=== PATIENT | female | born 1945 | race Caucasian/White ===

== ENCOUNTER 2016-06-14 09:33 | Inpatient (IN) | payer MEDICARE, OTHER ==
[~2016-06-14] VITALS: Ht 147.3 cm; Wt 67.1 kg
[~2016-06-14 09:33] MED LIST: /ACETCOD2T PO; /TAMS4CA PO; ACET50TAOT PO; BACITAB3 PO; BUDE3CAP PO; CANASA; CENT1TAB PO; CETI10TA PO; CIPR500T89 PO; CODE30TA3 PO; COUM2.5T11 PO; COUM7.5T PO; DEMA20TA6 PO; FERR325T3 PO; FLAG500T PO; FLUO20CA8 PO; FURO20TA2; FURO20TA2 PO; GLUC500T; LASI20TA PO; LIAL1.2T PO; LOMO2.5T PO; LOPE2CA PO; LOPE2TAB PO; LORA10TA2 PO; MAGN64TASA PO; MESA24CASA PO; MUCI600T34 PO; OMEP40CA2 PO; PAXI20TA3 PO; PERC5TAB6 PO; POTA10CA PO; POTA10CA32 PO; PRED10TA PO; PROBCAP4 PO; PROZ20CA; QUESTRAN; RISATAB3 PO; SIMV10TA2; SULF500T2 PO; TESS100C PO; THERGRAN; TRAM50TA2 PO; TYLE167L PO; TYLE325T5 PO; VANC250C2 PO; VIBR100C PO; VICO5TAB; VITAMIN D50000 UNT; VITATAB11 PO; VITMTA PO
[2016-06-14] MEDS ORDERED: ONDANSETRON 4MG/2ML VIAL (J2405) As Ordered ONE (10:11)
[2016-06-14] MEDS ORDERED: MORPHINE 2 MG/ML 1ML SYRINGE As Ordered ONE (10:11)
[2016-06-14 10:17] LABS: BASO % 0.6 % (0.0-1.0); EOS # 0.2 K/mm3 (0.0-0.50); EOS % 2.9 % (0.0-3.0); LARGE UNSTAINED CELL # 0.2 K/mm3 (0.0-0.4); LARGE UNSTAINED CELL % 2.3 % (0.0-4.0); LYMPH # 1.4 K/mm3 (1.5-4.5); LYMPH % 18.9 % (24.0-44.0); MEAN CORPUSCULAR HEMOGLOBIN 26.8 pg (27.0-33.0); MEAN CORPUSCULAR HGB CONC 31.7 g/dl (32.0-36.5); MEAN CORPUSCULAR VOLUME 84.5 fl (80.0-96.0); MONO # 0.5 K/mm3 (0.0-0.8); MONO % 6.3 % (0.0-5.0); NEUTROPHILS % 69.1 % (36.0-66.0); PLATELET COUNT, AUTOMATED 534 k/mm3 (150-450); RED CELL DISTRIBUTION WIDTH 15.2 % (11.5-14.5); WHITE BLOOD COUNT 7.2 K/mm3 (4.0-10.0)
[2016-06-14 10:23] LABS: INR 1.52
--- NOTE | 2016-06-14 10:37 | REP ---
Portable chest x-ray: Single view. History: Shortness of breath. Comparison chest x-ray April 04, 2016. Findings: Right hemidiaphragm remains moderately elevated unchanged. EKG monitoring electrodes are seen. The lungs are otherwise clear. Pleural angles are sharp. Heart size is normal. The aorta is somewhat tortuous. Impression: Moderate elevation of the right hemidiaphragm unchanged from comparison study. Otherwise no acute disease. Signed by Leif Rico MD 06/14/2016 01:41 P
[2016-06-14 10:47] LABS: ALBUMIN 1.9 GM/DL (3.2-5.2); ALBUMIN/GLOBULIN RATIO 0.51 (1.00-1.93); ALKALINE PHOSPHATASE 158 U/L (45-117); ALT/SGPT 12 U/L (12-78); AMYLASE 79 U/L (25-115); ANION GAP 10 MEQ/L (8-16); AST/SGOT 11 U/L (15-37); BILIRUBIN,DIRECT 0.1 MG/DL (0.0-0.2); BILIRUBIN,TOTAL 0.3 MG/DL (0.2-1.0); BLOOD UREA NITROGEN 6 MG/DL (7-18); CALCIUM LEVEL 8.8 MG/DL (8.8-10.2); CARBON DIOXIDE LEVEL 27 MEQ/L (21-32); CHLORIDE LEVEL 108 MEQ/L (98-107); CREATININE FOR GFR 0.85 MG/DL (0.55-1.02); GLOMERULAR FILTRATION RATE > 60.0 (>45); GLUCOSE, FASTING 98 MG/DL (80-110); POTASSIUM SERUM 3.4 MEQ/L (3.5-5.1); SODIUM LEVEL 145 MEQ/L (136-145); TOTAL PROTEIN 5.6 GM/DL (6.4-8.2)
[2016-06-14] MEDS ORDERED: ISOVUE-370 76% 100ML VIAL (Q9967) As Ordered ONE (11:26)
[2016-06-14] MEDS ORDERED: TORS10TA3 PO (11:52)
[2016-06-14] MEDS ORDERED: WARF-21 PO (11:52)
--- NOTE | 2016-06-14 12:07 | REP ---
CT PULMONARY ANGIOGRAM: With IV contrast. HISTORY: Shortness of breath. COMPARISON STUDIES: April 04, 2016 Contrast dose: 100 mL of Isovue [address] TECHNIQUE: Helical scanning is acquired and overlapping 1.5 mm and contiguous 3 mm axial images are reformatted. In addition, a 3D work station is deployed to generate thick slab maximum intensity projection images in sagittal and coronal imaging projections. CT PULMONARY ANGIOGRAPHIC FINDINGS: There is good opacification of the pulmonary arterial tree. There is a large saddle embolus centrally occupying both the right and left main pulmonary arteries. The embolus extends in the left lower lobe pulmonary arterial branches centrally. In a similar in morphology although smaller in size than the massive saddle embolus visible on the recent prior study of April 04, 2016. The thoracic aorta enhances homogeneously and is normal in caliber and contour. No infiltrate is seen in the lung spence. There is no evidence of pleural or pericardial effusion. No hilar or mediastinal mass or adenopathy is seen. The gallbladder is dilated containing multiple large calculi and showing mild wall thickening. This is unchanged as well from the comparison study. Visualized upper abdominal structures are otherwise unremarkable. IMPRESSION: Large saddle embolus again noted similar morphologically except smaller in size, to that seen on the April 04, 2016 prior study. Recurrent saddle embolus versus subacute. Also noted is a dilated thick-walled gallbladder containing multiple large stones. This is unchanged from the prior study. Signed by Leif Rico MD 06/14/2016 01:43 P
--- NOTE | 2016-06-14 12:44 | REP ---
CT study of the abdomen and pelvis without and with IV contrast: Without oral contrast. History: Abdominal pain, left flank pain. Comparison CT study is from April 03, 2016. CT contrast dose: 100 mL of intravenous Isovue [address] findings: There are scattered surgical clips in the left abdomen. The lung bases are clear. Filling defect noted in the left lower lobe pulmonary artery tree as described on today's CT pulmonary angiogram consistent with pulmonary embolus. There is an eventration of the right hemidiaphragm as before. There is marked dilation of the gallbladder measuring up to 14 cm. There are multiple calcified gallstones in the gallbladder. The degree of distension is similar to that seen in April 03, 2016 images. There is evidence of a gallstone in the cystic duct in the portal region which measures 2 cm in greatest diameter. This is also visible on the prior study and is felt to be unchanged. No focal hepatic mass lesion is seen. No splenic abnormalities observed. No pancreatic lesion is seen. The common bile duct does not appear to be dilated. There are intrarenal calculi at the corticomedullary junction of both kidneys in multiple locations. The largest of these in the right kidney is in the lower pole measuring 3 mm. There is a 3 mm interpolar calculus on the left. There are four or five calculi in the right kidney and seven to eight calculi in the left. No hydronephrosis is seen on either side. This finding is essentially unchanged. Normal caliber aorta is seen. No retroperitoneal mass or adenopathy is seen. There is some thickening and enhancement of the wall of the colon throughout. No colonic distension is seen. This may reflect enterocolitis. There is a left colonic anastomoses in the left lower quadrant. No uterine or adnexal abnormality is seen. No urinary bladder pathology is noted. There appears to be a right inguinal hernia transmitting a lobule of intra-abdominal fat. Impression: 1. Pulmonary embolus visible in the left lower lobe pulmonary arteries on the abdominal CT study. 2. Hydrops of the gallbladder with multiple large gallstones including one large gallstone which appears to be impacted in the region of the cystic duct. No other biliary dilation seen. 3. Bilateral intrarenal nephrolithiasis again seen without hydronephrosis. 4. Status post left colonic resection and reanastomosis. 5. Evidence of enterocolitis with enhancement and mural thickening throughout the colon. No obstructive lesion. 6. Small right inguinal hernia suspected transmitting a lobule of abdominal fat. Signed by Leif Rico MD 06/14/2016 01:43 P
[2016-06-14] MEDS: NS 1,000 ML IV SCH (13:52)
[2016-06-14] MEDS ORDERED: HYDROCORTISONE 100 MG/2 ML VIAL (J1720) IV SCH (14:00)
[2016-06-14] MEDS ORDERED: ACETAMINOPHEN TAB 650MG DOSE (2X325MG) PO PRN (14:00)
[2016-06-14] MEDS ORDERED: CIPROFLOXACIN 400 MG in APPROPRIATE DILUENT 1 EA IV SCH (15:00)
--- NOTE | 2016-06-14 15:01 | HPEPDOC ---
Medical History and Physical Date of Admission Jun 14, 2016 at 12:57 History and Physical ATTENDING: Dr. Tidwell PCP: Dr Grazyna Long. CC: Abdominal pain HPI: 70yoF with a past medical history significant for ulcerative colitis, C. difficile 04/07, iron deficiency anemia, pulmonary embolism 04/07 on Coumadin anticoagulation who reports a 2 day history of increasing abdominal pain and loose stools. She states she has had 23 loose stools in the past 2 days. She denies fevers or chills. She is feeling weak. Denies any BERGER, CP, SOB, cough, palpitations, changes in bladder habits. Upon presentation to the hospital the patient was found to have , thus the hospitalist team was consulted. PMHx: Ulcerative colitis Iron deficiency anemia C. difficile colitis 04/07 Hiatal hernia Hemorrhoids GERD CHF. 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 One daughter . Unexpected deaths due to medical reasons: None. ROS: As noted in HPI, otherwise 11pt ROS of systems reviewed and unremarkable. PE: GEN: 70yoF, appears stated age. No acute distress lying flat on stretcher. Alert and oriented x 3. Pleasant, interactive. HEENT: Normocephalic, atraumatic. Pupils are equal, round, and reactive to light. Extraocular movements are intact. No nystagmus appreciated. Sclera are nonicteric. Conjunctiva without injection. Nose midline. Nasal turbinates without bogginess. EACs both patent BL. TMs both visualized and alvarez with good cone of light, no bulging or erythema. No facial asymmetry. Dry mucous membranes. Dentition fair. Pharynx pink and moist, no cobblestoning. Neck supple , trachea midline. No lymphadenopathy or thyromegaly appreciated. CHEST: Regular rate and rhythm, +S1, +S2 LUNGS: Clear to auscultation bilaterally. No wheezes, rales, or rhonchi. Breathing appears symmetric and easy. Patient is speaking in full sentences. No accessory muscle use. ABD: Flat, soft, tender to palpation across the upper abdomen and left upper and lower quadrant, non-distended. +Bowel sounds hypoactive. No rebound or guarding. No costovertebral angle tenderness. EXT: Pulses 2+ bilaterally dorsalis pedis and radial. No lower extremity edema appreciated. SKIN: Annetta, dry, warm. Capillary refill <2sec. No rashes. NEURO: Alert and oriented x 3. Cranial nerves III-XII are intact. No focal deficits appreciated. CXR: Moderate elevation of the right hemidiaphragm unchanged from comparison study. Otherwise no acute disease. CTA: Large saddle embolus again noted similar morphologically except smaller in size, to that seen on the April 04, 2016 prior study. Recurrent saddle embolus versus subacute. Also noted is a dilated thick-walled gallbladder containing multiple large stones. This is unchanged from the prior study. EKG: Sinus rhythm, [address] A&P 1. Pulmonary embolus visible in the left lower lobe pulmonary arteries on the abdominal CT study. 2. Hydrops of the gallbladder with multiple large gallstones including one large gallstone which appears to be impacted in the region of the cystic duct. No other biliary dilation seen. 3. Bilateral intrarenal nephrolithiasis again seen without hydronephrosis. 4. Status post left colonic resection and reanastomosis. 5. Evidence of enterocolitis with enhancement and mural thickening throughout the colon. No obstructive lesion. 6. Small right inguinal hernia suspected transmitting a lobule of abdominal fat. GI panel pending. A&P: 70yoF with a past medical history significant for ulcerative colitis, C. difficile 04/07, iron deficiency anemia, pulmonary embolism 04/07 on Coumadin anticoagulation who reports a 2 day history of increasing abdominal pain and loose stools. She states she has had 23 loose stools in the past 2 days. The patient will be admitted to PCU for at least [address] Tidwell's service. The patient is reviewed and discussed with Dr. Darling. The patient was also reviewed/discussed and examined with Dr. Sarah. 1. Abdominal pain/likely infectious colitis. GI panel pending to rule out recurrent C. difficile colitis. This is not felt consistent with ischemic colitis at this time. Recheck lactic acid and approximately 2 hours. IV fluids normal saline at 125 mL per hour. Nothing by mouth. Begin IV Cipro/Flagyl. Gen. surgery will continue to follow the patient, Dr. Araujo will follow the patient as he is familiar with the patient. 2. History of pulmonary embolism. Continue Coumadin 3.25 mg by mouth daily. Patient has had poor intake recently. INR is noted to be 1.52. Recheck INR daily. Adjust dose accordingly. 3. History of ulcerative colitis. Further recommendations as per general surgery. Dr. Araujo is familiar with the patient. 4. History of CHF. Torsemide is on hold at this time. 5. History of iron deficiency anemia. 6. Hypokalemia. Potassium is noted to be 3.4. PO supplement requested. DVT prophylaxis. On Coumadin. The patient is a Full Code. Vital Signs 113/59 68 18 99% room air 97.9 Laboratory Data Labs 24H Laboratory Tests 2 06/14/16 10:04: Activated Partial Thromboplast Time 28.1, Aspartate Amino Transf (AST/SGOT) 11L , Alanine Aminotransferase (ALT/SGPT) 12, Alkaline Phosphatase 158H, Total Bilirubin 0.3, Direct Bilirubin 0.1, Albumin 1.9L, Albumin/Globulin Ratio 0.51L , Amylase Level 79, Anion Gap 10, White Blood Count 7.2, Red Blood Count 4.56, Hemoglobin 12.2, Hematocrit 38.5, Mean Corpuscular Volume 84.5, Mean Corpuscular Hemoglobin 26.8L, Mean Corpuscular Hemoglobin Concent 31.7L, Red Cell Distribution Width 15.2H, Platelet Count 534H, Neutrophils (%) (Auto) 69.1H , Lymphocytes (%) (Auto) 18.9L, Monocytes (%) (Auto) 6.3H, Eosinophils (%) (Auto ) 2.9, Basophils (%) (Auto) 0.6, Neutrophils # (Auto) 5.0, Lymphocytes # (Auto) 1.4L, Monocytes # (Auto) 0.5, Eosinophils # (Auto) 0.2, Basophils # (Auto) 0.0, Calcium Level 8.8, Creatine Kinase MB 1.0, Creatine Kinase MB Relative Index 3.44, D-Dimer, Quantitative 1347.7H, Glomerular Filtration Rate > 60.0, Lactic Acid Level 3.2*H, Large Unclassified Cells # 0.2, Large Unclassified Cells % 2.3 , Lipase 132, Prothromb Time International Ratio 1.52, Prothrombin Time 18.4H, Total Creatine Kinase 29, Total Protein 5.6L, Troponin I < 0.02 CBC/BMP Laboratory Tests 06/14/16 10:04 Red Blood Count 4.56, Mean Corpuscular Volume 84.5, Mean Corpuscular Hemoglobin 26.8 L, Mean Corpuscular Hemoglobin Concent 31.7 L, Red Cell Distribution Width 15.2 H, Neutrophils (%) (Auto) 69.1 H, Lymphocytes (%) (Auto) 18.9 L, Monocytes (%) (Auto) 6.3 H, Eosinophils (%) (Auto) 2.9, Basophils (%) (Auto) 0.6, Neutrophils # (Auto) 5.0, Lymphocytes # (Auto) 1.4 L, Monocytes # (Auto) 0.5, Eosinophils # (Auto) 0.2, Basophils # (Auto) 0.0 Microbiology Microbiology 06/14/16 Influenza Virus Type A Antigen - Final, Complete 06/14/16 Influenza Virus Type B Antigen - Final, Complete Home Medications Scheduled Ferrous Sulfate (Ferrous Sulfate) 325 Mg Tab 325 MG PO BID Fluoxetine Hcl (Fluoxetine) 20 Mg Cap 20 MG PO DAILY Lactobacillus Acidophilus (Bacid) 1 Tab Tab 1 TAB PO DAILY Multivitamins *[facility] STOCKED* (Thera M Plus *[facility] STOCKED*) 1 Tab Tab 1 TAB PO DAILY Sulfasalazine (Sulfasalazine) 500 Mg Tab 500 MG PO QID Torsemide (Torsemide) 10 Mg Tab 10 MG PO DAILY TAKE SECOND DOSE IF WEIGHT IS UP MORE THEN 2LBS Warfarin Sod (Warfarin Sodium) 7.5 Mg Tab 3.75 MG PO QPM Allergies Coded Allergies: No Known Drug Allergy (Verified Allergy, Unknown, 08/26/12) Claudia Damon Jun 14, 2016 15:01
[2016-06-14] MEDS: metroNIDAZOLE 500 MG in APPROPRIATE DILUENT 1 EA IV SCH ×2 (16:00→23:00)
[2016-06-14] MEDS ORDERED: POTASSIUM CHLORIDE 10 MEQ SR TABLET PO SCH (16:00)
[2016-06-14] MEDS ORDERED: CIPROFLOXACIN/D5W 400 MG/200 ML BAG (J0744) As Ordered ONE (16:19)
[2016-06-14] MEDS: WARFARIN SOD 7.5 MG TAB PO SCH (17:00)
--- NOTE | 2016-06-14 17:31 | ECGEPIP ---
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
[2016-06-14] MEDS ORDERED: metroNIDAZOLE/NACL 500MG(5MG/ML)100 ML BAG (S0030) As Ordered ONE (17:38)
--- NOTE | 2016-06-14 18:30 | EDDOCDS ---
Physician Documentation [facility] Name: Munira Guerra Age: 70 yrs Sex: Female : 1945 Arrival Date: 06/14/2016 Time: 09:33 Bed Admit Hold Private MD: Roshan Long H. Disposition: 06/14 12:11 Critical Care:. ml Disposition: 06/14/16 12:09 Hospitalization ordered by Ellyn Darling for Inpatient Admission. Preliminary diagnosis are Abdominal and pelvic pain, Other ulcerative colitis - rule out c difficule infection, Pulmonary embolism - known, does not appear to be a change, Diarrhea, unspecified - with elevated lactic acid, Dehydration, Cholelithiasis. - Bed requested for PCU. - Status is Inpatient Admission. ms18 - Condition is Stable. - Problem is new. - Symptoms are unchanged. Historical: - Allergies: no known allergies; - Home Meds: 1. ferrous sulfate 325 mg (65 mg iron) Oral tab daily (Last dose: 06/14/2016 07:00) 2. warfarin 3.25mg Oral tab once daily (Last dose: 06/13/2016 17:00) 3. torsemide 20 mg oral tab 1 tab once daily (Last dose: 06/14/2016 07:00) 4. sulfasalazine 500 mg Oral TbEC 1 tab 4 times per day (Last dose: 06/14/2016 07:00) - PMHx: Anemia; CHF; Depression; GERD; Hernia; Ulcerative Colitis; PE; CDIFF; - PSHx: Colectomy, Partial; - Social history: Smoking status: Patient states was never smoker of tobacco. No barriers to communication noted, Speaks appropriately for age. - Family history: Not pertinent. - : The pt / caregiver states he / she is not on anticoagulants. Home medication list is obtained from the patient. - Exposure Risk Screening:: None identified. Vital Signs: 09:36 BP 128 / 67 RA Sitting (auto/reg); Pulse 103; Resp 18; Temp 97.9(O); Pulse Ox 99% on jrd R/A; Weight 62.14 kg / 137 lbs; Height 4 ft. 10 in. (147.32 cm); Pain 7/10; 10:11 BP 118 / 64 (auto/); ms18 10:11 Pulse 80 MON; Pulse Ox 99% ; ms18 10:26 BP 119 / 69 (auto/); ms18 10:26 Pulse 82 MON; Pulse Ox 98% ; ms18 10:41 BP 117 / 57 (auto/); ms18 10:41 Pulse 70 MON; Pulse Ox 98% ; ms18 10:56 BP 128 / 59 (auto/); ms18 10:56 Pulse 68 MON; Pulse Ox 98% ; ms18 11:11 BP 113 / 59 (auto/); ms18 11:11 Pulse 68 MON; Resp 18; Pulse Ox 99% ; ms18 11:26 BP 121 / 61 (auto/); ms18 11:26 Pulse 68 MON; Pulse Ox 98% ; ms18 11:43 BP 136 / 59 (auto/); ms18 11:45 Pulse 76 MON; Pulse Ox 98% ; ms18 11:56 BP 121 / 56 (auto/); ms18 11:56 Pulse 76 MON; Pulse Ox 99% ; ms18 12:11 BP 123 / 60 (auto/); ms18 12:11 Pulse 76 MON; Pulse Ox 99% ; ms18 12:26 BP 134 / 63 (auto/); ms18 12:26 Pulse 72 MON; Pulse Ox 98% ; ms18 12:32 Temp 99.6(TE); ms18 12:41 BP 125 / 68 (auto/); ms18 12:41 Pulse 74 MON; Pulse Ox 98% ; ms18 13:11 BP 156 / 73 (auto/); ms18 13:11 Pulse 80 MON; Pulse Ox 100% ; ms18 13:26 BP 136 / 60 (auto/); ms18 13:26 Pulse 76 MON; Pulse Ox 98% ; ms18 13:41 BP 124 / 60 (auto/); ms18 13:41 Pulse 76 MON; Pulse Ox 99% ; ms18 13:55 Pulse 76 MON; Pulse Ox 99% ; ms18 13:56 BP 122 / 62 (auto/); ms18 14:10 Pulse 74 MON; Pulse Ox 99% ; ms18 14:11 BP 113 / 57 (auto/); ms18 14:25 Pulse 72 MON; Pulse Ox 98% ; ms18 14:26 BP 128 / 58 (auto/); ms18 14:40 Pulse 72 MON; Pulse Ox 98% ; ms18 14:41 BP 130 / 55 (auto/); ms18 14:55 Pulse 72 MON; Pulse Ox 98% ; ms18 14:56 BP 125 / 60 (auto/); ms18 15:11 Pulse 74 MON; Pulse Ox 98% ; ms18 15:13 BP 123 / 59 (auto/); ms18 15:26 Pulse 72 MON; Pulse Ox 99% ; ms18 15:27 BP 118 / 54 (auto/); ms18 15:43 Pulse 74 MON; Pulse Ox 98% ; ms18 15:43 BP 121 / 58 (auto/); ms18 15:44 Pulse 74 MON; Pulse Ox 98% ; ms18 15:58 BP 110 / 54 (auto/); ms18 15:59 Pulse 74 MON; Pulse Ox 98% ; ms18 16:13 BP 115 / 59 (auto/); ms18 16:14 Pulse 74 MON; Pulse Ox 98% ; ms18 16:28 BP 127 / 55 (auto/); ms18 16:28 Pulse 82 MON; Pulse Ox 99% ; ms18 16:46 BP 140 / 62 (auto/); Pulse 76; Resp 18; Temp 97; Pulse Ox 98% ; Pain 6/10; ms18 16:58 BP 123 / 56 (auto/); ms18 16:59 Pulse 72 MON; Pulse Ox 97% ; ms18 17:13 BP 118 / 57 (auto/); ms18 17:14 Pulse 72 MON; Pulse Ox 97% ; ms18 17:28 BP 109 / 56 (auto/); ms18 17:29 Pulse 72 MON; Pulse Ox 98% ; ms18 17:43 BP 118 / 56 (auto/); ms18 17:44 Pulse 70 MON; Pulse Ox 97% ; ms18 17:58 BP 112 / 66 (auto/); ms18 17:59 Pulse 72 MON; Pulse Ox 98% ; ms18 18:13 BP 124 / 67 (auto/); ms18 18:14 Pulse 68 MON; Pulse Ox 99% ; ms18 09:36 Body Mass Index 28.63 (62.14 kg, 147.32 cm) jrd MDM: 09:44 IV Saline Lock ordered. ml6 09:44 Undress patient appropriately for examination ordered. ml6 09:45 ECG WITH READING ER PHYS+CARDIAG ordered. EDMS 09:46 BMP Ordered. EDMS 09:46 CBC with Diff Ordered. EDMS 09:46 Lipase Ordered. EDMS 09:46 Liver Profile Ordered. EDMS 09:46 CIP Ordered. EDMS 09:46 D-Dimer Quant Ordered. EDMS 09:46 Troponin Ordered. EDMS 09:46 Chest, 1 View Ordered. EDMS 09:52 Stool samples ordered. ml 09:54 Lactic Acid (Aquino tube on ice) Ordered. EDMS 09:54 NS 0.9% 1000 ml IV at 250 mL/hr continuous ordered. ml 09:54 Ondansetron 4 mg IVP once ordered. ml 09:54 morphine 2 mg IVP once ordered. ml 09:54 Field Applications Specialist/Pulse Ox/q 15 min VS ordered. ml 09:54 Rhythm Strip to chart ordered. ml 09:55 GASTROINTESTINAL (GI) PANEL Ordered. EDMS 10:08 AMYLASE Ordered. EDMS 10:14 PT & APTT Ordered. EDMS 10:46 Misc. Nursing Order ordered. ml 11:10 BMP Reviewed. ml 11:10 CBC with Diff Reviewed. ml 11:10 Liver Profile Reviewed. ml 11:10 D-Dimer Quant Reviewed. ml 11:10 Lactic Acid (Aquino tube on ice) Reviewed. ml 11:10 PT & APTT Reviewed. ml 11:10 Lipase Reviewed. ml 11:10 CIP Reviewed. ml 11:10 Troponin Reviewed. ml 11:10 AMYLASE Reviewed. ml 11:10 Chest, 1 View Reviewed. ml 11:12 CT Chest Angio R/O PE Ordered. EDMS 11:21 CT ABD & PELVIS W/O FOL BY WIT Ordered. EDMS 11:26 Obtain sample by nasopharyngeal swab ordered. ml 11:27 -Influenza A&B Rapid Antigen - Nose Ordered. EDMS 11:32 BED REQUEST+ADM ordered. EDMS 12:59 Admission / Observation Status ordered. EDMS 13:31 LACTIC ACID LEVEL, LACTATE Ordered. EDMS 13:45 Financial registration complete. mm15 13:45 [facility] Payment Agreement was scanned into [employer] and attached to record. mm15 13:59 NPO DIET ordered. EDMS Administered Medications: 10:25 Drug: Ondansetron 4 mg [ondansetron HCl 2 mg/mL intravenous solution (2 mL)] Route: kc3 IVP; Site: left antecubital; 13:00 Follow up: Response: No Adverse Reaction ms18 10:25 Drug: morphine 2 mg [morphine 2 mg/mL intravenous cartridge (1 mL)] Route: IVP; Site: kc3 left antecubital; 13:00 Follow up: Response: No Adverse Reaction; Pain is decreased ms18 10:26 Drug: NS 0.9% 1000 ml [sodium chloride 0.9 % intravenous solution] Route: IV; Rate: 250 kc3 mL/hr; Site: left antecubital; 11:16 Follow up: IVF increased to bolus rate at this time per ED doctor's request ms18 12:36 Follow up: IV Status: Completed infusion; IV Intake: 1000ml ms18 Critical Care Time: 12:11 Critical care time: Bedside Care: 90 minutes, Consultation: 10 minutes. Total time: 100 ml minutes Signatures: Dispatcher [employer] EDMS Hyun Denson MD MD ml Luis Miguel Wallace, RN RN ml6 Faith Dumont RN RN [id number] Radha Chávez mm15 Robyn Soto RN RN ms18 Armando Batista RN RN mts Roxie Santos RN kc3 The chart was reviewed and I authenticate all verbal orders and agree with the evaluation and treatment provided.Corrections: (The following items were deleted from the chart) 09:54 09:54 GASTROINTESTINAL (GI) PANEL+JARET ordered. EDMS EDMS 10:07 09:44 Field Applications Specialist/Pulse Ox/q 30 min VS ordered. ml6 js13 10:08 09:53 AMYLASE+LAB ordered. EDMS EDMS 10:14 09:47 PT & APTT+LAB ordered. EDMS EDMS 11:21 11:12 CT ABD & PELVIS WITH CONTRAST+CT ordered. EDMS EDMS 11:21 11:14 CT ABD & PELVIS W/O CONTRAST+CT ordered. EDMS EDMS 12:36 11:31 Straight cath ordered. ml ms18 Attachments: 13:45 [facility] Payment Agreement [id number] MTDD
--- NOTE | 2016-06-14 18:30 | EDDOCDS ---
Nurse's Notes [facility] Name: Carter Vega Age: 70 yrs Sex: Female : 1945 Arrival Date: 06/14/2016 Time: 09:33 Bed Admit Hold Private MD: Roshan Long H. Diagnosis: Abdominal and pelvic pain;Other ulcerative colitis-rule out c difficule infection;Pulmonary embolism-known, does not appear to be a change;Diarrhea, unspecified-with elevated lactic acid;Dehydration;Cholelithiasis Presentation: 06/14 09:36 Red Flag criteria, patient assessed and taken directly to a bed. 6 09:41 Presenting complaint: Patient states: states SOB, shaking, lower abd pain, states has [facility] been having issues with c-diff and PEs since March. Adult Sepsis Screening: The patient does not have new or worsening altered mentation. Patient's respiratory rate is less than 22. Systolic blood pressure is greater than 100. Patient has a qSOFA score of 0- Negative Sepsis Screen. Suicide/Homicide risk assessment- the patient denies having any suicidal and/or homicidal ideations and does not present with any other emotional, behavioral or mental health complaints. 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 Transition of care: patient was not received from another setting of care. 09:41 Acuity: FELIZ Level 3 ml6 09:41 Method Of Arrival: Walkin/Carried/Asstd 6 Triage Assessment: 13:01 Respiratory: Onset: The symptoms/episode began/occurred. ms18 Historical: - Allergies: no known allergies; - Home Meds: 1. ferrous sulfate 325 mg (65 mg iron) Oral tab daily (Last dose: 06/14/2016 07:00) 2. warfarin 3.25mg Oral tab once daily (Last dose: 06/13/2016 17:00) 3. torsemide 20 mg oral tab 1 tab once daily (Last dose: 06/14/2016 07:00) 4. sulfasalazine 500 mg Oral TbEC 1 tab 4 times per day (Last dose: 06/14/2016 07:00) - PMHx: Anemia; CHF; Depression; GERD; Hernia; Ulcerative Colitis; PE; CDIFF; - PSHx: Colectomy, Partial; - Social history: Smoking status: Patient states was never smoker of tobacco. No barriers to communication noted, Speaks appropriately for age. - Family history: Not pertinent. - : The pt / caregiver states he / she is not on anticoagulants. Home medication list is obtained from the patient. - Exposure Risk Screening:: None identified. Screenin:09 Screening information is obtained from the patient. Fall risk: No risks identified. js13 Assistance ADL's: requires no assistance with activities of daily living. Abuse/DV Screen: The patient / caregiver reports he/she is: not in a situation that causes fear, pain or injury. Nutritional screening: No deficits noted. Advance Directives: There is no active DNR order. home support is adequate. Assessment: 10:08 General: Appears in no apparent distress, Behavior is appropriate for age, cooperative. js13 Pain: Pain currently is 3 out of 10 on a pain scale. Neurological: Level of Consciousness is awake, alert. Cardiovascular: Rhythm is sinus rhythm Chest pain is denied. Respiratory: Airway is patent Respiratory effort is even, unlabored, Respiratory pattern is regular, symmetrical, Breath sounds are clear. GI: Abdomen is flat, non- distended Bowel sounds present X 4 quads. Abd is soft and non tender. Derm: Skin is pink, warm & dry. 11:17 General: Appears in no apparent distress, comfortable, Behavior is appropriate for age, ms18 cooperative, pleasant. Neurological: Level of Consciousness is awake, alert, obeys commands, Oriented to person, place, time. Respiratory: Airway is patent Respiratory effort is even, unlabored, Respiratory pattern is regular, symmetrical. Derm: Skin is pink, warm & dry. 12:15 General: Appears in no apparent distress, comfortable, Behavior is appropriate for age, ms18 cooperative, pleasant. General: Pt in no acute distress. Will continue to monitor pt. Pain: Pain currently is 3 out of 10 on a pain scale. Neurological: Level of Consciousness is awake, alert, obeys commands, Oriented to person, place, time. Respiratory: Airway is patent Respiratory effort is even, unlabored, Respiratory pattern is regular, symmetrical. Derm: Skin is pink, warm & dry. 13:47 General: Appears in no apparent distress, comfortable, Behavior is appropriate for age, ms18 cooperative. General: Awaiting room assignment at this time. Neurological: No deficits noted. Respiratory: Airway is patent Respiratory effort is even, unlabored. Derm: Skin is pink, warm & dry. 14:50 General: Appears in no apparent distress, comfortable, Pt in no acute distress. VSS. ms18 Will continue to monitor pt. Awaiting room assignment at this time. . Neurological: Level of Consciousness is awake, alert, obeys commands, Oriented to person, place, time. Respiratory: Airway is patent Respiratory effort is even, unlabored. Derm: Skin is pink, warm & dry. 15:50 General: Pt in no acute distress. VSS. Will continue to monitor pt. ms18 17:17 General: Called PCU, room is in the process of being cleaned. Loli DOBBINS states that it ms18 should be approx 20 mins. 18:15 General: Appears in no apparent distress, comfortable, Behavior is appropriate for age, ms18 cooperative, pleasant. General: Pt can go to PCU at this time. . Neurological: Level of Consciousness is awake, alert, obeys commands, Oriented to person, place, time. Respiratory: Airway is patent Respiratory effort is even, unlabored. Derm: Skin is pink, warm & dry. Vital Signs: 09:36 BP 128 / 67 RA Sitting (auto/reg); Pulse 103; Resp 18; Temp 97.9(O); Pulse Ox 99% on jrd R/A; Weight 62.14 kg; Height 4 ft. 10 in. (147.32 cm); Pain 7/10; 10:11 BP 118 / 64 (auto/); ms18 10:11 Pulse 80 MON; Pulse Ox 99% ; ms18 10:26 BP 119 / 69 (auto/); ms18 10:26 Pulse 82 MON; Pulse Ox 98% ; ms18 10:41 BP 117 / 57 (auto/); ms18 10:41 Pulse 70 MON; Pulse Ox 98% ; ms18 10:56 BP 128 / 59 (auto/); ms18 10:56 Pulse 68 MON; Pulse Ox 98% ; ms18 11:11 BP 113 / 59 (auto/); ms18 11:11 Pulse 68 MON; Resp 18; Pulse Ox 99% ; ms18 11:26 BP 121 / 61 (auto/); ms18 11:26 Pulse 68 MON; Pulse Ox 98% ; ms18 11:43 BP 136 / 59 (auto/); ms18 11:45 Pulse 76 MON; Pulse Ox 98% ; ms18 11:56 BP 121 / 56 (auto/); ms18 11:56 Pulse 76 MON; Pulse Ox 99% ; ms18 12:11 BP 123 / 60 (auto/); ms18 12:11 Pulse 76 MON; Pulse Ox 99% ; ms18 12:26 BP 134 / 63 (auto/); ms18 12:26 Pulse 72 MON; Pulse Ox 98% ; ms18 12:32 Temp 99.6(TE); ms18 12:41 BP 125 / 68 (auto/); ms18 12:41 Pulse 74 MON; Pulse Ox 98% ; ms18 13:11 BP 156 / 73 (auto/); ms18 13:11 Pulse 80 MON; Pulse Ox 100% ; ms18 13:26 BP 136 / 60 (auto/); ms18 13:26 Pulse 76 MON; Pulse Ox 98% ; ms18 13:41 BP 124 / 60 (auto/); ms18 13:41 Pulse 76 MON; Pulse Ox 99% ; ms18 13:55 Pulse 76 MON; Pulse Ox 99% ; ms18 13:56 BP 122 / 62 (auto/); ms18 14:10 Pulse 74 MON; Pulse Ox 99% ; ms18 14:11 BP 113 / 57 (auto/); ms18 14:25 Pulse 72 MON; Pulse Ox 98% ; ms18 14:26 BP 128 / 58 (auto/); ms18 14:40 Pulse 72 MON; Pulse Ox 98% ; ms18 14:41 BP 130 / 55 (auto/); ms18 14:55 Pulse 72 MON; Pulse Ox 98% ; ms18 14:56 BP 125 / 60 (auto/); ms18 15:11 Pulse 74 MON; Pulse Ox 98% ; ms18 15:13 BP 123 / 59 (auto/); ms18 15:26 Pulse 72 MON; Pulse Ox 99% ; ms18 15:27 BP 118 / 54 (auto/); ms18 15:43 Pulse 74 MON; Pulse Ox 98% ; ms18 15:43 BP 121 / 58 (auto/); ms18 15:44 Pulse 74 MON; Pulse Ox 98% ; ms18 15:58 BP 110 / 54 (auto/); ms18 15:59 Pulse 74 MON; Pulse Ox 98% ; ms18 16:13 BP 115 / 59 (auto/); ms18 16:14 Pulse 74 MON; Pulse Ox 98% ; ms18 16:28 BP 127 / 55 (auto/); ms18 16:28 Pulse 82 MON; Pulse Ox 99% ; ms18 16:46 BP 140 / 62 (auto/); Pulse 76; Resp 18; Temp 97; Pulse Ox 98% ; Pain 6/10; ms18 16:58 BP 123 / 56 (auto/); ms18 16:59 Pulse 72 MON; Pulse Ox 97% ; ms18 17:13 BP 118 / 57 (auto/); ms18 17:14 Pulse 72 MON; Pulse Ox 97% ; ms18 17:28 BP 109 / 56 (auto/); ms18 17:29 Pulse 72 MON; Pulse Ox 98% ; ms18 17:43 BP 118 / 56 (auto/); ms18 17:44 Pulse 70 MON; Pulse Ox 97% ; ms18 17:58 BP 112 / 66 (auto/); ms18 17:59 Pulse 72 MON; Pulse Ox 98% ; ms18 18:13 BP 124 / 67 (auto/); ms18 18:14 Pulse 68 MON; Pulse Ox 99% ; ms18 09:36 Body Mass Index 28.63 (62.14 kg, 147.32 cm) jrd Vitals: 09:36 Log In Time: June 14, 2016 at 09:27. RN notified that patient meets Red Flag jrd criteria. 09:36 RN notified that patient meets Red Flag criteria. jrd ED Course: 09:34 Patient visited by Niam Seaman PCA. jrd 09:34 Patient moved to Waiting jrd 09:35 Patient moved to I7 / 29 hs1 09:36 Roshan Long is Private Physician. jrd 09:36 Patient moved to Waiting jrd 09:36 Patient moved to 13 ml6 09:37 Patient visited by Nima Seaman PCA. jrd 09:43 Triage Initiated ml6 09:46 Hyun Denson MD is Attending Physician. ml 09:46 Patient visited by Hyun Denson MD. ml 10:00 Accompanied by Family Member, Patient has correct armband on for positive ct3 identification. Placed in gown. Bed in low position. Call light in reach. Side rails up X2. groundwater monitoring technician on. Pulse ox on. NIBP on. 10:00 EKG done. (by ED staff). Reviewed by Hyun Denson MD. ct3 10:07 CIP Sent. js13 10:07 D-Dimer Quant Sent. js13 10:07 Troponin Sent. js13 10:07 Lactic Acid (Aquino tube on ice) Sent. js13 10:07 BMP Sent. js13 10:07 CBC with Diff Sent. js13 10:07 Lipase Sent. js13 10:07 Liver Profile Sent. js13 10:09 Patient visited by Leatha Cabezas PCA. ct3 10:09 The patient / caregiver is instructed regarding the plan of care and ED course. js13 10:09 Inserted saline lock: 18 gauge in left antecubital area and blood collected. The js13 patient tolerated the procedure well. No procedures done that require assistance. Labs drawn. (by ED staff). Sent per order to lab. Labs/Blood culture drawn. 10:10 Patient visited by Faith Dumont RN. js13 10:20 PT & APTT Sent. ml6 10:47 Chest, 1 View Returned. EDMS 10:48 Patient visited by Ava Franklin PCA. jlf 11:11 Property :Personal belongings accompany Pt. ms18 11:16 Patient visited by Robyn Soto RN. ms18 11:51 Patient visited by Robyn Soto RN. ms18 12:04 -Influenza A&B Rapid Antigen - Nose Sent. ms18 12:08 Ellyn Darling is Hospitalizing Provider. ml 12:25 CT Chest Angio R/O PE Returned. EDMS 12:57 Patient visited by Robyn Soto RN. ms18 12:58 CT ABD & PELVIS W/O FOL BY WIT Returned. EDMS 12:59 Robyn Soto,RN is Primary Nurse. ms18 13:45 [facility] Payment Agreement was scanned into [employer] and attached to record. mm15 13:47 Patient visited by Robyn Soto RN. ms18 14:07 Chest, 1 View Returned. EDMS 15:17 Patient moved to Admit Hold js13 15:23 Patient visited by Robyn Soto RN. ms18 16:55 GASTROINTESTINAL (GI) PANEL Sent. ms18 17:17 Patient visited by Robyn Soto RN. ms18 17:50 EKG-ADULT Returned. EDMS 18:15 Patient visited by Robyn Soto RN. ms18 Administered Medications: 10:25 Drug: Ondansetron 4 mg [ondansetron HCl 2 mg/mL intravenous solution (2 mL)] Route: kc3 IVP; Site: left antecubital; 13:00 Follow up: Response: No Adverse Reaction ms18 10:25 Drug: morphine 2 mg [morphine 2 mg/mL intravenous cartridge (1 mL)] Route: IVP; Site: kc3 left antecubital; 13:00 Follow up: Response: No Adverse Reaction; Pain is decreased ms18 10:26 Drug: NS 0.9% 1000 ml [sodium chloride 0.9 % intravenous solution] Route: IV; Rate: 250 kc3 mL/hr; Site: left antecubital; 11:16 Follow up: IVF increased to bolus rate at this time per ED doctor's request ms18 12:36 Follow up: IV Status: Completed infusion; IV Intake: 1000ml ms18 Intake: 12:36 IV: 1000.00ml; Total: 1000.00ml. ms18 Order Results: Lab Order: [facility]; SPEC'M 06/14/16 10:04 Test: GLUCOSE, FASTING; Value: 98; Range: 80-110; Units: MG/DL; Status: F Test: BLOOD UREA NITROGEN; Value: 6; Range: 7-18; Abnormal: Below low normal; Units: MG/DL; Status: F Test: CREATININE FOR GFR; Value: 0.85; Range: 0.55-1.02; Units: MG/DL; Status: F Test: GLOMERULAR FILTRATION RATE; Value: > 60.0; Range: >45; Status: F Test: SODIUM LEVEL; Value: 145; Range: 136-145; Units: MEQ/L; Status: F Test: POTASSIUM SERUM; Value: 3.4; Range: 3.5-5.1; Abnormal: Below low normal; Units: MEQ/L; Status: F Test: CHLORIDE LEVEL; Value: 108; Range: 98-107; Abnormal: Above high normal; Units: MEQ/L; Status: F Test: CARBON DIOXIDE LEVEL; Value: 27; Range: 21-32; Units: MEQ/L; Status: F Test: ANION GAP; Value: 10; Range: 8-16; Units: MEQ/L; Status: F Test: CALCIUM LEVEL; Value: 8.8; Range: 8.8-10.2; Units: MG/DL; Status: F Test Note: ; Units are mL/min/1.73 m2 Chronic Kidney Disease Staging per NKF: Stage I & II GFR >=60 Normal to Mildly Decreased Stage III GFR 30-59 Moderately Decreased Stage IV GFR 15-29 Severely Decreased Stage V GFR <15 Very Little GFR Left ESRD GFR <15 on MECHANICAL PROJECT MANAGER Lab Order: CBC with Diff; SPEC'M 06/14/16 10:04 Test: WHITE BLOOD COUNT; Value: 7.2; Range: 4.0-10.0; Units: K/mm3; Status: F Test: RED BLOOD COUNT; Value: 4.56; Range: 4.00-5.40; Units: M/mm3; Status: F Test: HEMOGLOBIN; Value: 12.2; Range: 12.0-16.0; Units: g/dl; Status: F Test: HEMATOCRIT; Value: 38.5; Range: 36.0-47.0; Units: %; Status: F Test: MEAN CORPUSCULAR VOLUME; Value: 84.5; Range: 80.0-96.0; Units: fl; Status: F Test: MEAN CORPUSCULAR HEMOGLOBIN; Value: 26.8; Range: 27.0-33.0; Abnormal: Below low normal; Units: pg; Status: F Test: MEAN CORPUSCULAR HGB CONC; Value: 31.7; Range: 32.0-36.5; Abnormal: Below low normal; Units: g/dl; Status: F Test: RED CELL DISTRIBUTION WIDTH; Value: 15.2; Range: 11.5-14.5; Abnormal: Above high normal; Units: %; Status: F Test: PLATELET COUNT, AUTOMATED; Value: 534; Range: 150-450; Abnormal: Above high normal; Units: k/mm3; Status: F Test: NEUTROPHILS %; Value: 69.1; Range: 36.0-66.0; Abnormal: Above high normal; Units: %; Status: F Test: LYMPH %; Value: 18.9; Range: 24.0-44.0; Abnormal: Below low normal; Units: %; Status: F Test: MONO %; Value: 6.3; Range: 0.0-5.0; Abnormal: Above high normal; Units: %; Status: F Test: EOS %; Value: 2.9; Range: 0.0-3.0; Units: %; Status: F Test: BASO %; Value: 0.6; Range: 0.0-1.0; Units: %; Status: F Test: LARGE UNSTAINED CELL %; Value: 2.3; Range: 0.0-4.0; Units: %; Status: F Test: NEUTROPHILS #; Value: 5.0; Range: 1.8-7.7; Units: K/mm3; Status: F Test: LYMPH #; Value: 1.4; Range: 1.5-4.5; Abnormal: Below low normal; Units: K/mm3; Status: F Test: MONO #; Value: 0.5; Range: 0.0-0.8; Units: K/mm3; Status: F Test: EOS #; Value: 0.2; Range: 0.0-0.50; Units: K/mm3; Status: F Test: BASO #; Value: 0.0; Range: 0.0-0.2; Units: K/mm3; Status: F Test: LARGE UNSTAINED CELL #; Value: 0.2; Range: 0.0-0.4; Units: K/mm3; Status: F Lab Order: Lipase; SPEC'M 06/14/16 10:04 Test: LIPASE; Value: 132; Range: 73-393; Units: U/L; Status: F Lab Order: Liver Profile; SPEC'M 06/14/16 10:04 Test: AST/SGOT; Value: 11; Range: 15-37; Abnormal: Below low normal; Units: U/L; Status: F Test: ALT/SGPT; Value: 12; Range: 12-78; Units: U/L; Status: F Test: ALKALINE PHOSPHATASE; Value: 158; Range: 45-117; Abnormal: Above high normal; Units: U/L; Status: F Test: BILIRUBIN,TOTAL; Value: 0.3; Range: 0.2-1.0; Units: MG/DL; Status: F Test: BILIRUBIN,DIRECT; Value: 0.1; Range: 0.0-0.2; Units: MG/DL; Status: F Test: TOTAL PROTEIN; Value: 5.6; Range: 6.4-8.2; Abnormal: Below low normal; Units: GM/DL; Status: F Test: ALBUMIN; Value: 1.9; Range: 3.2-5.2; Abnormal: Below low normal; Units: GM/DL; Status: F Test: ALBUMIN/GLOBULIN RATIO; Value: 0.51; Range: 1.00-1.93; Abnormal: Below low normal; Status: F Lab Order: [facility]; [facility] Test: CPK CREATINE PHOSPHOKINASE; Value: 29; Range: 26-192; Units: U/L; Status: F Test: CK-MB VALUE MASS; Value: 1.0; Range: 0.0-3.6; Units: NG/ML; Status: F Test: MB/CK RELATIVE INDEX; Value: 3.44; Range: < OR =4; Status: F Test Note: ; DIAGNOSIS CRITERIA MMB ng/ml Relative Index (RI) NON-AMI < or = 5 N/A AQUINO ZONE > 5 < or = 4 AMI > 5 > 4 Lab Order: D-Dimer Quant; 06/14/16 10:04 Test: D-DIMER QUANT; Value: 1347.7; Range: <500; Abnormal: Above high normal; Units: ng/ml; Status: F Lab Order: Troponin; 06/14/16 10:04 Test: TROPONIN I; Value: < 0.02; Range: < 0.10; Units: NG/ML; Status: F Test Note: ; Troponin I Reference Interval for AdverseEvents LOCI: 99th Percentile= 0.00-0.045 ng/ml Risk Stratification: <= 0.10 ng/ml Decreased Risk for Adverse Clinical Events. 0.10-1.50 ng/ml Increased Risk for Adverse Clinical Events. Evaluation of additional criterion and/or repeat testing in 2-6 hours is suggested to rule out myocardial damage. >= 1.50 ng/ml Indicative of Myocardial Injury. Lab Order: Lactic Acid (Aquino tube on ice); 06/14/16 10:04 Test: LACTIC ACID LEVEL, LACTATE; Value: 3.2; Range: 0.4-2.0; Abnormal: Above upper panic limits; Units: MMOL/L; Status: F Lab Order: [facility]YLASE; [facility] Test: AMYLASE; Value: 79; Range: 25-115; Units: U/L; Status: F Lab Order: PT & APTT; SPEC'M 06/14/16 10:04 Test: PROTHROMBIN TIME; Value: 18.4; Range: 12.3-14.5; Abnormal: Above high normal; Units: SECONDS; Status: F Test: INR; Value: 1.52; Status: F Test: PARTIAL THROMBOPLASTIN TIME; Value: 28.1; Range: 26.6-37.1; Units: SECONDS; Status: F Test Note: ; THERAPUTIC HUMAN INR VALUES INDICATIONS NORMAL RANGES PROPHYLAXIS/TREATMENT OF: VENOUS THROMBOSIS 2.0-3.0 PULMONARY EMBOLISM 2.0-3.0 PREVENTION OF SYSTEMIC EMBOLISM FROM: TISSUE HEART VALVES 2.0-3.0 ACUTE MYOCARDIAL INFARCTION 2.0-3.0 VALVULAR HEART DISEASE 2.0-3.0 ATRIAL FIBRILLATION 2.0-3.0 MECHANICAL VALVES(HIGH RISK) 2.5-3.5 RECURRENT MYOCARDIAL INFARCTION 2.5-3.5 Lab Order: -Influenza A&B Rapid Antigen - Nose; SPEC'M 06/14/16 12:02 Test: INFLUENZA A RAPID SCR by ICA; Value: INFLUENZA A RESULTS NEGATIVE; Status: F Test: INFLUENZA A RAPID SCR by ICA; Value: Comments:; Status: F Test: INFLUENZA B RAPID SCR by ICA; Value: INFLUENZA B RESULTS NEGATIVE; Status: F Test Note: ; The Influenza test is a direct rapid immunoassay for the qualitative detection of Influenza viral antigen. Cell culture (Viral Culture) testing should be considered to confirm NEGATIVE results and to assist in detecting other viruses that can provide similar clinical symptoms. Please contact the lab within 24 [phone] ([phone]) if confirmatory testing is desired. 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; : 1945 Requested By: Hyun Denson; Order Number: [id number] Reading MD: Frederick Sharp; Measurements; Intervals [place]; Rate: 90 P: 38; ND: 141 QRS: -16; QRSD: 85 T: 14; QT: 364; QTc: 447; Interpretive Statements; SINUS RHYTHM; MINIMAL NONSPECIFIC ST DEPRESSION; PRWP; BASELINE ARTIFACT AND WANDERING BASELINE AFFECTS INTERPRETATION; ; ; Electronically Signed On 06-14-2016 17:31:14 EST by Frederick Sharp; Radiology Order: Chest, 1 View Test: Chest, 1 View REASON FOR EXAMINATION: Shortness of Breath; Portable chest x-ray: Single view.; ; History: Shortness of breath.; ; Comparison chest x-ray April 04, 2016.; ; Findings: Right hemidiaphragm remains moderately elevated unchanged. EKG; monitoring electrodes are seen. The lungs are otherwise clear. Pleural angles; are sharp. Heart size is normal. The aorta is somewhat tortuous.; ; Impression:; ; Moderate elevation of the right hemidiaphragm unchanged from comparison study.; Otherwise no acute disease.; ; ; Signed by; Leif Rico MD 06/14/2016 01:41 P; Radiology Order: CT Chest Angio R/O PE Test: CT Chest Angio R/O PE REASON FOR EXAMINATION: sob; CT PULMONARY ANGIOGRAM: With IV contrast.; ; HISTORY: Shortness of breath.; ; COMPARISON STUDIES: April 04, 2016; ; Contrast dose: 100 mL of Isovue 370 are administered intravenously.; ; CT TECHNIQUE: Helical scanning is acquired and overlapping 1.5 mm and contiguous; 3 mm axial images are reformatted. In addition, a 3D work station is deployed to; generate thick slab maximum intensity projection images in sagittal and coronal; imaging projections.; ; CT PULMONARY ANGIOGRAPHIC FINDINGS: There is good opacification of the pulmonary; arterial tree. There is a large saddle embolus centrally occupying both the; right and left main pulmonary arteries. The embolus extends in the left lower; lobe pulmonary arterial branches centrally. In a similar in morphology although; smaller in size than the massive saddle embolus visible on the recent prior study; of April 04, 2016. The thoracic aorta enhances homogeneously and is normal in; caliber and contour. No infiltrate is seen in the lung spence. There is no; evidence of pleural or pericardial effusion. No hilar or mediastinal mass or; adenopathy is seen. The gallbladder is dilated containing multiple large calculi; and showing mild wall thickening. This is unchanged as well from the comparison; study. Visualized upper abdominal structures are otherwise unremarkable.; ; IMPRESSION: Large saddle embolus again noted similar morphologically except; smaller in size, to that seen on the April 04, 2016 prior study. Recurrent; saddle embolus versus subacute. Also noted is a dilated thick-walled gallbladder; containing multiple large stones. This is unchanged from the prior study.; ; ; ; ; Signed by; Leif Rico MD 06/14/2016 01:43 P; Radiology Order: CT ABD & PELVIS W/O FOL BY WIT Test: CT ABD & PELVIS W/O FOL BY WIT REASON FOR EXAMINATION: Abdomen Pain, LEFT FLANK; CT study of the abdomen and pelvis without and with IV contrast: Without oral; contrast.; ; History: Abdominal pain, left flank pain.; ; Comparison CT study is from April 03, 2016.; ; CT contrast dose: 100 mL of intravenous Isovue 370 is administered.; ; CT findings: There are scattered surgical clips in the left abdomen. The lung; bases are clear. Filling defect noted in the left lower lobe pulmonary artery; tree as described on today's CT pulmonary angiogram consistent with pulmonary; embolus. There is an eventration of the right hemidiaphragm as before. There is; marked dilation of the gallbladder measuring up to 14 cm. There are multiple; calcified gallstones in the gallbladder. The degree of distension is similar to; that seen in April 03, 2016 images. There is evidence of a gallstone in the; cystic duct in the portal region which measures 2 cm in greatest diameter. This; is also visible on the prior study and is felt to be unchanged. No focal hepatic; mass lesion is seen. No splenic abnormalities observed. No pancreatic lesion is; seen. The common bile duct does not appear to be dilated. There are intrarenal; calculi at the corticomedullary junction of both kidneys in multiple locations.; The largest of these in the right kidney is in the lower pole measuring 3 mm.; There is a 3 mm interpolar calculus on the left. There are four or five calculi; in the right kidney and seven to eight calculi in the left. No hydronephrosis is; seen on either side. This finding is essentially unchanged. Normal caliber; aorta is seen. No retroperitoneal mass or adenopathy is seen. There is some; thickening and enhancement of the wall of the colon throughout. No colonic; distension is seen. This may reflect enterocolitis. There is a left colonic; anastomoses in the left lower quadrant. No uterine or adnexal abnormality is; seen. No urinary bladder pathology is noted. There appears to be a right; inguinal hernia transmitting a lobule of intra-abdominal fat.; ; Impression:; ; 1. Pulmonary embolus visible in the left lower lobe pulmonary arteries on the; abdominal CT study.; ; 2. Hydrops of the gallbladder with multiple large gallstones including one large; gallstone which appears to be impacted in the region of the cystic duct. No; other biliary dilation seen.; ; 3. Bilateral intrarenal nephrolithiasis again seen without hydronephrosis.; ; 4. Status post left colonic resection and reanastomosis.; ; 5. Evidence of enterocolitis with enhancement and mural thickening throughout; the colon. No obstructive lesion.; ; 6. Small right inguinal hernia suspected transmitting a lobule of abdominal; fat.; ; ; Signed by; Leif Rico MD 06/14/2016 01:43 P; Outcome: 12:09 Decision to Hospitalize by Provider. 12:15 CT Study completed. [facility] 13:00 Discharge Assessment: patient administered narcotics - yes. Patient was admitted to the [address] or transferred to another facility. 16:59 The following High Risk Discharge criteria are identified: None. Admitted to PCU [facility] accompanied by nurse, accompanied by tech, family with patient, via stretcher, on monitor, with chart. Condition: good Condition: stable. 18:28 Patient left the ED. [facility] Signatures: Dispatcher [employer] EDMS Hyun Denson MD MD ml Lowe, Matthew, RN RN ml6 Lauren Gonzalez RN RN hs1 Leatha Cabezas, OUTSIDE PLANT ENGINEER OUTSIDE PLANT ENGINEER ct3 Faith Dumont,MU RN js13 Radha Chávez mm15 Ava Franklin, OUTSIDE PLANT ENGINEER OUTSIDE PLANT ENGINEER jlf Robyn Soto RN RN [id number] Nima Seaman, OUTSIDE PLANT ENGINEER OUTSIDE PLANT ENGINEER jrd Roxie Santos,MU RN kc3 Corrections: (The following items were deleted from the chart) 10:08 10:07 AMYLASE+LAB sent. renetta NI 10:14 10:07 PT & APTT+LAB sent. renetta NI MTDD
[2016-06-14 18:40] VITALS: BP 125/57
--- NOTE | 2016-06-14 18:54 | CR ---
DATE OF CONSULTATION: 06/14/2016 CHIEF COMPLAINT: Shortness of breath and abdominal pain. HISTORY OF PRESENT ILLNESS: The patient is a 70-year-old female with a history of ulcerative colitis and Clostridium (C) difficile, most recently on April 07, presents to the emergency room (ER) with history of increasing abdominal pain and some loose stools. She claims has had about 23 or more loose stools in the past 24 hours. She says that there is some blood in it but no blood when she is actually wiping. She does have a history of hemorrhoids, but she does not feel like this in the same type of bleeding that she had with her hemorrhoids. Nausea. No vomiting. Abdominal pain mainly on the left side of her abdomen, radiating around to the left flank, even down the left leg. No problems with headache, chest pain, shortness of breath, or changes in bladder habits. She has had similar symptoms to this in the past with ulcerative colitis. She does not feel like her ulcerative colitis has ever been fully treated. She is currently under the care of Dr. Kiran, who started her on sulfasalazine for this. She has not used steroids in the past, and she has had a left hemicolectomy due to her ulcerative colitis, by Dr. Araujo in the past as well. PAST MEDICAL HISTORY: 1. Ulcerative colitis. 2. Iron deficient anemia. 3. C. Difficile. 4. Hiatal hernia. 5. Hemorrhoids. 6. Gastroesophageal reflux disease (GERD). 7. Congestive heart failure (CHF). 8. Depression. 9. Saddle pulmonary embolism PAST SURGICAL HISTORY: 1. Partial colectomy in 2006. 2. Colostomy reversal. 3. Rectocele repair. 4. Tonsillectomy. 5. Right total knee repair. 6. Last colonoscopy was November [address] Araujo MEDICATIONS: Please see medical reconciliation. ALLERGIES: None. SOCIAL HISTORY: Denies any drug, alcohol, tobacco use. FAMILY HISTORY: Noncontributory. REVIEW OF SYSTEMS: Pertinent positives and negatives stated in history of present illness (HPI). PHYSICAL EXAMINATION: GENERAL: Alert and oriented times three. No acute distress. VITAL SIGNS: Blood pressure 115/79, pulse 99, respirations 22, temperature 98.6, pulse oximetry 93% 2 liters. HEENT: Pupils equally round and reactive to light accommodation. HEART: S1, S2, regular rate and rhythm. LUNGS: Clear to auscultation bilaterally. ABDOMEN: Soft, tender to palpation, left abdomen. No rebounding, guarding, or rigidity. EXTREMITIES: Bilateral lower extremity pitting edema. LABORATORY DATA: White count 7.2, hemoglobin 12.2, platelets 534. Lactic acid 3.2, potassium 3.4, albumin 1.9, lipase 132. IMAGING STUDIES: CT abdomen and pelvis shows a pulmonary embolism in the left lower lobe pulmonary arteries. Hydrops of the gallbladder with multiple large gallstones, including one large gallstone that appears to be impacted in the region of the cystic duct. No other signs of biliary ductal dilatation. Bilateral intrarenal nephrolithiasis without hydronephrosis. Evidence of enterocolitis with enhancement and mural thickening throughout the colon No signs of obstructing lesions. Small right inguinal hernia with lobule of abdominal fat. ASSESSMENT AND PLAN: Again, the patient is a 70-year-old female with history of ulcerative colitis and recently Clostridium (C) difficile colitis, presenting with increasing abdominal pain and multiple episodes of diarrhea. At this time, it appears that the patient is also dehydrated due to all the diarrhea. She is hemoconcentrated. This colitis could be secondary to infectious versus inflammatory. Unlikely to be ischemic component to this. Recommendation at this time would be to start her on antibiotics empirically in case this is related to C. difficile. Also will start her on some steroids for probable exacerbation of ulcerative colitis. I have discussed this case with Dr. Araujo, who has taken care of her in the past. He is very well familiar with her. He also agreed with this plan. He is also going to take over her care starting tomorrow morning.
[2016-06-14] MEDS: MULTIVITAMINS/MINERALS THERAP 1 TAB PO SCH (19:01)
[2016-06-14] MEDS: LACTOBACILLUS ACIDOPHILUS CAP (BACID) PO SCH (19:01)
[2016-06-14] MEDS: FLUoxetine 20 MG CAP PO SCH (19:02)
[2016-06-14] MEDS: HYDROCORTISONE 100 MG/2 ML VIAL (J1720) IV SCH (19:03)
[2016-06-14 20:00] VITALS: BP 104/51
[2016-06-14] MEDS: FERROUS SULFATE 325MG TAB PO SCH (21:19)
[2016-06-14] MEDS: VANCOMYCIN ORAL SOL 250MG/5ML ORAL SYRINGE PO SCH (23:00)
[2016-06-14 23:59] VITALS: BP 108/59
[2016-06-15] MEDS: HYDROCORTISONE 100 MG/2 ML VIAL (J1720) IV SCH ×2 (02:56→15:58)
[2016-06-15] MEDS: NS 1,000 ML IV SCH ×5 (02:57→20:10)
[2016-06-15] MEDS: VANCOMYCIN ORAL SOL 250MG/5ML ORAL SYRINGE PO SCH ×3 (06:10→18:31)
[2016-06-15 06:11] LABS: BASO % 0.2 % (0.0-1.0); EOS % 0.2 % (0.0-3.0); LARGE UNSTAINED CELL % 0.6 % (0.0-4.0); LYMPH # 0.7 K/mm3 (1.5-4.5); LYMPH % 11.4 % (24.0-44.0); MEAN CORPUSCULAR HEMOGLOBIN 26.8 pg (27.0-33.0); MEAN CORPUSCULAR HGB CONC 31.5 g/dl (32.0-36.5); MEAN CORPUSCULAR VOLUME 85.2 fl (80.0-96.0); MONO # 0.2 K/mm3 (0.0-0.8); MONO % 4.2 % (0.0-5.0); NEUTROPHILS # 4.8 K/mm3 (1.8-7.7); NEUTROPHILS % 83.3 % (36.0-66.0); RED CELL DISTRIBUTION WIDTH 15.2 % (11.5-14.5); WHITE BLOOD COUNT 5.7 K/mm3 (4.0-10.0)
[2016-06-15 06:17] LABS: INR 1.52
[2016-06-15 06:19] LABS: PLATELET COUNT, AUTOMATED 434 k/mm3 (150-450)
[2016-06-15 06:35] LABS: ALBUMIN 1.6 GM/DL (3.2-5.2); ALKALINE PHOSPHATASE 129 U/L (45-117); ALT/SGPT 9 U/L (12-78); ANION GAP 8 MEQ/L (8-16); AST/SGOT 10 U/L (15-37); BILIRUBIN,TOTAL 0.3 MG/DL (0.2-1.0); BLOOD UREA NITROGEN 6 MG/DL (7-18); CALCIUM LEVEL 8.2 MG/DL (8.8-10.2); CARBON DIOXIDE LEVEL 24 MEQ/L (21-32); CHLORIDE LEVEL 115 MEQ/L (98-107); CREATININE FOR GFR 0.68 MG/DL (0.55-1.02); GLOMERULAR FILTRATION RATE > 60.0 (>45); GLUCOSE, FASTING 92 MG/DL (80-110); POTASSIUM SERUM 3.2 MEQ/L (3.5-5.1); SODIUM LEVEL 147 MEQ/L (136-145); TOTAL PROTEIN 4.8 GM/DL (6.4-8.2)
[2016-06-15] MEDS ORDERED: POTASSIUM CHLORIDE 10 MEQ SR TABLET PO ONE (07:45)
[2016-06-15 08:00] VITALS: BP 122/57
[2016-06-15] MEDS: FERROUS SULFATE 325MG TAB PO SCH ×2 (08:17→20:10)
[2016-06-15] MEDS: FLUoxetine 20 MG CAP PO SCH (08:17)
[2016-06-15] MEDS: LACTOBACILLUS ACIDOPHILUS CAP (BACID) PO SCH (08:17)
[2016-06-15] MEDS: metroNIDAZOLE 500 MG in APPROPRIATE DILUENT 1 EA IV SCH ×2 (08:17→15:58)
[2016-06-15] MEDS: MULTIVITAMINS/MINERALS THERAP 1 TAB PO SCH (08:17)
[2016-06-15] MEDS ORDERED: HEPARIN DRIP 25,000 UNITS in APPROPRIATE DILUENT 1 EA IV SCH (08:50)
[2016-06-15] MEDS ORDERED: HEPARIN SOD (PORCINE) 5000 UNITS/ML VIAL IV PRN (09:00)
--- NOTE | 2016-06-15 09:14 | IPN ---
DATE: 06/15/2016 The patient is seen and examined at the bedside. The chart has been reviewed. She continues to complain of right upper and lower quadrant abdominal discomfort when she has a bowel movement. She has had four bowel movements yesterday. Continues to be watery, nonbloody, and nonmucusy. No fever or chills overnight. Telemetry was unremarkable. Remains in sinus rhythm. Lactic acid has improved to normal. No other issues per nursing. Denies nausea, vomiting, chest pain, pressure or tightness, lightheadedness or dizziness. Temperature 96, pulse 74, respiratory rate 18, blood pressure 108/59, 85% on room air. Generally, patient is awake, alert, and oriented times three, answering questions appropriately. Lungs are clear to auscultation. No wheezing, rales or rhonchi. Heart: S1, S2. Sinus rhythm. Abdomen soft. Slightly tender in the left upper and lower quadrants. No rebound or guarding. No hepatosplenomegaly. No rigidity. Extremities: Bilateral 1+ pitting edema. White count 5.7, hemoglobin 10, hematocrit 34 and platelet count 434. Sodium 147, potassium 3.2, chloride 115, bicarbonate 24, BUN 6, creatinine 0.68, glucose 92, lactic acid 1.2, calcium 8.2, total bilirubin 0.3, AST 10, ALT 9, alkaline phosphatase 129. Microbiology: Clostridium difficile positive. Imaging Studies: CT of abdomen and pelvis on 06/14/2016 shows pulmonary embolus (PE) visible left lower pulmonary artery. Multiple gallstones, one impacted in the cystic duct. No other biliary dilatation. Bilateral intrarenal nephrolithiasis without hydronephrosis. Reanastomosis. Evidence of enterocolitis. Small right inguinal hernia transmitting a lobule of abdominal fat. CT of chest with large saddle embolus again noted morphologically except smaller in size than March. Recurrent saddle embolus versus subacute with dilated thick walled gallbladder containing multiple stones unchanged from prior study. ASSESSMENT AND PLAN: This is a 70-year-old female with history of deep vein thrombosis (DVT) on chronic Coumadin currently subtherapeutic at 1.5, chronic obstructive pulmonary disease on chronic oxygen, congestive heart failure, asthma, anxiety, depression, reflux and hyperlipidemia admitted due to complaints of shortness of breath and found to have a saddle embolus with subtherapeutic INR, history of congestive heart failure currently on Lasix and spironolactone and C. Difficile colitis. CURRENT ISSUES: 1. Saddle embolus, currently with subtherapeutic INR. Patient will be placed on intravenous heparin drip to target INR of 2-3. The patient has no contraindication to anticoagulation. Will continue with current bridge therapy until patient is therapeutic. 2. Clostridium difficile colitis with dehydration and electrolyte abnormalities with low potassium. The patient will be continued on current oral vancomycin, IV fluid hydration and monitor for respiratory distress. Currently on hydrocortisone. 3. Incidental finding of multiple gallstones with normal liver function tests. Continue to monitor for abdominal pain in the right upper quadrant or epigastric area. May advance diet for now. General surgeon Dr. Sarah has seen the patient. Dr. Araujo to follow this morning. Will obtain HIDA scan if needed and confirm with ultrasound of the gallbladder. 4. Congestive heart failure appears to be compensated for now. Monitor for decompensation due to intravenous fluids being given for severe dehydration and hypernatremia. [facility]
[2016-06-15 12:00] VITALS: BP_SYST 106; BP_SYST 108; BP_SYST 52; BP_DIAS 52
[2016-06-15 16:00] VITALS: BP 139/64
--- NOTE | 2016-06-15 17:20 | IPNPDOC ---
Assessment/Plan Date Seen Date Seen The patient was seen on 06/15/16. Problems: (1) Diarrhea Status: Acute General Surgery Problem Txt: Patient reporting episodes today. (2) C. difficile colitis Status: Acute General Surgery Problem Txt: Stool sample came back positive for C. diff. Continue Antibiotics. (3) Ulcerative colitis Status: Acute General Surgery Problem Txt: Patient has history of. Continuing steroids at this time. Plan / VTE VTE Prophylaxis Ordered?: Yes Plan Plan Text Recommend to continue Metronidazole and Vancomycin at this time for Clostridium difficile. Monitor WBC count, remains low at 5.7 06/15/16. Continue steroids for possible exacerbation of ulcerative colitis. Continue to monitor patient as needed while in hospital for other medical problems. Monitor diarrhea. Subjective CC/HPI The patient is a 70-year-old female admitted with a reason for visit of Diarrhea. Patient has long history of ulcer colitis. Patient has history of Clostridium difficile. Patient presented to ER after having 3 episodes of diarrhea over 24 hour period. Has history of left hemicolectomy. Patient reports still having episodes of diarrhea today. About 2-3 episodes this morning. Patient is not noticed any blood in stool. Stool is mostly liquid with some solid. Pain is resolving this morning. Patient has been afebrile since in the hospital. Denies nausea and vomiting. General: Denies: Chills, Fatigue, Night Sweats Constitutional: Denies: Fever, Malaise Eyes: Denies: Pain, Vision change ENT: Denies: Ear Pain Skin: Denies: Lesions, Rash Pulmonary: Denies: Cough, Dyspnea Cardiovascular: Denies: Chest Pain, Palpitations Gastrointestinal: Reports: Diarrhea, Denies: Nausea, Vomiting Genitourinary: Denies: Dysuria, Frequency, Incontinence Hematologic: Denies: Bleeding Excessively, Bruising Psych: Reports: Mood Normal, Denies: Anxiety, Depression Objective EYE EXAM: : EOMI: PERRLA ENT EXAM: : Atraumatic Neck Exam: : SuppleNo: JVD ABDOMEN EXAM: : SoftNo: Tenderness Extremity Exam: : Normal pulsesNo: Swelling Neuro Exam: : Normal Speech VS/I&O Vital Sign - Last 24 Hours 06/14/16 06/14/16 06/14/16 06/14/16 18:40 20:00 20:00 23:59 Temp 97.0 96.7 96.0 Pulse 73 72 74 Resp 18 20 18 B/P 125/57 104/51 108/59 Pulse Ox 98 97 95 O2 Delivery Room Air Room Air Room Air Room Air 06/15/16 06/15/16 06/15/16 06/15/16 00:00 08:00 08:00 11:52 Temp 95.3 Pulse 89 Resp 18 B/P 122/57 Pulse Ox 98 O2 Delivery Room Air Room Air Room Air Room Air 06/15/16 06/15/16 12:00 16:00 Temp 95.1 94.9 Pulse 70 67 Resp 18 20 B/P 108/52 139/64 Pulse Ox 98 98 O2 Delivery Room Air Room Air I&O- Last 24 Hours up to 6 AM 06/15/16 06:00 Intake Total 1475 ml Output Total 200 ml Balance 1275 ml Labs 24H Laboratory Tests 2 06/15/16 05:58: Activated Partial Thromboplast Time 30.8, Blood Urea Nitrogen 6L, Creatinine 0.68, Sodium Level 147H, Potassium Level 3.2L, Chloride Level 115H, Carbon Dioxide Level 24, Calcium Level 8.2L, Aspartate Amino Transf (AST/SGOT) 10L, Alanine Aminotransferase (ALT/SGPT) 9L, Alkaline Phosphatase 129H, Total Bilirubin 0.3, Total Protein 4.8L, Albumin 1.6L, Albumin/Globulin Ratio 0.50L, Anion Gap 8, White Blood Count 5.7, Red Blood Count 4.00, Hemoglobin 10.7L, Hematocrit 34.1L, Mean Corpuscular Volume 85.2, Mean Corpuscular Hemoglobin 26.8L, Mean Corpuscular Hemoglobin Concent 31.5L, Red Cell Distribution Width 15.2H, Platelet Count 434#, Neutrophils (%) (Auto) 83.3H, Lymphocytes (%) (Auto ) 11.4L, Monocytes (%) (Auto) 4.2, Eosinophils (%) (Auto) 0.2, Basophils (%) ( Auto) 0.2, Neutrophils # (Auto) 4.8, Lymphocytes # (Auto) 0.7L, Monocytes # ( Auto) 0.2, Eosinophils # (Auto) 0.0, Basophils # (Auto) 0.0, Glomerular Filtration Rate > 60.0, Large Unclassified Cells # 0.0, Large Unclassified Cells % 0.6, Prothromb Time International Ratio 1.52, Prothrombin Time 18.4H CBC/BMP Laboratory Tests 06/15/16 05:58 Calcium Level 8.2 L, Aspartate Amino Transf (AST/SGOT) 10 L, Alanine Aminotransferase (ALT/SGPT) 9 L, Alkaline Phosphatase 129 H, Total Bilirubin 0.3 , Total Protein 4.8 L, Albumin 1.6 L, Red Blood Count 4.00, Mean Corpuscular Volume 85.2, Mean Corpuscular Hemoglobin 26.8 L, Mean Corpuscular Hemoglobin Concent 31.5 L, Red Cell Distribution Width 15.2 H, Neutrophils (%) (Auto) 83.3 H, Lymphocytes (%) (Auto) 11.4 L, Monocytes (%) (Auto) 4.2, Eosinophils (%) ( Auto) 0.2, Basophils (%) (Auto) 0.2, Neutrophils # (Auto) 4.8, Lymphocytes # ( Auto) 0.7 L, Monocytes # (Auto) 0.2, Eosinophils # (Auto) 0.0, Basophils # (Auto ) 0.0 Medications Current Medications Acetaminophen 650 mg 650 mg Q4HP PRN PO MILD PAIN OR FEVER Last administered on 06/14/16 19:02; Start 06/14/16 at 14:00; Stop 07/14/16 at 13:59 Ciprofloxacin 400 mg/IV Miscellaneous Supplies 200 ml @ 200 mls/hr Q12H IV ; Start 06/14/16 at 15:00; Stop 06/14/16 at 22:07; Status DC Ferrous Sulfate (Ferrous Sulfate) 325 mg BID PO Last administered on 06/15/16 08:17; Start 06/14/16 at 21:00; Stop 07/14/16 at 20:59 Fluoxetine HCl (PROzac) 20 mg DAILY PO Last administered on 06/15/16 08:17; Start 06/14/16 at 09:00; Stop 07/14/16 at 08:59 Heparin Sodium (Porcine) (Heparin) ASDIRECTED PRN IV SEE LABEL COMMENTS; Start 06/15/16 at 09:00; Stop 06/20/16 at 08:59 Heparin Sodium (Porcine)/IV Miscellaneous Supplies (Heparin Drip) 250 ml @ 0 mls /hr Q0M IV Last administered on 06/15/16 10:35; Start 06/15/16 at 08:50; Stop 06/20/16 at 08:49 Home Med (Med Rec Complete!) ASDIRECTED XX ; Start 06/14/16 at 12:00; Stop at 12:00; Status DC Hydrocortisone (A-Hydrocort) 25 mg Q12H IV Last administered on 06/15/16 15:58 ; Start 06/14/16 at 15:00; Stop 07/14/16 at 14:59 Hydrocortisone 25 mg 25 mg Q12H IV ; Start 06/14/16 at 14:00; Stop 07/14/16 at 13:59; Status Cancel Lactobacillus Acidophilus (Bacid) 1 ea DAILY PO Last administered on 06/15/16 08:17; Start 06/14/16 at 09:00; Stop 07/14/16 at 08:59 Metronidazole/IV Miscellaneous Supplies (Flagyl) 100 ml @ 100 mls/hr Q8H IV Last administered on 06/15/16 15:58; Start 06/14/16 at 16:00; Stop 06/21/16 at 15:59 Multivitamins (Theragram-M) 1 tab DAILY PO Last administered on 06/15/16 08:17 ; Start 06/14/16 at 09:00; Stop 07/14/16 at 08:59 Non-Formulary Medication (Heparin Iv Rate Change Documentation ml/ Hr) ASDIRECTED XX ; Start 06/15/16 at 09:00; Stop 06/20/16 at 08:59 Potassium Chloride (Micro-K Extencaps) 40 meq 1T@16 PO Last administered on 19:02; Start 06/14/16 at 16:00; Stop 06/14/16 at 23:59; Status DC Sodium Chloride (Nacl 0.9%) 1,000 ml @ 125 mls/hr Q8H IV Last administered on 06/15/16 15:58; Start 06/14/16 at 13:52; Stop 07/14/16 at 13:51 Vancomycin HCl 125 mg 125 mg Q6H PO Last administered on 06/15/16 12:09; Start 06/15/16 at 00:00; Stop 06/22/16 at 00:00 Warfarin Sodium (Coumadin) 3.75 mg DAILY@17 PO ; Start 06/14/16 at 17:00; Stop 06/21/16 at 16:59 Allergies: Coded Allergies: No Known Drug Allergy (Verified Allergy, Unknown, 08/26/12) GME ATTESTATION GME ATTESTATION My preceptor for this patient encounter was Dr. Araujo and he was physically present in the building during the encounter and was fully available. As needed , all aspects of the patient interview, examination, medical decision making process, and medical care plan development were reviewed and approved by the preceptor. Preceptor is aware and concurs with the plan as stated in the body of this note and will attest to such by his/her cosignature. KIERSTEN ACHARYA DO Jun 15, 2016 17:18
[2016-06-15] MEDS: WARFARIN SOD 7.5 MG TAB PO SCH (18:31)
[2016-06-15 19:00] VITALS: BP 116/58
[2016-06-15 22:00] VITALS: BP 102/58
[2016-06-16] MEDS: metroNIDAZOLE 500 MG in APPROPRIATE DILUENT 1 EA IV SCH ×3 (00:41→15:58)
[2016-06-16] MEDS: VANCOMYCIN ORAL SOL 250MG/5ML ORAL SYRINGE PO SCH ×4 (00:41→17:22)
[2016-06-16] MEDS: HYDROCORTISONE 100 MG/2 ML VIAL (J1720) IV SCH ×2 (03:47→15:58)
[2016-06-16] MEDS: NS 1,000 ML IV SCH (04:52)
[2016-06-16 05:20] LABS: BASO % 0.3 % (0.0-1.0); EOS # 0.1 K/mm3 (0.0-0.50); EOS % 1.5 % (0.0-3.0); LARGE UNSTAINED CELL # 0.1 K/mm3 (0.0-0.4); LARGE UNSTAINED CELL % 1.7 % (0.0-4.0); LYMPH # 1.9 K/mm3 (1.5-4.5); LYMPH % 26.6 % (24.0-44.0); MEAN CORPUSCULAR HEMOGLOBIN 26.7 pg (27.0-33.0); MEAN CORPUSCULAR HGB CONC 31.3 g/dl (32.0-36.5); MEAN CORPUSCULAR VOLUME 85.3 fl (80.0-96.0); MONO # 0.4 K/mm3 (0.0-0.8); MONO % 5.5 % (0.0-5.0); NEUTROPHILS # 4.5 K/mm3 (1.8-7.7); NEUTROPHILS % 64.4 % (36.0-66.0); PLATELET COUNT, AUTOMATED 421 k/mm3 (150-450); RED CELL DISTRIBUTION WIDTH 15.4 % (11.5-14.5)
[2016-06-16 05:41] LABS: ALBUMIN 1.6 GM/DL (3.2-5.2); ALKALINE PHOSPHATASE 133 U/L (45-117); ALT/SGPT 11 U/L (12-78); ANION GAP 8 MEQ/L (8-16); AST/SGOT 9 U/L (15-37); BILIRUBIN,TOTAL 0.2 MG/DL (0.2-1.0); BLOOD UREA NITROGEN 5 MG/DL (7-18); CALCIUM LEVEL 8.5 MG/DL (8.8-10.2); CARBON DIOXIDE LEVEL 22 MEQ/L (21-32); CHLORIDE LEVEL 117 MEQ/L (98-107); CREATININE FOR GFR 0.66 MG/DL (0.55-1.02); GLOMERULAR FILTRATION RATE > 60.0 (>45); GLUCOSE, FASTING 80 MG/DL (80-110); POTASSIUM SERUM 3.3 MEQ/L (3.5-5.1); SODIUM LEVEL 147 MEQ/L (136-145); TOTAL PROTEIN 4.8 GM/DL (6.4-8.2)
[2016-06-16 05:46] LABS: INR 2.1
--- NOTE | 2016-06-16 05:51 | REP ---
HIDA SCAN: Following the intravenous administration of 6.5 mCi of technetium 99m mebrofenin, multiple images of the right upper quadrant are performed every 5 minutes for a period of 1 hour. Biliary to bowel transit is seen at 15 minutes post injection. Images are carried out up to 3 hours post injection. The gallbladder is not visualized. IMPRESSION: Nonvisualization of the gallbladder up to 3 hours post injection suggests acute cholecystitis. Signed by Ramiro Aquino MD 06/17/2016 12:44 P
[2016-06-16 06:00] VITALS: BP 106/52
[2016-06-16] MEDS: KCL 10MEQ IN D5/0.45NS 1000ML 1,000 ML IV SCH ×2 (08:27→17:22)
[2016-06-16] MEDS: MULTIVITAMINS/MINERALS THERAP 1 TAB PO SCH (08:28)
[2016-06-16] MEDS: FERROUS SULFATE 325MG TAB PO SCH ×2 (08:28→20:53)
[2016-06-16] MEDS: LACTOBACILLUS ACIDOPHILUS CAP (BACID) PO SCH (08:28)
[2016-06-16] MEDS: FLUoxetine 20 MG CAP PO SCH (08:28)
--- NOTE | 2016-06-16 10:15 | IPNPDOC ---
Assessment/Plan Date Seen Date Seen The patient was seen on 06/16/16. Problems: (1) Diarrhea Status: Acute General Surgery Problem Txt: Patient reporting episodes today. (2) C. difficile colitis Status: Acute General Surgery Problem Txt: Stool sample came back positive for C. diff. Continue Antibiotics. (3) Ulcerative colitis Status: Acute General Surgery Problem Txt: Patient has history of. Continuing steroids at this time. Plan / VTE VTE Prophylaxis Ordered?: Yes Plan Plan Text Patient had HIDA scan 06/15. Gallbladder was not visible at 3 hours. Patient does not report any abdominal pain. WBC count today is normal at 7.0. Patient's LFTs are low. Alk phos is elevated at 133. Chronic obstructed cystic duct Recommend nonoperative management at this time. Will see patient in outpatient post discharge. Recommend follow up with 2 weeks after discharge for discussion of possible cholecystectomy at that time. Recommend low residue diet for patient while in the hospital. Subjective CC/HPI The patient is a 70-year-old female admitted with a reason for visit of Diarrhea. Events since last encounter Patient continues to have loose tools. Had 3-4 last evening. No blood in the stool. Some greenish tint to the stool. No abdominal pain today. Patient has been tolerating her diet, no nausea or vomiting. General: Denies: Chills, Fatigue, Night Sweats Constitutional: Denies: Chills, Fever Eyes: Denies: Pain ENT: Denies: Ear Pain, Head Aches Skin: Denies: Lesions, Rash Pulmonary: Denies: Cough, Dyspnea Gastrointestinal: Denies: Abdominal Pain, Nausea, Vomiting Objective EYE EXAM: : EOMI: PERRLA ENT EXAM: : Atraumatic Neck Exam: : SuppleNo: JVD Chest Exam: : Diminished Heart Exam: : Normal S1: Normal S2: Rate NormalNo: Murmurs, Rubs ABDOMEN EXAM: : SoftNo: Tenderness Extremity Exam: : Normal pulsesNo: Swelling Neuro Exam: : Normal Speech VS/I&O Vital Sign - Last 24 Hours 06/15/16 06/15/16 06/15/16 06/15/16 11:52 12:00 16:00 19:00 Temp 95.1 94.9 97.3 Pulse 70 67 64 Resp 18 20 16 B/P 108/52 139/64 116/58 Pulse Ox 98 98 98 O2 Delivery Room Air Room Air Room Air Room Air 06/15/16 06/15/16 06/15/16 06/16/16 19:11 21:37 22:00 06:00 Temp 97.0 96.9 Pulse 76 77 Resp 18 19 B/P 102/58 106/52 Pulse Ox 96 96 O2 Delivery Room Air Room Air Room Air Room Air 06/16/16 08:30 O2 Delivery Room Air I&O- Last 24 Hours up to 6 AM 06/16/16 06:00 Intake Total 240 ml Output Total 0 ml Balance 240 ml Labs 24H Laboratory Tests 2 06/15/16 17:07: Activated Partial Thromboplast Time 93.3H 06/15/16 22:41: Activated Partial Thromboplast Time 91.6H 06/16/16 05:08: Activated Partial Thromboplast Time 81.3H, Blood Urea Nitrogen 5L, Creatinine 0.66, Sodium Level 147H, Potassium Level 3.3L, Chloride Level 117H, Carbon Dioxide Level 22, Calcium Level 8.5L, Aspartate Amino Transf (AST/SGOT) 9L, Alanine Aminotransferase (ALT/SGPT) 11L, Alkaline Phosphatase 133H, Total Bilirubin 0.2, Total Protein 4.8L, Albumin 1.6L, Albumin/Globulin Ratio 0.50L, Anion Gap 8, White Blood Count 7.0, Red Blood Count 3.92L, Hemoglobin 10.5L, Hematocrit 33.4L, Mean Corpuscular Volume 85.3, Mean Corpuscular Hemoglobin 26.7L, Mean Corpuscular Hemoglobin Concent 31.3L, Red Cell Distribution Width 15.4H, Platelet Count 421, Neutrophils (%) (Auto) 64.4, Lymphocytes (%) (Auto) 26.6, Monocytes (%) (Auto) 5.5H, Eosinophils (%) (Auto) 1.5, Basophils (%) (Auto ) 0.3, Neutrophils # (Auto) 4.5, Lymphocytes # (Auto) 1.9, Monocytes # (Auto) 0.4, Eosinophils # (Auto) 0.1, Basophils # (Auto) 0.0, Glomerular Filtration Rate > 60.0, Large Unclassified Cells # 0.1, Large Unclassified Cells % 1.7, Prothromb Time International Ratio 2.10, Prothrombin Time 23.6H CBC/BMP Laboratory Tests 06/16/16 05:08 Calcium Level 8.5 L, Aspartate Amino Transf (AST/SGOT) 9 L, Alanine Aminotransferase (ALT/SGPT) 11 L, Alkaline Phosphatase 133 H, Total Bilirubin 0.2, Total Protein 4.8 L, Albumin 1.6 L, Red Blood Count 3.92 L, Mean Corpuscular Volume 85.3, Mean Corpuscular Hemoglobin 26.7 L, Mean Corpuscular Hemoglobin Concent 31.3 L, Red Cell Distribution Width 15.4 H, Neutrophils (%) ( Auto) 64.4, Lymphocytes (%) (Auto) 26.6, Monocytes (%) (Auto) 5.5 H, Eosinophils (%) (Auto) 1.5, Basophils (%) (Auto) 0.3, Neutrophils # (Auto) 4.5, Lymphocytes # (Auto) 1.9, Monocytes # (Auto) 0.4, Eosinophils # (Auto) 0.1, Basophils # (Auto) 0.0 Medications Current Medications Acetaminophen 650 mg 650 mg Q4HP PRN PO MILD PAIN OR FEVER Last administered on 06/14/16 19:02; Start 06/14/16 at 14:00; Stop 07/14/16 at 13:59 Ciprofloxacin 400 mg/IV Miscellaneous Supplies 200 ml @ 200 mls/hr Q12H IV ; Start 06/14/16 at 15:00; Stop 06/14/16 at 22:07; Status DC Ferrous Sulfate (Ferrous Sulfate) 325 mg BID PO Last administered on 06/16/16 08:28; Start 06/14/16 at 21:00; Stop 07/14/16 at 20:59 Fluoxetine HCl (PROzac) 20 mg DAILY PO Last administered on 06/16/16 08:28; Start 06/14/16 at 09:00; Stop 07/14/16 at 08:59 Heparin Sodium (Porcine) (Heparin) ASDIRECTED PRN IV SEE LABEL COMMENTS; Start 06/15/16 at 09:00; Stop 06/16/16 at 06:58; Status DC Heparin Sodium (Porcine)/IV Miscellaneous Supplies (Heparin Drip) 250 ml @ 0 mls /hr Q0M IV Last administered on 06/15/16 10:35; Start 06/15/16 at 08:50; Stop 06/16/16 at 06:58; Status DC Home Med (Med Rec Complete!) ASDIRECTED XX ; Start 06/14/16 at 12:00; Stop at 12:00; Status DC Hydrocortisone (A-Hydrocort) 25 mg Q12H IV Last administered on 06/16/16 03:47 ; Start 06/14/16 at 15:00; Stop 07/14/16 at 14:59 Hydrocortisone 25 mg 25 mg Q12H IV ; Start 06/14/16 at 14:00; Stop 07/14/16 at 13:59; Status Cancel Lactobacillus Acidophilus (Bacid) 1 ea DAILY PO Last administered on 06/16/16 08:28; Start 06/14/16 at 09:00; Stop 07/14/16 at 08:59 Metronidazole/IV Miscellaneous Supplies (Flagyl) 100 ml @ 100 mls/hr Q8H IV Last administered on 06/16/16 08:26; Start 06/14/16 at 16:00; Stop 06/21/16 at 15:59 Multivitamins (Theragram-M) 1 tab DAILY PO Last administered on 06/16/16 08:28 ; Start 06/14/16 at 09:00; Stop 07/14/16 at 08:59 Non-Formulary Medication ASDIRECTED XX ; Start 06/15/16 at 09:00; Stop at 06:58; Status DC Potassium Chloride/Dextrose/ Sod Cl (KCl 10meq In D5/ 0.45ns 1000ml) 1,000 ml @ 100 mls/hr Q10H IV Last administered on 06/16/16 08:27; Start 06/16/16 at 07 :00; Stop 07/16/16 at 06:59 Potassium Chloride (Micro-K Extencaps) 40 meq 1T@16 PO Last administered on 19:02; Start 06/14/16 at 16:00; Stop 06/14/16 at 23:59; Status DC Sodium Chloride (Nacl 0.9%) 1,000 ml @ 125 mls/hr Q8H IV Last administered on 06/16/16 04:52; Start 06/14/16 at 13:52; Stop 06/16/16 at 06:57; Status DC Vancomycin HCl 125 mg 125 mg Q6H PO Last administered on 06/16/16 05:09; Start 06/15/16 at 00:00; Stop 06/22/16 at 00:00 Warfarin Sodium (Coumadin) 3.75 mg DAILY@17 PO Last administered on 06/15/16t 18:31; Start 06/14/16 at 17:00; Stop 06/16/16 at 06:59; Status DC Allergies: Coded Allergies: No Known Drug Allergy (Verified Allergy, Unknown, 08/26/12) GME ATTESTATION GME ATTESTATION My preceptor for this patient encounter was Dr. Araujo and he was physically present in the building during the encounter and was fully available. As needed , all aspects of the patient interview, examination, medical decision making process, and medical care plan development were reviewed and approved by the preceptor. Preceptor is aware and concurs with the plan as stated in the body of this note and will attest to such by his/her cosignature. KIERSTEN ACHARYA DO Jun 16, 2016 09:57 KIERSTEN ACHARYA DO Jun 16, 2016 09:57
--- NOTE | 2016-06-16 13:19 | IPN ---
DATE: 06/16/2016 The patient is seen and examined at the bedside. The chart has been reviewed. The patient is tolerating her full liquid diet. She denies any right upper quadrant or epigastric abdominal pain, but complains of lower quadrant discomfort. The patient has been having persistent diarrhea, less watery, over a 24 hour period despite intravenous Flagyl and oral vancomycin. The patient has had no fevers, no chills. No nausea, vomiting, shortness of breath, chest pain, pressure, or any tightness. No other issues per nursing. She was placed on an intravenous heparin drip yesterday in order to provide bridge therapy for saddle embolus and continued on Coumadin. Today's INR is 2.10. Temperature 96.9, pulse 77, respiratory rate 19, blood pressure 106/52, 96% on room air. Generally, the patient is awake, alert, and oriented times three, answering questions appropriately. Anicteric. No jaundice. Pupils equal and reactive. Lungs are clear to auscultation. No wheezing, rales or rhonchi. Heart: S1, S2. Sinus rhythm. Abdomen soft, nontender, nondistended. Positive bowel sounds. No rebound or guarding. No rigidity. Extremities: Bilateral 1+ pitting edema. LABORATORY DATA: INR 2.10. White count 7, hemoglobin 10, hematocrit 33 and platelet count 421. Sodium 147, potassium 3.3, chloride 117, bicarbonate 22, BUN 5, creatinine 0.66, glucose 80, lactic acid 1.2, AST 9, ALT 11, alkaline phosphatase 133, albumin 1.6. MICROBIOLOGY: Clostridium difficile positive. HIDA scan positive for acute cholecystitis, most likely chronic per Dr. Araujo. CT of chest with pulmonary embolism left lower lobe. Abdominal study with small right inguinal hernia repair transmitting in a lobule of abdominal fat. CT of chest shows large saddle embolus noted, except smaller in size to that seen on 04/04/2016. ASSESSMENT AND PLAN: This is a 70-year-old female with history of deep vein thrombosis (DVT) on chronic Coumadin initially subtherapeutic on admission at 1.5, chronic obstructive pulmonary disease on chronic oxygen, chronic hypoxic respiratory failure, congestive heart failure, diastolic dysfunction, asthma, anxiety, depression, reflux, hyperlipidemia, and ulcerative colitis who presents to the emergency room with complaints of abdominal pain and shortness of breath found to have a subtherapeutic INR and saddle embolus. The patient was placed on intravenous heparin for bridge therapy until she is therapeutic at 2-3 and abdominal pain secondary to Clostridium difficile colitis and possible ulcerative colitis exacerbation. CURRENT ISSUES: 1. Saddle embolus, currently with therapeutic INR of 2.10. Patient's heparin IV drip has been discontinued. She will be continued on warfarin 5 mg daily. 2. Clostridium difficile colitis, dehydration and electrolyte abnormalities with low potassium. Supplement with D5 1/2 normal with potassium supplementation. Continue with oral vancomycin, intravenous Flagyl. 3. Chronic cholecysitis. HIDA scan positive for cholecystitis. Per Dr. Araujo, since patient is tolerating a diet and currently has no epigastric or right upper quadrant abdominal pain, may continue with same conservative management. At some point, once the patient's saddle embolus is stabilized, she will no evidence of disease to have a cholecystectomy. Should the patient have increasing abdominal pain, fever or chills, worsening signs of cholecystitis, then a cholecystotomy tube needs to be placed. 4. Congestive heart failure appears to be compensated for now. 5. Dehydration and hypernatremia. Patient is on IV fluids. 6. Ulcerative colitis. Defer to management to Dr. 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 [facility]
[2016-06-16 14:00] VITALS: BP 118/62
[2016-06-16] MEDS ORDERED: WARFARIN SOD 5 MG TAB PO ONE (17:00)
--- NOTE | 2016-06-16 19:30 | EDDOCDS ---
Nurse's Notes [facility] Name: Carter Vega Age: 70 yrs Sex: Female : 1945 Arrival Date: 06/14/2016 Time: 09:33 Bed Admit Hold Private MD: Roshan Long H. Diagnosis: Abdominal and pelvic pain;Other ulcerative colitis-rule out c difficule infection;Pulmonary embolism-known, does not appear to be a change;Diarrhea, unspecified-with elevated lactic acid;Dehydration;Cholelithiasis Presentation: 06/14 09:36 Red Flag criteria, patient assessed and taken directly to a bed. 6 09:41 Presenting complaint: Patient states: states SOB, shaking, lower abd pain, states has [facility] been having issues with c-diff and PEs since March. Adult Sepsis Screening: The patient does not have new or worsening altered mentation. Patient's respiratory rate is less than 22. Systolic blood pressure is greater than 100. Patient has a qSOFA score of 0- Negative Sepsis Screen. Suicide/Homicide risk assessment- the patient denies having any suicidal and/or homicidal ideations and does not present with any other emotional, behavioral or mental health complaints. 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 Transition of care: patient was not received from another setting of care. 09:41 Acuity: FELIZ Level 3 ml6 09:41 Method Of Arrival: Walkin/Carried/Asstd 6 Triage Assessment: 13:01 Respiratory: Onset: The symptoms/episode began/occurred. ms18 Historical: - Allergies: no known allergies; - Home Meds: 1. ferrous sulfate 325 mg (65 mg iron) Oral tab daily (Last dose: 06/14/2016 07:00) 2. warfarin 3.25mg Oral tab once daily (Last dose: 06/13/2016 17:00) 3. torsemide 20 mg oral tab 1 tab once daily (Last dose: 06/14/2016 07:00) 4. sulfasalazine 500 mg Oral TbEC 1 tab 4 times per day (Last dose: 06/14/2016 07:00) - PMHx: Anemia; CHF; Depression; GERD; Hernia; Ulcerative Colitis; PE; CDIFF; - PSHx: Colectomy, Partial; - Social history: Smoking status: Patient states was never smoker of tobacco. No barriers to communication noted, Speaks appropriately for age. - Family history: Not pertinent. - : The pt / caregiver states he / she is not on anticoagulants. Home medication list is obtained from the patient. - Exposure Risk Screening:: None identified. Screenin:09 Screening information is obtained from the patient. Fall risk: No risks identified. js13 Assistance ADL's: requires no assistance with activities of daily living. Abuse/DV Screen: The patient / caregiver reports he/she is: not in a situation that causes fear, pain or injury. Nutritional screening: No deficits noted. Advance Directives: There is no active DNR order. home support is adequate. Assessment: 10:08 General: Appears in no apparent distress, Behavior is appropriate for age, cooperative. js13 Pain: Pain currently is 3 out of 10 on a pain scale. Neurological: Level of Consciousness is awake, alert. Cardiovascular: Rhythm is sinus rhythm Chest pain is denied. Respiratory: Airway is patent Respiratory effort is even, unlabored, Respiratory pattern is regular, symmetrical, Breath sounds are clear. GI: Abdomen is flat, non- distended Bowel sounds present X 4 quads. Abd is soft and non tender. Derm: Skin is pink, warm & dry. 11:17 General: Appears in no apparent distress, comfortable, Behavior is appropriate for age, ms18 cooperative, pleasant. Neurological: Level of Consciousness is awake, alert, obeys commands, Oriented to person, place, time. Respiratory: Airway is patent Respiratory effort is even, unlabored, Respiratory pattern is regular, symmetrical. Derm: Skin is pink, warm & dry. 12:15 General: Appears in no apparent distress, comfortable, Behavior is appropriate for age, ms18 cooperative, pleasant. General: Pt in no acute distress. Will continue to monitor pt. Pain: Pain currently is 3 out of 10 on a pain scale. Neurological: Level of Consciousness is awake, alert, obeys commands, Oriented to person, place, time. Respiratory: Airway is patent Respiratory effort is even, unlabored, Respiratory pattern is regular, symmetrical. Derm: Skin is pink, warm & dry. 13:47 General: Appears in no apparent distress, comfortable, Behavior is appropriate for age, ms18 cooperative. General: Awaiting room assignment at this time. Neurological: No deficits noted. Respiratory: Airway is patent Respiratory effort is even, unlabored. Derm: Skin is pink, warm & dry. 14:50 General: Appears in no apparent distress, comfortable, Pt in no acute distress. VSS. ms18 Will continue to monitor pt. Awaiting room assignment at this time. . Neurological: Level of Consciousness is awake, alert, obeys commands, Oriented to person, place, time. Respiratory: Airway is patent Respiratory effort is even, unlabored. Derm: Skin is pink, warm & dry. 15:50 General: Pt in no acute distress. VSS. Will continue to monitor pt. ms18 17:17 General: Called PCU, room is in the process of being cleaned. Loli DOBBINS states that it ms18 should be approx 20 mins. 18:15 General: Appears in no apparent distress, comfortable, Behavior is appropriate for age, ms18 cooperative, pleasant. General: Pt can go to PCU at this time. . Neurological: Level of Consciousness is awake, alert, obeys commands, Oriented to person, place, time. Respiratory: Airway is patent Respiratory effort is even, unlabored. Derm: Skin is pink, warm & dry. Vital Signs: 09:36 BP 128 / 67 RA Sitting (auto/reg); Pulse 103; Resp 18; Temp 97.9(O); Pulse Ox 99% on jrd R/A; Weight 62.14 kg; Height 4 ft. 10 in. (147.32 cm); Pain 7/10; 10:11 BP 118 / 64 (auto/); ms18 10:11 Pulse 80 MON; Pulse Ox 99% ; ms18 10:26 BP 119 / 69 (auto/); ms18 10:26 Pulse 82 MON; Pulse Ox 98% ; ms18 10:41 BP 117 / 57 (auto/); ms18 10:41 Pulse 70 MON; Pulse Ox 98% ; ms18 10:56 BP 128 / 59 (auto/); ms18 10:56 Pulse 68 MON; Pulse Ox 98% ; ms18 11:11 BP 113 / 59 (auto/); ms18 11:11 Pulse 68 MON; Resp 18; Pulse Ox 99% ; ms18 11:26 BP 121 / 61 (auto/); ms18 11:26 Pulse 68 MON; Pulse Ox 98% ; ms18 11:43 BP 136 / 59 (auto/); ms18 11:45 Pulse 76 MON; Pulse Ox 98% ; ms18 11:56 BP 121 / 56 (auto/); ms18 11:56 Pulse 76 MON; Pulse Ox 99% ; ms18 12:11 BP 123 / 60 (auto/); ms18 12:11 Pulse 76 MON; Pulse Ox 99% ; ms18 12:26 BP 134 / 63 (auto/); ms18 12:26 Pulse 72 MON; Pulse Ox 98% ; ms18 12:32 Temp 99.6(TE); ms18 12:41 BP 125 / 68 (auto/); ms18 12:41 Pulse 74 MON; Pulse Ox 98% ; ms18 13:11 BP 156 / 73 (auto/); ms18 13:11 Pulse 80 MON; Pulse Ox 100% ; ms18 13:26 BP 136 / 60 (auto/); ms18 13:26 Pulse 76 MON; Pulse Ox 98% ; ms18 13:41 BP 124 / 60 (auto/); ms18 13:41 Pulse 76 MON; Pulse Ox 99% ; ms18 13:55 Pulse 76 MON; Pulse Ox 99% ; ms18 13:56 BP 122 / 62 (auto/); ms18 14:10 Pulse 74 MON; Pulse Ox 99% ; ms18 14:11 BP 113 / 57 (auto/); ms18 14:25 Pulse 72 MON; Pulse Ox 98% ; ms18 14:26 BP 128 / 58 (auto/); ms18 14:40 Pulse 72 MON; Pulse Ox 98% ; ms18 14:41 BP 130 / 55 (auto/); ms18 14:55 Pulse 72 MON; Pulse Ox 98% ; ms18 14:56 BP 125 / 60 (auto/); ms18 15:11 Pulse 74 MON; Pulse Ox 98% ; ms18 15:13 BP 123 / 59 (auto/); ms18 15:26 Pulse 72 MON; Pulse Ox 99% ; ms18 15:27 BP 118 / 54 (auto/); ms18 15:43 Pulse 74 MON; Pulse Ox 98% ; ms18 15:43 BP 121 / 58 (auto/); ms18 15:44 Pulse 74 MON; Pulse Ox 98% ; ms18 15:58 BP 110 / 54 (auto/); ms18 15:59 Pulse 74 MON; Pulse Ox 98% ; ms18 16:13 BP 115 / 59 (auto/); ms18 16:14 Pulse 74 MON; Pulse Ox 98% ; ms18 16:28 BP 127 / 55 (auto/); ms18 16:28 Pulse 82 MON; Pulse Ox 99% ; ms18 16:46 BP 140 / 62 (auto/); Pulse 76; Resp 18; Temp 97; Pulse Ox 98% ; Pain 6/10; ms18 16:58 BP 123 / 56 (auto/); ms18 16:59 Pulse 72 MON; Pulse Ox 97% ; ms18 17:13 BP 118 / 57 (auto/); ms18 17:14 Pulse 72 MON; Pulse Ox 97% ; ms18 17:28 BP 109 / 56 (auto/); ms18 17:29 Pulse 72 MON; Pulse Ox 98% ; ms18 17:43 BP 118 / 56 (auto/); ms18 17:44 Pulse 70 MON; Pulse Ox 97% ; ms18 17:58 BP 112 / 66 (auto/); ms18 17:59 Pulse 72 MON; Pulse Ox 98% ; ms18 18:13 BP 124 / 67 (auto/); ms18 18:14 Pulse 68 MON; Pulse Ox 99% ; ms18 09:36 Body Mass Index 28.63 (62.14 kg, 147.32 cm) jrd Vitals: 09:36 Log In Time: June 14, 2016 at 09:27. RN notified that patient meets Red Flag jrd criteria. 09:36 RN notified that patient meets Red Flag criteria. jrd ED Course: 09:34 Patient visited by Nima Seaman PCA. jrd 09:34 Patient moved to Waiting jrd 09:35 Patient moved to I7 / 29 hs1 09:36 Roshan Long is Private Physician. jrd 09:36 Patient moved to Waiting jrd 09:36 Patient moved to 13 ml6 09:37 Patient visited by Nima Seaman PCA. jrd 09:43 Triage Initiated ml6 09:46 Hyun Denson MD is Attending Physician. ml 09:46 Patient visited by Hyun Denson MD. ml 10:00 Accompanied by Family Member, Patient has correct armband on for positive ct3 identification. Placed in gown. Bed in low position. Call light in reach. Side rails up X2. hospital monitor on. Pulse ox on. NIBP on. 10:00 EKG done. (by ED staff). Reviewed by Hyun Denson MD. ct3 10:07 CIP Sent. js13 10:07 D-Dimer Quant Sent. js13 10:07 Troponin Sent. js13 10:07 Lactic Acid (Aquino tube on ice) Sent. js13 10:07 BMP Sent. js13 10:07 CBC with Diff Sent. js13 10:07 Lipase Sent. js13 10:07 Liver Profile Sent. js13 10:09 Patient visited by Leatha Cabezas PCA. ct3 10:09 The patient / caregiver is instructed regarding the plan of care and ED course. js13 10:09 Inserted saline lock: 18 gauge in left antecubital area and blood collected. The js13 patient tolerated the procedure well. No procedures done that require assistance. Labs drawn. (by ED staff). Sent per order to lab. Labs/Blood culture drawn. 10:10 Patient visited by Faith Dumont RN. js13 10:20 PT & APTT Sent. ml6 10:47 Chest, 1 View Returned. EDMS 10:48 Patient visited by Ava Franklin PCA. jlf 11:11 Property :Personal belongings accompany Pt. ms18 11:16 Patient visited by Robyn Soto RN. ms18 11:51 Patient visited by Robyn Soto RN. ms18 12:04 -Influenza A&B Rapid Antigen - Nose Sent. ms18 12:08 Ellyn Darling is Hospitalizing Provider. ml 12:25 CT Chest Angio R/O PE Returned. EDMS 12:57 Patient visited by Robyn Soto RN. ms18 12:58 CT ABD & PELVIS W/O FOL BY WIT Returned. EDMS 12:59 Robyn Soto,RN is Primary Nurse. ms18 13:45 [facility] Payment Agreement was scanned into Sequence and attached to record. mm15 13:47 Patient visited by Robyn Soto RN. ms18 14:07 Chest, 1 View Returned. EDMS 15:17 Patient moved to Admit Hold js13 15:23 Patient visited by Robyn Soto RN. ms18 16:55 GASTROINTESTINAL (GI) PANEL Sent. ms18 17:17 Patient visited by Robyn Soto RN. ms18 17:50 EKG-ADULT Returned. EDMS 18:15 Patient visited by Robyn Soto RN. ms18 06/15 12:05 T-Sheet-- Draft Copy was scanned into Sequence and attached to record. gb Administered Medications: 06/14 10:25 Drug: Ondansetron 4 mg [ondansetron HCl 2 mg/mL intravenous solution (2 mL)] Route: kc3 IVP; Site: left antecubital; 13:00 Follow up: Response: No Adverse Reaction ms18 10:25 Drug: morphine 2 mg [morphine 2 mg/mL intravenous cartridge (1 mL)] Route: IVP; Site: kc3 left antecubital; 13:00 Follow up: Response: No Adverse Reaction; Pain is decreased ms18 10:26 Drug: NS 0.9% 1000 ml [sodium chloride 0.9 % intravenous solution] Route: IV; Rate: 250 kc3 mL/hr; Site: left antecubital; 11:16 Follow up: IVF increased to bolus rate at this time per ED doctor's request ms18 12:36 Follow up: IV Status: Completed infusion; IV Intake: 1000ml ms18 Intake: 12:36 IV: 1000.00ml; Total: 1000.00ml. ms18 Order Results: Lab Order: BMP; SPEC'M 06/14/16 10:04 Test: GLUCOSE, FASTING; Value: 98; Range: 80-110; Units: MG/DL; Status: F Test: BLOOD UREA NITROGEN; Value: 6; Range: 7-18; Abnormal: Below low normal; Units: MG/DL; Status: F Test: CREATININE FOR GFR; Value: 0.85; Range: 0.55-1.02; Units: MG/DL; Status: F Test: GLOMERULAR FILTRATION RATE; Value: > 60.0; Range: >45; Status: F Test: SODIUM LEVEL; Value: 145; Range: 136-145; Units: MEQ/L; Status: F Test: POTASSIUM SERUM; Value: 3.4; Range: 3.5-5.1; Abnormal: Below low normal; Units: MEQ/L; Status: F Test: CHLORIDE LEVEL; Value: 108; Range: 98-107; Abnormal: Above high normal; Units: MEQ/L; Status: F Test: CARBON DIOXIDE LEVEL; Value: 27; Range: 21-32; Units: MEQ/L; Status: F Test: ANION GAP; Value: 10; Range: 8-16; Units: MEQ/L; Status: F Test: CALCIUM LEVEL; Value: 8.8; Range: 8.8-10.2; Units: MG/DL; Status: F Test Note: ; Units are mL/min/1.73 m2 Chronic Kidney Disease Staging per NKF: Stage I & II GFR >=60 Normal to Mildly Decreased Stage III GFR 30-59 Moderately Decreased Stage IV GFR 15-29 Severely Decreased Stage V GFR <15 Very Little GFR Left ESRD GFR <15 on CORROSION ENGINEER Lab Order: CBC with Diff; SPEC'M 06/14/16 10:04 Test: WHITE BLOOD COUNT; Value: 7.2; Range: 4.0-10.0; Units: K/mm3; Status: F Test: RED BLOOD COUNT; Value: 4.56; Range: 4.00-5.40; Units: M/mm3; Status: F Test: HEMOGLOBIN; Value: 12.2; Range: 12.0-16.0; Units: g/dl; Status: F Test: HEMATOCRIT; Value: 38.5; Range: 36.0-47.0; Units: %; Status: F Test: MEAN CORPUSCULAR VOLUME; Value: 84.5; Range: 80.0-96.0; Units: fl; Status: F Test: MEAN CORPUSCULAR HEMOGLOBIN; Value: 26.8; Range: 27.0-33.0; Abnormal: Below low normal; Units: pg; Status: F Test: MEAN CORPUSCULAR HGB CONC; Value: 31.7; Range: 32.0-36.5; Abnormal: Below low normal; Units: g/dl; Status: F Test: RED CELL DISTRIBUTION WIDTH; Value: 15.2; Range: 11.5-14.5; Abnormal: Above high normal; Units: %; Status: F Test: PLATELET COUNT, AUTOMATED; Value: 534; Range: 150-450; Abnormal: Above high normal; Units: k/mm3; Status: F Test: NEUTROPHILS %; Value: 69.1; Range: 36.0-66.0; Abnormal: Above high normal; Units: %; Status: F Test: LYMPH %; Value: 18.9; Range: 24.0-44.0; Abnormal: Below low normal; Units: %; Status: F Test: MONO %; Value: 6.3; Range: 0.0-5.0; Abnormal: Above high normal; Units: %; Status: F Test: EOS %; Value: 2.9; Range: 0.0-3.0; Units: %; Status: F Test: BASO %; Value: 0.6; Range: 0.0-1.0; Units: %; Status: F Test: LARGE UNSTAINED CELL %; Value: 2.3; Range: 0.0-4.0; Units: %; Status: F Test: NEUTROPHILS #; Value: 5.0; Range: 1.8-7.7; Units: K/mm3; Status: F Test: LYMPH #; Value: 1.4; Range: 1.5-4.5; Abnormal: Below low normal; Units: K/mm3; Status: F Test: MONO #; Value: 0.5; Range: 0.0-0.8; Units: K/mm3; Status: F Test: EOS #; Value: 0.2; Range: 0.0-0.50; Units: K/mm3; Status: F Test: BASO #; Value: 0.0; Range: 0.0-0.2; Units: K/mm3; Status: F Test: LARGE UNSTAINED CELL #; Value: 0.2; Range: 0.0-0.4; Units: K/mm3; Status: F Lab Order: Lipase; SPEC' 06/14/16 10:04 Test: LIPASE; Value: 132; Range: 73-393; Units: U/L; Status: F Lab Order: Liver Profile; SPEC' 06/14/16 10:04 Test: AST/SGOT; Value: 11; Range: 15-37; Abnormal: Below low normal; Units: U/L; Status: F Test: ALT/SGPT; Value: 12; Range: 12-78; Units: U/L; Status: F Test: ALKALINE PHOSPHATASE; Value: 158; Range: 45-117; Abnormal: Above high normal; Units: U/L; Status: F Test: BILIRUBIN,TOTAL; Value: 0.3; Range: 0.2-1.0; Units: MG/DL; Status: F Test: BILIRUBIN,DIRECT; Value: 0.1; Range: 0.0-0.2; Units: MG/DL; Status: F Test: TOTAL PROTEIN; Value: 5.6; Range: 6.4-8.2; Abnormal: Below low normal; Units: GM/DL; Status: F Test: ALBUMIN; Value: 1.9; Range: 3.2-5.2; Abnormal: Below low normal; Units: GM/DL; Status: F Test: ALBUMIN/GLOBULIN RATIO; Value: 0.51; Range: 1.00-1.93; Abnormal: Below low normal; Status: F Lab Order: CIP; 06/14/16 10:04 Test: CPK CREATINE PHOSPHOKINASE; Value: 29; Range: 26-192; Units: U/L; Status: F Test: CK-MB VALUE MASS; Value: 1.0; Range: 0.0-3.6; Units: NG/ML; Status: F Test: MB/CK RELATIVE INDEX; Value: 3.44; Range: < OR =4; Status: F Test Note: ; DIAGNOSIS CRITERIA MMB ng/ml Relative Index (RI) NON-AMI < or = 5 N/A AQUINO ZONE > 5 < or = 4 AMI > 5 > 4 Lab Order: D-Dimer Quant; 06/14/16 10:04 Test: D-DIMER QUANT; Value: 1347.7; Range: <500; Abnormal: Above high normal; Units: ng/ml; Status: F Lab Order: Troponin; 06/14/16 10:04 Test: TROPONIN I; Value: < 0.02; Range: < 0.10; Units: NG/ML; Status: F Test Note: ; Troponin I Reference Interval for Dog Digital LOCI: 99th Percentile= 0.00-0.045 ng/ml Risk Stratification: <= 0.10 ng/ml Decreased Risk for Adverse Clinical Events. 0.10-1.50 ng/ml Increased Risk for Adverse Clinical Events. Evaluation of additional criterion and/or repeat testing in 2-6 hours is suggested to rule out myocardial damage. >= 1.50 ng/ml Indicative of Myocardial Injury. Lab Order: Lactic Acid (Aquino tube on ice); 06/14/16 10:04 Test: LACTIC ACID LEVEL, LACTATE; Value: 3.2; Range: 0.4-2.0; Abnormal: Above upper panic limits; Units: MMOL/L; Status: F Lab Order: AMYLASE; SPEC'M 06/14/16 10:04 Test: AMYLASE; Value: 79; Range: 25-115; Units: U/L; Status: F Lab Order: PT & APTT; SPEC'M 06/14/16 10:04 Test: PROTHROMBIN TIME; Value: 18.4; Range: 12.3-14.5; Abnormal: Above high normal; Units: SECONDS; Status: F Test: INR; Value: 1.52; Status: F Test: PARTIAL THROMBOPLASTIN TIME; Value: 28.1; Range: 26.6-37.1; Units: SECONDS; Status: F Test Note: ; THERAPUTIC HUMAN INR VALUES INDICATIONS NORMAL RANGES PROPHYLAXIS/TREATMENT OF: VENOUS THROMBOSIS 2.0-3.0 PULMONARY EMBOLISM 2.0-3.0 PREVENTION OF SYSTEMIC EMBOLISM FROM: TISSUE HEART VALVES 2.0-3.0 ACUTE MYOCARDIAL INFARCTION 2.0-3.0 VALVULAR HEART DISEASE 2.0-3.0 ATRIAL FIBRILLATION 2.0-3.0 MECHANICAL VALVES(HIGH RISK) 2.5-3.5 RECURRENT MYOCARDIAL INFARCTION 2.5-3.5 Lab Order: -Influenza A&B Rapid Antigen - Nose; SPEC'M 06/14/16 12:02 Test: INFLUENZA A RAPID SCR by ICA; Value: INFLUENZA A RESULTS NEGATIVE; Status: F Test: INFLUENZA A RAPID SCR by ICA; Value: Comments:; Status: F Test: INFLUENZA B RAPID SCR by ICA; Value: INFLUENZA B RESULTS NEGATIVE; Status: F Test Note: ; The Influenza test is a direct rapid immunoassay for the qualitative detection of Influenza viral antigen. Cell culture (Viral Culture) testing should be considered to confirm NEGATIVE results and to assist in detecting other viruses that can provide similar clinical symptoms. Please contact the lab within 24 hours ([phone] if confirmatory testing is desired. 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; : 1945 Requested By: Hyun Denson; Order Number: [id number] Reading MD: Frederick Sharp; Measurements; Intervals [place]; Rate: 90 P: 38; IA: 141 QRS: -16; QRSD: 85 T: 14; QT: 364; QTc: 447; Interpretive Statements; SINUS RHYTHM; MINIMAL NONSPECIFIC ST DEPRESSION; PRWP; BASELINE ARTIFACT AND WANDERING BASELINE AFFECTS INTERPRETATION; ; ; Electronically Signed On 06-14-2016 17:31:14 EST by Frederick Sharp; Radiology Order: Chest, 1 View Test: Chest, 1 View REASON FOR EXAMINATION: Shortness of Breath; Portable chest x-ray: Single view.; ; History: Shortness of breath.; ; Comparison chest x-ray April 04, 2016.; ; Findings: Right hemidiaphragm remains moderately elevated unchanged. EKG; monitoring electrodes are seen. The lungs are otherwise clear. Pleural angles; are sharp. Heart size is normal. The aorta is somewhat tortuous.; ; Impression:; ; Moderate elevation of the right hemidiaphragm unchanged from comparison study.; Otherwise no acute disease.; ; ; Signed by; Leif Rico MD 06/14/2016 01:41 P; Radiology Order: CT Chest Angio R/O PE Test: CT Chest Angio R/O PE REASON FOR EXAMINATION: sob; CT PULMONARY ANGIOGRAM: With IV contrast.; ; HISTORY: Shortness of breath.; ; COMPARISON STUDIES: April 04, 2016; ; Contrast dose: 100 mL of Isovue 370 are administered intravenously.; ; CT TECHNIQUE: Helical scanning is acquired and overlapping 1.5 mm and contiguous; 3 mm axial images are reformatted. In addition, a 3D work station is deployed to; generate thick slab maximum intensity projection images in sagittal and coronal; imaging projections.; ; CT PULMONARY ANGIOGRAPHIC FINDINGS: There is good opacification of the pulmonary; arterial tree. There is a large saddle embolus centrally occupying both the; right and left main pulmonary arteries. The embolus extends in the left lower; lobe pulmonary arterial branches centrally. In a similar in morphology although; smaller in size than the massive saddle embolus visible on the recent prior study; of April 04, 2016. The thoracic aorta enhances homogeneously and is normal in; caliber and contour. No infiltrate is seen in the lung spence. There is no; evidence of pleural or pericardial effusion. No hilar or mediastinal mass or; adenopathy is seen. The gallbladder is dilated containing multiple large calculi; and showing mild wall thickening. This is unchanged as well from the comparison; study. Visualized upper abdominal structures are otherwise unremarkable.; ; IMPRESSION: Large saddle embolus again noted similar morphologically except; smaller in size, to that seen on the April 04, 2016 prior study. Recurrent; saddle embolus versus subacute. Also noted is a dilated thick-walled gallbladder; containing multiple large stones. This is unchanged from the prior study.; ; ; ; ; Signed by; Leif Rico MD 06/14/2016 01:43 P; Radiology Order: CT ABD & PELVIS W/O FOL BY WIT Test: CT ABD & PELVIS W/O FOL BY WIT REASON FOR EXAMINATION: Abdomen Pain, LEFT FLANK; CT study of the abdomen and pelvis without and with IV contrast: Without oral; contrast.; ; History: Abdominal pain, left flank pain.; ; Comparison CT study is from April 03, 2016.; ; CT contrast dose: 100 mL of intravenous Isovue 370 is administered.; ; CT findings: There are scattered surgical clips in the left abdomen. The lung; bases are clear. Filling defect noted in the left lower lobe pulmonary artery; tree as described on today's CT pulmonary angiogram consistent with pulmonary; embolus. There is an eventration of the right hemidiaphragm as before. There is; marked dilation of the gallbladder measuring up to 14 cm. There are multiple; calcified gallstones in the gallbladder. The degree of distension is similar to; that seen in April 03, 2016 images. There is evidence of a gallstone in the; cystic duct in the portal region which measures 2 cm in greatest diameter. This; is also visible on the prior study and is felt to be unchanged. No focal hepatic; mass lesion is seen. No splenic abnormalities observed. No pancreatic lesion is; seen. The common bile duct does not appear to be dilated. There are intrarenal; calculi at the corticomedullary junction of both kidneys in multiple locations.; The largest of these in the right kidney is in the lower pole measuring 3 mm.; There is a 3 mm interpolar calculus on the left. There are four or five calculi; in the right kidney and seven to eight calculi in the left. No hydronephrosis is; seen on either side. This finding is essentially unchanged. Normal caliber; aorta is seen. No retroperitoneal mass or adenopathy is seen. There is some; thickening and enhancement of the wall of the colon throughout. No colonic; distension is seen. This may reflect enterocolitis. There is a left colonic; anastomoses in the left lower quadrant. No uterine or adnexal abnormality is; seen. No urinary bladder pathology is noted. There appears to be a right; inguinal hernia transmitting a lobule of intra-abdominal fat.; ; Impression:; ; 1. Pulmonary embolus visible in the left lower lobe pulmonary arteries on the; abdominal CT study.; ; 2. Hydrops of the gallbladder with multiple large gallstones including one large; gallstone which appears to be impacted in the region of the cystic duct. No; other biliary dilation seen.; ; 3. Bilateral intrarenal nephrolithiasis again seen without hydronephrosis.; ; 4. Status post left colonic resection and reanastomosis.; ; 5. Evidence of enterocolitis with enhancement and mural thickening throughout; the colon. No obstructive lesion.; ; 6. Small right inguinal hernia suspected transmitting a lobule of abdominal; fat.; ; ; Signed by; Leif Rico MD 06/14/2016 01:43 P; Outcome: 12:09 Decision to Hospitalize by Provider. 12:15 CT Study completed. [facility] [place] 13:00 Discharge Assessment: patient administered narcotics - yes. Patient was admitted to the [address] or transferred to another facility. 16:59 The following High Risk Discharge criteria are identified: None. Admitted to PCU [facility] accompanied by nurse, accompanied by tech, family with patient, via stretcher, on monitor, with chart. Condition: good Condition: stable. 18:28 Patient left the ED. [facility] Signatures: Dispatcher [employer] EDMS Hyun Denson MD MD ml Marissa Dunn, Reg Reg Luis Miguel Cardoso RN RN ml6 Lauren Gonzalez RN RN hs1 Leatha Cabezas, ISSUING OPERATOR ISSUING OPERATOR ct3 Faith Dumont RN RN js13 Radha Chávez mm15 Ava Franklin, ISSUING OPERATOR ISSUING OPERATOR jlf Robyn Soto,RN RN ms18 Nima Seaman, ISSUING OPERATOR ISSUING OPERATOR jrd Roxie Santos,RN RN kc3 Corrections: (The following items were deleted from the chart) 10:08 10:07 AMYLASE+LAB sent. js13 EDMS 10:14 10:07 PT & APTT+LAB sent. js13 EDMS Chart Complete MTDD
--- NOTE | 2016-06-16 19:30 | EDDOCDS ---
Physician Documentation [facility] Name: Munira Guerra Age: 70 yrs Sex: Female : 1945 Arrival Date: 06/14/2016 Time: 09:33 Bed Admit Hold Private MD: Roshan Long H. Disposition: 06/14 12:11 Critical Care:. ml Disposition: 06/14/16 12:09 Hospitalization ordered by Ellyn Darling for Inpatient Admission. Preliminary diagnosis are Abdominal and pelvic pain, Other ulcerative colitis - rule out c difficule infection, Pulmonary embolism - known, does not appear to be a change, Diarrhea, unspecified - with elevated lactic acid, Dehydration, Cholelithiasis. - Bed requested for PCU. - Status is Inpatient Admission. ms18 - Condition is Stable. - Problem is new. - Symptoms are unchanged. Historical: - Allergies: no known allergies; - Home Meds: 1. ferrous sulfate 325 mg (65 mg iron) Oral tab daily (Last dose: 06/14/2016 07:00) 2. warfarin 3.25mg Oral tab once daily (Last dose: 06/13/2016 17:00) 3. torsemide 20 mg oral tab 1 tab once daily (Last dose: 06/14/2016 07:00) 4. sulfasalazine 500 mg Oral TbEC 1 tab 4 times per day (Last dose: 06/14/2016 07:00) - PMHx: Anemia; CHF; Depression; GERD; Hernia; Ulcerative Colitis; PE; CDIFF; - PSHx: Colectomy, Partial; - Social history: Smoking status: Patient states was never smoker of tobacco. No barriers to communication noted, Speaks appropriately for age. - Family history: Not pertinent. - : The pt / caregiver states he / she is not on anticoagulants. Home medication list is obtained from the patient. - Exposure Risk Screening:: None identified. Vital Signs: 09:36 BP 128 / 67 RA Sitting (auto/reg); Pulse 103; Resp 18; Temp 97.9(O); Pulse Ox 99% on jrd R/A; Weight 62.14 kg / 137 lbs; Height 4 ft. 10 in. (147.32 cm); Pain 7/10; 10:11 BP 118 / 64 (auto/); ms18 10:11 Pulse 80 MON; Pulse Ox 99% ; ms18 10:26 BP 119 / 69 (auto/); ms18 10:26 Pulse 82 MON; Pulse Ox 98% ; ms18 10:41 BP 117 / 57 (auto/); ms18 10:41 Pulse 70 MON; Pulse Ox 98% ; ms18 10:56 BP 128 / 59 (auto/); ms18 10:56 Pulse 68 MON; Pulse Ox 98% ; ms18 11:11 BP 113 / 59 (auto/); ms18 11:11 Pulse 68 MON; Resp 18; Pulse Ox 99% ; ms18 11:26 BP 121 / 61 (auto/); ms18 11:26 Pulse 68 MON; Pulse Ox 98% ; ms18 11:43 BP 136 / 59 (auto/); ms18 11:45 Pulse 76 MON; Pulse Ox 98% ; ms18 11:56 BP 121 / 56 (auto/); ms18 11:56 Pulse 76 MON; Pulse Ox 99% ; ms18 12:11 BP 123 / 60 (auto/); ms18 12:11 Pulse 76 MON; Pulse Ox 99% ; ms18 12:26 BP 134 / 63 (auto/); ms18 12:26 Pulse 72 MON; Pulse Ox 98% ; ms18 12:32 Temp 99.6(TE); ms18 12:41 BP 125 / 68 (auto/); ms18 12:41 Pulse 74 MON; Pulse Ox 98% ; ms18 13:11 BP 156 / 73 (auto/); ms18 13:11 Pulse 80 MON; Pulse Ox 100% ; ms18 13:26 BP 136 / 60 (auto/); ms18 13:26 Pulse 76 MON; Pulse Ox 98% ; ms18 13:41 BP 124 / 60 (auto/); ms18 13:41 Pulse 76 MON; Pulse Ox 99% ; ms18 13:55 Pulse 76 MON; Pulse Ox 99% ; ms18 13:56 BP 122 / 62 (auto/); ms18 14:10 Pulse 74 MON; Pulse Ox 99% ; ms18 14:11 BP 113 / 57 (auto/); ms18 14:25 Pulse 72 MON; Pulse Ox 98% ; ms18 14:26 BP 128 / 58 (auto/); ms18 14:40 Pulse 72 MON; Pulse Ox 98% ; ms18 14:41 BP 130 / 55 (auto/); ms18 14:55 Pulse 72 MON; Pulse Ox 98% ; ms18 14:56 BP 125 / 60 (auto/); ms18 15:11 Pulse 74 MON; Pulse Ox 98% ; ms18 15:13 BP 123 / 59 (auto/); ms18 15:26 Pulse 72 MON; Pulse Ox 99% ; ms18 15:27 BP 118 / 54 (auto/); ms18 15:43 Pulse 74 MON; Pulse Ox 98% ; ms18 15:43 BP 121 / 58 (auto/); ms18 15:44 Pulse 74 MON; Pulse Ox 98% ; ms18 15:58 BP 110 / 54 (auto/); ms18 15:59 Pulse 74 MON; Pulse Ox 98% ; ms18 16:13 BP 115 / 59 (auto/); ms18 16:14 Pulse 74 MON; Pulse Ox 98% ; ms18 16:28 BP 127 / 55 (auto/); ms18 16:28 Pulse 82 MON; Pulse Ox 99% ; ms18 16:46 BP 140 / 62 (auto/); Pulse 76; Resp 18; Temp 97; Pulse Ox 98% ; Pain 6/10; ms18 16:58 BP 123 / 56 (auto/); ms18 16:59 Pulse 72 MON; Pulse Ox 97% ; ms18 17:13 BP 118 / 57 (auto/); ms18 17:14 Pulse 72 MON; Pulse Ox 97% ; ms18 17:28 BP 109 / 56 (auto/); ms18 17:29 Pulse 72 MON; Pulse Ox 98% ; ms18 17:43 BP 118 / 56 (auto/); ms18 17:44 Pulse 70 MON; Pulse Ox 97% ; ms18 17:58 BP 112 / 66 (auto/); ms18 17:59 Pulse 72 MON; Pulse Ox 98% ; ms18 18:13 BP 124 / 67 (auto/); ms18 18:14 Pulse 68 MON; Pulse Ox 99% ; ms18 09:36 Body Mass Index 28.63 (62.14 kg, 147.32 cm) jrd MDM: 09:44 IV Saline Lock ordered. ml6 09:44 Undress patient appropriately for examination ordered. ml6 09:45 ECG WITH READING ER PHYS+CARDIAG ordered. EDMS 09:46 BMP Ordered. EDMS 09:46 CBC with Diff Ordered. EDMS 09:46 Lipase Ordered. EDMS 09:46 Liver Profile Ordered. EDMS 09:46 CIP Ordered. EDMS 09:46 D-Dimer Quant Ordered. EDMS 09:46 Troponin Ordered. EDMS 09:46 Chest, 1 View Ordered. EDMS 09:52 Stool samples ordered. ml 09:54 Lactic Acid (Aquino tube on ice) Ordered. EDMS 09:54 NS 0.9% 1000 ml IV at 250 mL/hr continuous ordered. ml 09:54 Ondansetron 4 mg IVP once ordered. ml 09:54 morphine 2 mg IVP once ordered. ml 09:54 [employer]/Pulse Ox/q 15 min VS ordered. ml 09:54 Rhythm Strip to chart ordered. ml 09:55 GASTROINTESTINAL (GI) PANEL Ordered. EDMS 10:08 AMYLASE Ordered. EDMS 10:14 PT & APTT Ordered. EDMS 10:46 Misc. Nursing Order ordered. ml 11:10 BMP Reviewed. ml 11:10 CBC with Diff Reviewed. ml 11:10 Liver Profile Reviewed. ml 11:10 D-Dimer Quant Reviewed. ml 11:10 Lactic Acid (Aquino tube on ice) Reviewed. ml 11:10 PT & APTT Reviewed. ml 11:10 Lipase Reviewed. ml 11:10 CIP Reviewed. ml 11:10 Troponin Reviewed. ml 11:10 AMYLASE Reviewed. ml 11:10 Chest, 1 View Reviewed. ml 11:12 CT Chest Angio R/O PE Ordered. EDMS 11:21 CT ABD & PELVIS W/O FOL BY WIT Ordered. EDMS 11:26 Obtain sample by nasopharyngeal swab ordered. ml 11:27 -Influenza A&B Rapid Antigen - Nose Ordered. EDMS 11:32 BED REQUEST+ADM ordered. EDMS 12:59 Admission / Observation Status ordered. EDMS 13:31 LACTIC ACID LEVEL, LACTATE Ordered. EDMS 13:45 Financial registration complete. mm15 13:45 [facility] Payment Agreement was scanned into [email or web address] and attached to record. mm15 13:59 NPO DIET ordered. EDMS 06/15 12:05 T-Sheet-- Draft Copy was scanned into REES46 and attached to record. gb Administered Medications: 06/14 10:25 Drug: Ondansetron 4 mg [ondansetron HCl 2 mg/mL intravenous solution (2 mL)] Route: kc3 IVP; Site: left antecubital; 13:00 Follow up: Response: No Adverse Reaction ms18 10:25 Drug: morphine 2 mg [morphine 2 mg/mL intravenous cartridge (1 mL)] Route: IVP; Site: kc3 left antecubital; 13:00 Follow up: Response: No Adverse Reaction; Pain is decreased ms18 10:26 Drug: NS 0.9% 1000 ml [sodium chloride 0.9 % intravenous solution] Route: IV; Rate: 250 kc3 mL/hr; Site: left antecubital; 11:16 Follow up: IVF increased to bolus rate at this time per ED doctor's request ms18 12:36 Follow up: IV Status: Completed infusion; IV Intake: 1000ml ms18 Critical Care Time: 12:11 Critical care time: Bedside Care: 90 minutes, Consultation: 10 minutes. Total time: 100 ml minutes Signatures: Dispatcher [employer] EDNE Hyun Denson MD MD ml Marissa Dunn, Reg Reg gb Luis Miguel Wallace RN RN ml6 Faith Dumont RN RN js13 Radha Chávez mm15 Robyn Soto RN RN ms18 Armando Batista RN RN mts Crane, Kelsi RN kc3 The chart was reviewed and I authenticate all verbal orders and agree with the evaluation and treatment provided.Corrections: (The following items were deleted from the chart) 09:54 09:54 GASTROINTESTINAL (GI) PANEL+JARET ordered. EDMS EDMS 10:07 09:44 [employer]/Pulse Ox/q 30 min VS ordered. ml6 js13 10:08 09:53 AMYLASE+LAB ordered. EDMS EDMS 10:14 09:47 PT & APTT+LAB ordered. EDMS EDMS 11:21 11:12 CT ABD & PELVIS WITH CONTRAST+CT ordered. EDMS EDMS 11:21 11:14 CT ABD & PELVIS W/O CONTRAST+CT ordered. EDMS EDMS 12:36 11:31 Straight cath ordered. ms18 Attachments: 13:45 [facility] mm15 06/15 12:05 T-Sheet-- Draft Copy gb Chart Complete MTDD
--- NOTE | 2016-06-16 19:30 | EDDOCDS ---
Physician Documentation [facility] Name: Munira Guerra Age: 70 yrs Sex: Female : 1945 Arrival Date: 06/14/2016 Time: 09:33 Bed Admit Hold Private MD: Roshan Long H. Disposition: 06/14 12:11 Critical Care:. ml Disposition: 06/14/16 12:09 Hospitalization ordered by Ellyn Darling for Inpatient Admission. Preliminary diagnosis are Abdominal and pelvic pain, Other ulcerative colitis - rule out c difficule infection, Pulmonary embolism - known, does not appear to be a change, Diarrhea, unspecified - with elevated lactic acid, Dehydration, Cholelithiasis. - Bed requested for PCU. - Status is Inpatient Admission. ms18 - Condition is Stable. - Problem is new. - Symptoms are unchanged. Historical: - Allergies: no known allergies; - Home Meds: 1. ferrous sulfate 325 mg (65 mg iron) Oral tab daily (Last dose: 06/14/2016 07:00) 2. warfarin 3.25mg Oral tab once daily (Last dose: 06/13/2016 17:00) 3. torsemide 20 mg oral tab 1 tab once daily (Last dose: 06/14/2016 07:00) 4. sulfasalazine 500 mg Oral TbEC 1 tab 4 times per day (Last dose: 06/14/2016 07:00) - PMHx: Anemia; CHF; Depression; GERD; Hernia; Ulcerative Colitis; PE; CDIFF; - PSHx: Colectomy, Partial; - Social history: Smoking status: Patient states was never smoker of tobacco. No barriers to communication noted, Speaks appropriately for age. - Family history: Not pertinent. - : The pt / caregiver states he / she is not on anticoagulants. Home medication list is obtained from the patient. - Exposure Risk Screening:: None identified. Vital Signs: 09:36 BP 128 / 67 RA Sitting (auto/reg); Pulse 103; Resp 18; Temp 97.9(O); Pulse Ox 99% on jrd R/A; Weight 62.14 kg / 137 lbs; Height 4 ft. 10 in. (147.32 cm); Pain 7/10; 10:11 BP 118 / 64 (auto/); ms18 10:11 Pulse 80 MON; Pulse Ox 99% ; ms18 10:26 BP 119 / 69 (auto/); ms18 10:26 Pulse 82 MON; Pulse Ox 98% ; ms18 10:41 BP 117 / 57 (auto/); ms18 10:41 Pulse 70 MON; Pulse Ox 98% ; ms18 10:56 BP 128 / 59 (auto/); ms18 10:56 Pulse 68 MON; Pulse Ox 98% ; ms18 11:11 BP 113 / 59 (auto/); ms18 11:11 Pulse 68 MON; Resp 18; Pulse Ox 99% ; ms18 11:26 BP 121 / 61 (auto/); ms18 11:26 Pulse 68 MON; Pulse Ox 98% ; ms18 11:43 BP 136 / 59 (auto/); ms18 11:45 Pulse 76 MON; Pulse Ox 98% ; ms18 11:56 BP 121 / 56 (auto/); ms18 11:56 Pulse 76 MON; Pulse Ox 99% ; ms18 12:11 BP 123 / 60 (auto/); ms18 12:11 Pulse 76 MON; Pulse Ox 99% ; ms18 12:26 BP 134 / 63 (auto/); ms18 12:26 Pulse 72 MON; Pulse Ox 98% ; ms18 12:32 Temp 99.6(TE); ms18 12:41 BP 125 / 68 (auto/); ms18 12:41 Pulse 74 MON; Pulse Ox 98% ; ms18 13:11 BP 156 / 73 (auto/); ms18 13:11 Pulse 80 MON; Pulse Ox 100% ; ms18 13:26 BP 136 / 60 (auto/); ms18 13:26 Pulse 76 MON; Pulse Ox 98% ; ms18 13:41 BP 124 / 60 (auto/); ms18 13:41 Pulse 76 MON; Pulse Ox 99% ; ms18 13:55 Pulse 76 MON; Pulse Ox 99% ; ms18 13:56 BP 122 / 62 (auto/); ms18 14:10 Pulse 74 MON; Pulse Ox 99% ; ms18 14:11 BP 113 / 57 (auto/); ms18 14:25 Pulse 72 MON; Pulse Ox 98% ; ms18 14:26 BP 128 / 58 (auto/); ms18 14:40 Pulse 72 MON; Pulse Ox 98% ; ms18 14:41 BP 130 / 55 (auto/); ms18 14:55 Pulse 72 MON; Pulse Ox 98% ; ms18 14:56 BP 125 / 60 (auto/); ms18 15:11 Pulse 74 MON; Pulse Ox 98% ; ms18 15:13 BP 123 / 59 (auto/); ms18 15:26 Pulse 72 MON; Pulse Ox 99% ; ms18 15:27 BP 118 / 54 (auto/); ms18 15:43 Pulse 74 MON; Pulse Ox 98% ; ms18 15:43 BP 121 / 58 (auto/); ms18 15:44 Pulse 74 MON; Pulse Ox 98% ; ms18 15:58 BP 110 / 54 (auto/); ms18 15:59 Pulse 74 MON; Pulse Ox 98% ; ms18 16:13 BP 115 / 59 (auto/); ms18 16:14 Pulse 74 MON; Pulse Ox 98% ; ms18 16:28 BP 127 / 55 (auto/); ms18 16:28 Pulse 82 MON; Pulse Ox 99% ; ms18 16:46 BP 140 / 62 (auto/); Pulse 76; Resp 18; Temp 97; Pulse Ox 98% ; Pain 6/10; ms18 16:58 BP 123 / 56 (auto/); ms18 16:59 Pulse 72 MON; Pulse Ox 97% ; ms18 17:13 BP 118 / 57 (auto/); ms18 17:14 Pulse 72 MON; Pulse Ox 97% ; ms18 17:28 BP 109 / 56 (auto/); ms18 17:29 Pulse 72 MON; Pulse Ox 98% ; ms18 17:43 BP 118 / 56 (auto/); ms18 17:44 Pulse 70 MON; Pulse Ox 97% ; ms18 17:58 BP 112 / 66 (auto/); ms18 17:59 Pulse 72 MON; Pulse Ox 98% ; ms18 18:13 BP 124 / 67 (auto/); ms18 18:14 Pulse 68 MON; Pulse Ox 99% ; ms18 09:36 Body Mass Index 28.63 (62.14 kg, 147.32 cm) jrd MDM: 09:44 IV Saline Lock ordered. ml6 09:44 Undress patient appropriately for examination ordered. ml6 09:45 ECG WITH READING ER PHYS+CARDIAG ordered. EDMS 09:46 BMP Ordered. EDMS 09:46 CBC with Diff Ordered. EDMS 09:46 Lipase Ordered. EDMS 09:46 Liver Profile Ordered. EDMS 09:46 CIP Ordered. EDMS 09:46 D-Dimer Quant Ordered. EDMS 09:46 Troponin Ordered. EDMS 09:46 Chest, 1 View Ordered. EDMS 09:52 Stool samples ordered. ml 09:54 Lactic Acid (Aquino tube on ice) Ordered. EDMS 09:54 NS 0.9% 1000 ml IV at 250 mL/hr continuous ordered. ml 09:54 Ondansetron 4 mg IVP once ordered. ml 09:54 morphine 2 mg IVP once ordered. ml 09:54 [employer]/Pulse Ox/q 15 min VS ordered. ml 09:54 Rhythm Strip to chart ordered. ml 09:55 GASTROINTESTINAL (GI) PANEL Ordered. EDMS 10:08 AMYLASE Ordered. EDMS 10:14 PT & APTT Ordered. EDMS 10:46 Misc. Nursing Order ordered. ml 11:10 BMP Reviewed. ml 11:10 CBC with Diff Reviewed. ml 11:10 Liver Profile Reviewed. ml 11:10 D-Dimer Quant Reviewed. ml 11:10 Lactic Acid (Aquino tube on ice) Reviewed. ml 11:10 PT & APTT Reviewed. ml 11:10 Lipase Reviewed. ml 11:10 CIP Reviewed. ml 11:10 Troponin Reviewed. ml 11:10 AMYLASE Reviewed. ml 11:10 Chest, 1 View Reviewed. ml 11:12 CT Chest Angio R/O PE Ordered. EDMS 11:21 CT ABD & PELVIS W/O FOL BY WIT Ordered. EDMS 11:26 Obtain sample by nasopharyngeal swab ordered. ml 11:27 -Influenza A&B Rapid Antigen - Nose Ordered. EDMS 11:32 BED REQUEST+ADM ordered. EDMS 12:59 Admission / Observation Status ordered. EDMS 13:31 LACTIC ACID LEVEL, LACTATE Ordered. EDMS 13:45 Financial registration complete. mm15 13:45 [facility] Payment Agreement was scanned into LIANAI and attached to record. mm15 13:59 NPO DIET ordered. EDMS 06/15 12:05 T-Sheet-- Draft Copy was scanned into LIANAI and attached to record. gb Administered Medications: 06/14 10:25 Drug: Ondansetron 4 mg [ondansetron HCl 2 mg/mL intravenous solution (2 mL)] Route: kc3 IVP; Site: left antecubital; 13:00 Follow up: Response: No Adverse Reaction ms18 10:25 Drug: morphine 2 mg [morphine 2 mg/mL intravenous cartridge (1 mL)] Route: IVP; Site: kc3 left antecubital; 13:00 Follow up: Response: No Adverse Reaction; Pain is decreased ms18 10:26 Drug: NS 0.9% 1000 ml [sodium chloride 0.9 % intravenous solution] Route: IV; Rate: 250 kc3 mL/hr; Site: left antecubital; 11:16 Follow up: IVF increased to bolus rate at this time per ED doctor's request ms18 12:36 Follow up: IV Status: Completed infusion; IV Intake: 1000ml ms18 Critical Care Time: 12:11 Critical care time: Bedside Care: 90 minutes, Consultation: 10 minutes. Total time: 100 ml minutes Signatures: Dispatcher [employer] EDDE Hyun Denson MD MD ml Marissa Dunn, Reg Reg gb Luis Miguel Wallace RN RN ml6 Faith Dumont RN RN js13 Rdaha Chávez mm15 Robyn Soto RN RN ms18 Armando Batista RN RN mts Crane, Kelsi RN kc3 The chart was reviewed and I authenticate all verbal orders and agree with the evaluation and treatment provided.Corrections: (The following items were deleted from the chart) 09:54 09:54 GASTROINTESTINAL (GI) PANEL+JARET ordered. EDMS EDMS 10:07 09:44 [employer]/Pulse Ox/q 30 min VS ordered. ml6 js13 10:08 09:53 AMYLASE+LAB ordered. EDMS EDMS 10:14 09:47 PT & APTT+LAB ordered. EDMS EDMS 11:21 11:12 CT ABD & PELVIS WITH CONTRAST+CT ordered. EDMS EDMS 11:21 11:14 CT ABD & PELVIS W/O CONTRAST+CT ordered. EDMS EDMS 12:36 11:31 Straight cath ordered. ms18 Attachments: 13:45 [facility] [place] Agreement mm15 06/15 12:05 T-Sheet-- Draft Copy gb Chart Complete MTDD
[2016-06-16 22:00] VITALS: BP 116/78
[2016-06-17] MEDS: metroNIDAZOLE 500 MG in APPROPRIATE DILUENT 1 EA IV SCH ×2 (00:58→10:11)
[2016-06-17] MEDS: VANCOMYCIN ORAL SOL 250MG/5ML ORAL SYRINGE PO SCH ×5 (00:58→23:15)
[2016-06-17] MEDS: HYDROCORTISONE 100 MG/2 ML VIAL (J1720) IV SCH ×2 (03:47→15:23)
[2016-06-17] MEDS: KCL 10MEQ IN D5/0.45NS 1000ML 1,000 ML IV SCH (03:47)
[2016-06-17 05:59] VITALS: BP 112/62
[2016-06-17 06:13] LABS: BASO # 0.2 K/mm3 (0.0-0.2); BASO % 1.9 % (0.0-1.0); EOS # 0.1 K/mm3 (0.0-0.50); EOS % 0.7 % (0.0-3.0); LARGE UNSTAINED CELL # 0.1 K/mm3 (0.0-0.4); LARGE UNSTAINED CELL % 0.7 % (0.0-4.0); LYMPH # 1.2 K/mm3 (1.5-4.5); LYMPH % 9.7 % (24.0-44.0); MEAN CORPUSCULAR HEMOGLOBIN 26.4 pg (27.0-33.0); MEAN CORPUSCULAR HGB CONC 30.2 g/dl (32.0-36.5); MEAN CORPUSCULAR VOLUME 87.5 fl (80.0-96.0); MONO # 0.4 K/mm3 (0.0-0.8); MONO % 3.6 % (0.0-5.0); NEUTROPHILS # 9.8 K/mm3 (1.8-7.7); NEUTROPHILS % 83.4 % (36.0-66.0); PLATELET COUNT, AUTOMATED 423 k/mm3 (150-450); RED CELL DISTRIBUTION WIDTH 16.5 % (11.5-14.5); WHITE BLOOD COUNT 11.7 K/mm3 (4.0-10.0)
[2016-06-17 06:14] LABS: ADD MORPHOLOGY? YES
[2016-06-17 06:20] LABS: INR 2.71
[2016-06-17 06:25] LABS: ALBUMIN 1.6 GM/DL (3.2-5.2); ALBUMIN/GLOBULIN RATIO 0.55 (1.00-1.93); ALKALINE PHOSPHATASE 118 U/L (45-117); ALT/SGPT 10 U/L (12-78); ANION GAP 7 MEQ/L (8-16); AST/SGOT 6 U/L (15-37); BILIRUBIN,TOTAL 0.2 MG/DL (0.2-1.0); BLOOD UREA NITROGEN 4 MG/DL (7-18); CALCIUM LEVEL 8.4 MG/DL (8.8-10.2); CARBON DIOXIDE LEVEL 22 MEQ/L (21-32); CHLORIDE LEVEL 116 MEQ/L (98-107); CREATININE FOR GFR 0.85 MG/DL (0.55-1.02); GLOMERULAR FILTRATION RATE > 60.0 (>45); GLUCOSE, FASTING 153 MG/DL (80-110); POTASSIUM SERUM 3.2 MEQ/L (3.5-5.1); SODIUM LEVEL 145 MEQ/L (136-145); TOTAL PROTEIN 4.5 GM/DL (6.4-8.2)
[2016-06-17] MEDS ORDERED: POTASSIUM CHLORIDE 10 MEQ SR TABLET PO ONE ×2 (06:45→17:00)
[2016-06-17 06:48] LABS: ANISOCYTOSIS 1+; HYPOCHROMASIA 1+
[2016-06-17] MEDS: MULTIVITAMINS/MINERALS THERAP 1 TAB PO SCH (10:12)
[2016-06-17] MEDS: FLUoxetine 20 MG CAP PO SCH (10:12)
[2016-06-17] MEDS: LACTOBACILLUS ACIDOPHILUS CAP (BACID) PO SCH (10:12)
[2016-06-17] MEDS: FERROUS SULFATE 325MG TAB PO SCH ×2 (10:12→20:22)
--- NOTE | 2016-06-17 10:33 | IPNPDOC ---
Assessment/Plan Date Seen Date Seen The patient was seen on 06/17/16. Problems: (1) Diarrhea Status: Acute General Surgery Problem Txt: Patient reporting episodes today. (2) C. difficile colitis Status: Acute General Surgery Problem Txt: Stool sample came back positive for C. diff. Continue Antibiotics. (3) Ulcerative colitis Status: Acute General Surgery Problem Txt: Patient has history of. Continuing steroids at this time. Plan / VTE VTE Prophylaxis Ordered?: Yes Plan Plan Text Patient is reporting decreased stool and more formed. Patient reports no abdominal pain, fevers or chills. No nausea or vomiting. Continue IV antibiotics at this time. Continue steroids at this time for patient. WBC today 06/17 is 11.7. Repeat in morning. On discharge patient will follow up with Dr. Araujo in 2 weeks. At that time will discuss cholecystectomy for chronic cholecystitis. Monitor patient for abdominal pain, WBC count and liver function. Subjective CC/HPI The patient is a 70-year-old female admitted with a reason for visit of Diarrhea. Events since last encounter Patient reported 2-3 episodes of loose stool last night. Stool was formed and not liquid. Patient reports no abdominal pain, nausea or vomiting. Patient is ambulating and afebrile. Patient is on low residue diet and is tolerating food well. General: Denies: Chills, Fatigue, Night Sweats Constitutional: Denies: Fever Eyes: Denies: Vision change ENT: Denies: Head Aches Skin: Denies: Lesions, Rash Pulmonary: Denies: Cough, Dyspnea Cardiovascular: Denies: Chest Pain, Palpitations Gastrointestinal: Reports: Diarrhea (Loose stools), Denies: Abdominal Pain, Nausea, Vomiting Genitourinary: Denies: Dysuria, Frequency Objective EYE EXAM: : EOMI: PERRLA ENT EXAM: : Atraumatic Neck Exam: : SuppleNo: JVD Chest Exam: : Diminished Heart Exam: : Normal S1: Normal S2: Rate NormalNo: Murmurs, Rubs ABDOMEN EXAM: : SoftNo: Tenderness Extremity Exam: : Normal pulsesNo: Swelling Neuro Exam: : Normal Speech VS/I&O Vital Sign - Last 24 Hours 06/16/16 06/16/16 06/16/16 06/17/16 14:00 21:02 22:00 05:59 Temp 99.1 97.7 96.6 Pulse 81 71 66 Resp 18 20 18 B/P 118/62 116/78 112/62 Pulse Ox 98 96 99 O2 Delivery Room Air Room Air Room Air Room Air I&O- Last 24 Hours up to 6 AM 06/17/16 05:59 Intake Total 2660 ml Output Total 0 ml Balance 2660 ml Labs 24H Laboratory Tests 2 06/17/16 05:55: Blood Urea Nitrogen 4L, Creatinine 0.85, Sodium Level 145, Potassium Level 3.2L , Chloride Level 116H, Carbon Dioxide Level 22, Calcium Level 8.4L, Aspartate Amino Transf (AST/SGOT) 6L, Alanine Aminotransferase (ALT/SGPT) 10L, Alkaline Phosphatase 118H, Total Bilirubin 0.2, Total Protein 4.5L, Albumin 1.6L, Albumin /Globulin Ratio 0.55L, Anion Gap 7L, Anisocytosis 1+, White Blood Count 11.7H, Red Blood Count 3.95L, Hemoglobin 10.4L, Hematocrit 34.6L, Mean Corpuscular Volume 87.5, Mean Corpuscular Hemoglobin 26.4L, Mean Corpuscular Hemoglobin Concent 30.2L, Red Cell Distribution Width 16.5H, Platelet Count 423, Neutrophils (%) (Auto) 83.4H, Lymphocytes (%) (Auto) 9.7L, Monocytes (%) (Auto) 3.6, Eosinophils (%) (Auto) 0.7, Basophils (%) (Auto) 1.9H, Neutrophils # (Auto ) 9.8H, Lymphocytes # (Auto) 1.2L, Monocytes # (Auto) 0.4, Eosinophils # (Auto) 0.1, Basophils # (Auto) 0.2, Glomerular Filtration Rate > 60.0, Hypochromasia 1+ , Large Unclassified Cells # 0.1, Large Unclassified Cells % 0.7, Platelet Estimate NORMAL, Prothromb Time International Ratio 2.71, Prothrombin Time 28.8H CBC/BMP Laboratory Tests 06/17/16 05:55 Calcium Level 8.4 L, Aspartate Amino Transf (AST/SGOT) 6 L, Alanine Aminotransferase (ALT/SGPT) 10 L, Alkaline Phosphatase 118 H, Total Bilirubin 0.2, Total Protein 4.5 L, Albumin 1.6 L, Red Blood Count 3.95 L, Mean Corpuscular Volume 87.5, Mean Corpuscular Hemoglobin 26.4 L, Mean Corpuscular Hemoglobin Concent 30.2 L, Red Cell Distribution Width 16.5 H, Neutrophils (%) ( Auto) 83.4 H, Lymphocytes (%) (Auto) 9.7 L, Monocytes (%) (Auto) 3.6, Eosinophils (%) (Auto) 0.7, Basophils (%) (Auto) 1.9 H, Neutrophils # (Auto) 9.8 H, Lymphocytes # (Auto) 1.2 L, Monocytes # (Auto) 0.4, Eosinophils # (Auto) 0.1, Basophils # (Auto) 0.2 Medications Current Medications Acetaminophen 650 mg 650 mg Q4HP PRN PO MILD PAIN OR FEVER Last administered on 06/14/16 19:02; Start 06/14/16 at 14:00; Stop 07/14/16 at 13:59 Ciprofloxacin 400 mg/IV Miscellaneous Supplies 200 ml @ 200 mls/hr Q12H IV ; Start 06/14/16 at 15:00; Stop 06/14/16 at 22:07; Status DC Ferrous Sulfate (Ferrous Sulfate) 325 mg BID PO Last administered on 06/17/16 10:12; Start 06/14/16 at 21:00; Stop 07/14/16 at 20:59 Fluoxetine HCl (PROzac) 20 mg DAILY PO Last administered on 06/17/16 10:12; Start 06/14/16 at 09:00; Stop 07/14/16 at 08:59 Heparin Sodium (Porcine) (Heparin) ASDIRECTED PRN IV SEE LABEL COMMENTS; Start 06/15/16 at 09:00; Stop 06/16/16 at 06:58; Status DC Heparin Sodium (Porcine)/IV Miscellaneous Supplies (Heparin Drip) 250 ml @ 0 mls /hr Q0M IV Last administered on 06/15/16 10:35; Start 06/15/16 at 08:50; Stop 06/16/16 at 06:58; Status DC Home Med (Med Rec Complete!) ASDIRECTED XX ; Start 06/14/16 at 12:00; Stop at 12:00; Status DC Hydrocortisone (A-Hydrocort) 25 mg Q12H IV Last administered on 06/17/16 03:47 ; Start 06/14/16 at 15:00; Stop 07/14/16 at 14:59 Hydrocortisone 25 mg 25 mg Q12H IV ; Start 06/14/16 at 14:00; Stop 07/14/16 at 13:59; Status Cancel Lactobacillus Acidophilus (Bacid) 1 ea DAILY PO Last administered on 06/17/16 10:12; Start 06/14/16 at 09:00; Stop 07/14/16 at 08:59 Metronidazole/IV Miscellaneous Supplies (Flagyl) 100 ml @ 100 mls/hr Q8H IV Last administered on 06/17/16 10:11; Start 06/14/16 at 16:00; Stop 06/21/16 at 15:59 Multivitamins (Theragram-M) 1 tab DAILY PO Last administered on 06/17/16 10:12 ; Start 06/14/16 at 09:00; Stop 07/14/16 at 08:59 Non-Formulary Medication ASDIRECTED XX ; Start 06/15/16 at 09:00; Stop at 06:58; Status DC Potassium Chloride/Dextrose/ Sod Cl (KCl 10meq In D5/ 0.45ns 1000ml) 1,000 ml @ 100 mls/hr Q10H IV Last administered on 06/17/16 03:47; Start 06/16/16 at 07 :00; Stop 06/17/16 at 10:21; Status DC Potassium Chloride (Micro-K Extencaps) 40 meq 1T@16 PO Last administered on 19:02; Start 06/14/16 at 16:00; Stop 06/14/16 at 23:59; Status DC Potassium Chloride (Micro-K Extencaps) 40 meq BID PO ; Start 06/18/16 at 09:00; Stop 07/18/16 at 08:59 Sodium Chloride (Nacl 0.9%) 1,000 ml @ 125 mls/hr Q8H IV Last administered on 06/16/16 04:52; Start 06/14/16 at 13:52; Stop 06/16/16 at 06:57; Status DC Vancomycin HCl 125 mg 125 mg Q6H PO Last administered on 06/17/16 05:57; Start 06/15/16 at 00:00; Stop 06/22/16 at 00:00 Warfarin Sodium (Coumadin) 3.75 mg DAILY@17 PO Last administered on 06/15/16t 18:31; Start 06/14/16 at 17:00; Stop 06/16/16 at 06:59; Status DC Allergies: Coded Allergies: No Known Drug Allergy (Verified Allergy, Unknown, 08/26/12) GME ATTESTATION GME ATTESTATION My preceptor for this patient encounter was Dr. Araujo and he was physically present in the building during the encounter and was fully available. As needed , all aspects of the patient interview, examination, medical decision making process, and medical care plan development were reviewed and approved by the preceptor. Preceptor is aware and concurs with the plan as stated in the body of this note and will attest to such by his/her cosignature. KIERSTEN ACHARYA DO Jun 17, 2016 10:32
[2016-06-17] MEDS ORDERED: FUROSEMIDE 40 MG/4 ML VIAL (J1940) IV ONE (12:00)
--- NOTE | 2016-06-17 12:12 | IPN ---
DATE: Patient seen and examined at the bedside. Chart has been reviewed. This morning, patient complains of lower extremity edema, difficulty ambulating secondary to heaviness of the edema. Patient has no shortness of breath, chest pain, pressure or tightness, palpitations or lightheadedness. She denies any nausea or vomiting, and has had four jelly-like bowel movements yesterday. Patient is tolerating her regular diet this morning, and has had no other complaints. Temperature 96.6, pulse 66, respiratory rate 18, blood pressure 112/62, 99% on room air. Generally, patient is awake, alert, oriented times three, answering questions appropriately. She has no conversational dyspnea, able to speak in full sentences. Lungs are clear to auscultation but diminished at the bases. Heart: S1, S2. Sinus rhythm. No murmurs, rubs, or gallops. Abdomen is soft, nontender, nondistended. Positive bowel sounds times four quadrants. No rebound or guarding. Negative rigidity. Extremities: 2+ pitting edema. White count 11, hemoglobin 10, hematocrit 34, platelet count 423. Sodium 145, potassium 3.2, chloride 116, bicarbonate 22, BUN 4, creatinine 0.85, glucose 153 , AST 6, ALT 10, alkaline phosphatase 118. Microbiology: C difficile positive. ASSESSMENT AND PLAN: This is a 70-year-old female with prior history of inflammatory bowel disease with ulcerative colitis, deep vein thrombosis (DVT), on chronic Coumadin, initially subtherapeutic on admission at 1.5, chronic obstructive pulmonary disease (COPD), on chronic oxygen, with chronic hypoxic respiratory failure, on 2 liters continuously, congestive heart failure (CHF), diastolic dysfunction, asthma, anxiety, depression, reflux, hyperlipidemia, presents to the emergency room with complaints of abdominal pain and shortness of breath, found to have a subtherapeutic international normalized ratio (INR) and saddle embolus bilaterally. Patient was placed on intravenous (IV) heparin for bridge therapy until she is therapeutic at 2.1. Patient has also been treated for abdominal pain and complaints of diarrhea when she was found to have Clostridium (C) difficile colitis and ulcerative colitis exacerbation. CURRENT ISSUES: 1. Saddle embolus with acute on chronic hypoxic respiratory failure. Currently INR is 2.7. Patient is currently on warfarin. Will continue 3 mg today. Hold for INR greater than 3. 2. C difficile colitis, dehydration and electrolyte abnormalities, low potassium, magnesium. We have supplemented. Currently on IV fluids. However, patient is tolerating diet well. No signs of dehydration, which has improved. Therefore, discontinue IV fluids, replace electrolytes and continue with oral vancomycin. Discontinue IV Flagyl as patient is currently tolerating her diet well. Continue with lactobacillus. 3. Ulcerative colitis exacerbation. Continue hydrocortisone for supportive care. 4. Lower extremity edema. 5. History of congestive heart failure. Lungs are unremarkable. No signs of congestive heart failure. Will give a dose of Lasix today. 5. Depression. Continue on Prozac. MTDD
[2016-06-17 14:00] VITALS: BP 118/69
[2016-06-17] MEDS ORDERED: WARFARIN SOD 3 MG TAB PO ONE (17:00)
[2016-06-17 22:00] VITALS: BP 110/58
[2016-06-18] MEDS: HYDROCORTISONE 100 MG/2 ML VIAL (J1720) IV SCH ×2 (02:39→14:10)
[2016-06-18] MEDS: VANCOMYCIN ORAL SOL 250MG/5ML ORAL SYRINGE PO SCH ×3 (05:46→17:16)
[2016-06-18 06:00] VITALS: BP 126/74
[2016-06-18 06:45] LABS: INR 2.1
[2016-06-18 06:57] LABS: ALBUMIN 1.9 GM/DL (3.2-5.2); ALBUMIN/GLOBULIN RATIO 0.63 (1.00-1.93); ALKALINE PHOSPHATASE 129 U/L (45-117); ALT/SGPT 15 U/L (12-78); ANION GAP 6 MEQ/L (8-16); AST/SGOT 13 U/L (15-37); BILIRUBIN,TOTAL 0.2 MG/DL (0.2-1.0); BLOOD UREA NITROGEN 5 MG/DL (7-18); CALCIUM LEVEL 8.9 MG/DL (8.8-10.2); CARBON DIOXIDE LEVEL 26 MEQ/L (21-32); CHLORIDE LEVEL 115 MEQ/L (98-107); CREATININE FOR GFR 0.86 MG/DL (0.55-1.02); GLOMERULAR FILTRATION RATE > 60.0 (>45); GLUCOSE, FASTING 108 MG/DL (80-110); POTASSIUM SERUM 4.5 MEQ/L (3.5-5.1); SODIUM LEVEL 147 MEQ/L (136-145); TOTAL PROTEIN 4.9 GM/DL (6.4-8.2)
[2016-06-18] MEDS ORDERED: FUROSEMIDE 40 MG/4 ML VIAL (J1940) IV ONE (07:00)
[2016-06-18 07:06] LABS: BASO % 0.5 % (0.0-1.0); EOS % 0.4 % (0.0-3.0); LARGE UNSTAINED CELL # 0.1 K/mm3 (0.0-0.4); LARGE UNSTAINED CELL % 1.1 % (0.0-4.0); LYMPH % 12.6 % (24.0-44.0); MEAN CORPUSCULAR HEMOGLOBIN 25.5 pg (27.0-33.0); MEAN CORPUSCULAR HGB CONC 29.4 g/dl (32.0-36.5); MEAN CORPUSCULAR VOLUME 86.8 fl (80.0-96.0); MONO # 0.3 K/mm3 (0.0-0.8); MONO % 3.3 % (0.0-5.0); NEUTROPHILS # 6.3 K/mm3 (1.8-7.7); NEUTROPHILS % 82.1 % (36.0-66.0); PLATELET COUNT, AUTOMATED 468 k/mm3 (150-450); RED CELL DISTRIBUTION WIDTH 15.7 % (11.5-14.5); WHITE BLOOD COUNT 7.7 K/mm3 (4.0-10.0)
[2016-06-18] MEDS ORDERED: ENOXAPARIN 60 MG/0.6 ML SYR (J1650) SC ONE (08:45)
[2016-06-18] MEDS: FERROUS SULFATE 325MG TAB PO SCH ×2 (10:19→20:35)
[2016-06-18] MEDS: FLUoxetine 20 MG CAP PO SCH (10:19)
[2016-06-18] MEDS: MULTIVITAMINS/MINERALS THERAP 1 TAB PO SCH (10:19)
[2016-06-18] MEDS: LACTOBACILLUS ACIDOPHILUS CAP (BACID) PO SCH (10:19)
[2016-06-18] MEDS: POTASSIUM CHLORIDE 10 MEQ SR TABLET PO SCH ×2 (10:19→19:54)
--- NOTE | 2016-06-18 11:08 | IPN ---
DATE OF SERVICE: 06/18/2016 Patient seen and examined at the bedside. Chart has been reviewed. She reports having loose bowel movements yesterday between 10 o'clock until morning, about four bowel movements, a little bit more loose, watery. No blood. Some of them are cramping during the episode of the bowel movements, but none since. No nausea or vomiting. Tolerating her diet well. Denies any problem with pain in the right upper quadrant or epigastric pain. She complains of some heaviness in the bilateral lower quadrants, as well as her lower extremities. Tolerating her diet well. No fever or chills overnight. VITAL SIGNS: Temperature 97.1, pulse 74, respiratory rate 17, blood pressure 126/74, 98% on room air. GENERAL: Patient is awake, alert, oriented times three. HEENT: Anicteric. No jaundice. Pupils are reactive. Extraocular muscles intact. Edentulous. Dry mucous membranes. No jugular venous distention. LUNGS: Diminished, but clear to auscultation. No wheezing, rales or rhonchi. HEART: S1, S2. Sinus rhythm. ABDOMEN: Soft, nontender, nondistended. Positive bowel sounds. EXTREMITIES: Positive pitting edema, 2+. White count 7.7, hemoglobin 10, hematocrit 36, platelet count 468. Sodium 147, potassium 4.5, chloride 115, bicarbonate 26, BUN 5, creatinine 0.8, glucose 108. AST 13, ALT 50, alkaline phosphatase 129. MICROBIOLOGY: Clostridium (C) difficile positive. ASSESSMENT AND PLAN: This is a 70-year-old female with history of ulcerative colitis, follows with Dr. Kiran, Dr. Andrés Araujo; deep venous thrombosis (DVT) on chronic Coumadin, initially subtherapeutic on admission at 1.5; chronic obstructive pulmonary disease (COPD) on chronic oxygen with chronic hypoxic respiratory failure on 2 liters continuously; congestive heart failure (CHF) diastolic dysfunction; asthma; anxiety; depression; reflux; hyperlipidemia, presents to the emergency department with complaints of abdominal pain, shortness of breath, found to have a subtherapeutic INR and saddle embolus bilaterally. Patient was placed on intravenous (IV) heparin for bridge therapy until she was therapeutic at 2.1-2.7 respectively. Patient has been treated for ulcerative colitis exacerbation with IV steroids, as well as Clostridium (C) difficile colitis with oral vancomycin. CURRENT ISSUES: 1. Saddle embolus with acute on chronic hypoxic respiratory failure. Current INR is 2.1. Will bridge with Lovenox to target INR of about 2.5. Hold Coumadin for INR greater than 3. 2. Clostridium (C) difficile colitis with subsequent severe dehydration, electrolyte abnormalities and hypernatremia. Patient has received intravenous fluids. We will discontinue IV Flagyl as the patient is able to tolerate oral intake, currently on lactobacillus and oral vancomycin 135 mg every 6 hours. 3. Ulcerative colitis exacerbation. Currently on 25 mg IV every [address] Araujo's management is greatly appreciated. Patient followup with Dr. Kiran, as well. 4. Congestive heart failure (CHF). Appears to be compensated at this time. I have given one dose of Lasix for symptomatic relief, but appears to be euvolemic. 5. Chronic anemia. Iron supplementation. MTDD
[2016-06-18 14:00] VITALS: BP 118/62
[2016-06-18] MEDS: WARFARIN SOD 5 MG TAB PO SCH (17:16)
[2016-06-18 22:00] VITALS: BP 108/60
[2016-06-19] MEDS: VANCOMYCIN ORAL SOL 250MG/5ML ORAL SYRINGE PO SCH ×4 (00:21→17:22)
[2016-06-19] MEDS: HYDROCORTISONE 100 MG/2 ML VIAL (J1720) IV SCH ×2 (03:36→15:38)
[2016-06-19 05:55] LABS: BASO # 0.1 K/mm3 (0.0-0.2); BASO % 0.6 % (0.0-1.0); EOS # 0.1 K/mm3 (0.0-0.50); LARGE UNSTAINED CELL # 0.1 K/mm3 (0.0-0.4); LARGE UNSTAINED CELL % 1.2 % (0.0-4.0); LYMPH # 1.5 K/mm3 (1.5-4.5); LYMPH % 17.3 % (24.0-44.0); MEAN CORPUSCULAR HEMOGLOBIN 26.2 pg (27.0-33.0); MEAN CORPUSCULAR HGB CONC 30.6 g/dl (32.0-36.5); MEAN CORPUSCULAR VOLUME 85.7 fl (80.0-96.0); MONO # 0.4 K/mm3 (0.0-0.8); MONO % 4.4 % (0.0-5.0); NEUTROPHILS # 6.7 K/mm3 (1.8-7.7); NEUTROPHILS % 75.5 % (36.0-66.0); PLATELET COUNT, AUTOMATED 410 k/mm3 (150-450); RED CELL DISTRIBUTION WIDTH 15.8 % (11.5-14.5); WHITE BLOOD COUNT 8.9 K/mm3 (4.0-10.0)
[2016-06-19 05:57] LABS: INR 1.85
[2016-06-19 06:00] VITALS: BP 108/62
[2016-06-19 06:13] LABS: ALBUMIN 1.8 GM/DL (3.2-5.2); ALBUMIN/GLOBULIN RATIO 0.67 (1.00-1.93); ALKALINE PHOSPHATASE 115 U/L (45-117); ALT/SGPT 16 U/L (12-78); ANION GAP 6 MEQ/L (8-16); AST/SGOT 15 U/L (15-37); BILIRUBIN,TOTAL 0.2 MG/DL (0.2-1.0); BLOOD UREA NITROGEN 8 MG/DL (7-18); CALCIUM LEVEL 9.2 MG/DL (8.8-10.2); CARBON DIOXIDE LEVEL 26 MEQ/L (21-32); CHLORIDE LEVEL 115 MEQ/L (98-107); CREATININE FOR GFR 0.79 MG/DL (0.55-1.02); GLOMERULAR FILTRATION RATE > 60.0 (>45); GLUCOSE, FASTING 94 MG/DL (80-110); POTASSIUM SERUM 4.2 MEQ/L (3.5-5.1); SODIUM LEVEL 147 MEQ/L (136-145); TOTAL PROTEIN 4.5 GM/DL (6.4-8.2)
[2016-06-19] MEDS ORDERED: FUROSEMIDE 40 MG/4 ML VIAL (J1940) IV ONE (08:00)
[2016-06-19] MEDS: ENOXAPARIN 80 MG/0.8 ML SYRINGE (J1650) SC SCH ×2 (08:41→20:42)
[2016-06-19 09:00] VITALS: BP 112/84
[2016-06-19] MEDS: FERROUS SULFATE 325MG TAB PO SCH ×2 (10:26→20:42)
[2016-06-19] MEDS: MULTIVITAMINS/MINERALS THERAP 1 TAB PO SCH (10:26)
[2016-06-19] MEDS: FLUoxetine 20 MG CAP PO SCH (10:27)
[2016-06-19] MEDS: LACTOBACILLUS ACIDOPHILUS CAP (BACID) PO SCH (10:27)
[2016-06-19] MEDS: POTASSIUM CHLORIDE 10 MEQ SR TABLET PO SCH (10:27)
[2016-06-19] MEDS: WARFARIN SOD 5 MG TAB PO SCH (17:23)
[2016-06-19] MEDS: MESALAMINE 250 MG CR CAP PO SCH (20:42)
[2016-06-19 22:00] VITALS: BP 128/72
[2016-06-20] MEDS: VANCOMYCIN ORAL SOL 250MG/5ML ORAL SYRINGE PO SCH ×3 (00:20→11:07)
[2016-06-20] MEDS: HYDROCORTISONE 100 MG/2 ML VIAL (J1720) IV SCH ×2 (03:45→14:13)
[2016-06-20 06:00] VITALS: BP 110/56
[2016-06-20 06:16] LABS: BASO # 0.1 K/mm3 (0.0-0.2); BASO % 0.9 % (0.0-1.0); EOS # 0.1 K/mm3 (0.0-0.50); EOS % 1.6 % (0.0-3.0); LARGE UNSTAINED CELL # 0.1 K/mm3 (0.0-0.4); LARGE UNSTAINED CELL % 1.3 % (0.0-4.0); LYMPH # 1.7 K/mm3 (1.5-4.5); LYMPH % 17.8 % (24.0-44.0); MEAN CORPUSCULAR HEMOGLOBIN 26.1 pg (27.0-33.0); MEAN CORPUSCULAR HGB CONC 31.1 g/dl (32.0-36.5); MONO # 0.5 K/mm3 (0.0-0.8); NEUTROPHILS # 6.5 K/mm3 (1.8-7.7); NEUTROPHILS % 72.4 % (36.0-66.0); PLATELET COUNT, AUTOMATED 437 k/mm3 (150-450); RED CELL DISTRIBUTION WIDTH 17.1 % (11.5-14.5)
[2016-06-20 06:21] LABS: INR 1.79
[2016-06-20 06:29] LABS: ALBUMIN 1.9 GM/DL (3.2-5.2); ALBUMIN/GLOBULIN RATIO 0.59 (1.00-1.93); ALKALINE PHOSPHATASE 107 U/L (45-117); ALT/SGPT 19 U/L (12-78); ANION GAP 5 MEQ/L (8-16); AST/SGOT 16 U/L (15-37); BILIRUBIN,TOTAL 0.2 MG/DL (0.2-1.0); BLOOD UREA NITROGEN 8 MG/DL (7-18); CALCIUM LEVEL 9.1 MG/DL (8.8-10.2); CARBON DIOXIDE LEVEL 29 MEQ/L (21-32); CHLORIDE LEVEL 111 MEQ/L (98-107); CREATININE FOR GFR 0.74 MG/DL (0.55-1.02); GLOMERULAR FILTRATION RATE > 60.0 (>45); GLUCOSE, FASTING 90 MG/DL (80-110); POTASSIUM SERUM 3.5 MEQ/L (3.5-5.1); SODIUM LEVEL 145 MEQ/L (136-145); TOTAL PROTEIN 5.1 GM/DL (6.4-8.2)
[2016-06-20] MEDS ORDERED: FUROSEMIDE 40 MG/4 ML VIAL (J1940) IV ONE (08:00)
[2016-06-20] MEDS: MULTIVITAMINS/MINERALS THERAP 1 TAB PO SCH (08:40)
[2016-06-20] MEDS: LACTOBACILLUS ACIDOPHILUS CAP (BACID) PO SCH (08:40)
[2016-06-20] MEDS: FERROUS SULFATE 325MG TAB PO SCH ×2 (08:40→20:25)
[2016-06-20] MEDS: ENOXAPARIN 80 MG/0.8 ML SYRINGE (J1650) SC SCH ×2 (08:40→20:25)
[2016-06-20] MEDS: MESALAMINE 250 MG CR CAP PO SCH ×4 (08:41→20:25)
[2016-06-20] MEDS: FLUoxetine 20 MG CAP PO SCH (08:41)
[2016-06-20] MEDS: POTASSIUM CHLORIDE 10 MEQ SR TABLET PO SCH (08:41)
[2016-06-20 14:00] VITALS: BP 122/60
[2016-06-20] MEDS: FIDAXOMICIN 200 MG TAB (DIFICID) PO SCH ×2 (14:13→20:25)
[2016-06-20] MEDS ORDERED: WARFARIN SOD 4 MG TAB PO ONE (17:00)
[2016-06-20 22:00] VITALS: BP 112/68
[2016-06-21] MEDS: HYDROCORTISONE 100 MG/2 ML VIAL (J1720) IV SCH ×2 (03:54→16:10)
[2016-06-21 06:00] VITALS: BP 116/58
[2016-06-21 06:15] LABS: BASO # 0.1 K/mm3 (0.0-0.2); BASO % 1.1 % (0.0-1.0); EOS # 0.2 K/mm3 (0.0-0.50); EOS % 2.5 % (0.0-3.0); LARGE UNSTAINED CELL # 0.2 K/mm3 (0.0-0.4); LARGE UNSTAINED CELL % 1.5 % (0.0-4.0); LYMPH # 2.5 K/mm3 (1.5-4.5); LYMPH % 23.5 % (24.0-44.0); MEAN CORPUSCULAR HEMOGLOBIN 26.1 pg (27.0-33.0); MEAN CORPUSCULAR HGB CONC 30.9 g/dl (32.0-36.5); MEAN CORPUSCULAR VOLUME 84.5 fl (80.0-96.0); MONO # 0.7 K/mm3 (0.0-0.8); MONO % 7.2 % (0.0-5.0); NEUTROPHILS # 6.4 K/mm3 (1.8-7.7); NEUTROPHILS % 64.2 % (36.0-66.0); PLATELET COUNT, AUTOMATED 440 k/mm3 (150-450); RED CELL DISTRIBUTION WIDTH 17.1 % (11.5-14.5)
[2016-06-21 06:23] LABS: INR 2.12
[2016-06-21 06:27] LABS: ALBUMIN 1.8 GM/DL (3.2-5.2); ALBUMIN/GLOBULIN RATIO 0.58 (1.00-1.93); ALKALINE PHOSPHATASE 96 U/L (45-117); ALT/SGPT 22 U/L (12-78); ANION GAP 7 MEQ/L (8-16); AST/SGOT 21 U/L (15-37); BILIRUBIN,TOTAL 0.3 MG/DL (0.2-1.0); BLOOD UREA NITROGEN 7 MG/DL (7-18); CALCIUM LEVEL 8.8 MG/DL (8.8-10.2); CARBON DIOXIDE LEVEL 29 MEQ/L (21-32); CHLORIDE LEVEL 111 MEQ/L (98-107); GLOMERULAR FILTRATION RATE > 60.0 (>45); GLUCOSE, FASTING 72 MG/DL (80-110); POTASSIUM SERUM 3.8 MEQ/L (3.5-5.1); SODIUM LEVEL 147 MEQ/L (136-145); TOTAL PROTEIN 4.9 GM/DL (6.4-8.2)
[2016-06-21 08:00] LABS: ERYTHROCYTE SEDIMENTATION RATE 18 mm/hr (0-30)
[2016-06-21] MEDS: ENOXAPARIN 80 MG/0.8 ML SYRINGE (J1650) SC SCH (08:00)
--- NOTE | 2016-06-21 08:30 | IPN ---
DATE: 06/19/2016 Patient reports increase in bowel movements yesterday to 12 from previous 9 and 2 pudding like in consistency, non-watery, non-bloody. Patient had some abdominal discomfort prior to the episode. Denies any blood. Denies nausea or vomiting. Is still tolerating her regular diet. Afebrile. No chills overnight. She denies any shortness of breath, chest pain or pressure, palpitations lightheadedness or dizziness despite subtherapeutic international normalized ratio (INR) level of 1.85 with [address] embolus on CT chest bilaterally. Temperature 98.1, pulse 75, respiratory rate 18, blood pressure 108/62, 98% on room air. Generally, patient is awake, alert, oriented times three, lying comfortably. No use of respiratory accessory muscles. Able to speak in full sentences. Extraocular muscles are intact. Normocephalic, atraumatic. No jaundice or icterus. She is edentulous with dry mucous membranes. No jugular venous distention (JVD). Lungs are diminished but clear to auscultation. No wheezing, rales or rhonchi. Heart: S1, S2. Sinus rhythm. No murmurs, rubs or gallops. Abdomen is soft , nontender, nondistended. Positive bowel sounds. Extremities: Positive pitting edema, 1+. Improved from yesterday. LABORATORY DATA: INR 1.85. White count 8.9, hemoglobin 10, hematocrit 33, platelet count 410. Sodium 147, potassium 4.2, chloride 115, bicarbonate 26, BUN 8, creatinine 0.79, glucose of 94, albumin of 1.8. C difficile positive, 06/14/2016. IMAGING STUDIES: CT abdomen and pelvis shows saddle embolus, multiple gallstones, bilateral intrarenal nephrolithiasis, enterocolitis, mural thickening to the colon, right inguinal hernia with lobule of abdominal fat. ASSESSMENT AND PLAN: This is a 70-year-old female, history of ulcerative colitis, follows with Dr. Kiran and Dr. Andrés Araujo, deep venous thrombosis (DVT) on chronic Coumadin, initially subtherapeutic on admission at 1.5, currently on room air, congestive heart failure (CHF), diastolic dysfunction, hyperlipidemia, reflux, anxiety, depression, presents to the emergency room with complaints of abdominal pain and diarrhea, found to have Clostridium difficile colitis and possible ulcerative colitis exacerbation. She was also found to have shortness of breath with subtherapeutic international normalized ratio (INR), saddle embolus bilaterally. She was placed on intravenous (IV) heparin for bridge therapy until she was therapeutic at 2.7. Will continue treatment for ulcerative colitis (UC) with IV steroids and C difficile colitis with oral vancomycin and initially with intravenous Flagyl. Once the patient tolerated her diet well, the IV Flagyl has been discontinued. IMPRESSION: 1. Saddle embolus. Patient is currently subtherapeutic, therefore will bridge with Lovenox to target INR of 2-3. Continue with Coumadin 5 mg daily, titrate if needed. 2. Clostridium difficile colitis with subsequent severe dehydration, electrolyte abnormalities, hypernatremia. Patient is tolerating her diet well. Previously been on IV Flagyl. Since she is tolerating oral intake, she has been kept on oral vancomycin and IV Flagyl has been discontinued. 3. Ulcerative colitis exacerbation. On hydrocortisone 25 IV every 12 hours. Due to increasing bowel movements, will consider adding steroid enemas. 4. Congestive heart failure. Appears to be compensated at this time. Patient did receive Lasix. Appears to be euvolemic. Monitor for severe dehydration. 5. Chronic anemia. Iron supplementation. MTDD
--- NOTE | 2016-06-21 08:33 | IPN ---
DATE: 06/20/2016 Patient seen and examined at the bedside. Chart has been reviewed. Patient has had increasing watery diarrhea about nine times since yesterday. She continues to have fullness in bilateral lower quadrants, decrease in appetite but tolerating her full liquid diet. Afebrile. Increasing abdominal distention and pain in lower quadrant. Temperature 96.1, pulse 75, respiratory rate 16, blood pressure 110/56, 98% on room air. Lungs are clear to auscultation. No wheezing, rales or rhonchi. Heart: S1, S2. Sinus rhythm. Abdomen: Soft, tender in bilateral lower quadrants. No rebound or guarding. Positive bowel sounds all four quadrants. Extremities: 2+ pitting edema. White count 9, hemoglobin 10, hematocrit 33, platelet count 437. Sodium 145, potassium 3.5, chloride 111, bicarbonate 29, BUN 8, creatinine 0.74, glucose 90. ASSESSMENT AND PLAN: This is a 70-year-old female with history of ulcerative colitis follows with Dr. Kiran, Dr. Andrés Araujo, deep vein thrombosis (DVT) , on chronic Coumadin, initially subtherapeutic on admission at 1.5, chronic obstructive pulmonary disease (COPD) on oxygen as needed at home, congestive heart failure (CHF) diastolic dysfunction, asthma, anxiety, depression, reflux, hyperlipidemia, presents to the emergency room with complaints of abdominal pain , shortness of breath, found to have subtherapeutic INR and saddle embolus bilaterally. Patient was placed on IV heparin for bridge therapy until she was therapeutic at 2.1 - 2.7 respectively. Patient has incidental finding of gallstones. HIDA scan was showing acute cholecystitis, per Dr. Araujo appears to be chronic cholecystitis as the patient had no pains. At this time, patient was treated for C. Difficile and ulcerative colitis exacerbation with IV steroids and oral vancomycin and intravenous Flagyl initially. Once she tolerated her diet well, the IV Flagyl has been discontinued. CURRENT ISSUES: 1. Clostridium difficile colitis with increasing watery diarrhea. Patient will be changed to fidaxomicin. Infectious disease specialist and Dr. Kiran consult in the morning. Monitor for toxic megacolon. Obtain sed rate, CRP as well as CT abdomen and pelvis. Continue with full supportive care. We will not advance the patient's diet for now. If she continues to have increasing abdominal distention and pain, we will discontinue full liquid diet and keep n.p.o. with IV fluids. 2. Ulcerative colitis exacerbation. Patient was started on IV steroids. Dr. Kiran consult in the morning if persistent abdominal discomfort and increasing discharge. 3. Congestive heart failure appears to be compensated at this time. Patient had been receiving and dose of Lasix, appears to be euvolemic. 4. Chronic anemia, iron supplementation. 5. Saddle embolus with current INR that is subtherapeutic. She is bridged with Lovenox to target INR of 2-3. Increase Coumadin level to reach a target INR. MTDD
[2016-06-21] MEDS: FERROUS SULFATE 325MG TAB PO SCH ×2 (09:31→21:48)
[2016-06-21] MEDS: FLUoxetine 20 MG CAP PO SCH (09:31)
[2016-06-21] MEDS: LACTOBACILLUS ACIDOPHILUS CAP (BACID) PO SCH ×2 (09:31→23:21)
[2016-06-21] MEDS: FIDAXOMICIN 200 MG TAB (DIFICID) PO SCH ×2 (09:31→21:48)
[2016-06-21] MEDS: POTASSIUM CHLORIDE 10 MEQ SR TABLET PO SCH (09:31)
[2016-06-21] MEDS: MULTIVITAMINS/MINERALS THERAP 1 TAB PO SCH (09:31)
[2016-06-21] MEDS: MESALAMINE 250 MG CR CAP PO SCH ×4 (09:32→21:48)
[2016-06-21 10:00] VITALS: BP_SYST 100; BP_SYST 70; BP_SYST 90; BP_DIAS 48; BP_DIAS 50; BP_DIAS 52
[2016-06-21] MEDS ORDERED: SODIUM CHLORIDE 0.9% 1000 ML IV ONE (11:00)
--- NOTE | 2016-06-21 11:11 | REP ---
CT abdomen pelvis without IV or bowel contrast: Comparison is 2016. The visualized lung spence are unremarkable. The hepatic parenchyma is homogeneous and unremarkable. The gallbladder is distended measuring 6.6 cm transverse diameter compatible with hydrops by measurement criteria. There is no gallbladder wall thickening. There are multiple gallbladder calculi as previously. There is no intrahepatic or extrahepatic biliary duct dilatation. There is no pericholecystic fluid. The pancreas and spleen are unremarkable. The adrenals are unremarkable. There are multiple bilateral nonobstructive renal calculi, unchanged. There is no hydronephrosis. The abdominal aorta is unremarkable. There is no small bowel distension. There is no large bowel distension. The bowel wall thickening noted previously, suggestive of enterocolitis is no longer identified. There is no distension of the transverse colon. There is no evidence of toxic megacolon. On the current study there is a midline ventral hernia in the upper abdomen anterior to the stomach, above the umbilicus, not present on the comparison study. The peritoneal defect is 8.4 cm and the hernia sac measures 8.4 cm. There is no evidence of bowel obstruction. There is a left inguinal hernia containing a loop of small bowel as a change from the comparison study. There is no small bowel obstruction. Pelvis: There is a circumferential surgical staple ring in the distal colon compatible with sigmoid resection. This is unchanged. The uterus and adnexa are unremarkable. The bladder is unremarkable. Impression: No CT evidence of toxic megacolon. There is a midline upper abdomen ventral hernia containing a loop of colon as a change from the comparison study. There is a left inguinal hernia containing a loop of small bowel as a change from the comparison study. There is no small bowel obstruction. The gallbladder is distended. By measurement and there is gallbladder hydrops. There is no gallbladder wall thickening or pericholecystic fluid and no biliary duct dilatation. Multiple gallbladder calculi are again noted. There is no ascites or adenopathy. No bowel distension or obstruction. Multiple nonobstructive bilateral renal calculi. Signed by Ramiro Anthony MD 06/20/2016 10:15 A
--- NOTE | 2016-06-21 11:12 | REP ---
Supine abdomen single AP view: Comparison is 05/01/2013. The bowel gas pattern is normal. There are surgical homeostasis clips in the abdomen on the left. There is an anastomotic surgical staple ring in the pelvis suggestive of a bowel anastomosis. These are unchanged. The left renal and left ureteral calculi identified previously are no longer present. There are multiple phleboliths in the pelvis, unchanged. Skeletal structures and soft tissues are otherwise unremarkable. Signed by Ramiro Anthony MD 06/20/2016 10:35 A
--- NOTE | 2016-06-21 13:27 | IPN ---
DATE OF SERVICE: 06/21/2016 The patient this morning complains of persistent 12-14 bowel movements since 8 p.m. last night. Tends to happen during the evening time. She also complains of possible hemorrhoidal bleeds with bright red blood this morning. Complains of some dizziness as she walks from the bathroom to the bed. Afebrile overnight. No chills. Tolerating her diet well. Abdominal discomfort is improved. No nausea or vomiting. Temperature 97.3, pulse 84, respiratory rate 18, blood pressure 116/58, 95% on room air. Input and output overnight, input of 3840, output 2475, positive 1365, 12 bowel movements. Current weight is 66.4 kg. Generally, the patient is awake, alert, oriented times three. No use of respiratory accessory muscles. The patient is able to speak in full sentences. No wheezing, rales, or rhonchi. Heart: S1, S2. Sinus rhythm. Abdomen: Soft, tender in bilateral lower quadrants. Positive bowel sounds. No hepatosplenomegaly. No rebound or guarding. Extremities: Positive trace 1+ pitting edema. IMAGING STUDIES: CT chest showing large saddle embolus occupying both right and left main pulmonary arteries extending into the left lower lobe pulmonary arterial branches centrally. Smaller in size than the massive saddle embolus visible on recent prior study 04/04/2016. Recurrent versus subacute. The patient has a dilated thick-walled gallbladder containing multiple large stones. Repeat CT abdomen and pelvis has no reading. ASSESSMENT AND PLAN: This is a 70-year-old female with history of saddle embolus since 04/04/2016, presents with subtherapeutic international normalized ratio (INR) and diarrhea. Found to have Clostridium (C) difficile colitis, possible ulcerative colitis (UC) exacerbation. Has been on intravenous (IV) hydrocortisone. CURRENT ISSUES: Are as follows: 1. Clostridium difficile colitis, increasing watery diarrhea. The patient had received oral vancomycin and IV Flagyl. Currently, on fidaxomicin due to increased watery output. Infectious disease specialist, Dr. Kimberly Stoll, and Dr. Kiran have been consulted this morning. Monitor for toxic megacolon. The patient currently has no fevers, increased white count. Repeat CT abdomen and pelvis is still pending. Sedimentation rate and C-reactive protein (CRP) has been checked. Full supportive care for now. 2. Ulcerative colitis exacerbation with bloody bowel movements this morning. Dr. Kiran has been consulted. Monitor hemoglobin and hematocrit every 6 hours. Discontinue the patient's Lovenox, as she is therapeutic this morning. The concern is the saddle embolus with interruption of anticoagulation. The patient has persistent blood loss anemia. 3. Acute blood loss anemia. The patient will be checked every 6 hours with hemoglobin and hematocrit. She has been consented for blood, type and cross 2 units red blood cells, and transfuse as needed. 4. Saddle embolus, currently with therapeutic international normalized ratio (INR). Continue to monitor for active gastrointestinal (GI) bleeding, and we may need to interrupt anticoagulation if active bleeding were persistent requiring red blood cell transfusion. CAMID
[2016-06-21 14:00] VITALS: BP_SYST 108; BP_SYST 110; BP_SYST 123; BP_DIAS 48; BP_DIAS 50; BP_DIAS 60
[2016-06-21] MEDS ORDERED: WARFARIN SOD 4 MG TAB PO ONE (17:00)
[2016-06-21 18:00] VITALS: BP_SYST 101; BP_SYST 110; BP_SYST 120; BP_DIAS 50; BP_DIAS 60
--- NOTE | 2016-06-21 19:02 | CR ---
DATE OF CONSULTATION: 06/21/2016 This is a 70-year-old white female who was admitted to [facility] on 06/14/2016. The patient has been asked to be seen by GI for evaluation of severe diarrhea in a known patient with ulcerative colitis. She apparently also has Clostridium difficile (C diff). She has some associated issues of and iron deficiency anemia diagnosed with a saddle pulmonary embolism in March 2016 and has been on chronic anticoagulation with Coumadin since then. Approximately 48 hours prior to admission, the patient had increasing abdominal pain and loose, watery diarrhea with occasional rectal bleeding up to 12 to 15 times a day. In the past, she has had bouts of diarrhea up to 23 times a day. Apparently no fevers, night sweats or shaking chills. She denies any cough or chest pain. The patient has been hospitalized for severe diarrhea evaluation. PAST MEDICAL HISTORY: 1. Positive for ulcerative colitis. 2. Iron deficiency anemia. 3. Clostridium difficile since March of 2016. 4. Hiatal hernia. 5. Gastroesophageal reflux disease (GERD). 6. Congestive heart failure. 7. Depression. 8. Pulmonary saddle embolism from March 2016. PAST SURGICAL HISTORY: 1. Status post left hemicolectomy for diverticulitis in 2006. 2. Colostomy reversal. 3. Rectocele. 4. Tonsillectomy. 5. Right total knee arthroplasty in 2013. 6. Colonoscopy by Dr. Araujo in October of 2015. SOCIAL HISTORY: The patient is retired. Cigarettes - quit in 2000. Alcohol - patient denies heavy alcohol abuse. FAMILY HISTORY: Noncontributory to the above problem. REVIEW OF SYSTEMS: Noncontributory. PHYSICAL EXAMINATION: GENERAL: She is a well developed, well nourished white female in no obvious distress at the time of consultation. CHEST: Clear to auscultation. CARDIOVASCULAR EXAM: Showed a regular rhythm. No murmurs or gallops. Normal physiological split, S1, S2. ABDOMEN: Soft, nontender, no masses, guarding, rebound, hepatosplenomegaly. Bowel sounds positive. EXTREMITIES: No cyanosis, clubbing or edema. Judy's negative. Laboratory studies on admission showed a white count of 7200, hemoglobin and hematocrit is 12 and 38. The patient's chemistry was completely normal except for an albumin of 1.6. Liver functions were normal. Renal function was normal. The patient has had stool testing for Clostridium difficile and she was positive on 06/14/2016, which showed Clostridium difficile. The patient has had a recent Clostridium difficile on 06/21/2016, which was negative by PCR. ANALYSIS: 1. History of ulcerative colitis. 2. Status post Clostridium difficile colitis. 3. Diarrhea. PLAN: 1. Plan will be to set the patient up for colonoscopy for evaluation of her ulcerative colitis (UC). 2. Possible stool transplant.
[2016-06-21 22:00] VITALS: BP_SYST 110; BP_SYST 122; BP_DIAS 62; BP_DIAS 65; BP_DIAS 70
--- NOTE | 2016-06-22 00:36 | CR ---
DATE OF CONSULTATION: 06/21/2016 INFECTIOUS DISEASE CONSULTATION Asked to consult by Dr. Tidwell for evaluation of recurrent Clostridium (C) difficile colitis in a patient with inflammatory bowel disease. HISTORY OF PRESENT ILLNESS: Munira is a pleasant 70-year-old female who was readmitted on 06/14/2016 to [facility] with worsening diarrhea where she had 23 bowel movements in one day. The patient had a previous admission with C difficile colitis on April 03 and discharged April 15. At that time, I saw the patient in consultation, and she had not improved after oral vancomycin and, therefore, was treated with fidaxomicin as well. The patient states that when she went home, she had a vancomycin tapering dose that she describes as having it three times a day for one week, twice a day for one week and then every day for one week. The patient states that her diarrhea did not fully improve. She persistently had chronic diarrhea. Her usual baseline from the inflammatory bowel disease is about 4-10 a day, so she was not sure whether this persistent diarrhea was related to the Clostridium difficile (C diff) or the inflammatory bowel disease. She continued to slowly worsen with worsening diarrhea. On the day of admission, the patient had significant bloating with pain going from her abdomen all the way to her knees. Therefore, she knew she had to come back to the hospital. Her past medical history is significant for pulmonary embolism diagnosed in March. History of inflammatory bowel disease, status post colectomy and colostomy done in 2006. Left hemicolectomy for diverticulitis done by Dr. Tilley and followed up by Dr. Araujo, followed by colostomy reversal, rectocele repair, tonsillectomy, right total knee arthroplasty in 2013 and colonoscopy done by Dr. Araujo in October of 2015. Ulcerative colitis, iron-deficiency anemia, C difficile in March of 2016, hiatus hernia with reflux, congestive heart failure, depression and saddle embolism in March 2016 SOCIAL HISTORY: She is retired. She quit smoking in 2000. Alcohol: Denies alcohol use. REVIEW OF SYSTEMS: She has no nausea, vomiting. She has chronic diarrhea, which is improved compared to the day of admission but persistent. No upper or lower extremity weakness. She does not complain of shortness of breath or chest pain like her previous admission. On physical exam, she is a well-developed, well-nourished female in no acute distress. Vital signs: Temperature is 97.9, pulse 73, blood pressure 123/60, oxygen saturation is 97% on room air. Heart: Normal S1, S2, distant. No murmurs, rubs or gallops. Lungs are clear. No wheezes, rales or rhonchi. Abdomen is soft, mildly tender in the left lower quadrant. No hepatosplenomegaly. Extremities: Trace edema. No calf tenderness. Bilateral feet are very dry with cracked skin and tinea pedis, onychomycosis all through ten toes. LABORATORY DATA: White count on admission was 11.7 down to 7.7 the next day and currently 10, hemoglobin 10.3, hematocrit 33.3, platelets 440, 64% neutrophils, 23% lymphocytes, 7% monocytes. ESR is 18. Sodium 147, potassium 3.8, chloride 111, bicarbonate 29, BUN 7, creatinine 0.7, glucose 72, calcium 8.8, AST 21, ALT 22, alkaline phosphatase 96, CRP is less than 0.3, total protein 4.9, albumin 1.8. Stool for C diff was positive on 06/14/2016 and negative on 06/21/2016. Influenza A and B was negative on 06/14/2016. CT of the abdomen was done again and followup on 06/20/2016. Gallbladder is distended compatible with hydrops. No evidence of toxic megacolon. Ventral hernia noted. No ascites, adenopathy. Multiple bilateral nonobstructive renal calculi. The bowel findings seen suggestive of enterocolitis on admission on 06/14/2016 have resolved. Gallbladder scan was done on 06/15/2016 as well. HIDA scan shows nonvisualization of the gallbladder up to 3 hours post injection, suggestive of acute cholecystitis. CT angiogram shows large saddle embolus again noted, similar morphologically except smaller in size to that of 04/04/2016. Recurrent saddle embolus versus subacute is in differential. Also noted is a dilated, thick-walled gallbladder containing multiple large stones. This is a 70-year-old female with a history of inflammatory bowel disease who was admitted with recurrent Clostridium difficile colitis, who has improved on medication, diarrhea has improved as well as abdominal pain, although she still has significant diarrhea, up to 12 a day. MEDICATIONS: - fidaxomicin 200 mg by mouth twice a day that was started on 06/20/2016, currently day #2. - ferrous sulfate 325 mg by mouth twice a day - Pentasa 1000 mg by mouth four times a day - hydrocortisone 25 mg IV every 12 hours - Prozac 20 mg by mouth daily - probiotic one tablet by mouth daily - multivitamin one tablet by mouth daily ALLERGIES: No known drug allergies. IMPRESSION: This is a 70-year-old female who was admitted with recurrent Clostridium difficile colitis after being treated in March of 2016. She was treated this hospitalization with vancomycin 125 mg by mouth every 6 hours from 06/15/2016 until 06/20/2016, as well as IV Flagyl with improvement of her symptoms. After 1 week of treatment, her colitis on CT has improved, white count is normal and her abdominal pain has markedly improved. She still has anywhere from 8 to 12 bowel movements a day. The patient's symptoms are probably a combination related to inflammatory bowel disease as well as Clostridium difficile. The patient at high risk for recurrence, has already recurred once, which happens in 25% of patients and if they recur once, then they are at risk of recurring a second time in 50% of patients, especially with high risk patients such as this one with inflammatory bowel disease.suppressive therapy in the next month to treat her inflammatory bowel disease. Her last colonoscopy was done by Dr. Araujo on 10/30/2015, which showed acute and chronic inflammation with crypt architecture disarray, cryptitis, mucosal erosion are noted extensively involving all submitted fragments. No definite granuloma. These findings are consistent with idiopathic inflammatory disease and severe inflammation. PLAN: Dr. Kiran has been consulted, and I have discussed the case with him. I would suggest having a stool transplantation as the patient is going to need immunosuppressive therapy to treat her inflammatory bowel disease which has been out of control for many years. Since the patient is at very high risk of recurrence, she will not be able to begin immunosuppressive therapy until we can prove that she has not had a recent recurrence. Still, I would suggest giving her stool transplantation and discontinue all antibiotics, discontinuing oral Dificid tonight so she will be off antibiotics for at least 24 hours. Continue with probiotic, increased to twice a day. Hopefully if she has no recurrence, then she could be started on immunosuppressive therapy in the next month to treat her inflammatory bowel disease. Her last colonoscopy was done by Dr. Araujo on 10/30/2015, which showed acute and chronic inflammation with crypt architecture disarray, cryptitis, mucosal erosion are noted extensively involving all submitted fragments. No definite granuloma. These findings are consistent with idiopathic inflammatory disease and severe inflammation. MTDD
[2016-06-22 02:00] VITALS: BP_SYST 128; BP_SYST 135; BP_SYST 150; BP_DIAS 61; BP_DIAS 71
[2016-06-22] MEDS: HYDROCORTISONE 100 MG/2 ML VIAL (J1720) IV SCH ×2 (02:30→13:57)
[2016-06-22 06:00] VITALS: BP_SYST 116; BP_SYST 119; BP_DIAS 57; BP_DIAS 58; BP_DIAS 66
[2016-06-22 06:22] LABS: INR 2.53
[2016-06-22] MEDS: FLUoxetine 20 MG CAP PO SCH (09:18)
[2016-06-22] MEDS: FERROUS SULFATE 325MG TAB PO SCH ×2 (09:18→20:08)
[2016-06-22] MEDS: MULTIVITAMINS/MINERALS THERAP 1 TAB PO SCH (09:18)
[2016-06-22] MEDS: MESALAMINE 250 MG CR CAP PO SCH ×4 (09:18→20:08)
[2016-06-22] MEDS: LACTOBACILLUS ACIDOPHILUS CAP (BACID) PO SCH ×2 (09:18→20:08)
[2016-06-22] MEDS: CLOTRIMAZOLE 1% TOPICAL CREAM 30GM TOP SCH ×2 (09:19→20:09)
[2016-06-22] MEDS: POTASSIUM CHLORIDE 10 MEQ SR TABLET PO SCH (09:19)
[2016-06-22 10:00] VITALS: BP_SYST 115; BP_SYST 120; BP_DIAS 65
[2016-06-22 10:10] VITALS: BP 120/65
[2016-06-22 14:00] VITALS: BP 125/70
--- NOTE | 2016-06-22 15:27 | IPN ---
DATE: 06/22/2016 SUBJECTIVE: Patient is seen and examined in the room today. Patient stated that her bowel movement frequency has decreased. The stool has become semi-soft. No overnight events are reported. OBJECTIVE: VITAL SIGNS: Temperature 97.7, pulse 64, respirations 18, blood pressure 115/65, pulse oximetry 96% in room air. GENERAL: No sign of acute distress. Alert and oriented times three. HEENT: Normocephalic, atraumatic. Extraocular motors grossly intact. CARDIOVASCULAR: Positive S1, S2, regular rate. LUNGS: Clear to auscultation bilaterally. ABDOMEN: Tenderness to palpation mainly in the lower quadrants. Bowel sounds present. No rebound, no guarding. EXTREMITIES: 2+ pitting edema bilaterally. No sign of cyanosis. Hemoglobin 10.4, hematocrit 33.5. ASSESSMENT AND PLAN: 1. Clostridium (C) difficile colitis. Infectious disease and gastrointestinal (GI) specialist has been consulted. Patient is scheduled to have a colonoscopy with stool transplant tomorrow. Patient's antibiotics will be discontinued today per infectious disease specialist's recommendations, so patient will have greater than 24 hours without antibiotics in preparation for her stool transplant. 2. Ulcerative colitis exacerbation with bloody bowel movements. Gastrointestinal (GI) specialist, Dr. Kiran, has been consulted. Monitor hemoglobin and hematocrit every 6 hours. Unfortunately, patient has been taking warfarin for her bilateral saddle embolism. We can not wean patient off the anticoagulation. Fortunately, patient's hemoglobin and hematocrit has been stabilized without significant blood loss. Will continue to monitor. 3. Acute blood loss anemia. Will check hemoglobin and hematocrit every 6 hours. Will give a blood transfusion if needed. 4. Bilateral saddle embolism. Patient currently has a therapeutic INR with Coumadin. Will monitor gastrointestinal (GI) bleeding. 5. Deep venous thrombosis (DVT) prophylaxis. Patient currently has a bilateral pulmonary embolus (PE). On warfarin INR is therapeutic.
[2016-06-22] MEDS ORDERED: GOLYTELY SOLN 4000 ML BTL PO ONE (16:00)
[2016-06-22 22:00] VITALS: BP 120/80
[2016-06-23] VITALS (10 sets, daily range): BP systolic 98–148; BP diastolic 54–80
[2016-06-23] MEDS: HYDROCORTISONE 100 MG/2 ML VIAL (J1720) IV SCH ×2 (02:32→15:00)
[2016-06-23 06:08] LABS: MEAN CORPUSCULAR HEMOGLOBIN 26.7 pg (27.0-33.0); MEAN CORPUSCULAR HGB CONC 30.9 g/dl (32.0-36.5); MEAN CORPUSCULAR VOLUME 86.6 fl (80.0-96.0); RED CELL DISTRIBUTION WIDTH 16.1 % (11.5-14.5)
[2016-06-23 06:18] LABS: ANION GAP 5 MEQ/L (8-16); BLOOD UREA NITROGEN 4 MG/DL (7-18); CALCIUM LEVEL 8.8 MG/DL (8.8-10.2); CARBON DIOXIDE LEVEL 26 MEQ/L (21-32); CHLORIDE LEVEL 117 MEQ/L (98-107); CREATININE FOR GFR 0.66 MG/DL (0.55-1.02); GLOMERULAR FILTRATION RATE > 60.0 (>45); GLUCOSE, FASTING 90 MG/DL (80-110); POTASSIUM SERUM 4.3 MEQ/L (3.5-5.1); SODIUM LEVEL 148 MEQ/L (136-145)
[2016-06-23 06:21] LABS: INR 2.46
[2016-06-23] MEDS ORDERED: GOLYTELY SOLN 4000 ML BTL PO ONE (07:00)
[2016-06-23] MEDS ORDERED: MIRALAX POWDER 255 GM BTL (POLYETHYLENE GLYCOL) PO ONE (07:00)
[2016-06-23] MEDS ORDERED: FECAL MICROBIOTA PREPARATION 250 ML BTL (J3590) XX ONE (08:00)
[2016-06-23] MEDS: MULTIVITAMINS/MINERALS THERAP 1 TAB PO SCH (09:16)
[2016-06-23] MEDS: LACTOBACILLUS ACIDOPHILUS CAP (BACID) PO SCH ×2 (09:17→20:07)
[2016-06-23] MEDS: POTASSIUM CHLORIDE 10 MEQ SR TABLET PO SCH (09:17)
[2016-06-23] MEDS: FLUoxetine 20 MG CAP PO SCH (09:18)
[2016-06-23] MEDS: FERROUS SULFATE 325MG TAB PO SCH ×2 (09:18→20:07)
[2016-06-23] MEDS: MESALAMINE 250 MG CR CAP PO SCH ×4 (09:18→20:07)
[2016-06-23] MEDS: CLOTRIMAZOLE 1% TOPICAL CREAM 30GM TOP SCH ×2 (09:19→20:07)
[2016-06-23] MEDS ORDERED: PROPOFOL 200 MG/20 ML VIAL As Ordered ONE (15:12)
--- NOTE | 2016-06-23 15:38 | ROOR ---
Patient Name: Munira Guerra Procedure Date: 06/23/2016 3:06 PM Date of : 1945 Age: 70 Room: [facility] Gender: Female Note Status: Finalized Procedure: Colonoscopy to Cecum + Fecal Microbiota Transplant Indications: Fecal transplant for treatment of Clostridium difficile diarrhea, Suspected left-sided chronic ulcerative colitis Providers: Aman Kiran MD Referring MD: 2. Inpatient 2. Inpatient Requesting Provider: Medicines: Monitored Anesthesia Care Complications: No immediate complications. Procedure: Pre-Anesthesia Assessment: - The heart rate, respiratory rate, oxygen saturations, blood pressure, adequacy of pulmonary ventilation, and response to care were monitored throughout the procedure. The Colonoscope was introduced through the anus and advanced to the cecum, identified by appendiceal orifice and ileocecal valve. The colonoscopy was performed without difficulty. The patient tolerated the procedure well. The quality of the bowel preparation was fair. Findings: The perianal and digital rectal examinations were normal. Non-bleeding internal hemorrhoids were found during retroflexion. The hemorrhoids were small and Grade I (internal hemorrhoids that do not prolapse). Inflammation characterized by congestion (edema), erosions, erythema, friability, granularity, loss of vascularity and pseudopolyps was found as small patches surrounded by normal mucosa in the rectum, in the recto-sigmoid colon, in the sigmoid colon and in the descending colon. The ascending colon was spared. This was moderate in severity. Fecal Microbiota Transplant (Bacteriotherapy): Donor stool was prepared using saline as per protocol. Approximately 250 mL of the emulsified donor stool was instilled in the cecum. A detailed colonoscopic exam could not be performed upon scope withdrawal secondary to limited visibility from the instilled stool. The entire examined colon appeared normal on direct and retroflexion views. Impression: - Preparation of the colon was fair. - Non-bleeding internal hemorrhoids. - Left-sided ulcerative colitis. Inflammation was found in the rectum, in the recto-sigmoid colon, in the sigmoid colon and in the descending colon. This was moderate in severity. - The entire examined colon is normal on direct and retroflexion views. - Fecal Microbiota Transplant (Bacteriotherapy) performed in the cecum. - No specimens collected. - Fecal Microbiota Transplant (Bacteriotherapy) performed. Recommendation: - [facility]. - Repeat colonoscopy in 1 year for surveillance. - The findings and recommendations were discussed with the patient. Aman Kiran MD Aman Kiran MD 06/23/2016 3:38:13 PM This report has been signed electronically. Number of Addenda: 0 Note Initiated On: 06/23/2016 3:06 PM Estimated Blood Loss: Estimated blood loss: none.
--- NOTE | 2016-06-23 17:16 | IPN ---
DATE: 06/23/2016 SUBJECTIVE: Patient is seen and examined in the room today. Patient is in the process of taking MiraLAX for the bowel preparation. Patient is going for colonoscopy with a stool transplant in the afternoon. Patient denies any blood in the stool. Denies any overnight events. OBJECTIVE: VITAL SIGNS: Temperature is 97.9, pulse is 66, respiration rate is 16, blood pressure is 120/80, pulse oximetry is 100% in room air. GENERAL: Fatigued, no sign of acute distress, alert and oriented times three. HEENT: Normocephalic, atraumatic. Extraocular motor grossly intact. CARDIOVASCULAR: Positive S1, S2, regular rate. LUNGS: Clear to auscultation bilaterally. ABDOMEN: Mild tenderness to palpation in the lower quadrants. Bowel sounds present. No rebound. No guarding. EXTREMITIES: 3+ pitting edema bilaterally. No sign of cyanosis. LABORATORY DATA: WBC is 6, hemoglobin 10.3, hematocrit 33.3, platelet count is 140. Sodium is 148, potassium 4.3, chloride is 117, carbon dioxide 26, BUN 4, creatinine 0.66, GFR greater than 60, fasting glucose 90, calcium is 8.8. PT is 26.7, INR is 2.46. ASSESSMENT AND PLAN: 1. Clostridium (C) difficile colitis. Patient is scheduled for a colonoscopy with stool transplant by Dr. Kiran. Patient's antibiotic has been on hold since yesterday. It will be more than 24 hours before the stool transplant. Dr. Stoll has been assisting on the case. 2. Ulcerative colitis exacerbation with bloody bowel movements. Patient denies any blood in the stool currently. Patient is taking Pentasa 1000 mg by mouth four times a day. 3. Acute blood loss anemia. No blood observed in the stool currently. We will continue to trend the patient's hemoglobin and hematocrit every six hours. Patient has Bilateral saddle embolism and therefore patient required anticoagulation from the warfarin. Patient's hemoglobin and hematocrit has remained stable at this moment. Patient had bilateral saddle embolism and patient is currently on Coumadin. Patient's international normalized ratio (INR) is therapeutic. We will check INR daily. We will monitor patient's gastrointestinal (GI) bleeding. 4. Deep venous thrombosis (DVT) prophylaxis. Patient is currently on warfarin with a therapeutic INR.
[2016-06-24 02:00] VITALS: BP 96/54
[2016-06-24] MEDS: HYDROCORTISONE 100 MG/2 ML VIAL (J1720) IV SCH ×2 (03:46→15:37)
[2016-06-24 06:00] VITALS: BP 129/59
[2016-06-24 06:20] LABS: MEAN CORPUSCULAR HGB CONC 31.1 g/dl (32.0-36.5); MEAN CORPUSCULAR VOLUME 86.7 fl (80.0-96.0); RED CELL DISTRIBUTION WIDTH 16.1 % (11.5-14.5); WHITE BLOOD COUNT 6.4 K/mm3 (4.0-10.0)
[2016-06-24 06:35] LABS: ANION GAP 5 MEQ/L (8-16); BLOOD UREA NITROGEN 4 MG/DL (7-18); CALCIUM LEVEL 8.9 MG/DL (8.8-10.2); CARBON DIOXIDE LEVEL 26 MEQ/L (21-32); CHLORIDE LEVEL 116 MEQ/L (98-107); CREATININE FOR GFR 0.74 MG/DL (0.55-1.02); GLOMERULAR FILTRATION RATE > 60.0 (>45); GLUCOSE, FASTING 79 MG/DL (80-110); POTASSIUM SERUM 4.4 MEQ/L (3.5-5.1); SODIUM LEVEL 147 MEQ/L (136-145)
[2016-06-24] MEDS: FLUoxetine 20 MG CAP PO SCH (09:08)
[2016-06-24] MEDS: POTASSIUM CHLORIDE 10 MEQ SR TABLET PO SCH (09:08)
[2016-06-24] MEDS: LACTOBACILLUS ACIDOPHILUS CAP (BACID) PO SCH ×2 (09:08→21:58)
[2016-06-24] MEDS: MESALAMINE 250 MG CR CAP PO SCH ×4 (09:08→21:59)
[2016-06-24] MEDS: MULTIVITAMINS/MINERALS THERAP 1 TAB PO SCH (09:08)
[2016-06-24] MEDS: FERROUS SULFATE 325MG TAB PO SCH ×2 (09:08→21:58)
[2016-06-24] MEDS: CLOTRIMAZOLE 1% TOPICAL CREAM 30GM TOP SCH ×2 (09:09→21:59)
[2016-06-24 10:00] VITALS: BP_SYST 130; BP_SYST 139; BP_DIAS 65; BP_DIAS 70
[2016-06-24] MEDS ORDERED: FUROSEMIDE 40 MG/4 ML VIAL (J1940) IV ONE (11:00)
[2016-06-24] MEDS: ENOXAPARIN 80 MG/0.8 ML SYRINGE (J1650) SC SCH ×2 (11:36→22:00)
[2016-06-24 14:00] VITALS: BP 120/60
--- NOTE | 2016-06-24 16:26 | IPN ---
DATE: 06/24/2016 SUBJECTIVE: Patient seen and examined in the room today. Patient stated she tolerated the stool transplant yesterday well. Patient did complain about worsening lower extremity swelling and is getting very uncomfortable now. Patient started the solid diet yesterday after the procedure. Patient tolerated it well. Patient stated after stool transplant, patient still has intermittent loose stools. OBJECTIVE: VITAL SIGNS: Temperature is 96.8, pulse 73, respirations 20, blood pressure is 129/59, pulse oximetry 98% in room air. GENERAL: No sign of acute distress, alert and oriented times three. HEENT: Normocephalic, atraumatic. Extraocular motor grossly intact. CARDIOVASCULAR: Positive S1, S2, regular rate. LUNGS: Clear to auscultation bilaterally. ABDOMEN: No tenderness to palpation. Bowel sounds present. No rebound. No guarding. EXTREMITIES: 3+ pitting edema bilaterally. No sign of cyanosis. LABORATORY DATA: WBC is 6.4, hemoglobin 10, hematocrit is 32.3, platelet count is 470. Sodium is 147, potassium is 4.4, chloride is 116, carbon dioxide 26, BUN 4, creatinine 0.74, GFR is greater than 60, fasting glucose is 79, calcium is 8.9. PT is 32.8, INR is 2. ASSESSMENT AND PLAN: 1. Clostridium (C) difficile colitis. Patient had a stool transplant on 06/23/2016. Infectious disease and gastrointestinal (GI) specialist have been consulted. We appreciate their assistance. The patient is currently on Bacid by mouth twice a day. 2. Bilateral saddle embolism. Patient is currently taking warfarin. This decreased INR. For the past two days, INR dropped from 2.5 to 2. Due to concern that the INR would drop below the therapeutic low range, we will supplement the patient with Lovenox while adjusting patient's warfarin dose. At baseline patient is taking warfarin 3.75 mg. Currently will give the patient warfarin 5 mg by mouth to try to raise the INR. 3. Ulcerative colitis. Exacerbation with bloody bowel movements. Patient's GI specialist has been consulted. Patient denies any active blood in the stool. Patient is taking Pentasa 1000 mg four times a day. 4. History of acute blood loss anemia. No active bleeding noted at this moment. Patient is currently on warfarin for her bilateral saddle embolism. Will followup with INR. Monitor for any sign of bleeding. 5. History of chronic diastolic heart failure. Due to her C. difficile and preparation for the colonoscopy, the patient was taking a significant amount of fluid, resulting in positive net fluid balance. Patient usually taking Lasix 20 mg by mouth daily, and patient currently has sign of fluid overload. Will give the patient one dose of Lasix, monitor intake and output. Will adjust the patient's fluid status through the Lasix diuresis. 6. Deep vein thrombosis (DVT) prophylaxis. The patient is currently on warfarin with INR of 2.
[2016-06-24] MEDS ORDERED: WARFARIN SOD 5 MG TAB PO ONE (17:00)
[2016-06-24 18:00] VITALS: BP 120/68
--- NOTE | 2016-06-24 21:43 | IPN ---
DATE: 06/24/2016 Mrs. Guerra seems to be doing very well. She stated that she had her colonoscopy yesterday and stool transplantation. She had just a couple bowel movements a day that were small. Abdominal pain seems to be well controlled. No nausea or vomiting. No fever or chills. The patient's concern is her lower extremity edema and she was started on Lasix. Colonoscopy done by Dr. Kiran showed severe left-sided ulcerative colitis. Inflammation found in the rectum, rectosigmoid colon and descending colon moderate in severity. Fecal microbiota transplantation was also done. The patient will be scheduled for followup colonoscopy in one year. PHYSICAL EXAMINATION: On physical exam temperature is 98.9, pulse 91, respirations 18, blood pressure 120/60, O2 sat 96% on room air. Heart: Normal S1-S2 with no murmurs, rubs or gallops. LUNGS: Are clear. No rubs, rales or rhonchi ABDOMEN: Is soft, nontender. EXTREMITIES: +2 ankle edema. LABORATORY DATA: White count 6.4, hemoglobin 10, hematocrit 32.3, platelets 470. Sodium 147, potassium 4.4, chloride 116, bicarb 26, BUN 4, creatinine 0.74, glucose 79, calcium 8.9. IMPRESSION: 1. C difficile colitis status post stool transplantation. The patient on probiotics twice a day, fidaxomicin was discontinued 2 days ago, doing much better. 2. Moderately severe ulcerative colitis on mesalamine. The patient probably will be started on immunosuppressive therapy by Dr. Kiran. Plan to get QuantiFERON-TB Gold done tomorrow in preparation for immunosuppressed therapy. The patient has had multiple PPDs in the past while working at [facility] which have been negative. The patient could be discharged home tomorrow. There is no need for repeating stool for C diff at this point. Next week if she has recurrent diarrhea stool for C diff could be done if indicated before starting immunosuppressive therapy.
[2016-06-24 22:00] VITALS: BP 112/55
[2016-06-25] MEDS: HYDROCORTISONE 100 MG/2 ML VIAL (J1720) IV SCH ×2 (02:57→15:49)
[2016-06-25 06:00] VITALS: BP 127/71
[2016-06-25 06:15] LABS: MEAN CORPUSCULAR HEMOGLOBIN 26.9 pg (27.0-33.0); MEAN CORPUSCULAR HGB CONC 31.6 g/dl (32.0-36.5); MEAN CORPUSCULAR VOLUME 85.2 fl (80.0-96.0); WHITE BLOOD COUNT 7.3 K/mm3 (4.0-10.0)
[2016-06-25 06:26] LABS: INR 1.37
[2016-06-25 06:29] LABS: ANION GAP 7 MEQ/L (8-16); BLOOD UREA NITROGEN 8 MG/DL (7-18); CALCIUM LEVEL 8.8 MG/DL (8.8-10.2); CARBON DIOXIDE LEVEL 27 MEQ/L (21-32); CHLORIDE LEVEL 112 MEQ/L (98-107); CREATININE FOR GFR 0.73 MG/DL (0.55-1.02); GLOMERULAR FILTRATION RATE > 60.0 (>45); GLUCOSE, FASTING 101 MG/DL (80-110); POTASSIUM SERUM 3.6 MEQ/L (3.5-5.1); SODIUM LEVEL 146 MEQ/L (136-145)
[2016-06-25] MEDS: POTASSIUM CHLORIDE 10 MEQ SR TABLET PO SCH (09:52)
[2016-06-25] MEDS: MULTIVITAMINS/MINERALS THERAP 1 TAB PO SCH (09:53)
[2016-06-25] MEDS: LACTOBACILLUS ACIDOPHILUS CAP (BACID) PO SCH ×2 (09:53→20:22)
[2016-06-25] MEDS: FLUoxetine 20 MG CAP PO SCH (09:53)
[2016-06-25] MEDS: MESALAMINE 250 MG CR CAP PO SCH ×4 (09:53→20:22)
[2016-06-25] MEDS: FERROUS SULFATE 325MG TAB PO SCH ×2 (09:53→20:22)
[2016-06-25] MEDS: FUROSEMIDE 20 MG/2 ML VIAL (J1940) IV SCH ×2 (09:54→16:51)
[2016-06-25] MEDS: CLOTRIMAZOLE 1% TOPICAL CREAM 30GM TOP SCH ×2 (09:55→20:22)
[2016-06-25] MEDS: ENOXAPARIN 80 MG/0.8 ML SYRINGE (J1650) SC SCH (10:33)
--- NOTE | 2016-06-25 13:15 | IPN ---
DATE: 06/25/2016 Munira seems to be doing great. She only had a total of five bowel movements yesterday. She stated she had two during the day and three at night, which is amazing for her. She has no abdominal pain, nausea, vomiting. She is afebrile. The reason she is not discharged today is because her international normalized ratio (INR) is subtherapeutic. Prothrombin time (PT) was 17, INR 1.37. Physical exam is benign. IMPRESSION: 1. Recurrent Clostridium (C) difficile colitis status post stool transplantation. Doing much better. That was done on 06/23/2016. Continue probiotics. 2. Ulcerative colitis. The patient will need probably immunosuppressive therapy and therefore, she was given a prescription to get Zostavax as an outpatient next week at [facility]. She also had a QuantiFERON-TB Gold ordered in anticipation of possible immunosuppressive therapy by Dr. Kiran. 3. Pulmonary embolism with saddle embolism. The patient has subtherapeutic INR and therefore will not be discharged today. PLAN: From infectious disease standpoint, she could be discharged. She does not need a followup at the infectious disease clinic. She will followup with Dr. Kiran.
[2016-06-25 14:00] VITALS: BP 111/57
--- NOTE | 2016-06-25 16:06 | IPN ---
DATE: 06/25/2016 SUBJECTIVE: Patient seen and examined in the room today. Patient had three loose stools yesterday. The patient is still experiencing lower extremity swelling. Since the IV Lasix, she noticed that she has had increased urinary output. She is not sure whether the bilateral lower extremity swelling is improving, but she is willing to try the same dose for one more day. No overnight events reported. OBJECTIVE: VITAL SIGNS: Temperature is 97, pulse 70, respirations 20, blood pressure is 127/71, pulse oximetry is 97% in room air. GENERAL: No sign of acute distress, alert and oriented times three. HEENT: Normocephalic, atraumatic. Extraocular motor grossly intact. CARDIOVASCULAR: Positive S1, S2, regular rate. LUNGS: Clear to auscultation bilaterally. ABDOMEN: No tenderness to palpation. Bowel sounds present. No rebound. No guarding. EXTREMITIES: 3+ pitting edema bilaterally. No sign of cyanosis. LABORATORY DATA: WBC is 7.3, hemoglobin 10.2, hematocrit is 32.2, platelet count is 464. Sodium is 146, potassium is 3.6, chloride is 112, carbon dioxide 27, BUN is 8, creatinine 0.73, GFR is greater than 60, fasting glucose is 101, calcium is 8.8. ASSESSMENT AND PLAN: 1. Clostridium (C) difficile colitis. Patient had a stool transplant on 06/23/2016. The patient is currently on Bacid. We appreciate infectious disease and gastrointestinal specialist assistance. 2. Bilateral saddle embolism. Patient continues to drop of the INR. Due to concern for anticoagulation, the patient was restarted on the full dose of Lovenox yesterday when the patient's INR was 2. Today, the patient's INR dropped down to 1.37 while the patient is already on higher than home dose of warfarin. At baseline, the patient is taking warfarin 3.75 mg daily. She has been taking 5 mg by mouth at night. Even with the higher dose of warfarin, the patient has a decreased INR. We will increase warfarin to 7.5 and continue the same dose until the patient's INR is back to therapeutic range. 3. Ulcerative colitis exacerbation. The patient is on Pentasa 1000 mg four times a day. No active bleeding. Appreciate GI specialist's assistance. 4. History of acute blood loss anemia. Hemoglobin and hematocrit have been stable. 5. History of chronic diastolic congestive heart failure (CHF). The patient is currently on Lasix diuresis. We will monitor input. The patient received IV Lasix 40 mg times one and the patient is continued on IV Lasix 20 mg twice a day. The patient has been having negative output. No respiratory distress. We will continue to monitor the diuresis. 6. Deep vein thrombosis (DVT) prophylaxis. The patient is currently on full dose of Lovenox with titrating warfarin dose.
[2016-06-25] MEDS: WARFARIN SOD 7.5 MG TAB PO SCH (16:51)
[2016-06-25 22:00] VITALS: BP 129/60
[2016-06-26] MEDS: ENOXAPARIN 80 MG/0.8 ML SYRINGE (J1650) SC SCH ×3 (00:15→21:48)
[2016-06-26] MEDS: HYDROCORTISONE 100 MG/2 ML VIAL (J1720) IV SCH ×2 (03:50→15:04)
[2016-06-26 06:00] VITALS: BP 119/59
[2016-06-26 06:23] LABS: MEAN CORPUSCULAR HEMOGLOBIN 27.1 pg (27.0-33.0); MEAN CORPUSCULAR HGB CONC 31.1 g/dl (32.0-36.5); MEAN CORPUSCULAR VOLUME 87.1 fl (80.0-96.0); WHITE BLOOD COUNT 8.2 K/mm3 (4.0-10.0)
[2016-06-26 06:30] LABS: INR 1.49
[2016-06-26 06:39] LABS: ANION GAP 7 MEQ/L (8-16); BLOOD UREA NITROGEN 10 MG/DL (7-18); CALCIUM LEVEL 8.4 MG/DL (8.8-10.2); CARBON DIOXIDE LEVEL 29 MEQ/L (21-32); CHLORIDE LEVEL 110 MEQ/L (98-107); CREATININE FOR GFR 0.59 MG/DL (0.55-1.02); GLOMERULAR FILTRATION RATE > 60.0 (>45); GLUCOSE, FASTING 96 MG/DL (80-110); POTASSIUM SERUM 2.9 MEQ/L (3.5-5.1); SODIUM LEVEL 146 MEQ/L (136-145)
[2016-06-26] MEDS: MESALAMINE 250 MG CR CAP PO SCH ×4 (08:32→21:48)
[2016-06-26] MEDS: FERROUS SULFATE 325MG TAB PO SCH ×2 (08:32→21:47)
[2016-06-26] MEDS: LACTOBACILLUS ACIDOPHILUS CAP (BACID) PO SCH ×2 (08:32→21:47)
[2016-06-26] MEDS: MULTIVITAMINS/MINERALS THERAP 1 TAB PO SCH (08:32)
[2016-06-26] MEDS: FLUoxetine 20 MG CAP PO SCH (08:32)
[2016-06-26] MEDS: CLOTRIMAZOLE 1% TOPICAL CREAM 30GM TOP SCH ×2 (08:33→21:52)
[2016-06-26] MEDS: POTASSIUM CHLORIDE 10 MEQ SR TABLET PO SCH (08:33)
[2016-06-26] MEDS: KCL 10MEQ IN 100ML SWI (KRUN) 10 MEQ in APPROPRIATE DILUENT 1 EA IV SCH ×4 (08:33→10:28)
[2016-06-26 14:00] VITALS: BP 120/60
[2016-06-26] MEDS: WARFARIN SOD 7.5 MG TAB PO SCH (16:47)
--- NOTE | 2016-06-26 18:39 | IPN ---
DATE: 06/26/2016 SUBJECTIVE: The patient is seen and examined in the room today. The patient started to have good urinary output. Her lower extremity swelling started to decrease. However, there is still significant edema. No difficulty with her breathing. No chest pain, no palpitations. The patient has loose stool, approximately 3-4 bowel movements in the last 24 hours. No overnight events reported. OBJECTIVE: VITAL SIGNS: Temperature is 97.2, pulse 77, respirations 16, blood pressure 119/59, pulse oximetry on room air. GENERAL: No sign of acute distress. Alert and oriented times three. HEENT: Normocephalic, atraumatic. Extraocular motor grossly intact. CARDIOVASCULAR: Positive S1, S2. Regular rate. LUNGS: Clear to auscultation bilaterally. No wheezes or rhonchi. ABDOMEN: Soft, nontender, nondistended. Bowel sounds present. No rebound, no guarding. EXTREMITIES: 3+ pitting edema bilaterally, improved compared to yesterday. No sign of cyanosis. LABORATORY DATA: WBC is 8.2, hemoglobin 9.9, hematocrit 31.8, platelet count 418. Sodium 146, potassium 2.9, chloride 110, carbon dioxide 29, BUN 10, creatinine 0.59, GFR greater than 60, fasting glucose 96, calcium 8.4. ASSESSMENT AND PLAN: 1. Clostridium (C.) difficile colitis. 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 The patient has soft stool now. The patient is on Bacid. Continue to monitor. 2. Bilateral saddle embolism. The patient currently has subtherapeutic international normalized ratio (INR). Her warfarin dose was increased. The patient's INR finally started to increase. At the baseline, the patient using warfarin 3.75 mg daily. Currently the patient is on 7.5 mg daily. INR improved from 1.37 to 1.49. Currently the patient is on full dose of Lovenox bridging the warfarin. 3. Ulcerative colitis exacerbation. Patient on Pentasa 1000 mg four times a day. Gastroenterology (GI) specialist consulted. 4. History of acute blood-loss anemia. Hemoglobin and hematocrit have been stable. No active bleeding at this moment. 5. History of chronic diastolic congestive heart failure. The patient is currently on Lasix diuresis. The patient has a good negative output. We will continue Lasix. 6. Hypokalemia secondary to Lasix use. The patient will have potassium supplement. We will monitor basic metabolic panel (BMP) on a daily basis. 7. Deep venous thrombosis (DVT) prophylaxis. The patient is on full dose of Lovenox bridging with warfarin.
[2016-06-27] VITALS: BP 141/62
[2016-06-27] MEDS: HYDROCORTISONE 100 MG/2 ML VIAL (J1720) IV SCH ×2 (02:33→15:55)
[2016-06-27 06:00] VITALS: BP 128/59
[2016-06-27 06:03] LABS: MEAN CORPUSCULAR HEMOGLOBIN 27.1 pg (27.0-33.0); MEAN CORPUSCULAR HGB CONC 31.5 g/dl (32.0-36.5); MEAN CORPUSCULAR VOLUME 86.1 fl (80.0-96.0); RED CELL DISTRIBUTION WIDTH 16.5 % (11.5-14.5); WHITE BLOOD COUNT 7.9 K/mm3 (4.0-10.0)
[2016-06-27 06:19] LABS: ANION GAP 7 MEQ/L (8-16); BLOOD UREA NITROGEN 8 MG/DL (7-18); CALCIUM LEVEL 8.8 MG/DL (8.8-10.2); CARBON DIOXIDE LEVEL 27 MEQ/L (21-32); CHLORIDE LEVEL 113 MEQ/L (98-107); CREATININE FOR GFR 0.64 MG/DL (0.55-1.02); GLOMERULAR FILTRATION RATE > 60.0 (>45); GLUCOSE, FASTING 99 MG/DL (80-110); POTASSIUM SERUM 3.4 MEQ/L (3.5-5.1); SODIUM LEVEL 147 MEQ/L (136-145)
[2016-06-27 07:25] LABS: INR 1.55
[2016-06-27] MEDS: MESALAMINE 250 MG CR CAP PO SCH ×4 (08:31→21:24)
[2016-06-27] MEDS: MULTIVITAMINS/MINERALS THERAP 1 TAB PO SCH (08:31)
[2016-06-27] MEDS: FERROUS SULFATE 325MG TAB PO SCH ×2 (08:31→21:25)
[2016-06-27] MEDS: LACTOBACILLUS ACIDOPHILUS CAP (BACID) PO SCH ×2 (08:31→21:25)
[2016-06-27] MEDS: FLUoxetine 20 MG CAP PO SCH (08:31)
[2016-06-27] MEDS: POTASSIUM CHLORIDE 10 MEQ SR TABLET PO SCH ×2 (08:32→21:25)
[2016-06-27] MEDS: CLOTRIMAZOLE 1% TOPICAL CREAM 30GM TOP SCH ×2 (08:33→21:24)
[2016-06-27] MEDS: KCL 10MEQ IN 100ML SWI (KRUN) 10 MEQ in APPROPRIATE DILUENT 1 EA IV SCH ×4 (10:00→11:00)
[2016-06-27] MEDS: ENOXAPARIN 80 MG/0.8 ML SYRINGE (J1650) SC SCH ×2 (11:47→21:25)
[2016-06-27] MEDS ORDERED: POTASSIUM CHLORIDE 10 MEQ SR TABLET PO ONE (12:00)
[2016-06-27 14:00] VITALS: BP 125/55
[2016-06-27] MEDS: WARFARIN SOD 7.5 MG TAB PO SCH (15:56)
--- NOTE | 2016-06-27 16:24 | IPN ---
DATE: 06/27/2016 SUBJECTIVE: Patient is seen and examined in the room today. Patient is noted to have continuous decrease of her bilateral lower extremity swelling. Patient had one soft formed stool yesterday, no blood in the stool. No chest pain or difficulty breathing. No pleuritic pain during inspiration or expiration. No overnight events are reported. OBJECTIVE: VITAL SIGNS: Temperature 98.5, pulse 70, respirations 18, blood pressure 128/59, pulse oximetry 96% in room air. GENERAL: No sign of acute distress, alert and oriented times three. HEENT: Normocephalic, atraumatic. Extraocular motors grossly intact. CARDIOVASCULAR: Positive S1, S2, regular rate. LUNGS: Clear to auscultation bilaterally. No wheezes or rhonchi. ABDOMEN: Soft, nontender, nondistended. Bowel sounds present. No rebound, no guarding. EXTREMITIES: 3+ pitting edema bilaterally, improved compared to yesterday. No sign of cyanosis. LABORATORY DATA: WBC 7.9, hemoglobin 9.9, hematocrit 31.6, platelet count 428. Sodium 147, potassium 3.4, chloride 113, carbon dioxide 27, BUN 8, creatinine 0.64, GFR greater than 60, fasting glucose 99, calcium 8.8. PT 80.7, INR 1.55. ASSESSMENT AND PLAN: 1. Clostridium (C) difficile colitis status post stool transplant on 06/23/2016. Patient has soft stool. Patient is on Bacid. Continue to monitor. Per infectious disease specialist, Dr. Stoll, patient is stable. 2. Bilateral saddle embolism. Patient has subtherapeutic INR. Dose of warfarin is increased. At baseline, patient is taking warfarin 3.75 mg by mouth daily, currently patient is taking 7.5 mg by mouth daily. INR continues to improve in the last 2 days. Patient is currently bridging with full dose of Lovenox. 3. Ulcerative colitis exacerbation. Gastrointestinal (GI) specialist has been consulted. Patient is currently on IV hydrocortisone and Pentasa 100 mg by mouth daily. 4. History of blood loss anemia. Hemoglobin and hematocrit are stable. No active bleeding at this moment. 5. Acute on chronic diastolic congestive heart failure. Patient has been taking Lasix diuresis. Patient continues to have a good negative output. 6. Hypokalemia, secondary to increased Lasix use. Patient shows signs of fluid overload. Patient has increased dose of Lasix. Patient has decreased potassium due to increased Lasix use. Patient is currently on increased dose of potassium supplement and potassium is improving. 7. Deep venous thrombosis (DVT) prophylaxis. Patient is currently on full dose of Lovenox and bridging with warfarin.
[2016-06-27 22:00] VITALS: BP 110/62
[2016-06-28] MEDS: HYDROCORTISONE 100 MG/2 ML VIAL (J1720) IV SCH (02:20)
[2016-06-28 06:00] VITALS: BP 108/62
[2016-06-28 06:22] LABS: MEAN CORPUSCULAR HEMOGLOBIN 26.8 pg (27.0-33.0); MEAN CORPUSCULAR HGB CONC 30.8 g/dl (32.0-36.5); RED CELL DISTRIBUTION WIDTH 16.7 % (11.5-14.5); WHITE BLOOD COUNT 9.3 K/mm3 (4.0-10.0)
[2016-06-28 06:28] LABS: INR 1.96
[2016-06-28 06:37] LABS: ANION GAP 6 MEQ/L (8-16); BLOOD UREA NITROGEN 10 MG/DL (7-18); CALCIUM LEVEL 8.8 MG/DL (8.8-10.2); CARBON DIOXIDE LEVEL 27 MEQ/L (21-32); CHLORIDE LEVEL 115 MEQ/L (98-107); CREATININE FOR GFR 0.65 MG/DL (0.55-1.02); GLOMERULAR FILTRATION RATE > 60.0 (>45); GLUCOSE, FASTING 104 MG/DL (80-110); POTASSIUM SERUM 4.5 MEQ/L (3.5-5.1); SODIUM LEVEL 148 MEQ/L (136-145)
[2016-06-28] MEDS: MESALAMINE 250 MG CR CAP PO SCH (08:16)
[2016-06-28] MEDS: MULTIVITAMINS/MINERALS THERAP 1 TAB PO SCH (08:16)
[2016-06-28] MEDS: POTASSIUM CHLORIDE 10 MEQ SR TABLET PO SCH (08:16)
[2016-06-28] MEDS: FERROUS SULFATE 325MG TAB PO SCH (08:17)
[2016-06-28] MEDS: FLUoxetine 20 MG CAP PO SCH (08:17)
[2016-06-28] MEDS: CLOTRIMAZOLE 1% TOPICAL CREAM 30GM TOP SCH (08:17)
[2016-06-28] MEDS: LACTOBACILLUS ACIDOPHILUS CAP (BACID) PO SCH (08:17)
[2016-06-28] MEDS ORDERED: PRED10TA PO (09:03)
[2016-06-28] MEDS ORDERED: K-TA10TA2 PO (09:06)
[2016-06-28] MEDS: ENOXAPARIN 80 MG/0.8 ML SYRINGE (J1650) SC SCH (11:07)
--- NOTE | 2016-06-28 18:33 | DSES ---
DATE OF ADMISSION: 06/14/2016 DATE OF DISCHARGE: 06/28/2016 PRIMARY CARE PROVIDER: Dr. Roshan Long CONSULTANTS: Gastrointestinal (GI) specialist, Dr. Kiran, infectious disease, Dr. Kimberly Stoll. PROCEDURES: Stool transplant. COMPLICATIONS: None. ADMISSION/DISCHARGE DIAGNOSES: 1. Clostridium difficile colitis status post stool transplant. 2. Ulcerative colitis exacerbation. 3. History of blood loss anemia. 4. Acute on chronic diastolic congestive heart failure. 5. Hypokalemia secondary to intravenous diuresis. 6. Pulmonary embolism of the left lower lobe. HOSPITALIZATION COURSE: Patient is a 70-year-old female who presented to [facility] on 06/14/2016 for abdominal pain and frequent loose stool. GI panel was ordered, and patient was started on empiric antibiotics, IV Cipro and Flagyl. Initially Dr. Araujo was consulted. During admission patient had a CT angiogram, which was positive for pulmonary embolism visible in the left lower lobe pulmonary artery, and patient was continued on her anticoagulation. In the first few days of admission, patient was found to have a subtherapeutic INR. Patient is being bridged with heparin drip. Later, the stool sample culture study came back positive for Clostridium (C) difficile, and patient was continued on the antibiotics. Hepatobiliary iminodiacetic acid (HIDA) scan was performed, and patient showed positive for cholecystitis. After discussion with the general surgeon, Dr. Araujo, patient continued with the same conservative management. Due to concern for ulcerative colitis exacerbation, patient was also started on prednisone therapy. Then Dr. Kiran was consulted for the ulcerative colitis flare and also for the C. difficile colitis. Infectious disease, Dr. Stoll, has also been contacted. On 06/23/2016, patient had colonoscopy with stool transplant. Patient tolerated the procedure well; however, due to the preparation of the procedure and during the management for her active ulcerative colitis exacerbation and C. difficile colitis, patient started to develop sign of fluid overload, and patient had to have aggressive IV diuresis. Due to the Lasix use, patient developed hypokalemia associated with IV diuresis that later resolved with potassium supplement. After the stool transplant, patient's condition continued to improve, and patient then due to multiple changes in her management, and patient started to have a subtherapeutic INR. Patient was given a full dose of Lovenox while adjusting warfarin dosage. On 06/28/2016, patient was close to returning to her baseline, and patient was determined medically stable for discharge with recommendation to followup with primary care provider in one week. OBJECTIVE: VITAL SIGNS: Temperature is 96.7, pulse is 67, respirations 18, blood pressure 108/62, pulse oximetry 97% on room air. LABORATORY DATA: WBC is 9.3, hematocrit 9.3, hematocrit is 30.1, platelet count is 387. Sodium 148, potassium 4.5, chloride is 115, carbon dioxide 27, BUN 10, creatinine 0.65, GFR is less than 60, fasting glucose 104, calcium is 8.8. Microbiology: GI PCR panel showed positive for C. difficile on 07/15/2016. Repeat GI PCR panel on 06/21/2016 is negative. IMAGING STUDIES: Chest x-ray on 06/14/2016 showed positive for moderate elevation of left hemidiaphragm. No acute distress. CT angiogram of the chest showed large saddle emboli seen, small in size compared to 04/04/2016 on prior study. Dilated thick-walled gallbladder containing multiple large stones, unchanged from the previous study. Large saddle embolism centrally occupying both right and left pain pulmonary artery. CT of abdomen and pelvis without contrast followed by with contrast showed pulmonary embolism visible at left lower lobe pulmonary artery. Hydrops of the gallbladder with multiple large gallstones. Bilateral intrarenal nephrolithiasis. Status post left colonic resection and reanastomosis. Evident enterocolitis with enhancement and mural thickening throughout the colon. No obstructive lesions. Small right inguinal hernia suspected. Hepatobiliary iminodiacetic acid (HIDA) scan 06/15/2016 showed nonvisualization of gallbladder up to 3 hours post injection suggests acute cholecystitis. CT of abdomen and pelvis without contrast on 06/20/[address] evidence of toxic sonam colon. Midline upper abdominal ventral hernia containing a loop of colon. Left inguinal hernia containing a loop of small bowel. Gallbladder is distended. No ascites or adenopathy. No bowel retention or obstruction. Multiple nonobstructive bilateral renal calculi. DISCHARGE MEDICATIONS: - potassium chloride 20 mEq by mouth daily - prednisone 10 mg by mouth daily - ferrous sulfate 325 mg by mouth twice a day - fluoxetine 20 mg by mouth daily - Bacid one tablet by mouth daily - multivitamin one tablet by mouth daily - sulfasalazine 500 mg by mouth four times a day - torsemide 10 mg by mouth daily - warfarin 3.75 mg by mouth every evening DISCHARGE INSTRUCTIONS: Discontinue line. Discharge home. Activity as tolerated. Diet: Low-salt diet as tolerated. Patient shall followup with the primary care provider within 1 week. Patient's INR has become therapeutic on the day of discharge; however, patient has been under active warfarin adjustment. Patient should follow with the primary care provider in 3 days to have her repeat a PT/INR check and warfarin dosage re-evaluation. DISCHARGE TIME: Greater than 30 minutes. DISCHARGE CONDITION: Stable.
== END 2016-06-28 11:59 | disposition home or self-care (01) | DRG 371 ==
LOC: M ED 09:33 → M ED INP 12:57 → M PCU 18:32 → M MSPAV 06-15 19:11
PROVIDERS: ADMIT Internal Medicine; ATTEND Internal Medicine
PROC: 3E0H8GC Introduction of Other Therapeutic Substance into Lower GI, Via Natural or Artificial Opening Endoscopic (ICD-10-PCS; principal; 2016-06-23 14:10)
DX: A04.7 Enterocolitis due to Clostridium difficile (principal); I26.92 Saddle embolus of pulmonary artery without acute cor pulmonale; I50.33 Acute on chronic diastolic (congestive) heart failure; K51.911 Ulcerative colitis, unspecified with rectal bleeding; K82.1 Hydrops of gallbladder; J96.11 Chronic respiratory failure with hypoxia; D62 Acute posthemorrhagic anemia; E87.0 Hyperosmolality and hypernatremia; J44.9 Chronic obstructive pulmonary disease, unspecified; K81.1 Chronic cholecystitis; E87.6 Hypokalemia; N20.0 Calculus of kidney; K80.20 Calculus of gallbladder without cholecystitis without obstruction; Z79.899 Other long term (current) drug therapy; Z87.891 Personal history of nicotine dependence; K21.9 Gastro-esophageal reflux disease without esophagitis; K40.91 Unilateral inguinal hernia, without obstruction or gangrene, recurrent; K64.8 Other hemorrhoids

== ENCOUNTER 2016-08-03 18:56 | Inpatient (IN) | payer MEDICARE, OTHER ==
[~2016-08-03] VITALS: Ht 147.3 cm; Wt 63.0 kg
[~2016-08-03 18:56] MED LIST changes: +K-TA10TA2 PO; +TORS10TA3 PO; +WARF-21 PO
[2016-08-03 20:07] LABS: BASO # 0.1 K/mm3 (0.0-0.2); BASO % 0.6 % (0.0-1.0); EOS # 0.2 K/mm3 (0.0-0.50); EOS % 1.7 % (0.0-3.0); LARGE UNSTAINED CELL # 0.1 K/mm3 (0.0-0.4); LARGE UNSTAINED CELL % 1.4 % (0.0-4.0); LYMPH # 1.4 K/mm3 (1.5-4.5); LYMPH % 14.4 % (24.0-44.0); MEAN CORPUSCULAR HEMOGLOBIN 26.9 pg (27.0-33.0); MEAN CORPUSCULAR HGB CONC 31.4 g/dl (32.0-36.5); MEAN CORPUSCULAR VOLUME 85.9 fl (80.0-96.0); MONO # 0.7 K/mm3 (0.0-0.8); MONO % 7.3 % (0.0-5.0); NEUTROPHILS % 74.6 % (36.0-66.0); PLATELET COUNT, AUTOMATED 459 k/mm3 (150-450); RED CELL DISTRIBUTION WIDTH 13.3 % (11.5-14.5); WHITE BLOOD COUNT 9.4 K/mm3 (4.0-10.0)
[2016-08-03 20:10] LABS: INR 1.85
[2016-08-03 20:20] LABS: ALKALINE PHOSPHATASE 139 U/L (45-117); ALT/SGPT 16 U/L (12-78); AMYLASE 28 U/L (25-115); ANION GAP 8 MEQ/L (8-16); AST/SGOT 20 U/L (15-37); BILIRUBIN,DIRECT 0.1 MG/DL (0.0-0.2); BILIRUBIN,TOTAL 0.4 MG/DL (0.2-1.0); BLOOD UREA NITROGEN 9 MG/DL (7-18); CALCIUM LEVEL 8.8 MG/DL (8.8-10.2); CARBON DIOXIDE LEVEL 30 MEQ/L (21-32); CHLORIDE LEVEL 105 MEQ/L (98-107); CREATININE FOR GFR 0.86 MG/DL (0.55-1.02); GLOMERULAR FILTRATION RATE > 60.0 (>45); GLUCOSE, FASTING 86 MG/DL (80-110); POTASSIUM SERUM 3.8 MEQ/L (3.5-5.1); SODIUM LEVEL 143 MEQ/L (136-145)
[2016-08-03 20:21] LABS: ALBUMIN 1.8 GM/DL (3.2-5.2); ALBUMIN/GLOBULIN RATIO 0.56 (1.00-1.93)
[2016-08-03] MEDS ORDERED: NS 1,000 ML IV ONE (21:00)
[2016-08-03] MEDS ORDERED: NS 500 ML IV ONE (22:30)
[2016-08-03] MEDS ORDERED: WARF-20 PO (23:23)
[2016-08-03] MEDS ORDERED: POTA10CA PO (23:23)
[2016-08-03] MEDS ORDERED: OMEP40CA2 PO (23:23)
[2016-08-03] MEDS ORDERED: TORS10TA3 PO (23:23)
[2016-08-03 23:56] LABS: ERYTHROCYTE SEDIMENTATION RATE 19 mm/hr (0-30)
[2016-08-04] MEDS ORDERED: NS 1,000 ML IV SCH ×2 (00:24→06:30)
[2016-08-04] MEDS ORDERED: ONDANSETRON 4MG/2ML VIAL (J2405) IV PRN (00:30)
[2016-08-04 00:40] VITALS: BP 122/60
[2016-08-04] MEDS ORDERED: TORSEMIDE 10 MG TABLET PO PRN (02:45)
[2016-08-04] MEDS ORDERED: OMEPRAZOLE 20 MG CAP PO PRN (02:45)
[2016-08-04] MEDS ORDERED: PIPERACILLIN/TAZOBACTAM SOD 3.375 GM in D5W MINI-BAG PLUS 50 ML IV SCH (03:00)
[2016-08-04] MEDS ORDERED: GASTROGRAFIN SOLUTION 30ML PO ONE (03:15)
[2016-08-04] MEDS ORDERED: GASTROGRAFIN SOLUTION 30ML (Q9963) PO ONE (03:45)
--- NOTE | 2016-08-04 04:07 | HPEPDOC ---
General Date of Admission Aug 03, 2016 at 23:04 Attending Physician: PARVEEN DANG MD Chief Complaint The patient is a 70-year-old female admitted with a reason for visit of Ulcerative Colitis. Source: Patient, RN notes reviewed, Old records Exam Limitations: No limitations Timing/Duration: Week(s) (symptoms started 2 weeks ago) Associated Symptoms: Chills, Headaches, Weakness, Dizziness History of Present Illness Ms. Guerra is a 70-year-old female who presents to [facility]'s emergency Department with blood in her stool. She is evaluated and examined in her hospital room, bed 4224. Past medical history significant for history of rectal bleeding, idiopathic inflammatory bowel disease/ulcerative colitis, diverticulosis, history of diverticulitis, history of pancolitis, internal hemorrhoids, history of abdominal adhesions, history of proctitis, history of abdominal wall fistula tract, history of large bowel obstruction and small bowel obstruction, history of Clostridium difficile infection, diarrhea, degenerative joint disease, history of dermal melanocytic nevus, diastolic congestive heart failure, history of bilateral pulmonary embolism, history of ESBL urinary tract infection , depression, gastroesophageal reflux disease, Lasix associated hypokalemia, cholelithiasis, hiatal hernia. Patient states that prior to 10 years ago, as far she can recall, her bowel movements were "normal". 10 years ago to the month patient states that she developed stomach pains, fever, nonbloody emesis and subsequently had a sigmoidectomy with resulting colostomy and eventual reversal of colostomy. Since then patient states she has had watery, soft, mucoid diarrhea. Approximately 2 weeks ago patient states that her stools became bloody. She states that the blood in her stool is dark with small clots. She does not note blood on the toilet paper, however notes blood in the toilet bowl. She notes a history of hemorrhoids and notes that the blood associated with her hemorrhoids is light red with clots and that the bleeding that started 2 weeks ago is different from the blood associated with her hemorrhoids. She notes that approximately 3-4 of her bowel movements each day would be bloody. She states that the episodes initially start with the pain across her entire stomach that she describes as sharp, constant, and pressure-like. Also notes pain in her left flank. She notes that her stomach also swells and feels "hard as a rock ". She has a feeling as if blood is rushing up to her head without associated diaphoresis, flushing. This is accompanied by a headache that she experiences behind her eyes. She states that the headache abates by itself without any pharmacological intervention. She states that within minutes she knows that she needs to use the restroom and she knows that the symptoms are associated with a bloody bowel movement. She notes no blood on the toilet paper. She does state that pain does subside after the bowel movement and that the pain in her stomach is also lessened when she takes a deep breath and the swelling in her stomach will also recede after she has had a bowel movement. She has associated cramps with her bowel movements. She recalls no history of constipation or ever having a normal bowel movement. She wears adult diapers secondary to fecal incontinence. She has associated dizziness, lightheaded, and weakness without falls. She does have a walker and a cane that she uses when out of the home. She admits to decreased oral liquid and solid intake and notes a significant weight loss. She recalls from a prior admission that she weighed approximately 200 pounds, but at this admission she now weighs 130 pounds. She denies vomiting and hematemesis. She notes a similar pain under her left hemidiaphragm under the ribs. Besides positive review of systems noted above she also admits to tingling in her right hand and bilateral feet, pain with palpation of lower extremities, facial itchiness (especially around her mouth), burning sensation in her mouth, back pain (that improves with ambulation), palpitations that appear intermittent and random and last for a while and margaret by themselves, achy jaw pain that has been present for 2 weeks (0/10 at its mildest, 8/10 at its most severe) and hurts when she lays on her left side, blurry vision, always cold and chilly, tremulousness. She denies fever, night sweats, acute changes to hearing (including acute hearing loss), sore throat, facial pain or pressure, double vision, acute vision loss, chest pain, chest pressure, skin rashes or lesions, open wounds, urinary frequency, urinary urgency, dysuria, hematuria, constipation. Hospitalist service with consulted and patient was admitted for subsequent medical management. Home Medications Scheduled Enoxaparin (Lovenox) 60 Mg/0.6 Ml Syr 60 MG SC BID Ferrous Sulfate (Ferrous Sulfate) 325 Mg Tab 325 MG PO BID (Reported) Fidaxomicin (Dificid) 200 Mg Tab 200 MG PO BID Fluoxetine Hcl (Fluoxetine) 20 Mg Cap 20 MG PO DAILY (Reported) Lactobacillus Acidophilus (Bacid) 1 Tab Tab 1 TAB PO DAILY (Reported) Multivitamins *[facility] STOCKED* (Thera M Plus *[facility] STOCKED*) 1 Tab Tab 1 TAB PO DAILY (Reported) Potassium Chloride (Klor-Con M10) 10 Meq Tabcr 10 MEQ PO DAILY (Reported) Sulfasalazine (Sulfasalazine) 500 Mg Tab 500 MG PO ACHS (Reported) Torsemide (Torsemide) 10 Mg Tab 10 MG PO DAILY (Reported) Warfarin Sod (Warfarin Sodium) 4 Mg Tab 4 MG PO QHS (Reported) Scheduled PRN Omeprazole (Omeprazole) 40 Mg Cap 40 MG PO DAILY PRN PRN ACID REFLUX (Reported) Torsemide (Torsemide) 10 Mg Tab 10 MG PO DAILY PRN PRN FLUID BUILD UP (Reported ) TAKES SECOND DOSE IF WEIGHT IS UP MORE THAN 2 LBS Allergies Coded Allergies: No Known Drug Allergy (Verified Allergy, Unknown, 08/03/16) Past Medical History Medical History 1. Diastolic congestive heart failure 2. History of bilateral pulmonary embolism, 04/04/2016 3. Idiopathic inflammatory bowel disease/ulcerative colitis 4. Diarrhea 5. Gastroesophageal reflux disease 6. Depression 7. Degenerative joint disease 8. Lasix associated hypokalemia 9. Iron deficiency anemia 10. Internal hemorrhoids 11. Diverticulosis 12. History of Clostridium difficile infection 13. History of abdominal adhesions 14. History of large bowel and small bowel obstructions 15. History of abdominal wall fistula tract 16. History of proctitis 17. History of pancolitis 18. History of diverticulitis 19. History of morbid obesity 20. History of Demerol melanocytic nevus 21. History of rectal bleeding 22. Hiatal hernia 23. Cholelithiasis 24. History of ESBL urinary tract infection Surgical History 1. Right knee arthroplasty 2. Left facial dermal melanocytic nevus excision 3. Ventral hernia repair 4. Colostomy with reversal 5. Fecal microbiotic transplant 6. History of colonoscopies 7. Open abdominal wound closure 8. Exploratory laparotomy resulting in sigmoidectomy 9. 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 [employer] Denies environmental exposures Review of Symptoms Constitutional: Reports: Chills, Weakness, Weight Loss, Denies: Fever, Night Sweats Eyes: Reports: Other (admits to blurry vision, oral burning sensation, facial pruritus especially around the mouth; denies diplopia, acute transient vision loss) ENT: Reports: Head Aches (behind eyes bilaterally), Other Symptoms (admits to left jaw pain, achy in nature; denies hematemesis), Denies: Sinus Congestion, Sore Throat Skin: Reports: Dry (noted on upper extremities bilaterally), Itching (facial pruritus, especially around the mouth), Other (denies cutaneous flushing), Denies: Lesions, Nail Changes, Rash Pulmonary: Reports: Other Symptoms (denies wheeze), Denies: Cough, Dyspnea Cardiovascular: Reports: Edema (chronic ankle swelling bilaterally noted after prior admission in [place] 2017), Lt Headedness, Palpitations (intermittent, random, last a while, margaret spontaneously), Denies: Chest Pain, Orthopnea, Paroxysmal Noc. Dyspnea Gastrointestinal: Reports: Abdominal Pain (sharp, constant, pressure-like), Diarrhea (acutely bloody; normally watery, soft, mucoid), Other Symptoms ( associated swelling noted with abdominal pain, admits to fecal incontinence), Vomiting Genitourinary: Denies: Dysuria, Frequency, Hematuria, Incontinence Hematologic: Denies: Bruising, Petecchia, Purpura Endocrine: Reports: Cold Intolerance Musculoskeletal: Reports: Back Pain (appears to improve ambulation), Leg Pain ( bilateral lower extremity pain with palpation), Other Symptoms (admits to history of tremors and extremities, sharp, constant, pressure-like pain located under the left hemidiaphragm under the ribs) Neurological: Reports: Other Symptoms (admits to dizziness, tingling in right hand and bilateral feet, denies falls), Weakness Psych: Reports: Depression, Denies: Thoughts of Self Harm (denies suicidal ideation) Physical Examination General Exam: Positive: Alert, Cooperative, Other (appears older than stated age) Eye Exam: Positive: Conjunctiva & lids normal, EOMI, PERRLA, Negative: Sclera icteric ENT Exam: Positive: Atraumatic, Mucous membr. moist/pink, Nares Patent, Other ENT (edentulous (has both upper and lower dentures, currently not present)), Pharynx Normal, Pinna Normal, Tongue Midline Neck Exam: Positive: Other (trachea midline), Supple, Negative: JVD, Lymphadenopathy, thyromegaly Chest Exam: Positive: Clear to auscultation, Normal air movement Heart Exam: Positive: Normal S1, Normal S2, Rate Normal, Regular Rhythm, Negative: Murmurs, Rubs Abdomen Exam: Positive: Normal bowel sounds, Other (midline healed abdominal incision with associated healed laparoscopic incisions; tympanic evaluation of abdomen revealed no acute abnormalities; excessive abdominal skin noted), Soft, Tenderness (apparently tender to palpation with both light and deep palpation based on patient's facial grimace), Negative: Hepatospenomegaly, Hernia (no abdominal hernia noted on physical exam), Mass Extremity Exam: Positive: Edema (nonpitting edema noted more so on the left lower extremity done the right), Normal pulses (upper and lower extremities symmetrical bilaterally), Tenderness (tenderness with palpation to the lower extremities), Negative: Clubbing, Cyanosis Skin Exam: Positive: Other skin issue (dry skin noted on upper extremities) Neuro Exam: Positive: Cranial Nerves 3-12 NL, Normal Speech, Strength at 5/5 X4 ext (preserved strength in upper and lower extremities bilaterally) Psych Exam: Positive: Oriented x 3 Other physical findings Digital rectal exam performed: Good rectal tone noted, no gross abnormalities noted on midline finger sweep exam, no gross blood noted, no melena Vital Signs T 98.4 HR 87 RR 16 BP 106/54 O2 97% on room air Height (in): 58 Weight (kg): 60.1 BMI (kg): 27.7 Laboratory Data Labs 24H Laboratory Tests 2 08/03/16 19:37: Activated Partial Thromboplast Time 30.9, Aspartate Amino Transf (AST/SGOT) 20, Alanine Aminotransferase (ALT/SGPT) 16, Alkaline Phosphatase 139H, Total Bilirubin 0.4, Direct Bilirubin 0.1, Albumin 1.8L, Albumin/Globulin Ratio 0.56L , Amylase Level 28, Anion Gap 8, White Blood Count 9.4, Red Blood Count 4.34, Hemoglobin 11.7L, Hematocrit 37.3, Mean Corpuscular Volume 85.9, Mean Corpuscular Hemoglobin 26.9L, Mean Corpuscular Hemoglobin Concent 31.4L, Red Cell Distribution Width 13.3, Platelet Count 459H, Neutrophils (%) (Auto) 74.6H , Lymphocytes (%) (Auto) 14.4L, Monocytes (%) (Auto) 7.3H, Eosinophils (%) (Auto ) 1.7, Basophils (%) (Auto) 0.6, Neutrophils # (Auto) 7.0, Lymphocytes # (Auto) 1.4L, Monocytes # (Auto) 0.7, Eosinophils # (Auto) 0.2, Basophils # (Auto) 0.1, C-Reactive Protein, Quantitative 1.47H, Calcium Level 8.8, Erythrocyte Sedimentation Rate 19, Glomerular Filtration Rate > 60.0, Lactic Acid (Sepsis) 1.7, Large Unclassified Cells # 0.1, Large Unclassified Cells % 1.4, Lipase 140 , Prothromb Time International Ratio 1.85, Prothrombin Time 21.4H, Total Protein 5.0L CBC/BMP Laboratory Tests 08/03/16 19:37 Red Blood Count 4.34, Mean Corpuscular Volume 85.9, Mean Corpuscular Hemoglobin 26.9 L, Mean Corpuscular Hemoglobin Concent 31.4 L, Red Cell Distribution Width 13.3, Neutrophils (%) (Auto) 74.6 H, Lymphocytes (%) (Auto) 14.4 L, Monocytes (% ) (Auto) 7.3 H, Eosinophils (%) (Auto) 1.7, Basophils (%) (Auto) 0.6, Neutrophils # (Auto) 7.0, Lymphocytes # (Auto) 1.4 L, Monocytes # (Auto) 0.7, Eosinophils # (Auto) 0.2, Basophils # (Auto) 0.1 Microbiology Microbiology 08/04/16 Gastrointestinal Tract Panel (PCR), Received Pending Assessment/Plan This is a 70-year-old female who presents with blood in her stool. Differential diagnosis includes diverticulitis, flare of ulcerative colitis, viral enteritis, colitis, irritable bowel syndrome. Problems (1) Hematochezia Status: Resolved Problem Text: Could consider diverticulitis, flare of ulcerative colitis, viral enteritis, clostridium difficile infection Obtain CT of the abdomen and pelvis with by mouth contrast Obtain serial H&H's every 6 hours Consent for blood transfusion Type and screen White blood cell count 9.4 Obtain gastrointestinal panel - C. diff positive Prescribed Dificid 200mg twice a day secondary to patient having prior microbiota fecal transplant and vancomycin being less effective in that setting Nothing by mouth (may have ice chips) (2) Diarrhea Status: Acute Problem Text: Provide intravenous hydration at 60 mils per hour Blood pressure presentation was 106/54 Obtain orthostatic blood pressures every 8 hours Physical therapy consult (3) Thrombocytosis Status: Resolved Problem Text: Platelets are 459 Likely reactive Monitor with daily CBC (4) Jaw pain Status: Acute Problem Text: Obtain EKG - Appears no different from prior EKG in May - Will monitor clinically Obtain one set of troponins - negative (5) Diastolic congestive heart failure Status: Chronic Problem Text: Hold patient's home dose of Lasix secondary to patient's chronic diarrhea and possible underlying dehydration Could possibly consider restarting Lasix tomorrow (6) Iron deficiency anemia Status: Chronic Problem Text: Patient's H&H is 11.7 and 37.3, respectively Will obtain serial H&H's every 6 hours CBC daily Physical therapy for possible associated dizziness, lightheadedness, and weakness Plan / VTE VTE Prophylaxis Ordered?: Yes (TEDs and sequentials) Plan Plan Hematochezia With the patient's significant gastrointestinal history we'll obtain CT of her abdomen and pelvis with by mouth contrast. We'll also obtain serial hemoglobin and hematocrits every 6 hours, consent patient for possible blood transfusion ( hemoglobin is currently 11.7), and obtain a type and screen. Awaiting the results of GI panel which show C. difficile infection. Will treat with Dificid 200mg twice a day secondary to patient having microbiota fecal transplant which could possibly result in vancomycin being less effective. White count is 9.4. Patient does have a history of Clostridium difficile infection. Until results of CT of the abdomen and pelvis return patient is currently nothing by mouth ( may have ice chips). Less likely ischemic bowel addiction is a lactic acid is 1.7. Diarrhea Patient has an extensive history of diarrhea, however patient is now noting blood in her stool. With a chronic history of diarrhea we could consider the patient is dehydrated and for that reason we'll provide intravenous fluid hydration at 60 miles per hour. With patient's associated dizziness, lightheadedness, and weakness we'll obtain physical therapy consult. Also obtain orthostatic blood pressures every 8 hours. Patient's ESR was 19 and his CRP was 1.47. PT/INR 21.4 1.85, respectively. We'll hold Lasix secondary to possible underlying dehydration. Jaw pain Does not appear that patient has any coronary artery disease history although she does have a history of diastolic congestive heart failure. We'll obtain one set of cardiac markers as well as an EKG. Could possibly be musculoskeletal in nature. Iron deficiency anemia Patient has a history of iron deficiency anemia. Her presentation patient's hemoglobin and hematocrit were 11.7 and 37.3, respectively. We'll obtain type and screen as well as consent patient for possible blood transfusion. We'll monitor patient's CBC. We'll continue patient on home dose of iron. DVT prophylaxis: TEDs and sequentials Diet: Nothing by mouth, with ice chips, sips of water to take medications Disposition Admit to medical surgical unit Hospitalization status: Observation Attending: Dr. Darling IVF: Initiate (IVF at 60 miles per hour) Diet: Make NPO (patient may have ice chips) Activity: Bedrest (with commode privileges) Therapy: PT (secondary to weakness, dizziness, lightheadedness) Diagnostics: Check Labs, Repeat Labs in AM, Obtain Cultures, CT (abdomen and pelvis with by mouth contrast) Anticipated Discharge: Home Attending Note Attending Note I, Parveen Dang, have both independently examined this patient as well as reviewed the documentation. I have discussed in detail with the resident the findings and plan of treatment as documented in the residents documentation. I will continue to follow the patient and offer further guidance to the patients care as necessary during this hospital stay. REESE HARRINGTON Aug 04, 2016 04:03 PARVEEN DANG MD Aug 18, 2016 13:51
--- NOTE | 2016-08-04 05:30 | REPUSA ---
CLINICAL HISTORY: Abdominal pain. TECHNIQUE: Multiple axial, sagittal and coronal CT images were obtained through the abdomen and pelvi s without administration of IV contrast material. Patient ingested oral contrast. COMMENTS: Comparison is made to the prior exam performed on 09/17/2015. The liver is of regular contour without mass or defect. There is no intra or extrahepatic biliary aurelia ardha dilatation. The spleen is normal. The gallbladder is distended containing multiple gallstones. Th e pancreas is of normal contour and attenuation characteristics. There is no evidence of adrenal mass . Unchanged bilateral less than 5 mm nonobstructing renal stones. There is no hydroureter or hydronephr osis. There is no evidence for appendicitis. There is no bowel wall thickening. No evidence for small or la rge bowel obstruction. There is no evidence of abdominal ascites or lymphadenopathy. There is no evidence of intrinsic or extrinsic bladder mass. Diffusely thickened bladder. There is no pelvic ascites or lymphadenopathy. Multifocal thickening of the wall of the colon more prominent at the level of the cecum. Images of the lung bases show no evidence of pleural or parenchymal mass. There are no pleural effusi ons. The bony structures are free of lytic or blastic lesions. Multilevel degenerative changes are seen in volving the thoracolumbar spine. Scattered calcifications are seen involving the aorta and major branches compatible with atherosclero sis. IMPRESSION: Focal thickening of the wall of the colon suggestive of colitis. This was not present on prior exam. Hepatocellular liver disease. Diastasis of the anterior abdominal wall. Thickened bladder suggestive of mild cystitis. Thank you for your kind referral of this patient.
[2016-08-04 06:00] VITALS: BP 119/61
[2016-08-04] MEDS ORDERED: HEPARIN SOD (PORCINE) 5000 UNITS/ML VIAL SC SCH (06:00)
[2016-08-04] MEDS ORDERED: VANCOMYCIN ORAL SOL 250MG/5ML ORAL SYRINGE PO SCH (06:00)
[2016-08-04 07:00] VITALS: BP_SYST 102; BP_SYST 118; BP_SYST 119; BP_DIAS 51; BP_DIAS 60; BP_DIAS 61
[2016-08-04] MEDS ORDERED: TORSEMIDE 10 MG TABLET PO SCH (09:00)
[2016-08-04] MEDS ORDERED: PANTOPRAZOLE 40MG INJ (PROTONIX) (C9113) IV SCH (09:00)
[2016-08-04] MEDS: FERROUS SULFATE 325MG TAB PO SCH ×2 (10:38→21:29)
[2016-08-04] MEDS: FLUoxetine 20 MG CAP PO SCH (10:38)
[2016-08-04] MEDS: POTASSIUM CHLORIDE 10 MEQ SR TABLET PO SCH (10:38)
[2016-08-04] MEDS: LACTOBACILLUS ACIDOPHILUS CAP (BACID) PO SCH (10:38)
[2016-08-04] MEDS: FIDAXOMICIN 200 MG TAB (DIFICID) PO SCH ×2 (10:38→21:28)
[2016-08-04] MEDS: MULTIVITAMINS/MINERALS THERAP 1 TAB PO SCH (10:39)
--- NOTE | 2016-08-04 10:44 | ECGEPIP ---
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
[2016-08-04 14:00] VITALS: BP_SYST 111; BP_SYST 121; BP_SYST 125; BP_SYST 133; BP_DIAS 55; BP_DIAS 59; BP_DIAS 60
[2016-08-04] MEDS: ACETAMINOPHEN TAB 650MG DOSE (2X325MG) PO PRN (21:30)
[2016-08-04 22:00] VITALS: BP 133/60
[2016-08-05 06:00] VITALS: BP_SYST 104; BP_SYST 114; BP_SYST 115; BP_DIAS 57; BP_DIAS 58
[2016-08-05 07:09] LABS: BASO % 0.4 % (0.0-1.0); EOS # 0.4 K/mm3 (0.0-0.50); EOS % 5.1 % (0.0-3.0); LARGE UNSTAINED CELL # 0.1 K/mm3 (0.0-0.4); LARGE UNSTAINED CELL % 1.8 % (0.0-4.0); LYMPH # 1.1 K/mm3 (1.5-4.5); LYMPH % 13.9 % (24.0-44.0); MEAN CORPUSCULAR HEMOGLOBIN 26.8 pg (27.0-33.0); MEAN CORPUSCULAR VOLUME 86.6 fl (80.0-96.0); MONO # 0.7 K/mm3 (0.0-0.8); MONO % 8.8 % (0.0-5.0); NEUTROPHILS # 5.4 K/mm3 (1.8-7.7); NEUTROPHILS % 69.9 % (36.0-66.0); PLATELET COUNT, AUTOMATED 390 k/mm3 (150-450); RED CELL DISTRIBUTION WIDTH 13.4 % (11.5-14.5); WHITE BLOOD COUNT 7.7 K/mm3 (4.0-10.0)
[2016-08-05 07:21] LABS: ALBUMIN 1.4 GM/DL (3.2-5.2); ALBUMIN/GLOBULIN RATIO 0.48 (1.00-1.93); ALKALINE PHOSPHATASE 107 U/L (45-117); ALT/SGPT 16 U/L (12-78); ANION GAP 7 MEQ/L (8-16); AST/SGOT 17 U/L (15-37); BILIRUBIN,TOTAL 0.2 MG/DL (0.2-1.0); BLOOD UREA NITROGEN 5 MG/DL (7-18); CALCIUM LEVEL 8.3 MG/DL (8.8-10.2); CARBON DIOXIDE LEVEL 26 MEQ/L (21-32); CHLORIDE LEVEL 111 MEQ/L (98-107); CREATININE FOR GFR 0.72 MG/DL (0.55-1.02); GLOMERULAR FILTRATION RATE > 60.0 (>45); GLUCOSE, FASTING 80 MG/DL (80-110); MAGNESIUM LEVEL 1.9 MG/DL (1.8-2.4); SODIUM LEVEL 144 MEQ/L (136-145); TOTAL PROTEIN 4.3 GM/DL (6.4-8.2)
[2016-08-05] MEDS ORDERED: INFLUENZA VIRUS VACCINE HIGH DOSE 0.5 ML SYRINGE (90662) IM ONE (09:00)
[2016-08-05] MEDS: POTASSIUM CHLORIDE 10 MEQ SR TABLET PO SCH (10:00)
[2016-08-05] MEDS: LACTOBACILLUS ACIDOPHILUS CAP (BACID) PO SCH (10:00)
[2016-08-05] MEDS: FERROUS SULFATE 325MG TAB PO SCH ×2 (10:00→20:59)
[2016-08-05] MEDS: MULTIVITAMINS/MINERALS THERAP 1 TAB PO SCH (10:01)
[2016-08-05] MEDS: FLUoxetine 20 MG CAP PO SCH (10:01)
[2016-08-05] MEDS: FIDAXOMICIN 200 MG TAB (DIFICID) PO SCH ×2 (10:01→21:00)
[2016-08-05] MEDS ORDERED: POTASSIUM CHLORIDE 10 MEQ SR TABLET PO ONE (11:00)
--- NOTE | 2016-08-05 12:26 | IPNPDOC ---
Subjective Date Seen The patient was seen on 08/04/16. Subjective Chief Complaint/HPI The patient is a 70-year-old female admitted with a reason for visit of Ulcerative Colitis. Events since last encounter pt seen and examined, resting in bed, no complains right now Objective Physical Examination General Exam: Positive: Alert, Cooperative, Other (appears older than stated age) Eye Exam: Positive: Conjunctiva & lids normal, EOMI, PERRLA, Negative: Sclera icteric ENT Exam: Positive: Atraumatic, Mucous membr. moist/pink, Nares Patent, Other ENT (edentulous (has both upper and lower dentures, currently not present)), Pharynx Normal, Pinna Normal, Tongue Midline Neck Exam: Positive: Other (trachea midline), Supple, Negative: JVD, Lymphadenopathy, thyromegaly Chest Exam: Positive: Clear to auscultation, Normal air movement Heart Exam: Positive: Normal S1, Normal S2, Rate Normal, Regular Rhythm, Negative: Murmurs, Rubs Abdomen Exam: Positive: Normal bowel sounds, Other (midline healed abdominal incision with associated healed laparoscopic incisions; tympanic evaluation of abdomen revealed no acute abnormalities; excessive abdominal skin noted), Soft, Tenderness (apparently tender to palpation with both light and deep palpation based on patient's facial grimace), Negative: Hepatospenomegaly, Hernia (no abdominal hernia noted on physical exam), Mass Extremity Exam: Positive: Edema (nonpitting edema noted more so on the left lower extremity done the right), Normal pulses (upper and lower extremities symmetrical bilaterally), Tenderness (tenderness with palpation to the lower extremities), Negative: Clubbing, Cyanosis Skin Exam: Positive: Other skin issue (dry skin noted on upper extremities) Neuro Exam: Positive: Cranial Nerves 3-12 NL, Normal Speech, Strength at 5/5 X4 ext (preserved strength in upper and lower extremities bilaterally) Psych Exam: Positive: Oriented x 3 Assessment /Plan Problems (1) Hematochezia Status: Acute Problem Text: likely flare of ulcerative colitis, viral enteritis, clostridium difficile infection Obtain serial H&H's every 6 hours Consent for blood transfusion Type and screen Prescribed Dificid 200mg twice a day secondary to patient having prior microbiota fecal transplant and vancomycin being less effective in that setting clear liquid diet (2) Diarrhea Status: Acute Problem Text: continue to replace electrolyte, encourage oral intake (3) Thrombocytosis Status: Resolved (4) Diastolic congestive heart failure Status: Chronic Problem Text: Hold patient's home dose of Lasix secondary to patient's chronic diarrhea and possible underlying dehydration (5) Iron deficiency anemia Status: Chronic Plan/VTE VTE Prophylaxis Ordered?: Yes (TEDs and sequentials) Plan IVF: Initiate (IVF at 60 miles per hour) Diet: Make NPO (patient may have ice chips) Activity: Bedrest (with commode privileges) Therapy: PT (secondary to weakness, dizziness, lightheadedness) Diagnostics: Check Labs, Repeat Labs in AM, Obtain Cultures, CT (abdomen and pelvis with by mouth contrast) Anticipated Discharge: Home VS, I&O, 24H, Fishbone Vital Signs/I&O Vital Signs Date Time Temp Pulse Resp B/P Pulse Ox O2 Delivery O2 Flow Rate FiO2 08/04/16 14:00 82 125/59 88 121/60 89 111/55 08/04/16 14:00 97.4 17 97 Room Air I&O- Last 24 Hours up to 6 AM 08/04/16 06:00 Intake Total 1500 ml Balance 1500 ml Laboratory Data 24H LABS Laboratory Tests 2 08/04/16 03:07: Creatine Kinase MB 1.0, Creatine Kinase MB Relative Index 2.32, Total Creatine Kinase 43, Troponin I 0.02 CBC/BMP Laboratory Tests 08/04/16 03:07 08/04/16 08:29 08/04/16 14:06 Microbiology Microbiology 08/04/16 Blood Culture, Received Pending 08/04/16 Gastrointestinal Tract Panel (PCR) - Final, Complete Clostridium Difficile A/B NIMA NULL DO Aug 04, 2016 20:23
[2016-08-05] MEDS: methylPREDNISolone INJ 40 MG/1 ML VIAL (J2920) IV SCH ×2 (12:54→20:59)
[2016-08-05] MEDS: sulfaSALAzine 500 MG TABEC PO SCH ×3 (13:06→20:59)
--- NOTE | 2016-08-05 13:25 | IPNPDOC ---
Subjective Date Seen The patient was seen on 08/05/16. Subjective Chief Complaint/HPI The patient is a 70-year-old female admitted with a reason for visit of Ulcerative Colitis. Events since last encounter pt seen and examined, still having blooding bowel movements, and complaining of abd pain Objective Physical Examination General Exam: Positive: Alert, Cooperative, Other (appears older than stated age) Eye Exam: Positive: Conjunctiva & lids normal, EOMI, PERRLA, Negative: Sclera icteric ENT Exam: Positive: Atraumatic, Mucous membr. moist/pink, Nares Patent, Other ENT (edentulous (has both upper and lower dentures, currently not present)), Pharynx Normal, Pinna Normal, Tongue Midline Neck Exam: Positive: Other (trachea midline), Supple, Negative: JVD, Lymphadenopathy, thyromegaly Chest Exam: Positive: Clear to auscultation, Normal air movement Heart Exam: Positive: Normal S1, Normal S2, Rate Normal, Regular Rhythm, Negative: Murmurs, Rubs Abdomen Exam: Positive: Normal bowel sounds, Other (midline healed abdominal incision with associated healed laparoscopic incisions; tympanic evaluation of abdomen revealed no acute abnormalities; excessive abdominal skin noted), Soft, Tenderness (apparently tender to palpation with both light and deep palpation based on patient's facial grimace), Negative: Hepatospenomegaly, Hernia (no abdominal hernia noted on physical exam), Mass Extremity Exam: Positive: Edema (nonpitting edema noted more so on the left lower extremity done the right), Normal pulses (upper and lower extremities symmetrical bilaterally), Tenderness (tenderness with palpation to the lower extremities), Negative: Clubbing, Cyanosis Skin Exam: Positive: Other skin issue (dry skin noted on upper extremities) Neuro Exam: Positive: Cranial Nerves 3-12 NL, Normal Speech, Strength at 5/5 X4 ext (preserved strength in upper and lower extremities bilaterally) Psych Exam: Positive: Oriented x 3 Assessment /Plan Problems (1) Hematochezia Status: Acute Problem Text: likely flare of ulcerative colitis, viral enteritis, clostridium difficile infection Obtain serial H&H's every 6 hours Consent for blood transfusion Type and screen spoke with dr key and will start pt on solumedrol (2) Diarrhea Status: Acute Problem Text: continue to replace electrolyte, encourage oral intake cdiff positive continue Dificid, 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 (3) Thrombocytosis Status: Resolved (4) Diastolic congestive heart failure Status: Chronic Problem Text: Hold patient's home dose of Lasix secondary to patient's chronic diarrhea and possible underlying dehydration (5) Iron deficiency anemia Status: Chronic Plan/VTE VTE Prophylaxis Ordered?: Yes (TEDs and sequentials) Plan IVF: Initiate (IVF at 60 miles per hour) Diet: Make NPO (patient may have ice chips) Activity: Bedrest (with commode privileges) Therapy: PT (secondary to weakness, dizziness, lightheadedness) Diagnostics: Check Labs, Repeat Labs in AM, Obtain Cultures, CT (abdomen and pelvis with by mouth contrast) Anticipated Discharge: Home VS, I&O, 24H, [facility] Vital Signs/I&O Vital Signs Date Time Temp Pulse Resp B/P Pulse Ox O2 Delivery O2 Flow Rate FiO2 08/05/16 06:00 70 115/58 77 114/57 84 104/57 08/04/16 22:00 99.6 19 97 Room Air I&O- Last 24 Hours up to 6 AM 08/05/16 06:00 Intake Total 1320 ml Output Total 150 ml Balance 1170 ml Laboratory Data 24H LABS Laboratory Tests 2 08/05/16 04:17: Urine Amorphous Sediment , Urine Appearance CLEAR, Urine Color YELLOW, Urine pH 7.0, Urine Specific [place] 1.003, Urine Protein NEGATIVE, Urine Glucose (UA) NEGATIVE, Urine Ketones NEGATIVE, Urine Urobilinogen 0.2, Urine Bilirubin NEGATIVE, Urine Leukocyte Esterase 3+H, Urine Bacteria (Auto) 1+H, Urine Blood 2 +H, Urine Calcium Carbonate Cryst(Auto) , Urine Calcium Oxalate Cryst (Auto) , Urine Calcium Phosphate [place] (Auto) , Urine Cellular Casts , Urine Cystine Crystals , Urine Granular Casts (Auto) , Urine Hyaline Casts (Auto) 0, Urine Leucine Crystals , Urine Mucus (Auto) , Urine Nitrite NEGATIVE, Urine Oval Fat Bodies (Auto) , Urine RBC (Auto) 2, Urine Renal Epithelial Cells , Urine Sperm ( Auto) , Urine Squamous Epithelial Cells 0, Urine Transitional Epithelial Cells , Urine Trichomonas (Auto) , Urine Triple Phosphate Cryst (Auto) , Urine Tyrosine Crystals , Urine Uric Acid Crystals (Auto) , Urine WBC (Auto) 13H, Urine Waxy Casts (Auto) , Urine Yeast-Like Cells (Auto) 08/05/16 06:42: Blood Urea Nitrogen 5L, Creatinine 0.72, Sodium Level 144, Potassium Level 3.0#L , Chloride Level 111H, Carbon Dioxide Level 26, Calcium Level 8.3L, Aspartate Amino Transf (AST/SGOT) 17, Alanine Aminotransferase (ALT/SGPT) 16, Alkaline Phosphatase 107, Total Bilirubin 0.2, Total Protein 4.3L, Albumin 1.4#L, Albumin /Globulin Ratio 0.48L, Anion Gap 7L, White Blood Count 7.7, Red Blood Count 3.75L, Hemoglobin 10.1L, Hematocrit 32.5L, Mean Corpuscular Volume 86.6, Mean Corpuscular Hemoglobin 26.8L, Mean Corpuscular Hemoglobin Concent 31.0L, Red Cell Distribution Width 13.4, Platelet Count 390, Neutrophils (%) (Auto) 69.9H, Lymphocytes (%) (Auto) 13.9L, Monocytes (%) (Auto) 8.8H, Eosinophils (%) (Auto) 5.1H, Basophils (%) (Auto) 0.4, Neutrophils # (Auto) 5.4, Lymphocytes # (Auto) 1.1L, Monocytes # (Auto) 0.7, Eosinophils # (Auto) 0.4, Basophils # (Auto) 0.0, Glomerular Filtration Rate > 60.0, Large Unclassified Cells # 0.1, Large Unclassified Cells % 1.8, Magnesium Level 1.9 CBC/BMP Laboratory Tests 08/04/16 14:06 08/04/16 20:08 08/05/16 06:42 Calcium Level 8.3 L, Aspartate Amino Transf (AST/SGOT) 17, Alanine Aminotransferase (ALT/SGPT) 16, Alkaline Phosphatase 107, Total Bilirubin 0.2, Total Protein 4.3 L, Albumin 1.4 #L, Red Blood Count 3.75 L, Mean Corpuscular Volume 86.6, Mean Corpuscular Hemoglobin 26.8 L, Mean Corpuscular Hemoglobin Concent 31.0 L, Red Cell Distribution Width 13.4, Neutrophils (%) (Auto) 69.9 H , Lymphocytes (%) (Auto) 13.9 L, Monocytes (%) (Auto) 8.8 H, Eosinophils (%) ( Auto) 5.1 H, Basophils (%) (Auto) 0.4, Neutrophils # (Auto) 5.4, Lymphocytes # ( Auto) 1.1 L, Monocytes # (Auto) 0.7, Eosinophils # (Auto) 0.4, Basophils # (Auto ) 0.0 08/05/16 11:37 Microbiology Microbiology 08/04/16 Blood Culture - Preliminary, Resulted No growth after 24 hours . All specim... 08/04/16 Gastrointestinal Tract Panel (PCR) - Final, Complete Clostridium Difficile A/B 08/05/16 Urine Culture, Received Pending NIMA NULL DO Aug 05, 2016 13:25
[2016-08-05 14:00] VITALS: BP_SYST 102; BP_SYST 110; BP_SYST 94; BP_DIAS 56; BP_DIAS 60; BP_DIAS 64
[2016-08-05 20:00] VITALS: BP_SYST 108; BP_SYST 109; BP_DIAS 55; BP_DIAS 58; BP_DIAS 59
[2016-08-06] MEDS: methylPREDNISolone INJ 40 MG/1 ML VIAL (J2920) IV SCH ×3 (04:47→20:25)
[2016-08-06 06:00] VITALS: BP_SYST 106; BP_SYST 114; BP_SYST 115; BP_DIAS 60; BP_DIAS 61; BP_DIAS 68
[2016-08-06 06:14] LABS: BASO % 0.2 % (0.0-1.0); EOS % 0.2 % (0.0-3.0); LARGE UNSTAINED CELL # 0.1 K/mm3 (0.0-0.4); LARGE UNSTAINED CELL % 1.2 % (0.0-4.0); LYMPH # 0.7 K/mm3 (1.5-4.5); LYMPH % 10.7 % (24.0-44.0); MEAN CORPUSCULAR HEMOGLOBIN 26.9 pg (27.0-33.0); MEAN CORPUSCULAR HGB CONC 30.5 g/dl (32.0-36.5); MEAN CORPUSCULAR VOLUME 88.2 fl (80.0-96.0); MONO # 0.3 K/mm3 (0.0-0.8); NEUTROPHILS # 4.7 K/mm3 (1.8-7.7); NEUTROPHILS % 82.6 % (36.0-66.0); PLATELET COUNT, AUTOMATED 409 k/mm3 (150-450); RED CELL DISTRIBUTION WIDTH 13.4 % (11.5-14.5); WHITE BLOOD COUNT 5.7 K/mm3 (4.0-10.0)
[2016-08-06 06:33] LABS: ALBUMIN 1.5 GM/DL (3.2-5.2); ALBUMIN/GLOBULIN RATIO 0.48 (1.00-1.93); ALKALINE PHOSPHATASE 122 U/L (45-117); ALT/SGPT 18 U/L (12-78); ANION GAP 7 MEQ/L (8-16); AST/SGOT 11 U/L (15-37); BILIRUBIN,TOTAL 0.2 MG/DL (0.2-1.0); BLOOD UREA NITROGEN 8 MG/DL (7-18); CALCIUM LEVEL 8.3 MG/DL (8.8-10.2); CARBON DIOXIDE LEVEL 26 MEQ/L (21-32); CHLORIDE LEVEL 111 MEQ/L (98-107); CREATININE FOR GFR 0.65 MG/DL (0.55-1.02); GLOMERULAR FILTRATION RATE > 60.0 (>45); GLUCOSE, FASTING 135 MG/DL (80-110); POTASSIUM SERUM 3.7 MEQ/L (3.5-5.1); SODIUM LEVEL 144 MEQ/L (136-145); TOTAL PROTEIN 4.6 GM/DL (6.4-8.2)
[2016-08-06] MEDS: FERROUS SULFATE 325MG TAB PO SCH ×2 (09:18→20:24)
[2016-08-06] MEDS: POTASSIUM CHLORIDE 10 MEQ SR TABLET PO SCH (09:19)
[2016-08-06] MEDS: MULTIVITAMINS/MINERALS THERAP 1 TAB PO SCH (09:19)
[2016-08-06] MEDS: FIDAXOMICIN 200 MG TAB (DIFICID) PO SCH ×2 (09:19→20:25)
[2016-08-06] MEDS: LACTOBACILLUS ACIDOPHILUS CAP (BACID) PO SCH (09:19)
[2016-08-06] MEDS: sulfaSALAzine 500 MG TABEC PO SCH ×3 (09:19→20:25)
[2016-08-06] MEDS: FLUoxetine 20 MG CAP PO SCH (09:19)
[2016-08-06] MEDS: FUROSEMIDE 40 MG/4 ML VIAL (J1940) IV SCH (10:07)
--- NOTE | 2016-08-06 10:40 | IPNPDOC ---
Subjective Date Seen The patient was seen on 08/06/16. Subjective Chief Complaint/HPI The patient is a 70-year-old female admitted with a reason for visit of Ulcerative Colitis. Events since last encounter continues to have abdominal pain and lower GIB but getting better. No blood in stool this am . Had 10 bowel movements yesterday. no fever or chills, no chest pain or SOB , no abdominal pain nausea or vomiting. Objective Physical Examination General Exam: Positive: Alert, Cooperative, Other (appears older than stated age) Eye Exam: Positive: Conjunctiva & lids normal, EOMI, PERRLA, Negative: Sclera icteric ENT Exam: Positive: Atraumatic, Mucous membr. moist/pink, Nares Patent, Other ENT (edentulous (has both upper and lower dentures, currently not present)), Pharynx Normal, Pinna Normal, Tongue Midline Neck Exam: Positive: Other (trachea midline), Supple, Negative: JVD, Lymphadenopathy, thyromegaly Chest Exam: Positive: Clear to auscultation, Normal air movement Heart Exam: Positive: Normal S1, Normal S2, Rate Normal, Regular Rhythm, Negative: Murmurs, Rubs Abdomen Exam: Positive: Normal bowel sounds, Other (midline healed abdominal incision with associated healed laparoscopic incisions; tympanic evaluation of abdomen revealed no acute abnormalities; excessive abdominal skin noted), Soft, Tenderness (apparently tender to palpation with both light and deep palpation based on patient's facial grimace), Negative: Hepatospenomegaly, Hernia (no abdominal hernia noted on physical exam), Mass Extremity Exam: Positive: Edema (nonpitting edema noted more so on the left lower extremity done the right), Normal pulses (upper and lower extremities symmetrical bilaterally), Tenderness (tenderness with palpation to the lower extremities), Negative: Clubbing, Cyanosis Skin Exam: Positive: Other skin issue (dry skin noted on upper extremities) Neuro Exam: Positive: Cranial Nerves 3-12 NL, Normal Speech, Strength at 5/5 X4 ext (preserved strength in upper and lower extremities bilaterally) Psych Exam: Positive: Oriented x 3 Assessment /Plan Problems (1) Hematochezia Status: Acute Problem Text: likely flare of ulcerative colitis, viral enteritis, clostridium difficile infection Obtain serial H&H's every 6 hours Consent for blood transfusion Type and screen spoke with dr key and will start pt on solumedrol (2) Diarrhea Status: Acute Problem Text: continue to replace electrolyte, encourage oral intake cdiff positive continue Dificid, 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 (3) Thrombocytosis Status: Resolved (4) Diastolic congestive heart failure Status: Chronic Problem Text: Hold patient's home dose of Lasix secondary to patient's chronic diarrhea and possible underlying dehydration (5) Iron deficiency anemia Status: Chronic Plan/VTE VTE Prophylaxis Ordered?: Yes (TEDs and sequentials) Plan IVF: Initiate (IVF at 60 miles per hour) Diet: Make NPO (patient may have ice chips) Activity: Bedrest (with commode privileges) Therapy: PT (secondary to weakness, dizziness, lightheadedness) Diagnostics: Check Labs, Repeat Labs in AM, Obtain Cultures, CT (abdomen and pelvis with by mouth contrast) Anticipated Discharge: Home VS, I&O, 24H, [facility] Vital Signs/I&O Vital Signs Date Time Temp Pulse Resp B/P Pulse Ox O2 Delivery O2 Flow Rate FiO2 08/05/16 20:00 98.7 75 19 108/59 96 Room Air I&O- Last 24 Hours up to 6 AM 08/06/16 06:00 Intake Total 1300 ml Output Total 400 ml Balance 900 ml Laboratory Data 24H LABS Laboratory Tests 2 08/05/16 06:42: Blood Urea Nitrogen 5L, Creatinine 0.72, Sodium Level 144, Potassium Level 3.0#L , Chloride Level 111H, Carbon Dioxide Level 26, Calcium Level 8.3L, Aspartate Amino Transf (AST/SGOT) 17, Alanine Aminotransferase (ALT/SGPT) 16, Alkaline Phosphatase 107, Total Bilirubin 0.2, Total Protein 4.3L, Albumin 1.4#L, Albumin /Globulin Ratio 0.48L, Anion Gap 7L, White Blood Count 7.7, Red Blood Count 3.75L, Hemoglobin 10.1L, Hematocrit 32.5L, Mean Corpuscular Volume 86.6, Mean Corpuscular Hemoglobin 26.8L, Mean Corpuscular Hemoglobin Concent 31.0L, Red Cell Distribution Width 13.4, Platelet Count 390, Neutrophils (%) (Auto) 69.9H, Lymphocytes (%) (Auto) 13.9L, Monocytes (%) (Auto) 8.8H, Eosinophils (%) (Auto) 5.1H, Basophils (%) (Auto) 0.4, Neutrophils # (Auto) 5.4, Lymphocytes # (Auto) 1.1L, Monocytes # (Auto) 0.7, Eosinophils # (Auto) 0.4, Basophils # (Auto) 0.0, Glomerular Filtration Rate > 60.0, Large Unclassified Cells # 0.1, Large Unclassified Cells % 1.8, Magnesium Level 1.9 08/06/16 05:59: White Blood Count 5.7, Red Blood Count 3.81L, Hemoglobin 10.3L, Hematocrit 33.6L , Mean Corpuscular Volume 88.2, Mean Corpuscular Hemoglobin 26.9L, Mean Corpuscular Hemoglobin Concent 30.5L, Red Cell Distribution Width 13.4, Platelet Count 409, Neutrophils (%) (Auto) 82.6H, Lymphocytes (%) (Auto) 10.7L, Monocytes (%) (Auto) 5.0, Eosinophils (%) (Auto) 0.2, Basophils (%) (Auto) 0.2, Neutrophils # (Auto) 4.7, Lymphocytes # (Auto) 0.7L, Monocytes # (Auto) 0.3, Eosinophils # (Auto) 0.0, Basophils # (Auto) 0.0, Large Unclassified Cells # 0.1 , Large Unclassified Cells % 1.2 CBC/BMP Laboratory Tests 08/05/16 06:42 Calcium Level 8.3 L, Aspartate Amino Transf (AST/SGOT) 17, Alanine Aminotransferase (ALT/SGPT) 16, Alkaline Phosphatase 107, Total Bilirubin 0.2, Total Protein 4.3 L, Albumin 1.4 #L, Red Blood Count 3.75 L, Mean Corpuscular Volume 86.6, Mean Corpuscular Hemoglobin 26.8 L, Mean Corpuscular Hemoglobin Concent 31.0 L, Red Cell Distribution Width 13.4, Neutrophils (%) (Auto) 69.9 H , Lymphocytes (%) (Auto) 13.9 L, Monocytes (%) (Auto) 8.8 H, Eosinophils (%) ( Auto) 5.1 H, Basophils (%) (Auto) 0.4, Neutrophils # (Auto) 5.4, Lymphocytes # ( Auto) 1.1 L, Monocytes # (Auto) 0.7, Eosinophils # (Auto) 0.4, Basophils # (Auto ) 0.0 08/05/16 11:37 08/05/16 17:44 08/05/16 23:07 08/06/16 05:59 Red Blood Count 3.81 L, Mean Corpuscular Volume 88.2, Mean Corpuscular Hemoglobin 26.9 L, Mean Corpuscular Hemoglobin Concent 30.5 L, Red Cell Distribution Width 13.4, Neutrophils (%) (Auto) 82.6 H, Lymphocytes (%) (Auto) 10.7 L, Monocytes (%) (Auto) 5.0, Eosinophils (%) (Auto) 0.2, Basophils (%) ( Auto) 0.2, Neutrophils # (Auto) 4.7, Lymphocytes # (Auto) 0.7 L, Monocytes # ( Auto) 0.3, Eosinophils # (Auto) 0.0, Basophils # (Auto) 0.0 Microbiology Microbiology 08/04/16 Blood Culture - Preliminary, Resulted No growth after 24 hours . All specim... 08/04/16 Gastrointestinal Tract Panel (PCR) - Final, Complete Clostridium Difficile A/B 08/05/16 Urine Culture, Received Pending VAN BAIG MD Aug 06, 2016 06:35
[2016-08-06 16:08] VITALS: BP_SYST 118; BP_SYST 98; BP_DIAS 62; BP_DIAS 68
[2016-08-06 21:00] VITALS: BP_SYST 86; BP_SYST 94; BP_SYST 98; BP_DIAS 58; BP_DIAS 64
[2016-08-07] MEDS: methylPREDNISolone INJ 40 MG/1 ML VIAL (J2920) IV SCH ×3 (05:26→21:17)
[2016-08-07 06:00] VITALS: BP_SYST 102; BP_SYST 108; BP_SYST 96; BP_DIAS 58; BP_DIAS 62; BP_DIAS 64
[2016-08-07 06:24] LABS: BASO % 0.1 % (0.0-1.0); EOS # 0.1 K/mm3 (0.0-0.50); EOS % 0.6 % (0.0-3.0); LARGE UNSTAINED CELL # 0.2 K/mm3 (0.0-0.4); LARGE UNSTAINED CELL % 1.5 % (0.0-4.0); LYMPH # 1.3 K/mm3 (1.5-4.5); MEAN CORPUSCULAR HEMOGLOBIN 27.1 pg (27.0-33.0); MEAN CORPUSCULAR VOLUME 87.5 fl (80.0-96.0); MONO # 0.8 K/mm3 (0.0-0.8); MONO % 6.5 % (0.0-5.0); NEUTROPHILS # 9.6 K/mm3 (1.8-7.7); NEUTROPHILS % 80.3 % (36.0-66.0); PLATELET COUNT, AUTOMATED 434 k/mm3 (150-450); RED CELL DISTRIBUTION WIDTH 13.3 % (11.5-14.5)
[2016-08-07 06:53] LABS: ALBUMIN 1.7 GM/DL (3.2-5.2); ALBUMIN/GLOBULIN RATIO 0.49 (1.00-1.93); ALKALINE PHOSPHATASE 136 U/L (45-117); ALT/SGPT 22 U/L (12-78); ANION GAP 6 MEQ/L (8-16); AST/SGOT 12 U/L (15-37); BILIRUBIN,TOTAL 0.1 MG/DL (0.2-1.0); BLOOD UREA NITROGEN 12 MG/DL (7-18); CARBON DIOXIDE LEVEL 27 MEQ/L (21-32); CHLORIDE LEVEL 112 MEQ/L (98-107); CREATININE FOR GFR 0.68 MG/DL (0.55-1.02); GLOMERULAR FILTRATION RATE > 60.0 (>45); GLUCOSE, FASTING 102 MG/DL (80-110); MAGNESIUM LEVEL 2.1 MG/DL (1.8-2.4); POTASSIUM SERUM 3.9 MEQ/L (3.5-5.1); SODIUM LEVEL 145 MEQ/L (136-145); TOTAL PROTEIN 5.2 GM/DL (6.4-8.2)
[2016-08-07] MEDS: FERROUS SULFATE 325MG TAB PO SCH ×2 (09:42→21:17)
[2016-08-07] MEDS: LACTOBACILLUS ACIDOPHILUS CAP (BACID) PO SCH (09:42)
[2016-08-07] MEDS: sulfaSALAzine 500 MG TABEC PO SCH ×3 (09:42→21:17)
[2016-08-07] MEDS: FIDAXOMICIN 200 MG TAB (DIFICID) PO SCH ×2 (09:42→21:17)
[2016-08-07] MEDS: FLUoxetine 20 MG CAP PO SCH (09:43)
[2016-08-07] MEDS: POTASSIUM CHLORIDE 10 MEQ SR TABLET PO SCH (09:43)
[2016-08-07] MEDS: FUROSEMIDE 40 MG/4 ML VIAL (J1940) IV SCH (09:44)
[2016-08-07] MEDS: MULTIVITAMINS/MINERALS THERAP 1 TAB PO SCH (09:44)
--- NOTE | 2016-08-07 12:12 | IPNPDOC ---
Subjective Date Seen The patient was seen on 08/07/16. Subjective Chief Complaint/HPI The patient is a 70-year-old female admitted with a reason for visit of Ulcerative Colitis. Events since last encounter pt seen and examined doing well, states her stool is now formed and she is no longer having blood in the stool. no fevers or chills overnight Objective Physical Examination General Exam: Positive: Alert, Cooperative, Other (appears older than stated age) Eye Exam: Positive: Conjunctiva & lids normal, EOMI, PERRLA, Negative: Sclera icteric ENT Exam: Positive: Atraumatic, Mucous membr. moist/pink, Nares Patent, Other ENT (edentulous (has both upper and lower dentures, currently not present)), Pharynx Normal, Pinna Normal, Tongue Midline Neck Exam: Positive: Other (trachea midline), Supple, Negative: JVD, Lymphadenopathy, thyromegaly Chest Exam: Positive: Clear to auscultation, Normal air movement Heart Exam: Positive: Normal S1, Normal S2, Rate Normal, Regular Rhythm, Negative: Murmurs, Rubs Abdomen Exam: Positive: Normal bowel sounds, Other (midline healed abdominal incision with associated healed laparoscopic incisions; tympanic evaluation of abdomen revealed no acute abnormalities; excessive abdominal skin noted), Soft, Negative: Hepatospenomegaly, Hernia (no abdominal hernia noted on physical exam), Mass Extremity Exam: Positive: Edema (nonpitting edema noted more so on the left lower extremity done the right), Normal pulses (upper and lower extremities symmetrical bilaterally), Tenderness (tenderness with palpation to the lower extremities), Negative: Clubbing, Cyanosis Skin Exam: Positive: Other skin issue (dry skin noted on upper extremities) Neuro Exam: Positive: Cranial Nerves 3-12 NL, Normal Speech, Strength at 5/5 X4 ext (preserved strength in upper and lower extremities bilaterally) Psych Exam: Positive: Oriented x 3 Assessment /Plan Problems (1) Ulcerative colitis Status: Acute Problem Text: * will continue steroids and sulfasalazine * follows up with dr Kiran (2) Hematochezia Status: Resolved Problem Text: * likely flare of ulcerative colitis, viral enteritis, clostridium difficile infection * resolved (3) Diarrhea Status: Resolved Problem Text: * cdiff positive * continue Dificid, 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 * will speak with dr yanez on tuesday for prison plan (4) Thrombocytosis Status: Resolved (5) Diastolic congestive heart failure Status: Chronic Problem Text: Hold patient's home dose of Lasix secondary to patient's chronic diarrhea and possible underlying dehydration (6) Iron deficiency anemia Status: Chronic Plan/VTE VTE Prophylaxis Ordered?: Yes (TEDs and sequentials) Plan IVF: Initiate (IVF at 60 miles per hour) Diet: Make NPO (patient may have ice chips) Activity: Bedrest (with commode privileges) Therapy: PT (secondary to weakness, dizziness, lightheadedness) Diagnostics: Check Labs, Repeat Labs in AM, Obtain Cultures, CT (abdomen and pelvis with by mouth contrast) Anticipated Discharge: [facility] VS[facility] Vital Signs/I&O Vital Signs Date Time Temp Pulse Resp B/P Pulse Ox O2 Delivery O2 Flow Rate FiO2 08/07/16 06:00 75 108/62 75 102/64 85 96/58 08/07/16 06:00 97.6 18 97 Room Air I&O- Last 24 Hours up to 6 AM 08/07/16 06:00 Intake Total 2130 ml Output Total 3570 ml Balance -1440 ml Laboratory Data 24H LABS Laboratory Tests 2 08/07/16 05:54: Blood Urea Nitrogen 12, Creatinine 0.68, Sodium Level 145, Potassium Level 3.9, Chloride Level 112H, Carbon Dioxide Level 27, Calcium Level 9.0, Aspartate Amino Transf (AST/SGOT) 12L, Alanine Aminotransferase (ALT/SGPT) 22, Alkaline Phosphatase 136H, Total Bilirubin 0.1L, Total Protein 5.2L, Albumin 1.7L, Albumin/Globulin Ratio 0.49L, Anion Gap 6L, White Blood Count 12.0H, Red Blood Count 3.99L, Hemoglobin 10.8L, Hematocrit 35.0L, Mean Corpuscular Volume 87.5, Mean Corpuscular Hemoglobin 27.1, Mean Corpuscular Hemoglobin Concent 31.0L, Red Cell Distribution Width 13.3, Platelet Count 434, Neutrophils (%) (Auto) 80.3H, Lymphocytes (%) (Auto) 11.0L, Monocytes (%) (Auto) 6.5H, Eosinophils (%) (Auto) 0.6, Basophils (%) (Auto) 0.1, Neutrophils # (Auto) 9.6H, Lymphocytes # ( Auto) 1.3L, Monocytes # (Auto) 0.8, Eosinophils # (Auto) 0.1, Basophils # (Auto ) 0.0, Glomerular Filtration Rate > 60.0, Large Unclassified Cells # 0.2, Large Unclassified Cells % 1.5, Magnesium Level 2.1 CBC/BMP Laboratory Tests 08/07/16 05:54 Calcium Level 9.0, Aspartate Amino Transf (AST/SGOT) 12 L, Alanine Aminotransferase (ALT/SGPT) 22, Alkaline Phosphatase 136 H, Total Bilirubin 0.1 L, Total Protein 5.2 L, Albumin 1.7 L, Red Blood Count 3.99 L, Mean Corpuscular Volume 87.5, Mean Corpuscular Hemoglobin 27.1, Mean Corpuscular Hemoglobin Concent 31.0 L, Red Cell Distribution Width 13.3, Neutrophils (%) (Auto) 80.3 H , Lymphocytes (%) (Auto) 11.0 L, Monocytes (%) (Auto) 6.5 H, Eosinophils (%) ( Auto) 0.6, Basophils (%) (Auto) 0.1, Neutrophils # (Auto) 9.6 H, Lymphocytes # ( Auto) 1.3 L, Monocytes # (Auto) 0.8, Eosinophils # (Auto) 0.1, Basophils # (Auto ) 0.0 Microbiology Microbiology 08/04/16 Blood Culture - Preliminary, Resulted No Growth after 72 hours. All specime... 08/04/16 Gastrointestinal Tract Panel (PCR) - Final, Complete Clostridium Difficile A/B 08/05/16 Urine Culture - Final, Complete NIMA NULL DO Aug 07, 2016 12:12
[2016-08-07 14:00] VITALS: BP 120/60
[2016-08-07 22:00] VITALS: BP 105/57
[2016-08-08] MEDS: methylPREDNISolone INJ 40 MG/1 ML VIAL (J2920) IV SCH ×2 (05:33→12:17)
[2016-08-08 06:00] VITALS: BP_SYST 123; BP_SYST 137; BP_DIAS 60; BP_DIAS 62; BP_DIAS 67
[2016-08-08 06:30] LABS: BASO % 0.1 % (0.0-1.0); EOS % 0.2 % (0.0-3.0); LARGE UNSTAINED CELL # 0.1 K/mm3 (0.0-0.4); LYMPH # 1.2 K/mm3 (1.5-4.5); LYMPH % 12.2 % (24.0-44.0); MEAN CORPUSCULAR HEMOGLOBIN 27.1 pg (27.0-33.0); MEAN CORPUSCULAR HGB CONC 30.7 g/dl (32.0-36.5); MEAN CORPUSCULAR VOLUME 88.2 fl (80.0-96.0); MONO # 0.5 K/mm3 (0.0-0.8); MONO % 6.1 % (0.0-5.0); NEUTROPHILS # 7.2 K/mm3 (1.8-7.7); NEUTROPHILS % 80.5 % (36.0-66.0); PLATELET COUNT, AUTOMATED 376 k/mm3 (150-450); RED CELL DISTRIBUTION WIDTH 13.7 % (11.5-14.5)
[2016-08-08 06:36] LABS: ALBUMIN 1.6 GM/DL (3.2-5.2); ALBUMIN/GLOBULIN RATIO 0.55 (1.00-1.93); ALKALINE PHOSPHATASE 95 U/L (45-117); ALT/SGPT 20 U/L (12-78); ANION GAP 5 MEQ/L (8-16); AST/SGOT 11 U/L (15-37); BILIRUBIN,TOTAL 0.2 MG/DL (0.2-1.0); BLOOD UREA NITROGEN 14 MG/DL (7-18); CALCIUM LEVEL 8.9 MG/DL (8.8-10.2); CARBON DIOXIDE LEVEL 29 MEQ/L (21-32); CHLORIDE LEVEL 111 MEQ/L (98-107); CREATININE FOR GFR 0.61 MG/DL (0.55-1.02); GLOMERULAR FILTRATION RATE > 60.0 (>45); GLUCOSE, FASTING 123 MG/DL (80-110); MAGNESIUM LEVEL 2.1 MG/DL (1.8-2.4); POTASSIUM SERUM 3.3 MEQ/L (3.5-5.1); SODIUM LEVEL 145 MEQ/L (136-145); TOTAL PROTEIN 4.5 GM/DL (6.4-8.2)
[2016-08-08] MEDS: FLUoxetine 20 MG CAP PO SCH (09:42)
[2016-08-08] MEDS: sulfaSALAzine 500 MG TABEC PO SCH ×3 (09:42→20:26)
[2016-08-08] MEDS: POTASSIUM CHLORIDE 10 MEQ SR TABLET PO SCH (09:42)
[2016-08-08] MEDS: MULTIVITAMINS/MINERALS THERAP 1 TAB PO SCH (09:42)
[2016-08-08] MEDS: FERROUS SULFATE 325MG TAB PO SCH ×2 (09:43→20:26)
[2016-08-08] MEDS: LACTOBACILLUS ACIDOPHILUS CAP (BACID) PO SCH (09:43)
[2016-08-08] MEDS: FIDAXOMICIN 200 MG TAB (DIFICID) PO SCH ×2 (09:43→20:26)
[2016-08-08] MEDS: FUROSEMIDE 40 MG/4 ML VIAL (J1940) IV SCH (09:44)
--- NOTE | 2016-08-08 12:57 | IPNPDOC ---
Subjective Date Seen The patient was seen on 08/08/16. Subjective Chief Complaint/HPI The patient is a 70-year-old female admitted with a reason for visit of Ulcerative Colitis. Events since last encounter pt seen and examined, doing well, no overnight events , denies any diarrhea states stool is now formed, no blood in stool Constitutional: Denies: Chills, Fever, Night Sweats Objective Physical Examination General Exam: Positive: Alert, Cooperative, Other (appears older than stated age) Eye Exam: Positive: Conjunctiva & lids normal, EOMI, PERRLA, Negative: Sclera icteric ENT Exam: Positive: Atraumatic, Mucous membr. moist/pink, Nares Patent, Other ENT (edentulous (has both upper and lower dentures, currently not present)), Pharynx Normal, Pinna Normal, Tongue Midline Neck Exam: Positive: Other (trachea midline), Supple, Negative: JVD, Lymphadenopathy, thyromegaly Chest Exam: Positive: Clear to auscultation, Normal air movement Heart Exam: Positive: Normal S1, Normal S2, Rate Normal, Regular Rhythm, Negative: Murmurs, Rubs Abdomen Exam: Positive: Normal bowel sounds, Other (midline healed abdominal incision with associated healed laparoscopic incisions; tympanic evaluation of abdomen revealed no acute abnormalities; excessive abdominal skin noted), Soft, Negative: Hepatospenomegaly, Hernia (no abdominal hernia noted on physical exam), Mass Extremity Exam: Positive: Edema (nonpitting edema noted more so on the left lower extremity done the right), Normal pulses (upper and lower extremities symmetrical bilaterally), Negative: Clubbing, Cyanosis Skin Exam: Positive: Other skin issue (dry skin noted on upper extremities) Neuro Exam: Positive: Cranial Nerves 3-12 NL, Normal Speech, Strength at 5/5 X4 ext (preserved strength in upper and lower extremities bilaterally) Psych Exam: Positive: Oriented x 3 Assessment /Plan Problems (1) Ulcerative colitis Status: Acute Problem Text: * will switch solumedrol to oral prednisone * continue sulfasalazine * follows up with dr Kiran (2) Hematochezia Status: Resolved Problem Text: * likely flare of ulcerative colitis, viral enteritis, clostridium difficile infection * resolved (3) Diarrhea Status: Resolved Problem Text: * cdiff positive * continue Dificid, 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 * will speak with dr yanez on tuesday for care home plan (4) Thrombocytosis Status: Resolved (5) Diastolic congestive heart failure Status: Chronic Problem Text: * continue one more day of IV lasix * will switch back to oral lasix on discharge (6) Iron deficiency anemia Status: Chronic Problem Text: * continue oral iron Plan/VTE VTE Prophylaxis Ordered?: Yes (TEDs and sequentials) Plan IVF: Initiate (IVF at 60 miles per hour) Diet: Make NPO (patient may have ice chips) Activity: Bedrest (with commode privileges) Therapy: PT (secondary to weakness, dizziness, lightheadedness) Diagnostics: Check Labs, Repeat Labs in AM, Obtain Cultures, CT (abdomen and pelvis with by mouth contrast) Anticipated Discharge: Home VS, I&O, [facility] Vital Signs/I&O Vital Signs Date Time Temp Pulse Resp B/P Pulse Ox O2 Delivery O2 Flow Rate FiO2 08/08/16 06:00 98.5 72 16 137/67 97 Room Air I&O- Last 24 Hours up to 6 AM 08/08/16 06:00 Intake Total 1440 ml Output Total 2800 ml Balance -1360 ml Laboratory Data 24H LABS Laboratory Tests 2 08/08/16 06:00: Blood Urea Nitrogen 14, Creatinine 0.61, Sodium Level 145, Potassium Level 3.3L , Chloride Level 111H, Carbon Dioxide Level 29, Calcium Level 8.9, Aspartate Amino Transf (AST/SGOT) 11L, Alanine Aminotransferase (ALT/SGPT) 20, Alkaline Phosphatase 95, Total Bilirubin 0.2#, Total Protein 4.5L, Albumin 1.6L, Albumin/ Globulin Ratio 0.55L, Anion Gap 5L, White Blood Count 9.0, Red Blood Count 3.50L , Hemoglobin 9.5L, Hematocrit 30.8L, Mean Corpuscular Volume 88.2, Mean Corpuscular Hemoglobin 27.1, Mean Corpuscular Hemoglobin Concent 30.7L, Red Cell Distribution Width 13.7, Platelet Count 376, Neutrophils (%) (Auto) 80.5H, Lymphocytes (%) (Auto) 12.2L, Monocytes (%) (Auto) 6.1H, Eosinophils (%) (Auto) 0.2, Basophils (%) (Auto) 0.1, Neutrophils # (Auto) 7.2, Lymphocytes # (Auto) 1.2L, Monocytes # (Auto) 0.5, Eosinophils # (Auto) 0.0, Basophils # (Auto) 0.0, Glomerular Filtration Rate > 60.0, Large Unclassified Cells # 0.1, Large Unclassified Cells % 1.0, Magnesium Level 2.1 CBC/BMP Laboratory Tests 08/08/16 06:00 Calcium Level 8.9, Aspartate Amino Transf (AST/SGOT) 11 L, Alanine Aminotransferase (ALT/SGPT) 20, Alkaline Phosphatase 95, Total Bilirubin 0.2 #, Total Protein 4.5 L, Albumin 1.6 L, Red Blood Count 3.50 L, Mean Corpuscular Volume 88.2, Mean Corpuscular Hemoglobin 27.1, Mean Corpuscular Hemoglobin Concent 30.7 L, Red Cell Distribution Width 13.7, Neutrophils (%) (Auto) 80.5 H , Lymphocytes (%) (Auto) 12.2 L, Monocytes (%) (Auto) 6.1 H, Eosinophils (%) ( Auto) 0.2, Basophils (%) (Auto) 0.1, Neutrophils # (Auto) 7.2, Lymphocytes # ( Auto) 1.2 L, Monocytes # (Auto) 0.5, Eosinophils # (Auto) 0.0, Basophils # (Auto ) 0.0 Microbiology Microbiology 08/04/16 Blood Culture - Preliminary, Resulted No Growth after 72 hours. All specime... 08/04/16 Gastrointestinal Tract Panel (PCR) - Final, Complete Clostridium Difficile A/B 08/05/16 Urine Culture - Final, Complete NIMA NULL DO Aug 08, 2016 12:57
[2016-08-08] MEDS ORDERED: POTASSIUM CHLORIDE 10 MEQ SR TABLET PO ONE (13:30)
[2016-08-08 14:00] VITALS: BP 120/60
[2016-08-08] MEDS: predniSONE 20 MG TAB PO SCH (20:26)
[2016-08-08 22:00] VITALS: BP 116/56
[2016-08-09 06:00] VITALS: BP_SYST 125; BP_SYST 133; BP_SYST 135; BP_DIAS 59; BP_DIAS 60; BP_DIAS 62
[2016-08-09 06:19] LABS: BASO % 0.1 % (0.0-1.0); EOS % 0.1 % (0.0-3.0); LARGE UNSTAINED CELL # 0.1 K/mm3 (0.0-0.4); LARGE UNSTAINED CELL % 1.1 % (0.0-4.0); LYMPH # 0.8 K/mm3 (1.5-4.5); LYMPH % 8.3 % (24.0-44.0); MEAN CORPUSCULAR HEMOGLOBIN 26.9 pg (27.0-33.0); MEAN CORPUSCULAR HGB CONC 30.6 g/dl (32.0-36.5); MONO # 0.7 K/mm3 (0.0-0.8); MONO % 6.7 % (0.0-5.0); NEUTROPHILS # 8.4 K/mm3 (1.8-7.7); NEUTROPHILS % 83.7 % (36.0-66.0); PLATELET COUNT, AUTOMATED 341 k/mm3 (150-450); RED CELL DISTRIBUTION WIDTH 13.5 % (11.5-14.5)
[2016-08-09 06:31] LABS: ALBUMIN 1.8 GM/DL (3.2-5.2); ALBUMIN/GLOBULIN RATIO 0.58 (1.00-1.93); ALKALINE PHOSPHATASE 94 U/L (45-117); ALT/SGPT 28 U/L (12-78); ANION GAP 3 MEQ/L (8-16); AST/SGOT 13 U/L (15-37); BILIRUBIN,TOTAL 0.2 MG/DL (0.2-1.0); BLOOD UREA NITROGEN 17 MG/DL (7-18); CALCIUM LEVEL 9.2 MG/DL (8.8-10.2); CARBON DIOXIDE LEVEL 31 MEQ/L (21-32); CHLORIDE LEVEL 112 MEQ/L (98-107); CREATININE FOR GFR 0.65 MG/DL (0.55-1.02); GLOMERULAR FILTRATION RATE > 60.0 (>45); GLUCOSE, FASTING 125 MG/DL (80-110); POTASSIUM SERUM 4.7 MEQ/L (3.5-5.1); SODIUM LEVEL 146 MEQ/L (136-145); TOTAL PROTEIN 4.9 GM/DL (6.4-8.2)
[2016-08-09] MEDS: POTASSIUM CHLORIDE 10 MEQ SR TABLET PO SCH (09:35)
[2016-08-09] MEDS: FUROSEMIDE 40 MG/4 ML VIAL (J1940) IV SCH (09:35)
[2016-08-09] MEDS: MULTIVITAMINS/MINERALS THERAP 1 TAB PO SCH (09:35)
[2016-08-09] MEDS: FIDAXOMICIN 200 MG TAB (DIFICID) PO SCH ×2 (09:35→21:47)
[2016-08-09] MEDS: FERROUS SULFATE 325MG TAB PO SCH ×2 (09:35→21:47)
[2016-08-09] MEDS: FLUoxetine 20 MG CAP PO SCH (09:35)
[2016-08-09] MEDS: predniSONE 20 MG TAB PO SCH ×2 (09:35→21:47)
[2016-08-09] MEDS: LACTOBACILLUS ACIDOPHILUS CAP (BACID) PO SCH ×2 (09:35→21:47)
[2016-08-09] MEDS: sulfaSALAzine 500 MG TABEC PO SCH ×3 (09:35→21:46)
[2016-08-09] MEDS: ENOXAPARIN 60 MG/0.6 ML SYR (J1650) SC SCH ×2 (14:13→21:46)
--- NOTE | 2016-08-09 15:03 | IPNPDOC ---
Subjective Date Seen The patient was seen on 08/09/16. Subjective Chief Complaint/HPI The patient is a 70-year-old female admitted with a reason for visit of Ulcerative Colitis. Constitutional: Denies: Chills, Fever, Night Sweats Pulmonary: Denies: Cough, Dyspnea Gastrointestinal: Reports: Diarrhea, Denies: Abdominal Pain, Constipation, Nausea, Vomiting Objective Physical Examination General Exam: Positive: Alert, Cooperative, Other (appears older than stated age) Eye Exam: Positive: Conjunctiva & lids normal, EOMI, PERRLA, Negative: Sclera icteric ENT Exam: Positive: Atraumatic, Mucous membr. moist/pink, Nares Patent, Other ENT (edentulous (has both upper and lower dentures, currently not present)), Pharynx Normal, Pinna Normal, Tongue Midline Neck Exam: Positive: Other (trachea midline), Supple, Negative: JVD, Lymphadenopathy, thyromegaly Chest Exam: Positive: Clear to auscultation, Normal air movement Heart Exam: Positive: Normal S1, Normal S2, Rate Normal, Regular Rhythm, Negative: Murmurs, Rubs Abdomen Exam: Positive: Normal bowel sounds, Other (midline healed abdominal incision with associated healed laparoscopic incisions; tympanic evaluation of abdomen revealed no acute abnormalities; excessive abdominal skin noted), Soft, Negative: Hepatospenomegaly, Hernia (no abdominal hernia noted on physical exam), Mass Extremity Exam: Positive: Edema (nonpitting edema noted more so on the left lower extremity done the right), Normal pulses (upper and lower extremities symmetrical bilaterally), Negative: Clubbing, Cyanosis Skin Exam: Positive: Other skin issue (dry skin noted on upper extremities) Neuro Exam: Positive: Cranial Nerves 3-12 NL, Normal Speech, Strength at 5/5 X4 ext (preserved strength in upper and lower extremities bilaterally) Psych Exam: Positive: Oriented x 3 Assessment /Plan Problems (1) Diarrhea Status: Resolved Problem Text: * cdiff positive, * continue Dificid, 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 * Dr yanez will see pt in consultation (2) Ulcerative colitis Status: Acute Response to Treatment: Improving Problem Text: * continue prednisone * continue sulfasalazine * follows up with dr Kiran (3) Pulmonary emboli Status: Chronic Problem Text: * pt came in on coumadin which was held due to hematochezia * will restart pt on lovenox and coumadin and monitor for bleeding over the next few days (4) Hematochezia Status: Resolved Problem Text: * likely flare of ulcerative colitis, viral enteritis, clostridium difficile infection * resolved (5) Thrombocytosis Status: Resolved (6) Diastolic congestive heart failure Status: Chronic Problem Text: * will switch to oral lasix (7) Iron deficiency anemia Status: Chronic Problem Text: * continue oral iron Plan/VTE VTE Prophylaxis Ordered?: Yes (TEDs and sequentials) Plan IVF: Initiate (IVF at 60 miles per hour) Diet: Make NPO (patient may have ice chips) Activity: Bedrest (with commode privileges) Therapy: PT (secondary to weakness, dizziness, lightheadedness) Diagnostics: Check Labs, Repeat Labs in AM, Obtain Cultures, CT (abdomen and pelvis with by mouth contrast) Anticipated Discharge: Home VS, I&O, 24H, [facility] Vital Signs/I&O Vital Signs Date Time Temp Pulse Resp B/P Pulse Ox O2 Delivery O2 Flow Rate FiO2 08/09/16 07:49 Room Air 08/09/16 06:00 97.9 71 16 135/62 96 I&O- Last 24 Hours up to 6 AM 08/09/16 06:00 Intake Total 1970 ml Output Total 1800 ml Balance 170 ml Laboratory Data 24H LABS Laboratory Tests 2 08/09/16 05:53: Blood Urea Nitrogen 17, Creatinine 0.65, Sodium Level 146H, Potassium Level 4.7# , Chloride Level 112H, Carbon Dioxide Level 31, Calcium Level 9.2, Aspartate Amino Transf (AST/SGOT) 13L, Alanine Aminotransferase (ALT/SGPT) 28, Alkaline Phosphatase 94, Total Bilirubin 0.2, Total Protein 4.9L, Albumin 1.8L, Albumin/ Globulin Ratio 0.58L, Anion Gap 3L, White Blood Count 10.0, Red Blood Count 3.69L, Hemoglobin 9.9L, Hematocrit 32.5L, Mean Corpuscular Volume 88.0, Mean Corpuscular Hemoglobin 26.9L, Mean Corpuscular Hemoglobin Concent 30.6L, Red Cell Distribution Width 13.5, Platelet Count 341, Neutrophils (%) (Auto) 83.7H, Lymphocytes (%) (Auto) 8.3L, Monocytes (%) (Auto) 6.7H, Eosinophils (%) (Auto) 0.1, Basophils (%) (Auto) 0.1, Neutrophils # (Auto) 8.4H, Lymphocytes # (Auto) 0.8L, Monocytes # (Auto) 0.7, Eosinophils # (Auto) 0.0, Basophils # (Auto) 0.0, Glomerular Filtration Rate > 60.0, Large Unclassified Cells # 0.1, Large Unclassified Cells % 1.1, Magnesium Level 2.0 CBC/BMP Laboratory Tests 08/09/16 05:53 Calcium Level 9.2, Aspartate Amino Transf (AST/SGOT) 13 L, Alanine Aminotransferase (ALT/SGPT) 28, Alkaline Phosphatase 94, Total Bilirubin 0.2, Total Protein 4.9 L, Albumin 1.8 L, Red Blood Count 3.69 L, Mean Corpuscular Volume 88.0, Mean Corpuscular Hemoglobin 26.9 L, Mean Corpuscular Hemoglobin Concent 30.6 L, Red Cell Distribution Width 13.5, Neutrophils (%) (Auto) 83.7 H , Lymphocytes (%) (Auto) 8.3 L, Monocytes (%) (Auto) 6.7 H, Eosinophils (%) ( Auto) 0.1, Basophils (%) (Auto) 0.1, Neutrophils # (Auto) 8.4 H, Lymphocytes # ( Auto) 0.8 L, Monocytes # (Auto) 0.7, Eosinophils # (Auto) 0.0, Basophils # (Auto ) 0.0 Microbiology Microbiology 08/04/16 Blood Culture - Final, Complete NO GROWTH AFTER 5 DAYS 08/04/16 Gastrointestinal Tract Panel (PCR) - Final, Complete Clostridium Difficile A/B 08/05/16 Urine Culture - Final, Complete NIMA NULL DO Aug 09, 2016 15:03
[2016-08-09] MEDS: WARFARIN SOD 4 MG TAB PO SCH (16:20)
--- NOTE | 2016-08-09 17:13 | CR ---
DATE OF CONSULTATION: 08/09/2016 CONSULTATION REPORT FOR: Dr. Ellyn Darling REASON FOR CONSULTATION: Evaluation of recurrent Clostridium (C) difficile colitis. Mrs. Guerra is a pleasant 70-year-old female with a history of ulcerative colitis and C. difficile colitis that dates back to March of 2016. The patient was initially treated on 04/03/2016 when she had C. difficile as well as Escherichia (E) coli extended-spectrum beta-lactamase (ESBL). 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 She was discharged home a week later with bowel movements that were back to her baseline which is about 4-8 bowel movements a day, soft. When she was discharged home she did not receive steroids which she thinks made her ulcerative colitis better controlled. She then developed about a week prior to admission severe diarrhea associated with bright red blood per rectum and mucus. She was having abdominal cramps, nausea and vomiting with anorexia. She finally got readmitted because of concern for severe bleeding. On 08/03/2016 her white count was 9.4, on admission was 7.7. The patient was started on fidaxomicin. In the past 24 hours she states her bowel movement is non bloody, it has some consistency to it. She only had two bowel movements today, there was very little mucous. She has had no fever but has chills. Her appetite is back to normal. She still has significant lower extremity edema. PAST MEDICAL HISTORY: Significant for ulcerative colitis followed up by Dr. 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 FAMILY HISTORY: Heart disease in her father, sister with ulcerative colitis at the age of 17. SOCIAL HISTORY: She quit smoking in 2000. Denies alcohol use. 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 She lives alone. REVIEW OF SYSTEMS: She denies any fever. She has some chills. No night sweats. She does have vague abdominal pain but has improved. Rectal bleeding has resolved, mucus in the stool. Denies upper or lower extremity weakness. No chest pain or shortness of breath. She has significant lower extremity edema and complains of tremors. PHYSICAL EXAMINATION: She is healthy, pleasant female in no acute distress. Temperature is 97.9, pulse 72, respirations 16, blood pressure 135/62, oxygen saturation 96% on room air. HEART: Normal S1, S2. No murmurs, rubs or gallops appreciated. LUNGS: Clear. No wheezes, rales, or rhonchi. ABDOMEN: Soft, mildly tender in the left lower quadrant. No rebound. Bowel sounds normal. BACK: No costovertebral angle (CVA) or lumbosacral tenderness. EXTREMITIES: +2 ankle edema bilaterally, soft, nontender. No calf tenderness. LABORATORY DATA: White count is 10, hemoglobin 9.9, hematocrit 32.5, platelets 341, 83% neutrophils, 8% lymphocytes. Sodium 146, potassium 4.7, chloride 112, bicarbonate 31, BUN 17, creatinine 0.65, glucose 125, calcium 9.2, total protein 4.9, albumin 1.8. Stool for C. difficile was positive on 08/04/2016. Blood culture negative and urine culture negative. Urinalysis had +3 leukocyte esterase, 13 white cells. IMAGING STUDY: CT of the abdomen was done on 08/04/2016, shows focal thickening of the colon suggestive of colitis not present on previous exam. Comparison was done on 09/17/2015, hepatocellular liver disease and diastasis of the anterior abdominal wall, thickened bladder suggestive of mild cystitis. IMPRESSION: This is a 70-year-old female who is admitted with bloody diarrhea, mucoid, that was diagnosed with recurrent Clostridium (C) difficile colitis. This is her third episode. She has failed a stool transplantation from previous admission done on 06/23/2016. The patient has responded to fidaxomicin 200 mg by mouth twice a day, she is currently day #5. The patient is also on probiotics one tablet by mouth daily. PLAN: Continue with prednisone to help with ulcerative colitis which has helped a lot with her abdominal symptoms, sulfasalazine 500 mg by mouth three times a day. As far as Clostridium (C) difficile is concerned, I would treat her with fidaxomicin 200 mg by mouth twice a day for at least 14 days. Avoid proton pump inhibitors (PPIs). Continue with probiotic, at least one tablet twice a day, and encourage yogurt intake. If the patient relapses after fidaxamicin, then she will need another transplantation. At this point we can hold off since she has responded well.
[2016-08-09 22:00] VITALS: BP 116/66
[2016-08-10 06:00] VITALS: BP_SYST 107; BP_SYST 121; BP_SYST 127; BP_DIAS 53; BP_DIAS 60
[2016-08-10 06:34] LABS: BASO % 0.1 % (0.0-1.0); EOS % 0.1 % (0.0-3.0); LARGE UNSTAINED CELL # 0.1 K/mm3 (0.0-0.4); LARGE UNSTAINED CELL % 0.8 % (0.0-4.0); LYMPH # 0.9 K/mm3 (1.5-4.5); LYMPH % 10.3 % (24.0-44.0); MEAN CORPUSCULAR HEMOGLOBIN 27.4 pg (27.0-33.0); MEAN CORPUSCULAR HGB CONC 30.9 g/dl (32.0-36.5); MEAN CORPUSCULAR VOLUME 88.9 fl (80.0-96.0); MONO # 0.4 K/mm3 (0.0-0.8); NEUTROPHILS # 6.8 K/mm3 (1.8-7.7); NEUTROPHILS % 83.7 % (36.0-66.0); PLATELET COUNT, AUTOMATED 331 k/mm3 (150-450); RED CELL DISTRIBUTION WIDTH 13.4 % (11.5-14.5); WHITE BLOOD COUNT 8.1 K/mm3 (4.0-10.0)
[2016-08-10 06:38] LABS: INR 1.16
[2016-08-10 06:43] LABS: ALBUMIN 1.8 GM/DL (3.2-5.2); ALBUMIN/GLOBULIN RATIO 0.62 (1.00-1.93); ALKALINE PHOSPHATASE 89 U/L (45-117); ALT/SGPT 28 U/L (12-78); ANION GAP 3 MEQ/L (8-16); AST/SGOT 14 U/L (15-37); BILIRUBIN,TOTAL 0.2 MG/DL (0.2-1.0); BLOOD UREA NITROGEN 16 MG/DL (7-18); CALCIUM LEVEL 8.8 MG/DL (8.8-10.2); CARBON DIOXIDE LEVEL 32 MEQ/L (21-32); CHLORIDE LEVEL 111 MEQ/L (98-107); CREATININE FOR GFR 0.64 MG/DL (0.55-1.02); GLOMERULAR FILTRATION RATE > 60.0 (>45); GLUCOSE, FASTING 128 MG/DL (80-110); POTASSIUM SERUM 4.4 MEQ/L (3.5-5.1); SODIUM LEVEL 146 MEQ/L (136-145); TOTAL PROTEIN 4.7 GM/DL (6.4-8.2)
[2016-08-10] MEDS: POTASSIUM CHLORIDE 10 MEQ SR TABLET PO SCH (08:14)
[2016-08-10] MEDS: FIDAXOMICIN 200 MG TAB (DIFICID) PO SCH ×2 (08:14→21:24)
[2016-08-10] MEDS: sulfaSALAzine 500 MG TABEC PO SCH ×3 (08:14→21:23)
[2016-08-10] MEDS: predniSONE 20 MG TAB PO SCH ×2 (08:14→21:24)
[2016-08-10] MEDS: LACTOBACILLUS ACIDOPHILUS CAP (BACID) PO SCH ×2 (08:14→21:23)
[2016-08-10] MEDS: ENOXAPARIN 60 MG/0.6 ML SYR (J1650) SC SCH ×2 (08:14→21:24)
[2016-08-10] MEDS: MULTIVITAMINS/MINERALS THERAP 1 TAB PO SCH (08:14)
[2016-08-10] MEDS: FERROUS SULFATE 325MG TAB PO SCH ×2 (08:14→21:24)
[2016-08-10] MEDS: FLUoxetine 20 MG CAP PO SCH (08:15)
[2016-08-10] MEDS: FUROSEMIDE 40 MG TAB PO SCH (08:15)
[2016-08-10] MEDS ORDERED: LOVE0.4I2 SC (09:51)
[2016-08-10] MEDS ORDERED: DIFI200T PO (09:51)
--- NOTE | 2016-08-10 09:52 | IPNPDOC ---
Subjective Date Seen The patient was seen on 08/10/16. Subjective Chief Complaint/HPI The patient is a 70-year-old female admitted with a reason for visit of Ulcerative Colitis. Events since last encounter diarrhea much better , no further blood in stools, appetite good, tolerating regular diet. Objective Physical Examination General Exam: Positive: Alert, Cooperative, Other (appears older than stated age) Eye Exam: Positive: Conjunctiva & lids normal, EOMI, PERRLA, Negative: Sclera icteric ENT Exam: Positive: Atraumatic, Mucous membr. moist/pink, Nares Patent, Other ENT (edentulous (has both upper and lower dentures, currently not present)), Pharynx Normal, Pinna Normal, Tongue Midline Neck Exam: Positive: Other (trachea midline), Supple, Negative: JVD, Lymphadenopathy, thyromegaly Chest Exam: Positive: Clear to auscultation, Normal air movement Heart Exam: Positive: Normal S1, Normal S2, Rate Normal, Regular Rhythm, Negative: Murmurs, Rubs Abdomen Exam: Positive: Normal bowel sounds, Other (midline healed abdominal incision with associated healed laparoscopic incisions; tympanic evaluation of abdomen revealed no acute abnormalities; excessive abdominal skin noted), Soft, Negative: Hepatospenomegaly, Hernia (no abdominal hernia noted on physical exam), Mass Extremity Exam: Positive: Edema (nonpitting edema noted more so on the left lower extremity done the right), Normal pulses (upper and lower extremities symmetrical bilaterally), Negative: Clubbing, Cyanosis Skin Exam: Positive: Other skin issue (dry skin noted on upper extremities) Neuro Exam: Positive: Cranial Nerves 3-12 NL, Normal Speech, Strength at 5/5 X4 ext (preserved strength in upper and lower extremities bilaterally) Psych Exam: Positive: Oriented x 3 Assessment /Plan Problems (1) Diarrhea Status: Resolved Problem Text: * cdiff positive, * continue Dificid, 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 (2) Ulcerative colitis Status: Acute Response to Treatment: Improving Problem Text: * continue prednisone * continue sulfasalazine * follows up with dr Kiran (3) Pulmonary emboli Status: Chronic Problem Text: * pt came in on coumadin which was held due to hematochezia * will restart pt on lovenox and coumadin and monitor for bleeding over the next few days (4) Hematochezia Status: Resolved Problem Text: * likely flare of ulcerative colitis, viral enteritis, clostridium difficile infection * resolved (5) Thrombocytosis Status: Resolved (6) Diastolic congestive heart failure Status: Chronic Problem Text: * will switch to oral lasix (7) Iron deficiency anemia Status: Chronic Problem Text: * continue oral iron Plan/VTE VTE Prophylaxis Ordered?: Yes (TEDs and sequentials) Plan IVF: Initiate (IVF at 60 miles per hour) Diet: Make NPO (patient may have ice chips) Activity: Bedrest (with commode privileges) Therapy: PT (secondary to weakness, dizziness, lightheadedness) Diagnostics: Check Labs, Repeat Labs in AM, Obtain Cultures, CT (abdomen and pelvis with by mouth contrast) Anticipated Discharge: Home VS, I&O, 24H, [facility] Vital Signs/I&O Vital Signs Date Time Temp Pulse Resp B/P Pulse Ox O2 Delivery O2 Flow Rate FiO2 08/10/16 06:00 70 127/60 72 121/60 83 107/53 08/10/16 06:00 98.1 18 97 Room Air I&O- Last 24 Hours up to 6 AM 08/10/16 06:00 Intake Total 1500 ml Output Total 2300 ml Balance -800 ml Laboratory Data 24H LABS Laboratory Tests 2 08/10/16 06:06: Blood Urea Nitrogen 16, Creatinine 0.64, Sodium Level 146H, Potassium Level 4.4 , Chloride Level 111H, Carbon Dioxide Level 32, Calcium Level 8.8, Aspartate Amino Transf (AST/SGOT) 14L, Alanine Aminotransferase (ALT/SGPT) 28, Alkaline Phosphatase 89, Total Bilirubin 0.2, Total Protein 4.7L, Albumin 1.8L, Albumin/ Globulin Ratio 0.62L, Anion Gap 3L, White Blood Count 8.1, Red Blood Count 3.56L , Hemoglobin 9.8L, Hematocrit 31.6L, Mean Corpuscular Volume 88.9, Mean Corpuscular Hemoglobin 27.4, Mean Corpuscular Hemoglobin Concent 30.9L, Red Cell Distribution Width 13.4, Platelet Count 331, Neutrophils (%) (Auto) 83.7H, Lymphocytes (%) (Auto) 10.3L, Monocytes (%) (Auto) 5.0, Eosinophils (%) (Auto) 0.1, Basophils (%) (Auto) 0.1, Neutrophils # (Auto) 6.8, Lymphocytes # (Auto) 0.9L, Monocytes # (Auto) 0.4, Eosinophils # (Auto) 0.0, Basophils # (Auto) 0.0, Glomerular Filtration Rate > 60.0, Large Unclassified Cells # 0.1, Large Unclassified Cells % 0.8, Magnesium Level 2.0, Prothromb Time International Ratio 1.16, Prothrombin Time 14.9H CBC/BMP Laboratory Tests 08/10/16 06:06 Calcium Level 8.8, Aspartate Amino Transf (AST/SGOT) 14 L, Alanine Aminotransferase (ALT/SGPT) 28, Alkaline Phosphatase 89, Total Bilirubin 0.2, Total Protein 4.7 L, Albumin 1.8 L, Red Blood Count 3.56 L, Mean Corpuscular Volume 88.9, Mean Corpuscular Hemoglobin 27.4, Mean Corpuscular Hemoglobin Concent 30.9 L, Red Cell Distribution Width 13.4, Neutrophils (%) (Auto) 83.7 H , Lymphocytes (%) (Auto) 10.3 L, Monocytes (%) (Auto) 5.0, Eosinophils (%) (Auto ) 0.1, Basophils (%) (Auto) 0.1, Neutrophils # (Auto) 6.8, Lymphocytes # (Auto) 0.9 L, Monocytes # (Auto) 0.4, Eosinophils # (Auto) 0.0, Basophils # (Auto) 0.0 Microbiology Microbiology 08/04/16 Blood Culture - Final, Complete NO GROWTH AFTER 5 DAYS 08/04/16 Gastrointestinal Tract Panel (PCR) - Final, Complete Clostridium Difficile A/B 08/05/16 Urine Culture - Final, Complete VAN BAIG MD Aug 10, 2016 09:51
[2016-08-10 14:00] VITALS: BP 109/55
[2016-08-10] MEDS: WARFARIN SOD 4 MG TAB PO SCH (16:30)
[2016-08-10 18:00] VITALS: BP_SYST 116; BP_SYST 120; BP_SYST 134; BP_DIAS 57; BP_DIAS 60; BP_DIAS 63
--- NOTE | 2016-08-10 20:31 | IPN ---
DATE: 08/10/2016 Mrs. Guerra seems to be doing much better. She only had five bowel movements yesterday. She still has some lower extremity edema. No fever or chills. No nausea, vomiting, or abdominal pain. Her appetite has improved. They have authorized Lovenox and fidaxomicin for her anticipated discharge tomorrow. She still has to get teaching regarding Lovenox injection. PHYSICAL EXAMINATION: Temperature is 97, pulse 81, respirations 19, blood pressure 109/55, oxygen saturation 97% on room air. HEART: Normal S1,S2. No murmurs. LUNGS: Diminished breath sounds at bases but clear. ABDOMEN: Soft, nontender. EXTREMITIES: +1 pitting edema. LABORATORY DATA: Sodium 146, potassium 4.4, chloride 111, bicarbonate 32, BUN 16, creatinine 0.6, glucose 128, calcium 8.8. Liver profile normal except for albumin of 1.8. White count 8.1, hemoglobin 9.8, hematocrit 31.6, platelets 331. Stool for Clostridium (C) difficile was positive. Urine culture: No growth on August 05. IMPRESSION: 1. Recurrent C. difficile colitis, doing much better on fidaxomicin. She had only five bowel movements in the in the past 24 hours. Would continue 10-day treatment. 2. Ulcerative colitis, improving with higher dose of prednisone and sulfasalazine. 3. Pulmonary emboli, subtherapeutic on Coumadin. The patient will be going home on Lovenox. PT was 14.9, INR 1.16. PLAN: Continue fidaxomicin for 10 more days. Make sure she has prior authorization before discharge. Continue probiotics one tablet by mouth twice a day. Avoid any antibiotics. If recurs, she will need another stool transplantation.
[2016-08-10 22:00] VITALS: BP 110/60
[2016-08-11 07:22] LABS: BASO % 0.1 % (0.0-1.0); EOS # 0.1 K/mm3 (0.0-0.50); EOS % 0.6 % (0.0-3.0); LARGE UNSTAINED CELL # 0.1 K/mm3 (0.0-0.4); LYMPH # 1.1 K/mm3 (1.5-4.5); LYMPH % 10.6 % (24.0-44.0); MEAN CORPUSCULAR HEMOGLOBIN 27.1 pg (27.0-33.0); MEAN CORPUSCULAR HGB CONC 30.8 g/dl (32.0-36.5); MEAN CORPUSCULAR VOLUME 87.9 fl (80.0-96.0); MONO # 0.6 K/mm3 (0.0-0.8); MONO % 5.4 % (0.0-5.0); NEUTROPHILS # 8.6 K/mm3 (1.8-7.7); NEUTROPHILS % 82.2 % (36.0-66.0); PLATELET COUNT, AUTOMATED 329 k/mm3 (150-450); RED CELL DISTRIBUTION WIDTH 13.5 % (11.5-14.5); WHITE BLOOD COUNT 10.4 K/mm3 (4.0-10.0)
[2016-08-11 07:27] LABS: INR 1.1
[2016-08-11 08:06] LABS: ALBUMIN 1.8 GM/DL (3.2-5.2); ALBUMIN/GLOBULIN RATIO 0.67 (1.00-1.93); ALKALINE PHOSPHATASE 81 U/L (45-117); ALT/SGPT 32 U/L (12-78); ANION GAP 5 MEQ/L (8-16); AST/SGOT 12 U/L (15-37); BILIRUBIN,TOTAL 0.1 MG/DL (0.2-1.0); BLOOD UREA NITROGEN 16 MG/DL (7-18); CALCIUM LEVEL 8.8 MG/DL (8.8-10.2); CARBON DIOXIDE LEVEL 29 MEQ/L (21-32); CHLORIDE LEVEL 111 MEQ/L (98-107); CREATININE FOR GFR 0.62 MG/DL (0.55-1.02); GLOMERULAR FILTRATION RATE > 60.0 (>45); GLUCOSE, FASTING 118 MG/DL (80-110); POTASSIUM SERUM 4.4 MEQ/L (3.5-5.1); SODIUM LEVEL 145 MEQ/L (136-145); TOTAL PROTEIN 4.5 GM/DL (6.4-8.2)
[2016-08-11] MEDS: FERROUS SULFATE 325MG TAB PO SCH ×2 (08:44→20:42)
[2016-08-11] MEDS: FLUoxetine 20 MG CAP PO SCH (08:44)
[2016-08-11] MEDS: LACTOBACILLUS ACIDOPHILUS CAP (BACID) PO SCH ×2 (08:44→20:42)
[2016-08-11] MEDS: MULTIVITAMINS/MINERALS THERAP 1 TAB PO SCH (08:44)
[2016-08-11] MEDS: FIDAXOMICIN 200 MG TAB (DIFICID) PO SCH ×2 (08:44→20:42)
[2016-08-11] MEDS: predniSONE 20 MG TAB PO SCH ×2 (08:44→20:42)
[2016-08-11] MEDS: POTASSIUM CHLORIDE 10 MEQ SR TABLET PO SCH (08:44)
[2016-08-11] MEDS: FUROSEMIDE 40 MG TAB PO SCH (08:44)
[2016-08-11] MEDS: sulfaSALAzine 500 MG TABEC PO SCH ×3 (08:44→20:41)
[2016-08-11] MEDS: ENOXAPARIN 60 MG/0.6 ML SYR (J1650) SC SCH ×2 (08:45→20:42)
[2016-08-11] MEDS ORDERED: FUROSEMIDE 40 MG/4 ML VIAL (J1940) IV ONE (11:45)
--- NOTE | 2016-08-11 13:18 | IPNPDOC ---
Subjective Date Seen The patient was seen on 08/11/16. Subjective Chief Complaint/HPI The patient is a 70-year-old female admitted with a reason for visit of Ulcerative Colitis. Events since last encounter again had diarrhea 9 times yesterday, pateint not comfortable with lovenox self injections, there was streaks of blood in the stool. , some abdominal soreness, no fever or chills, no chest pain or sob , Objective Physical Examination General Exam: Positive: Alert, Cooperative, Other (appears older than stated age) Eye Exam: Positive: Conjunctiva & lids normal, EOMI, PERRLA, Negative: Sclera icteric ENT Exam: Positive: Atraumatic, Mucous membr. moist/pink, Nares Patent, Other ENT (edentulous (has both upper and lower dentures, currently not present)), Pharynx Normal, Pinna Normal, Tongue Midline Neck Exam: Positive: Other (trachea midline), Supple, Negative: JVD, Lymphadenopathy, thyromegaly Chest Exam: Positive: Clear to auscultation, Normal air movement Heart Exam: Positive: Normal S1, Normal S2, Rate Normal, Regular Rhythm, Negative: Murmurs, Rubs Abdomen Exam: Positive: Normal bowel sounds, Other (midline healed abdominal incision with associated healed laparoscopic incisions; tympanic evaluation of abdomen revealed no acute abnormalities; excessive abdominal skin noted), Soft, Negative: Hepatospenomegaly, Hernia (no abdominal hernia noted on physical exam), Mass Extremity Exam: Positive: Edema (nonpitting edema noted more so on the left lower extremity done the right), Normal pulses (upper and lower extremities symmetrical bilaterally), Negative: Clubbing, Cyanosis Skin Exam: Positive: Other skin issue (dry skin noted on upper extremities) Neuro Exam: Positive: Cranial Nerves 3-12 NL, Normal Speech, Strength at 5/5 X4 ext (preserved strength in upper and lower extremities bilaterally) Psych Exam: Positive: Oriented x 3 Assessment /Plan Problems (1) Diarrhea Status: Resolved Problem Text: * cdiff positive, * continue Dificid, 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 (2) Ulcerative colitis Status: Acute Response to Treatment: Improving Problem Text: * continue prednisone * continue sulfasalazine * follows up with dr Kiran (3) Pulmonary emboli Status: Chronic Problem Text: * pt came in on coumadin which was held due to hematochezia * will restart pt on lovenox and coumadin and monitor for bleeding over the next few days (4) Hematochezia Status: Resolved Problem Text: * likely flare of ulcerative colitis, viral enteritis, clostridium difficile infection * resolved (5) Thrombocytosis Status: Resolved (6) Diastolic congestive heart failure Status: Chronic Problem Text: * will switch to oral lasix (7) Iron deficiency anemia Status: Chronic Problem Text: * continue oral iron Plan/VTE VTE Prophylaxis Ordered?: Yes (TEDs and sequentials) Plan IVF: Initiate (IVF at 60 miles per hour) Diet: Make NPO (patient may have ice chips) Activity: Bedrest (with commode privileges) Therapy: PT (secondary to weakness, dizziness, lightheadedness) Diagnostics: Check Labs, Repeat Labs in AM, Obtain Cultures, CT (abdomen and pelvis with by mouth contrast) Anticipated Discharge: Home VS, I&O, 24H, [facility] Vital Signs/I&O Vital Signs Date Time Temp Pulse Resp B/P Pulse Ox O2 Delivery O2 Flow Rate FiO2 08/10/16 22:00 98.1 78 18 110/60 99 Room Air I&O- Last 24 Hours up to 6 AM 08/11/16 05:59 Intake Total 1720 ml Output Total 1730 ml Balance -10 ml Laboratory Data 24H LABS Laboratory Tests 2 08/11/16 06:52: Blood Urea Nitrogen 16, Creatinine 0.62, Sodium Level 145, Potassium Level 4.4, Chloride Level 111H, Carbon Dioxide Level 29, Calcium Level 8.8, Aspartate Amino Transf (AST/SGOT) 12L, Alanine Aminotransferase (ALT/SGPT) 32, Alkaline Phosphatase 81, Total Bilirubin 0.1L, Total Protein 4.5L, Albumin 1.8L, Albumin/ Globulin Ratio 0.67L, Anion Gap 5L, White Blood Count 10.4H, Red Blood Count 3.49L, Hemoglobin 9.4L, Hematocrit 30.6L, Mean Corpuscular Volume 87.9, Mean Corpuscular Hemoglobin 27.1, Mean Corpuscular Hemoglobin Concent 30.8L, Red Cell Distribution Width 13.5, Platelet Count 329, Neutrophils (%) (Auto) 82.2H, Lymphocytes (%) (Auto) 10.6L, Monocytes (%) (Auto) 5.4H, Eosinophils (%) (Auto) 0.6, Basophils (%) (Auto) 0.1, Neutrophils # (Auto) 8.6H, Lymphocytes # (Auto) 1.1L, Monocytes # (Auto) 0.6, Eosinophils # (Auto) 0.1, Basophils # (Auto) 0.0, Glomerular Filtration Rate > 60.0, Large Unclassified Cells # 0.1, Large Unclassified Cells % 1.0, Magnesium Level 2.0, Prothromb Time International Ratio 1.10, Prothrombin Time 14.3 CBC/BMP Laboratory Tests 08/11/16 06:52 Calcium Level 8.8, Aspartate Amino Transf (AST/SGOT) 12 L, Alanine Aminotransferase (ALT/SGPT) 32, Alkaline Phosphatase 81, Total Bilirubin 0.1 L, Total Protein 4.5 L, Albumin 1.8 L, Red Blood Count 3.49 L, Mean Corpuscular Volume 87.9, Mean Corpuscular Hemoglobin 27.1, Mean Corpuscular Hemoglobin Concent 30.8 L, Red Cell Distribution Width 13.5, Neutrophils (%) (Auto) 82.2 H , Lymphocytes (%) (Auto) 10.6 L, Monocytes (%) (Auto) 5.4 H, Eosinophils (%) ( Auto) 0.6, Basophils (%) (Auto) 0.1, Neutrophils # (Auto) 8.6 H, Lymphocytes # ( Auto) 1.1 L, Monocytes # (Auto) 0.6, Eosinophils # (Auto) 0.1, Basophils # (Auto ) 0.0 Microbiology Microbiology 08/04/16 Blood Culture - Final, Complete NO GROWTH AFTER 5 DAYS 08/04/16 Gastrointestinal Tract Panel (PCR) - Final, Complete Clostridium Difficile A/B 08/05/16 Urine Culture - Final, Complete VAN BAIG MD Aug 11, 2016 13:18
[2016-08-11 14:00] VITALS: BP 122/53
[2016-08-11] MEDS ORDERED: WARFARIN SOD 3 MG TAB PO SCH (17:00)
[2016-08-11 19:00] VITALS: BP_SYST 107; BP_SYST 111; BP_SYST 115; BP_DIAS 55; BP_DIAS 56; BP_DIAS 58
[2016-08-11 22:00] VITALS: BP 120/60
[2016-08-12 06:00] VITALS: BP_SYST 114; BP_SYST 123; BP_SYST 136; BP_DIAS 56; BP_DIAS 58
[2016-08-12 07:11] LABS: INR 1.12
[2016-08-12] MEDS: LACTOBACILLUS ACIDOPHILUS CAP (BACID) PO SCH ×2 (09:30→20:30)
[2016-08-12] MEDS: FIDAXOMICIN 200 MG TAB (DIFICID) PO SCH ×2 (09:30→20:30)
[2016-08-12] MEDS: ENOXAPARIN 60 MG/0.6 ML SYR (J1650) SC SCH ×2 (09:30→20:30)
[2016-08-12] MEDS: POTASSIUM CHLORIDE 10 MEQ SR TABLET PO SCH (09:31)
[2016-08-12] MEDS: FERROUS SULFATE 325MG TAB PO SCH ×2 (09:31→20:30)
[2016-08-12] MEDS: FUROSEMIDE 40 MG TAB PO SCH (09:31)
[2016-08-12] MEDS: predniSONE 20 MG TAB PO SCH ×2 (09:31→20:30)
[2016-08-12] MEDS: MULTIVITAMINS/MINERALS THERAP 1 TAB PO SCH (09:31)
[2016-08-12] MEDS: sulfaSALAzine 500 MG TABEC PO SCH ×3 (09:31→20:30)
[2016-08-12] MEDS: FLUoxetine 20 MG CAP PO SCH (09:31)
--- NOTE | 2016-08-12 11:33 | IPNPDOC ---
Subjective Date Seen The patient was seen on 08/12/16. Subjective Chief Complaint/HPI The patient is a 70-year-old female admitted with a reason for visit of Ulcerative Colitis. Events since last encounter does not feel too good today , having crampy abdominal pain , had about 6 times diarrhea, feels tremulous, no fever, no nausea or vomiting , no chest pain or sob or cough. Objective Physical Examination General Exam: Positive: Alert, Cooperative, Other (appears older than stated age) Eye Exam: Positive: Conjunctiva & lids normal, EOMI, PERRLA, Negative: Sclera icteric ENT Exam: Positive: Atraumatic, Mucous membr. moist/pink, Nares Patent, Other ENT (edentulous (has both upper and lower dentures, currently not present)), Pharynx Normal, Pinna Normal, Tongue Midline Neck Exam: Positive: Other (trachea midline), Supple, Negative: JVD, Lymphadenopathy, thyromegaly Chest Exam: Positive: Clear to auscultation, Normal air movement Heart Exam: Positive: Normal S1, Normal S2, Rate Normal, Regular Rhythm, Negative: Murmurs, Rubs Abdomen Exam: Positive: Normal bowel sounds, Other (midline healed abdominal incision with associated healed laparoscopic incisions; tympanic evaluation of abdomen revealed no acute abnormalities; excessive abdominal skin noted), Soft, Negative: Hepatospenomegaly, Hernia (no abdominal hernia noted on physical exam), Mass Extremity Exam: Positive: Edema (nonpitting edema noted more so on the left lower extremity done the right), Normal pulses (upper and lower extremities symmetrical bilaterally), Negative: Clubbing, Cyanosis Skin Exam: Positive: Other skin issue (dry skin noted on upper extremities) Neuro Exam: Positive: Cranial Nerves 3-12 NL, Normal Speech, Strength at 5/5 X4 ext (preserved strength in upper and lower extremities bilaterally) Psych Exam: Positive: Oriented x 3 Assessment /Plan Problems (1) Diarrhea Status: Resolved Problem Text: * cdiff positive, * continue Dificid, 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 (2) Ulcerative colitis Status: Acute Response to Treatment: Improving Problem Text: * continue prednisone * continue sulfasalazine * follows up with dr Kiran (3) Pulmonary emboli Status: Chronic Problem Text: * pt came in on coumadin which was held due to hematochezia * will restart pt on lovenox and coumadin and monitor for bleeding over the next few days (4) Hematochezia Status: Resolved Problem Text: * likely flare of ulcerative colitis, viral enteritis, clostridium difficile infection * resolved (5) Thrombocytosis Status: Resolved (6) Diastolic congestive heart failure Status: Chronic Problem Text: * will switch to oral lasix (7) Iron deficiency anemia Status: Chronic Problem Text: * continue oral iron Plan/VTE VTE Prophylaxis Ordered?: Yes (TEDs and sequentials) Plan IVF: Initiate (IVF at 60 miles per hour) Diet: Make NPO (patient may have ice chips) Activity: Bedrest (with commode privileges) Therapy: PT (secondary to weakness, dizziness, lightheadedness) Diagnostics: Check Labs, Repeat Labs in AM, Obtain Cultures, CT (abdomen and pelvis with by mouth contrast) Anticipated Discharge: Home VS, I&O, 24H, [facility] Vital Signs/I&O Vital Signs Date Time Temp Pulse Resp B/P Pulse Ox O2 Delivery O2 Flow Rate FiO2 08/12/16 06:00 66 136/58 67 123/58 76 114/56 08/11/16 22:00 98.3 16 97 Room Air I&O- Last 24 Hours up to 6 AM 08/12/16 06:00 Intake Total 1020 ml Output Total 3300 ml Balance -2280 ml Laboratory Data 24H LABS Laboratory Tests 2 08/12/16 06:37: Prothromb Time International Ratio 1.12, Prothrombin Time 14.5 Microbiology Microbiology 08/04/16 Blood Culture - Final, Complete NO GROWTH AFTER 5 DAYS 08/04/16 Gastrointestinal Tract Panel (PCR) - Final, Complete Clostridium Difficile A/B 08/05/16 Urine Culture - Final, Complete VAN BAIG MD Aug 12, 2016 11:33
[2016-08-12] MEDS: WARFARIN SOD 7.5 MG TAB PO SCH (16:21)
[2016-08-12 22:00] VITALS: BP 108/66
[2016-08-13 06:00] VITALS: BP_SYST 112; BP_SYST 116; BP_SYST 134; BP_DIAS 60; BP_DIAS 64; BP_DIAS 76
[2016-08-13 06:38] LABS: MEAN CORPUSCULAR HEMOGLOBIN 27.4 pg (27.0-33.0); MEAN CORPUSCULAR HGB CONC 30.8 g/dl (32.0-36.5); RED CELL DISTRIBUTION WIDTH 13.6 % (11.5-14.5); WHITE BLOOD COUNT 10.3 K/mm3 (4.0-10.0)
[2016-08-13 06:40] LABS: INR 1.09
[2016-08-13] MEDS: ENOXAPARIN 60 MG/0.6 ML SYR (J1650) SC SCH ×2 (08:22→20:00)
[2016-08-13] MEDS: LACTOBACILLUS ACIDOPHILUS CAP (BACID) PO SCH ×2 (08:23→20:00)
[2016-08-13] MEDS: FIDAXOMICIN 200 MG TAB (DIFICID) PO SCH ×2 (08:23→20:00)
[2016-08-13] MEDS: FLUoxetine 20 MG CAP PO SCH (08:23)
[2016-08-13] MEDS: FUROSEMIDE 40 MG TAB PO SCH ×2 (08:23→16:47)
[2016-08-13] MEDS: FERROUS SULFATE 325MG TAB PO SCH ×2 (08:23→20:00)
[2016-08-13] MEDS: MULTIVITAMINS/MINERALS THERAP 1 TAB PO SCH (08:23)
[2016-08-13] MEDS: sulfaSALAzine 500 MG TABEC PO SCH ×3 (08:23→20:00)
[2016-08-13] MEDS: POTASSIUM CHLORIDE 10 MEQ SR TABLET PO SCH (08:23)
[2016-08-13] MEDS: predniSONE 20 MG TAB PO SCH (08:23)
--- NOTE | 2016-08-13 11:22 | IPNPDOC ---
Subjective Date Seen The patient was seen on 08/13/16. Subjective Chief Complaint/HPI The patient is a 70-year-old female admitted with a reason for visit of Ulcerative Colitis. Events since last encounter continues to have crampy abdominal pain but little less than yesterday. continues to have about 6 to 8 bowel movements daily but getting thicker, has some streaks of blood in them . no fever or chills, no chest pain or SOB , INR still not therapeutic. Objective Physical Examination General Exam: Positive: Alert, Cooperative, Other (appears older than stated age) Eye Exam: Positive: Conjunctiva & lids normal, EOMI, PERRLA, Negative: Sclera icteric ENT Exam: Positive: Atraumatic, Mucous membr. moist/pink, Nares Patent, Other ENT (edentulous (has both upper and lower dentures, currently not present)), Pharynx Normal, Pinna Normal, Tongue Midline Neck Exam: Positive: Other (trachea midline), Supple, Negative: JVD, Lymphadenopathy, thyromegaly Chest Exam: Positive: Clear to auscultation, Normal air movement Heart Exam: Positive: Normal S1, Normal S2, Rate Normal, Regular Rhythm, Negative: Murmurs, Rubs Abdomen Exam: Positive: Normal bowel sounds, Other (midline healed abdominal incision with associated healed laparoscopic incisions; tympanic evaluation of abdomen revealed no acute abnormalities; excessive abdominal skin noted), Soft, Negative: Hepatospenomegaly, Hernia (no abdominal hernia noted on physical exam), Mass Extremity Exam: Positive: Edema (nonpitting edema noted more so on the left lower extremity done the right), Normal pulses (upper and lower extremities symmetrical bilaterally), Negative: Clubbing, Cyanosis Skin Exam: Positive: Other skin issue (dry skin noted on upper extremities) Neuro Exam: Positive: Cranial Nerves 3-12 NL, Normal Speech, Strength at 5/5 X4 ext (preserved strength in upper and lower extremities bilaterally) Psych Exam: Positive: Oriented x 3 Assessment /Plan Problems (1) Diarrhea Status: Acute Response to Treatment: Improving Problem Text: * cdiff colitis * continue Dificid, 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 (2) Ulcerative colitis Status: Acute Response to Treatment: Improving Problem Text: * continue prednisone. will reduce dose of prednisone to 30 daily * continue sulfasalazine * follows up with dr Kiran (3) Pulmonary emboli Status: Chronic Problem Text: pt on lovenox and coumadin and monitor for bleeding over the next few days INR still not therapeutic. (4) Thrombocytosis Status: Resolved (5) Diastolic congestive heart failure Status: Chronic Problem Text: * will switch to oral lasix (6) Iron deficiency anemia Status: Chronic Problem Text: * continue oral iron Plan/VTE VTE Prophylaxis Ordered?: Yes (TEDs and sequentials) Plan IVF: Initiate (IVF at 60 miles per hour) Diet: Make NPO (patient may have ice chips) Activity: Bedrest (with commode privileges) Therapy: PT (secondary to weakness, dizziness, lightheadedness) Diagnostics: Check Labs, Repeat Labs in AM, Obtain Cultures, CT (abdomen and pelvis with by mouth contrast) Anticipated Discharge: Home VS, I&O, 24H, [facility] Vital Signs/I&O Vital Signs Date Time Temp Pulse Resp B/P Pulse Ox O2 Delivery O2 Flow Rate FiO2 08/13/16 06:00 72 134/76 64 116/60 70 112/64 08/13/16 06:00 97.4 16 99 Room Air I&O- Last 24 Hours up to 6 AM 08/13/16 06:00 Intake Total 2040 ml Output Total 2200 ml Balance -160 ml Laboratory Data 24H LABS Laboratory Tests 2 08/13/16 06:18: Prothromb Time International Ratio 1.09, Prothrombin Time 14.2 CBC/BMP Laboratory Tests 08/13/16 06:18 Red Blood Count 3.51 L, Mean Corpuscular Volume 89.0, Mean Corpuscular Hemoglobin 27.4, Mean Corpuscular Hemoglobin Concent 30.8 L, Red Cell Distribution Width 13.6 Microbiology Microbiology 08/04/16 Blood Culture - Final, Complete NO GROWTH AFTER 5 DAYS 08/04/16 Gastrointestinal Tract Panel (PCR) - Final, Complete Clostridium Difficile A/B 08/05/16 Urine Culture - Final, Complete VAN BAIG MD Aug 13, 2016 11:22
[2016-08-13 14:00] VITALS: BP_SYST 108; BP_SYST 110; BP_SYST 98; BP_DIAS 52; BP_DIAS 60; BP_DIAS 64
[2016-08-13] MEDS: WARFARIN SOD 7.5 MG TAB PO SCH (16:47)
[2016-08-13] MEDS: predniSONE 10 MG TAB PO SCH (20:00)
[2016-08-13 22:00] VITALS: BP_SYST 100; BP_SYST 102; BP_SYST 98; BP_DIAS 60; BP_DIAS 62
[2016-08-14 06:00] VITALS: BP_SYST 100; BP_SYST 110; BP_SYST 116; BP_DIAS 62; BP_DIAS 74
[2016-08-14 06:23] LABS: INR 1.37
[2016-08-14] MEDS: predniSONE 20 MG TAB PO SCH (08:52)
[2016-08-14] MEDS: MULTIVITAMINS/MINERALS THERAP 1 TAB PO SCH (08:52)
[2016-08-14] MEDS: ENOXAPARIN 60 MG/0.6 ML SYR (J1650) SC SCH ×2 (08:52→20:00)
[2016-08-14] MEDS: sulfaSALAzine 500 MG TABEC PO SCH ×3 (08:52→20:00)
[2016-08-14] MEDS: LACTOBACILLUS ACIDOPHILUS CAP (BACID) PO SCH ×2 (08:52→20:00)
[2016-08-14] MEDS: FIDAXOMICIN 200 MG TAB (DIFICID) PO SCH ×2 (08:52→20:00)
[2016-08-14] MEDS: FUROSEMIDE 40 MG TAB PO SCH ×2 (08:53→16:18)
[2016-08-14] MEDS: FLUoxetine 20 MG CAP PO SCH (08:53)
[2016-08-14] MEDS: FERROUS SULFATE 325MG TAB PO SCH ×2 (08:53→20:00)
[2016-08-14] MEDS: POTASSIUM CHLORIDE 10 MEQ SR TABLET PO SCH (08:53)
--- NOTE | 2016-08-14 09:20 | IPNPDOC ---
Subjective Date Seen The patient was seen on 08/14/16. Subjective Chief Complaint/HPI The patient is a 70-year-old female admitted with a reason for visit of Ulcerative Colitis. Events since last encounter no complaints today , crampy abdominal pain better, semi soft bowels about 6 times mostly at night. Objective Physical Examination General Exam: Positive: Alert, Cooperative, Other (appears older than stated age) Eye Exam: Positive: Conjunctiva & lids normal, EOMI, PERRLA, Negative: Sclera icteric ENT Exam: Positive: Atraumatic, Mucous membr. moist/pink, Nares Patent, Other ENT (edentulous (has both upper and lower dentures, currently not present)), Pharynx Normal, Pinna Normal, Tongue Midline Neck Exam: Positive: Other (trachea midline), Supple, Negative: JVD, Lymphadenopathy, thyromegaly Chest Exam: Positive: Clear to auscultation, Normal air movement Heart Exam: Positive: Normal S1, Normal S2, Rate Normal, Regular Rhythm, Negative: Murmurs, Rubs Abdomen Exam: Positive: Normal bowel sounds, Other (midline healed abdominal incision with associated healed laparoscopic incisions; tympanic evaluation of abdomen revealed no acute abnormalities; excessive abdominal skin noted), Soft, Negative: Hepatospenomegaly, Hernia (no abdominal hernia noted on physical exam), Mass Extremity Exam: Positive: Edema (nonpitting edema noted more so on the left lower extremity done the right), Normal pulses (upper and lower extremities symmetrical bilaterally), Negative: Clubbing, Cyanosis Skin Exam: Positive: Other skin issue (dry skin noted on upper extremities) Neuro Exam: Positive: Cranial Nerves 3-12 NL, Normal Speech, Strength at 5/5 X4 ext (preserved strength in upper and lower extremities bilaterally) Psych Exam: Positive: Oriented x 3 Assessment /Plan Problems (1) Diarrhea Status: Acute Response to Treatment: Improving Problem Text: * cdiff colitis * continue Dificid, 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 (2) Ulcerative colitis Status: Acute Response to Treatment: Improving Problem Text: * continue prednisone. will reduce dose of prednisone to 30 daily * continue sulfasalazine * follows up with dr Kiran (3) Pulmonary emboli Status: Chronic Problem Text: pt on lovenox and coumadin and monitor for bleeding over the next few days INR still not therapeutic. (4) Thrombocytosis Status: Resolved (5) Diastolic congestive heart failure Status: Chronic Problem Text: * will switch to oral lasix (6) Iron deficiency anemia Status: Chronic Problem Text: * continue oral iron Plan/VTE VTE Prophylaxis Ordered?: Yes (TEDs and sequentials) Plan IVF: Initiate (IVF at 60 miles per hour) Diet: Make NPO (patient may have ice chips) Activity: Bedrest (with commode privileges) Therapy: PT (secondary to weakness, dizziness, lightheadedness) Diagnostics: Check Labs, Repeat Labs in AM, Obtain Cultures, CT (abdomen and pelvis with by mouth contrast) Anticipated Discharge: Home VS, I&O, 24H, [facility] Vital Signs/I&O Vital Signs Date Time Temp Pulse Resp B/P Pulse Ox O2 Delivery O2 Flow Rate FiO2 08/14/16 06:00 67 116/74 67 110/62 73 100/62 08/13/16 06:00 97.4 16 99 Room Air I&O- Last 24 Hours up to 6 AM 08/14/16 06:00 Intake Total 1900 ml Output Total 1810 ml Balance 90 ml Laboratory Data 24H LABS Laboratory Tests 2 08/14/16 05:59: Prothromb Time International Ratio 1.37, Prothrombin Time 17.0H Microbiology Microbiology 08/04/16 Blood Culture - Final, Complete NO GROWTH AFTER 5 DAYS 08/04/16 Gastrointestinal Tract Panel (PCR) - Final, Complete Clostridium Difficile A/B 08/05/16 Urine Culture - Final, Complete VAN BAIG MD Aug 14, 2016 09:20
[2016-08-14] MEDS: WARFARIN SOD 10 MG TAB PO SCH (16:18)
[2016-08-14] MEDS: predniSONE 10 MG TAB PO SCH (20:00)
[2016-08-14 22:00] VITALS: BP 101/53
[2016-08-15 05:58] LABS: INR 1.6
[2016-08-15 06:00] VITALS: BP_SYST 127; BP_SYST 138; BP_SYST 141; BP_DIAS 38; BP_DIAS 58; BP_DIAS 66
--- NOTE | 2016-08-15 06:47 | IPNPDOC ---
Subjective Date Seen The patient was seen on 08/15/16. Subjective Chief Complaint/HPI The patient is a 70-year-old female admitted with a reason for visit of Ulcerative Colitis. Events since last encounter no new complaints, still with about 6 times diarrhea / day , no fever or chills , intermittent abdominal cramps still present. has some streaks of blood in stool, hh stable, INR still not therapeutic. Objective Physical Examination General Exam: Positive: Alert, Cooperative, Other (appears older than stated age) Eye Exam: Positive: Conjunctiva & lids normal, EOMI, PERRLA, Negative: Sclera icteric ENT Exam: Positive: Atraumatic, Mucous membr. moist/pink, Nares Patent, Other ENT (edentulous (has both upper and lower dentures, currently not present)), Pharynx Normal, Pinna Normal, Tongue Midline Neck Exam: Positive: Other (trachea midline), Supple, Negative: JVD, Lymphadenopathy, thyromegaly Chest Exam: Positive: Clear to auscultation, Normal air movement Heart Exam: Positive: Normal S1, Normal S2, Rate Normal, Regular Rhythm, Negative: Murmurs, Rubs Abdomen Exam: Positive: Normal bowel sounds, Other (midline healed abdominal incision with associated healed laparoscopic incisions; tympanic evaluation of abdomen revealed no acute abnormalities; excessive abdominal skin noted), Soft, Negative: Hepatospenomegaly, Hernia (no abdominal hernia noted on physical exam), Mass Extremity Exam: Positive: Edema (nonpitting edema noted more so on the left lower extremity done the right), Normal pulses (upper and lower extremities symmetrical bilaterally), Negative: Clubbing, Cyanosis Skin Exam: Positive: Other skin issue (dry skin noted on upper extremities) Neuro Exam: Positive: Cranial Nerves 3-12 NL, Normal Speech, Strength at 5/5 X4 ext (preserved strength in upper and lower extremities bilaterally) Psych Exam: Positive: Oriented x 3 Assessment /Plan Problems (1) Diarrhea Status: Acute Response to Treatment: Improving Problem Text: * cdiff colitis * continue Dificid, 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 (2) Ulcerative colitis Status: Acute Response to Treatment: Improving Problem Text: * continue prednisone. will reduce dose of prednisone to 30 daily * continue sulfasalazine * follows up with dr Kiran (3) Pulmonary emboli Status: Chronic Problem Text: pt on lovenox and coumadin and monitor for bleeding over the next few days INR still not therapeutic. (4) Thrombocytosis Status: Resolved (5) Diastolic congestive heart failure Status: Chronic Problem Text: * will switch to oral lasix (6) Iron deficiency anemia Status: Chronic Problem Text: * continue oral iron Plan/VTE VTE Prophylaxis Ordered?: Yes (TEDs and sequentials) Plan IVF: Initiate (IVF at 60 miles per hour) Diet: Make NPO (patient may have ice chips) Activity: Bedrest (with commode privileges) Therapy: PT (secondary to weakness, dizziness, lightheadedness) Diagnostics: Check Labs, Repeat Labs in AM, Obtain Cultures, CT (abdomen and pelvis with by mouth contrast) Anticipated Discharge: Home VS, I&O, 24H, [facility] Vital Signs/I&O Vital Signs Date Time Temp Pulse Resp B/P Pulse Ox O2 Delivery O2 Flow Rate FiO2 08/14/16 22:00 98.9 83 20 101/53 97 08/13/16 06:00 Room Air I&O- Last 24 Hours up to 6 AM 08/15/16 05:59 Intake Total 2570 ml Output Total 1925 ml Balance 645 ml Laboratory Data 24H LABS Laboratory Tests 2 08/15/16 05:39: Prothromb Time International Ratio 1.60, Prothrombin Time 19.1H Microbiology Microbiology 08/05/16 Urine Culture - Final, Complete VAN BAIG MD Aug 15, 2016 06:47
[2016-08-15] MEDS: FIDAXOMICIN 200 MG TAB (DIFICID) PO SCH ×2 (08:28→20:32)
[2016-08-15] MEDS: FLUoxetine 20 MG CAP PO SCH (08:28)
[2016-08-15] MEDS: LACTOBACILLUS ACIDOPHILUS CAP (BACID) PO SCH ×2 (08:28→20:32)
[2016-08-15] MEDS: sulfaSALAzine 500 MG TABEC PO SCH ×3 (08:28→20:32)
[2016-08-15] MEDS: MULTIVITAMINS/MINERALS THERAP 1 TAB PO SCH (08:28)
[2016-08-15] MEDS: FUROSEMIDE 40 MG TAB PO SCH ×2 (08:28→16:40)
[2016-08-15] MEDS: FERROUS SULFATE 325MG TAB PO SCH ×2 (08:28→20:32)
[2016-08-15] MEDS: predniSONE 20 MG TAB PO SCH (08:28)
[2016-08-15] MEDS: POTASSIUM CHLORIDE 10 MEQ SR TABLET PO SCH (08:28)
[2016-08-15] MEDS: ENOXAPARIN 60 MG/0.6 ML SYR (J1650) SC SCH ×2 (08:29→20:32)
[2016-08-15 14:00] VITALS: BP 128/78
[2016-08-15] MEDS: WARFARIN SOD 10 MG TAB PO SCH (16:40)
[2016-08-15] MEDS: predniSONE 10 MG TAB PO SCH (20:32)
[2016-08-15 22:00] VITALS: BP 109/58
[2016-08-16 06:00] VITALS: BP_SYST 117; BP_SYST 120; BP_SYST 127; BP_DIAS 58; BP_DIAS 60; BP_DIAS 65
[2016-08-16 06:06] LABS: MEAN CORPUSCULAR HEMOGLOBIN 27.4 pg (27.0-33.0); MEAN CORPUSCULAR HGB CONC 31.1 g/dl (32.0-36.5); MEAN CORPUSCULAR VOLUME 88.1 fl (80.0-96.0); RED CELL DISTRIBUTION WIDTH 14.2 % (11.5-14.5); WHITE BLOOD COUNT 12.1 K/mm3 (4.0-10.0)
[2016-08-16 06:22] LABS: INR 1.65
[2016-08-16 06:35] LABS: ANION GAP 7 MEQ/L (8-16); BLOOD UREA NITROGEN 19 MG/DL (7-18); CALCIUM LEVEL 8.8 MG/DL (8.8-10.2); CARBON DIOXIDE LEVEL 28 MEQ/L (21-32); CHLORIDE LEVEL 109 MEQ/L (98-107); CREATININE FOR GFR 0.64 MG/DL (0.55-1.02); GLOMERULAR FILTRATION RATE > 60.0 (>45); GLUCOSE, FASTING 113 MG/DL (80-110); POTASSIUM SERUM 4.1 MEQ/L (3.5-5.1); SODIUM LEVEL 144 MEQ/L (136-145); T UPTAKE 40 % (30-39); THYROXINE (T4) 11.3 UG/DL (4.5-12.0)
[2016-08-16] MEDS: FERROUS SULFATE 325MG TAB PO SCH ×2 (09:30→20:21)
[2016-08-16] MEDS: MULTIVITAMINS/MINERALS THERAP 1 TAB PO SCH (09:31)
[2016-08-16] MEDS: LACTOBACILLUS ACIDOPHILUS CAP (BACID) PO SCH ×2 (09:31→20:21)
[2016-08-16] MEDS: ENOXAPARIN 60 MG/0.6 ML SYR (J1650) SC SCH ×2 (09:31→20:24)
[2016-08-16] MEDS: FUROSEMIDE 40 MG TAB PO SCH ×2 (09:31→16:26)
[2016-08-16] MEDS: POTASSIUM CHLORIDE 10 MEQ SR TABLET PO SCH (09:31)
[2016-08-16] MEDS: predniSONE 20 MG TAB PO SCH (09:31)
[2016-08-16] MEDS: sulfaSALAzine 500 MG TABEC PO SCH ×3 (09:31→20:21)
[2016-08-16] MEDS: FIDAXOMICIN 200 MG TAB (DIFICID) PO SCH (09:31)
[2016-08-16] MEDS: FLUoxetine 20 MG CAP PO SCH (09:31)
--- NOTE | 2016-08-16 10:28 | IPNPDOC ---
Subjective Date Seen The patient was seen on 08/16/16. Subjective Chief Complaint/HPI The patient is a 70-year-old female admitted with a reason for visit of Ulcerative Colitis. 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 patient is unable to self administer lovenox so cannot be discharged yet. Objective Physical Examination General Exam: Positive: Alert, Cooperative, Other (appears older than stated age) Eye Exam: Positive: Conjunctiva & lids normal, EOMI, PERRLA, Negative: Sclera icteric ENT Exam: Positive: Atraumatic, Mucous membr. moist/pink, Nares Patent, Other ENT (edentulous (has both upper and lower dentures, currently not present)), Pharynx Normal, Pinna Normal, Tongue Midline Neck Exam: Positive: Other (trachea midline), Supple, Negative: JVD, Lymphadenopathy, thyromegaly Chest Exam: Positive: Clear to auscultation, Normal air movement Heart Exam: Positive: Normal S1, Normal S2, Rate Normal, Regular Rhythm, Negative: Murmurs, Rubs Abdomen Exam: Positive: Normal bowel sounds, Other (midline healed abdominal incision with associated healed laparoscopic incisions; tympanic evaluation of abdomen revealed no acute abnormalities; excessive abdominal skin noted), Soft, Negative: Hepatospenomegaly, Hernia (no abdominal hernia noted on physical exam), Mass Extremity Exam: Positive: Edema (nonpitting edema noted more so on the left lower extremity done the right), Normal pulses (upper and lower extremities symmetrical bilaterally), Negative: Clubbing, Cyanosis Skin Exam: Positive: Other skin issue (dry skin noted on upper extremities) Neuro Exam: Positive: Cranial Nerves 3-12 NL, Normal Speech, Strength at 5/5 X4 ext (preserved strength in upper and lower extremities bilaterally) Psych Exam: Positive: Oriented x 3 Assessment /Plan Problems (1) Diarrhea Status: Acute Response to Treatment: Improving Problem Text: * cdiff colitis * continue Dificid, 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 (2) Ulcerative colitis Status: Acute Response to Treatment: Improving Problem Text: * continue prednisone. will reduce dose of prednisone to 20 daily * continue sulfasalazine * follows up with dr Kiran (3) Pulmonary emboli Status: Chronic Problem Text: pt on lovenox and coumadin and monitor for bleeding over the next few days INR still not therapeutic. (4) Thrombocytosis Status: Resolved (5) Diastolic congestive heart failure Status: Chronic Problem Text: * will switch to oral lasix (6) Iron deficiency anemia Status: Chronic Problem Text: * continue oral iron Plan/VTE VTE Prophylaxis Ordered?: Yes (TEDs and sequentials) Plan IVF: Initiate (IVF at 60 miles per hour) Diet: Make NPO (patient may have ice chips) Activity: Bedrest (with commode privileges) Therapy: PT (secondary to weakness, dizziness, lightheadedness) Diagnostics: Check Labs, Repeat Labs in AM, Obtain Cultures, CT (abdomen and pelvis with by mouth contrast) Anticipated Discharge: Home VS, I&O, 24H, [facility] Vital Signs/I&O Vital Signs Date Time Temp Pulse Resp B/P Pulse Ox O2 Delivery O2 Flow Rate FiO2 08/16/16 09:00 Room Air 08/16/16 06:00 71 127/65 73 120/60 80 117/58 08/16/16 06:00 98.7 20 96 I&O- Last 24 Hours up to 6 AM 08/16/16 05:59 Intake Total 1940 ml Output Total 3250 ml Balance -1310 ml Laboratory Data 24H LABS Laboratory Tests 2 08/16/16 05:43: Anion Gap 7L, Blood Urea Nitrogen 19H, Creatinine 0.64, Sodium Level 144, Potassium Level 4.1, Chloride Level 109H, Carbon Dioxide Level 28, Calcium Level 8.8, Free Thyroxine Index 4.5, Glomerular Filtration Rate > 60.0, Prothromb Time International Ratio 1.65, Prothrombin Time 19.6H, Thyroid Stimulating Hormone (TSH) < 0.005L, Thyroxine (T4) 11.3, Triiodothyronine (T3) Uptake 40H CBC/BMP Laboratory Tests 08/16/16 05:43 Calcium Level 8.8, Red Blood Count 3.42 L, Mean Corpuscular Volume 88.1, Mean Corpuscular Hemoglobin 27.4, Mean Corpuscular Hemoglobin Concent 31.1 L, Red Cell Distribution Width 14.2 VAN BAIG MD Aug 16, 2016 10:28
[2016-08-16 14:00] VITALS: BP 110/62
[2016-08-16] MEDS ORDERED: WARFARIN SOD 10 MG TAB PO SCH (17:00)
[2016-08-16] MEDS ORDERED: WARFARIN SOD 2.5 MG TAB PO SCH (17:00)
[2016-08-16 22:00] VITALS: BP 115/65
[2016-08-17 06:00] VITALS: BP 108/73
[2016-08-17 06:30] LABS: INR 2.37
[2016-08-17] MEDS: FLUoxetine 20 MG CAP PO SCH (08:57)
[2016-08-17] MEDS: FUROSEMIDE 40 MG TAB PO SCH ×2 (08:57→17:08)
[2016-08-17] MEDS: FERROUS SULFATE 325MG TAB PO SCH ×2 (08:57→20:21)
[2016-08-17] MEDS: LACTOBACILLUS ACIDOPHILUS CAP (BACID) PO SCH ×2 (08:57→20:21)
[2016-08-17] MEDS: predniSONE 20 MG TAB PO SCH (08:57)
[2016-08-17] MEDS: MULTIVITAMINS/MINERALS THERAP 1 TAB PO SCH (08:57)
[2016-08-17] MEDS: POTASSIUM CHLORIDE 10 MEQ SR TABLET PO SCH (08:57)
[2016-08-17] MEDS: sulfaSALAzine 500 MG TABEC PO SCH ×3 (08:57→20:21)
[2016-08-17] MEDS: ENOXAPARIN 60 MG/0.6 ML SYR (J1650) SC SCH (08:58)
--- NOTE | 2016-08-17 11:31 | IPNPDOC ---
Subjective Date Seen The patient was seen on 08/17/16. Subjective Chief Complaint/HPI The patient is a 70-year-old female admitted with a reason for visit of Ulcerative Colitis. Objective Physical Examination General Exam: Positive: Alert, Cooperative, Other (appears older than stated age) Eye Exam: Positive: Conjunctiva & lids normal, EOMI, PERRLA, Negative: Sclera icteric ENT Exam: Positive: Atraumatic, Mucous membr. moist/pink, Nares Patent, Other ENT (edentulous (has both upper and lower dentures, currently not present)), Pharynx Normal, Pinna Normal, Tongue Midline Neck Exam: Positive: Other (trachea midline), Supple, Negative: JVD, Lymphadenopathy, thyromegaly Chest Exam: Positive: Clear to auscultation, Normal air movement Heart Exam: Positive: Normal S1, Normal S2, Rate Normal, Regular Rhythm, Negative: Murmurs, Rubs Abdomen Exam: Positive: Normal bowel sounds, Other (midline healed abdominal incision with associated healed laparoscopic incisions; tympanic evaluation of abdomen revealed no acute abnormalities; excessive abdominal skin noted), Soft, Negative: Hepatospenomegaly, Hernia (no abdominal hernia noted on physical exam), Mass Extremity Exam: Positive: Edema (nonpitting edema noted more so on the left lower extremity done the right), Normal pulses (upper and lower extremities symmetrical bilaterally), Negative: Clubbing, Cyanosis Skin Exam: Positive: Other skin issue (dry skin noted on upper extremities) Neuro Exam: Positive: Cranial Nerves 3-12 NL, Normal Speech, Strength at 5/5 X4 ext (preserved strength in upper and lower extremities bilaterally) Psych Exam: Positive: Oriented x 3 Assessment /Plan Problems (1) Diarrhea Status: Acute Response to Treatment: Improving Problem Text: * cdiff colitis * continue Dificid, 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 will reduce dose of prednisone to 20 daily * continue sulfasalazine * follows up with dr Kiran (3) Pulmonary emboli Status: Chronic Problem Text: * pt on coumadin * INR is now therapeutic * Will change to 10 (4) Thrombocytosis Status: Resolved (5) Diastolic congestive heart failure Status: Chronic Problem Text: * will switch to oral lasix (6) Iron deficiency anemia Status: Chronic Problem Text: * continue oral iron Plan/VTE VTE Prophylaxis Ordered?: Yes (TEDs and sequentials) Plan IVF: Initiate (IVF at 60 miles per hour) Diet: Make NPO (patient may have ice chips) Activity: Bedrest (with commode privileges) Therapy: PT (secondary to weakness, dizziness, lightheadedness) Diagnostics: Check Labs, Repeat Labs in AM, Obtain Cultures, CT (abdomen and pelvis with by mouth contrast) Anticipated Discharge: Home VS, I&O, 24H, [facility] Vital Signs/I&O Vital Signs Date Time Temp Pulse Resp B/P Pulse Ox O2 Delivery O2 Flow Rate FiO2 08/17/16 09:00 Room Air 08/17/16 06:00 98.3 91 20 108/73 94 I&O- Last 24 Hours up to 6 AM 08/17/16 06:00 Intake Total 2640 ml Output Total 2700 ml Balance -60 ml Laboratory Data 24H LABS Laboratory Tests 2 08/17/16 06:05: Prothromb Time International Ratio 2.37, Prothrombin Time 26.0H NIMA NULL DO Aug 17, 2016 11:31
[2016-08-17 14:00] VITALS: BP 130/58
[2016-08-17] MEDS ORDERED: WARFARIN SOD 10 MG TAB PO SCH (17:00)
[2016-08-17 22:00] VITALS: BP 138/68
[2016-08-18 06:00] VITALS: BP 142/64
[2016-08-18 07:10] LABS: INR 2.49
[2016-08-18 07:12] LABS: MEAN CORPUSCULAR HEMOGLOBIN 27.8 pg (27.0-33.0); MEAN CORPUSCULAR HGB CONC 31.4 g/dl (32.0-36.5); MEAN CORPUSCULAR VOLUME 88.6 fl (80.0-96.0); RED CELL DISTRIBUTION WIDTH 14.8 % (11.5-14.5); WHITE BLOOD COUNT 10.2 K/mm3 (4.0-10.0)
[2016-08-18 07:24] LABS: ALBUMIN 2.1 GM/DL (3.2-5.2); ALBUMIN/GLOBULIN RATIO 0.78 (1.00-1.93); ALKALINE PHOSPHATASE 76 U/L (45-117); ALT/SGPT 74 U/L (12-78); ANION GAP 3 MEQ/L (8-16); AST/SGOT 24 U/L (15-37); BILIRUBIN,TOTAL 0.2 MG/DL (0.2-1.0); BLOOD UREA NITROGEN 19 MG/DL (7-18); CALCIUM LEVEL 8.6 MG/DL (8.8-10.2); CARBON DIOXIDE LEVEL 31 MEQ/L (21-32); CHLORIDE LEVEL 109 MEQ/L (98-107); CREATININE FOR GFR 0.66 MG/DL (0.55-1.02); GLOMERULAR FILTRATION RATE > 60.0 (>45); GLUCOSE, FASTING 86 MG/DL (80-110); POTASSIUM SERUM 3.8 MEQ/L (3.5-5.1); SODIUM LEVEL 143 MEQ/L (136-145); TOTAL PROTEIN 4.8 GM/DL (6.4-8.2)
[2016-08-18] MEDS: LACTOBACILLUS ACIDOPHILUS CAP (BACID) PO SCH ×2 (09:20→20:01)
[2016-08-18] MEDS: FERROUS SULFATE 325MG TAB PO SCH ×2 (09:20→20:01)
[2016-08-18] MEDS: FUROSEMIDE 40 MG TAB PO SCH ×2 (09:20→15:49)
[2016-08-18] MEDS: sulfaSALAzine 500 MG TABEC PO SCH ×3 (09:20→20:01)
[2016-08-18] MEDS: FLUoxetine 20 MG CAP PO SCH (09:20)
[2016-08-18] MEDS: POTASSIUM CHLORIDE 10 MEQ SR TABLET PO SCH (09:21)
[2016-08-18] MEDS: predniSONE 20 MG TAB PO SCH (09:21)
[2016-08-18] MEDS: MULTIVITAMINS/MINERALS THERAP 1 TAB PO SCH (09:21)
[2016-08-18 14:00] VITALS: BP 110/58
--- NOTE | 2016-08-18 15:14 | IPNPDOC ---
Subjective Date Seen The patient was seen on 08/18/16. Subjective Chief Complaint/HPI The patient is a 70-year-old female admitted with a reason for visit of Ulcerative Colitis. Events since last encounter pt seen and examined, no other events overnight, no diarrhea Constitutional: Denies: Chills, Fever, Night Sweats Cardiovascular: Denies: Chest Pain, Lt Headedness, Orthopnea, Palpitations, Paroxysmal Noc. Dyspnea Objective Physical Examination General Exam: Positive: Alert, Cooperative, Other (appears older than stated age) Eye Exam: Positive: Conjunctiva & lids normal, EOMI, PERRLA, Negative: Sclera icteric ENT Exam: Positive: Atraumatic, Mucous membr. moist/pink, Nares Patent, Other ENT (edentulous (has both upper and lower dentures, currently not present)), Pharynx Normal, Pinna Normal, Tongue Midline Neck Exam: Positive: Other (trachea midline), Supple, Negative: JVD, Lymphadenopathy, thyromegaly Chest Exam: Positive: Clear to auscultation, Normal air movement Heart Exam: Positive: Normal S1, Normal S2, Rate Normal, Regular Rhythm, Negative: Murmurs, Rubs Abdomen Exam: Positive: Normal bowel sounds, Other (midline healed abdominal incision with associated healed laparoscopic incisions; tympanic evaluation of abdomen revealed no acute abnormalities; excessive abdominal skin noted), Soft, Tenderness (apparently tender to palpation with both light and deep palpation based on patient's facial grimace), Negative: Hepatospenomegaly, Hernia (no abdominal hernia noted on physical exam), Mass Extremity Exam: Positive: Edema (nonpitting edema noted more so on the left lower extremity done the right), Normal pulses (upper and lower extremities symmetrical bilaterally), Tenderness (tenderness with palpation to the lower extremities), Negative: Clubbing, Cyanosis Skin Exam: Positive: Other skin issue (dry skin noted on upper extremities) Neuro Exam: Positive: Cranial Nerves 3-12 NL, Normal Speech, Strength at 5/5 X4 ext (preserved strength in upper and lower extremities bilaterally) Psych Exam: Positive: Oriented x 3 Assessment /Plan Problems (1) Diarrhea Status: Acute Response to Treatment: Improving Problem Text: * cdiff colitis * 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 will reduce dose of prednisone to 20 daily * continue sulfasalazine * follows up with dr Kiran (3) Pulmonary emboli Status: Chronic Problem Text: * pt on coumadin * INR is now therapeutic * Will change to 4 * plan to discharge in am (4) Thrombocytosis Status: Resolved (5) Diastolic congestive heart failure Status: Chronic Problem Text: * continue oral lasix (6) Iron deficiency anemia Status: Chronic Problem Text: * continue oral iron Plan/VTE VTE Prophylaxis Ordered?: Yes (TEDs and sequentials) Plan IVF: Initiate (IVF at 60 miles per hour) Diet: Make NPO (patient may have ice chips) Activity: Bedrest (with commode privileges) Therapy: PT (secondary to weakness, dizziness, lightheadedness) Diagnostics: Check Labs, Repeat Labs in AM, Obtain Cultures, CT (abdomen and pelvis with by mouth contrast) Anticipated Discharge: Home VS, I&O, 24H, Fishbone Vital Signs/I&O Vital Signs Date Time Temp Pulse Resp B/P Pulse Ox O2 Delivery O2 Flow Rate FiO2 08/18/16 08:45 Room Air 08/18/16 06:00 98.7 86 16 142/64 95 I&O- Last 24 Hours up to 6 AM 08/18/16 06:00 Intake Total 2160 ml Output Total 1900 ml Balance 260 ml Laboratory Data 24H LABS Laboratory Tests 2 08/18/16 06:42: Blood Urea Nitrogen 19H, Creatinine 0.66, Sodium Level 143, Potassium Level 3.8 , Chloride Level 109H, Carbon Dioxide Level 31, Calcium Level 8.6L, Aspartate Amino Transf (AST/SGOT) 24, Alanine Aminotransferase (ALT/SGPT) 74, Alkaline Phosphatase 76, Total Bilirubin 0.2, Total Protein 4.8L, Albumin 2.1L, Albumin/ Globulin Ratio 0.78L, Anion Gap 3L, Glomerular Filtration Rate > 60.0, Prothromb Time International Ratio 2.49, Prothrombin Time 27.0H CBC/BMP Laboratory Tests 08/18/16 06:42 Calcium Level 8.6 L, Aspartate Amino Transf (AST/SGOT) 24, Alanine Aminotransferase (ALT/SGPT) 74, Alkaline Phosphatase 76, Total Bilirubin 0.2, Total Protein 4.8 L, Albumin 2.1 L, Red Blood Count 3.21 L, Mean Corpuscular Volume 88.6, Mean Corpuscular Hemoglobin 27.8, Mean Corpuscular Hemoglobin Concent 31.4 L, Red Cell Distribution Width 14.8 H NIMA NULL DO Aug 18, 2016 15:14
[2016-08-18] MEDS: ACETAMINOPHEN TAB 650MG DOSE (2X325MG) PO PRN (15:49)
[2016-08-18] MEDS ORDERED: WARFARIN SOD 4 MG TAB PO SCH (17:00)
[2016-08-18 22:00] VITALS: BP 106/56
[2016-08-19 06:00] VITALS: BP 103/53
[2016-08-19 07:09] LABS: MEAN CORPUSCULAR HEMOGLOBIN 27.8 pg (27.0-33.0); MEAN CORPUSCULAR HGB CONC 30.8 g/dl (32.0-36.5); MEAN CORPUSCULAR VOLUME 90.3 fl (80.0-96.0); WHITE BLOOD COUNT 12.9 K/mm3 (4.0-10.0)
[2016-08-19 07:18] LABS: INR 1.88
[2016-08-19 07:30] LABS: ALBUMIN 2.2 GM/DL (3.2-5.2); ALBUMIN/GLOBULIN RATIO 0.69 (1.00-1.93); ALKALINE PHOSPHATASE 85 U/L (45-117); ALT/SGPT 79 U/L (12-78); ANION GAP 6 MEQ/L (8-16); AST/SGOT 21 U/L (15-37); BILIRUBIN,TOTAL 0.3 MG/DL (0.2-1.0); BLOOD UREA NITROGEN 20 MG/DL (7-18); CALCIUM LEVEL 8.9 MG/DL (8.8-10.2); CARBON DIOXIDE LEVEL 29 MEQ/L (21-32); CHLORIDE LEVEL 111 MEQ/L (98-107); CREATININE FOR GFR 0.64 MG/DL (0.55-1.02); GLOMERULAR FILTRATION RATE > 60.0 (>45); GLUCOSE, FASTING 86 MG/DL (80-110); SODIUM LEVEL 146 MEQ/L (136-145); TOTAL PROTEIN 5.4 GM/DL (6.4-8.2)
[2016-08-19] MEDS: FERROUS SULFATE 325MG TAB PO SCH (08:32)
[2016-08-19] MEDS: predniSONE 20 MG TAB PO SCH (08:32)
[2016-08-19] MEDS: MULTIVITAMINS/MINERALS THERAP 1 TAB PO SCH (08:32)
[2016-08-19] MEDS: LACTOBACILLUS ACIDOPHILUS CAP (BACID) PO SCH (08:32)
[2016-08-19] MEDS: POTASSIUM CHLORIDE 10 MEQ SR TABLET PO SCH (08:32)
[2016-08-19] MEDS: sulfaSALAzine 500 MG TABEC PO SCH (08:33)
[2016-08-19] MEDS: FUROSEMIDE 40 MG TAB PO SCH (08:33)
[2016-08-19] MEDS: FLUoxetine 20 MG CAP PO SCH (08:33)
[2016-08-19] MEDS ORDERED: COUM1TAB14 PO (11:31)
[2016-08-19] MEDS ORDERED: COUM1TAB17 PO (11:34)
[2016-08-19] MEDS ORDERED: DELT1TAB PO (11:53)
--- NOTE | 2016-08-19 12:21 | DSES ---
DATE OF ADMISSION: 08/05/2016 DATE OF DISCHARGE: 08/19/2016 PRIMARY CARE PROVIDER: Dr. Long REASON FOR ADMISSION: Diarrhea with bloody stool. FINAL DIAGNOSES: 1. Ulcerative colitis exacerbation. 2. Clostridium (C) difficile colitis. 3. Pulmonary emboli. 4. Thrombocytosis. 5. Diastolic congestive heart failure. 6. Iron-deficiency anemia. HISTORY OF PRESENT ILLNESS: The patient is a 70-year-old female with past medical history significant for C diff colitis, ulcerative colitis, diastolic congestive heart failure, history of bilateral pulmonary emboli diagnosed 04/04/2016, history of iron deficiency anemia as well as anemia secondary to gastrointestinal (GI) bleed, presented to the emergency room complaining of she has been having stomach pain, fevers, nonbloody emesis and diarrhea. The patient was recently diagnosed with C diff and status post stool transplant. She was admitted under hospitalist service. HOSPITAL COURSE: Patient was treated for ulcerative colitis exacerbation. We continued her sulfasalazine as well as started her on IV Solu-Medrol. Patient was also treated with 2 weeks of Dificid and once her lower GI bleed had stopped she was restarted back on her Coumadin. First, she was bridged with Lovenox and Coumadin for a few days until she became therapeutic and then Lovenox was discontinued. However, we continued to have a hard time with her Coumadin dosing requiring as high as 12.5 mg of Coumadin on discharge. However, she was discharged with 5 mg of Coumadin. Once the patient became stable, diarrhea had resolved, she was discharged home. DISCHARGE INSTRUCTIONS: She is to followup with her primary care provider in 1 week. She was given a prescription for INR in the morning. Diet: Coumadin diet. Activity as tolerated. Discharge medications including: - prednisone 20 mg by mouth daily for 14 more days until she sees Dr. Kiran - Coumadin 5 mg by mouth daily - Her iron 325 mg by mouth twice a day was continued - fluoxetine 20 mg by mouth daily - Bacid one tablet by mouth daily - multivitamin one tablet by mouth daily - omeprazole 40 mg by mouth as needed for acid reflux - potassium chloride 10 mEq by mouth daily - sulfasalazine 500 mg before meals and at bedtime - torsemide 10 mg as needed for fluid buildup DISCHARGE CONDITION: Stable.
== END 2016-08-19 13:29 | disposition home health service (06) | DRG 372 ==
LOC: EDBD 18:56 → M ED 20:50 → M ED INP 23:04 → M MSPAV 08-04 00:40 → OBSVTOIN 08-05 12:19
PROVIDERS: ADMIT Internal Medicine; ATTEND Internal Medicine
DX: A04.7 Enterocolitis due to Clostridium difficile (principal); K51.911 Ulcerative colitis, unspecified with rectal bleeding; I50.32 Chronic diastolic (congestive) heart failure; K92.1 Melena; K64.8 Other hemorrhoids; D50.9 Iron deficiency anemia, unspecified; D47.3 Essential (hemorrhagic) thrombocythemia; F32.9 Major depressive disorder, single episode, unspecified; R68.84 Jaw pain; K21.9 Gastro-esophageal reflux disease without esophagitis; Z79.01 Long term (current) use of anticoagulants; Z79.899 Other long term (current) drug therapy; Z86.711 Personal history of pulmonary embolism; Z82.49 Family history of ischemic heart disease and other diseases of the circulatory system; Z83.79 Family history of other diseases of the digestive system; Z87.891 Personal history of nicotine dependence; Z97.2 Presence of dental prosthetic device (complete) (partial)

== ENCOUNTER → 2016-08-20 | Outpatient (REF) | payer MEDICARE, OTHER ==
[~2016-08-20] MED LIST changes: +COUM1TAB14 PO; +COUM1TAB17 PO; +DELT1TAB PO; +DIFI200T PO; +LOVE0.4I2 SC; +WARF-20 PO
[2016-08-20 15:36] LABS: INR 1.38
== END ==
LOC: M SHH 14:20
PROVIDERS: ATTEND Internal Medicine
DX: Z51.81 Encounter for therapeutic drug level monitoring (principal); Z79.01 Long term (current) use of anticoagulants

== ENCOUNTER → 2016-08-23 | Outpatient (REF) | payer MEDICARE, OTHER ==
[2016-08-23 13:22] LABS: INR 1.27
== END ==
LOC: M SHH 12:44
PROVIDERS: ATTEND Internal Medicine

== ENCOUNTER → 2016-09-03 | Outpatient (REF) | payer MEDICARE, OTHER ==
[2016-09-03 12:29] LABS: INR 3.89
== END ==
LOC: M LAB REF 12:02
PROVIDERS: ATTEND Internal Medicine
DX: Z51.81 Encounter for therapeutic drug level monitoring (principal); Z79.01 Long term (current) use of anticoagulants

== ENCOUNTER → 2016-09-10 | Outpatient (REF) | payer MEDICARE, OTHER ==
[2016-09-10 10:46] LABS: INR 10.33
== END ==
LOC: M SHH 09:37
PROVIDERS: ATTEND Nurse Practitioner
DX: Z51.81 Encounter for therapeutic drug level monitoring (principal); Z79.01 Long term (current) use of anticoagulants

== ENCOUNTER → 2016-09-13 | Outpatient (REF) | payer MEDICARE, OTHER ==
[2016-09-13 13:53] LABS: INR 1.33
== END ==
LOC: M SHH 13:18
PROVIDERS: ATTEND Internal Medicine
DX: Z51.81 Encounter for therapeutic drug level monitoring (principal); Z79.01 Long term (current) use of anticoagulants

== ENCOUNTER → 2016-09-20 | Outpatient (REF) | payer MEDICARE, OTHER ==
[2016-09-20 15:15] LABS: INR 2.28
== END ==
LOC: M LAB REF 14:33
PROVIDERS: ATTEND Internal Medicine
DX: Z51.81 Encounter for therapeutic drug level monitoring (principal); Z79.01 Long term (current) use of anticoagulants

== ENCOUNTER 2016-10-11 15:56 | Emergency (ER) | payer MEDICARE, OTHER ==
[~2016-10-11] VITALS: Ht 144.8 cm; Wt 54.4 kg
[2016-10-11] MEDS ORDERED: WARF-20 (16:10)
[2016-10-11] MEDS ORDERED: KLOR1CAP2 (16:10)
[2016-10-11] MEDS ORDERED: METH10TA (16:10)
[2016-10-11] MEDS ORDERED: FLUO20CA9 (16:10)
[2016-10-11] MEDS ORDERED: SULF50TA (16:10)
[2016-10-11] MEDS ORDERED: FERR325T (16:10)
[2016-10-11] MEDS ORDERED: NS 1,000 ML IV ONE (17:45)
[2016-10-11 19:46] LABS: BASO % 0.5 % (0.0-1.0); EOS # 0.1 K/mm3 (0.0-0.50); LARGE UNSTAINED CELL # 0.2 K/mm3 (0.0-0.4); LARGE UNSTAINED CELL % 1.7 % (0.0-4.0); LYMPH # 1.9 K/mm3 (1.5-4.5); LYMPH % 19.4 % (24.0-44.0); MEAN CORPUSCULAR HEMOGLOBIN 26.6 pg (27.0-33.0); MEAN CORPUSCULAR HGB CONC 31.7 g/dl (32.0-36.5); MEAN CORPUSCULAR VOLUME 84.1 fl (80.0-96.0); MONO # 0.6 K/mm3 (0.0-0.8); MONO % 6.4 % (0.0-5.0); NEUTROPHILS # 6.4 K/mm3 (1.8-7.7); PLATELET COUNT, AUTOMATED 558 k/mm3 (150-450); RED CELL DISTRIBUTION WIDTH 15.4 % (11.5-14.5)
[2016-10-11 19:51] LABS: INR 2.88
[2016-10-11 20:15] LABS: ANION GAP 16 MEQ/L (8-16); BLOOD UREA NITROGEN 10 MG/DL (7-18); CARBON DIOXIDE LEVEL 23 MEQ/L (21-32); CHLORIDE LEVEL 97 MEQ/L (98-107); CREATININE FOR GFR 0.91 MG/DL (0.55-1.02); GLOMERULAR FILTRATION RATE > 60.0 (>45); GLUCOSE, FASTING 70 MG/DL (80-110); POTASSIUM SERUM 3.6 MEQ/L (3.5-5.1); SODIUM LEVEL 136 MEQ/L (136-145)
[2016-10-11] MEDS ORDERED: ISOVUE-370 76% 100ML VIAL (Q9967) As Ordered ONE (20:17)
[2016-10-11] MEDS ORDERED: ONDANSETRON 4MG/2ML VIAL (J2405) IV ONE (21:00)
--- NOTE | 2016-10-11 21:00 | REPUSA ---
CT angiogram of the chest Clinical statement: Chest pain and shortness of breath. Technique: Multiple axial CT images were obtained from the thoracic inlet through the upper abdomen a fter a bolus administration of nonionic intravenous contrast. Coronal and sagittal reconstructions we re also obtained. Comparison: 04/04/2016. Findings: The pulmonary arteries are well-opacified with contrast There is significant interval reduc tion of embolism dentistry in the pulmonary since the prior study. However, small intraluminal filli ng defect is seen in the left lower lobe pulmonary artery at this time. The thoracic aorta is unremar kable. Thyroid gland is nodular, with significant asymmetrical enlargement of the left lobe. There is no thoracic lymphadenopathy. There are no pericardial or pleural effusions. The lungs are clear. [place] ited imaging of the upper abdomen is stable. There are several large gallstones seen within a diste nded gallbladder. There are no suspicious osseous lesions. Impression: 1. Embolism demonstrated in the left lower lobe pulmonary artery. This is much smaller than the embol ism described on the prior study however. It is uncertain whether this represents an acute or chronic thrombus. Follow-up is recommended as clinically indicated. 2. No acute infiltrates. 3. Cholelithiasis within a distended gallbladder. No evidence of acute cholecystitis. Ksenia, the floor nurse, was notified of these findings at 8:50 PM on 10/11/2016.
[2016-10-11 21:11] VITALS: BP 130/69
[2016-10-11] MEDS ORDERED: ZOFR4TAB3 PO (21:40)
--- NOTE | 2016-10-11 21:41 | ECGEPIP ---
Stationary ECG Study 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
== END 2016-10-11 22:02 | disposition home or self-care (01) ==
LOC: M ED 17:21
DX: E05.00 Thyrotoxicosis with diffuse goiter without thyrotoxic crisis or storm (principal); E16.2 Hypoglycemia, unspecified; I26.99 Other pulmonary embolism without acute cor pulmonale; Z79.01 Long term (current) use of anticoagulants; Z87.891 Personal history of nicotine dependence; Z79.899 Other long term (current) drug therapy
CPT/HCPCS: 71275; 80048; 82550; 82553; 84443; 84484; 85025; 85610; 93005; 96361; 96374; 99284; J2405; Q9967

== ENCOUNTER → 2016-11-05 | Outpatient (REF) | payer MEDICARE, OTHER ==
[~2016-11-05] MED LIST changes: +FERR325T; +FLUO20CA9; +KLOR1CAP2; +METH10TA; +SULF50TA; +WARF-20; +ZOFR4TAB3 PO
[2016-11-05 19:08] LABS: FREE T4 0.36 NG/DL (0.76-1.46)
== END ==
LOC: M LABDRAW1 16:05
PROVIDERS: ATTEND Internal Medicine Endocrinology, Diabetes & Metabolism
DX: E05.00 Thyrotoxicosis with diffuse goiter without thyrotoxic crisis or storm (principal)

== ENCOUNTER 2016-11-17 10:37 | Outpatient (CLI) | payer MEDICARE, OTHER ==
[~2016-11-17 10:37] MED LIST changes: +BACITAB PO; -BACITAB3 PO; +CIPR-249 PO; -COUM2.5T11 PO; +COUM2.5T17 PO; +FERR1TAB8; -FERR325T; +FLUO20CA19; -FLUO20CA9; +LOPE2CAP PO; -LOPE2TAB PO; -METH10TA; +METH10TA PO; -MUCI600T34 PO; +MUCI600T37 PO; +PERC5TAB12 PO; -PERC5TAB6 PO; +PRED10TA2 PO
[2016-11-17] MEDS ORDERED: WARF-60 PO (11:08)
[2016-11-17] MEDS ORDERED: diphenhydrAMINE 25 MG CAP PO ONE (11:30)
[2016-11-17] MEDS ORDERED: VEDOLIZUMAB 300 MG in NS 250 ML IV ONE (11:30)
[2016-11-17] MEDS ORDERED: ACETAMINOPHEN TAB 650MG DOSE (2X325MG) PO ONE (11:30)
== END 2016-11-17 12:30 | disposition home or self-care (01) ==
LOC: M INFU 10:37
PROVIDERS: ATTEND Internal Medicine Gastroenterology
DX: K50.90 Crohn's disease, unspecified, without complications (principal); Z87.891 Personal history of nicotine dependence; Z79.01 Long term (current) use of anticoagulants; Z79.899 Other long term (current) drug therapy
CPT/HCPCS: 96413; J3380

== ENCOUNTER 2016-11-30 10:25 | Outpatient (CLI) | payer MEDICARE, OTHER ==
[~2016-11-30] VITALS: Ht 147.3 cm; Wt 60.3 kg
[~2016-11-30 10:25] MED LIST changes: +WARF-60 PO
[2016-11-30] MEDS ORDERED: diphenhydrAMINE 25 MG CAP PO ONE (12:00)
[2016-11-30] MEDS ORDERED: ACETAMINOPHEN TAB 650MG DOSE (2X325MG) PO ONE (12:00)
[2016-11-30] MEDS ORDERED: VEDOLIZUMAB 300 MG in NS 250 ML IV ONE (12:00)
== END 2016-11-30 12:30 | disposition home or self-care (01) ==
LOC: M INFU 10:25
PROVIDERS: ATTEND Internal Medicine Gastroenterology
DX: K50.90 Crohn's disease, unspecified, without complications (principal); Z87.891 Personal history of nicotine dependence; Z79.01 Long term (current) use of anticoagulants; Z79.899 Other long term (current) drug therapy
CPT/HCPCS: 96413; J3380

== ENCOUNTER 2016-12-28 08:31 | Outpatient (CLI) | payer MEDICARE, OTHER ==
[2016-12-28] MEDS ORDERED: ACETAMINOPHEN TAB 650MG DOSE (2X325MG) PO ONE (09:00)
[2016-12-28] MEDS ORDERED: VEDOLIZUMAB 300 MG in NS 250 ML IV ONE (09:00)
[2016-12-28] MEDS ORDERED: diphenhydrAMINE 25 MG CAP PO ONE (09:00)
== END 2016-12-28 09:45 | disposition home or self-care (01) ==
LOC: M INFU 08:31
PROVIDERS: ATTEND Internal Medicine Gastroenterology
DX: K50.90 Crohn's disease, unspecified, without complications (principal); Z93.3 Colostomy status; Z87.891 Personal history of nicotine dependence; Z79.01 Long term (current) use of anticoagulants; Z79.899 Other long term (current) drug therapy
CPT/HCPCS: 96413; J3380

== ENCOUNTER → 2017-01-10 | Outpatient (REF) | payer MEDICARE, OTHER ==
[2017-01-10 12:25] LABS: FREE T4 1.33 NG/DL (0.76-1.46)
== END ==
LOC: M LABDRAW1 11:26
PROVIDERS: ATTEND Internal Medicine Endocrinology, Diabetes & Metabolism
DX: E05.00 Thyrotoxicosis with diffuse goiter without thyrotoxic crisis or storm (principal)

== ENCOUNTER 2017-02-22 13:51 | Outpatient (CLI) | payer MEDICARE, OTHER ==
[~2017-02-22] VITALS: Ht 147.3 cm; Wt 59.4 kg
[2017-02-22] MEDS ORDERED: VEDOLIZUMAB 300 MG in NS 250 ML IV ONE (15:00)
[2017-02-22] MEDS ORDERED: ACETAMINOPHEN TAB 650MG DOSE (2X325MG) PO ONE (15:00)
[2017-02-22] MEDS ORDERED: diphenhydrAMINE 25 MG CAP PO ONE (15:00)
== END 2017-02-22 15:30 | disposition home or self-care (01) ==
LOC: M INFU 13:51
PROVIDERS: ATTEND Internal Medicine Gastroenterology
DX: K50.90 Crohn's disease, unspecified, without complications (principal); Z87.891 Personal history of nicotine dependence; Z79.899 Other long term (current) drug therapy
CPT/HCPCS: 96413; J3380

== ENCOUNTER 2017-04-19 13:24 | Outpatient (CLI) | payer MEDICARE, OTHER ==
[~2017-04-19] VITALS: Ht 147.3 cm; Wt 56.7 kg
[~2017-04-19 13:24] MED LIST changes: +ENTY1INJ IV
[2017-04-19] MEDS ORDERED: VEDOLIZUMAB 300 MG in NS 250 ML IV ONE (14:00)
[2017-04-19] MEDS ORDERED: diphenhydrAMINE 25 MG CAP PO ONE (14:00)
[2017-04-19] MEDS ORDERED: ACETAMINOPHEN TAB 650MG DOSE (2X325MG) PO ONE (14:00)
== END 2017-04-19 15:00 | disposition home or self-care (01) ==
LOC: M INFU 13:24
PROVIDERS: ATTEND Internal Medicine Gastroenterology
DX: K50.90 Crohn's disease, unspecified, without complications (principal); Z87.891 Personal history of nicotine dependence; Z96.651 Presence of right artificial knee joint; Z79.899 Other long term (current) drug therapy; Z87.19 Personal history of other diseases of the digestive system
CPT/HCPCS: 96413; J3380

== ENCOUNTER 2017-04-21 06:47 | Day surgery (SDC) | payer MEDICARE, OTHER ==
[~2017-04-21] VITALS: Ht 144.8 cm; Wt 57.1 kg
[2017-04-21] MEDS ORDERED: PROPOFOL 200 MG/20 ML VIAL As Ordered ONE (07:00)
[2017-04-21] MEDS ORDERED: LIDOCAINE 2% INJ 100 MG/5 ML SDV (FOR ANES.) As Ordered ONE (07:00)
[2017-04-21] MEDS ORDERED: NS 1,000 ML IV ONE (07:30)
--- NOTE | 2017-04-21 08:33 | ROOR ---
Patient Name: Munira Guerra Procedure Date: 04/21/2017 8:18 AM Date of : 1945 Age: 71 Room: [facility] Gender: Female Note Status: Finalized Procedure: Upper GI endoscopy Indications: Iron deficiency anemia Providers: Andrés Araujo Jr, MD Referring MD: UMANG BIRD MD Requesting Provider: Medicines: Propofol per Anesthesia Complications: No immediate complications. Procedure: Pre-Anesthesia Assessment: - Prior to the procedure, a History and Physical was performed, and patient medications and allergies were reviewed. The patient is competent. The risks and benefits of the procedure and the sedation options and risks were discussed with the patient. All questions were answered and informed consent was obtained. Patient identification and proposed procedure were verified by the physician and the nurse in the pre-procedure area and in the procedure room. Mental Status Examination: alert and oriented. Airway Examination: normal oropharyngeal airway and neck mobility. Respiratory Examination: clear to auscultation. CV Examination: normal. ASA Grade Assessment: II - A patient with mild systemic disease. After reviewing the risks and benefits, the patient was deemed in satisfactory condition to undergo the procedure. The anesthesia plan was to use moderate sedation / analgesia (conscious sedation). Immediately prior to administration of medications, the patient was re-assessed for adequacy to receive sedatives. The heart rate, respiratory rate, oxygen saturations, blood pressure, adequacy of pulmonary ventilation, and response to care were monitored throughout the procedure. The physical status of the patient was re-assessed after the procedure. The Endoscope was introduced through the mouth, and advanced to the second part of duodenum. The upper GI endoscopy was accomplished without difficulty. The patient tolerated the procedure well. Findings: The upper third of the esophagus, middle third of the esophagus and lower third of the esophagus were normal. Diffuse mild inflammation characterized by congestion (edema), erythema and friability was found in the gastric antrum. Biopsies were taken with a cold forceps for histology. Diffuse and patchy moderate inflammation characterized by congestion (edema), erosions, erythema and friability was found in the cardia, in the gastric fundus and in the gastric body. The duodenal bulb, first portion of the duodenum and second portion of the duodenum were normal. Impression: - Normal upper third of esophagus, middle third of esophagus and lower third of esophagus. - Gastritis. Biopsied. - Gastritis. - Normal duodenal bulb, first portion of the duodenum and second portion of the duodenum. Recommendation: - Discharge patient to home (ambulatory). - Return to my office in 3 weeks. Andrés Araujo MD Andrés Araujo Jr, MD 04/21/2017 8:32:48 AM This report has been signed electronically. Number of Addenda: 0 Note Initiated On: 04/21/2017 8:18 AM Estimated Blood Loss: Estimated blood loss: none.
--- NOTE | 2017-04-21 08:56 | ROOR ---
Patient Name: Munira Guerra Procedure Date: 04/21/2017 8:19 AM Date of : 1945 Age: 71 Room: [facility] Gender: Female Note Status: Finalized Procedure: Colonoscopy Indications: Iron deficiency anemia, Personal history of ulcerative colitis Providers: Andrés Araujo Jr, MD Referring MD: UMANG BIRD MD Requesting Provider: Medicines: Propofol per Anesthesia Complications: No immediate complications. Procedure: Pre-Anesthesia Assessment: - Prior to the procedure, a History and Physical was performed, and patient medications and allergies were reviewed. The patient is competent. The risks and benefits of the procedure and the sedation options and risks were discussed with the patient. All questions were answered and informed consent was obtained. Patient identification and proposed procedure were verified by the physician and the nurse in the pre-procedure area and in the procedure room. Mental Status Examination: alert and oriented. Airway Examination: normal oropharyngeal airway and neck mobility. Respiratory Examination: clear to auscultation. CV Examination: normal. ASA Grade Assessment: II - A patient with mild systemic disease. After reviewing the risks and benefits, the patient was deemed in satisfactory condition to undergo the procedure. The anesthesia plan was to use moderate sedation / analgesia (conscious sedation). Immediately prior to administration of medications, the patient was re-assessed for adequacy to receive sedatives. The heart rate, respiratory rate, oxygen saturations, blood pressure, adequacy of pulmonary ventilation, and response to care were monitored throughout the procedure. The physical status of the patient was re-assessed after the procedure. The Colonoscope was introduced through the anus and advanced to the cecum, identified by appendiceal orifice and ileocecal valve. The colonoscopy was performed without difficulty. The patient tolerated the procedure well. The quality of the bowel preparation was adequate and good. Findings: Inflammation characterized by congestion (edema), erythema, friability, granularity, mucus, pseudopolyps and scarring was found in a continuous and circumferential pattern from the anus to the transverse colon. No sites were spared. This was severe, and when compared to previous examinations, the findings are unchanged. Biopsies for histology were taken with a cold forceps for evaluation of microscopic colitis. Two semi-pedunculated polyps were found in the sigmoid colon and transverse colon. The polyps were medium in size. Biopsies were taken with a cold forceps for histology. Impression: - Ulcerative colitis and pancolitis ulcerative colitis. Inflammation was found from the anus to the transverse colon. This was severe. The findings are unchanged compared to previous examinations. Biopsied. - Two medium polyps in the sigmoid colon and in the transverse colon. Biopsied. Recommendation: - Repeat colonoscopy in 1 year for surveillance. Andrés Araujo MD Andrés Araujo Jr, MD 04/21/2017 8:56:36 AM This report has been signed electronically. Number of Addenda: 0 Note Initiated On: 04/21/2017 8:19 AM Estimated Blood Loss: Estimated blood loss: none.
[2017-04-21 09:23] VITALS: BP 115/55
== END 2017-04-21 09:10 | disposition home or self-care (01) ==
LOC: M OPP 06:47
PROVIDERS: ATTEND Surgery
DX: K29.70 Gastritis, unspecified, without bleeding (principal); D12.5 Benign neoplasm of sigmoid colon; D12.3 Benign neoplasm of transverse colon; Z87.19 Personal history of other diseases of the digestive system; K62.5 Hemorrhage of anus and rectum; R19.7 Diarrhea, unspecified; I10 Essential (primary) hypertension; M19.90 Unspecified osteoarthritis, unspecified site; E05.01 Thyrotoxicosis with diffuse goiter with thyrotoxic crisis or storm; F41.9 Anxiety disorder, unspecified; F32.9 Major depressive disorder, single episode, unspecified; R51 Headache; Z79.899 Other long term (current) drug therapy; Z87.891 Personal history of nicotine dependence; Z86.711 Personal history of pulmonary embolism; Z96.651 Presence of right artificial knee joint

== ENCOUNTER → 2017-05-30 | Outpatient (REF) | payer MEDICARE, OTHER ==
[2017-05-30 16:40] LABS: FREE T4 1.77 NG/DL (0.76-1.46)
[2017-05-30 16:40] LABS: THYROID STIMULATING HORMONE < 0.005 uIU/ML (0.358-3.740)
== END ==
LOC: M LABDRAW1 14:09
DX: E05.00 Thyrotoxicosis with diffuse goiter without thyrotoxic crisis or storm (principal)
CPT/HCPCS: 84443

== ENCOUNTER 2017-06-14 14:00 | Outpatient (CLI) | payer MEDICARE, OTHER ==
[2017-06-14] MEDS: diphenhydrAMINE 25 MG CAP PO (14:28)
[2017-06-14] MEDS: ACETAMINOPHEN TAB 650MG DOSE (2X325MG) PO (14:28)
[2017-06-14] MEDS: VEDOLIZUMAB 300 MG in NS 250 ML IV (14:39)
== END 2017-06-14 15:30 | disposition home or self-care (01) ==
LOC: M INFU 14:00
DX: K50.90 Crohn's disease, unspecified, without complications (principal); Z79.899 Other long term (current) drug therapy
CPT/HCPCS: 96365

== ENCOUNTER → 2017-07-18 | Outpatient (REF) | payer MEDICARE, OTHER ==
[2017-07-18 13:53] LABS: BASO # 0.1 10^3/uL (0.0-0.2); EOS # 0.5 10^3/uL (0.0-0.50); EOS % 5.9 % (0.0-3.0); HEMATOCRIT 34.2 % (36.0-47.0); HEMOGLOBIN 10.6 g/dl (12.0-16.0); IMMATURE GRANULOCYTE % 0.2 % (0-3.0); LYMPH # 1.6 10^3/uL (1.5-4.5); LYMPH % 19.4 % (24.0-44.0); MEAN CORPUSCULAR HEMOGLOBIN 25.9 pg (27.0-33.0); MEAN CORPUSCULAR VOLUME 83.6 fl (80.0-96.0); MONO % 11.7 % (0.0-5.0); NEUTROPHILS % 61.8 % (36.0-66.0); PLATELET COUNT, AUTOMATED 452 10^3/uL (150-450); RED BLOOD COUNT 4.09 10^6/uL (4.00-5.40); RED CELL DISTRIBUTION WIDTH 14.6 % (11.5-14.5); WHITE BLOOD COUNT 8.1 10^3/uL (4.0-10.0)
[2017-07-18 14:12] LABS: THYROID STIMULATING HORMONE 0.007 uIU/ML (0.358-3.740)
== END ==
LOC: M LABDRAW1 13:35
DX: E05.00 Thyrotoxicosis with diffuse goiter without thyrotoxic crisis or storm (principal)
CPT/HCPCS: 84443

== ENCOUNTER 2017-08-08 10:22 | Outpatient (CLI) | payer MEDICARE, OTHER ==
[2017-08-08] MEDS: ACETAMINOPHEN TAB 650MG DOSE (2X325MG) PO (10:42)
[2017-08-08] MEDS: diphenhydrAMINE 25 MG CAP PO (10:43)
[2017-08-08] MEDS: VEDOLIZUMAB 300 MG in NS 250 ML IV (10:56)
== END 2017-08-08 11:35 | disposition home or self-care (01) ==
LOC: M INFU 10:22
DX: K50.90 Crohn's disease, unspecified, without complications (principal); E11.9 Type 2 diabetes mellitus without complications; K21.9 Gastro-esophageal reflux disease without esophagitis; Z79.899 Other long term (current) drug therapy; Z87.891 Personal history of nicotine dependence
CPT/HCPCS: J3380

== ENCOUNTER → 2017-09-26 | Outpatient (REF) | payer MEDICARE, OTHER ==
[2017-09-26 14:16] LABS: FREE T4 1.25 NG/DL (0.76-1.46)
[2017-09-26 14:16] LABS: THYROID STIMULATING HORMONE < 0.005 uIU/ML (0.358-3.740)
== END ==
LOC: M LABDRAW1 11:38
DX: E05.00 Thyrotoxicosis with diffuse goiter without thyrotoxic crisis or storm (principal)
CPT/HCPCS: 84443

== ENCOUNTER 2017-10-03 15:34 | Outpatient (CLI) | payer MEDICARE, OTHER ==
[2017-10-03] MEDS: ACETAMINOPHEN TAB 650MG DOSE (2X325MG) PO ×2 (16:00→16:04)
[2017-10-03] MEDS: diphenhydrAMINE 25 MG CAP PO (16:04)
[2017-10-03] MEDS: VEDOLIZUMAB 300 MG in NS 250 ML IV (16:15)
== END 2017-10-03 17:00 | disposition home or self-care (01) ==
LOC: M INFU 15:34
DX: K50.90 Crohn's disease, unspecified, without complications (principal); I11.9 Hypertensive heart disease without heart failure; E11.9 Type 2 diabetes mellitus without complications; M12.9 Arthropathy, unspecified; Z79.899 Other long term (current) drug therapy; Z87.442 Personal history of urinary calculi; Z87.891 Personal history of nicotine dependence; Z95.810 Presence of automatic (implantable) cardiac defibrillator
CPT/HCPCS: J3380

== ENCOUNTER 2017-11-14 09:47 | Outpatient (CLI) | payer MEDICARE, OTHER ==
[2017-11-14] MEDS: ACETAMINOPHEN TAB 650MG DOSE (2X325MG) PO (10:00)
[2017-11-14] MEDS: diphenhydrAMINE 25 MG CAP PO (10:06)
[2017-11-14] MEDS: VEDOLIZUMAB 300 MG in NS 250 ML IV (10:49)
== END 2017-11-14 11:25 | disposition home or self-care (01) ==
LOC: M INFU 09:47
DX: K50.90 Crohn's disease, unspecified, without complications (principal); Z79.899 Other long term (current) drug therapy
CPT/HCPCS: J3380

== ENCOUNTER → 2017-12-06 | Outpatient (REF) | payer MEDICARE, OTHER ==
[2017-12-06 14:03] LABS: THYROID STIMULATING HORMONE < 0.005 uIU/ML (0.358-3.740)
[2017-12-06 14:37] LABS: FREE T4 0.69 NG/DL (0.76-1.46)
== END ==
LOC: M LABDRAW1 13:28
DX: E05.00 Thyrotoxicosis with diffuse goiter without thyrotoxic crisis or storm (principal)
CPT/HCPCS: 84443

== ENCOUNTER 2017-12-26 10:38 | Outpatient (CLI) | payer MEDICARE, OTHER ==
[2017-12-26] MEDS ORDERED: diphenhydrAMINE 25 MG CAP PO (11:00)
[2017-12-26] MEDS ORDERED: VEDOLIZUMAB 300 MG in NS 250 ML IV (11:00)
[2017-12-26] MEDS ORDERED: ACETAMINOPHEN TAB 650MG DOSE (2X325MG) PO (11:00)
== END 2017-12-26 12:10 | disposition home or self-care (01) ==
LOC: M INFU 10:38
DX: K50.90 Crohn's disease, unspecified, without complications (principal); Z79.899 Other long term (current) drug therapy
CPT/HCPCS: 96365

== ENCOUNTER 2018-02-10 15:52 | Inpatient (IN) | payer MEDICARE, OTHER ==
[2018-02-10] MEDS: MORPHINE 4 MG/ML 1ML VIAL/SYRINGE (J2270) IV ×2 (17:44→21:00)
[2018-02-10] MEDS: ONDANSETRON 4MG/2ML VIAL (J2405) IV (17:45)
[2018-02-10] MEDS: NS 500 ML IV (17:45)
[2018-02-10] MEDS: GASTROGRAFIN SOLUTION 30ML PO ×2 (17:50→18:43)
[2018-02-10 18:06] LABS: BASO # 0.1 10^3/uL (0.0-0.2); BASO % 0.5 % (0.0-1.0); EOS # 0.5 10^3/uL (0.0-0.50); EOS % 4.4 % (0.0-3.0); HEMATOCRIT 37.9 % (36.0-47.0); HEMOGLOBIN 11.9 g/dl (12.0-15.5); IMMATURE GRANULOCYTE % 0.4 % (0-3.0); LYMPH # 1.9 10^3/uL (1.5-4.5); LYMPH % 17.6 % (24.0-44.0); MEAN CORPUSCULAR HEMOGLOBIN 26.4 pg (27.0-33.0); MEAN CORPUSCULAR HGB CONC 31.4 g/dl (32.0-36.5); MONO # 1.4 10^3/uL (0.0-0.8); NEUTROPHILS % 64.1 % (36.0-66.0); PLATELET COUNT, AUTOMATED 425 10^3/uL (150-450); RED BLOOD COUNT 4.51 10^6/uL (4.00-5.40); RED CELL DISTRIBUTION WIDTH 14.2 % (11.5-14.5); WHITE BLOOD COUNT 10.9 10^3/uL (4.0-10.0)
[2018-02-10 18:34] LABS: ALBUMIN 2.9 GM/DL (3.2-5.2); ALBUMIN/GLOBULIN RATIO 0.71 (1.00-1.93); ALKALINE PHOSPHATASE 165 U/L (45-117); ALT/SGPT 14 U/L (12-78); ANION GAP 8 MEQ/L (8-16); AST/SGOT 10 U/L (7-37); BILIRUBIN,TOTAL 0.4 MG/DL (0.2-1.0); BLOOD UREA NITROGEN 17 MG/DL (7-18); CALCIUM LEVEL 10.6 MG/DL (8.8-10.2); CARBON DIOXIDE LEVEL 30 MEQ/L (21-32); CHLORIDE LEVEL 104 MEQ/L (98-107); GLOMERULAR FILTRATION RATE > 60.0 (>39); GLUCOSE, FASTING 99 MG/DL (70-100); LIPASE 356 U/L (73-393); SODIUM LEVEL 142 MEQ/L (136-145)
[2018-02-10 19:24] LABS: KETONE, URINE AUTO RFX 1+ mg/dL (NEGATIVE); LEUKOCYTE ESTERASE UR AUTO RFX 2+ (NEGATIVE); NITRITE, URINE AUTO RFX NEGATIVE (NEGATIVE); RBC, URINE AUTO RFX 6 /HPF (0-3); SPECIFIC GRAVITY UR AUTO RFX 1.018 (1.002-1.035); SQUAM EPITHELIAL CELL UR AURFX 0 /HPF (0-6); WBC, URINE AUTO RFX 28 /HPF (0-3)
[2018-02-10] MEDS ORDERED: ISOVUE-370 76% 100ML VIAL (Q9967) As Ordered (19:25)
[2018-02-10] MEDS ORDERED: ONDANSETRON 4MG/2ML VIAL (J2405) IV (22:00)
[2018-02-10] MEDS ORDERED: MORPHINE 4 MG/ML 1ML VIAL/SYRINGE (J2270) IV ×2 (22:00)
[2018-02-10] MEDS: LR 1,000 ML IV (22:54)
[2018-02-10] MEDS: PANTOPRAZOLE 40MG INJ (PROTONIX) (C9113) IV (22:54)
[2018-02-11] MEDS: KETOROLAC 30 MG/ML VIAL (J1885) IV ×2 (01:12→15:28)
[2018-02-11] MEDS: LR 1,000 ML IV ×2 (06:00→15:12)
[2018-02-11 08:10] LABS: BASO # 0.1 10^3/uL (0.0-0.2); BASO % 0.6 % (0.0-1.0); EOS # 0.7 10^3/uL (0.0-0.50); EOS % 7.8 % (0.0-3.0); HEMATOCRIT 33.6 % (36.0-47.0); HEMOGLOBIN 10.3 g/dl (12.0-15.5); IMMATURE GRANULOCYTE % 0.2 % (0-3.0); LYMPH # 1.9 10^3/uL (1.5-4.5); LYMPH % 19.7 % (24.0-44.0); MEAN CORPUSCULAR HEMOGLOBIN 26.3 pg (27.0-33.0); MEAN CORPUSCULAR HGB CONC 30.7 g/dl (32.0-36.5); MEAN CORPUSCULAR VOLUME 85.7 fl (80.0-96.0); MONO # 1.4 10^3/uL (0.0-0.8); MONO % 14.6 % (0.0-5.0); NEUTROPHILS # 5.4 10^3/uL (1.8-7.7); NEUTROPHILS % 57.1 % (36.0-66.0); PLATELET COUNT, AUTOMATED 374 10^3/uL (150-450); RED BLOOD COUNT 3.92 10^6/uL (4.00-5.40); RED CELL DISTRIBUTION WIDTH 14.5 % (11.5-14.5); WHITE BLOOD COUNT 9.5 10^3/uL (4.0-10.0)
[2018-02-11 08:41] LABS: ANION GAP 9 MEQ/L (8-16); BLOOD UREA NITROGEN 17 MG/DL (7-18); CALCIUM LEVEL 9.3 MG/DL (8.8-10.2); CARBON DIOXIDE LEVEL 29 MEQ/L (21-32); CHLORIDE LEVEL 104 MEQ/L (98-107); GLOMERULAR FILTRATION RATE > 60.0 (>39); GLUCOSE, FASTING 82 MG/DL (70-100); POTASSIUM SERUM 3.8 MEQ/L (3.5-5.1); SODIUM LEVEL 142 MEQ/L (136-145)
[2018-02-11] MEDS: INFLUENZA VIRUS VACCINE HIGH DOSE 0.5 ML SYRINGE (90662) IM (10:58)
[2018-02-11] MEDS: PREVNAR 13 VACCINE SYRINGE (CPT CODE:90670) IM (11:01)
[2018-02-12] MEDS: LR 1,000 ML IV (04:25)
[2018-02-12] MEDS: POTASSIUM CHLORIDE 10 MEQ SR TABLET PO (11:36)
[2018-02-12 11:46] LABS: FREE T4 2.41 NG/DL (0.76-1.46); THYROID STIMULATING HORMONE < 0.005 uIU/ML (0.358-3.740)
[2018-02-12] MEDS: FLUoxetine 20 MG CAP PO (13:21)
[2018-02-12] MEDS: TORSEMIDE 10 MG TABLET PO (13:22)
[2018-02-12] MEDS: SLF 3 ML SYR IV ×3 (13:22→21:17)
[2018-02-12] MEDS: KETOROLAC 30 MG/ML VIAL (J1885) IV (19:32)
[2018-02-13] MEDS: SLF 3 ML SYR IV (06:35)
[2018-02-13] MEDS: POTASSIUM CHLORIDE 10 MEQ SR TABLET PO (09:06)
[2018-02-13] MEDS: FLUoxetine 20 MG CAP PO (09:07)
[2018-02-13 11:45] LABS: HEPATITIS C VIRUS ABY INDEX 0.2 INDEX (<0.8)
[2018-02-13 11:46] LABS: HIV 1&2 SCREEN CENTAUR NEGATIVE (NEGATIVE)
== END 2018-02-13 14:30 | disposition home or self-care (01) | DRG 389 ==
LOC: M PED 02-11 00:15 → M ED 15:52 → M ED INP 21:49
DX: K56.50 Intestinal adhesions [bands], unspecified as to partial versus complete obstruction (principal); K51.90 Ulcerative colitis, unspecified, without complications; I50.30 Unspecified diastolic (congestive) heart failure; J44.9 Chronic obstructive pulmonary disease, unspecified; E05.00 Thyrotoxicosis with diffuse goiter without thyrotoxic crisis or storm; Z79.899 Other long term (current) drug therapy; Z86.711 Personal history of pulmonary embolism; Z96.651 Presence of right artificial knee joint; Z90.722 Acquired absence of ovaries, bilateral; Z87.891 Personal history of nicotine dependence

== ENCOUNTER 2018-02-20 10:25 | Outpatient (CLI) | payer MEDICARE, OTHER ==
[2018-02-20] MEDS: ACETAMINOPHEN TAB 650MG DOSE (2X325MG) PO (10:30)
[2018-02-20] MEDS: diphenhydrAMINE 25 MG CAP PO (10:30)
[2018-02-20] MEDS: VEDOLIZUMAB 300 MG in NS 250 ML IV (11:03)
== END 2018-02-20 12:00 | disposition home or self-care (01) ==
LOC: M INFU 10:25
DX: K50.90 Crohn's disease, unspecified, without complications (principal)
CPT/HCPCS: J3380

== ENCOUNTER 2018-03-23 06:35 | Day surgery (SDC) | payer MEDICARE, OTHER ==
[2018-03-23] MEDS: NS 1,000 ML IV (06:30)
[2018-03-23] MEDS ORDERED: PROPOFOL 200 MG/20 ML VIAL As Ordered (06:55)
[2018-03-23] MEDS ORDERED: LIDOCAINE 2% MDV 20 ML VIAL As Ordered (06:55)
== END 2018-03-23 09:12 | disposition home or self-care (01) ==
LOC: M OPP 06:35
DX: K51.90 Ulcerative colitis, unspecified, without complications (principal); K62.1 Rectal polyp; D12.2 Benign neoplasm of ascending colon; D12.0 Benign neoplasm of cecum; R00.2 Palpitations; E05.00 Thyrotoxicosis with diffuse goiter without thyrotoxic crisis or storm; K44.9 Diaphragmatic hernia without obstruction or gangrene; F32.9 Major depressive disorder, single episode, unspecified; R25.1 Tremor, unspecified; Z79.899 Other long term (current) drug therapy; Z86.19 Personal history of other infectious and parasitic diseases; Z87.891 Personal history of nicotine dependence; Z93.3 Colostomy status; Z96.651 Presence of right artificial knee joint
CPT/HCPCS: 45385

== ENCOUNTER 2018-04-20 08:06 | Outpatient (CLI) | payer MEDICARE, OTHER ==
[2018-04-20] MEDS: ACETAMINOPHEN TAB 650MG DOSE (2X325MG) PO (09:00)
[2018-04-20] MEDS: diphenhydrAMINE 25 MG CAP PO (09:00)
[2018-04-20] MEDS: VEDOLIZUMAB 300 MG in NS 250 ML IV (09:07)
== END 2018-04-20 10:00 | disposition home or self-care (01) ==
LOC: M INFU 08:06
DX: K50.90 Crohn's disease, unspecified, without complications (principal)
CPT/HCPCS: J3380

== ENCOUNTER → 2018-04-25 | Outpatient (REF) | payer MEDICARE, OTHER ==
[2018-04-25 16:43] LABS: THYROID STIMULATING HORMONE < 0.005 uIU/ML (0.358-3.740)
[2018-04-25 16:43] LABS: FREE T4 1.66 NG/DL (0.76-1.46)
== END ==
LOC: M LABDRAW1 14:53
DX: E05.00 Thyrotoxicosis with diffuse goiter without thyrotoxic crisis or storm (principal)
CPT/HCPCS: 84443

== ENCOUNTER 2018-06-05 07:42 | Outpatient (CLI) | payer MEDICARE, OTHER ==
[~2018-06-05] VITALS: Ht 147.3 cm; Wt 60.8 kg
[~2018-06-05 07:42] MED LIST changes: +ACET500T15 PO; -ACET50TAOT PO; +KLOR10TA76 PO; +LORA-243 PO; -LORA10TA2 PO; +METO1TAB87 PO; -POTA10CA PO; +PROBCAP14 PO; +ZOFR4TAB14 PO; -ZOFR4TAB3 PO
[2018-06-05 07:45] VITALS: BP 136/60
[2018-06-05] MEDS ORDERED: VEDOLIZUMAB 300 MG in NS 250 ML IV ONE (09:00)
[2018-06-05] MEDS ORDERED: ACETAMINOPHEN TAB 650MG DOSE (2X325MG) PO ONE (09:00)
[2018-06-05] MEDS ORDERED: diphenhydrAMINE 25 MG CAP PO ONE (09:00)
[2018-06-05 09:40] VITALS: BP 125/58
== END 2018-06-05 09:40 | disposition home or self-care (01) ==
LOC: M INFU 07:42
PROVIDERS: ATTEND Internal Medicine Gastroenterology
DX: K50.90 Crohn's disease, unspecified, without complications (principal)
CPT/HCPCS: 96365; J3380

== ENCOUNTER → 2018-06-19 | Outpatient (REF) | payer MEDICARE, OTHER ==
[2018-06-19 16:56] LABS: FREE T4 1.43 NG/DL (0.76-1.46); THYROID STIMULATING HORMONE < 0.005 uIU/ML (0.358-3.740)
== END ==
LOC: M LABDRAW1 15:30
PROVIDERS: ATTEND Internal Medicine Endocrinology, Diabetes & Metabolism
DX: E05.00 Thyrotoxicosis with diffuse goiter without thyrotoxic crisis or storm (principal)

== ENCOUNTER 2018-07-31 08:49 | Outpatient (CLI) | payer MEDICARE, OTHER ==
[~2018-07-31] VITALS: Ht 147.3 cm; Wt 58.2 kg
[2018-07-31 09:08] VITALS: BP 121/56
[2018-07-31] MEDS ORDERED: ACETAMINOPHEN TAB 650MG DOSE (2X325MG) PO ONE (09:30)
[2018-07-31] MEDS ORDERED: diphenhydrAMINE 25 MG CAP PO ONE (09:30)
[2018-07-31] MEDS ORDERED: VEDOLIZUMAB 300 MG in NS 250 ML IV ONE (10:00)
[2018-07-31 10:29] VITALS: BP 116/56
== END 2018-07-31 10:30 | disposition home or self-care (01) ==
LOC: M INFU 08:49
PROVIDERS: ATTEND Internal Medicine Gastroenterology
DX: K50.90 Crohn's disease, unspecified, without complications (principal)
CPT/HCPCS: 96365; J3380

== ENCOUNTER → 2018-08-31 | Outpatient (REF) | payer MEDICARE, OTHER ==
[~2018-08-31] MED LIST changes: -/ACETCOD2T PO; -/TAMS4CA PO; +ACET1TAB15 PO; +ACET300T47 PO; -CODE30TA3 PO; +FLOM0.4C39 PO; +PRED-351 PO; -PRED10TA PO; -VANC250C2 PO; +VANC250C3 PO
[2018-08-31 14:11] LABS: FREE T4 2.06 NG/DL (0.76-1.46); THYROID STIMULATING HORMONE 0.005 uIU/ML (0.358-3.740)
== END ==
LOC: M LABDRAW1 13:14
PROVIDERS: ATTEND Internal Medicine Endocrinology, Diabetes & Metabolism
DX: E05.00 Thyrotoxicosis with diffuse goiter without thyrotoxic crisis or storm (principal)

== ENCOUNTER 2018-09-25 08:58 | Outpatient (CLI) | payer MEDICARE, OTHER ==
[~2018-09-25] VITALS: Ht 147.3 cm; Wt 60.0 kg
[2018-09-25] MEDS ORDERED: diphenhydrAMINE 25 MG CAP PO ONE (09:30)
[2018-09-25] MEDS ORDERED: ACETAMINOPHEN TAB 650MG DOSE (2X325MG) PO ONE (09:30)
[2018-09-25 09:32] VITALS: BP 154/61
[2018-09-25] MEDS ORDERED: VEDOLIZUMAB 300 MG in NS 250 ML IV ONE (10:00)
[2018-09-25 10:45] VITALS: BP 124/57
== END 2018-09-25 10:45 | disposition home or self-care (01) ==
LOC: M INFU 08:58
PROVIDERS: ATTEND Internal Medicine Gastroenterology
DX: K50.90 Crohn's disease, unspecified, without complications (principal)
CPT/HCPCS: 96365; J3380

== ENCOUNTER → 2018-11-15 | Outpatient (REF) | payer MEDICARE, OTHER ==
[2018-11-15 12:43] LABS: FREE T4 1.94 NG/DL (0.76-1.46); THYROID STIMULATING HORMONE < 0.005 uIU/ML (0.358-3.740)
== END ==
LOC: M LABDRAW1 11:56
PROVIDERS: ATTEND Internal Medicine Endocrinology, Diabetes & Metabolism
DX: E05.00 Thyrotoxicosis with diffuse goiter without thyrotoxic crisis or storm (principal)

== ENCOUNTER 2018-11-20 09:30 | Outpatient (CLI) | payer MEDICARE, OTHER ==
[~2018-11-20] VITALS: Ht 147.3 cm; Wt 60.9 kg
[2018-11-20 09:50] VITALS: BP 137/59
[2018-11-20] MEDS ORDERED: ACETAMINOPHEN TAB 650MG DOSE (2X325MG) PO ONE (10:00)
[2018-11-20] MEDS ORDERED: VEDOLIZUMAB 300 MG in NS 250 ML IV ONE (10:00)
[2018-11-20] MEDS ORDERED: diphenhydrAMINE 25 MG CAP PO ONE (10:00)
[2018-11-20 11:46] VITALS: BP 117/57
== END 2018-11-20 11:45 | disposition home or self-care (01) ==
LOC: M INFU 09:30
PROVIDERS: ATTEND Internal Medicine Gastroenterology
DX: K50.90 Crohn's disease, unspecified, without complications (principal)
CPT/HCPCS: 96365; J3380

== ENCOUNTER → 2018-12-26 | Outpatient (REF) | payer MEDICARE, OTHER ==
[2018-12-26 18:09] LABS: FREE T4 2.58 NG/DL (0.76-1.46); THYROID STIMULATING HORMONE < 0.005 uIU/ML (0.358-3.740)
== END ==
LOC: M LABDRAW1 16:45
PROVIDERS: ATTEND Nurse Practitioner Family
DX: E05.00 Thyrotoxicosis with diffuse goiter without thyrotoxic crisis or storm (principal)

== ENCOUNTER 2019-01-15 09:27 | Outpatient (CLI) | payer MEDICARE, OTHER ==
[~2019-01-15] VITALS: Ht 177.8 cm; Wt 60.0 kg
[2019-01-15 09:30] VITALS: BP 155/91
[2019-01-15] MEDS ORDERED: diphenhydrAMINE 25 MG CAP PO ONE (10:00)
[2019-01-15] MEDS ORDERED: VEDOLIZUMAB 300 MG in NS 250 ML IV ONE (10:00)
[2019-01-15] MEDS ORDERED: ACETAMINOPHEN TAB 650MG DOSE (2X325MG) PO ONE (10:00)
[2019-01-15 10:40] VITALS: BP 117/54
== END 2019-01-15 10:55 | disposition home or self-care (01) ==
LOC: M INFU 09:27
PROVIDERS: ATTEND Internal Medicine Gastroenterology
DX: K50.90 Crohn's disease, unspecified, without complications (principal)
CPT/HCPCS: 96365; J3380

== ENCOUNTER → 2019-01-15 | Outpatient (CLI) | payer MEDICARE, OTHER ==
--- NOTE | 2019-01-16 14:05 | REP ---
Radionuclide thyroid scan and uptake: The right lobe measures 7.7 centimeters cranial caudad. The left lobe measures 8.0 cm craniocaudad. The right and left lobes are enlarged. There is homogeneous uptake throughout both right and left lobes. There are no focal hot or cold zones. Thyroid uptake: The 24 uptake is 92.02%. Normal 24 uptake is 25% - 35%. The study is performed with 340 microcuries of I-123. Electronically Signed by Ramiro Anthony MD 01/16/2019 01:56 P
== END ==
LOC: M RAD 13:01
PROVIDERS: ATTEND Internal Medicine Endocrinology, Diabetes & Metabolism
DX: E05.00 Thyrotoxicosis with diffuse goiter without thyrotoxic crisis or storm (principal)
CPT/HCPCS: 78012; 96365; A9516; J3380

== ENCOUNTER → 2019-01-25 | Outpatient (CLI) | payer MEDICARE, OTHER | LOC: M RAD 10:17 | PROVIDERS: ATTEND Internal Medicine Endocrinology, Diabetes & Metabolism | DX: E05.90 Thyrotoxicosis, unspecified without thyrotoxic crisis or storm (principal) | CPT/HCPCS: 79005; A9517 ==

== ENCOUNTER → 2019-02-13 | Outpatient (CLI) | payer MEDICARE, OTHER ==
[~2019-02-13] MED LIST changes: +PROP10TA56 PO
[2019-02-13 09:12] LABS: HEMATOCRIT 32.2 % (36.0-47.0); MEAN CORPUSCULAR HEMOGLOBIN 26.7 pg (27.0-33.0); MEAN CORPUSCULAR HGB CONC 31.1 g/dl (32.0-36.5); MEAN CORPUSCULAR VOLUME 85.9 fl (80.0-96.0); PLATELET COUNT, AUTOMATED 298 10^3/uL (150-450); RED BLOOD COUNT 3.75 10^6/uL (4.00-5.40); WHITE BLOOD COUNT 8.1 10^3/uL (4.0-10.0)
[2019-02-13 09:24] LABS: INR 1.02; PROTHROMBIN TIME 13.1 SECONDS (11.8-14.0)
[2019-02-13 09:34] LABS: ERYTHROCYTE SEDIMENTATION RATE 60 mm/hr (0-30)
--- NOTE | 2019-02-13 09:34 | REP ---
The PA and lateral chest: Comparison is 09/17/2015. The lung spence are clear. The cardiac size is normal. The tristian, mediastinum, and skeletal structures are unremarkable. 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 Impression: Marked eventration of the right hemidiaphragm, unchanged, otherwise, negative PA and lateral chest. There is no interval change. Electronically Signed by Ramiro Anthony MD 02/13/2019 09:26 A
[2019-02-13 09:44] LABS: ALBUMIN 2.6 GM/DL (3.2-5.2); ALT/SGPT 13 U/L (12-78); BILIRUBIN,TOTAL 0.3 MG/DL (0.2-1.0); BLOOD UREA NITROGEN 12 MG/DL (7-18); CALCIUM LEVEL 9.6 MG/DL (8.8-10.2); CARBON DIOXIDE LEVEL 31 MEQ/L (21-32); CHLORIDE LEVEL 106 MEQ/L (98-107); CREATININE FOR GFR 0.61 MG/DL (0.55-1.30); GLOMERULAR FILTRATION RATE > 60.0 (>39); GLUCOSE, FASTING 111 MG/DL (70-100); POTASSIUM SERUM 3.8 MEQ/L (3.5-5.1); SODIUM LEVEL 142 MEQ/L (136-145); TOTAL PROTEIN 5.9 GM/DL (6.4-8.2)
--- NOTE | 2019-02-14 06:00 | ECGEPIP ---
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
== END ==
LOC: M LAB 08:25
PROVIDERS: ATTEND Orthopaedic Surgery
DX: Z01.818 Encounter for other preprocedural examination (principal); M17.12 Unilateral primary osteoarthritis, left knee; E07.9 Disorder of thyroid, unspecified; Z79.899 Other long term (current) drug therapy

== ENCOUNTER → 2019-02-21 | Outpatient (CLI) | payer MEDICARE, OTHER ==
[~2019-02-21] MED LIST changes: +XARE10TA PO
== END ==
LOC: M PT 09:52
PROVIDERS: ATTEND Orthopaedic Surgery
DX: M17.12 Unilateral primary osteoarthritis, left knee (principal)

== ENCOUNTER 2019-02-27 05:41 | Inpatient (IN) | payer MEDICARE, OTHER ==
--- NOTE | 2019-02-26 10:01 | HPE ---
DATE OF ANTICIPATED ADMISSION: 02/27/2019 ATTENDING PHYSICIAN: Dr. Xiang Porter CHIEF COMPLAINT: Left knee pain and stiffness. HISTORY: This is a pleasant 73-year-old female patient with progressively worsening left knee pain and stiffness that has failed to improve with conservative treatment. She has been consented for a left total knee arthroplasty with Dr. Porter. ALLERGIES: NO KNOWN DRUG ALLERGIES. CURRENT MEDICATIONS: - fluoxetine 20 mg - iron 325 mg - methimazole 10 mg - metoprolol 25 mg - potassium chloride 10 mg - propranolol 10 mg - sulfasalazine 500 mg - torsemide 10 mg PAST MEDICAL HISTORY: Ulcerative colitis and thyroid disease. PAST SURGICAL HISTORY: None. FAMILY HISTORY: Noncontributory. SOCIAL HISTORY: The patient does not use alcohol and is a nonsmoker. PHYSICAL EXAMINATION : Height 4 feet 10 inches, weight 134, temperature 97.9, blood pressure 140/70, pulse 72, respiration 14. HEENT: Normocephalic, atraumatic. No apparent distress. Neck: Supple and nontender with no lymphadenopathy or jugular venous distention (JVD). CARDIOVASCULAR: S1, S2 auscultated with no murmurs, rubs or gallops. LUNGS: Clear to auscultation bilaterally with no wheezes, rales, rhonchi. ABDOMEN: Soft, nontender. EXTREMITIES: The left knee shows intact overlying skin with no rashes, erythema or warmth. The left lower extremity is well perfused. LABORATORIES: Red count 3.75, hemoglobin 10, hematocrit 32.2, white count 8.1, ESR 60, PT 13.1, INR 1.02, BUN 12, creatinine 0.61. EKG: Normal sinus rhythm with sinus arrhythmia. Chest x-ray: Elevation of right hemidiaphragm, unchanged. Otherwise no acute cardiopulmonary processes. Medical optimization by Dr. Long, not available for review today. IMPRESSION: Left knee symptomatic osteoarthritis with degenerative changes. PLAN: Consented for left total knee arthroplasty with Dr. Porter, pending medical optimization.
[~2019-02-27] VITALS: Ht 144.8 cm; Wt 28.4 kg
[2019-02-27] VITALS (7 sets, daily range): BP systolic 112–126; BP diastolic 53–77
[~2019-02-27 05:41] MED LIST changes: +FLUO20CA20 PO; -FLUO20CA8 PO; -OMEP40CA2 PO; +OMEP40CA97 PO; -XARE10TA PO
[2019-02-27] MEDS ORDERED: fentaNYL 100 MCG/2 ML INJECTION (J3010) IV SCH (06:00)
[2019-02-27] MEDS ORDERED: BUPIVACAINE HCL 0.25% 30 ML VIAL As Ordered ONE (06:37)
[2019-02-27] MEDS ORDERED: MIDAZOLAM INJ 2 MG/2 ML VIAL (J2250) As Ordered ONE ×2 (06:37→07:10)
[2019-02-27] MEDS ORDERED: fentaNYL 100 MCG/2 ML INJECTION (J3010) As Ordered ONE (06:37)
[2019-02-27] MEDS ORDERED: ceFAZolin SOD 2 GM in IV 1 EA IV ONE (07:00)
[2019-02-27] MEDS ORDERED: LR 1,000 ML IV ONE (07:00)
[2019-02-27] MEDS ORDERED: ACETAMINOPHEN 500 MG TAB PO ONE (07:00)
[2019-02-27] MEDS ORDERED: BUPIVACAINE HCL 0.25% 10 ML VIAL As Ordered ONE (07:09)
[2019-02-27] MEDS ORDERED: ceFAZolin 1GM INJ (J0690 PER 500MG) As Ordered ONE (07:09)
[2019-02-27] MEDS ORDERED: TRANEXAMIC ACID 100 MG/ML 10ML VIAL As Ordered ONE (07:09)
[2019-02-27] MEDS ORDERED: propofoL 200 MG/20 ML VIAL As Ordered ONE ×2 (07:10→10:03)
[2019-02-27] MEDS ORDERED: EPINEPHrine INJ 1 MG/ML 1ML VIAL As Ordered ONE (07:10)
[2019-02-27] MEDS ORDERED: BUPIVACAINE LIPOSOME/PF 1.3% 20ML VIAL (13.3MG/ML)(EXPAREL)(C9290 PER1MG) As Ordered ONE (07:10)
[2019-02-27] MEDS ORDERED: ONDANSETRON 4MG/2ML VIAL (J2405) As Ordered ONE (07:10)
[2019-02-27] MEDS ORDERED: LIDOCAINE 2% INJ 100 MG/5 ML SDV (FOR ANES.) As Ordered ONE (07:10)
[2019-02-27] MEDS ORDERED: dexameTHASONE 4 MG/ML 1ML VIAL (J1100) As Ordered ONE (07:12)
[2019-02-27] MEDS ORDERED: MIDAZOLAM INJ 2 MG/2 ML VIAL (J2250) IV ONE (08:00)
[2019-02-27] MEDS ORDERED: fentaNYL 100 MCG/2 ML INJECTION (J3010) IV ONE (08:00)
[2019-02-27] MEDS: POTASSIUM CHLORIDE 10 MEQ SR TABLET PO SCH (09:00)
[2019-02-27] MEDS ORDERED: fentaNYL 100 MCG/2 ML INJECTION (J3010) IV PRN (09:30)
[2019-02-27] MEDS ORDERED: HYDROMORPHONE HCL 0.5 MG/ 0.5 ML SYRINGE (J1170 PER 1) IV PRN (09:30)
[2019-02-27] MEDS ORDERED: LR 1,000 ML IV SCH ×3 (09:30→13:15)
[2019-02-27] MEDS ORDERED: METOCLOPRAMIDE INJ 10MG/2ML VIAL (J2765) IV PRN (09:30)
[2019-02-27] MEDS ORDERED: oxyCODONE 5MG TAB PO PRN (09:30)
[2019-02-27] MEDS ORDERED: ONDANSETRON 4MG/2ML VIAL (J2405) IV PRN ×2 (09:30→09:45)
[2019-02-27] MEDS ORDERED: ACETAMINOPHEN TAB 650MG DOSE (2X325MG) PO PRN (09:45)
[2019-02-27] MEDS ORDERED: MORPHINE 4 MG/ML 1ML VIAL/SYRINGE (J2270) IV PRN ×2 (09:45)
[2019-02-27] MEDS ORDERED: FLEET ENEMA PR PRN (09:45)
[2019-02-27] MEDS ORDERED: PERCOCET 5MG/325MG TAB PO PRN ×2 (09:45→14:15)
--- NOTE | 2019-02-27 09:52 | REP ---
Left knee two views postoperative study: There is a total knee arthroplasty. The components are tightly applied and in satisfactory positions alignment. There is intra-articular air as a postsurgical change. There are skin jose luis. Electronically Signed by Ramiro Anthony MD 02/27/2019 09:44 A
[2019-02-27] MEDS ORDERED: BUPIVACAINE HCL 0.25% 30 ML VIAL ONE (10:35)
[2019-02-27] MEDS ORDERED: dexameTHASONE 10 MG/1 ML VIAL PRES.FREE (J1100) ONE (10:35)
[2019-02-27] MEDS ORDERED: LIDOCAINE 1% MDV 20ML VIAL ONE (10:35)
[2019-02-27] MEDS ORDERED: PNEUMOCOCCAL VACCINE 0.5ML SYRINGE(90732) PNEUMOVAX 23 IM PRN (14:00)
--- NOTE | 2019-02-27 14:36 | HPEPDOC ---
General Date of Admission Feb 27, 2019 at 05:41 Date of Service: Feb 27, 2019 Chief Complaint The patient is a 73-year-old female admitted with a reason for visit of Left Knee Arthritis. Source: Patient, Old records History of Present Illness Consultation report. Consultation requested by Orthopedic service. Consultation for management of medical comorbidities. HPI: 73 year old female with PMH of hyperthyroidism, ulcerative colitis, pulmonary embolism not on any anticoagulation was admitted for elective left total knee replacement. Pateint had uneventful surgery on 02/27/19. At present patient complains of throbbing pain at the surgical site of left knee , 8/10 in intensity , no radiation. denies any chest pain or sob, denies any nausea or vomiting. Home Medications Scheduled Ferrous Sulfate (Ferrous Sulfate) 325 Mg Tab, 325 MG PO DAILY, (Reported) Fluoxetine Hcl (Fluoxetine HCl) 20 Mg Cap, 20 MG PO DAILY, (Reported) Methimazole (Methimazole) 10 Mg Tab, 20 MG PO DAILY, (Reported) Potassium Chloride (Potassium Chloride) 10 Meq Cap, 10 MEQ PO DAILY, (Reported) Sulfasalazine (Sulfasalazine) 500 Mg Tab, 500 MG PO QID, (Reported) Vedolizumab (Entyvio) 300 Mg Inj, 300 MG IV Q8WEKS, (Reported) Scheduled PRN Propranolol HCl (Propranolol HCl) 10 Mg Tablet, 10 MG PO BIDP PRN for palpitations, (Reported) Torsemide (Torsemide) 10 Mg Tab, 10 MG PO DAILY PRN for FLUID BUILD UP, (Reported) TAKES SECOND DOSE IF WEIGHT IS UP MORE THAN 2 LBS Allergies Coded Allergies: No Known Drug Allergies (Verified Allergy, Unknown, 02/27/19) Past Medical History Medical History Hyperthyroidism s/p radioactive iodine treatmenton 01/24/19 Ulcerative colitis exacerbation. H/o Clostridium (C) difficile colitis status post stool transplant Pulmonary emboli. Diastolic congestive heart failure. Iron-deficiency anemia. Incisional hernia Surgical History tonsillectomy segmental colectomy for ulcerative colitis with colostomy creation and then clostomy reversal. right knee replacement Family History Significant Family History: Heart disease (father), Other (sister ulcerative colitis) Social History * Smoker: Denies Alcohol: Denies Drugs: denies A-FIB/CHADSVASC A-FIB History Current/History of A-Fib/PAF?: No Review of Systems Constitutional: Denies: Chills, Fever, Night Sweats Eyes: Denies: Pain, Vision change ENT: Denies: Head Aches, Ear Pain, Dysphagia Skin: Denies: Rash, Lesions, Breakdown Pulmonary: Denies: Dyspnea, Cough Cardiovascular: Denies: Chest Pain, Palpitations, Orthopnea, Paroxysmal Noc. Dyspnea, Lt Headedness Gastrointestinal: Denies: Nausea, Vomiting, Abdominal Pain, Diarrhea Genitourinary: Denies: Dysuria, Frequency, Incontinence, Retention Musculoskeletal: Reports: Joint Pain; Denies: Neck Pain, Back Pain, Muscle Pain, Spasms Neurological: Denies: Weakness, Numbness, Change in speech, Confusion Physical Examination General Exam: Positive: Alert, Cooperative, No Acute Distress Eye Exam: Positive: PERRLA, Conjunctiva & lids normal, EOMI; Negative: Sclera icteric ENT Exam: Positive: Atraumatic, Mucous membr. moist/pink, Pharynx Normal Neck Exam: Positive: Supple; Negative: JVD, thyromegaly Chest Exam: Positive: Clear to auscultation, Normal air movement Heart Exam: Positive: Rate Normal, Regular Rhythm, Normal S1, Normal S2; Negative: Murmurs, Rubs Abdomen Exam: Positive: Normal bowel sounds, Soft; Negative: Tenderness, Hepatospenomegaly Extremity Exam: Positive: Normal pulses; Negative: Clubbing, Cyanosis, Edema Skin Exam: Positive: Nl turgor and temperature; Negative: Breakdown, Lesion Vital Signs Vital Signs Date Time Temp Pulse Resp B/P (MAP) Pulse Ox O2 Delivery O2 Flow Rate FiO2 02/27/19 11:55 97 16 111/54 (73) 98 3 02/27/19 10:27 97.7 Assessment/Plan 73 year old female with PMH of hyperthyroidism, ulcerative colitis, pulmonary embolism not on any anticoagulation was admitted for elective left total knee replacement. Pateint had uneventful surgery on 02/27/19. S/p Left total knee replacement for advanced OA pain control and dvt prophylaxis as per ortho PT and OT as per ortho recommendation. Hyperthyroidism s/p radioactive iodine treatment on 01/24/19 continue methimazole and propanolol prn Ulcerative colitis s/p segmental colectomy. Has large midline insicion with incisionl hernia a the top of the incision continue sulfasalazine. on biologics also no issues at present. H/o Clostridium (C) difficile colitis status post stool transplant no issues at present H/o Pulmonary emboli. off anticoagulation for many years. Diastolic congestive heart failure. at present patient is euvolemic. will resume torsemide from tomorrow. Iron-deficiency anemia. Incisional hernia DVT prophylaxis xarelto Plan / VTE VTE Prophylaxis Ordered?: Yes VAN BAIG MD Feb 27, 2019 14:36
[2019-02-27] MEDS: ceFAZolin SOD 2 GM in IV 1 EA IV SCH ×2 (14:38→20:14)
[2019-02-27] MEDS: PERCOCET 5MG/325MG TAB PO PRN ×2 (14:39→20:14)
[2019-02-27] MEDS ORDERED: TORSEMIDE 10 MG TABLET PO PRN (14:45)
[2019-02-27] MEDS ORDERED: PROPRANOLOL 10 MG TAB PO PRN (14:45)
[2019-02-27] MEDS: sulfaSALAzine 500 MG TABEC PO SCH ×2 (16:28→20:14)
--- NOTE | 2019-02-27 19:36 | RO ---
DATE OF PROCEDURE: 02/27/2019 PREPROCEDURE DIAGNOSIS: Left knee degenerative arthritis. POSTPROCEDURE DIAGNOSIS: Left knee degenerative arthritis. PROCEDURE: Left total knee arthroplasty using a size 4 cruciate-retaining Attune femoral component, size 4 tibial tray, 10 mm rotating platform polyethylene insert, and a 32 mm polyethylene button. Prosthesis was made by Rc and Rc/DePuy. SURGEON: Dr. Julia Porter ROOF BOLTER HELPER: Mr. Amrit Palacios ANESTHESIA: Spinal with left femoral nerve block. COMPLICATIONS: None. SPECIMENS: Joint surface. FINDINGS: She had severe osteoporosis. DESCRIPTION OF PROCEDURE: Antibiotics were given intravenously preoperatively, then a successful left femoral nerve block and then spinal anesthetic was induced. Tourniquet was placed on the left upper thigh and not inflated. The left lower extremity was carefully prepped and draped in the usual sterile fashion, then elevated, and after appropriate time-out, tourniquet was inflated. Then, a longitudinal incision was made for a medial parapatellar approach to the knee. Bovie cautery was used to coagulate the crossing vessels. Medial parapatellar arthrotomy was performed. Subperiosteal dissection around the proximal and medial tibial plateau and lateral tibial plateau was performed, and the patella was everted and the knee was flexed, the anterior cruciate ligament (ACL) debrided. Drill was placed down the center of the femoral canal followed by the intramedullary radha and the distal femoral cutting jig set at 9 mm resection level at 5 degree valgus for a left knee. Block was pinned into position. Then, the AP sizing jig was used to measure for a size 4. 3 degrees of external rotation dialed in for a left knee. The pins were placed followed by the 4-in-1 block, and then the anterior, posterior, chamfer cuts performed. The sulcus cut jig was then applied and then the sulcus cut performed. Then, we exposed the proximal tibia, used the extramedullary alignment jig to estimate being parallel to the mechanical axis, referencing off the medial tibial condyle, 4 mm resection level. Block was pinned into position. Secondary check with the extramedullary radha confirmed that we appeared to be parallel to the mechanical axis. Proximal tibial osteotomy thus performed. Lamina melter assistant was placed laterally, and we performed a completion medial meniscectomy and debridement of the posteromedial osteophytes, and removal of a large loose body in the posteromedial aspect of the knee. We then placed the lamina melter assistant medially and performed a completion lateral meniscectomy and debridement of the posterolateral osteophytes. The spacer block at 10 mm had the best stability to varus/valgus stress testing, both in flexion and in extension. We then removed the spacer, exposed the proximal tibia, sized for a #4 tray which was pinned into position, followed by the reamer and broach. The trial polyethylene was placed, followed by the trial femoral component. Brought the knee into extension, everted the patella, performed a patellar osteotomy, sized for a 32 button. Lug holes drilled, trial placed, patellofemoral tracking was anatomic. We drilled the lug holes for the femur at this point, then removed all the trial components. Exparel was placed in the subperiosteal tissues around the distal femur and the proximal tibia, and I prepared the bony surfaces for cementing with a copious amount of pulsatile lavage irrigant solution, as my virtual office assistant, Mr. Amrit Palacios, mixed the cement on the back table. He was also critical to the success of this difficult surgical procedure by helping to manipulate the knee, helped to apply appropriate soft tissue retraction, helped to mix the cement, helped to close the wound, amongst many other tasks to allow me to perform the operation smoothly, efficiently and safely. We then cemented the tibial tray, removed excess cement, placed the polyethylene, then cemented the femoral component, removed excess cement and brought the knee out in extension, cemented the patellar button, held it with a clamp, then removed the excess cement, held the knee in full extension until the cement hardened. As we were awaiting this, we copiously pulsatile lavage irrigated out the knee joint, and then instilled tranexamic acid. The apex of the arthrotomy was closed with two #1 PDS sutures. The medial parapatellar area was closed with a #1 PDS suture, then a double-armed #1 Stratafix was used to close the capsule, then the tourniquet was released. We copiously irrigated the tissues, then closed the deep subdermal tissues with interrupted #2-0 PDS sutures, skin was closed with jose luis, covered by an Optifoam dry sterile bulky dressing. She was then transferred to the recovery room in stable condition. There were no intraoperative complications.
[2019-02-28] MEDS: ceFAZolin SOD 2 GM in IV 1 EA IV SCH (02:29)
[2019-02-28 03:22] VITALS: BP 127/61
[2019-02-28] MEDS: PERCOCET 5MG/325MG TAB PO PRN ×4 (05:05→20:10)
[2019-02-28 06:00] VITALS: BP 127/62
[2019-02-28 06:00] LABS: HEMATOCRIT 30.7 % (36.0-47.0); HEMOGLOBIN 9.5 g/dl (12.0-15.5); MEAN CORPUSCULAR HEMOGLOBIN 28.4 pg (27.0-33.0); MEAN CORPUSCULAR HGB CONC 30.9 g/dl (32.0-36.5); MEAN CORPUSCULAR VOLUME 91.6 fl (80.0-96.0); PLATELET COUNT, AUTOMATED 239 10^3/uL (150-450); RED BLOOD COUNT 3.35 10^6/uL (4.00-5.40); WHITE BLOOD COUNT 10.8 10^3/uL (4.0-10.0)
[2019-02-28 06:21] LABS: INR 1.18; PROTHROMBIN TIME 14.7 SECONDS (11.8-14.0)
[2019-02-28] MEDS ORDERED: PERC5TAB12 PO (06:35)
[2019-02-28] MEDS ORDERED: XARE10TA PO (06:35)
[2019-02-28] MEDS: MOM 30ML SUSPENSION UDC PO SCH (08:12)
[2019-02-28] MEDS: FLUoxetine 20 MG CAP PO SCH (08:13)
[2019-02-28] MEDS: MIRALAX *UNIT DOSE* 17GM PACKET PO SCH (08:13)
[2019-02-28] MEDS: SENOKOT S TAB PO SCH ×2 (08:13→20:09)
[2019-02-28] MEDS: POTASSIUM CHLORIDE 10 MEQ SR TABLET PO SCH (08:13)
[2019-02-28] MEDS: sulfaSALAzine 500 MG TABEC PO SCH ×4 (08:13→20:09)
[2019-02-28] MEDS: FERROUS SULFATE 325MG TAB PO SCH (08:13)
[2019-02-28 10:00] VITALS: BP 145/82
--- NOTE | 2019-02-28 10:52 | IPNPDOC ---
Subjective Date Seen The patient was seen on 02/28/19. Subjective Chief Complaint/HPI complains of appropriate knee pain at the surgical site. No diarrhea or abdominal pain , no fver or chills, no chest pain or SOb . Has been out of bed to bathroom. Objective Physical Examination General Exam: Positive: Alert, Cooperative, No Acute Distress Eye Exam: Positive: PERRLA, Conjunctiva & lids normal, EOMI; Negative: Sclera icteric ENT Exam: Positive: Atraumatic, Mucous membr. moist/pink, Pharynx Normal Neck Exam: Positive: Supple; Negative: JVD, thyromegaly Chest Exam: Positive: Clear to auscultation, Normal air movement Heart Exam: Positive: Rate Normal, Regular Rhythm, Normal S1, Normal S2; Negative: Murmurs, Rubs Abdomen Exam: Positive: Normal bowel sounds, Soft; Negative: Tenderness, Hepatospenomegaly Extremity Exam: Positive: Normal pulses; Negative: Clubbing, Cyanosis, Edema Skin Exam: Positive: Nl turgor and temperature; Negative: Breakdown, Lesion Assessment /Plan Assessment 73 year old female with PMH of hyperthyroidism, ulcerative colitis, pulmonary embolism not on any anticoagulation was admitted for elective left total knee replacement. Pateint had uneventful surgery on 02/27/19. S/p Left total knee replacement for advanced OA pain control and dvt prophylaxis as per ortho PT and OT as per ortho recommendation. Hyperthyroidism s/p radioactive iodine treatment on 01/24/19 continue methimazole and propanolol prn Ulcerative colitis s/p segmental colectomy. Has large midline insicion with incisionl hernia a the top of the incision continue sulfasalazine. on biologics also no issues at present. H/o Clostridium (C) difficile colitis status post stool transplant no issues at present H/o Pulmonary emboli. off anticoagulation for many years. Diastolic congestive heart failure. at present patient is euvolemic. will resume torsemide from tomorrow. Iron-deficiency anemia. Incisional hernia DVT prophylaxis xarelto Plan/VTE VTE Prophylaxis Ordered?: Yes VS, I&O, 24H, Fishbone Vital Signs/I&O Vital Signs Date Time Temp Pulse Resp B/P (MAP) Pulse Ox O2 Delivery O2 Flow Rate FiO2 02/28/19 10: 16 02/28/19 06:00 97.6 70 127/62 (83) 99 02/27/19 11:55 3 I&O- Last 24 Hours up to 6 AM 02/28/19 05:59 Intake Total 2310 ml Output Total 620 ml Balance 1690 ml Laboratory Data 24H LABS Laboratory Tests 2 02/28/19 05:36: Nucleated Red Blood Cells % (auto) 0.0, Prothrombin Time 14.7H, Prothromb Time International Ratio 1.18 CBC/BMP Laboratory Tests 02/28/19 05:36 Red Blood Count 3.35 L, Mean Corpuscular Volume 91.6, Mean Corpuscular Hemoglobin 28.4, Mean Corpuscular Hemoglobin Concent 30.9 L, Red Cell Distribution Width 15.9 H VAN BAIG MD Feb 28, 2019 10:52
[2019-02-28 11:42] LABS: BLOOD UREA NITROGEN 16 MG/DL (7-18); CALCIUM LEVEL 9.5 MG/DL (8.8-10.2); CARBON DIOXIDE LEVEL 28 MEQ/L (21-32); CHLORIDE LEVEL 109 MEQ/L (98-107); CREATININE FOR GFR 0.74 MG/DL (0.55-1.30); GLOMERULAR FILTRATION RATE > 60.0 (>39); GLUCOSE, FASTING 134 MG/DL (70-100); POTASSIUM SERUM 4.1 MEQ/L (3.5-5.1); SODIUM LEVEL 142 MEQ/L (136-145)
[2019-02-28 14:00] VITALS: BP 129/60
[2019-02-28] MEDS ORDERED: RIVAROXABAN 10 MG TAB (XARELTO) PO SCH (18:00)
[2019-02-28 22:00] VITALS: BP 148/69
[2019-03-01] MEDS: PERCOCET 5MG/325MG TAB PO PRN ×3 (02:53→13:15)
[2019-03-01 05:58] LABS: HEMATOCRIT 30.1 % (36.0-47.0); HEMOGLOBIN 9.4 g/dl (12.0-15.5); MEAN CORPUSCULAR HEMOGLOBIN 28.5 pg (27.0-33.0); MEAN CORPUSCULAR HGB CONC 31.2 g/dl (32.0-36.5); MEAN CORPUSCULAR VOLUME 91.2 fl (80.0-96.0); PLATELET COUNT, AUTOMATED 251 10^3/uL (150-450); WHITE BLOOD COUNT 9.4 10^3/uL (4.0-10.0)
[2019-03-01 06:00] VITALS: BP 144/72
[2019-03-01] MEDS: SENOKOT S TAB PO SCH (07:44)
[2019-03-01] MEDS: POTASSIUM CHLORIDE 10 MEQ SR TABLET PO SCH (07:45)
[2019-03-01] MEDS: FLUoxetine 20 MG CAP PO SCH (07:45)
[2019-03-01] MEDS: FERROUS SULFATE 325MG TAB PO SCH (07:45)
[2019-03-01] MEDS: sulfaSALAzine 500 MG TABEC PO SCH (07:45)
[2019-03-01] MEDS: MIRALAX *UNIT DOSE* 17GM PACKET PO SCH (07:47)
[2019-03-01] MEDS: MOM 30ML SUSPENSION UDC PO SCH (07:47)
--- NOTE | 2019-03-09 22:03 | DSES ---
DATE OF ADMISSION: 02/27/2019 DATE OF DISCHARGE: 03/01/2019 ATTENDING PHYSICIAN: Dr. Julia Porter ADMISSION DIAGNOSIS Left knee degenerative arthritis. OTHER DIAGNOSES Osteoporosis. Ulcerative colitis. Thyroid disease. Depression. DISCHARGE DIAGNOSIS: Left knee degenerative arthritis, status post left total knee arthroplasty. HISTORY: The patient is a 73-year-old female that had progressively worsening left knee pain and stiffness. She failed to improve with conservative measures. She continued to have symptoms with weightbearing activities and activities of daily living. She consented for an elective left total knee arthroplasty with Dr. Porter for continued symptoms. OPERATION PERFORMED: Left total knee arthroplasty. HOSPITAL COURSE: The patient underwent a left total knee arthroplasty under spinal anesthesia with femoral nerve block. Surgery was uneventful and her hospital course was without complication. The patient was up with physical therapy per their protocol, weightbearing as tolerated on the left lower extremity. She was discharged on oral pain medications and will resume her preoperative medications and diet. The patient will use her thromboembolic deterrent stockings and take her anticoagulant as directed to prevent deep venous thrombosis. The patient will follow up in our office in 12-14 days for wound check and staple removal. She is encouraged to contact our office sooner if there is any increase in pain, redness, drainage, numbness or tingling in the extremity, fever greater than 101 degrees or any other concerns. Please see medical records for additional details. CAMID
== END 2019-03-01 13:45 | disposition home or self-care (01) | DRG 470 ==
LOC: M OR 05:41 → M MS5PR 12:00
PROVIDERS: ADMIT Orthopaedic Surgery; ATTEND Orthopaedic Surgery
PROC: 0SRD0J9 Replacement of Left Knee Joint with Synthetic Substitute, Cemented, Open Approach (ICD-10-PCS; principal; 2019-02-27 07:30)
DX: M17.12 Unilateral primary osteoarthritis, left knee (principal); K51.90 Ulcerative colitis, unspecified, without complications; I50.32 Chronic diastolic (congestive) heart failure; E05.90 Thyrotoxicosis, unspecified without thyrotoxic crisis or storm; M81.0 Age-related osteoporosis without current pathological fracture; D50.9 Iron deficiency anemia, unspecified; Z96.651 Presence of right artificial knee joint; Z90.49 Acquired absence of other specified parts of digestive tract; Z86.711 Personal history of pulmonary embolism; Z79.899 Other long term (current) drug therapy; Z87.891 Personal history of nicotine dependence

== ENCOUNTER → 2019-03-22 | Outpatient (REF) | payer MEDICARE, OTHER ==
[~2019-03-22] MED LIST changes: +ACET-897 PO; -FLUO20CA20 PO; +FLUO20CA8 PO; +XARE10TA PO
[2019-03-22 15:10] LABS: FREE T4 0.6 NG/DL (0.76-1.46); THYROID STIMULATING HORMONE 0.111 uIU/ML (0.358-3.740)
== END ==
LOC: M LABDRAW1 14:33 → M LAB REF 14:33
PROVIDERS: ATTEND Internal Medicine Endocrinology, Diabetes & Metabolism
DX: E05.00 Thyrotoxicosis with diffuse goiter without thyrotoxic crisis or storm (principal)

== ENCOUNTER 2019-03-23 08:41 | Outpatient (CLI) | payer MEDICARE, OTHER ==
[~2019-03-23] VITALS: Ht 147.3 cm; Wt 60.0 kg
[~2019-03-23 08:41] MED LIST changes: -ACET-897 PO
[2019-03-23 08:45] VITALS: BP 147/67
[2019-03-23] MEDS ORDERED: ACETAMINOPHEN TAB 650MG DOSE (2X325MG) PO ONE (09:00)
[2019-03-23] MEDS ORDERED: diphenhydrAMINE 25 MG CAP PO ONE (09:00)
[2019-03-23] MEDS ORDERED: VEDOLIZUMAB 300 MG in NS 250 ML IV ONE (09:00)
[2019-03-23] MEDS ORDERED: ACET-897 PO (09:15)
[2019-03-23 10:10] VITALS: BP 143/64
== END 2019-03-23 10:10 | disposition home or self-care (01) ==
LOC: M INFU 08:41
PROVIDERS: ATTEND Internal Medicine Gastroenterology
DX: K50.90 Crohn's disease, unspecified, without complications (principal)
CPT/HCPCS: 96365; J3380

== ENCOUNTER → 2019-04-10 | Outpatient (REF) | payer MEDICARE, OTHER ==
[~2019-04-10] MED LIST changes: +ACET-897 PO
== END ==
LOC: M LABDRAW1 15:35
PROVIDERS: ATTEND Internal Medicine Endocrinology, Diabetes & Metabolism
DX: E89.0 Postprocedural hypothyroidism (principal)

== ENCOUNTER 2019-05-07 09:18 | Outpatient (CLI) | payer MEDICARE, OTHER ==
[~2019-05-07] VITALS: Ht 147.3 cm; Wt 60.0 kg
[~2019-05-07 09:18] MED LIST changes: +FLUO20CA20 PO; -FLUO20CA8 PO
[2019-05-07 09:20] VITALS: BP 135/60
[2019-05-07] MEDS ORDERED: VEDOLIZUMAB 300 MG in NS 250 ML IV ONE (09:30)
[2019-05-07] MEDS ORDERED: diphenhydrAMINE 25 MG CAP PO ONE (09:30)
[2019-05-07] MEDS ORDERED: ACETAMINOPHEN TAB 650MG DOSE (2X325MG) PO ONE (09:30)
[2019-05-07 10:31] VITALS: BP 134/63
== END 2019-05-07 10:35 | disposition home or self-care (01) ==
LOC: M INFU 09:18
PROVIDERS: ATTEND Internal Medicine Gastroenterology
DX: K50.90 Crohn's disease, unspecified, without complications (principal)
CPT/HCPCS: 96365; J3380

== ENCOUNTER 2019-07-02 05:11 | Inpatient (IN) | payer MEDICARE, OTHER ==
[~2019-07-02] VITALS: Ht 147.3 cm; Wt 74.7 kg
[~2019-07-02 05:11] MED LIST changes: -FLUO20CA19; +FLUO20CA22
[2019-07-02 05:50] LABS: BASO # 0.1 10^3/uL (0.0-0.2); BASO % 0.6 % (0.0-1.0); EOS # 0.1 10^3/uL (0.0-0.5); EOS % 1.2 % (0.0-3.0); HEMATOCRIT 43.3 % (36.0-47.0); HEMOGLOBIN 13.7 g/dl (12.0-15.5); LYMPH # 0.8 10^3/uL (1.5-5.0); LYMPH % 7.5 % (24.0-44.0); MEAN CORPUSCULAR HEMOGLOBIN 28.4 pg (27.0-33.0); MEAN CORPUSCULAR HGB CONC 31.6 g/dl (32.0-36.5); MEAN CORPUSCULAR VOLUME 89.6 fl (80.0-96.0); MONO # 0.8 10^3/uL (0.0-0.8); MONO % 7.5 % (0.0-5.0); NEUTROPHILS % 82.8 % (36.0-66.0); PLATELET COUNT, AUTOMATED 309 10^3/uL (150-450); RED BLOOD COUNT 4.83 10^6/uL (4.00-5.40); WHITE BLOOD COUNT 10.9 10^3/uL (4.0-10.0)
[2019-07-02] MEDS ORDERED: ISOVUE-370 76% 100ML VIAL (Q9967) As Ordered ONE (05:54)
[2019-07-02 06:23] LABS: ALBUMIN 3.3 GM/DL (3.2-5.2); BILIRUBIN,DIRECT 0.1 MG/DL (0.0-0.2); BILIRUBIN,TOTAL 0.5 MG/DL (0.2-1.0); CALCIUM LEVEL 10.2 MG/DL (8.8-10.2); CREATININE FOR GFR 0.98 MG/DL (0.55-1.30); GLOMERULAR FILTRATION RATE 59.4 (>39); POTASSIUM SERUM 3.5 MEQ/L (3.5-5.1); TOTAL PROTEIN 7.4 GM/DL (6.4-8.2)
[2019-07-02] MEDS ORDERED: MORPHINE 2 MG/ML 1ML VIAL (J2270) IV ONE (06:45)
[2019-07-02] MEDS ORDERED: PANTOPRAZOLE 40MG INJ (PROTONIX) (C9113) IV ONE (06:45)
[2019-07-02] MEDS ORDERED: NS 500 ML IV ONE (06:45)
[2019-07-02] MEDS ORDERED: ONDANSETRON 4MG/2ML VIAL (J2405) IV ONE (06:45)
[2019-07-02] MEDS ORDERED: GI COCKTAIL 50ML BTL(HYOSCYAMINE/MAALOX/LIDOCAINE VISCOUS)(1:3:1) PO ONE (06:45)
--- NOTE | 2019-07-02 07:46 | REPVR ---
PROCEDURE INFORMATION: Exam: CT Abdomen And Pelvis With Contrast Exam date and time: 07/02/2019 6:41 AM Age: 73 years old Clinical indication: Abdominal pain; Generalized; Additional info: Abd pain TECHNIQUE: Imaging protocol: Computed tomography of the abdomen and pelvis with intravenous contrast. Radiation optimization: All CT scans at this facility use at least one of these dose optimization techniques: automated exposure control; mA and/or kV adjustment per patient size (includes targeted exams where dose is matched to clinical indication); or iterative reconstruction. Contrast material: ISOVUE 370; Contrast volume: 100 ml; Contrast route: IV; COMPARISON: CT ABD/PEL W/IV ORAL CONTRAS 02/10/2018 7:39 PM FINDINGS: Lungs: There is a partially imaged nodule in the lingula measuring 5 mm on axial image 1. Diaphragm: There is elevation of the right hemidiaphragm. Liver: Normal. No mass. Gallbladder and bile ducts: The gallbladder is massively distended measuring around 17.3 x 7.0 cm containing multiple large gallstones measuring up to 2.5 centimetres. There is no CBD dilatation. There is mild intrahepatic biliary ductal dilatation. Pancreas: There is a 1.3 cm hypodensity likely a cyst in the pancreatic head on axial image 52. Spleen: Normal. No splenomegaly. Adrenals: There is a 1 cm nodule in the lateral limb of the left adrenal gland. Kidneys and ureters: There are small bilateral renal stones measuring 4 mm in the right lower renal pole and 2 mm in the left lower renal pole. There are small bilateral renal hypodensities likely cysts measuring up to 1.2 cm on the right and 1.7 cm on the left. There is no ureteral stones or hydronephrosis. Stomach and bowel: The patient is status post partial colonic resection with grossly intact end to side anastomosis. There are multiple proximal dilated small bowel loops measuring up to 0.3 cm with fold thickening and hyperemia. Transition into small lower bowel loops is noted at the inferior aspect of the epigastric hernia. Appendix: No evidence of appendicitis. Intraperitoneal space: Unremarkable. No free air. No significant fluid collection. Vasculature: Unremarkable. No abdominal aortic aneurysm. Lymph nodes: See Soft Tissues Finding. Bladder: Unremarkable as visualized. Reproductive: The uterus is atrophic. There is no adnexal mass. Bones/joints: There is L3-L4 significant disc degenerative changes. There is lower lumbar spine facet arthrosis. Soft tissues: There is laxity of the anterior abdominal wall with an epigastric hernia containing portion of the transverse colon. There is stranding of the fat surrounding the transverse colon with multiple shotty lymph nodes. IMPRESSION: 1. Laxity of the anterior abdominal wall with an epigastric hernia containing compressed transverse colon with stranding and edema superficial to the hernial sac and deep to the hernial sac along the root of the mesenteric vessels with numerous shotty lymph nodes. Incarceration or strangulation cannot be excluded specially in view of the presence of multiple dilated proximal/jejunal bowel loops measuring up to 4.2 cm with progressive decrease in caliber of small bowel loops inferior to the previously described hernia. Early complete or partial bowel obstruction is suspected. Findings can also be due to marked inflammatory/infectious enteritis. Correlate clinically. Follow-up is recommended. 2. Massively distended/hydropic gallbladder measuring up to 17.3 x 7.0 cm containing multiple large gallstones. No definite CT findings of cholecystitis seen however given the extent gallbladder distension underlying cholecystitis is suspected. 3. Mild intrahepatic biliary ductal dilatation likely due to compression of the hepatic ducts at the hilar region by the massively distended gallbladder. 4. Bilateral non-obstructing renal stones. 5. Bilateral renal hypodensities likely cysts with relatively mild high internal density due to pseudo enhancement. Further characterization with ultrasound may be obtained. 6. 1.3 cm pancreatic head hypodensity likely cyst. Further characterization with MRI with MRCP is suggested. 7. 1.0 cm indeterminate left adrenal gland nodule. This can be further characterized with MRI. 8. Status post partial distal colonic resection with grossly intact colo colonic anastomosis. 9. 5 mm partially imaged lingular nodule. - For patients at low risk (minimal or absent history of smoking and of other known risk factors), no routine follow-up is indicated. - For patients at high risk (history of smoking or of other known risk factors), consider optional CT Chest at 12 months. Mariely Larsen, Fleischner Society, 2017. COMMENT: Consistent with the [employer]'s Incidental Findings Committee white paper (J Am Vincenzo Radiol 2017): Any incidental adrenal lesion less than 1.0 cm is likely benign. No follow-up imaging is recommended for these lesions per consensus recommendations based on imaging criteria. Further lab evaluation could be pursued if warranted based on clinical findings. Electronically signed by: Allen White On 07/02/2019 07:46:10 AM
[2019-07-02] MEDS ORDERED: MORPHINE 2 MG/ML 1ML VIAL (J2270) IV PRN ×2 (08:00→09:45)
[2019-07-02] MEDS ORDERED: SULF50TA PO (08:26)
[2019-07-02] MEDS ORDERED: ONDANSETRON 4MG/2ML VIAL (J2405) IV PRN (09:45)
[2019-07-02 10:37] LABS: INR 1.15; PARTIAL THROMBOPLASTIN TIME 26.6 SECONDS (25.0-38.4); PROTHROMBIN TIME 14.4 SECONDS (11.8-14.0)
[2019-07-02 12:00] VITALS: BP 129/68
[2019-07-02] MEDS: LR 1,000 ML IV SCH ×2 (12:07→20:00)
--- NOTE | 2019-07-02 14:31 | REP ---
KUB: Two views. HISTORY: NG tube placement. Comparison films are from February 11, 2018. FINDINGS: Contrast enhancement is seen in the urine in the collecting system of both kidneys and in the urinary bladder. There are surgical sutures in the left lower pelvis and vascular calcification is seen. There are scattered abdominal surgical clips. A nasogastric tube has been passed and is seen terminating in the body of the stomach. IMPRESSION: NG tube in good position in the body of the stomach. Electronically Signed by Leif Rico MD 07/02/2019 05:26 P
--- NOTE | 2019-07-02 19:36 | ECGEPIP ---
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
[2019-07-02] MEDS: KETOROLAC 30 MG/ML VIAL (J1885) IV PRN (20:42)
[2019-07-02 22:00] VITALS: BP 124/78
[2019-07-03] MEDS: LR 1,000 ML IV SCH ×3 (04:13→20:37)
[2019-07-03 06:00] VITALS: BP 131/81
[2019-07-03 06:55] LABS: BASO # 0.1 10^3/uL (0.0-0.2); BASO % 1.1 % (0.0-1.0); EOS # 0.4 10^3/uL (0.0-0.5); EOS % 6.4 % (0.0-3.0); HEMATOCRIT 41.9 % (36.0-47.0); HEMOGLOBIN 12.5 g/dl (12.0-15.5); LYMPH # 1.1 10^3/uL (1.5-5.0); LYMPH % 17.1 % (24.0-44.0); MEAN CORPUSCULAR HEMOGLOBIN 27.7 pg (27.0-33.0); MEAN CORPUSCULAR HGB CONC 29.8 g/dl (32.0-36.5); MEAN CORPUSCULAR VOLUME 92.9 fl (80.0-96.0); MONO # 0.7 10^3/uL (0.0-0.8); MONO % 10.3 % (0.0-5.0); NEUTROPHILS # 4.2 10^3/uL (1.5-8.5); NEUTROPHILS % 64.8 % (36.0-66.0); PLATELET COUNT, AUTOMATED 206 10^3/uL (150-450); RED BLOOD COUNT 4.51 10^6/uL (4.00-5.40); WHITE BLOOD COUNT 6.4 10^3/uL (4.0-10.0)
[2019-07-03 07:18] LABS: BLOOD UREA NITROGEN 17 MG/DL (7-18); CALCIUM LEVEL 9.1 MG/DL (8.8-10.2); CARBON DIOXIDE LEVEL 30 MEQ/L (21-32); CHLORIDE LEVEL 108 MEQ/L (98-107); CREATININE FOR GFR 0.79 MG/DL (0.55-1.30); GLOMERULAR FILTRATION RATE > 60.0 (>39); GLUCOSE, FASTING 81 MG/DL (70-100); POTASSIUM SERUM 3.4 MEQ/L (3.5-5.1); SODIUM LEVEL 142 MEQ/L (136-145)
--- NOTE | 2019-07-03 07:27 | HPE ---
DATE OF ADMISSION: 07/02/2019 REASON FOR ADMISSION: Small bowel obstruction. HISTORY OF PRESENT ILLNESS: The patient is a 73-year-old woman with a long history of ulcerative colitis. She had undergone an exploratory laparotomy for a colonic obstruction back in 2006. The sigmoid was resected and a Isabel's pouch and colostomy were created. She had subsequently required treatment for a large ventral hernia. In December of 2008, she underwent closure of her colostomy with a ventral hernia repair. In July 2009, a recurrent ventral hernia was repaired with placement of PROCEED mesh and removal of her previous "biologic" mesh. She has for the last year or so been on some ENTYVIO for her ulcerative colitis. The patient was seen for an abdominal issue in January of 2018 when she was admitted with a small intestinal obstruction secondary to adhesions. Her obstruction resolved readily with observation and nasogastric (NG) decompression. She had a followup colonoscopy in March 2018 that showed persistent changes of colitis. She most recently had undergone surgery in February 2019 when she underwent a left total knee arthroplasty. She had been doing well recently. On Tuesday, July 01, she noted the onset of some abdominal discomfort. After dinner, this increased and she felt quite bloated. She had some nausea and a sensation of reflux. On one occasion, she vomited a small amount of phlegm. She reports that she developed a sweaty feeling. She was hoping that this would resolve spontaneously so she remained at home. Then in the grease packer of July 02 at about 4 o'clock, she developed diarrhea and had a large amount of loose stool. Shortly thereafter, she presented to the emergency department for evaluation. She had some laboratory studies performed and then had a CT scan of the abdomen and pelvis. The CT scan showed a markedly distended gallbladder with stones present as well as some inflammatory changes of the bowel and evidence for a ventral hernia. I was consulted to evaluate the patient and she is now admitted with a diagnosis of a small intestinal obstruction. ALLERGIES: The patient reports NO KNOWN DRUG ALLERGIES. MEDICATIONS PRIOR TO ADMISSION: Include Tylenol 1000 mg by mouth three times daily as needed for pain, fluoxetine 20 mg by mouth daily, potassium chloride 10 mEq by mouth daily, propranolol 10 mg by mouth twice daily as needed for palpitations, sulfasalazine 500 mg by mouth four times a day, torsemide 10 mg by mouth daily, ENTYVIO 300 mg injected IV every 8 weeks. Today was her designated day to receive her next dose of ENTYVIO. PAST SURGICAL HISTORY: Significant for a tonsillectomy in the distant past. She has had multiple colonoscopies. She had undergone a sigmoid colectomy with colostomy and Isabel's pouch back in about 2006. She has undergone a left total knee arthroplasty in February 2019 and had undergone a right knee replacement approximately three or four years earlier. She has had several surgical procedures for ventral hernias associated with her prior abdominal surgery. MEDICAL HISTORY: The patient apparently is having issues with hyperthyroidism and reports that she has undergone one round of radioactive iodine treatment in January and is due to have repeat radioactive iodine treatment here in the next few weeks. She has a history of ulcerative colitis which has been better controlled with the ENTYVIO over the past year or so. She does have a history of a previous pulmonary embolism, but has not recently been on any anticoagulation. She has diastolic congestive heart failure. Apparently in the past, she had Clostridium difficile which was treated with a stool transplant. FAMILY HISTORY: Significant for heart disease in her father and ulcerative colitis in her sister. SOCIAL HISTORY: The patient is a . She is a nonsmoker and denies any significant alcohol intake. REVIEW OF SYSTEMS: Reveals that she has not had any recent chest pain or palpitations. She has no shortness of breath, cough or wheezing. She denies any melena or hematochezia. She reports that she has been having a lot of intestinal gas recently which she had been passing regularly until yesterday and today. She denies any dysuria or hematuria. She has been doing fairly well with her recent knee replacement. She denies any history of seizure or stroke. PHYSICAL EXAMINATION: Pleasant older woman lying quietly on the hospital stretcher. She appears quite comfortable at present. Her most recent vital signs show a blood pressure of 135/64. Most recent pulse is 75. She was afebrile in the emergency department. She is alert and oriented. Skin is warm and dry. Sclerae are anicteric. Mucous membranes are moist. Neck is supple. Heart exam shows a regular rate and rhythm in the 60s and 70s. The lungs are clear to auscultation bilaterally. The abdomen shows a long midline scar. The abdomen is somewhat obese. She does have active bowel sounds in all four quadrants. High in the epigastrium along the midline, the abdomen is quite soft and there is the impression that the abdominal wall was somewhat thinned, but there is no definite protrusion in this area. The abdomen is soft throughout and without discrete point tenderness. No masses appreciated. Extremities show no peripheral edema. She has palpable pedal pulses and palpable radial pulses. LABORATORY STUDIES: Include a CBC with a differential count that reveals a white count of 11,000, hemoglobin of 14, hematocrit of 43 and a platelet count of 309,000. Differential count shows 83% neutrophils, 8% lymphocytes and 8% monocytes. Chemistry profile shows normal electrolytes with BUN of 20, creatinine of 1 and a glucose of 163. Liver function tests are normal with the exception of the alkaline phosphatase mildly elevated at 209. Total protein and albumin are normal. Lipase is normal at 184 and a lactic acid was normal at 1.9. Coagulation factors are normal with a minimal elevation of the prothrombin time to 14.4. Urinalysis is not strongly suggestive of urinary tract infection. CT scan of the abdomen and pelvis was obtained. I reviewed these images personally. The abdomen is quite distended by fluid. She has evidence of prior surgery with an anastomosis in the rectosigmoid region. There is some thinning of the abdominal wall in the epigastrium with the transverse colon crossing over the stomach just deep to this area. The gallbladder is markedly distended and appears to contain some large stones, but there is no dilation of the biliary tree. There are some moderately dilated loops of proximal small bowel in the left midabdomen and left upper quadrant with distal small bowel that is decompressed. There is no free air or significant free fluid seen. IMPRESSION: The patient's history and CT scan would seem to support a diagnosis of at least a partial small bowel obstruction secondary to adhesions. She has evidence of inflammation in her transverse colon in particular consistent with her known history of ulcerative colitis. She also has a markedly distended gallbladder with stones which was noted in a very similar state in late [address] scan at that time and has not changed significantly. There is no sign of acute inflammation in the gallbladder. PLAN: The patient will be admitted to the hospital for management of what appears to be a small bowel obstruction. A nasogastric tube will be placed. She will be started on IV maintenance fluid. She will receive analgesics as necessary. She will receive Protonix routinely as well as anti-nausea medications as needed. I will encourage her to be up out of bed, but she will be kept nothing by mouth (n.p.o.) other than a few ice chips. We will see how her bowel function progresses over the next day or so. When she had been admitted in January 2018, her symptoms remitted quite rapidly after admission and I would hope that on this occasion she would also successfully clear this possible obstruction. The patient had an opportunity to ask questions and is in agreement with the current plan.
[2019-07-03] MEDS: PANTOPRAZOLE 40MG INJ (PROTONIX) (C9113) IV SCH (07:58)
[2019-07-03] MEDS: KETOROLAC 30 MG/ML VIAL (J1885) IV PRN (07:59)
[2019-07-03 14:00] VITALS: BP 138/68
[2019-07-03] MEDS ORDERED: PROPRANOLOL 10 MG TAB PO PRN (15:45)
--- NOTE | 2019-07-03 16:06 | IPN ---
DATE: 07/03/2019 HISTORY: The patient is now 1 day post admission for abdominal pain with some dilated proximal small bowel consistent with a small bowel obstruction from adhesions. Her nasogastric (NG) tube has remained in place. She reports that her pain has resolved and she is passing some flatus. Vital signs show that she has been afebrile since yesterday with a pulse in the 60s and a normal blood pressure. Room air oxygen saturations are normal. Intake and Output: The patient's urine output is good. The patient is lying quietly in bed. She is alert and oriented and appears comfortable. Heart exam shows a regular rhythm and her lungs are clear. The abdomen was mildly obese but soft and without any tenderness. She has bowel sounds present. Laboratory studies today show a white count of 6, hemoglobin 12, hematocrit 42 and a platelet count of 206,000. Her differential count shows 65% neutrophils, 17% lymphocytes and 10% monocytes. Chemistry profile shows a sodium of 142, potassium 3.4, chloride 108, CO2 of 30, BUN of 17, creatinine 0.8 and a glucose of 81. IMPRESSION: The patient's pain has resolved and she has passed some flatus. Her NG output has been quite low. All signs suggest that her bowel obstruction has resolved. PLAN: Her NG tube I removed. She will be started on some liquids today and I will cut back on her IV fluids somewhat. If she is doing well in the morning, we can advance her diet and consider sending her home later in the day.
[2019-07-03] MEDS: POTASSIUM CHLORIDE 10 MEQ SR TABLET PO SCH ×2 (16:30→20:43)
[2019-07-03] MEDS: sulfaSALAzine 500 MG TABEC PO SCH ×2 (16:30→20:43)
[2019-07-03 22:00] VITALS: BP 132/76
[2019-07-04 06:00] VITALS: BP 136/78
[2019-07-04] MEDS: sulfaSALAzine 500 MG TABEC PO SCH ×2 (08:14→12:58)
[2019-07-04] MEDS: PANTOPRAZOLE 40MG INJ (PROTONIX) (C9113) IV SCH (08:14)
[2019-07-04] MEDS ORDERED: FLUoxetine 20 MG CAP PO SCH (09:00)
[2019-07-04 14:00] VITALS: BP 145/68
--- NOTE | 2019-07-05 20:33 | IPN ---
DATE: 07/04/2019 HISTORY The patient was admitted on July 02 with abdominal pain and evidence for a small bowel obstruction on CT scan. A nasogastric tube was placed and she decompressed nicely. Her NG tube was removed yesterday and she has been tolerating clear liquids well. I reviewed her intake and output earlier this morning and advanced her to a regular diet. She has been eating this well with no nausea. She reports passing gas and having a bowel movement earlier today. Vital signs: Shows that she has been afebrile over the past 24 hours with a pulse in the 60s and a normal blood pressure. Intake and output shows that yesterday she had 1140 mL by mouth (p.o.) p.o. with 750 mL of urine output recorded. PHYSICAL EXAMINATION The patient is lying quietly in the hospital bed looking quite comfortable. Heart exam shows a regular rhythm. The lungs are clear and the abdomen is mildly obese but soft and nontender. She has bowel sounds present. The patient has no new labs or imaging. IMPRESSION The patient is tolerating a regular diet and having regular flatus without any abdominal pain. She has clearly resolved her bowel obstruction. PLAN I counseled the patient that she can be discharged today. She does not need to followup routinely in my office. I invited her to call us or return to the office if she develops recurring symptoms. If they are quite severe then she should present to the emergency department. I counseled her that there is nothing in particular that she can do to prevent a recurrence of an obstruction in the future. She should resume her preadmission medications and continue her regular follow up with her primary physician. She can pursue activity as tolerated.
== END 2019-07-04 15:55 | disposition home or self-care (01) | DRG 389 ==
LOC: M ED 05:11 → EDBD 05:11 → M ED INP 09:39 → ENRESERV 10:04 → M MSPAV 11:06
PROVIDERS: ADMIT Surgery; ATTEND Surgery
DX: K56.51 Intestinal adhesions [bands], with partial obstruction (principal); K51.90 Ulcerative colitis, unspecified, without complications

== ENCOUNTER 2019-07-06 12:48 | Outpatient (CLI) | payer MEDICARE, OTHER ==
[~2019-07-06] VITALS: Ht 149.9 cm; Wt 60.0 kg
[~2019-07-06 12:48] MED LIST changes: +SULF50TA PO
[2019-07-06] MEDS ORDERED: VEDOLIZUMAB 300 MG in NS 250 ML IV ONE (13:30)
[2019-07-06] MEDS ORDERED: diphenhydrAMINE 25 MG CAP PO ONE (13:30)
[2019-07-06] MEDS ORDERED: ACETAMINOPHEN TAB 650MG DOSE (2X325MG) PO ONE (13:30)
[2019-07-06 13:41] VITALS: BP 140/67
[2019-07-06 14:29] VITALS: BP 127/61
== END 2019-07-06 14:30 | disposition home or self-care (01) ==
LOC: M INFU 12:48
PROVIDERS: ATTEND Internal Medicine Gastroenterology
DX: K50.90 Crohn's disease, unspecified, without complications (principal)
CPT/HCPCS: 96365; J3380

== ENCOUNTER → 2019-07-15 | Outpatient (CLI) | payer MEDICARE, OTHER ==
[2019-07-15 14:14] LABS: FREE T4 0.98 NG/DL (0.76-1.46); THYROID STIMULATING HORMONE 0.041 uIU/ML (0.358-3.740)
== END ==
LOC: M LAB 13:22
PROVIDERS: ATTEND Internal Medicine Endocrinology, Diabetes & Metabolism
DX: E89.0 Postprocedural hypothyroidism (principal)

== ENCOUNTER → 2019-08-16 | Outpatient (REF) | payer MEDICARE, OTHER ==
[2019-08-16 14:12] LABS: FREE T4 1.48 NG/DL (0.76-1.46); THYROID STIMULATING HORMONE 0.006 uIU/ML (0.358-3.740)
== END ==
LOC: M LABDRAW1 10:36
PROVIDERS: ATTEND Internal Medicine Endocrinology, Diabetes & Metabolism
DX: E89.0 Postprocedural hypothyroidism (principal)

== ENCOUNTER 2019-08-31 08:41 | Outpatient (CLI) | payer MEDICARE, OTHER ==
[~2019-08-31] VITALS: Ht 149.9 cm; Wt 60.0 kg
[2019-08-31 08:45] VITALS: BP 129/60
[2019-08-31] MEDS ORDERED: ACETAMINOPHEN TAB 650MG DOSE (2X325MG) PO ONE (09:00)
[2019-08-31] MEDS ORDERED: VEDOLIZUMAB 300 MG in NS 250 ML IV ONE (09:00)
[2019-08-31] MEDS ORDERED: diphenhydrAMINE 25MG CAP PO ONE (09:00)
[2019-08-31 10:15] VITALS: BP 122/57
== END 2019-08-31 10:15 | disposition home or self-care (01) ==
LOC: M INFU 08:41
PROVIDERS: ATTEND Internal Medicine Gastroenterology
DX: K50.90 Crohn's disease, unspecified, without complications (principal)
CPT/HCPCS: 96365; J3380

== ENCOUNTER 2019-10-19 10:44 | Outpatient (CLI) | payer MEDICARE, OTHER ==
[~2019-10-19 10:44] MED LIST changes: +SULF500T41; +SULF500T41 PO; -SULF50TA; -SULF50TA PO
[2019-10-19 14:10] LABS: FREE T4 1.31 NG/DL (0.76-1.46); THYROID STIMULATING HORMONE 0.013 uIU/ML (0.358-3.740)
== END 2019-10-26 17:07 | disposition home or self-care (01) ==
LOC: M PLALAB 10:44
PROVIDERS: ATTEND Internal Medicine Endocrinology, Diabetes & Metabolism
DX: E89.0 Postprocedural hypothyroidism (principal)

== ENCOUNTER 2019-10-26 08:58 | Outpatient (CLI) | payer MEDICARE, OTHER ==
[~2019-10-26] VITALS: Ht 149.9 cm; Wt 60.0 kg
[~2019-10-26 08:58] MED LIST changes: -COUM1TAB14 PO; +COUM4TAB8 PO; -COUM7.5T PO; +COUM7.5T6 PO
[2019-10-26 09:00] VITALS: BP 132/72
[2019-10-26] MEDS ORDERED: ACETAMINOPHEN TAB 650MG DOSE (2X325MG) PO ONE (09:15)
[2019-10-26] MEDS ORDERED: diphenhydrAMINE 25MG CAP PO ONE (09:15)
[2019-10-26] MEDS ORDERED: VEDOLIZUMAB 300 MG in NS 250 ML IV ONE (09:15)
[2019-10-26 10:10] VITALS: BP 128/57
== END 2019-10-26 10:10 | disposition home or self-care (01) ==
LOC: M INFU 08:58
PROVIDERS: ATTEND Internal Medicine Gastroenterology
DX: K50.90 Crohn's disease, unspecified, without complications (principal)
CPT/HCPCS: 96365; J3380

== ENCOUNTER → 2019-11-16 | Outpatient (CLI) | payer MEDICARE, OTHER ==
[2019-11-16 15:02] LABS: FREE T4 1.01 NG/DL (0.76-1.46); THYROID STIMULATING HORMONE 0.055 uIU/ML (0.358-3.740)
== END ==
LOC: M PLALAB 12:00
PROVIDERS: ATTEND Internal Medicine Endocrinology, Diabetes & Metabolism
DX: E89.0 Postprocedural hypothyroidism (principal)

== ENCOUNTER → 2019-11-20 | Outpatient (CLI) | payer MEDICARE, OTHER | LOC: M RAD 10:21 | PROVIDERS: ATTEND Internal Medicine Endocrinology, Diabetes & Metabolism | DX: E05.00 Thyrotoxicosis with diffuse goiter without thyrotoxic crisis or storm (principal) | CPT/HCPCS: 79005; A9517 ==

== ENCOUNTER → 2019-12-18 | Outpatient (REF) | payer MEDICARE, OTHER ==
[~2019-12-18] MED LIST changes: +CEFU50TA PO; +DOXY100T PO; +ELIQ5TAB PO; +LEVO125T4 PO; +LOVE0.6I2 SC; +MUCI1TAB16 PO
[2020-01-22 13:36] LABS: FREE T4 0.74 NG/DL (0.76-1.46); THYROID STIMULATING HORMONE 6.97 uIU/ML (0.358-3.740)
== END ==
LOC: M LAB REF 15:41
PROVIDERS: ATTEND Internal Medicine Endocrinology, Diabetes & Metabolism
DX: E89.0 Postprocedural hypothyroidism (principal)

== ENCOUNTER 2019-12-21 08:43 | Outpatient (CLI) | payer MEDICARE, OTHER ==
[~2019-12-21 08:43] MED LIST changes: -CEFU50TA PO; -DOXY100T PO; -ELIQ5TAB PO; -LEVO125T4 PO; -LOVE0.6I2 SC; -MUCI1TAB16 PO
[2019-12-21] MEDS ORDERED: VEDOLIZUMAB 300MG VIAL (ENTYVIO) (J3380 PER 1MG) ONE (08:59)
[2019-12-21] MEDS ORDERED: SODIUM CHLORIDE 0.9% 250ML ONE (08:59)
== END 2019-12-21 10:10 | disposition home or self-care (01) ==
LOC: M INFU 08:43
PROVIDERS: ATTEND Internal Medicine Gastroenterology
DX: K50.90 Crohn's disease, unspecified, without complications (principal)
CPT/HCPCS: 96365; J3380

== ENCOUNTER → 2020-02-12 | Outpatient (CLI) | payer MEDICARE, OTHER ==
[~2020-02-12] MED LIST changes: +CEFU50TA PO; +DOXY100T PO; +ELIQ5TAB PO; +LEVO125T4 PO; +LOVE0.6I2 SC; +MUCI1TAB16 PO
[2020-02-12 15:44] LABS: FREE T4 1.96 NG/DL (0.76-1.46); THYROID STIMULATING HORMONE < 0.005 uIU/ML (0.358-3.740)
== END ==
LOC: M PLALAB 13:22
PROVIDERS: ATTEND Internal Medicine Endocrinology, Diabetes & Metabolism
DX: E89.0 Postprocedural hypothyroidism (principal)

== ENCOUNTER 2020-02-15 08:44 | Outpatient (CLI) | payer MEDICARE, OTHER ==
[~2020-02-15] VITALS: Ht 149.9 cm; Wt 60.8 kg
[~2020-02-15 08:44] MED LIST changes: -CEFU50TA PO; -DOXY100T PO; -ELIQ5TAB PO; -LEVO125T4 PO; -LOVE0.6I2 SC; -MUCI1TAB16 PO
[2020-02-15 08:50] VITALS: BP 138/63
[2020-02-15] MEDS ORDERED: diphenhydrAMINE 25MG CAP PO ONE (09:00)
[2020-02-15] MEDS ORDERED: ACETAMINOPHEN TAB 650MG DOSE (2X325MG) PO ONE (09:00)
[2020-02-15] MEDS ORDERED: VEDOLIZUMAB 300 MG in NS 250 ML IV ONE (09:00)
[2020-02-15 10:13] VITALS: BP 137/65
== END 2020-02-15 10:15 | disposition home or self-care (01) ==
LOC: M INFU 08:44
PROVIDERS: ATTEND Internal Medicine Gastroenterology
DX: K50.90 Crohn's disease, unspecified, without complications (principal)

== ENCOUNTER 2020-02-18 03:50 | Inpatient (IN) | payer MEDICARE, OTHER ==
[~2020-02-18] VITALS: Ht 147.3 cm; Wt 83.3 kg
[2020-02-18] MEDS ORDERED: LEVO125T4 PO (04:08)
[2020-02-18] MEDS ORDERED: NS 1,000 ML IV ONE (05:00)
[2020-02-18] MEDS ORDERED: ONDANSETRON 4MG/2ML VIAL IV ONE (05:00)
[2020-02-18 05:26] LABS: BASO # 0.1 10^3/uL (0.0-0.2); BASO % 0.6 % (0.0-1.0); EOS # 0.3 10^3/uL (0.0-0.5); EOS % 2.1 % (0.0-3.0); HEMATOCRIT 41.8 % (36.0-47.0); HEMOGLOBIN 13.1 g/dl (12.0-15.5); LYMPH # 0.8 10^3/uL (1.5-5.0); LYMPH % 5.4 % (24.0-44.0); MEAN CORPUSCULAR HEMOGLOBIN 28.1 pg (27.0-33.0); MEAN CORPUSCULAR HGB CONC 31.3 g/dl (32.0-36.5); MEAN CORPUSCULAR VOLUME 89.5 fl (80.0-96.0); MONO # 1.3 10^3/uL (0.0-0.8); MONO % 8.6 % (0.0-5.0); NEUTROPHILS # 12.6 10^3/uL (1.5-8.5); NEUTROPHILS % 82.7 % (36.0-66.0); PLATELET COUNT, AUTOMATED 204 10^3/uL (150-450); RED BLOOD COUNT 4.67 10^6/uL (4.00-5.40); WHITE BLOOD COUNT 15.3 10^3/uL (4.0-10.0)
[2020-02-18 05:55] LABS: ALBUMIN 3.1 GM/DL (3.2-5.2); ALT/SGPT 14 U/L (12-78); BILIRUBIN,DIRECT 0.1 MG/DL (0.0-0.2); BILIRUBIN,TOTAL 0.4 MG/DL (0.2-1.0); CK-MB VALUE MASS < 1.0 NG/ML (<3.6); CPK CREATINE PHOSPHOKINASE 41 U/L (26-192); LIPASE 139 U/L (73-393); MB/CK RELATIVE INDEX 2.44 (< OR =4); TOTAL PROTEIN 7.1 GM/DL (6.4-8.2); TROPONIN I 0.08 NG/ML (< 0.10)
[2020-02-18] MEDS ORDERED: ISOVUE-370 76% 100ML VIAL As Ordered ONE (06:01)
--- NOTE | 2020-02-18 06:49 | REPVR ---
PROCEDURE INFORMATION: Exam: CT Head Without Contrast Exam date and time: 02/18/2020 6:31 AM Age: 74 years old Clinical indication: Pain; Headache; Additional info: Dizziness TECHNIQUE: Imaging protocol: Computed tomography of the head without contrast. Radiation optimization: All CT scans at this facility use at least one of these dose optimization techniques: automated exposure control; mA and/or kV adjustment per patient size (includes targeted exams where dose is matched to clinical indication); or iterative reconstruction. COMPARISON: No relevant prior studies available. FINDINGS: Brain: There is no acute intracranial hemorrhage or mass effect. Mild diffuse volume loss is within the range of normal for patient age. There are small vessel ischemic changes within the periventricular and subcortical white matter, but the normal alvarez/white matter delineation is maintained. Cerebral ventricles: No ventriculomegaly. Bones/joints: Unremarkable. No acute fracture. Paranasal sinuses: Visualized sinuses are unremarkable. No fluid levels. Mastoid air cells: Visualized mastoid air cells are well aerated. Soft tissues: Unremarkable. IMPRESSION: No acute intracranial hemorrhage or edema. Electronically signed by: Oyl Alvarez On 02/18/2020 06:48:32 AM
--- NOTE | 2020-02-18 07:03 | REPVR ---
PROCEDURE INFORMATION: Exam: CT Abdomen And Pelvis With Contrast Exam date and time: 02/18/2020 6:31 AM Age: 74 years old Clinical indication: Abdominal pain; Additional info: Right sided abd pain, n/v/d TECHNIQUE: Imaging protocol: Computed tomography of the abdomen and pelvis with intravenous contrast. Radiation optimization: All CT scans at this facility use at least one of these dose optimization techniques: automated exposure control; mA and/or kV adjustment per patient size (includes targeted exams where dose is matched to clinical indication); or iterative reconstruction. Contrast material: ISO 370; Contrast volume: 100 ml; Contrast route: INTRAVENOUS (IV); COMPARISON: No relevant prior studies available. FINDINGS: Lungs: Mild infiltrates in the lingula and right lower lobe. Extensive pulmonary emboli in the lower lungs. Mediastinal space: Small gastroesophageal sliding type hiatal hernia. Liver: 4 cm liver cyst. Extremely narrowed inferior vena cava at the liver, possibly due to the severely expanded gallbladder pressing on it. Gallbladder and bile ducts: Marked gallbladder distension with multiple gallstones, large stone lodged in the gallbladder neck is likely obstructing the gallbladder. Ill-defined geographic hypodense 3 x 7.4 cm liver lesion adjacent to the gallbladder, question gallbladder rupture intrahepatically versus cyst. Correlate with priors, not made available at the time of this dictation. Mild intrahepatic biliary duct dilatation. Pancreas: Cystic pancreatic lesion measuring 14 mm, could represent a small cyst, pseudocyst, or pancreatic cystic neoplasm. Additional smaller cystic lesion in the pancreas measuring 8 mm also seen. Spleen: Normal. No splenomegaly. Adrenals: Unchanged 1 cm left adrenal nodule or adrenal gland thickening. Kidneys and ureters: Small, less than 5 mm, renal hypodensity. Highly likely to be benign and does not require follow-up imaging or biopsy per ACR. Stomach and bowel: Sigmoid bowel anastomosis. Appendix: No evidence of appendicitis. Intraperitoneal space: Unremarkable. No free air. No significant fluid collection. Vasculature: Unremarkable. No abdominal aortic aneurysm. Lymph nodes: Scattered small unchanged mesenteric root lymph nodes. Tiny distal paraesophageal lymph nodes. Numerous clips. Urinary bladder: Unremarkable as visualized. Reproductive: Unremarkable as visualized. Bones/joints: Multilevel moderate spinal stenosis. Soft tissues: Diastasis of the abdominus rectus with protruding bowel in the midline. Small right inguinal hernia. IMPRESSION: 1. Mild infiltrates in the lingula and right lower lobe. 2. Extensive pulmonary emboli in the lower lungs. 3. Marked gallbladder distension with multiple gallstones, large stone lodged in the gallbladder neck is likely obstructing the gallbladder. 4. Cystic pancreatic lesion measuring 14 mm, could represent a small cyst, pseudocyst, or pancreatic cystic neoplasm. Additional smaller cystic lesion in the pancreas measuring 8 mm also seen. 5. Extremely narrowed inferior vena cava at the liver, possibly due to the severely expanded gallbladder pressing on it. Electronically signed by: Elliot Thornton On 02/18/2020 07:02:27 AM
[2020-02-18] MEDS ORDERED: KCL 10MEQ/100ML SWI (KRUN) 10 MEQ in IV 1 EA IV ONE (08:00)
[2020-02-18 09:14] LABS: INR 1.03; PROTHROMBIN TIME 13.8 SECONDS (12.5-14.3)
[2020-02-18 09:15] LABS: PARTIAL THROMBOPLASTIN TIME 24.1 SECONDS (24.2-38.5)
[2020-02-18 09:16] LABS: CK-MB VALUE MASS 1.6 NG/ML (<3.6); MB/CK RELATIVE INDEX 3.56 (< OR =4); TROPONIN I 0.22 NG/ML (< 0.10)
[2020-02-18] MEDS ORDERED: TORS10TA3 PO (09:55)
[2020-02-18] MEDS: NS 1,000 ML IV SCH ×2 (11:43→21:45)
--- NOTE | 2020-02-18 12:34 | HPEPDOC ---
[facility] Medical History & Physical Date of Admission Feb 18, 2020 Date of Service: Feb 18, 2020 Attending Physician: Kalyani Mancilla MD History and Physical CHIEF COMPLAINT: n/v HISTORY OF PRESENT ILLNESS: Patient is a 74 y/o female with past medical history of ulcerative colitis, hyperthyroidism, history of pulmonary emboli, chronic pancreatic cyst, chronic cholelithiasis who presented to [facility] emergency room after having acute onset of nausea vomiting beginning early this morning. According to the patient, she ate a chicken salad sandwich last evening with applesauce. At approximately 1 AM she woke up with acute substernal burning in the chest, nonradiating, 10/10, intermittent, relieved with nothing. This burning was associated with acute onset of nausea with vomiting 20 nonbloody times, dizziness, lightheadedness, increased weakness, diaphoresis, feeling clammy, acute nonbloody diarrhea and shortness of breath. The patient's came to the emergency room for further evaluation due to the nausea persisting. She denies abdominal pain, fevers, sick contacts, recent traveling but admits to occasional palpitations and mild cough and shortness of breath which has lasted several wee ks. The emergency room vital signs showed the patient was hypertensive with systolic as high as [address] abd/pelvis showed mild infiltrates in the lingula and right lower lobe, extensive pulmonary emboli in the lower lungs, marked gallbladder distension with multiple gallstones/ large stone lodged in the gallbladder neck is likely obstructing the gallbladder, cystic pancreatic lesion measuring 14 mm( small cyst vs. pseudocyst, or pancreatic cystic neoplasm), smaller cystic lesion in the pancreas measuring 8 mm, extremely narrowed inferior vena cava at the liver possibly due to the severely expanded gallbladder pressing on it. Trop elevated at 0.22, WBC 15k , LA 2.4, potassium 2.8. ECG showed NSR. Dr. Houston (surgery) discussed case with ER provider, who will consult on case. Patient admitted for n/v possibly 2/2 to acute cardiac event vs. worsening cholelithiasis, ? community acquired PNA vs. 2/2 to ?food poisoning, hypertensive urgency. Of note, patient has an extensive GI history and known cholelithiasis which has been only monitored as o/p. Surgery was never done to take out gallbladder due to patient not being symptomatic. Surgery would be complicated because patient h as history of large anterior abdominal mesh placement when patient had colectomy many years ago. Patient is known to Dr. Araujo's surgical service. REVIEW OF SYSTEMS: CONSTITUTIONAL: Denies unexplained weight gain or weight loss, fever, night sweats EYES: Denies eye drainage, eye pain, visual changes, dry/irritated eye EARS, NOSE, MOUTH, THROAT: Denies difficulty hearing, ringing in ears, mouth sores, loose teeth, sore throat, facial numbness or pain NECK: Denies swollen glands CARDIOVASCULAR: Denies irregular heartbeat, swelling of feet or legs, pain in legs with walking RESPIRATORY: Denies night sweats, wheezing, sputum production, oxygen at home, coughing up blood, cough lasting > 1 month GASTROINTESTINAL: Denies constipation, bloody stool, heartburn GENITOURINARY: Denies painful urination, bloody urine, frequent urination, urgency, leaking urine, impotence MUSCULOSKELETAL: Denies joint pain, muscle pain, leg swelling INTEGUMENTARY: Denies rash, itching, new skin lesion, change in existing skin lesion, hair loss or increase, breast changes. NEUROLOGICAL: Denies headaches, numbness or tingling PSYCHIATRIC: Denies depression, anxiety, recurrent bad thoughts, mood swings, hallucinations PAST MEDICAL HISTORY: 1. Ulcerative colitis 2. Hyperthyroidism with iatrogenic hypothyroidism currently, s/p radioactive iodine ablation x 2 3. Hx of pulmonary emboli no on anticoagulation 4. Chronic pancreatic cyst 5. Chronic cholelithiasis 6. Depression PAST SURGICAL HISTORY: 1. B/l knee replacement surgeries 2. Rectocele surgery 3. tonsillectomy 4. Colectomy with colostomy placement 5. Colostomy bag removal FAMILY HISTORY: Father: CAD, HTN. at 78 y/o Mother: health. at 93 y/o SOCIAL HISTORY: Prior smoker , half pack per day for 15 years. Quit in 1999. Denies alcohol or drug use. Uses a cane to ambulate. She lives alone in local area. She is retired from [employer] in 2013.PCP- Dr. Long, GI- Dr. Kiran, Cardiology- Dr. Bolton, Endocrine- Dr. Del Toro. ALLERGIES: Please see below. HOME MEDICATIONS: Please see below. PHYSICAL EXAMINATION: CONSTITUTIONAL: No acute distress, resting comfortably, AAO x 3 EYES: PERRLA, EOM intact HENT, MOUTH: Normocephalic, atraumatic, moist mucous membranes, NECK: SUPPLE, no JVD, no lymphadenopathy, no carotid bruit CV: Regular rate and rhythm, S1S2 normal, no murmurs/rubs/gallops RESPIRATORY: Clear to auscultation bilaterally, no rales/rhonchi/wheezes GI: Multiple well healed scars vertical and horizontal, BS positive in 4 quadrants, soft, nontender, nondistended, no rebound or guarding, no organomegaly : Deferred MUSCULOSKELETAL: Normal ROM. No cyanosis, clubbing, swelling, joint deformity. +1 pitting edema b/l lower ext INTEGUMENTARY: Intact, no rashes, no lesions, no erythema NEUROLOGIC: Cranial Nerves II-XII are intact, no focal deficits PSYCHIATRIC: Mood and affect are normal LABORATORY DATA: Please see below IMAGING: CT abd/pelvis: 1. Mild infiltrates in the lingula and right lower lobe. 2. Extensive pulmonary emboli in the lower lungs. 3. Marked gallbladder distension with multiple gallstones, large stone lodged in the gallbladder neck is likely obstructing the gallbladder. 4. Cystic pancreatic lesion measuring 14 mm, could represent a small cyst, pseudocyst, or pancreatic cystic neoplasm. Additional smaller cystic lesion in the pancreas measuring 8 mm also seen. 5. Extremely narrowed inferior vena cava at the liver, possibly due to the severely expanded gallbladder pressing on it. CT head: No acute intracranial abnormality ASSESSMENT: 74 y/o female with past medical history of ulcerative colitis, hyperthyroidism, history of pulmonary emboli, chronic pancreatic cyst, chronic cholelithiasis admitted for nausea/vomiting possibly 2/2 to acute cardiac event vs. worsening cholelithiasis vs. 2/2 to ? food poisoning, community acquired PNA, elevated troponin r/o ACS vs. 2/2 to PE, worsening bilateral pulmonary emboli, hypertensive urgency. PLAN: 1. Nausea/vomiting possibly 2/2 to acute cardiac event vs. worsening choleli thiasis vs. 2/2 to ? food poisoning -WBC 15K, acute shortness of breath, diaphoresis, n/v/d, chest burning. Chronic RUQ pain, not acutely worsening and not illicited on exam -CT abd/pelvis above -Per surgery, size of gallbladder unchanged from prior CT scan on file. No surgery planned currently -C/w IVFs, NPO, zofran, abx. Advance to [facility] when no longer having nausea/vomiting -F/u daily labs, trop, GI panel if patient to have more diarrhea -Surgery consulted to follow in the event that this evolves into surgical case. 2. Bilateral pulmonary emboli. -Currently saturating well on RA, some SOB with n/v this AM. Trop 0.22, possibly 2/2 to PE -Unknown as to why patient was not placed back on oral AC after last admission -Starting on therapeutic dosing lovenox BID in event surgery is necessary in next 24 hours. -F/u hypercoagulable workup, echocardiogram, LE doppler 3. Community aquired PNA -CT above -Ceftriaxone, doxycycline -Sputum, blood cultures f/u 4.Chest burning/pain r/o ACS vs. 2/2 to GERD -Not pleuritic in nature or recreatable -Trop 0.08--> 0.22, f/u third trop. No ECG changes. -VS stable -Discussed with Dr. Bolton in ER -Monitor on tele -PPI, Nitro PRN 5. Elevated troponin likely 2/2 to PE -See problem #2 6. Hypertensive urgency likely 2/2 to anxiety, no hx of HTN -BP systolic >200mmHg in ER initially -Improved to systolic 150's -Monitor with regular VS while on fluids -Hydralazine IV 7. Hyperthyroidism s/p radioactive iodine ablation x 2 -Last TSH on file <0.005 from 02/12/20 -TSH pending this admission -Follows with Dr. Del Toro o/p 6. Chronic pancreatic cyst. -Lipase wnl -Monitoring 7. Depression -STable. -Resume home med when taking PO 8. GI px -PPI 9. DVT px. -Lovenox BID, transition to oral AC when know surgery is definetly not going to occur this admission. DISPOSITION: Admitted to inpatient status. F/u surgery evaluation. Plan is discharge home when medically improved. Vital Signs Vital Signs Date Time Temp Pulse Resp B/P (MAP) Pulse Ox O2 Delivery O2 Flow Rate FiO2 02/18/20 11:25 158/88 (111) 02/18/20 11:01 66 18 94 Room Air 02/18/20 04:31 97.0 Laboratory Data Labs 24H Laboratory Tests 2 02/18/20 05:13: Immature Granulocyte % (Auto) 0.6, Neutrophils (%) (Auto) 82.7H, Lymphocytes (%) (Auto) 5.4L, Monocytes (%) (Auto) 8.6H, Eosinophils (%) (Auto) 2.1, Basophils (%) (Auto) 0.6, Neutrophils # (Auto) 12.6H, Lymphocytes # (Auto) 0.8L, Monocytes # (Auto) 1.3H, Eosinophils # (Auto) 0.3, Basophils # (Auto) 0.1, Nucleated Red Blood Cells % (auto) 0.0, Lactic Acid Level 2.4*H, Total Bilirubin 0.4, Direct Bilirubin 0.1, Aspartate Amino Transf (AST/SGOT) 14, Alanine Aminotransferase (ALT/SGPT) 14, Alkaline Phosphatase 150H, Total Creatine Kinase 41, Creatine Kinase MB < 1.0, Creatine Kinase MB Relative Index 2.44, Troponin I 0.08, Total Protein 7.1, Albumin 3.1L, Albumin/Globulin Ratio 0.8L, Lipase 139 02/18/20 05:17: POC Glucose (Misc Panel) 167H, POC Sodium (Misc Panel) 140, POC Potassium (Misc Panel) 2.8*L, POC Chloride (Misc Panel) 101, POC Total CO2 (Misc Panel) 28.0H, POC Blood Urea Nitrogen (Misc Panel 17, POC Ionized Calcium (Misc Panel) 4.7, POC Creatinine (Misc Panel) 1.0, POC Hematocrit (Misc Panel) 41.0 02/18/20 08:28: Total Creatine Kinase 45, Creatine Kinase MB 1.6, Creatine Kinase MB Relative Index 3.56, Troponin I 0.22#H, Prothrombin Time 13.8, Prothromb Time International Ratio 1.03, Activated Partial Thromboplast Time 24.1L 02/18/20 11:57: CBC/BMP Laboratory Tests 02/18/20 05:13 Microbiology Microbiology 02/18/20 Blood Culture, Received Pending 02/18/20 Blood Culture, Received Pending Home Medications Scheduled Fluoxetine Hcl (Fluoxetine HCl) 20 Mg Cap, 20 MG PO DAILY Levothyroxine Sodium (Levothyroxine Sodium) 125 Mcg Tablet, 125 MCG PO DAILY Potassium Chloride (Potassium Chloride) 10 Meq Cap, 10 MEQ PO DAILY Sulfasalazine (Sulfasalazine Dr) 500 Mg Tablet.dr, 500 MG PO QID Torsemide (Torsemide) 10 Mg Tab, 10 MG PO DAILY Scheduled PRN Acetaminophen (Tylenol Extra Strength) 500 Mg Tablet, 1,000 MG PO TID PRN for PAIN Torsemide (Torsemide) 10 Mg Tablet, 10 MG PO DAILY PRN for FLUID RETENTION TAKES IF WEIGHT GAIN >2LBS Allergies Coded Allergies: No Known Drug Allergies (Verified Allergy, Unknown, 02/27/19) A-FIB/CHADSVASC A-FIB History Current/History of A-Fib/PAF?: No Current PO Anticoag Therapy: No Age/Risk Factor Scoring CHADSVASC: CHADSVASC Response (Comments) Value Age Risk Factor Age 65-74 years old 1 Gender Risk Factor Female 1 Hx of CHF No 0 Hx of HTN No 0 Hx of Stroke/TIA/or VTE No 0 Hx of Diabetes No 0 Hx of Vascular Disease No 0 Total 2 Treatment Treatment ordered: Other Other anticoagulant ordered: Kalyani Fernandes MD Feb 18, 2020 12:34
[2020-02-18] MEDS ORDERED: ENOXAPARIN 100MG/1ML SYRINGE (J1650 PER 10MG) SC ONE (13:00)
[2020-02-18] MEDS ORDERED: KCL 10MEQ/100ML SWI (KRUN) 10 MEQ in IV 1 EA IV SCH (13:00)
[2020-02-18 13:30] VITALS: BP 150/90
[2020-02-18] MEDS ORDERED: NITROGLYCERIN 0.4 MG SUBL TABLET SL PRN (13:45)
[2020-02-18] MEDS ORDERED: POTASSIUM CHLORIDE 10% LIQ 20 MEQ/15 ML UDC PO ONE (13:45)
[2020-02-18] MEDS: cefTRIAXone SOD 1 GM in D5W MINI-BAG PLUS 50 ML IV SCH (13:52)
[2020-02-18] MEDS: ONDANSETRON 4MG/2ML VIAL IV PRN (15:07)
[2020-02-18] MEDS: DOXYCYCLINE HYCLATE 100 MG in D5W MINI-BAG PLUS 100 ML IV SCH (15:07)
[2020-02-18] MEDS: PANTOPRAZOLE 40MG VIAL (C9113 PER 1) IV SCH (15:08)
--- NOTE | 2020-02-18 15:18 | REPVR ---
PROCEDURE INFORMATION: Exam: US Duplex Lower Extremity Veins, Bilateral Exam date and time: 02/18/2020 2:41 PM Age: 74 years old Clinical indication: Condition or disease; Other: Bilateral pe; Additional info: R/O dvts, bilateral pulmonary emboli TECHNIQUE: Imaging protocol: Real-time duplex ultrasound of the extremities with 2-D alvarez scale, color Doppler flow and spectral waveform analysis with image documentation. Complete exam focused on the bilateral lower extremity veins. COMPARISON: US Duplex, Ext LOWER veins, bilat 04/05/2016 11:46 AM FINDINGS: Right deep veins: No deep venous thrombosis in the visualized right common femoral vein. Deep venous thrombosis in the right superficial femoral and popliteal veins, which was not present on the prior study. Right superficial veins: Saphenofemoral junction is patent without thrombus. Left deep veins: No deep venous thrombosis in the visualized left common femoral, femoral, or popliteal veins. Left superficial veins: Saphenofemoral junction is patent without thrombus. Soft tissues: Unremarkable. IMPRESSION: 1. Deep venous thrombosis in the right superficial femoral and popliteal veins. 2. No deep venous thrombosis in the visualized left lower extremity. The aforementioned findings initiated a critical results communication pathway. An addendum will be issued at the time of clincian notification. Electronically signed by: Don Esparza On 02/18/2020 15:18:38 PM
[2020-02-18 16:00] VITALS: BP 137/79
[2020-02-18 20:00] VITALS: BP 130/63
[2020-02-19] VITALS: BP 126/60
[2020-02-19] MEDS ORDERED: ENOXAPARIN 80MG/0.8ML SYRINGE (J1650 PER 10MG) SC SCH (01:00)
[2020-02-19] MEDS: DOXYCYCLINE HYCLATE 100 MG in D5W MINI-BAG PLUS 100 ML IV SCH ×2 (02:26→15:41)
[2020-02-19 04:00] VITALS: BP 120/59
[2020-02-19 04:52] LABS: HEMATOCRIT 36.5 % (36.0-47.0); HEMOGLOBIN 11.3 g/dl (12.0-15.5); MEAN CORPUSCULAR HEMOGLOBIN 27.7 pg (27.0-33.0); MEAN CORPUSCULAR VOLUME 89.5 fl (80.0-96.0); PLATELET COUNT, AUTOMATED 198 10^3/uL (150-450); RED BLOOD COUNT 4.08 10^6/uL (4.00-5.40); WHITE BLOOD COUNT 9.1 10^3/uL (4.0-10.0)
[2020-02-19 05:29] LABS: ALBUMIN 2.5 GM/DL (3.2-5.2); ALT/SGPT 12 U/L (12-78); BILIRUBIN,TOTAL 0.4 MG/DL (0.2-1.0); BLOOD UREA NITROGEN 10 MG/DL (7-18); CALCIUM LEVEL 8.9 MG/DL (8.8-10.2); CARBON DIOXIDE LEVEL 26 MEQ/L (21-32); CHLORIDE LEVEL 114 MEQ/L (98-107); CREATININE FOR GFR 0.76 MG/DL (0.55-1.30); GLOMERULAR FILTRATION RATE > 60.0 (>39); GLUCOSE, FASTING 90 MG/DL (70-100); POTASSIUM SERUM 4.4 MEQ/L (3.5-5.1); SODIUM LEVEL 145 MEQ/L (136-145); TOTAL PROTEIN 5.8 GM/DL (6.4-8.2); TROPONIN I 0.33 NG/ML (< 0.10)
[2020-02-19] MEDS: NS 1,000 ML IV SCH ×2 (06:47→21:09)
[2020-02-19 08:00] VITALS: BP 138/65
[2020-02-19 08:07] LABS: FREE T4 1.54 NG/DL (0.76-1.46); THYROID STIMULATING HORMONE < 0.005 uIU/ML (0.358-3.740)
--- NOTE | 2020-02-19 08:56 | ECGEPIP ---
[facility] - ED Test Date: 2020-02-18 Pat Name: CARTER VEGA Department: Room: 0102 Gender: Female [employer]: anya : 1945 Requested By: Frederick Gold Order Number: [id number] Reading MD: Frederick Sharp Measurements Intervals [place] Rate: 71 P: 48 NC: 190 QRS: -16 QRSD: 98 T: 31 QT: 336 QTc: 366 Interpretive Statements SINUS RHYTHM INFERIOR MYOCARDIAL INFARCTION, PROBABLY OLD POOR R WAVE PROGRESSION NSTTW ABNORMALITIES SIMILAR TO 07/02/19 Electronically Signed on 02-19-2020 8:56:23 EDT by Frederick Sharp
[2020-02-19] MEDS ORDERED: ACETAMINOPHEN TAB 650MG DOSE (2X325MG) PO PRN (11:15)
[2020-02-19] MEDS ORDERED: HEPARIN SOD (PORCINE) 5000UNITS/ML 1ML VIAL/SYRINGE IV ONE (11:15)
--- NOTE | 2020-02-19 11:33 | IPNPDOC ---
Text Note Date of Service The patient was seen on 02/19/20. NOTE SUBJECTIVE: No acute events overnight PHYSICAL EXAMINATION: GENERAL: NAD EYES: PERRLA, EOMI HENT: Normocephalic, atraumatic, moist mucous membranes NECK: SUPPLE, no JVD, no lymphadenopathy CV: Regular rate and rhythm, no murmurs/rubs/gallops RESPIRATORY: Clear to auscultation bilaterally, no rales/rhonchi/wheezes GI: Multiple well healed abdominal surgical scars, normoactive bowel sounds, soft, TTP in RUQ, +Prajapati's EXT: 1+ bilateral pitting LE edema, otherwise WWP INTEGUMENTARY: Intact, no rashes, no lesions, no erythema NEUROLOGIC: Cranial Nerves II-XII are intact, no focal deficits PSYCHIATRIC: Mood and affect are normal LABORATORY DATA: Please see below WBC 9.1 Hgb 11.3 platelets 198 Na 145 K 4.4 Cr 0.76 IMAGING: CT abd/pelvis: 1. Mild infiltrates in the lingula and right lower lobe. 2. Extensive pulmonary emboli in the lower lungs. 3. Marked gallbladder distension with multiple gallstones, large stone lodged in the gallbladder neck is likely obstructing the gallbladder. 4. Cystic pancreatic lesion measuring 14 mm, could represent a small cyst, pseudocyst, or pancreatic cystic neoplasm. Additional smaller cystic lesion in the pancreas measuring 8 mm also seen. 5. Extremely narrowed inferior vena cava at the liver, possibly due to the severely expanded gallbladder pressing on it. CT head: No acute intracranial abnormality ASSESSMENT: 74 y/o W with ulcerative colitis, hyperthyroidism, history of PE, chronic pancreatic cyst, chronic cholelithiasis admitted for nausea/vomiting with likely worsening chronic PEs with newly noted RLE DVT while off AC, CAP and troponin leak attributed to demand ischemia. PLAN: 1. Nausea/vomiting and abdominal pain with cholelithiasis: -CT abd/pelvis above -Per surgery, spoke with IR and plan is for cholecystostomy drainage tomorrow, so NPO at midnight. On speaking with Dr. Bradley to switch to heparin gtt -Restart clear liquid diet, NPO at midnight zofran. -F/u daily labs -tylenol PRN and morphine [id number] for severe pain 2. Bilateral pulmonary emboli. -Currently saturating well on RA -Unknown as to why patient was not placed back on oral AC after last admission -Currently on therapeutic dosing lovenox BID, will transition to heparin gtt at this time -f/u echocardiogram 3. Community acquired PNA -Ceftriaxone, doxycycline, day 2 -Follow up sputum and blood cultures 4.Chest burning/pain r/o ACS vs. 2/2 to GERD -No ECG changes. -VS stable -Discussed with Dr. Bolton at admission who recommended medical management and unlikely to be ACS -NSR on tele -PPI -Troponin eventually downtrended 5. Hypertensive urgency likely 2/2 to anxiety, no hx of HTN: resolved -BP systolic >200mmHg in ER initially, resolved -Monitor with regular VS 7. Hyperthyroidism s/p radioactive iodine ablation x 2 -Last TSH on file <0.005 from 02/12/20 -check TSH and free T4 -Follows with Dr. Del Toro o/p 6. Chronic pancreatic cyst. -Lipase wnl -Monitoring 7. Depression -Resume home med 8. GI px -c/w PPI 9. DVT px. -Lovenox BID, transition back to oral AC DISPOSITION: Admitted to inpatient status. Plan is discharge home when medically improved. VS,Verae, I+O VS, Verae, I+O Laboratory Tests 02/19/20 04:33 Vital Signs Date Time Temp Pulse Resp B/P (MAP) Pulse Ox O2 Delivery O2 Flow Rate FiO2 02/19/20 04:00 98.4 69 16 120/59 (79) 96 Room Air I&O- Last 24 Hours up to 6 AM 02/19/20 06:00 Intake Total 2450 ml Output Total 600 ml Balance 1850 ml ABDI BALLESTEROS MD Feb 19, 2020 07:37
[2020-02-19] MEDS: MORPHINE 2 MG/ML 1ML VIAL (J2270) IV PRN (11:47)
[2020-02-19 12:00] VITALS: BP 139/70
[2020-02-19] MEDS ORDERED: HEPARIN SOD (PORCINE) 5000UNITS/ML 1ML VIAL/SYRINGE IV PRN (13:00)
[2020-02-19] MEDS: HEPARIN DRIP 25,000 UNITS in IV 1 EA IV SCH (13:03)
[2020-02-19] MEDS: cefTRIAXone SOD 1 GM in D5W MINI-BAG PLUS 50 ML IV SCH (14:24)
--- NOTE | 2020-02-19 15:32 | CR ---
DATE OF CONSULTATION: 02/18/2020 REASON FOR CONSULTATION: Abdominal pain, cholelithiasis, possible liver abscess. HISTORY OF PRESENT ILLNESS: The patient is a 74-year-old woman with several active medical issues who presented to the Emergency Department on the armature varnisher of the 17 of February. The patient reported that she had been awakened by a sensation which she had trouble describing. She indicated that she had the sensation as of blood rushing to her head but also feeling somewhat short of breath and also having some nausea and repeated vomiting. She apparently did not have a loss of consciousness. She did not report chest discomfort but had some shortness of breath. In the Emergency Department she underwent further evaluation. On further questioning, she does report that she has had pain in her right flank and right subcostal area, worsening over about the last month. This is increased by movement or coughing and deep breathing. She has not had definite fevers or chills. She is on Entyvio for a history of ulcerative colitis, and her last dose was on Tuesday, the 14 of February. She had recently undergone radioactive iodine ablation of her thyroid for Graves' disease and is on Levothyroxine now. In the Emergency Department she had some basic laboratory studies obtained that showed an elevation of her white count to 15,000 with 83% neutrophils. A CT scan of the abdomen and pelvis was obtained which revealed several stable findings including an epigastric hernia, cholelithiasis with a markedly distended gallbladder, and evidence of prior left colon surgery. She was also noted to have an irregular lucent area in the liver in the right lobe near the gallbladder. The CT scan also disclosed evidence for multiple lower lobe pulmonary emboli. She was admitted by the Hospitalist for management and I was consulted regarding her gallbladder and gallstones as well as the lucency in the liver. ALLERGIES: The patient reports no known drug allergies. MEDICATIONS AT TIME OF ADMISSION: * Tylenol p.r.n. for pain. * Fluoxetine 20 mg p.o. daily. * Levothyroxine 125 mcg p.o. daily. * Potassium Chloride 10 mEq p.o. daily. * Sulfasalazine 500 mg p.o. four times daily. * Torsemide 10 mg p.o. daily with an additional 10 mg p.o. daily as needed for fluid retention with a weight gain greater than 2 pounds. * She is also on the Entyvio every 6 weeks. MEDICAL HISTORY: The patient's past medical history is significant for: * Long history of ulcerative colitis, currently on oral Sulfasalazine and the biologic Entyvio. * She has a history of hyperthyroidism and has recently undergone her second round of radioactive iodine ablation. * She has a history of pulmonary emboli in the past, but had not been maintained on anticoagulation recently. * Cholelithiasis with a known distended gallbladder noted at least in June, but also going back farther than that. SURGICAL HISTORY: The patient's past surgical history is significant for: * The patient underwent a left total knee arthroplasty in 2018. * She had a right total knee in 2014. * Back in 2006 she had undergone an exploratory laparotomy with sigmoid colectomy and colostomy, apparently related to obstruction from diverticulosis and diverticulitis. She had a very complicated course as her wound could not be closed primarily at the time of her surgery and required return to the O.R. on several occasions for dressing changes and subsequent closure of her wound with a more biologic mesh. 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 She had a closure of her colostomy in December of 2008. This also required temporary closure of the wound using a wound VAC system with some biologic mesh. * Then in July of 2009 she underwent repair of her hernias with placement of proceed mesh by Dr. Jennings. FAMILY HISTORY: There is a family history of coronary artery disease and hypertension in her father who is at age 78. Her mother was at age 93. SOCIAL HISTORY: She is a prior smoker who quit in 1999. She denies any significant drug or alcohol use. The patient apparently lives alone in the local area. Her primary care provider is Dr. Roshan Long. REVIEW OF SYSTEMS: The patient denies any chest pain but does report some occasionally palpitations. She has had some shortness of breath associated with this admission but denies chronic shortness of breath. She has had no history of seizure or stroke. She denies any recent rectal bleeding. She did have some diarrhea associated with her vomiting and nausea this morning. She has some lower extremity edema which apparently has been more chronic. PHYSICAL EXAMINATION: GENERAL APPEARANCE: A pleasant woman lying quietly on the hospital bed. She is alert and oriented. VITAL SIGNS: Her most recent vital signs show a temperature of 98.5, pulse of 72, respirations are 16 and her blood pressure is 137/79. SKIN: Warm and dry. HEENT: Sclerae are anicteric. Mucous membranes are moist. NECK: Without mass and she has no cervical bruit. HEART: Regular rate and rhythm. LUNGS: Good bilateral breath sounds anteriorly. ABDOMEN: A somewhat widened midline scar. She has a palpable hernia high in the epigastrium. This is perhaps 6-8 cm in maximum diameter. She does have bowel sounds present. The abdomen is generally soft to palpation without any discreet tenderness at this time. EXTREMITIES: Upper extremities show no edema and she has palpable radial pulses. The lower extremities show some bilateral mild edema of the lower legs. She has palpable dorsalis pedis pulses bilaterally. LABORATORY STUDIES: Today white count of 15,000, hemoglobin 13, hematocrit 42 and a platelet count of 204,000. Her differential count shows 83% neutrophils, 5% lymphocytes and 9% monocytes. Coags showed a PT of 13.8, INR of 1.0 and a PTT of 24. Chemistry profile done as a point of care testing in the E.R. showed a sodium of 140, potassium 2.8, chloride 101, CO2 of 28, BUN of 17, creatinine 1.0 and a glucose of 167. Remaining chemistry values showed normal liver function tests with the exception of a slight elevation of the alkaline phosphatase to 150. Troponin is 0.08, though this was noted on repeat to be 0.22 and at 13:00 this afternoon it was 0.37. Total protein is 7.1 with an albumin of 3.1. Lipase is 139. She had a lactic acid that was 2.4 at 5:00 in the morning and was normal at 1.0 at 12:00. IMAGING DATA: Her imaging today included a CT scan of the abdomen and pelvis. The findings are as noted in the History of the Present Illness and are most notable for bilateral lower lobe pulmonary emboli and for a hypodense irregular area in the lateral aspect of the right lobe of the liver just lateral to the gallbladder. She had a head CT that showed no acute intracranial process. A lower extremity ultrasound was done which confirmed deep vein thrombosis in the right leg involving the superficial femoral and popliteal veins. There was no evidence of DVT on the left. The patient apparently has undergone an echocardiogram, but I do not have a result of this. IMPRESSION: * Hypodense area right lobe of liver concerning for liver abscess. * Acute bilateral lower lobe pulmonary emboli. * Right lower extremity deep vein thrombosis. * Chronic ulcerative colitis. * Hypothyroidism secondary to thyroid ablation, now on replacement. * Cholelithiasis with chronically distended gallbladder. RECOMMENDATIONS: At this point the patient clearly has several significant acute processes ongoing. She clearly has bilateral lower lobe pulmonary emboli with DVT identified in the right lower extremity. She certainly requires anticoagulation. However, she has a hypodense area in the lateral aspect of the right lobe of the liver with an associated elevated white blood cell count and describes a month long history of worsening pain in this area which would be consistent with a slowly developing abscess in this area. Certainly her Entyvio makes her a greater risk for infection and I think her history would be consistent with a liver abscess. I think this is separate and unrelated to her cholelithiasis and her distended gallbladder. I think at this point we will need to attempt a percutaneous drain placement in this collection which will be both diagnostic and also therapeutic. She was started on Lovenox earlier today and this is certainly appropriate to get her started on anticoagulation. I will hold her Lovenox after her dose that should occur at 1:00 in the morning on the which hopefully will allow Radiology to perform a drainage of her liver. She should be able to resume anticoagulation very shortly after this. Antibiotics are certainly appropriate. Her gallbladder does not appear to be causing problem at this point. She will need to remain off her Entyvio if this is in fact an abscess, until her infection has completely cleared. 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 MARTI
[2020-02-19] MEDS: PANTOPRAZOLE 40MG VIAL (C9113 PER 1) IV SCH (15:41)
[2020-02-19] MEDS: NORCO, ANEXSIA 5/325MG TABLET (HYDROcodone/ACETAMINOPHEN) PO PRN (15:50)
[2020-02-19 16:00] VITALS: BP 130/60
[2020-02-19 20:00] VITALS: BP 110/58
[2020-02-20] VITALS (8 sets, daily range): BP systolic 118–147; BP diastolic 57–89
[2020-02-20] MEDS: HEPARIN DRIP 25,000 UNITS in IV 1 EA IV SCH ×2 (03:08→17:12)
[2020-02-20] MEDS: NS 1,000 ML IV SCH ×2 (03:22→08:39)
[2020-02-20] MEDS: DOXYCYCLINE HYCLATE 100 MG in D5W MINI-BAG PLUS 100 ML IV SCH ×2 (03:22→15:29)
[2020-02-20] MEDS: NORCO, ANEXSIA 5/325MG TABLET (HYDROcodone/ACETAMINOPHEN) PO PRN ×3 (03:57→22:49)
[2020-02-20 04:56] LABS: HEMATOCRIT 35.6 % (36.0-47.0); MEAN CORPUSCULAR HEMOGLOBIN 28.1 pg (27.0-33.0); MEAN CORPUSCULAR HGB CONC 30.9 g/dl (32.0-36.5); PLATELET COUNT, AUTOMATED 199 10^3/uL (150-450); RED BLOOD COUNT 3.91 10^6/uL (4.00-5.40); WHITE BLOOD COUNT 8.3 10^3/uL (4.0-10.0)
[2020-02-20 05:18] LABS: ALBUMIN 2.4 GM/DL (3.2-5.2); ALT/SGPT 11 U/L (12-78); BILIRUBIN,TOTAL 0.4 MG/DL (0.2-1.0); BLOOD UREA NITROGEN 8 MG/DL (7-18); CALCIUM LEVEL 8.8 MG/DL (8.8-10.2); CARBON DIOXIDE LEVEL 24 MEQ/L (21-32); CHLORIDE LEVEL 115 MEQ/L (98-107); CREATININE FOR GFR 0.78 MG/DL (0.55-1.30); GLOMERULAR FILTRATION RATE > 60.0 (>39); GLUCOSE, FASTING 95 MG/DL (70-100); SODIUM LEVEL 144 MEQ/L (136-145); TOTAL PROTEIN 5.6 GM/DL (6.4-8.2)
[2020-02-20] MEDS: MORPHINE 2 MG/ML 1ML VIAL (J2270) IV PRN ×2 (09:03→20:02)
[2020-02-20 09:46] LABS: INR 1.01; PROTHROMBIN TIME 13.5 SECONDS (12.5-14.3)
[2020-02-20] MEDS ORDERED: LIDOCAINE 1% MDV 20ML VIAL As Ordered ONE ×2 (10:27→10:58)
[2020-02-20] MEDS ORDERED: SODIUM BICARBONATE 8.4% INJ 50MEQ 50 ML VIAL As Ordered ONE (10:27)
[2020-02-20 13:07] LABS: ANTI THROMBIN 3 ANTIGEN IMMUNO 85 % (72-124); ANTI THROMBIN 3 FUNCT ACTIVITY 97 % (75-135); PROTEIN C ANTIGEN 89 % (60-150); PROTEIN S ANTIGEN FREE 74 % (57-157); PROTEIN S ANTIGEN TOTAL 123 % (60-150)
[2020-02-20] MEDS: cefTRIAXone SOD 1 GM in D5W MINI-BAG PLUS 50 ML IV SCH (14:01)
[2020-02-20] MEDS: PANTOPRAZOLE 40MG VIAL (C9113 PER 1) IV SCH (15:29)
[2020-02-21] VITALS: BP 140/64
[2020-02-21] MEDS: DOXYCYCLINE HYCLATE 100 MG in D5W MINI-BAG PLUS 100 ML IV SCH (03:12)
[2020-02-21 04:00] VITALS: BP 134/61
[2020-02-21 06:13] LABS: HEMATOCRIT 32.4 % (36.0-47.0); MEAN CORPUSCULAR HEMOGLOBIN 27.6 pg (27.0-33.0); MEAN CORPUSCULAR HGB CONC 30.9 g/dl (32.0-36.5); MEAN CORPUSCULAR VOLUME 89.5 fl (80.0-96.0); PLATELET COUNT, AUTOMATED 189 10^3/uL (150-450); RED BLOOD COUNT 3.62 10^6/uL (4.00-5.40); WHITE BLOOD COUNT 9.2 10^3/uL (4.0-10.0)
[2020-02-21 07:09] LABS: BLOOD UREA NITROGEN 10 MG/DL (7-18); CALCIUM LEVEL 8.9 MG/DL (8.8-10.2); CARBON DIOXIDE LEVEL 25 MEQ/L (21-32); CHLORIDE LEVEL 114 MEQ/L (98-107); CREATININE FOR GFR 0.76 MG/DL (0.55-1.30); GLOMERULAR FILTRATION RATE > 60.0 (>39); GLUCOSE, FASTING 99 MG/DL (70-100); POTASSIUM SERUM 3.7 MEQ/L (3.5-5.1); SODIUM LEVEL 143 MEQ/L (136-145)
[2020-02-21 08:00] VITALS: BP 132/72
--- NOTE | 2020-02-21 08:46 | IPNPDOC ---
Text Note Date of Service The patient was seen on 02/20/20. NOTE SUBJECTIVE: No acute events overnight PHYSICAL EXAMINATION: GENERAL: NAD EYES: PERRLA, EOMI HENT: Normocephalic, atraumatic, moist mucous membranes NECK: SUPPLE, no JVD, no lymphadenopathy CV: Regular rate and rhythm, no murmurs/rubs/gallops RESPIRATORY: Clear to auscultation bilaterally, no rales/rhonchi/wheezes GI: Multiple well healed abdominal surgical scars, normoactive bowel sounds, soft, TTP in RUQ, +Prajapati's, no rebound, no guarding EXT: 1+ bilateral pitting LE edema, otherwise WWP INTEGUMENTARY: Intact, no rashes, no lesions, no erythema NEUROLOGIC: Cranial Nerves II-XII are intact, no focal deficits PSYCHIATRIC: Mood and affect are normal LABORATORY DATA: Please see below WBC 8.3 Hgb 11 platelets 199 Na 144 K 4 Cr 0.78 IMAGING: CT abd/pelvis: 1. Mild infiltrates in the lingula and right lower lobe. 2. Extensive pulmonary emboli in the lower lungs. 3. Marked gallbladder distension with multiple gallstones, large stone lodged in the gallbladder neck is likely obstructing the gallbladder. 4. Cystic pancreatic lesion measuring 14 mm, could represent a small cyst, pseudocyst, or pancreatic cystic neoplasm. Additional smaller cystic lesion in the pancreas measuring 8 mm also seen. 5. Extremely narrowed inferior vena cava at the liver, possibly due to the severely expanded gallbladder pressing on it. CT head: No acute intracranial abnormality ASSESSMENT: 74 y/o W with ulcerative colitis, hyperthyroidism, history of PE, chronic pancreatic cyst, chronic cholelithiasis admitted for nausea/vomiting/abd pain with noted distended gall bladder and a liver collection c/f abscess in R lobe, with PEs with newly noted RLE DVT while off AC, CAP and troponin leak attributed to demand ischemia. PLAN: 1. Nausea/vomiting and abdominal pain with cholelithiasis, distended gallbladder as well as newly noted R lobe collection c/f abscess: -CT abd/pelvis above -Per surgery, recommended US guided drainage/aspiration of collection and sending for culture with high suspicion for a liver abscess. NPO, heparin gtt held for needle aspiration being done by [facility] at 11am. -daily CBC and CMP -tylenol PRN, norco and morphine [id number] for severe pain 2. Bilateral pulmonary emboli. -Currently saturating well on RA -Unknown as to why patient was not placed back on oral AC after last admission -Currently on heparin gtt that is held for needle aspiration procedure. -f/u echocardiogram 3. Community acquired PNA -Ceftriaxone, doxycycline, day 3 -Follow up sputum and blood cultures 4.Chest burning/pain r/o ACS vs. 2/2 to GERD -No ECG changes. -VS stable -Discussed with Dr. Bolton at admission who recommended medical management and unlikely to be ACS -NSR on tele -PPI -Troponin eventually downtrended 5. Hypertensive urgency likely 2/2 to anxiety, no hx of HTN: resolved -BP systolic >200mmHg in ER initially, resolved -Monitor with regular VS 7. Hyperthyroidism s/p radioactive iodine ablation x 2 -Last TSH on file <0.005 from 02/12/20 -check TSH and free T4 -Follows with Dr. Del Toro o/p 6. Chronic pancreatic cyst. -Lipase wnl -Monitoring 7. Depression -Resume home med 8. GI px -c/w PPI 9. DVT px. -Heparin gtt, transition back to oral AC after procedures are complete and she is clinically stable DISPOSITION: Admitted to inpatient status. Plan is discharge home when medically improved. VS,Fishbone, I+O VS, Fishbone, I+O Laboratory Tests 02/20/20 04:26 Vital Signs Date Time Temp Pulse Resp B/P (MAP) Pulse Ox O2 Delivery O2 Flow Rate FiO2 02/20/20 04:27 17 02/20/20 04:00 98.6 71 141/61 (87) 91 Room Air I&O- Last 24 Hours up to 6 AM 02/20/20 06:00 Intake Total 2324 ml Output Total 0 ml Balance 2324 ml ABDI BALLESTEROS MD Feb 20, 2020 07:47
[2020-02-21] MEDS: HEPARIN DRIP 25,000 UNITS in IV 1 EA IV SCH (09:25)
--- NOTE | 2020-02-21 10:13 | IPNPDOC ---
Text Note Date of Service The patient was seen on 02/21/20. NOTE SUBJECTIVE: -Low grade temp overnight to 100.4 -No complaints otherwise Interim events: -had drainage of liver collection and cultures were sent -restarted on heparin gtt PHYSICAL EXAMINATION: GENERAL: NAD EYES: PERRLA, EOMI HENT: Normocephalic, atraumatic, moist mucous membranes NECK: SUPPLE, no JVD, no lymphadenopathy CV: Regular rate and rhythm, no murmurs/rubs/gallops RESPIRATORY: Clear to auscultation bilaterally, no rales/rhonchi/wheezes GI: Multiple well healed abdominal surgical scars, normoactive bowel sounds, soft, TTP in RUQ, +Prajapati's, no rebound, no guarding EXT: 1+ bilateral pitting LE edema, otherwise WWP INTEGUMENTARY: Intact, no rashes, no lesions, no erythema NEUROLOGIC: Cranial Nerves II-XII are intact, no focal deficits PSYCHIATRIC: Mood and affect are normal LABORATORY DATA: Please see below WBC 9.2 Hgb 10 platelets 189 Na 143 K 3.7 Cr 0.76 IMAGING: CT abd/pelvis: 1. Mild infiltrates in the lingula and right lower lobe. 2. Extensive pulmonary emboli in the lower lungs. 3. Marked gallbladder distension with multiple gallstones, large stone lodged in the gallbladder neck is likely obstructing the gallbladder. 4. Cystic pancreatic lesion measuring 14 mm, could represent a small cyst, pseudocyst, or pancreatic cystic neoplasm. Additional smaller cystic lesion in the pancreas measuring 8 mm also seen. 5. Extremely narrowed inferior vena cava at the liver, possibly due to the severely expanded gallbladder pressing on it. CT head: No acute intracranial abnormality ASSESSMENT: 74 y/o W with ulcerative colitis, hyperthyroidism, history of PE, chronic pancreatic cyst, chronic cholelithiasis admitted for nausea/vo miting/abd pain with noted distended gall bladder and a liver collection c/f abscess in R lobe, with PEs with newly noted RLE DVT while off AC, CAP and troponin leak attributed to demand ischemia. PLAN: 1. Nausea/vomiting and abdominal pain with cholelithiasis, distended gallbladder as well as newly noted R lobe collection c/f abscess: -CT abd/pelvis above -Per surgery, recommended US guided drainage/aspiration of collection and sending for culture with high suspicion for a liver abscess. Drainage performed by [facility] on 02/20/2020 with pending culture -daily CBC and CMP -tylenol PRN, norco and morphine [id number] for severe pain 2. Bilateral pulmonary emboli. -Currently saturating well on RA -Unknown as to why patient was not placed back on oral AC after last admission -Currently on heparin gtt -f/u echocardiogram 3. Community acquired PNA -Ceftriaxone, doxycycline, day 4 -Follow up sputum and blood cultures 4.Chest burning/pain r/o ACS vs. 2/2 to GERD -No ECG changes. -VS stable -Discussed with Dr. Bolton at admission who recommended medical management and unlikely to be ACS -NSR on tele -PPI -Troponin eventually downtrended 5. Hypertensive urgency likely 2/2 to anxiety, no hx of HTN: resolved -BP systolic >200mmHg in ER initially, resolved -Monitor with regular VS 7. Hyperthyroidism s/p radioactive iodine ablation x 2 -Last TSH on file <0.005 from 02/12/20 -check TSH and free T4 -Follows with Dr. Del Toro o/p 6. Chronic pancreatic cyst. -Lipase wnl -Monitoring 7. Depression -Resume home med 8. GI px -c/w PPI 9. DVT px. -Heparin gtt, transition back to oral AC after procedures are complete and she is clinically stable DISPOSITION: Admitted to inpatient status. Plan is discharge home when medically improved. VS,Verae, I+O VS, Verae, I+O Laboratory Tests 02/21/20 05:57 Vital Signs Date Time Temp Pulse Resp B/P (MAP) Pulse Ox O2 Delivery O2 Flow Rate FiO2 02/21/20 08:00 97.6 80 17 132/72 (92) 93 Room Air I&O- Last 24 Hours up to 6 AM 02/21/20 06:00 Intake Total 1862 ml Output Total 1000 ml Balance 862 ml ABDI BALLESTEROS MD Feb 21, 2020 08:51
[2020-02-21] MEDS: NORCO, ANEXSIA 5/325MG TABLET (HYDROcodone/ACETAMINOPHEN) PO PRN ×2 (10:15→21:26)
[2020-02-21] MEDS: DOXYCYCLINE HYCLATE 100MG TABLET PO SCH ×2 (10:22→21:25)
[2020-02-21 12:00] VITALS: BP 142/69
[2020-02-21] MEDS: CEFUROXIME 500 MG TAB PO SCH ×2 (13:11→21:25)
[2020-02-21 16:00] VITALS: BP 144/66
[2020-02-21] MEDS ORDERED: ACETAMINOPHEN 500 MG TAB PO PRN (18:30)
[2020-02-21] MEDS: LEVOTHYROXINE 125MCG TABLET (0.125MG) PO SCH (18:30)
[2020-02-21 20:00] VITALS: BP 136/65
[2020-02-21] MEDS: sulfaSALAzine 500 MG TABEC PO SCH (21:25)
[2020-02-21] MEDS: PANTOPRAZOLE 40MG TAB (PROTONIX) PO SCH (21:25)
[2020-02-22] VITALS: BP 139/65
[2020-02-22 04:00] VITALS: BP 138/69
[2020-02-22] MEDS: HEPARIN DRIP 25,000 UNITS in IV 1 EA IV SCH (04:43)
[2020-02-22 05:40] LABS: HEMATOCRIT 34.3 % (36.0-47.0); HEMOGLOBIN 10.9 g/dl (12.0-15.5); MEAN CORPUSCULAR HGB CONC 31.8 g/dl (32.0-36.5); MEAN CORPUSCULAR VOLUME 88.2 fl (80.0-96.0); PLATELET COUNT, AUTOMATED 200 10^3/uL (150-450); RED BLOOD COUNT 3.89 10^6/uL (4.00-5.40)
[2020-02-22 06:07] LABS: ALBUMIN 2.2 GM/DL (3.2-5.2); ALT/SGPT 15 U/L (12-78); BILIRUBIN,TOTAL 0.3 MG/DL (0.2-1.0); BLOOD UREA NITROGEN 13 MG/DL (7-18); CARBON DIOXIDE LEVEL 24 MEQ/L (21-32); CHLORIDE LEVEL 115 MEQ/L (98-107); CREATININE FOR GFR 0.78 MG/DL (0.55-1.30); GLOMERULAR FILTRATION RATE > 60.0 (>39); GLUCOSE, FASTING 101 MG/DL (70-100); POTASSIUM SERUM 3.7 MEQ/L (3.5-5.1); SODIUM LEVEL 143 MEQ/L (136-145); TOTAL PROTEIN 5.8 GM/DL (6.4-8.2)
[2020-02-22] MEDS: LEVOTHYROXINE 125MCG TABLET (0.125MG) PO SCH (06:33)
[2020-02-22 08:00] VITALS: BP 140/70
[2020-02-22] MEDS: PANTOPRAZOLE 40MG TAB (PROTONIX) PO SCH ×2 (09:14→20:23)
[2020-02-22] MEDS: FLUoxetine 20 MG CAP PO SCH (09:14)
[2020-02-22] MEDS: DOXYCYCLINE HYCLATE 100MG TABLET PO SCH ×2 (09:14→20:23)
[2020-02-22] MEDS: CEFUROXIME 500 MG TAB PO SCH ×2 (09:14→20:24)
[2020-02-22] MEDS: sulfaSALAzine 500 MG TABEC PO SCH ×4 (09:14→20:23)
[2020-02-22] MEDS: NORCO, ANEXSIA 5/325MG TABLET (HYDROcodone/ACETAMINOPHEN) PO PRN (11:08)
[2020-02-22 12:00] VITALS: BP 145/79
--- NOTE | 2020-02-22 12:22 | IPNPDOC ---
Text Note Date of Service The patient was seen on 02/22/20. NOTE SUBJECTIVE: -Had another low grade temp overnight to 100.3 -continues to have mild RUQ pain PHYSICAL EXAMINATION: GENERAL: NAD EYES: PERRLA, EOMI HENT: Normocephalic, atraumatic, moist mucous membranes NECK: SUPPLE, no JVD, no lymphadenopathy CV: Regular rate and rhythm, no murmurs/rubs/gallops RESPIRATORY: Clear to auscultation bilaterally, no rales/rhonchi/wheezes GI: Multiple well healed abdominal surgical scars, normoactive bowel sounds, soft, mild TTP in RUQ, no rebound, no guarding EXT: 1+ bilateral pitting LE edema, otherwise WWP INTEGUMENTARY: Intact, no rashes, no lesions, no erythema NEUROLOGIC: Cranial Nerves II-XII are intact, no focal deficits PSYCHIATRIC: Mood and affect are normal LABORATORY DATA: Please see below WBC 10 Hgb 10.9 platelets 200 Na 143 K 3.7 Cr 0.78 IMAGING: CT abd/pelvis: 1. Mild infiltrates in the lingula and right lower lobe. 2. Extensive pulmonary emboli in the lower lungs. 3. Marked gallbladder distension with multiple gallstones, large stone lodged in the gallbladder neck is likely obstructing the gallbladder. 4. Cystic pancreatic lesion measuring 14 mm, could represent a small cyst, pseudocyst, or pancreatic cystic neoplasm. Additional smaller cystic lesion in the pancreas measuring 8 mm also seen. 5. Extremely narrowed inferior vena cava at the liver, possibly due to the severely expanded gallbladder pressing on it. CT head: No acute intracranial abnormality ASSESSMENT: 74 y/o W with ulcerative colitis, hyperthyroidism, history of PE, chronic pancreatic cyst, chronic cholelithiasis admitted for nausea/vomiting/abd pain with noted distended gall bladder and a liver collection c/f abscess in R lobe, with PEs with newly noted RLE DVT while off AC, CAP and troponin leak attributed to demand ischemia. PLAN: 1. Nausea/vomiting and abdominal pain with cholelithiasis, distended gallbladder as well as newly noted R lobe collection c/f abscess: -CT abd/pelvis above -Surgery recommended drainage/aspiration of collection and sending for culture with high suspicion for a liver abscess. Drainage performed by [facility] on 02/20/2020 with negative culture. -Dr. Houston at this time is recommending holding off cholecystectomy given her multiple emboli and switching her over from heparin gtt to the appropriate director long term care anticoagulation and to follow up in clinic with him during which time he may rescan her and then schedule a cholecystectomy at that time. -daily CBC and CMP -tylenol PRN for mild pain, norco and morphine [id number] for severe pain -will stop heparin gtt and switch her over to eliquis 2. Bilateral pulmonary emboli. -Currently saturating well on RA -Unknown as to why patient was not placed back on oral AC after last admission -DC heparin gtt and start eliquis 10mg BID for 7d and then thereafter 5mg BID. -f/u echocardiogram 3. Community acquired PNA -Ceftriaxone, doxycycline, day 5 -Follow up sputum and blood cultures, negative 4.Chest burning/pain r/o ACS vs. 2/2 to GERD -No ECG changes. -VS stable -Discussed with Dr. Bolton at admission who recommended medical management and unlikely to be ACS -NSR on tele -PPI -Troponin eventually downtrended 5. Hypertensive urgency likely 2/2 to anxiety, no hx of HTN: resolved -BP systolic >200mmHg in ER initially, resolved -Monitor with regular VS 7. Hyperthyroidism s/p radioactive iodine ablation x 2 -Last TSH on file <0.005 from 02/12/20 -check TSH and free T4 -Follows with Dr. Del Toro o/p 6. Chronic pancreatic cyst. -Lipase wnl -Monitoring 7. Depression -Resume home med 8. GI px -c/w PPI 9. DVT px: eliquis DISPOSITION: Admitted to inpatient status. Plan is discharge home likely tomorrow AM. Will have PT do home safety eval VS,[facility], I+O VS, Verae, I+O Laboratory Tests 02/22/20 05:02 Vital Signs Date Time Temp Pulse Resp B/P (MAP) Pulse Ox O2 Delivery O2 Flow Rate FiO2 02/22/20 04:00 98.8 69 20 138/69 (92) 93 Room Air l I&O- Last 24 Hours up to 6 AM 02/22/20 06:00 Intake Total 780 ml Output Total 1650 ml Balance -870 ml ABDI BALLESTEROS MD Feb 22, 2020 07:34
[2020-02-22] MEDS: APIXABAN 5 MG TAB (ELIQUIS) PO SCH ×2 (12:32→20:24)
[2020-02-22] MEDS ORDERED: CEFU50TA PO (13:34)
[2020-02-22] MEDS ORDERED: ELIQ5TAB PO (13:34)
[2020-02-22] MEDS ORDERED: DOXY100T PO (13:34)
[2020-02-22] MEDS ORDERED: traMADol 50 MG TAB PO PRN (13:45)
--- NOTE | 2020-02-22 14:26 | ECHO ---
DATE OF PROCEDURE: 02/18/2020 Gender: F Height: 147 cm Weight: 70 kg REFERRING PHYSICIAN: Dr. Kalyani Mancilla INDICATION: Pulmonary embolism MEASUREMENTS: IVS 0.9 LV 5.0 LVPW 0.8 LA 3.8 Aorta 2.9 Mitral E wave velocity is 69; A wave 88 E prime septal 4.8 E prime lateral 12.3 FINDINGS: This study is of acceptable technical quality. The patient is in sinus rhythm with frequent supraventricular and rare ventricular ectopy. Left ventricle is normal size and systolic function, I estimate ejection fraction (EF) around 60-65%. No segmental wall motion abnormalities are appreciated. Right ventricle appears slightly enlarged but normally contractile. Both atria appear normal. Aortic valve is minimally sclerotic but has three cusps and preserved mobility. Mitral, tricuspid and pulmonic valves appear normal. No pericardial effusion is noted. Inferior vena cava is not seen. Aortic root and aortic arch appear normal. Abdominal aorta was not visualized. Doppler interrogation reveals competent aortic valve. There is trace mitral and mild tricuspid insufficiency. Calculated pulmonary artery pressure is in the 50s corresponding at minimum to moderate pulmonary hypertension. Trace pulmonic insufficiency is seen. Mitral inflow pattern and tissue Doppler imaging of mitral annulus revealed grade 1 diastolic dysfunction. CONCLUSIONS: 1. Study is of acceptable technical quality, patient is in sinus rhythm. 2. Normal left ventricular (LV) size with preserved LV systolic function and grade 1 diastolic dysfunction. 3. Right ventricle appears mildly dilated but normally contractile. 4. No hemodynamically significant valvular disease. 5. Unable to estimate central venous pressure but at least moderate pulmonary hypertension. MTDD
[2020-02-22 20:00] VITALS: BP 154/77
[2020-02-23] VITALS: BP 156/90
[2020-02-23 04:00] VITALS: BP 142/74
[2020-02-23 05:55] LABS: HEMATOCRIT 33.2 % (36.0-47.0); HEMOGLOBIN 10.6 g/dl (12.0-15.5); MEAN CORPUSCULAR HGB CONC 31.9 g/dl (32.0-36.5); MEAN CORPUSCULAR VOLUME 87.6 fl (80.0-96.0); PLATELET COUNT, AUTOMATED 229 10^3/uL (150-450); RED BLOOD COUNT 3.79 10^6/uL (4.00-5.40)
[2020-02-23 06:21] LABS: ALBUMIN 2.1 GM/DL (3.2-5.2); ALT/SGPT 14 U/L (12-78); BILIRUBIN,TOTAL 0.4 MG/DL (0.2-1.0); BLOOD UREA NITROGEN 16 MG/DL (7-18); CALCIUM LEVEL 8.5 MG/DL (8.8-10.2); CARBON DIOXIDE LEVEL 24 MEQ/L (21-32); CHLORIDE LEVEL 113 MEQ/L (98-107); CREATININE FOR GFR 0.68 MG/DL (0.55-1.30); GLOMERULAR FILTRATION RATE > 60.0 (>39); GLUCOSE, FASTING 96 MG/DL (70-100); POTASSIUM SERUM 4.1 MEQ/L (3.5-5.1); SODIUM LEVEL 144 MEQ/L (136-145); TOTAL PROTEIN 5.6 GM/DL (6.4-8.2)
[2020-02-23] MEDS: LEVOTHYROXINE 125MCG TABLET (0.125MG) PO SCH (06:23)
[2020-02-23] MEDS: ONDANSETRON 4MG/2ML VIAL IV PRN ×2 (06:26→21:34)
[2020-02-23 08:00] VITALS: BP 132/66
[2020-02-23] MEDS: PANTOPRAZOLE 40MG TAB (PROTONIX) PO SCH ×2 (08:44→20:12)
[2020-02-23] MEDS: FLUoxetine 20 MG CAP PO SCH (08:44)
[2020-02-23] MEDS: DOXYCYCLINE HYCLATE 100MG TABLET PO SCH ×2 (08:44→20:12)
[2020-02-23] MEDS: APIXABAN 5 MG TAB (ELIQUIS) PO SCH (08:44)
[2020-02-23] MEDS: sulfaSALAzine 500 MG TABEC PO SCH ×4 (08:44→20:12)
[2020-02-23] MEDS: CEFUROXIME 500 MG TAB PO SCH ×2 (08:44→20:12)
--- NOTE | 2020-02-23 09:54 | DS.PDOC ---
Discharge Summary General Date of Admission Feb 18, 2020 at 11:31 Date of Discharge 02/23/2020 Attending Physician: ABDI BALLESTEROS MD Specialist/Consultants Involve: Adithya Houston Discharge Summary PROCEDURES PERFORMED DURING STAY: Liver collection drainage on 02/20/2020 ADMITTING DIAGNOSES: 1. Abdominal pain DISCHARGE DIAGNOSES: 1. Liver collection presumed 2/2 liver abscess 2. Bilateral pulmonary emboli 3. CAP 4. Cholelithiasis with biliary colic 5. Hypertensive urgency 6. Ulcerative colitis 7. Hyperthyroidism with iatrogenic hypothyroidism currently, s/p radioactive iodine ablation x 2 8. Chronic pancreatic cyst 9. Depression COMPLICATIONS/CHIEF COMPLAINT: Abdominal Pain. HISTORY OF PRESENT ILLNESS: 74 y/o W with a past medical history of ulcerative colitis, hyperthyroidism, history of pulmonary emboli, chronic pancreatic cyst, chronic cholelithiasis who presented to [facility] emergency room after having acute onset of nausea v omiting. She also presented complaining of acute substernal burning in the chest, nonradiating, 03/01, intermittent, relieved with nothing. This burning was associated with acute onset of nausea with vomiting, dizziness, lightheadedness, increased weakness, diaphoresis, feeling clammy, acute nonbloo dy diarrhea and shortness of breath without abdominal pain, fevers, sick contacts, recent traveling. HOSPITAL COURSE: The emergency room vital signs showed the patient was hypertensive with systolic as high as [address] abd/pelvis showed mild infiltrates in the lingula and right lower lobe, extensive pulmonary emboli in the lower lungs, marked gallbladder distension with multiple gallstones/ large stone lodged in the gallbladder neck is likely obstructing the gallbladder, cystic pancreatic lesion measuring 14 mm( small cyst vs. pseudocyst, or pancreatic cystic neoplasm), smaller cystic lesion in the pancreas measuring 8 mm, extremely narrowed inferior vena cava at the liver possibly due to the expanded gallbladder pressing on it. Trop elevated at 0.22, WBC 15k , LA 2.4, potassium 2.8. ECG showed NSR. Patient was admitted for n/v possibly 2/2 to acute cardiac event vs. worsening cholelithiasis, community acquired PNA and hypertensive urgency. With regard to PNA, she was treated with ceftriaxone/doxy and later switched to ceftin/doxy and remained clinically stable without hypoxemia or fevers. She will complete a 7d course on 02/24/2020. With regard to her abdominal pain, on Dr. Houston's evaluation, he was most concerned about a newly noted R hepatic lobe collection c/f abscess and recommended US guided drainage/aspiration of collection and sending for culture. Drainage was performed by [facility] on 02/20/2020 and the gram stain and culture was ultimately negative for organisms and had no growth. During evaluation she was also found to have a DVT and multiple bilateral PEs and she was initially placed on lovenox that was switched to a heparin gtt given that she had liver collection drainage and eventually started on eliquis for lifetime use for recurrent unprovoked VTEs. Given the acute clots, Dr. Houston recommended deferring cholecystectomy at this time and follow up outpatient at which point surgery department will re-assess and if indicated will schedule for a cholecystectomy in a few weeks. DISCHARGE MEDICATIONS: Please see below. ALLERGIES: Please see below. PHYSICAL EXAMINATION ON DISCHARGE: VITAL SIGNS: Please see below. GENERAL: NAD EYES: PERRLA, EOMI HENT: Normocephalic, atraumatic, moist mucous membranes NECK: SUPPLE, no JVD, no lymphadenopathy CV: Regular rate and rhythm, no murmurs/rubs/gallops RESPIRATORY: Clear to auscultation bilaterally, no rales/rhonchi/wheezes GI: Multiple well healed abdominal surgical scars, normoactive bowel sounds, soft, TTP in RUQ, no rebound, no guarding EXT: 1+ bilateral pitting LE edema, otherwise WWP INTEGUMENTARY: Intact, no rashes, no lesions, no erythema NEUROLOGIC: Cranial Nerves II-XII are intact, no focal deficits PSYCHIATRIC: Mood and affect are normal LABORATORY DATA: Please see below. IMAGING: No contrast CT head: No acute intracranial hemorrhage or edema. CT A/P with IV contrast: Pulmonary emboli are new from prior. Ill-defined hypodense lesion in the right hepatic lobe adjacent to the gallbladder measuring 5.0 x 2.7 x 7.9 cm. New from prior. Evaluate for possible hepatic abscess. Cystic lesion in the pancreatic head is unchanged. Left renal cyst is unchanged. Dilated gallbladder is unchanged. Bilateral LE doppler venous US: Right deep veins: No deep venous thrombosis in the visualized right common femoral vein. Deep venous thrombosis in the right superficial femoral and popliteal veins, which was not present on the prior study. Right superficial veins: Saphenofemoral junction is patent without thrombus. Left deep veins: No deep venous thrombosis in the visualized left common femoral, femoral, or popliteal veins. Left superficial veins: Saphenofemoral junction is patent without thrombus. Soft tissues: Unremarkable. IMPRESSION: 1. Deep venous thrombosis in the right superficial femoral and popliteal veins. 2. No deep venous thrombosis in the visualized left lower extremity. PROGNOSIS: Good ACTIVITY: As tolerated DIET: Regular DISCHARGE PLAN: Home with ceftin/doxy to complete on 02/23 for CAP, eliquis for lifetime use and follow up with surgery and PCP. DISPOSITION: Home DISCHARGE INSTRUCTIONS: 1. Home with ceftin/doxy to complete on 02/23 for CAP, eliquis for lifetime use and follow up with surgery and PCP. ITEMS TO FOLLOWUP ON ON OUTPATIENT: 1. DVT/PE 2. Cholelithiasis 3. liver collection c/f abscess 4. Resolution of CAP DISCHARGE CONDITION: Stable TIME SPENT ON DISCHARGE: 52 minutes. Vital Signs/I&Os Vital Signs Date Time Temp Pulse Resp B/P (MAP) Pulse Ox O2 Delivery O2 Flow Rate FiO2 02/22/20 11:08 18 02/22/20 08:00 98.3 67 140/70 (93) 94 Room Air I&O- Last 24 Hours up to 6 AM 02/22/20 06:00 Intake Total 840 ml Output Total 1650 ml Balance -810 ml Laboratory Data Labs 24H Laboratory Tests 2 02/21/20 15:13: Activated Partial Thromboplast Time 105.3H 02/21/20 21:26: Activated Partial Thromboplast Time 90.6H 02/22/20 05:02: Activated Partial Thromboplast Time 117.7H, Nucleated Red Blood Cells % (auto) 0.0, Anion Gap 4L, Glomerular Filtration Rate > 60.0, Calcium Level 9.0, Total Bilirubin 0.3, Aspartate Amino Transf (AST/SGOT) 12, Alanine Aminotransferase (ALT/SGPT) 15, Alkaline Phosphatase 128H, Total Protein 5.8L, Albumin 2.2L, Albumin/Globulin Ratio 0.6L CBC/BMP Laboratory Tests 02/22/20 05:02 Microbiology Microbiology 02/22/20 Stool Occult Blood (JARET) - Final, Complete 02/20/20 Gram Stain - Final, Complete 02/20/20 Abscess Culture - Final, Complete 02/20/20 Anaerobic Culture, Received Pending 02/18/20 Blood Culture - Preliminary, Resulted No Growth after 72 hours. All specime... 02/18/20 Blood Culture - Preliminary, Resulted No Growth after 72 hours. All specime... Discharge Medications Scheduled Apixaban (Eliquis) 5 Mg Tablet, 5 MG PO BID 10mg BID for 6 days, then 5mg BID thereafter Cefuroxime Axetil (Cefuroxime) 500 Mg Tablet, 500 MG PO BID Doxycycline Hyclate (Doxycycline Hyclate) 100 Mg Tablet, 100 MG PO BID Fluoxetine Hcl (Fluoxetine HCl) 20 Mg Cap, 20 MG PO DAILY, (Reported) Levothyroxine Sodium (Levothyroxine Sodium) 125 Mcg Tablet, 125 MCG PO DAILY, (Reported) Potassium Chloride (Potassium Chloride) 10 Meq Cap, 10 MEQ PO DAILY, (Reported) Sulfasalazine (Sulfasalazine Dr) 500 Mg Tablet.dr, 500 MG PO QID, (Reported) Torsemide (Torsemide) 10 Mg Tab, 10 MG PO DAILY, (Reported) Scheduled PRN Acetaminophen (Tylenol Extra Strength) 500 Mg Tablet, 1,000 MG PO TID PRN for PAIN, (Reported) Torsemide (Torsemide) 10 Mg Tablet, 10 MG PO DAILY PRN for FLUID RETENTION, (Reported) TAKES IF WEIGHT GAIN >2LBS Allergies Coded Allergies: No Known Drug Allergies (Verified Allergy, Unknown, 02/27/19) ABDI BALLESTEROS MD Feb 22, 2020 13:29
[2020-02-23] MEDS ORDERED: TRAM50TA2 PO (11:53)
--- NOTE | 2020-02-23 12:42 | IPNPDOC ---
Text Note Date of Service The patient was seen on 02/23/20. NOTE SUBJECTIVE: -continues to have mild RUQ pain, well managed by PRN tramadol and tylenol PHYSICAL EXAMINATION: GENERAL: NAD EYES: PERRLA, EOMI HENT: Normocephalic, atraumatic, moist mucous membranes NECK: SUPPLE, no JVD, no lymphadenopathy CV: Regular rate and rhythm, no murmurs/rubs/gallops RESPIRATORY: Clear to auscultation bilaterally, no rales/rhonchi/wheezes GI: Multiple well healed abdominal surgical scars, normoactive bowel sounds, soft, mild TTP in RUQ, no rebound, no guarding EXT: 1+ bilateral pitting LE edema, otherwise WWP INTEGUMENTARY: Intact, no rashes, no lesions, no erythema NEUROLOGIC: Cranial Nerves II-XII are intact, no focal deficits PSYCHIATRIC: Mood and affect are normal LABORATORY DATA: Reviewed, stable. Please see below for details IMAGING: CT abd/pelvis: 1. Mild infiltrates in the lingula and right lower lobe. 2. Extensive pulmonary emboli in the lower lungs. 3. Marked gallbladder distension with multiple gallstones, large stone lodged in the gallbladder neck is likely obstructing the gallbladder. 4. Cystic pancreatic lesion measuring 14 mm, could represent a small cyst, pseudocyst, or pancreatic cystic neoplasm. Additional smaller cystic lesion in the pancreas measuring 8 mm also seen. 5. Extremely narrowed inferior vena cava at the liver, possibly due to the severely expanded gallbladder pressing on it. CT head: No acute intracranial abnormality ASSESSMENT: 74 y/o W with ulcerative colitis, hyperthyroidism, history of PE, chronic pancreatic cyst, chronic cholelithiasis admitted for nausea/vomiting/abd pain with noted distended gall bladder and a liver collection c/f abscess in R lobe, with PEs with newly noted RLE DVT while off AC, CAP and troponin leak attributed to demand ischemia. PLAN: 1. Nausea/vomiting and abdominal pain with cholelithiasis, distended gallbladder as well as newly noted R lobe collection c/f abscess: -CT abd/pelvis above -Surgery recommended drainage/aspiration of collection and sending for culture with high suspicion for a liver abscess. Drainage performed by [facility] on 02/20/2020 with negative culture. -Dr. Houston recommended holding off cholecystectomy given her multiple emboli and switching her over from heparin gtt to the appropriate intermediate ant icoagulation and to follow up in clinic with him during which time he may rescan her and then schedule a cholecystectomy at that time. -daily CBC and CMP -tylenol PRN for mild pain, norco and morphine [id number] for severe pain 2. Bilateral pulmonary emboli. -Currently saturating well on RA -Unknown as to why patient was not placed back on oral AC after last admission -Switch her from eliquis 10mg BID to lovenox for cheaper more affordable anticoagulation because her medicare part D left her with her $138 co-pay that would be prohibitive for her -TTE with grade 1 diastolic dysfunction but otherwise normal EF, no significant valvular disease and no discussion of potential PFO 3. Community acquired PNA -ceftin, doxycycline, day 6 of 7 -Follow up sputum and blood cultures, negative 4.Chest burning/pain r/o ACS vs. 2/2 to GERD -No ECG changes. -VS stable -Was discussed with Dr. Bolton at admission who recommended medical management and unlikely to be ACS -NSR on tele -PPI -Troponin eventually downtrended 5. Hypertensive urgency likely 2/2 to anxiety, no hx of HTN: resolved -BP systolic >200mmHg in ER initially, resolved -Monitor with regular VS 7. Hyperthyroidism s/p radioactive iodine ablation x 2 -Last TSH on file <0.005 from 02/12/20 -check TSH and free T4 -Follows with Dr. Del Toro o/p 6. Chronic pancreatic cyst. -Lipase wnl -Monitoring 7. Depression -Resume home med 8. GI px -c/w PPI 9. DVT px: lovenox DISPOSITION: Admitted to inpatient status. had planned to discharge her today but eliquis co-pay was prohibitive and we are now switching her to lovenox, will do teaching and discharge her in the next few days, likely tuesday. VS,[place], I+O VS, Fishbone, I+O Laboratory Tests 02/23/20 05:11 Vital Signs Date Time Temp Pulse Resp B/P (MAP) Pulse Ox O2 Delivery O2 Flow Rate FiO2 02/23/20 08:00 98.2 65 18 132/66 (88) 92 02/23/20 04:00 Room Air I&O- Last 24 Hours up to 6 AM 02/23/20 06:00 Intake Total 1344 ml Output Total 1750 ml Balance -406 ml [id number],ABDI V. MD Feb 23, 2020 12:41
[2020-02-23 16:00] VITALS: BP 123/59
[2020-02-23 20:00] VITALS: BP 142/62
[2020-02-23] MEDS: ENOXAPARIN 80MG/0.8ML SYRINGE (J1650 PER 10MG) SC SCH (20:12)
[2020-02-23 21:52] VITALS: BP 100/69
[2020-02-24 06:17] VITALS: BP 113/69
[2020-02-24] MEDS: LEVOTHYROXINE 125MCG TABLET (0.125MG) PO SCH (06:39)
[2020-02-24 07:00] LABS: HEMOGLOBIN 10.4 g/dl (12.0-15.5); MEAN CORPUSCULAR HEMOGLOBIN 27.8 pg (27.0-33.0); MEAN CORPUSCULAR HGB CONC 31.5 g/dl (32.0-36.5); MEAN CORPUSCULAR VOLUME 88.2 fl (80.0-96.0); PLATELET COUNT, AUTOMATED 233 10^3/uL (150-450); RED BLOOD COUNT 3.74 10^6/uL (4.00-5.40); WHITE BLOOD COUNT 7.6 10^3/uL (4.0-10.0)
[2020-02-24 07:16] LABS: ALBUMIN 2.3 GM/DL (3.2-5.2); ALT/SGPT 19 U/L (12-78); BILIRUBIN,TOTAL 0.4 MG/DL (0.2-1.0); BLOOD UREA NITROGEN 10 MG/DL (7-18); CALCIUM LEVEL 9.2 MG/DL (8.8-10.2); CARBON DIOXIDE LEVEL 25 MEQ/L (21-32); CHLORIDE LEVEL 113 MEQ/L (98-107); CREATININE FOR GFR 0.76 MG/DL (0.55-1.30); GLOMERULAR FILTRATION RATE > 60.0 (>39); GLUCOSE, FASTING 93 MG/DL (70-100); POTASSIUM SERUM 4.2 MEQ/L (3.5-5.1); SODIUM LEVEL 143 MEQ/L (136-145); TOTAL PROTEIN 5.5 GM/DL (6.4-8.2)
[2020-02-24] MEDS: DOXYCYCLINE HYCLATE 100MG TABLET PO SCH (08:19)
[2020-02-24] MEDS: sulfaSALAzine 500 MG TABEC PO SCH ×2 (08:19→13:31)
[2020-02-24] MEDS: CEFUROXIME 500 MG TAB PO SCH (08:19)
[2020-02-24] MEDS: FLUoxetine 20 MG CAP PO SCH (08:19)
[2020-02-24] MEDS: ENOXAPARIN 80MG/0.8ML SYRINGE (J1650 PER 10MG) SC SCH (08:19)
[2020-02-24] MEDS: PANTOPRAZOLE 40MG TAB (PROTONIX) PO SCH (08:19)
[2020-02-24] MEDS ORDERED: LOVE0.6I2 SC (08:43)
[2020-02-24] MEDS ORDERED: MUCI1TAB16 PO (10:09)
--- NOTE | 2020-02-24 14:50 | IPN ---
DATE: 02/19/2020 HISTORY: Patient was admitted yesterday with a history of right upper quadrant abdominal discomfort with an elevated white blood cell count. She has a distended gallbladder with multiple gallstones visible but this appears stable. There is a hypodense area noted in the lateral aspect of the right lobe of the liver which I think is consistent with a liver abscess. She also has acute bilateral lower lobe pulmonary emboli with a positive deep venous thrombosis (DVT) identified on a right lower extremity ultrasound. I had held her Lovenox after her train examiner dose today and requested an image-guided drain placement for her liver collection. Vital signs show that she has been afebrile today. Her pulse is in the 60s and 70s and her blood pressure is normal. Room air oxygen saturations are in the low 90s today. Intake and output shows that she has had 1950 in yesterday with 600 mL of urine output. She denies any nausea or vomiting. PHYSICAL EXAMINATION: Patient is lying quietly on the hospital bed, but she is kind of holding her right flank and indicating she is still having pain. Heart and lung exam is unremarkable. The abdomen is somewhat obese but soft. LABORATORY STUDIES: Today, show a white count of 9, hemoglobin 11, hematocrit 36, and a platelet count of 198,000. Chemistry profile is normal other than a minimal elevation of the chloride to 114. Troponin is stable at 0.33 and her protein and albumin are low at 5.8 and 2.5, respectively. IMPRESSION: Patient has a history of worsening right flank pain and I think the findings are consistent with a liver abscess and drainage should be achieved. I do not believe her gallbladder findings are responsible for the pain. PLAN: I spoke with Dr. Ferreira who had taken over for the admitting physician. I note that the patient appears to be on the schedule for a cholecystotomy with Dr. Maguire of interventional radiology in the morning. I contacted Dr. Ferreira to discuss this and advised her that my request had been directed toward the liver collection which I believe is actually an abscess. Dr. Maguire and I then spoke by phone, and after she had a chance to review the imaging, she indicated that the radiologist, not the interventional radiologist, would be performing an aspiration of the liver on the morning of 02/20/2020. She has been started on a heparin drip by the hospitalist. I will just wait to see if this drain is accomplished and what returns. MARTI
--- NOTE | 2020-02-24 14:55 | IPN ---
DATE: 02/21/2020 HISTORY: The patient had undergone a CT guided placement of a drain with aspiration of some fluid from the area of her liver that appeared consistent with an abscess. She had this fluid sent for gram stain and culture. Her gram stain was unavailable yesterday but today it is reported as showing many red cells, a few white cells, but no organisms were seen. The culture itself is pending. She reports still some mild soreness in the right flank area, but it seems better than it had been. She remains on a Heparin drip for her pulmonary emboli and deep vein thrombosis. Vital signs show that she had a T-max of 100.4 around midnight. Her pulse has been in the 70s generally with a good blood pressure. Intake and output show that yesterday she had 2,600 in with 1,000 mL of urine recorded out. PHYSICAL EXAMINATION: GENERAL APPEARANCE: The patient is lying quietly in the hospital bed. She is alert and oriented. She appears fairly comfortable. ABDOMEN: She has a small dressing over the area of the aspiration. The drain was not left in place. It was just used to aspirate the area. The abdomen is otherwise somewhat obese but soft and without any undue tenderness. LABORATORY STUDIES: White count of 9, hemoglobin 10, hematocrit 32 and a platelet count of 189,000. Chemistry profile shows basically normal electrolytes which are unchanged over the last couple days. IMPRESSION: The patient is doing fairly well at this point. She is on Heparin for her DVT and pulmonary emboli. She remains on antibiotics. Her culture is pending from her abscess aspiration. 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 At this point if she remains stable, I would not recommend proceeding with a cholecystectomy at this time. If the liver culture grows something, then I would recommend continuing treatment with antibiotics as necessary to manage this. I think her pulmonary emboli are certainly more a threatening issue than her gallbladder which has been fairly stable in appearance over serial imaging recently. I will discuss with her possible follow up for this when we get closer to her possible discharge from the hospital. MARTI
--- NOTE | 2020-02-24 14:58 | IPN ---
DATE: 02/22/2020 HISTORY: The patient is now post procedure day two from aspiration of what appeared to be a liver abscess. Her culture result has now come back as no growth. Her discomfort in the right flank seems to be continuing to diminish. It is unclear if this represents a true abscess that had sterile cultures because of prior antibiotic treatment or if in fact this was not an abscess at all. She does seem to be feeling better. She is remaining on anticoagulation at this point for her pulmonary emboli. Vital signs show that she had a maximum temperature of 100.3 late on the . She has been afebrile since. Her pulse is in the 60s to 70s and her blood pressure is good. Intake and output show that she has had an excellent oral intake and urine output. LABORATORY STUDIES: Today white count of 10, hemoglobin 11, hematocrit 34 and a platelet count of 200,000. Chemistry profile is similar to the last 4 days. Glucose is 101. Liver function tests are normal. IMPRESSION: The patient has had no growth from her liver abscess aspiration. Her discomfort seems to be diminishing. I think it is most likely that this was in fact a small developing abscess that has responded to antibiotics and therefore had a negative culture. I had spoken with Dr. Ferreira earlier today about this patient's management. I would recommend treating her with anticoagulation for her DVT and pulmonary emboli for a period of time, perhaps a month or two to insure that her clots resolve optimally and that she is at a lower risk of repeat emboli. I would recommend reassessing her liver with repeat imaging, most likely a CT scan in perhaps a month. If she has persistent discomfort in the right upper quadrant or right flank with her pulmonary emboli well treated and no signs of any residual abscess in the liver, then a cholecystectomy at that time, I think would be safer. PLAN: I spoke with the patient and outlined the plan as I had discussed it with Dr. Ferreira as noted above. I would be happy to see the patient back in the office in the future to follow up on her gallbladder and determine if cholecystectomy would be prudent at some point. MARTI
--- NOTE | 2020-02-27 14:29 | REP ---
CT-GUIDED LIVER ABSCESS DRAIN This procedure was performed by TIM Colbert, under the direct supervision of Dr. Aquino. The risks and benefits of the procedure were explained to the patient and an informed consent was obtained both verbally and written. Directly prior to the start of the procedure, a formal time-out was completed in the procedure room. A pocket of abscess was localized in the superior left lobe of the liver under CT guidance. The skin was prepped and draped in a sterile fashion. Approximately 7 mL of buffered Lidocaine was used as a local anesthetic. Using CT-guided, a 5- Belarusian multi-side hole pigtail catheter was inserted and advanced into the abscess. Approximately 10 mL of bloody pus was removed. Unfortunately, the tube was yanked and it came out of the abscess pocket. Another 5-Belarusian pigtail multi-side hole catheter was inserted into the area of the abscess. An additional 18 mL of bloody fluid was removed. All 28 mL of fluid were sent to the lab for further analysis. CT images obtained afterward did not demonstrate any hematomas. The patient tolerated the procedure extremely well. After the appropriate amount of monitored convalescence, the patient was discharged from the unit. This exam has been dictated by TIM Colbert with Dr. Aquino. [facility]
== END 2020-02-24 14:00 | disposition home or self-care (01) | DRG 441 ==
LOC: M ED 03:50 → M ED INP 11:31 → ENRESERV 11:47 → M PCU 13:15 → M MS5PR 02-23 21:42
PROVIDERS: ADMIT Internal Medicine; ATTEND Internal Medicine
PROC: 0F9130Z Drainage of Right Lobe Liver with Drainage Device, Percutaneous Approach (ICD-10-PCS; principal; 2020-02-20 11:00)
DX: K75.0 Abscess of liver (principal); I26.99 Other pulmonary embolism without acute cor pulmonale; J18.9 Pneumonia, unspecified organism; K86.2 Cyst of pancreas; K51.90 Ulcerative colitis, unspecified, without complications; I82.411 Acute embolism and thrombosis of right femoral vein; I82.431 Acute embolism and thrombosis of right popliteal vein; K80.20 Calculus of gallbladder without cholecystitis without obstruction; R07.9 Chest pain, unspecified; E03.2 Hypothyroidism due to medicaments and other exogenous substances; F32.9 Major depressive disorder, single episode, unspecified; I16.0 Hypertensive urgency; Z79.899 Other long term (current) drug therapy; Z96.661 Presence of right artificial ankle joint; Z96.662 Presence of left artificial ankle joint; Z87.891 Personal history of nicotine dependence; F41.9 Anxiety disorder, unspecified

== ENCOUNTER → 2020-03-28 | Outpatient (CLI) | payer MEDICARE, OTHER ==
[~2020-03-28] MED LIST changes: +CEFU50TA PO; +DOXY100T PO; +ELIQ5TAB PO; +GASTROGRAFIN SOLUTION 30ML (Q9963) As Ordered ONE; +ISOVUE-370 76% 100ML VIAL As Ordered ONE; +LEVO125T4 PO; +LOVE0.6I2 SC; +MUCI1TAB16 PO
--- NOTE | 2020-03-28 13:16 | REP ---
INDICATION: ABSCESS OF LIVER FILE ROOM. COMPARISON: Comparison CT 02/18/2020, CT guided abscess drainage 02/20/2020 TECHNIQUE: Oral Gastrografin mixture per our bowel contrast protocol followed by bolus of 100 mL Isovue 370 scanning through the abdomen with coronal and sagittal reconstructions. FINDINGS: Lung bases show some linear and dependent atelectatic changes. Heart not grossly enlarged visualized aorta intact pulmonary arteries without filling defects. There is some eventration and elevation right diaphragm. Is a complex intrahepatic hypodense lesion with rim enhancing tissue consistent with intrahepatic abscess, larger than on the original CT of 02/18/2020. It measures about the 9.4 x 3.2 by 4.8 cm in greatest diameter is in the right hepatic lobe adjacent to the gallbladder. I do not see left lobe involvement. No intrahepatic biliary dilatation. There is no ascites. The left portal vein shows filling defect as a new finding suggesting portal vein thrombosis of that intrahepatic portion, best seen on image 37. Geographic variations of attenuation from the hepatic contrast in the liver are felt related to this. Hydrops of the gallbladder is again seen with the gallbladder measuring up to 13 cm and there are multiple rim calcified gallstones again seen the largest of these 2.3 cm. Small hypodense lesion in the pancreatic head is unchanged. Kidneys show small cysts posteriorly and inferiorly on the left unchanged. No hydronephrosis stone or mass. Spleen unremarkable. Stomach without hiatal hernia. Visualized small bowel loops and upper abdominal colon loops included were unremarkable. There is a ventral hernia of the supraumbilical region with bowel loops but no strangulation. Bones are unchanged. IMPRESSION: 1. The hepatic abscess noted previously has recurred and is larger than erosion all examination on 02/18/2020. No measures 9.4 by 3.3 x 4.8 cm. Is in the right lobe abutting the capsule and immediately adjacent to the enlarged hydropic gallbladder. No other areas of the liver involved. No biliary dilatation. No ascites. No free air. 2. Left portal vein thrombus as a new finding compared to 02/18/2020. 3. Hydrops of the gallbladder with gallbladder at least 13 cm long multiple rim calcified large stones up to 2.3 cm. There is a stone in the gallbladder neck on image 40 through 45 which may be partially obstructing that gallbladder. 4. Low-density findings in the head of the pancreas represent small cyst or cystic lesion. This is unchanged. I spoke to Dr. Houston by phone at 1:05 p.m. Critical Findings: Hepatic abscess and left portal vein thrombosis. The critical information above was relayed directly by me by telephone to Adithya Houston on 03/28/2020 at 1:05 pm with readback verification. Recommend in <Electronically signed by Dwayne Darnell > 03/28/20 [id number]
== END ==
LOC: M RAD 10:45
PROVIDERS: ATTEND Surgery
DX: K75.0 Abscess of liver (principal)
CPT/HCPCS: 74160; Q9963; Q9967

== ENCOUNTER → 2020-04-22 | Outpatient (POV) | payer MEDICARE, OTHER ==
[~2020-04-22] MED LIST changes: -GASTROGRAFIN SOLUTION 30ML (Q9963) As Ordered ONE; -ISOVUE-370 76% 100ML VIAL As Ordered ONE; +WARF4TAB51 PO
--- NOTE | 2020-04-24 15:58 | IRCOV ---
[facility] IR Consult Office Visit IR Consult Office Visit DATE: Apr 22, 2020 Patient agreed to this telephone consultation. I spent 30 minutes reviewing patient's records, imaging and talking to the patient. REASON FOR CONSULTATION/CHIEF COMPLAINT: Liver abscess. HISTORY OF PRESENT ILLNESS: 73-year-old female reports chronic loss of appetite, early satiety and abdominal pain and discomfort with eating. She has lost weight. She was recently admitted for right subcostal discomfort and fever. At that time she had a CAT scan done which showed a distended gallbladder filled with stones which appeared unchanged from prior CAT scan. However she did have a low-density focal area within the liver thought to be an intrahepatic abscess. At that time she had a needle aspiration which grew nothing on culture. She completed antibiotic therapy. She denies fevers or chills at present. However, she had a follow-up CAT scan which shows that the presumed liver abscesses is l arger. She has a history of ulcerative colitis. She had a recent diagnosis of multiple lower lobe pulmonary emboli and she is on Coumadin. ALLERGIES: Please see below. HOME MEDICATIONS: Please see below. PAST MEDICAL HISTORY: Ulcerative colitis Graves' disease treated with radioactive iodine Pulmonary emboli Gallstones PAST SURGICAL HISTORY: Left total knee arthroplasty 2019 Right total knee 2015 Expiratory laparotomy in 2006 with sigmoid colectomy and colostomy related to obstruction from diverticulitis. This was complicated by abdominal fistulas. July 2009 mesh repair of hernia FAMILY HISTORY: Noncontributory SOCIAL HISTORY: Prior smoker. Quit in 1999. Denies alcohol or drugs. REVIEW OF SYSTEMS: Otherwise negative. PHYSICAL EXAMINATION: No video on patient side. LABORATORY DATA: 04/23/2020 hemoglobin 12.6 hematocrit 41.8 WBC 12.4 platelets 218 sodium 137 potassium 3.5 BUN 21 creatinine 1.03 total bilirubin 0.4 direct bilirubin 0.1 AST 45 ALT 64 ALP 237 INR 1.93 Imaging: I reviewed the CT abdomen with contrast performed 03/28/2020. Massively distended gallbladder filled with stones without adjacent fat stranding. I nterval enlargement of hypodense area within the liver which now measures 4.8 x 6.6 x 4.2 cm. Mild focal central intrahepatic biliary duct dilation. ASSESSMENT/PLAN: 73-year-old female with ulcerative colitis, cholelithiasis and enlarging hypodense lesion within the liver. Differential diagnosis includes abscess, biloma and/or underlying malignancy. Given the marked interval enlar gement, I agree she would benefit from drain placement for decompression for comfort and to aid with possible planned gallbladder removal. We discussed the risks and benefits of the procedure and patient would like to proceed. We'll schedule the patient for the procedure. Thank you for this referral. Cc Dr. Houston Allergies Coded Allergies: No Known Drug Allergies (Verified Allergy, Unknown, 02/27/19) Home Medications Scheduled Cefuroxime Axetil (Cefuroxime), 500 MG PO BID Doxycycline Hyclate (Doxycycline Hyclate), 100 MG PO BID Enoxaparin Sodium (Lovenox), 80 MG SC Q12H Fluoxetine Hcl (Fluoxetine HCl), 20 MG PO DAILY, (Reported) Guaifenesin (Mucinex), 1 TAB PO BID Levothyroxine Sodium (Levothyroxine Sodium), 125 MCG PO DAILY, (Reported) Potassium Chloride (Potassium Chloride), 10 MEQ PO DAILY, (Reported) Sulfasalazine (Sulfasalazine Dr), 500 MG PO QID, (Reported) Torsemide (Torsemide), 10 MG PO DAILY, (Reported) Warfarin Sodium (Warfarin Sodium), 1 TAB PO ASDIRECTED Scheduled PRN Acetaminophen (Tylenol Extra Strength), 1,000 MG PO TID PRN for PAIN, (Reported) Torsemide (Torsemide), 10 MG PO DAILY PRN for FLUID RETENTION, (Reported) Tramadol HCl (Tramadol HCl), 50 MG PO Q8HP PRN for MODERATE PAIN (PS 5-7) STEFANO MCCOY MD Apr 24, 2020 15:58
== END ==
LOC: M TMIRPOV 13:19
PROVIDERS: ATTEND Radiology Diagnostic Radiology
DX: K75.0 Abscess of liver (principal); K51.90 Ulcerative colitis, unspecified, without complications; K80.20 Calculus of gallbladder without cholecystitis without obstruction; Z79.01 Long term (current) use of anticoagulants; Z79.890 Hormone replacement therapy; Z79.899 Other long term (current) drug therapy; Z86.711 Personal history of pulmonary embolism; Z87.891 Personal history of nicotine dependence; Z96.653 Presence of artificial knee joint, bilateral

== ENCOUNTER 2020-04-23 15:54 | Emergency (ER) | payer MEDICARE, OTHER ==
[~2020-04-23] VITALS: Ht 147.3 cm; Wt 76.4 kg
[~2020-04-23 15:54] MED LIST changes: -WARF4TAB51 PO
[2020-04-23 17:35] LABS: BASO # 0.1 10^3/uL (0.0-0.2); BASO % 0.8 % (0.0-1.0); EOS # 0.9 10^3/uL (0.0-0.5); EOS % 7.1 % (0.0-3.0); HEMATOCRIT 41.8 % (36.0-47.0); HEMOGLOBIN 12.6 g/dl (12.0-15.5); LYMPH # 1.3 10^3/uL (1.5-5.0); LYMPH % 10.7 % (24.0-44.0); MEAN CORPUSCULAR HEMOGLOBIN 24.7 pg (27.0-33.0); MEAN CORPUSCULAR HGB CONC 30.1 g/dl (32.0-36.5); MEAN CORPUSCULAR VOLUME 81.8 fl (80.0-96.0); MONO # 1.4 10^3/uL (0.0-0.8); MONO % 11.2 % (0.0-5.0); NEUTROPHILS # 8.7 10^3/uL (1.5-8.5); NEUTROPHILS % 69.8 % (36.0-66.0); PLATELET COUNT, AUTOMATED 218 10^3/uL (150-450); RED BLOOD COUNT 5.11 10^6/uL (4.00-5.40); WHITE BLOOD COUNT 12.4 10^3/uL (4.0-10.0)
[2020-04-23 17:44] LABS: INR 1.93; PROTHROMBIN TIME 22.5 SECONDS (12.5-14.3)
[2020-04-23 18:02] LABS: ALBUMIN 3.2 GM/DL (3.2-5.2); BILIRUBIN,DIRECT 0.1 MG/DL (0.0-0.2); BILIRUBIN,TOTAL 0.4 MG/DL (0.2-1.0); CALCIUM LEVEL 9.7 MG/DL (8.8-10.2); CREATININE FOR GFR 1.03 MG/DL (0.55-1.30); GLOMERULAR FILTRATION RATE 55.9 (>39); POTASSIUM SERUM 3.5 MEQ/L (3.5-5.1); TOTAL PROTEIN 7.5 GM/DL (6.4-8.2)
[2020-04-23] MEDS ORDERED: WARF4TAB51 PO (18:57)
[2020-04-23 19:03] VITALS: BP 121/69
== END 2020-04-23 19:19 | disposition home or self-care (01) ==
LOC: M ED 15:54
DX: I82.401 Acute embolism and thrombosis of unspecified deep veins of right lower extremity (principal); R22.41 Localized swelling, mass and lump, right lower limb; R79.1 Abnormal coagulation profile; Z79.01 Long term (current) use of anticoagulants; Z79.899 Other long term (current) drug therapy

== ENCOUNTER → 2020-04-29 | Outpatient (CLI) | payer MEDICARE, OTHER ==
[~2020-04-29] MED LIST changes: +WARF4TAB51 PO
--- NOTE | 2020-04-29 15:00 | REP ---
INDICATION: R/O DVT, EDEMA. COMPARISON: Comparison study February 18, 2020 showed occlusive deep vein thrombosis in the right femoral and popliteal veins.. TECHNIQUE: Right lower extremity duplex venous scanning. FINDINGS: There is lack of compressibility and heterogeneous hypoechoic material occluding Doppler flow in the common femoral vein on the right and in the proximal superficial femoral vein segment on the right. These segments were clear on the previous study. Occlusive DVT. There is nonocclusive thrombus in the mid and distal femoral vein on the right and in the popliteal vein. These segments are somewhat improved as they were previously occluded with thrombus. No superficial thrombus is seen. IMPRESSION: Positive study for new occlusive deep vein thrombosis in the common femoral vein and proximal femoral vein segments in the right lower extremity. These vein segments contain new thrombus. There is nonocclusive thrombus in the mid and distal femoral vein and in the popliteal vein on the right. These segments are improved compared with the prior study which showed occlusive thrombosis here.. <Electronically signed by Sonny Rico > 04/29/20 [id number]
== END ==
LOC: M RAD 14:18
PROVIDERS: ATTEND Internal Medicine
DX: I81 Portal vein thrombosis (principal); R60.9 Edema, unspecified

== ENCOUNTER → 2020-05-01 | Outpatient (CLI) | payer MEDICARE, OTHER ==
[~2020-05-01] MED LIST changes: +LIDOCAINE 1% MDV 20ML VIAL As Ordered ONE; +MIDAZOLAM INJ 2MG/2ML VIAL (J2250 PER 1MG) As Ordered ONE; +NS 1,000 ML IV SCH; +PERCOCET 5MG/325MG TAB As Ordered ONE; +PROMETHAZINE INJ 25 MG/ML VIAL (J2550) As Ordered ONE; +cefTRIAXone SOD 1GM VIAL (J0696 PER 250MG) As Ordered ONE; +diphenhydrAMINE 50MG/ML VIAL (J1200) As Ordered ONE; +fentaNYL 100 MCG/2 ML INJECTION (J3010) As Ordered ONE
--- NOTE | 2020-05-01 10:11 | IRHP ---
[facility] IR Pre-Procedure H & P General Date of Service: May 01, 2020 Procedure: Same Day Surgery Interval History and Physical I have seen the patient and reviewed last H & P performed within 30 days. There is no significant interval change. History of Present Illness Chief Complaint The patient is a 74-year-old female admitted with a reason for visit of Liver Abscess. PRE-PROCEDURE DIAGNOSIS: liver abscess HEART: normal rate. LUNGS: normal breathing at rest. ASA Classification ASA Classification: III-Severe systemic dis. Mallampati Score: II NPO: Yes Problems with prior sedation: No Obstructive Sleep Apnea: No Plan moderate sedation Allergies Coded Allergies: No Known Drug Allergies (Verified Allergy, Unknown, 02/27/19) Home Medications Scheduled Enoxaparin Sodium (Lovenox), 80 MG SC Q12H Fluoxetine Hcl (Fluoxetine HCl), 20 MG PO DAILY, (Reported) Guaifenesin (Mucinex), 1 TAB PO BID Levothyroxine Sodium (Levothyroxine Sodium), 125 MCG PO DAILY, (Reported) Potassium Chloride (Potassium Chloride), 10 MEQ PO DAILY, (Reported) Sulfasalazine (Sulfasalazine Dr), 500 MG PO QID, (Reported) Torsemide (Torsemide), 10 MG PO DAILY, (Reported) Warfarin Sodium (Warfarin Sodium), 1 TAB PO ASDIRECTED Scheduled PRN Acetaminophen (Tylenol Extra Strength), 1,000 MG PO TID PRN for PAIN, (Reported) Torsemide (Torsemide), 10 MG PO DAILY PRN for FLUID RETENTION, (Reported) Tramadol HCl (Tramadol HCl), 50 MG PO Q8HP PRN for MODERATE PAIN (PS 5-7) Discontinued Medications Cefuroxime Axetil (Cefuroxime), 500 MG PO BID Discontinued Reason: Pt states not taking VS, I&O, 24H, Fishbone Laboratory Data 24H LABS Laboratory Tests 2 05/01/20 09:44: STEFANO MCCOY MD May 01, 2020 10:11
[2020-05-01 10:14] LABS: INR 1.12; PROTHROMBIN TIME 14.6 SECONDS (12.5-14.3)
--- NOTE | 2020-05-01 11:24 | POST-OPPD ---
Postoperative Procedure Note Date Of Procedure: May 01, 2020 Time Of Procedure: 11:21 Liver drain placement using CT guidance Clinical Information:Hypodense collection in the right hepatic lobe. Associated with a distended gallbladder filled with gallstones. Right abdominal discomfort. Physician: Dr. Maguire. Procedure: The patient was advised of the benefits, risks, and alternatives of the procedure and informed consent was obtained. A time out was performed with verification of the patient's name, MRN, site of procedure, and type of procedure to be performed. Moderate sedation was performed by the physician including the presence of an independent trained RN, who assisted in monitoring the patient's level of consciousness and physiological status. Following the administration of Fentanyl and Versed, the physician spent 45 minutes of continuous rjyr-ta-vnih time with the patient. The patient was placed in the position on the CT gantry and a scan was performed through the region of interest. This demonstrates a large hypodense collection in the right hepatic lobe. Distended gallbladder with stones. After marking the overlying skin, the patient was prepped and draped in the usual sterile fashion. The soft tissues overlying the anticipated puncture site were anesthetized with lidocaine. Through this anesthetized region, an 18 G Chiba needle was passed into the liver collection with intermittent CT guidance.Thick serous sanguinous fluid was aspirated. An Amplatz wire was advanced into the fluid collection, over which a 10 Japanese all-purpose drain was passed. Subsequent localized CT-scanning was performed to confirm the catheter location. The catheter was then locked, sutured in position with suture and placed to gravity drainage. The patient tolerated the procedure well and was returned to the PRU in stable condition. EBL: < 5 mL. Complications: None. Conclusion: 1. Successful placement of a 10 Japanese drain in the liver collection. 2. The catheter should be flushed with 10 ml of normal saline 3 times a day. 3. Patient to follow up in IR clinic next week. Thank you for this referral. Cc STEFANO Herrera MD May 01, 2020 11:24
[2020-05-01] MEDS: PERCOCET 5MG/325MG TAB PO PRN (12:47)
[2020-05-01 13:10] VITALS: BP 132/50
== END ==
LOC: M IRPRO 09:19
PROVIDERS: ATTEND Radiology Diagnostic Radiology
DX: K75.0 Abscess of liver (principal); K80.20 Calculus of gallbladder without cholecystitis without obstruction
CPT/HCPCS: 47534; 77012; 85610; 87205; 99152; 99153; C1769; J0696; J1200; J2250; J3010

== ENCOUNTER → 2020-05-02 | Outpatient (CLI) | payer MEDICARE, OTHER ==
[~2020-05-02] MED LIST changes: -LIDOCAINE 1% MDV 20ML VIAL As Ordered ONE; -MIDAZOLAM INJ 2MG/2ML VIAL (J2250 PER 1MG) As Ordered ONE; -NS 1,000 ML IV SCH; -PERCOCET 5MG/325MG TAB As Ordered ONE; -PROMETHAZINE INJ 25 MG/ML VIAL (J2550) As Ordered ONE; -cefTRIAXone SOD 1GM VIAL (J0696 PER 250MG) As Ordered ONE; -diphenhydrAMINE 50MG/ML VIAL (J1200) As Ordered ONE; -fentaNYL 100 MCG/2 ML INJECTION (J3010) As Ordered ONE
[2020-05-02 14:00] LABS: FREE T4 1.79 NG/DL (0.76-1.46); THYROID STIMULATING HORMONE 0.311 uIU/ML (0.358-3.740)
== END ==
LOC: M PLALAB 10:27
PROVIDERS: ATTEND Internal Medicine Endocrinology, Diabetes & Metabolism
DX: E89.0 Postprocedural hypothyroidism (principal)

== ENCOUNTER → 2020-05-06 | Outpatient (CLI) | payer MEDICARE, OTHER ==
--- NOTE | 2020-05-06 10:21 | REP ---
INDICATION: LIVER ABSCESS. COMPARISON: Abdomen CT without IV contrast during percutaneous CT-guided drainage of and a patent abscess on 05/01/2020. TECHNIQUE: CT of the abdomen, pelvis not included, without IV contrast. FINDINGS: There is a hypoechoic lesion in the right lobe of the liver containing a drainage catheter measuring up to 9.3 cm greatest diameter. This measured up to 9.7 cm greatest diameter on 05/01/2020. There is a new focal hypodensity in the hepatic left lobe medial segment measuring up to 2.5 cm on image 36, not definitely present previously The pancreas, spleen, adrenals are unremarkable. There are bilateral nonobstructive renal calculi. These are unchanged. The abdominal aorta is unremarkable except for occasional calcified atheroma. There is no periaortic adenopathy or mass. There is no pneumoperitoneum. No abdominal free fluid is identified. The gallbladder is distended and contains multiple gallbladder calculi with rim calcification as previously. There is no gallbladder wall thickening or pericholecystic fluid. There is no intrahepatic or extrahepatic biliary duct dilatation. There is a wide-mouth midline ventral hernia containing a loop of colon. The peritoneal defect measures 8.5 cm transversely and is 2.9 cm depth. There is no bowel distention or obstruction. IMPRESSION: The hepatic abscess contains a drainage catheter but has minimally decreased in size. There is a new 2.5 cm hypoechoic zone in the hepatic left lobe medial segment as an interval change. Distended gallbladder with multiple gallbladder calculi having rim calcification, unchanged. There is no gallbladder wall thickening or pericholecystic fluid. No biliary duct dilatation. No pneumoperitoneum or ascites. Ventral hernia as described. Nonobstructive renal calculi. <Electronically signed by Ramiro Anthony > 05/06/20 1015
== END ==
LOC: M RAD 09:40
PROVIDERS: ATTEND Radiology Diagnostic Radiology
DX: K75.0 Abscess of liver (principal); N20.0 Calculus of kidney; K80.20 Calculus of gallbladder without cholecystitis without obstruction; K43.9 Ventral hernia without obstruction or gangrene

== ENCOUNTER → 2020-05-07 | Outpatient (CLI) | payer MEDICARE, OTHER ==
[~2020-05-07] MED LIST changes: +ISOVUE-300 61% 50ML VIAL As Ordered ONE; +LIDOCAINE 1% MDV 20ML VIAL As Ordered ONE; +MIDAZOLAM INJ 2MG/2ML VIAL (J2250 PER 1MG) As Ordered ONE; +cefTRIAXone SOD 1GM VIAL (J0696 PER 250MG) As Ordered ONE; +diphenhydrAMINE 50MG/ML VIAL (J1200) As Ordered ONE; +fentaNYL 100 MCG/2 ML INJECTION (J3010) As Ordered ONE
--- NOTE | 2020-05-07 14:29 | IRHP ---
[facility] IR Pre-Procedure H & P General Date of Service: May 07, 2020 Procedure: Same Day Surgery Interval History and Physical I have seen the patient and reviewed last H & P performed within 30 days. There is no significant interval change. History of Present Illness Chief Complaint The patient is a 74-year-old female admitted with a reason for visit of Liver Abscess. PRE-PROCEDURE DIAGNOSIS: liver abscess HEART: normal rate. LUNGS: normal breathing at rest. ASA Classification ASA Classification: III-Severe systemic dis. Mallampati Score: II NPO: Yes Problems with prior sedation: No Obstructive Sleep Apnea: No Plan moderate sedation Allergies Coded Allergies: No Known Drug Allergies (Verified Allergy, Unknown, 02/27/19) Home Medications Scheduled Enoxaparin Sodium (Lovenox), 80 MG SC Q12H Fluoxetine Hcl (Fluoxetine HCl), 20 MG PO DAILY, (Reported) Guaifenesin (Mucinex), 1 TAB PO BID Levothyroxine Sodium (Levothyroxine Sodium), 125 MCG PO DAILY, (Reported) Potassium Chloride (Potassium Chloride), 10 MEQ PO DAILY, (Reported) Sulfasalazine (Sulfasalazine Dr), 500 MG PO QID, (Reported) Torsemide (Torsemide), 10 MG PO DAILY, (Reported) Warfarin Sodium (Warfarin Sodium), 1 TAB PO ASDIRECTED Scheduled PRN Acetaminophen (Tylenol Extra Strength), 1,000 MG PO TID PRN for PAIN, (Reported) Torsemide (Torsemide), 10 MG PO DAILY PRN for FLUID RETENTION, (Reported) Tramadol HCl (Tramadol HCl), 50 MG PO Q8HP PRN for MODERATE PAIN (PS 5-7) Discontinued Medications Cefuroxime Axetil (Cefuroxime), 500 MG PO BID Discontinued Reason: Pt states not taking STEFANO MCCOY MD May 07, 2020 14:29
--- NOTE | 2020-05-07 15:10 | POST-OPPD ---
Postoperative Procedure Note Date Of Procedure: May 02, 2020 Time Of Procedure: 16:00 Port Removal / Explant Clinical Information:Crohn's disease. Port no longer needed. Physician: Dr. Maguire Procedure: The patient was advised of the benefits, risks, and alternatives of the procedure and informed consent was obtained. A time out was performed with verification of the patient's name, MRN, site of procedure, and type of procedure to be performed. The patient was positioned in the supine position on the angiographic table. The site was prepped and draped in the usual sterile fashion. Moderate sedation was performed by the physician including the presence of an independent trained RN who assisted in monitoring the patient's level of consciousness and physiological status. Following the administration of fentanyl and Versed the physician spent 30 minutes of continuous [id number] time with the patient. A biomass facilitator radiograph reveals a right-sided port. The soft tissues overlying the port were anesthetized with lidocaine. An incision was made over the port using a 15 blade scalpel in the location of the prior incision. The catheter was then freed with blunt dissection and extracted. Pressure was applied to obtain hemostasis. The port was then freed with blunt dissection and subsequently removed. There were no signs of infection. After hemostasis was achieved, the incision was closed with interrupted deep 3-0 Vicryl sutures and subcuticular Monocryl suture followed by glue and steri-strips. The site was covered with a sterile dressing. The patient tolerated the procedure well and was returned to the PRU in stable condition. EBL:Less than 5 mL Complications:None. Conclusions: 1. Successful explant of a right-sided port. 2. No signs of infection. Thank you for this referral STEFANO MAGUIRE MD May 07, 2020 15:10
[2020-05-07 18:09] VITALS: BP 120/60
--- NOTE | 2020-05-09 09:32 | POST-OPPD ---
Postoperative Procedure Note Date Of Procedure: May 07, 2020 Time Of Procedure: 16:00 IR Abscessogram under fluoroscopic guidance. IR Attempted drain upsize. Clinical Information:Large hypodense area within the liver suspected to be liver abscess. Present 10 Welsh drain drained 200 mL sero sanguinous fluid and stopped. No longer draining. Area on CT remains unchanged. Physician: Dr. Maguire. Procedure: The patient was advised of the benefits, risks, and alternatives of the procedure and informed consent was obtained. A time out was performed with verification of the patient's name, MRN, site of procedure, and type of procedure to be performed. Moderate sedation was performed by the physician including the presence of an independent trained RN, who assisted in monitoring the patient's level of consciousness and physiological status. Following the administration of Fentanyl and Versed, the physician spent 60 minutes of continuous [id number]-pf-[id number] time with the patient. The patient was placed in the supine position on the angio table. A instrumentation instructor radiograph demonstrates pigtail catheter in the right upper quadrant. Injection through the present drain demonstrates backtracking of contrast into the perihepatic region. There is filling of the suspected cavity within the liver but this does not correlate with the size seen on CT. A wire was advanced through the catheter into the cavity. The catheter was removed over the wire. A kumpe catheter was advanced over the wire into the cavity. The wire and catheter under fluoroscopy guidance do not behave as as they would in a liver abscess. Limited motion of wire. No pus could be aspirated. No backflow of liquid after removal of the catheter. No pressure within this cavity. Therefore, a replacement larger drain was not placed. Catheter and wire were removed, pressure held and hemostasis achieved. A sterile dressing was applied to the site. The patient tolerated the procedure well and was returned to the PRU in stable condition. EBL: < 5 mL. Complications: None. Conclusion: 1. IR fluoroscopy-guided abscessogram does not correlate with size of lesion on CT. 2. No pus could be aspirated from this cavity and there is no fluid under pressure. 3. Present lesion in the liver does not behave as an abscess. Patient will be referred to hepato-biliary surgery for further evaluation. Thank you for this referral. Cc Dr. Celso MAGUIRE,STEFANO MARLOW May 09, 2020 09:31
== END ==
LOC: M IRPRO 12:24
PROVIDERS: ATTEND Radiology Diagnostic Radiology
DX: K76.89 Other specified diseases of liver (principal); Z79.01 Long term (current) use of anticoagulants; Z79.890 Hormone replacement therapy; Z79.899 Other long term (current) drug therapy
CPT/HCPCS: 47537; 99152; 99153; C1729; C1769; C1887; J0696; J1200; J2250; J3010; Q9967

== ENCOUNTER 2020-05-09 16:44 | Emergency (ER) | payer MEDICARE, OTHER ==
[~2020-05-09] VITALS: Ht 147.3 cm; Wt 74.5 kg
[~2020-05-09 16:44] MED LIST changes: -ISOVUE-300 61% 50ML VIAL As Ordered ONE; -LIDOCAINE 1% MDV 20ML VIAL As Ordered ONE; -MIDAZOLAM INJ 2MG/2ML VIAL (J2250 PER 1MG) As Ordered ONE; -cefTRIAXone SOD 1GM VIAL (J0696 PER 250MG) As Ordered ONE; -diphenhydrAMINE 50MG/ML VIAL (J1200) As Ordered ONE; -fentaNYL 100 MCG/2 ML INJECTION (J3010) As Ordered ONE
[2020-05-09] MEDS ORDERED: ACETAMINOPHEN 325 MG TAB PO ONE (17:30)
[2020-05-09] MEDS ORDERED: NS 1,000 ML IV ONE ×2 (18:00→22:00)
[2020-05-09] MEDS ORDERED: ONDANSETRON 4MG/2ML VIAL IV ONE (18:00)
[2020-05-09] MEDS ORDERED: MORPHINE 4 MG/ML 1ML VIAL/SYRINGE (J2270) IV ONE (18:00)
[2020-05-09 18:32] LABS: BASO # 0.1 10^3/uL (0.0-0.2); BASO % 0.5 % (0.0-1.0); EOS # 0.7 10^3/uL (0.0-0.5); EOS % 3.2 % (0.0-3.0); HEMATOCRIT 38.5 % (36.0-47.0); HEMOGLOBIN 11.9 g/dl (12.0-15.5); LYMPH # 1.1 10^3/uL (1.5-5.0); LYMPH % 5.1 % (24.0-44.0); MEAN CORPUSCULAR HEMOGLOBIN 25.4 pg (27.0-33.0); MEAN CORPUSCULAR HGB CONC 30.9 g/dl (32.0-36.5); MEAN CORPUSCULAR VOLUME 82.1 fl (80.0-96.0); MONO # 2.2 10^3/uL (0.0-0.8); MONO % 10.5 % (0.0-5.0); NEUTROPHILS # 16.4 10^3/uL (1.5-8.5); NEUTROPHILS % 79.7 % (36.0-66.0); PLATELET COUNT, AUTOMATED 298 10^3/uL (150-450); RED BLOOD COUNT 4.69 10^6/uL (4.00-5.40); WHITE BLOOD COUNT 20.6 10^3/uL (4.0-10.0)
[2020-05-09 18:44] LABS: INR 1.03; PROTHROMBIN TIME 13.7 SECONDS (12.5-14.3)
[2020-05-09 19:03] LABS: ALBUMIN 2.7 GM/DL (3.2-5.2); ALT/SGPT 22 U/L (12-78); BILIRUBIN,DIRECT 0.2 MG/DL (0.0-0.2); BILIRUBIN,TOTAL 0.4 MG/DL (0.2-1.0); BLOOD UREA NITROGEN 14 MG/DL (7-18); CALCIUM LEVEL 9.1 MG/DL (8.8-10.2); CARBON DIOXIDE LEVEL 27 MEQ/L (21-32); CHLORIDE LEVEL 101 MEQ/L (98-107); CK-MB VALUE MASS < 1.0 NG/ML (<3.6); CPK CREATINE PHOSPHOKINASE 18 U/L (26-192); CREATININE FOR GFR 0.89 MG/DL (0.55-1.30); GLOMERULAR FILTRATION RATE > 60.0 (>39); GLUCOSE, FASTING 127 MG/DL (70-100); LIPASE 133 U/L (73-393); MB/CK RELATIVE INDEX 5.56 (< OR =4); POTASSIUM SERUM 3.6 MEQ/L (3.5-5.1); SODIUM LEVEL 138 MEQ/L (136-145); TOTAL PROTEIN 6.7 GM/DL (6.4-8.2); TROPONIN I < 0.02 NG/ML (< 0.10)
[2020-05-09] MEDS ORDERED: ISOVUE-370 76% 100ML VIAL As Ordered ONE (19:12)
[2020-05-09 20:46] LABS: RSV AMPLIFICATION NEGATIVE (NEGATIVE)
[2020-05-09 21:05] LABS: APPEARANCE, URINE CLEAR (CLEAR); BACTERIA, URINE AUTO NEGATIVE (NEGATIVE); BILIRUBIN, URINE AUTO NEGATIVE (NEGATIVE); BLOOD, URINE BLOOD NEGATIVE (NEGATIVE); COLOR, URINE YELLOW (YELLOW); GLUCOSE, URINE (UA) AUTO NEGATIVE (NEGATIVE); KETONE, URINE AUTO NEGATIVE (NEGATIVE); LEUKOCYTE ESTERASE, URINE AUTO 2+ (NEGATIVE); NITRITE, URINE AUTO NEGATIVE (NEGATIVE); PROTEIN, URINE AUTO 1+ mg/dL (NEGATIVE); RBC, URINE AUTO 3 /HPF (0-3); SQUAMOUS EPITHELIAL CELL UR AU 0 /HPF (0-6); UROBILINOGEN, URINE AUTO 0.2 mg/dL (0.0-2.0); WBC, URINE AUTO 16 /HPF (0-3)
[2020-05-09 21:06] LABS: SPECIFIC GRAVITY URINE AUTO >1.060 (1.002-1.035)
--- NOTE | 2020-05-09 21:16 | REPVR ---
PROCEDURE INFORMATION: Exam: CT Angiography Chest With Contrast Exam date and time: 05/09/2020 7:22 PM Age: 74 years old Clinical indication: Shortness of breath; Chest pain; Additional info: Pain/sob HX pe TECHNIQUE: Imaging protocol: Computed tomographic angiography of the chest with intravenous contrast. 3D rendering (Not supervised by radiologist): MIP and/or 3D reconstructed images were created by the technologist. Radiation optimization: All CT scans at this facility use at least one of these dose optimization techniques: automated exposure control; mA and/or kV adjustment per patient size (includes targeted exams where dose is matched to clinical indication); or iterative reconstruction. Contrast material: ISOVUE 370; Contrast volume: 100 ml; Contrast route: INTRAVENOUS (IV); COMPARISON: 1. CT ANGIO CHEST 10/11/2016 8:[address] ABD/PEL W/IV CONTRAST ONLY 02/18/2020 6:30:35 AM FINDINGS: Pulmonary arteries: There are filling defects in the subsegmental pulmonary arteries supplying the posterior segment of the right lower lobe and left lower lobar pulmonary artery, which are compatible with pulmonary emboli that have partially resolved since the prior CT abdomen and pelvis on 02/18/2020. No new pulmonary emboli are noted. Aorta: The thoracic aorta is intact and patent. There is no thoracic aortic aneurysm, pseudoaneurysm, penetrating atherosclerotic ulcer, intramural hematoma, or dissection. There are mild atherosclerotic calcifications. Great vessels off aortic arch: The brachiocephalic artery, imaged proximal portions of the common carotid arteries, imaged proximal portions of the vertebral arteries, and subclavian arteries are intact. No stenosis or occlusion of these vessels is noted. Thyroid: There is a 1.8 cm nodule in the left lobe of the thyroid gland that has increased in size from 1.2 cm since the prior CTA chest on 10/11/2016 (image 45 of the coronal series 403). The thyroid gland was not fully imaged. Tracheobronchial tree: Intact and patent. Lungs: There is mild atelectasis predominantly in the dependent portions of the upper and lower lobes. No pulmonary infarct, lung consolidation, or mass is noted. Pleural space: Normal. No pneumothorax or pleural effusion. Heart: No cardiomegaly or pericardial effusion. The ratio of the diameter of the right ventricle to the diameter of the left ventricle measures less than 1, which is within normal limits and there is no CT evidence for a right ventricular strain. Mediastinal space: No mediastinal fluid collection or pneumomediastinum is noted. Lymph nodes: Normal. No enlarged lymph nodes. Diaphragm: There is a large right vicki diaphragmatic hernia containing the liver that is similar in appearance compared to the prior CTA chest on 10/11/2016. There is a small fat containing left posteromedial diaphragmatic hernia and a small fat containing left anteromedial diaphragmatic hernia that are similar in appearance compared to the prior CTA chest on 10/11/2016. Bones/joints: There is no acute fracture or dislocation. There are old healed right rib fracture deformities. Incidental note is made of bone islands in the right anterior 8th rib and left lateral 8th rib, which are stable compared to the prior CTA chest on 10/11/2016. There are degenerative changes involving the thoracic spine. The bones have a demineralized appearance. Soft tissues: Unremarkable. No soft tissue fluid collection. Other findings: For details regarding the abdominal and pelvic findings, refer to the CT abdomen and pelvis report on 05/09/2020. IMPRESSION: 1. Pulmonary emboli in both lower lobes that have partially resolved since the prior CT abdomen and pelvis on 02/18/2020. No pulmonary infarct or CT evidence for a right ventricular strain. 2. 1.8 cm nodule in the left lobe of the thyroid gland that has increased in size from 1.2 cm since the prior CTA chest on 10/11/2016. Further evaluation with a thyroid ultrasound is suggested, which can be performed on a nonemergent basis. COMMENTS: Consistent with the [employer]'s Incidental Findings Committee white paper (J Am Vincenzo Radiol 2015): In patients aged 35 years and older with an incidental thyroid nodule equal to or greater than 1.[address], MRI or extrathyroidal US, further evaluation with dedicated thyroid US is recommended for patients with normal life expectancy and without comorbidities. For smaller nodules without suspicious features, no further evaluation or follow up is recommended. Electronically signed by: Max Sharma On 05/09/2020 21:16:35 PM
--- NOTE | 2020-05-09 21:19 | REPVR ---
PROCEDURE INFORMATION: Exam: CT Abdomen And Pelvis With Contrast Exam date and time: 05/09/2020 7:22 PM Age: 74 years old Clinical indication: Fever; Abdominal pain; Generalized; Additional info: Pain/fever TECHNIQUE: Imaging protocol: Computed tomography of the abdomen and pelvis with intravenous contrast. Radiation optimization: All CT scans at this facility use at least one of these dose optimization techniques: automated exposure control; mA and/or kV adjustment per patient size (includes targeted exams where dose is matched to clinical indication); or iterative reconstruction. Contrast material: ISOVUE 370; Contrast volume: 100 ml; Contrast route: INTRAVENOUS (IV); COMPARISON: 1. CT ABD/PEL W/IV CONTRAST ONLY 02/18/2020 6:30 AM 2. US - PV-Humberto 02/18/2020 2:42:[address] ANGIO CHEST 05/09/2020 7:16:05 PM 4. MA - CT Abdomen without contrast 05/06/2020 9:59:45 AM 5. MA - CT Abdomen with contrast 03/28/2020 11:40:00 AM 6. SR - CT ABD PELVIS W/O CONTRAST 09/17/2015 9:30:[address] ANGIO CHEST 10/11/2016 8:21:10 PM FINDINGS: Tubes, catheters and devices: The percutaneous drainage catheter has been removed from the hepatic abscess since the prior CT abdomen and pelvis on 05/06/2020. Lungs: There are filling defects in the subsegmental pulmonary arteries supplying the posterior segment of the right lower lobe, which are compatible with pulmonary emboli that have improved compared to the prior CT abdomen and pelvis on 02/18/2020. There is mild atelectasis in both lower lobes. Refer to the CTA chest report on 05/09/2020 for further details. Heart: No cardiomegaly. No pericardial effusion. Diaphragm: There is a large right anterior diaphragmatic hernia containing the liver that is similar in appearance compared to the prior CTA chest on 10/11/2016. There is a small fat containing left posteromedial diaphragmatic hernia and a small fat containing left anteromedial diaphragmatic hernia that are similar in appearance compared to the prior CTA chest on 10/11/2016. Liver: There is a 9.3 cm x 9.6 cm x 10 cm fluid collection in the right hepatic lobe, which is unchanged in size compared to the prior CT abdomen and pelvis on 05/06/2020. Acute hemorrhage and small foci of gas have developed in the fluid collection since the prior CT abdomen and pelvis on 05/06/2020. However, there is no active extravasation of contrast to indicate active hemorrhage in the liver. No subcapsular fluid collection is noted in the liver. There is a 10 mm low-attenuation lesion in the superolateral segment 2 of the left hepatic lobe and a 13 mm low-attenuation lesion in the posteroinferior segment 6 of the right hepatic lobe, which are stable compared to the prior CT abdomen and pelvis on 05/06/2020, but have developed since the prior CT abdomen and pelvis on 02/18/2020, and may represent hepatic abscesses. Gallbladder and bile ducts: The gallbladder is distended and contains several calculi. No pericholecystic inflammatory fat stranding is noted. There is minimal intrahepatic biliary ductal dilation that is similar in appearance compared to the prior CT abdomen and pelvis on 03/28/2020. No calcified stones are seen in the common bile duct. Pancreas: There is a 12 mm cyst with simple characteristics in the head of the pancreas, which is stable compared to the prior CT abdomen and pelvis on 09/17/2015. No inflammatory fat stranding is noted around the pancreas. Spleen: The spleen is heterogeneous in appearance, which is likely secondary to the arterial timing of the contrast bolus. No splenomegaly. Adrenal glands: Normal. No adrenal mass is noted. Kidneys and ureters: There are benign-appearing cysts in both kidneys, the largest measuring 17 mm in the left kidney, which are stable compared to the prior CT abdomen and pelvis on 02/18/2020 and for which further follow-up is not necessary. There is bilateral nephrolithiasis. No stones are noted in the ureters. Stomach and bowel: The stomach is decompressed, limiting its optimal evaluation. The small bowel is unremarkable. There is no evidence for a bowel obstruction, diverticulosis, diverticulitis, colitis, perforated viscus, pneumatosis intestinalis, intussusception, or volvulus. A colonic anastomosis is noted at the junction of the sigmoid colon and descending colon. Appendix: The appendix is not identified and may have been removed. No dilated blind ending tubular structure, inflammatory fat stranding, or fluid is noted in the expected location of the appendix. Intraperitoneal space: There are surgical clips in the abdomen. No free air or free fluid is noted. Retroperitoneal space: No fluid collection. No mass. No fluid collection. No mass. Vasculature: There is a filling defect in the left common femoral vein and left femoral vein in the left upper thigh (images 135-145 of the axial series 501), which is compatible with a deep vein thrombosis that has developed since the prior left lower extremity venous ultrasound on 02/18/2020. There is heterogeneous opacification of the main portal vein, superior mesenteric vein, and inferior mesenteric vein, which may represent admixture artifact rather than thromboses. The abdominal aorta is patent, normal in caliber, and there is no dissection. The iliac arteries, common femoral arteries, renal arteries, celiac artery, superior mesenteric artery, and inferior mesenteric artery are patent. There are mild atherosclerotic calcifications. Lymph nodes: No enlarged lymph nodes. Urinary bladder: The partially distended urinary bladder is unremarkable. No stones or masses are seen in the bladder. Reproductive: The uterus is anterverted and unremarkable. The ovaries are unremarkable. Bones/joints: There is no acute fracture or dislocation. There are degenerative changes involving the lumbar spine. The bones have a demineralized appearance. Incidental note is made of a small bone island in the left femoral head. Soft tissues: There is a large ventral hernia containing a portion of the mid transverse colon that is similar in appearance compared to the prior CT abdomen and pelvis on 05/06/2020. No bowel obstruction or strangulation is noted. There is a small fat containing indirect right inguinal hernia that is stable compared to the prior CT abdomen and pelvis on 02/18/2020. IMPRESSION: 1. Deep vein thrombosis in the left common femoral vein and left femoral vein in the left upper thigh, which have developed since the prior left lower extremity venous ultrasound on 02/18/2020. 2. Pulmonary emboli that have improved in the right lower lobe compared to the prior CT abdomen and pelvis on 02/18/2020. 3. 9.3 cm x 9.6 cm x 10 cm abscess in the right hepatic lobe, which is stable in size compared to the prior CT abdomen and pelvis on 05/06/2020, and there is acute hemorrhage and small foci of gas within the abscess that have developed since removal the percutaneous drainage catheter from the abscess in the prior CT abdomen and pelvis on 05/06/2020. No active extravasation of contrast to suggest active hemorrhage. 4. 10 mm low-attenuation lesion in the superolateral segment 2 of the left hepatic lobe and a 13 mm low-attenuation lesion in the posteroinferior segment 6 of the right hepatic lobe, which are stable compared to the prior CT abdomen and pelvis on 05/06/2020, but have developed since the prior CT abdomen and pelvis on 02/18/2020, and may represent hepatic abscesses. 5. Cholelithiasis. 6. Bilateral nonobstructive nephrolithiasis. 7. Large ventral hernia containing a portion of the mid transverse colon that is similar in appearance compared to the prior CT abdomen and pelvis on 05/06/2020. No bowel obstruction or strangulation. 8. Heterogeneous opacification of the main portal vein, superior mesenteric vein, and inferior mesenteric vein, which may represent admixture artifact rather than thromboses. 9. 12 mm cyst with simple characteristics in the head of the pancreas, which is stable compared to the prior CT abdomen and pelvis on 09/17/2015. Reimaging every 2 years for 10 years is recommended. (Reference: Lidia, 2017) REFERENCES: Lidia ZIEGLER, et al. Management of Incidental Pancreatic Cysts: A White Paper of the ACR Incidental Findings Committee. J Am Vincenzo Radiol. 2017;14(7):911-923. Electronically signed by: Max Sharma On 05/09/2020 21:19:23 PM
[2020-05-09] MEDS ORDERED: AMPICILLIN SOD/SULBACTAM SOD 3 GM in D5W MINI-BAG PLUS 100 ML IV ONE (22:00)
[2020-05-09 23:15] VITALS: BP 114/56
--- NOTE | 2020-05-11 12:17 | ECGEPIP ---
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
[2020-05-13] MEDS ORDERED: METOPROLOL 5 MG/5 ML VIAL As Ordered ONE (00:31)
== END 2020-05-09 23:34 | disposition short-term general hospital (02) ==
LOC: M ED 16:44 → UNDOADMIN 21:36 → M ED INP 21:36 → UNDODISIN 23:27
DX: K75.0 Abscess of liver (principal); A41.9 Sepsis, unspecified organism; T81.44XA Sepsis following a procedure, initial encounter; R06.02 Shortness of breath; R94.31 Abnormal electrocardiogram [ECG] [EKG]; I82.412 Acute embolism and thrombosis of left femoral vein; I26.99 Other pulmonary embolism without acute cor pulmonale; N20.0 Calculus of kidney; K80.20 Calculus of gallbladder without cholecystitis without obstruction; K86.2 Cyst of pancreas; K43.9 Ventral hernia without obstruction or gangrene; K76.89 Other specified diseases of liver; E04.1 Nontoxic single thyroid nodule; K59.00 Constipation, unspecified; I11.0 Hypertensive heart disease with heart failure; E11.9 Type 2 diabetes mellitus without complications; R51.9 Headache, unspecified; R25.1 Tremor, unspecified; K51.90 Ulcerative colitis, unspecified, without complications; E05.00 Thyrotoxicosis with diffuse goiter without thyrotoxic crisis or storm; Z79.890 Hormone replacement therapy; Z79.899 Other long term (current) drug therapy; Z79.01 Long term (current) use of anticoagulants
CPT/HCPCS: 36415; 71275; 74177; 80048; 80076; 81001; 82550; 82553; 83605; 83690; 84484; 85025; 85610; 85730; 87040; 87086; 87631; 93005; 96361; 96365; 99285; J2270; J2405; Q9967

== ENCOUNTER 2020-05-31 07:25 | Inpatient (IN) | payer MEDICARE, OTHER ==
[~2020-05-31] VITALS: Ht 147.3 cm; Wt 77.2 kg
[~2020-05-31 07:25] MED LIST changes: +LEVOTHYROXINE 88MCG TABLET (0.088 MG) PO SCH
[2020-05-31] MEDS ORDERED: NS 1,000 ML IV SCH (07:32)
[2020-05-31] MEDS ORDERED: NS 1,000 ML IV ONE (07:45)
[2020-05-31] MEDS ORDERED: PIPERACILLIN/TAZOBACTAM SOD 4.5 GM in D5W MINI-BAG PLUS 50 ML IV ONE (07:45)
[2020-05-31] MEDS ORDERED: ACETAMINOPHEN TAB 650MG DOSE (2X325MG) PO ONE (07:45)
--- NOTE | 2020-05-31 08:05 | REP ---
INDICATION: abdominal pain COMPARISON: 02/13/2019 TECHNIQUE: Portable AP view of the chest FINDINGS: Stable elevation to portion of the right hemidiaphragm is unchanged. Lung spence demonstrate chronic changes. Small scattered areas of linear atelectasis cannot be excluded. No focal consolidation, effusion, or pneumothorax. Skeletal structures demonstrate osteopenia and degenerative changes. IMPRESSION: Small areas linear atelectasis versus chronic change noted. <Electronically signed by Zev Burleson > 05/31/20 [id number]
[2020-05-31 08:10] LABS: BASO # 0.1 10^3/uL (0.0-0.2); BASO % 0.3 % (0.0-1.0); EOS # 0.5 10^3/uL (0.0-0.5); EOS % 2.5 % (0.0-3.0); HEMATOCRIT 34.5 % (36.0-47.0); HEMOGLOBIN 10.2 g/dl (12.0-15.5); LYMPH # 0.6 10^3/uL (1.5-5.0); LYMPH % 3.5 % (24.0-44.0); MEAN CORPUSCULAR HEMOGLOBIN 23.8 pg (27.0-33.0); MEAN CORPUSCULAR HGB CONC 29.6 g/dl (32.0-36.5); MEAN CORPUSCULAR VOLUME 80.6 fl (80.0-96.0); MONO # 1.3 10^3/uL (0.0-0.8); MONO % 7.2 % (0.0-5.0); NEUTROPHILS # 15.2 10^3/uL (1.5-8.5); NEUTROPHILS % 84.4 % (36.0-66.0); PLATELET COUNT, AUTOMATED 177 10^3/uL (150-450); RED BLOOD COUNT 4.28 10^6/uL (4.00-5.40)
[2020-05-31 08:10] LABS: VENOUS BASE EXCESS -4.9 (-2.0-2.0); VENOUS HCO3 21.4 MEQ/L (23.0-27.0); VENOUS O2 SATURATION 99.3 % (60.0-80.0); VENOUS PARTIAL PRESSURE CO2 44.3 mmHg (38.0-50.0); VENOUS PARTIAL PRESSURE O2 177.1 mmHg (30.0-50.0); VENOUS PH 7.301 UNITS (7.330-7.430); VENOUS STANDARD HCO3 20.5 MEQ/L; VENOUS TOTAL CO2 22.7 MEQ/L (24.0-28.0)
[2020-05-31] MEDS ORDERED: ISOVUE-370 76% 100ML VIAL As Ordered ONE (08:19)
[2020-05-31 08:34] LABS: INR 1.23; PROTHROMBIN TIME 15.8 SECONDS (12.5-14.3)
[2020-05-31 08:35] LABS: PARTIAL THROMBOPLASTIN TIME 37.4 SECONDS (24.2-38.5)
[2020-05-31 08:40] LABS: ALBUMIN 2.3 GM/DL (3.2-5.2); ALT/SGPT 17 U/L (12-78); AMYLASE 22 U/L (25-115); BILIRUBIN,DIRECT 0.2 MG/DL (0.0-0.2); BILIRUBIN,TOTAL 0.4 MG/DL (0.2-1.0); BLOOD UREA NITROGEN 15 MG/DL (7-18); CALCIUM LEVEL 8.5 MG/DL (8.8-10.2); CARBON DIOXIDE LEVEL 24 MEQ/L (21-32); CHLORIDE LEVEL 106 MEQ/L (98-107); CK-MB VALUE MASS < 1.0 NG/ML (<3.6); CPK CREATINE PHOSPHOKINASE 18 U/L (26-192); CREATININE FOR GFR 0.95 MG/DL (0.55-1.30); GLOMERULAR FILTRATION RATE > 60.0 (>39); GLUCOSE, FASTING 99 MG/DL (70-100); LIPASE 32 U/L (73-393); MB/CK RELATIVE INDEX 5.56 (< OR =4); POTASSIUM SERUM 3.9 MEQ/L (3.5-5.1); SODIUM LEVEL 138 MEQ/L (136-145); TOTAL PROTEIN 6.9 GM/DL (6.4-8.2); TROPONIN I < 0.02 NG/ML (< 0.10)
[2020-05-31] MEDS: MORPHINE 4 MG/ML 1ML VIAL/SYRINGE (J2270) IV PRN (09:02)
--- NOTE | 2020-05-31 09:03 | REP ---
INDICATION: PENDING ISTAT. COMPARISON: 05/09/2020 TECHNIQUE: Axial contrast-enhanced images from the lung bases to the pubic symphysis using 100 cc Isovue 370 intravenous contrast material. . This CT examination was performed using the following dose reduction techniques: Automated exposure control, adjustment of mA and/or kv according to the patient's size, and the use of iterative reconstruction technique. FINDINGS: The liver demonstrates large cystic/centrally necrotic lesions throughout the liver including the largest of which measures roughly 10 cm in maximal diameter centrally located in the liver. 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 Hydropic gallbladder with gallstones but no significant wall thickening or pericholecystic fluid is unchanged from prior examination. Pancreas, bilateral adrenal glands and kidneys are relatively normal/stable. Bilateral renal hypodensities are again noted and consistent with small cysts. The enteric system is without obstruction or acute inflammatory process. There is evidence for prior partial sigmoid resection and anastomosis. Pelvis demonstrates normal bladder and suspected subtle myomatous changes to the uterus. No ascites. No significant retroperitoneal adenopathy. Abdominal aorta and vasculature without aneurysm or dissection. Musculoskeletal structures demonstrate age-related degenerative changes. Lung bases demonstrate chronic interstitial changes although subtle early atelectasis cannot be excluded. IMPRESSION: 1. Cystic/centrally necrotic liver lesions similar to prior examination. Are most compatible with a biliary/hepatic primary malignancy or mucinous metastatic lesions. 2. A similar appearing 3.3 cm lesion is now identified in the right anterior abdominal wall overlying the largest liver lesion which likely represents new metastatic focus. 3. Hydropic gallbladder with gallstones unchanged from prior examination and without further evidence for acute cholecystitis. 4. Further nonacute findings as described above. <Electronically signed by Zev Burleson > 05/31/20 [id number]
[2020-05-31] MEDS ORDERED: ACETAMINOPHEN TAB 650MG DOSE (2X325MG) PO PRN (09:45)
[2020-05-31] MEDS ORDERED: DURA25DI3 TD (10:12)
[2020-05-31] MEDS ORDERED: LEVO88TA3 PO (10:12)
[2020-05-31] MEDS ORDERED: ONDA8TAB10 PO (10:12)
[2020-05-31] MEDS ORDERED: LOVE0.6I2 SC (10:13)
[2020-05-31] MEDS ORDERED: PROC10TA4 PO (10:16)
[2020-05-31 10:29] LABS: MAGNESIUM LEVEL 1.8 MG/DL (1.8-2.4)
[2020-05-31 11:16] LABS: INR 1.24; PROTHROMBIN TIME 15.9 SECONDS (12.5-14.3)
[2020-05-31 11:17] LABS: PARTIAL THROMBOPLASTIN TIME 37.3 SECONDS (24.2-38.5)
[2020-05-31] MEDS: sulfaSALAzine 500 MG TABEC PO SCH ×3 (13:00→20:24)
[2020-05-31 13:10] LABS: D-DIMER QUANT > 4000 ng/ml (<500)
[2020-05-31] MEDS ORDERED: REMDESIVIR 200 MG in NS 250 ML IV ONE (14:00)
--- NOTE | 2020-05-31 14:07 | HPEPDOC ---
[facility] Medical History & Physical Date of Admission May 31, 2020 Date of Service: May 31, 2020 Attending Physician: ABDI BALLESTEROS MD History and Physical CHIEF COMPLAINT: Abdominal pain and fever HISTORY OF PRESENT ILLNESS: 74 y/o W with past medical history of ulcerative colitis, hyperthyroidism, history of pulmonary emboli on BID lovenox, chronic pancreatic cyst, chronic cholelithiasis and recently admitted for abdominal pain found to have liver lesions initially thought 2/2 abscesses but later diagnosed by hepatobiliary at [facility] as carcinoma recently set up to start chemotherapy via [facility] and Dr. Garcia, who now presented to [facility] ED with abdominal pain and fever and found to be septic and with covid-19 infection. The emergency room vital signs showed borderline low BP, tachycardia, fever to 101.1 and she was given 2L NS and empiric zosyn. Workup was notable for leukocyt osis to 18, anemia to Hgb 10.2, platelets 177, lactic acidosis to 2.1, CRP 17.1, Na 138, K 3.9, Cr 0.95, lipase wnl, TSH wnl, troponin negative, while CT A/P showed a cystic /centrally necrotic liver lesion similar to prior with a new 3.3cm largest lesion in the R anterior abdominal wall, as well as a hydropic gallbladder without acute cholecystitis, and CXR was unremarkable without consolidations, effusions or pulmonary congestion, and covid-19 was positive. She is now mildly hypoxemic and was placed on 2L NS and is now being admitted for covid-19 infection as well as sepsis likely 2/2 GI pathology i/s/o metastatic carcinoma. In addition to the feer and RUQ abdominal pain, she denied recent chest pain, palpitations, significant dyspnea, nausea, emesis, hematochezia or hematemesis or hemoptysis. She does endorse mild dyspnea and an ongoing cough that may be chronic. REVIEW OF SYSTEMS: 10 point ROS was otherwise negative, unless otherwise state in the HPI PAST MEDICAL HISTORY: 1. Ulcerative colitis 2. Hyperthyroidism with iatrogenic hypothyroidism currently, s/p radioactive iodine ablation x 2 3. Hx of pulmonary emboli no on anticoagulation 4. Chronic pancreatic cyst 5. Chronic cholelithiasis 6. Depression 7. Recently diagnosed carcinoma with liver lesions and ongoing staging and treatment planning with [facility] and local oncology (Dr. Garcia) PAST SURGICAL HISTORY: 1. B/l knee replacement surgeries 2. Rectocele surgery 3. tonsillectomy 4. Colectomy with colostomy placement 5. Colostomy bag removal 6. Liver biopsy FAMILY HISTORY: Father: CAD, HTN. at 78 y/o Mother: health. at 93 y/o SOCIAL HISTORY: Prior smoker , half pack per day for 15 years. Quit in 1999. Denies alcohol or drug use. Uses a cane to ambulate. She lives alone in local area. She is retired from [employer] in 2013.PCP- Dr. Long, GI- Dr. Kiran, Cardiology- Dr. Bolton, Endocrine- Dr. Del Toro. ALLERGIES: Please see below. HOME MEDICATIONS: Please see below. PHYSICAL EXAMINATION: CONSTITUTIONAL: No acute distress, on 2L NC EYES: PERRLA, EOM intact, anicteric, non injected HENT, MOUTH: Normocephalic, atraumatic, moist mucous membranes NECK: SUPPLE, no JVD CV: Regular rate and rhythm, S1S2 normal, no murmurs/rubs/gallops RESPIRATORY: Clear to auscultation bilaterally, no rales/rhonchi/wheezes GI: Multiple well healed scars vertical and horizontal, BS positive in 4 quadrants, soft, nontender, nondistended, tender RUQ, no rebound or guarding EXTREMITIES: +1 pitting edema b/l lower ext, WWP SKIN: Intact, no rashes, no lesions, no erythema NEUROLOGIC: Cranial Nerves 3-12 grossly intact, no focal deficits PSYCHIATRIC: Mood and affect are normal LABORATORY DATA AND IMAGING: summarized above IMAGING: CT A/P: The liver demonstrates large cystic/centrally necrotic lesions throughout the liver including the largest of which measures roughly 10 cm in maximal diameter centrally located in the liver. 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 Hydropic gallbladder with gallstones but no significant wall thickening or pericholecystic fluid is unchanged from prior examination. Pancreas, bilateral adrenal glands and kidneys are relatively normal/stable. Bilateral renal hypodensities are again noted and consistent with small cysts. The enteric system is without obstruction or acute inflammatory process. There is evidence for prior partial sigmoid resection and anastomosis. Pelvis demonstrates normal bladder and suspected subtle myomatous changes to the uterus. No ascites. No significant retroperitoneal adenopathy. Abdominal aorta and vasculature without aneurysm or dissection. Musculoskeletal structures demonstrate age-related degenerative changes. Lung bases demonstrate chronic interstitial changes although subtle early atelectasis cannot be excluded. IMPRESSION: 1. Cystic/centrally necrotic liver lesions similar to prior examination. Are most compatible with a biliary/hepatic primary malignancy or mucinous metastatic lesions. 2. A similar appearing 3.3 cm lesion is now identified in the right anterior abdominal wall overlying the largest liver lesion which likely represents new metastatic focus. 3. Hydropic gallbladder with gallstones unchanged from prior examination and wi thout further evidence for acute cholecystitis. 4. Further nonacute findings as described above. CXR: Stable elevation to portion of the right hemidiaphragm is unchanged. Lung spence demonstrate chronic changes. Small scattered areas of linear atelectasis cannot be excluded. No focal consolidation, effusion, or pneumothorax. Skeletal structures demonstrate osteopenia and degenerative changes. IMPRESSION: Small areas linear atelectasis versus chronic change noted. ASSESSMENT: 74 y/o W with past medical history of ulcerative colitis, hyperthyroidism, history of pulmonary emboli on BID lovenox, chronic pancreatic cyst, chronic cholelithiasis and recently admitted for abdominal pain found to have liver lesions initially thought 2/2 abscesses but later diagnosed by hepatobiliary at [facility] as carcinoma recently set up to start chemotherapy via [facility] and Dr. Garcia, who now presented to [facility] ED with abdominal pain and fever and found to be septic and with covid-19 infection. PLAN: Sepsis: Likely 2/2 a combination of covid-19 infection and potential GI translocation i/s/o liver CA and UC -covid management as per below -empiric pip/tazo -no UC flare signs on imaging, will continue sulfasalazine -f/u BCx, UA/UCx -s/p 2L NS Covid-19 infection: -CXR without acute pathological findings at this time, however with hypoxemia -will begin dexamethasone 6mg QD for 3d,day 1 -will begin remdesevir QD for 5d, day 1 -continue home mucinex -albuterol mdi -supplemental oxygen -incentive spirometry -strict covid-19 labs per protocol -therapeutic dosing lovenox i/s/o recent PEs Abdominal pain with recently diagnosed carcinoma with new liver lesions: -CT abd/pelvis as above -Empiric pip/tazo given sepsis -F/u daily CMP -will FYI oncology to understand where she is from a workup and treatment plan perspective -gall bladder remains hydropic without acute cholecystitis -lipase was wnl Recent history of bilateral pulmonary emboli. -continue therapeutic dosing lovenox BID Hyperthyroidism: -continue home levothyroxine Chronic pancreatic cyst. -Lipase wnl Depression -Resume home meds GI ppx -protonix 40mg QD 9. DVT px. -Therapeutic dosing Lovenox BID DISPOSITION: Admitted to inpatient status. Vital Signs Vital Signs Date Time Temp Pulse Resp B/P (MAP) Pulse Ox O2 Delivery O2 Flow Rate FiO2 05/31/20 09:02 20 124/57 96 Nasal Cannula 2.0 05/31/20 07:28 101.1 103 Laboratory Data Labs 24H Laboratory Tests 2 05/31/20 07:18: Immature Granulocyte % (Auto) 2.1, Neutrophils (%) (Auto) 84.4H, Lymphocytes (%) (Auto) 3.5L, Monocytes (%) (Auto) 7.2H, Eosinophils (%) (Auto) 2.5, Basophils (%) (Auto) 0.3, Neutrophils # (Auto) 15.2H, Lymphocytes # (Auto) 0.6L, Monocytes # (Auto) 1.3H, Eosinophils # (Auto) 0.5, Basophils # (Auto) 0.1, Nucleated Red Blood Cells % (auto) 0.1H, Prothrombin Time 15.8H, Prothromb Time International Ratio 1.23, Activated Partial Thromboplast Time 37.4, Lactic Acid Level 2.1*H 05/31/20 07:32: Anion Gap 8, Glomerular Filtration Rate > 60.0, Calcium Level 8.5L, Total Bilirubin 0.4, Direct Bilirubin 0.2, Aspartate Amino Transf (AST/SGOT) 23, Alanine Aminotransferase (ALT/SGPT) 17, Alkaline Phosphatase 222H, Total Creatine Kinase 18L, Creatine Kinase MB < 1.0, Creatine Kinase MB Relative Index 5.56H, Troponin I < 0.02, C-Reactive Protein, Quantitative 17.10H, Total Protein 6.9, Albumin 2.3L, Albumin/Globulin Ratio 0.5L, Amylase Level 22L, Lipase 32L 05/31/20 07:49: Coronavirus (COVID-19)(PCR) POSITIVEA 05/31/20 08:00: Blood Gas Bicarbonate Standard 20.5, Venous Blood pH 7.301L, Venous Blood Partial Pressure CO2 44.3, Venous Blood Partial Pressure O2 177.1H, Venous Blood Total Carbon Dioxide 22.7L, Venous Blood HCO3 21.4L, Venous Blood Oxygen Saturation 99.3H, Venous Blood Base Excess -4.9L 05/31/20 08:07: POC Glucose (Misc Panel) 102, POC Sodium (Misc Panel) 135L, POC Potassium (Misc Panel) 3.7, POC Chloride (Misc Panel) 104, POC Total CO2 (Misc Panel) 22.0L, POC Blood Urea Nitrogen (Misc Panel 15, POC Ionized Calcium (Misc Panel) 4.8, POC Creatinine (Misc Panel) 0.8, POC Hematocrit (Misc Panel) 36.0L CBC/BMP Laboratory Tests 05/31/20 07:18 05/31/20 07:32 Microbiology Microbiology 05/31/20 Blood Culture, Received Pending 05/31/20 Blood Culture, Received Pending Home Medications Scheduled Enoxaparin Sodium (Lovenox) 80 Mg/0.8 Ml Syringe, 80 MG SC QHS Fentanyl (Duragesic) 25 Mcg Patch.td72, 25 MCG TD Q3RD Fluoxetine Hcl (Fluoxetine HCl) 20 Mg Cap, 20 MG PO DAILY Levothyroxine Sodium (Levothyroxine Sodium) 88 Mcg Tablet, 88 MCG PO DAILY Potassium Chloride (Potassium Chloride) 10 Meq Cap, 10 MEQ PO DAILY Sulfasalazine (Sulfasalazine Dr) 500 Mg Tablet.dr, 500 MG PO QID Scheduled PRN Acetaminophen (Tylenol Extra Strength) 500 Mg Tablet, 1,000 MG PO TID PRN for PAIN Ondansetron HCl (Ondansetron HCl) 8 Mg Tablet, 8 MG PO Q12H PRN for NAUSEA OR VOMITING Prochlorperazine Maleate (Prochlorperazine Maleate) 10 Mg Tablet, 10 MG PO Q6H PRN for NAUSEA OR VOMITING for use during chemo Allergies Coded Allergies: No Known Drug Allergies (Verified Allergy, Unknown, 02/27/19) A-FIB/CHADSVASC A-FIB History Current/History of A-Fib/PAF?: No Current PO Anticoag Therapy: No Age/Risk Factor Scoring CHADSVASC: CHADSVASC Response (Comments) Value Age Risk Factor Age 65-74 years old 1 Gender Risk Factor Female 1 Hx of CHF Yes 1 Hx of HTN Yes 1 Hx of Stroke/TIA/or VTE Yes 2 Hx of Diabetes No 0 Hx of Vascular Disease Yes 1 Total 7 Treatment Treatment ordered: Other Other anticoagulant ordered: therapeutic lovenox ABDI BALLESTEROS MD May 31, 2020 10:26
[2020-05-31 15:20] VITALS: BP 128/61
[2020-05-31] MEDS: PIPERACILLIN/TAZOBACTAM SOD 4.5 GM in D5W MINI-BAG PLUS 50 ML IV SCH ×2 (15:53→20:24)
[2020-05-31] MEDS: ENOXAPARIN 80MG/0.8ML SYRINGE (J1650 PER 10MG) SC SCH ×2 (15:54→20:26)
[2020-05-31] MEDS: guaiFENesin ER 600 MG TAB PO SCH ×2 (15:55→20:25)
[2020-05-31] MEDS: dexameTHASONE 4 MG/ML 1ML VIAL (J1100 PER 1MG) IV SCH (15:55)
[2020-05-31] MEDS ORDERED: SODIUM CHLORIDE 0.9% INJ 10 ML SYR IV ONE (16:00)
--- NOTE | 2020-05-31 17:59 | ECGEPIP ---
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
[2020-05-31] MEDS ORDERED: ONDANSETRON 4MG/2ML VIAL IV PRN (18:45)
[2020-05-31 20:26] VITALS: BP 108/52; O2SAT 91
[2020-05-31 22:15] LABS: BASO % 0.3 % (0.0-1.0); EOS % 0.1 % (0.0-3.0); HEMATOCRIT 31.3 % (36.0-47.0); HEMOGLOBIN 9.2 g/dl (12.0-15.5); LYMPH # 0.5 10^3/uL (1.5-5.0); LYMPH % 3.8 % (24.0-44.0); MEAN CORPUSCULAR HEMOGLOBIN 23.5 pg (27.0-33.0); MEAN CORPUSCULAR HGB CONC 29.4 g/dl (32.0-36.5); MEAN CORPUSCULAR VOLUME 79.8 fl (80.0-96.0); MONO # 0.4 10^3/uL (0.0-0.8); MONO % 3.3 % (0.0-5.0); NEUTROPHILS # 11.2 10^3/uL (1.5-8.5); NEUTROPHILS % 89.2 % (36.0-66.0); PLATELET COUNT, AUTOMATED 143 10^3/uL (150-450); RED BLOOD COUNT 3.92 10^6/uL (4.00-5.40); WHITE BLOOD COUNT 12.6 10^3/uL (4.0-10.0)
[2020-05-31 22:27] LABS: INR 1.49; PROTHROMBIN TIME 18.3 SECONDS (12.5-14.3)
[2020-05-31 22:28] LABS: PARTIAL THROMBOPLASTIN TIME 59.1 SECONDS (24.2-38.5)
[2020-05-31 22:59] LABS: FERRITIN 438 NG/ML (8-252); LDH LACTATE DEHYDROGENASE 340 U/L (84-246); NT-PRO BNP 428 PG/ML (<125); TRIGLYCERIDES LEVEL 137 MG/DL (<150); TROPONIN I < 0.02 NG/ML (< 0.10)
[2020-06-01] VITALS: BP 112/56; O2SAT 92
[2020-06-01] MEDS: PIPERACILLIN/TAZOBACTAM SOD 4.5 GM in D5W MINI-BAG PLUS 50 ML IV SCH ×4 (02:39→20:31)
[2020-06-01 04:00] VITALS: O2SAT 92
[2020-06-01 05:59] LABS: BASO # 0.1 10^3/uL (0.0-0.2); BASO % 0.3 % (0.0-1.0); EOS % 0.1 % (0.0-3.0); HEMATOCRIT 33.9 % (36.0-47.0); HEMOGLOBIN 9.8 g/dl (12.0-15.5); LYMPH # 0.9 10^3/uL (1.5-5.0); LYMPH % 5.9 % (24.0-44.0); MEAN CORPUSCULAR HEMOGLOBIN 23.3 pg (27.0-33.0); MEAN CORPUSCULAR HGB CONC 28.9 g/dl (32.0-36.5); MEAN CORPUSCULAR VOLUME 80.7 fl (80.0-96.0); MONO % 6.9 % (0.0-5.0); NEUTROPHILS # 12.5 10^3/uL (1.5-8.5); NEUTROPHILS % 83.3 % (36.0-66.0); PLATELET COUNT, AUTOMATED 163 10^3/uL (150-450)
[2020-06-01] MEDS ORDERED: LEVOTHYROXINE 125MCG TABLET (0.125MG) PO SCH (06:00)
[2020-06-01 06:17] LABS: INR 1.36; PROTHROMBIN TIME 17.1 SECONDS (12.5-14.3)
[2020-06-01 06:18] LABS: FIBRINOGEN 302 MG/DL (221-452); PARTIAL THROMBOPLASTIN TIME 59.3 SECONDS (24.2-38.5)
[2020-06-01] MEDS: LEVOTHYROXINE 88MCG TABLET (0.088 MG) PO SCH (06:19)
[2020-06-01 06:31] VITALS: BP 112/61
[2020-06-01 06:58] LABS: ALBUMIN 2.2 GM/DL (3.2-5.2); BILIRUBIN,DIRECT 0.1 MG/DL (0.0-0.2); BILIRUBIN,TOTAL 0.4 MG/DL (0.2-1.0); CREATININE FOR GFR 1.11 MG/DL (0.55-1.30); GLOMERULAR FILTRATION RATE 51.3 (>39); MAGNESIUM LEVEL 2.1 MG/DL (1.8-2.4); POTASSIUM SERUM 4.2 MEQ/L (3.5-5.1); TOTAL PROTEIN 6.7 GM/DL (6.4-8.2)
[2020-06-01 06:59] LABS: C REACTIVE PROTEIN QUANTITATIV 16.2 MG/DL (0.00-0.30)
[2020-06-01 07:27] LABS: D-DIMER QUANT > 4000 ng/ml (<500)
[2020-06-01 08:00] VITALS: BP 111/64
[2020-06-01] MEDS: ENOXAPARIN 80MG/0.8ML SYRINGE (J1650 PER 10MG) SC SCH ×2 (08:26→20:31)
[2020-06-01] MEDS: sulfaSALAzine 500 MG TABEC PO SCH ×4 (08:27→20:30)
[2020-06-01] MEDS: dexameTHASONE 4 MG/ML 1ML VIAL (J1100 PER 1MG) IV SCH (08:27)
[2020-06-01] MEDS: guaiFENesin ER 600 MG TAB PO SCH ×2 (08:27→20:30)
[2020-06-01 10:21] LABS: TROPONIN I < 0.02 NG/ML (< 0.10)
[2020-06-01 11:59] VITALS: BP 110/61
[2020-06-01] MEDS: traMADol 50 MG TAB PO PRN ×2 (12:12→23:02)
--- NOTE | 2020-06-01 15:59 | IPNPDOC ---
Text Note Date of Service The patient was seen on 06/01/20. NOTE SUBJECTIVE: -No acute events overnight -On 1L NC this morning CONSTITUTIONAL: No acute distress, on 1L NC EYES: PERRLA, EOM intact, anicteric, non injected HENT, MOUTH: Normocephalic, atraumatic, moist mucous membranes NECK: SUPPLE, no JVD CV: Regular rate and rhythm, S1S2 normal, no murmurs/rubs/gallops RESPIRATORY: Clear to auscultation bilaterally, no rales/rhonchi/wheezes GI: Multiple well healed scars vertical and horizontal, BS positive in 4 quadrants, soft, tender RUQ, no rebound or guarding EXTREMITIES: +1 pitting edema b/l lower ext, WWP SKIN: Intact, no rashes, no lesions, no erythema NEUROLOGIC: Cranial Nerves 3-12 grossly intact, no focal deficits PSYCHIATRIC: Mood and affect are normal LABORATORY DATA: reviewed IMAGING: CT A/P: The liver demonstrates large cystic/centrally necrotic lesions throughout the liver including the largest of which measures roughly 10 cm in maximal diameter centrally located in the liver. 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 Hydropic gallbladder with gallstones but no significant wall thickening or pericholecystic fluid is unchanged from prior examination. Pancreas, bilateral adrenal glands and kidneys are relatively normal/stable. Bilateral renal hypodensities are again noted and consistent with small cysts. The enteric system is without obstruction or acute inflammatory process. There is evidence for prior partial sigmoid resection and anastomosis. Pelvis demonstrates normal bladder and suspected subtle myomatous changes to the uterus. No ascites. No significant retroperitoneal adenopathy. Abdominal aorta and vasculature without aneurysm or dissection. Musculoskeletal structures demonstrate age-related degenerative changes. Lung bases demonstrate chronic interstitial changes although subtle early atelectasis cannot be excluded. IMPRESSION: 1. Cystic/centrally necrotic liver lesions similar to prior examination. Are most compatible with a biliary/hepatic primary malignancy or mucinous metastatic lesions. 2. A similar appearing 3.3 cm lesion is now identified in the right anterior abdominal wall overlying the largest liver lesion which likely represents new metastatic focus. 3. Hydropic gallbladder with gallstones unchanged from prior examination and without further evidence for acute cholecystitis. 4. Further nonacute findings as described above. CXR: Stable elevation to portion of the right hemidiaphragm is unchanged. Lung spence demonstrate chronic changes. Small scattered areas of linear atelectasis cannot be excluded. No focal consolidation, effusion, or pneumothorax. Skeletal structures demonstrate osteopenia and degenerative changes. IMPRESSION: Small areas linear atelectasis versus chronic change noted. ASSESSMENT: 74 y/o W with past medical history of ulcerative colitis, hyperthyroidism, history of pulmonary emboli on BID lovenox, chronic pancreatic cyst, chronic cholelithiasis and recently admitted for abdominal pain found to have liver lesions initially thought 2/2 abscesses but later diagnosed by hepato biliary at [facility] as carcinoma recently set up to start chemotherapy via [facility] and Dr. Garcia, who now presented to [facility] ED with abdominal pain and fever and found to be septic and with covid-19 infection. PLAN: Sepsis: Likely 2/2 a combination of covid-19 infection and potential GI translocation i/s/o liver CA and UC -covid management as per below -empiric pip/tazo, day #2 -no UC flare signs on imaging, will continue sulfasalazine -f/u BCx, UA/UCx -s/p 2L NS Covid-19 infection: -CXR without acute pathological findings at this time, however with hypoxemia -Dexamethasone 6mg QD for 3d, day #2 -Remdesevir QD for 5d, day #2 -continue home mucinex -albuterol mdi -supplemental oxygen -incentive spirometry -strict covid-19 labs per protocol -therapeutic dosing lovenox i/s/o recent PEs Abdominal pain with recently diagnosed carcinoma with new liver lesions: -CT abd/pelvis as above -Empiric pip/tazo given sepsis, day #2 -F/u daily CMP -will FYI oncology to understand where she is from a workup and treatment plan perspective -gall bladder remains hydropic without acute cholecystitis -lipase was wnl Recent history of bilateral pulmonary emboli. -continue therapeutic dosing lovenox BID Hyperthyroidism: -continue home levothyroxine Chronic pancreatic cyst. -Lipase wnl Depression -Resume home meds GI ppx -protonix 40mg QD 9. DVT px. -Therapeutic dosing Lovenox BID DISPOSITION: Admitted to inpatient status. VS,Fishbone, I+O VS, Fishbone, I+O Laboratory Tests 05/31/20 07:32 05/31/20 22:05 06/01/20 05:33 Vital Signs Date Time Temp Pulse Resp B/P (MAP) Pulse Ox O2 Delivery O2 Flow Rate FiO2 06/01/20 06:31 96.8 59 20 112/61 (78) 96 Nasal Cannula 1.0 I&O- Last 24 Hours up to 6 AM 06/01/20 05:59 Intake Total 1170 ml Output Total 0 ml Balance 1170 ml ABDI BALLESTEROS MD Jun 01, 2020 07:37
[2020-06-01] MEDS: REMDESIVIR 100 MG in NS 250 ML IV SCH (16:32)
[2020-06-01] MEDS: MORPHINE 4 MG/ML 1ML VIAL/SYRINGE (J2270) IV PRN (16:33)
[2020-06-01] MEDS: SODIUM CHLORIDE 0.9% INJ 10 ML SYR IV SCH (18:10)
[2020-06-01 20:00] VITALS: BP 119/58
[2020-06-02] VITALS: BP 96/51
[2020-06-02] MEDS: PIPERACILLIN/TAZOBACTAM SOD 4.5 GM in D5W MINI-BAG PLUS 50 ML IV SCH ×3 (03:14→13:25)
[2020-06-02 04:00] VITALS: BP 97/53
[2020-06-02] MEDS: LEVOTHYROXINE 88MCG TABLET (0.088 MG) PO SCH (05:38)
[2020-06-02 08:00] VITALS: BP 103/52
[2020-06-02 08:57] LABS: HEMATOCRIT 34.3 % (36.0-47.0); HEMOGLOBIN 10.3 g/dl (12.0-15.5); MEAN CORPUSCULAR VOLUME 79.8 fl (80.0-96.0); PLATELET COUNT, AUTOMATED 251 10^3/uL (150-450); WHITE BLOOD COUNT 23.2 10^3/uL (4.0-10.0)
[2020-06-02] MEDS: ENOXAPARIN 80MG/0.8ML SYRINGE (J1650 PER 10MG) SC SCH (09:00)
[2020-06-02] MEDS: dexameTHASONE 4 MG/ML 1ML VIAL (J1100 PER 1MG) IV SCH (09:00)
[2020-06-02] MEDS: sulfaSALAzine 500 MG TABEC PO SCH ×2 (09:00→13:25)
[2020-06-02] MEDS: guaiFENesin ER 600 MG TAB PO SCH (09:00)
[2020-06-02] MEDS: traMADol 50 MG TAB PO PRN (09:01)
[2020-06-02 09:18] LABS: INR 1.27; PROTHROMBIN TIME 16.1 SECONDS (12.5-14.3)
[2020-06-02 09:20] LABS: PARTIAL THROMBOPLASTIN TIME 42.3 SECONDS (24.2-38.5)
[2020-06-02 09:21] LABS: FIBRINOGEN 297 MG/DL (221-452)
[2020-06-02 09:31] LABS: ATYPICAL LYMPH 3 % (0-5); EOSINOPHILS 4 % (0-3); LYMPHOCYTES 4 % (16-44); MONOCYTES 3 % (0-5); NEUTROPHILS 86 % (28-66); PLATELET ESTIMATE NORMAL (NORMAL)
[2020-06-02 09:50] LABS: D-DIMER QUANT > 4000 ng/ml (<500)
[2020-06-02 09:56] LABS: ALBUMIN 2.3 GM/DL (3.2-5.2); ALT/SGPT 19 U/L (12-78); BILIRUBIN,DIRECT < 0.1 MG/DL (0.0-0.2); BILIRUBIN,TOTAL 0.4 MG/DL (0.2-1.0); BLOOD UREA NITROGEN 30 MG/DL (7-18); C REACTIVE PROTEIN QUANTITATIV 9.21 MG/DL (0.00-0.30); CALCIUM LEVEL 9.2 MG/DL (8.8-10.2); CARBON DIOXIDE LEVEL 26 MEQ/L (21-32); CHLORIDE LEVEL 102 MEQ/L (98-107); FERRITIN 431 NG/ML (8-252); GLOMERULAR FILTRATION RATE 46.9 (>39); GLUCOSE, FASTING 75 MG/DL (70-100); MAGNESIUM LEVEL 2.2 MG/DL (1.8-2.4); NT-PRO BNP 284 PG/ML (<125); POTASSIUM SERUM 4.1 MEQ/L (3.5-5.1); SODIUM LEVEL 136 MEQ/L (136-145); TOTAL PROTEIN 7.1 GM/DL (6.4-8.2)
[2020-06-02 12:00] VITALS: BP 109/55
[2020-06-02 12:08] LABS: INFLUENZA A AMPLIFICATION NEGATIVE (NEGATIVE); INFLUENZA B AMPLIFICATION NEGATIVE (NEGATIVE)
[2020-06-02 13:41] LABS: HEPATITIS B SURFACE ANTIGEN NEGATIVE (NEGATIVE); HIV 1&2 SCREEN CENTAUR NEGATIVE (NEGATIVE)
[2020-06-02] MEDS: REMDESIVIR 100 MG in NS 250 ML IV SCH (14:52)
[2020-06-02] MEDS: SODIUM CHLORIDE 0.9% INJ 10 ML SYR IV SCH (15:00)
[2020-06-02] MEDS ORDERED: CIPR-249 PO (15:58)
[2020-06-02] MEDS ORDERED: VICO10TA11 PO (16:00)
[2020-06-02] MEDS ORDERED: TESS100C PO (16:31)
[2020-06-02] MEDS ORDERED: PROAAER10 INH (16:31)
[2020-06-02] MEDS ORDERED: OXYC-517 PO ×2 (17:17→17:22)
--- NOTE | 2020-06-02 18:02 | DS.PDOC ---
Discharge Summary General Date of Admission May 31, 2020 at 09:38 Date of Discharge May Attending Physician: ABDI BALLESTEROS MD Discharge Summary PROCEDURES PERFORMED DURING STAY: [None]. ADMITTING DIAGNOSES: 1. sepsis 2. COVID19 PNA 3. Carcinoma of the liver DISCHARGE DIAGNOSES: 1. COVID19 PNA 2. Carcinoma of the liver COMPLICATIONS/CHIEF COMPLAINT: Covid-19, Sepsis. HISTORY OF PRESENT ILLNESS: 74 y/o W with past medical history of ulcerative colitis, hyperthyroidism, history of pulmonary emboli on BID lovenox, chronic pancreatic cyst, chronic cholelithiasis and recently admitted for abdominal pain found to have liver lesions initially thought 2/2 abscesses but later diagnosed by hepatobiliary at [facility] as carcinoma recently set up to start chemotherapy via [facility] and Dr. Garcia, who now presented to [facility] ED with abdominal pain and fever and found to be septic and with covid-19 infection. The emergency room vital signs showed borderline low BP, tachycardia, fever to 101.1 and she was given 2L NS and empiric zosyn. Workup was notable for leukoc ytosis to 18, anemia to Hgb 10.2, platelets 177, lactic acidosis to 2.1, CRP 17.1, Na 138, K 3.9, Cr 0.95, lipase wnl, TSH wnl, troponin negative, while CT A/P showed a cystic /centrally necrotic liver lesion similar to prior with a new 3.3cm largest lesion in the R anterior abdominal wall, as well as a hydropic gallbladder without acute cholecystitis, and CXR was unremarkable without consolidations, effusions or pulmonary congestion, and covid-19 was positive. She is now mildly hypoxemic and was placed on 2L NS and is now being admitted for covid-19 infection as well as sepsis likely 2/2 GI pathology i/s/o metastatic carcinoma. In addition to the feer and RUQ abdominal pain, she denied recent chest pain, palpitations, significant dyspnea, nausea, emesis, hematochezia or hematemesis or hemoptysis. She does endorse mild dyspnea and an ongoing cough that may be chronic. HOSPITAL COURSE: The patient presented to the hospital with severe right upper quadrant pain likely secondary to cancer of unknown origin, diaphragmatic irritation and referred pain to the right shoulder. She was incidentally found to be Covid 19 positive. She was admitted to the Covid floor, started on dexamethasone and REM does severe as well as supportive care. Oncology was contacted regarding her previous workup at [facility] and requested that the patient follow up with them in the office. The patient's pain was managed with tramadol. At most, she required 2 L nasal cannula oxygen but was able to be titr ated down to room air and was saturating well at the time of discharge. She did have a white blood cell count of 23.2 on the day of discharge which was attributed to steroid use. All inflammatory markers trended down. The patient was in stable condition at the time of discharge and was sent home on previous medication regimen with the addition of albuterol, Tessalon Perles and some oxycodone for pain. She was instructed to follow-up with hematology/oncology at her upcoming appointment. DISCHARGE MEDICATIONS: Please see below. ALLERGIES: Please see below. PHYSICAL EXAMINATION ON DISCHARGE: VITAL SIGNS: Please see below. CONSTITUTIONAL: No acute distress, on room air EYES: PERRLA, EOM intact, anicteric, non injected HENT, MOUTH: Normocephalic, atraumatic, moist mucous membranes NECK: SUPPLE, no JVD CV: Regular rate and rhythm, S1S2 normal, no murmurs/rubs/gallops RESPIRATORY: Clear to auscultation bilaterally, no rales/rhonchi/wheezes GI: Multiple well healed scars vertical and horizontal, BS positive in 4 quadrants, soft, nontender, nondistended, tender RUQ, no rebound or guarding EXTREMITIES: +1 pitting edema b/l lower ext, WWP SKIN: Intact, no rashes, no lesions, no erythema NEUROLOGIC: Cranial Nerves 3-12 grossly intact, no focal deficits PSYCHIATRIC: Mood and affect are normal LABORATORY DATA: Please see below. IMAGING: CXR: FINDINGS: Stable elevation to portion of the right hemidiaphragm is unchanged. Lung spence demonstrate chronic changes. Small scattered areas of linear atelectasis cannot be excluded. No focal consolidation, effusion, or pneumothorax. Skeletal structures demonstrate osteopenia and degenerative changes. IMPRESSION: Small areas linear atelectasis versus chronic change noted. CT ABD/PEL: IMPRESSION: 1. Cystic/centrally necrotic liver lesions similar to prior examination. Are most compatible with a biliary/hepatic primary malignancy or mucinous metastatic lesions. 2. A similar appearing 3.3 cm lesion is now identified in the right anterior abdominal wall overlying the largest liver lesion which likely represents new metastatic focus. 3. Hydropic gallbladder with gallstones unchanged from prior examination and without further evidence for acute cholecystitis. 4. Further nonacute findings as described above. PROGNOSIS: Fair ACTIVITY: [As tolerated]. DIET: Normal, as tolerated DISCHARGE PLAN: Follow-up with oncology, PCP DISPOSITION: . DISCHARGE INSTRUCTIONS: 1. Follow-up with oncology at upcoming appointment 2 set up home health and home PT ITEMS TO FOLLOWUP ON ON OUTPATIENT: 1. None DISCHARGE CONDITION: [Stable]. TIME SPENT ON DISCHARGE: Greater than 45 minutes. Vital Signs/I&Os Vital Signs Date Time Temp Pulse Resp B/P (MAP) Pulse Ox O2 Delivery O2 Flow Rate FiO2 06/02/20 12:00 96.0 62 28 109/55 (73) 97 Room Air I&O- Last 24 Hours up to 6 AM 06/02/20 06:00 Intake Total 720 ml Output Total 500 ml Balance 220 ml Laboratory Data Labs 24H Laboratory Tests 2 06/01/20 21:35: Troponin I < 0.02 06/02/20 08:15: Immature Granulocyte % (Auto) , Neutrophils (%) (Auto) , Nucleated Red Blood Cells % (auto) 0.0, Neutrophils 86H, Lymphocytes (Manual) 4L, Monocytes (Manual) 3, Eosinophils (Manual) 4H, Atypical Lymphocytes 3, Red Blood Cell Morphology NORMAL, Platelet Estimate NORMAL, Prothrombin Time 16.1H, Prothromb Time International Ratio 1.27, Activated Partial Thromboplast Time 42.3H, Fibrinogen 297, D-Dimer, Quantitative > 4000H, Anion Gap 8, Glomerular Filtration Rate 46.9, Calcium Level 9.2, Magnesium Level 2.2, Ferritin 431H, Total Bilirubin 0.4, Direct Bilirubin < 0.1, Aspartate Amino Transf (AST/SGOT) 26, Alanine Aminotransferase (ALT/SGPT) 19, Alkaline Phosphatase 200H, C-Reactive Protein, Quantitative 9.21H, [id number] Natriuretic Peptide 284H, Total Protein 7.1, Albumin 2.3L, Albumin/Globulin Ratio 0.5L, Procalcitonin 3.37 CBC/BMP Laboratory Tests 06/02/20 08:15 Microbiology Microbiology 05/31/20 Blood Culture - Preliminary, Resulted No Growth after 48 hours. All Specime... 05/31/20 Blood Culture - Preliminary, Resulted No Growth after 48 hours. All Specime... Discharge Medications Scheduled Benzonatate (Tessalon Perle) 100 Mg Capsule, 100 MG PO TID for cough Ciprofloxacin HCl (Cipro) 500 Mg Tablet, 500 MG PO BID Enoxaparin Sodium (Lovenox) 80 Mg/0.8 Ml Syringe, 80 MG SC QHS, (Reported) Fentanyl (Duragesic) 25 Mcg Patch.td72, 25 MCG TD Q3RD, (Reported) Fluoxetine Hcl (Fluoxetine HCl) 20 Mg Cap, 20 MG PO DAILY, (Reported) Levothyroxine Sodium (Levothyroxine Sodium) 88 Mcg Tablet, 88 MCG PO DAILY, (Reported) Potassium Chloride (Potassium Chloride) 10 Meq Cap, 10 MEQ PO DAILY, (Reported) Sulfasalazine (Sulfasalazine Dr) 500 Mg Tablet.dr, 500 MG PO QID, (Reported) Scheduled PRN Acetaminophen (Tylenol Extra Strength) 500 Mg Tablet, 1,000 MG PO TID PRN for PAIN, (Reported) Albuterol Sulfate (Proair Hfa) 8.5 Gm Hfa.aer.ad, 2 PUFF INH Q4-6HP PRN for wheezing Ondansetron HCl (Ondansetron HCl) 8 Mg Tablet, 8 MG PO Q12H PRN for NAUSEA OR VOMITING, (Reported) Oxycodone HCl (Oxycodone HCl) 5 Mg Tablet, 1 TAB PO QIDP PRN for pain Prochlorperazine Maleate (Prochlorperazine Maleate) 10 Mg Tablet, 10 MG PO Q6H PRN for NAUSEA OR VOMITING, (Reported) for use during chemo Allergies Coded Allergies: No Known Drug Allergies (Verified Allergy, Unknown, 02/27/19) GME ATTESTATION GME ATTESTATION My faculty preceptor for this patient encounter was physically present during the encounter and was fully available. All aspects of the patient interview, examination, medical decision making process, and medical care plan development were reviewed and approved by the faculty preceptor. The faculty preceptor is aware and concurs with the plan as stated in the body of this note and will attest to such by his/her cosignature. VANGIE CHISHOLM MD Jun 02, 2020 18:01
[2020-06-03] MEDS ORDERED: PREVNAR 13 VACCINE SYRINGE IM ONE (09:00)
== END 2020-06-02 20:00 | disposition home health service (06) | DRG 871 ==
LOC: M ED 07:25 → EDBD 07:25 → M ED INP 09:38 → M 4MAIN 15:00
PROVIDERS: ADMIT Internal Medicine; ATTEND Internal Medicine
DX: A41.9 Sepsis, unspecified organism (principal); U07.1 COVID-19; J12.89 Other viral pneumonia; C22.9 Malignant neoplasm of liver, not specified as primary or secondary; K86.2 Cyst of pancreas; Z79.01 Long term (current) use of anticoagulants; Z86.711 Personal history of pulmonary embolism; Z79.899 Other long term (current) drug therapy; E03.2 Hypothyroidism due to medicaments and other exogenous substances; K80.20 Calculus of gallbladder without cholecystitis without obstruction; F32.9 Major depressive disorder, single episode, unspecified; Z96.653 Presence of artificial knee joint, bilateral; Z87.891 Personal history of nicotine dependence

== ENCOUNTER 2020-06-18 14:44 | Inpatient (IN) | payer MEDICARE, OTHER ==
[~2020-06-18] VITALS: Ht 147.3 cm; Wt 82.3 kg
[~2020-06-18 14:44] MED LIST changes: +DURA25DI3 TD; +LEVO88TA3 PO; -LEVOTHYROXINE 88MCG TABLET (0.088 MG) PO SCH; +ONDA8TAB10 PO; +OXYC-517 PO; +PROAAER10 INH; +PROC10TA4 PO; +VICO10TA11 PO
[2020-06-18] MEDS ORDERED: PERCOCET 5MG/325MG TAB PO ONE (15:30)
--- OUTSIDE RECORDS SUMMARY | 2020-06-18 15:40 | CCD | Summary of Care ---
Author Author [facility] Organization [facility] Address Unknown Phone Unavailable Care Team Providers Care Project Manager Process Development Name Role Phone Roshan Long MD PCP Reason for Referral * Diagnostic Radiology (Routine) Referred By Contact Referred To Contact Status Reason Specialty Diagnoses / Procedures Pj Augustin, DO [address] [place] [address] Email: [email or web address] Interventional Radiology Uh [address] [place] [address] Authorized Radiology Diagnoses Cholangiocarcinoma P rocedures IR Vascular Access Insertion or Removal * Medication Prior Authorization (Routine) Referred By Contact Referred To Contact Status Reason Specialty Diagnoses / Procedures Pj Augustin, DO [address] [place] [address] Email: [email or web address] Authorized Diagnoses Cholangiocarcinoma * Diagnostic Radiology (Routine) Referred By Contact Referred To Contact Status Reason Specialty Diagnoses / Procedures Pj Augustin, DO [address] [place] [address] Email: [email or web address] Radiology [facility] [address] [place] [address] Authorized Radiology Diagnoses Cholangiocarcinoma P rocedures Pet with CT Imaging Skull to Thigh * Diagnostic Radiology (Routine) Referred By Contact Referred To Contact Status Reason Specialty Diagnoses / Procedures Pj Augustin, DO [address] [place] [address] Email: [email or web address] Authorized Radiology Diagnoses Cholangiocarcinoma P rocedures MR Angiography Head with and without Contrast * Consultation (Routine) Referred By Contact Referred To Contact Status Reason Specialty Diagnoses / Procedures Pj Augustin DO [address] [place] [address] Email: [email or web address] Heather Frye MD [address] [address] Email: [email or web address] Authorized Specialty Services Surgery Diagnoses Required Cholangiocarcinoma * Consultation (STAT) Referred By Contact Referred To Contact Status Reason Specialty Diagnoses / Procedures Aicha Warner MD [address] [place] [address] Email: [email or web address] Gastroenterology Medicine Private Practice [facility] [address] [address] Authorized Specialty Services Gastroenterology Diagnoses Required Cholangiocarcinoma Reason for Visit * Reason Comments Follow-up Encounter Details Care Team Description Date Type Department Aicha Warner MD [address] [place] [address] [phone] Cerebral malignant neoplasm (Primary Dx ); Cholangiocarcinoma 05/30/2020 Office Visit Hematology Oncology [address] [place] [address] Allergies No Known Allergiesdocumented as of this encounter (statuses as of 06/08/2020) Medications End Date Status Medication Sig Dispensed Refills Start Date Active Enoxaparin Sodium 80 Inject 80 mg 0 MG/0.8ML Subcutaneous into the skin Solution (LOVENOX) daily Active FLUoxetine HCl 20 MG Oral Take 20 mg by 0 Capsule (PROZAC) mouth daily Active Potassium Chloride Kecia Take 10 mEq 0 ER 10 MEQ Oral Tablet by mouth Two Extended Release (K-DUR) Times Daily Active sulfaSALAzine 500 MG Oral Take 500 mg 0 Tablet (AZULFIDINE) by mouth Four times daily Active Levothyroxine Sodium 125 Take 125 mcg 0 MCG Oral Tablet by mouth (SYNTHROID) Daily 06/16/2020 Active Calcium Carbonate Antacid Chew 1 tablet 60 tablet 0 500 MG Oral Tablet by Mouth Two 0 Chewable (TUMS) times daily as needed 06/17/2020 Active Lidocaine 5 % External Place 2 30 patch 0 Patch (LIDODERM) patches onto 0 the skin daily 12 hours on 12 hours off Additional Information Patient not taking. Reported on 06/06/2020 9:30 AM Active fentaNYL 25 MCG/HR APPLY 1 PATCH 0 Transdermal Patch 72 Hour TOPICALLY 0 (DURAGESIC)Indications: EVERY 3 DAYS Cholangiocarcinoma MAXIMUM DAILY DOSE 1 PATCH EVERY 3 DAYS Active Prochlorperazine Maleate Take 1 tablet 30 tablet 1 10 MG Oral Tablet by mouth 1 (COMPAZINE)Indications: every 6 (six) Cholangiocarcinoma hours as needed (Nausea/Vomit ing) Active Ondansetron HCl 8 MG Oral Take 1 tablet 20 tablet 1 Tablet by mouth 1 (ZOFRAN)Indications: every 8 Cholangiocarcinoma (eight) hours as needed for Nausea or Vomiting 06/12/2020 Active Docusate Sodium 50 MG/5ML Take 10 mLs 100 mL 0 Oral Liquid by mouth Two 1 (COLACE)Indications: Times Daily Cholangiocarcinoma for 10 days Additional Information Patient not taking. Reported on 06/06/2020 9:30 AM 06/09/2020 Active Morphine Sulfate 15 MG Take 1 tablet 28 tablet 0 0 Oral Tablet by mouth 1 (MSIR)Indications: every 6 (six) Cholangiocarcinoma hours as needed for Pain for up to 7 days, Max Daily Dose: 60 mg 05/30/2020 Discontinued Acetaminophen 325 MG Oral Take 3 30 tablet 0 Tablet tablets by 0 mouth every 8 (eight) hours 06/02/2020 Discontinued (Reorder) Docusate Sodium 50 MG/5ML Take 10 mLs 100 mL 0 Oral Liquid (COLACE) by mouth Two 0 Times Daily for 10 days 06/02/2020 Discontinued guaiFENesin ER 600 MG Take 1 tablet 60 tablet 11 Oral Tablet Extended by mouth Two 0 Release 12 Hour (MUCINEX) Times Daily 06/02/2020 Discontinued oxyCODONE HCl ER 20 MG Take 1 tablet 28 tablet 0 1 Oral Tablet ER 12 Hour by mouth 0 Abuse-Deterrent every 12 (OXYCONTIN) (twelve) hours , Max Daily Dose: 40 mg 06/02/2020 Discontinued oxyCODONE HCl 5 MG Oral Take 1 28 capsule 0 Capsule (OXY-IR) capsule by 1 mouth every 6 (six) hours as needed for Pain for up to 7 days, Max Daily Dose: 20 mg documented as of this encounter (statuses as of 06/08/2020) Active Problems Problem Noted Date Cholangiocarcinoma 06/08/2020 Cancer Staging: Clinical stage from 05/23: cT2, cN0 - Signed by Aicha Warner MD on 06/08/2020 Adenocarcinoma determined by biopsy of liver 021 Hepatic abscess 05/10/2020 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 documented as of this encounter Last Filed Vital Signs Reading Time Taken Comments Vital Sign 118/79 05/30/2020 10:53 AM EST Blood Pressure 84 05/30/2020 10:53 AM EST Pulse 37.1 C (98.7 F) 05/30/2020 10:53 AM EST Temperature 16 05/30/2020 10:53 AM EST Respiratory Rate 93% 05/30/2020 10:53 AM EST ra Oxygen Saturation - - Inhaled Oxygen Concentration 74.8 kg (165 lb) 05/30/2020 10:53 AM EST Weight 147.3 cm (4' 10") 05/30/2020 10:53 AM EST Height 34.49 05/30/2020 10:53 AM EST Body Mass Index documented in this encounter Progress Notes * Aicha Warner MD - 05/30/2020 10:30 AM EST I saw and evaluated the patient Carter Vega with Dr. Augustin. Discussed with him and agree with his findings and plans as written, along with any supplementa l dictated and/or attending documentation in the patient record by myself. The treatment plan was discussed with the patient. ECOG Performance Status: (2) Ambulatory and capable of self care, unable to santoro y out work activity, up and about > 50% or waking hours Previous Oncologic History, Diagnosis and stage: February 2020-patient was thought to have multiple liver abscesses and was treate d with drainage and antibiotics May 10-2019-patient was admitted to the [facility] where she was found to have this liver abscesses which were not resolving and was getting enla rged and IR guided biopsy was done May 15 2020 liver guided biopsy showed moderate to poorly differentiated ad enocarcinoma consistent with possible pancreaticobiliary versus upper GI and the consensus was for multifocal intrahepatic cholangiocarcinoma MRI of the brain with and without contrast done on May 17, 2020-showed mult iple areas of restricted diffusion and enhancement with bilateral parietal and r ight superior frontal convexity with tiny subcortical nodular lesion consistent with metastatic lesions however an infarct cannot be ruled out so further invest igation with MRA will be done May 16, 2020-CT abdomen and pelvis showed numerous hepatic nodules, new lef t renal vein thrombosis CT of the thorax done on May 16, 2020 showed pulmonary embolism new and no evidence of nodules Assessment/Plan- Carter Vegacurrently has a diagnosis of ulcerative colitis status post Hartma n's procedure for perforated diverticulitis in 2006, history of deep venous thro mbosis, atrial fibrillation on therapeutic anticoagulation. Patient was having this recurrent abscess looking lesions since February 2020 was initially followed up in [facility] and continued on antibiotic. Later this lesions on 2019 scan showed continued enlargement and was admitted to the [facility] on which she underwent IR guided directed biopsy of this mass resulting t he diagnosis of poorly differentiated adenocarcinoma. Patient's case was then d iscussed in the multidisciplinary tumor board and GI and consensus was for the i ntrahepatic multifocal cholangiocarcinoma. Patient is being seen in the office today. She was looking forward for this vis it as he mentions. She does have fatigue and tiredness and loss of appetite. H owever she is willing to try treatment and is determined to try her best. She l priti by herself however her son is very supportive of her and lives closer by. She has lost her another child who is her daughter to sleep apnea and her husban d 8 years ago. The status of her intrahepatic multifocal cholangiocarcinoma is not treated curr ently and is planned for treatment with palliative intent systemic therapy with gemcitabine and cis-[place] day 1 day 8 every 21-day. The consensus from the [facility] tumor board was possibly offering her liver directed therapy sh ould there be an adequate good response to initial systemic therapy. There was also a concern for multifocal areas of restricted diffusion and enhanc ement in the brain while she was admitted in the hospital however this are more concerning for infarct rather than a metastasis and will be getting an MRA of th e brain to determine further. We are also getting a PET CT scan. She will be r eferred to palliative care as well. For her pain medications we are putting her on fentanyl patch and morphine immed iate release as covered by the insurance. Patient's current issues of multifocal intrahepatic cholangiocarcinoma is gettin g treated as above and additional work up as mentioned below are pursued. I pers onally reviewed relevant history pertinent labs, medicines, imaging ( CT, ultras ound). I personally reviewed the films and discussed with radiologist at the GI tumor board and old records from hospital stay. She will be continued on anticoagulation with Lovenox for her diagnosis of pulmo nary embolism. Specific risks with cisplatin that may include severe emetogenecity, nephrotoxic ity, ototoxicity and penitentiary neurotoxicity were specifically addressed. Formal chemoherapy teaching completed and signed consent obtained. Adverse effects and risks of chemotherapy discussed at length in layman terms in cluding but not limited to nausea, vomiting, alopecia, allergic and serious reac tions, as well as risk of low blood counts which may lead to blood transfusions or growth factors and an increased likelihood of infections which can even be se rious and fatal rarely. He is aware of t he late effects of chemotherapy includi ng but not limited to leukemogenecity bone marrow failure.Immunotherapy in parti cular can lead to immune related events like thyroiditis, colitis, pneumonitis, adrenalitis, hypophysitis with symptoms of fatigue, weight gain or loss, diarrhe a, cough, renal failure and at times can be life threatening as well leading to of the patient. Chemotherapy consent-in file for gemcitabine and cisplatin Orders Placed This Encounter MR Angiography Head with and without Contrast 1-2 weeks Standing Status: Future Standing Expiration Date: 08/28/2021 Scheduling Instructions: Use the comment section for radiology exam instructions. Please use this sec tion for patient scheduling and medical front desk coordinator instructions only. Order Specific Question: Reason for exam: Answer: cholangiocarcinoma, assess for metastatic disease Order Specific Question: History of acute or chronic kidney disease includin g transplant, single kidney, renal surgery, or renal cancer? Answer: No Order Specific Question: Diabetes? Answer: No Order Specific Question: Liver Transplant? Answer: No Order Specific Question: Prior allergic reaction to MRI Contrast Dye (Gadoli nium) Answer: No Order Specific Question: Does patient have a pacemaker? Answer: No Order Specific Question: Does the patient have any devices/implants? Answer: No Order Specific Question: Interpretation? Answer: Routine Pet with CT Imaging Skull to Thigh Standing Status: Future Standing Expiration Date: 08/28/2021 Scheduling Instructions: 1-2 weeks Order Specific Question: Reason for exam: Answer: cholangiocarcinoma; assess for systemic disease Order Specific Question: Interpretation? Answer: Routine IR Vascular Access Insertion or Removal Standing Status: Future Standing Expiration Date: 08/31/2021 Scheduling Instructions: 1-2 weeks Order Specific Question: Reason for exam: Answer: chemoport for chemotherapy Order Specific Question: Laterality: Answer: No laterality preference Order Specific Question: Number of ports: Answer: Single Order Specific Question: Interpretation? Answer: Routine Referral to Gastroenterology Referral Priority: STAT Referral Type: Consultation Referral Reason: Specialty Services Required Requested Specialty: Gastroenterology Number of Visits Requested: 1 Ref to Ambulatory Adult Palliative Care Program Referral Priority: Routine Referral Type: Consultation Referral Reason: Specialty Services Required Referred to Provider: Heather Frye MD Number of Visits Requested: 1 Prochlorperazine Maleate 10 MG Oral Tablet (COMPAZINE) Sig: Take 1 tablet by mouth every 6 (six) hours as needed (Nausea/Vomiting) Dispense: 30 tablet Refill: 1 Ondansetron HCl 8 MG Oral Tablet (ZOFRAN) Sig: Take 1 tablet by mouth every 8 (eight) hours as needed for Nausea or Vom iting Dispense: 20 tablet Refill: 1 DISCONTD: oxyCODONE HCl 5 MG Oral Capsule (OXY-IR) Sig: Take 1 capsule by mouth every 6 (six) hours as needed for Pain for up to 7 days, Max Daily Dose: 20 mg Dispense: 28 capsule Refill: 0 Docusate Sodium 50 MG/5ML Oral Liquid (COLACE) Sig: Take 10 mLs by mouth Two Times Daily for 10 days Dispense: 100 mL Refill: 0 Morphine Sulfate 15 MG Oral Tablet (MSIR) Sig: Take 1 tablet by mouth every 6 (six) hours as needed for Pain for up to 7 days, Max Daily Dose: 60 mg Dispense: 28 tablet Refill: 0 Spoke to [facility], no auth required. 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 Patient was agreeable with plan of care. Also patient and patient did ask questions [facility] were answered to their satisfaction and to the best of our knowledge. Aicha Warner MD Pager - [phone] [employer] Department of Hematology Oncology [facility] 06/08/2020 3:29 PM * Pj Augustin, DO - 05/30/2020 10:30 AM EST [facility] Hematology / Oncology Office Visit Encounter Name: : MRN: Carter Vega [id number] Chief Complaint: Follow-up Subjective Diagnosis: Multifocal intrahepatic cholangiocarcinoma Current Treatment: OP Biliary Tract Cancer Cisplatin / Gemcitabine Previous Treatment: None History of Illness: Ms. Carter Vega is a 74 y.o. female with a known past medical history of ulce rative colitis status post Sanchez's procedure for perforated diverticulitis in 2006. Patient also has atrial fibrillation and a history of DVT for which she t akes therapeutic Lovenox. She was transferred to from [facility] for concerns of liver abscesses first noted in a CT scan done in February 2020 that w as drained by IR. Follow-up CAT scan done on April 2020 showed enlargement a nd nonfunctioning of the drain that was placed previously and was removed on . Ultrasound showed a 10 cm collection of fluid in the liver. Patient was tra [facility]red [facility]. At [facility], she has placed on antibiotics. She underwent an IR guided biopsy/dr porras of the fluid collection returning suspicious results of malignancy. A repea t core needle biopsy was performed on 04/25/2020 confirming poorly differentiated adenocarcinoma. An MRI of the brain revealed multiple multiple areas of restri cted diffusion and enhancement suspicious for brain metastases versus infarcts. A bone scan was not performed. There was no thoracic metastatic disease noted. Interim History: 05/30/2020: Here today for follow-up following hospitalization from 05/10/2020 thr [facility] 05/17/2020. She complains of abdominal pain which is poorly controlled. S he is using a fentanyl patch, but was unsure if she could take oxycodone as blayne kthrough. Extended release oxycodone was not approved by her insurance nor was short acting. We have discussed her case in multidisciplinary tumor board and f leah that her clinical picture is likely consistent with multifocal intrahepatic cholangiocarcinoma with likely brain metastases and not abscesses, but her brain picture could be confounded by the presence of possible infarcts. Performance Status: ECO- Ambulatory and capable of all self-care but unable to carry out any wor k activities; up and about more than 50% of waking hours Medical and Surgical History: She has a past medical history of Atrial fibrillation, DVT (deep venous thrombos is), Hypertension, and Thyroid disease. She has a past surgical history that inc ludes Thyroidectomy and Colectomy/Colon Resection. Allergies and Medications: She has No Known Allergies. Current Outpatient Medications: Calcium Carbonate Antacid 500 MG Oral Tablet Chewable (TUMS), 500 mg, Or al, BID PRN Docusate Sodium 50 MG/5ML Oral Liquid (COLACE), 100 mg, Oral, BID Enoxaparin Sodium 80 MG/0.8ML Subcutaneous Solution (LOVENOX), 80 mg, Ochoa bcutaneous, Daily fentaNYL 25 MCG/HR Transdermal Patch 72 Hour (DURAGESIC), APPLY 1 PATCH TOPICALLY EVERY 3 DAYS MAXIMUM DAILY DOSE 1 PATCH EVERY 3 DAYS FLUoxetine HCl 20 MG Oral Capsule (PROZAC), 20 mg, Oral, Daily Levothyroxine Sodium 125 MCG Oral Tablet (SYNTHROID), 125 mcg, Oral, Morenita ly Lidocaine 5 % External Patch (LIDODERM), 2 patch, Transdermal, Daily Morphine Sulfate 15 MG Oral Tablet (MSIR), 15 mg, Oral, Q6H PRN Ondansetron HCl 8 MG Oral Tablet (ZOFRAN), 8 mg, Oral, Q8H PRN Potassium Chloride Kecia ER 10 MEQ Oral Tablet Extended Release (K-DUR), 10 mEq, Oral, BID Prochlorperazine Maleate 10 MG Oral Tablet (COMPAZINE), 10 mg, Oral, Q6H PRN sulfaSALAzine 500 MG Oral Tablet (AZULFIDINE), 500 mg, Oral, 4x Daily Social and Family History: She reports that she has quit smoking. She has never used smokeless tobacco. She reports previous alcohol use. She reports previous drug use. Her family history is not on file. Review of Systems Constitutional: Positive for fatigue. Gastrointestinal: Positive for abdominal pain. Objective Vital Signs: BP 118/79 (BP Location: Left arm, Patient Position: Sitting, Cuff s ize: Regular) | Pulse 84 | Temp 37.1 C (98.7 F) (Oral) | Resp 16 | H t 1.473 m (4' 10") | Wt 74.8 kg (165 lb) | SpO2 93% Comment: ra | BMI 34.49 kg /m Wt Readings from Last 3 Encounters: 05/30/20 74.8 kg (165 lb) 05/10/20 61.8 kg (136 lb 3.2 oz) Physical Exam Vitals signs and nursing note reviewed. Constitutional: Appearance: She is ill-appearing. HENT: Head: Normocephalic and atraumatic. Nose: Nose normal. Mouth/Throat: Mouth: Mucous membranes are moist. Pharynx: Oropharynx is clear. Eyes: Extraocular Movements: Extraocular movements intact. Pupils: Pupils are equal, round, and reactive to light. Neck: Musculoskeletal: Normal range of motion and neck supple. Cardiovascular: Rate and Rhythm: Normal rate. Pulses: Normal pulses. Pulmonary: Effort: Pulmonary effort is normal. Breath sounds: Normal breath sounds. Abdominal: General: Abdomen is flat. Tenderness: There is abdominal tenderness. Musculoskeletal: Normal range of motion. Skin: General: Skin is warm and dry. Neurological: General: No focal deficit present. Mental Status: She is alert and oriented to person, place, and time. Mental s tatus is at baseline. Psychiatric: Mood and Affect: Mood normal. Behavior: Behavior normal. Lab Results Component Value Date WBC 11.7 (H) 05/17/2020 HGB 10.5 (L) 05/17/2020 HCT 33.3 (L) 05/17/2020 MCV 79.4 (L) 05/17/2020 PLT 318 05/17/2020 Lab Results Component Value Date NEUTROABS 7.81 (H) 05/17/2020 NEUTOPHILPCT 66 05/17/2020 LYMPHOPCT 9 05/17/2020 MONOPCT 14 05/17/2020 EOSPCT 10 05/17/2020 Lab Results Component Value Date NA 136 05/17/2020 K 4.5 05/17/2020 CL 104 05/17/2020 BICARBONATE 25 05/17/2020 BUN 10 05/17/2020 CREATININE 0.78 05/17/2020 GLUCOSE 90 05/17/2020 Lab Results Component Value Date CALCIUM 9.2 05/17/2020 PHOS 3.0 05/17/2020 Lab Results Component Value Date PROT 6.4 05/13/2020 ALBUMIN 3.1 (L) 05/13/2020 AST 11 05/13/2020 ALT 13 05/13/2020 TBILI 0.3 05/13/2020 ALKPHOS 244 (H) 05/13/2020 Lab Results Component Value Date INR 1.25 05/15/2020 PROP 15.8 (H) 05/15/2020 PTTP 30.1 05/15/2020 Lab Results Component Value Date AFETOPROTEIN 1 05/13/2020 CA199 9,179 (H) 05/13/2020 CEA 33.7 (H) 05/13/2020 Data Reviewed: Ct Abdomen Pelvis With And Without Contrast Result Date: 05/16/2020 IMPRESSION: 1. New left renal vein thrombus. The severe gallbladder hydrops is c ompressing the proximal portion of the left renal vein and is considered likely cause of this thrombus. 2. Stable severe gallbladder hydrops and cholelithiasis is noted. 3. Interval increased attenuation of the hepatic abscess may be relate d to post drainage appearance although the size of the lesion is not significant ly changed. Numerous low-density hepatic nodules are present some of which have cystic characteristics although within the right hepatic lobe there are numerous small nodules which are indeterminate may also potentially represent small absc esses or metastatic foci. 4. 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 ( Reference: Lidia 2017) Mr Brain With And Without Contras Result Date: 05/17/2020 IMPRESSION: Multiple areas of for restricted diffusion and enhancement as discus sed above. It is difficult to differentiate between small infarct and brain meta stasis. However, it appears that lesions may be following etiology 1. Bilateral parietal and the right superior frontal convexity subcortical tiny nodular lesi ons most likely metastatic lesions. 2. Right-sided centrum semiovale restricted diffusion and enhancing lesion-most likely infarct rather than metastasis 3. Lef t lateral cerebellar lesion most likely acute infarct 4. A linear enhancing lesi on in the right lateral cerebellum may represent a subacute or chronic infarct a s there is no restricted diffusion on ADC map. Differential diagnosis includes m etastasis or DVA. 5. Left posterior cerebellar enhancing linear branching lesion , possible developmental venous anomaly. 6. chronic lacunar infarcts are also pr esent as discussed above. Recommended follow-up were MR studies to assess evolut ion of these lesions. Ct Thorax With Contrast Result Date: 05/16/2020 IMPRESSION: 1. New small pulmonary emboli within both right and left lower lobe. Small left upper lobe pulmonary embolism. 2. Small area of subpleural atelectas is/consolidation peripherally right lower lobe. Otherwise some small scattered a reas of atelectasis noted bilaterally. Pathology Reviewed: Lab Results Component Value Date SURGPATH 05/15/2020 Surgical Pathology Report Name: CARTER VEGA Collection Date: 05/15/2020 00:00 Received Date: 05/15/2020 11:46 Physician(s): JEANNETTE HOROWITZ MD JAWED, MOHAMMED, MD Copy To: JJ JAMES MD Specimen(s) Received A: Targeted liver lesion biopsy Diagnosis LIVER LESION, TARGETED BIOPSY: ADENOCARCINOMA, MODERATE TO POORLY DIFFERENTIATED Microscopic Description The tumor cells are positive for CK7, GATA3 (weak, focal), NE (weak, focal) and negative for CDX2, CK20, TTF1, GCDFP15, PAX8 and ER. P63 labels rare cells. The differential diagnosis includes pancreatobiliary and upper GI primaries. Given the weak GATA3 positivity and lack of GCDFP15 expression, breast primary is less likely. Assessment/Plan Ms. Carter Vega is a 74 y.o. female with multiple liver masses. First felt t o be consistent with a liver abscess, but pathology confirmed poorly differentia mack adenocarcinoma likely other pancreatobiliary or upper GI origin. CA 19-9 th at is markedly elevated at 9179. AFP is normal while CEA is 33.7. There is con cern for BUSINESS SU[employer]IST metastases. 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; metastatic Diagnosed 05/15/2020 Her case was reviewed at hepatobiliary multidisciplinary tumor board includ ing the images from her MRI and suspected brain metastases and liver imaging The consensus is that she likely has multifocal intrahepatic cholangiocarci noma within the liver and likely brain mets The recommendation was for a MRA of the brain and a PET scan Given her advanced stated disease, we would offer her systemic chemotherapy in any event and I consented her today for Gemcitabine and cisplatin We discussed at length the risks and benefits of pursuing treatment with chemoth erapy including the adverse effects in layman terms. Some of these side effects include, but are not limited to, nausea, vomiting, fatigue, headache, alopecia, and low blood counts leading to anemia, bleeding, or infections. These side effe cts can range from mild to severe and even fatal. There is also potential for se ashlee allergic reactions. Informed consent was obtained. Foundation 1 studies are still pending; she has a high PD-L1 TPS score of 9 5% Port ordered today Pain due to Malignancy (G89.3) Continue with 25 mcg fentanyl patch Short acting morphine ordered to her pharmacy as it is covered by her insur [employer] (7 day supply) She is instead in medical marijuana and I will refer her to our palliative care services Nausea with vomiting (R11.2) Antinausea medication released from her treatment plan today Orders Placed This Encounter MR Angiography Head with and without Contrast Pet with CT Imaging Skull to Thigh Referral to Gastroenterology Ref to Ambulatory Adult Palliative Care Program Prochlorperazine Maleate 10 MG Oral Tablet (COMPAZINE) Ondansetron HCl 8 MG Oral Tablet (ZOFRAN) DISCONTD: oxyCODONE HCl 5 MG Oral Capsule (OXY-IR) Docusate Sodium 50 MG/5ML Oral Liquid (COLACE) Morphine Sulfate 15 MG Oral Tablet (MSIR) Pj Augustin DO Hematology/Oncology Office: [phone] Plan discussed with: Aicha Warner MD Next Appointment Return in about 1 week (around 06/06/2020) for Next week for Elburn Cis D1 an d D8 INFUSION ONLY; 06/20 for OV and labs. Certain parts of this note may have been carried over from the EMR and prior not es to maintain accuracy of patient's pertinent medical history and continuity of care. The details were verified and edited as appropriate. documented in this encounter Nursing Notes * Radha Nicole, RN - 05/30/2020 10:30 AM EST Teach and consent completed for cisplatin and gemzar. Patient given information on medications to review with her son when she gets home. Pt did score 10 on the distress scale. After speaking with the patient and Dr. Warner together, patient expressed her concerns with us. Most of her concerns c ome back to her uncontrolled pain along with making treatment decisions. She is disheartened by the diagnosis of her cancer. We did offer other resources that we have here and declined any referrals except for palliative care for medical marijuana and to talk to someone from there. Patient was provided our phone num nilton to call with any issues going forward. documented in this encounter Plan of Treatment Care Team Description Date Type Specialty 06/10/2020 Hospital Radiology Encounter 06/13/2020 Appointment Radiology 06/14/2020 Clinical Infectious Diseases Support Dariel Logan MD [address] [place] [address] 06/18/2020 Appointment Radiology Lolis Dc MD [address] [place] [address] 06/20/2020 Office Visit Hematology and Onco logy 07/04/2020 Clinical Hematology and Onco logy Support 07/18/2020 Clinical Hematology and Onco logy Support 07/25/2020 Clinical Hematology and Onco logy Support 08/08/2020 Clinical Hematology and Onco logy Support 08/15/2020 Clinical Hematology and Onco logy Support 08/29/2020 Clinical Hematology and Onco logy Support Order Schedule Name Type Priority Associated Diag noses Expected: 05/30/2020, Expires: MR Angiography Head with Imaging Routine Chola ngiocarcinoma and without Contrast Expected: 05/30/2020, Expires: [address] Imaging Skull Imaging Routine Chol angiocarcinoma to Thigh Expected: 06/02/2020, Expires: 2 IR Vascular Access Imaging Routine Cholangioca rcinoma Insertion or Removal Order Schedule Name Type Priority Associated Diag noses Ordered: 05/29/2020 Referral to Outpatient STAT Cholangiocarcin teddy Gastroenterology Referral Ordered: 05/30/2020 Ref to Ambulatory Adult Outpatient Routine Cholan giocarcinoma Palliative Care Program Referral Health Maintenance Due Date Last Done Comments MMR Vaccines (1 of 1 - 10/31/1946 Standard series) Varicella Vaccines (1 of 10/31/1946 2 - 2-dose childhood series) Pneumococcal Vaccine: 1951 Pediatrics (0 to 5 Years) and At-Risk Patients (6 to 64 Years) (1 of 3 - PCV13) DTaP,Tdap,and Td Vaccines 1952 (1 - Tdap) Breast Cancer Screening 2 1996 years Colon Cancer Screening 10 1996 yrs Zoster Vaccines (1 of 2) 1996 Osteoporosis Screening 2 10/31/2011 yr Pneumococcal Vaccine: 65+ 10/31/2011 Years (1 of 1 - PPSV23) Influenza Vaccine 02/21/2020 01/30/2020, 02/19/2019, 02/11/2018, Additional history exists Hepatitis C Screening (B. Completed 05/10/202019441443-0766) HIB Vaccines Aged Out No longer eligible based on patient's age to complete this topic Hepatitis A Vaccines Aged Out No longer eligibl e based on patient's age to complete this topic Hepatitis B Vaccines Aged Out No longer eligibl e based on patient's age to complete this topic IPV Vaccines Aged Out No longer eligible based on patient's age to complete this topic documented as of this encounter Procedures Comments Procedure Name Priority Date/Time Associated Diag nosis PATHOLOGY REPORT 06/02/2020 Cholangiocarcinoma (OUTSIDE/HISTORICAL) 10:43 AM EST documented in this encounter Results * PATHOLOGY REPORT (OUTSIDE/HISTORICAL) (06/02/2020 10:43 AM EST) Narrative Performed At This result has an attachment that is n ot available. 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
--- OUTSIDE RECORDS SUMMARY | 2020-06-18 15:40 | CCD | Summary of Care ---
Author Author [facility] Organization [facility] Address Unknown Phone Unavailable Care Team Providers Care Skiver Operator Name Role Phone Roshan Long MD PCP Reason for Referral * (Routine) Referred By Contact Referred To Contact Status Reason Specialty Diagnoses / Procedures Luca Archer MD [address] [facility] [address] [place] [address] Email: [email or web address] Open Diagnoses Imaging abnormality P rocedures Diagnostic colonoscopy * (Routine) Referred By Contact Referred To Contact Status Reason Specialty Diagnoses / Procedures Luca Archer MD [address] [facility] [address] [place] [id number] Email: [email or web address] Open Diagnoses Imaging abnormality P rocedures EGD Reason for Visit * Reason Comments New Patient Encounter Details Care Team Description Date Type Department Luca Archer MD [address] [facility] [address] [place] [address] [phone] Imaging abnormality (Primary Dx) 06/03/2020 [facility] [address] [address] Allergies No Known Allergiesdocumented as of this encounter (statuses as of 06/03/2020) Medications End Date Status Medication Sig Dispensed [...] daily 12 hours on 12 hours off Active fentaNYL 25 MCG/HR APPLY 1 PATCH 0 Transdermal Patch 72 Hour TOPICALLY 0 (DURAGESIC) EVERY 3 DAYS MAXIMUM DAILY DOSE 1 PATCH EVERY 3 DAYS Active Prochlorperazine Maleate Take 1 tablet 30 tablet 1 10 MG Oral Tablet by mouth 1 (COMPAZINE)Indications: every 6 (six) Adenocarcinoma determined hours as by biopsy of liver needed (Nausea/Vomit ing) Active Ondansetron HCl 8 MG Oral Take 1 tablet 20 tablet 1 Tablet by mouth 1 (ZOFRAN)Indications: every 8 Adenocarcinoma determined (eight) hours by biopsy of liver as needed for Nausea or Vomiting 06/12/2020 Active Docusate Sodium 50 MG/5ML Take 10 mLs 100 mL 0 Oral Liquid (COLACE) by mouth Two 1 Times Daily for 10 days 06/09/2020 Active Morphine Sulfate 15 MG Take 1 tablet 28 tablet 0 0 Oral Tablet (MSIR) by mouth 1 every 6 (six) hours as needed for Pain for up to 7 days, Max Daily Dose: 60 mg 07/03/2020 Active Bisacodyl 5 MG Oral Take 4 4 tablet 0 Tablet Delayed Release tablets one 1 (DULCOLAX)Indications: day prior to Imaging abnormality colonoscopy. 06/03/2020 Active PEG Take 4,000 4000 mL 0 0000-HAg-[id number]-NaCl-NaSul mLs by mouth 1 f 236 GM Oral Solution once for 1 Reconstituted dose (GoLYTELY,NuLYTELY)Indica tions: Imaging abnormality 06/10/2020 Active Polyethylene Glycol 3350 Take 17 g by 850 g 0 17 GM/SCOOP Oral mouth nightly 1 PowderIndications: for 7 Imaging abnormality daysTake 1 capful at bedtime starting 1 week prior to colonoscopy. documented as of this encounter (statuses as of 06/03/2020) Active Problems Problem Noted Date Adenocarcinoma determined by biopsy of liver 021 Hepatic abscess 05/10/2020 Current use of roasterman anticoagulation 05/10/2020 Ulcerative colitis 05/10/2020 documented as of this encounter (statuses as of 06/03/2020) Social History Date Tobacco Use Types Packs/Day Years Used Former Smoker Smokeless Tobacco: Never Used Drinks/Week oz/Week Comments Alcohol Use Not Currently Sex Assigned at Date Recorded Not on file Date Recorded COVID-19 Exposure Response 06/03/2020 9:07 AM EST In the last month, have you been in contact with No / Unsure someone who was confirmed or suspected to have Coronavirus / COVID-19? documented as of this encounter Last Filed Vital Signs Not on filedocumented in this encounter Progress Notes * Luca Archer MD - 06/03/2020 1:45 PM EST Subjective: Patient ID: Munira Guerra is a 74 y.o. female. HPI The patient is a 74-year-old lady with past medical history as described below, who was diagnosed with multiple liver masses suspicious for poorly differentiate d adenocarcinoma with suspected brain metastases. She was recently seen at the oncology office and was referred to us for a bidirectional endoscopy to rule out any intraluminal GI tract lesions. In my conversation today, the patient does not report any dysphagia heartburn reflux or GI bleeding. She has normal had an upper endoscopy ever. She has not had a colonoscopy In more than a couple of years. Family history was also reviewed and is noncont ributory. Munira has a past medical history of Atrial fibrillation, DVT (deep venous thromb osis), Hypertension, and Thyroid disease. Munira has a past surgical history that includes Thyroidectomy and Colectomy/Bushnell n Resection. Her family history is not on file. Munira reports that she has quit smoking. She has never used smokeless tobacco. S he reports previous alcohol use. She reports previous drug use. Munira has a current medication list which includes the following prescription(s): calcium carbonate, docusate, enoxaparin sodium, fentanyl, fluoxetine, levothyro xine, lidocaine, morphine, ondansetron, potassium chloride sa, prochlorperazine, and sulfasalazine. Munira has No Known Allergies. Review of Systems All other systems reviewed and are negative. except as per hpi. Objective: Physical Exam All recent labs/ imaging/ endoscopy reports/ pathology / outside records were retrieved and reviewed by me personally. Assessment/plan: The patient is a 74-year-old lady with past medical history as described below, who was diagnosed with multiple liver masses suspicious for poorly differentiate d adenocarcinoma with suspected brain metastases. Since the patient has a new d iagnosis of untreated and disseminated cancer, She is ASA 3 And will need MAC to accomplish the diagnostic upper endoscopy and colonoscopy This is a tele-medical visit. The patient was informed of the risks including se curity breach, technological failure, inability to perform a comprehensive physi renan exam which could delay or prevent an accurate diagnosis, and potential compl ications from treatment decisions rendered over a telemedical platform. The hailey ent understands and consented to the use of tele-health services. The service was provided by means of an audio telecommunication. Time spent on this evaluation today: 45 minutes documented in this encounter Plan of Treatment Care Team Description Date Type Specialty 06/06/2020 Clinical Hematology and Onco logy Support 06/13/2020 Appointment Radiology Lolis Dc MD [address] [place] [address] 06/20/2020 Office Visit Hematology and Onco logy 07/04/2020 Clinical Hematology and Onco logy Support 07/18/2020 Clinical Hematology and Onco logy Support 07/25/2020 Clinical Hematology and Onco logy Support 08/08/2020 Clinical Hematology and Onco logy Support 08/15/2020 Clinical Hematology and Onco logy Support 08/29/2020 Clinical Hematology and Onco logy Support Order Schedule Name Type Priority Associated Diag noses Ordered: 06/03/2020 EGD GI Routine Imaging abnorma lity Ordered: 06/03/2020 Diagnostic colonoscopy GI Routine Imaging abnormality Health Maintenance Due Date Last Done Comments MMR Vaccines ( - 10/31/1946 Standard series) Varicella Vaccines (1 [...] history exists Hepatitis C Screening (B. 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
--- OUTSIDE RECORDS SUMMARY | 2020-06-18 15:40 | CCD | Continuity of Care Document ---
Author Author Munira LONG M.D. Organization Unknown Address [address] [address] Phone [phone] Care Team Providers Care Route Delivery Clerk Name Role Phone Carine Del Toro M.D. AUTM [phone] Problems Active Problems Provider Date Type 2 diabetes mellitus Roshan Long M.D. Onset: 03/24 Hyperlipidemia Roshan Long M.D. Onset: 3 Benign essential hypertension Roshan Long M.D. Onset: 04/18/2013 Ulcerative colitis Roshan Long M.D. Onset: 3 H/O: pulmonary embolus Ethel Armstrong, [facility] Onset: 017 Social History Type Date Description Comments Sex Unknown ETOH Use Denies alcohol use Tobacco Use Start: Unknown End: Unknown Patient is a former smoker quit 1999 Allergies, Adverse Reactions, Alerts Active Allergies Reaction Severity Comments Date No Known Drug Allergy 2012 Medications Active Medications SIG Qnty Indications Ordering Provide r Date Percocet 5-325mg Tablets 1 by mouth every 8 hours as needed for back pain, [id number] 15tabs Roshan Benitez M.D. 05/19/2020 Fentanyl 25mcg/HR Patches 72HR apply patch topically every 3 days Patient is here for follow up of hypertension. Antihypertensive medication has been taken as prescribe 10units Roshan Long M.D. 05/19/2020 Coumadin 4mg Tablets take 1 by mouth every day . 90tabs Roshan Long M.D. 02/27/20 20 Potassium Chloride ER 10Meq Capsul es ER 2 by mouth once daily 180caps Roshan Long M.D. 06/23 Torsemide 10mg Tablets take 1-2 tablet by mouth every day, take second dose if weight is up more than 2 lbs 90tabs Roshan Long M.D. 07/05/2016 Fluoxetine HCL 20mg Capsules Take 1 Capsule Daily 90caps Roshan Long M.D. 06/30/19 [address] Marco po Aman Gonzalez Levothyroxine Sodium 125mcg Tablet s 1 by mouth every day Unknown Lovenox 80mg/0.8ML Solution inject once dose twice a day Unknown History Medications Oxycontin 20mg Tab ER 12H Abuse-De t 1 by mouth twice daily [id number] palliative care 60tabs [facility] Roshan moreno M.D. 05/19/2020 - 05/19/2020 Liothyronine Sodium 25mcg Tablets 1 p.o. qd x 30 days Unknown 02/24/2020 - 07/2019 Immunizations CPT Code Status Date Vaccine Lot # [id number] Given 01/30/2020 Influenza Virus Vaccine, Quadrivalent, Slit Virus, Im Use 3Y & Up [id number] 86036 Given 02/19/2019 Influenza Virus Vaccine, Quadrivalent, Slit Virus, Im Use 3Y & Up [id number] 09621 Given 07/11/2015 Pneumococcal Immunization [id number] Vital Signs Date Vital Result Comment 05/19/2020 11:31am BP Systolic 148 mmHg BP Diastolic 96 mmHg Body Temperature 98.0 F Heart Rate 130 /min Respiratory Rate 18 /min Height 58 inches 4'10" Weight 172.00 lb [place] Body Weight 100 lb BMI (Body Mass Index) 35.9 kg/m2 O2 % BldC Oximetry 96 % 05/05/2020 11:29am BP Systolic 122 mmHg BP Diastolic 80 mmHg Body Temperature 97.6 F Heart Rate 70 /min Respiratory Rate 18 /min Height 58 inches 4'10" Weight 166.00 lb [place] Body Weight 100 lb BMI (Body Mass Index) 34.7 kg/m2 Results Test Acquired Date Facility Test Result H/L Range Note Ua Routine 05/09/2020 [facility]) [phone] Appearance, Urine CLEAR Normal Clear Color, Urine YELLOW Normal Yellow PH,Urine 6.0 units Normal 5.0-9.0 Specific [place] Urine Auto >1.060 High 1.002-1.035 Protein, Urine Auto 1+ mg/dL High Negative Glucose, Urine (Ua) Auto NEGATIVE mg/dL Normal Negative Ketone, Urine Auto NEGATIVE mg/dL Normal Negative Urobilinogen, Urine Auto 0.2 mg/dL Normal 0.0-2.0 Bilirubin, Urine Auto NEGATIVE Normal Negative Nitrite, Urine Auto NEGATIVE Normal Negative Leukocyte Esterase, Urine Auto 2+ High Negative Blood, Urine Blood NEGATIVE Normal Negative WBC, Urine Auto 16 /HPF High 0-3 RBC, Urine Auto 3 /HPF Normal 0-3 Bacteria, Urine Auto NEGATIVE Normal Negative Squamous Epithelial Cell Ur AU 0 /HPF Normal 0-6 Hyaline Cast, Urine Auto 0 /LPF Normal 0-1 Influenxa A/B RSV Covid Amp 05/09/2020 [facility] (Interface) [phone] Influenza A Amplification NEGATIVE Normal Negati ve 1 Influenza B Amplification NEGATIVE Normal Negative 2 RSV Amplification NEGATIVE Normal Negative 3 Sars Covid-19 Amplification NEGATIVE Normal Negative 4 CBC With Differential 05/09/2020 [facility] (Interface) [phone] White Blood Count 20.6 10 High 4.0-10.0 Red Blood Count 4.69 10 Normal 4.00-5.40 Hemoglobin 11.9 g/dL Low 12.0-15.5 Hematocrit 38.5 % Normal 36.0-47.0 Mean Corpuscular Volume 82.1 fl Normal 80.0-96.0 Mean Corpuscular Hemoglobin 25.4 pg Low 27.0-33.0 Mean Corpuscular HGB Conc 30.9 g/dL Low 32.0-36.5 Red Cell Distribution Width 16.6 % High 11.5-14.5 Platelet Count, Automated 298 10 Normal 150-450 Neutrophils % 79.7 % High 36.0-66.0 Lymph % 5.1 % Low 24.0-44.0 [place] % 10.5 % High 0.0-5.0 Eos % 3.2 % High 0.0-3.0 Baso % 0.5 % Normal 0.0-1.0 Immature Granulocyte % 1.0 % Normal 0-3.0 Nucleated Red Blood Cell % 0.0 % Normal 0-0 Neutrophils # 16.4 10 High 1.5-8.5 Lymph # 1.1 10 Low 1.5-5.0 [place] # 2.2 10 High 0.0-0.8 Eos # 0.7 10 High 0.0-0.5 Baso # 0.1 10 Normal 0.0-0.2 Prothrombin Time/Inr 05/09/2020 [facility] ( Interface) [phone] Prothrombin Time 13.7 seconds Normal 12.5-14.3 Inr 1.03 Normal 5 Laboratory test finding 05/09/2020 [facility] (Interface) [phone] Partial Thromboplastin Time 36.0 seconds Normal 24 .2-38.5 Lactic Acid Sepsis Protocol 1.1 mmol/L Normal 0.4-2.0 6 Cardiac Marker Panel 05/09/2020 [facility] ( Interface) [phone] CPK Creatine Phosphokinase 18 U/L Low 26-19 2 CK-MB Value Mass < 1.0 NG/ML Normal <3.6 MB/CK Relative Index 5.56 High < Or =4 7 Troponin I < 0.02 NG/ML Normal < 0.10 8 Liver Profile 05/09/2020 [facility] (I nterface) [phone] Ast/Sgot 24 U/L Normal 7-37 Alt/SGPT 22 U/L Normal 12-78 Alkaline Phosphatase 174 U/L High 45-117 Bilirubin,Total 0.4 mg/dL Normal 0.2-1.0 Bilirubin,Direct 0.2 mg/dL Normal 0.0-0.2 Total Protein 6.7 GM/DL Normal 6.4-8.2 Albumin 2.7 GM/DL Low 3.2-5.2 Albumin/Globulin Ratio 0.7 Low 1.2-2.2 Basic Metabolic Profile 05/09/2020 [facility] (Interface) [phone] Glucose, Fasting 127 mg/dL High 70-100 Blood Urea Nitrogen 14 mg/dL Normal 7-18 Creatinine For GFR 0.89 mg/dL Normal 0.55-1.30 Glomerular Filtration Rate > 60.0 Normal >39 9 Sodium Level 138 mEq/L Normal 136-145 Potassium Serum 3.6 mEq/L Normal 3.5-5.1 Chloride Level 101 mEq/L Normal 98-107 Carbon Dioxide Level 27 mEq/L Normal 21-32 Anion Gap 10 mEq/L Normal 8-16 Calcium Level 9.1 mg/dL Normal 8.8-10.2 Laboratory test finding 05/09/2020 [facility] (Interface) [phone] Lipase 133 U/L Normal 73-393 10 CMP 05/05/2020 [facility]Inhouse Glu 107 mg/dL 70 - 110 11 BUN 9 mg/dL 8 - 23 Creat 0.9 mg/dL 0.5 - 1.0 BUN/Creatinine Ratio 10 Calc Na 137 mmol/L 136 - 145 K 3.9 mmol/L 3.5 - 5.1 CL 100.5 mmol/L 98.0 - 107.0 Co2 22.1 mmol/L 22.0 - 29.0 CA 10.0 mg/dL 8.6 - 10.2 TP 6.6 g/dL 6.6 - 8.7 Alb 3.8 g/dL 3.4 - 4.8 A/G Ratio 1.4 Calc Globulin 2.8 Calc Alp 179.5 U/L High 35 - 129 Alt (SGPT) 15 U/L 0 - 41 Ast (Sgot) 17 U/L 0 - 40 Tbili 0.33 mg/dL 0.0 - 1.2 Osmolality-Calculated 273.0 Calc Anion Gap 18.3 mmol/L eGFR 74 # Calc 12 eGFR Non-Afr. Filipino 63 # Calc 13 CBC 05/05/2020 [facility]Inhouse WBC 11.1 10E3/uL High 4.1 - 10.9 RBC 4.93 10E6/uL 4.20 - 6.30 HGB 12.5 g/dL 12.0 - 18.0 HCT 40.6 % 37.0 - 51.0 MCV 82.4 fL 80.0 - 97.0 MCH 25.4 pg Low 26.0 - 32.0 MCHC 30.8 g/dL Low 31.0 - 36.0 PLT 440 10E3/uL 140 - 440 RDW-CV 16.1 % High 11.5 - 14.5 Lym% 11.6 % 10.0 - 58.5 Neut% 77.6 % 37.0 - 92.0 MXD% 10.8 % 0.1 - 24.0 Lym# 1.3 10E3/uL 0.6 - 4.1 Neut# 8.6 % High 2.0 - 7.8 MXD# 1.2 10E3/uL 0.0 - 1.8 MPV 9.9 fL 9.0 - 13.0 Prothrombin Time/Inr 05/01/2020 [facility] ( Interface) [phone] Prothrombin Time 14.6 seconds High 12.5-14.3 Inr 1.12 Normal 14 [facility] [phone] White Blood Count 12.4 10 High 4.0-10.0 Red Blood Count 5.11 10 Normal 4.00-5.40 Hemoglobin 12.6 g/dL Normal 12.0-15.5 Hematocrit 41.8 % Normal 36.0-47.0 Mean Corpuscular Volume 81.8 fl Normal 80.0-96.0 Mean Corpuscular Hemoglobin 24.7 pg Low 27.0-33.0 Mean Corpuscular HGB Conc 30.1 g/dL Low 32.0-36.5 Red Cell Distribution Width 15.1 % High 11.5-14.5 Platelet Count, Automated 218 10 Normal 150-450 Neutrophils % 69.8 % High 36.0-66.0 Lymph % 10.7 % Low 24.0-44.0 [place] % 11.2 % High 0.0-5.0 Eos % 7.1 % High 0.0-3.0 Baso % 0.8 % Normal 0.0-1.0 Immature Granulocyte % 0.4 % Normal 0-3.0 Nucleated Red Blood Cell % 0.0 % Normal 0-0 Neutrophils # 8.7 10 High 1.5-8.5 Lymph # 1.3 10 Low 1.5-5.0 [place] # 1.4 10 High 0.0-0.8 Eos # 0.9 10 High 0.0-0.5 Baso # 0.1 10 Normal 0.0-0.2 Prothrombin Time/Inr 04/23/2020 [facility] ( Interface) [phone] Prothrombin Time 22.5 seconds High 12.5-14.3 Inr 1.93 Normal 15 Liver Profile 04/23/2020 [facility] [phone] Ast/Sgot 45 U/L High 7-37 Alt/SGPT 64 U/L Normal 12-78 Alkaline Phosphatase 237 U/L High 45-117 Bilirubin,Total 0.4 mg/dL Normal 0.2-1.0 Bilirubin,Direct 0.1 mg/dL Normal 0.0-0.2 Total Protein 7.5 GM/DL Normal 6.4-8.2 Albumin 3.2 GM/DL Normal 3.2-5.2 Albumin/Globulin Ratio 0.7 Low 1.2-2.2 Basic Metabolic Profile 04/23/2020 [facility] (Interface) [phone] Glucose, Fasting 128 mg/dL High 70-100 Blood Urea Nitrogen 21 mg/dL High 7-18 Creatinine For GFR 1.03 mg/dL Normal 0.55-1.30 Glomerular Filtration Rate 55.9 Normal >39 1 6 Sodium Level 137 mEq/L Normal 136-145 Potassium Serum 3.5 mEq/L Normal 3.5-5.1 Chloride Level 102 mEq/L Normal 98-107 Carbon Dioxide Level 27 mEq/L Normal 21-32 Anion Gap 8 mEq/L Normal 8-16 Calcium Level 9.7 mg/dL Normal 8.8-10.2 PT With Inr-Therapy 04/15/2020 [facility] Prothrombin Time-Therapy 61.0 International Normalized Ratio 5.1 Dosage SKIP WTH Comment 1 CONT 2 DAILY Recheck 2 WEEKS PT With Inr-Therapy 03/17/2020 [facility] Prothrombin Time-Therapy 25.4 International Normalized Ratio 2.1 Dosage 4 DAILY Recheck 1 MONTH CBC 03/17/2020 [facility]Inhouse WBC 11.5 10E3/uL High 4.1 - 10.9 RBC 4.76 10E6/uL 4.20 - 6.30 HGB 13.1 g/dL 12.0 - 18.0 HCT 41.3 % 37.0 - 51.0 MCV 86.8 fL 80.0 - 97.0 MCH 27.5 pg 26.0 - 32.0 MCHC 31.7 g/dL 31.0 - 36.0 PLT 218 10E3/uL 140 - 440 RDW-CV 14.0 % 11.5 - 14.5 Lym% 11.0 % 10.0 - 58.5 Neut% 76.5 % 37.0 - 92.0 MXD% 12.5 % 0.1 - 24.0 Lym# 1.3 10E3/uL 0.6 - 4.1 Neut# 8.8 % High 2.0 - 7.8 MXD# 1.4 10E3/uL 0.0 - 1.8 MPV 10.4 fL 9.0 - 13.0 CMP 03/17/2020 [facility] Glu 85 mg/dL 70 - 110 BUN 14 mg/dL 8 - 23 Creat 0.8 mg/dL 0.5 - 1.0 BUN/Creatinine Ratio 18.2 CALC Na 135 mmol/L Low 136 - 145 K 3.3 mmol/L Low 3.5 - 5.1 CL 99.2 mmol/L 98.0 - 107.0 Co2 23.2 mmol/L 22.0 - 29.0 CA 10.0 mg/dL 8.6 - 10.2 TP 6.9 g/dL 6.6 - 8.7 Alb 3.9 g/dL 3.4 - 4.8 A/G Ratio 1.3 CALC Globulin 3.0 CALC Alp 160.9 U/L High 35 - 129 Alt (SGPT) 10 U/L 0 - 41 Ast (Sgot) 13 U/L 0 - 40 Tbili 0.37 mg/dL 0.0 - 1.2 Osmolality-Calculated 270.1 CALC Anion Gap 16 mmol/L eGFR 85 # Calc 17 eGFR Non-Afr. Filipino 73 # Calc 18 PT With Inr-Therapy 03/10/2020 [facility] Prothrombin Time-Therapy 32.0 International Normalized Ratio 2.7 Dosage 4 DAILY Recheck 1 WEEK PT With Inr-Therapy 03/03/2020 [facility] Prothrombin Time-Therapy 42.3 International Normalized Ratio 3.5 Dosage STOP SHOTS Comment 1 4 DAILY Recheck 1 WEEK PT With Inr-Therapy 02/29/2020 [facility] Prothrombin Time-Therapy 13.1 International Normalized Ratio 1.1 Dosage CONT SHOTS Comment 1 6M DAILY Recheck 03/03 PT & Aptt 02/18/2020 [facility] (I nterface) [phone] Prothrombin Time 13.8 seconds Normal 12.5-14.3 Inr 1.03 Normal 19 Partial Thromboplastin Time 24.1 seconds Low 24.2-38.5 Cardiac Marker Panel 02/18/2020 [facility] ( Interface) [phone] CPK Creatine Phosphokinase 45 U/L Normal 26-19 2 CK-MB Value Mass 1.6 NG/ML Normal <3.6 MB/CK Relative Index 3.56 Normal < Or =4 20 Troponin I 0.22 NG/ML < 0.10 21 Istat Chem8+ Panel 02/18/2020 [facility] (I nterface) [phone] iSTAT HCT 41.0 % Normal 38.0-51.0 iSTAT Glucose 167 mg/dL High 70-105 iSTAT Sodium 140 mEq/L Normal 136-145 iSTAT Potassium 2.8 mEq/L Critical low 3.5-5.1 iSTAT CA++ 4.7 mg/dL Normal 4.5-5.3 iSTAT Chloride 101 mEq/L Normal 98-109 iSTAT Co2 28.0 MM/L High 23.0-27.0 iSTAT BUN 17 mg/dL Normal 8-26 iSTAT Creatinine 1.0 mg/dL Normal 0.6-1.3 CBC With Differential 02/18/2020 [facility] (Interface) [phone] White Blood Count 15.3 10 High 4.0-10.0 Red Blood Count 4.67 10 Normal 4.00-5.40 Hemoglobin 13.1 g/dL Normal 12.0-15.5 Hematocrit 41.8 % Normal 36.0-47.0 Mean Corpuscular Volume 89.5 fl Normal 80.0-96.0 Mean Corpuscular Hemoglobin 28.1 pg Normal 27.0-33.0 Mean Corpuscular HGB Conc 31.3 g/dL Low 32.0-36.5 Red Cell Distribution Width 13.0 % Normal 11.5-14.5 Platelet Count, Automated 204 10 Normal 150-450 Neutrophils % 82.7 % High 36.0-66.0 Lymph % 5.4 % Low 24.0-44.0 [place] % 8.6 % High 0.0-5.0 Eos % 2.1 % Normal 0.0-3.0 Baso % 0.6 % Normal 0.0-1.0 Immature Granulocyte % 0.6 % Normal 0-3.0 Nucleated Red Blood Cell % 0.0 % Normal 0-0 Neutrophils # 12.6 10 High 1.5-8.5 Lymph # 0.8 10 Low 1.5-5.0 [place] # 1.3 10 High 0.0-0.8 Eos # 0.3 10 Normal 0.0-0.5 Baso # 0.1 10 Normal 0.0-0.2 Laboratory test finding 02/18/2020 [facility] (Interface) [phone] Lactic Acid Sepsis Protocol 2.4 mmol/L Critical high 0 .4-2.0 22 Cardiac Marker Panel 02/18/2020 [facility] ( Interface) [phone] CPK Creatine Phosphokinase 41 U/L Normal 26-19 2 CK-MB Value Mass < 1.0 NG/ML Normal <3.6 MB/CK Relative Index 2.44 Normal < Or =4 23 Troponin I 0.08 NG/ML Normal < 0.10 24 Liver Profile 02/18/2020 [facility] (I nterface) [phone] Ast/Sgot 14 U/L Normal 7-37 Alt/SGPT 14 U/L Normal 12-78 Alkaline Phosphatase 150 U/L High 45-117 Bilirubin,Total 0.4 mg/dL Normal 0.2-1.0 Bilirubin,Direct 0.1 mg/dL Normal 0.0-0.2 Total Protein 7.1 GM/DL Normal 6.4-8.2 Albumin 3.1 GM/DL Low 3.2-5.2 Albumin/Globulin Ratio 0.8 Low 1.2-2.2 Laboratory test finding 02/18/2020 [facility] (Interface) [phone] Lipase 139 U/L Normal 73-393 25 CMP 01/30/2020 [facility] Glu 101 mg/dL 70 - 110 BUN 11 mg/dL 8 - 23 Creat 0.8 mg/dL 0.5 - 1.0 BUN/Creatinine Ratio 14.0 CALC Na 140 mmol/L 136 - 145 K 3.6 mmol/L 3.5 - 5.1 CL 101.0 mmol/L 98.0 - 107.0 Co2 28.7 mmol/L 22.0 - 29.0 CA 10.2 mg/dL 8.6 - 10.2 TP 6.7 g/dL 6.6 - 8.7 Alb 3.9 g/dL 3.4 - 4.8 A/G Ratio 1.4 CALC Globulin 2.8 CALC Alp 179.6 U/L High 35 - 129 Alt (SGPT) 13 U/L 0 - 41 Ast (Sgot) 16 U/L 0 - 40 Tbili 0.58 mg/dL 0.0 - 1.2 Osmolality-Calculated 278.2 CALC Anion Gap 13 mmol/L eGFR 85 # Calc 26 eGFR Non-Afr. Filipino 73 # Calc 27 CBC 01/30/2020 [facility] WBC 9.2 10E3/uL 4.1 - 10.9 RBC 4.36 10E6/uL 4.20 - 6.30 HGB 12.8 g/dL 12.0 - 18.0 HCT 39.4 % 37.0 - 51.0 MCV 90.4 fL 80.0 - 97.0 MCH 29.4 pg 26.0 - 32.0 MCHC 32.5 g/dL 31.0 - 36.0 PLT 251 10E3/uL 140 - 440 RDW-CV 13.6 % 11.5 - 14.5 Lym% 16.4 % 10.0 - 58.5 Neut% 69.5 % 37.0 - 92.0 MXD% 14.1 % 0.1 - 24.0 Lym# 1.5 10E3/uL 0.6 - 4.1 Neut# 6.4 % 2.0 - 7.8 MXD# 1.3 10E3/uL 0.0 - 1.8 MPV 10.0 fL 9.0 - 13.0 Laboratory test finding 01/30/2020 [facility]Inhouse T4, Free 2.04 ng/dL High 0.75 - 1.54 TSH < 0.030 ulU/mL Low 0.60 - 4.8 28 1 Negative results do not prec lude influenza or RSV virus infection and should not be used as the sole basis for treatment or other patient management decisions. 2 Negative results do not prec lude influenza or RSV virus infection and should not be used as the sole basis for treatment or other patient management decisions. 3 Negative results do not prec lude influenza or RSV virus infection and should not be used as the sole basis for treatment or other patient management decisions. 4 A false negative result may occur if a specimen is improperly collected, transported or handled. False negative results may also occur if inadequate numbers of organisms are present in the specimen. As with any molecular test, mutations within the target regions of X[employer] Xpress SARS-CoV-2 could affect primer and/or probe binding resulting in failure to detect the presence of virus. This test cannot rule out diseases caused by other bacterial or viral pathogens. DISCLAIMER: Testing was performed using the [employer] SARS-CoV-2 test. This test was developed and its performance characteristics determined by [employer]. This test has not been FDA cleared or approved. This test has been authorized by FDA under an Emergency Use Authorization (EUA). This test is only authorized for the duration of time the declaration that circumstances exist justifying the authorization of the emergency use of in vitro diagnostic tests for detection of SARS-CoV-2 virus and/or diagnosis of COVID-19 infection under section 564(b)(1) of the Act, 21 U.S.C. 360bbb-3(b)(1), unless the authorization is terminated or revoked sooner. 5 THERAPUTIC HUMAN INR VALUES INDICATIONS NORMAL RANGES PROPHYLAXIS/TREATMENT OF: VENOUS THROMBOSIS 2.0-3.0 PULMONARY EMBOLISM 2.0-3.0 PREVENTION OF SYSTEMIC EMBOLISM FROM: TISSUE HEART VALVES 2.0-3.0 ACUTE MYOCARDIAL INFARCTION 2.0-3.0 VALVULAR HEART DISEASE 2.0-3.0 ATRIAL FIBRILLATION 2.0-3.0 MECHANICAL VALVES(HIGH RISK) 2.5-3.5 RECURRENT MYOCARDIAL INFARCTION 2.5-3.5 6 note:<nlbl:[facility] ed> Y/N query for Sepsis Lactate Rule: Y 7 DIAGNOSIS CRITERIA MMB ng/ml Relative Index (RI) NON-AMI < or = 5 N/A AQUINO ZONE > 5 < or = 4 AMI > 5 > 4 8 Troponin I Reference Interva l for Siemens [place] LOCI: 99th Percentile= 0.00-0.045 ng/ml Risk Stratification: <= 0.10 ng/ml Decreased Risk for Adverse Clinical Events. 0.10-1.50 ng/ml Increased Risk for Adv erse Clinical Events. Evaluation of additional criterion and/or repeat testing in 2-6 hours is suggested to rule out myocardial damage. >= 1.50 ng/ml Indicative of Myocardial Injury. 9 Units are mL/min/1.73 m2 Chronic Kidney Disease Staging per NKF: Stage I & II GFR >=60 Normal to Mildly Decreased Stage III GFR 30-59 Moderately Decreased Stage IV GFR 15-29 Severely Decreased Stage V GFR <15 Very Little GFR Left ESRD GFR <15 on CANCER PROGRAM DIRECTOR 10 note:<nlbl:nu_chang ed> 11 NORMAL RANGES Age WBC RBC HGB HCT MCV PLT Adult M 4.1-10.9 4.20-6.30 12.0-18.0 37.0-51.0 80-97 140-440 Adult F 4.1-10.9 4.04-5.48 12.0-18.0 37.0-51.0 80-97 140-440 0 -1 Yr 5.0-20.0 3.9-5.9 15-18 MV: 44 MV: 91 MV: 277 2-9 Yr. 6.0-17.0 3.8-5.4 11-13 MV: 37 MV: 78 MV: 300 10 Yrs. 5.0-13.0 3.8-5.4 12-15 MV: 39 MV: 80 MV: 250 NOTE: * FOR ADULT BLACK MALES AND FEMALES, NORMAL WBC IS 2.9-7.7 K/ML * FOR ADULT BLACK MALES AND FEMALES, NORMAL RBC,HGB, AND HCT IS 5% LESS SOURCE FOR DATA: [employer]iplex 1800 OPERATION MANUAL( AUTOMATED BLOOD COUNTS AND DIFF.) APPENDIX B-3 CHRONIC KIDNEY DISEASE STAGING PER NKF: MALE GFR INTERPRETATION: 20-49 YRS: >60 mL/min Normal 50-59 YRS: >56 mL/min Normal 60-69 YRS: >49 mL/min Normal 70-79 YRS: >42 mL/min Normal 80 and above >35 mL/min Normal FEMALE GRF INTERPRETATION: 20-39 YRS: >60 mL/min Normal 40-49 YRS: >58 mL/min Normal 50-59 YRS: >51 mL/min Normal 60-69 YRS: >45 mL/min Normal 70-79 YRS: >39 mL/min Normal 80 and above >32 mL/min Normal 12 CKD-EPI 13 CKD-EPI 14 THERAPUTIC HUMAN INR VALUES INDICATIONS NORMAL RANGES PROPHYLAXIS/TREATMENT OF: VENOUS THROMBOSIS 2.0-3.0 PULMONARY EMBOLISM 2.0-3.0 PREVENTION OF SYSTEMIC EMBOLISM FROM: TISSUE HEART VALVES 2.0-3.0 ACUTE MYOCARDIAL INFARCTION 2.0-3.0 VALVULAR HEART DISEASE 2.0-3.0 ATRIAL FIBRILLATION 2.0-3.0 MECHANICAL VALVES(HIGH RISK) 2.5-3.5 RECURRENT MYOCARDIAL INFARCTION 2.5-3.5 15 THERAPUTIC HUMAN INR VALUES INDICATIONS NORMAL RANGES PROPHYLAXIS/TREATMENT OF: VENOUS THROMBOSIS 2.0-3.0 PULMONARY EMBOLISM 2.0-3.0 PREVENTION OF SYSTEMIC EMBOLISM FROM: TISSUE HEART VALVES 2.0-3.0 ACUTE MYOCARDIAL INFARCTION 2.0-3.0 VALVULAR HEART DISEASE 2.0-3.0 ATRIAL FIBRILLATION 2.0-3.0 MECHANICAL VALVES(HIGH RISK) 2.5-3.5 RECURRENT MYOCARDIAL INFARCTION 2.5-3.5 16 Units are mL/min/1.73 m2 Chronic Kidney Disease Staging per NKF: Stage I & II GFR >=60 Normal to Mildly Decreased Stage III GFR 30-59 Moderately Decreased Stage IV GFR 15-29 Severely Decreased Stage V GFR <15 Very Little GFR Left ESRD GFR <15 on CANCER PROGRAM DIRECTOR 17 CKD-EPI 18 CKD-EPI 19 THERAPUTIC HUMAN INR VALUES INDICATIONS NORMAL RANGES PROPHYLAXIS/TREATMENT OF: VENOUS THROMBOSIS 2.0-3.0 PULMONARY EMBOLISM 2.0-3.0 PREVENTION OF SYSTEMIC EMBOLISM FROM: TISSUE HEART VALVES 2.0-3.0 ACUTE MYOCARDIAL INFARCTION 2.0-3.0 VALVULAR HEART DISEASE 2.0-3.0 ATRIAL FIBRILLATION 2.0-3.0 MECHANICAL VALVES(HIGH RISK) 2.5-3.5 RECURRENT MYOCARDIAL INFARCTION 2.5-3.5 20 DIAGNOSIS CRITERIA MMB ng/ml Relative Index (RI) NON-AMI < or = 5 N/A AQUINO ZONE > 5 < or = 4 AMI > 5 > 4 21 Troponin I Reference Interva l for [place] LOCI: 99th Percentile= 0.00-0.045 ng/ml Risk Stratification: <= 0.10 ng/ml Decreased Risk for Adverse Clinical Events. 0.10-1.50 ng/ml Increased Risk for Adv erse Clinical Events. Evaluation of additional criterion and/or repeat testing in 2-6 hours is suggested to rule out myocardial damage. >= 1.50 ng/ml Indicative of Myocardial Injury. 22 note:<nlbl:[facility] ed> Y/N query for Sepsis Lactate Rule: Y 23 DIAGNOSIS CRITERIA MMB ng/ml Relative Index (RI) NON-AMI < or = 5 N/A AQUINO ZONE > 5 < or = 4 AMI > 5 > 4 24 Troponin I Reference Interva l for Siemens [place] LOCI: 99th Percentile= 0.00-0.045 ng/ml Risk Stratification: <= 0.10 ng/ml Decreased Risk for Adverse Clinical Events. 0.10-1.50 ng/ml Increased Risk for Adv erse Clinical Events. Evaluation of additional criterion and/or repeat testing in 2-6 hours is suggested to rule out myocardial damage. >= 1.50 ng/ml Indicative of Myocardial Injury. 25 note:<nlbl:[facility] ed> 26 CKD-EPI 27 CKD-EPI 28 Below the Measuring Range Procedures Date Code Description Status 04/15/2020 45840 Capillary Blood Collection Finge r, Heel, Ear Stick Completed 03/10/2020 [id number] Capillary Blood Collection Finge r, Heel, Ear Stick Completed 03/03/2020 48012 Capillary Blood Collection Finge r, Heel, Ear Stick Completed 02/29/2020 04231 Capillary Blood Collection Finge r, Heel, Ear Stick Completed 03/10/2016 [id number] Mammogram Completed Medical Devices Description No Information Available Encounters Type Date Location Provider Dx Diagnosis Office Visit 05/19/2020 11:30a [facility] Roshan Long M. D. 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 D. K75.0 Abscess of liver I82.401 Acute embolism and thombos u nsp deep veins of r low extrem E78.5 Hyperlipidemia, unspecified Office Visit 04/29/2020 1:15p [facility] Roshan Long M. D. K81.0 Acute cholecystitis K75.0 Abscess of liver I81 Portal vein thrombosis R60.9 Edema, unspecified Office Visit 04/15/2020 2:45p [facility] Roshan Long M. D. K81.0 Acute cholecystitis K75.0 Abscess of liver I81 Portal vein thrombosis I26.99 Other pulmonary embolism wit hout acute cor pulmonale Office Visit 03/17/2020 2:30p [facility] Roshan Long M. D. I26.99 Other pulmonary embolism without acute cor pulmonale K81.0 Acute cholecystitis Office Visit 02/27/2020 10:40a [facility] Roshan Long M. D. I26.99 Other pulmonary embolism without acute cor pulmonale K81.0 Acute cholecystitis Office Visit 01/30/2020 1:15p [facility] Roshan Long M. D. R63.5 Abnormal weight gain E05.[address] diffuse [address] w/o thyrotoxic crisis F33.0 Major depressive disorder, r ecurrent, mild D64.9 Anemia, unspecified Z23 Encounter for immunization Assessments Date Code Description Provider 05/19/2020 C25.7 Malignant neoplasm of other part s of pancreas Roshan Long M.D. 05/05/2020 K75.0 Abscess of liver Roshan Long M.D. 05/05/2020 I82.401 Acute embolism and t hrombosis of unspecified deep veins of right lower extremity Roshan Long M.D. 05/05/2020 E78.5 Hyperlipidemia, unspecified [facility] hel[facility] castano M.D. 04/29/2020 K81.0 Acute cholecystitis Luke Long M.D. 04/29/2020 K75.0 Abscess of liver Roshan Long M.D. 04/29/2020 I81 Portal vein thrombosis Roshan Long M.D. 04/29/2020 R60.9 Edema, unspecified Sourav Long M.D. 04/15/2020 K81.0 Acute cholecystitis Luke Long M.D. 04/15/2020 K75.0 Abscess of liver Roshan Long M.D. 04/15/2020 I81 Portal vein thrombosis Roshan Long M.D. 04/15/2020 I26.99 Other pulmonary embolism without acute cor pulmonale Roshan Long M.D. 03/17/2020 I26.99 Other pulmonary embolism without acute cor pulmonale Roshan Long M.D. 03/17/2020 K81.0 Acute cholecystitis Luke Long M.D. 03/17/2020 I26.99 Other pulmonary embolism without acute cor pulmonale [facility] Schedule 03/10/2020 I26.99 Other pulmonary embolism without acute cor pulmonale Roshan Long M.D. 03/10/2020 I26.99 Other pulmonary embolism without acute cor pulmonale [facility] Schedule 03/10/2020 Z79.01 correction (current) use of antic Roshan Boles M.D. 03/03/2020 I26.99 Other pulmonary embolism without acute cor pulmonale Roshan Long M.D. 03/03/2020 I26.99 Other pulmonary embolism without acute cor pulmonale [facility] Schedule 03/03/2020 Z79.01 correction (current) use of antic Roshan Boles M.D. 02/29/2020 I26.99 Other pulmonary embolism without acute cor pulmonale Roshan Long M.D. 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 02/27/2020 I26.99 Other pulmonary embolism without acute cor pulmonale Roshan Long M.D. 02/27/2020 K81.0 Acute cholecystitis Luke Long M.D. 01/30/2020 R63.5 Abnormal weight gain Grazyna Long M.D. 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 01/30/2020 F33.0 Major depressive disorder, recur rent, mild Roshan Long M.D. 01/30/2020 D64.9 Anemia, unspecified Luke Long M.D. 01/30/2020 Z23 Encounter for immunization Roshan Benitez M.D. Plan of Treatment Future Appointment(s):* 05/26/2020 11:30 am - Roshan Long M.D. at [facility] Functional Status Description No Information Available Mental Status Description No Information Available Referrals Refer to Reason for Referral Status Appt Date [facility] Oncology & Hematology priority referralmaligna ncy in liver, elevated CA19-9, recurrent thrombotic events despite Coumadin- eval and rx Sent [address] [facility] [address] [place] [address] [facility] Oncology & Hematology recurrent thrombosis despite therapeutic INR- eval and rx Sent 06/09/[address] [place] [address] [address] [place] [address] Andrés Araujo M.D. cholecystitis, recent PE- eval and rx Sent 03/12/2020 [address] [facility] [address] [place] [address] [phone] Elliot Gomes M.D. r/o Graves ophthalmopathy Sent [id number] [facility] [address] [place] [address] [phone]
--- OUTSIDE RECORDS SUMMARY | 2020-06-18 15:41 | CCD | Summary of Care ---
Author Author [facility] Address Unknown Phone Unavailable Care Team Providers Care Tugger Operator Name Role Phone Roshan Long MD PCP Reason for Visit * Reason Comments Abdominal Pain * Auth/Cert Referred By Contact Referred To Contact Status Reason Specialty Diagnoses / Procedures Diagnoses Hepatic abscess L iver abscess, sepsis Hepatic abscess Hepatic abscess Encounter Details Care Team Description Date Type Department Sena Bar MD [address] [facility] Room [address] [place] [address] [phone] Leif Bermudez MD [address] [facility] Room [address] [place] [address] Simone Meadows MD [address] [facility] 3rd [place] [address] Hepatic abscess (Primary Dx) 05/10/2020 Hospital 06B GENERAL MEDICIN [facility] - Encounter [address] [facility] 05/17/2020 [place] [address] Allergies No Known Allergiesdocumented as of this encounter (statuses as of 05/17/2020) Medications End Date Status Medication Sig Dispensed [...] Tablet by mouth (SYNTHROID) Daily 06/16/2020 Active Acetaminophen 325 MG Oral Take 3 30 tablet 0 Tablet tablets by 0 mouth every 8 (eight) hours 06/16/2020 Active Calcium Carbonate Antacid Chew 1 tablet 60 tablet 0 500 MG Oral Tablet by Mouth Two 0 Chewable (TUMS) times daily as needed 05/27/2020 Active Docusate Sodium 50 MG/5ML Take 10 mLs 100 mL 0 Oral Liquid (COLACE) by mouth Two 0 Times Daily for 10 days 05/16/2021 Active guaiFENesin ER 600 MG Take 1 tablet 60 tablet 11 Oral Tablet Extended by mouth Two 0 Release 12 Hour (MUCINEX) Times Daily 06/17/2020 Active Lidocaine 5 % External Place 2 30 patch 0 Patch (LIDODERM) patches onto 0 the skin daily 12 hours on 12 hours off 05/27/2020 Active Methocarbamol 500 MG Oral Take 1 tablet 40 tablet 0 Tablet (ROBAXIN) by mouth Four 0 times daily for 10 days 05/31/2020 Active oxyCODONE HCl ER 20 MG Take 1 tablet 28 tablet 0 1 Oral Tablet ER 12 Hour by mouth 0 Abuse-Deterrent every 12 (OXYCONTIN) (twelve) hours , Max Daily Dose: 40 mg 05/21/2020 Active Polyethylene Glycol 3350 Take 1 packet 14 each 0 17 GM Oral Packet by mouth 0 (MIRALAX) daily for 3 daysPlease substitute bottle for packets, if packets are unavailable. 05/27/2020 Active Simethicone 80 MG Oral Chew 1 tablet 30 tablet 0 1 Tablet Chewable (MYLICON) by Mouth 0 every 6 (six) hours as needed for Flatulence for up to 10 days 05/24/2020 Active Ondansetron HCl 4 MG Oral Take 1 tablet 20 tablet 0 Tablet (ZOFRAN) by mouth 0 every 8 (eight) hours as needed for Nausea for up to 7 days 05/17/2020 Discontinued (Stop Taking at Discharge) traMADol HCl 50 MG Oral Take 50 mg by 0 Tablet (ULTRAM) mouth every 6 (six) hours as needed for Pain 05/17/2020 Discontinued (Stop Taking at Discharge) Warfarin Sodium 2 MG Oral Take 2 mg by 0 Tablet (COUMADIN) mouth daily 05/17/2020 Discontinued (Stop Taking at Discharge) Torsemide 10 MG Oral Take 10 mg by 0 Tablet (DEMADEX) mouth daily documented as of this encounter (statuses as of 05/17/2020) Active Problems Problem Noted Date Hepatic abscess 05/10/2020 Current use of snf anticoagulation 05/10/2020 Ulcerative colitis 05/10/2020 documented as of this encounter (statuses as of 05/17/2020) Social History Date Tobacco Use Types Packs/Day Years Used Never Assessed Sex Assigned at Date Recorded Not on file Date Recorded COVID-19 Exposure Response 05/10/2020 1:26 AM EST In the last month, have you been in contact with No / Unsure someone who was confirmed or suspected to have Coronavirus / COVID-19? documented as of this encounter Last Filed Vital Signs Reading Time Taken Comments Vital Sign 104/68 05/17/2020 4:30 PM EST Blood Pressure 68 05/17/2020 4:30 PM EST Pulse 37 C (98.6 F) 05/17/2020 4:30 PM EST Temperature 18 05/17/2020 4:30 PM EST Respiratory Rate 99% 05/17/2020 4:30 PM EST Oxygen Saturation - - Inhaled Oxygen Concentration 61.8 kg (136 lb 3.2 oz) 05/10/2020 6:00 AM EST Weight 147.3 cm (4' 9.99") 05/10/2020 6:00 AM EST Height 28.47 05/10/2020 6:00 AM EST Body Mass Index documented in this encounter Discharge Summaries * Nicolle-Fransisco Mcginnis MD - 05/17/2020 10:00 AM EST Discharge Summary Patient aCrter Vega Admit Date 05/10/2020 1945 Discharge Date 05/17/2020 PCP Roshan Long MD Discharge Physician Simone Meadows MD Primary Discharge Diagnosis: Hepatic collection/mass Secondary Discharge Diagnosis: Hepatic abscess Current use of snf anticoagulation Ulcerative colitis History & Hospital Course Reason for Admission: Hepatic collection/mass Brief history and Hospital Course: Ms. Vega is a 74-year-old female with a medical history significant for ulcer ative colitis, episode of perforated diverticulitis status post Sanchez's proced ure in 2006, incisional hernia repair in 2009, A. fib and DVT currently maintain ed on Lovenox 80 mg daily. Patient was transferred from [facility] for hepatobiliary surgery evaluation due to persistent liver collection. The collec tion was presumed to be an abscess, however, despite attempts at drainage twice, the collection persisted and there was minimal amount of output from the drains. Review of imaging showed a 10 cm fluid collection in the liver. Patient arrived to [facility] ED on 05/10/2020 and was admitted under the care of the hepatobiliary service. She was started on broad-spectrum antibiotics, Zosyn, and was kept n.p.o. She was also receiving pain management with oxycodone and Tylenol. On 05/12/2020, patient had an attempt at drainage of the collection by IR, however, minimal amount of serosanguineous fluid was obtained. Core needle biopsy of the lesion reveals necrotic tissue with debris suspicious for tumor. No viable ce lls or tissue were present. Since the liver lesion was more consistent with a m ass rather than an abscess, Zosyn was stopped and patient was started on Augment in. In addition, tumor markers including CA 19-9 was elevated at 9179 and CEA w as 33.7. Repeat core needle liver biopsy was done on 05/15/2020 in an attempt t o get more tissue and establish diagnosis. Pathology results are still pending. Cultures grew strep epidermidis, but there is no concern for active infection and the presence of the bacteria is thought to be due to colonization. Palliati ve care and hematology oncology services were consulted in anticipation of diagn osis of malignancy. Palliative care recommended adding OxyContin twice daily to pain regimen. Oncology service recommended further work-up for staging purpose including CT of the abdomen and pelvis with liver protocol, CT of the chest, MRI brain, and bone scan. Please find reports of the scan as mentioned below. Domo martinez is not noting the multiple nodular appearance is found on MR brain which a re concerning for metastasis. This patient's case will be discussed in the [facility] id[facility] conference there will include the surgical oncology an d medical oncology team. Patient is set to follow-up with the oncologist after discharge. Management plan will be determined on an outpatient basis. Consults: Heme/Onc, Palliative Care, Interventional Radiology Relevant studies done during this hospitalization: Laboratory Data (Most Recent in Past 3 Days) Lab 05/15/2045805/16/2045805/17/20344 WBC 14.7* 13.0* 11.7* HGB 10.0* 10.0* 10.5* MCV 78.9* 79.8* 79.4* PLT 259 258 318 Invalid input(s): BILDIR Lab 05/15/2045805/16/2045805/17/20344 NA 134* 137 136 K 4.3 4.8 4.5 CL 106 106 104 BICARBONATE GLUCOSE 98 99 90 BUN 9 12 10 CREATININE 0.68 0.78 0.78 Lab 05/15/20458 INR 1.25 PHYSICAL EXAM: Gen: A&O x3 Resp: breathing comfortably on RA CV: RRR on monitor GI: Soft, nontender, nondistended, no rebound or guarding. Ext: warm, well perfused Discharge Medications Discharge Medications: START taking these medications acetaminophen (TYLENOL) tablet 325 MG tablet Take 3 tablets by mouth every 8 (eight) hours calcium carbonate 500 MG chewable tablet Commonly known as: TUMS Chew 1 tablet by Mouth Two times daily as needed docusate 50 MG/5ML liquid Commonly known as: COLACE Take 10 mLs by mouth Two Times Daily for 10 days guaifenesin 600 MG 12 hr tablet Commonly known as: MUCINEX Take 1 tablet by mouth Two Times Daily lidocaine 5 % patch Commonly known as: LIDODERM Place 2 patches onto the skin daily 12 hours on 12 hours off Start taking on: May 18, 2020 methocarbamol 500 MG tablet Commonly known as: ROBAXIN Take 1 tablet by mouth Four times daily for 10 days ondansetron 4 MG tablet Commonly known as: ZOFRAN Take 1 tablet by mouth every 8 (eight) hours as needed for Nausea for up to 7 d ays oxyCODONE HCl ER 20 MG T12a 12 hr tablet Commonly known as: OXYCONTIN Take 1 tablet by mouth every 12 (twelve) hours , Max Daily Dose: 40 mg polyethylene glycol 17 g packet Commonly known as: MIRALAX Take 1 packet by mouth daily for 3 daysPlease substitute bottle for packets, if packets are unavailable. Start taking on: May 18, 2020 simethicone 80 MG chewable tablet Commonly known as: MYLICON Chew 1 tablet by Mouth every 6 (six) hours as needed for Flatulence for up to 1 0 days CONTINUE taking these medications enoxaparin sodium 80 MG/0.8ML injection Commonly known as: LOVENOX fluoxetine 20 MG capsule Commonly known as: PROZAC levothyroxine 125 MCG tablet Commonly known as: SYNTHROID potassium chloride SA 10 MEQ tablet Commonly known as: K-DUR sulfaSALAzine 500 MG tablet Commonly known as: AZULFIDINE STOP taking these medications torsemide 10 MG tablet Commonly known as: DEMADEX tramadol 50 MG tablet Commonly known as: ULTRAM warfarin 2 MG tablet Commonly known as: COUMADIN Allergies:Patient has no known allergies. Medications Discontinued: Stop taking torsemide, tramadol, warfarin. Medications Added or Modified: Oxycontin, Oxycodone. Stay on Lovenox and sulfa salazine. Medications, including new medication and medication changes, were discussed wit h patient and/or family prior to discharge. Follow Up Appointments & Patient Instructions No future appointments. Patient to call primary care office upon discharge to schedule hospital follow u p appointment. Discharge planning was discussed with the patient and/or family. Please see disc harge instructions provided to the patient OR After-Visit summary on file for ad ditional information. To follow-up with Dr. Aicha Bush Will [facility]ucss [facility] Discharge Recommendations & Disposition Communication/Instructions to the PCP: No Pending labs/ tests done in hospital and still need to be followed up after disc harge: None Referrals: Oncology Follow-up with Dr. Aicha Bush. Coordinator Ksenia will arrange follow-up Disposition: The patient was hemodynamically stable at the time of discharge. Discharge to: [facility] Diet: low fat, low cholesterol diet Activity: activity as tolerated Code Status: Full Code Condition Upon Discharge: Cognitive: Alert and oriented Functional: Independent The patient was discussed with Simone Meadows MD who agrees with the assessment a nd plan as noted above. Signature:Nicolle-Fransisco Mcginnis MD Date/Time: May 17, 2020 5:42 PM Associated attestation - Simone Meadows MD - 05/17/2020 6:43 PM EST I directly interviewed the patient, performed rodriguez portions of the examination, p ersonally reviewed pertinent ancillary data/imaging and corresponding radiology reports, and supervised the rodriguez medical decision-making/plan of care. I agree wi th the assessment, meds, and plan proposed by resident, unless mentioned in this attending note. Time spent on coordination of discharge 35 minutes documented in this encounter Discharge Instructions * Appointments* Rema Barbour - 05/12/2020 9:44 AM EST Patient to call primary care office upon discharge to schedule hospital follow u p appointment. * Additional Instructions* Fransisco Hunt MD - 05/12/2020 12:45 PM EST Please take medications including pain and nausea medications as instructed in m edication list. Please maintain a low fat/low cholesterol diet. Follow-up with oncologists Dr. Aicha Bush. We will arrange follow-up with co ordinator. Contact for [phone] more information on schedule. documented in this encounter Progress Notes * Alin Dwyer RN - 05/17/2020 6:31 PM EST Pt discharged home. Discharge paperwork and education read and reviewed, pt verb alized understanding, see AVS for details. All belongings gathered. Pt wheeled to front [facility] [place] w/staff assist. E ST * Johny Mayer RN - 05/17/2020 1:21 AM EST Pt refusing midnight vitals at this time, pt is on continuous pulse oximeter whi ch shows their SPO2 at 98% on 3 L nasal cannula, will attempt to obtain vitals a t 0400. * Fransisco Hunt MD - 05/16/2020 2:09 PM EST Surgery Progress Note Hospital Day #: 6 Post Operative Day #: Procedure: INTERVAL PRESENT HISTORY: Patient is still in severe abdominal pain although better since Oxycontin BID wa s added on 05/14, it is still significant. Patient denies fever, chills, chest pain, shortness of breath. IR guided attempt at draining collection was done on 05/12. Aspiration yielded little amount of serosanguinous fluid and pathology re vealed necrotic tissue. IR guided biopsy was repeated on 05/15 with 3 cores were obtained. Cultures grew strep epiderdemis. Patient is maintained on Augmentin. As per Heme/Onc recommendation patient had CT AP for staging. MRI brain and bone scan. VITAL SIGNS: Vitals: 05/16/20 0310 05/16/20 0330 05/16/20 0759 05/16/20 1235 BP: 157/90 122/57 110/72 124/82 BP Location: Left arm Right arm Left arm Left arm Patient Position: Sitting Pulse: (!) 150 78 73 79 Resp: (!) 22 18 18 18 Temp: 36.9 C (98.4 F) 36.9 C (98.4 F) 36.8 C (98.2 F) 36 .8 C (98.2 F) TempSrc: Oral Oral Oral Oral SpO2: 91% 99% 99% 99% Weight: Height: INTAKE/OUTPUT (last 3 shifts): I/O last 3 completed shifts: In: 300 [P.O.:300] Out: - PHYSICAL EXAM: Gen: A&O x3 Resp: breathing comfortably on RA CV: RRR on monitor GI: Soft, nontender, nondistended, no rebound or guarding. Ext: warm, well perfused LABS: Recent Labs Lab 05/14/200 05/15/2045805/16/20458 WBC 15.8* 14.7* 13.0* HGB 10.1* 10.0* 10.0* HCT 31.8* 31.4* 31.6* PLT 241 259 258 NEUTOPHILPCT 74 69 69 Recent Labs Lab 05/14/20 0410 05/15/2045805/16/20 045 NA 133* 134* 137 K 4.4 4.3 4.8 CL 104 106 106 BICARBONATE * 24 BUN 10 9 12 CREATININE 0.72 0.68 0.78 GLUCOSE 103 98 99 CALCIUM 9.4 8.8 9.6 MG 1.9 1.9 2.3 PHOS 2.3* 2.8 3.2 Recent Labs Lab 05/10/20 0248 05/15/20 045 INR 1.16 1.25 IMAGING: Xr Chest Frontal Only Result Date: 05/13/2020 IMPRESSION: Stable elevation of the right hemidiaphragm with associated right jeanette ng volume loss. Ir Imaging Guided Needle, Drain Procedure Result Date: 05/15/2020 IMPRESSION: Successful and uncomplicated ultrasound guided liver mass biopsy. 1- 2 mL of likely necrotic material was also aspirated and sent for cultures/cytolo gy. The pathology lab results are pending. The findings were discussed with Dr Fior Meadows, right after the procedure. Ir Imaging Guided Needle, Drain Procedure Result Date: 05/15/2020 IMPRESSION: Successful and uncomplicated ultrasound guided liver mass biopsy. No obvious collection was seen for drain placement, tiny amount of aspirated fluid was sent for the lab. Pending Read for CT AP and Thorax MICROBIOLOGY: MEDICATIONS: Scheduled Meds: acetaminophen (TYLENOL) tablet 975 mg Oral Q8H amoxicillin-clavulanate 1 tablet Oral 2 times per day docusate 100 mg Oral BID enoxaparin sodium 90 mg Subcutaneous Daily fluoxetine 20 mg Oral Daily guaifenesin 600 mg Oral BID levothyroxine 125 mcg Oral Daily lidocaine 2 patch Transdermal Daily methocarbamol 500 mg Oral 4x Daily oxyCODONE HCl ER 20 mg Oral 2 times per day polyethylene glycol 17 g Oral Daily potassium chloride 20 mEq Oral BID sulfaSALAzine 500 mg Oral 4x Daily torsemide 10 mg Oral Daily Continuous Infusions: PRN Meds:.iohexol, ondansetron, simethicone Assessment: Carter Vega is a 74 y.o. female with myriad medical problems who presents as a transfer from [facility] for hepatobiliary evaluation of persistent liver absc ess. Patient IR guided attempt at drain placement which failed due to no adequat e fluid aspiration. Initial pathology was not final since obtained tissue was ne crotic. Patient had IR guided biopsy again on 05/15 with 3 cores obtained. Patie nt is getting CT AP, chest, and MRI brain as well as bone scan for staging. Kamilah ent grew strep epidermidis from biopsy specimen. She is on Augmentin Principal Problem: Hepatic abscess Active Problems: Current use of snf anticoagulation Ulcerative colitis Plan: Neuro: - Pain: PRN oxycodone, Oxycontin 20 BID, tylenol, lidocaine patch, robaxin. Pain is partially controlled on current regimen CVS: - HDS stable Pulm: - Breathing comfortably, saturating well on RA GI/FEN: - Diet Adult; Modified; Fat/Cholesterol; Low Sat Fat/Low Chol (<200mg). - bowel regimen: docusate - Liver collection/mass: aspiration on 05/12 did not yield drainage. Biopsy prince led necrotic tissue. Repeat biopsy on 05/15 was done today. 3 cores were obtaine d. - Pending pathology results - CEA 33.7. AFP 1. [id number] 9179 - concern for malignancy of biliary tree origin - Minimal nausea: Zofran PRN -Abdominal gas: will add simethicone /Renal: - Stable creatine. UO 1675cc/24 hours - Repleting electrolyes daily Heme: - Hx of DVT and PE: on therapeutic lovenox (lovenox 90 mg daily) since 07/16 Endo: - Normal glucose levels. Not on antidiabetics or insulin scale ID: - On amoxicillin - Low suspicion for abscess' - Biopsy Specimen culture showed strep epidermidis. Possibly colonization from prior procedure Oncology - Awaiting biopsy results. Concern for GI malignancy with high suspicion for ch olangiocarcinoma - Pending workup, CT abdomen/pelvis, CT chest (pending read) and pending MR bra in and bone scan for complete staging DISPOSITION: Acute, pending workup-up of lesion Fransisco Hunt MD PGY-1 | Department of Surgery 05/16/2020 2:09 PM Associated attestation - Simone Meadows MD - 05/17/2020 11:44 AM EST I directly interviewed the patient, performed rodriguez portions of the examination, p ersonally reviewed pertinent ancillary data/imaging and corresponding radiology reports, and supervised the rodriguez medical decision-making/plan of care. I agree wi th the assessment, meds, and plan proposed by resident, unless mentioned in this attending note. We will obtain staging studies per the request of the oncology team. Patient wan ts to seek oncology care at [facility]. If confirmed to be intrahepatic cholangioc arcinoma then she is not a candidate for surgery given multifocal disease and he r overall extent of disease in the liver. Patient has pulmonary emboli which she was already on anticoagulation for. Ther e is also concern for renal vein thrombus given compression from the gallbladder . Anticoagulation should cover her for renal vein thrombus as well. She is not a candidate for gallbladder surgery given the large extent of her intrahepatic tumor. The CT scans did not show any evidence of pancreatic or upper GI masses. She lucia d colonic surgery for ulcerative colitis. The endoscopic examinations can be do ne in an outpatient fashion. Alternatively a PET/CT can be obtained as outpatie nt to look for any extrahepatic source. She should predominantly follow with medical oncology post discharge. She will also need to see palliative care for chronic pain medications. We will review h er images in our multidisciplinary conference. * Jason Sandy RN - 05/16/2020 4:01 AM EST Pt just had an incident that she took off her O2 and walked to the bathroom and stated that she felt dizzy and could not get up. Assessed pt and put her back on 2L, pt HR 150, R 22, BP 157/90, O2 92 at the time. Bump the oxygen up to 3L and reassessed, HR 78, R 18, BP 122/57, O2 99. And pt ambulated back to bed after. Pt also c/o of nausea but stated that she does not want anything for that. Pt st ated that she is feeling much better and resting on the bed. Notified . Will continue to monitor. * Harjinder Vickers - 05/15/2020 4:30 PM ESTSummary: Oil And Gas Specialist Systems Software Engineer visit for Sacraments Entered by Rev. Harjinder Vickers MDIV, [facility], [place] Systems Software Engineer [employer] Roofer Spiritual Care Progress Note Systems Software Engineer: Father Sarah Alexander, Oil And Gas Specialist Systems Software Engineer Patient Name: Carter Vega Age: 74 y.o. Sex: female Room/Bed: [facility]/1 Leslee Affiliation/Tradition: [employer]ondoism Admit Date: 05/10/2020 Referrals: Referral From: Vale Potter Referral To: Oil And Gas Specialist Clergy Contact Information: Medical Technologist Time of call: 1630 Total time of call: 60 minuts Spiritual Care Assessment Spouse/Significant Other Name/Relationship: No family present during this visit Assessed Need for Visit: Poor Prognosis Patient Description: Calm, Accepting, At Peace Spiritual/Cultural/Social Issues Assessment: At request of Ms Vega, made a p astoral visit. She was awake and responsive and told me of her love for Danny soria d her hope of joining 'family members in critical access hospital.' We prayed together and then kate thompson was anointed with the Sacrament of the Sick in the rites of the [employer]ism Quaker. Spiritual Care remains available as needed/requested for spiritual supp ort throughout this hospitalization. Spiritual Care Intervention: Anointing, Prayer Spiritual Outcomes - Patient: Expressed feelings, [place] comforted, accompanied, [place] heard, valued, affirmed, Identified spiritual strengths Spiritual Outcomes - Family: Not available for assessment Spiritual Care Plan Goals of Care: Explore and identify unmet spiritual needs and provide/coordinate in order to contribute towards sense of peace. Outcome: rapidly improving Spiritual Care Follow Up Patient Follow-up Plan: Routine visit Family Follow-up Plan: No contact made at this time * Karen Luna MD - 05/15/2020 4:20 PM EST Palliative Care Progress Note Subjective: Length of stay: 5 days Interval History: No new complaints. Pain is bearable. Advanced Directives: Full code Objective: Vital signs in last 24 hours: Temp: [36.6 C (97.9 F)-37.1 C (98.7 F)] 36.6 C (97.9 F) Pulse: [76-85] 81 Resp: [14-23] 16 BP: (98-119)/(56-73) 119/65 SpO2: [91 %-100 %] 100 % O2 Therapy: Oxygen O2 Flow Rate (L/min): [2 L/min] 2 L/min Intake/Output last 3 shifts: No intake/output data recorded. Intake/Output this shift: No intake/output data recorded. Physical Exam General: Lying in bed in no acute distress Data Review Lab Results Component Value Date WBC 14.7 (H) 05/15/2020 HGB 10.0 (L) 05/15/2020 HCT 31.4 (L) 05/15/2020 PLT 259 05/15/2020 ALT 13 05/13/2020 AST 11 05/13/2020 NA 134 (L) 05/15/2020 K 4.3 05/15/2020 CL 106 05/15/2020 CREATININE 0.68 05/15/2020 BUN 9 05/15/2020 TSH 0.173 (L) 05/10/2020 INR 1.25 05/15/2020 Assessment/Plan: João Vega is a 74-year-old female with past medical history of ulcerative col itis, perforated diverticulitis status post Sanchez's procedure in 2006, incisio nal hernia, repair with mesh in 2009, A. fib, DVT, PE and thyroidectomy who pres ented as a transfer from [facility] for hepatobiliary surgery evaluation of a persistent liver abscess/mass. Patient's pain appears to be better controlled today. Palliative will continue to follow for support Discussed with: Patient Time Spent: 15 minutes more than half spent counseling coordinating care. Karen Luna MD * Nicolle-Rahel, Fransisco Penny MD - 05/15/2020 1:13 PM EST Surgery Progress Note Hospital Day #: 5 Post Operative Day #: Procedure: INTERVAL PRESENT HISTORY: Patient is still in severe abdominal pain. Oxycontin BID was added yesterday. Brian munoz denies fever, chills, chest pain, shortness of breath. IR guided attempt a t draining collection was done on 05/12. Aspiration yielded little amount of ser osanguinous fluid and pathology revealed necrotic tissue. IR guided biopsy was r epeated today. 3 cores were obtained. VITAL SIGNS: Vitals: 05/15/20 1045 05/15/20 1050 05/15/20 1055 05/15/20 1100 BP: 116/65 117/56 114/61 119/65 BP Location: Patient Position: Pulse: 85 83 79 81 Resp: (!) 21 (!) 23 14 16 Temp: TempSrc: SpO2: 93% 91% 100% 100% Weight: Height: INTAKE/OUTPUT (last 3 shifts): I/O last 3 completed shifts: In: 360 [P.O.:360] Out: - PHYSICAL EXAM: Gen: A&O x3 Resp: breathing comfortably on RA CV: RRR on monitor GI: Soft, nontender, nondistended, no rebound or guarding. Ext: warm, well perfused LABS: Recent Labs Lab 05/13/20 0250 05/14/20 0410 05/15/20 0459 WBC 14.7* 15.8* 14.7* HGB 11.3* 10.1* 10.0* HCT 35.9* 31.8* 31.4* PLT 288 241 259 NEUTOPHILPCT 76 74 69 Recent Labs Lab 05/13/20 0250 05/14/20 0410 05/15/20 0459 NA 135* 133* 134* K 4.3 4.4 4.3 CL 103 104 106 BICARBONATE * BUN 10 10 9 CREATININE 0.80 0.72 0.68 GLUCOSE 98 103 98 CALCIUM 9.4 9.4 8.8 MG 2.1 1.9 1.9 PHOS 2.0* 2.3* 2.8 Recent Labs Lab 05/10/20 0248 05/15/20458 INR 1.16 1.25 IMAGING: Ultrasound Cholelithiasis. Negative sonographic Prajapati sign. There is a heterogeneous lesion within the right liver lobe measuring approximately 10 centimetres. This could represent patient's known abscess MICROBIOLOGY: Pending blood cultures from 05/10 MEDICATIONS: Scheduled Meds: amoxicillin-clavulanate 1 tablet Oral 2 times per day docusate 100 mg Oral BID [START ON 05/16/2020] enoxaparin 40 mg Subcutaneous Daily fluoxetine 20 mg Oral Daily guaifenesin 600 mg Oral BID levothyroxine 125 mcg Oral Daily lidocaine 2 patch Transdermal Daily methocarbamol 500 mg Oral 4x Daily oxyCODONE HCl ER 20 mg Oral 2 times per day polyethylene glycol 17 g Oral Daily potassium chloride 20 mEq Oral BID potassium phosphate (monobasic) 500 mg Oral 4 x Daily with Meals & Nightly sodium phosphate 6 mmol Intravenous Once sulfaSALAzine 500 mg Oral 4x Daily torsemide 10 mg Oral Daily Continuous Infusions: PRN Meds:.acetaminophen (TYLENOL) tablet, ondansetron, oxyCODONE OR oxyCODON E, simethicone Assessment: Carter Vega is a 74 y.o. female with myriad medical problems who presents as a transfer from [facility] for hepatobiliary evaluation of persistent liver absc ess. Patient IR guided attempt at drain placement which failed due to no adequat e fluid aspiration. Initial pathology was not final since obtained tissue was ne crotic. Patient had IR guided biopsy again on 05/15 with 3 cores obtained. Principal Problem: Hepatic abscess Active Problems: Current use of snf anticoagulation Ulcerative colitis Plan: Neuro: - Pain: PRN oxycodone, Oxycontin 20 BID since yesterday, PRN tylenol. Not comple tely controlled. CVS: - HDS stable Pulm: - Breathing comfortably, saturating well on RA GI/FEN: - Diet Adult; NPO; PO Meds. - bowel regimen: docusate - Liver collection/mass: aspiration did not yield drainage. Biopsy revaled necro tic tissue. Repeat biopsy was done today. 3 cores were obtained. Awaiting r esuls - CEA 33.7. AFP 1. CA19-9 9179 - concern for malignancy of biliary tree origin - Minimal nausea: Zofran PRN -Abdominal gas: will add simethicone /Renal: - Stable creatine. UO 1675cc/24 hours - Repleting electrolyes daily Heme: - DVT ppx: Lovenox 40 mg Daily - Hx of DVT and PE: will determine plan on restarting coumaidn Endo: - Normal glucose levels. Not on antidiabetics or insulin scale ID: - On amoxicillin - Low suspicion for abscess DISPOSITION: Acute, pending workup-up of lesion Fransisco Hunt MD PGY-1 | Department of Surgery 05/15/2020 1:13 PM Associated attestation - Simone Meadows MD - 05/15/2020 2:47 PM EST I directly interviewed the patient, performed rodriguez portions of the examination, p ersonally reviewed pertinent ancillary data/imaging and corresponding radiology reports, and supervised the rodriguez medical decision-making/plan of care. I agree wi th the assessment, meds, and plan proposed by resident, unless mentioned in this attending note. I discussed the pathology with the patient. Although suspicious for tumor the t issue was necrotic. I discussed with interventional radiology who performed a r epeat biopsy. Patient wishes to see a medical oncologist at [facility] and therefo re we will consult her medical oncology team. * Oliver Gómez - 05/14/2020 5:38 PM EST Spiritual Care Progress Note Systems Software Engineer: Vale Rojaslain Patient Name: Carter Vega Age: 74 y.o. Sex: female Room/Bed: 24519/1 Leslee Affiliation/Tradition: Cheondoism Admit Date: 05/10/2020 Referrals: Referral From: Admin [employer] Ro[employer]er Report/Morning Huddle Referral To: Vale Potter Contact Information: Nelly; [phone] Spiritual Care Assessment Spouse/Significant Other Name/Relationship: No family was present in the room at time of visit. Assessed Need for Visit: Adjustment/Coping Issues Patient Description: Calm, Accepting, At Peace Spiritual/Cultural/Social Issues Assessment: Carter spoke of pain in the liver as being controlled by her medicines. She spoke of her sadness over the loss of hus band and daughter in the last ten years, however, Carter did mention the great sup port she receives from her son and his family. She shared how she prays her pray ers at night regularly, but misses not getting to Holy Mass. Carter happily receiv ed Holy Communion and a blessing. I noticed her chart indicates a more negative prognosis, so I'm including a copy of this note as a referral for Anointing of t he Sick. Spiritual Care Intervention: Affirmation, Holy Communion, prayers Spiritual Outcomes - Patient: Defined issues causing spiritual suffering/pain, Expressed feelings, [place] comforted, accompanied, Identified spiritual strengths Spiritual Outcomes - Family: Not available for assessment Spiritual Care Plan Goals of Care: To assess spiritual care needs and hopes and mobilize spiritual r esources for patients/families/caregivers that support/enhance quality of life r elated to hospitalization. Outcome: rapidly worsening Spiritual Care Follow Up Patient Follow-up Plan: Revisit Family Follow-up Plan: No contact made at this time * Oliver Gómez - 05/14/2020 2:40 PM EST Spiritual Care Progress Note Systems Software Engineer: Vale Rojas Patient Name: Carter Vega Age: 74 y.o. Sex: female Room/Bed: 55986/1 Leslee Affiliation/Tradition: [employer]ondoism Admit Date: 05/10/2020 Referrals: Referral From: Admin [employer]er Report/Morning Huddle Referral To: Vale Cailain Contact Information: Nelly; [phone] Spiritual Care Assessment Spouse/Significant Other Name/Relationship: No family was present in the room at time of visit. Assessed Need for Visit: Adjustment/Coping Issues Patient Description: Calm, Accepting, At Peace Spiritual/Cultural/Social Issues Assessment: Carter spoke of pain in the liver as being controlled by her medicines. She spoke of her sadness over the loss of hus band and daughter in the last ten years, however, Carter did mention the great sup port she receives from her son and his family. She shared how she prays her pray ers at night regularly, but misses not getting to Holy Mass. Carter happily receiv ed Holy Communion and a blessing. I noticed her chart indicates a more negative prognosis, so I'm including a copy of this note as a referral for Anointing of t he Sick. Spiritual Care Intervention: Affirmation, Holy Communion, prayers Spiritual Outcomes - Patient: Defined issues causing spiritual suffering/pain, Expressed feelings, [place] comforted, accompanied, Identified spiritual strengths Spiritual Outcomes - Family: Not available for assessment Spiritual Care Plan Goals of Care: To assess spiritual care needs and hopes and mobilize spiritual r esources for patients/families/caregivers that support/enhance quality of life r elated to hospitalization. Outcome: rapidly worsening Spiritual Care Follow Up Patient Follow-up Plan: Revisit Family Follow-up Plan: No contact made at this time * Nicolle-Fransisco Mcginnis MD - 05/14/2020 6:41 AM EST Surgery Progress Note Hospital Day #: 4 Post Operative Day #: Procedure: INTERVAL PRESENT HISTORY: Patient denies fever, chills, chest pain, shortness of breath. Patient has diffu se abdominal pain, non-severe. She mainly complained of abdominal gas. IR guided attempt at draining collection was done on 05/12. Aspiration yielded little denny unt of serosanguinous fluid. Will follow-up surgical pathology results. VITAL SIGNS: Vitals: 05/13/20 1953 05/13/20 2221 05/14/20 0020 05/14/20 0400 BP: 93/53 101/58 111/60 123/76 BP Location: Left arm Left arm Right arm Right arm Patient Position: Lying Lying Lying Lying Pulse: 82 81 79 85 Resp: 18 18 17 17 Temp: 36.7 C (98 F) 37 C (98.6 F) 36.7 C (98.1 F) 36.7 C (98.1 F) TempSrc: Oral Oral Oral Oral SpO2: 98% 94% 96% 94% Weight: Height: INTAKE/OUTPUT (last 3 shifts): I/O last 3 completed shifts: In: 1080.6 [P.O.:720; I.V.:310.6; IV Piggyback:50] Out: 600 [Urine:600] PHYSICAL EXAM: Gen: A&O x3 Resp: breathing comfortably on RA CV: RRR on monitor GI: Soft, nontender, nondistended, no rebound or guarding. Ext: warm, well perfused LABS: Recent Labs Lab 05/12/20 03505/13/20 0250 05/14/20 0410 WBC 13.8* 14.7* 15.8* HGB 10.4* 11.3* 10.1* HCT 33.1* 35.9* 31.8* PLT 304 288 241 NEUTOPHILPCT 72 76 74 Recent Labs Lab 05/12/20 03505/13/20 0250 05/14/20 0410 NA 137 135* 133* K 4.5 4.3 4.4 CL 106 103 104 BICARBONATE 25 24 23 BUN 9 10 10 CREATININE 0.76 0.80 0.72 GLUCOSE 82 98 103 CALCIUM 9.0 9.4 9.4 MG 1.8 2.1 1.9 PHOS 2.5 2.0* 2.3* Recent Labs Lab 05/10/20 0248 INR 1.16 IMAGING: Ultrasound Cholelithiasis. Negative sonographic Prajapati sign. There is a heterogeneous lesion within the right liver lobe measuring approximately 10 centimetres. This could represent patient's known abscess MICROBIOLOGY: Pending blood cultures from 05/10 MEDICATIONS: Scheduled Meds: amoxicillin-clavulanate 1 tablet Oral 2 times per day docusate 100 mg Oral BID enoxaparin 40 mg Subcutaneous Daily fluoxetine 20 mg Oral Daily guaifenesin 600 mg Oral BID levothyroxine 125 mcg Oral Daily lidocaine 2 patch Transdermal Daily magnesium sulfate 1 g Intravenous Once methocarbamol 500 mg Oral 4x Daily polyethylene glycol 17 g Oral Daily potassium chloride 20 mEq Oral BID potassium phosphate (monobasic) 500 mg Oral 4 x Daily with Meals & Nightly sodium phosphate 6 mmol Intravenous Q2H sulfaSALAzine 500 mg Oral 4x Daily torsemide 10 mg Oral Daily Continuous Infusions: PRN Meds:.acetaminophen (TYLENOL) tablet, ondansetron, oxyCODONE OR oxyCODON E Assessment: Carter Vega is a 74 y.o. female with myriad medical problems who presents as a transfer from [facility] for hepatobiliary evaluation of persistent liver absc ess. Principal Problem: Hepatic abscess Active Problems: Current use of snf anticoagulation Ulcerative colitis Plan: Neuro: - Pain: PRN oxycodone, PRN tylenol. Adequately controlled CVS: - HDS stable Pulm: - Breathing comfortably, saturating well on RA GI/FEN: - Diet Adult; Modified; Fat/Cholesterol; Low Sat Fat/Low Chol (<200mg). - bowel regimen: docusate - Liver collection/mass: aspiration did not yield drainage. Awaiting pathology r esults - CEA 33.7. AFP 1. CA19-9 9179 - concern for malignancy of biliary tree origin - Minimal nausea: Zofran PRN -Abdominal gas: will add simethicone /Renal: - Stable creatine. UO 1675cc/24 hours - Repleting electrolyes daily Heme: - DVT ppx: Lovenox 40 mg Daily - Hx of DVT and PE: will determine plan on restarting coumaidn Endo: - Normal glucose levels. Not on antidiabetics or insulin scale ID: - On Zosyn since admission. FU drain cultures - ID consulted for intermission coordinator management plan - Will determine need for PICC line if patient has to stay on long-term antibiot ics DISPOSITION: Acute, pending workup-up of lesion Fransisco Hunt MD PGY-1 | Department of Surgery 05/14/2020 6:41 AM Associated attestation - Simone Meadows MD - 05/15/2020 2:48 PM EST I directly interviewed the patient, performed rodriguez portions of the examination, p ersonally reviewed pertinent ancillary data/imaging and corresponding radiology reports, and supervised the rodriguez medical decision-making/plan of care. I agree wi th the assessment, meds, and plan proposed by resident, unless mentioned in this attending note. We consulted palliative care for pain management as patient most likely has canc er related pain given her CA 19-9 was quite elevated. We also call pathology fo r preliminary read and to expedite the pathology. We tentatively made plans for a repeat biopsy in case the initial biopsy was inconclusive. * Yady Sheikh RN - 05/13/2020 3:13 PM EST Case Management Screen & Assessment Patient Name: Carter Vega Gender: female Date of : 1945 Admission Dx: Hepatic abscess [K75.0] Age: 74 y.o. Admission: 05/10/2020 12:57 AM Attending Provider: Simone Meadows MD High Risk Criteria - Prior to Admission/Upon Arrival MEETING SPECIALIST-Type of Residence: Private Residence MEETING SPECIALIST- Home Care Services: No Limited Home Supports/Lives Alone?: Yes Multi trauma/Critical care/Step down admit?: No Head/Spinal cord injury?: No Self Pay: No Multiple ED visits?: No Related/Unplanned readmission within 30 days?: No Complex/New medical issues: Hepatic abscess Relevant comorbidities: AFib, HTN, Thyroid desease , DVT Psychosocial considerations: Lives alone Screening Outcome Social Work Consult Needed?: No Further Case Management Needs?: Case Management Needs Chart Review PCP Verified?: Patient has PCP Prior to Admission: Functional/Environmental Assessment Bathing: Independent Dressing: Independent Toileting: Independent Medication administration: Independent Transfers: Independent Ambulation: Independent Meal preparation: Independent Number of stairs into home: 5 Number of stairs to bathroom: 12 Number of stairs to bedroom: 12 Discharge Planning Living Arrangements: Alone Support Systems: Children Type of Residence: Private residence Is this patient appropriate for transfer to [facility]?: No Patient/family informed of need for discharge planning?: Yes Patient expects to be discharged to:: Home Actual discharge location : Other (Comments) Note: Pt is transferred from [facility] with a very large hepatic absce ss adjacent to a very distended gallbladder with cholelithiasis, and presumed cy stic duct obstruction. Is not clear if the obstruction is secondary to inflamma tion versus a stone present in the cystic duct. Patient underwent needle liver biopsy on 05/12/2020. CM spoke with patient. Explained CM role and discharge planning. Patient lives alone in two story house. There 5 steps to enter ans 12 steps to t he bedroom and bathroom . Patient is independent with her ADLs and iADls. She is retired . Her son line very close to her and visiting patient often Patient is able to get her prescriptions. Per ID note plan is for short term ABX, can complete 1 week of PO Augmentin whi le awaiting the cytology and pathology results. Please STOP the IV Zosyn Start PO Augmentin at 875/125 mg BID, for 7 days from 05-09-2020. Follow cytology and pathology results CM to follow up with D/C planing. Yady Sheikh * Jose De La Garza MD PhD - 05/13/2020 2:59 PM EST Infectious Disease Follow-up Note: Initial Reason for Consult/Chief Complaint: liver abscess.. SUBJECTIVE and ROS: This patient was examined at the bedside. Reports abdominal pain-steve as previo us, some nausea, w/o vomiting, constipation FULL 10-points review of systems was obtained and was negative except the positi ve findings mentioned above. Physical Exam: Vital signs: Vitals: 05/13/20 0923 05/13/20 0929 05/13/20 1105 05/13/20 1300 BP: 103/76 103/76 110/66 101/62 BP Location: Left arm Left arm Patient Position: Lying Lying Pulse: 100 88 93 Resp: (!) 20 (!) 23 (!) 20 Temp: 36.1 C (97 F) TempSrc: Axillary SpO2: 92% 92% 94% Weight: Height: Tmax: Temp (24hrs), Av.8 C (98.2 F), Min:36.1 C (97 F), Max: 37.1 C (98.8 F) Physical Exam General: obese WF, in no acute distress. HEENT: PERRLA, EOMI, MMM Neck: JVP does not appear elevated, No Carotid Bruits Cardiac: RRR, Normal S1 & S2. No m/r/g. Respiratory/Chest: Not in distress, Good air entry. CTA B/L, No w/r/r Abdomen: obese but nondistended, BS present, soft, slight RUQ tenderness, no re bound Extremities: Warm and well perfused. Non-pitting edema R leg > L leg (DVT was at R leg). Peripheral pulses symmetric. Neuro: AO x3, no focal neurological deficits appreciated. Skin: intact, no rashes appreciated. Lines & Catheters: All lines and catheters were examined and no signs of infection, such as erythem a, tenderness, discharge, were observed. Peripheral IV 05/13/20 Left;Posterior Forearm (Active) Site Assessment Clean;Dry;Intact 05/13/20 1000 Line Status Flushed;Normal saline locked 05/13/20 1000 Line Care Connections checked and tightened 05/13/20 1000 Dressing Status Clean;Dry;Intact 05/13/20 1000 Dressing Intervention New dressing 05/13/20 1000 Number of days: 0 Data Review: Laboratory Data: Recent Labs Lab 05/11/20 0735 05/12/20 0359 05/13/20 0250 HGB 11.3* 10.4* 11.3* HCT 36.0 33.1* 35.9* WBC 13.8* 13.8* 14.7* PLT 289 304 288 Lab Results Component Value Date NEUTOPHILPCT 76 05/13/2020 LYMPHOPCT 6 05/13/2020 MONOPCT 12 05/13/2020 EOSPCT 5 05/13/2020 Lab Results Component Value Date NA 135 (L) 05/13/2020 K 4.3 05/13/2020 CL 103 05/13/2020 BICARBONATE 24 05/13/2020 GLUCOSE 98 05/13/2020 BUN 10 05/13/2020 CREATININE 0.80 05/13/2020 Lab Results Component Value Date PROT 6.4 05/13/2020 ALBUMIN 3.1 (L) 05/13/2020 AST 11 05/13/2020 ALT 13 05/13/2020 TBILI 0.3 05/13/2020 ALKPHOS 244 (H) 05/13/2020 Lab Results Component Value Date INR 1.16 05/10/2020 New Microbiology and Imaging: Reviewed. See Interim History. Assessment: Carter Vega is a 74 y.o. female w/ PMH of UC on Entivo, sulfadiazine, s/p di verticular perf 2006, s/p hernia repair w/ mesh 2009, PE, DVT 2009, recurred 2019 Admitted for unresolving liver abscess, never received long-term ABX, [facility]: only blood and urine cx: negative; aspirate 05-12: neg gram stain, no WBCs seen, liver biopsy: PENDING ABX: on zosyn since 05-09 Given the fact that pt again is not showing any evidence fo rinfection in the as pirated liver collection, this makes infection less likely and malignancy more l ikely. Therefore, we should only plan on short term ABX, can complete 1 week of PO Augmentin while awaiting the cytology and pathology results. Plan: # liver collections: Abscess unlikely Please STOP the IV Zosyn Start PO Augmentin at 875/125 mg BID, for 7 days from 05-09-2020. Follow cytology and pathology results The patient was seen and discussed with Attending MARY ANNE Cuellar who agree s with the above assessment and plan. 05/13/2020 2:59 PM Jose De La Garza M.D., Ph.D. Infectious Diseases Fellow Associated attestation - Mary Anne Jeffrey DO - 05/13/2020 7:31 PM EST I reviewed the chart and available clinical laboratory, radiologic, and microbio logic test results. I reviewed the hospital course to date and applicable progre ss notes, consults, and other relevant documentation. I met with the patient and completed a history and physical examination. I reviewed the case with the ID Jacy suarez and other ID consult team members. I agree with the diagnostic and treatme nt plan as detailed in the Fellow's note in addition to my thoughts below. Discussed preliminary findings of liver aspirate with primary team and patient. Abscess seems unlikely at this point, cannot completely exclude the possibility, but again minimal output of fluid from procedure, with Gram stain and culture s terile. Can switch pip-tazo to amoxicillin-clavualanate for 7 days of therapy. W ill await pathology results, but obvious concern is for malignancy Thank you for allowing us to see this patient in consultation. Please do not hes itate to call for further questions or concerns. * Gerson Fiore RN - 05/13/2020 12:06 PM EST Pt transferred to via wheelchair. Pt ambulated to wheelchair and was taken to by transport staff with all of her belongings. VSS. Report given to ongoing nurse. * Dorcas Ramon MD - 05/13/2020 11:21 AM EST Spoke to ID. As the liver lesion is more consistent with a mass rather than an a bscess, will switch to augmentin and complete a 2 week course. Dorcas Ramon MD PGY-3 | Department of Surgery [phone] (pager) 05/13/2020 11:22 AM * Fransisco Hunt MD - 05/13/2020 8:17 AM EST Surgery Progress Note Hospital Day #: 3 Post Operative Day #: Procedure: INTERVAL PRESENT HISTORY: Patient denies fever, chills, chest pain, shortness of breath. Patient has diffu se abdominal pain, non-severe. She has minimal nausea but no vomiting. IR guided attempt at draining collection was done yesterday. Aspiration yielded little am ount of serosanguinous fluid. Will follow-up for surgical pathology. VITAL SIGNS: Vitals: 05/13/20 0600 05/13/20 0601 05/13/20 0603 05/13/20 0923 BP: 135/88 103/76 BP Location: Patient Position: Pulse: (!) 101 98 97 Resp: (!) 21 Temp: TempSrc: SpO2: Weight: Height: INTAKE/OUTPUT (last 3 shifts): I/O last 3 completed shifts: In: 1741.7 [P.O.:270; I.V.:1421.7; IV Piggyback:50] Out: 1675 [Urine:1675] PHYSICAL EXAM: Gen: A&O x3 Resp: breathing comfortably on RA CV: RRR on monitor GI: Soft, nontender, nondistended, no rebound or guarding. Ext: warm, well perfused LABS: Recent Labs Lab 05/11/20 0735 05/12/20 0359 05/13/20 0250 WBC 13.8* 13.8* 14.7* HGB 11.3* 10.4* 11.3* HCT 36.0 33.1* 35.9* PLT 289 304 288 NEUTOPHILPCT 76 72 76 Recent Labs Lab 05/11/20 0735 05/12/20 0359 05/13/20 0250 NA 137 137 135* K 3.9 4.5 4.3 CL 106 106 103 BICARBONATE 23 25 24 BUN 10 9 10 CREATININE 0.73 0.76 0.80 GLUCOSE 100 82 98 CALCIUM 9.8 9.0 9.4 MG 2.0 1.8 2.1 PHOS 2.4* 2.5 2.0* Recent Labs Lab 05/10/20 0248 INR 1.16 IMAGING: Ultrasound Cholelithiasis. Negative sonographic Prajapati sign. There is a heterogeneous lesion within the right liver lobe measuring approximately 10 centimetres. This could represent patient's known abscess MICROBIOLOGY: Pending blood cultures from 05/10 MEDICATIONS: Scheduled Meds: docusate 100 mg Oral BID [START ON 05/14/2020] enoxaparin 40 mg Subcutaneous Daily fluoxetine 20 mg Oral Daily levothyroxine 125 mcg Oral Daily lidocaine 2 patch Transdermal Daily methocarbamol 500 mg Oral 4x Daily piperacillin-tazobactam 3.375 g Intravenous Q8H polyethylene glycol 17 g Oral Daily potassium chloride 20 mEq Oral BID potassium phosphate (monobasic) 500 mg Oral 4 x Daily with Meals & Nightly sulfaSALAzine 500 mg Oral 4x Daily torsemide 10 mg Oral Daily Continuous Infusions: PRN Meds:.acetaminophen (TYLENOL) tablet, ondansetron, oxyCODONE OR oxyCODON E Assessment: Carter Vega is a 74 y.o. female with myriad medical problems who presents as a transfer from [facility] for hepatobiliary evaluation of persistent liver absc ess. Principal Problem: Hepatic abscess Active Problems: Current use of intermission coordinator anticoagulation Ulcerative colitis Plan: Neuro: - Pain: PRN oxycodone, PRN tylenol. Adequately controlled CVS: - HDS stable Pulm: - Breathing comfortably, saturating well on RA GI/FEN: - Diet Adult; Modified; Fat/Cholesterol; Low Sat Fat/Low Chol (<200mg). - bowel regimen: docusate - Liver collection/mass: aspiration did not yield drainage. Awaiting pathology r esults - CEA, CA19-9, and AFP pending for malignancy workup - PPI: none - Minimal nausea: Zofran PRN /Renal: - Stable creatine. UO 1675cc/24 hours - Repleting electrolyes daily Heme: - DVT ppx: Lovenox 40 mg Daily Endo: - Normal glucose levels. Not on antidiabetics or insulin scale ID: - On Zosyn since admission. FU blood cultures and drain cultures - ID consulted for snf management plan - Will determine need for PICC line if patient has to stay on long-term antibiot ics DISPOSITION: Acute, pending workup-up of lesion Fransisco MD Marilee PGY-1 | Department of Surgery 05/13/2020 10:06 AM Associated attestation - Simone Meadows MD - 05/13/2020 11:04 AM EST I directly interviewed the patient, performed rodriguez portions of the examination, p ersonally reviewed pertinent ancillary data/imaging and corresponding radiology reports, and supervised the rodriguez medical decision-making/plan of care. I agree wi th the assessment, meds, and plan proposed by resident, unless mentioned in this attending note. I saw and evaluated the patient. I also spoke with her son by phone. The radio logist did not note any significant pus. I am concerned that this could be a ne crotic tumor. We will order tumor markers. We will also ask pathology to exped ite the opinion as it will help us decide whether this is an infectious versus m alignant process. * Simone Meadows MD - 05/12/2020 5:26 PM EST I saw the patient and evaluated her outside imaging. She has a history of galls tones and a large liver abscess which was apparently drained at the outside hosp ital but did not put out much. Given her history of ulcerative colitis it is un clear whether she had PSC. I have asked the IR to aspirate it and if they do no t get any pus do core biopsies of this liver mass/abscess. It is unclear whethe r this is a necrotic malignancy or infec tious process. We will consult ID for recommendations regarding antibiotics in the meantime as well. We will update t he patient's healthcare proxy. * Fransisco Hunt MD - 05/12/2020 9:59 AM EST Surgery Progress Note Hospital Day #: 2 Post Operative Day #: Procedure: INTERVAL PRESENT HISTORY: Patient denies fever, chills, chest pain, shortness of breath. At time of encoun ter she denied abdominal pain. She has minimal nausea but no vomiting. VITAL SIGNS: Vitals: 05/12/20 0610 05/12/20 0615 05/12/20 0800 05/12/20 0852 BP: 119/73 121/86 116/58 BP Location: Left arm Left arm Patient Position: Lying Lying Pulse: 87 79 Resp: (!) 24 18 (!) 29 Temp: 36.9 C (98.4 F) TempSrc: Oral SpO2: 93% 94% Weight: Height: INTAKE/OUTPUT (last 3 shifts): I/O last 3 completed shifts: In: 792.7 [P.O.:360; I.V.:242; IV Piggyback:190.6] Out: 1000 [Urine:1000] PHYSICAL EXAM: Gen: A&O x3 Resp: breathing comfortably on RA CV: RRR on monitor GI: Soft, nontender, nondistended, no rebound or guarding. Ext: warm, well perfused LABS: Recent Labs Lab 05/10/2024705/11/20 0735 05/12/20 0359 WBC 14.8* 13.8* 13.8* HGB 10.3* 11.3* 10.4* HCT 32.4* 36.0 33.1* PLT 253 289 304 NEUTOPHILPCT 74 76 72 Recent Labs Lab 05/10/208 05/11/20 0735 05/12/20 0359 NA 137 137 137 K 3.3* 3.9 4.5 CL 106 106 106 BICARBONATE 24 23 25 BUN 10 10 9 CREATININE 0.71 0.73 0.76 GLUCOSE 105 100 82 CALCIUM 7.9* 9.8 9.0 MG 1.8 2.0 1.8 PHOS 2.4* 2.4* 2.5 Recent Labs Lab 05/10/20 0248 INR 1.16 IMAGING: No results found. MICROBIOLOGY: Pending blood cultures from 05/10 MEDICATIONS: Scheduled Meds: docusate 100 mg Oral BID [START ON 05/13/2020] enoxaparin 40 mg Subcutaneous Daily fluoxetine 20 mg Oral Daily levothyroxine 125 mcg Oral Daily piperacillin-tazobactam 3.375 g Intravenous Q8H polyethylene glycol 17 g Oral Daily potassium chloride 20 mEq Oral BID sulfaSALAzine 500 mg Oral 4x Daily torsemide 10 mg Oral Daily Continuous Infusions: lactated ringers 75 mL/hr (05/12/20 0659) PRN Meds:.acetaminophen (TYLENOL) tablet, calcium gluconate, magnesium sulfate, ondansetron, oxyCODONE FOLLOWED BY [START ON 05/13/2020] oxyCODONE, potassiu m chloride OR potassium chloride, potassium phosphate OR potassium phosp hate, sodium phosphate OR sodium phosphate Assessment: Carter Vega is a 74 y.o. female with myriad medical problems who presents as a transfer from [facility] for hepatobiliary evaluation of persistent liver absc ess. Principal Problem: Hepatic abscess Active Problems: Current use of intermission coordinator anticoagulation Ulcerative colitis Plan: Neuro: - Pain: PRN oxycodone, PRN tylenol. Adequately controlled CVS: - HDS stable Pulm: - Breathing comfortably, saturating well on RA GI/FEN: - Diet Adult; NPO; PO Meds. Off diet, for IR intervention possible drain placeme nt, possible biopsy - bowel regimen: docusate - PPI: none - Minimal nausea: will add Zofran PRN /Renal: - Stable creatine. UO 1000cc/24 hours. Maintained on IVF LR 75 cc/hr Heme: - DVT ppx: none, holding for possible IR intervention Endo: - Normal glucose levels. Not on antidiabetics or insulin scale ID: - On Zosyn since admission. FU blood cultures - ID consulted for intermission coordinator management plan - Plan for IR guided drainage of abscess and biopsy DISPOSITION: may transfer to [facility] in afternoon if remains stable Fransisco Hunt MD PGY-1 | Department of Surgery 05/12/2020 9:59 AM Associated attestation - Simone Meadows MD - 05/13/2020 11:05 AM EST I directly interviewed the patient, performed rodriguez portions of the examination, p ersonally reviewed pertinent ancillary data/imaging and corresponding radiology reports, and supervised the rodriguez medical decision-making/plan of care. I agree wi th the assessment, meds, and plan proposed by resident, unless mentioned in this attending note. I saw the patient and evaluated her outside imaging. She has a history of galls tones and a large liver abscess which was apparently drained at the outside hosp ital but did not put out much. Given her history of ulcerative colitis it is un clear whether she had PSC. I have asked the IR to aspirate it and if they do no t get any pus do core biopsies of this liver mass/abscess. It is unclear whethe r this is a necrotic malignancy or infec tious process. We will consult ID for recommendations regarding antibiotics in the meantime as well. We will update t he patient's healthcare proxy. * Tanner Mcneill RN - 05/11/2020 11:45 AM EST Read and agree with assessment entered by MU Ochoa. No acute changes noted * Fransisco Hunt MD - 05/11/2020 9:07 AM EST Surgery Progress Note Hospital Day #: 1 Post Operative Day #: Procedure: INTERVAL PRESENT HISTORY: Patient denies fever, chills, chest pain, shortness of breath. At time of encoun ter she denied abdominal pain, but she stated that her pain alternates. She has minimal nausea but no vomiting. VITAL SIGNS: Vitals: 05/11/20 0000 05/11/20 0200 05/11/20 0400 05/11/20 0600 BP: 127/76 122/69 125/82 91/66 BP Location: Right arm Right arm Right arm Right arm Patient Position: Lying Lying Lying Lying Pulse: 66 64 65 72 Resp: (!) 20 16 (!) 20 (!) 20 Temp: 37 C (98.6 F) 37.1 C (98.8 F) TempSrc: Axillary Axillary SpO2: 93% 92% 95% 95% Weight: Height: INTAKE/OUTPUT (last 3 shifts): I/O last 3 completed shifts: In: 2389.1 [P.O.:750; I.V.:1288.8; IV Piggyback:350.3] Out: 900 [Urine:900] PHYSICAL EXAM: Gen: A&O x3 Resp: breathing comfortably on RA CV: RRR on monitor GI: Soft, nontender, nondistended, no rebound or guarding. Ext: warm, well perfused LABS: Recent Labs Lab 05/10/208 05/11/20 0735 WBC 14.8* 13.8* HGB 10.3* 11.3* HCT 32.4* 36.0 PLT 253 289 NEUTOPHILPCT 74 76 Recent Labs Lab 05/10/208 05/11/20 0735 NA 137 137 K 3.3* 3.9 CL 106 106 BICARBONATE 24 23 BUN 10 10 CREATININE 0.71 0.73 GLUCOSE 105 100 CALCIUM 7.9* 9.8 MG 1.8 2.0 PHOS 2.4* 2.4* Recent Labs Lab 05/10/20247 INR 1.16 IMAGING: No results found. MICROBIOLOGY: Pending blood cultures from 05/10 MEDICATIONS: Scheduled Meds: docusate 100 mg Oral BID fluoxetine 20 mg Oral Daily levothyroxine 125 mcg Oral Daily piperacillin-tazobactam 3.375 g Intravenous Q8H polyethylene glycol 17 g Oral Daily potassium chloride 20 mEq Oral BID sulfaSALAzine 500 mg Oral 4x Daily torsemide 10 mg Oral Daily Continuous Infusions: lactated ringers 75 mL/hr (05/11/20 0000) PRN Meds:.acetaminophen (TYLENOL) tablet, calcium gluconate, magnesium sulfate, oxyCODONE FOLLOWED BY [START ON 05/13/2020] oxyCODONE, potassium chloride OR potassium chloride, potassium phosphate OR potassium phosphate, sodium phosphate OR sodium phosphate Assessment: Carter Vega is a 74 y.o. female with myriad medical problems who presents as a transfer from [facility] for hepatobiliary evaluation of persistent liver absc ess. Principal Problem: Hepatic abscess Active Problems: Current use of snf anticoagulation Ulcerative colitis Plan: Neuro: - Pain: PRN oxycodone, PRN tylenol. Adequately controlled CVS: - HDS stable Pulm: - Breathing comfortably, saturating well on RA GI/FEN: - Diet Adult; NPO; PO Meds. Off diet, for possible IR intervention - bowel regimen: docusate - PPI: none - Minimal nausea: will add Zofran PRN /Renal: - Stable creatine. UO 900cc/24 hours. Maintained on IVF LR 75 cc/hr Heme: - DVT ppx: none, holding for possible IR intervention Endo: - Normal glucose levels. Not on antidiabetics or insulin scale ID: - On Zosyn since admission. FU blood cultures - Plan for IR guided drainage of abscess DISPOSITION: may transfer to acute in afternoon if remains stable Fransisco Hunt MD PGY-1 | Department of Surgery 05/11/2020 9:07 AM Associated attestation - Leif Bermudez MD - 05/11/2020 12:32 PM EST Staff Attestation/Addendum: Large hepatic abscess, getting right upper quadrant ultrasound today to evaluate whether can be percutaneously drained as per request by interventional radiolog y. Continue IV antibiotics. We have requested that her other CT scans from [facility] be pushed over for us to evaluate. Patient will likely transition over t o care under the hepatobiliary service tomorrow. Hypokalemia present on admission, resolved. Recent DVT with PE present on admission, homocystine levels normal, genetic test ing for factor V Leiden and prothrombin [id number] pending. Currently holding anticoagulation for interventional radiology. I directly interviewed the patient, performed rodriguez portions of the examination, p ersonally reviewed pertinent ancillary data/imaging, and supervised the rodriguez [facility] decision-making/plan of care. I agree with the assessment, meds, and plan pr oposed by resident, unless mentioned above in this attending note. Leif Bermudez MD 05/11/20 12:29 PM * Reshma Riley RN - 05/11/2020 1:11 AM EST If wound was present on admission, this documentation was sent to attending prov ider for cosignature. Assessment completed by admitting RN and pulled into note by this RN. 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 Patient reports no family history of hypercoagulable conditions, or known DVTs or PEs. She denies any previous mis carriages. She reports quitting smoking 20 years ago. At this time, we are ordering genetic testing for Factor V (Leiden) and Prothrom bin 60969C>A, as well as homocysteine levels. We will hold off on testing levels of acute phase reactants (Protein C, Protein S, and Anti-thrombin III) at this time, as being on therapeutic anticoagulation in addition to her current elevated inflammatory state will limit the accuracy of the results. Informed consent was obtained from the patient for the genetic testing we will pursue. * Lisandro Ochoa RN - 05/10/2020 10:47 AM EST Pt arrived to unit at 1035. Pt ambulated to bathroom and bed with can and with s tandby assist. LR and Zosyn running at prescribed rate. Abdominal dressing clean dry and intact. Pt states no pain. Vital signs stable - see flowsheet. Patient oriented to room. * Yael Wong RN - 05/10/2020 6:13 AM EST Associated attestation - Leif Bermudez MD - 05/11/2020 12:32 PM EST Leif Bermudez MD 05/11/20 12:32 PM documented in this encounter H&P Notes * Leif Doyle NP - 05/12/2020 12:43 PM EST Interventional Radiology Preprocedure HISTORY AND PHYSICAL Diagnosis: 1. Hepatic abscess Patient Active Problem List Diagnosis Hepatic abscess Current use of snf anticoagulation Ulcerative colitis History of present illness: Patient is a 74 y.o. female who is seen for image gu ided liver abscess/mass aspiration, possible drain placement, possible biopsy. Past Medical history: Past Medical History: Diagnosis Date Atrial fibrillation DVT (deep venous thrombosis) Hypertension Thyroid disease Past Surgical history: Past Surgical History: Procedure Laterality Date COLECTOMY/COLON RESECTION THYROIDECTOMY Family History: No family history on file. REVIEW OF SYSTEMS Pertinent items are noted in HPI. Current medications: Current Facility-Administered Medications Medication Dose Route Frequency Provider Last Rate Last Admin acetaminophen (TYLENOL) tablet 650 mg 650 mg Oral Q6H PRN Marcelino gilbert MD 650 mg at 05/12/20 0852 calcium gluconate in NaCl 0.9 % infusion 2 g/50 mL 2 g Intravenous Q1H P MU Ramon MD docusate (COLACE) 50 MG/5ML liquid 100 mg 100 mg Oral BID Marcelino gilbert MD 100 mg at 05/11/20 0941 [START ON 05/13/2020] enoxaparin sodium (LOVENOX) injection 40 mg 40 mg Subcutaneous Daily Fransisco Hunt MD fluoxetine (PROZAC) capsule 20 mg 20 mg Oral Daily Avila Stuart MD 20 mg at 05/12/20 0852 lactated ringers infusion 75 mL/hr Intravenous Continuous Marcelino gilbert MD 75 mL/hr at 05/12/20 0659 75 mL/hr at 05/12/20 0659 levothyroxine (SYNTHROID) tablet 125 mcg 125 mcg Oral Daily Fior Watt 125 mcg at 05/12/20 0800 magnesium sulfate infusion 2 g/50 mL (premix) 16 mEq Intravenous Q1H PRN Dorcas Ramon MD ondansetron (ZOFRAN) injection 4 mg 4 mg Intravenous Q8H PRN Fransisco Mcginnis MD oxyCODONE (ROXICODONE) immediate release tablet 5 mg 5 mg Oral Q4H PRN Chung Kaufman MD 5 mg at 05/11/20 2337 Followed by [START ON 05/13/2020] oxyCODONE (ROXICODONE) immediate release tablet 10 mg 10 mg Oral Q4H PRN Marcelino Kaufman MD piperacillin-tazobactam (ZOSYN) IVPB 3.375 g (premix) 3.375 g Intravenou s Q8H Avila Stuart MD 12.5 mL/hr at 05/12/20 0328 3.375 g at 05/12/20 0328 polyethylene glycol (MIRALAX) packet 17 g 17 g Oral Daily Marcelino gilbert MD 17 g at 05/10/20 0830 potassium chloride (K-DUR) dissolvable tablet 20 mEq 20 mEq Oral BID Irina Leggett MD 20 mEq at 05/12/20 0852 potassium chloride 20 mEq in 50 mL IVPB (premix) 20 mEq Intravenous Q1H PRN Dorcas Ramon MD Or potassium chloride 10 mEq in 100 mL IVPB (premix) 10 mEq Intravenous Q1H PRN Dorcas Ramon MD potassium phosphate infusion 12 mmol/100 mL (central line) (premix) 12 m mol Intravenous Q2H PRN Dorcas Ramon MD Or potassium phosphate infusion 6 mmol/100 mL (premix) 6 mmol Intravenous Q 2H PRN Dorcas Ramon MD sodium phosphate infusion 12 mmol/100 mL (central line) (premix) 12 mmol Intravenous Q2H PRMandie Ramon MD Or sodium phosphate infusion 6 mmol/100 mL (premix) 6 mmol Intravenous Q2H PRMandie Ramon MD sulfaSALAzine (AZULFIDINE) tablet 500 mg 500 mg Oral 4x Daily Avila Stuart MD 500 mg at 05/12/20 0858 torsemide (DEMADEX) tablet 10 mg 10 mg Oral Daily Avila Stuart MD 10 mg at 05/12/20 0853 Allergies: No Known Allergies Problems with sedation/anesthesia? no Potential Drug/ Sedative Interaction?no PHYSICAL EXAM Vitals: Visit Vitals BP 120/74 (BP Location: Left arm, Patient Position: Lying) Pulse 81 Temp 36.9 C (98.4 F) (Oral) Resp (!) 22 Ht 1.473 m (4' 9.99") Wt 61.8 kg (136 lb 3.2 oz) SpO2 95% BMI 28.47 kg/m Exam: General Appearance: No apparent distress Airway: II (hard and soft palate, upper portion of tonsils and uvula visible) Lungs: Clear to auscultation bilaterally, respirations unlabored Heart: Regular rate and rhythm ASA Physical Status Classification: ASA 3 - Patient with moderate systemic disea se with functional limitations Local/Moderate Sedation Rationale: Pain Control Procedure: Image guided liver abscess/mass aspiration, possible drain placement, possible biopsy. DAY OF SURGERY VERIFICATION: There have been no significant clinical changes sin ce the completion of the above H&P. Leif Doyle NP-C Interventional Radiology * Avila Stuart MD - 05/10/2020 3:00 AM EST H&P 05/10/2020 HPI: Carter Vega is a 74 y.o. female with PMH as below and significant for ulcerat leticia colitis, Sanchez's procedure in 2006 for perforated diverticulitis, incision al hernia repair with mesh in 2009, atrial fibrillation and DVT currently on the rapeutic Lovenox. She presents to ED as a transfer from [facility] hepatobiliary surgery evaluation of persistent liver abscess/mass. Per chart review, this is first noted in February 2020 at which point it was aspirated and drained by IR. Follow-up CAT scan in early April 2020 showed enlargement of this presumed abscess at which point another drain was placed. At 1 week follow -up appointment on 05/08, the drain was shown to be nonfunctional and was eventu ally removed on 05/09. Ms. Vega presented again with persistent pain from th e right posterior neck down her shoulder blade to the right abdomen and flank an d was transferred to ED for further evaluation after CT showed approximately 10 cm fluid collection in the liver. At time of exam, she continues to endorse right shoulder, right flank and right- sided back pain. Denies current F/C/N/V, lightheadedness, dizziness, chest pain , shortness of breath or numbness and tingling in any extremity. Of note, she has recent bilateral pulmonary emboli and was switched from Eliquis to therapeutic Lovenox which she continues for insurance reasons. WBC 14.8, H/H 10.3/32.4, INR 1.16. PMH: Past Medical History: Diagnosis Date Atrial fibrillation DVT (deep venous thrombosis) Hypertension Thyroid disease PSH: Past Surgical History: Procedure Laterality Date COLECTOMY/COLON RESECTION THYROIDECTOMY SH: Tobacco Use Smoking status: Former Substance and Sexual Activity Alcohol use: Denies Drug use: Denies ROS Review of Systems negative unless described above in HPI. MEDICATIONS: Scheduled Meds: docusate 100 mg Oral BID enoxaparin sodium 80 mg Subcutaneous Daily fluoxetine 20 mg Oral Daily [START ON 05/11/2020] levothyroxine 125 mcg Oral Daily magnesium sulfate 1 g Intravenous Once piperacillin-tazobactam 3.375 g Intravenous Q8H polyethylene glycol 17 g Oral Daily potassium chloride 10 mEq Intravenous Q1H potassium chloride SA 10 mEq Oral BID sulfaSALAzine 500 mg Oral 4x Daily torsemide 10 mg Oral Daily Continuous Infusions: lactated ringers 75 mL/hr (05/10/20 0706) VITAL SIGNS: Temp: [36.4 C (97.5 F)-36.9 C (98.4 F)] 36.9 C (98.4 F) Pulse: [63-72] 72 Resp: [11-18] 11 BP: (92-111)/(41-89) 95/41 SpO2: [90 %-97 %] 97 % O2 Therapy: Room air SpO2 Readings from Last 3 Encounters: 05/10/20 97% PHYSICAL EXAM: Gen: A&O x3 Resp: breathing comfortably on RA CV: RRR on monitor GI: Soft, nontender, nondistended, no rebound or guarding. Endorses pain in back and R shoulder when moving, no TTP Ext: warm, well perfused IMAGING: Service Date and Time: 05/09/20201921 Technologist: JES Exam Requested: CT ANGIO CHEST Reason for Patient Visit: HEADACHE Reason for Exam: pain/sob hx pe PROCEDURE INFORMATION: Exam: CT Angiography Chest With Contrast Exam date and time: 05/09/2020 7:22 PM Age: 74 years old Clinical indication: Shortness of breath; Chest pain; Additional info: Pain/sob HX pe IMPRESSION: 1. Pulmonary emboli in both lower lobes that have partially resolved since the prior CT abdomen and pelvis on 02/18/2020. No pulmonary infarct or CT evidence for a right ventricular strain. 2. 1.8 cm nodule in the left lobe of the thyroid gland that has increased in size from 1.2 cm since the prior CTA chest on 10/11/2016. Further evaluation with a thyroid ultrasound is suggested, which can be performed on a nonemergent basis. CT Abdomen/Pelvis 05/09: Service Date and Time: 05/09/20201921 Technologist: [email or web address] Exam Requested: CT ABD/PEL W/IV CONTRAST ONLY Reason for Patient Visit: HEADACHE Reason for Exam: pain/fever PROCEDURE INFORMATION: Exam: CT Abdomen And Pelvis With Contrast Exam date and time: 05/09/2020 7:22 PM Age: 74 years old Clinical indication: Fever; Abdominal pain; Generalized; Additional info: Pain/fever TECHNIQUE: Imaging protocol: Computed tomography of the abdomen and pelvis with intravenous contrast. Radiation optimization: All CT scans at this facility use at least one of these dose optimization techniques: automated exposure control; mA and/or kV adjustment per patient size (includes targeted exams where dose is matched to clinical indication); or iterative reconstruction. Contrast material: ISOVUE 370; Contrast volume: 100 ml; Contrast route: INTRAVENOUS (IV); COMPARISON: 1. CT ABD/PEL W/IV CONTRAST ONLY 02/18/2020 6:30 AM 2. US - PV-Humberto 02/18/2020 2:42:[address] ANGIO CHEST 05/09/2020 7:16:05 PM 4. OR - CT Abdomen without contrast 05/06/2020 9:59:45 AM 5. OR - CT Abdomen with contrast 03/28/2020 11:40:00 AM 6. SR - CT ABD PELVIS W/O CONTRAST 09/17/2015 9:30:[address] ANGIO CHEST 10/11/2016 8:21:10 PM FINDINGS: Tubes, catheters and devices: The percutaneous drainage catheter has been removed from the hepatic abscess since the prior CT abdomen and pelvis on 05/06/2020. Lungs: There are filling defects in the subsegmental pulmonary arteries supplying the posterior segment of the right lower lobe, which are compatible with pulmonary emboli that have improved compared to the prior CT abdomen and pelvis on 02/18/2020. There is mild atelectasis in both lower lobes. Refer to the CTA chest report on 05/09/2020 for further details. Heart: No cardiomegaly. No pericardial effusion. Diaphragm: There is a large right anterior diaphragmatic hernia containing the liver that is similar in appearance compared to the prior CTA chest on 10/11/2016. There is a small fat containing left posteromedial diaphragmatic hernia and a small fat containing left anteromedial diaphragmatic hernia that are similar in appearance compared to the prior CTA chest on 10/11/2016. Liver: There is a 9.3 cm x 9.6 cm x 10 cm fluid collection in the right hepatic lobe, which is unchanged in size compared to the prior CT abdomen and pelvis on 05/06/2020. Acute hemorrhage and small foci of gas have developed in the fluid collection since the prior CT abdomen and pelvis on 05/06/2020. However, there is no active extravasation of contrast to indicate active hemorrhage in the liver. No subcapsular fluid collection is noted in the liver. There is a 10 mm low-attenuation lesion in the superolateral segment 2 of the left hepatic lobe and a 13 mm low-attenuation lesion in the posteroinferior segment 6 of the right hepatic lobe, which are stable compared to the prior CT abdomen and pelvis on 05/06/2020, but have developed since the prior CT abdomen and pelvis on 02/18/2020, and may represent hepatic abscesses. Gallbladder and bile ducts: The gallbladder is distended and contains several calculi. No pericholecystic inflammatory fat stranding is noted. There is minimal intrahepatic biliary ductal dilation that is similar in appearance compared to the prior CT abdomen and pelvis on 03/28/2020. No calcified stones are seen in the common bile duct. Pancreas: There is a 12 mm cyst with simple characteristics in the head of the pancreas, which is stable compared to the prior CT abdomen and pelvis on 09/17/2015. No inflammatory fat stranding is noted around the pancreas. Spleen: The spleen is heterogeneous in appearance, which is likely secondary to the arterial timing of the contrast bolus. No splenomegaly. Adrenal glands: Normal. No adrenal mass is noted. Kidneys and ureters: There are benign-appearing cysts in both kidneys, the largest measuring 17 mm in the left kidney, which are stable compared to the prior CT abdomen and pelvis on 02/18/2020 and for which further follow-up is not necessary. There is bilateral nephrolithiasis. No stones are noted in the ureters. Stomach and bowel: The stomach is decompressed, limiting its optimal evaluation. The small bowel is unremarkable. There is no evidence for a bowel obstruction, diverticulosis, diverticulitis, colitis, perforated viscus, pneumatosis intestinalis, intussusception, or volvulus. A colonic anastomosis is noted at the junction of the sigmoid colon and descending colon. Appendix: The appendix is not identified and may have been removed. No dilated blind ending tubular structure, inflammatory fat stranding, or fluid is noted in the expected location of the appendix. Intraperitoneal space: There are surgical clips in the abdomen. No free air or free fluid is noted. Retroperitoneal space: No fluid collection. No mass. No fluid collection. No mass. Vasculature: There is a filling defect in the left common femoral vein and left femoral vein in the left upper thigh (images 135-145 of the axial series 501), which is compatible with a deep vein thrombosis that has developed since the prior left lower extremity venous ultrasound on 02/18/2020. There is heterogeneous opacification of the main portal vein, superior mesenteric vein, and inferior mesenteric vein, which may represent admixture artifact rather than thromboses. The abdominal aorta is patent, normal in caliber, and there is no dissection. The iliac arteries, common femoral arteries, renal arteries, celiac artery, superior mesenteric artery, and inferior mesenteric artery are patent. There are mild atherosclerotic calcifications. Lymph nodes: No enlarged lymph nodes. Urinary bladder: The partially distended urinary bladder is unremarkable. No stones or masses are seen in the bladder. Reproductive: The uterus is anterverted and unremarkable. The ovaries are unremarkable. Bones/joints: There is no acute fracture or dislocation. There are degenerative changes involving the lumbar spine. The bones have a demineralized appearance. Incidental note is made of a small bone island in the left femoral head. Soft tissues: There is a large ventral hernia containing a portion of the mid transverse colon that is similar in appearance compared to the prior CT abdomen and pelvis on 05/06/2020. No bowel obstruction or strangulation is noted. There is a small fat containing indirect right inguinal hernia that is stable compared to the prior CT abdomen and pelvis on 02/18/2020. IMPRESSION: 1. Deep vein thrombosis in the left common femoral vein and left femoral vein in the left upper thigh, which have developed since the prior left lower extremity venous ultrasound on 02/18/2020. 2. Pulmonary emboli that have improved in the right lower lobe compared to the prior CT abdomen and pelvis on 02/18/2020. 3. 9.3 cm x 9.6 cm x 10 cm abscess in the right hepatic lobe, which is stable in size compared to the prior CT abdomen and pelvis on 05/06/2020, and there is acute hemorrhage and small foci of gas within the abscess that have developed since removal the percutaneous drainage catheter from the abscess in the prior CT abdomen and pelvis on 05/06/2020. No active extravasation of contrast to suggest active hemorrhage. 4. 10 mm low-attenuation lesion in the superolateral segment 2 of the left hepatic lobe and a 13 mm low-attenuation lesion in the posteroinferior segment 6 of the right hepatic lobe, which are stable compared to the prior CT abdomen and pelvis on 05/06/2020, but have developed since the prior CT abdomen and pelvis on 02/18/2020, and may represent hepatic abscesses. 5. Cholelithiasis. 6. Bilateral nonobstructive nephrolithiasis. 7. Large ventral hernia containing a portion of the mid transverse colon that is similar in appearance compared to the prior CT abdomen and pelvis on 05/06/2020. No bowel obstruction or strangulation. 8. Heterogeneous opacification of the main portal vein, superior mesenteric vein, and inferior mesenteric vein, which may represent admixture artifact rather than thromboses. 9. 12 mm cyst with simple characteristics in the head of the pancreas, which is stable compared to the prior CT abdomen and pelvis on 09/17/2015. Reimaging every 2 years for 10 years is recommended. (Reference: Lidia, 2017) ASSESSMENT: Carter Vega is a 74 y.o. female with myriad medical problems who presents as a transfer from [facility] for hepatobiliary evaluation of persistent liver abscess. Principal Problem: Hepatic abscess Active Problems: Current use of intermission coordinator anticoagulation Ulcerative colitis PLAN: -Admit to surgery stepdown Continue IV Zosyn given elevated white count Regular diet Continue Lovenox Hepatobiliary surgery to evaluate on 05/12 Code Status: Full Code Case discussed with chief resident Dr. Grady and attending Dr. Bermudez. Avila Stuart, PGY2 Pager: [phone] Associated attestation - Leif Bermudez MD - 05/11/2020 10:14 AM EST Staff Attestation/Addendum: Patient transferred with a very large hepatic abscess adjacent to a very distend ed gallbladder with cholelithiasis, and presumed cystic duct obstruction. Is no t clear if the obstruction is secondary to inflammation versus a stone present i n the cystic duct. These conditions all present on admission. Per the patient, she never had a cholecystostomy tube placed that would result in liver contamin ation and abscess. At baseline, she is on Entyvio and therefore is at much high er risk for infectious issues. It is possible that she may have experienced an episode of acute cholecystitis with contamination of the liver bed causing the a bscess. 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 She reports a negative colonoscopy a couple years ago. She has not undergo ne any significant evaluation for malignancy. She does have a history of inflam matory bowel disease which does increase her risk for DVT. She denies a family history of blood clots. She has not undergone a hypercoagulable work-up. At th is time, we will send off for genetic testing for factor V Leiden, prothrombin 2 0210G>A, and homocystine levels. If homocystine is abnormal, we may consider sending off for MTHFR mutation. As she currently has an infection and is on Lovenox, we cannot test for protein C or S or Antithrombin III. These may be reserved for an outpatient work-up if no other etiologies for hypercoagulable state are identified. Hypothyroidism present on admission, will manage with IV levothyroxine. Atrial fibrillation present on admission managed with NOAC, holding and bridging curren tly with expectation for percutaneous drainage on Tuesday or Tuesday. Hypertensi on POA follow white blood cell count. Hypokalemia POA, hypophosphatemia POA, wi ll replace. Anemia, suspect chronic, suspect secondary to chronic blood loss ba sed on red blood cell markers. May consider IV iron supplementation during this hospitalization. I directly interviewed the patient, performed rodriguez portions of the examination, p ersonally reviewed pertinent ancillary data/imaging, and supervised the rodriguez [facility] decision-making/plan of care. I agree with the assessment, meds, and plan pr oposed by resident, unless mentioned above in this attending note. Leif Bermudez MD 05/11/20 10:05 AM documented in this encounter Procedure Notes * Dawson Lyles II, DO - 05/10/2020 3:08 AM EST Associated Order(s): 1ED EKG Interpretation 1ED EKG Interpretation Date/Time: 05/10/2020 3:08 AM Performed by: Dawson Lyles II, DO Authorized by: Dawson Lyles II, DO ECG reviewed by ED Physician in the absence of a safety deposit supervisor: yes Interpretation: Interpretation: abnormal Rate: ECG rate assessment: normal Rhythm: Rhythm: sinus rhythm ST segments: ST segments: Normal T waves: T waves: non-specific Other findings: Other findings: prolonged qTc interval documented in this encounter Consult Notes * Fe Campos MBBS - 05/15/2020 2:05 PM EST Associated Order(s): IP CONSULT TO HEMATOLOGY/ONCOLOGY Oncology Consult Note Subjective Reason for Consultation: management recommendations. Requested By: [facility] History of present illness: Carter Vega is a 74 y.o. female with a known past medical history of ulcerative colitis status post Sanchez's procedure for perfo rated diverticulitis in 2006. Patient also has atrial fibrillation and a histor y of DVT for which she takes therapeutic Lovenox. Patient was transferred from [facility] for concerns of liver abscesses first noted in a CT scan done in February 2020 that was drained by IR. Follow-up CAT scan done on April 2020 showed enlargement and nonfunctioning of the kyle in that was placed previously. This drain was removed on 05/09. Patient presen mack again to an outside hospital with worsening referred pain to her right shoul toya blade and right flank. Ultrasound showed a 10 cm collection of fluid in the liver. Patient was transferred to [facility]. Patient was placed on IV antibiotics for concerns of multiple liver abscesses. This was drained by IR on 05/12/2020 with expression of liquefied necrotic tissu e. According to pathology this was concerning for malignancy. Patient has had repeat IR drainage of her liver lesion done today, 05/15/2020. We were consulted for concern of malignancy. Patient is complaining of RUQ pain after her biopsy today. No other complaints at this time. Some what tearful when we discussed our concerns for an underlying malignancy Review of Systems Pertinent items are noted in HPI. Active Problems: Patient Active Problem List Diagnosis Date Noted Hepatic abscess 05/10/2020 Current use of intermission coordinator anticoagulation 05/10/2020 Ulcerative colitis 05/10/2020 Past Medical History: Past Medical History: Diagnosis Date Atrial fibrillation DVT (deep venous thrombosis) Hypertension Thyroid disease Past Surgical History: Past Surgical History: Procedure Laterality Date COLECTOMY/COLON RESECTION THYROIDECTOMY Allergies: No Known Allergies Prior to Admission Medications: Medications Prior to Admission Medication Sig Dispense Refill Last Dose Enoxaparin Sodium 80 MG/0.8ML Subcutaneous Solution (LOVENOX) Inject 80 m g into the skin daily FLUoxetine HCl 20 MG Oral Capsule (PROZAC) Take 20 mg by mouth daily Levothyroxine Sodium 125 MCG Oral Tablet (SYNTHROID) Take 125 mcg by mout h Daily Potassium Chloride Kecia ER 10 MEQ Oral Tablet Extended Release (K-DUR) Ta ke 10 mEq by mouth Two Times Daily sulfaSALAzine 500 MG Oral Tablet (AZULFIDINE) Take 500 mg by mouth Four t imes daily Torsemide 10 MG Oral Tablet (DEMADEX) Take 10 mg by mouth daily traMADol HCl 50 MG Oral Tablet (ULTRAM) Take 50 mg by mouth every 6 (six) hours as needed for Pain Warfarin Sodium 2 MG Oral Tablet (COUMADIN) Take 2 mg by mouth daily Current Medications: Current Facility-Administered Medications Medication Dose Route Frequency Provider Last Rate Last Admin acetaminophen (TYLENOL) tablet 650 mg 650 mg Oral Q6H PRN Marcelino gilbert MD 650 mg at 05/13/20 1804 amoxicillin-clavulanate (AUGMENTIN) 875-125 MG per tablet 1 tablet 1 tab let Oral 2 times per day Dorcas Ramon MD 1 tablet at 05/15/20 09 docusate (COLACE) 50 MG/5ML liquid 100 mg 100 mg Oral BID Marcelino gilbert MD 100 mg at 05/13/20 0925 [START ON 05/16/2020] enoxaparin sodium (LOVENOX) injection 40 mg 40 mg Subcutaneous Daily Dorcas Ramon MD fluoxetine (PROZAC) capsule 20 mg 20 mg Oral Daily Avila Stuart MD 20 mg at 05/15/20 09 guaifenesin (MUCINEX) 12 hr tablet 600 mg 600 mg Oral BID Fransisco Hunt MD 600 mg at 05/15/20 09 levothyroxine (SYNTHROID) tablet 125 mcg 125 mcg Oral Daily Fior Watt 125 mcg at 05/15/20 0514 lidocaine (LIDODERM) 5 % patch 2 patch 2 patch Transdermal Daily Fransisco Hunt MD 2 patch at 05/15/20 09 methocarbamol (ROBAXIN) tablet 500 mg 500 mg Oral 4x Daily Fransisco puente MD 500 mg at 05/15/20 1224 ondansetron (ZOFRAN) injection 4 mg 4 mg Intravenous Q8H PRN Fransisco Mcginnis MD oxyCODONE (ROXICODONE) immediate release tablet 5 mg 5 mg Oral Q4H PRN K valentina Hunt MD Or oxyCODONE (ROXICODONE) immediate release tablet 10 mg 10 mg Oral Q4H PRN Fransisco Hunt MD 10 mg at 05/15/20 0514 oxyCODONE HCl ER (OXYCONTIN) 12 hr tablet 20 mg 20 mg Oral 2 times per d ay Fransisco Hunt MD 20 mg at 05/15/20 0930 polyethylene glycol (MIRALAX) packet 17 g 17 g Oral Daily Marcelino gilbert MD 17 g at 05/10/20 0830 potassium chloride (K-DUR) dissolvable tablet 20 mEq 20 mEq Oral BID Irina Leggett MD 20 mEq at 05/15/20 0929 potassium phosphate (monobasic) (K-PHOS ORIGINAL) tablet 500 mg 500 mg O ral 4 x Daily with Meals & Nightly Fransisco Hunt MD 500 mg at 05/15/20 1224 simethicone (MYLICON) chewable tablet 80 mg 80 mg Oral Q6H PRN Fransisco Mitchell MD sodium phosphate infusion 6 mmol/100 mL (premix) 6 mmol Intravenous Once Fransisco Hunt MD 25 mL/hr at 05/15/20 1220 6 mmol at 05/15/20 1220 sulfaSALAzine (AZULFIDINE) tablet 500 mg 500 mg Oral 4x Daily Avila Stuart MD 500 mg at 05/15/20 1224 torsemide (DEMADEX) tablet 10 mg 10 mg Oral Daily Avila Stuart MD 10 mg at 05/13/20 0923 Family History:No family history on file. Social History: Social History Tobacco Use Smoking status: Not on file Substance Use Topics Alcohol use: Not on file Objective Vitals: Visit Vitals BP 119/65 Pulse 81 Temp 36.6 C (97.9 F) (Oral) Resp 16 Ht 1.473 m (4' 9.99") Wt 61.8 kg (136 lb 3.2 oz) SpO2 100% BMI 28.47 kg/m Intake/Output last 3 shifts: I/O last 3 completed shifts: In: 360 [P.O.:360] Out: - Intake/Output this shift:No intake/output data recorded. Physical Exam Visit Vitals BP 119/65 Pulse 81 Temp 36.6 C (97.9 F) (Oral) Resp 16 Ht 1.473 m (4' 9.99") Wt 61.8 kg (136 lb 3.2 oz) SpO2 100% BMI 28.47 kg/m General Appearance: Alert, cooperative, no distress, appears stated age Head: Normocephalic, without obvious abnormality, atraumatic Eyes: PERRL, conjunctiva/corneas clear, EOM's intact, fundi benign, both eyes Ears: Normal TM's and external ear canals, both ears Nose: Nares normal, septum midline, mucosa normal, no drainage or sinus ten derness Throat: Lips, mucosa, and tongue normal; teeth and gums normal Neck: Supple, symmetrical, trachea midline, no adenopathy; thyroid: no enlargement/tenderness/nodules; no carotid bruit or JVD Back: Symmetric, no curvature, ROM normal, no CVA tenderness Lungs: Clear to auscultation bilaterally, respirations unlabored Chest Wall: No tenderness or deformity Heart: Regular rate and rhythm, S1 and S2 normal, no murmur, rub or gallop Breast Exam: No tenderness, masses, or nipple abnormality Abdomen: Soft, non-tender, bowel sounds active all four quadrants, no masses, no organomegaly Extremities: Extremities normal, atraumatic, no cyanosis or edema Pulses: 2+ and symmetric all extremities Skin: Skin color, texture, turgor normal, no rashes or lesions Lymph nodes: Cervical, supraclavicular, and axillary nodes normal Neurologic: CNII-XII intact, normal strength, sensation and reflexes throughout Data Reviewed Common Labs: CBC: Lab Results Component Value Date WBC 14.7 (H) 05/15/2020 RBC 3.98 (L) 05/15/2020 HGB 10.0 (L) 05/15/2020 HCT 31.4 (L) 05/15/2020 PLT 259 05/15/2020 CMP: Lab Results Component Value Date NA 134 (L) 05/15/2020 K 4.3 05/15/2020 CL 106 05/15/2020 BICARBONATE 20 (L) 05/15/2020 CALCIUM 8.8 05/15/2020 GLUCOSE 98 05/15/2020 BUN 9 05/15/2020 BCR 13 05/15/2020 PROT 6.4 05/13/2020 ALBUMIN 3.1 (L) 05/13/2020 TBILI 0.3 05/13/2020 ALKPHOS 244 (H) 05/13/2020 AST 11 05/13/2020 ALT 13 05/13/2020 GFRAA >90 05/15/2020 GFRNONAA 85 05/15/2020 Lipid Panel: No results found for: CHOL, HDL, LDL, VLDL, NHDL, TRIG Renal Panel: Lab Results Component Value Date NA 134 (L) 05/15/2020 K 4.3 05/15/2020 CL 106 05/15/2020 BICARBONATE 20 (L) 05/15/2020 CALCIUM 8.8 05/15/2020 PHOS 2.8 05/15/2020 GLUCOSE 98 05/15/2020 BUN 9 05/15/2020 CREATININE 0.68 05/15/2020 ALBUMIN 3.1 (L) 05/13/2020 Hepatic Panel: Lab Results Component Value Date ALBUMIN 3.1 (L) 05/13/2020 ALKPHOS 244 (H) 05/13/2020 ALT 13 05/13/2020 AST 11 05/13/2020 PROT 6.4 05/13/2020 TBILI 0.3 05/13/2020 BILIDIR <0.2 05/13/2020 Coagulation: Lab Results Component Value Date INR 1.25 05/15/2020 Cardiac markers: Lab Results Component Value Date TROPONINT <0.01 05/10/2020 Pathology: 05/12/2020 Sections from the liver lesion core biopsy contain cores of coagulative (infarct -like) necrotic cellular debris with ghost-like cell remnants. The appearance an d arrangement of these ghost-like cell remnants is suspicious for tumor but not diagnostic. The lack of viable cells/tissue precludes further immunohistoche mical assessment. Diagnosis LIVER, LESION, CORE BIOPSY: COAGULATIVE (INFARCT-LIKE) NECROTIC CELLULAR DEBRIS WITH FEATURES SUSPICIOUS FOR TUMOR. NO VIABLE CELLS/TISSUE PRESENT. (See Microscopic Description). /pmw Radiology review: US Abdomen 05/11/2020 IMPRESSION: Cholelithiasis. Negative sonographic Prajapati sign. There is a heterogeneous lesion within the right liver lobe measuring approximat jean 10 centimetres. This could represent patient's known abscess CT Abdomen 05/09/2020 ' CT Chest 05/09/2020 Assessment/Plan Principal Problem: Hepatic abscess Active Problems: Current use of snf anticoagulation Ulcerative colitis 74 years old female with multiple liver masses. First felt to be consistent wit h a liver abscess. Pathology is now concerning for an underlying malignancy. N o primary has been identified at this time. Tumor markers are unremarkable exce pt for CA 19-9 that is markedly elevated at 9179. AFP is normal while CEA is 33 .7 These findings are concerning for metastatic disease from a carcinoma of unknown primary. Differentials include cholangiocarcinoma, pancreatic neoplasm, colore ctal cancer. Recent CT scans did not show any obvious masses that would identif y primary lesion. For this patient we recommend completion of the staging with a bone scan. We wo uld also recommend GI consultation and work-up including upper endoscopy(with EU S if needed) and colonoscopy given her known history of ulcerative colitis that puts her at a high risk of colorectal cancer. We would also recommend an MRCP to be done with liver and pancreatic protocol to see if there are any lesions that could account for the metastatic lesions in t he liver. We will also follow-up final pathology from patient's Liver biopsy done today. The previous biopsy was frankly necrotic and no further testing can be done that could help us Identify the source of the primary malignancy. Patient is from the [place] area but would like to have her oncological care [facility]. We will set patient up to be seen by Dr. Aicha Bush after s he is discharged. Thank you for the consult. Discussed with: Patient, Attending and Primary Team Time Spent: 1 hour Patient seen,examined and discussed with attending Dr. Warner, Associated attestation - Aicha Warner MD - 05/15/2020 8:22 PM EST ADDENDUM: I have personally met with and examined the patient Carter Vega. I have reviewed the clinical findings and have discussed the above history, exam f indings, problem list, assessment and plan with the hematology-oncology fellow Lazaro Campos. While seen together on rounds and I agree with the exam findings and treatment plan as documented by the resident. I have reviewed (not edited) above note. 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 bio psy ECOG PS - 2- Ambulatory and capable of all self-care but unable to carry out any work activities; up and about more than 50% of waking hours Past Medical History: Diagnosis Date Atrial fibrillation DVT (deep venous thrombosis) Hypertension Thyroid disease S.H: Social History Socioeconomic History Marital status: Spouse name: Not on file Number of children: Not on file Years of education: Not on file Highest education level: Not on file Occupational History Not on file Social Needs Financial resource strain: Not on file Food insecurity Worry: Not on file Inability: Not on file Transportation needs Medical: Not on file Non-medical: Not on file Tobacco Use Smoking status: Not on file Substance and Sexual Activity Alcohol use: Not on file Drug use: Not on file Sexual activity: Not on file Lifestyle Physical activity Days per week: Not on file Minutes per session: Not on file Stress: Not on file Relationships Social connections Talks on phone: Not on file Gets together: Not on file Attends baptism service: Not on file Active member of club or organization: Not on file Attends meetings of clubs or organizations: Not on file Relationship status: Not on file Intimate partner violence Fear of current or ex partner: Not on file Emotionally abused: Not on file Physically abused: Not on file Forced sexual activity: Not on file Other Topics Concern Not on file Social History Narrative Not on file F.H family history is not on file. Past Surgical History: Procedure Laterality Date COLECTOMY/COLON RESECTION THYROIDECTOMY Current Facility-Administered Medications Medication Dose Route Frequency Provider Last Rate Last Admin acetaminophen (TYLENOL) tablet 975 mg 975 mg Oral Q8H Dorcas Ramon MD 975 mg at 05/15/20 1556 amoxicillin-clavulanate (AUGMENTIN) 875-125 MG per tablet 1 tablet 1 tablet Or al 2 times per day Dorcas Ramon MD 1 tablet at 05/15/20 0929 docusate (COLACE) 50 MG/5ML liquid 100 mg 100 mg Oral BID Marcelino Kaufman MD 100 mg at 05/13/20 0925 enoxaparin sodium (LOVENOX) injection 90 mg 90 mg Subcutaneous Daily Dorcas Ramon MD fluoxetine (PROZAC) capsule 20 mg 20 mg Oral Daily Avila Stuart MD 20 mg at 0929 guaifenesin (MUCINEX) 12 hr tablet 600 mg 600 mg Oral BID Franssico Hunt MD 600 mg at 05/15/20 0929 levothyroxine (SYNTHROID) tablet 125 mcg 125 mcg Oral Daily Avila Stuart MD 12 5 mcg at 05/15/20 0514 lidocaine (LIDODERM) 5 % patch 2 patch 2 patch Transdermal Daily Fransisco puente MD 2 patch at 05/15/20 0929 methocarbamol (ROBAXIN) tablet 500 mg 500 mg Oral 4x Daily Fransisco Hunt MD 500 mg at 05/15/20 170 ondansetron (ZOFRAN) injection 4 mg 4 mg Intravenous Q8H PRN Fior Hale oxyCODONE (ROXICODONE) immediate release tablet 5 mg 5 mg Oral Q4H PRN Fransisco Hunt MD Or oxyCODONE (ROXICODONE) immediate release tablet 10 mg 10 mg Oral Q4H PRN Fransisco Hunt MD 10 mg at 05/15/20 1556 oxyCODONE HCl ER (OXYCONTIN) 12 hr tablet 20 mg 20 mg Oral 2 times per day George Hunt MD 20 mg at 05/15/20 0930 polyethylene glycol (MIRALAX) packet 17 g 17 g Oral Daily Marcelino Kaufman MD 17 g at 05/10/20 0830 potassium chloride (K-DUR) dissolvable tablet 20 mEq 20 mEq Oral BID Reshma Leggett MD 20 mEq at 05/15/20 0929 potassium phosphate (monobasic) (K-PHOS ORIGINAL) tablet 500 mg 500 mg Oral 4 x Daily with Meals & Nightly Fransisco Hunt MD 500 mg at 05/15/20 1556 simethicone (MYLICON) chewable tablet 80 mg 80 mg Oral Q6H PRN Fransisco Hunt MD sulfaSALAzine (AZULFIDINE) tablet 500 mg 500 mg Oral 4x Daily Avila Stuart MD 500 mg at 05/15/20 1701 torsemide (DEMADEX) tablet 10 mg 10 mg Oral Daily Avila Stuart MD 10 mg at 0923 @IMAGES@ Lab Results Component Value Date WBC 14.7 (H) 05/15/2020 HGB 10.0 (L) 05/15/2020 HCT 31.4 (L) 05/15/2020 MCV 78.9 (L) 05/15/2020 PLT 259 05/15/2020 Lab Results Component Value Date ALT 13 05/13/2020 AST 11 05/13/2020 ALKPHOS 244 (H) 05/13/2020 TBILI 0.3 05/13/2020 Lab Results Component Value Date CREATININE 0.68 05/15/2020 BUN 9 05/15/2020 NA 134 (L) 05/15/2020 K 4.3 05/15/2020 CL 106 05/15/2020 Vitals: 05/15/20 1055 05/15/20 1100 05/15/20 1600 05/15/20 1900 BP: 114/61 119/65 96/70 129/76 BP Location: Left arm Left arm Patient Position: Pulse: 79 81 89 81 Resp: 14 16 16 16 Temp: 37.2 C (99 F) 36.9 C (98.4 F) TempSrc: Oral Oral SpO2: 100% 100% 92% 96% Weight: Height: A/P Carter Vega 74 y.o. female with a past medical history significant for ulcera tive colitis history of atrial fibrillation and DVT on anticoagulation with Love nox. Patient was initially followed for concerns for liver abscesses in [facility] and was drained. Scans in April 2020 showed enlargeme nt of the liver lesions, initial biopsy in the [facility] concerning for m alignancy and a repeat biopsy pending. CT of the chest abdomen and pelvis done outside is concerning for enlarging liver lesions and no other evidence of metas tatic disease. Bone scan has been requested. MRI of the brain needs to be requ ested. CA 19-9 is significantly elevated CEA is mildly elevated. Given the con cern for the liver lesions significant elevations of CA 19-9 mild elevation of C EA and in the event that we are not able to establish the origin of the malignan cy we recommend doing endoscopy and colonoscopy and MRCP. The differential diag nosis are cholangiocarcinoma versus metastatic colorectal or upper GI malignancy . We will continue to follow. Overall amount of data reviewed, level of risk, complexity and medical decision making is: sami Warner Head Of Partner Developmentpacking room supervisor Department of Hematology Oncology Pager number- [phone] Office Number- [phone] * Zandra Krueger NP - 05/14/2020 10:14 AM EST Associated Order(s): IP CONSULT TO PALLIATIVE CARE Palliative Care Consultation Note Subjective: Reason for Consultation: Family Counseling . Requested By: Ronaldo Ball MD/ Jamilah Meadows MD Outpatient Physicians: Roshan Long MD History of present illness: Carter Vega is a 74 y.o. female seen today for fa cilitating communication. Carter Vgea has a past medical history significant for ulcerative colitis, perf orated diverticulitis s/p Sanchez's procedure in 2006, incisional hernia repair with mesh in 2009, A. Fib, DVT, PE (on Eliquis) and thyroidectomy. She initially presented to [facility] but was transferred to [facility] for hepatobiliar y surgery evaluation of a persistent liver abscess/mass that was first noted in February 2020. It was aspirated and drained in IR at that time. CT scan in [facility] er 2019 revealed enlargement of this area and a drain was placed. After one week , the drain was noted to be non-functional and therefore removed. Persistent manolo n from the right posterior neck radiating down her shoulder blade to the right a bdomen and flank prompted presentation to [facility] and subsequent transfer to [facility] after a CT shower a 10 cm fluid collection in the liver. On admission, there were concerns for possible cholelithiasis with presumed cyst ic duct obstruction, causing concerns for the possibility of acute cholecystitis with contamination of liver bed causing abscess. A hypercoagulability workup wa s done given history of DVT and PE. Infectious disease following and recommended biopsy/sample from the drainage of the liver collection due to concerns of infe ction or malignancy. IR attempted drainage 05/12 but aspiration yielded scant se rosanguinous fluid and core needle biopsy was sent. Pathology pending at this ti oh. CA 19-9 Serum and CEA elevated. History obtained from chart and confirmed with patient. Advanced Directives: Full code Active Problems: Patient Active Problem List Diagnosis Date Noted Hepatic abscess 05/10/2020 Current use of snf anticoagulation 05/10/2020 Ulcerative colitis 05/10/2020 Past Medical History: Past Medical History: Diagnosis Date Atrial fibrillation DVT (deep venous thrombosis) Hypertension Thyroid disease Past Surgical History: Past Surgical History: Procedure Laterality Date COLECTOMY/COLON RESECTION THYROIDECTOMY Allergies: No Known Allergies Prior to Admission Medications: Medications Prior to Admission Medication Sig Dispense Refill Last Dose Enoxaparin Sodium 80 MG/0.8ML Subcutaneous Solution (LOVENOX) Inject 80 m g into the skin daily FLUoxetine HCl 20 MG Oral Capsule (PROZAC) Take 20 mg by mouth daily Levothyroxine Sodium 125 MCG Oral Tablet (SYNTHROID) Take 125 mcg by mout h Daily Potassium Chloride Kecia ER 10 MEQ Oral Tablet Extended Release (K-DUR) Ta ke 10 mEq by mouth Two Times Daily sulfaSALAzine 500 MG Oral Tablet (AZULFIDINE) Take 500 mg by mouth Four t imes daily Torsemide 10 MG Oral Tablet (DEMADEX) Take 10 mg by mouth daily traMADol HCl 50 MG Oral Tablet (ULTRAM) Take 50 mg by mouth every 6 (six) hours as needed for Pain Warfarin Sodium 2 MG Oral Tablet (COUMADIN) Take 2 mg by mouth daily Current Medications: Current Facility-Administered Medications Medication Dose Route Frequency Provider Last Rate Last Admin acetaminophen (TYLENOL) tablet 650 mg 650 mg Oral Q6H PRN Marcelino gilbert MD 650 mg at 05/13/20 1804 amoxicillin-clavulanate (AUGMENTIN) 875-125 MG per tablet 1 tablet 1 tab let Oral 2 times per day Dorcas Ramon MD 1 tablet at 05/14/20 1009 docusate (COLACE) 50 MG/5ML liquid 100 mg 100 mg Oral BID Marcelino gilbert MD 100 mg at 05/13/20 0925 enoxaparin sodium (LOVENOX) injection 40 mg 40 mg Subcutaneous Daily George Hunt MD 40 mg at 05/14/20 1008 fluoxetine (PROZAC) capsule 20 mg 20 mg Oral Daily Avila Stuart MD 20 mg at 05/14/20 1008 guaifenesin (MUCINEX) 12 hr tablet 600 mg 600 mg Oral BID Fransisco Hunt MD 600 mg at 05/14/20 1008 levothyroxine (SYNTHROID) tablet 125 mcg 125 mcg Oral Daily Fior Watt 125 mcg at 05/14/20 0437 lidocaine (LIDODERM) 5 % patch 2 patch 2 patch Transdermal Daily Fransisco Hunt MD 2 patch at 05/13/20 0930 methocarbamol (ROBAXIN) tablet 500 mg 500 mg Oral 4x Daily Fransisco puente MD 500 mg at 05/14/20 1009 ondansetron (ZOFRAN) injection 4 mg 4 mg Intravenous Q8H PRN Fransisco Mcginnis MD oxyCODONE (ROXICODONE) immediate release tablet 5 mg 5 mg Oral Q4H PRN K valentina Hunt MD Or oxyCODONE (ROXICODONE) immediate release tablet 10 mg 10 mg Oral Q4H PRN Fransisco Hunt MD 10 mg at 05/14/20 1009 polyethylene glycol (MIRALAX) packet 17 g 17 g Oral Daily Marcelino gilbert MD 17 g at 05/10/20 0830 potassium chloride (K-DUR) dissolvable tablet 20 mEq 20 mEq Oral BID Irina Leggett MD 20 mEq at 05/14/20 1009 potassium phosphate (monobasic) (K-PHOS ORIGINAL) tablet 500 mg 500 mg O ral 4 x Daily with Meals & Nightly Fransisco Hunt MD 500 mg at 05/13/20 2149 simethicone (MYLICON) chewable tablet 80 mg 80 mg Oral Q6H PRN Fransisco Mitchell MD sodium phosphate infusion 6 mmol/100 mL (premix) 6 mmol Intravenous Q2H Fransisco Hunt MD sulfaSALAzine (AZULFIDINE) tablet 500 mg 500 mg Oral 4x Daily Avila Stuart MD 500 mg at 05/14/20 1008 torsemide (DEMADEX) tablet 10 mg 10 mg Oral Daily Avila Stuart MD 10 mg at 05/13/20 0923 Family History: Denies family history of cancer. Social History: Former smoker, quit about 20 years ago. Denies alcohol or illici t drug use. Retired. Premorbid Functional Status: Independent and limited in the community. Son Roshan does grocery shopping for her due to COVID pandemic. Independent with all ADLs and IADLs. Support System and Family Circumstances (ie potential caregivers): lives alone. Eh Islas lives a few minutes away. . Home environment/Accessibility: 2-story house, number of outside stairs: ~3, number of inside stairs: 13, hussain castro on 2 floor Review of Systems Constitutional: positive for fatigue and weight loss Respiratory: negative for cough and dyspnea on exertion Cardiovascular: negative for exertional chest pressure/discomfort and positive f or chest pain on right side radiating from RUQ Gastrointestinal: positive for abdominal pain and diarrhea Hematologic/lymphatic: positive for easy bruising and anticoagulant use with his tory of PE and DVT Musculoskeletal:positive for arthralgias and myalgias Endocrine: positive for thyroidectomy Objective: Vitals: Visit Vitals BP 127/77 (BP Location: Right arm, Patient Position: Lying) Pulse 90 Temp 37.5 C (99.5 F) (Oral) Resp 16 Ht 1.473 m Wt 61.8 kg (136 lb 3.2 oz) SpO2 92% BMI 28.47 kg/m Intake/Output last 3 shifts: I/O last 3 completed shifts: In: 600 [P.O.:600] Out: - Intake/Output this shift:No intake/output data recorded. Pain: 4-5/10 in RUQ, radiating to right shoulder, shoulder blade, and intermitte nt shooting pain down right leg to toes. 5/10 is tolerable at rest. Physical Exam General appearance: alert, cooperative and no distress Lungs: clear to auscultation bilaterally Heart: regular rate and rhythm and S1, S2 normal Abdomen: normal findings: bowel sounds normal and abnormal findings: tenderness mild in the RUQ and in the right flank and abdominal hernia Skin: temperature normal and texture normal Neurologic: Alert and oriented X 3, normal strength and tone. Normal symmetric r eflexes. Normal coordination and gait Data Reviewed Common Labs: CBC: Lab Results Component Value Date WBC 15.8 (H) 05/14/2020 RBC 4.02 (L) 05/14/2020 HGB 10.1 (L) 05/14/2020 HCT 31.8 (L) 05/14/2020 PLT 241 05/14/2020 CMP: Lab Results Component Value Date NA 133 (L) 05/14/2020 K 4.4 05/14/2020 CL 104 05/14/2020 BICARBONATE 23 05/14/2020 CALCIUM 9.4 05/14/2020 GLUCOSE 103 05/14/2020 BUN 10 05/14/2020 BCR 13 05/14/2020 PROT 6.4 05/13/2020 ALBUMIN 3.1 (L) 05/13/2020 TBILI 0.3 05/13/2020 ALKPHOS 244 (H) 05/13/2020 AST 11 05/13/2020 ALT 13 05/13/2020 GFRAA >90 05/14/2020 GFRNONAA 83 05/14/2020 Hepatic Panel: Lab Results Component Value Date ALBUMIN 3.1 (L) 05/13/2020 ALKPHOS 244 (H) 05/13/2020 ALT 13 05/13/2020 AST 11 05/13/2020 PROT 6.4 05/13/2020 TBILI 0.3 05/13/2020 BILIDIR <0.2 05/13/2020 Coagulation: Lab Results Component Value Date INR 1.16 05/10/2020 CA 19-9: 9179 CEA: 33.7 Xr Chest Frontal Only Result Date: 05/13/2020 INDICATION: Productive cough TECHNIQUE: XR CHEST FRONTAL ONLY [id number], 05/13/2020 8:42 AM, 85 degrees upright. COMPARISON: Side CT head thorax and CT abdomen/pel vis dated 05/09/2020.. FINDINGS: There are no indwelling lines, catheters, or fo reign bodies. Stable elevation of the right hemidiaphragm with associated right lung volume loss. The cardiomediastinal contours are stable. There is no evidenc e of pleural disease. The lungs are clear. IMPRESSION: Stable elevation of the right hemidiaphragm with associated right jeanette ng volume loss. Us Abdomen Limited Result Date: 05/11/2020 PROCEDURE INFORMATION: Exam: US Abdomen, Limited; Right Upper Quadrant Exam date and time: 05/11/2020 9:57 PM Age: 74 years old Clinical indication: Abscess of liver; Abnormal findings; Abnormal radiologic finding of the abdomen; Radiologic exam and body structure: Cta thorax, abd/pelvis from outside facility; Prior villaseñor rgery; Surgery date: Post-operative (0-2 days); Surgery type: Abscess drainage o f liver; Additional info: Assess for liver abscess/other type of lesion TECHNIQU E: Imaging protocol: US abdomen. Real time ultrasound with image documentation. Limited exam focused on the right upper quadrant. COMPARISON: If prior CT become s available, a comparison can be made FINDINGS: Liver: Hepatic heterogeneity. Th ere is a hypoechoic density within the left liver lobe measuring 1.7 x 1.3 x 1.7 cm. There was a larger lesion within the right liver lobe measuring approximate ly 9.9 x 8.7 x 9.2 centimetres. This may represent patient's known hepatic absce ss. Gallbladder: Gallbladder is somewhat hydropic. Negative sonographic Prajapati s ign. Cholelithiasis is noted. Common bile duct: Common bile duct measures approx imately 4 mm Pancreas: Pancreas obscured secondary to overlying bowel gas Right kidney: Right kidney measures 11.2 centimetres and appears unremarkable Portal v enous: Hepatopetal portal venous flow IMPRESSION: Cholelithiasis. Negative sonog raphic Prajapati sign. There is a heterogeneous lesion within the right liver lobe measuring approximately 10 centimetres. This could represent patient's known abs cess THIS DOCUMENT HAS BEEN ELECTRONICALLY SIGNED BY DAWSON HERNANDEZ MD Assessment/Plan: Principal Problem: Hepatic abscess Active Problems: Current use of intermission coordinator anticoagulation Ulcerative colitis Carter Vega is a 74 year old female with a PMH of ulcerative colitis, perforate d diverticulitis s/p Sanchez's procedure in 2006, incisional hernia repair with mesh in 2009, A. Fib, DVT, PE (on Eliquis) and thyroidectomy who presented as a transfer from [facility] for hepatobiliary surgery evaluation of a persi stent liver abscess/mass. ID following and IR attempted drainage on 05/12, but o nly aspirated scant serosanguineous fluid. Core needle biopsy taken due to shelli rns of necrotic tumor. Pathology pending. Met with Carter at bedside. Palliative Care Service was introduced as a support se rvice to assist with communication, symptom management, as well as discussions r egarding goals of care and directives moving forward. She provided accurate insi ght into her hospitalization and provided a detailed history of the events prior to and during this hospital course. She is eager to hear pathology results once available and endorses anxiety while waiting. She shares that she has no family history of cancer but notes that she has been on immunosuppressants for years d ue to her ulcerative colitis. If the pathology is positive for malignancy, she i s interested in pursuing chemotherapy or any treatment available. She describes her pain as "pressure" in her RUQ that radiates to her right shoul toya and scapula and often causes migraines. Has associated intermittent "shootin g pains" that initiate in her RUQ and radiate down her right leg into her toes. She has been taking 10 mg oxycodone and acetaminophen 650 mg as needed which has brought the pain to a 4-5/10. She reports that this is intermittently tolerable and understands that it will be unlikely to relieve the pain entirely. Has trie d heat in the past without relief. She is hesitant to take narcotics due to fear s of "becoming addicted." Discussed that narcotics are medically warranted if th ey provide relief due to chronic nature of this pain and the unlikeliness of it resolving in the near future. She is hesitant to be discharged home until the pa in is well-controlled. Unable to add NSAIDs due to anticoagulation use. Decadron may be beneficial for visceral pain but is contraindicated due to concerns of active infection. Discus sed the option of more frequent dosing of the oxycodone or transitioning to oxyc ontin with oxycodone for breakthrough. She is agreeable to starting ER medicatio ns. Recommend starting Oxycontin 20 mg BID tonight and continuing with oxycodone 5 or 10 mg Q4h PRN for breakthrough pain. Advance care plannin minutes Discussed health care proxy form and Carter produced a completed form from her pur se. However, it was not valid as dates of her signature and of the witnesses dif fered. New health care proxy form completed identifying her son Roshan Vega as the primary proxy. Copy placed in chart, faxed to medical record s, and original provided to patient. Discussed code status and Carter would like t o remain FULL CODE at this time. Offered to call her son Roshan to provide updates and answer any questions he may have, but she declined saying that she speaks with him frequently and has been keeping him updated. Discussed with: Patient and Primary Team Time Spent Counseling/Coordination of Care: 1 Hour Total time spent with patient: 30 Minutes Complexity level: Zandra Rosario, FAMILY DAY CARER Associated attestation - Heather Frye MD - 05/14/2020 2:31 PM EST I saw and evaluated the patient. Discussed with the FAMILY DAY CARER and agree with her findi ngs and plans with the following additions/exceptions. She is having swings in pain between prn doses (she's been taking about q6). Di scussed potential benefit of long acting opioid and she was open to trying this. Given needs over last 24 hours, recommend Oxycontin 20 mg BID with oxy 5-10 mg q4 prn for breakthrough. * Mary Anne Jeffrey, DO - 05/12/2020 9:22 AM EST Associated Order(s): IP CONSULT TO INFECTIOUS DISEASES Infectious Disease Consult Note: Reason for Consult/Chief Complaint: liver abscess. Requested By: Simone Meadows MD Performed By: Jose De La Garza (Infectious Diseases Fellow) under the direct superv ision of the ID Attending listed below. Subjective: History of present illness: Ms. Carter Vega is a 74 y.o. year old female with a past medical history of U C on entyvio infusion, perforated diverticulitis 2006 s/p Sanchez procedure, her dominique repair w/ mesh 2009, AFIB, DVT on Lovenox. Patient presented to the hospital on 05/10/2020 with as transfer from [facility] for hepatobiliary surgery consultation for persistent liver abscess, first s een February 2020, aspirated, enlargement noted in Apr 2020, drain placed, remove d 05-09 as non-functional. Pt p/w persistent pain to OSH, at R neck, shoulder to R abdomen and R flank area, CT 05-09-2020 showing 10cm collection at liver, steve e as on 05-06-2020 but Acute hemorrhage and small foci of gas have developed in the fluid collection. 2 more 1cm and 1.3 cm collection at liver as well stable c /w previous 05-06 but new c/w 02-18-2020. GB distended w/ stoned but w/o strandin g. Labs: WBC 14.8 w/ L shift, LFTs wnl creat wnl 0.76, Blood cx 05-10, covid 19 NGT D pt afebrile. I contacted [facility] as well as pt had received all her care there but it a ppeared the there was an order for liver drain cytology but the sample was not c ollected and the only available micro data is blood and urine cx from 05-09, whi ch are negative. Pt was stared on Zosyn, plan to drain the abscess. Additional Exposure History: Indwelling hardware: bl knee replacements, mesh at abd hernia Immunosuppression: yes History of incarceration: No. Travel History/Exposures: no Living Situation: athome Occupational History/Exposures: NA Hobbies/Exposures: no. Pets/Animal Exposure:pt's son has dogs Sexual History/Exposures: NA On my exam, patient said he main concern was the RUQ pain that is sharp and stab angeles today, but said over previous days, before the hospitalization was having c hills and fevers up to 103.2F, also WT loss of 10 lb over last 2-3 months d/t po or PO intake d/t abdominal pain with food. Denied diarrhea, Pt denied N, V The ROS, PMH, PSH, medication list, allergies, social/family history were review ed Review of Systems: FULL 10-points review of systems was obtained and was negative except the positi ve findings mentioned in the HPI above. Past Medical History: Past Medical History: Diagnosis Date Atrial fibrillation DVT (deep venous thrombosis) Hypertension Thyroid disease Past Surgical History: Past Surgical History: Procedure Laterality Date COLECTOMY/COLON RESECTION THYROIDECTOMY Home medications: Home Medications Medication Sig Enoxaparin Sodium 80 MG/0.8ML Subcutaneous Solution (LOVENOX) Inject 80 mg into the skin daily FLUoxetine HCl 20 MG Oral Capsule (PROZAC) Take 20 mg by mouth daily Levothyroxine Sodium 125 MCG Oral Tablet (SYNTHROID) Take 125 mcg by mouth Daily Potassium Chloride Kecia ER 10 MEQ Oral Tablet Extended Release (K-DUR) Take 10 m Eq by mouth Two Times Daily sulfaSALAzine 500 MG Oral Tablet (AZULFIDINE) Take 500 mg by mouth Four times da rodo Torsemide 10 MG Oral Tablet (DEMADEX) Take 10 mg by mouth daily traMADol HCl 50 MG Oral Tablet (ULTRAM) Take 50 mg by mouth every 6 (six) hours as needed for Pain Warfarin Sodium 2 MG Oral Tablet (COUMADIN) Take 2 mg by mouth daily Allergies: No Known Allergies Current Medications: docusate 100 mg Oral BID [START ON 05/13/2020] enoxaparin 40 mg Subcutaneous Daily fluoxetine 20 mg Oral Daily levothyroxine 125 mcg Oral Daily piperacillin-tazobactam 3.375 g Intravenous Q8H polyethylene glycol 17 g Oral Daily potassium chloride 20 mEq Oral BID sulfaSALAzine 500 mg Oral 4x Daily torsemide 10 mg Oral Daily acetaminophen (TYLENOL) tablet, calcium gluconate, magnesium sulfate, ondansetro n, oxyCODONE FOLLOWED BY [START ON 05/13/2020] oxyCODONE, potassium chloride OR potassium chloride, potassium phosphate OR potassium phosphate, sodi um phosphate OR sodium phosphate lactated ringers 75 mL/hr (05/12/20 0659) Social History: Social History Socioeconomic History Marital status: Spouse name: Not on file Number of children: Not on file Years of education: Not on file Highest education level: Not on file Occupational History Not on file Social Needs Financial resource strain: Not on file Food insecurity Worry: Not on file Inability: Not on file Transportation needs Medical: Not on file Non-medical: Not on file Tobacco Use Smoking status: Not on file Substance and Sexual Activity Alcohol use: Not on file Drug use: Not on file Sexual activity: Not on file Lifestyle Physical activity Days per week: Not on file Minutes per session: Not on file Stress: Not on file Relationships Social connections Talks on phone: Not on file Gets together: Not on file Attends baptism service: Not on file Active member of club or organization: Not on file Attends meetings of clubs or organizations: Not on file Relationship status: Not on file Intimate partner violence Fear of current or ex partner: Not on file Emotionally abused: Not on file Physically abused: Not on file Forced sexual activity: Not on file Other Topics Concern Not on file Social History Narrative Not on file Family History: Reviewed an dnon-contributory, no FH of GI cancers. Objective: Vital signs: Vitals: 05/12/20 0610 05/12/20 0615 05/12/20 0800 05/12/20 0852 BP: 119/73 121/86 116/58 BP Location: Left arm Left arm Patient Position: Lying Lying Pulse: 87 79 Resp: (!) 24 18 (!) 29 Temp: 36.9 C (98.4 F) TempSrc: Oral SpO2: 93% 94% Weight: Height: Tmax: Temp (24hrs), Av.9 C (98.4 F), Min:36.7 C (98.1 F), Max:37.1 C (98.8 F) Physical Exam: General: obese WF, in no acute distress. HEENT: PERRLA, EOMI, MMM Neck: JVP does not appear elevated, No Carotid Bruits Cardiac: RRR, Normal S1 & S2. No m/r/g. Respiratory/Chest: Not in distress, Good air entry. CTA B/L, No w/r/r Abdomen: obese but nondistended, BS present, soft, slight RUQ tenderness, no re bound Extremities: Warm and well perfused. Non-pitting edema R leg > L leg (DVT was at R leg). Peripheral pulses symmetric. Neuro: AO x3, no focal neurological deficits appreciated. Skin: intact, no rashes appreciated. Lines & Catheters: All lines and catheters were examined and no signs of infection, such as erythem a, tenderness, discharge, were observed. Peripheral IV 05/10/20 Right Antecubital (Active) Site Assessment Clean;Dry;Intact 05/12/20 06 Line Status Flushed;Infusing 05/12/20 0600 Line Care Connections checked and tightened 05/11/20 1900 Dressing Type Tegaderm 05/12/20 06 Dressing Status Clean;Dry;Intact 05/12/20 0600 Number of days: 2 Data Review: Pertinent lab/imaging data was reviewed by me today as follows: Pertinent Laboratory Data: Recent Labs Lab 05/10/20 0248 05/11/20 0735 05/12/20 0359 HGB 10.3* 11.3* 10.4* HCT 32.4* 36.0 33.1* WBC 14.8* 13.8* 13.8* PLT 253 289 304 Lab Results Component Value Date NEUTOPHILPCT 72 05/12/2020 LYMPHOPCT 7 05/12/2020 MONOPCT 13 05/12/2020 EOSPCT 7 05/12/2020 Lab Results Component Value Date NA 137 05/12/2020 K 4.5 05/12/2020 CL 106 05/12/2020 BICARBONATE 25 05/12/2020 GLUCOSE 82 05/12/2020 BUN 9 05/12/2020 CREATININE 0.76 05/12/2020 Lab Results Component Value Date PROT 5.8 (L) 05/12/2020 ALBUMIN 2.7 (L) 05/12/2020 AST 13 05/12/2020 ALT 13 05/12/2020 TBILI 0.3 05/12/2020 ALKPHOS 186 (H) 05/12/2020 Lab Results Component Value Date INR 1.16 05/10/2020 Pertinent Microbiology: see HPI for summary of relevant microbiology results. See below for susceptibility reports of relevant microbiology cultures, if appli cable. Imaging and other investigations: Us Abdomen Limited Result Date: 05/11/2020 PROCEDURE INFORMATION: Exam: US Abdomen, Limited; Right Upper Quadrant Exam date and time: 05/11/2020 9:57 PM Age: 74 years old Clinical indication: Abscess of liver; Abnormal findings; Abnormal radiologic finding of the abdomen; Radiologic exam and body structure: Cta thorax, abd/pelvis from outside facility; Prior villaseñor rgery; Surgery date: Post-operative (0-2 days); Surgery type: Abscess drainage o f liver; Additional info: Assess for liver abscess/other type of lesion TECHNIQU E: Imaging protocol: US abdomen. Real time ultrasound with image documentation. Limited exam focused on the right upper quadrant. COMPARISON: If prior CT become s available, a comparison can be made FINDINGS: Liver: Hepatic heterogeneity. Th ere is a hypoechoic density within the left liver lobe measuring 1.7 x 1.3 x 1.7 cm. There was a larger lesion within the right liver lobe measuring approximate ly 9.9 x 8.7 x 9.2 centimetres. This may represent patient's known hepatic absce ss. Gallbladder: Gallbladder is somewhat hydropic. Negative sonographic Prajapati s ign. Cholelithiasis is noted. Common bile duct: Common bile duct measures approx imately 4 mm Pancreas: Pancreas obscured secondary to overlying bowel gas Right kidney: Right kidney measures 11.2 centimetres and appears unremarkable Portal v enous: Hepatopetal portal venous flow IMPRESSION: Cholelithiasis. Negative sonog raphic Prajapati sign. There is a heterogeneous lesion within the right liver lobe measuring approximately 10 centimetres. This could represent patient's known abs cess THIS DOCUMENT HAS BEEN ELECTRONICALLY SIGNED BY DAWSON HERNANDEZ MD Assessment: Carter Vega is a 74 y.o. female Cathryn PMH of UC on,entyvio infusion sulfadiazine, s/p diverticular perf 2006, s/p jose ramon ia repair w/ mesh 2009, PE, DVT 2009, recurred Admitted for unresolving liver abscess, never received long-term ABX, [facility] HSP: only blood and urine cx: negative ABX: on zosyn since 05-09 There are several possible explanations for pt's liver findings, on the top of t he differential are infection and malignancy (pt reports WT loss), less likely i s hemorrhage (but pt was NOT on AC at time of first presentation). We need mater ial from the suspected abscess for culture as well as cytology. Agree with Zosyn broad spectrum coverage until cx results. Pt has not been on long course of ABX and this in itself may be the reason why her liver collection did not resolve. Unfortunately, [facility] did not have any culture or cytology results from p reviously obtained samples when pt had a drain in place and we will have to be g uided only by samples obtained at our hospital. Recommendations: # Suspected liver abscess Continue with IV Zosyn 3.375 g q8 hrs extended infusions Pleasde obtain biopsy/sample from drainage of the liver collection placement and send for culture and gram stains as well as for cytology / pathology analyses The patient was seen and discussed with ID Attending MARY ANNE Cuellar who jaden grees with the above assessment and plan. 05/12/2020 9:22 AM Jose De La Garza M.D., Ph.D. Infectious Diseases Fellow ATTENDING ATTESTATION I reviewed the chart and available clinical laboratory, radiologic, and microbio logic test results. I reviewed the hospital course to date and applicable progre ss notes, consults, and other relevant documentation. I met with the patient and completed a history and physical examination. I reviewed the case with the ID Jacy suarez and other ID consult team members. I agree with the diagnostic and treatme nt plan as detailed in the Fellow's note in addition to my thoughts below. Clinical and radiographic workup thus far favors liver abscess, agree with empir ic pip-tazo, await drainage cultures and cytology, anticipate will need prolonge d IV antibiotic therapy for treatment Thank you for allowing us to see this patient in consultation. Please do not hes itate to call for further questions or concerns. documented in this encounter ED Notes * Anaya Harmon NP - 05/10/2020 2:40 AM EST History No Known Allergies Chief Complaint Patient presents with Abdominal Pain There is no immunization history on file for this patient. 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 Carter states she developed some right si ded discomfort yesterday that progressively worsened and became accompanied by f ever, chills and nausea. Her LBM was 5 days prior. 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 Past Medical History: Diagnosis Date Atrial fibrillation DVT (deep venous thrombosis) Hypertension Thyroid disease Past Surgical History: Procedure Laterality Date COLECTOMY/COLON RESECTION THYROIDECTOMY No family history on file. Social History Tobacco Use Smoking status: Not on file Substance Use Topics Alcohol use: Not on file Drug use: Not on file Social Screening Review of Systems Constitutional: Positive for fatigue and fever. Negative for activity change, ap petite change, chills, diaphoresis and unexpected weight change. HENT: Negative for congestion, dental problem, drooling, ear pain, facial swelli ng, mouth sores, nosebleeds, rhinorrhea, sinus pressure, sneezing, sore throat, tinnitus, trouble swallowing and voice change. Respiratory: Negative for cough, chest tightness, shortness of breath, wheezing and stridor. Cardiovascular: Negative for chest pain, palpitations and leg swelling. Gastrointestinal: Positive for abdominal pain, constipation and nausea. Negative for abdominal distention, anal bleeding, blood in stool, diarrhea, rectal pain and vomiting. Genitourinary: Negative for decreased urine volume, difficulty urinating, dyspar eunia, dysuria, enuresis, flank pain, frequency, genital sores, hematuria, menst rual problem, pelvic pain, urgency, vaginal bleeding, vaginal discharge and vagi nal pain. Musculoskeletal: Negative for arthralgias, back pain, gait problem, joint swelli ng, myalgias, neck pain and neck stiffness. Skin: Negative for color change, pallor, rash and wound. Neurological: Negative for dizziness, light-headedness and headaches. Hematological: Negative for adenopathy. Does not bruise/bleed easily. All other systems reviewed and are negative. Physical Exam Visit Vitals BP 104/61 (BP Location: Left arm, Patient Position: Lying, Cuff size: Regular) Pulse 72 Temp 36.4 C (Oral) Resp 18 Ht 1.473 m Wt 74.4 kg SpO2 94% BMI 34.28 kg/m Physical Exam Vitals signs and nursing note reviewed. Constitutional: General: She is awake. She is not in acute distress. Appearance: Normal appearance. She is well-developed. She is ill-appearing an d toxic-appearing. She is not diaphoretic. Interventions: She is not intubated. HENT: Head: Normocephalic and atraumatic. Nose: Nose normal. Mouth/Throat: Mouth: Mucous membranes are moist. Eyes: Conjunctiva/sclera: Conjunctivae normal. Pupils: Pupils are equal, round, and reactive to light. Cardiovascular: Rate and Rhythm: Normal rate and regular rhythm. No extrasystoles are presen t. Chest Wall: PMI is not displaced. Pulses: Normal pulses. Dorsalis pedis pulses are 2+ on the right side and 2+ on the left side. Heart sounds: Normal heart sounds, S1 normal and S2 normal. Heart sounds not distant. No murmur. No friction rub. No gallop. No S3 or S4 sounds. Pulmonary: Effort: Pulmonary effort is normal. No tachypnea, bradypnea, accessory muscle usage, prolonged expiration, respiratory distress or retractions. She is not in tubated. Breath sounds: Decreased air movement present. No stridor. Examination of the right-lower field reveals decreased breath sounds. Examination of the left-lower field reveals decreased breath sounds. Decreased breath sounds present. No whe ezing, rhonchi or rales. Chest: Chest wall: No tenderness. Abdominal: General: Abdomen is protuberant. Palpations: Abdomen is soft. Tenderness: There is abdominal tenderness in the right upper quadrant. Musculoskeletal: Normal range of motion. General: No tenderness. Skin: General: Skin is warm and dry. Coloration: Skin is not pale. Findings: No erythema or rash. Neurological: Mental Status: She is alert and oriented to person, place, and time. Psychiatric: Behavior: Behavior normal. Behavior is cooperative. Thought Content: Thought content normal. Judgment: Judgment normal. ED Course (Entries in this section may reflect care that occurred after patient hand-off a nd are the responsibility of that provider as indicated by their initials.) Procedures MDM Number of Diagnoses or Management Options Hepatic abscess: Diagnosis management comments: Dx- Hepatic abscess Plan- Admit to Surgery. Patient was evaluated in the ED for ruq pain, nausea and vomiting with recent findings concerning for large 9cm by 10 cm hepatic abscess. Labs and outside imaging were reviewed. Repeat lab obtained. Carter was medicated for pain, given IV zosyn in the ED. Surgery consulted, they will admit to their service for further evaluation and care. Labs Reviewed WOUND CULTURE - Abnormal; Notable for the following components: Gram Stain (*) Culture/Results (*) All other components within normal limits CBC AND DIFFERENTIAL - Abnormal; Notable for the following components: White Blood Cell 14.8 (*) Hemoglobin 10.3 (*) Hematocrit 32.4 (*) Mean Cell Volume 78.5 (*) Mean Cell Hemoglobin 24.8 (*) Mean Cell Hgb Conc 31.6 (*) Red Cell Dist Width 16.8 (*) Abs Neutrophil 10.99 (*) Abs Monocyte 1.84 (*) Abs Eosinophil 0.59 (*) All other components within normal limits BASIC METABOLIC PANEL - Abnormal; Notable for the following components: Potassium 3.3 (*) Anion Gap 7 (*) Calcium 7.9 (*) All other components within normal limits HEPATIC FUNCTION PANEL A - Abnormal; Notable for the following components: Albumin 2.7 (*) Alkaline Phosphatase 138 (*) Total Protein 5.5 (*) All other components within normal limits URINALYSIS WITH MICROSCOPIC - Abnormal; Notable for the following components: Specific [place] >1.060 (*) All other components within normal limits TSH - Abnormal; Notable for the following components: TSH 0.173 (*) All other components within normal limits PROBNP - Abnormal; Notable for the following components: proBNP 521 (*) All other components within normal limits PROTIME INR - Abnormal; Notable for the following components: PT Patient 15.0 (*) All other components within normal limits PARTIAL THROMBOPLASTIN TIME (PTT) - Abnormal; Notable for the following componen ts: PTT 33.4 (*) All other components within normal limits PHOSPHORUS LEVEL - Abnormal; Notable for the following components: Phosphorus 2.4 (*) All other components within normal limits CBC AND DIFFERENTIAL - Abnormal; Notable for the following components: White Blood Cell 13.8 (*) Hemoglobin 11.3 (*) Mean Cell Volume 79.7 (*) Mean Cell Hemoglobin 25.1 (*) Mean Cell Hgb Conc 31.4 (*) Red Cell Dist Width 17.1 (*) Abs Neutrophil 10.52 (*) Abs Lymphocyte 0.59 (*) Abs Monocyte 1.66 (*) Abs Eosinophil 0.91 (*) All other components within normal limits PHOSPHORUS LEVEL - Abnormal; Notable for the following components: Phosphorus 2.4 (*) All other components within normal limits HEPATIC FUNCTION PANEL A - Abnormal; Notable for the following components: Albumin 2.7 (*) Alkaline Phosphatase 193 (*) All other components within normal limits CBC AND DIFFERENTIAL - Abnormal; Notable for the following components: White Blood Cell 13.8 (*) Hemoglobin 10.4 (*) Hematocrit 33.1 (*) Mean Cell Volume 79.1 (*) Mean Cell Hemoglobin 24.9 (*) Mean Cell Hgb Conc 31.4 (*) Red Cell Dist Width 16.8 (*) Abs Neutrophil 9.91 (*) Abs Lymphocyte 0.95 (*) Abs Monocyte 1.85 (*) Abs Eosinophil 1.00 (*) All other components within normal limits BASIC METABOLIC PANEL - Abnormal; Notable for the following components: Anion Gap 6 (*) All other components within normal limits HEPATIC FUNCTION PANEL A - Abnormal; Notable for the following components: Albumin 2.7 (*) Alkaline Phosphatase 186 (*) Total Protein 5.8 (*) All other components within normal limits CBC AND DIFFERENTIAL - Abnormal; Notable for the following components: White Blood Cell 14.7 (*) Hemoglobin 11.3 (*) Hematocrit 35.9 (*) Mean Cell Volume 79.9 (*) Mean Cell Hemoglobin 25.0 (*) Mean Cell Hgb Conc 31.3 (*) Red Cell Dist Width 17.3 (*) Abs Neutrophil 11.13 (*) Abs Lymphocyte 0.89 (*) Abs Monocyte 1.80 (*) Abs Eosinophil 0.79 (*) All other components within normal limits PHOSPHORUS LEVEL - Abnormal; Notable for the following components: Phosphorus 2.0 (*) All other components within normal limits HEPATIC FUNCTION PANEL A - Abnormal; Notable for the following components: Albumin 3.1 (*) Alkaline Phosphatase 244 (*) All other components within normal limits BASIC METABOLIC PANEL - Abnormal; Notable for the following components: Sodium 135 (*) All other components within normal limits CANCER ANTIGEN 19-9 - Abnormal; Notable for the following components: CA 19-9 Serum 9,179 (*) All other components within normal limits CEA - Abnormal; Notable for the following components: CEA 33.7 (*) All other components within normal limits CBC AND DIFFERENTIAL - Abnormal; Notable for the following components: White Blood Cell 15.8 (*) Red Blood Cell 4.02 (*) Hemoglobin 10.1 (*) Hematocrit 31.8 (*) Mean Cell Volume 79.1 (*) Mean Cell Hemoglobin 25.3 (*) Mean Cell Hgb Conc 31.9 (*) Red Cell Dist Width 17.0 (*) Abs Neutrophil 11.70 (*) Abs Lymphocyte 0.82 (*) Abs Monocyte 2.34 (*) Abs Eosinophil 0.81 (*) All other components within normal limits PHOSPHORUS LEVEL - Abnormal; Notable for the following components: Phosphorus 2.3 (*) All other components within normal limits BASIC METABOLIC PANEL - Abnormal; Notable for the following components: Sodium 133 (*) Anion Gap 6 (*) All other components within normal limits BASIC METABOLIC PANEL - Abnormal; Notable for the following components: Bicarbonate 20 (*) Sodium 134 (*) All other components within normal limits PROTIME INR - Abnormal; Notable for the following components: PT Patient 15.8 (*) All other components within normal limits CBC AND DIFFERENTIAL - Abnormal; Notable for the following components: White Blood Cell 14.7 (*) Red Blood Cell 3.98 (*) Hemoglobin 10.0 (*) Hematocrit 31.4 (*) Mean Cell Volume 78.9 (*) Mean Cell Hemoglobin 25.1 (*) Mean Cell Hgb Conc 31.8 (*) Red Cell Dist Width 17.3 (*) Abs Neutrophil 10.11 (*) Abs Lymphocyte 1.06 (*) Abs Monocyte 2.34 (*) Abs Eosinophil 1.09 (*) All other components within normal limits CBC AND DIFFERENTIAL - Abnormal; Notable for the following components: White Blood Cell 13.0 (*) Red Blood Cell 3.96 (*) Hemoglobin 10.0 (*) Hematocrit 31.6 (*) Mean Cell Volume 79.8 (*) Mean Cell Hemoglobin 25.1 (*) Mean Cell Hgb Conc 31.5 (*) Red Cell Dist Width 17.2 (*) Abs Neutrophil 8.97 (*) Abs Lymphocyte 0.52 (*) Abs Monocyte 1.82 (*) Abs Eosinophil 0.91 (*) Abs Myelocyte 0.13 (*) Abs Metamyelocyte 0.13 (*) All other components within normal limits BASIC METABOLIC PANEL - Abnormal; Notable for the following components: Anion Gap 7 (*) All other components within normal limits CBC AND DIFFERENTIAL - Abnormal; Notable for the following components: White Blood Cell 11.7 (*) Hemoglobin 10.5 (*) Hematocrit 33.3 (*) Mean Cell Volume 79.4 (*) Mean Cell Hemoglobin 25.1 (*) Mean Cell Hgb Conc 31.6 (*) Red Cell Dist Width 17.4 (*) Abs Neutrophil 7.81 (*) Abs Lymphocyte 1.02 (*) Abs Monocyte 1.60 (*) Abs Eosinophil 1.11 (*) All other components within normal limits POCT ISTAT CHEM8 - Abnormal; Notable for the following components: i-STAT Hematocrit 33 (*) i-STAT Hemoglobin 11.2 (*) All other components within normal limits POCT ISTAT VBG/LAC - Abnormal; Notable for the following components: i-STAT Venous pH 7.33 (*) i-STAT Venous PCO2 49 (*) i-STAT Venous SO2 43 (*) i-STAT Venous Lactic Acid 0.4 (*) All other components within normal limits BLOOD CULTURE BLOOD CULTURE COVID-19 PCR RESPIRATORY PATHOGEN PANEL WOUND CULTURE BODY FLUID CULTURE AND GRAM STAIN BODY FLUID CULTURE AND GRAM STAIN LACTIC ACID LEVEL, PLASMA TROPONIN T LIPASE LEVEL MAGNESIUM LEVEL PARTIAL THROMBOPLASTIN TIME (PTT) PROBNP PROTIME INR LIPASE LEVEL MAGNESIUM LEVEL PHOSPHORUS LEVEL HEPATITIS C ANTIBODY HOMOCYSTEINE, SERUM BASIC METABOLIC PANEL MAGNESIUM LEVEL MAGNESIUM LEVEL PHOSPHORUS LEVEL MAGNESIUM LEVEL CEA CANCER ANTIGEN 19-9 AFP TUMOR MARKER AFP TUMOR MARKER MAGNESIUM LEVEL BASIC METABOLIC PANEL PARTIAL THROMBOPLASTIN TIME (PTT) MAGNESIUM LEVEL PHOSPHORUS LEVEL MAGNESIUM LEVEL PHOSPHORUS LEVEL MAGNESIUM LEVEL PHOSPHORUS LEVEL BASIC METABOLIC PANEL MAGNESIUM LEVEL PHOSPHORUS LEVEL CBC AND DIFFERENTIAL MAGNESIUM LEVEL PHOSPHORUS LEVEL CBC AND DIFFERENTIAL MAGNESIUM LEVEL PHOSPHORUS LEVEL TYPE AND SCREEN ANTIBODY IDENTIFICATION SURGICAL PATHOLOGY EXAM ( ONLY) MOLECULAR DIAGNOSTICS, GENETICS MOLECULAR DIAGNOSTICS, GENETICS CYTOLOGY NON GYNECOLOGICAL SURGICAL PATHOLOGY EXAM ( ONLY) SURGICAL PATHOLOGY EXAM ( ONLY) CYTOLOGY NON GYNECOLOGICAL SURGICAL PATHOLOGY EXAM ( ONLY) FINE NEEDLE ASPIRATE POCT ISTAT CHEM8 POCT ISTAT TROPONIN POCT ISTAT VBG/LAC POCT ISTAT TROPONIN Anaya Harmon NP 05/17/20 1711 * Shira Tilley RN - 05/10/2020 1:02 AM EST Pt presented to [facility] with right upper quad pain. Pt recently had abscess dr jaime at [facility] per patient. Dressing in place. EMS reports that patient has been febrile, was previously febrile prior to transport. Afebrile in triage. Pat ient A/O. documented in this encounter Miscellaneous Notes * Plan of Care - Jason Sandy RN - 05/15/2020 10:22 PM EST Problem: Hemodynamic Status Goal: Patient will remain hemodynamically stable Description: Patient's vital signs, oxygenation, and labs will be monitored and deviations addressed. Outcome: Progressing Problem: Pain Goal: Pain is controlled to patient's desired goal Outcome: Progressing Problem: Risk for impaired skin integrity Goal: Skin integrity is maintained or improved Outcome: Progressing Problem: Fall Prevention Goal: No fall during Hospitalization Outcome: Progressing Problem: Impaired Physical Mobility Goal: Patient will maintain maximum physical mobility within prescribed activity and weight bearing restrictions Outcome: Progressing Problem: Risk for Infection Goal: The patient will receive immunization screening as indicated Outcome: Progressing Goal: Patient will remain free of infection in operative site Outcome: Progressing Goal: The patient will not develop pneumonia post-operatively Outcome: Progressing Goal: The patient will not develop Catheter Acquired Urinary Tract Infection (CA UTI) Outcome: Progressing Problem: Risk for DVT/PE Goal: Patient will not develop a DVT/PE Outcome: Progressing Problem: Risk for Gastrointestinal Complications Goal: Patient will not develop gastrointestinal complications Description: Nausea/vomiting, constipation, dehydration Outcome: Progressing Problem: Self Care Deficit Goal: Patient will perform Activities of Daily Living at optimal level Outcome: Progressing Problem: Psychosocial Needs Goal: Psychosocial needs will be met during this hospitalization Outcome: Progressing Problem: Discharge Needs Goal: Patient discharge needs are met Description: Collaborate with interdisciplinary team and initiate plans and inte rventions as needed Outcome: Progressing Problem: INJURY, RISK FOR Goal: Patient will not be injured from a fall during hospitalization Outcome: Progressing Problem: Knowledge Deficit Goal: Patient requires education regarding causes of high risk injury from a fal l Outcome: Progressing Goal: Patient's family requires education regarding causes of high risk injury f rom a fall Outcome: Progressing * Plan of Jason Hdz RN - 05/14/2020 11:58 PM EST Problem: Hemodynamic Status Goal: Patient will remain hemodynamically stable Description: Patient's vital signs, oxygenation, and labs will be monitored and deviations addressed. Outcome: Progressing Problem: Pain Goal: Pain is controlled to patient's desired goal Outcome: Progressing Problem: Risk for impaired skin integrity Goal: Skin integrity is maintained or improved Outcome: Progressing Problem: Fall Prevention Goal: No fall during Hospitalization Outcome: Progressing Problem: Impaired Physical Mobility Goal: Patient will maintain maximum physical mobility within prescribed activity and weight bearing restrictions Outcome: Progressing Problem: Risk for Infection Goal: The patient will receive immunization screening as indicated Outcome: Progressing Goal: Patient will remain free of infection in operative site Outcome: Progressing Goal: The patient will not develop pneumonia post-operatively Outcome: Progressing Goal: The patient will not develop Catheter Acquired Urinary Tract Infection (CA UTI) Outcome: Progressing Problem: Risk for DVT/PE Goal: Patient will not develop a DVT/PE Outcome: Progressing Problem: Risk for Gastrointestinal Complications Goal: Patient will not develop gastrointestinal complications Description: Nausea/vomiting, constipation, dehydration Outcome: Progressing Problem: Self Care Deficit Goal: Patient will perform Activities of Daily Living at optimal level Outcome: Progressing Problem: Psychosocial Needs Goal: Psychosocial needs will be met during this hospitalization Outcome: Progressing Problem: Discharge Needs Goal: Patient discharge needs are met Description: Collaborate with interdisciplinary team and initiate plans and inte rventions as needed Outcome: Progressing Problem: INJURY, RISK FOR Goal: Patient will not be injured from a fall during hospitalization Outcome: Progressing Problem: Knowledge Deficit Goal: Patient requires education regarding causes of high risk injury from a fal l Outcome: Progressing Goal: Patient's family requires education regarding causes of high risk injury f rom a fall Outcome: Progressing * Plan of Jason Hdz RN - 05/14/2020 1:23 AM EST Problem: Hemodynamic Status Goal: Patient will remain hemodynamically stable Description: Patient's vital signs, oxygenation, and labs will be monitored and deviations addressed. Outcome: Progressing Problem: Pain Goal: Pain is controlled to patient's desired goal Outcome: Progressing Problem: Risk for impaired skin integrity Goal: Skin integrity is maintained or improved Outcome: Progressing Problem: Fall Prevention Goal: No fall during Hospitalization Outcome: Progressing Problem: Impaired Physical Mobility Goal: Patient will maintain maximum physical mobility within prescribed activity and weight bearing restrictions Outcome: Progressing Problem: Risk for Infection Goal: The patient will receive immunization screening as indicated Outcome: Progressing Goal: Patient will remain free of infection in operative site Outcome: Progressing Goal: The patient will not develop pneumonia post-operatively Outcome: Progressing Goal: The patient will not develop Catheter Acquired Urinary Tract Infection (CA UTI) Outcome: Progressing Problem: Risk for DVT/PE Goal: Patient will not develop a DVT/PE Outcome: Progressing Problem: Risk for Gastrointestinal Complications Goal: Patient will not develop gastrointestinal complications Description: Nausea/vomiting, constipation, dehydration Outcome: Progressing Problem: Self Care Deficit Goal: Patient will perform Activities of Daily Living at optimal level Outcome: Progressing Problem: Psychosocial Needs Goal: Psychosocial needs will be met during this hospitalization Outcome: Progressing Problem: Discharge Needs Goal: Patient discharge needs are met Description: Collaborate with interdisciplinary team and initiate plans and inte rventions as needed Outcome: Progressing Problem: INJURY, RISK FOR Goal: Patient will not be injured from a fall during hospitalization Outcome: Progressing Problem: Knowledge Deficit Goal: Patient requires education regarding causes of high risk injury from a fal l Outcome: Progressing Goal: Patient's family requires education regarding causes of high risk injury f rom a fall Outcome: Progressing * Plan of Care - Ramiro Peterson RN - [facility]13[facility]2020 7[id number] Problem: Hemodynamic Status Goal: Patient will remain hemodynamically stable Description: Patient's vital signs, oxygenation, and labs will be monitored and deviations addressed. Outcome: Progressing Problem: Pain Goal: Pain is controlled to patient's desired goal Outcome: Progressing Problem: Risk for impaired skin integrity Goal: Skin integrity is maintained or improved Outcome: Progressing Problem: Fall Prevention Goal: No fall during Hospitalization Outcome: Progressing Problem: Impaired Physical Mobility Goal: Patient will maintain maximum physical mobility within prescribed activity and weight bearing restrictions Outcome: Progressing Problem: Risk for Infection Goal: The patient will receive immunization screening as indicated Outcome: Progressing Goal: Patient will remain free of infection in operative site Outcome: Progressing Goal: The patient will not develop pneumonia post-operatively Outcome: Progressing Goal: The patient will not develop Catheter Acquired Urinary Tract Infection (CA UTI) Outcome: Progressing Problem: Risk for DVT/PE Goal: Patient will not develop a DVT/PE Outcome: Progressing Problem: Risk for Gastrointestinal Complications Goal: Patient will not develop gastrointestinal complications Description: Nausea/vomiting, constipation, dehydration Outcome: Progressing Problem: Self Care Deficit Goal: Patient will perform Activities of Daily Living at optimal level Outcome: Progressing Problem: Psychosocial Needs Goal: Psychosocial needs will be met during this hospitalization Outcome: Progressing Problem: Discharge Needs Goal: Patient discharge needs are met Description: Collaborate with interdisciplinary team and initiate plans and inte rventions as needed Outcome: Progressing Problem: INJURY, RISK FOR Goal: Patient will not be injured from a fall during hospitalization Outcome: Progressing Problem: Knowledge Deficit Goal: Patient requires education regarding causes of high risk injury from a fal l Outcome: Progressing Goal: Patient's family requires education regarding causes of high risk injury f rom a fall Outcome: Progressing * Plan of Care - Gerson Fiore RN - 05/12/2020 9:23 AM EST Problem: Hemodynamic Status Goal: Patient will remain hemodynamically stable Description: Patient's vital signs, oxygenation, and labs will be monitored and deviations addressed. Outcome: Progressing Problem: Pain Goal: Pain is controlled to patient's desired goal Outcome: Progressing Problem: Risk for impaired skin integrity Goal: Skin integrity is maintained or improved Outcome: Progressing Problem: Fall Prevention Goal: No fall during Hospitalization Outcome: Progressing Problem: Impaired Physical Mobility Goal: Patient will maintain maximum physical mobility within prescribed activity and weight bearing restrictions Outcome: Progressing Problem: Risk for Infection Goal: The patient will receive immunization screening as indicated Outcome: Progressing Goal: Patient will remain free of infection in operative site Outcome: Progressing Goal: The patient will not develop pneumonia post-operatively Outcome: Progressing Goal: The patient will not develop Catheter Acquired Urinary Tract Infection (CA UTI) Outcome: Progressing Problem: Risk for DVT/PE Goal: Patient will not develop a DVT/PE Outcome: Progressing Problem: Risk for Gastrointestinal Complications Goal: Patient will not develop gastrointestinal complications Description: Nausea/vomiting, constipation, dehydration Outcome: Progressing Problem: Self Care Deficit Goal: Patient will perform Activities of Daily Living at optimal level Outcome: Progressing Problem: Psychosocial Needs Goal: Psychosocial needs will be met during this hospitalization Outcome: Progressing Problem: Discharge Needs Goal: Patient discharge needs are met Description: Collaborate with interdisciplinary team and initiate plans and inte rventions as needed Outcome: Progressing * Plan of Lissy Mcfarlane RN - 05/11/2020 3:54 AM EST Problem: Hemodynamic Status Goal: Patient will remain hemodynamically stable Description: Patient's vital signs, oxygenation, and labs will be monitored and deviations addressed. Outcome: Progressing Problem: Pain Goal: Pain is controlled to patient's desired goal Outcome: Progressing Problem: Risk for impaired skin integrity Goal: Skin integrity is maintained or improved Outcome: Progressing Problem: Fall Prevention Goal: No fall during Hospitalization Outcome: Progressing Problem: Impaired Physical Mobility Goal: Patient will maintain maximum physical mobility within prescribed activity and weight bearing restrictions Outcome: Progressing Problem: Risk for Infection Goal: The patient will receive immunization screening as indicated Outcome: Progressing Goal: Patient will remain free of infection in operative site Outcome: Progressing Goal: The patient will not develop pneumonia post-operatively Outcome: Progressing Goal: The patient will not develop Catheter Acquired Urinary Tract Infection (CA UTI) Outcome: Progressing Problem: Risk for DVT/PE Goal: Patient will not develop a DVT/PE Outcome: Progressing Problem: Risk for Gastrointestinal Complications Goal: Patient will not develop gastrointestinal complications Description: Nausea/vomiting, constipation, dehydration Outcome: Progressing Problem: Self Care Deficit Goal: Patient will perform Activities of Daily Living at optimal level Outcome: Progressing Problem: Psychosocial Needs Goal: Psychosocial needs will be met during this hospitalization Outcome: Progressing Problem: Discharge Needs Goal: Patient discharge needs are met Description: Collaborate with interdisciplinary team and initiate plans and inte rventions as needed Outcome: Progressing * Plan of Yael Montoya RN - 05/10/2020 6:14 AM EST Problem: Hemodynamic Status Goal: Patient will remain hemodynamically stable Description: Patient's vital signs, oxygenation, and labs will be monitored and deviations addressed. Outcome: Progressing Problem: Pain Goal: Pain is controlled to patient's desired goal Outcome: Progressing Problem: Risk for impaired skin integrity Goal: Skin integrity is maintained or improved Outcome: Progressing Problem: Fall Prevention Goal: No fall during Hospitalization Outcome: Progressing Problem: Impaired Physical Mobility Goal: Patient will maintain maximum physical mobility within prescribed activity and weight bearing restrictions Outcome: Progressing Problem: Risk for Infection Goal: The patient will receive immunization screening as indicated Outcome: Progressing Goal: Patient will remain free of infection in operative site Outcome: Progressing Goal: The patient will not develop pneumonia post-operatively Outcome: Progressing Goal: The patient will not develop Catheter Acquired Urinary Tract Infection (CA UTI) Outcome: Progressing Problem: Risk for DVT/PE Goal: Patient will not develop a DVT/PE Outcome: Progressing Problem: Risk for Gastrointestinal Complications Goal: Patient will not develop gastrointestinal complications Description: Nausea/vomiting, constipation, dehydration Outcome: Progressing Problem: Self Care Deficit Goal: Patient will perform Activities of Daily Living at optimal level Outcome: Progressing Problem: Psychosocial Needs Goal: Psychosocial needs will be met during this hospitalization Outcome: Progressing Problem: Discharge Needs Goal: Patient discharge needs are met Description: Collaborate with interdisciplinary team and initiate plans and inte rventions as needed Outcome: Progressing documented in this encounter Plan of Treatment Date/Time Name Type Priority Associated Diag noses 05/10/2020 12:29 PM EST Molecular Diagnostics, Pathology and Routine Genetics Cytology 05/10/2020 12:29 PM EST Molecular Diagnostics, Pathology and Routine Genetics Cytology 05/15/2020 11:47 AM EST Surgical Pathology Exam Pathology and Routine ([facility] Only) Cytology 05/15/2020 1:01 PM EST Fine Needle Aspirate Pathology and Routine Cytology Order Schedule Name Type Priority Associated Diag noses Continuous for 30 Days starting 05/10/20 20 until 05/10/2020 Pulse Oximetry Respiratory Routine Care Once for 1 Occurrences starting 05/10/20 20 until 05/10/2020 Molecular Diagnostics, Pathology and Routine Genetics Cytology Once for 1 Occurrences starting 05/10/20 20 until 05/10/2020 Molecular Diagnostics, Pathology and Routine Genetics Cytology Once for 1 Occurrences starting 05/12/20 20 until 05/12/2020 Cytology, Non Pathology and Routine Gynecological Cytology Once for 1 Occurrences starting 05/12/20 20 until 05/12/2020 Body Fluid Culture and Microbiology Routine Gram Stain Once for 1 Occurrences starting 05/12/20 20 until 05/12/2020 Surgical Pathology Exam Pathology and Routine ([facility] Only) Cytology Once for 1 Occurrences starting 05/15/20 20 until 05/15/2020 Surgical Pathology Exam Pathology and Routine ([facility] Only) Cytology Once for 1 Occurrences starting 05/15/20 20 until 05/15/2020 Body Fluid Culture and Microbiology Routine Gram Stain Once for 1 Occurrences starting 05/15/20 20 until 05/15/2020 Cytology, Non Pathology and Routine Gynecological Cytology Once for 1 Occurrences starting 05/15/20 20 until 05/15/2020 Surgical Pathology Exam Pathology and Routine ( Only) Cytology Once for 1 Occurrences starting 05/15/20 20 until 05/15/2020 Fine Needle Aspirate Pathology and Routine Cytology AM Draw for 30 Occurrences starting 04/23 until 06/14/2020, 1 completed CBC and Differential Lab Routine AM Draw for 30 Days starting 05/16/2020 until 06/14/2020, 1 completed Magnesium Level Lab Routine AM Draw for 30 Days starting 05/16/2020 until 06/14/2020, 1 completed Phosphorus Level Lab Routine STAT for 1 Occurrences starting 05/16/20 until 05/16/2020 NM Bone Scan Imaging Imaging STAT Whole Body AM Draw for 3 Occurrences starting 05/18 until 05/20/2020 Basic Metabolic Panel Lab Routine Health Maintenance Due Date Last Done Comments MMR Vaccines (1 of 1 - 10/31/1946 Standard series) Varicella Vaccines (1 of 10/31/1946 2 - 2-dose childhood series) DTaP,Tdap,and Td Vaccines 1952 (1 - Tdap) Breast Cancer Screening 2 1996 years Colon Cancer Screening 10 1996 yrs Zoster Vaccines (1 of 2) 1996 Osteoporosis Screening 2 10/31/2011 yr Pneumococcal Vaccine: 65+ 10/31/2011 Years (1 of 1 - PPSV23) Influenza Vaccine 02/21/2020 01/30/2020, 02/19/2019, 02/11/2018, Additional history exists Hepatitis C Screening (B. Completed 05/10/2020 [id number]) HIB Vaccines Aged Out No longer eligible [...] on patient's age to complete this topic Pneumococcal Vaccine: Aged Out No longer eligib le based on patient's age to Pediatrics (0 to 5 Years) complete this topic and At-Risk Patients (6 to 64 Years) documented as of this encounter Procedures Comments Procedure Name Priority Date/Time Associated Diag nosis MR BRAIN WITH AND WITHOUT STAT 05/17/2020 CONTRAST 57172 4:25 AM EST CBC AND DIFFERENTIAL Routine 05/17/2020 3:45 AM EST PHOSPHORUS LEVEL Routine 05/17/2020 3:45 AM EST MAGNESIUM LEVEL Routine 05/17/2020 3:45 AM EST BASIC METABOLIC PANEL Routine 05/17/2020 3:[address] THORAX WITH CONTRAST STAT 05/16/2020 [id number] 12:[address] ABDOMEN PELVIS WITH STAT 05/16/2020 AND WITHOUT CONTRAST 12:26 PM EST [id number] CBC AND DIFFERENTIAL Routine 05/16/2020 4:59 AM EST PHOSPHORUS LEVEL Routine 05/16/2020 4:59 AM EST MAGNESIUM LEVEL Routine 05/16/2020 4:59 AM EST BASIC METABOLIC PANEL Routine 05/16/2020 4:59 AM EST IR IMAGE GUIDED NEEDLE STAT 05/15/2020 DRAIN PROCEDURE 11:05 AM EST WOUND CULTURE Routine 05/15/2020 11:05 AM EST PARTIAL THROMBOPLASTIN Routine 05/15/2020 TIME (PTT) 4:59 AM EST PROTIME INR Routine 05/15/2020 4:59 AM EST CBC AND DIFFERENTIAL Routine 05/15/2020 4:59 AM EST PHOSPHORUS LEVEL Routine 05/15/2020 4:59 AM EST MAGNESIUM LEVEL Routine 05/15/2020 4:59 AM EST BASIC METABOLIC PANEL Routine 05/15/2020 4:59 AM EST CBC AND DIFFERENTIAL Routine 05/14/2020 4:10 AM EST PHOSPHORUS LEVEL Routine 05/14/2020 4:10 AM EST MAGNESIUM LEVEL Routine 05/14/2020 4:10 AM EST BASIC METABOLIC PANEL Routine 05/14/2020 4:10 AM EST XR CHEST FRONTAL ONLY Routine 05/13/2020 22349 8:52 AM EST CANCER ANTIGEN 19-9 Routine 05/13/2020 2:50 AM EST AFP TUMOR MARKER Routine 05/13/2020 2:50 AM EST CBC AND DIFFERENTIAL Routine 05/13/2020 2:50 AM EST PHOSPHORUS LEVEL Routine 05/13/2020 2:50 AM EST MAGNESIUM LEVEL Routine 05/13/2020 2:50 AM EST CEA Routine 05/13/2020 2:50 AM EST HEPATIC FUNCTION PANEL A Routine 05/13/2020 2:50 AM EST BASIC METABOLIC PANEL Routine 05/13/2020 2:50 AM EST WOUND CULTURE Routine 05/12/2020 7:26 PM EST IR IMAGE GUIDED NEEDLE Routine 05/12/2020 DRAIN PROCEDURE 6:59 PM EST CBC AND DIFFERENTIAL Routine 05/12/2020 3:59 AM EST PHOSPHORUS LEVEL Routine 05/12/2020 3:59 AM EST MAGNESIUM LEVEL Routine 05/12/2020 3:59 AM EST HEPATIC FUNCTION PANEL A Routine 05/12/2020 3:59 AM EST BASIC METABOLIC PANEL Routine 05/12/2020 3:59 AM EST SURGICAL PATHOLOGY EXAM Routine 05/12/2020 ( ONLY) 12:00 AM EST US ABDOMEN LIMITED [id number] Routine 05/11/2020 10:33 PM EST CBC AND DIFFERENTIAL Routine 05/11/2020 7:35 AM EST PHOSPHORUS LEVEL Routine 05/11/2020 7:35 AM EST MAGNESIUM LEVEL Routine 05/11/2020 7:35 AM EST HOMOCYSTEINE, SERUM Routine 05/11/2020 7:35 AM EST HEPATIC FUNCTION PANEL A Routine 05/11/2020 7:35 AM EST BASIC METABOLIC PANEL Routine 05/11/2020 7:35 AM EST HEPATITIS C ANTIBODY Routine 05/10/2020 12:31 PM EST URINALYSIS WITH CODE 05/10/2020 MICROSCOPIC 4:37 AM EST EKG ED PHYSICIAN Routine 05/10/2020 INTERPRETATION 3:08 AM EST POCT ISTAT VBG/LAC Routine 05/10/2020 3:01 AM EST POCT ISTAT TROPONIN Routine 05/10/2020 2:57 AM EST POCT ISTAT CHEM8 Routine 05/10/2020 2:54 AM EST RESPIRATORY PATHOGEN Routine 05/10/2020 PANEL 2:48 AM EST COVID-19 PCR Routine 05/10/2020 2:48 AM EST PARTIAL THROMBOPLASTIN Routine 05/10/2020 TIME (PTT) 2:48 AM EST PROBNP Routine 05/10/2020 2:48 AM EST ANTIBODY IDENTIFICATION Routine 05/10/2020 2:48 AM EST BLOOD CULTURE Routine 05/10/2020 2:48 AM EST BLOOD CULTURE Routine 05/10/2020 2:48 AM EST PROTIME INR Routine 05/10/2020 2:48 AM EST CBC AND DIFFERENTIAL Routine 05/10/2020 2:48 AM EST TYPE AND SCREEN STAT 05/10/2020 2:48 AM EST TROPONIN T CODE 05/10/2020 2:48 AM EST TSH Routine 05/10/2020 2:48 AM EST PHOSPHORUS LEVEL Routine 05/10/2020 2:48 AM EST MAGNESIUM LEVEL Routine 05/10/2020 2:48 AM EST LIPASE LEVEL Routine 05/10/2020 2:48 AM EST LACTIC ACID LEVEL, PLASMA CODE 05/10/2020 2:48 AM EST HEPATIC FUNCTION PANEL A CODE 05/10/2020 2:48 AM EST BASIC METABOLIC PANEL CODE 05/10/2020 2:48 AM EST EKG 12-LEAD - CMAXX 05/10/2020 REPORT 2:41 AM EST EKG 12-LEAD - CMAXX 05/10/2020 REPORT 2:41 AM EST EKG 12-LEAD STAT 05/10/2020 2:41 AM EST documented in this encounter Results * MR Brain with and without Contrast (05/17/2020 4:25 AM EST) Specimen Impressions Performed At [facility]: [facility] Multiple areas of for restricted diffus ion and enhancement as discussed above. It is difficult to differentiate betwee n small infarct and brain metastasis. However, it appears that lesions may be following etiology 1. Bilateral parietal and the right superior frontal convexity subcortical tiny nodular lesions most likely metastatic lesions. 2. Right-sided centrum semiovale restri cted diffusion and enhancing lesion-most likely infarct rather than metastasis 3. Left lateral cerebellar lesion most likely acute infarct 4. A linear enhancing lesion in the rig ht lateral cerebellum may represent a subacute or chronic infarct as there is no restricted diffusion on ADC map. Differential diagnosis includes metasta sis or DVA. 5. Left posterior cerebellar enhancing linear branching lesion, possible developmental venous anomaly. 6. chronic lacunar infarcts are also pr esent as discussed above. Recommended follow-up were MR studies t o assess evolution of these lesions. Narrative Performed At [facility] INDICATION: 74-year-old female, examine for brain m ets. TECHNIQUE: Multiplanar multisequence MR images of the brain before and after intravenous gadolinium. The administered dose of in travenous contrast is available in [employer]. COMPARISON: No pertinent prior studies are availabl e for comparison. FINDINGS: A 2.5 mm nodular enhancing lesion is pr esent in the right superior frontal lobe without any distinctive restricted diff usion and likely consistent with a metastatic lesion. Another lesion more inferiorly in the c entrum semiovale of the right frontal lobe shows a restricted diffusion on DW I in ADC map and also demonstrates some mild enhancement. This could represent a subacute infarct or metastatic lesion. 2 small nodular lesion, approximately 2 -3 mm in size in the both parietal lobes. Likely present metastatic lesion. A chronic infarct is present in left pe riventricular white matter. A 4 mm size lesion in the left lateral cerebellum without enhancement but with restricted diffusion likely present acu te infarct. A linear enhancing lesion in the right lateral cerebellum may represent a subacute or chronic infarct as there is no restricted diffusion on ADC map. A linear enhancing lesion in the left a re posterior cerebellum demonstrate a configuration of some branching and may be related to developmental venous anomaly. An associated ischemia cannot be excluded. A chronic infarct is present in the rig ht periventricular white matter. There are no areas of abnormal suscepti bility in the brain parenchyma to suggest subacute blood products. There is small old lacunar infarct in the right posterior centrum semiovale. There is mild volume loss with commens urate prominence of ventricles and peripheral subarachnoid spaces in keepi ng with patient's chronological age. Normal flow voids of the major arteries in the skull base are well preserved suggestive of patency. Visualized porti ons of the paranasal sinuses and mastoid air cells are normal in signal. Procedure Note Interface, Received Via [employer] - 05/17/2020 11:46 AM EST INDICATION: 74-year-old female, examine for brain me ts. TECHNIQUE: Multiplanar multisequence MR images of the brain before and after intravenous gadolinium. The administered dose of intravenous contrast is available in [employer]. COMPARISON: No pertinent prior studies are available for comparison. FINDINGS: A 2.5 mm nodular enhancing lesion is present in the right superior frontal lobe without any distinctive restricted diffusion and likely consistent with a metastatic lesion. Another lesion more inferiorly in the centrum semiovale of the right frontal lobe shows a restricted diffusion on DWI in ADC map and also demonstrates some mild enhancement. This could represent a subacute infarct or metastatic lesion. 2 small nodular lesion, approximately 2- 3 mm in size in the both parietal lobes. Likely present metastatic lesion. A chronic infarct is present in left periventricular white matter. A 4 mm size lesion in the left lateral cerebellum without enhancement but with restricted diffusion likely present acute infarct. A linear enhancing lesion in the right lateral cerebellum may represent a subacute or chronic infarct as there is no restricted diffusion on ADC map. A linear enhancing lesion in the left are posterior cerebellum demonstrate a configuration of some branching and may be related to developmental venous anomaly. An associated ischemia cannot be excluded. A chronic infarct is present in the right periventricular white matter. There are no areas of abnormal susceptibility in the brain parenchyma to suggest subacute blood products. There is small old lacunar infarct in the right posterior centrum semiovale. There is mild volume loss with commensurate prominence of ventricles and peripheral subarachnoid spaces in keeping with patient's chronological age. Normal flow voids of the major arteries in the skull base are well preserved suggestive of patency. Visualized portions of the paranasal sinuses and mastoid air cells are normal in signal. IMPRESSION: Multiple areas of for restricted diffusion and enhancement as discussed above. It is difficult to differentiate between small infarct and brain metastasis. However, it appears that lesions may be following etiology 1. Bilateral parietal and the right sup erior frontal convexity subcortical tiny nodular lesions most likely metastatic lesions. 2. Right-sided centrum semiovale restric mack diffusion and enhancing lesion-most likely infarct rather than metastasis 3. Left lateral cerebellar lesion most l ikely acute infarct 4. A linear enhancing lesion in the righ t lateral cerebellum may represent a subacute or chronic infarct as there is no restricted diffusion on ADC map. Differential diagnosis includes metastasis or DVA. 5. Left posterior cerebellar enhancing l inear branching lesion, possible developmental venous anomaly. 6. chronic lacunar infarcts are also pre sent as discussed above. Recommended follow-up were MR studies to assess evolution of these lesions. Performing Organization Address City/State/Zipcode Ph one Number [facility] [address] [place] [address] * Basic Metabolic Panel (05/17/2020 3:45 AM EST) Bicarbonate 25 22 - 29 mmol/L [facility] Chloride 104 98 - 107 mmol/L [facility] Creatinine 0.78 0.50 - 0.90 mg/dL [facility] Glucose 90 70 - 140 mg/dL [facility] Potassium 4.5 3.4 - 5.1 mmol/L [facility] Sodium 136 136 - 145 mmol/L [facility] Blood Urea 10 8 - 23 mg/dL [facility] Nitrogen CLINICAL PATHOLOGY Anion Gap 7 (L) 8 - 15 mmol/L [facility] Osmolality, Markell 281 275 - 300 mosm/kg [facility] BUN/Cre Ratio 13 [facility] Calcium 9.2 8.8 - 10.2 mg/dL [facility] GFR Non 81 >60 mL/min/1.73m2 [facility] 2008 CLINICAL CDK-EPI PATHOLOGY GFR >90 >60 mL/min/1.73m2 [facility] 2008 CLINICAL CKD-EPI PATHOLOGY Specimen Plasma Performing Organization Address [facility] one Number [facility] [address] [place], [place] [address] PATHOLOGY * Phosphorus Level (05/17/2020 3:45 AM EST) Phosphorus 3.0 2.5 - 4.5 mg/dL [facility] Specimen Plasma Performing Organization Address [facility] Ph one Number [facility] [address] [place], [place] [address] PATHOLOGY * Magnesium Level (05/17/2020 3:45 AM EST) Magnesium 2.1 1.6 - 2.4 mg/dL [facility] Specimen Plasma Performing Organization Address [facility] Ph one Number [facility] [address] [place], [place] [address] PATHOLOGY * CBC and Differential (05/17/2020 3:45 AM EST) White Blood 11.7 (H) 4 - 10 10*3/uL [facility] Red Blood Cell 4.20 4.1 - 5.3 10*6/uL [facility] Hemoglobin 10.5 (L) 11.5 - 15.5 g/dL [facility] Hematocrit 33.3 (L) 36 - 45 % [facility] Mean Cell 79.4 (L) 80 - 96 fL [facility] Volume [facility] Clin Pathology Mean Cell 25.1 (L) 27 - 33 pg [facility] Hemoglobin [facility] Path[facility] Mean Cell Hgb 31.6 (L) 32.0 - 36.0 g/dL [facility] Pathology Red Cell Dist 17.4 (H) 11.5 - 14.5 % [facility] Width [facility] Platelet Count 318 150 - 400 10*3/uL [facility] Differential Automated Diff [facility] Type [facility] Neutrophil 66 % [facility] Lymphocyte 9 % [facility] Monocyte 14 % [facility] Eosinophil 10 % [facility] Basophil 1 % [facility] Abs Neutrophil 7.81 (H) 1.8 - 7.0 10*3/uL [facility] Abs Lymphocyte 1.02 (L) 1.2 - 4.0 10*3/uL [facility] Abs Monocyte 1.60 (H) 0 - 0.8 10*3/uL [facility] Abs Eosinophil 1.11 (H) 0 - 0.5 10*3/uL [facility] Abs Basophil 0.11 0 - 0.2 10*3/uL [facility] Nucleated Red 0 0 - 0 /100{WBCs} [facility] Blood Cells [facility] Pathology Specimen EDTA Whole Blood Performing Organization Address City/State/Zipcode Ph one Number [facility] [address] [place], [place] [address] PATHOLOGY [facility] [address] [place], [place] [address] Clin Pathology * CT Abdomen Pelvis with and without Contrast (05/16/2020 12:26 PM EST) Specimen Addenda Addendum by Lanette Gonzalez MD on 05/16/2020 3:04 PM Critical Result: This report contains findings that may be critical to patient care. The findings were verbally communicated via telephone conference with Dr. Mcleod at 3:04 PM EST on 05/16/2020. The findings were acknowledged and understood. THIS DOCUMENT HAS BEEN ELECTRONICALLY SIGNED BY LANETTE GONZALEZ MD Narrative Performed At PROCEDURE INFORMATION: [facility] Exam: CT Abdomen And Pelvis Without And With Contrast Exam date and time: 05/16/2020 12:00 PM Age: 74 years old Clinical indication: Abscess of liver; Condition or disease; Other: 74 yo female with liver mass and elevated ca1 9-9, sp IR guided biopsy pending results. CT ap w contrast with liver pr otocol to evaluate for other lesions or origin TECHNIQUE: Imaging protocol: Computed tomography o f the abdomen and pelvis without and with intravenous contrast. Radiation optimization: All CT scans at this facility use at least one of these dose optimization techniques: automated exposure control; mA and/or kV adjustment per patient size (includes t argeted exams where dose is matched to clinical indication); or iterative august nstruction. Contrast material: OMNI 300; Contrast v olume: 100 ml; Contrast route: INTRAVENOUS (IV); COMPARISON: CT ABD/PEL W/IV CONTRAST ONLY 0 7:16 PM FINDINGS: Lungs: There is minimal bibasilar atele ctasis. Liver: Hepatic abscess is not significa ntly changed in size in currently has increased density relative to the earli er study. Stable bilateral cystic hepatic nodules. Gallbladder and bile ducts: Stable gall bladder hydrops.There are calcified gallstones. Pancreas: Stable pancreas head cyst romina sures 11 mm. There are 2 stable tiny calcifications of the pancreas body and tail. Spleen: Normal. No splenomegaly. Adrenal glands: Normal. No mass. Kidneys and ureters: There is simple le ft renal cyst. There is small right renal stone. There is additional simple appearing right renal cyst. Stomach and bowel: Status post partial distal colon resection and anastomosis.No dilation.There is no shayna dence of intestinal obstruction. Appendix: No evidence of appendicitis. Intraperitoneal space: Unremarkable. No free air. No significant fluid collection. Vasculature: There is thrombus of the l eft renal vein. Lymph nodes: There are multiple nonspec ific nonpathologic but prominent lymph nodes in the periaortic region. There a re no lymph nodes of pathologic dimensions. Urinary bladder: Unremarkable as visual ized. Reproductive: Unremarkable as visualize d. Bones/joints: The spine demonstrates mo derate degenerative changes at multiple levels. Soft tissues: There is diastasis of the ventral abdominal wall musculature. There is mild body wall edema. IMPRESSION: 1. New left renal vein thrombus. The se ashlee gallbladder hydrops is compressing the proximal portion of the left renal vein and is considered likely cause of this thrombus. 2. Stable severe gallbladder hydrops an d cholelithiasis is noted. 3. Interval increased attenuation of th e hepatic abscess may be related to post drainage appearance although the size o f the lesion is not significantly changed. Numerous low-density hepatic n odules are present some of which have cystic characteristics although within the right hepatic lobe there are numerous small nodules which are indete rminate may also potentially represent small abscesses or metastatic foci. 4. Stable pancreas head cyst, stable si nce CT abdomen pelvis February 18, 2020.Reimaging every 2 years for 10 yea rs is recommended. (Reference: Lidia, 2017) COMMENTS: Consistent with the [employer]'s Incidental Findings Committee white paper (J Am Vincenzo Radiol 2018): Any incidental renal lesion less than 1 cm or classified as too small to characterize, or any incidental cystic renal lesion characterized as simple-ap pearing, is likely benign. No follow-up imaging is recommended for these lesion s per consensus recommendations based on imaging criteria. THIS DOCUMENT HAS BEEN ELECTRONICALLY S IGNED BY LANETTE GONZALEZ MD Procedure Note Interface, Received Via [employer] - 05/16/2020 2:16 PM EST PROCEDURE INFORMATION: Exam: CT Abdomen And Pelvis Without And With Contrast Exam date and time: 05/16/2020 12:00 PM Age: 74 years old Clinical indication: Abscess of liver; Condition or disease; Other: 74 yo female with liver mass and elevated ca19-9, sp IR guided biopsy pending results. CT ap w contrast with liver protocol to evaluate for other lesions or origin TECHNIQUE: Imaging protocol: Computed tomography of the abdomen and pelvis without and with intravenous contrast. Radiation optimization: All CT scans at this facility use at least one of these dose optimization techniques: automated exposure control; mA and/or kV adjustment per patient size (includes targeted exams where dose is matched to clinical indication); or iterative reconstruction. Contrast material: OMNI 300; Contrast volume: 100 ml; Contrast route: INTRAVENOUS (IV); COMPARISON: CT ABD/PEL W/IV CONTRAST ONLY 05/09/2020 7:16 PM FINDINGS: Lungs: There is minimal bibasilar atelectasis. Liver: Hepatic abscess is not significantly changed in size in currently has increased density relative to the earlier study. Stable bilateral cystic hepatic nodules. Gallbladder and bile ducts: Stable gallbladder hydrops.There are calcified gallstones. 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 There are 2 stable tiny calcifications of the pancreas body and tail. Spleen: Normal. No splenomegaly. Adrenal glands: Normal. No mass. Kidneys and ureters: There is simple left renal cyst. There is small right renal stone. There is additional simple appearing right renal cyst. Stomach and bowel: Status post partial distal colon resection and anastomosis.No dilation.There is no evidence of intestinal obstruction. Appendix: No evidence of appendicitis. Intraperitoneal space: Unremarkable. No free air. No significant fluid collection. Vasculature: There is thrombus of the left renal vein. Lymph nodes: There are multiple nonspecific nonpathologic but prominent lymph nodes in the periaortic region. There are no lymph nodes of pathologic dimensions. Urinary bladder: Unremarkable as visualized. Reproductive: Unremarkable as visualized. Bones/joints: The spine demonstrates moderate degenerative changes at multiple levels. Soft tissues: There is diastasis of the ventral abdominal wall musculature. There is mild body wall edema. IMPRESSION: 1. New left renal vein thrombus. The sev ere gallbladder hydrops is compressing the proximal portion of the left renal vein and is considered likely cause of this thrombus. 2. Stable severe gallbladder hydrops and cholelithiasis is noted. 3. Interval increased attenuation of the hepatic abscess may be related to post drainage appearance although the size of the lesion is not significantly changed. Numerous low-density hepatic nodules are present some of which have cystic characteristics although within the right hepatic lobe there are numerous small nodules which are indeterminate may also potentially represent small abscesses or metastatic foci. 4. Stable pancreas head cyst, stable sin ce CT abdomen pelvis February 18, 2020.Reimaging every 2 years for 10 year s is recommended. (Reference: Lidia, 2017) COMMENTS: Consistent with the [employer]'s Incidental Findings Committee white paper (J Am Vincenzo Radiol 2018): Any incidental renal lesion less than 1 cm or classified as too small to characterize, or any incidental cystic renal lesion characterized as simple-appearing, is likely benign. No follow-up imaging is recommended for these lesions per consensus recommendations based on imaging criteria. THIS DOCUMENT HAS BEEN ELECTRONICALLY SIGNED BY LANETTE GONZALEZ MD Performing Organization Address City/State/Zipcode Ph one Number [facility] [address] [place] [address] * CT Thorax with Contrast (05/16/2020 12:26 PM EST) Specimen Addenda Addendum by Lanette Gonzalez MD on 05/16/2020 3:04 PM Critical Result: This report contains findings that may be critical to patient care. The findings were verbally communicated via telephone conference with Dr. Mcleod at 3:04 PM EST on 05/16/2020. The findings were acknowledged and understood. THIS DOCUMENT HAS BEEN ELECTRONICALLY SIGNED BY LANETTE GONZALEZ MD Narrative Performed At PROCEDURE INFORMATION: [facility] Exam: CT Chest With Contrast; Diagnosti c Exam date and time: 05/16/2020 12:00 PM Age: 74 years old Clinical indication: Abscess of liver; Condition or disease; Other: 74 yo female with elevated ca19-9 with liver mass suspiciosu for cancer - sp IR guided biopsy. CT chest for staging TECHNIQUE: Imaging protocol: Diagnostic computed t omography of the chest with intravenous contrast. 3D rendering (Not supervised by radiolo gist): MIP and/or 3D reconstructed images were created by the technologist . Radiation optimization: All CT scans at this facility use at least one of these dose optimization techniques: automated exposure control; mA and/or kV adjustment per patient size (includes t argeted exams where dose is matched to clinical indication); or iterative august nstruction. Contrast material: OMNI 300; Contrast v olume: 100 ml; Contrast route: INTRAVENOUS (IV); COMPARISON: CT ANGIO CHEST 05/09/2020 7:16 PM, CT a bdomen and pelvis from today. FINDINGS: Thyroid: There is 1.1 cm left thyroid n odule, stable, no follow-up advised. Lungs: Small area subpleural consolidat ion noted peripherally right middle lobe. There is some minimal subpleural atelectasis peripherally within the left lower lobe, lingula, right middle lobe. Pleural space: There is some apical ple ural parenchymal thickening/scarring. Heart: Unremarkable. No cardiomegaly. N o pericardial effusion. Pulmonary arteries: There is right lowe r lobe pulmonary embolism. Small pulmonary embolism noted left lower lob e. There is small pulmonary embolism noted within the lingula. Aorta: Unremarkable. No aortic aneurysm . Lymph nodes: Unremarkable. No enlarged lymph nodes. Diaphragm: There is nonspecific elevati on of the right hemidiaphragm. Bones/joints: There are moderate degene rative changes lower thoracic spine. Soft tissues: Unremarkable. Other findings: Abdominal findings are discussed elsewhere. IMPRESSION: 1. New small pulmonary emboli within alpesh th right and left lower lobe. Small left upper lobe pulmonary embolism. 2. Small area of subpleural atelectasis /consolidation peripherally right lower lobe. Otherwise some small scattered ar eas of atelectasis noted bilaterally. COMMENTS: Consistent with the [employer]'s Incidental Findings Committee white paper (J Am Vincenzo Radiol 2015): In patients aged 35 years and older with an incidental thyroid nodule equal to or greater than 1.[address], MRI or extrathyroidal U S, further evaluation with dedicated thyroid US is recommended for patients with normal life expectancy and without comorbidities. For smaller nodules with out suspicious features, no further evaluation or follow up is recommended. THIS DOCUMENT HAS BEEN ELECTRONICALLY S IGNED BY LANETTE GONZALEZ MD Procedure Note Interface, Received Via [employer] - 05/16/2020 2:19 PM EST PROCEDURE INFORMATION: Exam: CT Chest With Contrast; Diagnostic Exam date and time: 05/16/2020 12:00 PM Age: 74 years old Clinical indication: Abscess of liver; Condition or disease; Other: 74 yo female with elevated ca19-9 with liver mass suspiciosu for cancer - sp IR guided biopsy. CT chest for staging TECHNIQUE: Imaging protocol: Diagnostic computed tomography of the chest with intravenous contrast. 3D rendering (Not supervised by radiolog ist): MIP and/or 3D reconstructed images were created by the technologist. Radiation optimization: All CT scans at this facility use at least one of these dose optimization techniques: automated exposure control; mA and/or kV adjustment per patient size (includes targeted exams where dose is matched to clinical indication); or iterative reconstruction. Contrast material: OMNI 300; Contrast volume: 100 ml; Contrast route: INTRAVENOUS (IV); COMPARISON: CT ANGIO CHEST 05/09/2020 7:16 PM, CT abdomen and pelvis from today. FINDINGS: Thyroid: There is 1.1 cm left thyroid nodule, stable, no follow-up advised. Lungs: Small area subpleural consolidation noted peripherally right middle lobe. There is some minimal subpleural atelectasis peripherally within the left lower lobe, lingula, right middle lobe. Pleural space: There is some apical pleural parenchymal thickening/scarring. Heart: Unremarkable. No cardiomegaly. No pericardial effusion. Pulmonary arteries: There is right lower lobe pulmonary embolism. Small pulmonary embolism noted left lower lobe. There is small pulmonary embolism noted within the lingula. Aorta: Unremarkable. No aortic aneurysm. Lymph nodes: Unremarkable. No enlarged lymph nodes. Diaphragm: There is nonspecific elevation of the right hemidiaphragm. Bones/joints: There are moderate degenerative changes lower thoracic spine. Soft tissues: Unremarkable. Other findings: Abdominal findings are discussed elsewhere. IMPRESSION: 1. New small pulmonary emboli within bot h right and left lower lobe. Small left upper lobe pulmonary embolism. 2. Small area of subpleural atelectasis/ consolidation peripherally right lower lobe. Otherwise some small scattered areas of atelectasis noted bilaterally. COMMENTS: Consistent with the [employer]'s Incidental Findings Committee white paper (J Am Vincenzo Radiol 2015): In patients aged 35 years and older with an incidental thyroid nodule equal to or greater than 1.[address], MRI or extrathyroidal US, further evaluation with dedicated thyroid US is recommended for patients with normal life expectancy and without comorbidities. For smaller nodules without suspicious features, no further evaluation or follow up is recommended. THIS DOCUMENT HAS BEEN ELECTRONICALLY SIGNED BY LANETTE GONZALEZ MD Performing Organization Address City/State/[facility] Ph one Number [facility] [address] [place] [address] * Basic Metabolic Panel (05/16/2020 4:59 AM EST) Bicarbonate 24 22 - 29 mmol/L [facility] Chloride 106 98 - 107 mmol/L [facility] Creatinine 0.78 0.50 - 0.90 mg/dL [facility] Glucose 99 70 - 140 mg/dL [facility] Potassium 4.8 3.4 - 5.1 mmol/L [facility] Sodium 137 136 - 145 mmol/L [facility] Blood Urea 12 8 - 23 mg/dL [facility]ICAL PATHOLOGY Anion Gap 8 8 - 15 mmol/L [facility] Osmolality, Markell 284 275 - 300 mosm/kg [facility] BUN/Cre Ratio 15 [facility] Calcium 9.6 8.8 - 10.2 mg/dL [facility] GFR Non 81 >60 mL/min/1.73m2 [facility] ZAKI E [place] 2008 CLINICAL CDK-EPI PATHOLOGY GFR >90 >60 mL/min/1.73m2 [facility] [place] 2008 CLINICAL CKD-EPI PATHOLOGY Specimen Plasma Performing Organization Address [facility] one Number [facility] [address] [place], [place] [address] PATHOLOGY * Phosphorus Level (05/16/2020 4:59 AM EST) Phosphorus 3.2 2.5 - 4.5 mg/dL [facility] Specimen Plasma Performing Organization Address [facility] one Number [address] PATHOLOGY * Magnesium Level (05/16/2020 4:59 AM EST) Magnesium 2.3 1.6 - 2.4 mg/dL [facility] Specimen Plasma Performing Organization Address [facility] one Number [facility] [address] [place], [place] [address] PATHOLOGY * CBC and Differential (05/16/2020 4:59 AM EST) White Blood 13.0 (H) 4 - 10 10*3/uL [facility] Red Blood Cell 3.96 (L) 4.1 - 5.3 10*6/uL [facility] Hemoglobin 10.0 (L) 11.5 - 15.5 g/dL [facility] Hematocrit 31.6 (L) 36 - 45 % [facility] Mean Cell 79.8 (L) 80 - 96 fL [facility] Volume [facility] Mean Cell 25.1 (L) 27 - 33 pg [facility] Hemoglobin [facility] Mean Cell Hgb 31.5 (L) 32.0 - 36.0 g/dL [facility] Conc [facility] Red Cell Dist 17.2 (H) 11.5 - 14.5 % [facility] Width [facility] Platelet Count 258 150 - 400 10*3/uL [facility] Differential Manual Diff [facility] Type [facility] Neutrophil 69 % [facility] Lymphocyte 4 % [facility] Monocyte 14 % [facility] Eosinophil 7 % [facility] Basophil 1 % [facility] Abs Neutrophil 8.97 (H) 1.8 - 7.0 10*3/uL [facility] Abs Lymphocyte 0.52 (L) 1.2 - 4.0 10*3/uL [facility] Abs Monocyte 1.82 (H) 0 - 0.8 10*3/uL [facility] Abs Eosinophil 0.91 (H) 0 - 0.5 10*3/uL [facility] Abs Basophil 0.13 0 - 0.2 10*3/uL [facility] Neut Band 3 % [facility] Myelocyte 1 % [facility] Metamyelocyte 1 % [facility] Abs Neut Band 0.39 0 - 0.6 10*3/uL [facility] Abs Myelocyte 0.13 (H) 0 - 0 10*3/uL [facility] Abs 0.13 (H) 0 - 0 10*3/uL [facility] Metamyelocyte [facility] Anisocytosis 1+ [facility] Specimen EDTA Whole Blood Performing Organization Address City/State/[facility] Ph one Number [facility] [address] [place], [place] [address] PATHOLOGY [facility] [address] [place], [place] [address] Clin Pathology * IR Imaging Guided Needle, Drain Procedure (05/15/2020 11:05 AM EST) Specimen Impressions Performed At IMPRESSION: Successful and uncomplicated ultrasound g uided liver mass biopsy. [facility] 1-2 mL of likely necrotic material was also aspirated and sent for cultures/cytology. The pathology lab re sults are pending. The findings were discussed with Dr Domingo Meadows, right after the procedure. Narrative Performed At [facility] PROCEDURE: ULTRASOUND GUIDED LIVER MASS BIOPSY HISTORY: 74-year-old female with a hypo enhancing hepatic lesion, abscess versus mass, [facility] due to no output. Status post IR biopsy on 2019, nondiagnostic due to necrosis. COMPARISON: CT scan 05/09/2020, IR proc edure 05/12/2020. OPERATORS: Attending physician: Guillermina Belle Fellow: Ty Ybarra M.D. Resident: None Procedural Nurse Practitioner: None SEDATION: 1 mg IV Versed, 50 mcg IV Fen tanyl, for 15 minutes of moderate conscious sedation. The patient's vital signs including blood pressure, respiratory rate, pulse oximetry with P aO2, and heart rate with the EKG tracing were constantly monitored during the pr ocedure. PROCEDURE: Limited pre-procedural ultrasound demon strated an ill-defined hypoechoic region in the right hepatic lobe adjacent to t he gallbladder. The overlying skin was prepped and draped with sterile techniq ue. The skin and subcutaneous tract were anesthetized with 2% lidocaine. A 17g i ntroducer cannula needle was advanced along the planned trajectory under dire ct ultrasound guidance. Aspiration through this needle yielded 1-2 mL of f oamy material, likely necrotic tissue, which was sent for culture and cytology . The 18g core biopsy device was placed through the cannula and a series of thr ee (3) core biopsies were obtained with ultrasound from periphery of the lesion . The samples were sent for histologic evaluation. The needles were removed, a nd hemostasis was obtained. A sterile bandage was placed over the puncture si te. The patient tolerated the procedure wel l without immediate complication. Procedure Note Interface, Received Via [employer] - 05/15/2020 2:13 PM EST PROCEDURE: ULTRASOUND GUIDED LIVER MASS BIOPSY HISTORY: 74-year-old female with a hypoenhancing hepatic lesion, abscess versus mass, status post drain placement in outside hospital which is removed due to no output. Status post IR biopsy on 05/12/2020, nondiagnostic due to necrosis. COMPARISON: CT scan 05/09/2020, IR procedure 05/12/2020. OPERATORS: Attending physician: Dale Samuels M.D. Fellow: Ty Ybarra M.D. Resident: None Procedural Nurse Practitioner: None SEDATION: 1 mg IV Versed, 50 mcg IV Fentanyl, for 15 minutes of moderate conscious sedation. The patient's vital signs including blood pressure, respiratory rate, pulse oximetry with PaO2, and heart rate with the EKG tracing were constantly monitored during the procedure. PROCEDURE: Limited pre-procedural ultrasound demonstrated an ill-defined hypoechoic region in the right hepatic lobe adjacent to the gallbladder. The overlying skin was prepped and draped with sterile technique. The skin and subcutaneous tract were anesthetized with 2% lidocaine. A 17g introducer cannula needle was advanced along the planned trajectory under direct ultrasound guidance. Aspiration through this needle yielded 1-2 mL of foamy material, likely necrotic tissue, which was sent for culture and cytology. The 18g core biopsy device was placed through the cannula and a series of three (3) core biopsies were obtained with ultrasound from periphery of the lesion. The samples were sent for histologic evaluation. The needles were removed, and hemostasis was obtained. A sterile bandage was placed over the puncture site. The patient tolerated the procedure well without immediate complication. IMPRESSION: Successful and uncomplicated ultrasound guided liver mass biopsy. 1- 2 mL of likely necrotic material was also aspirated and sent for cultures/cytology. The pathology lab results are pending. The findings were discussed with Dr Jamilah Meadows, right after the procedure. Performing Organization Address City/[facility] Ph one Number [facility] [address] [place] [address] * Wound culture (05/15/2020 11:05 AM EST) Special Request LEFT LIVER LESION [facility] Gram Stain 4+ WBC'S Seen. (A) [facility] Gram Stain No organisms seen [facility] Culture/Results STAPHYLOCOCCUS EPIDERMIDIS (A) [facility]ology Culture/Results (NOTE) [facility] Called to and read back by [facility] EDWARD FELIX RN, ON 6B AT Pathology 0931 ON 05/16/20 BY ANGELIAK. Specimen Aspirate Antibiotic Method Susceptibility Organism Erythromycin SELECT JARET RESULTS REPORTED. >=8: Resistant Staphylococcus epidermidis Clindamycin SELECT JARET RESULTS REPORTED. >=4: Resistant Staphylococcus epidermidis Oxacillin SELECT JARET RESULTS REPORTED. >=4: Resistant Staphylococcus epidermidis Trimethoprim + Sulfamethoxazole SELECT JARET RESULTS REPORTED. <=0.5/9.5: Sensitive Staphylococcus epidermidis Vancomycin SELECT JARET RESULTS REPORTED. 1: Sensitive Staphylococcus epidermidis Performing Organization Address City/[facility] Ph one Number [facility] [address] [place], [place] [address] PATHOLOGY [facility] [address] [place], [place] [address] Clin Pathology * Phosphorus Level (05/15/2020 4:59 AM EST) Phosphorus 2.8 2.5 - 4.5 mg/dL [facility] Specimen Plasma Performing Organization Address [facility] Ph one Number [facility] [address], [place] [address] PATHOLOGY * Magnesium Level (05/15/2020 4:59 AM EST) Magnesium 1.9 1.6 - 2.4 mg/dL [facility] Specimen Plasma Performing Organization Address [facility] one Number [facility] [address] [place], [place] [address] PATHOLOGY * CBC and Differential (05/15/2020 4:59 AM EST) White Blood 14.7 (H) 4 - 10 10*3/uL [facility] Red Blood Cell 3.98 (L) 4.1 - 5.3 10*6/uL [facility] Hemoglobin 10.0 (L) 11.5 - 15.5 g/dL [facility] [facility] Hematocrit 31.4 (L) 36 - 45 % [facility] Clin Pathology Mean Cell 78.9 (L) 80 - 96 fL [facility] Volume [facility] Univ Clin Pathology Mean Cell 25.1 (L) 27 - 33 pg [facility] Univ Clin Pathology Mean Cell Hgb 31.8 (L) 32.0 - 36.0 g/dL [facility] Univ Clin Pathology Red Cell Dist 17.3 (H) 11.5 - 14.5 % [facility] Width [facility] Univ Clin Pathology Platelet Count 259 150 - 400 10*3/uL [facility] Univ Clin Pathology Differential Automated Diff [facility] Type [facility] Univ Clin Pathology Neutrophil 69 % [facility] Clin Pathology Lymphocyte 7 % [facility] Clin Pathology Monocyte 16 % [facility] Clin Pathology Eosinophil 7 % [facility] Univ Clin Pathology Basophil 1 % [facility] Univ Clin Pathology Abs Neutrophil 10.11 (H) 1.8 - 7.0 10*3/uL [facility] Univ Clin Pathology Abs Lymphocyte 1.06 (L) 1.2 - 4.0 10*3/uL [facility] Clin Pathology Abs Monocyte 2.34 (H) 0 - 0.8 10*3/uL [facility] Clin Pathology Abs Eosinophil 1.09 (H) 0 - 0.5 10*3/uL [facility] Clin Pathology Abs Basophil 0.10 0 - 0.2 10*3/uL [facility] Clin Pathology Nucleated Red 0 0 - 0 /100{WBCs} [facility] Blood Cells [facility] Clin Pathology Specimen EDTA Whole Blood Performing Organization Address [facility] one Number [facility] CLINICAL [address] [place], [place] [address] [address] Clin Pathology * Basic Metabolic Panel (05/15/2020 4:59 AM EST) Bicarbonate 20 (L) 22 - 29 mmol/L [facility] CLINICAL PATHOLOGY Chloride 106 98 - 107 mmol/L [facility] CLINICAL PATHOLOGY Creatinine 0.68 0.50 - 0.90 mg/dL [facility] CLINICAL PATHOLOGY Glucose 98 70 - 140 mg/dL [facility] CLINICAL PATHOLOGY Potassium 4.3 3.4 - 5.1 mmol/L [facility] CLINICAL PATHOLOGY Sodium 134 (L) 136 - 145 mmol/L [facility] PATHOLOGY Blood Urea 9 8 - 23 mg/dL [facility] CLINICAL PATHOLOGY Anion Gap 8 8 - 15 mmol/L [facility] CLINICAL PATHOLOGY Osmolality, Markell 277 275 - 300 mosm/kg [facility] CLINICAL PATHOLOGY BUN/Cre Ratio 13 [facility] CLINICAL PATHOLOGY Calcium 8.8 8.8 - 10.2 mg/dL [facility] PATHOLOGY GFR Non 85 >60 mL/min/1.73m2 [facility] 2008 CLINICAL CDK-EPI PATHOLOGY GFR >90 >60 mL/min/1.73m2 [facility] 2009 CLINICAL CKD-EPI PATHOLOGY Specimen Plasma Performing Organization Address [facility] one Number [facility] CL[facility] [address] [place], [place] [address] PATHOLOGY * Partial Thromboplastin Time (PTT) (05/15/2020 4:59 AM EST) PTT 30.1 24.0 - 33.0 s [facility] Clin Pathology Specimen Plasma Performing Organization Address City/[facility] Ph one Number [facility] [address] [place], [place] [address] [address] Clin Pathology * Protime-INR (05/15/2020 4:59 AM EST) PT Patient 15.8 (H) 12.5 - 14.9 s [facility] Clin Pathology Int'l 1.25Comment: Routine intensity [facility] [place] Normalized oral anticoagulation INR is [facility] Clin Ratio typically 2.0-3.0. Target INR Patholo gy must be clinically individualized. Specimen Plasma Performing Organization Address [facility] one Number [address] [address] Clin Pathology * Basic Metabolic Panel (05/14/2020 4:10 AM EST) Bicarbonate 23 22 - 29 mmol/L [facility] CLINICAL PATHOLOGY Chloride 104 98 - 107 mmol/L [facility] CLINICAL PATHOLOGY Creatinine 0.72 0.50 - 0.90 mg/dL [facility] CLINICAL PATHOLOGY Glucose 103 70 - 140 mg/dL [facility] CLINICAL PATHOLOGY Potassium 4.4 3.4 - 5.1 mmol/L [facility] CLINICAL PATHOLOGY Sodium 133 (L) 136 - 145 mmol/L [facility] CLINICAL PATHOLOGY Blood Urea 10 8 - 23 mg/dL [facility] Nitrogen CLINICAL PATHOLOGY Anion Gap 6 (L) 8 - 15 mmol/L [facility] CLINICAL PATHOLOGY Osmolality, Markell 275 275 - 300 mosm/kg [facility] CLINICAL PATHOLOGY BUN/Cre Ratio 13 [facility] CLINICAL PATHOLOGY Calcium 9.4 8.8 - 10.2 mg/dL [facility] CLINICAL PATHOLOGY GFR Non 83 >60 mL/min/1.73m2 [facility] [place] 2008 CLINICAL CDK-EPI PATHOLOGY GFR >90 >60 mL/min/1.73m2 [facility] [place] 2009 CLINICAL CKD-EPI PATHOLOGY Specimen Plasma Performing Organization Address City/[facility] Ph one Number [address] 1321 PATHOLOGY * Phosphorus Level (05/14/2020 4:10 AM EST) Phosphorus 2.3 (L) 2.5 - 4.5 mg/dL [facility] CLINICAL PATHOLOGY Specimen Plasma Performing Organization Address [facility] one Number [facility] [address] [place], [place] [address] PATHOLOGY * Magnesium Level (05/14/2020 4:10 AM EST) Magnesium 1.9 1.6 - 2.4 mg/dL [facility] CLINICAL PATHOLOGY Specimen Plasma Performing Organization Address [facility] one Number [facility] [address] [place], [place] 132[address] PATHOLOGY * CBC and Differential (05/14/2020 4:10 AM EST) White Blood 15.8 (H) 4 - 10 10*3/uL [facility] Cell [facility] Univ Clin Pathology Red Blood Cell 4.02 (L) 4.1 - 5.3 10*6/uL [facility] Univ Clin Pathology Hemoglobin 10.1 (L) 11.5 - 15.5 g/dL [facility] Univ Clin Pathology Hematocrit 31.8 (L) 36 - 45 % [facility] Univ Clin Pathology Mean Cell 79.1 (L) 80 - 96 fL [facility] Volume [facility] Univ Clin Pathology Mean Cell 25.3 (L) 27 - 33 pg [facility] Hemoglobin [facility] Univ Clin Pathology Mean Cell Hgb 31.9 (L) 32.0 - 36.0 g/dL [facility] Conc [facility] Univ Clin Pathology Red Cell Dist 17.0 (H) 11.5 - 14.5 % [facility] Width [facility] Univ Clin Pathology Platelet Count 241 150 - 400 10*3/uL [facility] Univ Clin Pathology Differential Automated Diff [facility] Type Med Univ Clin Pathology Neutrophil 74 % [facility] Clin Pathology Lymphocyte 5 % [facility] Clin Pathology Monocyte 15 % [facility] Clin Pathology Eosinophil 5 % [facility] Clin Pathology Basophil 1 % [facility] Clin Pathology Abs Neutrophil 11.70 (H) 1.8 - 7.0 10*3/uL [facility] Univ Clin Pathology Abs Lymphocyte 0.82 (L) 1.2 - 4.0 10*3/uL [facility] Clin Pathology Abs Monocyte 2.34 (H) 0 - 0.8 10*3/uL [facility] Clin Pathology Abs Eosinophil 0.81 (H) 0 - 0.5 10*3/uL [facility] Clin Pathology Abs Basophil 0.11 0 - 0.2 10*3/uL [facility] Clin Pathology Nucleated Red 0 0 - 0 /100{WBCs} [facility] Blood Cells [facility] Clin Pathology Specimen EDTA Whole Blood Performing Organization Address City/[facility] Ph one Number [facility] CL[facility]ICAL [address] [place], [place] 132[address] PATHOLOGY [facility] [address] [place], [place] [address] Clin Pathology * XR Chest Frontal Only (05/13/2020 8:52 AM EST) Specimen Impressions Performed At IMPRESSION: [facility] Stable elevation of the right hemidiaph ragm with associated right lung volume loss. Narrative Performed At INDICATION: Productive cough [facility] TECHNIQUE: XR CHEST FRONTAL ONLY [id number], 0 8:42 AM, 85 degrees upright. COMPARISON: Side CT head thorax and CT abdomen/pelvis dated 05/09/2020.. FINDINGS: There are no indwelling lines, catheter s, or foreign bodies. Stable elevation of the right hemidiaph ragm with associated right lung volume loss. The cardiomediastinal contours are stab le. There is no evidence of pleural disease . The lungs are clear. Procedure Note Interface, Received Via [employer] - 05/13/2020 3:26 PM EST INDICATION: Productive cough TECHNIQUE: XR CHEST FRONTAL ONLY [id number], 05/13/2020 8:42 AM, 85 degrees upright. COMPARISON: Side CT head thorax and CT abdomen/pelvis dated 05/09/2020.. FINDINGS: There are no indwelling lines, catheters, or foreign bodies. Stable elevation of the right hemidiaphragm with associated right lung volume loss. The cardiomediastinal contours are stable. There is no evidence of pleural disease. The lungs are clear. IMPRESSION: Stable elevation of the right hemidiaphragm with associated right lung volume loss. Performing Organization Address [facility] Ph one Number [facility] [address] [place] [address] * AFP tumor marker (05/13/2020 2:50 AM EST) Alpha 1 1 <9 ng/mL [facility] [employer] CLINICAL PATHOLOGY Specimen Plasma Performing Organization Address [facility] one Number [facility] CL[facility] [address] [place], [place] [address] PATHOLOGY * CEA (05/13/2020 2:50 AM EST) CEA 33.7 (H) <3.4 ng/ml [facility] Comment: CLINICAL Levels of CEA should not be PATHOLOGY interpreted as absoulute evidence of the presence or absence of disease. It should not be used as a screening test for Cancer. CEA values obtained using different methodologies cannot be used interchangeably. This method is manufactured by [employer] and is an electrochemiluminesence immunoassay. Specimen Plasma Performing Organization Address [facility] one Number [facility] CLINICAL [address] [place], [place] [address] PATHOLOGY * Cancer antigen 19-9 (05/13/2020 2:50 AM EST) CA 19-9 Serum 9,179 (H) <35 U/mL [facility] Comment: CLINICAL Confirmed PATHOLOGY This test uses [employer] CA 19-9 electrochemiluminescent immunoassay. Results obtained with different test methods or kits cannot be used interchangeably. CA 19-9 is useful in monitoring pancreatic, hepatobiliary, gastric, hepatocelllular, and colorectal cancer. CA 19-9 value regardless of level, should not be interpreted as absolute evidence of the presence or absence of malignant disease. Specimen Plasma Performing Organization Address [facility] one Number [facility] CLINICAL [address] [place], [place] [address] PATHOLOGY * Basic Metabolic Panel (05/13/2020 2:50 AM EST) Bicarbonate 24 22 - 29 mmol/L [facility] CLINICAL PATHOLOGY Chloride 103 98 - 107 mmol/L [facility] PATHOLOGY Creatinine 0.80 0.50 - 0.90 mg/dL [facility] PATHOLOGY Glucose 98 70 - 140 mg/dL [facility] PATHOLOGY Potassium 4.3 3.4 - 5.1 mmol/L [facility] PATHOLOGY Sodium 135 (L) 136 - 145 mmol/L [facility] PATHOLOGY Blood Urea 10 8 - 23 mg/dL [facility] Nitrogen CLINICAL PATHOLOGY Anion Gap 8 8 - 15 mmol/L [facility] CLINICAL PATHOLOGY Osmolality, Markell 279 275 - 300 mosm/kg [facility] CLINICAL PATHOLOGY BUN/Cre Ratio 13 [facility] CLINICAL PATHOLOGY Calcium 9.4 8.8 - 10.2 mg/dL [facility] CLINICAL PATHOLOGY GFR Non 72 >60 mL/min/1.73m2 [facility] 2008 CLINICAL CDK-EPI PATHOLOGY GFR 83 >60 mL/min/1.73m2 [facility] 2008 CLINICAL CKD-EPI PATHOLOGY Specimen Plasma Performing Organization Address [facility] one Number [address] 1321 PATHOLOGY * Phosphorus Level (05/13/2020 2:50 AM EST) Phosphorus 2.0 (L) 2.5 - 4.5 mg/dL [facility] CLINICAL PATHOLOGY Specimen Plasma Performing Organization Address [facility] one Number [address] 1321 PATHOLOGY * Magnesium Level (05/13/2020 2:50 AM EST) Magnesium 2.1 1.6 - 2.4 mg/dL [facility] CLINICAL PATHOLOGY Specimen Plasma Performing Organization Address [facility] one Number [address] 1321 PATHOLOGY * CBC and Differential (05/13/2020 2:50 AM EST) White Blood 14.7 (H) 4 - 10 10*3/uL [facility] Univ Clin Pathology Red Blood Cell 4.50 4.1 - 5.3 10*6/uL [facility] Univ Clin Pathology Hemoglobin 11.3 (L) 11.5 - 15.5 g/dL [facility] Univ Clin Pathology Hematocrit 35.9 (L) 36 - 45 % [facility] Univ Clin Pathology Mean Cell 79.9 (L) 80 - 96 fL [facility] Volume [facility] Univ Clin Pathology Mean Cell 25.0 (L) 27 - 33 pg [facility] Univ Clin Pathology Mean Cell Hgb 31.3 (L) 32.0 - 36.0 g/dL [facility] Clin Pathology Red Cell Dist 17.3 (H) 11.5 - 14.5 % [facility] Width [facility] Clin Pathology Platelet Count 288 150 - 400 10*3/uL [facility] Clin Pathology Differential Automated Diff [facility] Type [facility] Univ Clin Pathology Neutrophil 76 % [facility] Clin Pathology Lymphocyte 6 % [facility] Clin Pathology Monocyte 12 % [facility] Clin Pathology Eosinophil 5 % [facility] Clin Pathology Basophil 1 % [facility] Clin Pathology Abs Neutrophil 11.13 (H) 1.8 - 7.0 10*3/uL [facility] Clin Pathology Abs Lymphocyte 0.89 (L) 1.2 - 4.0 10*3/uL [facility] Clin Pathology Abs Monocyte 1.80 (H) 0 - 0.8 10*3/uL [facility] Clin Pathology Abs Eosinophil 0.79 (H) 0 - 0.5 10*3/uL [facility] Clin Pathology Abs Basophil 0.14 0 - 0.2 10*3/uL [facility] Clin Pathology Nucleated Red 0 0 - 0 /100{WBCs} [facility] Blood Cells [facility] Clin Pathology Specimen EDTA Whole Blood Performing Organization Address [facility] Ph one Number [address] [address] Clin Pathology * Hepatic Function Panel (05/13/2020 2:50 AM EST) Albumin 3.1 (L) 3.5 - 5.2 g/dL [facility] CLINICAL PATHOLOGY Bilirubin, 0.3 <1.2 mg/dL [facility] Total CLINICAL PATHOLOGY Bilirubin, <0.2 <0.3 mg/dL [facility] Direct CLINICAL PATHOLOGY Alkaline 244 (H) 35 - 104 U/L [facility] Phosphatase CLINICAL PATHOLOGY AST/SGO 11 <32 U/L [facility] CLINICAL PATHOLOGY ALT/SGP 13 <33 U/L [facility] CLINICAL PATHOLOGY Total Protein 6.4 6.4 - 8.3 g/dL [facility] CLINICAL PATHOLOGY Specimen Plasma Performing Organization Address City/[facility] one Number [facility] CL[facility] [address] [place], [place] [address] PATHOLOGY * Wound culture (05/12/2020 7:26 PM EST) Special Request LIVER [facility] Clin Pathology Gram Stain No WBC's or organisms seen. [facility] Clin Pathology Culture/Results NO GROWTH [facility] Clin Pathology Specimen Aspirate Performing Organization Address City/State/Zipcode Ph one Number [facility] CLINICAL [address] [place], [place] 1321 PATHOLOGY [facility] [address] [place], [place] [address] Clin Pathology * IR Imaging Guided Needle, Drain Procedure (05/12/2020 6:59 PM EST) Specimen Impressions Performed At IMPRESSION: Successful and uncomplicate d ultrasound guided liver mass biopsy. No [facility] obvious collection was seen for drain p lacement, tiny amount of aspirated fluid was sent for the lab. Narrative Performed At [facility] PROCEDURE: ULTRASOUND GUIDED LIVER MASS BIOPSY HISTORY: 74-year-old female with a hypo enhancing hepatic lesion, abscess versus mass, [facility] due to no output. COMPARISON: CT scan 05/09/2020. OPERATORS: Attending physician: Elliot Argueta MD Fellow: Ty Ybarra M.D. Resident: None Procedural Nurse Practitioner: None SEDATION: 2 mg IV Versed, 100 mcg IV Fe ntanyl, for 30 minutes of moderate conscious sedation. The patient's vital signs including blood pressure, respiratory rate, pulse oximetry with P aO2, and heart rate with the EKG tracing were constantly monitored during the pr ocedure. PROCEDURE: Limited pre-procedural ultrasound demon strated an ill-defined hypoechoic region in the right hepatic lobe adjacent to t he gallbladder. The overlying skin was prepped and draped with sterile techniq ue. The skin and subcutaneous tract were anesthetized with 2% lidocaine. A 17g i ntroducer cannula needle was advanced along the planned trajectory under dire ct ultrasound guidance. Aspiration through this needle did not yield any p urulent material, tiny amount of serosanguineous fluid could be aspirate d, which was sent for culture. The 18g core biopsy device was placed through t he cannula and a series of four (4) core biopsies were obtained with ultrasound imaging documentation of the site of biopsy. The samples were sent for histo logic evaluation. The needles were removed, and hemostasis was obtained. A sterile bandage was placed over the puncture site. The patient tolerated the procedure wel l without immediate complication. Procedure Note Interface, Received Via [employer] - 05/15/2020 11:05 AM EST PROCEDURE: ULTRASOUND GUIDED LIVER MASS BIOPSY HISTORY: 74-year-old female with a hypoenhancing hepatic lesion, abscess versus mass, status post drain placement in outside hospital which is removed due to no output. COMPARISON: CT scan 05/09/2020. OPERATORS: Attending physician: Elliot Argueta MD Fellow: Ty Ybarra M.D. Resident: None Procedural Nurse Practitioner: None SEDATION: 2 mg IV Versed, 100 mcg IV Fentanyl, for 30 minutes of moderate conscious sedation. The patient's vital signs including blood pressure, respiratory rate, pulse oximetry with PaO2, and heart rate with the EKG tracing were constantly monitored during the procedure. PROCEDURE: Limited pre-procedural ultrasound demonstrated an ill-defined hypoechoic region in the right hepatic lobe adjacent to the gallbladder. The overlying skin was prepped and draped with sterile technique. The skin and subcutaneous tract were anesthetized with 2% lidocaine. A 17g introducer cannula needle was advanced along the planned trajectory under direct ultrasound guidance. Aspiration through this needle did not yield any purulent material, tiny amount of serosanguineous fluid could be aspirated, which was sent for culture. The 18g core biopsy device was placed through the cannula and a series of four (4) core biopsies were obtained with ultrasound imaging documentation of the site of biopsy. The samples were sent for histologic evaluation. The needles were removed, and hemostasis was obtained. A sterile bandage was placed over the puncture site. The patient tolerated the procedure well without immediate complication. IMPRESSION: Successful and uncomplicated ultrasound guided liver mass biopsy. No obvious collection was seen for drain placement, tiny amount of aspirated fluid was sent for the lab. Performing Organization Address City/State/[email or web address] Ph one Number [facility] [address] [place] [address] * Phosphorus Level (05/12/2020 3:59 AM EST) Phosphorus 2.5 2.5 - 4.5 mg/dL [facility] PATHOLOGY Specimen Plasma Performing Organization Address City/State/[facility] [email or web address] Ph one Number [facility] CL[facility] [address] [place], [place] [address] PATHOLOGY * Magnesium Level (05/12/2020 3:59 AM EST) Magnesium 1.8 1.6 - 2.4 mg/dL [facility] CLINICAL PATHOLOGY Specimen Plasma Performing Organization Address [facility] one Number [facility] [address] [place], [place] [address] PATHOLOGY * Basic Metabolic Panel (05/12/2020 3:59 AM EST) Bicarbonate 25 22 - 29 mmol/L [facility] CLINICAL PATHOLOGY Chloride 106 98 - 107 mmol/L [facility] PATHOLOGY Creatinine 0.76 0.50 - 0.90 mg/dL [facility] CLINICAL PATHOLOGY Glucose 82 70 - 140 mg/dL [facility] CLINICAL PATHOLOGY Potassium 4.5 3.4 - 5.1 mmol/L [facility] CLINICAL PATHOLOGY Sodium 137 136 - 145 mmol/L [facility] PATHOLOGY Blood Urea 9 8 - 23 mg/dL [facility] Nitrogen CLINICAL PATHOLOGY Anion Gap 6 (L) 8 - 15 mmol/L [facility] CLINICAL PATHOLOGY Osmolality, Markell 282 275 - 300 mosm/kg [facility] CLINICAL PATHOLOGY BUN/Cre Ratio 12 [facility] CLINICAL PATHOLOGY Calcium 9.0 8.8 - 10.2 mg/dL [facility] CLINICAL PATHOLOGY GFR Non 82 >60 mL/min/1.73m2 [facility] 2008 CLINICAL CDK-EPI PATHOLOGY GFR >90 >60 mL/min/1.73m2 [facility] 2009 CLINICAL CKD-EPI PATHOLOGY Specimen Plasma Performing Organization Address [facility] one Number [facility] [address] [place], [place] [address] PATHOLOGY * CBC and Differential (05/12/2020 3:59 AM EST) White Blood 13.8 (H) 4 - 10 10*3/uL [facility] Univ Clin Pathology Red Blood Cell 4.19 4.1 - 5.3 10*6/uL [facility] Clin Pathology Hemoglobin 10.4 (L) 11.5 - 15.5 g/dL [facility] Clin Pathology Hematocrit 33.1 (L) 36 - 45 % [facility] Clin Pathology Mean Cell 79.1 (L) 80 - 96 fL [facility] Volume [facility] Univ Clin Pathology Mean Cell 24.9 (L) 27 - 33 pg [facility] Hemoglobin [facility] Univ Clin Pathology Mean Cell Hgb 31.4 (L) 32.0 - 36.0 g/dL [facility] Clin Pathology Red Cell Dist 16.8 (H) 11.5 - 14.5 % [facility] Width [facility] Clin Pathology Platelet Count 304 150 - 400 10*3/uL [facility] Clin Pathology Differential Automated Diff [facility] Type [facility] Univ Clin Pathology Neutrophil 72 % [facility] Clin Pathology Lymphocyte 7 % [facility] Clin Pathology Monocyte 13 % [facility] Clin Pathology Eosinophil 7 % [facility] Clin Pathology Basophil 1 % [facility] Clin Pathology Abs Neutrophil 9.91 (H) 1.8 - 7.0 10*3/uL [facility] Clin Pathology Abs Lymphocyte 0.95 (L) 1.2 - 4.0 10*3/uL [facility] Clin Pathology Abs Monocyte 1.85 (H) 0 - 0.8 10*3/uL [facility] Clin Pathology Abs Eosinophil 1.00 (H) 0 - 0.5 10*3/uL [facility] Clin Pathology Abs Basophil 0.10 0 - 0.2 10*3/uL [facility] Clin Pathology Nucleated Red 0 0 - 0 /100{WBCs} [facility] Blood Cells [facility] Pathology Specimen EDTA Whole Blood Performing Organization Address City/[facility] Ph one Number [facility] CL[facility] [address] [place], [place] [address] PATHOLOGY [facility] [address] [place], [place] [address] Clin Pathology * Hepatic Function Panel (05/12/2020 3:59 AM EST) Albumin 2.7 (L) 3.5 - 5.2 g/dL [facility] [facility] Bilirubin, 0.3 <1.2 mg/dL [facility] Total [facility] PATHOLOGY Bilirubin, <0.2 <0.3 mg/dL [facility] Direct CLINICAL PATHOLOGY Alkaline 186 (H) 35 - 104 U/L [facility] Phosphatase CLINICAL PATHOLOGY AST/SGO 13 <32 U/L [facility] CLINICAL PATHOLOGY ALT/SGP 13 <33 U/L [facility] PATHOLOGY Total Protein 5.8 (L) 6.4 - 8.3 g/dL [facility] CLINICAL PATHOLOGY Specimen Plasma Performing Organization Address City/State/Zipcode Ph one Number [facility] [address] [place], [place] [address] PATHOLOGY * Surgical Pathology Exam ( Only) (05/12/2020 12:00 AM EST) SURGICAL Surgical Pathology Report KAMRAN Thompson Name: CARTER VEGA PATHOLOGY Collection Date: 05/12/2020 00:00 Received Date: 05/13/2020 09:02 Physician(s): SIMONE MEADOWS MD PINTER, DAVID J, MD Copy To: FRANSISCO HUNT MD DHIR,MD SIMONE Specimen(s) Received A: Liver lesion Clinical History Liver abscess vs. mass, aspiration, possible drain placement, possible biopsy. Diagnosis LIVER, LESION, CORE BIOPSY: COAGULATIVE (INFARCT-LIKE) NECROTIC CELLULAR DEBRIS WITH FEATURES SUSPICIOUS FOR TUMOR. NO VIABLE CELLS/TISSUE PRESENT. (See Microscopic Description). /pmw Daniel Vance M.D.;Resident Pathologist Electronically Signed By Kuldip Roberts MD;, Attending Pathologist 05/14/2020 17:47:43 The attending pathologist named above attests that he/she has personally reviewed the relevant preparation(s) for the specimen, performed microscopic examination when indicated, and rendered the final diagnosis. Gross Description The specimen is received in formalin labeled with the patient's name "Carter Vega" and "liver lesion biopsy". It consists of multiple soft lea-white tissue cores measuring from 0.1 up to 1.1 cm in length and averaging 0.1 cm in diameter. Totally submitted in two cassettes. KW/pmw Microscopic Description Sections from the liver lesion core biopsy contain cores of coagulative (infarct-like) necrotic cellular debris with ghost-like cell remnants. The appearance and arrangement of these ghost-like cell remnants is suspicious for tumor but not diagnostic. The lack of viable cells/tissue precludes further immunohistochemical assessment. This report may include one or more immunohistochemical stain results that use analyte specific reagents. All positive and negative controls have been reviewed by the attending pathologist and are satisfactory. The tests were developed and their performance characteristics determined by [facility] Pathology department. They have not been cleared or approved by the [place] Food and Drug Administration. The FDA has determined that such clearance or approval is not necessary. Specimen Performing Organization Address City/State/Zipcode Ph one Number [facility] CLINICAL [address] [place], [place] [address] PATHOLOGY * US Abdomen Limited (05/11/2020 10:33 PM EST) Specimen Narrative Performed At PROCEDURE INFORMATION: [facility] Exam: US Abdomen, Limited; Right Upper Quadrant Exam date and time: 05/11/2020 9:57 PM Age: 74 years old Clinical indication: Abscess of liver; Abnormal findings; Abnormal radiologic finding of the abdomen; Radiologic exam and body structure: Cta thorax, abd/pelvis from outside facility; Prior surgery; Surgery date: Post-operative (0-2 days); Surgery type: Abscess drain age of liver; Additional info: Assess for liver abscess/other type of lesion TECHNIQUE: Imaging protocol: US abdomen. Real time ultrasound with image documentation. Limited exam focused on the right upper quadrant. COMPARISON: If prior CT becomes available, a compar sekou can be made FINDINGS: Liver: Hepatic heterogeneity. There is a hypoechoic density within the left liver lobe measuring 1.7 x 1.3 x 1.7 cm . There was a larger lesion within the right liver lobe measuring approximatel y 9.9 x 8.7 x 9.2 centimetres. This may represent patient's known hepatic absce ss. Gallbladder: Gallbladder is somewhat hy dropic. Negative sonographic Prajapati sign. Cholelithiasis is noted. Common bile duct: Common bile duct sury ures approximately 4 mm Pancreas: Pancreas obscured secondary t o overlying bowel gas Right kidney: Right kidney measures 11. 2 centimetres and appears unremarkable Portal venous: Hepatopetal portal venou s flow IMPRESSION: Cholelithiasis. Negative sonographic Mu rphy sign. There is a heterogeneous lesion within the right liver lobe measuring approximately 10 centimetres. This coul d represent patient's known abscess THIS DOCUMENT HAS BEEN ELECTRONICALLY S IGNED BY DAWSON HERNANDEZ MD Procedure Note Interface, Received Via [employer] - 05/11/2020 11:13 PM EST PROCEDURE INFORMATION: Exam: US Abdomen, Limited; Right Upper Quadrant Exam date and time: 05/11/2020 9:57 PM Age: 74 years old Clinical indication: Abscess of liver; Abnormal findings; Abnormal radiologic finding of the abdomen; Radiologic exam and body structure: Cta thorax, abd/pelvis from outside facility; Prior surgery; Surgery date: Post-operative (0-2 days); Surgery type: Abscess draina ge of liver; Additional info: Assess for liver abscess/other type of lesion TECHNIQUE: Imaging protocol: US abdomen. Real time ultrasound with image documentation. Limited exam focused on the right upper quadrant. COMPARISON: If prior CT becomes available, a comparison can be made FINDINGS: Liver: Hepatic heterogeneity. There is a hypoechoic density within the left liver lobe measuring 1.7 x 1.3 x 1.7 cm. There was a larger lesion within the right liver lobe measuring approximately 9.9 x 8.7 x 9.2 centimetres. This may represent patient's known hepatic abscess. Gallbladder: Gallbladder is somewhat hydropic. Negative sonographic Prajapati sign. Cholelithiasis is noted. Common bile duct: Common bile duct measures approximately 4 mm Pancreas: Pancreas obscured secondary to overlying bowel gas Right kidney: Right kidney measures 11.2 centimetres and appears unremarkable Portal venous: Hepatopetal portal venous flow IMPRESSION: Cholelithiasis. Negative sonographic Prajapati sign. There is a heterogeneous lesion within the right liver lobe measuring approximately 10 centimetres. This could represent patient's known abscess THIS DOCUMENT HAS BEEN ELECTRONICALLY SIGNED BY DAWSON HERNANDEZ MD Performing Organization Address [facility] one Number [facility] [address] [place] [address] * Phosphorus Level (05/11/2020 7:35 AM EST) Phosphorus 2.4 (L) 2.5 - 4.5 mg/dL [facility] CLINICAL PATHOLOGY Specimen Plasma Performing Organization Address [facility] one Number [facility] CL[facility]ICAL [address] [place], [place] [address] PATHOLOGY * Magnesium Level (05/11/2020 7:35 AM EST) Magnesium 2.0 1.6 - 2.4 mg/dL [facility] CLINICAL PATHOLOGY Specimen Plasma Performing Organization Address [facility] one Number [facility] CLINICAL [address] [place], [place] [address] PATHOLOGY * Basic Metabolic Panel (05/11/2020 7:35 AM EST) Bicarbonate 23 22 - 29 mmol/L [facility] CLINICAL PATHOLOGY Chloride 106 98 - 107 mmol/L [facility] CLINICAL PATHOLOGY Creatinine 0.73 0.50 - 0.90 mg/dL [facility] CLINICAL PATHOLOGY Glucose 100 70 - 140 mg/dL [facility] CLINICAL PATHOLOGY Potassium 3.9Comment: Hemolyzed 3.4 - 5.1 mmol/L [facility] CLINICAL PATHOLOGY Sodium 137 136 - 145 mmol/L [facility] CLINICAL PATHOLOGY Blood Urea 10 8 - 23 mg/dL [facility] Nitrogen CLINICAL PATHOLOGY Anion Gap 8 8 - 15 mmol/L [facility] CLINICAL PATHOLOGY Osmolality, Markell 283 275 - 300 mosm/kg [facility] CLINICAL PATHOLOGY BUN/Cre Ratio 13 [facility] CLINICAL PATHOLOGY Calcium 9.8 8.8 - 10.2 mg/dL [facility] CLINICAL PATHOLOGY GFR Non 83 >60 mL/min/1.73m2 [facility] Romanian 2008 CLINICAL CDK-EPI PATHOLOGY GFR >90 >60 mL/min/1.73m2 [facility] 2008 CLINICAL CKD-EPI PATHOLOGY Specimen Plasma Performing Organization Address City/[facility] Ph one Number [facility] CLINICAL [address] [place] [address] PATHOLOGY * CBC and Differential (05/11/2020 7:35 AM EST) White Blood 13.8 (H) 4 - 10 10*3/uL [facility] Univ Clin Pathology Red Blood Cell 4.52 4.1 - 5.3 10*6/uL [facility] Clin Pathology Hemoglobin 11.3 (L) 11.5 - 15.5 g/dL [facility] Univ Clin Pathology Hematocrit 36.0 36 - 45 % [facility] Univ Clin Pathology Mean Cell 79.7 (L) 80 - 96 fL [facility] Volume [facility] Univ Clin Pathology Mean Cell 25.1 (L) 27 - 33 pg [facility] Med Univ Clin Pathology Mean Cell Hgb 31.4 (L) 32.0 - 36.0 g/dL [facility] Conc [facility] Univ Clin Pathology Red Cell Dist 17.1 (H) 11.5 - 14.5 % [facility] Width [facility] Univ Clin Pathology Platelet Count 289 150 - 400 10*3/uL [facility] Univ Clin Pathology Differential Automated Diff [facility] Univ Clin Pathology Neutrophil 76 % [facility] Clin Pathology Lymphocyte 4 % [facility] Pathology Monocyte 12 % [facility] Pathology Eosinophil 7 % [facility] Clin Pathology Basophil 1 % [facility] Clin Pathology Abs Neutrophil 10.52 (H) 1.8 - 7.0 10*3/uL [facility] Clin Pathology Abs Lymphocyte 0.59 (L) 1.2 - 4.0 10*3/uL [facility] Clin Pathology Abs Monocyte 1.66 (H) 0 - 0.8 10*3/uL [facility] Clin Pathology Abs Eosinophil 0.91 (H) 0 - 0.5 10*3/uL [facility] Clin Pathology Abs Basophil 0.09 0 - 0.2 10*3/uL [facility] Clin Pathology Nucleated Red 0 0 - 0 /100{WBCs} [facility] Blood Cells [facility] Clin Pathology Specimen EDTA Whole Blood Performing Organization Address [facility] one Number [address] [address] Clin Pathology * Hepatic Function Panel (05/11/2020 7:35 AM EST) Pathologist [facility] Albumin 2.7 (L) 3.5 - 5.2 g/dL [facility] PATHOLOGY Bilirubin, 0.3 <1.2 mg/dL [facility] Total CLINICAL PATHOLOGY Bilirubin, <0.2Comment: Hemolyzed <0.3 mg/dL [facility] Direct CLINICAL PATHOLOGY Alkaline 193 (H) 35 - 104 U/L [facility] Phosphatase CLINICAL PATHOLOGY AST/SGO 19 <32 U/L [facility] CLINICAL PATHOLOGY ALT/SGP 20 <33 U/L [facility] PATHOLOGY Total Protein 6.4 6.4 - 8.3 g/dL [facility] PATHOLOGY Specimen Plasma Performing Organization Address [facility] one Number [address] 132 PATHOLOGY * Homocysteine, serum (05/11/2020 7:35 AM EST) Pathologist [facility] Homocysteine 9.5 <15.0 umol/L [facility] CLINICAL PATHOLOGY Specimen Plasma Performing Organization Address [facility] one Number [facility] [address] [place], [place] [address] PATHOLOGY * Hepatitis C antibody (05/10/2020 12:31 PM EST) Hepatitis C Ab Non ReactiveComment: No Non Reactive [facility] serological evidence of active CLINICAL infection. If recent exposure PATHOLOGY is suspected, test for HCV RNA. Specimen Serum Performing Organization Address [facility] one Number [facility] [address] [place], [place] [address] PATHOLOGY * Urinalysis with microscopic (05/10/2020 4:37 AM EST) Color Yellow [facility] Clin Pathology Clarity Clear [facility] Clin Pathology Specific >1.060 (H) 1.003 - 1.030 [facility] [place] [facility] Univ Clin Pathology PH Urine 6.0 5.0 - 8.0 [facility] Clin Pathology Total Protein Negative Negative mg/dL [facility] UA Med Univ Clin Pathology Glucose UA Negative Negative mg/dL [facility] Clin Pathology Ketone Urine Negative Negative mg/dL [facility] Clin Pathology Bilirubin Negative Negative [facility] Clin Pathology Hemoglobin, Negative Negative [facility] Urine [facility] Univ Clin Pathology Leukocyte Negative Negative Jermain/uL [facility] Clin Pathology Nitrite Negative Negative [facility] Clin Pathology WBC 0 0 - 5 /HPF [facility] Clin Pathology RBC 0 0 - 3 /HPF [facility] Clin Pathology Specimen Urine Performing Organization Address 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 one Number EXTERNAL NON-INTERFACED LAB * POCT i-STAT VBG Lactic Acid (05/10/2020 3:01 AM EST) i-STAT Venous 7.33 (L) 7.36 - 7.41 [facility] pH [facility] POC i-STAT Venous 49 (H) 40 - 45 mmHg [facility] PCO2 [facility] POC i-STAT Venous 26 mmHg [facility] PO2 [facility] POC i-STAT Venous 0 mmol/L [facility] Base Excess [facility] POC i-STAT Venous 43 (L) 60 - 85 % [facility] SO2 [facility] POC i-STAT Venous 0.4 (L) 0.5 - 2.2 mmol/L [facility] Lactic Acid [facility] POC i-STAT Venous 28 mmol/L [facility] Total [facility] POC Specimen Whole Blood Performing Organization Address [facility] one Number POINT OF CARE TEST [address] POC [address] [place] [address] * POCT i-STAT Troponin (05/10/2020 2:57 AM EST) i-STAT Troponin 0.06 0.00 - 0.08 ng/mL [facility] POC Specimen Whole Blood Performing Organization Address [facility] one Number POINT OF CARE TEST [address] [place], [place] [id number] [place] [address] POC [address] [place] [address] * POCT i-STAT Chem 8 (05/10/2020 2:54 AM EST) i-STAT Sodium 140 136 - 145 mmol/L [facility] POC i-STAT 3.5 3.4 - 5.1 mmol/L [facility] Potassium [facility] POC i-STAT Chloride 104 98 - 107 mmol/L [facility] POC i-STAT TCO2 26 22 - 29 mmol/L [facility] POC i-STAT Ionized 1.23 1.13 - 1.32 mmol/L [facility] Calcium [facility] POC i-STAT Glucose 105 70 - 140 mg/dL [facility] POC i-STAT BUN 10 8 - 23 mg/dL [facility] POC i-STAT 0.8 0.50 - 0.90 mg/dL [facility] Creatinine [facility] POC i-STAT 33 (L) 36 - 45 % [facility] Hematocrit [facility] POC i-STAT 11.2 (L) 11.5 - 15.5 g/dL [facility] Hemoglobin [facility] POC Specimen Whole Blood Performing Organization Address [facility] one Number POINT OF CARE TEST [address] [place] [address] [facility] POC [address] [place] [address] * Phosphorus Level (05/10/2020 2:48 AM EST) Phosphorus 2.4 (L) 2.5 - 4.5 mg/dL [facility] PATHOLOGY Specimen Plasma Performing Organization Address [facility] one Number [address] 1321 PATHOLOGY * Antibody Identification (05/10/2020 2:48 AM EST) ANTIBODY IDENT No Antibodies Detected [facility] Clin Pathology Site Performed at [facility] Clin Pathology Specimen EDTA Whole Blood Performing Organization Address [facility] one Number [facility] [address] [place], [place] [address] [address] 10 Clin Pathology * Partial Thromboplastin Time (PTT) (05/10/2020 2:48 AM EST) PTT 33.4 (H) 24.0 - 33.0 s [facility] Clin Pathology Specimen Plasma Performing Organization Address [facility] one Number [facility] [address] [place], [place] [address] [address] 10 Clin Pathology * Protime-INR (05/10/2020 2:48 AM EST) PT Patient 15.0 (H) 12.5 - 14.9 s [facility] Clin Pathology Int'l 1.16Comment: Routine intensity [place]AN [place] Normalized oral anticoagulation INR is Med Univ Clin Ratio typically 2.0-3.0. Target INR Patholo gy must be clinically individualized. Specimen Plasma Performing Organization Address [facility] one Number [address] 132 10 Clin Pathology * Magnesium Level (05/10/2020 2:48 AM EST) Magnesium 1.8 1.6 - 2.4 mg/dL [facility] CLINICAL PATHOLOGY Specimen Plasma Performing Organization Address [facility] one Number [address] 1321 PATHOLOGY * Lipase Level (05/10/2020 2:48 AM EST) Lipase 14 13 - 60 U/L [facility] CLINICAL PATHOLOGY Specimen Plasma Performing Organization Address [facility] one Number [address] 1321 PATHOLOGY * proBNP (05/10/2020 2:48 AM EST) proBNP 521 (H) <125 pg/mL [facility] CLINICAL PATHOLOGY Specimen Plasma Performing Organization Address [facility] one Number [address] 1321 PATHOLOGY * Type and Screen (05/10/2020 2:48 AM EST) ABO/RH(D) B POS [facility] Univ Clin Pathology Gel Antibody Inconclusive Result, repeat KAMRAN Upst ate Screen testing required. Med Univ Clin Pathology Site Performed at [place], [place] Med Univ Clin Pathology REPEAT AB Inconclusive Result, repeat KAMRAN Upst ate SCREEN testing required. Med [facility] Clin Pathology REPEAT AB NEG [facility] SCREEN, MANUAL [facility] Clin Pathology Specimen EDTA Whole Blood Performing Organization Address [facility] one Number [address] 132 10 Clin Pathology * TSH (05/10/2020 2:48 AM EST) TSH 0.173 (L) 0.270 - 4.200 [facility] u[IU]/mL CLINICAL PATHOLOGY Specimen Plasma Performing Organization Address [facility] one Number [facility] CLINICAL [address] [place], [place] [address] PATHOLOGY * Troponin T (05/10/2020 2:48 AM EST) Pathologist [facility] Troponin T <0.01 <0.01 ng/mL [facility] CLINICAL PATHOLOGY Specimen Plasma Performing Organization Address [facility] one Number [facility] CLINICAL [address] [place], [place] [address] PATHOLOGY * Respiratory Pathogen Panel (05/10/2020 2:48 AM EST) Pathologist [facility] Special Request None [facility] CLINICAL PATHOLOGY Respiratory PCR PCR Results [facility] CLINICAL PATHOLOGY Culture/Results See Labs Tab for 2019 nCoV [facility] te RT-PCR results Med [facility] Clin Pathology Adenovirus Not Detected [facility] Univ Clin Pathology Coronavirus Not Detected [facility] 229E [facility] Univ Clin Pathology Coronavirus Not Detected [facility] HKU1 [facility] Univ Clin Pathology Coronavirus Not Detected [facility] NL63 [facility] Univ Clin Pathology Coronavirus Not Detected [facility] OC43 [facility] Univ Clin Pathology Human Not Detected [facility] Metapneumovirus [facility] Univ Clin Pathology Rhinovirus/ Not Detected [facility] Enterovirus [facility] Univ Clin Pathology Influenza A Not Detected [facility] Clin Pathology Influenza B Not Detected [facility] Clin Pathology Parainfluenza Not Detected [facility] virus 1 [facility] Univ Clin Pathology Parainfluenza Not Detected [facility] virus 2 [facility] Pathology Parainfluenza Not Detected [facility] virus 3 [facility] Pathology Parainfluenza Not Detected [facility] virus 4 [facility] Pathology RSV Not Detected [facility] Clin Pathology Bordetella Not Detected [facility] pertussis [facility] Univ Clin Pathology Chlamydia Not Detected [facility] pneumoniae [facility] Univ Clin Pathology Mycoplasma Not Detected [facility] pneumoniae [facility] Univ Clin Pathology Bordetella Not Detected [facility] parapertussis [facility] Clin Pathology Specimen Nasopharyngeal Swab Performing Organization Address [facility] one Number [facility] CLINICAL [address] [place], [place] [address] PATHOLOGY [address] [address] Clin Pathology * COVID-19 PCR (05/10/2020 2:48 AM EST) Specimen Nasopharyngeal Swab [facility] Description CLINICAL PATHOLOGY SARS CoV-2 2019 nCoV Real-Time RT-PCR: 2019 nCoV Real-Ubaldo e [facility] NOT DETECTED RT-PCR: NOT DETECTED Med Univ Clin Pathology Assay performed Test performed using [employer] KAMRAN[employer] Respiratory Panel. This test Med [facility] Clin is only for use under Food and Pathology Drug Administration's Emergency Use Authorization. Additional information is available on the following FDA websites for healthcare providers and patients. https://www.fda.gov/media/7362 20/download, https://www.WeDidIt.gov/Tagboard/0820 21/download First COVID-19 NO [facility] Test? CLINICAL PATHOLOGY Employed in NO [facility] CLINICAL setting? PATHOLOGY Symptomatic for YES [facility] COVID-19 as CLINICAL defined by CDC? PATHOLOGY Date of symptom [id number] [facility] onset? CLINICAL ([id number]) PATHOLOGY Hospitalized NO [facility] for COVID-19? CLINICAL PATHOLOGY Admitted to ICU UNKNOWN [facility] for COVID-19? CLINICAL PATHOLOGY Resident in a NO [facility] CLINICAL (group) care PATHOLOGY setting? ? NO [facility] CLINICAL PATHOLOGY Specimen Nasopharyngeal Swab Performing Organization Address [facility] Ph one Number [facility] CLINICAL [address] [place], [place] [address] PATHOLOGY [facility] [address] [place], [place] [address] Clin Pathology * Hepatic Function Panel (05/10/2020 2:48 AM EST) Albumin 2.7 (L) 3.5 - 5.2 g/dL [facility] CLINICAL PATHOLOGY Bilirubin, 0.3 <1.2 mg/dL [facility] Total CLINICAL PATHOLOGY Bilirubin, <0.2 <0.3 mg/dL [facility] Direct CLINICAL PATHOLOGY Alkaline 138 (H) 35 - 104 U/L [facility] Phosphatase CLINICAL PATHOLOGY AST/SGO 15 <32 U/L [facility] CLINICAL PATHOLOGY ALT/SGP 12 <33 U/L [facility] PATHOLOG[facility] Total Protein 5.5 (L) 6.4 - 8.3 g/dL [facility] PATHOLOGY Specimen Plasma Performing Organization Address [facility] Ph one Number [facility] [address] [place], [place] [address] PATHOLOGY * Basic Metabolic Panel (05/10/2020 2:48 AM EST) Bicarbonate 24 22 - 29 mmol/L [facility] PATHOLOGY Chloride 106 98 - 107 mmol/L [facility] PATHOLOGY Creatinine 0.71 0.50 - 0.90 mg/dL [facility] PATHOLOGY Glucose 105 70 - 140 mg/dL [facility] PATHOLOGY Potassium 3.3 (L) 3.4 - 5.1 mmol/L [facility] PATHOLOGY Sodium 137 136 - 145 mmol/L [facility] PATHOLOGY Blood Urea 10 8 - 23 mg/dL [facility] Nitrogen CLINICAL PATHOLOGY Anion Gap 7 (L) 8 - 15 mmol/L [facility] PATHOLOGY Osmolality, Markell 283 275 - 300 mosm/kg [facility] PATHOLOGY BUN/Cre Ratio 14 [facility] PATHOLOGY Calcium 7.9 (L) 8.8 - 10.2 mg/dL [facility] PATHOLOGY GFR Non 84 >60 mL/min/1.73m2 [facility] 2008 CLINICAL CDK-EPI PATHOLOGY GFR >90 >60 mL/min/1.73m2 [facility] 2009 CLINICAL CKD-EPI PATHOLOGY Specimen Plasma Performing Organization Address [facility] one Number [facility] [address] [place], [place] [address] PATHOLOGY * CBC and Differential (05/10/2020 2:48 AM EST) White Blood 14.8 (H) 4 - 10 10*3/uL [facility] Clin Pathology Red Blood Cell 4.13 4.1 - 5.3 10*6/uL [facility] Clin Pathology Hemoglobin 10.3 (L) 11.5 - 15.5 g/dL [facility] Clin Pathology Hematocrit 32.4 (L) 36 - 45 % [facility] Clin Pathology Mean Cell 78.5 (L) 80 - 96 fL [facility] Volume [facility] Clin Pathology Mean Cell 24.8 (L) 27 - 33 pg [facility] Clin Pathology Mean Cell Hgb 31.6 (L) 32.0 - 36.0 g/dL [facility] Clin Pathology Red Cell Dist 16.8 (H) 11.5 - 14.5 % [facility] Clin Pathology Platelet Count 253 150 - 400 10*3/uL [facility] Clin Pathology Differential Automated Diff [facility] Clin Pathology Neutrophil 74 % [facility] Clin Pathology Lymphocyte 9 % [facility] Clin Pathology Monocyte 12 % [facility] Clin Pathology Eosinophil 4 % [facility] Clin Pathology Basophil 1 % [facility] Clin Pathology Abs Neutrophil 10.99 (H) 1.8 - 7.0 10*3/uL [facility] Clin Pathology Abs Lymphocyte 1.28 1.2 - 4.0 10*3/uL [facility] Clin Pathology Abs Monocyte 1.84 (H) 0 - 0.8 10*3/uL [facility] Clin Pathology Abs Eosinophil 0.59 (H) 0 - 0.5 10*3/uL [facility] Clin Pathology Abs Basophil 0.13 0 - 0.2 10*3/uL [facility] Clin Pathology Nucleated Red 0 0 - 0 /100{WBCs} [facility] Blood Cells [facility] Clin Pathology Specimen EDTA Whole Blood Performing Organization Address City/[facility] Ph one Number [facility] [address] [place], [place] [address] [address] Clin Pathology * Blood culture ; Peripheral (05/10/2020 2:48 AM EST) Special Request Specimen source not given. [facility] Clin Pathology Culture/Results NO GROWTH [facility] Clin Pathology Specimen Peripheral Performing Organization Address City/[email or web address] Ph one Number [facility] [address] [place], [place] [address] [address] Clin Pathology * Blood culture ; Peripheral (05/10/2020 2:48 AM EST) Special Request Specimen source not given. [facility] Clin Pathology Culture/Results NO GROWTH [facility] Clin Pathology Specimen Peripheral Performing Organization Address City/[email or web address] Ph one Number [facility] [address] [place], [place] [address] PATHOLOGY [facility] [address] [place], [place] [address] Clin Pathology * Lactic Acid Level, Plasma (05/10/2020 2:48 AM EST) Lactic Acid 0.6 0.5 - 2.2 mmol/l [facility] PATHOLOGY Specimen Plasma Performing Organization Address [facility] Ph one Number [facility] [address] [place], [place] [address] PATHOLOGY * EKG 12-LEAD - [facility]MAXX REPORT (05/10/2020 2:41 AM EST) Narrative Performed At This result has an attachment that is n ot available. * EKG 12-LEAD - [facility]MAXX REPORT (05/10/2020 2:41 AM EST) Narrative Performed At This result has an attachment that is n ot available. * EKG 12 Lead (05/10/2020 2:41 AM EST) Specimen Narrative Performed At Ventricular Rate: [facility] EKG 69 BPM Atrial Rate: 69 BPM P-R Interval: 158 ms QRS Duration: 86 ms Q-T Interval: 440 ms QTC Calculation(Bazett): 471 ms P Hamilton: 10 degrees R Hamilton: -20 degrees T Hamilton: -4 degrees : SINUS RHYTHM : NONSPECIFIC T WAVE ABNORMALITY : PROLONGED QT : ABNORMAL ECG : NO PREVIOUS ECGS AVAILABLE : Confirmed by Ramiro Humphries ([id number]) on 05/10/2020 8:56:26 AM Procedure Note Interface, Received Via [employer] - 05/10/2020 8:56 AM EST Ventricular Rate: 69 BPM Atrial Rate: 69 BPM P-R Interval: 158 ms QRS Duration: 86 ms Q-T Interval: 440 ms QTC Calculation(Bazett): 471 ms P Hamilton: 10 degrees R Hamilton: -20 degrees T Hamilton: -4 degrees : SINUS RHYTHM : NONSPECIFIC T WAVE ABNORMALITY : PROLONGED QT : ABNORMAL ECG : NO PREVIOUS ECGS AVAILABLE : Confirmed by Ramiro Humphries ([id number]) on 05/10/2020 8:56:26 AM Performing Organization Address City/[facility] Ph one Number [facility] EKG documented in this encounter Visit Diagnoses Diagnosis Hepatic abscess - Primary Abscess of liver Current use of intermission coordinator anticoagulatio n Encounter for long-term (current) use o f anticoagulants Ulcerative colitis Ulcerative colitis, unspecified documented in this encounter Administered Medications Action Date Dose Rate Site Medication Order MAR Action 05/17/2020 5:18 PM EST 975 mg acetaminophen (TYLENOL) tablet 975 mg Given 975 mg, Oral, Every 8 hours, First dose (after last modification) on Mouna 05/15/20 at 1500, For 30 days, Maximum daily dose of acetaminophen is 3,000 mg from all sources in 24 hours., 975 mg Given 05/17/2020 8:35 AM EST 975 mg Given 05/17/2020 12:02 AM EST 05/17/2020 8:32 AM EST 1 tablet amoxicillin-clavulanate (AUGMENTIN) Given 875-125 MG per tablet 1 tablet 1 tablet, Oral, Every 12 hours Standard (2 times per day), First dose (after last modification) on Tue05/14/20 at 0900, For 6 days 1 tablet Given 05/16/2020 8:34 PM EST 1 tablet Given 05/16/2020 7:59 AM EST 05/17/2020 12:02 AM EST 500 mg calcium carbonate (TUMS) chewable tablet Given 500 mg 500 mg, Oral, 2 Times Daily PRN, Indigestion, Starting Tue05/16/20 at 2312, For 30 days 05/13/2020 9:25 AM EST 100 mg docusate (COLACE) 50 MG/5ML liquid 100 Given mg 100 mg, Oral, 2 Times Daily, First dose on 05/10/20 at 0900, For 30 days 100 mg Given 05/12/2020 9:37 PM EST 100 mg Given 05/11/2020 9:41 AM EST 05/16/2020 8:37 PM EST 90 mg enoxaparin sodium (LOVENOX) injection 90 Given mg 90 mg, Subcutaneous, Daily Standard, First dose on Mouna 05/15/20 at 2100, For 30 days 90 mg Given 05/15/2020 8:39 PM EST 05/17/2020 8:34 AM EST 20 mg fluoxetine (PROZAC) capsule 20 mg Given 20 mg, Oral, Daily Standard, First dos e on 05/10/20 at 0900, For 30 days 20 mg Given 05/16/2020 7:59 AM EST 20 mg Given 05/15/2020 9:29 AM EST 05/17/2020 8:33 AM EST 600 mg guaifenesin (MUCINEX) 12 hr tablet 600 Given mg 600 mg, Oral, 2 Times Daily, First dose on Tue05/13/20 at 1245, For 30 days, D o not crush or chew, 600 mg Given 05/16/2020 8:37 PM EST 600 mg Given 05/16/2020 8:00 AM EST 05/17/2020 6:41 AM EST 125 mcg levothyroxine (SYNTHROID) tablet 125 mcg Given 125 mcg, Oral, Daily at 0600, First dos e on 05/11/20 at 0600, For 30 days 125 mcg Given 05/16/2020 6:33 AM EST 125 mcg Given 05/15/2020 5:14 AM EST 05/17/2020 8:31 AM EST 2 patches Other lidocaine (LIDODERM) 5 % patch 2 patch Patch 2 patch, Transdermal, Daily Standard, Applied First dose on Tue05/13/20 at 0915, For 30 days, Apply to flank/back or any tender area. 12 hours on - 12 hours off , 2 patches Other Patch Applied 05/15/2020 9:29 AM EST 2 patches Other Patch Applied 05/14/2020 10:15 AM EST 05/17/2020 12:48 PM EST 500 mg methocarbamol (ROBAXIN) tablet 500 mg Given 500 mg, Oral, Four Times Daily Standard, First dose on Tue05/13/20 at 0915, For 30 days 500 mg Given 05/17/2020 8:33 AM EST 500 mg Given 05/16/2020 8:34 PM EST ondansetron (ZOFRAN) injection 4 mg 4 mg, Intravenous, Every 8 hours PRN, Nausea, Vomiting, Starting 05/11/20 at 0916, For 30 days 05/17/2020 8:34 AM EST 20 mg oxyCODONE HCl ER (OXYCONTIN) 12 hr Given tablet 20 mg 20 mg, Oral, Every 12 hours Standard (2 times per day), First dose on Tue05/14/20 at 2100, For 7 days, Do not crush or chew, 20 mg Given 05/16/2020 8:33 PM EST 20 mg Given 05/16/2020 8:01 AM EST 05/10/2020 8:30 AM EST 17 g polyethylene glycol (MIRALAX) packet 17 Given g 17 g, Oral, Daily Standard, First dose on Tue05/10/20 at 0745, For 30 days, Mix in 8 ounces of water, juice or milk . Avoid use in patients who require thickened liquids due to potential increased risk for aspiration., 05/17/2020 8:32 AM EST 20 mEq potassium chloride (K-DUR) dissolvable Given tablet 20 mEq 20 mEq, Oral, 2 Times Daily, First dose on 05/10/20 at 2100, For 30 days, May be dissolved in water for patients with a G-Tube or unable to swallow. If concern for clogging G-Tube, may contac t Pharmacy to switch formulation to a powder packet., 20 mEq Given 05/16/2020 8:34 PM EST 20 mEq Given 05/16/2020 8:00 AM EST simethicone (MYLICON) chewable tablet 8 0 mg 80 mg, Oral, Every 6 hours PRN, Flatulence, Starting [facility] 05/14/20 at 0738, For 30 days 05/17/2020 12:48 PM EST 500 mg sulfaSALAzine (AZULFIDINE) tablet 500 mg Given 500 mg, Oral, Four Times Daily Standard, First dose on 05/10/20 at 0900, For 30 days 500 mg Given 05/17/2020 8:33 AM EST 500 mg Given 05/16/2020 8:33 PM EST 05/17/2020 8:34 AM EST 10 mg torsemide (DEMADEX) tablet 10 mg Given 10 mg, Oral, Daily Standard, First dos e on 05/10/20 at 0900, For 30 days 10 mg Given 05/16/2020 8:00 AM EST 10 mg Given 05/13/2020 9:23 AM EST Action Date Dose Rate Site Medication Order MAR Action 05/13/2020 6:04 PM EST 650 mg acetaminophen (TYLENOL) tablet 650 mg Given 650 mg, Oral, Every 6 hours PRN, Mild Pain (Pain Scale Score 1-3), Starting 05/10/20 at 1204, For 30 days, Maximum daily dose of acetaminophen is 3,000 mg from all sources in 24 hours., 650 mg Given 05/12/2020 3:25 PM EST 650 mg Given 05/12/2020 8:52 AM EST 05/13/2020 9:49 PM EST 1 tablet amoxicillin-clavulanate (AUGMENTIN) Given 875-125 MG per tablet 1 tablet 1 tablet, Oral, Every 12 hours Standard (2 times per day), First dose on Tue05/13/20 at 2100, For 14 days 05/11/2020 10:07 AM EST 40 mg enoxaparin sodium (LOVENOX) injection 40 Given mg 40 mg, Subcutaneous, Daily Standard, First dose on Tue05/11/20 at 1000, For 30 days 05/14/2020 10:08 AM EST 40 mg enoxaparin sodium (LOVENOX) injection 40 Given mg 40 mg, Subcutaneous, Daily Standard, First dose (after last modification) on Tue05/14/20 at 0900, For 29 doses 05/10/2020 8:30 AM EST 80 mg enoxaparin sodium (LOVENOX) injection 80 Given mg 80 mg, Subcutaneous, Daily Standard, First dose on 05/10/20 at 0900, For 30 days 05/10/2020 3:29 AM EST 25 mcg fentaNYL (SUBLIMAZE) (PF) injection 25 Given by IV mcg push 25 mcg, Intravenous, Once, 05/10/20 at 0245, For 1 dose 05/12/2020 6:50 PM EST 50 mcg fentaNYL (SUBLIMAZE) (PF) injection Given Code/Trauma Medication, Starting 05/12/20 at 1840 50 mcg Given 05/12/2020 6:40 PM EST 05/15/2020 10:49 AM EST 50 mcg fentaNYL (SUBLIMAZE) (PF) injection Given Code/Trauma Medication, Starting Mouna 05/15/20 at 1049 05/17/2020 4:15 AM EST 6 mLs gadobutrol (GADAVIST) contrast injection Given 6 mL 6 mL (rounded from 6.18 mL = 0.1 mL/kg 61.8 kg), Intravenous, 1 TIME IMAGING, 05/17/20 at 0415, For 1 dose, Do no t mix or administer in the same IV line with other medications., 05/16/2020 10:27 AM EST 20 mLs iohexol (OMNIPAQUE) 240 MG/ML contrast Given 20 mL 20 mL, Oral, PRN, Contrast, Starting Fr i 05/16/20 at 0922, For 1 day, Dilute before administering, 20 mLs Given 05/16/2020 9:36 AM EST 05/16/2020 12:16 PM EST 100 mLs iohexol (OMNIPAQUE) 300 MG/ML contrast Given injection 100 mL 100 mL, Given by IV, 1 TIME IMAGING, Fr i 05/16/20 at 1130, For 1 dose 05/16/2020 12:16 PM EST 50 mLs iohexol (OMNIPAQUE) 300 MG/ML contrast Given injection 50 mL 50 mL, Given by IV, 1 TIME IMAGING, 05/16/20 at 1215, For 1 dose 05/13/2020 2:03 AM EST 75 mL/hr 75 mL/hr lactated ringers infusion New Bag at 75 mL/hr, Intravenous, Continuous, Starting 05/10/20 at 0630, For 30 days 75 mL/hr 75 mL/hr Rate/Dose Verify 05/12/2020 8:00 PM EST 75 mL/hr 75 mL/hr Rate/Dose Verify 05/12/2020 6:00 PM EST 05/12/2020 6:42 PM EST 8 mLs lidocaine (XYLOCAINE) 2 % injection Given Code/Trauma Medication, Starting 05/12/20 at 1842 05/15/2020 10:54 AM EST 8 mLs lidocaine (XYLOCAINE) 2 % injection Given Code/Trauma Medication, Starting Mouna 05/15/20 at 1054 05/10/2020 8:00 AM EST 100 mL/hr magnesium sulfate in dextrose 5 % Rate/Dose infusion (premix) 1 g Verify 1 g, Intravenous, Administer over 60 Minutes, Once, 05/10/20 at 0700, Fo r 1 dose 100 mL/hr Rate/Dose Verify 05/10/2020 7:25 AM EST 1 g 100 mL/hr New Bag 05/10/2020 7:21 AM EST 05/14/2020 6:25 AM EST 1 g 100 mL/hr magnesium sulfate in dextrose 5 % New Bag infusion (premix) 1 g 1 g, Intravenous, Administer over 60 Minutes, Once, 05/14/20 at 0615, Fo r 1 dose 05/15/2020 9:41 AM EST 1 g 100 mL/hr magnesium sulfate in dextrose 5 % New Bag infusion (premix) 1 g 1 g, Intravenous, Administer over 60 Minutes, Once, Mouna 05/15/20 at 0630, Fo r 1 dose 05/12/2020 6:40 PM EST 2 mg midazolam (PF) (VERSED) injection Given Code/Trauma Medication, Starting 05/12/20 at 1840 05/15/2020 10:49 AM EST 1 mg midazolam (PF) (VERSED) injection Given Code/Trauma Medication, Starting Mouna 05/15/20 at 1049 05/15/2020 3:56 PM EST 10 mg oxyCODONE (ROXICODONE) immediate release Given tablet 10 mg 10 mg, Oral, Every 4 hours PRN, Sever e Pain (Pain Scale Score 7-10), Starting 05/13/20 at 0633, For 3 days, Oxycodone immediate release is limited to 10 mg per dose. Higher doses ( only) require Pain Service consultation and approval., 10 mg Given 05/15/2020 5:14 AM EST 10 mg Given 05/14/2020 4:16 PM EST 05/13/2020 2:18 AM EST 5 mg oxyCODONE (ROXICODONE) immediate release Given tablet 5 mg 5 mg, Oral, Every 4 hours PRN, Moderate Pain (Pain Scale Score 4-6), Starting 05/10/20 at 1509, For 3 days, Oxycodone immediate release is limited to 10 mg per dose. Higher doses ( only) require Pain Service consultation and approval., 5 mg Given 05/12/2020 12:41 PM EST 5 mg Given 05/11/2020 11:37 PM EST 05/10/2020 11:18 AM EST 500 mg phosphorus (K PHOS NEUTRAL) tablet 500 Given mg 500 mg, Oral, Once, 05/10/20 at 1115, For 1 dose, Each 250 mg tablet contains: elemental phosphorous 250 mg (8 mmol), sodium 298 mg (12.9 mEq), and potassium 45 mg (1.1 mEq), 05/10/2020 3:30 AM EST 3.375 g 100 mL/hr piperacillin-tazobactam (ZOSYN) IVPB New Bag 3.375 g (premix) 3.375 g, Intravenous, Administer over 0.5 Hours, Once, 05/10/20 at 0245, For 1 dose, This specific formulation o f piperacillin-tazobactam is compatible with Lactated Ringers., 05/13/2020 10:53 AM EST 3.375 g 12.5 mL/hr piperacillin-tazobactam (ZOSYN) IVPB New Bag 3.375 g (premix) 3.375 g, Intravenous, Administer over 4 Hours, Every 8 hours, First dose on Sat 19/20 at 0930, For 5 days, This specific formulation of piperacillin-tazobactam is compatible with Lactated Ringers., 3.375 g 12.5 mL/hr New Bag 05/13/2020 2:09 AM EST 3.375 g 12.5 mL/hr New Bag 05/12/2020 5:36 PM EST 05/10/2020 10:16 PM EST 10 mEq potassium chloride (K-DUR) dissolvable Given tablet 10 mEq 10 mEq, Oral, Once, Tue05/10/20 at 2200, For 1 dose, May be dissolved in water for patients with a G-Tube or unable to swallow. If concern for clogging G-Tube, may contact Pharmacy t o switch formulation to a powder packet., 05/10/2020 7:55 AM EST 100 mL/hr potassium chloride 10 mEq in 100 mL IVPB Rate/Dose (premix) Verify 10 mEq, Intravenous, Administer over 60 Minutes, Every 1 hour, First dose on Tue05/10/20 at 0700, For 2 doses 10 mEq 100 mL/hr New Bag 05/10/2020 7:53 AM EST 05/10/2020 8:35 PM EST 10 mEq potassium chloride SA (K-DUR) CR tablet Given 10 mEq 10 mEq, Oral, 2 Times Daily, First dose on Tue05/10/20 at 0900, For 30 days, D o not crush or chew, 10 mEq Given 05/10/2020 8:30 AM EST 05/16/2020 8:00 AM EST 500 mg potassium phosphate (monobasic) (K-PHOS Given ORIGINAL) tablet 500 mg 500 mg, Oral, Four Times Daily-With Meals & Nightly, First dose on Tue05/13/20 at 1200, For 3 days, Dissolve tablets in 6-8 oz of water; for best results, soak tablets in water for 2-5 minutes, then stir and give to patient. , Each 500 mg tablet contains: elemental phosphorous 114 mg and potassium 144 mg (3.7 mEq), 500 mg Given 05/15/2020 8:39 PM EST 500 mg Given 05/15/2020 3:56 PM EST 05/13/2020 8:09 AM EST 6 mmol 25 mL/hr potassium phosphate infusion 6 mmol/100 New Bag mL (premix) 6 mmol, Intravenous, at 25 mL/hr, Every 2 hours, First dose on Tue05/13/20 at 0800, For 3 doses, Slower infusion rate s (e.g. over 4 hours) are recommended in patients with renal impairment and/or less severe hypophosphatemia. Product contains 8.8 mEq of potassium., 05/10/2020 3:30 AM EST 500 mLs 999 mL/hr sodium chloride 0.9 % bolus 500 mL New Bag 500 mL, Intravenous, Once, 05/10/20 at 0245, For 1 dose 05/14/2020 10:24 AM EST 6 mmol 25 mL/hr sodium phosphate infusion 6 mmol/100 mL New Bag (premix) 6 mmol, Intravenous, at 25 mL/hr, Every 2 hours, First dose on Tue05/14/20 at 0800, For 3 doses, Slower infusion rate (e.g. over 4 to 6 hours) are recommende d in patients with renal impairment and/o r less severe hypophosphatemia., 05/14/2020 6:52 PM EST 6 mmol 25 mL/hr sodium phosphate infusion 6 mmol/100 mL New Bag (premix) 6 mmol, Intravenous, at 25 mL/hr, Every 4 hours, First dose (after last reorder) on Tue05/14/20 at 1230, For 2 doses, Slower infusion rate (e.g. over 4 to 6 hours) are recommended in patients with renal impairment and/or less sever e hypophosphatemia., 6 mmol 25 mL/hr New Bag 05/14/2020 2:32 PM EST 05/15/2020 12:20 PM EST 6 mmol 25 mL/hr sodium phosphate infusion 6 mmol/100 mL New Bag (premix) 6 mmol, Intravenous, at 25 mL/hr, Once, Mouna 05/15/20 at 0630, For 1 dose, Slowe r infusion rate (e.g. 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
--- OUTSIDE RECORDS SUMMARY | 2020-06-18 15:42 | CCD | Continuity of Care Document ---
Author Author Munira LONG M.D. Organization Unknown Address [address] [id number] Phone [phone] Care Team Providers Care [employer] Repairer Name Role Phone Carine Del Toro M.D. AUTM [phone] Problems Active Problems Provider Date Type 2 diabetes mellitus Roshan Long M.D. Onset: 03/24 Hyperlipidemia Roshan Long M.D. Onset: 3 Benign essential hypertension Roshan Long M.D. Onset: 04/18/2013 Ulcerative colitis Roshan Long M.D. Onset: 3 H/O: pulmonary embolus Ethel Armstrong, [facility] Onset: 017 Social History Type Date Description Comments Sex Unknown ETOH Use Denies alcohol use Tobacco Use Start: Unknown End: Unknown Patient is a former smoker quit 1999 Allergies, Adverse Reactions, Alerts Active Allergies Reaction Severity Comments Date No Known Drug Allergy 2012 Medications Active Medications SIG Qnty Indications Ordering Provide r Date Coumadin 4mg Tablets take 1 by mouth every day . 90taRoshan Alexander M.D. 02/27/20 20 Potassium Chloride ER 10Meq Capsul es ER 2 by mouth once daily 180caps Roshan Long M.D. 06/23 Torsemide 10mg Tablets take 1-2 tablet by mouth every day, take second dose if weight is up more than 2 lbs 90taRoshan Alexander M.D. 07/05/2016 Fluoxetine HCL 20mg Capsules Take 1 Capsule Daily 90Roshan Gray M.D. 06/30/19 16 Sulfasalazine 500mg Tablets Aman Rubin Levothyroxine Sodium 125mcg Tablet s 1 by mouth every day Unknown Lovenox 80mg/0.8ML Solution inject once dose twice a day Unknown History Medications Liothyronine Sodium 25mcg Tablets 1 p.o. qd x 30 days Unknown 02/24/2020 - 07/2019 Immunizations CPT Code Status Date Vaccine Lot # [id number] Given 01/30/2020 Influenza Virus Vaccine, Quadrivalent, Slit Virus, Im Use 3Y & Up [id number] Given 02/19/2019 Influenza Virus Vaccine, Quadrivalent, Slit Virus, Im Use 3Y & Up [id number] Given 07/11/2015 Pneumococcal Immunization [id number] Vital Signs Date Vital Result Comment 05/05/2020 11:29am BP Systolic 122 mmHg BP Diastolic 80 mmHg Body Temperature 97.6 F Heart Rate 70 /min Respiratory Rate 18 /min Height 58 inches 4'10" Weight 166.00 lb [place] Body Weight 100 lb BMI (Body Mass Index) 34.7 kg/m2 04/29/2020 3:55pm BP Systolic 112 mmHg BP Diastolic 86 mmHg Body Temperature 98.0 F Heart Rate 96 /min Respiratory Rate 20 /min Height 58 inches 4'10" Weight 166.00 lb [place] Body Weight 100 lb BMI (Body Mass Index) 34.7 kg/m2 O2 % BldC Oximetry 95 % Results Test Acquired Date Facility Test Result H/L Range Note Ua Routine 05/09/2020 [facility] ([facility]) [phone] Appearance, Urine CLEAR Normal Clear Color, Urine YELLOW Normal Yellow PH,Urine 6.0 units Normal 5.0-9.0 Specific [place] Urine Auto >1.060 High 1.002-1.035 Protein, Urine [...] 0-1 Influenxa A/B RSV Covid Amp 05/09/2020 [facility] ([facility]) [phone] Influenza A Amplification NEGATIVE Normal Negati ve 1 Influenza B Amplification NEGATIVE Normal Negative 2 RSV Amplification NEGATIVE Normal Negative 3 Sars Covid-19 Amplification NEGATIVE Normal Negative 4 [facility] [phone] White Blood Count 20.6 10 High 4.0-10.0 [...] 36.0-66.0 Lymph % 5.1 % Low 24.0-44.0 [place] % 10.5 % High 0.0-5.0 Eos % 3.2 % High 0.0-3.0 Baso % 0.5 % Normal 0.0-1.0 Immature Granulocyte % 1.0 % Normal 0-3.0 Nucleated Red Blood Cell % 0.0 % Normal 0-0 Neutrophils # 16.4 10 High 1.5-8.5 Lymph # 1.1 10 Low 1.5-5.0 [place] # 2.2 10 High 0.0-0.8 Eos # 0.7 10 High 0.0-0.5 Baso # 0.1 10 Normal 0.0-0.2 Prothrombin Time/Inr 05/09/2020 [facility] ( [facility]) [phone] Prothrombin Time 13.7 seconds Normal 12.5-14.3 Inr 1.03 Normal 5 Laboratory test finding 05/09/2020 [facility] ([facility]) [phone] Partial Thromboplastin Time 36.0 seconds Normal 24 .2-38.5 Lactic Acid Sepsis Protocol 1.1 mmol/L Normal 0.4-2.0 6 Cardiac Marker Panel 05/09/2020 [facility] ( [facility]) [phone] CPK Creatine Phosphokinase 18 U/L Low 26-19 2 CK-MB Value Mass < 1.0 NG/ML Normal <3.6 MB/CK Relative Index 5.56 High < Or =4 7 Troponin I < 0.02 NG/ML Normal < 0.10 8 Liver Profile 05/09/2020 [facility] ([facility]) [phone] Ast/Sgot 24 U/L Normal 7-37 Alt/SGPT 22 U/L Normal 12-78 Alkaline Phosphatase 174 U/L High 45-117 Bilirubin,Total 0.4 mg/dL Normal 0.2-1.0 Bilirubin,Direct 0.2 mg/dL Normal 0.0-0.2 Total Protein 6.7 GM/DL Normal 6.4-8.2 Albumin 2.7 GM/DL Low 3.2-5.2 Albumin/Globulin Ratio 0.7 Low 1.2-2.2 Basic Metabolic Profile 05/09/2020 [facility] ([facility]) [phone] Glucose, Fasting 127 mg/dL High 70-100 Blood [...] mg/dL Normal 8.8-10.2 Laboratory test finding 05/09/2020 [facility] ([facility]) [phone] Lipase 133 U/L Normal 73-393 10 CMP [...] eGFR 74 # Calc 12 eGFR Non-Afr. [place]ine[place] 63 # Calc 13 CBC 05/05/2020 [facility]Inhouse [...] fL 9.0 - 13.0 Prothrombin Time/Inr 05/01/2020 [facility] ( [facility]) [phone] Prothrombin Time 14.6 seconds High 12.5-14.3 Inr 1.12 Normal 14 CBC With Differential 04/23/2020 [facility] ([facility]) [phone] White Blood Count 12.4 10 High 4.0-10.0 [...] 36.0-66.0 Lymph % 10.7 % Low 24.0-44.0 [place] % 11.2 % High 0.0-5.0 Eos % 7.1 % High 0.0-3.0 Baso % 0.8 % Normal 0.0-1.0 Immature Granulocyte % 0.4 % Normal 0-3.0 Nucleated Red Blood Cell % 0.0 % Normal 0-0 Neutrophils # 8.7 10 High 1.5-8.5 Lymph # 1.3 10 Low 1.5-5.0 [place] # 1.4 10 High 0.0-0.8 Eos # 0.9 10 High 0.0-0.5 Baso # 0.1 10 Normal 0.0-0.2 Prothrombin Time/Inr 04/23/2020 [facility] ( [facility]) [phone] Prothrombin Time 22.5 seconds High 12.5-14.3 Inr 1.93 Normal 15 Liver Profile 04/23/2020 [facility] ([facility]) [phone] Ast/Sgot 45 U/L High 7-37 Alt/SGPT 64 U/L Normal 12-78 Alkaline Phosphatase 237 U/L High 45-117 Bilirubin,Total 0.4 mg/dL Normal 0.2-1.0 Bilirubin,Direct 0.1 mg/dL Normal 0.0-0.2 Total Protein 7.5 GM/DL Normal 6.4-8.2 Albumin 3.2 GM/DL Normal 3.2-5.2 Albumin/Globulin Ratio 0.7 Low 1.2-2.2 Basic Metabolic Profile 04/23/2020 [facility] ([facility]) [phone] Glucose, Fasting 128 mg/dL High 70-100 Blood [...] mg/dL Normal 8.8-10.2 PT With Inr-Therapy 04/15/2020 [facility] Prothrombin Time-Therapy 61.0 International Normalized Ratio 5.1 Dosage SKIP WTH Comment 1 CONT 2 DAILY Recheck 2 WEEKS PT With Inr-Therapy 03/17/2020 [facility] Prothrombin Time-Therapy 25.4 International Normalized [...] eGFR 85 # Calc 17 eGFR Non-Afr. Guinean 73 # Calc 18 PT With Inr-Therapy 03/10/2020 [facility] Prothrombin Time-Therapy 32.0 International Normalized Ratio 2.7 Dosage 4 DAILY Recheck 1 WEEK PT With Inr-Therapy 03/03/2020 [facility] Prothrombin Time-Therapy 42.3 International Normalized Ratio 3.5 Dosage STOP SHOTS Comment 1 4 DAILY Recheck 1 WEEK PT With Inr-Therapy 02/29/2020 [facility] Prothrombin Time-Therapy 13.1 International Normalized Ratio 1.1 Dosage CONT SHOTS Comment 1 6M DAILY Recheck 03/03 PT & Aptt 02/18/2020 [facility]) [phone] Prothrombin Time 13.8 seconds Normal 12.5-14.3 Inr 1.03 Normal 19 Partial Thromboplastin Time 24.1 seconds Low 24.2-38.5 Cardiac Marker Panel 02/18/2020 [facility] ( [facility]) [phone] CPK Creatine Phosphokinase 45 U/L Normal 26-19 2 CK-MB Value Mass 1.6 NG/ML Normal <3.6 MB/CK Relative Index 3.56 Normal < Or =4 20 Troponin I 0.22 NG/ML < 0.10 21 Istat Chem8+ Panel 02/18/2020 [facility] [phone] iSTAT HCT 41.0 % Normal 38.0-51.0 iSTAT Glucose 167 mg/dL High 70-105 iSTAT Sodium 140 mEq/L Normal 136-145 iSTAT Potassium 2.8 mEq/L Critical low 3.5-5.1 iSTAT CA++ 4.7 mg/dL Normal 4.5-5.3 iSTAT Chloride 101 mEq/L Normal 98-109 iSTAT Co2 28.0 MM/L High 23.0-27.0 iSTAT BUN 17 mg/dL Normal 8-26 iSTAT Creatinine 1.0 mg/dL Normal 0.6-1.3 CBC With Differential 02/18/2020 [facility]) [phone] White Blood Count 15.3 10 High 4.0-10.0 [...] 36.0-66.0 Lymph % 5.4 % Low 24.0-44.0 [place] % 8.6 % High 0.0-5.0 Eos % 2.1 % Normal 0.0-3.0 Baso % 0.6 % Normal 0.0-1.0 Immature Granulocyte % 0.6 % Normal 0-3.0 Nucleated Red Blood Cell % 0.0 % Normal 0-0 Neutrophils # 12.6 10 High 1.5-8.5 Lymph # 0.8 10 Low 1.5-5.0 [place] # 1.3 10 High 0.0-0.8 Eos # 0.3 10 Normal 0.0-0.5 Baso # 0.1 10 Normal 0.0-0.2 Laboratory test finding 02/18/2020 [facility] ([facility]) [phone] Lactic Acid Sepsis Protocol 2.4 mmol/L Critical high 0 .4-2.0 22 Cardiac Marker Panel 02/18/2020 [facility]) [phone] CPK Creatine Phosphokinase 41 U/L Normal 26-19 2 CK-MB Value Mass < 1.0 NG/ML Normal <3.6 MB/CK Relative Index 2.44 Normal < Or =4 23 Troponin I 0.08 NG/ML Normal < 0.10 24 Liver Profile 02/18/2020 [facility] ([facility]) [phone] Ast/Sgot 14 U/L Normal 7-37 Alt/SGPT 14 U/L Normal 12-78 Alkaline Phosphatase 150 U/L High 45-117 Bilirubin,Total 0.4 mg/dL Normal 0.2-1.0 Bilirubin,Direct 0.1 mg/dL Normal 0.0-0.2 Total Protein 7.1 GM/DL Normal 6.4-8.2 Albumin 3.1 GM/DL Low 3.2-5.2 Albumin/Globulin Ratio 0.8 Low 1.2-2.2 Laboratory test finding 02/18/2020 [facility] ([facility]) [phone] Lipase 139 U/L Normal 73-393 25 CMP [...] eGFR 85 # Calc 26 eGFR Non-Afr. [place] 73 # Calc 27 CBC 01/30/2020 [facility]/Inhouse [...] pathogens. DISCLAIMER: Testing was performed using the [employer] SARS-CoV-2 test. This test was developed and its performance characteristics determined by [employer]. This test has not been FDA cleared [...] RISK) 2.5-3.5 RECURRENT MYOCARDIAL INFARCTION 2.5-3.5 6 note:<nlbl:demographic_[facility] ed> Y/N query for Sepsis Lactate Rule: Y 7 DIAGNOSIS CRITERIA MMB ng/ml Relative Index (RI) NON-AMI < or = 5 N/A AQUINO ZONE > 5 < or = 4 AMI > 5 > 4 8 Troponin I Reference Interva l for [place] LOCI: 99th Percentile= 0.00-0.045 ng/ml Risk Stratification: [...] Little GFR Left ESRD GFR <15 on BENCH SHEAR OPERATOR 10 note:<nlbl:[facility] ed> 11 NORMAL RANGES Age WBC RBC [...] HCT IS 5% LESS SOURCE FOR DATA: [employer] 1800 OPERATION MANUAL( AUTOMATED BLOOD COUNTS AND [...] Little GFR Left ESRD GFR <15 on BENCH SHEAR OPERATOR 17 CKD-EPI 18 CKD-EPI 19 THERAPUTIC HUMAN [...] 21 Troponin I Reference Interva l for Drimmi LOCI: 99th Percentile= 0.00-0.045 ng/ml Risk Stratification: <= 0.10 ng/ml Decreased Risk for Adverse Clinical Events. 0.10-1.50 ng/ml Increased Risk for Adv erse Clinical Events. Evaluation of additional criterion and/or repeat testing in 2-6 hours is suggested to rule out myocardial damage. >= 1.50 ng/ml Indicative of Myocardial Injury. 22 note:<nlbl:demographic_chang ed> Y/N query for Sepsis Lactate Rule: Y 23 DIAGNOSIS CRITERIA MMB ng/ml Relative Index (RI) NON-AMI < or = 5 N/A AQUINO ZONE > 5 < or = 4 AMI > 5 > 4 24 Troponin I Reference Interva l for Siemens [place] LOCI: 99th Percentile= 0.00-0.045 ng/ml Risk Stratification: <= 0.10 ng/ml Decreased Risk for Adverse Clinical Events. 0.10-1.50 ng/ml Increased Risk for Adv erse Clinical Events. Evaluation of additional criterion and/or repeat testing in 2-6 hours is suggested to rule out myocardial damage. >= 1.50 ng/ml Indicative of Myocardial Injury. 25 note:<nlbl:demographic_chang ed> 26 CKD-EPI 27 CKD-EPI 28 Below the Measuring Range Procedures Date Code Description Status 04/15/2020 64150 Capillary Blood Collection Finge r, Heel, Ear Stick Completed 03/10/2020 23347 Capillary Blood Collection Finge r, Heel, Ear Stick Completed 03/03/2020 08235 Capillary Blood Collection Finge r, Heel, Ear Stick Completed 02/29/2020 01499 Capillary Blood Collection Finge r, Heel, Ear Stick Completed 03/10/2016 [id number] Mammogram Completed Medical Devices Description No Information Available Encounters Type Date Location Provider Dx Diagnosis Office Visit 05/05/2020 11:30a [place] [facility] Roshan Long M. D. K75.0 Abscess of liver I82.401 Acute embolism and thombos u nsp deep veins of r low extrem E78.5 Hyperlipidemia, unspecified Office Visit 04/29/2020 1:15p [place] [facility] Roshan Long M. D. K81.0 Acute cholecystitis K75.0 Abscess of liver I81 Portal vein thrombosis R60.9 Edema, unspecified Office Visit 04/15/2020 2:45p [place] [facility] Roshan Long M. D. K81.0 Acute cholecystitis K75.0 Abscess of liver I81 Portal vein thrombosis I26.99 Other pulmonary embolism wit hout acute cor pulmonale Office Visit 03/17/2020 2:30p [place] [facility] Roshan Long M. D. I26.99 Other pulmonary embolism without acute cor pulmonale K81.0 Acute cholecystitis Office Visit 02/27/2020 10:40a [place] [facility] Roshan Long M. D. I26.99 Other pulmonary embolism without acute cor pulmonale K81.0 Acute cholecystitis Office Visit 01/30/2020 1:15p [place] [facility] Roshan Long M. D. R63.5 Abnormal weight gain E05.[address] w diffuse goi [address] w/o thyrotoxic crisis F33.0 Major depressive disorder, r ecurrent, mild D64.9 Anemia, unspecified Z23 Encounter for immunization Assessments Date Code Description Provider 05/05/2020 K75.0 Abscess of liver Roshan Long M.D. 05/05/2020 I82.401 Acute embolism and t hrombosis of unspecified deep veins of right lower extremity Roshan Long M.D. 05/05/2020 E78.5 [facility], [facility] 04/29/2020 K81.0 Acute cholecystitis [...] pulmonary embolism without acute cor pulmonale Laboratory [place] Schedule 03/10/2020 I26.99 Other pulmonary embolism without acute cor pulmonale Roshan Long M.D. 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 03/03/2020 I26.99 Other pulmonary embolism without acute cor pulmonale Roshan Long M.D. 03/03/2020 I26.99 Other pulmonary embolism without acute cor pulmonale Laboratory [place] Schedule 03/03/2020 Z79.01 [facility] (current) use of antic oagulants Roshan Long M.D. 02/29/2020 I26.99 Other pulmonary embolism without acute cor pulmonale Roshan Long M.D. 02/29/2020 I26.99 Other pulmonary embolism without acute cor pulmonale Laboratory [place] Schedule 02/29/2020 Z79.01 [facility] (current) use of antic oagulants Roshan Long M.D. 02/27/2020 I26.99 Other pulmonary embolism without [...] Benitez M.D. Plan of Treatment Future Appointment(s):* 05/19/2020 11:30 am - Roshan Long M.D. at [place] [facility] Functional Status Description No Information Available Mental Status Description No Information Available Referrals Refer to Reason for Referral Status Appt Date [facility] Oncology & Hematology recurrent thrombosis despite therapeutic INR- eval and rx Sent 06/09/2020 [address] [facility] [address] [place] [address] Andrés Araujo M.D. cholecystitis, recent PE- eval and rx Sent 03/12/2020 [address] [facility] [address] [place] [address] [phone] Elliot Gomes M.D. 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
--- OUTSIDE RECORDS SUMMARY | 2020-06-18 15:42 | CCD | Continuity of Care Document ---
Author Author Munira LONG M.D. Organization Unknown Address [address] [id number] Phone [phone] Care Team Providers Care Site Reliability Engineer Name Role Phone Carine Del Toro M.D. AUTM [phone] Problems Active Problems Provider Date Type 2 diabetes mellitus Roshan Long M.D. Onset: 03/24 Hyperlipidemia Roshan Long M.D. Onset: 3 Benign essential hypertension Roshan Long M.D. Onset: 04/18/2013 Ulcerative colitis Roshan Long M.D. Onset: 3 H/O: pulmonary embolus Ethel Armstrong, [facility] Onset: 017 Social History Type Date [...] CPT Code Status Date Vaccine Lot # [id number] Given 01/30/2020 Influenza Virus Vaccine, Quadrivalent, Slit Virus, Im Use 3Y & Up [id number] Given 02/19/2019 Influenza Virus Vaccine, Quadrivalent, Slit Virus, Im Use 3Y & Up [id number] 52881 Given 07/11/2015 Pneumococcal Immunization L0 [id number] Vital Signs Date Vital Result Comment 05/05/2020 11:29am BP Systolic 122 mmHg BP Diastolic 80 mmHg Body Temperature 97.6 F Heart Rate 70 /min Respiratory Rate 18 /min Height 58 inches 4'10" Weight 166.00 lb [place] Body Weight 100 lb BMI (Body Mass Index) 34.7 kg/m2 04/29/2020 3:55pm BP Systolic 112 mmHg BP Diastolic 86 mmHg Body Temperature 98.0 F Heart Rate 96 /min Respiratory Rate 20 /min Height 58 inches 4'10" Weight 166.00 lb [place] Body Weight 100 lb BMI (Body Mass Index) 34.7 kg/m2 O2 % BldC Oximetry 95 % Results Test Acquired Date Facility Test Result H/L Range Note Ua Routine 05/09/2020 [facility] [place] ([facility]) [phone] Appearance, Urine CLEAR Normal Clear Color, Urine YELLOW Normal Yellow PH,Urine 6.0 units Normal 5.0-9.0 Specific [place] Urine Auto >1.060 High 1.002-1.035 Protein, Urine [...] 0-1 Influenxa A/B RSV Covid Amp 05/09/2020 [facility] (Interface) [phone] Influenza A Amplification NEGATIVE Normal Negati ve 1 Influenza B Amplification NEGATIVE Normal Negative 2 RSV Amplification NEGATIVE Normal Negative 3 Sars Covid-19 Amplification NEGATIVE Normal Negative 4 [facility] With [facility] [phone] White Blood Count 20.6 10 High 4.0-10.0 [...] 36.0-66.0 Lymph % 5.1 % Low 24.0-44.0 [place] % 10.5 % High 0.0-5.0 Eos % 3.2 % High 0.0-3.0 Baso % 0.5 % Normal 0.0-1.0 Immature Granulocyte % 1.0 % Normal 0-3.0 Nucleated Red Blood Cell % 0.0 % Normal 0-0 Neutrophils # 16.4 10 High 1.5-8.5 Lymph # 1.1 10 Low 1.5-5.0 [place] # 2.2 10 High 0.0-0.8 Eos # 0.7 10 High 0.0-0.5 Baso # 0.1 10 Normal 0.0-0.2 Prothrombin Time/Inr 05/09/2020 [facility] [place] ( Interface) [phone] Prothrombin Time 13.7 seconds Normal 12.5-14.3 Inr 1.03 Normal 5 Laboratory test finding 05/09/2020 [facility] (Interface) [phone] Partial Thromboplastin Time 36.0 seconds Normal 24 .2-38.5 Lactic Acid Sepsis Protocol 1.1 mmol/L Normal 0.4-2.0 6 Cardiac Marker Panel 05/09/2020 [facility] [place] ( Interface) [phone] CPK Creatine Phosphokinase 18 U/L Low 26-19 2 CK-MB Value Mass < 1.0 NG/ML Normal <3.6 MB/CK Relative Index 5.56 High < Or =4 7 Troponin I < 0.02 NG/ML Normal < 0.10 8 Liver Profile 05/09/2020 [facility] [place] (I nterface) [phone] Ast/Sgot 24 U/L Normal 7-37 Alt/SGPT 22 U/L Normal 12-78 Alkaline Phosphatase 174 U/L High 45-117 Bilirubin,Total 0.4 mg/dL Normal 0.2-1.0 Bilirubin,Direct 0.2 mg/dL Normal 0.0-0.2 Total Protein 6.7 GM/DL Normal 6.4-8.2 Albumin 2.7 GM/DL Low 3.2-5.2 Albumin/Globulin Ratio 0.7 Low 1.2-2.2 Basic Metabolic Profile 05/09/2020 [facility] (Interface) [phone] Glucose, Fasting 127 mg/dL High 70-100 Blood [...] mg/dL Normal 8.8-10.2 Laboratory test finding 05/09/2020 [facility] (Interface) [phone] Lipase 133 U/L Normal 73-393 10 CMP [...] eGFR 74 # Calc 12 eGFR Non-Afr. Tunisian 63 # Calc 13 CBC 05/05/2020 [facility]/Inhouse [...] fL 9.0 - 13.0 Prothrombin Time/Inr 05/01/2020 [facility] [place] ( Interface) [phone] Prothrombin Time 14.6 seconds High 12.5-14.3 Inr 1.12 Normal 14 CBC With Differential 04/23/2020 [facility] [place] (Interface) [phone] White Blood Count 12.4 10 High 4.0-10.0 [...] 36.0-66.0 Lymph % 10.7 % Low 24.0-44.0 [place] % 11.2 % High 0.0-5.0 Eos % 7.1 % High 0.0-3.0 Baso % 0.8 % Normal 0.0-1.0 Immature Granulocyte % 0.4 % Normal 0-3.0 Nucleated Red Blood Cell % 0.0 % Normal 0-0 Neutrophils # 8.7 10 High 1.5-8.5 Lymph # 1.3 10 Low 1.5-5.0 [place] # 1.4 10 High 0.0-0.8 Eos # 0.9 10 High 0.0-0.5 Baso # 0.1 10 Normal 0.0-0.2 Prothrombin Time/Inr 04/23/2020 [facility] [place] ( Interface) [phone] Prothrombin Time 22.5 seconds High 12.5-14.3 Inr 1.93 Normal 15 Liver Profile 04/23/2020 [facility] [place] (I nterfa) [phone] Ast/Sgot 45 U/L High 7-37 Alt/SGPT 64 U/L Normal 12-78 Alkaline Phosphatase 237 U/L High 45-117 Bilirubin,Total 0.4 mg/dL Normal 0.2-1.0 Bilirubin,Direct 0.1 mg/dL Normal 0.0-0.2 Total Protein 7.5 GM/DL Normal 6.4-8.2 Albumin 3.2 GM/DL Normal 3.2-5.2 Albumin/Globulin Ratio 0.7 Low 1.2-2.2 Basic Metabolic Profile 04/23/2020 [facility] (Interface) [phone] Glucose, Fasting 128 mg/dL High 70-100 Blood [...] mg/dL Normal 8.8-10.2 PT With Inr-Therapy 04/15/2020 [facility] Prothrombin Time-Therapy 61.0 International Normalized Ratio 5.1 Dosage SKIP WTH Comment 1 CONT 2 DAILY Recheck 2 WEEKS PT With Inr-Therapy 03/17/2020 [facility] Prothrombin Time-Therapy 25.4 International [...] eGFR 85 # Calc 17 eGFR Non-Afr. Tunisian 73 # Calc 18 PT With Inr-Therapy 03/10/2020 [facility] Prothrombin Time-Therapy 32.0 International Normalized Ratio 2.7 Dosage 4 DAILY Recheck 1 WEEK PT With Inr-Therapy 03/03/2020 [facility] Prothrombin Time-Therapy 42.3 International Normalized Ratio 3.5 Dosage STOP SHOTS Comment 1 4 DAILY Recheck 1 WEEK PT With Inr-Therapy 02/29/2020 [facility] Prothrombin Time-Therapy 13.1 International Normalized Ratio 1.1 Dosage CONT SHOTS Comment 1 6M DAILY Recheck 03/03 PT & Aptt 02/18/2020 [facility]) [phone] Prothrombin Time 13.8 seconds Normal 12.5-14.3 Inr 1.03 Normal 19 Partial Thromboplastin Time 24.1 seconds Low 24.2-38.5 Cardiac Marker Panel 02/18/2020 [facility] ( [facility]) [phone] CPK Creatine Phosphokinase 45 U/L Normal 26-19 2 CK-MB Value Mass 1.6 NG/ML Normal <3.6 MB/CK Relative Index 3.56 Normal < Or =4 20 Troponin I 0.22 NG/ML < 0.10 21 Istat Chem8+ Panel 02/18/2020 [facility] [phone] iSTAT HCT 41.0 % Normal 38.0-51.0 iSTAT Glucose 167 mg/dL High 70-105 iSTAT Sodium 140 mEq/L Normal 136-145 iSTAT Potassium 2.8 mEq/L Critical low 3.5-5.1 iSTAT CA++ 4.7 mg/dL Normal 4.5-5.3 iSTAT Chloride 101 mEq/L Normal 98-109 iSTAT Co2 28.0 MM/L High 23.0-27.0 iSTAT BUN 17 mg/dL Normal 8-26 iSTAT Creatinine 1.0 mg/dL Normal 0.6-1.3 CBC With Differential 02/18/2020 [facility]) [phone] White Blood Count 15.3 10 High 4.0-10.0 [...] 36.0-66.0 Lymph % 5.4 % Low 24.0-44.0 [place] % 8.6 % High 0.0-5.0 Eos % 2.1 % Normal 0.0-3.0 Baso % 0.6 % Normal 0.0-1.0 Immature Granulocyte % 0.6 % Normal 0-3.0 Nucleated Red Blood Cell % 0.0 % Normal 0-0 Neutrophils # 12.6 10 High 1.5-8.5 Lymph # 0.8 10 Low 1.5-5.0 [place] # 1.3 10 High 0.0-0.8 Eos # 0.3 10 Normal 0.0-0.5 Baso # 0.1 10 Normal 0.0-0.2 Laboratory test finding 02/18/2020 [facility] ([facility]) [phone] Lactic Acid Sepsis Protocol 2.4 mmol/L Critical high 0 .4-2.0 22 Cardiac Marker Panel 02/18/2020 [facility]) [phone] CPK Creatine Phosphokinase 41 U/L Normal 26-19 2 CK-MB Value Mass < 1.0 NG/ML Normal <3.6 MB/CK Relative Index 2.44 Normal < Or =4 23 Troponin I 0.08 NG/ML Normal < 0.10 24 Liver Profile 02/18/2020 [facility] [place] (I nterface) [phone] Ast/Sgot 14 U/L Normal 7-37 Alt/SGPT 14 U/L Normal 12-78 Alkaline Phosphatase 150 U/L High 45-117 Bilirubin,Total 0.4 mg/dL Normal 0.2-1.0 Bilirubin,Direct 0.1 mg/dL Normal 0.0-0.2 Total Protein 7.1 GM/DL Normal 6.4-8.2 Albumin 3.1 GM/DL Low 3.2-5.2 Albumin/Globulin Ratio 0.8 Low 1.2-2.2 Laboratory test finding 02/18/2020 [facility] (Interface) [phone] Lipase 139 U/L Normal 73-393 25 CMP [...] eGFR 85 # Calc 26 eGFR Non-Afr. Tunisian 73 # Calc 27 CBC 01/30/2020 [facility]/Inhouse [...] pathogens. DISCLAIMER: Testing was performed using the [employer] SARS-CoV-2 test. This test was developed and its performance characteristics determined by [employer]. This test has not been FDA cleared [...] RISK) 2.5-3.5 RECURRENT MYOCARDIAL INFARCTION 2.5-3.5 6 note:<nlbl:demographic_[facility] ed> Y/N query for Sepsis Lactate Rule: Y 7 DIAGNOSIS CRITERIA MMB ng/ml Relative Index (RI) NON-AMI < or = 5 N/A AQUINO ZONE > 5 < or = 4 AMI > 5 > 4 8 Troponin I Reference Interva l for [employer] [place] LOCI: 99th Percentile= 0.00-0.045 ng/ml Risk Stratification: [...] Little GFR Left ESRD GFR <15 on [employer] 10 note:<nlbl:[facility] ed> 11 NORMAL RANGES Age WBC RBC [...] HCT IS 5% LESS SOURCE FOR DATA: [employer] 1800 OPERATION MANUAL( AUTOMATED BLOOD COUNTS AND [...] Little GFR Left ESRD GFR <15 on [employer] 17 CKD-EPI 18 CKD-EPI 19 THERAPUTIC HUMAN [...] 21 Troponin I Reference Interva l for [employer] LOCI: 99th Percentile= 0.00-0.045 ng/ml Risk Stratification: [...] Troponin I Reference Interva l for [employer] [place] LOCI: 99th Percentile= 0.00-0.045 ng/ml Risk Stratification: [...] Range Procedures Date Code Description Status 04/15/2020 83698 Capillary Blood Collection Finge r, Heel, Ear Stick Completed 03/10/2020 59736 Capillary Blood Collection Finge r, Heel, Ear Stick Completed 03/03/2020 56853 Capillary Blood Collection Finge r, Heel, Ear Stick Completed 02/29/2020 48361 Capillary Blood Collection Finge r, Heel, Ear Stick Completed 03/10/2016 [id number] Mammogram Completed Medical Devices Description No Information Available Encounters Type Date Location Provider Dx Diagnosis Office Visit 05/05/2020 11:30a [facility] Roshan Long M. D. K75.0 Abscess of liver I82.401 Acute embolism and thombos u nsp deep veins of r low extrem E78.5 Hyperlipidemia, unspecified Office Visit 04/29/2020 1:15p [facility] Roshan Long M. D. K81.0 Acute cholecystitis K75.0 Abscess of liver I81 Portal vein thrombosis R60.9 Edema, unspecified Office Visit 04/15/2020 2:45p [facility] Roshan Long M. D. K81.0 Acute cholecystitis K75.0 Abscess of liver I81 Portal vein thrombosis I26.99 Other pulmonary embolism wit hout acute cor pulmonale Office Visit 03/17/2020 2:30p [facility] Roshan Long M. D. I26.99 Other pulmonary embolism without acute cor pulmonale K81.0 Acute cholecystitis Office Visit 02/27/2020 10:40a [facility] Roshan Long M. D. I26.99 Other pulmonary embolism without acute cor pulmonale K81.0 Acute cholecystitis Office Visit 01/30/2020 1:15p [facility] Roshan Long M. D. R63.5 Abnormal [...] Roshan Long M.D. 05/05/2020 E78.5 Hyperlipidemia, unspecified [facility] M.[facility]. 04/29/2020 K81.0 Acute cholecystitis [...] pulmonary embolism without acute cor pulmonale Laboratory [facility] 03/10/2020 I26.99 Other pulmonary embolism without acute cor pulmonale Roshan Long M.D. 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 03/03/2020 I26.99 Other pulmonary embolism without acute cor pulmonale Roshan Long M.D. 03/03/2020 I26.99 Other pulmonary embolism without acute cor pulmonale Laboratory [facility] Schedule 03/03/2020 Z79.01 [facility] (current) use of antic oagulants Roshan Long M.D. 02/29/2020 I26.99 Other pulmonary embolism without acute cor pulmonale Roshan Long M.D. 02/29/2020 I26.99 Other pulmonary embolism without acute cor pulmonale Laboratory [facility] Schedule 02/29/2020 Z79.01 [facility] (current) use of antic oagulants Roshan Long [...] 11:30 am - Roshan Long M.D. at [facility] Functional Status Description No Information Available Mental Status Description No Information Available Referrals Refer to Reason for Referral Status Appt Date [facility] Oncology & Hematology recurrent thrombosis despite therapeutic INR- eval and rx Sent 06/09/2020 [address] [facility] [address] [place] [address] Andrés Araujo M.D. cholecystitis, recent PE- eval and rx Sent 03/12/2020 [address] [facility] [address] [place] [address] [phone] Elliot Gomes M.D. r/o Graves ophthalmopathy Sent [phone] [place] [address] [phone]
--- OUTSIDE RECORDS SUMMARY | 2020-06-18 15:42 | CCD | Continuity of Care Document ---
Author Author Munira GRAVES FOOD PORTER Organization Unknown Address [address] [place] [id number] Phone [phone] Care Team Providers Care Aids Counselor Name Role Phone Roshan Long MD AUTM [phone] Problems Active Problems Provider Date Postablative hypothyroidism Carine Del Toro MD Onset: 04/09 Palpitations Carine Del Toro MD Onset: 10/04/2017 Dominant nodule of thyroid Carine Del Toro MD Onset: 2016 Toxic diffuse goiter with no crisis Carine Del Toro MD Onse t: 01/26/2017 Social History Type Date Description Comments Sex Unknown Cigarette Use Former Cigarette Smoker 1/2 Pack Daily x 20 years quit in 2000 ETOH Use Denies alcohol use Tobacco Use Start: Unknown End: Unknown Patient is a former smoker Smoking Status Reviewed: 05/05/20 Patient is a former smoker Allergies, Adverse Reactions, Alerts Description No Known Drug Allergies Medications Active Medications SIG Qnty Indications Ordering Provide r Date Lovenox 30mg/0.3ML Solution 1 po qd 3units Nyla Graves NP 05/05/2020 Levothyroxine Sodium 88mcg Tablets 1 tab by mouth every day 30tabs Nyla Graves NP 05/05/2020 Propranolol HCL 10mg Tablets take 1 tablet by mouth 3 times a day for palpitations as needed 90tabs E05.00 Carine Del Toro MD 09/13/2018 Sulfasalazine 500mg Tablets 1 p.o. qid Unknown Torsemide 10mg Tablets 1 p.o. qd Unknown Fluoxetine HCL 20mg Capsules 1 by mouth every day Unknown Potassium Chloride ER 10Meq Capsul es ER 1 po qd Unknown History Medications Levothyroxine Sodium 100mcg Tablet s 1 by mouth every day 30tabs Carine Del Toro MD 03/05/2020 - 05/05/2020 Levothyroxine Sodium 125mcg Tablet s 1 by mouth every day 30tabs Nyla Graves NP 12/24/2019 - 03/05/2020 Liothyronine Sodium 25mcg Tablets 1 by mouth every day 30tabs Nyla Graves NP 12/24/2019 - 03/04/2020 Immunizations Description No Information Available Vital Signs Date Vital Result Comment 05/05/2020 2:51pm BP Systolic 122 mmHg BP Diastolic 70 mmHg Heart Rate 82 /min Body Temperature 97.0 F Height 57 inches 4'9" Weight 167.00 lb BMI (Body Mass Index) 36.1 kg/m2 O2 % BldC Oximetry 92 % 03/05/2020 2:14pm BP Systolic 124 mmHg BP Diastolic 74 mmHg Heart Rate 76 /min Body Temperature 96.6 F Height 57 inches 4'9" Weight 169.50 lb BMI (Body Mass Index) 36.7 kg/m2 O2 % BldC Oximetry 99 % Results Test Acquired Date Facility Test Result H/L Range Note FT4&TSH Panel 05/02/2020 [facility] [address] [place] [address] (315)- - Thyroid Stimulating Hormone 0.311 uIU/ML Low 0.358- 3.740 Free T4 1.79 ng/dL High 0.76-1.46 Laboratory test finding 02/12/2020 [facility] [address] [place] [address] (315)- - Thyroid Stimulating Hormone < 0.005 uIU/ML Low 0.35 8-3.740 1 Free T4 1.96 ng/dL High 0.76-1.46 2 FT4&TSH Panel 12/18/2019 [facility] [address] [place] [address] (315)- - Thyroid Stimulating Hormone 6.970 uIU/ML High 0.358- 3.740 Free T4 0.74 ng/dL Low 0.76-1.46 FT4&TSH Panel 11/16/2019 [facility] [address] [place] [address] (315)- - Thyroid Stimulating Hormone 0.055 uIU/ML Low 0.358- 3.740 Free T4 1.01 ng/dL Normal 0.76-1.46 1 note:<nlbl:demographic_chang ed> 2 note:<nlbl:demographic_chang ed> Procedures Date Code Description Status 11/20/2019 41999 Radiopharmaceutical Therapy By O ral Administration Completed 03/23/2016 [id number] Colonoscopy Completed Medical Devices Description No Information Available Encounters Type Date Location Provider Dx Diagnosis Office Visit 05/05/2020 2:45p DR. Carine Graves, [facility] E8 9.0 Postprocedural hypothyroidism Office Visit 03/05/2020 2:15p DR. Carine Del Toro MD E 89.0 Postprocedural hypothyroidism E66.8 Other obesity Office Visit 12/21/2019 3:00p DR. Carine Del Toro MD E 89.0 Postprocedural hypothyroidism E66.8 Other obesity W88.1xxA Exposure to radioactive isot opes, initial encounter Office Visit 11/20/2019 9:45a DR. Carine Del Toro MD E 89.0 Postprocedural hypothyroidism E66.8 Other obesity W88.1xxA Exposure to radioactive isot opes, initial encounter Assessments Date Code Description Provider 05/05/2020 E89.0 Postprocedural hypothyroidism Lydia Graves NP 03/05/2020 E89.0 Postprocedural hypothyroidism Cl tyson Del Toro MD 03/05/2020 E66.8 Other obesity Carine Del Toro MD 12/21/2019 E89.0 Postprocedural hypothyroidism Cl tyson Del Toro MD 12/21/2019 E66.8 Other obesity Carine Del Toro MD 12/21/2019 W88.1xxA Exposure to radioactive isotopes , initial encounter Carine Del Toro MD 11/20/2019 E89.0 Postprocedural hypothyroidism Cl tyson Del Toro MD 11/20/2019 E66.8 Other obesity Carine Del Toro MD 11/20/2019 W88.1xxA Exposure to radioactive isotopes , initial encounter Carine Del Toro MD Plan of Treatment Future Appointment(s):* 07/15/2020 1:15 pm - Nyla Graves NP at DR. Carine Del Toro 05/05/2020 - Nyla Graves NP* E89.0 Postprocedural hypothyroidism* New Labs: * FT4&TSH Panel, Scheduled: 06/23/20 * Comments:* Patient is status post her second dose of radioactive iodine which occurred 11/20/2019., TSH = 0.013, Free T4 = 1.3.11/16/2019- TSH = 0.05, Free T4 = 1.01. 12/18/2019, TSH= 6.9, FT4= 0.7--> called to start medscompleted 30 days of liothyronine also.Was on Levothyroxine 125mcg daily ( started 12/2019) 02/12/2020 TSH< 0.05, FT4=1.96 dose decreasee to 100 ugLabs done 05/02/2020- TSH= 0.311, FT4= 1.79Will further lower dose to 88mcg po qd Recheck in 2 months. * Follow up:* RTO 2 months. JULIO/CBF- may want virtual * All * New Medication:* Lovenox 30 mg/0.3ML - 1 po qd * Levothyroxine Sodium 88 mcg - 1 tab by mouth every day Functional Status Description No Information Available Mental Status Description No Information Available Referrals Description No Information Available
--- OUTSIDE RECORDS SUMMARY | 2020-06-18 15:43 | CCD | Continuity of Care Document ---
Author Author Munira LONG M.D. Organization Unknown Address [address] [id number] Phone [phone] Care Team Providers Care Charrer Name Role Phone Carine Del Toro M.D. AUTM [phone] Problems Active Problems Provider Date Type 2 diabetes mellitus Roshan Long M.D. Onset: 03/24 Hyperlipidemia Roshan Long M.D. Onset: 3 Benign essential hypertension Roshan Long M.D. Onset: 04/18/2013 Ulcerative colitis Roshan Long M.D. Onset: 3 H/O: pulmonary embolus Ethel Armstrong, [facility] Onset: 017 Social History Type [...] CPT Code Status Date Vaccine Lot # [id number] Given 01/30/2020 Influenza Virus Vaccine, Quadrivalent, Slit Virus, Im Use 3Y & Up [id number] Given 02/19/2019 Influenza Virus Vaccine, Quadrivalent, Slit Virus, Im Use 3Y & Up [id number] Given 07/11/2015 Pneumococcal Immunization [id number] Vital Signs Date Vital Result Comment 04/29/2020 3:55pm BP Systolic 112 mmHg BP Diastolic 86 mmHg Body Temperature 98.0 F Heart Rate 96 /min Respiratory Rate 20 /min Height 58 inches 4'10" Weight 166.00 lb [place] Body Weight 100 lb BMI (Body Mass Index) 34.7 kg/m2 O2 % BldC Oximetry 95 % 04/15/2020 2:45pm BP Systolic 118 mmHg BP Diastolic 74 mmHg Body Temperature 97.9 F Heart Rate 80 /min Respiratory Rate 18 /min Height 58 inches 4'10" Weight 169.00 lb [place] Body Weight 100 lb BMI (Body Mass Index) 35.3 kg/m2 O2 % BldC Oximetry 95 % Results Test Acquired Date Facility Test Result H/L Range Note Prothrombin Time/Inr 05/01/2020 [facility] ( Interface) [phone] Prothrombin Time 14.6 seconds High 12.5-14.3 Inr 1.12 Normal 1 CBC With Differential 04/23/2020 [facility] (Interface) [phone] White Blood Count 12.4 10 High 4.0-10.0 [...] 36.0-66.0 Lymph % 10.7 % Low 24.0-44.0 [place] % 11.2 % High 0.0-5.0 Eos % 7.1 % High 0.0-3.0 Baso % 0.8 % Normal 0.0-1.0 Immature Granulocyte % 0.4 % Normal 0-3.0 Nucleated Red Blood Cell % 0.0 % Normal 0-0 Neutrophils # 8.7 10 High 1.5-8.5 Lymph # 1.3 10 Low 1.5-5.0 [place] # 1.4 10 High 0.0-0.8 Eos # 0.9 10 High 0.0-0.5 Baso # 0.1 10 Normal 0.0-0.2 Prothrombin Time/Inr 04/23/2020 [facility] ( Interface) [phone] Prothrombin Time 22.5 seconds High 12.5-14.3 Inr 1.93 Normal 2 Liver Profile 04/23/2020 [facility] (I nterface) [phone] Ast/Sgot 45 U/L High 7-37 Alt/SGPT 64 U/L Normal 12-78 Alkaline Phosphatase 237 U/L High 45-117 Bilirubin,Total 0.4 mg/dL Normal 0.2-1.0 Bilirubin,Direct 0.1 mg/dL Normal 0.0-0.2 Total Protein 7.5 GM/DL Normal 6.4-8.2 Albumin 3.2 GM/DL Normal 3.2-5.2 Albumin/Globulin Ratio 0.7 Low 1.2-2.2 Basic Metabolic Profile 04/23/2020 [facility] (Interface) [phone] Glucose, Fasting 128 mg/dL High 70-100 Blood Urea Nitrogen 21 mg/dL High 7-18 Creatinine For GFR 1.03 mg/dL Normal 0.55-1.30 Glomerular Filtration Rate 55.9 Normal >39 3 Sodium Level 137 mEq/L Normal 136-145 Potassium Serum 3.5 mEq/L Normal 3.5-5.1 Chloride Level 102 mEq/L Normal 98-107 Carbon Dioxide Level 27 mEq/L Normal 21-32 Anion Gap 8 mEq/L Normal 8-16 Calcium Level 9.7 mg/dL Normal 8.8-10.2 PT With Inr-Therapy 04/15/2020 [facility] [place] Prothrombin Time-Therapy 61.0 International Normalized Ratio 5.1 Dosage SKIP WTH Comment 1 CONT 2 DAILY Recheck 2 WEEKS PT With Inr-Therapy 03/17/2020 [facility] [place] Prothrombin Time-Therapy 25.4 International Normalized Ratio 2.1 Dosage 4 DAILY Recheck 1 MONTH CBC 03/17/2020 [facility] WBC 11.5 10E3/uL High 4.1 - 10.9 4 RBC 4.76 10E6/uL 4.20 - 6.30 HGB [...] Gap 16 mmol/L eGFR 85 # Calc 5 eGFR Non-Afr. [place] 73 # Calc 6 PT With Inr-Therapy 03/10/2020 [facility] Prothrombin Time-Therapy 32.0 International Normalized Ratio 2.7 Dosage 4 DAILY Recheck 1 WEEK PT With Inr-Therapy 03/03/2020 [facility] Prothrombin Time-Therapy 42.3 International Normalized Ratio 3.5 Dosage STOP SHOTS Comment 1 4 DAILY Recheck 1 WEEK PT With Inr-Therapy 02/29/2020 [facility] Prothrombin Time-Therapy 13.1 International Normalized Ratio 1.1 Dosage CONT SHOTS Comment 1 6M DAILY Recheck 03/03 PT & Aptt 02/18/2020 [facility] [phone] Prothrombin Time 13.8 seconds Normal 12.5-14.3 Inr 1.03 Normal 7 Partial Thromboplastin Time 24.1 seconds Low 24.2-38.5 Cardiac Marker Panel 02/18/2020 [facility] ( Interface) [phone] CPK Creatine Phosphokinase 45 U/L Normal 26-19 2 CK-MB Value Mass 1.6 NG/ML Normal <3.6 MB/CK Relative Index 3.56 Normal < Or =4 8 Troponin I 0.22 NG/ML < 0.10 9 Istat Chem8+ Panel 02/18/2020 [facility] [phone] iSTAT HCT 41.0 % Normal 38.0-51.0 iSTAT Glucose 167 mg/dL High 70-105 iSTAT Sodium 140 mEq/L Normal 136-145 iSTAT Potassium 2.8 mEq/L Critical low 3.5-5.1 iSTAT CA++ 4.7 mg/dL Normal 4.5-5.3 iSTAT Chloride 101 mEq/L Normal 98-109 iSTAT Co2 28.0 MM/L High 23.0-27.0 iSTAT BUN 17 mg/dL Normal 8-26 iSTAT Creatinine 1.0 mg/dL Normal 0.6-1.3 CBC With Differential 02/18/2020 [facility] ([facility]) [phone] White Blood Count 15.3 10 High 4.0-10.0 [...] 36.0-66.0 Lymph % 5.4 % Low 24.0-44.0 [place] % 8.6 % High 0.0-5.0 Eos % 2.1 % Normal 0.0-3.0 Baso % 0.6 % Normal 0.0-1.0 Immature Granulocyte % 0.6 % Normal 0-3.0 Nucleated Red Blood Cell % 0.0 % Normal 0-0 Neutrophils # 12.6 10 High 1.5-8.5 Lymph # 0.8 10 Low 1.5-5.0 [place] # 1.3 10 High 0.0-0.8 Eos # 0.3 10 Normal 0.0-0.5 Baso # 0.1 10 Normal 0.0-0.2 Laboratory test finding 02/18/2020 [facility] (Interface) [phone] Lactic Acid Sepsis Protocol 2.4 mmol/L Critical high 0 .4-2.0 10 Cardiac Marker Panel 02/18/2020 [facility] ( [facility]) [phone] CPK Creatine Phosphokinase 41 U/L Normal 26-19 2 CK-MB Value Mass < 1.0 NG/ML Normal <3.6 MB/CK Relative Index 2.44 Normal < Or =4 11 Troponin I 0.08 NG/ML Normal < 0.10 12 Liver Profile 02/18/2020 [facility] [phone] Ast/Sgot 14 U/L Normal 7-37 Alt/SGPT 14 U/L Normal 12-78 Alkaline Phosphatase 150 U/L High 45-117 Bilirubin,Total 0.4 mg/dL Normal 0.2-1.0 Bilirubin,Direct 0.1 mg/dL Normal 0.0-0.2 Total Protein 7.1 GM/DL Normal 6.4-8.2 Albumin 3.1 GM/DL Low 3.2-5.2 Albumin/Globulin Ratio 0.8 Low 1.2-2.2 Laboratory test finding 02/18/2020 [facility] (Interface) [phone] Lipase 139 U/L Normal 73-393 13 CMP 01/30/2020 [facility] Glu 101 mg/dL 70 [...] Gap 13 mmol/L eGFR 85 # Calc 14 eGFR Non-Afr. [place] 73 # Calc 15 CBC 01/30/2020 [facility] WBC 9.2 10E3/uL 4.1 [...] < 0.030 ulU/mL Low 0.60 - 4.8 16 1 THERAPUTIC HUMAN INR VALUES INDICATIONS NORMAL RANGES PROPHYLAXIS/TREATMENT OF: VENOUS THROMBOSIS 2.0-3.0 PULMONARY EMBOLISM 2.0-3.0 PREVENTION OF SYSTEMIC EMBOLISM FROM: TISSUE HEART VALVES 2.0-3.0 ACUTE MYOCARDIAL INFARCTION 2.0-3.0 VALVULAR HEART DISEASE 2.0-3.0 ATRIAL FIBRILLATION 2.0-3.0 MECHANICAL VALVES(HIGH RISK) 2.5-3.5 RECURRENT MYOCARDIAL INFARCTION 2.5-3.5 2 THERAPUTIC HUMAN INR VALUES INDICATIONS NORMAL RANGES PROPHYLAXIS/TREATMENT OF: VENOUS THROMBOSIS 2.0-3.0 PULMONARY EMBOLISM 2.0-3.0 PREVENTION OF SYSTEMIC EMBOLISM FROM: TISSUE HEART VALVES 2.0-3.0 ACUTE MYOCARDIAL INFARCTION 2.0-3.0 VALVULAR HEART DISEASE 2.0-3.0 ATRIAL FIBRILLATION 2.0-3.0 MECHANICAL VALVES(HIGH RISK) 2.5-3.5 RECURRENT MYOCARDIAL INFARCTION 2.5-3.5 3 Units are mL/min/1.73 m2 Chronic Kidney Disease Staging per NKF: Stage I & II GFR >=60 Normal to Mildly Decreased Stage III GFR 30-59 Moderately Decreased Stage IV GFR 15-29 Severely Decreased Stage V GFR <15 Very Little GFR Left ESRD GFR <15 on [employer] 4 NORMAL RANGES Age WBC RBC HGB HCT [...] HCT IS 5% LESS SOURCE FOR DATA: [employer] 1800 OPERATION MANUAL( AUTOMATED BLOOD COUNTS AND [...] Normal 80 and above >32 mL/min Normal 5 CKD-EPI 6 CKD-EPI 7 THERAPUTIC HUMAN INR VALUES INDICATIONS NORMAL RANGES PROPHYLAXIS/TREATMENT OF: VENOUS THROMBOSIS 2.0-3.0 PULMONARY EMBOLISM 2.0-3.0 PREVENTION OF SYSTEMIC EMBOLISM FROM: TISSUE HEART VALVES 2.0-3.0 ACUTE MYOCARDIAL INFARCTION 2.0-3.0 VALVULAR HEART DISEASE 2.0-3.0 ATRIAL FIBRILLATION 2.0-3.0 MECHANICAL VALVES(HIGH RISK) 2.5-3.5 RECURRENT MYOCARDIAL INFARCTION 2.5-3.5 8 DIAGNOSIS CRITERIA MMB ng/ml Relative Index (RI) NON-AMI < or = 5 N/A [place]QU[place] ZONE > 5 < or = 4 AMI > 5 > 4 9 Troponin I Reference Interva l for Siemens [place] LOCI: 99th Percentile= 0.00-0.045 ng/ml Risk Stratification: <= 0.10 ng/ml Decreased Risk for Adverse Clinical Events. 0.10-1.50 ng/ml Increased Risk for Adv erse Clinical Events. Evaluation of additional criterion and/or repeat testing in 2-6 hours is suggested to rule out myocardial damage. >= 1.50 ng/ml Indicative of Myocardial Injury. 10 note:<nlbl:[facility] ed> Y/N query for Sepsis Lactate Rule: Y 11 DIAGNOSIS CRITERIA MMB ng/ml Relative Index (RI) NON-AMI < or = 5 N/A AQUINO ZONE > 5 < or = 4 AMI > 5 > 4 12 Troponin I Reference Interva l for [employer] [place] LOCI: 99th Percentile= 0.00-0.045 ng/ml Risk Stratification: <= 0.10 ng/ml Decreased Risk for Adverse Clinical Events. 0.10-1.50 ng/ml Increased Risk for Adv erse Clinical Events. Evaluation of additional criterion and/or repeat testing in 2-6 hours is suggested to rule out myocardial damage. >= 1.50 ng/ml Indicative of Myocardial Injury. 13 note:<nlbl:demographic_[facility] ed> 14 CKD-EPI 15 CKD-EPI 16 Below the Measuring Range Procedures Date Code Description Status 04/15/2020 54760 Capillary Blood Collection Finge r, Heel, Ear Stick Completed 03/10/2020 98734 Capillary Blood Collection Finge r, Heel, Ear Stick Completed 03/03/2020 10877 Capillary Blood Collection Finge r, Heel, Ear Stick Completed 02/29/2020 72315 Capillary Blood Collection Finge r, Heel, Ear Stick Completed 03/10/2016 [id number] Mammogram Completed Medical Devices Description No Information Available Encounters Type Date Location Provider Dx Diagnosis Office Visit 04/29/2020 1:15p [place] [facility] Roshan Long M. D. K81.0 Acute cholecystitis K75.0 Abscess of liver I81 Portal vein thrombosis R60.9 Edema, unspecified Office Visit 04/15/2020 2:45p [facility] Roshan Long M. D. K81.0 Acute cholecystitis K75.0 Abscess of liver I81 Portal vein thrombosis I26.99 Other pulmonary embolism wit hout acute cor pulmonale Office Visit 03/17/2020 2:30p [facility] Roshan Long M. D. I26.99 Other pulmonary embolism without acute cor pulmonale K81.0 Acute cholecystitis Office Visit 02/27/2020 10:40a [facility] Roshan Long M. D. I26.99 Other pulmonary embolism without acute cor pulmonale K81.0 Acute cholecystitis Office Visit 01/30/2020 1:15p [facility] Roshan Long M. D. R63.5 Abnormal weight gain E05.[address] w diffuse goi [address] w/o thyrotoxic crisis F33.0 Major depressive disorder, r ecurrent, mild D64.9 Anemia, unspecified Z23 Encounter for immunization Assessments Date Code Description Provider 04/29/2020 K81.0 Acute cholecystitis Luke Long M.D. [...] pulmonary embolism without acute cor pulmonale Laboratory [place] Schedule 03/10/2020 I26.99 Other pulmonary embolism without acute cor pulmonale Roshan Long M.D. 03/10/2020 I26.99 Other pulmonary embolism without acute cor pulmonale Laboratory [place] Schedule 03/10/2020 Z79.01 [facility] (current) use of antic emilyguRoshan Gonzalez M.D. 03/03/2020 I26.99 Other pulmonary embolism without acute cor pulmonale Roshan Long M.D. 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 02/29/2020 I26.99 Other pulmonary embolism without acute cor pulmonale Roshan Long M.D. 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 02/27/2020 I26.99 Other pulmonary embolism without [...] Benitez M.D. Plan of Treatment Future Appointment(s):* 05/05/2020 11:30 am - Roshan Long M.D. at [place] [facility] Functional Status Description No Information Available Mental Status Description No Information Available Referrals Refer to Reason for Referral Status Appt Date [facility] Oncology & Hematology recurrent thrombosis despite therapeutic INR- eval and rx Sent [address] [facility] [facility] [address] [place] [address] Andrés Araujo M.D. cholecystitis, recent PE- eval and rx Sent 03/12/2020 [address] [facility] [address] [place] [address] [phone] Elliot Gomes M.D. 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
--- OUTSIDE RECORDS SUMMARY | 2020-06-18 15:43 | CCD | Continuity of Care Document ---
Author Author Munira LONG M.D. Organization Unknown Address [address] [id number] Phone [phone] Care Team Providers Care Respiratory Scientist Name Role Phone Carine Del Toro M.D. AUTM [phone] Problems Active Problems Provider Date Type 2 diabetes mellitus Roshan Long M.D. Onset: 03/24 Hyperlipidemia Roshan Long M.D. Onset: 3 Benign essential hypertension Roshan Long M.D. Onset: 04/18/2013 Ulcerative colitis Roshan Long M.D. Onset: 3 H/O: pulmonary embolus Ethel Armstrong, [facility] Onset: 017 Social History Type Date Description [...] CPT Code Status Date Vaccine Lot # [id number] Given 01/30/2020 Influenza Virus Vaccine, Quadrivalent, Slit Virus, Im Use 3Y & Up [id number] Given 02/19/2019 Influenza Virus Vaccine, Quadrivalent, Slit Virus, Im Use 3Y & Up [id number] Given 07/11/2015 Pneumococcal Immunization L0 [id number] Vital Signs Date Vital Result Comment 05/05/2020 11:29am BP Systolic 122 mmHg BP Diastolic 80 mmHg Body Temperature 97.6 F Heart Rate 70 /min Respiratory Rate 18 /min Height 58 inches 4'10" Weight 166.00 lb Wrights Body Weight 100 lb BMI (Body Mass Index) 34.7 kg/m2 04/29/2020 3:55pm BP Systolic 112 mmHg BP Diastolic 86 mmHg Body Temperature 98.0 F Heart Rate 96 /min Respiratory Rate 20 /min Height 58 inches 4'10" Weight 166.00 lb Wrights Body Weight 100 lb BMI (Body Mass Index) 34.7 kg/m2 O2 % BldC Oximetry 95 % Results Test Acquired Date Facility Test Result H/L Range Note CBC 05/05/2020 [facility] WBC 11.1 10E3/uL High 4.1 - 10.9 1 RBC 4.93 10E6/uL 4.20 - 6.30 HGB [...] 1.8 MPV 9.9 fL 9.0 - 13.0 CMP 05/05/2020 [facility] Glu 107 mg/dL 70 - 110 BUN 9 mg/dL 8 - 23 Creat [...] Gap 18.3 mmol/L eGFR 74 # Calc 2 eGFR Non-Afr. Andorran 63 # Calc 3 Prothrombin Time/Inr 05/01/2020 [facility] ( Interface) [phone] Prothrombin Time 14.6 seconds High 12.5-14.3 Inr 1.12 Normal 4 CBC With Differential 04/23/2020 [facility] (Interface) [phone] White Blood Count 12.4 10 High 4.0-10.0 [...] 36.0-66.0 Lymph % 10.7 % Low 24.0-44.0 Whitfield % 11.2 % High 0.0-5.0 Eos % 7.1 % High 0.0-3.0 Baso % 0.8 % Normal 0.0-1.0 Immature Granulocyte % 0.4 % Normal 0-3.0 Nucleated Red Blood Cell % 0.0 % Normal 0-0 Neutrophils # 8.7 10 High 1.5-8.5 Lymph # 1.3 10 Low 1.5-5.0 Whitfield # 1.4 10 High 0.0-0.8 Eos # 0.9 10 High 0.0-0.5 Baso # 0.1 10 Normal 0.0-0.2 Prothrombin Time/Inr 04/23/2020 [facility] ( Interface) [phone] Prothrombin Time 22.5 seconds High 12.5-14.3 Inr 1.93 Normal 5 Liver Profile 04/23/2020 [facility] (I nterface) [phone] Ast/Sgot 45 U/L High 7-37 Alt/SGPT 64 U/L Normal 12-78 Alkaline Phosphatase 237 U/L High 45-117 Bilirubin,Total 0.4 mg/dL Normal 0.2-1.0 Bilirubin,Direct 0.1 mg/dL Normal 0.0-0.2 Total Protein 7.5 GM/DL Normal 6.4-8.2 Albumin 3.2 GM/DL Normal 3.2-5.2 Albumin/Globulin Ratio 0.7 Low 1.2-2.2 Basic Metabolic Profile 04/23/2020 [facility] l (Interface) [phone] Glucose, Fasting 128 mg/dL High 70-100 Blood Urea Nitrogen 21 mg/dL High 7-18 Creatinine For GFR 1.03 mg/dL Normal 0.55-1.30 Glomerular Filtration Rate 55.9 Normal >39 6 Sodium Level 137 mEq/L Normal 136-145 Potassium Serum 3.5 mEq/L Normal 3.5-5.1 Chloride Level 102 mEq/L Normal 98-107 Carbon Dioxide Level 27 mEq/L Normal 21-32 Anion Gap 8 mEq/L Normal 8-16 Calcium Level 9.7 mg/dL Normal 8.8-10.2 PT With Inr-Therapy 04/15/2020 [facility] ciates Prothrombin Time-Therapy 61.0 International Normalized Ratio 5.1 Dosage SKIP WTH Comment 1 CONT 2 DAILY Recheck 2 WEEKS PT With Inr-Therapy 03/17/2020 [facility] Brendanmonica ashleymili Prothrombin Time-Therapy 25.4 International Normalized Ratio 2.1 [...] Gap 16 mmol/L eGFR 85 # Calc 7 eGFR Non-Afr. Andorran 73 # Calc 8 PT With Inr-Therapy 03/10/2020 [facility] Asso ciates Prothrombin Time-Therapy 32.0 International Normalized Ratio 2.7 Dosage 4 DAILY Recheck 1 WEEK PT With Inr-Therapy 03/03/2020 [facility] Asso ciates Prothrombin Time-Therapy 42.3 International Normalized Ratio 3.5 Dosage STOP SHOTS Comment 1 4 DAILY Recheck 1 WEEK PT With Inr-Therapy 02/29/2020 [facility] Asso ciates Prothrombin Time-Therapy 13.1 International Normalized Ratio 1.1 Dosage CONT SHOTS Comment 1 6M DAILY Recheck 03/03 PT & Aptt 02/18/2020 [facility]) [phone] Prothrombin Time 13.8 seconds Normal 12.5-14.3 Inr 1.03 Normal 9 Partial Thromboplastin Time 24.1 seconds Low 24.2-38.5 Cardiac Marker Panel 02/18/2020 [facility] ( Interface) [phone] CPK Creatine Phosphokinase 45 U/L Normal 26-19 2 CK-MB Value Mass 1.6 NG/ML Normal <3.6 MB/CK Relative Index 3.56 Normal < Or =4 10 Troponin I 0.22 NG/ML < 0.10 11 Istat Chem8+ Panel 02/18/2020 [facility] [phone] iSTAT HCT 41.0 % Normal 38.0-51.0 iSTAT Glucose 167 mg/dL High 70-105 iSTAT Sodium 140 mEq/L Normal 136-145 iSTAT Potassium 2.8 mEq/L Critical low 3.5-5.1 iSTAT CA++ 4.7 mg/dL Normal 4.5-5.3 iSTAT Chloride 101 mEq/L Normal 98-109 iSTAT Co2 28.0 MM/L High 23.0-27.0 iSTAT BUN 17 mg/dL Normal 8-26 iSTAT Creatinine 1.0 mg/dL Normal 0.6-1.3 CBC With Differential 02/18/2020 [facility] (Interface) [phone] White Blood Count 15.3 10 High 4.0-10.0 [...] 36.0-66.0 Lymph % 5.4 % Low 24.0-44.0 Whitfield % 8.6 % High 0.0-5.0 Eos % 2.1 % Normal 0.0-3.0 Baso % 0.6 % Normal 0.0-1.0 Immature Granulocyte % 0.6 % Normal 0-3.0 Nucleated Red Blood Cell % 0.0 % Normal 0-0 Neutrophils # 12.6 10 High 1.5-8.5 Lymph # 0.8 10 Low 1.5-5.0 Whitfield # 1.3 10 High 0.0-0.8 Eos # 0.3 10 Normal 0.0-0.5 Baso # 0.1 10 Normal 0.0-0.2 Laboratory test finding 02/18/2020 [facility] (Interface) [phone] Lactic Acid Sepsis Protocol 2.4 mmol/L Critical high 0 .4-2.0 12 Cardiac Marker Panel 02/18/2020 [facility] ( Interface) [phone] CPK Creatine Phosphokinase 41 U/L Normal 26-19 2 CK-MB Value Mass < 1.0 NG/ML Normal <3.6 MB/CK Relative Index 2.44 Normal < Or =4 13 Troponin I 0.08 NG/ML Normal < 0.10 14 Liver Profile 02/18/2020 [facility] (I nterface) [phone] Ast/Sgot 14 U/L Normal 7-37 Alt/SGPT 14 U/L Normal 12-78 Alkaline Phosphatase 150 U/L High 45-117 Bilirubin,Total 0.4 mg/dL Normal 0.2-1.0 Bilirubin,Direct 0.1 mg/dL Normal 0.0-0.2 Total Protein 7.1 GM/DL Normal 6.4-8.2 Albumin 3.1 GM/DL Low 3.2-5.2 Albumin/Globulin Ratio 0.8 Low 1.2-2.2 Laboratory test finding 02/18/2020 [facility] l (Interface) [phone] Lipase 139 U/L Normal 73-393 15 CMP 01/30/2020 [facility] Glu 101 mg/dL 70 [...] Gap 13 mmol/L eGFR 85 # Calc 16 eGFR Non-Afr. Andorran 73 # Calc 17 CBC 01/30/2020 [facility] WBC 9.2 10E3/uL 4.1 [...] < 0.030 ulU/mL Low 0.60 - 4.8 18 1 NORMAL RANGES Age WBC RBC HGB HCT [...] HCT IS 5% LESS SOURCE FOR DATA: JOSE R DYN 1800 OPERATION MANUAL( AUTOMATED BLOOD COUNTS AND [...] Normal 80 and above >32 mL/min Normal 2 CKD-EPI 3 CKD-EPI 4 THERAPUTIC HUMAN INR VALUES INDICATIONS NORMAL RANGES PROPHYLAXIS/TREATMENT OF: VENOUS THROMBOSIS 2.0-3.0 PULMONARY EMBOLISM 2.0-3.0 PREVENTION OF SYSTEMIC EMBOLISM FROM: TISSUE HEART VALVES 2.0-3.0 ACUTE MYOCARDIAL INFARCTION 2.0-3.0 VALVULAR HEART DISEASE 2.0-3.0 ATRIAL FIBRILLATION 2.0-3.0 MECHANICAL VALVES(HIGH RISK) 2.5-3.5 RECURRENT MYOCARDIAL INFARCTION 2.5-3.5 5 THERAPUTIC HUMAN INR VALUES INDICATIONS NORMAL RANGES PROPHYLAXIS/TREATMENT OF: VENOUS THROMBOSIS 2.0-3.0 PULMONARY EMBOLISM 2.0-3.0 PREVENTION OF SYSTEMIC EMBOLISM FROM: TISSUE HEART VALVES 2.0-3.0 ACUTE MYOCARDIAL INFARCTION 2.0-3.0 VALVULAR HEART DISEASE 2.0-3.0 ATRIAL FIBRILLATION 2.0-3.0 MECHANICAL VALVES(HIGH RISK) 2.5-3.5 RECURRENT MYOCARDIAL INFARCTION 2.5-3.5 6 Units are mL/min/1.73 m2 Chronic Kidney Disease Staging per NKF: Stage I & II GFR >=60 Normal to Mildly Decreased Stage III GFR 30-59 Moderately Decreased Stage IV GFR 15-29 Severely Decreased Stage V GFR <15 Very Little GFR Left ESRD GFR <15 on OFFICE ADMINISTRATION INSTRUCTOR 7 CKD-EPI 8 CKD-EPI 9 THERAPUTIC HUMAN INR VALUES INDICATIONS NORMAL RANGES PROPHYLAXIS/TREATMENT OF: VENOUS THROMBOSIS 2.0-3.0 PULMONARY EMBOLISM 2.0-3.0 PREVENTION OF SYSTEMIC EMBOLISM FROM: TISSUE HEART VALVES 2.0-3.0 ACUTE MYOCARDIAL INFARCTION 2.0-3.0 VALVULAR HEART DISEASE 2.0-3.0 ATRIAL FIBRILLATION 2.0-3.0 MECHANICAL VALVES(HIGH RISK) 2.5-3.5 RECURRENT MYOCARDIAL INFARCTION 2.5-3.5 10 DIAGNOSIS CRITERIA MMB ng/ml Relative Index (RI) NON-AMI < or = 5 N/A AQUINO ZONE > 5 < or = 4 AMI > 5 > 4 11 Troponin I Reference Interva l for Siemens [place] LOCI: 99th Percentile= 0.00-0.045 ng/ml Risk Stratification: <= 0.10 ng/ml Decreased Risk for Adverse Clinical Events. 0.10-1.50 ng/ml Increased Risk for Adv erse Clinical Events. Evaluation of additional criterion and/or repeat testing in 2-6 hours is suggested to rule out myocardial damage. >= 1.50 ng/ml Indicative of Myocardial Injury. 12 note:<nlbl:demographic_[facility] ed> Y/N query for Sepsis Lactate Rule: Y 13 DIAGNOSIS CRITERIA MMB ng/ml Relative Index (RI) NON-AMI < or = 5 N/A AQUINO ZONE > 5 < or = 4 AMI > 5 > 4 14 Troponin I Reference Interva l for Siemens [place] LOCI: 99th Percentile= 0.00-0.045 ng/ml Risk Stratification: <= 0.10 ng/ml Decreased Risk for Adverse Clinical Events. 0.10-1.50 ng/ml Increased Risk for Adv erse Clinical Events. Evaluation of additional criterion and/or repeat testing in 2-6 hours is suggested to rule out myocardial damage. >= 1.50 ng/ml Indicative of Myocardial Injury. 15 note:<nlbl:[facility] ed> 16 CKD-EPI 17 CKD-EPI 18 Below the Measuring Range Procedures Date Code Description Status 04/15/2020 93998 Capillary Blood Collection Finge r, Heel, Ear Stick Completed 03/10/2020 65608 Capillary Blood Collection Finge r, Heel, Ear Stick Completed 03/03/2020 59748 Capillary Blood Collection Finge r, Heel, Ear Stick Completed 02/29/2020 87641 Capillary Blood Collection Finge r, Heel, Ear Stick Completed 03/10/2016 [id number] Mammogram Completed Medical Devices Description No Information Available Encounters Type Date Location Provider Dx Diagnosis Office Visit 05/05/2020 11:30a [facility] Roshan Long M. D. K75.0 Abscess of liver I82.401 Acute embolism and thombos u nsp deep veins of r low extrem E78.5 Hyperlipidemia, unspecified Office Visit 04/29/2020 1:15p [facility] Roshan Long M. D. K81.0 Acute cholecystitis K75.0 Abscess of liver I81 Portal vein thrombosis R60.9 Edema, unspecified Office Visit 04/15/2020 2:45p [facility] Roshan Long M. D. K81.0 Acute cholecystitis K75.0 Abscess of liver I81 Portal vein thrombosis I26.99 Other pulmonary embolism wit hout acute cor pulmonale Office Visit 03/17/2020 2:30p [facility] Roshan Long M. D. I26.99 Other pulmonary embolism without acute cor pulmonale K81.0 Acute cholecystitis Office Visit 02/27/2020 10:40a [facility] Roshan Long M. D. I26.99 Other pulmonary embolism without acute cor pulmonale K81.0 Acute cholecystitis Office Visit 01/30/2020 1:15p [facility] Roshan Long M. D. R63.5 Abnormal [...] Long M.D. 05/05/2020 E78.5 Hyperlipidemia, unspecified Mitc hellRoshan M.D. 04/29/2020 K81.0 Acute cholecystitis Luke Long M.D. 04/29/2020 K75.0 Abscess of liver Roshan Long M.D. 04/29/2020 I81 Portal vein thrombosis Roshan Long M.D. 04/29/2020 R60.9 Edema, unspecified Sourav Long M.D. 04/15/2020 K81.0 Acute cholecystitis Luke Long M.D. 04/15/2020 K75.0 Abscess of liver Roshan Long M.D. 04/15/2020 I81 Portal vein thrombosis Roshan Lnog M.D. 04/15/2020 I26.99 Other pulmonary embolism without acute cor pulmonale Roshan Long M.D. 03/17/2020 I26.99 Other pulmonary embolism without acute cor pulmonale Roshan Long M.D. 03/17/2020 K81.0 Acute cholecystitis Luke Long M.D. 03/17/2020 I26.99 Other pulmonary embolism without acute cor pulmonale Laboratory [place] Schedule 03/10/2020 I26.99 Other pulmonary embolism without acute cor pulmonale Roshan Long M.D. 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 03/03/2020 I26.99 Other pulmonary embolism without acute cor pulmonale Roshan Long M.D. 03/03/2020 I26.99 Other pulmonary embolism without acute cor pulmonale Laboratory [place] Schedule 03/03/2020 Z79.01 [facility] (current) use of antic emilyguRoshan Gonzalez M.D. 02/29/2020 I26.99 Other pulmonary embolism without acute cor pulmonale Roshan Long M.D. 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 02/27/2020 I26.99 Other pulmonary embolism without [...] 11:30 am - Roshan Long M.D. at [facility] Functional Status Description No Information Available Mental Status Description No Information Available Referrals Refer to Dr Reason for Referral Status Appt Date [facility] Oncology & Hematology recurrent thrombosis despite therapeutic INR- eval and rx Sent 06/09/2020 [address] [facility] [address] [place] [address] Andrés Araujo M.D. cholecystitis, recent PE- eval and rx Sent 03/12/2020 [address] [facility] [address] [place] [address] [phone] Elliot Gomes M.D. r/o Graves ophthalmopathy Sent 53[address] [facility] [address] [place] [address] [phone]
--- OUTSIDE RECORDS SUMMARY | 2020-06-18 15:43 | CCD | Continuity of Care Document ---
Author Author Munira LONG M.D. Organization Unknown Address [address] [id number] Phone [phone] Care Team Providers Care Air Traffic Control Supervisor Name Role Phone Carine Del Toro M.D. AUTM [phone] Problems Active Problems Provider Date Type 2 diabetes mellitus Roshan Long M.D. Onset: 03/24 Hyperlipidemia Roshan Long M.D. Onset: 3 Benign essential hypertension Roshan Long M.D. Onset: 04/18/2013 Ulcerative colitis Roshan Long M.D. Onset: 3 H/O: pulmonary embolus Ethel Armstrong, [facility] Onset: 017 Social History Type Date Description [...] CPT Code Status Date Vaccine Lot # 31350 Given 01/30/2020 Influenza Virus Vaccine, Quadrivalent, Slit Virus, Im Use 3Y & Up [id number] Given 02/19/2019 Influenza Virus Vaccine, Quadrivalent, Slit Virus, Im Use 3Y & Up [id number] Given 07/11/2015 Pneumococcal Immunization L0 [id number] Vital Signs Date Vital Result Comment 04/15/2020 2:45pm BP Systolic 118 mmHg BP Diastolic 74 mmHg Body Temperature 97.9 F Heart Rate 80 /min Respiratory Rate 18 /min Height 58 inches 4'10" Weight 169.00 lb [place] Body Weight 100 lb BMI (Body Mass Index) 35.3 kg/m2 O2 % BldC Oximetry 95 % 03/17/2020 2:34pm BP Systolic 128 mmHg BP Diastolic 82 mmHg Body Temperature 97.6 F Heart Rate 70 /min Respiratory Rate 16 /min Height 58 inches 4'10" Weight 169.00 lb [place] Body Weight 100 lb BMI (Body Mass Index) 35.3 kg/m2 O2 % BldC Oximetry 92 % Results Test Acquired Date Facility Test Result H/L Range Note CBC With Differential 04/23/2020 [facility] ([facility]) [phone] White Blood Count 12.4 10 High 4.0-10.0 [...] 36.0-66.0 Lymph % 10.7 % Low 24.0-44.0 [place] % 11.2 % High 0.0-5.0 Eos % 7.1 % High 0.0-3.0 Baso % 0.8 % Normal 0.0-1.0 Immature Granulocyte % 0.4 % Normal 0-3.0 Nucleated Red Blood Cell % 0.0 % Normal 0-0 Neutrophils # 8.7 10 High 1.5-8.5 Lymph # 1.3 10 Low 1.5-5.0 [place] # 1.4 10 High 0.0-0.8 Eos # 0.9 10 High 0.0-0.5 Baso # 0.1 10 Normal 0.0-0.2 Prothrombin Time/Inr 04/23/2020 [facility] ( [facility]) [phone] Prothrombin Time 22.5 seconds High 12.5-14.3 Inr 1.93 Normal 1 Liver Profile 04/23/2020 [facility] ([facility]) [phone] Ast/Sgot 45 U/L High 7-37 Alt/SGPT 64 U/L Normal 12-78 Alkaline Phosphatase 237 U/L High 45-117 Bilirubin,Total 0.4 mg/dL Normal 0.2-1.0 Bilirubin,Direct 0.1 mg/dL Normal 0.0-0.2 Total Protein 7.5 GM/DL Normal 6.4-8.2 Albumin 3.2 GM/DL Normal 3.2-5.2 Albumin/Globulin Ratio 0.7 Low 1.2-2.2 Basic Metabolic Profile 04/23/2020 [facility] ([facility]) [phone] Glucose, Fasting 128 mg/dL High 70-100 Blood Urea Nitrogen 21 mg/dL High 7-18 Creatinine For GFR 1.03 mg/dL Normal 0.55-1.30 Glomerular Filtration Rate 55.9 Normal >39 2 Sodium Level 137 mEq/L Normal 136-145 Potassium Serum 3.5 mEq/L Normal 3.5-5.1 Chloride Level 102 mEq/L Normal 98-107 Carbon Dioxide Level 27 mEq/L Normal 21-32 Anion Gap 8 mEq/L Normal 8-16 Calcium Level 9.7 mg/dL Normal 8.8-10.2 PT With Inr-Therapy 04/15/2020 [facility] Prothrombin Time-Therapy 61.0 International Normalized Ratio 5.1 Dosage SKIP WTH Comment 1 CONT 2 DAILY Recheck 2 WEEKS PT With Inr-Therapy 03/17/2020 [facility] Mariel [place] Prothrombin Time-Therapy 25.4 International Normalized Ratio 2.1 Dosage 4 DAILY Recheck 1 MONTH CBC 03/17/2020 [facility] WBC 11.5 10E3/uL High 4.1 - 10.9 3 RBC 4.76 10E6/uL 4.20 - 6.30 HGB [...] Gap 16 mmol/L eGFR 85 # Calc 4 eGFR Non-Afr. Chinese 73 # Calc 5 PT With Inr-Therapy 03/10/2020 [facility] Prothrombin Time-Therapy 32.0 International Normalized Ratio 2.7 Dosage 4 DAILY Recheck 1 WEEK PT With Inr-Therapy 03/03/2020 [facility] Prothrombin Time-Therapy 42.3 International Normalized Ratio 3.5 Dosage STOP SHOTS Comment 1 4 DAILY Recheck 1 WEEK PT With Inr-Therapy 02/29/2020 [facility] Prothrombin Time-Therapy 13.1 International Normalized Ratio 1.1 Dosage CONT SHOTS Comment 1 6M DAILY Recheck 03/03 PT & Aptt 02/18/2020 [facility]) [phone] Prothrombin Time 13.8 seconds Normal 12.5-14.3 Inr 1.03 Normal 6 Partial Thromboplastin Time 24.1 seconds Low 24.2-38.5 Cardiac Marker Panel 02/18/2020 [facility] ( [facility]) [phone] CPK Creatine Phosphokinase 45 U/L Normal 26-19 2 CK-MB Value Mass 1.6 NG/ML Normal <3.6 MB/CK Relative Index 3.56 Normal < Or =4 7 Troponin I 0.22 NG/ML < 0.10 8 Istat Chem8+ Panel 02/18/2020 [facility] [phone] iSTAT HCT 41.0 % Normal 38.0-51.0 iSTAT Glucose 167 mg/dL High 70-105 iSTAT Sodium 140 mEq/L Normal 136-145 iSTAT Potassium 2.8 mEq/L Critical low 3.5-5.1 iSTAT CA++ 4.7 mg/dL Normal 4.5-5.3 iSTAT Chloride 101 mEq/L Normal 98-109 iSTAT Co2 28.0 MM/L High 23.0-27.0 iSTAT BUN 17 mg/dL Normal 8-26 iSTAT Creatinine 1.0 mg/dL Normal 0.6-1.3 CBC With Differential 02/18/2020 [facility] ([facility]) [phone] White Blood Count 15.3 10 High 4.0-10.0 [...] 36.0-66.0 Lymph % 5.4 % Low 24.0-44.0 [place] % 8.6 % High 0.0-5.0 Eos % 2.1 % Normal 0.0-3.0 Baso % 0.6 % Normal 0.0-1.0 Immature Granulocyte % 0.6 % Normal 0-3.0 Nucleated Red Blood Cell % 0.0 % Normal 0-0 Neutrophils # 12.6 10 High 1.5-8.5 Lymph # 0.8 10 Low 1.5-5.0 [place] # 1.3 10 High 0.0-0.8 Eos # 0.3 10 Normal 0.0-0.5 Baso # 0.1 10 Normal 0.0-0.2 Laboratory test finding 02/18/2020 [facility] ([facility]) [phone] Lactic Acid Sepsis Protocol 2.4 mmol/L Critical high 0 .4-2.0 9 Cardiac Marker Panel 02/18/2020 [facility] ( [facility]) [phone] CPK Creatine Phosphokinase 41 U/L Normal 26-19 2 CK-MB Value Mass < 1.0 NG/ML Normal <3.6 MB/CK Relative Index 2.44 Normal < Or =4 10 Troponin I 0.08 NG/ML Normal < 0.10 11 Liver Profile 02/18/2020 [facility] ([facility]) [phone] Ast/Sgot 14 U/L Normal 7-37 Alt/SGPT 14 U/L Normal 12-78 Alkaline Phosphatase 150 U/L High 45-117 Bilirubin,Total 0.4 mg/dL Normal 0.2-1.0 Bilirubin,Direct 0.1 mg/dL Normal 0.0-0.2 Total Protein 7.1 GM/DL Normal 6.4-8.2 Albumin 3.1 GM/DL Low 3.2-5.2 Albumin/Globulin Ratio 0.8 Low 1.2-2.2 Laboratory test finding 02/18/2020 [facility] ([facility]) [phone] Lipase 139 U/L Normal 73-393 12 CMP 01/30/2020 [facility] Glu 101 mg/dL 70 [...] Gap 13 mmol/L eGFR 85 # Calc 13 eGFR Non-Afr. Chinese 73 # Calc 14 CBC 01/30/2020 [facility] WBC 9.2 10E3/uL 4.1 [...] < 0.030 ulU/mL Low 0.60 - 4.8 15 Urine Culture, Routine 2019 [facility] [place] Urine Culture, Routine Final report 16, 17 Result 1 See Comment: 18 U/A DIP FPA 2019 [facility] Color Urine YELLOW Yellow Appearance CLEAR Clear Specific [place] 1.015 1.00-1.03 PH Urine 5.5 5.0-8.0 Glucose Urine NEG Negative Bilirubin Urine NEG Negative Ketones NEG Negative Blood Urine NEG Negative Protein Urine NEG Negative Urobilinogen .2 EU/dl 0.2-1.0 Nitrite NEG Negative Leukocytes 1+ High Negative CMP 2019 [facility] Glu 108 mg/dL 70 - 110 19 BUN 22 mg/dL 8 - 23 Creat 0.8 mg/dL 0.5 - 1.0 BUN/Creatinine Ratio 26.3 CALC Na 142 mmol/L 136 - 145 K 3.9 mmol/L 3.5 - 5.1 CL 103.3 mmol/L 98.0 - 107.0 Co2 29.3 mmol/L High 22.0 - 29.0 CA 10.0 mg/dL 8.6 - 10.2 TP 7.0 g/dL 6.6 - 8.7 Alb 4.1 g/dL 3.4 - 4.8 A/G Ratio 1.4 CALC Globulin 2.9 CALC Alp 177.1 U/L High 35 - 129 Alt (SGPT) 11 U/L 0 - 41 Ast (Sgot) 13 U/L 0 - 40 Tbili 0.31 mg/dL 0.0 - 1.2 Osmolality-Calculated 287.5 CALC Anion Gap 14 mmol/L eGFR 85 # Calc 20 eGFR Non-Afr. Chinese 73 # Calc 21 CBC 2019 [facility] WBC 7.3 10E3/uL 4.1 - 10.9 RBC 4.39 10E6/uL 4.20 - 6.30 HGB 12.8 g/dL 12.0 - 18.0 HCT 40.0 % 37.0 - 51.0 MCV 91.1 fL 80.0 - 97.0 MCH 29.2 pg 26.0 - 32.0 MCHC 32.0 g/dL 31.0 - 36.0 PLT 265 10E3/uL 140 - 440 RDW-CV 14.5 % 11.5 - 14.5 Lym% 16.0 % 10.0 - 58.5 Neut% 72.8 % 37.0 - 92.0 MXD% 11.2 % 0.1 - 24.0 Lym# 1.2 10E3/uL 0.6 - 4.1 Neut# 5.3 % 2.0 - 7.8 MXD# 0.8 10E3/uL 0.0 - 1.8 MPV 10.7 fL 9.0 - 13.0 1 THERAPUTIC HUMAN INR VALUES INDICATIONS NORMAL RANGES PROPHYLAXIS/TREATMENT OF: VENOUS THROMBOSIS 2.0-3.0 PULMONARY EMBOLISM 2.0-3.0 PREVENTION OF SYSTEMIC EMBOLISM FROM: TISSUE HEART VALVES 2.0-3.0 ACUTE MYOCARDIAL INFARCTION 2.0-3.0 VALVULAR HEART DISEASE 2.0-3.0 ATRIAL FIBRILLATION 2.0-3.0 MECHANICAL VALVES(HIGH RISK) 2.5-3.5 RECURRENT MYOCARDIAL INFARCTION 2.5-3.5 2 Units are mL/min/1.73 m2 Chronic Kidney Disease Staging per NKF: Stage I & II GFR >=60 Normal to Mildly Decreased Stage III GFR 30-59 Moderately Decreased Stage IV GFR 15-29 Severely Decreased Stage V GFR <15 Very Little GFR Left ESRD GFR <15 on DELIVERY DEPARTMENT SUPERVISOR 3 NORMAL RANGES Age WBC RBC HGB HCT [...] HCT IS 5% LESS SOURCE FOR DATA: [employer] 1800 OPERATION MANUAL( AUTOMATED BLOOD COUNTS AND [...] Normal 80 and above >32 mL/min Normal 4 CKD-EPI 5 CKD-EPI 6 THERAPUTIC HUMAN INR VALUES INDICATIONS NORMAL RANGES PROPHYLAXIS/TREATMENT OF: VENOUS THROMBOSIS 2.0-3.0 PULMONARY EMBOLISM 2.0-3.0 PREVENTION OF SYSTEMIC EMBOLISM FROM: TISSUE HEART VALVES 2.0-3.0 ACUTE MYOCARDIAL INFARCTION 2.0-3.0 VALVULAR HEART DISEASE 2.0-3.0 ATRIAL FIBRILLATION 2.0-3.0 MECHANICAL VALVES(HIGH RISK) 2.5-3.5 RECURRENT MYOCARDIAL INFARCTION 2.5-3.5 7 DIAGNOSIS CRITERIA MMB ng/ml Relative Index (RI) NON-AMI < or = 5 N/A AQUINO ZONE > 5 < or = 4 AMI > 5 > 4 8 Troponin I Reference Interva l for Siemens [place] LOCI: 99th Percentile= 0.00-0.045 ng/ml Risk Stratification: <= 0.10 ng/ml Decreased Risk for Adverse Clinical Events. 0.10-1.50 ng/ml Increased Risk for Adv erse Clinical Events. Evaluation of additional criterion and/or repeat testing in 2-6 hours is suggested to rule out myocardial damage. >= 1.50 ng/ml Indicative of Myocardial Injury. 9 note:<nlbl:[facility] ed> Y/N query for Sepsis Lactate Rule: Y 10 DIAGNOSIS CRITERIA MMB ng/ml Relative Index (RI) NON-AMI < or = 5 N/A AQUINO ZONE > 5 < or = 4 AMI > 5 > 4 11 Troponin I Reference Interva l for [employer] [place] LOCI: 99th Percentile= 0.00-0.045 ng/ml Risk Stratification: <= 0.10 ng/ml Decreased Risk for Adverse Clinical Events. 0.10-1.50 ng/ml Increased Risk for Adv erse Clinical Events. Evaluation of additional criterion and/or repeat testing in 2-6 hours is suggested to rule out myocardial damage. >= 1.50 ng/ml Indicative of Myocardial Injury. 12 note:<nlbl:[facility] ed> 13 CKD-EPI 14 CKD-EPI 15 Below the Measuring Range 16 SRC:URINE 17 Source of Specimen: URINE 18 Source of Specimen: URINE Culture shows less than 10,000 colony forming units of bacteria per milliliter of urine. This colony count is not generally considered to be clinically significant. 19 NORMAL RANGES Age WBC RBC HGB HCT [...] HCT IS 5% LESS SOURCE FOR DATA: [employer] 1800 OPERATION MANUAL( AUTOMATED BLOOD COUNTS AND [...] Normal 80 and above >32 mL/min Normal 20 CKD-EPI 21 CKD-EPI Procedures Date Code Description Status 04/15/2020 77432 Capillary Blood Collection Finge r, Heel, Ear Stick Completed 03/10/2020 99553 Capillary Blood Collection Finge r, Heel, Ear Stick Completed 03/03/2020 42661 Capillary Blood Collection Finge r, Heel, Ear Stick Completed 02/29/2020 97861 Capillary Blood Collection Finge r, Heel, Ear Stick Completed 03/10/2016 [id number] Mammogram Completed Medical Devices Description No Information Available Encounters Type Date Location Provider Dx Diagnosis Office Visit 04/29/2020 1:15p [place] [facility] Roshan Long M. D. K81.0 Acute cholecystitis K75.0 Abscess of liver I81 Portal vein thrombosis R60.9 Edema, unspecified Office Visit 04/15/2020 2:45p [place] [facility] Roshan Long M. D. K81.0 Acute cholecystitis K75.0 Abscess of liver I81 Portal vein thrombosis I26.99 Other pulmonary embolism wit hout acute cor pulmonale Office Visit 03/17/2020 2:30p [place] [facility] Roshan Long M. D. I26.99 Other pulmonary embolism without acute cor pulmonale K81.0 Acute cholecystitis Office Visit 02/27/2020 10:40a [place] [facility] Roshan Long M. D. I26.99 Other pulmonary embolism without acute cor pulmonale K81.0 Acute cholecystitis Office Visit 01/30/2020 1:15p [place] [facility] Roshan Long M. D. R63.5 Abnormal weight gain E05.[address] w diffuse goi [address] w/o thyrotoxic crisis F33.0 Major depressive disorder, r ecurrent, mild D64.9 Anemia, unspecified Z23 Encounter for immunization Office Visit 2019 1:00p [place] [facility] Roshan Long M. D. R63.5 Abnormal weight gain E05.00 Thy[address]toxicosis w diffuse goi ter w/o thyrotoxic crisis F33.0 Major depressive disorder, r ecurrent, mild R74.0 Nonspec elev of levels of tr ansamns & lactic acid dehydrgnse Assessments Date Code Description Provider 04/29/2020 K81.0 [...] pulmonary embolism without acute cor pulmonale Laboratory [place] Schedule 03/10/2020 I26.99 Other pulmonary embolism without acute cor pulmonale Roshan Long M.D. 03/10/2020 I26.99 Other pulmonary embolism without acute cor pulmonale Laboratory [place] Schedule 03/10/2020 Z79.01 exterminator (current) use of antic emilygulanRoshan Farias M.D. 03/03/2020 I26.99 Other pulmonary embolism without acute cor pulmonale Roshan Long M.D. 03/03/2020 I26.99 Other pulmonary embolism without acute cor pulmonale Laboratory [place] Schedule 03/03/2020 Z79.01 exterminator (current) use of antic emilyguRoshan Gonzalez M.D. 02/29/2020 I26.99 Other pulmonary embolism without acute cor pulmonale Roshan Long M.D. 02/29/2020 I26.99 Other pulmonary embolism without acute cor pulmonale Laboratory [place] Schedule 02/29/2020 Z79.01 long-term (current) use of antic emilygulanRoshan Farias M.D. [...] Z23 Encounter for immunization Roshan Benitez M.D. 2019 R63.5 Abnormal weight gain Grazyna Long M.D. 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 2019 F33.0 Major depressive disorder, recur rent, mild Roshan Long M.D. 2019 R74.0 Nonspecific elevatio n of levels of transaminase and lactic acid dehydrogenase [LDH] Roshan Long M.D. Plan of Treatment No Information Available Functional Status Description No Information Available Mental Status Description No Information Available Referrals Refer to Reason for Referral Status Appt Date Andrés Araujo M.D. cholecystitis, recent PE- eval and rx Sent 03/12/2020 [address] [facility], [address] [place] [address] [phone] Elliot Gomes M.D. r/o Graves ophthalmopathy Sent [address] [facility] [address] [place] [address] [phone]
[2020-06-18] MEDS ORDERED: TORS10TA3 PO (15:44)
[2020-06-18] MEDS ORDERED: MORP-69 PO (15:44)
--- OUTSIDE RECORDS SUMMARY | 2020-06-18 15:44 | CCD | Continuity of Care Document ---
Author Author Munira LONG M.D. Organization Unknown Address [address] [place] [id number] Phone [phone] Care Team Providers Care Parachute Line Tier Name Role Phone Carine Del Toro M.D. AUTM [phone] Problems Active Problems Provider Date Type 2 diabetes mellitus Roshan Long M.D. Onset: 03/24 Hyperlipidemia Roshan Long M.D. Onset: 3 Benign essential hypertension Roshan Long M.D. Onset: 04/18/2013 Ulcerative colitis Roshan Long M.D. Onset: 3 H/O: pulmonary embolus Ethel Armstrong, [facility] Onset: 017 Social History Type Date [...] CPT Code Status Date Vaccine Lot # [id number] Given 01/30/2020 Influenza Virus Vaccine, Quadrivalent, Slit Virus, Im Use 3Y & Up [id number] Given 02/19/2019 Influenza Virus Vaccine, Quadrivalent, Slit Virus, Im Use 3Y & Up [id number] Given 07/11/2015 Pneumococcal Immunization L0 [id number] Vital Signs Date Vital Result Comment 04/15/2020 2:45pm BP Systolic 118 mmHg BP Diastolic 74 mmHg Body Temperature 97.9 F Heart Rate 80 /min Respiratory Rate 18 /min Height 58 inches 4'10" Weight 169.00 lb [place] Body Weight 100 lb BMI (Body Mass Index) 35.3 kg/m2 O2 % BldC Oximetry 95 % 03/17/2020 2:34pm BP Systolic 128 mmHg BP Diastolic 82 mmHg Body Temperature 97.6 F Heart Rate 70 /min Respiratory Rate 16 /min Height 58 inches 4'10" Weight 169.00 lb [place] Body Weight 100 lb BMI (Body Mass Index) 35.3 kg/m2 O2 % BldC Oximetry 92 % Results Test Acquired Date Facility Test Result H/L Range Note CBC With Differential 04/23/2020 [facility] ([facility]) [phone] White Blood Count 12.4 10 High 4.0-10.0 [...] 36.0-66.0 Lymph % 10.7 % Low 24.0-44.0 Gilli[place] % 11.2 % High 0.0-5.0 Eos % 7.1 % High 0.0-3.0 Baso % 0.8 % Normal 0.0-1.0 Immature Granulocyte % 0.4 % Normal 0-3.0 Nucleated Red Blood Cell % 0.0 % Normal 0-0 Neutrophils # 8.7 10 High 1.5-8.5 Lymph # 1.3 10 Low 1.5-5.0 Gilliam # 1.4 10 High 0.0-0.8 Eos # 0.9 10 High 0.0-0.5 Baso # 0.1 10 Normal 0.0-0.2 Prothrombin Time/Inr 04/23/2020 [facility] ( Interface) [phone] Prothrombin Time 22.5 seconds High 12.5-14.3 Inr 1.93 Normal 1 Liver Profile 04/23/2020 [facility] (I nterface) [phone] Ast/Sgot 45 U/L High 7-37 Alt/SGPT 64 U/L Normal 12-78 Alkaline Phosphatase 237 U/L High 45-117 Bilirubin,Total 0.4 mg/dL Normal 0.2-1.0 Bilirubin,Direct 0.1 mg/dL Normal 0.0-0.2 Total Protein 7.5 GM/DL Normal 6.4-8.2 Albumin 3.2 GM/DL Normal 3.2-5.2 Albumin/Globulin Ratio 0.7 Low 1.2-2.2 Basic Metabolic Profile 04/23/2020 [facility] (Interface) [phone] Glucose, Fasting 128 mg/dL High 70-100 Blood [...] mg/dL Normal 8.8-10.2 PT With Inr-Therapy 04/15/2020 [facility] Prothrombin Time-Therapy 61.0 International Normalized Ratio 5.1 Dosage SKIP WTH Comment 1 CONT 2 DAILY Recheck 2 WEEKS PT With Inr-Therapy 03/17/2020 [facility] Mariel [place] Prothrombin Time-Therapy 25.4 International [...] eGFR 85 # Calc 4 eGFR Non-Afr. [place] 73 # Calc 5 PT With Inr-Therapy 03/10/2020 [facility] Asso ciates Prothrombin Time-Therapy 32.0 International Normalized Ratio 2.7 Dosage 4 DAILY Recheck 1 WEEK PT With Inr-Therapy 03/03/2020 [facility] As[facility]ates Prothrombin Time-Therapy 42.3 International Normalized Ratio 3.5 Dosage STOP SHOTS Comment 1 4 DAILY Recheck 1 WEEK PT With Inr-Therapy 02/29/2020 [facility] Asso [facility]ates Prothrombin Time-Therapy 13.1 International Normalized Ratio 1.1 Dosage CONT SHOTS Comment 1 6M DAILY Recheck 03/03 PT & Aptt 02/18/2020 [facility]) [phone] Prothrombin Time 13.8 seconds Normal 12.5-14.3 Inr 1.03 Normal 6 Partial Thromboplastin Time 24.1 seconds Low 24.2-38.5 Cardiac Marker Panel 02/18/2020 [facility] ( Interface) [phone] CPK Creatine Phosphokinase 45 U/L Normal 26-19 2 CK-MB Value Mass 1.6 NG/ML Normal <3.6 MB/CK Relative Index 3.56 Normal < Or =4 7 Troponin I 0.22 NG/ML < 0.10 8 Istat Chem8+ Panel 02/18/2020 [facility] [phone] iSTAT HCT 41.0 % Normal 38.0-51.0 iSTAT Glucose 167 mg/dL High 70-105 iSTAT Sodium 140 mEq/L Normal 136-145 iSTAT Potassium 2.8 mEq/L Critical low 3.5-5.1 iSTAT CA++ 4.7 mg/dL Normal 4.5-5.3 iSTAT Chloride 101 mEq/L Normal 98-109 iSTAT Co2 28.0 MM/L High 23.0-27.0 iSTAT BUN 17 mg/dL Normal 8-26 iSTAT Creatinine 1.0 mg/dL Normal 0.6-1.3 CBC With Differential 02/18/2020 [facility] (Interface) [phone] White Blood Count 15.3 10 High 4.0-10.0 [...] 36.0-66.0 Lymph % 5.4 % Low 24.0-44.0 [place] % 8.6 % High 0.0-5.0 Eos % 2.1 % Normal 0.0-3.0 Baso % 0.6 % Normal 0.0-1.0 Immature Granulocyte % 0.6 % Normal 0-3.0 Nucleated Red Blood Cell % 0.0 % Normal 0-0 Neutrophils # 12.6 10 High 1.5-8.5 Lymph # 0.8 10 Low 1.5-5.0 [place] # 1.3 10 High 0.0-0.8 Eos # 0.3 10 Normal 0.0-0.5 Baso # 0.1 10 Normal 0.0-0.2 Laboratory test finding 02/18/2020 [facility] (Interface) [phone] Lactic Acid Sepsis Protocol 2.4 mmol/L Critical high 0 .4-2.0 9 Cardiac Marker Panel 02/18/2020 [facility] ( Interface) [phone] CPK Creatine Phosphokinase 41 U/L Normal 26-19 2 CK-MB Value Mass < 1.0 NG/ML Normal <3.6 MB/CK Relative Index 2.44 Normal < Or =4 10 Troponin I 0.08 NG/ML Normal < 0.10 11 Liver Profile 02/18/2020 [facility] (I nterfa) [phone] Ast/Sgot 14 U/L Normal 7-37 Alt/SGPT 14 U/L Normal 12-78 Alkaline Phosphatase 150 U/L High 45-117 Bilirubin,Total 0.4 mg/dL Normal 0.2-1.0 Bilirubin,Direct 0.1 mg/dL Normal 0.0-0.2 Total Protein 7.1 GM/DL Normal 6.4-8.2 Albumin 3.1 GM/DL Low 3.2-5.2 Albumin/Globulin Ratio 0.8 Low 1.2-2.2 Laboratory test finding 02/18/2020 [facility] (Interface) [phone] Lipase 139 U/L Normal 73-393 12 CMP [...] eGFR 85 # Calc 13 eGFR Non-Afr. [place]an 73 # Calc 14 CBC 01/30/2020 FPA/Inhouse [...] See Comment: 18 U/A DIP FPA 2019 [facility] Asso ciates Color Urine YELLOW Yellow Appearance CLEAR Clear Specific [place] 1.015 1.00-1.03 PH Urine 5.5 5.0-8.0 Glucose [...] eGFR 85 # Calc 20 eGFR Non-Afr. [place] 73 # Calc 21 CBC 2019 FPA/Inhouse [...] Little GFR Left ESRD GFR <15 on ETHNOARCHAEOLOGIST 3 NORMAL RANGES Age WBC RBC HGB [...] HCT IS 5% LESS SOURCE FOR DATA: Achieve3000 1800 OPERATION MANUAL( AUTOMATED BLOOD COUNTS AND [...] Troponin I Reference Interva l for Siemens [place] LOCI: 99th Percentile= 0.00-0.045 ng/ml Risk Stratification: <= 0.10 ng/ml Decreased Risk for Adverse Clinical Events. 0.10-1.50 ng/ml Increased Risk for Adv erse Clinical Events. Evaluation of additional criterion and/or repeat testing in 2-6 hours is suggested to rule out myocardial damage. >= 1.50 ng/ml Indicative of Myocardial Injury. 9 note:<nlbl:[facility] ed> Y/N query for Sepsis Lactate Rule: Y 10 DIAGNOSIS CRITERIA MMB ng/ml Relative Index (RI) NON-AMI < or = 5 N/A AQUINO ZONE > 5 < or = 4 AMI > 5 > 4 11 Troponin I Reference Interva l for Siemens [place] LOCI: 99th Percentile= 0.00-0.045 ng/ml Risk Stratification: <= 0.10 ng/ml Decreased Risk for Adverse Clinical Events. 0.10-1.50 ng/ml Increased Risk for Adv erse Clinical Events. Evaluation of additional criterion and/or repeat testing in 2-6 hours is suggested to rule out myocardial damage. >= 1.50 ng/ml Indicative of Myocardial Injury. 12 note:<nlbl:[facility] ed> 13 CKD-EPI 14 CKD-EPI 15 Below [...] HCT IS 5% LESS SOURCE FOR DATA: Achieve3000 1800 OPERATION MANUAL( AUTOMATED BLOOD COUNTS AND [...] CKD-EPI Procedures Date Code Description Status 04/15/2020 35234 Capillary Blood Collection Finge r, Heel, Ear Stick Completed 03/10/2020 46233 Capillary Blood Collection Finge r, Heel, Ear Stick Completed 03/03/2020 02731 Capillary Blood Collection Finge r, Heel, Ear Stick Completed 02/29/2020 42326 Capillary Blood Collection Finge r, Heel, Ear Stick Completed 03/10/2016 [id number] Mammogram Completed Medical Devices Description No Information Available Encounters Type Date Location Provider Dx Diagnosis Office Visit 04/15/2020 2:45p [facility] Roshan Long M. D. K81.0 Acute cholecystitis K75.0 Abscess of liver I81 Portal vein thrombosis I26.99 Other pulmonary embolism wit hout acute cor pulmonale Office Visit 03/17/2020 2:30p [facility] Roshan Long M. D. I26.99 Other pulmonary embolism without acute cor pulmonale K81.0 Acute cholecystitis Office Visit 02/27/2020 10:40a [facility] Roshan Long M. D. I26.99 Other pulmonary embolism without acute cor pulmonale K81.0 Acute cholecystitis Office Visit 01/30/2020 1:15p [facility] Roshan Long M. D. 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 D. 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 [...] pulmonary embolism without acute cor pulmonale Laboratory [place] Schedule 03/10/2020 I26.99 Other pulmonary embolism without acute cor pulmonale Roshan Long M.D. 03/10/2020 I26.99 Other pulmonary embolism without acute cor pulmonale Laboratory [place] Schedule 03/10/2020 Z79.01 senior living (current) use of Roshan Ortiz M.D. 03/03/2020 I26.99 Other pulmonary embolism without acute cor pulmonale Roshan Long M.D. 03/03/2020 I26.99 Other pulmonary embolism without acute cor pulmonale Laboratory [place] Schedule 03/03/2020 Z79.01 senior living (current) use of antic Roshan Boles M.D. 02/29/2020 I26.99 Other pulmonary embolism without acute cor pulmonale Roshan Long M.D. 02/29/2020 I26.99 Other pulmonary embolism without acute cor pulmonale Laboratory [place] Schedule 02/29/2020 Z79.01 intermediate frame tender (current) use of Roshan Ortiz M.D. 02/27/2020 I26.99 Other pulmonary embolism without acute cor pulmonale Roshan Long M.D. 02/27/2020 K81.0 Acute cholecystitis Luke Long M.D. 01/30/2020 R63.5 Abnormal weight gain Grazyna Long M.D. 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 01/30/2020 F33.0 Major depressive disorder, recur renbarbara, Roshan Caceres M.D. 01/30/2020 D64.9 Anemia, unspecified Luke Long [...] [LDH] Roshan Long M.D. Plan of Treatment Future Appointment(s):* 04/29/2020 1:15 pm - Roshan Long M.D. at [facility] Functional Status Description No Information Available Mental Status Description No Information Available Referrals Refer to Dr Reason for Referral Status Appt Date Andrés Araujo M.D. cholecystitis, recent PE- eval and rx Sent 03/12/2020 [address] [facility] [address] [place] [address] [phone] Elliot Gomes M.D. r/o Graves ophthalmopathy Sent [address] [facility] [address] [place] [address] [phone]
--- OUTSIDE RECORDS SUMMARY | 2020-06-18 15:44 | CCD | Continuity of Care Document ---
Author Author Munira LONG M.D. Organization Unknown Address [address] [place] [id number] Phone [phone] Care Team Providers Care Electrician'S Helper Name Role Phone Carine Del Toro M.D. AUTM [phone] Problems Active Problems Provider Date Type 2 diabetes mellitus Roshan Long M.D. Onset: 03/24 Hyperlipidemia Roshan Long M.D. Onset: 3 Benign essential hypertension Roshan Long M.D. Onset: 04/18/2013 Ulcerative colitis Roshan Long M.D. Onset: 3 H/O: pulmonary embolus Ethel Armstrong, [facility] Onset: 017 Social History Type [...] CPT Code Status Date Vaccine Lot # [id number] Given 01/30/2020 Influenza Virus Vaccine, Quadrivalent, Slit Virus, Im Use 3Y & Up [id number] [id number] Given 02/19/2019 Influenza Virus Vaccine, Quadrivalent, Slit Virus, Im Use 3Y & Up [id number] 41418 Given 07/11/2015 Pneumococcal Immunization L0 42145 Vital Signs Date Vital Result Comment 04/15/2020 2:45pm BP Systolic 118 mmHg BP Diastolic 74 mmHg Body Temperature 97.9 F Heart Rate 80 /min Respiratory Rate 18 /min Height 58 inches 4'10" Weight 169.00 lb [place] Body Weight 100 lb BMI (Body Mass Index) 35.3 kg/m2 O2 % BldC Oximetry 95 % 03/17/2020 2:34pm BP Systolic 128 mmHg BP Diastolic 82 mmHg Body Temperature 97.6 F Heart Rate 70 /min Respiratory Rate 16 /min Height 58 inches 4'10" Weight 169.00 lb [place] Body Weight 100 lb BMI (Body Mass Index) 35.3 kg/m2 O2 % BldC Oximetry 92 % Results Test Acquired Date Facility Test Result H/L Range Note [facility] 25.4 International Normalized Ratio 2.1 Dosage 4 DAILY Recheck 1 MONTH CBC 03/17/2020 FPA/Inhouse WBC 11.5 10E3/uL High 4.1 - 10.9 1 RBC 4.76 10E6/uL 4.20 - 6.30 HGB [...] Gap 16 mmol/L eGFR 85 # Calc 2 eGFR Non-Afr. Togolese 73 # Calc 3 PT With Inr-Therapy 03/10/2020 [facility] Asso ciates Prothrombin Time-Therapy 32.0 International Normalized Ratio 2.7 Dosage 4 DAILY Recheck 1 WEEK PT With Inr-Therapy 03/03/2020 [facility] Asso ciates Prothrombin Time-Therapy 42.3 International Normalized Ratio 3.5 Dosage STOP SHOTS Comment 1 4 DAILY Recheck 1 WEEK PT With Inr-Therapy 02/29/2020 [facility] Asso ciates Prothrombin Time-Therapy 13.1 International Normalized Ratio 1.1 Dosage CONT SHOTS Comment 1 6M DAILY Recheck 03/03 [facility] test finding [facility] [phone] Lipase 139 U/L Normal 73-393 4 Liver Profile 02/18/2020 [facility] (I nterface) [phone] Ast/Sgot 14 U/L Normal 7-37 Alt/SGPT 14 U/L Normal 12-78 Alkaline Phosphatase 150 U/L High 45-117 Bilirubin,Total 0.4 mg/dL Normal 0.2-1.0 Bilirubin,Direct 0.1 mg/dL Normal 0.0-0.2 Total Protein 7.1 GM/DL Normal 6.4-8.2 Albumin 3.1 GM/DL Low 3.2-5.2 Albumin/Globulin Ratio 0.8 Low 1.2-2.2 Cardiac Marker Panel 02/18/2020 [facility] ( Interface) [phone] CPK Creatine Phosphokinase 41 U/L Normal 26-19 2 CK-MB Value Mass < 1.0 NG/ML Normal <3.6 MB/CK Relative Index 2.44 Normal < Or =4 5 Troponin I 0.08 NG/ML Normal < 0.10 6 Laboratory test finding 02/18/2020 [facility] (Interface) [phone] Lactic Acid Sepsis Protocol 2.4 mmol/L Critical high 0 .4-2.0 7 CBC With Differential 02/18/2020 [facility] (Interface) [phone] White Blood Count 15.3 10 High 4.0-10.0 [...] 36.0-66.0 Lymph % 5.4 % Low 24.0-44.0 [place] % 8.6 % High 0.0-5.0 Eos % 2.1 % Normal 0.0-3.0 Baso % 0.6 % Normal 0.0-1.0 Immature Granulocyte % 0.6 % Normal 0-3.0 Nucleated Red Blood Cell % 0.0 % Normal 0-0 Neutrophils # 12.6 10 High 1.5-8.5 Lymph # 0.8 10 Low 1.5-5.0 [place] # 1.3 10 High 0.0-0.8 Eos # 0.3 10 Normal 0.0-0.5 Baso # 0.1 10 Normal 0.0-0.2 Istat Chem8+ Panel 02/18/2020 [facility]) [phone] iSTAT HCT 41.0 % Normal 38.0-51.0 iSTAT Glucose 167 mg/dL High 70-105 iSTAT Sodium 140 mEq/L Normal 136-145 iSTAT Potassium 2.8 mEq/L Critical low 3.5-5.1 iSTAT CA++ 4.7 mg/dL Normal 4.5-5.3 iSTAT Chloride 101 mEq/L Normal 98-109 iSTAT Co2 28.0 MM/L High 23.0-27.0 iSTAT BUN 17 mg/dL Normal 8-26 iSTAT Creatinine 1.0 mg/dL Normal 0.6-1.3 Cardiac Marker Panel 02/18/2020 [facility] ( Interface) [phone] CPK Creatine Phosphokinase 45 U/L Normal 26-19 2 CK-MB Value Mass 1.6 NG/ML Normal <3.6 MB/CK Relative Index 3.56 Normal < Or =4 8 Troponin I 0.22 NG/ML < 0.10 9 PT & Aptt 02/18/2020 [facility]) [phone] Prothrombin Time 13.8 seconds Normal 12.5-14.3 Inr 1.03 Normal 10 Partial Thromboplastin Time 24.1 seconds Low 24.2-38.5 CMP 01/30/2020 [facility]/Inhouse Glu 101 mg/dL 70 [...] Gap 13 mmol/L eGFR 85 # Calc 11 eGFR Non-Afr. [place]ogolese 73 # Calc 12 CBC 01/30/2020 [facility]/Inhouse WBC 9.2 10E3/uL 4.1 [...] < 0.030 ulU/mL Low 0.60 - 4.8 13 Urine Culture, Routine 2019 [facility] [place] Urine Culture, Routine Final report 14, 15 Result 1 See Comment: 16 U/A DIP FPA 2019 [facility] Asso ciates Color Urine YELLOW Yellow Appearance CLEAR Clear Specific [place] 1.015 1.00-1.03 PH Urine 5.5 5.0-8.0 Glucose Urine NEG Negative Bilirubin Urine NEG Negative Ketones NEG Negative Blood Urine NEG Negative Protein Urine NEG Negative Urobilinogen .2 EU/dl 0.2-1.0 Nitrite NEG Negative Leukocytes 1+ High Negative CMP 2019 F[facility]/Inhouse Glu 108 mg/dL 70 - 110 17 BUN 22 mg/dL 8 - 23 Creat [...] Gap 14 mmol/L eGFR 85 # Calc 18 eGFR Non-Afr. [place]ogolese 73 # Calc 19 CBC 2019 [facility]PA/Inhouse WBC 7.3 10E3/uL 4.1 [...] MPV 10.7 fL 9.0 - 13.0 1 NORMAL RANGES Age WBC RBC HGB [...] HCT IS 5% LESS SOURCE FOR DATA: MECLUB 1800 OPERATION MANUAL( AUTOMATED BLOOD COUNTS AND [...] mL/min Normal 2 CKD-EPI 3 CKD-EPI 4 note:<nlbl:[facility] ed> 5 DIAGNOSIS CRITERIA MMB ng/ml Relative Index (RI) NON-AMI < or = 5 N/A AQUINO ZONE > 5 < or = 4 AMI > 5 > 4 6 Troponin I Reference Interva l for Siemens [place] LOCI: 99th Percentile= 0.00-0.045 ng/ml Risk Stratification: <= 0.10 ng/ml Decreased Risk for Adverse Clinical Events. 0.10-1.50 ng/ml Increased Risk for Adv erse Clinical Events. Evaluation of additional criterion and/or repeat testing in 2-6 hours is suggested to rule out myocardial damage. >= 1.50 ng/ml Indicative of Myocardial Injury. 7 note:<nlbl:[facility] ed> Y/N query for Sepsis Lactate Rule: Y 8 DIAGNOSIS CRITERIA MMB ng/ml Relative Index (RI) NON-AMI < or = 5 N/A AQUINO ZONE > 5 < or = 4 AMI > 5 > 4 9 Troponin I Reference Interva l for Siemens [place] LOCI: 99th Percentile= 0.00-0.045 ng/ml Risk Stratification: <= 0.10 ng/ml Decreased Risk for Adverse Clinical Events. 0.10-1.50 ng/ml Increased Risk for Adv erse Clinical Events. Evaluation of additional criterion and/or repeat testing in 2-6 hours is suggested to rule out myocardial damage. >= 1.50 ng/ml Indicative of Myocardial Injury. 10 THERAPUTIC HUMAN INR VALUES INDICATIONS NORMAL RANGES PROPHYLAXIS/TREATMENT OF: VENOUS THROMBOSIS 2.0-3.0 PULMONARY EMBOLISM 2.0-3.0 PREVENTION OF SYSTEMIC EMBOLISM FROM: TISSUE HEART VALVES 2.0-3.0 ACUTE MYOCARDIAL INFARCTION 2.0-3.0 VALVULAR HEART DISEASE 2.0-3.0 ATRIAL FIBRILLATION 2.0-3.0 MECHANICAL VALVES(HIGH RISK) 2.5-3.5 RECURRENT MYOCARDIAL INFARCTION 2.5-3.5 11 CKD-EPI 12 CKD-EPI 13 Below the Measuring Range 14 SRC:URINE 15 Source of Specimen: URINE 16 Source of Specimen: URINE Culture shows less than 10,000 colony forming units of bacteria per milliliter of urine. This colony count is not generally considered to be clinically significant. 17 NORMAL RANGES Age WBC RBC HGB HCT [...] HCT IS 5% LESS SOURCE FOR DATA: MECLUB 1800 OPERATION MANUAL( AUTOMATED BLOOD COUNTS AND [...] Normal 80 and above >32 mL/min Normal 18 CKD-EPI 19 CKD-EPI Procedures Date Code Description Status 03/10/2020 78091 Capillary Blood Collection Finge r, Heel, Ear Stick Completed 03/03/2020 66771 Capillary Blood Collection Finge r, Heel, Ear Stick Completed 02/29/2020 66398 Capillary Blood Collection Finge r, Heel, Ear Stick Completed 03/10/2016 [id number] Mammogram Completed Medical Devices Description No Information Available Encounters Type Date Location Provider Dx Diagnosis Office Visit 04/15/2020 2:45p [facility] Roshan Long M. D. K81.0 Acute cholecystitis K75.0 Abscess of liver I81 Portal vein thrombosis Office Visit 03/17/2020 2:30p [facility] Roshan Long M. D. I26.99 Other pulmonary embolism without acute cor pulmonale K81.0 Acute cholecystitis Office Visit 02/27/2020 10:40a [facility] Roshan Long M. D. I26.99 Other pulmonary embolism without acute cor pulmonale K81.0 Acute cholecystitis Office Visit 01/30/2020 1:15p [facility] Roshan Long M. D. 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 D. R63.5 Abnormal [...] I81 Portal vein thrombosis Roshan Long M.D. 03/17/2020 I26.99 Other pulmonary embolism without acute cor pulmonale Roshan Long M.D. 03/17/2020 K81.0 Acute cholecystitis Luke Long M.D. 03/17/2020 I26.99 Other pulmonary embolism without acute cor pulmonale Laboratory [facility] Schedule 03/10/2020 I26.99 Other pulmonary embolism without acute cor pulmonale Roshan Long M.D. 03/10/2020 I26.99 Other pulmonary embolism without acute cor pulmonale Laboratory [facility] Schedule 03/10/2020 Z79.01 rn long term care (current) use of Roshan Ortiz M.D. 03/03/2020 I26.99 Other pulmonary embolism without acute cor pulmonale Roshan Long M.D. 03/03/2020 I26.99 Other pulmonary embolism without acute cor pulmonale Laboratory [facility] Schedule 03/03/2020 Z79.01 [facility] (current) use of Roshan Ortiz M.D. 02/29/2020 I26.99 Other pulmonary embolism without acute cor pulmonale Roshan Long M.D. 02/29/2020 I26.99 Other pulmonary embolism without acute cor pulmonale Laboratory [facility] Schedule 02/29/2020 Z79.01 rn long term care (current) use of Roshan Ortiz M.D. 02/27/2020 [...] 1:15 pm - Roshan Long M.D. at [facility] Functional Status Description No Information Available Mental Status Description No Information Available Referrals Refer to Reason for Referral Status Appt Date Andrés Araujo M.D. cholecystitis, recent PE- eval and rx Sent 03/12/2020 [address] [facility], [address] [place] [address] [phone] Elliot Gomes M.D. r/o Graves ophthalmopathy Sent [address] [facility] [address] [place] [address] [phone]
--- OUTSIDE RECORDS SUMMARY | 2020-06-18 15:44 | CCD | Continuity of Care Document ---
Author Author Mnuira LONG M.D. Organization Unknown Address [address] [id number] Phone [phone] Care Team Providers Care Carpet Journeyman Name Role Phone Carine Del Toro M.D. AUTM [phone] Problems Active Problems Provider Date Type 2 diabetes mellitus Roshan Long M.D. Onset: 03/24 Hyperlipidemia Roshan Long M.D. Onset: 3 Benign essential hypertension Roshan Long M.D. Onset: 04/18/2013 Ulcerative colitis Roshan Long M.D. Onset: 3 H/O: pulmonary embolus Ethel Armstrong, [facility] Onset: 017 Social History Type Date [...] CPT Code Status Date Vaccine Lot # [id number] Given 01/30/2020 Influenza Virus Vaccine, Quadrivalent, Slit Virus, Im Use 3Y & Up [id number] Given 02/19/2019 Influenza Virus Vaccine, Quadrivalent, Slit Virus, Im Use 3Y & Up [id number] 08856 Given 07/11/2015 Pneumococcal Immunization [id number] Vital Signs Date Vital Result Comment 04/15/2020 2:45pm BP Systolic 118 mmHg BP Diastolic 74 mmHg Body Temperature 97.9 F Heart Rate 80 /min Respiratory Rate 18 /min Height 58 inches 4'10" Weight 169.00 lb [place] Body Weight 100 lb BMI (Body Mass Index) 35.3 kg/m2 O2 % BldC Oximetry 95 % 03/17/2020 2:34pm BP Systolic 128 mmHg BP Diastolic 82 mmHg Body Temperature 97.6 F Heart Rate 70 /min Respiratory Rate 16 /min Height 58 inches 4'10" Weight 169.00 lb [place] Body Weight 100 lb BMI (Body Mass Index) 35.3 kg/m2 O2 % BldC Oximetry 92 % Results Test Acquired Date Facility Test Result H/L Range Note PT With Inr-Therapy 04/15/2020 [facility] Prothrombin Time-Therapy 61.0 International Normalized Ratio 5.1 Dosage SKIP WT Comment 1 CONT 2 DAILY Recheck 2 WEEKS PT With Inr-Therapy 03/17/2020 [facility] Prothrombin Time-Therapy 25.4 International Normalized [...] eGFR 85 # Calc 2 eGFR Non-Afr. [place] 73 # Calc 3 PT With Inr-Therapy 03/10/2020 [facility] Prothrombin Time-Therapy 32.0 International Normalized Ratio 2.7 Dosage 4 DAILY Recheck 1 WEEK PT With Inr-Therapy 03/03/2020 [facility] Prothrombin Time-Therapy 42.3 International Normalized Ratio 3.5 Dosage STOP SHOTS Comment 1 4 DAILY Recheck 1 WEEK PT With Inr-Therapy 02/29/2020 [facility] Prothrombin Time-Therapy 13.1 International Normalized Ratio 1.1 Dosage CONT SHOTS Comment 1 6M DAILY Recheck 03/03 PT & Aptt 02/18/2020 [facility] ([facility]) [phone] Prothrombin Time 13.8 seconds Normal 12.5-14.3 Inr 1.03 Normal 4 Partial Thromboplastin Time 24.1 seconds Low 24.2-38.5 Cardiac Marker Panel 02/18/2020 [facility] ( Interface) [phone] CPK Creatine Phosphokinase 45 U/L Normal 26-19 2 CK-MB Value Mass 1.6 NG/ML Normal <3.6 MB/CK Relative Index 3.56 Normal < Or =4 5 Troponin I 0.22 NG/ML < 0.10 6 Istat Chem8+ Panel 02/18/2020 [facility] [phone] iSTAT HCT 41.0 % Normal 38.0-51.0 iSTAT Glucose 167 mg/dL High 70-105 iSTAT Sodium 140 mEq/L Normal 136-145 iSTAT Potassium 2.8 mEq/L Critical low 3.5-5.1 iSTAT CA++ 4.7 mg/dL Normal 4.5-5.3 iSTAT Chloride 101 mEq/L Normal 98-109 iSTAT Co2 28.0 MM/L High 23.0-27.0 iSTAT BUN 17 mg/dL Normal 8-26 iSTAT Creatinine 1.0 mg/dL Normal 0.6-1.3 CBC With Differential 02/18/2020 [facility] ([facility]) [phone] White Blood Count 15.3 10 High 4.0-10.0 [...] 36.0-66.0 Lymph % 5.4 % Low 24.0-44.0 [place] % 8.6 % High 0.0-5.0 Eos % 2.1 % Normal 0.0-3.0 Baso % 0.6 % Normal 0.0-1.0 Immature Granulocyte % 0.6 % Normal 0-3.0 Nucleated Red Blood Cell % 0.0 % Normal 0-0 Neutrophils # 12.6 10 High 1.5-8.5 Lymph # 0.8 10 Low 1.5-5.0 [place] # 1.3 10 High 0.0-0.8 Eos # 0.3 10 Normal 0.0-0.5 Baso # 0.1 10 Normal 0.0-0.2 Laboratory test finding 02/18/2020 [facility] (Interface) [phone] Lactic Acid Sepsis Protocol 2.4 mmol/L Critical high 0 .4-2.0 7 Cardiac Marker Panel 02/18/2020 [facility] ( [facility]) [phone] CPK Creatine Phosphokinase 41 U/L Normal 26-19 2 CK-MB Value Mass < 1.0 NG/ML Normal <3.6 MB/CK Relative Index 2.44 Normal < Or =4 8 Troponin I 0.08 NG/ML Normal < 0.10 9 Liver Profile 02/18/2020 [facility] (I nterface) [phone] Ast/Sgot 14 U/L Normal 7-37 Alt/SGPT 14 U/L Normal 12-78 Alkaline Phosphatase 150 U/L High 45-117 Bilirubin,Total 0.4 mg/dL Normal 0.2-1.0 Bilirubin,Direct 0.1 mg/dL Normal 0.0-0.2 Total Protein 7.1 GM/DL Normal 6.4-8.2 Albumin 3.1 GM/DL Low 3.2-5.2 Albumin/Globulin Ratio 0.8 Low 1.2-2.2 Laboratory test finding 02/18/2020 [facility] ([facility]) [phone] Lipase 139 U/L Normal 73-393 10 CMP 01/30/2020 [facility] Glu 101 mg/dL 70 [...] eGFR 85 # Calc 11 eGFR Non-Afr. [place] 73 # Calc 12 CBC 01/30/2020 [facility] [...] See Comment: 16 U/A DIP FPA 2019 [facility] Color Urine YELLOW Yellow Appearance CLEAR Clear Specific [place] 1.015 1.00-1.03 PH Urine 5.5 5.0-8.0 Glucose [...] eGFR 85 # Calc 18 eGFR Non-Afr. [place] 73 # Calc 19 CBC 2019 [facility] [...] HCT IS 5% LESS SOURCE FOR DATA: Fonix 1800 OPERATION MANUAL( AUTOMATED BLOOD COUNTS AND [...] RISK) 2.5-3.5 RECURRENT MYOCARDIAL INFARCTION 2.5-3.5 5 DIAGNOSIS CRITERIA MMB ng/ml Relative Index (RI) NON-AMI < or = 5 N/A AQUINO ZONE > 5 < or = 4 AMI > 5 > 4 6 Troponin I Reference Interva l for Siemens [place] LOCI: 99th Percentile= 0.00-0.045 ng/ml Risk Stratification: <= 0.10 ng/ml Decreased Risk for Adverse Clinical Events. 0.10-1.50 ng/ml Increased Risk for Adv erse Clinical Events. Evaluation of additional criterion and/or repeat testing in 2-6 hours is suggested to rule out myocardial damage. >= 1.50 ng/ml Indicative of Myocardial Injury. 7 note:<nlbl:[facility] ed> Y/N query for Sepsis Lactate Rule: Y 8 DIAGNOSIS CRITERIA MMB ng/ml Relative Index (RI) NON-AMI < or = 5 N/A AQUINO ZONE > 5 < or = 4 AMI > 5 > 4 9 Troponin I Reference Interva l for Siemens [place] LOCI: 99th Percentile= 0.00-0.045 ng/ml Risk Stratification: <= 0.10 ng/ml Decreased Risk for Adverse Clinical Events. 0.10-1.50 ng/ml Increased Risk for Adv erse Clinical Events. Evaluation of additional criterion and/or repeat testing in 2-6 hours is suggested to rule out myocardial damage. >= 1.50 ng/ml Indicative of Myocardial Injury. 10 note:<nlbl:demographic_[facility] ed> 11 CKD-EPI 12 CKD-EPI 13 Below the [...] HCT IS 5% LESS SOURCE FOR DATA: F[employer]ix 1800 OPERATION MANUAL( AUTOMATED BLOOD COUNTS AND [...] 19 CKD-EPI Procedures Date Code Description Status 04/15/2020 01567 Capillary Blood Collection Finge r, Heel, Ear Stick Completed 03/10/2020 94923 Capillary Blood Collection Finge [place], Heel, Ear Stick Completed 03/03/2020 34320 Capillary Blood Collection Finge [place], Heel, Ear Stick Completed 02/29/2020 01423 Capillary Blood Collection Finge r, Heel, Ear Stick Completed 03/10/2016 [id number] Mammogram Completed Medical Devices Description No Information Available Encounters Type Date Location Provider Dx Diagnosis Office Visit 04/15/2020 2:45p [facility] Roshan Long M. D. K81.0 Acute cholecystitis K75.0 Abscess of liver I81 Portal vein thrombosis I26.99 Other pulmonary embolism wit hout acute cor pulmonale Office Visit 03/17/2020 2:30p [facility] Roshan Long M. D. I26.99 Other pulmonary embolism without acute cor pulmonale K81.0 Acute cholecystitis Office Visit 02/27/2020 10:40a [facility] Roshan Long M. D. I26.99 Other pulmonary embolism without acute cor pulmonale K81.0 Acute cholecystitis Office Visit 01/30/2020 1:15p [facility] Roshan Long M. D. R63.5 Abnormal weight gain E05.[address] w diffuse goi [address] w/o thyrotoxic crisis F33.0 Major depressive disorder, r ecurrent, mild D64.9 Anemia, unspecified Z23 Encounter for immunization Office Visit 2019 1:00p [facility] Roshan Long M. D. R63.5 Abnormal [...] pulmonary embolism without acute cor pulmonale Laboratory [facility] 03/10/2020 I26.99 Other pulmonary embolism without acute cor pulmonale Roshan Long M.D. 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 03/03/2020 I26.99 Other pulmonary embolism without acute cor pulmonale Roshan Long M.D. 03/03/2020 I26.99 Other pulmonary embolism without acute cor pulmonale Laboratory [facility] Schedule 03/03/2020 Z79.01 prison (current) use of antic Roshan Boles M.D. 02/29/2020 I26.99 Other pulmonary embolism without acute cor pulmonale Roshan Long M.D. 02/29/2020 I26.99 Other pulmonary embolism without acute cor pulmonale Laboratory [facility] Schedule 02/29/2020 Z79.01 medical terminologist (current) use of antic emilygulanRoshan Farias M.D. 02/27/2020 I26.99 Other pulmonary embolism without acute cor pulmonale Roshan Long M.D. 02/27/2020 K81.0 Acute cholecystitis Luke Long M.D. 01/30/2020 R63.5 Abnormal weight gain Grazyna Long M.D. 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 01/30/2020 F33.0 Major depressive disorder, recur quentin Roshan Caceres M.D. 01/30/2020 D64.9 Anemia, unspecified Luke Long M.D. 01/30/2020 Z23 Encounter for immunization Roshan Benitez M.D. 2019 R63.5 Abnormal weight gain Grazyna Long M.D. 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 2019 F33.0 Major depressive disorder, recur melodybarbara Roshan Caceres M.D. 2019 R74.0 Nonspecific elevatio n of levels of transaminase and lactic acid dehydrogenase [LDH] Roshan Long M.D. Plan of Treatment Future Appointment(s):* 04/29/2020 1:15 pm - Roshan Long M.D. at [facility] Functional Status Description No Information Available Mental Status Description No Information Available Referrals Refer to Reason for Referral Status Appt Date Andrés Araujo M.D. cholecystitis, recent PE- eval and rx Sent 03/12/2020 [address] [facility], [address] [place] [address] [phone] Elliot Gomes M.D. r/o Graves ophthalmopathy Sent [phone] [facility] [address] [place] [address] [phone]
--- OUTSIDE RECORDS SUMMARY | 2020-06-18 15:47 | CCD ---
Author Author [facility] Organization [facility] Address Unknown Phone Unavailable Care Team Providers Care Trim Die Maker Name Role Phone DRAZEK, I ALLISON PA Unavailable Unavailable DRAZEK, I ALLISON PA Unavailable Unavailable DRAZEK, I ALLISON PA Unavailable Unavailable DRAZEK, I ALLISON PA Unavailable Unavailable DRAZEK, I ALLISON PA Unavailable Unavailable DRAZEK, I ALLISON PA Unavailable Unavailable DRAZEK, I ALLISON PA Unavailable Unavailable DRAZEK, I ALLISON PA Unavailable Unavailable DRAZEK, I ALLISON PA Unavailable Unavailable DRAZEK, I ALLISON PA Unavailable Unavailable DRAZEK, I ALLISON PA Unavailable Unavailable DRAZEK, I ALLISON PA Unavailable Unavailable DRAZEK, I ALLISON PA Unavailable Unavailable DRAZEK, I ALLISON PA Unavailable Unavailable DRAZEK, I ALLISON PA Unavailable Unavailable DRAZEK, I ALLISON PA Unavailable Unavailable DRAZEK, I ALLISON PA Unavailable Unavailable DRAZEK, I ALLISON PA Unavailable Unavailable DRAZEK, I ALLISON PA Unavailable Unavailable DRAZEK, I ALLISON PA Unavailable Unavailable DRAZEK, I ALLISON PA Unavailable Unavailable DRAZEK, I ALLISON PA Unavailable Unavailable DRAZEK, I ALLISON PA Unavailable Unavailable DRAZEK, I ALLISON PA Unavailable Unavailable DRAZEK, I ALLISON PA Unavailable Unavailable DRAZEK, I ALLISON PA Unavailable Unavailable DRAZEK, I ALLISON PA Unavailable Unavailable DRAZEK, I ALLISON PA Unavailable Unavailable DRAZEK, I ALLISON PA Unavailable Unavailable DRAZEK, I ALLISON PA Unavailable Unavailable ALIASES , DEFAULT / GENERIC / UNKNOWN PROVIDER * Unavailable Unavailable ALIASES , DEFAULT / GENERIC / UNKNOWN PROVIDER * Unavailable Unavailable ALIASES , DEFAULT / GENERIC / UNKNOWN PROVIDER * Unavailable Unavailable ALIASES , DEFAULT / GENERIC / UNKNOWN PROVIDER * Unavailable Unavailable ALIASES , DEFAULT / GENERIC / UNKNOWN PROVIDER * Unavailable Unavailable ALIASES , DEFAULT / GENERIC / UNKNOWN PROVIDER * Unavailable Unavailable ALIASES , DEFAULT / GENERIC / UNKNOWN PROVIDER * Unavailable Unavailable ALIASES , DEFAULT / GENERIC / UNKNOWN PROVIDER * Unavailable Unavailable ALIASES , DEFAULT / GENERIC / UNKNOWN PROVIDER * Unavailable Unavailable ALIASES , DEFAULT / GENERIC / UNKNOWN PROVIDER * Unavailable Unavailable ALIASES , DEFAULT / GENERIC / UNKNOWN PROVIDER * Unavailable Unavailable ALIASES , DEFAULT / GENERIC / UNKNOWN PROVIDER * Unavailable Unavailable ALIASES , DEFAULT / GENERIC / UNKNOWN PROVIDER * Unavailable Unavailable ALIASES , DEFAULT / GENERIC / UNKNOWN PROVIDER * Unavailable Unavailable ALIASES , DEFAULT / GENERIC / UNKNOWN PROVIDER * Unavailable Unavailable ALIASES , DEFAULT / GENERIC / UNKNOWN PROVIDER * Unavailable Unavailable ALIASES , DEFAULT / GENERIC / UNKNOWN PROVIDER * Unavailable Unavailable ALIASES , DEFAULT / GENERIC / UNKNOWN PROVIDER * Unavailable Unavailable ALIASES , DEFAULT / GENERIC / UNKNOWN PROVIDER * Unavailable Unavailable ALIASES , DEFAULT / GENERIC / UNKNOWN PROVIDER * Unavailable Unavailable ALIASES , DEFAULT / GENERIC / UNKNOWN PROVIDER * Unavailable Unavailable ALIASES , DEFAULT / GENERIC / UNKNOWN PROVIDER * Unavailable Unavailable ALIASES , DEFAULT / GENERIC / UNKNOWN PROVIDER * Unavailable Unavailable ALIASES , DEFAULT / GENERIC / UNKNOWN PROVIDER * Unavailable Unavailable ALIASES , DEFAULT / GENERIC / UNKNOWN PROVIDER * Unavailable Unavailable ALIASES , DEFAULT / GENERIC / UNKNOWN PROVIDER * Unavailable Unavailable ALIASES , DEFAULT / GENERIC / UNKNOWN PROVIDER * Unavailable Unavailable ALIASES , DEFAULT / GENERIC / UNKNOWN PROVIDER * Unavailable Unavailable ALIASES , DEFAULT / GENERIC / UNKNOWN PROVIDER * Unavailable Unavailable ALIASES , DEFAULT / GENERIC / UNKNOWN PROVIDER * Unavailable Unavailable ALIASES , DEFAULT / GENERIC / UNKNOWN PROVIDER * Unavailable Unavailable ALIASES , DEFAULT / GENERIC / UNKNOWN PROVIDER * Unavailable Unavailable ALIASES , DEFAULT / GENERIC / UNKNOWN PROVIDER * Unavailable Unavailable ALIASES , DEFAULT / GENERIC / UNKNOWN PROVIDER * Unavailable Unavailable ALIASES , DEFAULT / GENERIC / UNKNOWN PROVIDER * Unavailable Unavailable ALIASES , DEFAULT / GENERIC / UNKNOWN PROVIDER * Unavailable Unavailable ALIASES , DEFAULT / GENERIC / UNKNOWN PROVIDER * Unavailable Unavailable ALIASES , DEFAULT / GENERIC / UNKNOWN PROVIDER * Unavailable Unavailable ALIASES , DEFAULT / GENERIC / UNKNOWN PROVIDER * Unavailable Unavailable ALIASES , DEFAULT / GENERIC / UNKNOWN PROVIDER * Unavailable Unavailable ALIASES , DEFAULT / GENERIC / UNKNOWN PROVIDER * Unavailable Unavailable ALIASES , DEFAULT / GENERIC / UNKNOWN PROVIDER * Unavailable Unavailable ALIASES , DEFAULT / GENERIC / UNKNOWN PROVIDER * Unavailable Unavailable CHARLENE, TALLAT Unavailable Unavailable COOK, B YESSICA PHARMACY GENERAL MANAGER Unavailable Unavailable COOK, B YESSICA PHARMACY GENERAL MANAGER Unavailable Unavailable COOK, B YESSICA PHARMACY GENERAL MANAGER Unavailable Unavailable COOK, B YESSICA PHARMACY GENERAL MANAGER Unavailable Unavailable COOK, B YESSICA PHARMACY GENERAL MANAGER Unavailable Unavailable COOK, B YESSICA PHARMACY GENERAL MANAGER Unavailable Unavailable COOK, B YESSICA PHARMACY GENERAL MANAGER Unavailable Unavailable COOK, B YESSICA PHARMACY GENERAL MANAGER Unavailable Unavailable COOK, B YESSICA PHARMACY GENERAL MANAGER Unavailable Unavailable COOK, B YESSICA PHARMACY GENERAL MANAGER Unavailable Unavailable COOK, B YESSICA PHARMACY GENERAL MANAGER Unavailable Unavailable COOK, B YESSICA PHARMACY GENERAL MANAGER Unavailable Unavailable COOK, B YESSICA PHARMACY GENERAL MANAGER Unavailable Unavailable COOK, B YESSICA PHARMACY GENERAL MANAGER Unavailable Unavailable COOK, B YESSICA PHARMACY GENERAL MANAGER Unavailable Unavailable COOK, B YESSICA PHARMACY GENERAL MANAGER Unavailable Unavailable COOK, B YESSICA PHARMACY GENERAL MANAGER Unavailable Unavailable COOK, B YESSICA PHARMACY GENERAL MANAGER Unavailable Unavailable COOK, B YESSICA PHARMACY GENERAL MANAGER Unavailable Unavailable COOK, B YESSICA PHARMACY GENERAL MANAGER Unavailable Unavailable COOK, B YESSICA PHARMACY GENERAL MANAGER Unavailable Unavailable COOK, B YESSICA PHARMACY GENERAL MANAGER Unavailable Unavailable COOK, B YESSICA PHARMACY GENERAL MANAGER Unavailable Unavailable COOK, B YESSICA PHARMACY GENERAL MANAGER Unavailable Unavailable COOK, B YESSICA PHARMACY GENERAL MANAGER Unavailable Unavailable COOK, B YESSICA PHARMACY GENERAL MANAGER Unavailable Unavailable COOK, B YESSICA PHARMACY GENERAL MANAGER Unavailable Unavailable COOK, B YESSICA PHARMACY GENERAL MANAGER Unavailable Unavailable COOK, B YESSICA PHARMACY GENERAL MANAGER Unavailable Unavailable COOK, B YESSICA PHARMACY GENERAL MANAGER Unavailable Unavailable COOK, B YESSICA PHARMACY GENERAL MANAGER Unavailable Unavailable COOK, B YESSICA PHARMACY GENERAL MANAGER Unavailable Unavailable COOK, B YESSICA PHARMACY GENERAL MANAGER Unavailable Unavailable COOK, B YESSICA PHARMACY GENERAL MANAGER Unavailable Unavailable COOK, B YESSICA PHARMACY GENERAL MANAGER Unavailable Unavailable COOK, B YESSICA PHARMACY GENERAL MANAGER Unavailable Unavailable COOK, B YESSICA PHARMACY GENERAL MANAGER Unavailable Unavailable COOK, B YESSICA PHARMACY GENERAL MANAGER Unavailable Unavailable COOK, B YESSICA PHARMACY GENERAL MANAGER Unavailable Unavailable COOK, B YESSICA PHARMACY GENERAL MANAGER Unavailable Unavailable COOK, B YESSICA PHARMACY GENERAL MANAGER Unavailable Unavailable COOK, B YESSICA PHARMACY GENERAL MANAGER Unavailable Unavailable COOK, B YESSICA PHARMACY GENERAL MANAGER Unavailable Unavailable COOK, B YESSICA PHARMACY GENERAL MANAGER Unavailable Unavailable COOK, B YESSICA PHARMACY GENERAL MANAGER Unavailable Unavailable COOK, B YESSICA PHARMACY GENERAL MANAGER Unavailable Unavailable COOK, B YESSICA PHARMACY GENERAL MANAGER Unavailable Unavailable COOK, B YESSICA PHARMACY GENERAL MANAGER Unavailable Unavailable COOK, B YESSICA PHARMACY GENERAL MANAGER Unavailable Unavailable COOK, B YESSICA PHARMACY GENERAL MANAGER Unavailable Unavailable COOK, B YESSICA PHARMACY GENERAL MANAGER Unavailable Unavailable COOK, B YESSICA PHARMACY GENERAL MANAGER Unavailable Unavailable COOK, B YESSICA PHARMACY GENERAL MANAGER Unavailable Unavailable COOK, B YESSICA PHARMACY GENERAL MANAGER Unavailable Unavailable COOK, B YESSICA PHARMACY GENERAL MANAGER Unavailable Unavailable COOK, B YESSICA PHARMACY GENERAL MANAGER Unavailable Unavailable COOK, B YESSICA PHARMACY GENERAL MANAGER Unavailable Unavailable COOK, B YESSICA PHARMACY GENERAL MANAGER Unavailable Unavailable COOK, B YESSICA PHARMACY GENERAL MANAGER Unavailable Unavailable COOK, B YESSICA PHARMACY GENERAL MANAGER Unavailable Unavailable COOK, B YESSICA PHARMACY GENERAL MANAGER Unavailable Unavailable COOK, B YESSICA PHARMACY GENERAL MANAGER Unavailable Unavailable COOK, B YESSICA PHARMACY GENERAL MANAGER Unavailable Unavailable COOK, B YESSICA PHARMACY GENERAL MANAGER Unavailable Unavailable Alana , Aicha . Unavailable Alana MD, Aicha . Unavailable Alana MD, Aicha . Unavailable Alana MD, Aicha . Unavailable Alana MD, Aicha . Unavailable Alana MD, Aicha . Unavailable Alana MD, Aicha . Unavailable Alana , Aicha . Unavailable Alana MD, Aicha . Unavailable Alana MD, Aicha . Unavailable Alana MD, Aicha . Unavailable Alana MD, Aicha . Unavailable Alana MD, Aicha . Unavailable Alana MD, Aicha . Unavailable Alana MD, Aicha . Unavailable Alana MD, Aicha . Unavailable Alana MD, Aicha . Unavailable Alana MD, Aicha . Unavailable Alana , Aicha . Unavailable Alana , Aicha . Unavailable Alana , Aicha . Unavailable Alana , Aicha . Unavailable Alana , Aicha . Unavailable Alana , Aicha . Unavailable Alana MARLOW, Aicha . Unavailable Alana MARLOW, Aicha . Unavailable Alana MARLOW, Aicha . Unavailable Alana MARLOW, Aicha . Unavailable Alana MARLOW, Aicha . Unavailable Alana MARLOW, Aicha . Unavailable Kin CAPONE MD Unavailable Unavailable LIBORIO, K DAVID MARLOW Unavailable Unavailable LIBORIO, K DAVID MARLOW Unavailable Unavailable LIBORIO, K DAVID MARLOW Unavailable Unavailable LIBORIO K DAVID MARLOW Unavailable Unavailable LIBORIO K DAVID MARLOW Unavailable Unavailable LIBORIO K DAVID MARLOW Unavailable Unavailable LIBORIOKin MD Unavailable Unavailable LIBORIO K DAVID MARLOW Unavailable Unavailable LIBORIO K DAVID MARLOW Unavailable Unavailable LIBORIO K DAVID MARLOW Unavailable Unavailable LIBORIOKin MD Unavailable Unavailable LIBORIOKin MD Unavailable Unavailable LIBORIOKin MD Unavailable Unavailable LIBORIOKin MD Unavailable Unavailable LIBORIOKin MD Unavailable Unavailable LIBORIOKin MD Unavailable Unavailable LIBORIOKin DIETZ MD Unavailable Unavailable LIBORIOKin MD Unavailable Unavailable LIBORIO K DAVID MARLOW Unavailable Unavailable LIBORIOKin MD Unavailable Unavailable LIBORIOKin MD Unavailable Unavailable LIBORIO K DAVID MARLOW Unavailable Unavailable LIBORIOKin MD Unavailable Unavailable LIBORIOKin MD Unavailable Unavailable LIBORIO K DAVID MARLOW Unavailable Unavailable LIBORIOKin MD Unavailable Unavailable LIBORIOKin MD Unavailable Unavailable LIBORIOKin DIETZ MD Unavailable Unavailable LIBORIOKin MD Unavailable Unavailable LIBORIOKin MD Unavailable Unavailable LIBORIOKin MD Unavailable Unavailable LIBORIO, K DAVID MARLOW Unavailable Unavailable LIBORIO, K DAVID MARLOW Unavailable Unavailable LIBORIO, K DAVID MARLOW Unavailable Unavailable LIBORIO, K DAVID MARLOW Unavailable Unavailable LIBORIO, K DAVID MARLOW Unavailable Unavailable LIBORIO, K DAVID MARLOW Unavailable Unavailable LIBORIO, K DAVID MARLOW Unavailable Unavailable LIBORIO, K DAVID MARLOW Unavailable Unavailable LIBORIO, K DAVID MARLOW Unavailable Unavailable LIBORIO, K DAVID MARLOW Unavailable Unavailable LIBORIO, K DAVID MARLOW Unavailable Unavailable LIBORIO, K DAVID MARLOW Unavailable Unavailable LIBORIO, K DAVID MAROLW Unavailable Unavailable LIBORIO, K DAVID MARLOW Unavailable Unavailable LIBORIO, K DAVID MARLOW Unavailable Unavailable LIBORIO, K DAVID MARLOW Unavailable Unavailable LIBORIO, K DAVID MARLOW Unavailable Unavailable LIBORIO, K DAVID MARLOW Unavailable Unavailable LIBORIO, K DAVID MARLOW Unavailable Unavailable LIBORIO, K DAVID MARLOW Unavailable Unavailable Doremus, E Tahira PA Unavailable Unavailable Doremus, E Tahira PA Unavailable Unavailable Doremus, E Tahira PA Unavailable Unavailable Doremus, E Tahira PA Unavailable Unavailable Doremus, E Tahira PA Unavailable Unavailable Doremus, E Tahira PA Unavailable Unavailable Doremus, E Tahira PA Unavailable Unavailable Doremus, E Tahira PA Unavailable Unavailable Doremus, E Tahira PA Unavailable Unavailable Doremus, E Tahira PA Unavailable Unavailable Doremus, E Tahira PA Unavailable Unavailable Doremus, E Tahira PA Unavailable Unavailable Doremus, E Tahira PA Unavailable Unavailable Doremus, E Tahira PA Unavailable Unavailable Doremus, E Tahira PA Unavailable Unavailable Doremus, E Tahira PA Unavailable Unavailable Doremus, E Tahira PA Unavailable Unavailable Doremus, E Tahira PA Unavailable Unavailable Doremus, E Tahira PA Unavailable Unavailable Sena Bar MD Unavailable Unavailable Sena Bar MD Unavailable Unavailable Sena Bar MD Unavailable Unavailable Sena Bar MD Unavailable Unavailable Persaud-LaiSena dial MD Unavailable Unavailable Persaud-Lai, Sena MD Unavailable Unavailable Persaud-Lai, Sena MD Unavailable Unavailable Persaud-Lai, Sena MD Unavailable Unavailable Persaud-Lai, Sena MD Unavailable Unavailable Persaud-Lai, Sena MD Unavailable Unavailable Persaud-Lai, Sena MD Unavailable Unavailable Persaud-Lai, Sena MD Unavailable Unavailable Persaud-Lai, Sena MD Unavailable Unavailable Persaud-Lai, Sena MD Unavailable Unavailable Persaud-Lai, Sena MD Unavailable Unavailable Persaud-Lai, Sena MD Unavailable Unavailable Persaud-Lai, Sena MD Unavailable Unavailable Persaud-Lai, Sena MD Unavailable Unavailable Persaud-Lai, Sena MD Unavailable Unavailable Mandie WINTERSIANNE Unavailable Unavailable Eliu Augustin DO Unavailable Unavailable Eliu Augustin DO Unavailable Unavailable Suzie BIRD MD Unavailable Unavailable Suzie BIRD MD Unavailable Unavailable Suzie BIRD MD Unavailable Unavailable Suzie BIRD MD Unavailable Unavailable Suzie BIRD MD Unavailable Unavailable Suzie BIRD MD Unavailable Unavailable Suzie BIRD MD Unavailable Unavailable Suzie BIRD MD Unavailable Unavailable Suzie BIRD MD Unavailable Unavailable Suzie BIRD MD Unavailable Unavailable Suzie BIRD MD Unavailable Unavailable Suzie BIRD MD Unavailable Unavailable Suzie BIRD MD Unavailable Unavailable Suzie BIRD MD Unavailable Unavailable Suzie BIRD MD Unavailable Unavailable Suzie BIRD MD Unavailable Unavailable Suzie BIRD MD Unavailable Unavailable Suzie BIRD MD Unavailable Unavailable Suzie BIRD MD Unavailable Unavailable Suzie BIRD MD Unavailable Unavailable Suzie BIRD MD Unavailable Unavailable Suzie BIRD MD Unavailable Unavailable Suzie BIRD MD Unavailable Unavailable Suzie BIRD MD Unavailable Unavailable Suzie BIRD MD Unavailable Unavailable Suzie BIRD MD Unavailable Unavailable Suzie BIRD MD Unavailable Unavailable Suzie BIRD MD Unavailable Unavailable Suzie BIRD MD Unavailable Unavailable Suzie BRID MD Unavailable Unavailable Suzie BIRD MD Unavailable Unavailable Suzie BIRD MD Unavailable Unavailable Suzie BIRD MD Unavailable Unavailable Suzie BIRD MD Unavailable Unavailable Suzie BIRD MD Unavailable Unavailable Suzie BIRD MD Unavailable Unavailable Suzie BIRD MD Unavailable Unavailable Suzie BIRD MD Unavailable Unavailable Suzie BIRD MD Unavailable Unavailable Suzie BIRD MD Unavailable Unavailable Suzie BIRD MD Unavailable Unavailable MARGE, H UMANG MD Unavailable Unavailable MARGE, H UMANG MD Unavailable Unavailable MARGE, H UMANG MD Unavailable Unavailable MARGE, H UMANG MD Unavailable Unavailable MARGE, H UMANG MD Unavailable Unavailable MARGE, H UMANG MD Unavailable Unavailable MARGE, H UMANG MD Unavailable Unavailable MARGE, H UMANG MD Unavailable Unavailable MARGE, H UMANG MD Unavailable Unavailable MARGE, H UMANG MD Unavailable Unavailable MARGE, H UMANG MD Unavailable Unavailable MARGE, H UMANG MD Unavailable Unavailable MARGE, H UMANG MD Unavailable Unavailable MARGE, H UMANG MD Unavailable Unavailable MARGE, H UMANG MD Unavailable Unavailable MARGE, H UMANG MD Unavailable Unavailable MARGE, H UMANG MD Unavailable Unavailable MARGE, H UMANG MD Unavailable Unavailable MARGE, H UMANG MD Unavailable Unavailable MARGE, H UMANG MD Unavailable Unavailable MARGE, H UMANG MD Unavailable Unavailable MARGE, H UMANG MD Unavailable Unavailable MARGE, H UMANG MD Unavailable Unavailable MARGE, H UMANG MD Unavailable Unavailable MARGE, H UMANG MD Unavailable Unavailable MARGE, H UMANG MD Unavailable Unavailable MARGE, H UMANG MD Unavailable Unavailable MARGE, H UMANG MD Unavailable Unavailable MARGE H UMANG MD Unavailable Unavailable MARGE, H UMANG MD Unavailable Unavailable MARGE, H UMANG MD Unavailable Unavailable MARGE, H UMANG MD Unavailable Unavailable MARGE, H UMANG MD Unavailable Unavailable MARGE, H UMANG MD Unavailable Unavailable MARGE H UMANG MD Unavailable Unavailable DoriSimone MD Unavailable Unavailable Dori Masyves MARLOW Unavailable Unavailable Dori Masyves MD Unavailable Unavailable Dori Masyves MARLOW Unavailable Unavailable DoriSimone MD Unavailable Unavailable DoriSimone MD Unavailable Unavailable DoriSimone MD Unavailable Unavailable DoriSimone MD Unavailable Unavailable Dori Masyves MARLOW Unavailable Unavailable Dori Masyves MARLOW Unavailable Unavailable Dori Masyves MARLOW Unavailable Unavailable DoriSimone MD Unavailable Unavailable DoriSimone MD Unavailable Unavailable DoriSimone MD Unavailable Unavailable Dori Masyves MARLOW Unavailable Unavailable Dori Masyves MARLOW Unavailable Unavailable Dori Masyves MD Unavailable Unavailable Dori Mashasundeep MD Unavailable Unavailable Dori Masyves MD Unavailable Unavailable Dori Masyves MARLOW Unavailable Unavailable Dori Masyves MARLOW Unavailable Unavailable Dori Masyves MARLOW Unavailable Unavailable Dori Masyves MARLOW Unavailable Unavailable Dori Masyves MARLOW Unavailable Unavailable Dori Mashasundeep MD Unavailable Unavailable Dori Mashasundeep MARLOW Unavailable Unavailable Dori Masyves MARLOW Unavailable Unavailable Dori Mashasundeep MARLOW Unavailable Unavailable Dori Simone MARLOW Unavailable Unavailable Dori, Simone MARLOW Unavailable Unavailable Dori, Simone MARLOW Unavailable Unavailable Dori, Simone MARLOW Unavailable Unavailable Dori, Simone MARLOW Unavailable Unavailable Dori, Masyves MARLOW Unavailable Unavailable Dori, Masyves MARLOW Unavailable Unavailable Dori, Masyves MARLOW Unavailable Unavailable Dori, Mashasundeep MARLOW Unavailable Unavailable Dori, Mashasundeep MD Unavailable Unavailable Dori, Mashasundeep MD Unavailable Unavailable Dori, Masyves MD Unavailable Unavailable Dori, Masyves MD Unavailable Unavailable Dori, Masyves MD Unavailable Unavailable Dori, Masyves MD Unavailable Unavailable Dori, Mashasundeep MD Unavailable Unavailable Dori, Mashasundeep MD Unavailable Unavailable Dori, Mashasundeep MD Unavailable Unavailable Dori, Mashasundeep MD Unavailable Unavailable Dori, Masyves MD Unavailable Unavailable Dori, Masyves MD Unavailable Unavailable Dori, Masyves MD Unavailable Unavailable Dori, Masyevs MARLOW Unavailable Unavailable Dori, Masyves MARLOW Unavailable Unavailable Dori, Simone MARLOW Unavailable Unavailable Dori, Simone MARLOW Unavailable Unavailable Dori, Simone MARLOW Unavailable Unavailable Fish, Chung Hawk MD Unavailable Unavailable Fish, Chung Hawk MD Unavailable Unavailable FishChung MD Unavailable Unavailable FishChung MD Unavailable Unavailable FishChung MD Unavailable Unavailable FishChung MD Unavailable Unavailable FishChung MD Unavailable Unavailable FishChung MD Unavailable Unavailable Chung Del Toro MD Unavailable Unavailable Chung Del Toro MD Unavailable Unavailable Chung Del Toro MD Unavailable Unavailable Chung Del Toro MD Unavailable Unavailable Chung Del Toro MD Unavailable Unavailable Chung Del Toro MD Unavailable Unavailable FishChung MD Unavailable Unavailable FishChung MD Unavailable Unavailable FishChung MD Unavailable Unavailable FishChung MD Unavailable Unavailable Chung Del Toro MD Unavailable Unavailable FishChung MD Unavailable Unavailable FishChung MD Unavailable Unavailable Chung Del Toro MD Unavailable Unavailable Chung Del Toro MD Unavailable Unavailable Chung Del Toro MD Unavailable Unavailable Chung Del Toro MD Unavailable Unavailable Chung Del Toro MD Unavailable Unavailable Chung Del Toro MD Unavailable Unavailable Chung Del Toro MD Unavailable Unavailable Chung Del Toro MD Unavailable Unavailable Chung Del Toro MD Unavailable Unavailable FishChung MD Unavailable Unavailable FishChung MD Unavailable Unavailable FishChung MD Unavailable Unavailable FishChung MD Unavailable Unavailable Chung Del Toro MD Unavailable Unavailable FishChung MD Unavailable Unavailable FishChung MD Unavailable Unavailable FishChung MD Unavailable Unavailable FishChung MD Unavailable Unavailable FishChung MD Unavailable Unavailable FishChung MD Unavailable Unavailable FishChung MD Unavailable Unavailable FishChung MD Unavailable Unavailable Fish, Chung Hawk MD Unavailable Unavailable FishChung MD Unavailable Unavailable Fish, Chung Hawk MD Unavailable Unavailable Fish, Chung Hawk MD Unavailable Unavailable Fish, Chung Hawk MD Unavailable Unavailable Fish, Chung Hawk MD Unavailable Unavailable FishChung MD Unavailable Unavailable Fish, Chung Hawk MD Unavailable Unavailable Fish, B Carine MARLOW Unavailable Unavailable Fish, B Carine MARLOW Unavailable Unavailable Fish, B Carine MARLOW Unavailable Unavailable Fish, B Carine MARLOW Unavailable Unavailable Fish, Chung Hawk MD Unavailable Unavailable Fish, B Carine MARLOW Unavailable Unavailable Fish, Chung Hawk MD Unavailable Unavailable Fish, Chung Hawk MD Unavailable Unavailable Fish, B Carine MARLOW Unavailable Unavailable Fish, B Carine MARLOW Unavailable Unavailable Fish B Carine MARLOW Unavailable Unavailable Fish B Carine MARLOW Unavailable Unavailable FishChung MD Unavailable Unavailable Sophia MCNEAL MD Unavailable Unavailable Sophia MCNEAL MD Unavailable Unavailable Sophia MCNEAL MD Unavailable Unavailable Sophia MCNEAL MD Unavailable Unavailable Sophia MCNEAL MD Unavailable Unavailable Sophia MCNEAL MD Unavailable Unavailable Sophia MCNEAL MD Unavailable Unavailable Sophia MCNEAL MD Unavailable Unavailable FREDISSophia PINEDA MD Unavailable Unavailable Sophia MCNEAL MD Unavailable Unavailable Sophia MCNEAL MD Unavailable Unavailable Sophia MCNEAL MD Unavailable Unavailable Sophia MCNEAL MD Unavailable Unavailable FREDISSophia PINEDA MD Unavailable Unavailable FREDISSophia PINEDA MD Unavailable Unavailable FREDISSophia PINEDA MD Unavailable Unavailable FREDISSophia PINEDA MD Unavailable Unavailable FREDISSophia PINEDA MD Unavailable Unavailable FREDISSophia PINEDA MD Unavailable Unavailable FREDISSophia PINEDA MD Unavailable Unavailable FREDISSophia PINEDA MD Unavailable Unavailable FREDISSophia PINEDA MD Unavailable Unavailable FREDISSophia PINEDA MD Unavailable Unavailable FREDISSophia PINEDA MD Unavailable Unavailable FREDIS, O ASAEL MARLOW Unavailable Unavailable FREDISSophia PINEDA MD Unavailable Unavailable FREDISSophia PINEDA MD Unavailable Unavailable FREDISSophia PINEDA MD Unavailable Unavailable Sophia MCNEAL MD Unavailable Unavailable Sophia MCNEAL MD Unavailable Unavailable FREDISSophia PINEDA MD Unavailable Unavailable FREDIS, Sophia VYAS MD Unavailable Unavailable FREDIS, Sophia VYAS MD Unavailable Unavailable FREDIS, Sophia VYSA MD Unavailable Unavailable FREDIS, Sophia VYAS MD Unavailable Unavailable FREDIS, Sophia VYAS MD Unavailable Unavailable FREDIS, Sophia VYAS MD Unavailable Unavailable FREDIS, Sophia VYAS MD Unavailable Unavailable FREDIS, Sophia VYAS MD Unavailable Unavailable FREDIS, Sophia VYAS MD Unavailable Unavailable FREDIS, Sophia VYAS MD Unavailable Unavailable Adam, A Blaire PHARMACY GENERAL MANAGER Unavailable Unavailable Adam, A Blaire PHARMACY GENERAL MANAGER Unavailable Unavailable Adam, A Blaire PHARMACY GENERAL MANAGER Unavailable Unavailable Adam, A Blaire PHARMACY GENERAL MANAGER Unavailable Unavailable [place], [facility] MANAGER Unavailable Unavailable [place], [facility] GENERAL MANAGER Unavailable Unavailable [place], [facility] GENERAL MANAGER Unavailable Unavailable [place], [facility] GENERAL MANAGER Unavailable Unavailable [place], [facility] GENERAL MANAGER Unavailable Unavailable Adam, A [facility] GENERAL MANAGER Unavailable Unavailable [place], [facility] GENERAL MANAGER Unavailable Unavailable Adam, A [facility] GENERAL MANAGER Unavailable Unavailable [place], A [facility] GENERAL MANAGER Unavailable Unavailable [place], [facility] GENERAL MANAGER Unavailable Unavailable [place], [facility] GENERAL MANAGER Unavailable Unavailable Adam, A [facility] GENERAL MANAGER Unavailable Unavailable Adam, A [facility] GENERAL MANAGER Unavailable Unavailable Adam, A [facility] GENERAL MANAGER Unavailable Unavailable [place], A [facility] GENERAL MANAGER Unavailable Unavailable [place], A [facility] GENERAL MANAGER Unavailable Unavailable [place], A [facility] GENERAL MANAGER Unavailable Unavailable Adam, A [facility] GENERAL MANAGER Unavailable Unavailable [place], A [facility] GENERAL MANAGER Unavailable Unavailable Adam, A [facility] GENERAL MANAGER Unavailable Unavailable Adam, A [facility] GENERAL MANAGER Unavailable Unavailable Adam, A [facility] GENERAL MANAGER Unavailable Unavailable Adam, A [facility] GENERAL MANAGER Unavailable Unavailable [place], A [facility] GENERAL MANAGER Unavailable Unavailable Adam, A [facility] GENERAL MANAGER Unavailable Unavailable Adam, A [facility] GENERAL MANAGER Unavailable Unavailable Adam, A [facility] GENERAL MANAGER Unavailable Unavailable [place], A [facility] GENERAL MANAGER Unavailable Unavailable [place], A [facility] GENERAL MANAGER Unavailable Unavailable [place], A [facility] GENERAL MANAGER Unavailable Unavailable [place], A [facility] GENERAL MANAGER Unavailable Unavailable Adam, A [facility] GENERAL MANAGER Unavailable Unavailable MANOCHA, LITO MARLOW Unavailable Unavailable MANOCHA, LITO MARLOW Unavailable Unavailable MANOCHALITO MD Unavailable Unavailable MANOCHA, LITO MARLOW Unavailable Unavailable LITO NUNEZ MD Unavailable Unavailable BRIANALITO MD Unavailable Unavailable BRIANALITO MD Unavailable Unavailable MANZAINABALITO MD Unavailable Unavailable MANZAINABALITO MD Unavailable Unavailable MANLITO ONOFRE MD Unavailable Unavailable LITO NUNEZ MD Unavailable Unavailable LITO NUNEZ MD Unavailable Unavailable LITO NUNEZ MD Unavailable Unavailable LITO NUNEZ MD Unavailable Unavailable LITO NUNEZ MD Unavailable Unavailable BRIANALITO MD Unavailable Unavailable LITO NUNEZ MD Unavailable Unavailable LITO NUNEZ MD Unavailable Unavailable LITO NUNEZ MD Unavailable Unavailable BRIANALITO MD Unavailable Unavailable BRIANALITO MD Unavailable Unavailable BRIANALITO MD Unavailable Unavailable LITO NUNEZ MD Unavailable Unavailable LITO NUNEZ MD Unavailable Unavailable LITO NUNEZ MD Unavailable Unavailable LITO NUNEZ MD Unavailable Unavailable LITO NUNEZ MD Unavailable Unavailable LITO NUNEZ MD Unavailable Unavailable LITO NUNEZ MD Unavailable Unavailable LITO NUNEZ MD Unavailable Unavailable LITO NUNEZ MD Unavailable Unavailable Chung Smart MD Unavailable Unavailable Chung Smart MD Unavailable Unavailable Chung Smart MD Unavailable Unavailable Chung Smart MD Unavailable Unavailable Chung Smart MD Unavailable Unavailable Chung Smart MD Unavailable Unavailable Chung Smart MD Unavailable Unavailable Chung Smart MD Unavailable Unavailable Chung Smart MD Unavailable Unavailable Chung Smart MD Unavailable Unavailable Chung Smart MD Unavailable Unavailable Chung Smart MD Unavailable Unavailable Chung Smart MD Unavailable Unavailable Chung Smart MD Unavailable Unavailable Chung Smart MD Unavailable Unavailable Chung Smart MD Unavailable Unavailable Chung Smart MD Unavailable Unavailable Chung Smart MD Unavailable Unavailable Chung Smart MD Unavailable Unavailable Chung Smart MD Unavailable Unavailable Chung Smart MD Unavailable Unavailable Chung Smart MD Unavailable Unavailable Chung Smart MD Unavailable Unavailable Chung Smart MD Unavailable Unavailable Chung Smart MD Unavailable Unavailable Lara, B Leif MARLOW Unavailable Unavailable Watchung, B Leif MARLOW Unavailable Unavailable Lara, B Leif MARLOW Unavailable Unavailable Watchung, B Leif MARLOW Unavailable Unavailable Watchung, B Leif MARLOW Unavailable Unavailable Lara, B Leif MARLOW Unavailable Unavailable Lara, B Leif MARLOW Unavailable Unavailable Watchung, B Leif MARLOW Unavailable Unavailable Watchung, B Leif MARLOW Unavailable Unavailable Watchung, B Leif MARLOW Unavailable Unavailable Lara, B Leif MARLOW Unavailable Unavailable Watchung, B Leif MARLOW Unavailable Unavailable Watchung, B Leif MARLOW Unavailable Unavailable Lara, B Leif MARLOW Unavailable Unavailable Watchung, B Leif MARLOW Unavailable Unavailable Watchung, B Leif MARLOW Unavailable Unavailable Lara, B Leif MARLOW Unavailable Unavailable Fior GAMA Unavailable Unavailable DINERO, EFREN PHARMAC[facility] GENERAL MANAGER Unavailable Unavailable DINERO, EFREN [facility] GENERAL MANAGER Unavailable Unavailable DINERO, E[facility]EN [facility] GENERAL MANAGER Unavailable Unavailable Re-disclosure Warning The records that you are about to access may contain information from federally-assisted alcohol or drug abuse programs. If such information is present, then the following federally mandated warning applies: This information has been disclosed to you from records protected by federal confidentiality rules (42 CFR part 2). The federal rules prohibit you from making any further disclosure of this information unless further disclosure is expressly permitted by the written consent of the person to whom it pertains or as otherwise permitted by 42 CFR part 2. A general authorization for the release of medical or other information is NOT sufficient for this purpose. The Federal rules restrict any use of the information to criminally investigate or prosecute any alcohol or drug abuse patient.The records that you are about to access may contain highly sensitive health information, the redisclosure of which is protected by Article 27-F of the [facility] Public Health law. If you continue you may have access to information: Regarding HIV / AIDS; Provided by facilities licensed or operated by the [facility] Office of Mental Health; or Provided by the [facility] Office for People With Developmental Disabilities. If such information is present, then the following [facility] mandated warning applies: This information has been disclosed to you from confidential records which are protected by state law. State law prohibits you from making any further disclosure of this information without the specific written consent of the person to whom it pertains, or as otherwise permitted by law. Any unauthorized further disclosure in violation of state law may result in a fine or halfway sentence or both. A general authorization for the release of medical or other information is NOT sufficient authorization for further disc losure. Allergies and Adverse Reactions Type Description Substance Reaction Status Data Source(s ) Drug Class NO KNOWN ALLERGIES NO KNOWN ALLERGIES [facility] Family History Family Member Name Family Member Gender Family Member Status Date o f Status Description Data Source(s) Unknown Female Problem [facility] ([facility]) Unknown Female Problem [facility] ([facility]) Encounters Encounter Providers Location Date Indications Data Source(s ) Outpatient 08/29/2020 12:00:00 AM [facility] Outpatient 08/29/2020 12:00:00 AM [facility] Outpatient 08/15/2020 12:00:00 AM [facility] Outpatient 08/15/2020 12:00:00 AM [facility] Outpatient 08/08/2020 12:00:00 AM [facility] Outpatient 08/08/2020 12:00:00 AM [facility] Outpatient 07/25/2020 12:00:[address] [facility] Outpatient 07/25/2020 12:00:[address] [facility] Outpatient 07/18/2020 12:00:[address] [facility] Outpatient 07/18/2020 12:00:[address] [facility] Outpatient 07/04/2020 12:00:[address] [facility] Outpatient 07/04/2020 12:00:[address] [facility] Outpatient Attender: Aicha Warner MDReferrer: Pj Cortes 07/01/2020 12:00:[address] [facility] Outpatient 06/27/2020 12:00:[address] [facility] Outpatient Attender: ADELA CHANG 06/20/2020 12:00:[address] [facility] Outpatient Attender: DANIEL BRADENIRAReferrer: Pj Augustin DO 06/18/2020 12:00:[address] [facility] Outpatient 06/14/2020 12:00:[address] [facility] Outpatient Referrer: Pj Augustin DO 06/13/2020 12:00:[address] [facility] Outpatient Referrer: Pj Augustin DO 06/10/2020 12:00:[address] [facility] Outpatient Attender: BETTYTANIKA LIZARRAGA ttender: DEFAULT / GENERIC / UNKNOWN PROVIDER ALIASES 06/06/2020 12:00:00 AM EST Cyndi gnant neoplasm of liver, not specified as primary or secondary [facility] Malignant neoplasm of liver, not specifi ed as primary or secondary Outpatient Attender: LITO NUNEZ MDReferrer: UMANG DOMÍNGUEZ MD [id number] 06/03/2020 12:00:00 AM EST - 06/03/2020 12:56:[address] [facility] Outpatient Attender: Aicha Warner MD [id number] 2020 12:00:00 AM [facility] - 05/30/2020 12:31:08 PM EST Malignant neoplasm of liver, not specifi ed as primary or secondary [facility] Malignant neoplasm of liver, not specifi ed as primary or secondary Outpatient Attender: Blaire Medina NP [id number] 05/29/2020 12 :36:[address] [facility] Outpatient Attender: UMANG BIRD MD [facility] 10:30:00 AM EST [facility] ([facility] Outpatient Attender: Simone Meadows MDReferrer: Simone Meadows MD 05/15/2020 12:00:[address] [facility] Outpatient Attender: Simone Meadows MDReferrer: Simone Meadows MD 05/12/2020 12:00:[address] [facility] Inpatient Attender: DEFAULT / GENE CATIE / UNKNOWN PROVIDER ALIASES Attender: Simone Meadows MDAttender: Leif Smart MDAttender: Sena Bar MDAdmitter: Leif Smart MDReferrer: EFREN DINERO NPConsultant: DAVID CAPONE MDConsultant: Leif Smart MD [id number] 05/10/2020 12:00:00 AM EST - 05/17/2020 06:31:00 PM EST Abscess of liver [facility] Abscess of liver Patient discharged. Outpatient Attender: YESSICA HORN NP Physical Therapy 05/05/2020 0 1:45:00 PM EST [facility] ([facility]) Outpatient Attender: UMANG [facility] 10:30:00 AM EST [facility] ([facility] Outpatient Attender: UMANG [facility] 12/2019 12:15:00 PM EST [facility] ([facility] Outpatient Attender: UMANG [facility] 01:45:00 PM EST [facility] ([facility] Outpatient Attender: UMANG [facility] 02:30:00 PM EDT [facility] ([facility] Outpatient Attender: ASAEL Gaston/Alessandra/Wesly/Olga randolph 03/12/2020 09:30:00 AM EDT [facility] ([facility] Outpatient Attender: Carine Del Toro MD Physical Therapy 03/05 02:15:00 PM EDT [facility] ([facility]) Outpatient Attender: UMANG [place] 11/2019 10:40:00 AM EDT [facility] ([facility] Outpatient Attender: UMANG [place] 01/2020 01:15:00 PM EDT [facility] ([facility] Outpatient Attender: Carine Del Toro MD Physical Therapy 12/20 03:00:00 PM EDT [facility] ([facility] Outpatient Attender: Carine Del Toro MD Physical Therapy 11/19 09:45:00 AM EDT [facility] ([facility]) Outpatient Attender: UMANG [place] 01/2020 01:00:00 PM EDT [facility] ([facility] Outpatient Attender: Carine Del Toro MD Physical Therapy 10/25 12:15:00 PM EDT [facility] ([facility]) Outpatient Referrer: ALLISON ADAM 08/29/2019 03:12:00 PM EDT [facility] Office Visit Attender: Carine Del Toro MD Physical Therapy 08/22 04:00:00 PM EDT [facility] ([facility]) Outpatient Attender: Carine Del Toro MD Physical Therapy 07/17 08:15:00 AM EST [facility] ([facility]) Outpatient Referrer: ALLISON ADAM 07/16/2019 10:03:00 AM EST [facility] Outpatient Attender: UMANG BIRD MD [place] [facility] 08/2019 12:15:00 PM EST [facility] ([facility] Outpatient Attender: Carine eDl Toro MD Physical Therapy 06/19 10:45:00 AM EST [facility] ([facility]) Outpatient Attender: Tahira ADAM Physical Therapy 02:00:00 PM EST [facility] ([facility]) Outpatient Attender: UMANG BIRD MD [place] [facility] 07/2019 09:40:00 AM EST [facility] ([facility] Immunizations Vaccine Date Status Description Data Source(s) New in 2012. IIV4 01/30/2020 03:49:00 PM EDT completed [facility] ([facility] Medications Medication Brand Name Start Date Product Form Dose Route Admi nistrative Instructions Pharmacy Instructions Status Indications Reaction Description Data Source(s) 17 gram/dose 06/04/2020 12:00:00 AM EST powder 238 TAKE ONE CAPFUL BY MOUTH AT BEDTIME STARTING 1 WEEK PRIOR TO COLONOSCOPY TAKE ONE CAPFUL BY MOUTH AT BEDTIME STARTING 1 WEEK PRIOR TO COLONOSCOPY SOLD: 06/12/2020 [facility] POLYETHYLENE GLYCOL 3350 59 MG/ML / Pota ssium Chloride 0.01 MEQ/ML / Sodium Bicarbonate 0.02 MEQ/ML / Sodium Chloride 0.025 MEQ/ML / sodium sulfate 0.04 MEQ/ML Oral Solution PEG [id number]-BiMvv-NaCl-NaSulf 236 GM Oral Solution Reconstituted (GoLYTELY,NuLYTELY) PEG 4515-WDs-TbFio-NaCl-NaSulf 236 GM Or al Solution Reconstituted (GoLYTELY,NuLYTELY) 06/03/2020 12:00:00 AM EST 4000 mL Oral active Imaging abnormality Take 4,000 mLs by mouth once for 1 dose [facility] Imaging abnormality POLYETHYLENE GLYCOL 3350 142 MG/ML Oral Solution Polyethylene Glycol 3350 17 GM/SCOOP Oral Powder Polyethylene Glycol 3350 17 GM/SCOOP Oral Powder 06/03 12:00:00 AM EST 17 g Oral active Imaging abnormal ity Take 17 g by mouth nightly for 7 daysTake 1 capful at bedtime starting 1 week prior to colonoscopy. [facility] Imaging abnormality Bisacodyl 5 MG Delayed Release Oral Tabl et Bisacodyl 5 MG Oral Tablet Delayed Release (DULCOLAX) Bisacodyl 5 MG Oral Tablet Delayed Release (DULCOLAX) 06/03/2020 12:00:00 AM EST active Imagi ng abnormality Take 4 tablets one day prior to colonoscopy. [facility] Imaging abnormality 15 mg 06/02/2020 12:00:00 AM EST tablet 28 TAKE ONE TABLET BY MOUTH EVERY 6 HOURS NEEDED FOR PAIN FOR UP TO 7 DAYS, MAXIMUM DAILY DOSE = 4 TABLETS TAKE ONE TABLET BY MOUTH EVERY 6 HOURS NEEDED FOR PAIN FOR UP TO 7 DAYS, MAXIMUM DAILY DOSE = 4 TABLETS SOLD: 06/03/2020 [facility] Morphine Sulfate 15 MG Oral Tablet Morphine Sulfate 15 MG Oral Tablet (MSIR) Morphine Sulfate 15 MG Oral Tablet (MSIR) 06/02/2020 12:00:00 AM EST 15 mg Oral active Cholangiocarcinoma Take 1 tablet by mouth every 6 (six) hours as needed for Pain for up to 7 days, Max Daily Dose: 60 mg [facility] Cholangiocarcinoma Oxycodone Hydrochloride 5 MG Oral Capsul e oxyCODONE HCl 5 MG Oral Capsule (OXY-IR) oxyCODONE HCl 5 MG Oral Capsule (OXY-IR) 06/02/2020 12:00:00 AM EST 5 mg Oral aborted Take 1 cap tin by mouth every 6 (six) hours as needed for Pain for up to 7 days, Max Daily Dose: 20 mg [facility] Docusate Sodium 10 MG/ML Oral Suspension Docusate Sodium 50 MG/5ML Oral Liquid (COLACE) Docusate Sodium 50 MG/5ML Oral Liquid (COLACE) 021 12:00:00 AM EST 100 mg Oral active Cholangiocarcinoma Take 10 mLs by mouth Two Times Daily for 10 days [facility] Cholangiocarcinoma 90 mcg/actuation 06/02/2020 12:00:00 AM EST HFA aerosol inha ler 8 INHALE 2 PUFFS BY MOUTH EVERY 4-6 HOURS NEEDED FOR WHEEZING INHALE 2 PUFFS BY MOUTH EVERY 4-6 HOURS NEEDED FOR WHEEZING SOLD: 06/03/2020 [facility] 50 mg/5 mL 06/02/2020 12:00:00 AM EST liquid 100 TAKE 10ML BY MOUTH TWO TIMES A DAY FOR 10 DAYS TAKE 10ML BY MOUTH TWO TIMES A DAY FOR 10 DAYS SOLD: 06/03/2020 [facility] 500 mg 06/02/2020 12:00:00 AM EST tablet 14 TAKE ONE TABLET BY MOUTH TWICE A DAY TAKE ONE TABLET BY MOUTH TWICE A DAY SOLD: 06/03/2020 [facility] benzonatate 100 MG Oral Capsule BENZONATATE 06/02/2020 12:00:00 AM EST capsule 21 TAKE ONE CAPSULE BY MOUTH THREE TIMES A DAY FOR COUGH TAKE ONE CAPSULE BY MOUTH THREE TIMES A DAY FOR COUGH SOLD: 06/03/2020 [facility] Ondansetron 8 MG Oral Tablet Ondansetron HCl 8 MG Oral Tablet (ZOFRAN) Ondansetron HCl 8 MG Oral Tablet (ZOFRAN) 05/30/2020 12:00:00 AM EST 8 mg Oral active Adenocarcinoma determined by biopsy of liver Take 1 tablet by mouth every 8 (eight) hours as needed for Nausea or Vomiting [facility] Adenocarcinoma determined by biopsy of l iver Prochlorperazine 10 MG Oral Tablet Proch lorperazine Maleate 10 MG Oral Tablet (COMPAZINE) Prochlorperazine Maleate 10 MG Oral Tablet (COMPAZINE) 05/30/2020 12:00:00 AM EST 10 mg Oral active 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 Take 1 tablet by mouth every 6 (six) carolynn rs as needed (Nausea/Vomiting) [facility] Adenocarcinoma determined by biopsy of l iver 10 mg 05/30/2020 12:00:00 AM EST tablet 30 TAKE ONE TABLET BY MOUTH EVERY 6 HOURS NEEDED FOR FOR NAUSEA AND VOMITING TAKE ONE TABLET BY MOUTH EVERY 6 HOURS NEEDED FOR FOR NAUSEA AND VOMITING SOLD: 05/30/2020 [facility] 8 mg 05/30/2020 12:00:00 AM EST tablet 18 TAKE ONE TABLET BY MOUTH EVERY 8 HOURS NEEDED FOR NAUSEA AND VOMITING TAKE ONE TABLET BY MOUTH EVERY 8 HOURS NEEDED FOR NAUSEA AND VOMITING SOLD: 05/30/2020 [facility] 5 % 05/23/2020 12:00:00 AM EST adhesive patch,medicate d 30 PL[address] 2 PATCHES ONTO THE SKIN DAILY 12 HOURS ON [address] 2 PATCHES ONTO THE SKIN DAILY 12 HOURS ON 12 HOURS OFF SOLD: 05/24/2020 [facility] 25 mcg/hr 05/22/2020 12:00:00 AM EST patch 72 hour 10 APPLY 1 PATCH TOPICALLY EVERY 3 DAYS , MAXIMUM DAILY DOSE = 1 PATCH EVERY 3 DAYS APPLY 1 PATCH TOPICALLY EVERY 3 DAYS , MAXIMUM DAILY DOSE = 1 PATCH EVERY 3 DAYS SOLD: 05/24/2020 [facility] 72 HR Fentanyl 0.025 MG/HR Transdermal P atch fentaNYL 25 MCG/HR Transdermal Patch 72 Hour (DURAGESIC) fentaNYL 25 MCG/HR Transdermal Patch 72 Hour (DURAGESIC) 05/22/2020 12:00:00 AM EST active Cholangiocarcinoma APPLY 1 PATCH TOPICALLY EVERY 3 DAYS MAXIMUM DAILY DOSE 1 PATCH EVERY 3 DAYS [facility] Cholangiocarcinoma 5-325 mg 05/19/2020 12:00:00 AM EST tablet 15 TAKE ONE TABLET BY MOUTH EVERY 8 HOURS NEEDED FOR BACK PAIN, MAXIMUM DAILY DOSE = THREE TABLETS TAKE ONE TABLET BY MOUTH EVERY 8 HOURS NEEDED FOR BACK PAIN, MAXIMUM DAILY DOSE = THREE TABLETS SOLD: 05/19/2020 [facility] 72 HR Fentanyl 0.025 MG/HR Transdermal Patch Fentanyl 05/19/2020 12:00:00 AM EST active [facility] ([facility] 12 HR Oxycodone Hydrochloride 20 MG Extended Release O ral Tablet [Oxycontin] Oxycontin 05/19/2020 12:00:00 AM EST ORAL completed [facility] ([facility] Acetaminophen 325 MG / Oxycodone Hydrochloride 5 MG Or al Tablet [Percocet] Percocet 05/19/2020 12:00:00 AM EST ORAL active [facility] ([facility] POLYETHYLENE GLYCOL 3350 142 MG/ML Oral Solution Polyethylene Glycol 3350 17 GM Oral Packet (MIRALAX) Polyethylene Glycol 3350 17 GM Oral Packet (MIRALAX) 05/18/2020 12:00:00 AM EST 17 g Oral active Take 1 packet by mouth daily for 3 daysPlease substitute bottle for packets, if packets are unavailable. [facility] Lidocaine 5 % External Patch (LIDODERM) 1589-1494-14 05/18/20 20 12:00:00 AM EST 2 {patch} Transdermal active Place 2 pa tches onto the skin daily 12 hours on 12 hours off [facility] gadobutrol (GADAVIST) contrast injection 6 mL [id number] 04:15:00 AM EST 0.1 mL/kg Intravenous completed 6 mL (ro unded from 6.18 mL = 0.1 mL/kg 61.8 kg), Intravenous, 1 TIME IMAGING, 05/17/20 at 0415, For 1 dose
Do not mix or administer in the same IV line with other medications.
[facility] Medication administered onsite Docusate Sodium 10 MG/ML Oral Suspension Docusate Sodium 50 MG/5ML Oral Liquid (COLACE) Docusate Sodium 50 MG/5ML Oral Liquid (COLACE) 020 12:00:00 AM EST 100 mg Oral aborted Take 10 mLs by mouth Two Times Daily for 10 days [facility] 12 HR Guaifenesin 600 MG Extended Releas e Oral Tablet guaiFENesin ER 600 MG Oral Tablet Extended Release 12 Hour (MUCINEX) guaiFENesin ER 600 MG Oral Tablet Extended Release 12 Hour (MUCINEX) 05/17/2020 12:00:00 AM EST 600 mg Oral aborted Take 1 tablet by mouth Two Times Daily [facility] Acetaminophen 325 MG Oral Tablet Acetaminophen 325 MG Oral T ablet 05/17/2020 12:00:00 AM EST 975 mg Oral aborted Take 3 tablets by mouth every 8 (eight) hours [facility] alginic acid 200 MG / Calcium Carbonate 80 MG / magnesium trisilicate 20 MG / Sodium Bicarbonate 70 MG Oral Tablet Calcium Carbonate Antacid 500 MG Oral Tablet Chewable (TUMS) Calcium Carbonate Antacid 500 MG Oral Ta blet Chewable (TUMS) 05/17/2020 12:00:00 AM EST 500 mg Oral active Chew 1 tablet by Mouth Two times daily as needed [facility] oxyCODONE HCl ER 20 MG Oral Tablet ER 12 Hour [place] (OXYCONTIN) 1122-0431-81 05/17/2020 12:00:00 AM EST 20 mg Oral abort ed Take 1 tablet by mouth every 12 (twelve) hours , Max Daily Dose: 40 mg [facility] Methocarbamol 500 MG Oral Tablet Methocarbamol 500 MG Oral Tablet (ROBAXIN) Methocarbamol 500 MG Oral Tablet (ROBAXIN) 05/17/2020 12:00:00 AM EST 500 mg Oral active Take 1 tablet by inderjit th Four times daily for 10 days [facility] Simethicone 80 MG Chewable Tablet Simeth icone 80 MG Oral Tablet Chewable (MYLICON) Simethicone 80 MG Oral Tablet Chewable (MYLICON) 05/17 12:00:00 AM EST 80 mg Oral active Chew 1 t ablet by Mouth every 6 (six) hours as needed for Flatulence for up to 10 days [facility] Ondansetron 4 MG Oral Tablet Ondansetron HCl 4 MG Oral Tablet (ZOFRAN) Ondansetron HCl 4 MG Oral Tablet (ZOFRAN) 05/17/2020 12:00:00 AM EST 4 mg Oral active Take 1 tablet by mouth every 8 (eight) hours as needed for Nausea for up to 7 days [facility] 500 mg 05/17/2020 12:00:00 AM EST tablet 40 TAKE ONE TABLET BY MOUTH FOUR TIMES A DAY FOR 10 DAYS TAKE ONE TABLET BY MOUTH FOUR TIMES A DAY FOR 10 DAYS SOLD: 05/18/2020 [facility] 4 mg 05/17/2020 12:00:00 AM EST tablet 18 TAKE ONE TABLET BY MOUTH EVERY 8 HOURS NEEDED FOR NAUSEA FOR UP TO 7 DAYS TAKE ONE TABLET BY MOUTH EVERY 8 HOURS NEEDED FOR NAUSEA FOR UP TO 7 DAYS SOLD: 05/18/2020 [facility] alginic acid 200 MG / Calcium Carbonate 80 MG / magnesium trisilicate 20 MG / Sodium Bicarbonate 70 MG Oral Tablet calcium carbonate (TUMS) chewable tablet 500 mg calcium carbonate (TUMS) chewable tablet 500 mg 2019 11:12:09 PM EST 500 mg Oral active 500 mg, Oral, 2 Times Daily PRN, Indigestion, Starting Tue05/16/20 at 2312, For 30 days [facility] Medication administered onsite iohexol (OMNIPAQUE) 300 MG/ML contrast injection 50 mL [id number] 05/16/2020 12:15:00 PM EST 50 mL Given by IV completed 50 mL, Given by IV, 1 TIME IMAGING, Tue05/16/20 at 1215, For 1 dose [facility] Medication administered onsite iohexol (OMNIPAQUE) 300 MG/ML contrast injection 100 mL [id number] 02 05/16/2020 11:30:00 AM EST 100 mL Given by IV completed 100 mL, Given by IV, 1 TIME IMAGING, Tue05/16/20 at 1130, For 1 dose [facility] Medication administered onsite iohexol (OMNIPAQUE) 240 MG/ML contrast 20 mL [id number] 09:22:00 AM EST 20 mL Oral completed 20 mL, Oral, P RN, Contrast, Starting Tue05/16/20 at 0922, For 1 day
Dilute before administering
[facility] Medication administered onsite 1 ML Enoxaparin sodium 100 MG/ML Prefill ed Syringe enoxaparin sodium (LOVENOX) injection 90 mg enoxaparin sodium (LOVENOX) injection 90 mg 05/15/2020 09:00:00 PM EST 90 mg Subcutaneous active 90 mg, Subcutaneous, Daily Standard, First dose on Tue05/15/20 at 2100, For 30 days [facility] Medication administered onsite Acetaminophen 325 MG Oral Tablet acetaminophen (TYLENO L) tablet 975 mg acetaminophen (TYLENOL) tablet 975 mg 05/15/2020 03:00:00 PM EST 97 5 mg Oral active 975 mg, Oral, E very 8 hours, First dose (after last modification) on Tue05/15/20 at 1500, For 30 days
Maximum daily dose of acetaminophen is 3,000 mg from all sources in 24 hours.
[facility] Medication administered onsite lidocaine (XYLOCAINE) 2 % injection [id number] 05/15/2020 10:54:13 AM EST completed Code/Trauma Medicati on, Starting Mouna 05/15/20 at 1054 [facility] Medication administered onsite 2 ML Midazolam 1 MG/ML Injection midazolam (PF) (VERSE D) injection midazolam (PF) (VERSED) injection 05/15/2020 10:49:20 AM EST completed Code/Trauma Medication, Starting Mouna 05/15/20 at 1049 [facility] Medication administered onsite fentaNYL (SUBLIMAZE) (PF) injection [id number] 05/15/2020 10:49:13 AM EST completed Code/Trauma Medicati on, Starting Mouna 05/15/20 at 1049 [facility] Medication administered onsite sodium phosphate infusion 6 mmol/100 mL (premix) 05/15 06:30:00 AM EST 6 mmol Intravenous completed 6 mmol, Intravenous, at 25 mL/hr, Once, [facility] 05/15/20 at 0630, For 1 dose
Slower infusion rate (e.g. over 4 to 6 hours) are recommended in patients with renal impairment and/or less severe hypophos phatemia.
[facility] Medication administered onsite magnesium sulfate in dextrose 5 % infusion (premix) 1 g [id number] [id number] 05/15/2020 06:30:00 AM EST 1 g Intravenous completed 1 g, Intravenous, Administer over 60 Minutes, Once, [facility] 05/15/20 at 0630, For 1 dose [facility] Medication administered onsite oxyCODONE HCl ER (OXYCONTIN) 12 hr tablet 20 mg [id number] 05/14/2020 09:00:00 PM EST 20 mg Oral active 20 mg, O ral, Every 12 hours Standard (2 times per day), First dose on Tue05/14/20 at 2100, For 7 days
Do not crush or chew
[facility] Medication administered onsite sodium phosphate infusion 6 mmol/100 mL (premix) 05/14 12:30:00 PM EST 6 mmol Intravenous completed 6 mmol, Intravenous, at 25 mL/hr, Every 4 hours, First dose (after last reorder) on Tue05/14/20 at 1230, For 2 doses
Slower infusion rate (e.g. over 4 to 6 hours) are recommended in patients with renal impairment and/or less severe hypophosphatemia.
[facility] Medication administered onsite Amoxicillin 875 MG / Clavulanate 125 MG Oral Tablet amoxicillin-clavulanate (AUGMENTIN) 875-125 MG per tablet 1 tablet amoxicillin-clavulanate (AUGMENTIN) 875-125 MG per tablet 1 tablet 05/14/2020 09:00:00 AM EST 1 {tbl} Or al active 1 tablet, Oral, Ever y 12 hours Standard (2 times per day), First dose (after last modification) on Tue05/14/20 at 0900, For 6 days [facility] Medication administered onsite 0.4 ML Enoxaparin sodium 100 MG/ML Prefi lled Syringe enoxaparin sodium (LOVENOX) injection 40 mg enoxaparin sodium (LOVENOX) injection 40 mg 05/14/2020 09:00:00 AM EST 40 mg Subcutaneous aborted 40 mg, Subcutaneous, Daily Standard, First dose (after last modification) on Tue05/14/20 at 0900, For 29 doses [facility] Medication administered onsite sodium phosphate infusion 6 mmol/100 mL (premix) 05/14 08:00:00 AM EST 6 mmol Intravenous aborted 6 mmol, Intravenous, at 25 mL/hr, Every 2 hours, First dose on Tue05/14/20 at 0800, For 3 doses
Slower infusion rate (e.g. over 4 to 6 hours) are recommended in patients with renal impairment and /or less severe hypophosphatemia.
[facility] Medication administered onsite Simethicone 80 MG Chewable Tablet simethicone (MYLICON ) chewable tablet 80 mg simethicone (MYLICON) chewable tablet 80 mg 05/14/2020 07:38:45 AM EST 80 mg Oral active 80 mg, Oral, E very 6 hours PRN, Flatulence, Starting Tue05/14/20 at 0738, For 30 days [facility] Medication administered onsite magnesium sulfate in dextrose 5 % infusion (premix) 1 g 0409 -6727-05/14/2020 06:15:00 AM EST 1 g Intravenous completed 1 g, Intravenous, Administer over 60 Minutes, Once, Tue05/14/20 at 0615, For 1 dose [facility] Medication administered onsite Amoxicillin 875 MG / Clavulanate 125 MG Oral Tablet amoxicillin-clavulanate (AUGMENTIN) 875-125 MG per tablet 1 tablet amoxicillin-clavulanate (AUGMENTIN) 875-125 MG per tablet 1 tablet 05/13/2020 09:00:00 PM EST 1 {tbl} Or al aborted 1 tablet, Oral, Ever y 12 hours Standard (2 times per day), First dose on Tue05/13/20 at 2100, For 14 days [facility] Medication administered onsite 12 HR Guaifenesin 600 MG Extended Releas e Oral Tablet guaifenesin (MUCINEX) 12 hr tablet 600 mg guaifenesin (MUCINEX) 12 hr tablet 600 mg 05/13/2020 1 2:45:00 PM EST 600 mg Oral active 600 mg, Oral, 2 Times Daily, First dose on Tue05/13/20 at 1245, For 30 days
Do not crush or chew
[facility] Medication administered onsite Monobasic potassium phosphate 0.0408 MEQ /ML Oral Solution potassium phosphate (monobasic) (K-PHOS ORIGINAL) tablet 500 mg potassium phosphate (monobasic) (K- PHOS ORIGINAL) tablet 500 mg 05/13/2020 12:00:00 PM EST 500 mg Oral completed 500 mg, Oral, Four T imes Daily-With Meals & Nightly, First dose on Tue05/13/20 at 1200, For 3 days
Dissolve tablets in 6-8 oz of water; for best results, soak tablets in water for 2-5 minutes, then stir and give to patient.
Each 500 mg tablet contains: elemental phosphorous 114 mg and potassium 144 mg (3.7 mEq)
[facility] Medication administered onsite lidocaine (LIDODERM) 5 % patch 2 patch [id number] 0 09:15:00 AM EST 2 {patch} Transdermal active 2 patch, T ransdermal, Daily Standard, First dose on Tue05/13/20 at 0915, For 30 days
Apply to flank/back or any tender area.12 hours on - 12 hours off
[facility] Medication administered onsite Methocarbamol 500 MG Oral Tablet methocarbamol (ROBAXI N) tablet 500 mg methocarbamol (ROBAXIN) tablet 500 mg 05/13/2020 09:15:00 AM EST 50 0 mg Oral active 500 mg, Oral, F our Times Daily Standard, First dose on Tue05/13/20 at 0915, For 30 days [facility] Medication administered onsite potassium phosphate infusion 6 mmol/100 mL (premix) 05/13/2020 08:00:00 AM EST 6 mmol Intravenous aborted 6 mm ol, Intravenous, at 25 mL/hr, Every 2 hours, First dose on Tue05/13/20 at 0800, For 3 doses
Slower infusion rates (e.g. over 4 hours) are recommended in patients with renal impairment and/or le ss severe hypophosphatemia. Product contains 8.8 mEq of potassium.
[facility] Medication administered onsite lidocaine (XYLOCAINE) 2 % injection [id number] 05/12/2020 06:42:09 PM EST completed Code/Trauma Medicati on, Starting 05/12/20 at 1842 [facility] Medication administered onsite 2 ML Midazolam 1 MG/ML Injection midazolam (PF) (VERSE D) injection midazolam (PF) (VERSED) injection 05/12/2020 06:40:54 PM EST completed Code/Trauma Medication, Starting 05/12/20 at [facility] Medication administered onsite fentaNYL (SUBLIMAZE) (PF) injection [id number] 05/12/2020 06:40:45 PM EST completed Code/Trauma Medicati on, Starting 05/12/[address] [place] [address] Medication administered onsite 0.4 ML Enoxaparin sodium 100 MG/ML Prefi lled Syringe enoxaparin sodium (LOVENOX) injection 40 mg enoxaparin sodium (LOVENOX) injection 40 mg 05/11/2020 10:00:00 AM EST 40 mg Subcutaneous aborted 40 mg, Subcutaneous, Daily Standard, First dose on 05/11/20 at 1000, For 30 days [facility] Medication administered onsite ondansetron (ZOFRAN) injection 4 mg [id number] 05/11/2020 09:16:2 8 AM EST 4 mg Intravenous active 4 mg, In travenous, Every 8 hours PRN, Nausea, Vomiting, Starting 05/11/20 at 0916, For 30 days [facility] Medication administered onsite levothyroxine (SYNTHROID) tablet 125 mcg 05/11/2020 06:00: 00 AM EST 125 ug Oral active 125 mcg, Oral, Daily at 0600, First dose on 05/11/20 at 0600, For 30 days [facility] Medication administered onsite potassium chloride (K-DUR) dissolvable tablet 10 mEq [id number] 05/10/2020 10:00:00 PM EST 10 meq Oral completed 10 mEq, Oral, Once, 05/10/20 at 2200, For 1 dose
May be dissolved in water for patients with a G-Tube or unable to swallow. If concern for clogging G-Tube, may contact Pharmacy to switch formulation to a powder packet.
[facility] Medication administered onsite potassium chloride (K-DUR) dissolvable tablet 20 mEq [id number] 05/10/2020 09:00:00 PM EST 20 meq Oral active 20 mEq, Oral, 2 Times Daily, First dose on 05/10/20 at 2100, For 30 days
May be dissolved in water for patients with a G-Tube or unable to swallow. If concern for clogging G-Tube, may contact Pharmacy to switch formulation to a powder packet.
[facility] Medication administered onsite Acetaminophen 325 MG Oral Tablet acetaminophen (TYLENO L) tablet 650 mg acetaminophen (TYLENOL) tablet 650 mg 05/10/2020 12:04:28 PM EST 65 0 mg Oral aborted 650 mg, Oral, E very 6 hours PRN, Mild Pain (Pain Scale Score 1- 3), Starting 05/10/20 at 1204, For 30 days
Maximum daily dose of acetaminophen is 3,000 mg from all sources in 24 hours.
[facility] Medication administered onsite potassium phosphate 155 MG / Sodium Phos phate, Dibasic 852 MG / Sodium Phosphate, Monobasic 130 MG Oral Tablet phosphorus (K PHOS NEUTRAL) tablet 500 mg phosphorus (K PHOS NEUTRAL) tablet 500 mg 05/10/2020 11:15:00 AM EST 500 mg Oral completed 500 mg, Or al, Once, 05/10/20 at 1115, For 1 dose
Each 250 mg tablet contains: elemental phosphorous 250 mg (8 mmol), sodium 298 mg (12.9 mEq), and potassium 45 mg (1.1 mEq)
[facility] Medication administered onsite Piperacillin 3000 MG / tazobactam 375 MG Injection piperacillin-tazobactam (ZOSYN) IVPB 3.375 g (premix) piperacillin-tazobactam (ZOSYN) IVPB 3.3 75 g (premix) 05/10/2020 09:30:00 AM EST 3.375 g Intravenous abo rted 3.375 g, Intravenous, Administer over 4 Hours, Every 8 hours, First dose on 05/10/20 at 0930, For 5 days
This specific formulation of piperacillin- tazobactam is compatible with Lactated Ringers.
[facility] Medication administered onsite potassium chloride SA (K-DUR) CR tablet 10 mEq [id number] 05/10/2020 09:00:00 AM EST 10 meq Oral aborted 10 mEq, Oral, 2 Times Daily, First dose on 05/10/20 at 0900, For 30 days
Do not crush or chew
[facility] Medication administered onsite Sulfasalazine 500 MG Oral Tablet sulfaSALAzine (AZULFI DINE) tablet 500 mg sulfaSALAzine (AZULFIDINE) tablet 500 mg 05/10/2020 09:00:00 AM EST 500 mg Oral active 500 mg, Oral, Four Times Daily Standard, First dose on 05/10/20 at 0900, For 30 days [facility] Medication administered onsite Fluoxetine 20 MG Oral Capsule fluoxetine (PROZAC) caps ule 20 mg fluoxetine (PROZAC) capsule 20 mg 05/10/2020 09:00:00 AM EST 20 mg Oral active 20 mg, Oral, Daily Standard, First dose on 05/10/20 at 0900, For 30 days [facility] Medication administered onsite Docusate Sodium 10 MG/ML Oral Suspension docusate (COLACE) 50 MG/5ML liquid 100 mg docusate (COLACE) 50 MG/5ML liquid 100 mg 05/10/2020 09:00:00 AM EST 100 mg Oral active 100 mg, Or al, 2 Times Daily, First dose on 05/10/20 at 0900, For 30 days [facility] Medication administered onsite torsemide 20 MG Oral Tablet torsemide (DEMADEX) tablet 10 mg torsemide (DEMADEX) tablet 10 mg 05/10/2020 09:00:00 AM EST 10 mg Oral acti ve 10 mg, Oral, Daily Standard, First dose on 05/10/20 at 0900, For 30 days [facility] Medication administered onsite 0.8 ML Enoxaparin sodium 100 MG/ML Prefi lled Syringe enoxaparin sodium (LOVENOX) injection 80 mg enoxaparin sodium (LOVENOX) injection 80 mg 05/10/2020 09:00:00 AM EST 80 mg Subcutaneous aborted 80 mg, Subcutaneous, Daily Standard, First dose on 05/10/20 at 0900, For 30 days [facility] Medication administered onsite POLYETHYLENE GLYCOL 3350 142 MG/ML Oral Solution polyethylene glycol (MIRALAX) packet 17 g polyethylene glycol (MIRALAX) packet 17 g 05/10/2020 0 7:45:00 AM EST 17 g Oral active 17 g, Or al, Daily Standard, First dose on 05/10/20 at 0745, For 30 days
Mix in 8 ounces of water, juice or milk. Avoid use in patients who require thickened liquids due to potential increased risk for aspiration.
[facility] Medication administered onsite magnesium sulfate in dextrose 5 % infusion (premix) 1 g 0409 -[id number] 05/10/2020 07:00:00 AM EST 1 g Intravenous completed 1 g, Intravenous, Administer over 60 Minutes, Once, 05/10/20 at 0700, For 1 dose [facility] Medication administered onsite Potassium Chloride 0.1 MEQ/ML Injectable Solution potassium chloride 10 mEq in 100 mL IVPB (premix) potassium chloride 10 mEq in 100 mL IVPB (premix) 05/10/2020 07:00:00 AM EST 10 meq Intravenous completed 10 mEq, Intravenous, Administer over 60 Minutes, Every 1 hour, First dose on 05/10/20 at 0700, For 2 doses [facility] Medication administered onsite Calcium Chloride 0.0014 MEQ/ML / Potassi um Chloride 0.004 MEQ/ML / Sodium Chloride 0.103 MEQ/ML / Sodium Lactate 0.028 MEQ/ML Injectable Solution lactated ringers infusion lactated ringers infusion 05/10/2020 06:30:00 AM EST 75 mL/h Intravenous aborted at 75 mL /hr, Intravenous, Continuous, Starting 05/10/20 at 0630, For 30 days [facility] Medication administered onsite fentaNYL (SUBLIMAZE) (PF) injection 25 mcg [id number] 05/10/2020 02:45:00 AM EST 25 ug Intravenous completed 25 mcg, Intravenous, Once, 05/10/20 at 0245, For 1 dose [facility] Medication administered onsite Piperacillin 3000 MG / tazobactam 375 MG Injection piperacillin-tazobactam (ZOSYN) IVPB 3.375 g (premix) piperacillin-tazobactam (ZOSYN) IVPB 3.3 75 g (premix) 05/10/2020 02:45:00 AM EST 3.375 g Intravenous com pleted 3.375 g, Intravenous, Administer over 0.5 Hours, Once, 05/10/20 at 0245, For 1 dose
This specific formulation of piperacillin-tazobactam is compatible with Lactated Ringers.
[facility] Medication administered onsite sodium chloride 0.9 % bolus 500 mL [id number] 05/10/2020 02:45:00 AM EST 500 mL Intravenous completed 500 mL, Intravenous, Once, 05/10/20 at 0245, For 1 dose [facility] Medication administered onsite 88 mcg 05/05/2020 12:00:00 AM EST tablet 30 TAKE ONE TABLET BY MOUTH EVERY DAY TAKE ONE TABLET BY MOUTH EVERY DAY SOLD: 06/12/2020 [facility] Levothyroxine Sodium 0.088 MG Oral Tablet Levothyroxine Sodi um 05/05/2020 12:00:00 AM EST ORAL active M [facility]ENT ([facility]) 0.3 ML Enoxaparin sodium 100 MG/ML Prefilled Syringe [Loveno x] Lovenox 05/05/2020 12:00:00 AM EST ORAL active MED[facility] ([facility]) 88 mcg 05/05/2020 12:00:00 AM EST tablet 30 TAKE ONE TABLET BY MOUTH EVERY DAY TAKE ONE TABLET BY MOUTH EVERY DAY SOLD: 05/05/2020 [facility] 2 mg 04/24/2020 12:00:00 AM EST tablet 30 TAKE ONE TABLET BY MOUTH EVERY DAY DIRECTED TAKE ONE TABLET BY MOUTH EVERY DAY DIRECTED SOLD: 04/25/2020 [facility] 100 mcg 03/06/2020 12:00:00 AM EDT tablet 30 TAKE ONE TABLET BY MOUTH EVERY DAY TAKE ONE TABLET BY MOUTH EVERY DAY SOLD: 04/03/2020 [facility] 100 mcg 03/06/2020 12:00:00 AM EDT tablet 30 TAKE ONE TABLET BY MOUTH EVERY DAY TAKE ONE TABLET BY MOUTH EVERY DAY SOLD: 03/06/2020 [facility] Levothyroxine Sodium 0.1 MG Oral Tablet Levothyroxine Sodium 03/05/2020 12:00:00 AM EDT ORAL completed [facility] ([facility]) 4 mg 02/27/2020 12:00:00 AM EDT tablet 30 TAKE ONE TABLET BY MOUTH EVERY DAY TAKE ONE TABLET BY MOUTH EVERY DAY SOLD: 02/27/2020 [facility] 4 mg 02/27/2020 12:00:00 AM EDT tablet 30 TAKE ONE TABLET BY MOUTH EVERY DAY TAKE ONE TABLET BY MOUTH EVERY DAY SOLD: 03/26/2020 [facility] Warfarin Sodium 4 MG Oral Tablet [Coumadin] Coumadin 11/2019 12:00:00 AM EDT ORAL active [facility] ( [facility] 80 mg/0.8 mL 02/25/2020 12:00:00 AM EDT syringe 48 INJECT 80MG UNDER THE SKIN EVERY 12 HOURS INJECT 80MG UNDER THE SKIN EVERY 12 HOURS SOLD: 02/25/2020 [facility] liothyronine sodium 0.025 MG Oral Tablet Liothyronine Sodium 02/24/2020 12:00:00 AM EDT completed [facility] ([facility] 500 mg 02/22/2020 12:00:00 AM EDT tablet 4 TAKE ONE TABLET BY MOUTH TWICE A DAY TAKE ONE TABLET BY MOUTH TWICE A DAY SOLD: 02/24/2020 [facility] doxycycline hyclate 100 MG Oral Tablet DOXYCYCLINE HYCLATE 1 12:00:00 AM EDT tablet 4 TAKE ONE TABLET BY MOUTH TWI CE A DAY TAKE ONE TABLET BY MOUTH TWICE A DAY SOLD: 02/24/2020 [facility] 25 mcg 12/25/2019 12:00:00 AM EDT tablet 30 TAKE ONE TABLET BY MOUTH EVERY DAY TAKE ONE TABLET BY MOUTH EVERY DAY SOLD: 12/25/2019 [facility] 125 mcg 12/24/2019 12:00:00 AM EDT tablet 30 TAKE ONE TABLET BY MOUTH EVERY DAY TAKE ONE TABLET BY MOUTH EVERY DAY SOLD: 12/24/2019 [facility] Levothyroxine Sodium 0.125 MG Oral Tablet Levothyroxine Sodi um 12/24/2019 12:00:00 AM EDT ORAL completed [facility] ([facility]) 125 mcg 12/24/2019 12:00:00 AM EDT tablet 30 TAKE ONE TABLET BY MOUTH EVERY DAY TAKE ONE TABLET BY MOUTH EVERY DAY SOLD: 02/27/2020 [facility] 125 mcg 12/24/2019 12:00:00 AM EDT tablet 30 TAKE ONE TABLET BY MOUTH EVERY DAY TAKE ONE TABLET BY MOUTH EVERY DAY SOLD: 01/21/2020 [facility] liothyronine sodium 0.025 MG Oral Tablet Liothyronine Sodium 12/24/2019 12:00:00 AM EDT ORAL completed [facility] ([facility]) 500 mg 2019 12:00:00 AM EDT tablet 6 TAKE ONE TABLET BY MOUTH TWICE A DAY FOR 3 DAYS TAKE ONE TABLET BY MOUTH TWICE A DAY FOR 3 DAYS SOLD: 2019 [facility] Levothyroxine Sodium 0.05 MG Oral Tablet Levothyroxine Sodiu m 08/23/2019 12:00:00 AM EDT ORAL completed [facility] ([facility]) 75 mcg 07/18/2019 12:00:00 AM EST tablet 30 TAKE ONE TABLET BY MOUTH EVERY DAY TAKE ONE TABLET BY MOUTH EVERY DAY SOLD: 07/18/2019 [facility] Levothyroxine Sodium 0.075 MG Oral Tablet Levothyroxine Sodi um 07/17/2019 12:00:00 AM EST ORAL completed [facility] ([facility]) 10 mg 05/17/2019 12:00:00 AM EST tablet 60 TAKE ONE TABLET BY MOUTH EVERY DAY, TAKE SECOND DOSE IF WEIGHT IS UP MORE THAN 2 LBS TAKE ONE TABLET BY MOUTH EVERY DAY, TAKE SECOND DOSE IF WEIGHT IS UP MORE THAN 2 LBS SOLD: 05/20/2019 [facility] 20 mg 12/13/2018 12:00:00 AM EDT capsule 30 TAKE ONE CAPSULE BY MOUTH EVERY DAY TAKE ONE CAPSULE BY MOUTH EVERY DAY SOLD: 05/07/2019 [facility] 10 mg 11/14/2018 12:00:00 AM EDT tablet 60 TAKE ONE TABLET BY MOUTH EVERY DAY, TAKE SECOND DOSE IF WEIGHT IS UP MORE THAN 2 LBS TAKE ONE TABLET BY MOUTH EVERY DAY, TAKE SECOND DOSE IF WEIGHT IS UP MORE THAN 2 LBS SOLD: 04/20/2019 [facility] 10 mEq 06/21/2018 12:00:00 AM EST capsule, extended relea se 30 TAKE ONE CAPSULE BY MOUTH ONCE DAILY, TAKE TWO CAPSULES ONLY IF TWO FLUID CAPSULES ARE NEEDED IF WEIGHT IS UP TAKE ONE CAPSULE BY MOUTH ONCE DAILY, TA KE TWO CAPSULES ONLY IF TWO FLUID CAPSULES ARE NEEDED IF WEIGHT IS UP SOLD: 05/20/2019 [facility] tramadol hydrochloride 50 MG Oral Tablet traMADol HCl 50 MG Oral Tablet (ULTRAM) traMADol HCl 50 MG Oral Tablet (ULTRAM) 50 mg Oral aborted Take 50 mg by mouth every 6 (six) hours as needed for Pain [facility] torsemide 10 MG Oral Tablet Torsemide 10 MG Oral Table t (DEMADEX) Torsemide 10 MG Oral Tablet (DEMADEX) 10 mg Oral aborted Take 10 mg by mouth daily [facility] Warfarin Sodium 2 MG Oral Tablet Warfarin Sodium 2 MG Oral Tablet (COUMADIN) Warfarin Sodium 2 MG Oral Tablet (COUMADIN) 2 mg Oral aborted Take 2 mg by mouth daily [facility] Insurance Providers Payer name Policy type / Coverage type Policy ID Covered green party ID Covered green party's relationship to stock Policy Stock Plan Information [employer] U [id number] Self [id number] MEDICARE A [id number] Self [id number] MEDICARE [id number] SP [id number] AETNA [facility] [place] [id number] SP [id number] AETNA [facility] [place] [id number] S [id number] MEDICARE C [id number] S [id number] [employer] BENEFIT PLAN U [id number] Self [id number] [employer]AN U [id number] Self [id number] MEDICARE A [id number] Self [id number] MEDICARE [id number] SP [id number] [employer]ETNA [facility] [place] [id number] SP [id number] MEDICARE [id number] SP [id number] A MEDICARE [id number] SP [id number] [place] [id number] Self [id number] Mailhandlers/Foreign SVC Medigap Part B [id number] Self [id number] [employer]hand[employer]/Foreign SVC Medigap Part B [id number] Self [id number] [employer] [facility] [place] [id number] SP [id number] [place] [id number] Self [id number] [employer]ETNA [facility] [place] [id number] SP [id number] [place] [id number] Self [id number] [place] [id number] Self [id number] [employer] [id number] SP [id number] Aetna Medigap Part B [id number] Self [id number] [place] Primary [id number] Self [id number] [place] Primary [id number] Self [id number] [place] Primary [id number] Self [id number] [place] Primary [id number] Self [id number] A[employer]na Medigap Part B [id number] Self [id number] [place] Primary [id number] Self [id number] [place] Primary [id number] Self [id number] [employer]ETNA [facility] [place] [id number] SP [id number] [employer]EN[employer]AN [id number] SP [id number] Aetna Medigap Part B [id number] Self [id number] [place] Primary [id number] Self [id number] [place] Primary [id number] Self [id number] [employer]/Foreign SVC Medigap Part B [id number] Self [id number] Aetna Medigap Part B [id number] Self [id number] [place] Primary [id number] Self [id number] [place] Primary [id number] Self [id number] [place] Primary [id number] Self [id number] [employer]et[employer] Medigap Part B [id number] Self [id number] [place] Primary [id number] Self [id number] [facility] [employer]IL [employer] BENEF O [id number] S [id number] MEDICARE C [id number] S [id number] [facility] C [id number] S [id number] [place] Primary [id number] Self [id number] [employer]et[employer] Medigap Part B [id number] Self [id number] [place] Primary [id number] Self [id number] [facility] MEDIC[facility] PART B C [id number] S [id number] [employer] BENEFIT PLAN [id number] SP [id number] Mailhandlers/Foreign SVC Medigap Part B Family Dep endent Mailhandlers/Foreign SVC Medigap Part B Self [place] Primary Self [employer] Self [employer] BENEFIT PLAN [id number] SP [id number] [employer] BENEFIT PLAN [id number] SP [id number] Aetna Medigap Part B Self [place] Medicare Primary Self [employer] BENEFIT PLAN UNAVAILABLE UNAVAILABLE MEDICARE [id number] SP [id number] A [facility] [employer] BENEF O [id number] S [id number] [employer] PLAN [id number] [facility] [id number] Problems, Conditions, and Diagnoses Code Display Name Description Problem Type Effective Dates Data Source(s) C22.9 Malignant neoplasm of liver, not specifi ed as primary or secondary Malignant neoplasm of liver, not specified as primary or secondary Diagnosis 05/30/2020 11:42:[address] 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 K75.0 Abscess of liver Abscess of liver Diagnosis 05/10/2020 04 :42:[address] [facility] R94.31 Abnormal electrocardiogram [ECG] [EKG] A bnormal electrocardiogram (ECG) (EKG) Diagnosis 05/10/2020 12:57:00 AM [facility] R50.9 Fever, unspecified Fever, unspecified Diagnosis 12:57:[address] [facility] Z20.828 Contact with and (suspected) exposure to other viral communicable diseases Contact with and (suspected) exposure to other viral communicable diseases Diagnosis 05/10/2020 12:57:00 AM [facility] Liver abscess, septic Liver abscess, septic Diagnosis 05/10/2020 12:57:[address] [facility] Surgeries/Procedures Procedure Description Date Indications Data Source(s) PATHOLOGY REPORT (OUTSIDE/HISTORICAL) PATHOLOGY REPORT (OUTSIDE /HISTORICAL) 06/02/2020 10:43 AM EST Cholangiocarcinoma 06/02/2020 10:43:00 AM [facility] Cholangiocarcinoma [facility] Cholangiocarcinoma MRI BRAIN BRAIN STEM W/O &W/CONTRAST MATERIAL MR BRAI N WITH AND WITHOUT CONTRAST [id number] STAT 05/17/2020 4:25 AM EST 05/17/2020 04:25:[address] [facility] BLOOD COUNT COMPLETE AUTO&AUTO DIFRNTL WBC COUNT CBC AND DIFFER ENTIAL Routine 05/17/2020 3:45 AM EST 05/17/2020 03:45:[address] [facility] PHOSPHORUS INORGANIC PHOSPHORUS LEVEL Routine 05/17/2020 3:[address] 05/17/2020 03:45:[address] [facility] MAGNESIUM MAGNESIUM LEVEL Routine 05/17/2020 3:45 AM EST 05/17/2020 03:45:[address] [facility] BASIC METABOLIC PANEL CALCIUM TOTAL BASIC METABOLIC PANEL Routi ne 05/17/2020 3:45 AM EST 05/17/2020 03:45:00 AM [facility] CT THORAX W/CONTRAST MATERIAL CT THORAX WITH CONTRAST [id number] STA T 05/16/2020 12:26 PM EST 05/16/2020 12:26:29 [address] [facility] CT ABDOMEN & PELVIS W/O CONTRST 1/> [facility] CT A BDOMEN PELVIS WITH AND WITHOUT CONTRAST [id number] STAT 05/16/2020 12:26 PM EST 05/16/2020 12:26:[address] [facility] BLOOD COUNT COMPLETE AUTOMATED CBC AND DIFFERENTIAL Routine 05/16/2020 4:59 AM EST 05/16/2020 04:59:00 AM [facility] PHOSPHORUS INORGANIC PHOSPHORUS LEVEL Routine 05/16/2020 4:[address] 05/16/2020 04:59:[address] [facility] MAGNESIUM MAGNESIUM LEVEL Routine 05/16/2020 4:59 AM EST 05/16/2020 04:59:[address] [facility] BASIC METABOLIC PANEL CALCIUM TOTAL BASIC METABOLIC PANEL Routi ne 05/16/2020 4:59 AM EST 05/16/2020 04:59:00 AM [facility] BIOPSY LIVER NEEDLE PERCUTANEOUS IR IMAGE GUIDED NEEDLE DRAIN P ROCEDURE STAT 05/15/2020 11:05 AM EST 05/15/2020 11:05:[address] [facility] CUL BACT XCPT URINE BLOOD/STOOL AEROBIC ISOL WOUND CULTURE Ro utine 05/15/2020 11:05 AM EST 05/15/2020 11:05:00 AM [facility] THROMBOPLASTIN TIME PARTIAL PLASMA/WHOLE BLOOD PARTIA L THROMBOPLASTIN TIME (PTT) Routine 05/15/2020 4:59 AM EST 05/15/2020 04:59 :[address] [facility] PROTHROMBIN TIME PROTIME INR Routine 05/15/2020 4:59 AM EST 05/15/2020 04:59:[address] [facility] BLOOD COUNT COMPLETE AUTO&AUTO DIFRNTL WBC COUNT CBC AND DIFFER ENTIAL Routine 05/15/2020 4:59 AM EST 05/15/2020 04:59:[address] [facility] PHOSPHORUS INORGANIC PHOSPHORUS LEVEL Routine 05/15/2020 4:[address] 05/15/2020 04:59:[address] [facility] MAGNESIUM MAGNESIUM LEVEL Routine 05/15/2020 4:59 AM EST 05/15/2020 04:59:[address] [facility] BASIC METABOLIC PANEL CALCIUM TOTAL BASIC METABOLIC PANEL Routi ne 05/15/2020 4:59 AM EST 05/15/2020 04:59:00 AM [facility] BLOOD COUNT COMPLETE AUTO&AUTO DIFRNTL WBC COUNT CBC AND DIFFER ENTIAL Routine 05/14/2020 4:10 AM EST 05/14/2020 04:10:[address] [facility] PHOSPHORUS INORGANIC PHOSPHORUS LEVEL Routine 05/14/2020 4:[address] 05/14/2020 04:10:[address] [facility] MAGNESIUM MAGNESIUM LEVEL Routine 05/14/2020 4:10 AM EST 05/14/2020 04:10:[address] [facility] BASIC METABOLIC PANEL CALCIUM TOTAL BASIC METABOLIC PANEL Routi ne 05/14/2020 4:10 AM EST 05/14/2020 04:10:00 AM [facility] XR CHEST FRONTAL ONLY [id number] XR CHEST FRONTAL ONLY [id number] Routine 05/13/2020 8:52 AM EST 05/13/2020 08:52:00 AM [facility] IMMUNOASSAY TUMOR ANTIGEN QUANTITATIVE CA 19-9 CANCER ANTIGEN 1 9-9 Routine 05/13/2020 2:50 AM EST 05/13/2020 02:50:[address] [facility] ALPHA-FETOPROTEIN SERUM AFP TUMOR MARKER Routine 05/13/2020 2:50 A M EST 05/13/2020 02:50:[address] [facility] BLOOD COUNT COMPLETE AUTO&AUTO DIFRNTL WBC COUNT CBC AND DIFFER ENTIAL Routine 05/13/2020 2:50 AM EST 05/13/2020 02:50:[address] [facility] PHOSPHORUS INORGANIC PHOSPHORUS LEVEL Routine 05/13/2020 2:[address] 05/13/2020 02:50:[address] [facility] MAGNESIUM MAGNESIUM LEVEL Routine 05/13/2020 2:50 AM EST 05/13/2020 02:50:[address] [facility] CARCINOEMBRYONIC ANTIGEN CEA CEA Routine 05/13/2020 2:50 AM EST 05/13/2020 02:50:[address] [facility] HEPATIC FUNCTION PANEL HEPATIC FUNCTION PANEL A Routine 05/13/2020 2:50 AM EST 05/13/2020 02:50:00 AM [facility] BASIC METABOLIC PANEL CALCIUM TOTAL BASIC METABOLIC PANEL Routi ne 05/13/2020 2:50 AM EST 05/13/2020 02:50:00 AM [facility] CUL BACT XCPT URINE BLOOD/STOOL AEROBIC ISOL WOUND CULTURE Ro utine 05/12/2020 7:26 PM EST 05/12/2020 07:26:00 PM [facility] BIOPSY LIVER NEEDLE PERCUTANEOUS IR IMAGE GUIDED NEEDLE MARQUITA IN PROCEDURE Routine 05/12/2020 6:59 PM EST 05/12/2020 06:59:[address] [facility] BLOOD COUNT COMPLETE AUTO&AUTO DIFRNTL WBC COUNT CBC AND DIFFER ENTIAL Routine 05/12/2020 3:59 AM EST 05/12/2020 03:59:[address] [facility] PHOSPHORUS INORGANIC PHOSPHORUS LEVEL Routine 05/12/2020 3:[address] 05/12/2020 03:59:[address] [facility] MAGNESIUM MAGNESIUM LEVEL Routine 05/12/2020 3:59 AM EST 05/12/2020 03:59:[address] [facility] HEPATIC FUNCTION PANEL HEPATIC FUNCTION PANEL A Routine 05/12/2020 3:59 AM EST 05/12/2020 03:59:00 AM [facility] BASIC METABOLIC PANEL CALCIUM TOTAL BASIC METABOLIC PANEL Routi ne 05/12/2020 3:59 AM EST 05/12/2020 03:59:00 AM [facility] LEVEL I SURG PATHOLOGY GROSS EXAMINATION ONLY SURGICA L PATHOLOGY EXAM ( ONLY) Routine 05/12/2020 12:00 AM EST 05/12/2020 12:00 :[address] [facility] ULTRASOUND ABDOMINAL REAL TIME W/IMAGE LIMITED US ABDOMEN L IMITED [id number] Routine 05/11/2020 10:33 PM EST 05/11/2020 10:33:[address] [facility] BLOOD COUNT COMPLETE AUTO&AUTO DIFRNTL WBC COUNT CBC AND DIFFER ENTIAL Routine 05/11/2020 7:35 AM EST 05/11/2020 07:35:[address] [facility] PHOSPHORUS INORGANIC PHOSPHORUS LEVEL Routine 05/11/2020 7:[address] 05/11/2020 07:35:[address] [facility] MAGNESIUM MAGNESIUM LEVEL Routine 05/11/2020 7:35 AM EST 05/11/2020 07:35:[address] [facility] HOMOCYSTEINE HOMOCYSTEINE, SERUM Routine 05/11/2020 7:35 AM EST 05/11/2020 07:35:[address] [facility] HEPATIC FUNCTION PANEL HEPATIC FUNCTION PANEL A Routine 05/11/2020 7:35 AM EST 05/11/2020 07:35:00 AM [facility] BASIC METABOLIC PANEL CALCIUM TOTAL BASIC METABOLIC PANEL Routi ne 05/11/2020 7:35 AM EST 05/11/2020 07:35:00 AM [facility] HEPATITIS C ANTIBODY HEPATITIS C ANTIBODY Routine 05/10/2020 12:31 PM EST 05/10/2020 12:31:[address] [facility] URNLS DIP STICK/TABLET REAGENT AUTO MICROSCOPY URINALYSIS W ITH MICROSCOPIC CODE 05/10/2020 4:37 AM EST 05/10/2020 04:37:[address] [facility] EKG ED PHYSICIAN INTERPRETATION EKG ED PHYSICIAN INTERPRETATION Routine 05/10/2020 3:08 AM EST 05/10/2020 03:08:[address] [facility] BLOOD GASES ANY COMBINATION PH PCO2 PO2 CO2 HCO3 POCT ISTAT VBG /LAC Routine 05/10/2020 3:01 AM EST 05/10/2020 03:01:[address] [facility] TROPONIN QUANTITATIVE POCT ISTAT TROPONIN Routine 05/10/2020 2:57 AM EST 05/10/2020 02:57:[address] [facility] BASIC METABOLIC PANEL CALCIUM IONIZED POCT ISTAT CHEM8 Routine 05/10/2020 2:54 AM EST 05/10/2020 02:54:00 AM [facility] RESPIRATORY PATHOGEN PANEL RESPIRATORY PATHOGEN PANEL Routine 05/10/2020 2:48 AM EST 05/10/2020 02:48:00 AM [facility] COVID-19 PCR COVID-19 PCR Routine 05/10/2020 2:48 AM EST 05/10/2020 02:48:[address] [facility] THROMBOPLASTIN TIME PARTIAL PLASMA/WHOLE BLOOD PARTIA L THROMBOPLASTIN TIME (PTT) Routine 05/10/2020 2:48 AM EST 05/10/2020 02:48 :[address] [facility] NATRIURETIC PEPTIDE PROBNP Routine 05/10/2020 2:48 AM EST 05/10/2020 02:48:[address] [facility] ANTIBODY ID RBC ANTIBODIES EA PANEL EA SERUM TQ ANTIBODY ID ENTIFICATION Routine 05/10/2020 2:48 AM EST 05/10/2020 02:48:[address] [facility] CULTURE BACTERIAL BLOOD AEROBIC W/ID ISOLATES BLOOD CULTURE R outine 05/10/2020 2:48 AM EST 05/10/2020 02:48:00 AM [facility] CULTURE BACTERIAL BLOOD AEROBIC W/ID ISOLATES BLOOD CULTURE R outine 05/10/2020 2:48 AM EST 05/10/2020 02:48:00 AM [facility] PROTHROMBIN TIME PROTIME INR Routine 05/10/2020 2:48 AM EST 05/10/2020 02:48:[address] [facility] BLOOD COUNT COMPLETE AUTO&AUTO DIFRNTL WBC COUNT CBC AND DIFFER ENTIAL Routine 05/10/2020 2:48 AM EST 05/10/2020 02:48:[address] [facility] BLOOD TYPING ABO TYPE AND SCREEN STAT 05/10/2020 2:48 AM EST 05/10/2020 02:48:[address] [facility] TROPONIN QUANTITATIVE TROPONIN T CODE 05/10/2020 2:48 AM EST 05/10/2020 02:48:[address] [facility] THYROID STIMULATING HORMONE TSH TSH Routine 05/10/2020 2:48 AM EST 05/10/2020 02:48:[address] [facility] PHOSPHORUS INORGANIC PHOSPHORUS LEVEL Routine 05/10/2020 2:[address] 05/10/2020 02:48:[address] [facility] MAGNESIUM MAGNESIUM LEVEL Routine 05/10/2020 2:48 AM EST 05/10/2020 02:48:[address] [facility] LIPASE LIPASE LEVEL Routine 05/10/2020 2:48 AM EST 05/10/2020 02:48:[address] [facility] LACTATE LACTIC ACID LEVEL, PLASMA CODE 05/10/2020 2:48 AM EST 05/10/2020 02:48:[address] [facility] HEPATIC FUNCTION PANEL HEPATIC FUNCTION PANEL A CODE 0 2:48 AM EST 05/10/2020 02:48:00 AM [facility] BASIC METABOLIC PANEL CALCIUM TOTAL BASIC METABOLIC PANEL CODE 05/10/2020 2:48 AM EST 05/10/2020 02:48:00 AM [facility] EKG 12-LEAD - CMAXX REPORT EKG 12-LEAD - CMAXX REPORT 05/10/2020 2:41 AM EST 05/10/2020 02:41:18 AM [facility] EKG 12-LEAD - CMAXX REPORT EKG 12-LEAD - CMAXX REPORT 05/10/2020 2:41 AM EST 05/10/2020 02:41:18 AM [facility] EKG 12-LEAD EKG 12-LEAD STAT 05/10/2020 2:41 AM EST 05/10/2020 02:41:[address] [facility] Capillary Blood Collection Finger, Heel, Ear Stick 04/15/2020 12:00:00 AM EST [facility] ([facility] ) Capillary Blood Collection Finger, Heel, Ear Stick 03/10/2020 12:00:00 AM EDT [facility] ([facility] ) Capillary Blood Collection Finger, Heel, Ear Stick 03/03/2020 12:00:00 AM EDT [facility] ([facility] ) Capillary Blood Collection Finger, Heel, Ear Stick 02/29/2020 12:00:00 AM EDT [facility] ([facility] ) Radiopharmaceutical Therapy By Oral Administration 11/20/2019 12:00:00 AM EDT [facility] ([facility]) THERAPEUTIC PX 1/> AREAS EACH 15 MIN EXERCISES 019 12:00:00 AM EST [facility] ([facility]) Results ID Date Data Source [id number] 06/08/2020 06:15:08 PM [facility] Hospital Name Value Range Interpretation Code Description Data Vicky rce(s) Supporting Document(s) Progress Note [facility] ZJTWMk7iBeQTPlXl62/HBYtyKYMof9CrYJqjKJz7PChnYBMyY4YiJCO0cL0bWUD1CLlHXlCfQgLyILV8 lbm [file] ICAgICAgICAgICAgICAgICAgICAgICAgICAgICAgICAgICAgICAgICAgICAgICAgICAgICAgICAgICAg ICAgICAgICAgICAgICAgICAgICAgICAgICAgICAgICAgICANCiAgICAgICAgICAgICAgICAgICAgICAg ICAgICAgICAgICAgICAgICAgICAgICAgICAgICAgIC AgICAgICAgICAgICAgICAgICAgICAgICAgICAgICAgICAgICAgICAgICAgICANCiAgICAgICAgICAgIC AgICAgICAgICAgICAgICAgICAgICAgICAgICAgICAgICAgICAgICAgICAgICAgICAgICAgICAgICAgIC AgICAgICAgICAgICAgICAgICAgICAgICAgICANCiAg ICAgICAgICAgICAgICAgICAgICAgICAgICAgICAgICAgICAgICAgICAgICAgICAgICAgICAgICAgICAg ICAgICAgICAgICAgICAgICAgICAgICAgICAgICAgICAgICAgICANCiAgICAgICAgICAgICAgICAgICAg ICAgICAgICAgICAgICAgICAgICAgICAgICAgICAgIC AgICAgICAgICAgICAgICAgICAgICAgICAgICAgICAgICAgICAgICAgICAgICAgICANCiAgICAgICAgIC AgICAgICAgICAgICAgICAgICAgICAgICAgICAgICAgICAgICAgICAgICAgICAgICAgICAgICAgICAgIC AgICAgICAgICAgICAgICAgICAgICAgICAgICAgICAN CiAgICAgICAgICAgICAgICAgICAgICAgICAgICAgICAgICAgICAgICAgICAgICAgICAgICAgICAgICAg ICAgICAgICAgICAgICAgICAgICAgICAgICAgICAgICAgICAgICAgICANCiAgICAgICAgICAgICAgICAg ICAgICAgICAgICAgICAgICAgICAgICAgICAgICAgIC AgICAgICAgICAgICAgICAgICAgICAgICAgICAgICAgICAgICAgICAgICAgICAgICAgICANCiAgICAgIC AgICAgICAgICAgICAgICAgICAgICAgICAgICAgICAgICAgICAgICAgICAgICAgICAgICAgICAgICAgIC AgICAgICAgICAgICAgICAgICAgICAgICAgICAgICAg ICANCiAgICAgICAgICAgICAgICAgICAgICAgICAgICAgICAgICAgICAgICAgICAgICAgICAgICAgICAg ICAgICAgICAgICAgICAgICAgICAgICAgICAgICAgICAgICAgICAgICAgICANCjw/jHFbJ9vggVMdouR2 B2ooBu2XWn2OUA1tp1XcALBqNHongcFdXlzRLeGdPD HnMvnYGnb6QIrsSI3HzQPaE9TuC0AaRWcwGJ9FBTKxGLLydCAwWQWmDWEvVrR4RYEySOftBK6GpIHqKN zjRODvXVJdSfWoYSDsEUIjDWFyYSNzQQNTYM0GWyZtV7VcoZ35BQZKAn6+FStgywZkVurNVfF1ZEMiu0 MkDXj0SZ6GBKUuFnphi8HrTeycRJQTELqmGW4LJPX7 BFH6NJNiBn9IYPRrC516wbWdWW8MFc6OJvYgHR1dlq1KKqtzUORdCljQDdy9FTetLM8HtVOwFSdWuc5b rnNqrnPJd0JgtfLwhOLMcUevMYVVOXWmCBGkRQ8DKGY6SPMtCQ9dOJGvNVZyBvGcFOKYBF3NMNFhTHEw jPJdRPIuVOWQBJ0QHDirDUH9OMOrkpOcpXMqMRjcLS 9QYXJlbnQgMjggMCBSDQo+Aw5VGN8sm4BbMXepTFJgXE3ayj7GZVmHDfZrM0Q5lLLlH5I5MBqqNv6RRI GfUIMlNmFyONGZUEmiFD3LJA0kkwP5XR4GvOAzILRvLKEtmTGcYCg4J73vaBMbQCvoBQ1KWIL+Alida+Pg 4WPEUaAXWzOBCrKgLlNLTEBlNsC9WsN4FSa5RnT0Ny PI67wYaamuMkWAlnME6YZP3aBPJqKZJPPF6RaEMzuN5vsoOhEAGsIIFQZtEwN10ebZChXXKoMKV7EIQw Nw1IVZDmS9HonuLvcEorwsQnEAGgKHBIQF7GYFptpoTkjXTimKifKT26tHojJC5JMz8LNnDgPH0gox4P jDWrOr1HUWWtZE8YTWXvKIInICZxUBO8UKZvNfSoDD atOIWgZANzENI0TXHnSAMwFR7NZaQoZZZwRpqwKSxkZBLuNLYmzj9GSWTpYIZvAWH0SCVdRAMsSMHbGA rzZKNsVKBwTFS8YFJhDOKsZP9BIkXeRMVsZAGlALkmXKSdCQUwwu2FGIMjYYRmOAWaDsIfUYZuKHOrGV imKOTqHOP4Tlk2ODYqNEMqLH6JYyKdGXSvHIn6Lyjr KWRkCNTyso6UEIFhNHVpRWCgWZNiCTJkOKMvKInsVBIoPMUsIaK1SZNeUSVeCC2TNkLwPRHxBXO8QkVi MIZqGWBshf2SAJPwCDFmUyuhSQGrELMfSQQcJJupBKViZSKfIFe3TKEaCWYsMW5GVsVlJOSkDGWwRYWz OHFzZXIxxm8FSHPbBXBpBZV7UMZaOJHaQGWyHFcjCV JpBDF8OtQ5HZWtFZHmHI3CLtUnCLBiVUN4IjkrTSJbIETduw5KCYMjNLAaQSLmOfImDRPzXRGcYEgbNH BiPOT0SPM0VWPpRWPiER5ALdCeCHKiHqtbHWZmBBAzIHBwak9MRRHtPSWwChA1BGYfTFCuXKEwFSmvXO TbSUO1UVFjEYZfGGHpUB5BRmOzWCBtTip9VMmoTBTd EBVyfz3WKZIuLVVvNCkvXMVwMXHpLAHwMYyqYCPmBEK5VNX5ATLyUDGgKK0XGxAiXRSbDwheMFxoZYOx VNQhdc2VZUEoKZFtWOreTOLmMLKvLUYfUCyiXOQpLXIxDVaiEXBwOUYsMW3VRvVhHNQfOzNqMXKpPZEz OFJbua6OBIMnGCHcCOU1DZFySDDoVQBpWHv0fkIgyJ QwQEm4KX5NE7YcwiFjRwWXFy3Bg689BUIbMOIvAo3JB6hnDr9sDYBvTIQTPx5RLRg9INjqCIYdYoD4Zf DbCUUeUZF3JpQlGkAjLRZ4MSWqBOQ+UOs5Y8B1WrXsNFs4FLCqKADcStS6LjEpRuW7WXIxTVVhDC5ySZ ANCj4+RDvbeKMwbSyfFGVRXgIvPbEcCXxsQXZADa0E ID Date Data Source [id number] 06/06/2020 11:06:59 AM EST [facility] Hospital Name Value Range Interpretation Code Description Data Vicky rce(s) Supporting Document(s) Leukocytes [#/volume] in Blood by Automated count 22.9 10*3/uL 4-10 H [facility] Erythrocytes [#/volume] in Blood by Automated count 3.90 10*6/uL 4.1- 5.3 L [facility] Hemoglobin [Mass/volume] in Blood 9.3 g/dL 11.5-15.5 [facility] Hematocrit [Volume Fraction] of Blood by Automated count 29.9 % 3 6-45 L [facility] Erythrocyte mean corpuscular volume [Entitic volume] by Auto mated count 76.6 fL 80-96 L [facility] Erythrocyte mean corpuscular hemoglobin [Entitic mass] by Automated count 23.9 pg 27-33 L [facility] Erythrocyte mean corpuscular hemoglobin concentration [Mass/volume] by Automated count 31.2 g/dL 32.0-[facility].0 [facility] distribution width [Ratio] by Automated count 18.9 % 11.5-14.5 H [facility] Platelets [#/volume] in Blood by Automated count 211 10*3/uL 150-400 [facility] Differential cell count method - Blood [facility] Neutrophils/100 leukocytes in Blood by Automated count 84 % [facility] Lymphocytes/100 leukocytes in Blood by Automated count 6 % [facility] Monocytes/100 leukocytes in Blood by Automated count 7 % [facility] Neutrophils [#/volume] in Blood by Automated count 19.24 10*3/uL 1.8- 7.0 H [facility] Lymphocytes [#/volume] in Blood by Automated count 1.37 10*3/uL 1.2-4 .0 [facility] Monocytes [#/volume] in Blood by Automated count 1.60 10*3/uL 0-0.8 H [facility] Band form neutrophils/100 leukocytes in Blood by Manual count 2 % [facility] Metamyelocytes/100 leukocytes in Blood by Manual count 1 % [facility] Band form neutrophils [#/volume] in Blood by Manual count 0.46 10*3 /uL 0-0.6 [facility] Metamyelocytes [#/volume] in Blood by Manual count 0.23 10*3/uL 0-0 H [facility] Anisocytosis [Presence] in Blood by Light microscopy [facility] ID Date Data Source [id number] 06/06/2020 11:08:06 AM [facility] Hospital Name Value Range Interpretation Code Description Data Vicky rce(s) Supporting Document(s) Albumin [Mass/volume] in Serum or Plasma by Bromocresol green (BCG) dye binding method 2.4 g/dL 3.5-5.2 [facility] Bilirubin.total [Mass/volume] in Serum or Plasma 0.5 mg/dL <1.2 [facility] Calcium [Mass/volume] in Serum or Plasma 8.8 mg/dL 8.8-10.2 [facility] Chloride [Moles/volume] in Serum or Plasma 99 mmol/L 98-107 [facility] Creatinine [Mass/volume] in Serum or Plasma 1.05 mg/dL 0.50-0.90 H [facility] Glucose [Mass/volume] in Serum or Plasma 145 mg/dL 70-140 H [facility] Alkaline phosphatase [Enzymatic activity/volume] in Serum or Plasma 169 U/L 35-104 H [facility] Potassium [Moles/volume] in Serum or Plasma 4.8 mmol/L 3.4-5.1 [facility] Hemolyzed Protein [Mass/volume] in Serum or Plasma 6.8 g/dL 6.4-8.3 [facility] Sodium [Moles/volume] in Serum or Plasma 128 mmol/L 136-145 L [facility] Aspartate aminotransferase [Enzymatic activity/volume] in Serum or Plasma 28 U/L <32 [facility] Hemolyzed Urea nitrogen [Mass/volume] in Serum or Plasma 12 mg/dL 8-23 [facility] Osmolality of Serum or Plasma by calculation 268 mosm/kg 275-300 L [facility] Creatinine/Urea nitrogen [Mass Ratio] in Serum or Plasma 11 [facility] Bicarbonate [Moles/volume] in Serum 17 mmol/L 22-29 L [facility] Alanine aminotransferase [Enzymatic activity/volume] in Seru m or Plasma 14 U/L <33 [facility] Hemolyzed Anion gap 3 in Serum or Plasma 12 mmol/L 8-15 [facility] Glomerular filtration rate/1.73 sq M pre dicted among non-blacks [Volume Rate/Area] in Serum or Plasma by Creatinine-based formula (MDRD) 52 mL/min/1.73m2 >60 L [facility] Glomerular filtration rate/1.73 sq M pre dicted among blacks [Volume Rate/Area] in Serum or Plasma by Creatinine-based formula (MDRD) 60 mL/min/1.73m2 >60 L [facility] ID Date Data Source [id number] 06/06/2020 11:08:06 AM [facility] Name Value Range Interpretation Code Description Data Vicky rce(s) Supporting Document(s) Magnesium [Mass/volume] in Serum or Plasma 1.8 mg/dL 1.6-2.4 [facility] ID Date Data Source [id number] 06/06/2020 01:19:32 PM [facility] Name Value Range Interpretation Code Description Data Vicky rce(s) Supporting Document(s) Carcinoembryonic Ag [Mass/volume] in Serum or Plasma 45.6 ng/ml <3.4 H [facility] Levels of CEA should not be interpreted as absoulute evidence of the presence or absence of disease. It should not be used as a screening test for Cancer. CEA values obtained using different methodologies cannot be used interchangeably. This method is manufactured by [employer] and is an electrochemiluminesence immunoassay. ID Date Data Source [id number] 06/06/2020 04:05:13 PM [facility] Name Value Range Interpretation Code Description Data Vicky rce(s) Supporting Document(s) Cancer Ag 19-9 [Units/volume] in Serum or Plasma 26171 U/mL <35 H [facility] ConfirmedThis test uses [employer] CA 19-9 el ectrochemiluminescent immunoassay. Results obtained with different test methods or kits cannot be used interchangeably. CA 19-9 is useful in monitoring pancreatic, hepatobiliary, gastric, hepatocelllular, and colorectal cancer. CA 19-9 value regardless of level, should not be interpreted as absolute evidence of the presence or absence of malignant disease. ID Date Data Source [id number] 06/03/2020 01:40:50 PM [facility] Name Value Range Interpretation Code Description Data Vicky rce(s) Supporting Document(s) Progress Note [facility] HWNZOc0mUbORBkPg77/UCEzgDQEhn5EwIJviJIl1GPqoGQXhT0UiXXA6eM8tGEU8ALzBFgIcBkLaQPOh lbm [file] AgICAgICAgICAgICAgICAgICAgICAgICAgICAgICAgICAgICAgICAgICAgICAgICAgICAgICAgICAgIC ZcGKLxPHCeTBNyGSOtSBRhVZGgWYAxOR4XKGEoSQMwWMAdOWDtNJFeWPRbMJGnLJPnPPHzRNJxIJYjCF AgICAgICAgICAgICAgICAgICAgICAgICAgICAgICAg OGRgSQFkSKCmPPNvRXDuIFLbJIYmXNVkBGAwJWOpFJCeSK5UIJPjFALeGSIzIUVqWXFvXMHjGKRaIIIp ICAgICAgICAgICAgICAgICAgICAgICAgICAgICAgICAgICAgICAgICAgICAgICAgICAgICAgICAgICAg PSBfNEXiWKImIUJqHLJyEC1JGIZmQXBrNVTpMZNjAW AgICAgICAgICAgICAgICAgICAgICAgICAgICAgICAgICAgICAgICAgICAgICAgICAgICAgICAgICAgIC UzJSIuQEXvLTHmDBXhQLYuMZKvQRHcZWQwAG1RZROpSGYpNGJuNJFnJWHtTMAtESOeEPDdOIFyBRInXS AgICAgICAgICAgICAgICAgICAgICAgICAgICAgICAg ORRqVHAxECHuNQJlZCVqEMGqJPVmYUUpLNEzNMYlSRVhUMThYP6NMOZxUVYdWGQlDBUjQYNoGHXrCQXv ICAgICAgICAgICAgICAgICAgICAgICAgICAgICAgICAgICAgICAgICAgICAgICAgICAgICAgICAgICAg DSQjNYGmAWEyDHBrCVOiCOBkNL8OEJEwJYMwESUcPB AgICAgICAgICAgICAgICAgICAgICAgICAgICAgICAgICAgICAgICAgICAgICAgICAgICAgICAgICAgIC SgCLIdCNXxFUOkOZZnPXBtRRNgUOLwYHPaWVBaPA5GMJSsHZSeKRVfBCSbILAiBGQuEBYzLHSlDIQfWC AgICAgICAgICAgICAgICAgICAgICAgICAgICAgICAg JUXmXNMiCKQvSUBwJREeVCEcPLLxDFZzEZQbDTRmJKCdXEMcXZVnON5NWQRvRYKqVGHkDRZoIRMdYQRs ICAgICAgICAgICAgICAgICAgICAgICAgICAgICAgICAgICAgICAgICAgICAgICAgICAgICAgICAgICAg MOSwVPPcXGXdFFPkGUMpQCPgHSNoSU0TGNTlWUFpUM AgICAgICAgICAgICAgICAgICAgICAgICAgICAgICAgICAgICAgICAgICAgICAgICAgICAgICAgICAgIC EwTJKiONRlOKHbHUNlCNNtSVUoWOAyCRQbHWZnKWXxOU6EAF59vKUwk6K2KLUsQY4fqaw/Pj5JHOmdsr NcnRVxDM4NGvOwTW0bvp7BTdPxWZ2fif8RPHzGInPt M8X2qNFcBCTvMZHTRnDnW11oXRzcMz31VIkqWENmRuQuZMe5Jx8WTdDwG0kcDPPhPtU8QDTtYeL5TIDo SjTxAYjaVA7Ou2GwvSLyRPy+Tt2IBE3fq6XkSYkeHKZbLY5ltd7YGSePWsCuD2QodlG1AGV6CWFwSv5E TJQkKIEkpTFgMIBhUDDIXsRoF4AosY04KCXJOc2+DQ gvjqPoLjsAEsF3GGOij8KhPGo7MY9GINViRNn1dVQjOGSvW2Efp3HeNe91THRqImepIRh1ZMxbFPQss3 StSDylEWBhSJJySH6gNv5qLNFwLSWiXkV1HHYUJN0HXROvLTVqkDZvTQIyCMUIOQ0KVFnnKVX9BAGurx XdmIRnQBjiMO0ROYYswuAfGrDjSVLOBBk+Tr2MYI5c o2YaPXedUgIbJJ2rxy7QZAwDBmUwY1X0mXPjH5I0XGbySl8XRKLnGSLzXwEnMFAJDJixZJ9CFO5rlrZ3 DW7RjJBxEBLvEPWnzMSiQTq9R43haJExAMstVB8HNNA+Alida+Do1XCQUzFIIvMUZrCeYjULEKCqJbM9Mm I2UUd8YxY1RbBJ38xMjzvqOaJMipHK4GIQ6fDKUwRP JELV7SqYMlyI6wmsRzYNYzCJZWVxTxZ09usRXiHLZpWKPvQYKcEc5UBGEnN4VoijSjhHkazmLkKYUeKL KVYE7EURylbeCqxQWvvGsfGX47aStdHA6QWr3UEaGfKB8qof1QpNBsCf2VUWReXs3YOCHxMXRhRYKxHA Q3LFBtHsDhMVqrTWRdZQRaSIT6SZZiZOCaNX4LXqRz GMPyHsU7VCSuVZCjQXTwge1JBNAoACMtRaXgRAKjENReEPRyCKojZDUuGFFeGOY2XBHsPXOvJS7RUsHq UZBnUSC7ExNpRESkTHJgbr3ETZVuFWEbRwkqDDNuXBTfUIKkXDpkNSXjTJD6Cvr0AQMdDSSzEG8GTfTt QBOxPCW7EBtjOZIdILEoek4LZQZiXRXtErY6IRNmCF DyBYGrIHzmGDTlVSG0IpF0QEFxIWAzDZ4JHkLpAZEpNCS6GdRgKGJkCDEitb9NTBUlVXVjCza2XAIcWQ KwTDYdVSozBWSbEET7FTv6QUCkJQMvOH7FQwUeBHBuREymJCEhXMAjVBKgpr6JQUUoGBXsCFRtKSUvTZ TfNCZuYXplODDmMMK7ZEE0FHLmWBIcJL2TTbJhHTMb JxTpKeNwPISwVVXpoa2QVSFqLQZeYJXhRECxDJOoVKVoYSpvPIRrWXSzKZSpMDJeYXCcEY6KKoKxOMEe GnH1JVPrZIJpSROfpe7STINyWPYpWZS8KVXbQXSgMLFyFMvzUSFaXXPeBSUtIXDgONQpCA0OVmUjMPXl XrQnOtpjEVOnHDImmx9NVDAuHZZqUviiLeZpIZMyGK CdBKohSTQqBKZqEax2TUMyQYAxRC3WZkLfXLCeMnV4LROzGZSvSRNapg3OjEKnqKmzvk1YFZpSZm4KoQ xmGAF4FNodDu2qmJGhVmLxTVHTPw9SzaOoFOFmRJZBIJnpTEDoAQUjOLC0JjR9LoO6TwVoZtPjMVr1Fw JbA4LqKTJ1BWF1EyN6UQN3GpT9UNFcLgQyGrA1CCJ8 KHfyQGYvJZNnJns8NeX+VC7cFAb+Xq7An0DpweH6qfSwEFciDPB0Kn4DMLNQJ8JZIm== ID Date Data Source [id number] 06/02/2020 12:07:08 PM [facility] Name Value Range Interpretation Code Description Data Vicky rce(s) Supporting Document(s) Progress Note [facility] WDJZEc6qQiLCBzYi15/VICffHKJty2YiZVuvOPe7QNggYQJzR5PvLDI9fJ6eQIK6QTzTAuKvGrPqAEAa lbm [file] 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/EsjrcohrAD7KRmZkYa8UTPb045G4kD1OhxUZIQGh/p+OU0ctJbQWCRmVooF2qZDJt3Nab8uk5iyd [file] 5G62MKLf/TiID+CD+BA+Loraine+OH6keyvB/TpXpY/gN/CY+mvrgTV3Jx6Os7vbs5/dOXy9S4NY6Rj/maría/C7 +Bw+oarIkGV2Oe+gOvZF/G7M6FK8uamNezY/xJelRE cYqzavXuyMi9FVNU6YZq+s8pnIbhiEkE7dfeC01ZLtYHkuXwfcHF5sRUcgjfOukTAPRZG4hK1PkRupcB 4S9mjZgPdP2276Fx0TK+X4FwwwiqVFoIMvJKRuoh4c8RwUjvstmpRNW6EzxVF6qYf8cEKTYrSP6BdTfB 41kkqb0NUi3VIJsFVwBaU6NRtU8xl3SaLDgPHVELlV Oxo9dlCWTW0CvZIzl9Wvz8oNHnYst4QKNQnIQwDd3gKgqH81pfB1kkurZjjT8EVLRViLFYPOAFTOPiM1 tsefVSCwGKNyxcpb5pvxLpdsibekyZagpKXJDgsfgKXdBRdKXN1YZ6kwckc2OIOzW9Ea0BuzyugxmHak 15JhMPwT7cJplloQwhvuEW5dElMjTlX8sSzzaFqwBA qu02hRngdM36laEeXqinDYksWFNgMYaRiLzh4sCWvzxMkyBDxDHMkcHQdiXAzInq6wxk0Kxacrq2bv0a SPSKwaabflTTjtTW+JCMPfPSORCLmpx5E8uKXYYaneTKThRWU9BTNSVzfKRVXX0wtiIhdt235UMUURjv [file] COIqERs2R1G+BJ3sXHf+Ts8Uf8OlazA6fjRxCEx0ZPorOp4FBFEHC4GUMf== ID Date Data Source [id number] 05/31/2020 07:49:00 AM EST [facility] Name Value Range Interpretation Code Description Data Vicky rce(s) Supporting Document(s) SARS coronavirus 2 RNA [Presence] in Res piratory specimen by SHAWNA with probe detection POSITIVE [facility] This lab was ordered by [facility] a nd reported by [facility]. ID Date Data Source [id number] 05/29/2020 12:36:34 PM EST [facility] Name Value Range Interpretation Code Description Data Vicky rce(s) Supporting Document(s) Progress Note [facility] JEQTRh9hOaAHPpHx99/WTKvhSSOfx4ZxDVaqNSk5SLovDJFcK2ZyQMS1eI2iETK4PSgUYaMyYeZjEZP1 lbm [file] 4+GKswrBAphHfiYBXMJjNgHEdbXTdqLMPPGm0R ID Date Data Source [id number] 05/22/2020 12:29:02 PM [facility] Name Value Range Interpretation Code Description Data Vicky e(s) Supporting Document(s) History and Physical [facility] KZMKYu9mImPEGvTf38/MXOmlGHXmw8TjYZymHWl4VXrfMXRnS3QzQOE4wV5oAGD4HTvAEkFeCaWeMwBr lbm [file] OEfj2Y/KveuZuu3PZ6P9W//plastic technician+WWY8iqzOxyc3g8q SJ8u9zxwhFoxwrCd+5NFTvnH+IgRSCyPndLyUBAo5Kje+CIjU/NuTLrJvkI4FVmCuEaE/UgOjiFaYk3D AzYyMgU/rhJUAqEZk8h3v/KUW7DRTFE1bp2sJzSMRiZmUeCjQN/xeC7coDy2NwBN2KKAuApVpIyzVpZI X+yJiUzUc9QD0HM9+itGnWGX8yxrfhCR+DoQGZmCDz xtDMqfIJv9YKn+6IyOTMEHndGRKfigMzoyBV/nfKQlad1gek1ea6bCmJAKVv0hOcum2SQIPCurvCCXKT eCHeegC7YvCJy1CNe+4KfYQBDLDoTmRblgk5b6Ph9MGWIsMFEr8GNkSpYvkBLR2bKSavlXXFeSPU0Hif 23auZF4RAukTAZviXPJwanwSV68+qsalDqrCETOiAj U/ClzujIWnypMzIyBV/poSaJpLs7UuMQ9XOEyKjG/APbrR3qqbGYNzzNFbmOcDyDsDdZeRzEkARIUNbO GngqE3BnXSl0AFk+9EkSZQVWpiXQJsaAZ7GjE3PM1j78FbA2BFUrbUAnT6TzPx5axFMwgJei4KOu+[place] [file] ICAgICAgICAgICAgICAgICAgICAgICAgICAgICAgIC AgICAgICAgICAgICAgICAgICAgICAgICANCiAgICAgICAgICAgICAgICAgICAgICAgICAgICAgICAgIC AgICAgICAgICAgICAgICAgICAgICAgICAgICAgICAgICAgICAgICAgICAgICAgICAgICAgICAgICAgIC AgICAgICANCiAgICAgICAgICAgICAgICAgICAgICAg ICAgICAgICAgICAgICAgICAgICAgICAgICAgICAgICAgICAgICAgICAgICAgICAgICAgICAgICAgICAg ICAgICAgICAgICAgICAgICANCiAgICAgICAgICAgICAgICAgICAgICAgICAgICAgICAgICAgICAgICAg ICAgICAgICAgICAgICAgICAgICAgICAgICAgICAgIC AgICAgICAgICAgICAgICAgICAgICAgICAgICANCiAgICAgICAgICAgICAgICAgICAgICAgICAgICAgIC AgICAgICAgICAgICAgICAgICAgICAgICAgICAgICAgICAgICAgICAgICAgICAgICAgICAgICAgICAgIC AgICAgICAgICANCiAgICAgICAgICAgICAgICAgICAg ICAgICAgICAgICAgICAgICAgICAgICAgICAgICAgICAgICAgICAgICAgICAgICAgICAgICAgICAgICAg ICAgICAgICAgICAgICAgICAgICANCiAgICAgICAgICAgICAgICAgICAgICAgICAgICAgICAgICAgICAg ICAgICAgICAgICAgICAgICAgICAgICAgICAgICAgIC AgICAgICAgICAgICAgICAgICAgICAgICAgICAgICANCiAgICAgICAgICAgICAgICAgICAgICAgICAgIC AgICAgICAgICAgICAgICAgICAgICAgICAgICAgICAgICAgICAgICAgICAgICAgICAgICAgICAgICAgIC AgICAgICAgICAgICANCiAgICAgICAgICAgICAgICAg ICAgICAgICAgICAgICAgICAgICAgICAgICAgICAgICAgICAgICAgICAgICAgICAgICAgICAgICAgICAg ICAgICAgICAgICAgICAgICAgICAgICANCiAgICAgICAgICAgICAgICAgICAgICAgICAgICAgICAgICAg ICAgICAgICAgICAgICAgICAgICAgICAgICAgICAgIC AgICAgICAgICAgICAgICAgICAgICAgICAgICAgICAgICANCjw/jLBzE0ciiRNphkG9J4sgUh8GMn1JXI 0pb5TcOMWhKZernpNsGocEEsLwRWReGifRUdx2SVwfMK0HyCGhR2BgY9SfPLuuGQ7FLLCmJRJteWJxPM PbPSQfEiX3QRIoTCbpKM7GwMVkIGezJZIgOABfTxPo LPRgNZFfDFRyVOVzWMFNEY1AJeXkV6QehR81WTYEHz4+NCuxbpHaJraQYaP4XNErf2SeVEx0FD0ODEPj Vcpmq0AlQdizAFTLHMtoUX0KIGA3IHE3TQZsDq4ZIZUjP943phNdBY7GRr1MQpRqKF5uph1EEefpFNVv SwwMQxm7IQtqDR3IqIGuZAvRJfXzLaynLDV9hZhwye DEiYJjpYEjWK0LITJ1WLNdJiO5GoJyHwRnANR6DdLiYR3hKGitHV5XOVS4SSnaLJYxQWRlT5zHPcFaLD LoHhBilMlnQV3JKkFaP1UkeaPldKByZRAuHGFYUe9+WYoocbGrOhaZEkTvTEBup5BtKAr5OM4UMBGnCE vqGK1HVDUntB0sXDziSQ6MJdCbBhFyNMKWMoAiO46f tPIwSCn3N6JpPeWgLOObZeuuSYEhRRjhFpPoWIPlShUoKHcaMR5+ID4+MYveTE1AXEomugHdUFFbBg4A DSFdSJFtZE2tOEBeGCCxR2M1wZxuYZGCYnQnE3pyyeigTJ9iBCEeD527lTulyiLyVEY5KDXlXr1RTYDu AIY6NMIexXSdCyylUBFOVJthHV8JcTGiIVW7uX6jLO ibBUIsPWXkW8xKApTzzOtdDY51dAxoaoPkoEVaKJp+Cj7AHZ2al6SxXPr4prKqUSjfYBGrANerMCEzYX OgUBDiXAY9CLT3YWJQCpJhCAJwIUKgHRokNWYdIJFuvv0JPTMnZCNrOoe8JEJkITSbAQRvXCddVKTtLD W0YbLmAMNwJASeZM3FJcLnSOMuTUToWRhxNPTpRABv ps1YVRPvQZDuThvuZlLsQBZuOBWcTXqpIBKfKEPbTEPlDYVvNWReNG6TYzRrDKKlEQZpSYeiHLQjCNPk fm2FPKVcVATbAzUpCmUzEXHlAAFtITkyVGVbKXV6NJVzFKJiOTJyOI9GGaNxPRRaFKjxOhzxJPGxIWZo ab5ADIZyCYNyTPOiELIyVMKxCUXnBIeaURErJQYdLZ Z3AVSnKOZiYI1TJaZaBMLlRED4OKiaLNRgPZAgah9ZSPWlTNEmXsG6QOCeKOXpKAAcMEfqXONvCOBqFM f2PWFvMDQqXG0YPtOyROHmIDJ0XxDrUXZhTFGwbw2SSVLcLPBnAJCgVZCjAYOxBTJaDObdTSRiBUJ8La Q9WNJiEKWkOM2HPgYxBDDgUAJdLMYhGXXyFGKfqh7G UMXuRVZnITA8GkSiCVHjWFGeQBlaFWVpDXO5NRN0NPFrMDEqOP7TIlInTQTrQhR9ZWVeFDRzTBGnyp2A LWFxFJMcFdT0FXAjDBQfUEFySEnzGSKyGYP9NWw5ZMDyOCTlCS0IDwPfSWOdZrz4NTgwMBRhUPLoub7G KAWmPLWsJhf4TyEsRMCgTBWgUWahEFAzGBS3TsryNT YaUKQzLO2UYkUxGXVqAhb7XcfaWVVlMQSvxl8QBIScXZSwLPklNGFqAYGiEFWcITyaAHNfYRR5ZUW1UK WfCWGaAB3ZIdSlZBhaJZAEEfd3DPzfU7x7QYNsQY0TE8Pcu9RtAnCaZVMXBCbmHV1nxmUyDTLaOc5QJ8 aHLgggRWU3VTB6DXGgYcScTYByRxKgYELgZKz1M2Ib JOu5Nj9nLBQxKMQkSwG6OQRtBOGzImOkMHP7YIH8IOvyECI8VwNoWiIbIG1GVm8EVeL2WIR1cEBrSm7H DaKzWHEZGkAoOX8WMFl= ID Date Data Source [id number] 05/17/2020 06:43:10 PM EST [facility] Name Value Range Interpretation Code Description Data Vicky e(s) Supporting Document(s) Discharge Summary [facility] FQIFVc2pXaNITbLd25/KVYztJGGds3YqPBsqMDe9BFuyBIXnS5SlKWC3eB4aNRL5CUgJOjRmThRmDjT5 lbm [file] AgICAgICAgICAgICAgICAgICAgICAgICAgICAgICAg ICAgICAgICAgICAgICAgICAgICAgICAgICAgICANCiAgICAgICAgICAgICAgICAgICAgICAgICAgICAg ICAgICAgICAgICAgICAgICAgICAgICAgICAgICAgICAgICAgICAgICAgICAgICAgICAgICAgICAgICAg ICAgICAgICAgICANCiAgICAgICAgICAgICAgICAgIC AgICAgICAgICAgICAgICAgICAgICAgICAgICAgICAgICAgICAgICAgICAgICAgICAgICAgICAgICAgIC AgICAgICAgICAgICAgICAgICAgICANCiAgICAgICAgICAgICAgICAgICAgICAgICAgICAgICAgICAgIC AgICAgICAgICAgICAgICAgICAgICAgICAgICAgICAg ICAgICAgICAgICAgICAgICAgICAgICAgICAgICAgICANCiAgICAgICAgICAgICAgICAgICAgICAgICAg ICAgICAgICAgICAgICAgICAgICAgICAgICAgICAgICAgICAgICAgICAgICAgICAgICAgICAgICAgICAg ICAgICAgICAgICAgICANCiAgICAgICAgICAgICAgIC AgICAgICAgICAgICAgICAgICAgICAgICAgICAgICAgICAgICAgICAgICAgICAgICAgICAgICAgICAgIC AgICAgICAgICAgICAgICAgICAgICAgICANCiAgICAgICAgICAgICAgICAgICAgICAgICAgICAgICAgIC AgICAgICAgICAgICAgICAgICAgICAgICAgICAgICAg ICAgICAgICAgICAgICAgICAgICAgICAgICAgICAgICAgICANCiAgICAgICAgICAgICAgICAgICAgICAg ICAgICAgICAgICAgICAgICAgICAgICAgICAgICAgICAgICAgICAgICAgICAgICAgICAgICAgICAgICAg ICAgICAgICAgICAgICAgICANCiAgICAgICAgICAgIC AgICAgICAgICAgICAgICAgICAgICAgICAgICAgICAgICAgICAgICAgICAgICAgICAgICAgICAgICAgIC AgICAgICAgICAgICAgICAgICAgICAgICAgICANCiAgICAgICAgICAgICAgICAgICAgICAgICAgICAgIC AgICAgICAgICAgICAgICAgICAgICAgICAgICAgICAg ICAgICAgICAgICAgICAgICAgICAgICAgICAgICAgICAgICAgICANCjw/uMEoQ6xcoBRfbfM8D9igIt9G Hd9QDB8vn2IuNNLeUVgkvkRuMbyJHpIqYJKpCtsFUjb4LHtoVR4LnJDlK6ZzF1JdTCzzBX4OJIRtAAOw kDWyUAFcEIJwOoU1RMYwCEaxYI6LlGMsRYizRJWaFF XmDmJgFQFrYAClKMDbSBRzIXDMPZDvNQZvLhRmSLmnCS8Mz4HrwZO1DBh+Vi7DDB3nw7XvPQqwHWAxPJ 9yvb6XOBoAVtUaG9XlffR8PLK7KZScHs6YUHBvVXWgdYCyZQRoVJHDBvDpE3VqqU80QNVZIk7+DQplbm RaMzxCYrQ2PGWex0EzDTg2HY9JTHFoJEl8xRJjONjg E7otriwcZPJ5eM5zrojgXifbA4BwiEJGLUTotV4AOXEbKD3NEUC8MHEbKcW5MqIuQvYrSZW0LEQnYD2y JBtbKJ5XPVI7EBqzWAOwLIRcY5tTQyAlFOKoHaTbiHpjOH8FZxMmG9CerhStqJTfHMJcEIWQQp8+DQpl ccSzIyoMWtFjWXJzk5JhWAx5QT0QVLYgDUyvMB8CZK LluP9hISnqLO1LQsPaRzLkBUOUEtEkN77juRUtKLe9Y0RpMvTmAOGrUchvWCRbMKjwSeBpRQSxBaTvKY ogID4+ID4+TWzsMU5TRDseesQyOPOyVa5FWKKkSELrCW5kEUZzMUObP5Q1kWffVHVVEhUpB4xkiarpIP 6hSCUgS001bIjaerHqCXM3RKFuYx2LBVUaZWB2SGPl oPXaNkuuZYZDJOmdMD5TwMYyFVO2fU1jIGcePPZiAMOqC0jTTeFczMdeBY48jSgiixWgvSFvFIv+Pg0K CU6kd0MqAQf0yhXpFEtxWXOqHAugQACvOZErHKQcJGT0IKD1QRANDmFfQRIsPOQjAOemWSQoOEQeqm0F ORUcWLMsWVE7FAHdXFKsWJTjCWvqPSIfDCElGCY7ES DpEDNtJG9QJxNoUIGbIDDjOHavMEUpYEJfkl1VMBQbBNTpCIHfCuJwBYRuLTSmMJqfGNCnDCN2ENPuUJ AaSKQhKH9TCuAiFGIyXRi7POddNLDjOJGjfa5MVUIaIAXuAJSuNRVyPVMcGZJxXNjwTWXhBTBrPMR6GV MhZIEbRZ5MZpPwBKAuINL3DZguRDCrZWGgkd7QXGUa XFZuSTB1HtMvLRWmJQXnJLvlRXXzEJD1WYA3VYSqVSToRA1ZIsSrMVZdEZI4NuneJHXpRMIaym3CFZEj DSEzUGN1UkTuXSYvRFGxUWcxQRFgEPB7OuReQTKePVGzOL6ENiXxGDCvHKR1AGLcLCIqZRWsrc8OEZTx JWVwAyu6EbXbFHVyUHVeOEvlKYJhJDU9JKRiYQAhBR LcRN1OJsWpZDBlNZbpRVObVBRtGGAzpm8YQHAfZQZlYNAnSfEbJPDkWCKnGNcrQSCyMGP6ZfirWGWrDL HkEH9JHkRtGIEwWUy2RKynOUHwKWMklg7MXQKmWIRuIJZ6AjMgOXZkIYAcKKzyWXAzBLPoArIjRBZjSS DbBO0CKkRnGAQvNsN7QuZpIOGnTJEjyw0LUNAwFADi EJZeBfGvFZXvIIPvNPzvDQLdDJKdTEQ3EGQcJABvQQ4SGhZgLDAmWxK9QkMnLHFyXZZebo0QAPEnFIQw GrPjMpEnJDQiHZUcUUhqTLLbWFQiUZT4NNGoQFEiHF6VGqGbXPugOLHYMtq4AIsoH6t8CEObXQ0ME2Bd t9RsEiCvFIMCNBfxHQ4tggUsYXUhOx7DC0dEFsg8VC SqERQ0GOReBuWsBGSfXNA0QMN9SGbdTrU2LPIeUL8oWEj8ZKDaKVMxADV3QfTlC9FwKIi6ChXyStEwNd GnJPUmOkXjPR7XYl0IDtS9JLH7tRBrPr9EKnGvHIkDSrZmWZ0NWZh= ID Date Data Source [id number] 05/17/2020 05:11:30 PM EST [facility] Name Value Range Interpretation Code Description Data Vicky rce(s) Supporting Document(s) ED Provider Note [facility] CVFXNv8lPdPVWnBi14/SMYnfAIDda0UpSTlwLZe1WFsaHGBmH4XcKTF9iP2vAYE4QMsNKlXxHiMkKcF0 lbm [file] AgICAgICAgICAgICAgICAgICAgICAgICAgICAgICAgICAgICAgICAgICAgICAgICAgICAgICAgICAgIC AgICAgDQogICAgICAgICAgICAgICAgICAgICAgICAg ICAgICAgICAgICAgICAgICAgICAgICAgICAgICAgICAgICAgICAgICAgICAgICAgICAgICAgICAgICAg ICAgICAgICAgICAgICAgDQogICAgICAgICAgICAgICAgICAgICAgICAgICAgICAgICAgICAgICAgICAg ICAgICAgICAgICAgICAgICAgICAgICAgICAgICAgIC AgICAgICAgICAgICAgICAgICAgICAgICAgDQogICAgICAgICAgICAgICAgICAgICAgICAgICAgICAgIC AgICAgICAgICAgICAgICAgICAgICAgICAgICAgICAgICAgICAgICAgICAgICAgICAgICAgICAgICAgIC AgICAgICAgDQogICAgICAgICAgICAgICAgICAgICAg ICAgICAgICAgICAgICAgICAgICAgICAgICAgICAgICAgICAgICAgICAgICAgICAgICAgICAgICAgICAg ICAgICAgICAgICAgICAgICAgDQogICAgICAgICAgICAgICAgICAgICAgICAgICAgICAgICAgICAgICAg ICAgICAgICAgICAgICAgICAgICAgICAgICAgICAgIC AgICAgICAgICAgICAgICAgICAgICAgICAgICAgDQogICAgICAgICAgICAgICAgICAgICAgICAgICAgIC AgICAgICAgICAgICAgICAgICAgICAgICAgICAgICAgICAgICAgICAgICAgICAgICAgICAgICAgICAgIC AgICAgICAgICAgDQogICAgICAgICAgICAgICAgICAg ICAgICAgICAgICAgICAgICAgICAgICAgICAgICAgICAgICAgICAgICAgICAgICAgICAgICAgICAgICAg ICAgICAgICAgICAgICAgICAgICAgDQogICAgICAgICAgICAgICAgICAgICAgICAgICAgICAgICAgICAg ICAgICAgICAgICAgICAgICAgICAgICAgICAgICAgIC AgICAgICAgICAgICAgICAgICAgICAgICAgICAgICAgDQogICAgICAgICAgICAgICAgICAgICAgICAgIC AgICAgICAgICAgICAgICAgICAgICAgICAgICAgICAgICAgICAgICAgICAgICAgICAgICAgICAgICAgIC EfDGUcQMNgTMLdBDHrYVo1Q9miPUSiHGSoJY9qQBa0 Jz8+HZtDZuCwVTS8gaOcyD1OFV3pq2GsNWtnIMOby7KtNXp9PI0AKIIgYXezJZ8CROxsir3KFHUyMTUi yYJLl1itBjMuKCD3MWBwGuflQD6TOSEaP6uhitVnYPKhNJBQIYlaUJUMEMmhEYGSCZBrLGUjBuTmHoPs KIGnTCQjJUKZNHM8GTMqDrWxRLBfHSBiGhOiNYLLCI XxIPSoSyObLWLlYDOaNhmdQKCIEBG7SMHlXnKmZGWrAFFuKkCeDINNJGI0HINjJsVpTjSdANNjJmprLN SOFK0QCdXvB1BrlP21CUC2UZl+Yj6FJK4zf8JvBZo2ZsGtPF2usl8SKUzNMbGkU4YzpzS9VWI5VVCvDt 1ALFCuIXSkxSD2VIRmKIAWLhVsN4XzcM97XSRHQt3+ YRztgpSxWqoVPgA0UGRpq4AaXNj8XF1OKFQaHSt6mMEhSKQaVAEvzrdcWLRcSv70LTNhVrebSrEoYOHy IJKYPKKdIDXwFS9XBOX9XLFmJnG8ZqYwIiYrUCA1OWOwGQ2dAYqrDK2BBKE7VBmrTLSjHNTmH3jNReJw XQzkTGIegJczUU6LHeSkB2HkqxEznSG9LoDcFDCOPy PxB29heYHtGHdjRPQFATq+Pe6FQA1ls2OvASi5FFNbOI1mef9PSIhQZtLmR8JntRjaLBKJKENsp3KnYU MkWY8lvUYgGDZ9XERykJOuoBTkJrWCYOUuYEETRJDgaSAyPi7hTC0uXQVuZYLzWyXiGZSXFD9JVUHoHM GqlVIqVYKoJOChAxFoBPcmDREoTgF3TF02bHkmYB8S VIWpIMJdCW12IYT0UIUzVp4KFCPnEJVmqmE5BfUlTQWCNoCxZ14glCCdLOanESZJYUl+Vv5YOX1wb8So SJd4EEWaUM3bxf7RZItMYvLtG1PtwWfbLXGot0OwYDOpOWYxFaldVgOwCNYjUjTLHS6wYF3wCUkDNJCR IbFzfOXkNs7xDU1bOHSlFTBwGiX5BLPQVS8ONBJqAR AtjCIbETK2LVHkStBkKGwvOOMqTqE0QH02wJlqAA6BJVShXQDtTY10EDM9PEZzIj5GJAFiWYJskiH0WR PkKIZXYrXpF44jpRHmBfGoGGDBTCv+Ut2IPT6qd9EqIPs9MAPxNN2sxn3QDSeUUsCqL9FbeBajWXRNSQ NiwBKcUWFBa8KgrdOchGFXdBkgkDXDJAJuwjQvglSj cecvDy1uDHXpSSDaUVqvVnNxFVGkUPlfVxILLYjNMsJfY2Fsw0PbZyGmPLSbCVSuQ8mCCuIoWEM4IwSn nQagXN4NObLgO0ZrluZvyYA2RjTvEAJKGjQlK5XaLANpGDsqPGQJOXf+Ki9YUA0jl2NnFLu4CTMiJU5y zd3WKGqRUbRjH5M1hUMoS5K7TRzhEz0OBEAyDKOlFG UyJHZOBCkyEH1AFB5fcfG1XK4IoAVhHGNnZFHhaTTuWEa8E92xzNZwONgfIQ7ZVCB+Alida+St9CHYOuAP EoCHAnGzBxHCBYSjKiX4QbY5CFe9OnE0EoED19wAjwbrYjNNvoKC7ATN6iMKFyIMKFQH9MmFEyeU2mlg Q7XoDfCWSVTvHnP86wfZVvILGiNHL8AKEbEt5EBGMc D7DlmoXcyRhtpmLaEMMoASGDXI2GNVzjifLlmSDopMvzAM86oYkwGU0TZd2GAsWxEV0uhr8QxBFbUk3E VHE5Kd9YREBwXUOaMMMpTOE6DKByLvUyYQbjWYQqXRMwVXQ1LDIaAQEcMR8STpHjOXVkUlS9DpqmENFd TKLttg1IKCHjOWQ6AUH7UYZaOWQhDAJbEWwaRZEfXG QoIJQ6NOOsVLYaQC1LAhLbGSHlBXD5WzivCPTnHBQvkp2DXLMiSEYcXeVyJwDxESHiBJZjIPzxNKExNU J1QUiuUEJnLIZfJE9BEbOyGMPtEPUyNYTfJQCdVOIuug5BFNRxAPWuEMScEGFiJUEgHMKoQPacKGApMI Z7VsI3MZExVNHzUR8VIlKmULRuPCL9BUHmAFPgKSSw jo5HFOJsRTHjErLgDnUdSEJbIGEiJJnvTGGyCHC2KVv4COQqMTBgYC7HCfQyRDGqSMMzEFLlGHXrJLQa th6GBYUaIJHvKdGoOUPbHYZtSVFrNFwlYUIwLQG3KVW7ATYqXVAmLL7KLsCnSLWjUOn2VlRfWFEqEFCa ed5NEUQjKZNoPGwrNsIzPTClCMElFPhhZNAaNIKhKU C9OKDpKIIjLA3ABwXnBUToGkG5RkWtWAJyJLMtyq2YQNVaLQJfVZQ2KSMeDFLnXHGcPPnpOZBhANT9Yh xxKQGhJVMhTP5NBgQjGBJcZdxqOpFtBATuBQBnzc7CWROvZQCyXqC9VwIlDNXfCNVgRRsvUCEgCHEdNW VzNOAjAUJfTG6HPlIqFNKfPjW3KottEKHpTZYyzb5M JNFdVGYvFvHrNdPeHDVbXRXeLGlsWVMvQBCgMODbIMTzCAWnPH0ZMdQtQZTnYrGtYSHkATQqIMPssd3L MFHjOCOuIqD6KsUwPHBdOWRrSUmuGIBoKPK2YnN7BJUpXLVcOM5GLqRpWRAmRdb1HDOdHMCiJZDvpb3G EKCjHYH4TCu8JUGdROKuLJGnLGruHRVdYRRtFVg9AG KdDDQrNU9KDvBjZMNtBYDdRLxkZVFnPLZsrh3TIXDwTMX3LdXjUkSiVARlNLZqUZneJQRlLHQ1SwK0ZG AcLNLgOL1WVxXjNLLlTBR2NdJhSMQcSVMxsj1AZEWqVBS1PcVdWDSoEOVqOULxDUgkWFIvPKX3LYX4FX GrAZRtUB9URsYfSCLtTRuoZGXzTCItPFGsew2VELKr IDR5YMM6IaPmUOYoVBKoFNdpQGAlRXJ7Soh4XUQkTMVjAV1ROgPiJGGkSVs1DtOjSJYnSVEyrq1GHOOj XFG7RQahYwZaTNNuCZRuSXhfFJCsTGSoDAQ1TPAeQPZxPA9VIzOxNNKoVtV4QSxoKEChWHIlkf6GELJa DFE5PAvoYfWlORZbDIFoIBxgAKXeSRPeAEQ9ADSaPQ QsPM2XRmRrYZQrLfDyZcEaKBErVSFdwy2AIACbTFO6FuYpISCeBTIxPLMuPYrgUMSuQRUlSsJ2HCUsDM NmLE6SBvMpOSOmOmU0ARZpIZGaUKIgrg7WZZYwTAT3OflcCaGeVWAbNFXyHEmgSRClKTW0BQN7KSSjRZ UgTZ2TGlJyKXXiFgO7TAGcJXIdFZNjtd6FCNEoTDT4 XRz0YFKrVVEzCDRaZElqFYVkYUU3YXZwVDIpXHJdBS8LEtXwAIZfWjFwWWAsRWMcODBduk6TFUYhBXA4 UhW2EPQaBHYvPGVyFRjzEUTtGCJ6NIprRRNjCRMiMJ8JUhMhDGeeYMFEVus7ZZcjV1v5LQI8Qq9JN1Kg v1MiSrXtIUJCYJppMY3juxInNKAaPj2GC2jCNev6Em C5HPObXHIuSdJ1VPHoOiAbYJm9NlFlAdGrBETvVc8vAZEiUebwKBY2K2IoXEQ3EGIyWMEaSNpmOCDyKl TpQvUsJfEsUR8JDc8OQoK0SPZ6fWDrPq9MZqO1FSHFZmDvNQ7YHRf= ID Date Data Source [id number] 05/17/2020 11:46:28 [facility] MR BRAIN WITH AND WITHOUT CONTRAST [id number] FINAL RESULTInterpreted by:Tammie Lloyd MDINDICATION:74-year-old female, examine for brain mets.TECHNIQUE:Multiplanar multisequence MR images of the brain before and after intravenous gadolinium. The administered dose of intravenous contrast is available in Epic.COMPARISON:No pertinent prior studies are available for comparison.FINDINGS:A 2.5 mm nodular enhancing lesion is present in the right superior frontal lobe without any distinctive restricted diffusion and likely consistent with a metastatic lesion.Another lesion more inferiorly in the centrum semiovale of the right frontal lobe shows a restricted diffusion on DWI in ADC map and also demonstrates some mild enhancement. This could represent a subacute infarct or metastatic lesion.2 small nodular lesion, approximately 2-3 mm in size in the both parietal lobes. Likely present metastatic lesion.A chronic infarct is present in left periventricular white matter.A 4 mm size lesion in the left lateral cerebellum without enhancement but with restricted diffusion likely present acute infarct.A linear enhancing lesion in the right lateral cerebellum may represent a subacute or chronic infarct as there is no restricted diffusion on ADC map.A linear enhancing lesion in the left are posterior cerebellum demonstrate a configuration of some branching and may be related to developmental venous anomaly. An associated ischemia cannot be excluded.A chronic infarct is present in the right periventricular white matter.There are no areas of abnormal susceptibility in [...] and mastoid air cells are normal in signal.IMPRESSION:Multiple areas of for restricted diffusion and enhancement as discussed above. It is difficult to differentiate between small infarct and brain metastasis. However, it appears that lesions may be following etiology1. Bilateral parietal and the right superior frontal convexity subcortical tiny nodular lesions most likely metastatic lesions.2. Right-sided centrum semiovale restricted diffusion and enhancing lesion-most likely infarct rather than metastasis3. Left lateral cerebellar lesion most likely acute infarct4. A linear enhancing lesion in the right lateral cerebellum may represent a subacute or chronic infarct as there is no restricted diffusion on ADC map. Differential diagnosis includes metastasis or DVA.5. Left posterior cerebellar enhancing linear branching lesion, possible developmental venous anomaly.6. chronic lacunar infarcts are also present as discussed above.Recommended follow-up were MR studies to assess evolution of these lesions.This document has been electronically signed by MONAE Lloyd on 05/17/2020 11:44 AM Name Value Range Interpretation Code Description Data Vikcy rce(s) Supporting Document(s) ID Date Data Source [id number] 05/17/2020 04:52:13 AM [facility] Name Value Range Interpretation Code Description Data Vicky rce(s) Supporting Document(s) Leukocytes [#/volume] in Blood by Automated count 11.7 10*3/uL 4-10 [facility] Erythrocytes [#/volume] in Blood by Automated count 4.20 10*6/uL 4.1- 5.3 [facility] Hemoglobin [Mass/volume] in Blood 10.5 g/dL 11.5-15.5 [facility] Hematocrit [Volume Fraction] of Blood by Automated count 33.3 % 3 6-45 L [facility] Erythrocyte mean corpuscular volume [Entitic volume] by Auto mated count 79.4 fL 80-96 L [facility] Erythrocyte mean corpuscular hemoglobin [Entitic mass] by Automated count 25.1 pg 27-33 L [facility] Erythrocyte mean corpuscular hemoglobin concentration [Mass/volume] by Automated count 31.6 g/dL 32.0-[facility] width [Ratio] by Automated count 17.4 % 11.5-14.5 H [facility] Platelets [#/volume] in Blood by Automated count 318 10*3/uL 150-400 [facility] Differential cell count method - Blood [facility] Neutrophils/100 leukocytes in Blood by Automated count 66 % [facility] Lymphocytes/100 leukocytes in Blood by Automated count 9 % [facility] Monocytes/100 leukocytes in Blood by Automated count 14 % [facility] Eosinophils/100 leukocytes in Blood by Automated count 10 % [facility] Basophils/100 leukocytes in Blood by Automated count 1 % [facility] Neutrophils [#/volume] in Blood by Automated count 7.81 10*3/uL 1.8-7 .0 H [facility] Lymphocytes [#/volume] in Blood by Automated count 1.02 10*3/uL 1.2-4 .0 L [facility] Monocytes [#/volume] in Blood by Automated count 1.60 10*3/uL 0-0.8 H [facility] Eosinophils [#/volume] in Blood by Automated count 1.11 10*3/uL 0-0.5 H [facility] Basophils [#/volume] in Blood by Automated count 0.11 10*3/uL 0-0.2 [facility] Nucleated erythrocytes/100 leukocytes [Ratio] in Blood by Automated count 0 /100{WBCs} 0-0 [facility] ID Date Data Source [id number] 05/17/2020 04:55:22 AM [facility] Name Value Range Interpretation Code Description Data Vicky rce(s) Supporting Document(s) Bicarbonate [Moles/volume] in Serum 25 mmol/L 22-29 [facility] Chloride [Moles/volume] in Serum or Plasma 104 mmol/L 98-107 [facility] Creatinine [Mass/volume] in Serum or Plasma 0.78 mg/dL 0.50-0.90 [facility] Glucose [Mass/volume] in Serum or Plasma 90 mg/dL 70-140 [facility] Potassium [Moles/volume] in Serum or Plasma 4.5 mmol/L 3.4-5.1 [facility] Sodium [Moles/volume] in Serum or Plasma 136 mmol/L 136-145 [facility] Urea nitrogen [Mass/volume] in Serum or Plasma 10 mg/dL 8-23 [facility] Anion gap 3 in Serum or Plasma 7 mmol/L 8-15 L [facility] Osmolality of Serum or Plasma by calculation 281 mosm/kg 275-300 [facility] Creatinine/Urea nitrogen [Mass Ratio] in Serum or Plasma 13 [facility] Calcium [Mass/volume] in Serum or Plasma 9.2 mg/dL 8.8-10.2 [facility] Glomerular filtration rate/1.73 sq M pre dicted among non-blacks [Volume Rate/Area] in Serum or Plasma by Creatinine-based formula (MDRD) 81 mL/min/1.73m2 >60 [facility] Glomerular filtration rate/1.73 sq M pre dicted among blacks [Volume Rate/Area] in Serum or Plasma by Creatinine-based formula (MDRD) >60 [facility] ID Date Data Source [id number] 05/17/2020 04:55:22 AM [facility] Name Value Range Interpretation Code Description Data Vicky rce(s) Supporting Document(s) Magnesium [Mass/volume] in Serum or Plasma 2.1 mg/dL 1.6-2.4 [facility] ID Date Data Source [id number] 05/17/2020 04:55:22 AM [facility] Name Value Range Interpretation Code Description Data Vicky rce(s) Supporting Document(s) Phosphate [Mass/volume] in Serum or Plasma 3.0 mg/dL 2.5-4.5 [facility] ID Date Data Source [id number] 05/16/2020 03:04:45 PM [facility] CT ABDOMEN PELVIS WITH AND WITHOUT CONTR AST [id number] RESULT - FINALInterpreted by:Mojgan Thrasher BeginsSigned on TueMay 16, 2020 3:04 PM by Lanette Gonzalez [facility] [place], [place] Result: This report contains findings that may be critical to patient care. The findings were verbally communicated via telephone conference with Dr. Mcleod at 3:04 PM EST on 05/16/2020. The findings were acknowledged and understood.THIS DOCUMENT HAS BEEN ELECTRONICALLY SIGNED BY LANETTE Ulrich EndsPROCEDURE INFORMATION: Exam: CT Abdomen And Pelvis Without [...] vein thrombus. The severe gallbladder hydrops is compressing the proximal portion of the left renal vein and is considered likely cause of this thrombus. 2. Stable severe gallbladder hydrops and cholelithiasis is noted. 3. Interval increased attenuation of the hepatic abscess may be related to post drainage appearance although the size of the lesion is not significantly changed. Numerous low- density hepatic nodules are present some of which have cystic characteristics although within the right hepatic lobe there are numerous small nodules which are indeterminate may also potentially represent small abscesses or metastatic foci. 4. 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 (Reference: Lidia 2017) COMMENTS: Consistent with the [employer]'s Incidental Findings Committee white [...] HAS BEEN ELECTRONICALLY SIGNED BY LANETTE GONZALEZ MDThis document has been electronically signed by Lanette Gonzalez MD on 05/16/2020 2:16 PM Name Value Range Interpretation Code Description Data Vicky rce(s) Supporting Document(s) ID Date Data Source [id number] 05/16/2020 03:04:40 PM EST [facility] CT THORAX WITH CONTRAST [id number] RESU LT - FINALInterpreted by:Mojgan Thrasher BeginsSigned on TueMay 16, 2020 3:04 PM by Lanette Gonzalez [facility] [place], [place] Result: This report contains findings that may be critical to patient care. The findings were verbally communicated via telephone conference with Dr. Mcleod at 3:04 PM EST on 05/16/2020. The findings were acknowledged and understood.THIS DOCUMENT HAS BEEN ELECTRONICALLY SIGNED BY LANETTE Ulrich EndsPROCEDURE INFORMATION: Exam: CT Chest With Contrast; Diagnostic [...] intravenous contrast. 3D rendering (Not supervised by radiologist): MIP and/or 3D reconstructed images were created [...] pulmonary embolism. 2. Small area of subpleural atelectasis/consolidation peripherally right lower lobe. Otherwise some small scattered areas of atelectasis noted bilaterally. COMMENTS: Consistent with the [employer]'s Incidental Findings Committee white [...] HAS BEEN ELECTRONICALLY SIGNED BY LANETTE GONZALEZ MDThis document has been electronically signed by Lanette Gonzalez MD on 05/16/2020 2:19 PM Name Value Range Interpretation Code Description Data Vicky rce(s) Supporting Document(s) ID Date Data Source [id number] 05/16/2020 08:20:27 AM [facility] Name Value Range Interpretation Code Description Data Vicky rce(s) Supporting Document(s) Magnesium [Mass/volume] in Serum or Plasma 2.3 mg/dL 1.6-2.4 [facility] ID Date Data Source [id number] 05/16/2020 08:20:27 AM [facility] Name Value Range Interpretation Code Description Data Vicky rce(s) Supporting Document(s) Bicarbonate [Moles/volume] in Serum 24 mmol/L 22-29 [facility] Chloride [Moles/volume] in Serum or Plasma 106 mmol/L 98-107 [facility] Creatinine [Mass/volume] in Serum or Plasma 0.78 mg/dL 0.50-0.90 [facility] Glucose [Mass/volume] in Serum or Plasma 99 mg/dL 70-140 [facility] Potassium [Moles/volume] in Serum or Plasma 4.8 mmol/L 3.4-5.1 [facility] Sodium [Moles/volume] in Serum or Plasma 137 mmol/L 136-145 [facility] Urea nitrogen [Mass/volume] in Serum or Plasma 12 mg/dL 8-23 [facility] Anion gap 3 in Serum or Plasma 8 mmol/L 8-15 [facility] Osmolality of Serum or Plasma by calculation 284 mosm/kg 275-300 [facility] Creatinine/Urea nitrogen [Mass Ratio] in Serum or Plasma 15 [facility] Calcium [Mass/volume] in Serum or Plasma 9.6 mg/dL 8.8-10.2 [facility] Glomerular filtration rate/1.73 sq M pre dicted among non-blacks [Volume Rate/Area] in Serum or Plasma by Creatinine-based formula (MDRD) 81 mL/min/1.73m2 >60 [facility] Glomerular filtration rate/1.73 sq M pre dicted among blacks [Volume Rate/Area] in Serum or Plasma by Creatinine-based formula (MDRD) >60 [facility] ID Date Data Source [id number] 05/16/2020 08:20:27 AM [facility] Name Value Range Interpretation Code Description Data Vicky rce(s) Supporting Document(s) Phosphate [Mass/volume] in Serum or Plasma 3.2 mg/dL 2.5-4.5 [facility] ID Date Data Source [id number] 05/16/2020 10:07:04 AM [facility] Name Value Range Interpretation Code Description Data Vicky rce(s) Supporting Document(s) Leukocytes [#/volume] in Blood by Automated count 13.0 10*3/uL 4-10 H [facility] Erythrocytes [#/volume] in Blood by Automated count 3.96 10*6/uL 4.1- 5.3 L [facility] Hemoglobin [Mass/volume] in Blood 10.0 g/dL 11.5-15.5 [facility] Hematocrit [Volume Fraction] of Blood by Automated count 31.6 % 3 6-45 [facility] Erythrocyte mean corpuscular volume [Entitic volume] by Auto mated count 79.8 fL 80-96 [facility] Erythrocyte mean corpuscular hemoglobin [Entitic mass] by Automated count 25.1 pg 27-33 [facility] Erythrocyte mean corpuscular hemoglobin concentration [Mass/volume] by Automated count 31.5 g/dL 32.0-36.0 [facility] distribution width [Ratio] by Automated count 17.2 % 11.5-14.5 [facility] Platelets [#/volume] in Blood by Automated count 258 10*3/uL 150-400 [facility] Differential cell count method - Blood [facility] Neutrophils/100 leukocytes in Blood by Automated count 69 % [facility] Lymphocytes/100 leukocytes in Blood by Automated count 4 % [facility] Monocytes/100 leukocytes in Blood by Automated count 14 % [facility] Eosinophils/100 leukocytes in Blood by Automated count 7 % [facility] Basophils/100 leukocytes in Blood by Automated count 1 % [facility] Neutrophils [#/volume] in Blood by Automated count 8.97 10*3/uL 1.8-7 .0 H [facility] Lymphocytes [#/volume] in Blood by Automated count 0.52 10*3/uL 1.2-4 .0 L [facility] Monocytes [#/volume] in Blood by Automated count 1.82 10*3/uL 0-0.8 H [facility] Eosinophils [#/volume] in Blood by Automated count 0.91 10*3/uL 0-0.5 H [facility] Basophils [#/volume] in Blood by Automated count 0.13 10*3/uL 0-0.2 [facility] Band form neutrophils/100 leukocytes in Blood by Manual count 3 % [facility] Myelocytes/100 leukocytes in Blood by Manual count 1 % [facility] Metamyelocytes/100 leukocytes in Blood by Manual count 1 % [facility] Band form neutrophils [#/volume] in Blood by Manual count 0.39 10*3 /uL 0-0.6 [facility] Myelocytes [#/volume] in Blood by Manual count 0.13 10*3/uL 0-0 H [facility] Metamyelocytes [#/volume] in Blood by Manual count 0.13 10*3/uL 0-0 H [facility] Anisocytosis [Presence] in Blood by Light microscopy [facility] ID Date Data Source [id number] 05/15/2020 08:23:06 PM [facility] Name Value Range Interpretation Code Description Data Vicky rce(s) Supporting Document(s) [facility] QAUIWh2zEhJYNsFm84/EDZkePDFka7BoDQklMBo1MWlkUFNiV3JyVDS3eC2fIBS3RFzFXqWwXzNiByD5 lbm [file] Fq9GxxjJGJHmuy8lwdrgLUFCRYLSxNgMXXdqyYwSLSUuRvBIaSS+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 [file] AgICAgICAgICAgICAgICAgICAgICAgICAgICAgICAg ICAgICAgICAgICAgICAgICAgICAgICAgICAgICANCiAgICAgICAgICAgICAgICAgICAgICAgICAgICAg ICAgICAgICAgICAgICAgICAgICAgICAgICAgICAgICAgICAgICAgICAgICAgICAgICAgICAgICAgICAg ICAgICAgICAgICANCiAgICAgICAgICAgICAgICAgIC AgICAgICAgICAgICAgICAgICAgICAgICAgICAgICAgICAgICAgICAgICAgICAgICAgICAgICAgICAgIC AgICAgICAgICAgICAgICAgICAgICANCiAgICAgICAgICAgICAgICAgICAgICAgICAgICAgICAgICAgIC AgICAgICAgICAgICAgICAgICAgICAgICAgICAgICAg ICAgICAgICAgICAgICAgICAgICAgICAgICAgICAgICANCiAgICAgICAgICAgICAgICAgICAgICAgICAg ICAgICAgICAgICAgICAgICAgICAgICAgICAgICAgICAgICAgICAgICAgICAgICAgICAgICAgICAgICAg ICAgICAgICAgICAgICANCiAgICAgICAgICAgICAgIC AgICAgICAgICAgICAgICAgICAgICAgICAgICAgICAgICAgICAgICAgICAgICAgICAgICAgICAgICAgIC AgICAgICAgICAgICAgICAgICAgICAgICANCiAgICAgICAgICAgICAgICAgICAgICAgICAgICAgICAgIC AgICAgICAgICAgICAgICAgICAgICAgICAgICAgICAg ICAgICAgICAgICAgICAgICAgICAgICAgICAgICAgICAgICANCiAgICAgICAgICAgICAgICAgICAgICAg ICAgICAgICAgICAgICAgICAgICAgICAgICAgICAgICAgICAgICAgICAgICAgICAgICAgICAgICAgICAg ICAgICAgICAgICAgICAgICANCiAgICAgICAgICAgIC AgICAgICAgICAgICAgICAgICAgICAgICAgICAgICAgICAgICAgICAgICAgICAgICAgICAgICAgICAgIC AgICAgICAgICAgICAgICAgICAgICAgICAgICANCiAgICAgICAgICAgICAgICAgICAgICAgICAgICAgIC AgICAgICAgICAgICAgICAgICAgICAgICAgICAgICAg ICAgICAgICAgICAgICAgICAgICAgICAgICAgICAgICAgICAgICANCjw/yBEbL2rgfVEnzxP8G1kxSp9F Fw0QJI5vs2WuLPRtVEjearFjXqqSXzCdNIFnSimOXfw1TIlnHK3WqXJfC2RfD2SaBMbhCN9OHHBnTNQq lLRuDMNjZDSfKvB5LYYwXUrrIP5CbYMcIEemNWAgEX KuAwCaXPSnSGIxTQKlCPPwLMCKHGXwBOVoVyEsYTGnUMLgMRotOZPZUFJ8LZYfLiKqEQRxGGXqGuYeFS PVHEP7VFUmRnFmCzVeZAQvQU8SRZVeZ373xkGqZOOXVn1+QNgcqzQtKyaLBpX1VMXjb7RgFJa9JA1UHF VlSjqlk2NhTOmzCEKZVTugLI4PAOK5COV2WFAbDr0A FKOkM689xnYsZS3RFs2UUiOiXH5rdx0CRIxtBIWkCvsLXti8AZeiOA9QmGCoCVqSv45ooOd0tdIfwOMV lVuvU8O0jDLkZC7CNrQsJFAzQPEhLkJjSlAfBSScPuuiUXLWZWvMIdPvI6Vpy4ZgRfK0QXVxCrZbNSmr ACYlFhV8VO36rBjeFQ3HEXPtPNUnZZ18KIK2GRXaFn 3DRe9GFiZrNF9ycb5XZFqtRMOnWykSSjd4DHszSG4PwGRcC0EeiEDxc1bJCoTaZ2NDCWK1GFNfOe8BLG OtKgHlBAOzGMniFY1nSMMlKYCNiNqbjjP8QI9GKD2buqPnHV1LLiEoYb4fZx8JCrJuX9XmB8BuDQNoJO GYVNpfAW2PIBorTQ3aYK9Yx9DRwGYhpC5fvq1WYYJw FROtVwpsgb7SBbeyX8H3qGfzLSOqAMwmCPTZYSyqTG1HGEIhTYL6EBG1SbFaTIXGVmEzG99kHW3CS0Lk c97iIaT8MSFvGoIgWEkkHD29gDjchgRbuXOryZhmMO4ARv3+DQplbmRvYmoNCnhyZWYNCjAgNTANCjAw NKFmCJRhKAAjKyV3KlOrVs8PLINnRWMqIIEcGrMiTH QbTDBtFAnvZRAsCGJ5ZBmdXWYkBVAgSR1ENbRcRYClDIH2LsHgVFDyZIRadb5KUXXpRLXdTPP2MsRgMF RoHEFmPQagQUBhWHMaAUI7NNLaIXFaMY7BOhSnVGEvOPR3WOixVVRaUVVxzm5PNEOdOINzXnM7TiClWJ BmKYRtOEfsHBBkJHD7BdU3ACQwNQBkDD5KByFoOMYz KWx8ZbRfADPrTVGxem2FHKTcBAPlCYkfIWBlJQTzLZEwOIeuTAIvTKHwOtj4JLKsNJWeYG7ELnSsVSFq JYM0GXMoEYIvOGOspy0WNLKiAUZvVBo4ELJxSXZoAXOeNVzjNKZeCXF2LPrlRXNrBSKuGN1QDmOjLWZd EKx6TTFdBTLuTUTipp8PHFQvWJZzFLK9MwCxXLFsYA IcQZsdNPZuLCTdBeOiZZZtBRJzEJ1IHcUzYEOkLlN7OmlcKQLsOWMuqj2HNCXtURYxVZA7SkWjGTPtZM BaDMamSGQwPJQ9Vdg6XQAgJTOeYM9MKyXnLIOsJglwAxHsGRPsIVVjyf5ODNLzHDTcWDR1MhAzWEMzWW PkTYoeMJUcPTLoIOQnEVVdXIKmXN4ZVpOaBSUhVlUb YhmkWEYpCXCshp3QXXVwHQIbVkB8FoJwRUBrZKKmQQoiZSXdTSMxABLyDGHoUMFhZS5EZpClXCViOcTa RRXwYCDdDYPlgn2QVUNnUKIsFuT9QxMaFOPmQBDhFGtxMVNoHXM6MlO7QNTsQEXgLY8CDhIgNJUwKng7 ZRIrFCKhREXgfc5WGBQeCJPsTrvvPkQyTSRxXTOuXO jyPJHhDXN8Hmg6GXQuTCJwTO2KDzTxQTXgVkr1EKxlDDTeMITzaw3TKPUiZCMmXKR2PUFeXBYvKRIcXI oiPFYyEFEfQWL3YMFuIOCvBG5RApUrBEYgURPuKnOaUBCrLNMydd0ODVQtLCP9SDCxOZHiSIWwCXFyLZ zkEJDhYGOpVyr1CHPvUXGoSC8JAuMrAZNyFGQ6JzIt OOShPUDrxa6VIHLsLAD3TFp5YUNkIBSvJSQfWHhvEXDwZEGtIFA6IDOlCKTaZS7JYuMhGSWwQIE6Vutk AIEtQJPyda1UCBInBTR0TfE3SkFbQLJlXFKoLCktSAYlULBrKZA0FZWmOAMeCK4YZkZxQSLdQNZuEvMd TDStKRAgwu5AJFVnLLA0SNO6QNGmZENkRQWxUCyvUC YhPDT1RJP4QSElHLClBW2TVtKwANOkLQWqKyowHQDlJKLbgz7NIMVrLRZ9BkFgKJXlYGKeFZYtJHl3cj NbuZSlBDa4CI0MU1WixvSqMDLKAf1Be061KDF9LJEfGw7IB4fgHy6qHVLdTEVXJa2BMSr2KZblTrooQn C1QpRtRFHqGEGrQ5FqHur2KDC5KjemUsR+IDwxOGQy CGNhXHC9GeY0FZO9FqWeIVSfRoDzAkXkIZXgRQ0fXRYAGd5+XYeeiYKorIexWMFVJdA8OMH6BUxkFZUO Rg0K ID Date Data Source [id number] 05/15/2020 02:13:33 PM [facility] IR IMAGE GUIDED NEEDLE DRAIN PROCEDUREFI NAL RESULTInterpreted by:Dale Samuels, Kyree Ybarra, MDPROCEDURE: ULTRASOUND GUIDED LIVER MASS BIOPSYHISTORY: 74-year-old female with a hypoenhancing hepatic lesion, abscess versus mass, status post drain placement in outside hospital which is removed due to no output. Status post IR biopsy on 05/12/2020, nondiagnostic due to necrosis.COMPARISON: CT scan 05/09/2020, IR procedure 05/12/2020.OPERATORS:Attending physician: Dale Samuels M.D.Fellow: Ty Ybrara M.D.Resident: NoneProcedural Nurse Practitioner: NoneSEDATION: 1 mg IV Versed, 50 mcg IV Fentanyl, for 15 minutes of moderate conscious sedation. The patient's vital signs including blood pressure, respiratory rate, pulse oximetry with PaO2, and heart rate with the EKG tracing were constantly monitored during the procedure.PROCEDURE:Limited pre-procedural ultrasound demonstrated an ill-defined hypoechoic region [...] sterile bandage was placed over the puncture site.The patient tolerated the procedure well without immediate complication.IMPRESSION: Successful and uncomplicated ultrasound guided liver mass biopsy. 1-2 mL of likely necrotic material was also aspirated and sent for cultures/cytology. The pathology lab results are pending.The findings were discussed with Dr Jamilah Meadows, right after the procedure. This document has been electronically signed by Dale Samuels MD on 05/15/2020 2:11 PM Name Value Range Interpretation Code Description Data Vicky rce(s) Supporting Document(s) ID Date Data Source [id number] 05/15/2020 11:05:42 AM [facility] IR IMAGE GUIDED NEEDLE DRAIN PROCEDUREFI NAL RESULTInterpreted by:Elliot Argueta, Kyree Ybarra, BOBROCEDURE: ULTRASOUND GUIDED LIVER MASS BIOPSYHISTORY: 74-year-old female with a hypoenhancing hepatic lesion, abscess versus mass, status post drain placement in outside hospital which is removed due to no output.COMPARISON: CT scan 05/09/2020.OPERATORS:Attending physician: Elliot Argueta MDFellow: Ty Ybarra M.D.Resident: NoneProcedural Nurse Practitioner: NoneSEDATION: 2 mg IV Versed, 100 mcg IV Fentanyl, for 30 minutes of moderate conscious sedation. The patient's vital signs including blood pressure, respiratory rate, pulse oximetry with PaO2, and heart rate with the EKG tracing were constantly monitored during the procedure.PROCEDURE:Limited pre-procedural ultrasound demonstrated an ill-defined hypoechoic region [...] sterile bandage was placed over the puncture site.The patient tolerated the procedure well without immediate complication.IMPRESSION: Successful and uncomplicated ultrasound guided liver mass biopsy. No obvious collection was seen for drain placement, tiny amount of aspirated fluid was sent for the lab. This document has been electronically signed by Elliot Argueta MD on 05/15/2020 10:48 AM Name Value Range Interpretation Code Description Data Vicky rce(s) Supporting Document(s) ID Date Data Source [id number] 05/16/2020 09:32:12 AM [facility] Service Cmnt XXX-Imp : LEFT LIVER LESION Gram Stn XXX : 4+WBC'S Seen.No organisms seenMicroorganism XXX Cult : 2+Staphylococcus epidermidis.(NOTE)Called to and read back by EDWARD FELIX RN, ON 6B AT 0931 ON05/16/20 BY SADIA. Name Value Range Interpretation Code Description Data Vicky rce(s) Supporting Document(s) ID Date Data Source [id number] 05/15/2020 05:29:28 AM [facility] Name Value Range Interpretation Code Description Data [facility] rce(s) Supporting Document(s) Leukocytes [#/volume] in Blood by Automated count 14.7 10*3/uL 4-10 H [facility] Erythrocytes [#/volume] in Blood by Automated count 3.98 10*6/uL 4.1- 5.3 [facility] Hemoglobin [Mass/volume] in Blood 10.0 g/dL 11.5-15.5 [facility] Hematocrit [Volume Fraction] of Blood by Automated count 31.4 % 3 6-45 [facility] Erythrocyte mean corpuscular volume [Entitic volume] by Auto mated count 78.9 fL 80-96 [facility] Erythrocyte mean corpuscular hemoglobin [Entitic mass] by Automated count 25.1 pg 27-33 [facility] Erythrocyte mean corpuscular hemoglobin concentration [Mass/volume] by Automated count 31.8 g/dL 32.0-36.0 [facility] width [Ratio] by Automated count 17.3 % 11.5-14.5 [facility] Platelets [#/volume] in Blood by Automated count 259 10*3/uL 150-400 [facility] Differential cell count method - Blood [facility] Neutrophils/100 leukocytes in Blood by Automated count 69 % [facility] Lymphocytes/100 leukocytes in Blood by Automated count 7 % [facility] Monocytes/100 leukocytes in Blood by Automated count 16 % [facility] Eosinophils/100 leukocytes in Blood by Automated count 7 % [facility] Basophils/100 leukocytes in Blood by Automated count 1 % [facility] Neutrophils [#/volume] in Blood by Automated count 10.11 10*3/uL 1.8- 7.0 H [facility] Lymphocytes [#/volume] in Blood by Automated count 1.06 10*3/uL 1.2-4 .0 L [facility] Monocytes [#/volume] in Blood by Automated count 2.34 10*3/uL 0-0.8 H [facility] Eosinophils [#/volume] in Blood by Automated count 1.09 10*3/uL 0-0.5 H [facility] Basophils [#/volume] in Blood by Automated count 0.10 10*3/uL 0-0.2 [facility] Nucleated erythrocytes/100 leukocytes [Ratio] in Blood by Automated count 0 /100{WBCs} 0-0 [facility] ID Date Data Source [id number] 05/15/2020 05:49:02 AM [facility] Value Range Interpretation Code Description Data Vicky rce(s) Supporting Document(s) Prothrombin time (PT) 15.8 s 12.5-14.9 H [facility] INR in Platelet poor plasma by Coagulation assay 1.25 [facility] Routine intensity oral anticoagulation I NR is typically 2.0-3.0. Target INR must be clinically individualized. ID Date Data Source [id number] 05/15/2020 05:49:20 AM [facility] Value Range Interpretation Code Description Data Vicky rce(s) Supporting Document(s) Magnesium [Mass/volume] in Serum or Plasma 1.9 mg/dL 1.6-2.4 [facility] ID Date Data Source [id number] 05/15/2020 05:49:02 AM [facility] Value Range Interpretation Code Description Data Vicky rce(s) Supporting Document(s) aPTT in Platelet poor plasma by Coagulation assay 30.1 s 24.0-33. 0 [facility] ID Date Data Source [id number] 05/15/2020 05:49:20 AM EST [facility] Name Value Range Interpretation Code Description Data Vicky rce(s) Supporting Document(s) Bicarbonate [Moles/volume] in Serum 20 mmol/L 22-29 L [facility] Chloride [Moles/volume] in Serum or Plasma 106 mmol/L 98-107 [facility] Creatinine [Mass/volume] in Serum or Plasma 0.68 mg/dL 0.50-0.90 [facility] Glucose [Mass/volume] in Serum or Plasma 98 mg/dL 70-140 [facility] Potassium [Moles/volume] in Serum or Plasma 4.3 mmol/L 3.4-5.1 [facility] Sodium [Moles/volume] in Serum or Plasma 134 mmol/L 136-145 L [facility] Urea nitrogen [Mass/volume] in Serum or Plasma 9 mg/dL 8-23 [facility] Anion gap 3 in Serum or Plasma 8 mmol/L 8-15 [facility] Osmolality of Serum or Plasma by calculation 277 mosm/kg 275-300 [facility] Creatinine/Urea nitrogen [Mass Ratio] in Serum or Plasma 13 [facility] Calcium [Mass/volume] in Serum or Plasma 8.8 mg/dL 8.8-10.2 [facility] Glomerular filtration rate/1.73 sq M pre dicted among non-blacks [Volume Rate/Area] in Serum or Plasma by Creatinine-based formula (MDRD) 85 mL/min/1.73m2 >60 [facility] Glomerular filtration rate/1.73 sq M pre dicted among blacks [Volume Rate/Area] in Serum or Plasma by Creatinine-based formula (MDRD) >60 [facility] ID Date Data Source [id number] 05/15/2020 05:49:20 AM [facility] Name Value Range Interpretation Code Description Data Vicky rce(s) Supporting Document(s) Phosphate [Mass/volume] in Serum or Plasma 2.8 mg/dL 2.5-4.5 [facility] ID Date Data Source [id number] 05/20/2020 05:45:00 PM [facility] Surgical Pathology ReportName: CARTER VEGAMRN: [id number] Number: [id number] Date: 05/15/2020 00:00Received Date: 05/15/2020 11:46Physician(s): SIMONE MEADOWS MD JAWED[place] MOHAMMED[place] [place]JJ JAMES MDSpecimen(s) ReceivedA: Targeted liver lesion biopsyClinical HistoryRule-out malignancy.DiagnosisLIVER LESION, TARGETED BIOPSY: ADENOCARCINOMA, MODERATE TO POORLYDIFFERENTIATEDDeonenechiqui Wong M.D.;Resident PathologistElectronically Signed By Alfred Green M.D., Attending Otfrcahlgow96/29/2020 17:45:29 The attending pathologist named above attests that he/she has personallyreviewed the relevant preparation(s) for the specimen, performedmicroscopic examination when indicated, and rendered the final diagnosis. Gross DescriptionThe specimen is received in formalin labeled with the patient's name "Isidra" and "targeted liver lesion". It consists of multiple softtan-white tissue cores measuring from 0.1 to 1.0 cm in length andaveraging 0.1 cm in diameter. Totally submitted in two cassettes.ND/pmwMicroscopic DescriptionThe tumor cells are positive for CK7, GATA3 (weak, focal), ID (weak,focal) and negative for CDX2, CK20, TTF1, GCDFP15, PAX8 and ER. P63 labelsrare cells. The differential diagnosis includes pancreatobiliary andupper GI primaries. Given the weak GATA3 positivity and lack of WMAYR34eyacdejwoe, breast primary is less likely.This report may include one or more immunohistochemical stain results thatuse analyte specific reagents. All positive and negative controls havebeen reviewed by the attending pathologist and are satisfactory. The testswere developed and their performance characteristics determined by [facility] Pathology department. They have not been cleared or approved by the USFood and Drug Administration. The FDA has determ ined that such clearanceor approval is not necessary. Name Value Range Interpretation Code Description Data Vicky rce(s) Supporting Document(s) ID Date Data Source [id number] 05/19/2020 03:36:00 PM [facility] CYTOPATHOLOGY REPORTName: CARTER VEGAMRN: [id number] Number: [id number] Date: 05/15/2020 00:00Received Date: 05/15/2020 13:01Physician(s): DORISIMONE CASTORENA MD JAWED, MOHAMMED, MD Specimen(s) ReceivedA: LIVER, FINE NEEDLE ASPIRATIONClinical History:Liver lesion aspirationDiagnosisLIVER, FINE NEEDLE ASPIRATION: NO EVIDENCE OF MALIGNANCY, ABUNDANT ACUTEINFLAMMATION MOST CONSISTENT WITH AN ABSC ESSComment/ld/calReviewing Cytotech: CHRISTINE Curry (ASCP)Christian Chahal M.D.Electronically Signed By Yue Villanueva M.D. 05/19/2020 15:36:43The attending pathologist named above attests that he/she has personallyreviewed the relevant preparation(s) for the specimen(s) and rendered thefinal diagnosis. Microscopic DescriptionThe specimen is composed of abundant neutrophils only. No viableepithelial cells were identified./ldGross Description0.4 ml milky pink fluid received: 1 Thin-layer Pap stained slide preparedby filter preparation. Specimen processed by cytocentrifugation: 1cytospin slide prepared for Pap stain and 1 cytospin slide prepared forDiff Quik stain. This report may include one or more immunohistochemical stain results thatuse analyte specific reagents. All positive and negative controls havebeen reviewed by the attending pathologist and are satisfactory. The testswere developed and their performance characteristics determined by [facility] Pathololgy department. They have not been cleared or approved by [place] Food and Drug Administration. The FDA has determined that suchclearance or approval is not necessary. Name Value Range Interpretation Code Description Data [facility](s) Supporting Document(s) ID Date Data Source [id number] 05/14/2020 02:31:44 PM [facility] Name Value Range Interpretation Code Description Data [facility](s) Supporting Document(s) [facility] VEIXFo4iQgTKBxFc31/NRQpaXVMpo1DlFWukIAj2SUwqVHWbL4IhEGK3bF3lEOY1DCsFCkEnOcUfAk[facility] EhJlrLLvGyVTRmSywONiMhYRcvFqnvgVHjAP8BoSQ0DEXdF40wSCOcCTYdA6SaHNM8KId+Fj7ETPCwuV ZuZJ9YIdtR9F6xUgnFWl+zmpjCI3Sj1H4RnE5/+IZt/BSa7ItG1xaIkMOywJPjgJ6++4czeR8Hv9L7jI Pqdzm9Sjauq5p6AP98t6jQ/5phj0D4QGtc/y7/DGPH nF2Zv/4DwSb5ezTB4b42rIrmCPJYqj1ux6b66StbsndnE8tJLuAh30txsVmSk4oKXcVVEc9jJloa2UMw tGzXEpze08w5Dz/owNhuZPu+/+uCF88I63usrHnnEVJ9Mj8ztd7qKjRNqMJaWusg8XsmmV15IslJesba 0butcWQ3Pb5zC6U13uIfoXcdXcGpOEuZYd4ayGwpga /Z7aOJlDdaX6KksO1WVbYvsXUkvnB02ELS+FaUxGA5o5Ez7hZ1bY67TysoxlwUL49UO9qih5byLihH14 TJ4KJxtnZrZ8AocLn5Xe0G5aeLDp/n9zyiS0kwyhpRS8vditrsEtOtxViEbLt266S4PHvNp3k+/qneYq uhc2JB35a3ptcn57nAFw1K3cbo1d/VBVj3DBfaH5N5 yWfugZKZnyczOV8pdx/57DNZKVglRkIbdFbbvqEf1wcd57QpBi0J0DF2W7SR2lcGye+beyD3DhKD+mxp iuqxrPNfFCwdW/rEzE+YPVq5Z3o7qWLLw43vZBLa8iyO9VTqgcs3jsznDCCricxGfC8NF1Fu8Aw7s2d7 rkvwgZ7n1ynJuqFmWfJHDYqBjLkskNJkxqsgSUsB7w rtLVvudwKqzhXkhB0VvQNpCZDiNBJe1TPYDWhtpTz8lmGS8QzRPicR+zBNzN/XdBhzC7beL5GzkwkDhr rJn2Mxes1ihy2C6nqZKAsGy4d9wgXc3q74ExQZIACj6j53tjzduv8863+luG3MN3+6hzVQq2G7xzZ1Kg 2qk1Jds3mHl6dhTOucz5Tm9Sch97NbWcVW4InL93TE J7RyVYwKDPKCZIXUJV29qumXIJLqsKOldS0RkcO9RlKiX3mb6Fri1mhhA5paDlfgVJFoG7DTyq2AsoAn LukH9KGEcEDMGtm+lWDzp3LMoTqptqJd3fiCtZuw5h9N1cg+a0gudnaqVmJ/lZ8dBFEIhs+pfjiuK9Jv Iqc4Z5GvmmRuo96S66k+p30Sj1eZTgJStkV2gGjuna PTdKqUSporl6aA2zs4YpSvBJpMC+HYKv8tWoguZ3OCFsulca0E1EKiPkvfT3yqTKt180OtXvqEk1Kiyb Pun50Z1oaR1DYZxqshqHGto3ZIMT7yjet5NxuW69nxTeIYubNkfe6bUfgjOwXe52TSSCJrt7PLflj/SÁNCHEZ [file] ICAgICAgICAgICAgICAgICAgICAgICAgICAgICAgIC AgICAgICAgICAgICAgICAgICAgICAgICAgDQogICAgICAgICAgICAgICAgICAgICAgICAgICAgICAgIC AgICAgICAgICAgICAgICAgICAgICAgICAgICAgICAgICAgICAgICAgICAgICAgICAgICAgICAgICAgIC AgICAgICAgDQogICAgICAgICAgICAgICAgICAgICAg ICAgICAgICAgICAgICAgICAgICAgICAgICAgICAgICAgICAgICAgICAgICAgICAgICAgICAgICAgICAg ICAgICAgICAgICAgICAgICAgDQogICAgICAgICAgICAgICAgICAgICAgICAgICAgICAgICAgICAgICAg ICAgICAgICAgICAgICAgICAgICAgICAgICAgICAgIC AgICAgICAgICAgICAgICAgICAgICAgICAgICAgDQogICAgICAgICAgICAgICAgICAgICAgICAgICAgIC AgICAgICAgICAgICAgICAgICAgICAgICAgICAgICAgICAgICAgICAgICAgICAgICAgICAgICAgICAgIC AgICAgICAgICAgDQogICAgICAgICAgICAgICAgICAg ICAgICAgICAgICAgICAgICAgICAgICAgICAgICAgICAgICAgICAgICAgICAgICAgICAgICAgICAgICAg ICAgICAgICAgICAgICAgICAgICAgDQogICAgICAgICAgICAgICAgICAgICAgICAgICAgICAgICAgICAg ICAgICAgICAgICAgICAgICAgICAgICAgICAgICAgIC AgICAgICAgICAgICAgICAgICAgICAgICAgICAgICAgDQogICAgICAgICAgICAgICAgICAgICAgICAgIC AgICAgICAgICAgICAgICAgICAgICAgICAgICAgICAgICAgICAgICAgICAgICAgICAgICAgICAgICAgIC AgICAgICAgICAgICAgDQogICAgICAgICAgICAgICAg ICAgICAgICAgICAgICAgICAgICAgICAgICAgICAgICAgICAgICAgICAgICAgICAgICAgICAgICAgICAg ICAgICAgICAgICAgICAgICAgICAgICAgDQogICAgICAgICAgICAgICAgICAgICAgICAgICAgICAgICAg ICAgICAgICAgICAgICAgICAgICAgICAgICAgICAgIC DwFHCoGTEpRNLtFXBwXWEnYOSiTWRwXQQkKGCcEWHvTRQtNQx7Y9nuUKExOOTmZL5nAVl9Jb3+DQoNCm GoTML2nvFyeB2REJ3zc1OwYTpxXBSfn7ZxAEl2PD1UVDBmTYatLX8EXUfgoo1TTQKnHFUuoALDd8tzFk XmEDE7KBNeAqdzSO8DBODgS0mstqYcNONqUCIFQUqw LTUTOXhiCBTJJHVcQORlBbRqKnOlNHFbQYImXGHKQWV5DOWsGmUnJWPbYHIrNX9MKNCaK801unXoHV3N Go9AGhNwAM0aze3SAnOhNRBsIrnKEbf4UBrmCF0YoCVwcZInNqYqJIIVAtUrE3wzz6NqTnvpVOSDYCss ZW2Ck7TywIWaEYq+Ic4SEP9em2PxMFtxHfFtYI0gzl 6EUXpLSsGdE0EsdVrrKGXmftN0tHHgHUT5IQezgWEohCFNAB5ysevcJAYFDSPsoEWeIn7wIn8wULDfIT ZkRpE1LCEZOB7AIWBqYFRirIWaPQFxEWXFES7ZHOvwXVY5QPUavyKllPEqHDtkHF2OWWCnxpXiVhYlJK BSDQo+Xn9NNB8wz5ZkTEotKHAfXD0lsu6YWJeLKnFs K5D9fBImR9Y0IXlnNn6OWCImBEPhTmUeQTBVTIkuBA8ASK1wcqJ9MK6AmFFsMLRvYAFvxFMcNAd9X70j zCTgJGzkOL0NIOE+Alida+Gk0KSSLfHSTvRSVmRmNgBXPBXuOtY2ZmB5LQd1FuT7YrJS69cJtuhmCtSVrd MO3TRJ1hQRQkCATZYF5AaFTfqC2yiyAgUhGhEFOYGv YoT09uqOGkKUBkKAP6EDNdGz9KWBUcD7SpulTkuWyjiyRcJOClODRAVD7BPEnsgrSulUVwbQiiBV98eA gwRV5XGv8LNvBxMB7wcf2AfEKxHf4TOUVnOS2ZOTCuZTRjOTDsTFJ6WKXfZmWtCEayALJpTWQfRJM6RC YhDTBdVV0MGpLeZNGcBTTqBpQsXDWbMQQjof5WEETy JAF7HAj6ZTCiYGZsHZKiBRnbDIVhAJKpKNS7IRUnWUCzMU9AKfSeETCrMZHwLIGaAOZbPKLjxc1IKPWa XYIsPOS6QUTcHMHdBINaZXucHIGfLQK1LfS4JBHwMDJgIY1CUeNhZYGgEDc9WvVhIIKqLFVihv5AHXUx IGJrBUrqNPZvGHInKNBlKYasFXSfJXFpLTW7QNFtPD JnZY5FFiIsXYQeBPQcUlLfYMBvCNBzkz3RWTHkVGToQENnRZAkUKSbXRRoHUfpWNJqIWF1UBK9XTFbOW KsTP2DOeKgYXRsLZwmXdPxCNBoQGZlyw4JXHJpXCCaEAo5RXWvVYFmPZFpQPznVIKxBLUdHVB8QQRuNC IzAC9MUdQxKZMsUbZ8OJtnNJBmQPVrbh4OGVNrVPLy QHLlMPPuPVJtRLZbJFydGCDlDQR2MYtvXNCzYBHnIO8KNjNgJJBvCoP9EZsmXLMyHLClfe2UNCMmWVYf ZhH7HZBxYQMpLFUvVPagJTVcLOZ4DHH1EUHeFFYmHE1QHtUzAZScQfvfSsxdWAOtEWXauv0VNZIsPSLb EDp1FyOaCEJkGTWcYUplGHViISE2SUo7IKGwXZFsLF 4USoGzPDTeTbbuJlflLNLaQEHomw5IGZHzQLRyQNGpCoZgQNNqNUFoOIsyXOLgAIVzBMH9MZVvVZJcOJ 4BEgMoRJVaCbW4ANmzYPPmKPUwur6FXMUbOJI6CtMlUhDwZFZjASXzJCmbKZUkNOPvTWNvPJXhCMBaXY 4ZLlLqKBHlMSS2WuyqNUZmQIVlzg2CELRrWSX4Lqd5 AKCeIVZiSHIvZTsaZJKtPCZqBHO9SXIlIXOcXN2DNdTxVZZoWQQ6NpPxMHUeRGMaex4GFXYbLFX3TIxw OvKxQFFbWCYsYUbfBNCgPJB1BSr1LFPvGSSoHF8ZIaPdSQYeAWVbLoCrPZVfZDSnnl2PmFPhcGwjcf5U RXpRHv7YtJejWNY3KPioLi4mhGEmJYIwOHFIEu2Rij FaOLRdKFEYRSnbOEBvGJOnQLXjIiZ6CMEfQdtbSDO7GsMsYfX4YIG2BOQ6FAE7TwK2NeP5H2GvFLccKk LnFYK4USZ7C3IfFtr7ScbbBmd3KgL+AW0qCFs+Hj5Iy3GstjG6jbCkSTr5VHL6LC4NQRUHC5TFNf== ID Date Data Source [id number] 05/14/2020 05:18:37 AM [facility] Name Value Range Interpretation Code Description Data Vicky rce(s) Supporting Document(s) Leukocytes [#/volume] in Blood by Automated count 15.8 10*3/uL 4-10 [facility] Erythrocytes [#/volume] in Blood by Automated count 4.02 10*6/uL 4.1- 5.3 L [facility] Hemoglobin [Mass/volume] in Blood 10.1 g/dL 11.5-15.5 [facility] Hematocrit [Volume Fraction] of Blood by Automated count 31.8 % 3 6-45 L [facility] Erythrocyte mean corpuscular volume [Entitic volume] by Auto mated count 79.1 fL 80-96 L [facility] Erythrocyte mean corpuscular hemoglobin [Entitic mass] by Automated count 25.3 pg 27-33 L [facility] Erythrocyte mean corpuscular hemoglobin concentration [Mass/volume] by Automated count 31.9 g/dL 32.0-[facility].0 [facility] width [Ratio] by Automated count 17.0 % 11.5-14.5 [facility] Platelets [#/volume] in Blood by Automated count 241 10*3/uL 150-400 [facility] Differential cell count method - Blood [facility] Neutrophils/100 leukocytes in Blood by Automated count 74 % [facility] Lymphocytes/100 leukocytes in Blood by Automated count 5 % [facility] Monocytes/100 leukocytes in Blood by Automated count 15 % [facility] Eosinophils/100 leukocytes in Blood by Automated count 5 % [facility] Basophils/100 leukocytes in Blood by Automated count 1 % [facility] Neutrophils [#/volume] in Blood by Automated count 11.70 10*3/uL 1.8- 7.0 [facility] Lymphocytes [#/volume] in Blood by Automated count 0.82 10*3/uL 1.2-4 .0 L [facility] Monocytes [#/volume] in Blood by Automated count 2.34 10*3/uL 0-0.8 H [facility] Eosinophils [#/volume] in Blood by Automated count 0.81 10*3/uL 0-0.5 H [facility] Basophils [#/volume] in Blood by Automated count 0.11 10*3/uL 0-0.2 [facility] Nucleated erythrocytes/100 leukocytes [Ratio] in Blood by Automated count 0 /100{WBCs} 0-0 [facility] ID Date Data Source [id number] 05/14/2020 05:24:18 AM [facility] Value Range Interpretation Code Description Data Vicky rce(s) Supporting Document(s) Bicarbonate [Moles/volume] in Serum 23 mmol/L 22-29 [facility] Chloride [Moles/volume] in Serum or Plasma 104 mmol/L 98-107 [facility] Creatinine [Mass/volume] in Serum or Plasma 0.72 mg/dL 0.50-0.90 [facility] Glucose [Mass/volume] in Serum or Plasma 103 mg/dL 70-140 [facility] Potassium [Moles/volume] in Serum or Plasma 4.4 mmol/L 3.4-5.1 [facility] Sodium [Moles/volume] in Serum or Plasma 133 mmol/L 136-145 L [facility] Urea nitrogen [Mass/volume] in Serum or Plasma 10 mg/dL 8-23 [facility] Anion gap 3 in Serum or Plasma 6 mmol/L 8-15 L [facility] Osmolality of Serum or Plasma by calculation 275 mosm/kg 275-300 [facility] Creatinine/Urea nitrogen [Mass Ratio] in Serum or Plasma 13 [facility] Calcium [Mass/volume] in Serum or Plasma 9.4 mg/dL 8.8-10.2 [facility] Glomerular filtration rate/1.73 sq M pre dicted among non-blacks [Volume Rate/Area] in Serum or Plasma by Creatinine-based formula (MDRD) 83 mL/min/1.73m2 >60 [facility] Glomerular filtration rate/1.73 sq M pre dicted among blacks [Volume Rate/Area] in Serum or Plasma by Creatinine-based formula (MDRD) >60 [facility] ID Date Data Source [id number] 05/14/2020 05:24:18 AM [facility] Value Range Interpretation Code Description Data Vicky r[facility](s) Supporting Document(s) Magnesium [Mass/volume] in Serum or Plasma 1.9 mg/dL 1.6-2.4 [facility] ID Date Data Source [id number] 05/14/2020 05:24:18 AM EST [facility] Name Value Range Interpretation Code Description Data Vicky rce(s) Supporting Document(s) Phosphate [Mass/volume] in Serum or Plasma 2.3 mg/dL 2.5-4.5 L [facility] ID Date Data Source [id number] 05/13/2020 03:26:28 PM [facility] XR CHEST FRONTAL ONLY [id number] RESULTI nterpreted by:Agata Castro MDINDICATION: Productive coughTECHNIQUE: XR CHEST FRONTAL ONLY [id number], 05/13/2020 8:42 AM, 85 degrees upright.COMPARISON: Side CT head thorax and CT abdomen/pelvis dated 05/09/2020..FINDINGS: There are no indwelling lines, catheters, or foreign bodies.Stable elevation of the right hemidiaphragm with associated right lung volume loss.The cardiomediastinal contours are stable.There is no evidence of pleural disease.The lungs are clear.IMPRESSION: Stable elevation of the right hemidiaphragm with associated right lung volume loss.This document has been electronically signed by MONAE Castro on 05/13/2020 3:24 PM Name Value Range Interpretation Code Description Data [facility] r[facility](s) Supporting Document(s) ID Date Data Source [id number] 05/13/2020 03:57:31 AM [facility] Name Value Range Interpretation Code Description Data V[facility] r[facility](s) Supporting Document(s) Leukocytes [#/volume] in Blood by Automated count 14.7 10*3/uL 4-10 H [facility] Erythrocytes [#/volume] in Blood by Automated count 4.50 10*6/uL 4.1- 5.3 [facility] Hemoglobin [Mass/volume] in Blood 11.3 g/dL 11.5-15.5 L [facility] Hematocrit [Volume Fraction] of Blood by Automated count 35.9 % 3 6-45 L [facility] Erythrocyte mean corpuscular volume [Entitic volume] by Auto mated count 79.9 fL 80-96 L [facility] Erythrocyte mean corpuscular hemoglobin [Entitic mass] by Automated count 25.0 pg 27-33 L [facility] Erythrocyte mean corpuscular hemoglobin concentration [Mass/volume] by Automated count 31.3 g/dL 32.0-36.0 [facility] distribution width [Ratio] by Automated count 17.3 % 11.5-14.5 [facility] Platelets [#/volume] in Blood by Automated count 288 10*3/uL 150-400 [facility] Differential cell count method - Blood [facility] Neutrophils/100 leukocytes in Blood by Automated count 76 % [facility] Lymphocytes/100 leukocytes in Blood by Automated count 6 % [facility] Monocytes/100 leukocytes in Blood by Automated count 12 % [facility] Eosinophils/100 leukocytes in Blood by Automated count 5 % [facility] Basophils/100 leukocytes in Blood by Automated count 1 % [facility] Neutrophils [#/volume] in Blood by Automated count 11.13 10*3/uL 1.8- 7.0 [facility] Lymphocytes [#/volume] in Blood by Automated count 0.89 10*3/uL 1.2-4 .0 L [facility] Monocytes [#/volume] in Blood by Automated count 1.80 10*3/uL 0-0.8 [facility] Eosinophils [#/volume] in Blood by Automated count 0.79 10*3/uL 0-0.5 H [facility] Basophils [#/volume] in Blood by Automated count 0.14 10*3/uL 0-0.2 [facility] Nucleated erythrocytes/100 leukocytes [Ratio] in Blood by Automated count 0 /100{WBCs} 0-0 [facility] ID Date Data Source [id number] 05/13/2020 04:09:08 AM [facility] Name Value Range Interpretation Code Description Data Vicky rce(s) Supporting Document(s) Albumin [Mass/volume] in Serum or Plasma by Bromocresol green (BCG) dye binding method 3.1 g/dL 3.5-5.2 L [facility] Bilirubin.total [Mass/volume] in Serum or Plasma 0.3 mg/dL <1.2 [facility] Bilirubin.direct [Mass/volume] in Serum or Plasma <0.3 [facility] Alkaline phosphatase [Enzymatic activity/volume] in Serum or Plasma 244 U/L 35-104 H [facility] Aspartate aminotransferase [Enzymatic activity/volume] in Serum or Plasma 11 U/L <32 [facility] Alanine aminotransferase [Enzymatic activity/volume] in Seru m or Plasma 13 U/L <33 [facility] Protein [Mass/volume] in Serum or Plasma 6.4 g/dL 6.4-8.3 [facility] ID Date Data Source [id number] 05/13/2020 04:09:08 AM [facility] Value Range Interpretation Code Description Data Vicky rce(s) Supporting Document(s) Magnesium [Mass/volume] in Serum or Plasma 2.1 mg/dL 1.6-2.4 [facility] ID Date Data Source [id number] 05/13/2020 04:09:08 AM [facility] Value Range Interpretation Code Description Data Vicky rce(s) Supporting Document(s) Bicarbonate [Moles/volume] in Serum 24 mmol/L 22-29 [facility] Chloride [Moles/volume] in Serum or Plasma 103 mmol/L 98-107 [facility] Creatinine [Mass/volume] in Serum or Plasma 0.80 mg/dL 0.50-0.90 [facility] Glucose [Mass/volume] in Serum or Plasma 98 mg/dL 70-140 [facility] Potassium [Moles/volume] in Serum or Plasma 4.3 mmol/L 3.4-5.1 [facility] Sodium [Moles/volume] in Serum or Plasma 135 mmol/L 136-145 L [facility] Urea nitrogen [Mass/volume] in Serum or Plasma 10 mg/dL 8-23 [facility] Anion gap 3 in Serum or Plasma 8 mmol/L 8-15 [facility] Osmolality of Serum or Plasma by calculation 279 mosm/kg 275-300 [facility] Creatinine/Urea nitrogen [Mass Ratio] in Serum or Plasma 13 [facility] Calcium [Mass/volume] in Serum or Plasma 9.4 mg/dL 8.8-10.2 [facility] Glomerular filtration rate/1.73 sq M pre dicted among non-blacks [Volume Rate/Area] in Serum or Plasma by Creatinine-based formula (MDRD) 72 mL/min/1.73m2 >60 [facility] Glomerular filtration rate/1.73 sq M pre dicted among blacks [Volume Rate/Area] in Serum or Plasma by Creatinine-based formula (MDRD) 83 mL/min/1.73m2 >60 [facility] ID Date Data Source [id number] 05/13/2020 04:09:08 AM [facility] Value Range Interpretation Code Description Data Vicky rce(s) Supporting Document(s) Phosphate [Mass/volume] in Serum or Plasma 2.0 mg/dL 2.5-4.5 L [facility] ID Date Data Source [id number] 05/13/2020 09:21:20 AM [facility] Name Value Range Interpretation Code Description Data Vicky rce(s) Supporting Document(s) Carcinoembryonic Ag [Mass/volume] in Serum or Plasma 33.7 ng/ml <3.4 H [facility] Levels of CEA should not be interpreted as absoulute evidence of the presence or absence of disease. It should not be used as a screening test for Cancer. CEA values obtained using different methodologies cannot be used interchangeably. This method is manufactured by [employer] and is an electrochemiluminesence immunoassay. ID Date Data Source [id number] 05/13/2020 09:54:30 AM [facility] Value Range Interpretation Code Description Data Vicky rce(s) Supporting Document(s) Cancer Ag 19-9 [Units/volume] in Serum or Plasma 9179 U/mL <35 H [facility] ConfirmedThis test uses [employer] CA 19-9 el ectrochemiluminescent immunoassay. Results obtained with different test methods or kits cannot be used interchangeably. CA 19-9 is useful in monitoring pancreatic, hepatobiliary, gastric, hepatocelllular, and colorectal cancer. CA 19-9 value regardless of level, should not be interpreted as absolute evidence of the presence or absence of malignant disease. ID Date Data Source [id number] 05/13/2020 05:37:40 PM [facility] Name Value Range Interpretation Code Description Data Vicky rce(s) Supporting Document(s) Juuyl-3-Qkakgsoxsnl [Mass/volume] in Serum or Plasma 1 ng/mL <9 [facility] ID Date Data Source [id number] 05/12/2020 08:55:10 PM [facility] Name Value Range Interpretation Code Description Data Vicky rce(s) Supporting Document(s) [facility] QRKCQb3oHpMOCwJz52/QMVifUMUxk5EjYAnsMGk1VBdlTBUrK3InTIZ8cZ7qRKU7AFaDXpIsZoCkSfRt [facility] [file] jV4vhK/E0nCvFB8GvT1g7blUvb22tDDCjMiyxgn9/1F4GY4Qw3YvZ/7o+court interpreter/2nP77/pGEQU6qC44in3r [file] CyOcMKO2Y7HvPnNhUCa1D6C+XK5fHWi+Ww7Tj2PbpxW7bhKmHFa7NhJ0OP1CQMCCN7IUFf== ID Date Data Source [id number] 05/15/2020 10:48:08 AM [facility] Service Cmnt XXX-Imp : [facility] Stn XXX : No WBC's or organisms seen.Microorganism XXX Cult : No growth 3 days Name Value Range Interpretation Code Description Data Vicky rce(s) Supporting Document(s) ID Date Data Source [id number] 05/12/2020 12:44:26 PM [facility] Name Value Range Interpretation Code Description Data Vicky rce(s) Supporting Document(s) History and Physical [facility] PYHUCb5vLwZNSlRv50/ZAVulUFOed5ZqSHrzHJq3MKhuLODjD7CoAIW0bC4cUII3GFkQMcGeOkYkYnNo lbm [file] YPDaVSFqEQRpXYTsK5AhJvPoWQ4YMo5LRxT2VXV4cHSkKa3HNvb0YwODVfTxMH6XPOl= ID Date Data Source [id number] 05/12/2020 04:43:18 AM [facility] Name Value Range Interpretation Code Description Data Vicky rce(s) Supporting Document(s) Leukocytes [#/volume] in Blood by Automated count 13.8 10*3/uL 4-10 H [facility] Erythrocytes [#/volume] in Blood by Automated count 4.19 10*6/uL 4.1- 5.3 [facility] Hemoglobin [Mass/volume] in Blood 10.4 g/dL 11.5-15.5 [facility] Hematocrit [Volume Fraction] of Blood by Automated count 33.1 % 3 6-45 L [facility] Erythrocyte mean corpuscular volume [Entitic volume] by Auto mated count 79.1 fL 80-96 L [facility] Erythrocyte mean corpuscular hemoglobin [Entitic mass] by Automated count 24.9 pg 27-33 L [facility] Erythrocyte mean corpuscular hemoglobin concentration [Mass/volume] by Automated count 31.4 g/dL 32.0-36.0 [facility] distribution width [Ratio] by Automated count 16.8 % 11.5-14.5 H [facility] Platelets [#/volume] in Blood by Automated count 304 10*3/uL 150-400 [facility] Differential cell count method - Blood [facility] Neutrophils/100 leukocytes in Blood by Automated count 72 % [facility] Lymphocytes/100 leukocytes in Blood by Automated count 7 % [facility] Monocytes/100 leukocytes in Blood by Automated count 13 % [facility] Eosinophils/100 leukocytes in Blood by Automated count 7 % [facility] Basophils/100 leukocytes in Blood by Automated count 1 % [facility] Neutrophils [#/volume] in Blood by Automated count 9.91 10*3/uL 1.8-7 .0 H [facility] Lymphocytes [#/volume] in Blood by Automated count 0.95 10*3/uL 1.2-4 .0 L [facility] Monocytes [#/volume] in Blood by Automated count 1.85 10*3/uL 0-0.8 H [facility] Eosinophils [#/volume] in Blood by Automated count 1.00 10*3/uL 0-0.5 H [facility] Basophils [#/volume] in Blood by Automated count 0.10 10*3/uL 0-0.2 [facility] Nucleated erythrocytes/100 leukocytes [Ratio] in Blood by Automated count 0 /100{WBCs} 0-0 [facility] ID Date Data Source [id number] 05/12/2020 04:46:16 AM [facility] Name Value Range Interpretation Code Description Data Vicky rce(s) Supporting Document(s) Albumin [Mass/volume] in Serum or Plasma by Bromocresol green (BCG) dye binding method 2.7 g/dL 3.5-5.2 [facility] Bilirubin.total [Mass/volume] in Serum or Plasma 0.3 mg/dL <1.2 [facility] Bilirubin.direct [Mass/volume] in Serum or Plasma <0.3 [facility] Alkaline phosphatase [Enzymatic activity/volume] in Serum or Plasma 186 U/L 35-104 H [facility] Aspartate aminotransferase [Enzymatic activity/volume] in Serum or Plasma 13 U/L <32 [facility] Alanine aminotransferase [Enzymatic activity/volume] in Seru m or Plasma 13 U/L <33 [facility] Protein [Mass/volume] in Serum or Plasma 5.8 g/dL 6.4-8.3 L [facility] ID Date Data Source [id number] 05/12/2020 04:46:16 AM [facility] Name Value Range Interpretation Code Description Data Vicky rce(s) Supporting Document(s) Phosphate [Mass/volume] in Serum or Plasma 2.5 mg/dL 2.5-4.5 [facility] ID Date Data Source [id number] 05/12/2020 04:46:16 AM [facility] Name Value Range Interpretation Code Description Data Vicky rce(s) Supporting Document(s) Magnesium [Mass/volume] in Serum or Plasma 1.8 mg/dL 1.6-2.4 [facility] ID Date Data Source [id number] 05/12/2020 04:46:16 AM [facility] Name Value Range Interpretation Code Description Data Vicky rce(s) Supporting Document(s) Bicarbonate [Moles/volume] in Serum 25 mmol/L 22-29 [facility] Chloride [Moles/volume] in Serum or Plasma 106 mmol/L 98-107 [facility] Creatinine [Mass/volume] in Serum or Plasma 0.76 mg/dL 0.50-0.90 [facility] Glucose [Mass/volume] in Serum or Plasma 82 mg/dL 70-140 [facility] Potassium [Moles/volume] in Serum or Plasma 4.5 mmol/L 3.4-5.1 [facility] Sodium [Moles/volume] in Serum or Plasma 137 mmol/L 136-145 [facility] Urea nitrogen [Mass/volume] in Serum or Plasma 9 mg/dL 8-23 [facility] Anion gap 3 in Serum or Plasma 6 mmol/L 8-15 L [facility] Osmolality of Serum or Plasma by calculation 282 mosm/kg 275-300 [facility] Creatinine/Urea nitrogen [Mass Ratio] in Serum or Plasma 12 [facility] Calcium [Mass/volume] in Serum or Plasma 9.0 mg/dL 8.8-10.2 [facility] Glomerular filtration rate/1.73 sq M pre dicted among non-blacks [Volume Rate/Area] in Serum or Plasma by Creatinine-based formula (MDRD) 82 mL/min/1.73m2 >60 [facility] Glomerular filtration rate/1.73 sq M pre dicted among blacks [Volume Rate/Area] in Serum or Plasma by Creatinine-based formula (MDRD) >60 [facility] ID Date Data Source [id number] 05/14/2020 05:47:00 PM [facility] Surgical Pathology ReportName: CARTER VEGAMRN: [id number] Number: [id number] Date: 05/12/2020 00:00Received Date: 05/13/2020 09:02Physician(s): SIMONE MEADOWS MD PINTER, DAVID J,MDCopy To:ARLYN-MINA,FRANSISCO Penny,TAVO,SIMONE,KRUPApecimen(s) ReceivedA: Liver lesionClinical HistoryLiver abscess vs. mass, aspiration, possible drain placement, possiblebiopsy. 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 NO VIABLE CELLS/TISSUEPRESENT. (See Microscopic Description). /Marisol Vance M.D.;Resident PathologistElectronically Signed By Kuldip Roberts MD;, Attending Bgcvsxfqoho38/23/2020 17:47:43 The attending pathologist named above attests that he/she has personallyreviewed the relevant preparation(s) for the s pecimen, performedmicroscopic examination when indicated, and rendered the final diagnosis. Gross DescriptionThe specimen is received in formalin labeled with the patient's name "Isidra" and "liver lesion biopsy". It consists of multiple softtan-white tissue cores measuring from 0.1 up to 1.1 cm in length andaveraging 0.1 cm in diameter. Totally submitted in two cassettes.KW /pmwMicroscopic DescriptionSections from the liver lesion core biopsy contain cores of coagulative(infarct-like) necrotic cellular debris with ghost-like cell remnants. The appearance and arrangement of these ghost-like cell remnants issuspicious for tumor but not diagnostic. The lack of viable cells/tissueprecludes further immunohistochemical assessment. This report may include one or more immunohistochemical stain results thatuse analyte specific reagents. All positive and negative controls havebeen reviewed by the attending pathologist and are satisfactory. The testswere developed and their performance characteristics determined by [facility] Pathology department. They have not been cleared or approved by the USFood and Drug Administration. The FDA has determined that such clearanceor approval is not necessary. Name Value Range Interpretation Code Description Data Vicky rce(s) Supporting Document(s) ID Date Data Source [id number] 05/11/2020 11:14:02 PM [facility] ABDOMEN LIMITED [id number] RESULTInte rpreted by:BOB CovarrubiasROCEDURE INFORMATION: Exam: US Abdomen, Limited; Right Upper Quadrant Exam date and time: 05/11/2020 9:57 PM Age: 74 years old Clinical indication: Abscess of liver; Abnormal findings; Abnormal radiologic finding of the abdomen; Radiologic exam and body structure: Cta thorax, abd/pelvis from outside facility; Prior surgery; Surgery date: Post-operative (0-2 days); Surgery type: Abscess drainage of liver; Additional info: Assess for liver abscess/other type of lesion TECHNIQUE: Imaging protocol: US abdomen. Real time ultrasound with image documentation. Limited exam focused on the right upper quadrant. COMPARISON: If prior CT becomes available, a comparison can be madeFINDINGS: Liver: Hepatic heterogeneity. There is a hypoechoic [...] venous flow IMPRESSION: Cholelithiasis. Negative sonographic Prajapati sign.There is a heterogeneous lesion within the right liver lobe measuring approximately 10 centimetres. This could represent patient's known abscessTHIS DOCUMENT HAS BEEN ELECTRONICALLY SIGNED BY DAWSON STARK MDThis document has been electronically signed by Dawson Stark MD on 05/11/2020 11:13 PM Name Value Range Interpretation Code Description Data Vicky rce(s) Supporting Document(s) ID Date Data Source [id number] 05/11/2020 10:14:10 AM [facility] Name Value Range Interpretation Code Description Data Vicky rce(s) Supporting Document(s) History and Physical [facility] DXRJHk2lFnPLFgMe34/DJBolOCLzq0RpFShwKLg2ZOcvKLZhD6CoNVE7cR7sFXQ8CUwXYbWlPaKgXcRf lbm GbTmhTGdXcQFSpPirWZqWzIIifYfairGNlXB8NgPB6NUUpA39vDURrEFAiN3EwRHX6HtY+Ik2JNUTdoO ZoPE3KZswY5P3htij2Vl4vpI9FqMJQLijh7B17sUGBK9MPEo/HvaJAvsjW+pKcJk7Axra6k+1oQ3Wvci dafdzqi885QZbGkGDgJU9WLpWL//6caxAP8gj1/+/x o4Pi8IfM+kgm2IHpjd91We9JXnNWwLz5xvcH/k9ff//B2xO1/g5CSYF7mx36CgovBnJk8bWuWHO7sSp3 Wn6rw4rN0hMBIkszj5+UYfjpXoeKm92s0wxIi7OadyqGwzBeSRN+ONhe8MBJRnUpZnvNnKQHxIFsDMbY t07DBxkUc98yOO+jjalQ3sxD18Nx0OFE6uH2d33pMD nxLb5om8xRJXaeZ9REQe9EPct51fSayi3Ze28X0o/wEctqpm1xLxqnFk7fRt0F9h1GZzLtNLhzAw+aEy 7jxwJbJszpnXQbnGxG3cV2n1iyiJBM2vtAiXyQ59V2GP/L+2r42F9KXnrhFn+zm+T1W2g14EBJTIgSl0 z48HihRhzQ6JSnxc1b72F4+eWo3RdY3sL3BzXrqTOS u7Zdwq9veofQapXSsVA7H/h6ogY/9KsbanOMiouUAyqpfdmEMwA7L/KgDI1ruD7uqqqSQhYN+VMJhlEJ Angela+9x5MGCV0GO5/ztLObhJVsK6tEbqYgSodUsHLVi9eLkdyNb+kAC/Tlq19P6G9UpDlq9hlQveTEK7l [file] Sánchez+3zub7q8FIyBCaPHpRIviBddhhl+XN93A/41C0hA55vEMhPR4EeCrJiTc46fmH8B/I1opgJYetE+B2 [file] AgICAgICAgICAgICAgICAgICAgICAgICAgICAgICAgICAgICAgICAgICAgICAgICAgICAgICAgICAgIC AgICAgICAgICAgICANCiAgICAgICAgICAgICAgICAg ICAgICAgICAgICAgICAgICAgICAgICAgICAgICAgICAgICAgICAgICAgICAgICAgICAgICAgICAgICAg ICAgICAgICAgICAgICAgICAgICAgICANCiAgICAgICAgICAgICAgICAgICAgICAgICAgICAgICAgICAg ICAgICAgICAgICAgICAgICAgICAgICAgICAgICAgIC AgICAgICAgICAgICAgICAgICAgICAgICAgICAgICAgICANCiAgICAgICAgICAgICAgICAgICAgICAgIC AgICAgICAgICAgICAgICAgICAgICAgICAgICAgICAgICAgICAgICAgICAgICAgICAgICAgICAgICAgIC AgICAgICAgICAgICAgICANCiAgICAgICAgICAgICAg ICAgICAgICAgICAgICAgICAgICAgICAgICAgICAgICAgICAgICAgICAgICAgICAgICAgICAgICAgICAg ICAgICAgICAgICAgICAgICAgICAgICAgICANCiAgICAgICAgICAgICAgICAgICAgICAgICAgICAgICAg ICAgICAgICAgICAgICAgICAgICAgICAgICAgICAgIC AgICAgICAgICAgICAgICAgICAgICAgICAgICAgICAgICAgICANCiAgICAgICAgICAgICAgICAgICAgIC AgICAgICAgICAgICAgICAgICAgICAgICAgICAgICAgICAgICAgICAgICAgICAgICAgICAgICAgICAgIC AgICAgICAgICAgICAgICAgICANCiAgICAgICAgICAg ICAgICAgICAgICAgICAgICAgICAgICAgICAgICAgICAgICAgICAgICAgICAgICAgICAgICAgICAgICAg ICAgICAgICAgICAgICAgICAgICAgICAgICAgICANCiAgICAgICAgICAgICAgICAgICAgICAgICAgICAg ICAgICAgICAgICAgICAgICAgICAgICAgICAgICAgIC AgICAgICAgICAgICAgICAgICAgICAgICAgICAgICAgICAgICAgICANCiAgICAgICAgICAgICAgICAgIC AgICAgICAgICAgICAgICAgICAgICAgICAgICAgICAgICAgICAgICAgICAgICAgICAgICAgICAgICAgIC AgICAgICAgICAgICAgICAgICAgICANCjw/kJGfK6rb gDNwhvF6Z3mlHg7BMm0YNR7un8ViYSKyMPuxqtTiNedJCaZjUFFbZwmPVsb9BRitMV9ZxZYkL2PwQ1Rt OGyoLX2FPIYoZUQdrYEkDYXqWANjHlA8NCIgVJweMC6MrHEqQOdhBYQhRFFdQbJhBOYdEVQnJGCyEJGz GDQANJRxQYZtIkQqRMJxHMJpBXjrPSYRDA7VTeOgK0 ZnjK45YJrLBw7+SArpdiFxSihSFxM3BKAuh8OrOAs9RX0LBPNpOehdv4WuRrfsKMEIIXooYM9SPOI0OU Y9CKAlFb6ZUBLpG205zaHaDT3KDv0JNaTdYA4pth0NSyayJESlOucYMfr5DUbxGR9OlNCoSLwABeYjUo cyW5IlvBXPKI8uWKBKKRUduYCcLv0aKC5eBKJwHBPz SkBoPUFSKH9JRURxYNPkgSFvZGKfPOOIPN7PZZdlLTG5EPWrjwGrgWDfIGvvLX5QREPxbkZpGbbpVTCY DQo+Xy9SLG1ek0AeEPizQKZfVR0wur2PDJeOStViM1B6yOKmD9T7ATliFe0OZXBlIHTpQfKzKETWELlk ET7SHU8pgbV3ZV3DqIHpUWGeAIDqcYXcIPa6U80ghB DtJPqkJE1UHLR+Alida+Bg5IAAPaVBQyMPKjUtWcBCZPLzPoX6NmE4GNv7PmN9MiVY62oZapxiXjNFacSE 1VFL8aFPUoHWRRDP7IqKDewA2egxPaXzNkGWCMKfOjA15ugXSqYHWhJUY9FVWwGw7JSQHxU8BokqWdnK dgfnCxVOVhEQXIZC6TTBavxnDwyQMdiSocOL38vXax OT4ZEo4WOxMwRA8yin1KfYFtMm4HSLU7KF2GIQFcNBPdKIPgLUU8JRHmJhRjQQhjIPUjQGEiHAL9OLGt BVVbEX6UHgSuHVDlOVQ1VFBhLPWoUPOdtk4SEYFeQCO5RzP8ZiMwXZCzVEFaFFzcXUUjYTSqBIM9ZOUj XDQhAX6FMmAlVTSzJZLwBVWyHQWiZTKlzv3UYVQnNL NvAZFlMyGlUBEtAQRbJKpfFIMkGPK3VZj2XLMaMWIgIF7MRoOtVSVfCIyeVYfhQKIqGXRhbu9HGEVhLG KdSJJyPEGvDVHbLGIbZZdwOLYzMBN1WLL6YDLhNKObZS8KFbYmJWSrBHQ4DDssNBRgFNBmwq0RPAUcYG GyQasmFCSlBMMnFHLtUHxyWHYtNOQ0IvQeTYMgMZSz JD3OSbTnMDVoVAA3DXrpSCXuWCOqct5LLETaNXNeMKz3MKOyFMXaIENxRHayXBMwMRHsSGKfXWIiXKNi UL1HFsJsAZXmOnXpKXWaZRSvMQCvcw2ATYQhGDOtMrFrHMQsZWNxEKRsVShkPCMhRAIuHVv5GHIaIZVj GC9QVcOjAEMhZgH0JqVxMHHgPLUbwl0AZAGyMHKxBf r8WYJhYAXqIGDkGGvfXBChPWZ1JKA5CZOqUTBhHR7JGyHfQREtLuXnNcQjYGPjYCWmcc3MYRScPAWdCW UlOSAkEBKbLSJiXWwtTHJlUXC2MTO4TKLjRBXoIH2UNpPpKHQqAeVzPvYuMPDdDFKgys4MVUGsUWQmTd J9VKYcCJRdHFDlEKksSSHjRLI5ENC5KCHpFMBqSS7B KuNqKXJsLar5FFMySXAdXTFlvn8PFAVoEPVeXqxzUOTyYNVaKNXlFKebMSYsLENeEoK5RSRnSMLeTO3E OgUoQFIyTCX9OQtvBBKmUMUyta2ZXPTeOLZ5XKcpRfTgQUIvOOVsYNgzIYSjGHDaZXZaXDEuCKIoYI0K NcJfWZLzSMQ0RBmhMJDoFKJhzr3JVRGeGMU8BpEhFs PdEGLsYQUkNInsUXUyWNByJOMpLFLtMVKcPA3MGcHdXDYsLDW8EzVzJAYkQCFnek6KXOEaROC8UnrkWN SzIYAiKPUeFUz8yfKfsTUcWLg6FE9SL3NghaDrUPMIBu1Bh753PHA9LGVnJy9FO4xbBx0mHNFtCZYYLg 7OGHt8Rac1WcixRxFbPmAjYvY0JxLmFyB8JRElIhTs RaQ9BZI+LRifOsReXBCgLZUgXvY0XMY3PHOrOAp2OQD8ZkGzKZD0Kr4sVHCWVf7+DQpzdGFydHhyZWYN FiLcLAQ6IUxwOYUZRr0J ID Date Data Source [id number] 05/11/2020 10:16:42 AM [facility] Name Value Range Interpretation Code Description Data Vicky rce(s) Supporting Document(s) Homocysteine [Moles/volume] in Serum or Plasma 9.5 umol/L <15.0 [facility] ID Date Data Source [id number] 05/11/2020 08:15:32 AM EST [facility] Name Value Range Interpretation Code Description Data Vicky rce(s) Supporting Document(s) Leukocytes [#/volume] in Blood by Automated count 13.8 10*3/uL 4-10 H [facility] Erythrocytes [#/volume] in Blood by Automated count 4.52 10*6/uL 4.1- 5.3 [facility] Hemoglobin [Mass/volume] in Blood 11.3 g/dL 11.5-15.5 [facility] Hematocrit [Volume Fraction] of Blood by Automated count 36.0 % 3 6-45 [facility] Erythrocyte mean corpuscular volume [Entitic volume] by Auto mated count 79.7 fL 80-96 L [facility] Erythrocyte mean corpuscular hemoglobin [Entitic mass] by Automated count 25.1 pg 27-33 [facility] Erythrocyte mean corpuscular hemoglobin concentration [Mass/volume] by Automated count 31.4 g/dL 32.0-[facility].0 [facility] distribution width [Ratio] by Automated count 17.1 % 11.5-14.5 H [facility] Platelets [#/volume] in Blood by Automated count 289 10*3/uL 150-400 [facility] Differential cell count method - Blood [facility] Neutrophils/100 leukocytes in Blood by Automated count 76 % [facility] Lymphocytes/100 leukocytes in Blood by Automated count 4 % [facility] Monocytes/100 leukocytes in Blood by Automated count 12 % [facility] Eosinophils/100 leukocytes in Blood by Automated count 7 % [facility] Basophils/100 leukocytes in Blood by Automated count 1 % [facility] Neutrophils [#/volume] in Blood by Automated count 10.52 10*3/uL 1.8- 7.0 H [facility] Lymphocytes [#/volume] in Blood by Automated count 0.59 10*3/uL 1.2-4 .0 L [facility] Monocytes [#/volume] in Blood by Automated count 1.66 10*3/uL 0-0.8 H [facility] Eosinophils [#/volume] in Blood by Automated count 0.91 10*3/uL 0-0.5 H [facility] Basophils [#/volume] in Blood by Automated count 0.09 10*3/uL 0-0.2 [facility] Nucleated erythrocytes/100 leukocytes [Ratio] in Blood by Automated count 0 /100{WBCs} 0-0 [facility] ID Date Data Source [id number] 05/11/2020 08:51:27 AM [facility] Name Value Range Interpretation Code Description Data Vicky rce(s) Supporting Document(s) Albumin [Mass/volume] in Serum or Plasma by Bromocresol green (BCG) dye binding method 2.7 g/dL 3.5-5.2 [facility] Bilirubin.total [Mass/volume] in Serum or Plasma 0.3 mg/dL <1.2 [facility] Bilirubin.direct [Mass/volume] in Serum or Plasma <0.3 [facility] Hemolyzed Alkaline phosphatase [Enzymatic activity/volume] in Serum or Plasma 193 U/L 35-104 H [facility] Aspartate aminotransferase [Enzymatic activity/volume] in Serum or Plasma 19 U/L <32 [facility] Alanine aminotransferase [Enzymatic activity/volume] in Seru m or Plasma 20 U/L <33 [facility] Protein [Mass/volume] in Serum or Plasma 6.4 g/dL 6.4-8.3 [facility] ID Date Data Source [id number] 05/11/2020 08:51:27 AM [facility] Name Value Range Interpretation Code Description Data Vicky rce(s) Supporting Document(s) Bicarbonate [Moles/volume] in Serum 23 mmol/L 22-29 [facility] Chloride [Moles/volume] in Serum or Plasma 106 mmol/L 98-107 [facility] Creatinine [Mass/volume] in Serum or Plasma 0.73 mg/dL 0.50-0.90 [facility] Glucose [Mass/volume] in Serum or Plasma 100 mg/dL 70-140 [facility] Potassium [Moles/volume] in Serum or Plasma 3.9 mmol/L 3.4-5.1 [facility] Hemolyzed Sodium [Moles/volume] in Serum or Plasma 137 mmol/L 136-145 [facility] Urea nitrogen [Mass/volume] in Serum or Plasma 10 mg/dL 8-23 [facility] Anion gap 3 in Serum or Plasma 8 mmol/L 8-15 [facility] Osmolality of Serum or Plasma by calculation 283 mosm/kg 275-300 [facility] Creatinine/Urea nitrogen [Mass Ratio] in Serum or Plasma 13 [facility] Calcium [Mass/volume] in Serum or Plasma 9.8 mg/dL 8.8-10.2 [facility] Glomerular filtration rate/1.73 sq M pre dicted among non-blacks [Volume Rate/Area] in Serum or Plasma by Creatinine-based formula (MDRD) 83 mL/min/1.73m2 >60 [facility] Glomerular filtration rate/1.73 sq M pre dicted among blacks [Volume Rate/Area] in Serum or Plasma by Creatinine-based formula (MDRD) >60 [facility] ID Date Data Source [id number] 05/11/2020 08:51:27 AM [facility] Name Value Range Interpretation Code Description Data Vicky rce(s) Supporting Document(s) Magnesium [Mass/volume] in Serum or Plasma 2.0 mg/dL 1.6-2.4 [facility] ID Date Data Source [id number] 05/11/2020 08:51:27 AM [facility] Name Value Range Interpretation Code Description Data Vicky rce(s) Supporting Document(s) Phosphate [Mass/volume] in Serum or Plasma 2.4 mg/dL 2.5-4.5 L [facility] ID Date Data Source [id number] 05/10/2020 01:42:40 PM [facility] Name Value Range Interpretation Code Description Data Vicky rce(s) Supporting Document(s) Hepatitis C virus Ab [Presence] in Serum or Plasma by Immuno assay Non Reactive [facility] No serological evidence of active infect ion. If recent exposure is suspected, test for HCV RNA. ID Date Data Source [id number] 05/22/2020 01:47:00 PM [facility] Molecular Genetics ReportName: CARTER VEGAMRN: [id number] Number: [id number] Date: 05/10/2020 12:29Received Date: 05/12/2020 10:45Physician(s): SIMONE MEADOWS MD ALBRIGHT, JEFFREY B,MDCopy To:LEIF SMART,KRUPApecimen(s) ReceivedA: Peripheral Blood-ProthrombinTYPE OF STUDY: Prothrombin (F2) c.44829M>A (aka c.*97G>A) mutationanalysisSPECIMEN TYPE: Peripheral BloodRESULTS: This patient does NOT carry the prothrombin (F2) 51443B>Amutation. See [id number] for Factor V Leiden results. INTERPRETATION: Based on the assay this patient is homozygous wild-typeand is not heterozygous or homozygous for the prothrombin 89089L>Amutation.Genetic counseling is recommended.COMMENTS: Prothrombin thrombophilia is an inherited disorder of bloodclotting (MedGen 940912). Prothrombin 77844F>A is a risk factor forthrombosis. The 38988C>A variant (dbSNP: [id number]), also known asc.*97G>A, is located in the 3' UTR of the F2 gene and causes increasedlevels of F2 protein synthesis (Andres et al., 2001). This DNA-basedtest is specific for the F2 66244E>A mutation and would not be expectedto detect other prothrombin gene mutations. Other known inherited oracquired risk factors likely compound the chance of thrombosis. Prothrombin 89675P>A heterozygosity is present in 1-3%, 1%, and 0.3% ofCaucasians, Hispanics, and Americans respectively.METHOD: The cobase F2F5 assay is an in vitro diagnostic device thatuses real-time Polymerase Chain Reaction (PCR) for the detection andgenotyping of the human Factor II 49084H>A mutation. An allele- specificfluorescence signal is generated by cleavage of bound TaqMane probes. References: Shanita Sebastian., et al., (1997) The prothrombin gene X53815A variant:prevalence in a [place] anticoagulant clinic population. [place] J ofHaematology 98:353-355Pomadi, S.R., et al., (1996) A Common Genetic Variation in the3'-Untranslated Region of the Prothrombin Gene Is Associated With ElevatedPlasma Prothrombin Levels and an Increase in Venous Thrombosis Blood 88(15):5667-4001.Andres et al., (2001) Increased efficiency of mRNA 3-prime end formation:a new genetic mechanism contributing to hereditary thrombophilia. Rochelle.Bhakti. 28:389-92.Gus Lau et al (2018) Venous thromboembolism laboratory testing (factor VLeiden and factor II c.*97G>A), 2018 update: a technical standard of theMet[facility]an College of Medical Genetics and Genomics (ACMG). Genetics inMedicine 20:0820-8298. The cobase F2F5 assay is an FDA approved assay for in vitro diagnostic usedistributed by [employer]. The test has been validated andauthorized for clinical use by the [facility]. of Health. Theperformance of this test was determined by the Molecular Diagnosticslaboratory of the Department of Pathology, [facility]. The laboratory maintains quality assurance monitor and quality assuranceprograms to ensure a high quality of testing. Test results should beinterpreted in the context of clinical findings, family history, and otherlaboratory data, and should not be used as the sole criteria for diagnosisof conditions related to this genetic variant. Rare genetic variants thatmimic or mask the mutation being tested, though rare, should beconsidered. krenata/rw Electronically Signed By Damien Thompson, Ph.D., [facility] MolecularGeneticist 05/22/2020 13:47:24 Name Value Range Interpretation Code Description Data Vicky rce(s) Supporting Document(s) ID Date Data Source [id number] 05/22/2020 01:47:00 PM [facility] Molecular Genetics ReportName: CARTER VEGAMRN: [id number] Number: [id number] Date: 05/10/2020 12:29Received Date: 05/12/2020 10:42Physician(s): SIMONE MEADOWS MD ALBRIGHT, JEFFREY B,[facility] [place], [place] To:LEIF SMART,[facility] [place]imen(s) ReceivedA: Peripheral Blood-Factor VTYPE OF STUDY: FACTOR V LEIDEN (R506Q) MUTATION ANALYSISSPECIMEN TYPE: Peripheral BloodRESULTS: This patient does NOT carry the Factor V Leiden mutation.See [id number] for prothrombin results. INTERPRETATION: Based on the assay this patient is homozygous wild-typeand is not heterozygous or homozygous for the Factor V Leiden mutation. Genetic counseling is recommended.COMMENTS: The Factor V Leiden mutation is associated with an increasedrisk for venous thromboembolism (MedGen: 4633). The Leiden variant is asingle nucleotide change (c.1691G>A) of the human Factor V gene (F5) thatresults in substitution of arginine to glutamine at position 506 (R506Q)also known as R534Q (dbSNP: [id number]). This DNA- based test is specific forthe Factor V Leiden mutation and would not be expected to detect otherFactor V mutations. Factor V Leiden is responsible for about 90% ofindividuals showing APC resistance. Other known inherited or acquiredrisk factors likely compound the chance of thrombosis. Factor V Leidenheterozygosity is present in 5.1%, 2.0%, and 1.2% of Caucasians,Hispanics, and Americans respectively. This result should beinterpreted with the aid of protein function tests such as the APCResistance ratio.METHOD: The cobase F2F5 Test is an in vitro diagnostic device that usesreal-time Polymerase Chain Reaction (PCR) for the detection and genotypingof the human Factor V Leiden mutation. An allele-specific fluorescencesignal is generated by cleavage of bound TaqMane probes.REFERENCES: Sid Geronimo et al (2018) Venous thromboembolism l aboratorytesting (factor V Leiden and factor II c.*97G>A), 2018 update: a technicalstandard of the [place] [employer] (ACMG).Genetics in Medicine 20:3657-9479; Jennifer, RD. et al (2002) Clinicalutility of Factor V Leiden (R506Q) testing for the diagnosis andmanagement of thromboembolic disorders. Arch Pathol Lab Med 126:5829-4682; Oleg et al (2001) The factor V HR2 haplotype: prevalence andassociation of the A4013Q and U6108V polymorphisms. Blood CoagulFibrinolysis 12:201-6; Daphney Escalera et al. (2000) Mutations in the R2 FVgene affect the ratio between the two FV isoforms in plasma. ThrombHaemost 83:362-5; YANET Quiñones et al. (1999) Coinheritance of the HD4gqahvyshf in the factor V gene confers an increased risk of venousthromboembolism to carriers of Factor V R506Q (Factor V Leiden). Blood 94:0454-0730; Enmanuel Lorenzo et.al. (1995) High risk of thrombosis inpatients homozygous for factor V Leiden (activated protein C resistance)Blood 85:1504 - 1508. The cobase F2F5 assay is an FDA approved assay for in vitro diagnostic usedistributed by [employer]. The test has been validated andauthorized for clinical use by the [facility] Dept. of Health. Theperformance of this test was determined by the Molecular Diagnosticslaboratory of the Department of Pathology, [facility]. The laboratory maintains quality assurance monitor and quality assuranceprograms to ensure a high quality of testing. Test results should beinterpreted in the context of clinical findings, family history, and otherlabo ratory data, and should not be used as the sole criteria for diagnosisof conditions related to this genetic variant. Rare genetic variants thatmimic or mask the mutation being tested, though rare, should beconsidered. fatemeh/ fernandaElectronically Signed By Damien Thompson, Ph.D., [facility] MolecularGeneticist 05/22/2020 13:47:05 Name Value Range Interpretation Code Description Data Vicky rce(s) Supporting Document(s) ID Date Data Source [id number] 05/10/2020 08:56:27 [facility] Name Value Range Interpretation Code Description Data Vicky rce(s) Supporting Document(s) [facility] BWELQg1vAdFFWkSxn8BnPfXlAYQmRH0ghmx1K4H7fUVcU6WsgTXmk2kyW6WwP7YnJZJeSSDJWD1EiTIh jb2 [file] I3/fyzk8TOT67LNRsnk0T9doSl4P/María++Tnb5U+K8Umsx42OTrlJxwYk8cnTTol72lE1x/uB0T560vqK [file] RT/+María+5X2zwRvVzS2+a5ovzVXBrWWvIMGgOI19VBsHVfVj65l+tskShT8psSsigWQsyt6QYV2uSWZhz [file] t7vYqdd/MB/machine hoop maker/53Ho2FzM3TEcb5edoqDw9YPxeRX2HqigMq613uxeODHm1BFw1UiciAgAor0LShBKG XrF4LageXqIEHsgwmf7w5KPIPhucwC7TPrkg57thU6 qbfWHiI893Ou4ifMyNbxBX68MIBOc3x+ixm9WVtTIyHCXZ/ucyDU2pij4rH4R3JQtbOurt3KGdtlAOUR PpZjUS+OKgk+lvw+1B64Sen8X+qMJ3b+wvMuf7GZHhsPPs73NvdegIeEuISV559QX3JXC+b1D3GS5TWg Ieq9QDa+2xVzgJbyUu6l7I1P+UbtN80TysigQKLdsK 1eZ/D0EcJZVO4ZkcVGWst+ikbjNGwYVUWBBYTqE2c4Gd5EFvnmZuH+i2JsSSrQYmB8bomV0NwILy/BnB h1EFuOoTQArl7A1KqJiXXBhXTmrRzRHLB3UmwLeEpuLp6KLY1XLya0EUvTnFeZ/DgdxB1qifoDkupwDG q9wOX4TPCJqhhHYabRDll+UZE/WWE4W4Ok91hN+50l +DqgcE9xUtYiEijvNlGf8hqAg5+Sj+UgC+x184OvO0TKnkgkXp0+XN5WAsp5FDhglpmBcoGjrzDCOQSW uITkgLBMlAsJssucozdQ1qbZjl90ED/LqUARVw4+klopdX65CUH7DOERFSdru6C4umyNt9ls7SRR0k1S qByUXWCCjYnqRoUvZoSCWSZO9mrR9g7THvUG2D6Hwi NEkxSyC7Qdr2i1nvfZ8IyG+4GxHxj+Lyh4+2AUXyHBj79UgO1XqXjw461V9reBjKwSfFn0ErZRGcI1iE C7XPCwAl/b1TPivgOS5WFT9qZMrp7enz4flq8y8mZ1gwW4qWFUGUjhwLlXko3gA1vOxAhuqbiB0imxJE IE30yK/JeBwSsD5lst9gc2snZyjiIQHv6YDIK/UORP FPKxCPlYRBlPVMYTlfFEZTxR+d9Z+d85+My0RDPI5drWTx1vhZhWv2MZciBkT3qNVgBvYFe3Ak9AZrx/ 5BkJNq3o+RvR9ZzQ6TQAexG4hBE0yc15D+kSIrQB+J1FF/jHgd0YsLNpsDFMFBZFNAGXtJlSB6mlzbkQ Xga4pHUygKxGXABjFOipBYPAEDZfc2zkQchSEk3Dpo Z5wUqIUCZMfsBECpeOYU80jiVM9NPoKXYJEwLTH46vQBP6MvrQnaCB5Zi6+VjCJ08+hpV9RRgvgGpqQQ 88ApFGpBERIkKkE+tPfQmJaChNZS7jxEYVGhbJmk8k6DckabR9UJDL2TeHBY1XpCvwhr77kAYrePdWno 7Q2Q86+0FnP+nxP8424RozKp/LH0MnrGnEwu5D2G79 +7VqdzcNGvTBoJLbEGgG7aUHE1X7RyGpWMPaG4zdUM3FuKuOkm1qsOS0V3mo1swH1vAXmuLUZosla8RH 3geXL9fMNOIzYvmXgl8O2wiLT1boWLqCtDB865iIByDihezRCy1Ttagv1iS8MQgIX0Rmwxhvspiof4NV RQT+gfG/s/G/c/IyGWGo4gjaWIIR+YD/nY3/nY3xRO N/Z+N/Z+N/Z+N/Z+N/UswpS6earmHwdgsi+kTj+kTj+kTjf+woGacFnqBnPY7Jf8MdgD6nuHXid7wuPD 4Hk/JM0IxvOT4EvcvclpTtG1a+0ZxzonM+rT6R57yy8hT8p6O+1UxJmctb7gICgYa5PptBTp7O7IeasG lYYuEGw2ztrMrKXhclQ6kfMpH8FZBIN/msMhsG413J cgijROSxuDkqYl2JHJ7+qyVMqNBGxJZ3j800xP7aRws2hbSz9tAhhxR0cohR/c75SGK/u2p26aqlc4D/ s3FYvO5ZH5Bdy/To5Hsn2bE7N8cseEc1KFO40XRPUApwnqscGaJkpgSaA6bvvQ/B5C6Qeq/Og/tYxoWx ZL3YxqZ4PLKuPJLyj2lPfkv/++N8q13BIS1Juj/7t7 /4ye451do1//R36r3B6V7u7cjzc+zrj7/49OPPP/+7t3/48nDyaFXYe5aShzguM5vl1WbSpKnv/hzU1s 8/fffJz/twgrnFBfN0URVt/xrNHcd/89sv/yvnt9741/7j9+/keu6s762++fjzt99+9wt1594+5rP3// zzd1//+uNPf/b39xh6j043/0tK648+fvf+68/effvx 7j2srx9B2gH+kLw446dTC/bex83e97/icn5KV1//1a//ymH3G/g+7Isvv/jhe6onbNJLl27q0w5vf2/8 7bu3j3/5xZevW/n8dU9/7nXWachm0d5///FEu6b67pqm8y/1uA0G1s0oYAu23dV//CuH3a/7xL80b51+ 9+1nX77u+OShQ92zx/vxZ59//MvP3/2Vk+7+ep/0yZ 9+/Lc//PmH73//9q//9fbtH/74x+/+/Ofvv/qw0975+t2Pf/j+j2//8jfN/+Vv3/5316yNP1U5l/2k/C XyN97U5dj//tev2h0Vt3SbF/zwi3/geBo7ang7aa/4Wpq4UWUw4kh/C3Q71w+6/v76+ge0216NmrCM7+ a4i012ghdqgY+/+cUal0FIoiOtbQ/XT+55EHj42//+ 375/Kuy579qcs84+4x0YiG867QYwIgqs/+ClErFd42GYxYQpgva2pLvF/LHJxOJBnXCwWAHIiqI5b/3+ x//4+7c/f/cb037B++sd+ZMIfc4NerRf1ptVvwjNdz/gV1+//eHH//j+z//7L24+qj/W/BU9yAzZ+fhp 7Bt9qfzeuG9+P1/3/oc//fjT6nc+oF5IH4F15J/e/+ I373/N17lwMw2dzM+hs31Q+7lDquBa7S5f00bij53kKNLsh4mIIHd+elsH++rnX//8/dt3/+f7f//Lkf M8uHb9/J9++8XPb1u/Rt/sb//153/2909bpX5CN5r/w3d//OARrw/cH967u3867+9/+U7Wi2TytW7+hx 9/ku1eiap+8V//8tzHil//6U8/fPTxBw3+sL2f/+l3 G99jRytFJZAI1Uuvl/+7//htF643vb+B5s75b8G3f04vdBw61iJ//49Xt/v9R1++/9W7r//fjvgu2J8+ 8te/fvfF+28+4iRwv+7+/4fcHzfyNnPO/eq7//S7A2d803+4muTZEge6Z37t9gr85a9T+du7T9+/po17 WnzjG+8Ncc585/CyCr3ChjZbZ/jt408++rE7F8zAew Nr+ofi7xj9/imKsHzdFrRqSNK2ulBtpIvlgmPyHdeSYFspXGQmCjh1NY3YmRIwNWTiU1I6UDUyme7nFN GdDFDohKDsCuUsBGTVSH8ZsAVeZF1RUTb5SOUzDYMwGlJuXKIpswA1FNXfRGTvVYPuQ2TsdmWmpFWpEB AgUj4+NR4go0XzEsVrYCDyOvv5IA0MbCJnIF7BvXMw kS2jskDgV183qiJuVPIlJtvcf8GuKNkmFMCDFB9XKAR5NVU2LGPuWn3+HD9jq3QoMsJvQBJyXqu8OW3Q wSWej5MtVU4GX9EnSEOnCXFEVEW8f5AwUJBejfgvzkivO6EvQEL4aL3nYXO4YFOcDFbyUQYsGMMfVYT8 TXBdIRpgBSMdCWZqUBOyBDLlJKc2hMTzYT2GR9JfCW ZpPWRSEHLvptCoQt6gOHUNUlWMJWssATjSGE8oNPD8STB9XYqyB9Z2NjivI4LvSA3AD9VvGXGmGHGXAU WuamMoZB4IpjJshW0aUWuLDABYCVoMCAyaYgN0t55lukWEFMBlMNYvEMltOUTfMWAlDQLhDVXsGJDpKM IrWAToUS8ZK0HzDJQbAZAZHUB9p0LsNCVagvfgtmqp Bv0pxmAiOfv+AplxUHIbd0TeWYdkL4A3uYYiD2FhY2GmFT5HtVDkOBffDCVyNBEeCKZvZ250ooDtVD3+ RL4xy0QbRobzQEWZBUBtVOJqPIZoPTB3OcKbKACqTVWiNPZqEnF7FjIrVdNISLFyJAZ2UrLcWEHqKUZq MWIjFKjcKHVeEAGsHRN0IFZtMCCgNR0uBcEeSGWaBy TjRaQePQZdDBXahoQBJOEgKSIeWAToPCZ7MYDrNMOfFSsnGEZoOCJpGJV3FMLbFJZlHJ2fDlUyDTBmGP PhIyeaNBRlARUrctISOFXaIDJaECD9AkVvVAVjWBPqWAgcHRQcTYMyNmd7HSMiBLUaVS3uPdJtYLFxIC I9DXgqZCHjENQwyhDBIFSsEDQyLAXdDrBrPPQjROAs DAtmSXIdFBAyZyXyIXTbWKYrXN5wTpGtXKKaOXH5QLAqQYPmHILnkeFAYLJtTNWxEYi8WNLfRLOpXJDi XAsrCEIpGXDcSBJ6ECAqKXGeSH2rFzPgRFGhQDSgUNCvAFLcVZOyciPEDEDwPNCeOIJ2NXEzKMMnHKEi CPzyPYXlBHXoUsi9XLNzPFFcSZ4kCiVhQYKaSPS8VB QdUXNiKJQnetYKEXKwLXK9DnpnFKIcABFdJVXcRTkmQTSaWJMbKnV4OTOhCAUfHJ1vZdVbGGKwEXX2Zq IvVAFgKZBknhWTSVApGMOjSXF1YyMiUCYxEBMePXxsAIGyCGBhOROsYLA6BFN5KAZmXnVuHWyjMAIEAV xKA9QhjuYxYwRVH8wwQj0nUqCxLXHLJ4Lcb1VnZN AwIFIKCj4+PoC7IPP2sXGsSfk9SgZ8CYfaBWXALd== ID Date Data Source [id number] 05/10/2020 05:09:07 AM [facility] Name Value Range Interpretation Code Description Data Vicky rce(s) Supporting Document(s) Color of Urine [facility] Clarity of Urine [facility] Specific gravity of Urine by Refractometry automated 1.003 -1.030 H [facility] pH of Urine by Automated test strip 6.0 5.0-8.0 [facility] Protein [Mass/volume] in Urine by Automated test strip Neg [facility] Glucose [Mass/volume] in Urine by Automated test strip Neg [facility] Ketones [Mass/volume] in Urine by Automated test strip Neg [facility] Bilirubin.total [Presence] in Urine by Automated test strip Negative [facility] Hemoglobin [Presence] in Urine by Automated test strip Neg [facility] Leukocyte esterase [Presence] in Urine by Automated test strip Negative [facility] Nitrite [Presence] in Urine by Automated test strip Negati ve [facility] Leukocytes [#/area] in Urine sediment by Automated count 0 /HPF 0 -5 [facility] Erythrocytes [#/area] in Urine sediment by Automated count 0 /HPF 0-3 [facility] ID Date Data Source [id number] 05/10/2020 03:07:09 AM [facility] Name Value Range Interpretation Code Description Data Vicky rce(s) Supporting Document(s) pH of Venous blood 7.33 7.36-7.41 L [facility] Carbon dioxide [Partial pressure] in Venous blood 49 mmHg 40-45 H [facility] Oxygen [Partial pressure] in Venous blood 26 mmHg [facility] Base excess standard in Venous blood by calculation 0 mmol/L [facility] Oxygen saturation Calculated from oxygen partial pressure in Venous blood 43 % 60-85 L [facility] Lactate [Moles/volume] in Venous blood 0.4 mmol/L 0.5-2.2 L [facility] Bicarbonate [Moles/volume] in Venous blood 28 mmol/L [facility] ID Date Data Source [id number] 05/10/2020 03:08:59 AM [facility] Name Value Range Interpretation Code Description Data Vicky rce(s) Supporting Document(s) Troponin I.cardiac [Mass/volume] in Blood 0.06 ng/mL 0.00-0.08 [facility] ID Date Data Source [id number] 05/10/2020 03:07:09 AM [facility] Name Value Range Interpretation Code Description Data Vicky rce(s) Supporting Document(s) Sodium [Moles/volume] in Blood 140 mmol/L 136-145 [facility] Potassium [Moles/volume] in Blood 3.5 mmol/L 3.4-5.1 [facility] Chloride [Moles/volume] in Blood 104 mmol/L 98-107 [facility] Carbon dioxide, total [Moles/volume] in Blood 26 mmol/L 22-29 [facility] Calcium.ionized [Moles/volume] in Blood 1.23 mmol/L 1.13-1.32 [facility] Glucose [Mass/volume] in Blood 105 mg/dL 70-140 [facility] Urea nitrogen [Mass/volume] in Blood 10 mg/dL 8-23 [facility] Creatinine [Mass/volume] in Blood 0.8 mg/dL 0.50-0.90 [facility] Hematocrit [Volume Fraction] of Blood 33 % 36-45 L [facility] Hemoglobin [Mass/volume] in Blood by calculation 11.2 g/dL 11.5-15.5 [facility] ID Date Data Source [id number] 05/15/2020 08:17:05 AM [facility] Cmnt XXX-Imp : Specimen source n ot given.Microorganism XXX Cult : No growth 5 days Name Value Range Interpretation Code Description Data Vicky rce(s) Supporting Document(s) ID Date Data Source [id number] 05/15/2020 08:17:05 AM EST [facility] Cmnt XXX-Imp : Specimen source n ot given.Microorganism XXX Cult : No growth 5 days Name Value Range Interpretation Code Description Data Vicky rce(s) Supporting Document(s) ID Date Data Source [id number] 05/10/2020 05:52:00 AM [facility] Name Value Range Interpretation Code Description Data Vicky rce(s) Supporting Document(s) Blood group antibodies identified in Serum or Plasma [facility] Blood bank comment [facility] ID Date Data Source [id number] 05/10/2020 02:48:00 AM EST [facility] Name Value Range Interpretation Code Description Data Vicky rce(s) Supporting Document(s) SARS-CoV-2 RNA [facility] This lab was ordered by [facility] and reported by [facility]. ID Date Data Source [id number] 05/10/2020 03:21:40 AM [facility] Name Value Range Interpretation Code Description Data Vicky rce(s) Supporting Document(s) Leukocytes [#/volume] in Blood by Automated count 14.8 10*3/uL 4-10 H [facility] Erythrocytes [#/volume] in Blood by Automated count 4.13 10*6/uL 4.1- 5.3 [facility] Hemoglobin [Mass/volume] in Blood 10.3 g/dL 11.5-15.5 [facility] Hematocrit [Volume Fraction] of Blood by Automated count 32.4 % 3 6-45 [facility] Erythrocyte mean corpuscular volume [Entitic volume] by Auto mated count 78.5 fL 80-96 [facility] Erythrocyte mean corpuscular hemoglobin [Entitic mass] by Automated count 24.8 pg 27-33 [facility] Erythrocyte mean corpuscular hemoglobin concentration [Mass/volume] by Automated count 31.6 g/dL 32.0-36.0 [facility] distribution width [Ratio] by Automated count 16.8 % 11.5-14.5 [facility] Platelets [#/volume] in Blood by Automated count 253 10*3/uL 150-400 [facility] Differential cell count method - Blood [facility] Neutrophils/100 leukocytes in Blood by Automated count 74 % [facility] Lymphocytes/100 leukocytes in Blood by Automated count 9 % [facility] Monocytes/100 leukocytes in Blood by Automated count 12 % [facility] Eosinophils/100 leukocytes in Blood by Automated count 4 % [facility] Basophils/100 leukocytes in Blood by Automated count 1 % [facility] Neutrophils [#/volume] in Blood by Automated count 10.99 10*3/uL 1.8- 7.0 H [facility] Lymphocytes [#/volume] in Blood by Automated count 1.28 10*3/uL 1.2-[address] [facility] Monocytes [#/volume] in Blood by Automated count 1.84 10*3/uL 0-0.8 H [facility] Eosinophils [#/volume] in Blood by Automated count 0.59 10*3/uL 0-0.5 H [facility] Basophils [#/volume] in Blood by Automated count 0.13 10*3/uL 0-0.2 [facility] Nucleated erythrocytes/100 leukocytes [Ratio] in Blood by Automated count 0 /100{WBCs} 0-0 [facility] ID Date Data Source [id number] 05/10/2020 03:50:05 AM [facility] Name Value Range Interpretation Code Description Data Vicky rce(s) Supporting Document(s) Bicarbonate [Moles/volume] in Serum 24 mmol/L 22-29 [facility] Chloride [Moles/volume] in Serum or Plasma 106 mmol/L 98-107 [facility] Creatinine [Mass/volume] in Serum or Plasma 0.71 mg/dL 0.50-0.90 [facility] Glucose [Mass/volume] in Serum or Plasma 105 mg/dL 70-140 [facility] Potassium [Moles/volume] in Serum or Plasma 3.3 mmol/L 3.4-5.1 [facility] Sodium [Moles/volume] in Serum or Plasma 137 mmol/L 136-145 [facility] Urea nitrogen [Mass/volume] in Serum or Plasma 10 mg/dL 8-23 [facility] Anion gap 3 in Serum or Plasma 7 mmol/L 8-15 L [facility] Osmolality of Serum or Plasma by calculation 283 mosm/kg 275-300 [facility] Creatinine/Urea nitrogen [Mass Ratio] in Serum or Plasma 14 [facility] Calcium [Mass/volume] in Serum or Plasma 7.9 mg/dL 8.8-10.2 L [facility] Glomerular filtration rate/1.73 sq M pre dicted among non-blacks [Volume Rate/Area] in Serum or Plasma by Creatinine-based formula (MDRD) 84 mL/min/1.73m2 >60 [facility] Glomerular filtration rate/1.73 sq M pre dicted among blacks [Volume Rate/Area] in Serum or Plasma by Creatinine-based formula (MDRD) >60 [facility] ID Date Data Source [id number] 05/10/2020 03:50:05 AM [facility] Name Value Range Interpretation Code Description Data Vicky rce(s) Supporting Document(s) Albumin [Mass/volume] in Serum or Plasma by Bromocresol green (BCG) dye binding method 2.7 g/dL 3.5-[facility].2 [facility] Bilirubin.total [Mass/volume] in Serum or Plasma 0.3 mg/dL <1.2 [facility] Bilirubin.direct [Mass/volume] in Serum or Plasma <0.3 [facility] Alkaline phosphatase [Enzymatic activity/volume] in Serum or Plasma 138 U/L 35-104 H [facility] Aspartate aminotransferase [Enzymatic activity/volume] in Serum or Plasma 15 U/L <32 [facility] Alanine aminotransferase [Enzymatic activity/volume] in Seru m or Plasma 12 U/L <33 [facility] Protein [Mass/volume] in Serum or Plasma 5.5 g/dL 6.4-8.3 L [facility] ID Date Data Source [id number] 05/10/2020 03:50:05 AM [facility] Value Range Interpretation Code Description Data Vicky rce(s) Supporting Document(s) Troponin T.cardiac [Mass/volume] in Serum or Plasma <0.01 [facility] ID Date Data Source [id number] 05/10/2020 03:50:05 AM [facility] Value Range Interpretation Code Description Data Vicky rce(s) Supporting Document(s) Thyrotropin [Units/volume] in Serum or Plasma 0.173 u[IU]/mL 0.270-4. 200 L [facility] ID Date Data Source [id number] 05/10/2020 04:35:37 AM [facility] Value Range Interpretation Code Description Data Vicky rce(s) Supporting Document(s) Natriuretic peptide.B prohormone N-Terminal [Mass/volu me] in Serum or Plasma 521 pg/mL <125 H [facility] ID Date Data Source [id number] 05/10/2020 04:35:37 AM [facility] Value Range Interpretation Code Description Data Vicky rce(s) Supporting Document(s) Lipase [Enzymatic activity/volume] in Serum or Plasma 14 U/L 13-6 0 [facility] ID Date Data Source [id number] 05/10/2020 04:35:37 AM [facility] Value Range Interpretation Code Description Data Vicky rce(s) Supporting Document(s) Magnesium [Mass/volume] in Serum or Plasma 1.8 mg/dL 1.6-2.4 [facility] ID Date Data Source [id number] 05/10/2020 04:42:57 AM [facility] Value Range Interpretation Code Description Data Vicky rce(s) Supporting Document(s) aPTT in Platelet poor plasma by Coagulation assay 33.4 s 24.0-33. 0 H [facility] ID Date Data Source [id number] 05/10/2020 04:42:57 AM [facility] Value Range Interpretation Code Description Data Vicky rce(s) Supporting Document(s) Prothrombin time (PT) 15.0 s 12.5-14.9 H [facility] INR in Platelet poor plasma by Coagulation assay 1.16 [facility] Routine intensity oral anticoagulation I NR is typically 2.0-3.0. Target INR must be clinically individualized. ID Date Data Source [id number] 05/10/2020 09:27:26 AM [facility] Value Range Interpretation Code Description Data Vicky rce(s) Supporting Document(s) Phosphate [Mass/volume] in Serum or Plasma 2.4 mg/dL 2.5-4.5 L [facility] ID Date Data Source [id number] 05/10/2020 05:49:31 AM [facility] Value Range Interpretation Code Description Data Vicky rce(s) Supporting Document(s) ABO and Rh group [Type] in Blood [facility] Inconclusive Result, repeat testing requ ired. Blood bank comment [facility] Inconclusive Result, repeat testing requ ired. Service comment [facility] ID Date Data Source [id number] 05/10/2020 05:04:49 AM 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 When did you start to experience these symptoms [Date and time] [PhenX] [id number] [facility] Patient was hospitalized because of this condition [facility] patient was admitted to ICU for [facility] Patient resides in a congregate care setting [facility] status [facility] ID Date Data Source [id number] 05/10/2020 05:04:03 AM [facility] Service Cmnt XXX-Imp : NoneRespiratory P CR Panel : PCR ResultsMicroorganism XXX Cult : See Labs Tab for 2019 nCoV RT-PCR resultsHAdV DNA QI SHAWNA+non-probe : Not DetectedHCoV [id number] Nph QI SHAWNA+non-probe : Not DetectedHCoV [id number] Nph QI SHAWNA+non-probe : Not [id number] RNA Nph QI SHAWNA+non-probe : Not [id number] RNA Upper resp QI SHAWNA+probe : Not DetectedhMPV RNA Nph QINAA+non-probe : Not DetectedRV+EV RNA Nph QI SHAWNA+non-probe : Not DetectedFLUAV RNA Nph QI SHAWNA+ non-probe : Not DetectedFLUBV RNA Nph QI SHAWNA+non-probe : Not DetectedHPIV1 RNA NphQINAA+non-probe : Not DetectedHPIV2 RNA Nph QINAA+non-probe : Not DetectedHPVI3 RNA Nph SHAWNA+non-probe : Not DetectedHPIV4 RNA Nph Q SHAWNA+non-probe : Not DetectedRSV RNA Nph Q SHAWNA+non-probe : Not DetectedB pert.PT PrmtNph Q SHAWNA+non-probe : Not DetectedC pneum DNA Nph Q SHAWNA+non-probe : Not DetectedM pneum DNA Nph Q SHAWNA+non-probe : Not DetectedB [id number] DNA Nph SHAWNA+non-probe : Not Detected Name Value Range Interpretation Code Description Data Vicky rce(s) Supporting Document(s) ID Date Data Source [id number] 05/10/2020 03:29:55 AM EST [facility] Name Value Range Interpretation Code Description Data Vicky rce(s) Supporting Document(s) Lactate [Moles/volume] in Serum or Plasma 0.6 mmol/l 0.5-2.2 [facility] ID Date Data Source [id number] 05/09/2020 08:53:00 PM EST [facility] Name Value Range Interpretation Code Description Data Vicky rce(s) Supporting Document(s) Appearance, Urine Laboratory test result Normal (applies to non-numeric results) [facility] ([facility] ) Color, Urine Laboratory test result Normal (applies to non -numeric results) [facility] ([facility] Specific [place] Urine Auto Laboratory test result 1.002-1.035 Above high normal [facility] ([facility] ) PH,Urine 6.0 units 5.0-9.0 Normal (applies to non-numeric resul ts) [facility] ([facility] Glucose, Urine (Ua) Auto Laboratory test result Normal (applies to non-numeric results) [facility] ([facility] ) Urobilinogen, Urine Auto 0.2 mg/dL 0.0-2.0 Normal (applies to non-numeric results) [facility] ([facility] ) Ketone, Urine Auto Laboratory test result Normal (applies to non-numeric results) [facility] ([facility] ) Protein, Urine Auto Laboratory test result Above high norm al [facility] ([facility] Bilirubin, Urine Auto Laboratory test result Nor mal (applies to non-numeric results) [facility] ([facility] ) Nitrite, Urine Auto Laboratory test result Angela l (applies to non-numeric results) [facility] ([facility] ) Leukocyte Esterase, Urine Auto Laboratory test result Abov e high normal [facility] ([facility] RBC, Urine Auto 3 /HPF 0-3 Normal (applies to non-numeric results) [facility] ([facility] WBC, Urine Auto 16 /HPF 0-3 Above high normal [facility] ([facility] Blood, Urine Blood Laboratory test result Normal (applies to non-numeric results) [facility] ([facility] ) Bacteria, Urine Auto Laboratory test result Norm al (applies to non-numeric results) [facility] Squamous Epithelial Cell Ur AU 0 /HPF 0-6 N ormal (applies to non-numeric results) [facility] ([facility] Hyaline Cast, Urine Auto 0 /LPF 0-1 Normal (applies to non -numeric results) [facility] ([facility] ID Date Data Source [id number] 05/09/2020 07:59:00 PM EST [facility] ([facility] Name Value Range Interpretation Code Description Data Vicky rce(s) Supporting Document(s) Influenza B Amplification Laboratory test result Normal (applies to non- numeric results) [facility] ([facility] ) Negative results do not preclude influen za or RSV virus infection and should not be used as the sole basis for treatment or other patient management decisions. Influenza A Amplification Laboratory test result Normal (applies to non- numeric results) [facility] ([facility] ) Negative results do not preclude influen za or RSV virus infection and should not be used as the sole basis for treatment or other patient management decisions. RSV Amplification Laboratory test result Normal (applies to non-numeric results) [facility] ([facility] ) Negative results do not preclude influen za or RSV virus infection and should not be used as the sole basis for treatment or other patient management decisions. Laboratory test finding (navigational concept) Laboratory test r esult Normal (applies to non-numeric results) [facility] A false negative result may occur if a s pecimen is improperly collected, transported or handled. False [...] pathogens. DISCLAIMER: Testing was performed using the [employer] SARS-CoV-2 test. This test was developed and its performance characteristics determined by [employer]. This test has not been FDA cleared [...] the authorization is terminated or revoked sooner. ID Date Data Source [id number] 05/09/2020 07:59:00 PM EST [facility] Name Value Range Interpretation Code Description Data Vicky rce(s) Supporting Document(s) SARS coronavirus 2 RNA [Presence] in Res piratory specimen by SHAWNA with probe detection [facility] This lab was ordered by [facility] a nd reported by [facility]. ID Date Data Source [id number] 05/09/2020 06:20:00 PM EST [facility] Name Value Range Interpretation Code Description Data Vicky rce(s) Supporting Document(s) Lipoprotein lipase [Enzymatic activity/volume] in Serum or P lasma 133 U/L 73-393 Normal (applies to non-numeric results) [facility] ([facility] <content>note:<nlbl:demographic_changed> </content>
<content></content> ID Date Data Source [id number] 05/09/2020 06:20:00 PM EST [facility] ([facility] Name Value Range Interpretation Code Description Data Vicky rce(s) Supporting Document(s) Blood Urea Nitrogen 14 mg/dL 7-18 Normal (applies to non-nume catei results) [facility] ([facility] Glucose, Fasting 127 mg/dL 70-100 Above high normal [facility] ([facility] Glomerular Filtration Rate Laboratory test result Normal (applies to non- numeric results) [facility] ([facility] ) <content>Units are mL/min/1.73 m2</content>
<content></content>
<content>Chronic Kidney Disease Staging per NKF:</content>
<content></content>
<content>Stage I & II GFR >=60 Normal to Mildly Decreased</content>
<content>Stage III GFR 30-59 Moderately Decreased</content>
<content>Stage IV GFR 15-29 Severely Decreased</content>
<content>Stage V GFR <15 Very Little GFR Left</content>
<content>ESRD GFR <15 on [facility]</content>
<content></content> Creatinine For GFR 0.89 mg/dL 0.55-1.30 Normal (applies to non -numeric results) [facility] ([facility] Sodium Level 138 meq/L 136-145 Normal (applies to non-numeric res ults) [facility] Potassium Serum 3.6 meq/L 3.5-5.1 Normal (applies to non-numeric results) [facility] ([facility] Carbon Dioxide Level 27 meq/L 21-32 Normal (applies to non-num epifanio results) [facility] ([facility] Chloride Level 101 meq/L 98-107 Normal (applies to non-numeric r esults) [facility] [facility] Calcium Level 9.1 mg/dL 8.8-10.2 Normal (applies to non-numeric re sults) [facility] Anion Gap 10 meq/L 8-16 Normal (applies to non-numeric resul ts) [facility] ([facility] ID Date Data Source [id number] 05/09/2020 06:20:00 PM EST [facility] ([facility] Name Value Range Interpretation Code Description Data Vicky rce(s) Supporting Document(s) Alt/SGPT 22 U/L 12-78 Normal (applies to non-numeric resul ts) [facility] ([facility] Ast/Sgot 24 U/L 7-37 Normal (applies to non-numeric resul ts) [facility] ([facility] Bilirubin,Direct 0.2 mg/dL 0.0-0.2 Normal (applies to non-numeric results) [facility] ([facility] Bilirubin,Total 0.4 mg/dL 0.2-1.0 Normal (applies to non-numeric results) [facility] ([facility] Alkaline Phosphatase 174 U/L 45-117 Above high normal [facility] ([facility] Albumin 2.7 GM/DL 3.2-5.2 Below low normal [facility] Total Protein 6.7 GM/DL 6.4-8.2 Normal (applies to non-numeric re sults) [facility] ([facility] Albumin/Globulin Ratio 0.7 1.2-2.2 Below low normal [facility] ([facility] ID Date Data Source [id number] 05/09/2020 06:20:00 PM EST [facility] ([facility] Name Value Range Interpretation Code Description Data Vicky rce(s) Supporting Document(s) CPK Creatine Phosphokinase 18 U/L 26-192 Below low normal [facility] MB/CK Relative Index 5.56 Above high normal [facility] ([facility] <content>DIAGNOSIS CRITERIA</content>
<content>MMB ng/ml Relative Index (RI)</content>
<content>NON-AMI < or = 5 N/A</content>
<content>AQUINO ZONE > 5 < or = 4</content>
<content>AMI > 5 > 4</content>
<content></content> CK-MB Value Mass Laboratory test result Normal ( applies to non-numeric results) [facility] ([facility] ) Troponin I Laboratory test result Normal (applies to non-n umeric results) [facility] ([facility] <content>Troponin I Reference Interval f or Siemens [place] LOCI:</content>
<content></content>
<content>99th Percentile= 0.00-0.045 ng/ml</content>
<content></content>
<content>Risk Stratification:</content>
<content><= 0.10 ng/ml Decreased Risk for Adverse Clinical</content>
<content>Events.</content>
<content>0.10-1.50 ng/ml Increased Risk for Adverse Clinical</content>
<content>Events. Evaluation of additional</content>
<content>criterion and/or repeat testing in 2-6</content>
<content>hours is suggested to rule out myocardial</content>
<content>damage.</content>
<content>>= 1.50 ng/ml Indicative of Myocardial Injury.</content>
<content></content> ID Date Data Source [id number] 05/09/2020 06:20:00 PM EST [facility] ([facility] Name Value Range Interpretation Code Description Data Vicky rce(s) Supporting Document(s) aPTT in Platelet poor plasma by Coagulation assay 36.0 s 24.2-38.5 Normal (applies to non-numeric results) [facility] ([facility] Lactate [Mass/volume] in Serum or Plasma 1.1 mmol/L 0.4-2.0 Normal (applies to non-numeric results) [facility] ([facility]) <content>note:<nlbl:demographic_changed> </content>
<content>Y/N query for Sepsis Lactate Rule: Y</content>
<content></content> ID Date Data Source [id number] 05/09/2020 06:20:00 PM EST [facility] ([facility] Name Value Range Interpretation Code Description Data Vicky rce(s) Supporting Document(s) Prothrombin Time 13.7 s 12.5-14.3 Normal (applies to non-numeric results) [facility] ([facility] Inr 1.03 Normal (applies to non-numeric resul ts) [facility] ([facility] THERAPUTIC HUMAN INR VALUES INDICATIONS NORMAL RANGES PROPHYLAXIS/TREATMENT OF: VENOUS THROMBOSIS 2.0-3.0 PULMONARY EMBOLISM 2.0-3.0 PREVENTION OF SYSTEMIC EMBOLISM FROM: TISSUE HEART VALVES 2.0-3.0 ACUTE MYOCARDIAL INFARCTION 2.0-3.0 VALVULAR HEART DISEASE 2.0-3.0 ATRIAL FIBRILLATION 2.0-3.0 MECHANICAL VALVES(HIGH RISK) 2.5-3.5 RECURRENT MYOCARDIAL INFARCTION 2.5-3.5 ID Date Data Source [id number] 05/09/2020 06:20:00 PM EST [facility] ([facility] Name Value Range Interpretation Code Description Data Vicky rce(s) Supporting Document(s) White Blood Count 20.6 10 4.0-10.0 Above high normal [facility] ([facility] Hemoglobin 11.9 g/dL 12.0-15.5 Below low normal [facility] ( [facility] Hematocrit 38.5 % 36.0-47.0 Normal (applies to non-numeric resul ts) [facility] ([facility] Red Blood Count 4.69 10 4.00-5.40 Normal (applies to non-numeric results) [facility] ([facility] Red Cell Distribution Width 16.6 % 11.5-14.5 Above high normal [facility] ([facility] Mean Corpuscular Volume 82.1 fl 80.0-96.0 Normal ( applies to non-numeric results) [facility] ([facility] Mean Corpuscular Hemoglobin 25.4 pg 27.0-33.0 Below low normal [facility] ([facility] Mean Corpuscular HGB Conc 30.9 g/dL 32.0-36.5 Below low normal [facility] ([facility] Platelet Count, Automated 298 10 150-450 Normal (applies to non-numeric results) [facility] ([facility] ) Neutrophils % 79.7 % 36.0-66.0 Above high normal MEDE NT ([facility] Lymph % 5.1 % 24.0-44.0 Below low normal [facility] ( [facility] Baso % 0.5 % 0.0-1.0 Normal (applies to non-numeric resul ts) [facility] ([facility] Eos % 3.2 % 0.0-3.0 Above high normal [facility] ([facility] Ferry % 10.5 % 0.0-5.0 Above high normal [facility] ([facility] Nucleated Red Blood Cell % 0.0 % 0-0 Normal (applies to n on-numeric results) [facility] ([facility] Immature Granulocyte % 1.0 % 0-3.0 Normal (applies to non-n umeric results) [facility] ([facility] Lymph # 1.1 10 1.5-5.0 Below low normal [facility] ( [facility] Neutrophils # 16.4 10 1.5-8.5 Above high normal MEDE NT ([facility] Ferry # 2.2 10 0.0-0.8 Above high normal [facility] ([facility] Eos # 0.7 10 0.0-0.5 Above high normal [facility] ([facility] Baso # 0.1 10 0.0-0.2 Normal (applies to non-numeric resul ts) [facility] ([facility] ID Date Data Source [id number] 05/05/2020 11:53:00 AM EST [facility] ([facility] Name Value Range Interpretation Code Description Data Vicky rce(s) Supporting Document(s) WBC 11.1 10E3/uL 4.1-10.9 Above high normal MEDEN T ([facility] NORMAL RANGES Age WBC RBC HGB HCT [...] HCT IS 5% LESS SOURCE FOR DATA: [employer] 1800 OPERATION MANUAL( AUTOMATED BLOOD COUNTS AND [...] Normal 80 and above >32 mL/min Normal HCT 40.6 % 37.0-51.0 [facility] ([facility] NORMAL RANGES Age WBC RBC HGB HCT [...] HCT IS 5% LESS SOURCE FOR DATA: [employer] 1800 OPERATION MANUAL( AUTOMATED BLOOD COUNTS AND [...] Normal 80 and above >32 mL/min Normal HGB 12.5 g/dL 12.0-18.0 [facility] ([facility] NORMAL RANGES Age WBC RBC HGB HCT [...] HCT IS 5% LESS SOURCE FOR DATA: [employer] 1800 OPERATION MANUAL( AUTOMATED BLOOD COUNTS AND [...] Normal 80 and above >32 mL/min Normal RBC 4.93 10E6/uL 4.20-6.30 REGINE ([facility] NORMAL RANGES Age WBC RBC HGB HCT [...] HCT IS 5% LESS SOURCE FOR DATA: [employer] 1800 OPERATION MANUAL( AUTOMATED BLOOD COUNTS AND [...] Normal 80 and above >32 mL/min Normal MCH 25.4 pg 26.0-32.0 Below low normal [facility] ( [facility] NORMAL RANGES Age WBC RBC HGB HCT [...] HCT IS 5% LESS SOURCE FOR DATA: [employer] 1800 OPERATION MANUAL( AUTOMATED BLOOD COUNTS AND [...] Normal 80 and above >32 mL/min Normal MCV 82.4 fL 80.0-97.0 [facility] NORMAL RANGES Age WBC RBC HGB HCT [...] HCT IS 5% LESS SOURCE FOR DATA: JOS ER DYN 1800 OPERATION MANUAL( AUTOMATED BLOOD COUNTS [...] Normal 80 and above >32 mL/min Normal PLT 440 10E3/uL 140-440 SIMI ([facility] NORMAL RANGES Age WBC RBC HGB HCT [...] HCT IS 5% LESS SOURCE FOR DATA: [employer] DYN 1800 OPERATION MANUAL( AUTOMATED BLOOD COUNTS [...] Normal 80 and above >32 mL/min Normal RDW-CV 16.1 % 11.5-14.5 Above high normal [facility] ([facility] NORMAL RANGES Age WBC RBC HGB HCT [...] HCT IS 5% LESS SOURCE FOR DATA: [employer] 1800 OPERATION MANUAL( AUTOMATED BLOOD COUNTS AND [...] Normal 80 and above >32 mL/min Normal MCHC 30.8 g/dL 31.0-36.0 Below low normal [facility] ( [facility] NORMAL RANGES Age WBC RBC HGB HCT [...] HCT IS 5% LESS SOURCE FOR DATA: [employer] 1800 OPERATION MANUAL( AUTOMATED BLOOD COUNTS AND [...] Normal 80 and above >32 mL/min Normal MXD% 10.8 % 0.1-24.0 [facility] NORMAL RANGES Age WBC RBC HGB HCT [...] HCT IS 5% LESS SOURCE FOR DATA: [employer] 1800 OPERATION MANUAL( AUTOMATED BLOOD COUNTS AND [...] Normal 80 and above >32 mL/min Normal Neut% 77.6 % 37.0-92.0 [facility] ([facility] NORMAL RANGES Age WBC RBC HGB HCT [...] HCT IS 5% LESS SOURCE FOR DATA: [employer] 1800 OPERATION MANUAL( AUTOMATED BLOOD COUNTS AND [...] Normal 80 and above >32 mL/min Normal Lym% 11.6 % 10.0-58.5 MED[facility] ([facility] NORMAL RANGES Age WBC RBC HGB HCT [...] HCT IS 5% LESS SOURCE FOR DATA: [employer] 1800 OPERATION MANUAL( AUTOMATED BLOOD COUNTS AND [...] Normal 80 and above >32 mL/min Normal Neut# 8.6 % 2.0-7.8 Above high normal [facility] ([facility] NORMAL RANGES Age WBC RBC HGB HCT [...] HCT IS 5% LESS SOURCE FOR DATA: [employer] 1800 OPERATION MANUAL( AUTOMATED BLOOD COUNTS AND [...] Normal 80 and above >32 mL/min Normal Lym# 1.3 10E3/uL 0.6-4.1 [facility] ([facility] NORMAL RANGES Age WBC RBC HGB HCT [...] HCT IS 5% LESS SOURCE FOR DATA: [employer] 1800 OPERATION MANUAL( AUTOMATED BLOOD COUNTS AND [...] Normal 80 and above >32 mL/min Normal MPV 9.9 fL 9.0-13.0 [facility] ([facility] NORMAL RANGES Age WBC RBC HGB HCT [...] 5% LESS SOURCE FOR DATA: JOSE R [employer] 1800 OPERATION MANUAL( AUTOMATED BLOOD COUNTS AND [...] Normal 80 and above >32 mL/min Normal MXD# 1.2 10E3/uL 0.0-1.8 SIMI ([facility] NORMAL RANGES Age WBC RBC HGB HCT [...] HCT IS 5% LESS SOURCE FOR DATA: [employer] 1800 OPERATION MANUAL( AUTOMATED BLOOD COUNTS AND [...] Normal 80 and above >32 mL/min Normal ID Date Data Source [id number] 05/05/2020 11:53:00 AM EST REGINE ([facility] Name Value Range Interpretation Code Description Data Vicky rce(s) Supporting Document(s) Glu 107 mg/dL 70-110 MEDREI ([facility] NORMAL RANGES Age WBC RBC HGB HCT [...] HCT IS 5% LESS SOURCE FOR DATA: [employer] 1800 OPERATION MANUAL( AUTOMATED BLOOD COUNTS AND [...] Normal 80 and above >32 mL/min Normal BUN 9 mg/dL 8-23 [facility] ([facility] NORMAL RANGES Age WBC RBC HGB HCT [...] HCT IS 5% LESS SOURCE FOR DATA: [employer] 1800 OPERATION MANUAL( AUTOMATED BLOOD COUNTS AND [...] Normal 80 and above >32 mL/min Normal Creat 0.9 mg/dL 0.5-1.0 [facility] ([facility] NORMAL RANGES Age WBC RBC HGB HCT [...] HCT IS 5% LESS SOURCE FOR DATA: [employer] 1800 OPERATION MANUAL( AUTOMATED BLOOD COUNTS AND [...] Normal 80 and above >32 mL/min Normal Na 137 mmol/L 136-145 [facility] ([facility] NORMAL RANGES Age WBC RBC HGB HCT [...] HCT IS 5% LESS SOURCE FOR DATA: [employer] 1800 OPERATION MANUAL( AUTOMATED BLOOD COUNTS AND [...] Normal 80 and above >32 mL/min Normal BUN/Creatinine Ratio 10 Calc [facility] ([facility] NORMAL RANGES Age WBC RBC HGB HCT [...] HCT IS 5% LESS SOURCE FOR DATA: [employer] 1800 OPERATION MANUAL( AUTOMATED BLOOD COUNTS AND [...] Normal 80 and above >32 mL/min Normal K 3.9 mmol/L 3.5-5.1 [facility] ([facility] NORMAL RANGES Age WBC RBC HGB HCT [...] HCT IS 5% LESS SOURCE FOR DATA: [employer] DYN 1800 OPERATION MANUAL( AUTOMATED BLOOD COUNTS [...] Normal 80 and above >32 mL/min Normal CL 100.5 mmol/L 98.0-107.0 SHENGREI ([facility] NORMAL RANGES Age WBC RBC HGB HCT [...] HCT IS 5% LESS SOURCE FOR DATA: [employer] 1800 OPERATION MANUAL( AUTOMATED BLOOD COUNTS AND [...] Normal 80 and above >32 mL/min Normal Co2 22.1 mmol/L 22.0-29.0 [facility] NORMAL RANGES Age WBC RBC HGB HCT [...] HCT IS 5% LESS SOURCE FOR DATA: [employer] 1800 OPERATION MANUAL( AUTOMATED BLOOD COUNTS AND [...] Normal 80 and above >32 mL/min Normal Alb 3.8 g/dL 3.4-4.8 [facility] NORMAL RANGES Age WBC RBC HGB HCT MCV PLT Adult M 4.1-10.9 4.20-6.30 12.0-18.0 37.0-51.0 80-97 140-440 Adult F 4.1-10.9 4.04-5.48 12.0-18.0 37.0-51.0 80- 140-440 0 -1 Yr 5.0-20.0 3.9-5.9 15-18 [...] HCT IS 5% LESS SOURCE FOR DATA: [employer] 1800 OPERATION MANUAL( AUTOMATED BLOOD COUNTS AND [...] Normal 80 and above >32 mL/min Normal CA 10.0 mg/dL 8.6-10.2 [facility] NORMAL RANGES Age WBC RBC HGB HCT [...] HCT IS 5% LESS SOURCE FOR DATA: [employer] 1800 OPERATION MANUAL( AUTOMATED BLOOD COUNTS AND [...] Normal 80 and above >32 mL/min Normal TP 6.6 g/dL 6.6-8.7 [facility] ([facility] NORMAL RANGES Age WBC RBC HGB HCT [...] HCT IS 5% LESS SOURCE FOR DATA: [employer] 1800 OPERATION MANUAL( AUTOMATED BLOOD COUNTS AND [...] Normal 80 and above >32 mL/min Normal Globulin 2.8 Calc [facility] ([facility] NORMAL RANGES Age WBC RBC HGB HCT [...] HCT IS 5% LESS SOURCE FOR DATA: [employer] 1800 OPERATION MANUAL( AUTOMATED BLOOD COUNTS AND [...] Normal 80 and above >32 mL/min Normal A/G Ratio 1.4 Calc [facility] ([facility] NORMAL RANGES Age WBC RBC HGB HCT [...] HCT IS 5% LESS SOURCE FOR DATA: [employer] 1800 OPERATION MANUAL( AUTOMATED BLOOD COUNTS AND [...] Normal 80 and above >32 mL/min Normal Alp 179.5 U/L 35-129 Above high normal [facility] ([facility] NORMAL RANGES Age WBC RBC HGB HCT [...] HCT IS 5% LESS SOURCE FOR DATA: [employer] 1800 OPERATION MANUAL( AUTOMATED BLOOD COUNTS AND [...] Normal 80 and above >32 mL/min Normal Alt (SGPT) 15 U/L 0-41 [facility] ([facility] NORMAL RANGES Age WBC RBC HGB HCT [...] HCT IS 5% LESS SOURCE FOR DATA: [employer] 1800 OPERATION MANUAL( AUTOMATED BLOOD COUNTS AND [...] Normal 80 and above >32 mL/min Normal Ast (Sgot) 17 U/L 0-40 [facility] ([facility] NORMAL RANGES Age WBC RBC HGB HCT [...] HCT IS 5% LESS SOURCE FOR DATA: [employer] 1800 OPERATION MANUAL( AUTOMATED BLOOD COUNTS AND [...] Normal 80 and above >32 mL/min Normal Tbili 0.33 mg/dL 0.0-1.2 [facility] ([facility] NORMAL RANGES Age WBC RBC HGB HCT [...] HCT IS 5% LESS SOURCE FOR DATA: [employer] 1800 OPERATION MANUAL( AUTOMATED BLOOD COUNTS AND [...] Normal 80 and above >32 mL/min Normal Osmolality-Calculated 273.0 Calc MED [facility] ([facility] NORMAL RANGES Age WBC RBC HGB HCT [...] Normal 80 and above >32 mL/min Normal Anion Gap 18.3 mmol/L [facility] NORMAL RANGES Age WBC RBC HGB HCT MCV PLT Adult M 4.1-10.9 4.20-6.30 12.0-18.0 37.0-51.0 80-97 140-440 Adult F 4.1-10.9 4.04-5.48 12.0-18.0 37.0-51.0 80- 140-440 0 -1 Yr 5.0-20.0 3.9-5.9 15-18 [...] HCT IS 5% LESS SOURCE FOR DATA: [employer] 1800 OPERATION MANUAL( AUTOMATED BLOOD COUNTS AND [...] Normal 80 and above >32 mL/min Normal eGFR Non-Afr. Hungarian 63 # [facility] ([facility] NORMAL RANGES Age WBC RBC HGB HCT [...] HCT IS 5% LESS SOURCE FOR DATA: [employer] 1800 OPERATION MANUAL( AUTOMATED BLOOD COUNTS AND [...] Normal 80 and above >32 mL/min Normal eGFR 74 # [facility] ( [facility] NORMAL RANGES Age WBC RBC HGB HCT [...] HCT IS 5% LESS SOURCE FOR DATA: [employer] 1800 OPERATION MANUAL( AUTOMATED BLOOD COUNTS AND [...] Normal 80 and above >32 mL/min Normal ID Date Data Source [id number] 05/02/2020 10:32:00 AM EST [facility] ([facility] Name Value Range Interpretation Code Description Data Vicky rce(s) Supporting Document(s) Thyroid Stimulating Hormone 0.311 uIU/ML 0.358-3.740 [facility] ([facility]) Free T4 1.79 ng/dL 0.76-1.46 [facility] ([facility]) ID Date Data Source [id number] 05/01/2020 09:44:00 AM EST [facility] ([facility] Name Value Range Interpretation Code Description Data Vicky rce(s) Supporting Document(s) Prothrombin Time 14.6 s 12.5-14.3 Above high normal M EDENT ([facility] Inr 1.12 Normal (applies to non-numeric resul ts) [facility] ([facility] THERAPUTIC HUMAN INR VALUES INDICATIONS NORMAL RANGES PROPHYLAXIS/TREATMENT OF: VENOUS THROMBOSIS 2.0-3.0 PULMONARY EMBOLISM 2.0-3.0 PREVENTION OF SYSTEMIC EMBOLISM FROM: TISSUE HEART VALVES 2.0-3.0 ACUTE MYOCARDIAL INFARCTION 2.0-3.0 VALVULAR HEART DISEASE 2.0-3.0 ATRIAL FIBRILLATION 2.0-3.0 MECHANICAL VALVES(HIGH RISK) 2.5-3.5 RECURRENT MYOCARDIAL INFARCTION 2.5-3.5 ID Date Data Source [id number] 04/23/2020 05:11:00 PM EST [facility] ([facility] Name Value Range Interpretation Code Description Data Vicky rce(s) Supporting Document(s) Glucose, Fasting 128 mg/dL 70-100 Above high normal M [facility] ([facility] Creatinine For GFR 1.03 mg/dL 0.55-1.30 Normal (applies to non -numeric results) [facility] ([facility] Blood Urea Nitrogen 21 mg/dL 7-18 Above high normal [facility] ([facility] Glomerular Filtration Rate 55.9 Normal (applies to n on-numeric results) [facility] ([facility] <content>Units are mL/min/1.73 m2</content>
<content></content>
<content>Chronic Kidney Disease Staging per NKF:</content>
<content></content>
<content>Stage I & II GFR >=60 Normal to Mildly Decreased</content>
<content>Stage III GFR 30- 59 Moderately Decreased</content>
<content>Stage IV GFR 15-29 Severely Decreased</content>
<content>Stage V GFR <15 Very Little GFR Left</content>
<content>ESRD GFR <15 on SKIMMER REVERBERATORY</content>
<content></content> Potassium Serum 3.5 meq/L 3.5-5.1 Normal (applies to non-numeric results) [facility] ([facility] Chloride Level 102 meq/L 98-107 Normal (applies to non-numeric r esults) [facility] ([facility] Sodium Level 137 meq/L 136-145 Normal (applies to non-numeric res ults) [facility] ([facility] Carbon Dioxide Level 27 meq/L 21-32 Normal (applies to non-num epifanio results) [facility] ([facility] Anion Gap 8 meq/L 8-16 Normal (applies to non-numeric resul ts) [facility] ([facility] Calcium Level 9.7 mg/dL 8.8-10.2 Normal (applies to non-numeric re sults) [facility] ([facility] ID Date Data Source [id number] 04/23/2020 05:11:00 PM EST [facility] ([facility] Name Value Range Interpretation Code Description Data Vicky rce(s) Supporting Document(s) Alt/SGPT 64 U/L 12-78 Normal (applies to non-numeric resul ts) [facility] ([facility] Ast/Sgot 45 U/L 7-37 Above high normal [facility] ([facility] Alkaline Phosphatase 237 U/L 45-117 Above high normal [facility] ([facility] Bilirubin,Direct 0.1 mg/dL 0.0-0.2 Normal (applies to non-numeric results) [facility] ([facility] Bilirubin,Total 0.4 mg/dL 0.2-1.0 Normal (applies to non-numeric results) [facility] ([facility] Albumin/Globulin Ratio 0.7 1.2-2.2 Below low normal [facility] ([facility] Albumin 3.2 GM/DL 3.2-5.2 Normal (applies to non-numeric resul ts) [facility] ([facility] Total Protein 7.5 GM/DL 6.4-8.2 Normal (applies to non-numeric re sults) [facility] ([facility] ID Date Data Source [id number] 04/23/2020 05:11:00 PM EST [facility] ([facility] Name Value Range Interpretation Code Description Data Vicky rce(s) Supporting Document(s) Prothrombin Time 22.5 s 12.5-14.3 Above high normal M [facility] ([facility] Inr 1.93 Normal (applies to non-numeric resul ts) [facility] ([facility] THERAPUTIC HUMAN INR VALUES INDICATIONS NORMAL RANGES PROPHYLAXIS/TREATMENT OF: VENOUS THROMBOSIS 2.0-3.0 PULMONARY EMBOLISM 2.0-3.0 PREVENTION OF SYSTEMIC EMBOLISM FROM: TISSUE HEART VALVES 2.0-3.0 ACUTE MYOCARDIAL INFARCTION 2.0-3.0 VALVULAR HEART DISEASE 2.0-3.0 ATRIAL FIBRILLATION 2.0-3.0 MECHANICAL VALVES(HIGH RISK) 2.5-3.5 RECURRENT MYOCARDIAL INFARCTION 2.5-3.5 ID Date Data Source [id number] 04/23/2020 05:11:00 PM EST [facility] ([facility] Name Value Range Interpretation Code Description Data Vicky rce(s) Supporting Document(s) White Blood Count 12.4 10 4.0-10.0 Above high normal [facility] ([facility] Hemoglobin 12.6 g/dL 12.0-15.5 Normal (applies to non-numeric resul ts) [facility] ([facility] Red Blood Count 5.11 10 4.00-5.40 Normal (applies to non-numeric results) [facility] ([facility] Mean Corpuscular Volume 81.8 fl 80.0-96.0 Normal ( applies to non-numeric results) [facility] Mean Corpuscular Hemoglobin 24.7 pg 27.0-33.0 Below low normal MEDENT ([facility] Hematocrit 41.8 % 36.0-47.0 Normal (applies to non-numeric resul ts) [facility] ([facility] Mean Corpuscular HGB Conc 30.1 g/dL 32.0-36.5 Below low normal [facility] ([facility] Red Cell Distribution Width 15.1 % 11.5-14.5 Above high normal [facility] ([facility] Platelet Count, Automated 218 10 150-450 Normal (applies to non-numeric results) [facility] ([facility] Lymph % 10.7 % 24.0-44.0 Below low normal [facility] ( [facility] Neutrophils % 69.8 % 36.0-66.0 Above high normal MEDE NT ([facility] Ferry % 11.2 % 0.0-5.0 Above high normal [facility] ([facility] Baso % 0.8 % 0.0-1.0 Normal (applies to non-numeric resul ts) [facility] ([facility] Immature Granulocyte % 0.4 % 0-3.0 Normal (applies to non-n umeric results) [facility] ([facility] Eos % 7.1 % 0.0-3.0 Above high normal [facility] ([facility] Nucleated Red Blood Cell % 0.0 % 0-0 Normal (applies to n on-numeric results) [facility] ([facility] Lymph # 1.3 10 1.5-5.0 Below low normal [facility] ( [facility] Neutrophils # 8.7 10 1.5-8.5 Above high normal MEDE NT ([facility] Baso # 0.1 10 0.0-0.2 Normal (applies to non-numeric resul ts) [facility] ([facility] Ferry # 1.4 10 0.0-0.8 Above high normal [facility] ([facility] Eos # 0.9 10 0.0-0.5 Above high normal [facility] ([facility] ID Date Data Source [id number] 04/15/2020 03:18:00 PM EST [facility] ([facility] Name Value Range Interpretation Code Description Data Vicky rce(s) Supporting Document(s) Prothrombin Time-Therapy 61.0 MEDEN T ([facility] INR in Platelet poor plasma by Coagulation assay 5.1 MED[facility] ([facility] Comment 1 Laboratory test result ME DENT ([facility] Dosage Laboratory test result [facility] ([facility] Recheck Laboratory test result REG[facility] ([facility] Denise Patterson) ID Date Data Source [id number] 03/17/2020 02:56:00 PM EDT [facility] ([facility] Denise Sanabria) Name Value Range Interpretation Code Description Data Vicky rce(s) Supporting Document(s) Glu 85 mg/dL 70-110 [facility] ([facility] Den[facility] Patterson) NORMAL RANGES Age WBC RBC HGB HCT [...] HCT IS 5% LESS SOURCE FOR DATA: Isonas 1800 OPERATION MANUAL( AUTOMATED BLOOD COUNTS AND [...] Normal 80 and above >32 mL/min Normal BUN 14 mg/dL 8- [facility] NORMAL RANGES Age WBC RBC HGB HCT [...] HCT IS 5% LESS SOURCE FOR DATA: Confovis DYN 1800 OPERATION MANUAL( AUTOMATED BLOOD COUNTS [...] Normal 80 and above >32 mL/min Normal Creat 0.8 mg/dL 0.5-1.0 [facility] NORMAL RANGES Age WBC RBC HGB HCT [...] HCT IS 5% LESS SOURCE FOR DATA: Isonas 1800 OPERATION MANUAL( AUTOMATED BLOOD COUNTS AND [...] Normal 80 and above >32 mL/min Normal BUN/Creatinine Ratio 18.2 [facility] NORMAL RANGES Age WBC RBC HGB HCT [...] HCT IS 5% LESS SOURCE FOR DATA: Isonas 1800 OPERATION MANUAL( AUTOMATED BLOOD COUNTS AND [...] Normal 80 and above >32 mL/min Normal Na 135 mmol/L 136-145 Below low normal [facility] NORMAL RANGES Age WBC RBC HGB HCT [...] HCT IS 5% LESS SOURCE FOR DATA: Isonas 1800 OPERATION MANUAL( AUTOMATED BLOOD COUNTS AND [...] Normal 80 and above >32 mL/min Normal K 3.3 mmol/L 3.5-5.1 Below low normal [facility] ( [facility] NORMAL RANGES Age WBC RBC HGB HCT [...] HCT IS 5% LESS SOURCE FOR DATA: Isonas 1800 OPERATION MANUAL( AUTOMATED BLOOD COUNTS AND [...] Normal 80 and above >32 mL/min Normal CL 99.2 mmol/L 98.0-107.0 [facility] NORMAL RANGES Age WBC RBC HGB HCT [...] HCT IS 5% LESS SOURCE FOR DATA: Isonas 1800 OPERATION MANUAL( AUTOMATED BLOOD COUNTS AND [...] Normal 80 and above >32 mL/min Normal Co2 23.2 mmol/L 22.0-29.0 [facility] ([facility] NORMAL RANGES Age WBC RBC HGB HCT [...] HCT IS 5% LESS SOURCE FOR DATA: Isonas 1800 OPERATION MANUAL( AUTOMATED BLOOD COUNTS AND [...] Normal 80 and above >32 mL/min Normal CA 10.0 mg/dL 8.6-10.2 [facility] ([facility] NORMAL RANGES Age WBC RBC HGB HCT [...] HCT IS 5% LESS SOURCE FOR DATA: Isonas 1800 OPERATION MANUAL( AUTOMATED BLOOD COUNTS AND [...] Normal 80 and above >32 mL/min Normal TP 6.9 g/dL 6.6-8.7 [facility] ([facility] NORMAL RANGES Age WBC RBC HGB HCT [...] HCT IS 5% LESS SOURCE FOR DATA: Isonas 1800 OPERATION MANUAL( AUTOMATED BLOOD COUNTS AND [...] Normal 80 and above >32 mL/min Normal Alb 3.9 g/dL 3.4-4.8 [facility] NORMAL RANGES Age WBC RBC HGB HCT [...] Normal 80 and above >32 mL/min Normal Globulin 3.0 CALC [facility] ([facility] NORMAL RANGES Age WBC RBC HGB HCT [...] HCT IS 5% LESS SOURCE FOR DATA: Confovis DYN 1800 OPERATION MANUAL( AUTOMATED BLOOD COUNTS [...] Normal 80 and above >32 mL/min Normal A/G Ratio 1.3 CALC SIMI [facility] NORMAL RANGES Age WBC RBC HGB HCT [...] HCT IS 5% LESS SOURCE FOR DATA: Isonas 1800 OPERATION MANUAL( AUTOMATED BLOOD COUNTS AND [...] Normal 80 and above >32 mL/min Normal Alp 160.9 U/L 35-129 Above high normal [facility] ([facility] NORMAL RANGES Age WBC RBC HGB HCT [...] HCT IS 5% LESS SOURCE FOR DATA: Isonas 1800 OPERATION MANUAL( AUTOMATED BLOOD COUNTS AND [...] Normal 80 and above >32 mL/min Normal Alt (SGPT) 10 U/L 0-41 [facility] ([facility] NORMAL RANGES Age WBC RBC HGB HCT [...] HCT IS 5% LESS SOURCE FOR DATA: Isonas 1800 OPERATION MANUAL( AUTOMATED BLOOD COUNTS AND [...] Normal 80 and above >32 mL/min Normal Ast (Sgot) 13 U/L 0-40 [facility] NORMAL RANGES Age WBC RBC HGB HCT [...] HCT IS 5% LESS SOURCE FOR DATA: Isonas 1800 OPERATION MANUAL( AUTOMATED BLOOD COUNTS AND [...] Normal 80 and above >32 mL/min Normal Osmolality-Calculated 270.1 CALC MED ENT ([facility] NORMAL RANGES Age WBC RBC HGB HCT [...] HCT IS 5% LESS SOURCE FOR DATA: Isonas 1800 OPERATION MANUAL( AUTOMATED BLOOD COUNTS AND [...] Normal 80 and above >32 mL/min Normal Tbili 0.37 mg/dL 0.0-1.2 [facility] NORMAL RANGES Age WBC RBC HGB HCT [...] HCT IS 5% LESS SOURCE FOR DATA: Isonas 1800 OPERATION MANUAL( AUTOMATED BLOOD COUNTS AND [...] Normal 80 and above >32 mL/min Normal Anion Gap 16 mmol/L [facility] NORMAL RANGES Age WBC RBC HGB HCT [...] HCT IS 5% LESS SOURCE FOR DATA: Isonas 1800 OPERATION MANUAL( AUTOMATED BLOOD COUNTS AND [...] Normal 80 and above >32 mL/min Normal eGFR 85 # [facility] ( [facility] CKD-EPI eGFR Non-Afr. Hungarian 73 # [facility] ([facility] CKD-EPI ID Date Data Source [id number] 03/17/2020 02:56:00 PM EDT [facility] ([facility] Name Value Range Interpretation Code Description Data Vicky rce(s) Supporting Document(s) WBC 11.5 10E3/uL 4.1-10.9 Above high normal KAYLEE T ([facility] NORMAL RANGES Age WBC RBC HGB HCT [...] Normal 80 and above >32 mL/min Normal RBC 4.76 10E6/uL 4.20-6.30 [facility] NORMAL RANGES Age WBC RBC HGB HCT [...] HCT IS 5% LESS SOURCE FOR DATA: Isonas 1800 OPERATION MANUAL( AUTOMATED BLOOD COUNTS AND [...] Normal 80 and above >32 mL/min Normal HGB 13.1 g/dL 12.0-18.0 [facility] ([facility] NORMAL RANGES Age WBC RBC HGB HCT [...] HCT IS 5% LESS SOURCE FOR DATA: Isonas 1800 OPERATION MANUAL( AUTOMATED BLOOD COUNTS AND [...] Normal 80 and above >32 mL/min Normal HCT 41.3 % 37.0-51.0 [facility] ([facility] NORMAL RANGES Age WBC RBC HGB HCT [...] HCT IS 5% LESS SOURCE FOR DATA: Isonas 1800 OPERATION MANUAL( AUTOMATED BLOOD COUNTS AND [...] Normal 80 and above >32 mL/min Normal MCH 27.5 pg 26.0-32.0 MEDREI ([facility] NORMAL RANGES Age WBC RBC HGB HCT [...] HCT IS 5% LESS SOURCE FOR DATA: Isonas 1800 OPERATION MANUAL( AUTOMATED BLOOD COUNTS AND [...] Normal 80 and above >32 mL/min Normal MCV 86.8 fL 80.0-97.0 [facility] ([facility] NORMAL RANGES Age WBC RBC HGB HCT [...] HCT IS 5% LESS SOURCE FOR DATA: Isonas 1800 OPERATION MANUAL( AUTOMATED BLOOD COUNTS AND [...] Normal 80 and above >32 mL/min Normal MCHC 31.7 g/dL 31.0-36.0 [facility] NORMAL RANGES Age WBC RBC HGB HCT [...] HCT IS 5% LESS SOURCE FOR DATA: Isonas 1800 OPERATION MANUAL( AUTOMATED BLOOD COUNTS AND [...] Normal 80 and above >32 mL/min Normal PLT 218 10E3/uL 140-440 [facility] ([facility] NORMAL RANGES Age WBC RBC HGB HCT [...] HCT IS 5% LESS SOURCE FOR DATA: Isonas 1800 OPERATION MANUAL( AUTOMATED BLOOD COUNTS AND [...] Normal 80 and above >32 mL/min Normal Lym% 11.0 % 10.0-58.5 [facility] ([facility] NORMAL RANGES Age WBC RBC HGB HCT [...] HCT IS 5% LESS SOURCE FOR DATA: Isonas 1800 OPERATION MANUAL( AUTOMATED BLOOD COUNTS AND [...] Normal 80 and above >32 mL/min Normal RDW-CV 14.0 % 11.5-14.5 [facility] NORMAL RANGES Age WBC RBC HGB HCT [...] Normal 80 and above >32 mL/min Normal Neut% 76.5 % 37.0-92.0 [facility] NORMAL RANGES Age WBC RBC HGB HCT [...] HCT IS 5% LESS SOURCE FOR DATA: Isonas 1800 OPERATION MANUAL( AUTOMATED BLOOD COUNTS AND [...] Normal 80 and above >32 mL/min Normal MXD% 12.5 % 0.1-24.0 [facility] ([facility] NORMAL RANGES Age WBC RBC HGB HCT [...] HCT IS 5% LESS SOURCE FOR DATA: Isonas 1800 OPERATION MANUAL( AUTOMATED BLOOD COUNTS AND [...] Normal 80 and above >32 mL/min Normal Neut# 8.8 % 2.0-7.8 Above high normal [facility] ([facility] NORMAL RANGES Age WBC RBC HGB HCT [...] HCT IS 5% LESS SOURCE FOR DATA: Isonas 1800 OPERATION MANUAL( AUTOMATED BLOOD COUNTS AND [...] Normal 80 and above >32 mL/min Normal Lym# 1.3 10E3/uL 0.6-4.1 [facility] ([facility] NORMAL RANGES Age WBC RBC HGB HCT [...] HCT IS 5% LESS SOURCE FOR DATA: Isonas 1800 OPERATION MANUAL( AUTOMATED BLOOD COUNTS AND [...] Normal 80 and above >32 mL/min Normal MXD# 1.4 10E3/uL 0.0-1.8 REG[facility] ([facility] NORMAL RANGES Age WBC RBC HGB HCT [...] HCT IS 5% LESS SOURCE FOR DATA: Isonas 1800 OPERATION MANUAL( AUTOMATED BLOOD COUNTS AND [...] Normal 80 and above >32 mL/min Normal MPV 10.4 fL 9.0-13.0 [facility] NORMAL RANGES Age WBC RBC HGB HCT [...] HCT IS 5% LESS SOURCE FOR DATA: Isonas 1800 OPERATION MANUAL( AUTOMATED BLOOD COUNTS AND [...] Normal 80 and above >32 mL/min Normal ID Date Data Source [id number] 03/17/2020 02:56:00 PM EDT [facility] ([facility] Name Value Range Interpretation Code Description Data Vicky rce(s) Supporting Document(s) Prothrombin Time-Therapy 25.4 MEDEN T ([facility] Recheck Laboratory test result MEDENT ([facility] INR in Platelet poor plasma by Coagulation assay 2.1 [facility] ([facility] Dosage Laboratory test result [facility] ([facility] ID Date Data Source [id number] 03/10/2020 10:11:00 AM EDT [facility] ([facility] Name Value Range Interpretation Code Description Data Vicky rce(s) Supporting Document(s) INR in Platelet poor plasma by Coagulation assay 2.7 [facility] ([facility] Prothrombin Time-Therapy 32.0 MEDEN T ([facility] Dosage Laboratory test result [facility] ([facility] Recheck Laboratory test result [facility] ([facility] ID Date Data Source [id number] 03/03/2020 09:51:00 AM EDT MED[facility] ([facility] Name Value Range Interpretation Code Description Data Vicky rce(s) Supporting Document(s) Prothrombin Time-Therapy 42.3 MEDEN T ([facility] INR in Platelet poor plasma by Coagulation assay 3.5 [facility] ([facility] Recheck Laboratory test result [facility] ([facility] Dosage Laboratory test result [facility] ([facility] Comment 1 Laboratory test result ME DENT ([facility] ID Date Data Source [id number] 02/29/2020 10:02:00 AM EDT [facility] ([facility] Name Value Range Interpretation Code Description Data Vicky rce(s) Supporting Document(s) INR in Platelet poor plasma by Coagulation assay 1.1 [facility] ([facility] Prothrombin Time-Therapy 13.1 MEDEN T ([facility] Dosage Laboratory test result REG[facility] ([facility] Comment 1 Laboratory test result ME ARGENIS ([facility] Recheck Laboratory test result [facility] ([facility] ID Date Data Source [id number] 02/18/2020 08:28:00 AM EDT [facility] ([facility] Name Value Range Interpretation Code Description Data Vicky rce(s) Supporting Document(s) CPK Creatine Phosphokinase 45 U/L 26-192 Angela l (applies to non-numeric results) [facility] ([facility] ) CK-MB Value Mass 1.6 ng/mL Normal (applies to non-numeric results) [facility] ([facility] MB/CK Relative Index 3.56 Normal (applies to non-num epifanio results) [facility] ([facility] <content>DIAGNOSIS CRITERIA</content>
<content>MMB ng/ml Relative Index (RI)</content>
<content>NON-AMI < or = 5 N/A</content>
<content>AQUINO ZONE > 5 < or = 4</content>
<content>AMI > 5 > 4</content>
<content></content> Troponin I 0.22 ng/mL REGINE ([facility] <content>Troponin I Reference Interval f or Siemens [place] LOCI:</content>
<content></content>
<content>99th Percentile= 0.00-0.045 ng/ml</content>
<content></content>
<content>Risk Stratification:</content>
<content><= 0.10 ng/ml Decreased Risk for Adverse Clinical</content>
<content>Events.</content>
<content>0.10-1.50 ng/ml Increased Risk for Adverse Clinical</content>
<content>Events. Evaluation of additional</content>
<content>criterion and/or repeat testing in 2-6</content>
<content>hours is suggested to rule out myocardial</content>
<content>damage.</content>
<content>>= 1.50 ng/ml Indicative of Myocardial Injury.</content>
<content></content> ID Date Data Source [id number] 02/18/2020 08:28:00 AM EDT [facility] ([facility] Name Value Range Interpretation Code Description Data Vicky rce(s) Supporting Document(s) Inr 1.03 Normal (applies to non-numeric resul ts) [facility] ([facility] THERAPUTIC HUMAN INR VALUES INDICATIONS NORMAL RANGES PROPHYLAXIS/TREATMENT OF: VENOUS THROMBOSIS 2.0-3.0 PULMONARY EMBOLISM 2.0-3.0 PREVENTION OF SYSTEMIC EMBOLISM FROM: TISSUE HEART VALVES 2.0-3.0 ACUTE MYOCARDIAL INFARCTION 2.0-3.0 VALVULAR HEART DISEASE 2.0-3.0 ATRIAL FIBRILLATION 2.0-3.0 MECHANICAL VALVES(HIGH RISK) 2.5-3.5 RECURRENT MYOCARDIAL INFARCTION 2.5-3.5 Prothrombin Time 13.8 s 12.5-14.3 Normal (applies to non-numeric results) [facility] Partial Thromboplastin Time 24.1 s 24.2-38.5 Below low normal [facility] ([facility] ID Date Data Source [id number] 02/18/2020 05:17:00 AM EDT [facility] ([facility] Name Value Range Interpretation Code Description Data Vicky rce(s) Supporting Document(s) Laboratory test finding (navigational concept) 167 mg/dL 7 0-105 Above high normal [facility] ([facility] ) Laboratory test finding (navigational concept) 41.0 % 3 8.0-51.0 Normal (applies to non-numeric results) [facility] ([facility] Laboratory test finding (navigational concept) 140 meq/L 1 36-145 Normal (applies to non-numeric results) [facility] ([facility] Laboratory test finding (navigational concept) 101 meq/L 9 8-109 Normal (applies to non-numeric results) [facility] ([facility] Laboratory test finding (navigational concept) 2.8 meq/L 3 .5-5.1 Below lower panic limits [facility] ([facility] ) Laboratory test finding (navigational concept) 4.7 mg/dL 4 .5-5.3 Normal (applies to non-numeric results) [facility] ([facility] Laboratory test finding (navigational concept) 1.0 mg/dL 0 .6-1.3 Normal (applies to non-numeric results) [facility] ([facility] Laboratory test finding (navigational concept) 28.0 MM/L 2 3.0-27.0 Above high normal [facility] ([facility] ) Laboratory test finding (navigational concept) 17 mg/dL 8 -26 Normal (applies to non-numeric results) [facility] ([facility]) ID Date Data Source [id number] 02/18/2020 05:13:00 AM EDT [facility] ([facility] Name Value Range Interpretation Code Description Data Vicky rce(s) Supporting Document(s) Lipoprotein lipase [Enzymatic activity/volume] in Serum or P lasma 139 U/L 73-393 Normal (applies to non-numeric results) [facility] ([facility] <content>note:<nlbl:demographic_changed> </content>
<content></content> ID Date Data Source [id number] 02/18/2020 05:13:00 AM EDT [facility] ([facility] Name Value Range Interpretation Code Description Data Vicky rce(s) Supporting Document(s) Ast/Sgot 14 U/L 7-37 Normal (applies to non-numeric resul ts) [facility] ([facility] Bilirubin,Total 0.4 mg/dL 0.2-1.0 Normal (applies to non-numeric results) [facility] ([facility] Alt/SGPT 14 U/L 12-78 Normal (applies to non-numeric resul ts) [facility] ([facility] Alkaline Phosphatase 150 U/L 45-117 Above high normal [facility] ([facility] Albumin 3.1 GM/DL 3.2-5.2 Below low normal [facility] ( [facility] Bilirubin,Direct 0.1 mg/dL 0.0-0.2 Normal (applies to non-numeric results) [facility] ([facility] Total Protein 7.1 GM/DL 6.4-8.2 Normal (applies to non-numeric re sults) [facility] ([facility] Albumin/Globulin Ratio 0.8 1.2-2.2 Below low normal [facility] ([facility] ID Date Data Source [id number] 02/18/2020 05:13:00 AM EDT [facility] ([facility] Name Value Range Interpretation Code Description Data Vicky rce(s) Supporting Document(s) CK-MB Value Mass Laboratory test result Normal ( applies to non-numeric results) [facility] ([facility] ) CPK Creatine Phosphokinase 41 U/L 26-192 Angela l (applies to non-numeric results) [facility] ([facility] ) MB/CK Relative Index 2.44 Normal (applies to non-num epifanio results) [facility] ([facility] <content>DIAGNOSIS CRITERIA</content>
<content>MMB ng/ml Relative Index (RI)</content>
<content>NON-AMI < or = 5 N/A</content>
<content>AQUINO ZONE > 5 < or = 4</content>
<content>AMI > 5 > 4</content>
<content></content> Troponin I 0.08 ng/mL Normal (applies to non-numeric resul ts) [facility] ([facility] <content>Troponin I Reference Interval f or Siemens [place] LOCI:</content>
<content></content>
<content>99th Percentile= 0.00-0.045 ng/ml</content>
<content></content>
<content>Risk Stratification:</content>
<content><= 0.10 ng/ml Decreased Risk for Adverse Clinical</content>
<content>Events.</content>
<content>0.10-1.50 ng/ml Increased Risk for Adverse Clinical</content>
<content>Events. Evaluation of additional</content>
<content>criterion and/or repeat testing in 2-6</content>
<content>hours is suggested to rule out myocardial</content>
<content>damage.</content>
<content>>= 1.50 ng/ml Indicative of Myocardial Injury.</content>
<content></content> ID Date Data Source [id number] 02/18/2020 05:13:00 AM EDT [facility] ([facility] Name Value Range Interpretation Code Description Data Vicky rce(s) Supporting Document(s) Lactate [Mass/volume] in Serum or Plasma 2.4 mmol/L 0.4-2.0 Above upper panic limits [facility] ([facility] ) <content>note:<nlbl:demographic_changed> </content>
<content>Y/N query for Sepsis Lactate Rule: Y</content>
<content></content> ID Date Data Source [id number] 02/18/2020 05:13:00 AM EDT [facility] ([facility] Name Value Range Interpretation Code Description Data Vicky rce(s) Supporting Document(s) Hemoglobin 13.1 g/dL 12.0-15.5 Normal (applies to non-numeric resul ts) [facility] ([facility] White Blood Count 15.3 10 4.0-10.0 Above high normal [facility] ([facility] Red Blood Count 4.67 10 4.00-5.40 Normal (applies to non-numeric results) [facility] ([facility] Hematocrit 41.8 % 36.0-47.0 Normal (applies to non-numeric resul ts) [facility] ([facility] Mean Corpuscular Volume 89.5 fl 80.0-96.0 Normal ( applies to non-numeric results) [facility] ([facility] ) Mean Corpuscular Hemoglobin 28.1 pg 27.0-33.0 Norm al (applies to non-numeric results) [facility] ([facility] ) Mean Corpuscular HGB Conc 31.3 g/dL 32.0-36.5 Below low normal [facility] ([facility] Platelet Count, Automated 204 10 150-450 Normal (applies to non-numeric results) [facility] ([facility] ) Red Cell Distribution Width 13.0 % 11.5-14.5 Norm al (applies to non-numeric results) [facility] ([facility] ) Lymph % 5.4 % 24.0-44.0 Below low normal MED[facility] ( [facility] Neutrophils % 82.7 % 36.0-66.0 Above high normal MEDE NT ([facility] Ferry % 8.6 % 0.0-5.0 Above high normal [facility] ([facility] Eos % 2.1 % 0.0-3.0 Normal (applies to non-numeric resul ts) [facility] ([facility] Immature Granulocyte % 0.6 % 0-3.0 Normal (applies to non-n umeric results) [facility] ([facility] Baso % 0.6 % 0.0-1.0 Normal (applies to non-numeric resul ts) [facility] ([facility] Neutrophils # 12.6 10 1.5-8.5 Above high normal MEDE NT ([facility] Lymph # 0.8 10 1.5-5.0 Below low normal [facility] ( [facility] Nucleated Red Blood Cell % 0.0 % 0-0 Normal (applies to n on-numeric results) [facility] ([facility] Baso # 0.1 10 0.0-0.2 Normal (applies to non-numeric resul ts) [facility] ([facility] [place]erry # 1.3 10 0.0-0.8 Above high normal [facility] ([facility] Eos # 0.3 10 0.0-0.5 Normal (applies to non-numeric resul ts) [facility] ([facility] ID Date Data Source [id number] 02/12/2020 01:26:00 PM EDT [facility] ([facility]) Name Value Range Interpretation Code Description Data Vicky rce(s) Supporting Document(s) Thyrotropin [Units/volume] in Serum or Plasma by Detec tion limit <= 0.05 mIU/L Laboratory test result 0.358-3.740 [facility] ([facility]) <content>note:<nlbl:demographic_changed> </content>
<content></content> Thyroxine (T4) free [Mass/volume] in Serum or Plasma 1.96 ng/dL 0.76- 1.46 [facility] ([facility]) <content>note:<nlbl:demographic_changed> </content>
<content></content> ID Date Data Source [id number] 01/30/2020 01:46:00 PM EDT MED[facility] ([facility] Name Value Range Interpretation Code Description Data Vicky rce(s) Supporting Document(s) Thyrotropin [Units/volume] in Serum or Plasma Laboratory test re sult 0.60-4.8 Below low normal [facility] ([facility] ) Below the Measuring Range Thyroxine (T4) free [Mass/volume] in Serum or Plasma 2.04 ng/dL 0.75-1.54 Above high normal [facility] ([facility] ) ID Date Data Source [id number] 01/30/2020 01:46:00 PM EDT [facility] ([facility] Name Value Range Interpretation Code Description Data Vicky rce(s) Supporting Document(s) RBC 4.36 10E6/uL 4.20-6.30 [facility] ([facility] NORMAL RANGES Age WBC RBC HGB HCT [...] HCT IS 5% LESS SOURCE FOR DATA: Isonas 1800 OPERATION MANUAL( AUTOMATED BLOOD COUNTS AND [...] Normal 80 and above >32 mL/min Normal WBC 9.2 10E3/uL 4.1-10.9 [facility] ([facility] NORMAL RANGES Age WBC RBC HGB HCT [...] HCT IS 5% LESS SOURCE FOR DATA: Isonas 1800 OPERATION MANUAL( AUTOMATED BLOOD COUNTS AND [...] Normal 80 and above >32 mL/min Normal HGB 12.8 g/dL 12.0-18.0 [facility] NORMAL RANGES Age WBC RBC HGB HCT [...] HCT IS 5% LESS SOURCE FOR DATA: Isonas 1800 OPERATION MANUAL( AUTOMATED BLOOD COUNTS AND [...] Normal 80 and above >32 mL/min Normal HCT 39.4 % 37.0-51.0 [facility] NORMAL RANGES Age WBC RBC HGB HCT [...] HCT IS 5% LESS SOURCE FOR DATA: Isonas 1800 OPERATION MANUAL( AUTOMATED BLOOD COUNTS AND [...] Normal 80 and above >32 mL/min Normal MCV 90.4 fL 80.0-97.0 [facility] ([facility] NORMAL RANGES Age WBC RBC HGB HCT MCV PLT Adult M 4.1-10.9 4.20-6.30 12.0-18.0 37.0-51.0 80- 140-440 Adult F 4.1-10.9 4.04-5.48 12.0-18.0 37.0-51.0 [...] Normal 80 and above >32 mL/min Normal MCH 29.4 pg 26.0-32.0 [facility] NORMAL RANGES Age WBC RBC HGB HCT [...] HCT IS 5% LESS SOURCE FOR DATA: Isonas 1800 OPERATION MANUAL( AUTOMATED BLOOD COUNTS AND [...] Normal 80 and above >32 mL/min Normal MCHC 32.5 g/dL 31.0-36.0 [facility] NORMAL RANGES Age WBC RBC HGB HCT [...] HCT IS 5% LESS SOURCE FOR DATA: Isonas 1800 OPERATION MANUAL( AUTOMATED BLOOD COUNTS AND [...] Normal 80 and above >32 mL/min Normal PLT 251 10E3/uL 140-440 [facility] NORMAL RANGES Age WBC RBC HGB HCT [...] HCT IS 5% LESS SOURCE FOR DATA: Isonas 1800 OPERATION MANUAL( AUTOMATED BLOOD COUNTS AND [...] Normal 80 and above >32 mL/min Normal RDW-CV 13.6 % 11.5-14.5 [facility] ([facility] NORMAL RANGES Age WBC RBC HGB HCT [...] HCT IS 5% LESS SOURCE FOR DATA: Isonas 1800 OPERATION MANUAL( AUTOMATED BLOOD COUNTS AND [...] Normal 80 and above >32 mL/min Normal Lym% 16.4 % 10.0-58.5 [facility] ([facility] NORMAL RANGES Age WBC RBC HGB HCT [...] HCT IS 5% LESS SOURCE FOR DATA: Isonas 1800 OPERATION MANUAL( AUTOMATED BLOOD COUNTS AND [...] Normal 80 and above >32 mL/min Normal Neut% 69.5 % 37.0-92.0 [facility] ([facility] NORMAL RANGES Age WBC RBC HGB HCT [...] HCT IS 5% LESS SOURCE FOR DATA: Isonas 1800 OPERATION MANUAL( AUTOMATED BLOOD COUNTS AND [...] Normal 80 and above >32 mL/min Normal MXD% 14.1 % 0.1-24.0 [facility] ([facility] NORMAL RANGES Age WBC RBC HGB HCT [...] HCT IS 5% LESS SOURCE FOR DATA: Isonas 1800 OPERATION MANUAL( AUTOMATED BLOOD COUNTS AND [...] Normal 80 and above >32 mL/min Normal Lym# 1.5 10E3/uL 0.6-4.1 [facility] NORMAL RANGES Age WBC RBC HGB HCT [...] HCT IS 5% LESS SOURCE FOR DATA: Isonas 1800 OPERATION MANUAL( AUTOMATED BLOOD COUNTS AND [...] Normal 80 and above >32 mL/min Normal Neut# 6.4 % 2.0-7.8 [facility] NORMAL RANGES Age WBC RBC HGB HCT [...] Normal 80 and above >32 mL/min Normal MXD# 1.3 10E3/uL 0.0-1.8 [facility] ([facility] NORMAL RANGES Age WBC RBC HGB HCT [...] HCT IS 5% LESS SOURCE FOR DATA: [employer] DYN 1800 OPERATION MANUAL( AUTOMATED BLOOD COUNTS [...] Normal 80 and above >32 mL/min Normal MPV 10.0 fL 9.0-13.0 [facility] ([facility] NORMAL RANGES Age WBC RBC HGB HCT [...] HCT IS 5% LESS SOURCE FOR DATA: [employer]sonas 1800 OPERATION MANUAL( AUTOMATED BLOOD COUNTS AND [...] Normal 80 and above >32 mL/min Normal ID Date Data Source [id number] 01/30/2020 01:46:00 PM JORDAN WEINER ([facility] Name Value Range Interpretation Code Description Data Vicky rce(s) Supporting Document(s) Glu 101 mg/dL 70-110 [facility] NORMAL RANGES Age WBC RBC HGB HCT [...] HCT IS 5% LESS SOURCE FOR DATA: Isonas 1800 OPERATION MANUAL( AUTOMATED BLOOD COUNTS AND [...] Normal 80 and above >32 mL/min Normal BUN 11 mg/dL 8-23 [facility] NORMAL RANGES Age WBC RBC HGB HCT [...] HCT IS 5% LESS SOURCE FOR DATA: Isonas 1800 OPERATION MANUAL( AUTOMATED BLOOD COUNTS AND [...] Normal 80 and above >32 mL/min Normal BUN/Creatinine Ratio 14.0 CALC MEDENT ([facility] NORMAL RANGES Age WBC RBC HGB HCT [...] HCT IS 5% LESS SOURCE FOR DATA: Isonas 1800 OPERATION MANUAL( AUTOMATED BLOOD COUNTS AND [...] Normal 80 and above >32 mL/min Normal Creat 0.8 mg/dL 0.5-1.0 [facility] ([facility] NORMAL RANGES Age WBC RBC HGB HCT [...] HCT IS 5% LESS SOURCE FOR DATA: [employer]sonas 1800 OPERATION MANUAL( AUTOMATED BLOOD COUNTS AND [...] Normal 80 and above >32 mL/min Normal Na 140 mmol/L 136-145 [facility] NORMAL RANGES Age WBC RBC HGB HCT [...] HCT IS 5% LESS SOURCE FOR DATA: Isonas 1800 OPERATION MANUAL( AUTOMATED BLOOD COUNTS AND [...] Normal 80 and above >32 mL/min Normal K 3.6 mmol/L 3.5-5.1 [facility] NORMAL RANGES Age WBC RBC HGB HCT [...] HCT IS 5% LESS SOURCE FOR DATA: Isonas 1800 OPERATION MANUAL( AUTOMATED BLOOD COUNTS AND [...] Normal 80 and above >32 mL/min Normal CL 101.0 mmol/L 98.0-107.0 [facility] NORMAL RANGES Age WBC RBC HGB HCT [...] Normal 80 and above >32 mL/min Normal Co2 28.7 mmol/L 22.0-29.0 SIMI ([facility] NORMAL RANGES Age WBC RBC HGB HCT [...] HCT IS 5% LESS SOURCE FOR DATA: Isonas 1800 OPERATION MANUAL( AUTOMATED BLOOD COUNTS AND [...] Normal 80 and above >32 mL/min Normal CA 10.2 mg/dL 8.6-10.2 [facility] NORMAL RANGES Age WBC RBC HGB HCT [...] HCT IS 5% LESS SOURCE FOR DATA: Isonas 1800 OPERATION MANUAL( AUTOMATED BLOOD COUNTS AND [...] Normal 80 and above >32 mL/min Normal Alb 3.9 g/dL 3.4-4.8 [facility] NORMAL RANGES Age WBC RBC HGB HCT [...] HCT IS 5% LESS SOURCE FOR DATA: Isonas 1800 OPERATION MANUAL( AUTOMATED BLOOD COUNTS AND [...] Normal 80 and above >32 mL/min Normal TP 6.7 g/dL 6.6-8.7 [facility] NORMAL RANGES Age WBC RBC HGB HCT [...] HCT IS 5% LESS SOURCE FOR DATA: Isonas 1800 OPERATION MANUAL( AUTOMATED BLOOD COUNTS AND [...] Normal 80 and above >32 mL/min Normal A/G Ratio 1.4 CALC [facility] ([facility] NORMAL RANGES Age WBC RBC HGB HCT [...] HCT IS 5% LESS SOURCE FOR DATA: Isonas 1800 OPERATION MANUAL( AUTOMATED BLOOD COUNTS AND [...] Normal 80 and above >32 mL/min Normal Globulin 2.8 CALC [facility] ([facility] NORMAL RANGES Age WBC RBC HGB HCT [...] HCT IS 5% LESS SOURCE FOR DATA: Isonas 1800 OPERATION MANUAL( AUTOMATED BLOOD COUNTS AND [...] Normal 80 and above >32 mL/min Normal Alp 179.6 U/L 35-129 Above high normal [facility] ([facility] NORMAL RANGES Age WBC RBC HGB HCT [...] HCT IS 5% LESS SOURCE FOR DATA: Isonas 1800 OPERATION MANUAL( AUTOMATED BLOOD COUNTS AND [...] Normal 80 and above >32 mL/min Normal Alt (SGPT) 13 U/L 0-41 [facility] ([facility] NORMAL RANGES Age WBC RBC HGB HCT [...] HCT IS 5% LESS SOURCE FOR DATA: Isonas 1800 OPERATION MANUAL( AUTOMATED BLOOD COUNTS AND [...] Normal 80 and above >32 mL/min Normal Ast (Sgot) 16 U/L 0-40 [facility] ([facility] NORMAL RANGES Age WBC RBC HGB HCT [...] Normal 80 and above >32 mL/min Normal Tbili 0.58 mg/dL 0.0-1.2 SIMI ([facility] NORMAL RANGES Age WBC RBC HGB HCT [...] HCT IS 5% LESS SOURCE FOR DATA: Isonas 1800 OPERATION MANUAL( AUTOMATED BLOOD COUNTS AND [...] Normal 80 and above >32 mL/min Normal Osmolality-Calculated 278.2 CALC MED ENT ([facility] NORMAL RANGES Age WBC RBC HGB HCT [...] HCT IS 5% LESS SOURCE FOR DATA: Isonas 1800 OPERATION MANUAL( AUTOMATED BLOOD COUNTS AND [...] Normal 80 and above >32 mL/min Normal Anion Gap 13 mmol/L [facility] NORMAL RANGES Age WBC RBC HGB HCT [...] HCT IS 5% LESS SOURCE FOR DATA: Isonas 1800 OPERATION MANUAL( AUTOMATED BLOOD COUNTS AND [...] Normal 80 and above >32 mL/min Normal eGFR 85 # [facility] ( [facility] CKD-EPI eGFR Non-Afr. Hungarian 73 # [facility] ([facility] CKD-EPI ID Date Data Source [id number] 12/18/2019 01:18:00 PM EDT MED[facility] ([facility]) Name Value Range Interpretation Code Description Data Vicky rce(s) Supporting Document(s) Free T4 0.74 ng/dL 0.76-1.46 [facility] ([facility]) Thyroid Stimulating Hormone 6.970 uIU/ML 0.358-3.740 [facility] ([facility]) ID Date Data Source [id number] 11/16/2019 12:11:00 PM EDT MED[facility] ([facility]) Name Value Range Interpretation Code Description Data Vicky rce(s) Supporting Document(s) Thyroid Stimulating Hormone 0.055 uIU/ML 0.358-3.740 [facility] ([facility]) Free T4 1.01 ng/dL 0.76-1.46 [facility] ([facility]) ID Date Data Source [id number] 2019 01:39:00 PM EDT [facility] Name Value Range Interpretation Code Description Data Vicky rce(s) Supporting Document(s) Bacteria identified in Urine by Culture Laboratory test result [facility] ([facility] SRC:URINE Urine Culture, Routine Laboratory test result [facility] ([facility] SRC:URINE ID Date Data Source [id number] 2019 01:38:00 PM EDT [facility] ([facility] Name Value Range Interpretation Code Description Data Vicky rce(s) Supporting Document(s) Color Urine Laboratory test result M EDENT ([facility] Appearance of Urine Laboratory test result [facility] ([facility] Specific [place] 1.015 1.00-1.03 [facility] ([facility] Bilirubin.total [Presence] in Urine by Test strip Laboratory test res ult [facility] ([facility] Glucose Urine Laboratory test result [facility] ([facility] PH Urine 5.5 5.0-8.0 [facility] Ketones Laboratory test result [facility] ([facility] Blood Urine Laboratory test result M EDENT ([facility] Protein Urine Laboratory test result [facility] ([facility] Urobilinogen 0.2 EU/dl 0.2-1.0 [facility] ([facility] Nitrite Laboratory test result [facility] ([facility] Leukocytes Laboratory test result Above high normal [facility] ([facility] ID Date Data Source [id number] 2019 01:20:00 PM EDT [facility] ([facility] Name Value Range Interpretation Code Description Data Vicky rce(s) Supporting Document(s) WBC 7.3 10E3/uL 4.1-10.9 REGINE ([facility] NORMAL RANGES Age WBC RBC HGB HCT [...] HCT IS 5% LESS SOURCE FOR DATA: Ison[employer] 1800 OPERATION MANUAL( AUTOMATED BLOOD COUNTS AND [...] Normal 80 and above >32 mL/min Normal RBC 4.39 10E6/uL 4.20-6.30 [facility] NORMAL RANGES Age WBC RBC HGB HCT [...] HCT IS 5% LESS SOURCE FOR DATA: Isonas 1800 OPERATION MANUAL( AUTOMATED BLOOD COUNTS AND [...] Normal 80 and above >32 mL/min Normal HGB 12.8 g/dL 12.0-18.0 [facility] NORMAL RANGES Age WBC RBC HGB HCT [...] Normal 80 and above >32 mL/min Normal HCT 40.0 % 37.0-51.0 [facility] ([facility] NORMAL RANGES Age WBC RBC HGB HCT [...] HCT IS 5% LESS SOURCE FOR DATA: Isonas 1800 OPERATION MANUAL( AUTOMATED BLOOD COUNTS AND [...] Normal 80 and above >32 mL/min Normal MCV 91.1 fL 80.0-97.0 [facility] ([facility] NORMAL RANGES Age WBC RBC HGB HCT [...] HCT IS 5% LESS SOURCE FOR DATA: Isonas 1800 OPERATION MANUAL( AUTOMATED BLOOD COUNTS AND [...] Normal 80 and above >32 mL/min Normal MCHC 32.0 g/dL 31.0-36.0 [facility] ([facility] NORMAL RANGES Age WBC RBC HGB HCT [...] HCT IS 5% LESS SOURCE FOR DATA: Isonas 1800 OPERATION MANUAL( AUTOMATED BLOOD COUNTS AND [...] Normal 80 and above >32 mL/min Normal MCH 29.2 pg 26.0-32.0 [facility] ([facility] NORMAL RANGES Age WBC RBC HGB HCT [...] HCT IS 5% LESS SOURCE FOR DATA: Isonas 1800 OPERATION MANUAL( AUTOMATED BLOOD COUNTS AND [...] Normal 80 and above >32 mL/min Normal PLT 265 10E3/uL 140-440 [facility] ([facility] NORMAL RANGES Age WBC RBC HGB HCT [...] HCT IS 5% LESS SOURCE FOR DATA: [employer]son[employer] 1800 OPERATION MANUAL( AUTOMATED BLOOD COUNTS AND [...] Normal 80 and above >32 mL/min Normal RDW-CV 14.5 % 11.5-14.5 [facility] ([facility] NORMAL RANGES Age WBC RBC HGB HCT [...] HCT IS 5% LESS SOURCE FOR DATA: Ison[employer] 1800 OPERATION MANUAL( AUTOMATED BLOOD COUNTS AND [...] Normal 80 and above >32 mL/min Normal Lym% 16.0 % 10.0-58.5 [facility] ([facility] NORMAL RANGES Age WBC RBC HGB HCT [...] HCT IS 5% LESS SOURCE FOR DATA: Isonas 1800 OPERATION MANUAL( AUTOMATED BLOOD COUNTS AND [...] Normal 80 and above >32 mL/min Normal MXD% 11.2 % 0.1-24.0 [facility] NORMAL RANGES Age WBC RBC HGB HCT [...] HCT IS 5% LESS SOURCE FOR DATA: [employer] 1800 OPERATION MANUAL( AUTOMATED BLOOD COUNTS AND [...] Normal 80 and above >32 mL/min Normal Neut% 72.8 % 37.0-92.0 [facility] NORMAL RANGES Age WBC RBC HGB HCT [...] HCT IS 5% LESS SOURCE FOR DATA: [employer] 1800 OPERATION MANUAL( AUTOMATED BLOOD COUNTS AND [...] Normal 80 and above >32 mL/min Normal Neut# 5.3 % 2.0-7.8 [facility] ([facility] NORMAL RANGES Age WBC RBC HGB HCT [...] HCT IS 5% LESS SOURCE FOR DATA: [employer] DYN 1800 OPERATION MANUAL( AUTOMATED BLOOD COUNTS [...] Normal 80 and above >32 mL/min Normal MXD# 0.8 10E3/uL 0.0-1.8 [facility] NORMAL RANGES Age WBC RBC HGB HCT [...] HCT IS 5% LESS SOURCE FOR DATA: [employer]son[employer] 1800 OPERATION MANUAL( AUTOMATED BLOOD COUNTS AND [...] Normal 80 and above >32 mL/min Normal Lym# 1.2 10E3/uL 0.6-4.1 [facility] NORMAL RANGES Age WBC RBC HGB HCT [...] HCT IS 5% LESS SOURCE FOR DATA: [employer] 1800 OPERATION MANUAL( AUTOMATED BLOOD COUNTS AND [...] Normal 80 and above >32 mL/min Normal MPV 10.7 fL 9.0-13.0 [facility] NORMAL RANGES Age WBC RBC HGB HCT [...] HCT IS 5% LESS SOURCE FOR DATA: [employer] 1800 OPERATION MANUAL( AUTOMATED BLOOD COUNTS AND [...] Normal 80 and above >32 mL/min Normal ID Date Data Source [id number] 2019 01:20:00 PM EDT MED[facility] ([facility] Name Value Range Interpretation Code Description Data Vicky rce(s) Supporting Document(s) Glu 108 mg/dL 70-110 [facility] ([facility] NORMAL RANGES Age WBC RBC HGB HCT [...] HCT IS 5% LESS SOURCE FOR DATA: [employer] 1800 OPERATION MANUAL( AUTOMATED BLOOD COUNTS AND [...] Normal 80 and above >32 mL/min Normal Creat 0.8 mg/dL 0.5-1.0 [facility] ([facility] NORMAL RANGES Age WBC RBC HGB HCT [...] HCT IS 5% LESS SOURCE FOR DATA: [employer] 1800 OPERATION MANUAL( AUTOMATED BLOOD COUNTS AND [...] Normal 80 and above >32 mL/min Normal BUN 22 mg/dL 8- [facility] NORMAL RANGES Age WBC RBC HGB HCT [...] HCT IS 5% LESS SOURCE FOR DATA: [employer] 1800 OPERATION MANUAL( AUTOMATED BLOOD COUNTS AND [...] Normal 80 and above >32 mL/min Normal Na 142 mmol/L 136-145 [facility] NORMAL RANGES Age WBC RBC HGB HCT [...] HCT IS 5% LESS SOURCE FOR DATA: [employer] 1800 OPERATION MANUAL( AUTOMATED BLOOD COUNTS AND [...] Normal 80 and above >32 mL/min Normal BUN/Creatinine Ratio 26.3 [facility] NORMAL RANGES Age WBC RBC HGB HCT [...] HCT IS 5% LESS SOURCE FOR DATA: [facility] DYN 1800 OPERATION MANUAL( AUTOMATED BLOOD COUNTS [...] Normal 80 and above >32 mL/min Normal Co2 29.3 mmol/L 22.0-29.0 Above high normal [facility] NORMAL RANGES Age WBC RBC HGB HCT [...] HCT IS 5% LESS SOURCE FOR DATA: [employer] 1800 OPERATION MANUAL( AUTOMATED BLOOD COUNTS AND [...] Normal 80 and above >32 mL/min Normal CL 103.3 mmol/L 98.0-107.0 [facility] ([facility] NORMAL RANGES Age WBC RBC HGB HCT [...] HCT IS 5% LESS SOURCE FOR DATA: [employer] 1800 OPERATION MANUAL( AUTOMATED BLOOD COUNTS AND [...] Normal 80 and above >32 mL/min Normal K 3.9 mmol/L 3.5-5.1 [facility] ([facility] NORMAL RANGES Age WBC RBC HGB HCT [...] HCT IS 5% LESS SOURCE FOR DATA: [employer] 1800 OPERATION MANUAL( AUTOMATED BLOOD COUNTS AND [...] Normal 80 and above >32 mL/min Normal CA 10.0 mg/dL 8.6-10.2 [facility] ([facility] NORMAL RANGES Age WBC RBC HGB HCT [...] HCT IS 5% LESS SOURCE FOR DATA: [employer] 1800 OPERATION MANUAL( AUTOMATED BLOOD COUNTS AND [...] Normal 80 and above >32 mL/min Normal TP 7.0 g/dL 6.6-8.7 [facility] ([facility] NORMAL RANGES Age WBC RBC HGB HCT [...] HCT IS 5% LESS SOURCE FOR DATA: [employer] 1800 OPERATION MANUAL( AUTOMATED BLOOD COUNTS AND [...] Normal 80 and above >32 mL/min Normal A/G Ratio 1.4 CALC [facility] ([facility] NORMAL RANGES Age WBC RBC HGB HCT [...] HCT IS 5% LESS SOURCE FOR DATA: [employer] 1800 OPERATION MANUAL( AUTOMATED BLOOD COUNTS AND [...] Normal 80 and above >32 mL/min Normal Alb 4.1 g/dL 3.4-4.8 [facility] NORMAL RANGES Age WBC RBC HGB HCT [...] HCT IS 5% LESS SOURCE FOR DATA: [employer] 1800 OPERATION MANUAL( AUTOMATED BLOOD COUNTS AND [...] Normal 80 and above >32 mL/min Normal Globulin 2.9 CALC [facility] ([facility] NORMAL RANGES Age WBC RBC HGB HCT [...] HCT IS 5% LESS SOURCE FOR DATA: [employer] 1800 OPERATION MANUAL( AUTOMATED BLOOD COUNTS AND [...] Normal 80 and above >32 mL/min Normal Alt (SGPT) 11 U/L 0-41 [facility] [facility] NORMAL RANGES Age WBC RBC HGB HCT [...] HCT IS 5% LESS SOURCE FOR DATA: Isonas 1800 OPERATION MANUAL( AUTOMATED BLOOD COUNTS AND [...] Normal 80 and above >32 mL/min Normal Alp 177.1 U/L 35-129 Above high normal [facility] ([facility] NORMAL RANGES Age WBC RBC HGB HCT [...] Normal 80 and above >32 mL/min Normal Tbili 0.31 mg/dL 0.0-1.2 [facility] ([facility] NORMAL RANGES Age WBC RBC HGB HCT [...] HCT IS 5% LESS SOURCE FOR DATA: Confovis DYN 1800 OPERATION MANUAL( AUTOMATED BLOOD COUNTS [...] Normal 80 and above >32 mL/min Normal Ast (Sgot) 13 U/L 0-40 [facility] ([facility] NORMAL RANGES Age WBC RBC HGB HCT [...] HCT IS 5% LESS SOURCE FOR DATA: Isonas 1800 OPERATION MANUAL( AUTOMATED BLOOD COUNTS AND [...] Normal 80 and above >32 mL/min Normal Osmolality-Calculated 287.5 [facility] ([facility] NORMAL RANGES Age WBC RBC HGB HCT [...] HCT IS 5% LESS SOURCE FOR DATA: Isonas 1800 OPERATION MANUAL( AUTOMATED BLOOD COUNTS AND [...] Normal 80 and above >32 mL/min Normal eGFR 85 # [facility] ( [facility] NORMAL RANGES Age WBC RBC HGB HCT [...] HCT IS 5% LESS SOURCE FOR DATA: Isonas 1800 OPERATION MANUAL( AUTOMATED BLOOD COUNTS AND [...] Normal 80 and above >32 mL/min Normal Anion Gap 14 mmol/L [facility] ([facility] NORMAL RANGES Age WBC RBC HGB HCT [...] HCT IS 5% LESS SOURCE FOR DATA: Isonas 1800 OPERATION MANUAL( AUTOMATED BLOOD COUNTS AND [...] Normal 80 and above >32 mL/min Normal eGFR Non-Afr. Hungarian 73 # [facility] ([facility] NORMAL RANGES Age WBC RBC HGB HCT [...] HCT IS 5% LESS SOURCE FOR DATA: Isonas 1800 OPERATION MANUAL( AUTOMATED BLOOD COUNTS AND [...] Normal 80 and above >32 mL/min Normal ID Date Data Source [id number] 10/19/2019 10:49:00 AM JORDAN WEINER ([facility] ) Name Value Range Interpretation Code Description Data Vicky rce(s) Supporting Document(s) Free T4 1.31 ng/dL 0.76-1.46 [facility] ([facility]) Thyroid Stimulating Hormone 0.013 uIU/ML 0.358-3.740 [facility] ([facility]) ID Date Data Source [id number] 08/16/2019 06:10:00 AM EDT [facility] ([facility] Name Value Range Interpretation Code Description Data Vicky rce(s) Supporting Document(s) Thyroid Stimulating Hormone 0.006 uIU/ML 0.358-3.740 Below low normal [facility] ([facility] Free T4 1.48 ng/dL 0.76-1.46 Above high normal [facility] ([facility] ID Date Data Source [id number] 08/16/2019 06:10:00 AM EDT [facility] ([facility]) Name Value Range Interpretation Code Description Data Vicky rce(s) Supporting Document(s) Thyroid Stimulating Hormone 0.006 uIU/ML 0.358-3.740 [facility] ([facility]) Free T4 1.48 ng/dL 0.76-1.46 [facility] ([facility]) ID Date Data Source [id number] 07/15/2019 01:29:00 PM EST [facility] ([facility]) Name Value Range Interpretation Code Description Data Vicky rce(s) Supporting Document(s) Thyroid Stimulating Hormone 0.041 uIU/ML 0.358-3.740 [facility] ([facility]) Free T4 0.98 ng/dL 0.76-1.46 [facility] ([facility]) ID Date Data Source [id number] 07/15/2019 01:29:00 PM EST [facility] ([facility] Name Value Range Interpretation Code Description Data Vicky rce(s) Supporting Document(s) Thyroid Stimulating Hormone 0.041 uIU/ML 0.358-3.740 Below low normal [facility] ([facility] Free T4 0.98 ng/dL 0.76-1.46 Normal (applies to non-numeric resul ts) [facility] ([facility] ID Date Data Source [id number] 07/02/2019 05:42:00 AM EST [facility] ([facility] Name Value Range Interpretation Code Description Data Vicky rce(s) Supporting Document(s) Lipoprotein lipase [Enzymatic activity/volume] in Serum or P lasma 184 U/L 73-393 Normal (applies to non-numeric results) [facility] ([facility] ID Date Data Source [id number] 07/02/2019 05:42:00 AM EST [facility] ([facility] Name Value Range Interpretation Code Description Data Vicky rce(s) Supporting Document(s) Glucose, Fasting 163 mg/dL 70-100 Above high normal M [facility]ENT ([facility] Creatinine For GFR 0.98 mg/dL 0.55-1.30 Normal (applies to non -numeric results) [facility] ([facility] Blood Urea Nitrogen 20 mg/dL 7-18 Above high normal [facility] ([facility] Glomerular Filtration Rate 59.4 Normal (applies to n on-numeric results) [facility] ([facility] <content>Units are mL/min/1.73 m2</content>
<content></content>
<content>Chronic Kidney Disease Staging per NKF:</content>
<content></content>
<content>Stage I & II GFR >=60 Normal to Mildly Decreased</content>
<content>Stage III GFR 30-59 Moderately Decreased</content>
<content>Stage IV GFR 15-29 Severely Decreased</content>
<content>Stage V GFR <15 Very Little GFR Left</content>
<content>ESRD GFR <15 on SK[facility] [employer]BER[facility]</content>
<content></content> Sodium Level 142 meq/L 136-145 Normal (applies to non-numeric res ults) [facility] ([facility] Potassium Serum 3.5 meq/L 3.5-5.1 Normal (applies to non-numeric results) [facility] ([facility] Carbon Dioxide Level 33 meq/L 21-32 Above high normal [facility] ([facility] Anion Gap 8 meq/L 8-16 Normal (applies to non-numeric resul ts) [facility] ([facility] Chloride Level 101 meq/L 98-107 Normal (applies to non-numeric r esults) [facility] ([facility] Calcium Level 10.2 mg/dL 8.8-10.2 Normal (applies to non-numeric re sults) [facility] ([facility] ID Date Data Source [id number] 07/02/2019 05:42:00 AM EST [facility] ([facility] Name Value Range Interpretation Code Description Data Vicky rce(s) Supporting Document(s) Ast/Sgot 16 U/L 7-37 Normal (applies to non-numeric resul ts) [facility] ([facility] Alt/SGPT 20 U/L 12-78 Normal (applies to non-numeric resul ts) [facility] ([facility] Alkaline Phosphatase 209 U/L 45-117 Above high normal [facility] ([facility] Bilirubin,Total 0.5 mg/dL 0.2-1.0 Normal (applies to non-numeric results) [facility] ([facility] Bilirubin,Direct 0.1 mg/dL 0.0-0.2 Normal (applies to non-numeric results) [facility] ([facility] Total Protein 7.4 GM/DL 6.4-8.2 Normal (applies to non-numeric re sults) [facility] ([facility] Albumin/Globulin Ratio 0.80 1.00-1.93 Below low normal [facility] ([facility] Albumin 3.3 GM/DL 3.2-5.2 Normal (applies to non-numeric resul ts) [facility] ([facility] ID Date Data Source [id number] 07/02/2019 05:42:00 AM EST [facility] ([facility] Name Value Range Interpretation Code Description Data Vicky rce(s) Supporting Document(s) Red Blood Count 4.83 10 4.00-5.40 Normal (applies to non-numeric results) [facility] ([facility] White Blood Count 10.9 10 4.0-10.0 Above high normal [facility] ([facility] Hemoglobin 13.7 g/dL 12.0-15.5 Normal (applies to non-numeric resul ts) [facility] ([facility] Mean Corpuscular Volume 89.6 fl 80.0-96.0 Normal ( applies to non-numeric results) [facility] ([facility] Hematocrit 43.3 % 36.0-47.0 Normal (applies to non-numeric resul ts) [facility] ([facility] Red Cell Distribution Width 15.3 % 11.5-14.5 Above high normal [facility] ([facility] Mean Corpuscular HGB Conc 31.6 g/dL 32.0-36.5 Below low normal [facility] ([facility] Mean Corpuscular Hemoglobin 28.4 pg 27.0-33.0 Norm al (applies to non-numeric results) [facility] ([facility] Platelet Count, Automated 309 10 150-450 Normal (applies to non-numeric results) [facility] ([facility] Neutrophils % 82.8 % 36.0-66.0 Above high normal [facility] ([facility] Ferry % 7.5 % 0.0-5.0 Above high normal [facility] ([facility] Eos % 1.2 % 0.0-3.0 Normal (applies to non-numeric resul ts) [facility] ([facility] Lymph % 7.5 % 24.0-44.0 Below low normal [facility] ( [facility] Nucleated Red Blood Cell % 0.0 % 0-0 Normal (applies to n on-numeric results) [facility] ([facility] Immature Granulocyte % 0.4 % 0-3.0 Normal (applies to non-n umeric results) [facility] ([facility] Baso % 0.6 % 0.0-1.0 Normal (applies to non-numeric resul ts) [facility] ([facility] Lymph # 0.8 10 1.5-5.0 Below low normal [facility] ( [facility] Ferry # 0.8 10 0.0-0.8 Normal (applies to non-numeric resul ts) [facility] ([facility] Neutrophils # 9.0 10 1.5-8.5 Above high normal [facility] NT ([facility] Eos # 0.1 10 0.0-0.5 Normal (applies to non-numeric resul ts) [facility] ([facility] Baso # 0.1 10 0.0-0.2 Normal (applies to non-numeric resul ts) [facility] ([facility] ID Date Data Source [id number] 06/26/2019 01:32:00 PM EST [facility] ([facility] Name Value Range Interpretation Code Description Data Vicky rce(s) Supporting Document(s) Prostate specific Ag [Mass/volume] in Serum or Plasma 98 mg/dL 45-65 Above high normal [facility] ([facility] ) CLASSIFICATION CHOLESTEROL FO R ADULTS CHILDREN/ADOLESCENTS* DESIRABLE: <200 MG/DL <170 MG/DL BORDER-LINE HIGH RISK: 200-239 MG/DL 170-199 MG/DL HIGH RISK: >240 MG/DL >200 MG/DL CLASS. FOR PRIMARY LDL CHOL PREVENTION: LDL CHOL-CHILD/ADOLESCENTS* DESIRABLE: <130 MG/DL <110 MG/DL BORDERLINE-HIGH RISK: 130-159 MG/DL 110-129 MG/DL HIGH RISK: >160 MG/DL >130 MG/DL *CHILDREN AND ADOLESCENTS REPRESENTS INDIVIDUALA AGED 2-19 YEARS EXCLUSIVE. CHRONIC KIDNEY DISEASE STAGING PER NKF: MALE [...] mL/min Normal 80 and above >32 mL/min NormalNORMAL RANGES Age WBC RBC HGB HCT MCV PLT Adult M 4.1-10.9 4.20-6.30 12.0-18.0 37.0-51.0 80-97 140-440 Adult F 4.1-10.9 4.04-5.48 12.0-18.0 37.0-51.0 80-97 140-440 0- 1 Yr 5.0-20.0 3.9-5.9 15-18 MV: 44 MV: 91 MV: 277 2-9 Yr. 6.0-17.0 3.8-5.4 11-13 MV: 37 MV: 78 MV: 300 10 Yrs. 5.0-13.0 3.8-5.4 12-15 MV: 39 MV: 80 MV: 250 NOTE: * FOR ADULT BLACK MALES AND FEMALES, NORMAL WBC IS 2.9-7.7 K/ML * FOR ADULT BLACK MALES AND FEMALES, NORMAL RBC,HGB, AND HCT IS 5% LESS SOURCE FOR DATA: Confovis DYN 1800 OPERATION MANUAL( AUTOMATED BLOOD COUNTS AND DIFF.) APPENDIX B-3 Trig 80 mg/dL 40-200 [facility] ([facility] CLASSIFICATION CHOLESTEROL FO R ADULTS CHILDREN/ADOLESCENTS* DESIRABLE: <200 MG/DL <170 MG/DL BORDER-LINE HIGH RISK: 200-239 MG/DL 170-199 MG/DL HIGH RISK: >240 MG/DL >200 MG/DL CLASS. FOR PRIMARY LDL CHOL PREVENTION: LDL CHOL-CHILD/ADOLESCENTS* DESIRABLE: <130 MG/DL <110 MG/DL BORDERLINE-HIGH RISK: 130-159 MG/DL 110-129 MG/DL HIGH RISK: >160 MG/DL >130 MG/DL *CHILDREN AND ADOLESCENTS REPRESENTS INDIVIDUALA AGED 2-19 YEARS EXCLUSIVE. CHRONIC KIDNEY DISEASE STAGING PER NKF: MALE [...] mL/min Normal 80 and above >32 mL/min NormalNORMAL RANGES Age WBC RBC HGB HCT MCV PLT Adult M 4.1-10.9 4.20-6.30 12.0-18.0 37.0-51.0 80-97 140-440 Adult F 4.1-10.9 4.04-5.48 12.0-18.0 37.0-51.0 80-97 140-440 0- 1 Yr 5.0-20.0 3.9-5.9 15-18 MV: 44 MV: 91 MV: 277 2-9 Yr. 6.0-17.0 3.8-5.4 11-13 MV: 37 MV: 78 MV: 300 10 Yrs. 5.0-13.0 3.8-5.4 12-15 MV: 39 MV: 80 MV: 250 NOTE: * FOR ADULT BLACK MALES AND FEMALES, NORMAL WBC IS 2.9-7.7 K/ML * FOR ADULT BLACK MALES AND FEMALES, NORMAL RBC,HGB, AND HCT IS 5% LESS SOURCE FOR DATA: Confovis DYN 1800 OPERATION MANUAL( AUTOMATED BLOOD COUNTS AND DIFF.) APPENDIX B-3 Chol 254 mg/dL 0-200 Above high normal [facility] CLASSIFICATION CHOLESTEROL FO R ADULTS CHILDREN/ADOLESCENTS* DESIRABLE: <200 MG/DL <170 MG/DL BORDER-LINE HIGH RISK: 200-239 MG/DL 170-199 MG/DL HIGH RISK: >240 MG/DL >200 MG/DL CLASS. FOR PRIMARY LDL CHOL PREVENTION: LDL CHOL-CHILD/ADOLESCENTS* DESIRABLE: <130 MG/DL <110 MG/DL BORDERLINE-HIGH RISK: 130-159 MG/DL 110-129 MG/DL HIGH RISK: >160 MG/DL >130 MG/DL *CHILDREN AND ADOLESCENTS REPRESENTS INDIVIDUALA AGED 2-19 YEARS EXCLUSIVE. CHRONIC KIDNEY DISEASE STAGING PER NKF: MALE [...] mL/min Normal 80 and above >32 mL/min NormalNORMAL RANGES Age WBC RBC HGB HCT MCV PLT Adult M 4.1-10.9 4.20-6.30 12.0-18.0 37.0-51.0 80-97 140-440 Adult F 4.1-10.9 4.04-5.48 12.0-18.0 37.0-51.0 80-97 140-440 0- 1 Yr 5.0-20.0 3.9-5.9 15-18 MV: 44 MV: 91 MV: 277 2-9 Yr. 6.0-17.0 3.8-5.4 11-13 MV: 37 MV: 78 MV: 300 10 Yrs. 5.0-13.0 3.8-5.4 12-15 MV: 39 MV: 80 MV: 250 NOTE: * FOR ADULT BLACK MALES AND FEMALES, NORMAL WBC IS 2.9-7.7 K/ML * FOR ADULT BLACK MALES AND FEMALES, NORMAL RBC,HGB, AND HCT IS 5% LESS SOURCE FOR DATA: Isonas 1800 OPERATION MANUAL( AUTOMATED BLOOD COUNTS AND DIFF.) APPENDIX B-3 LDL_C 140 Calc 75-129 Above high normal [facility] ([facility] CLASSIFICATION CHOLESTEROL FO R ADULTS CHILDREN/ADOLESCENTS* DESIRABLE: <200 MG/DL <170 MG/DL BORDER-LINE HIGH RISK: 200-239 MG/DL 170-199 MG/DL HIGH RISK: >240 MG/DL >200 MG/DL CLASS. FOR PRIMARY LDL CHOL PREVENTION: LDL CHOL-CHILD/ADOLESCENTS* DESIRABLE: <130 MG/DL <110 MG/DL BORDERLINE-HIGH RISK: 130-159 MG/DL 110-129 MG/DL HIGH RISK: >160 MG/DL >130 MG/DL *CHILDREN AND ADOLESCENTS REPRESENTS INDIVIDUALA AGED 2-19 YEARS EXCLUSIVE. CHRONIC KIDNEY DISEASE STAGING PER NKF: MALE [...] mL/min Normal 80 and above >32 mL/min NormalNORMAL RANGES Age WBC RBC HGB HCT MCV PLT Adult M 4.1-10.9 4.20-6.30 12.0-18.0 37.0-51.0 80-97 140-440 Adult F 4.1-10.9 4.04-5.48 12.0-18.0 37.0-51.0 80-97 140-440 0- 1 Yr 5.0-20.0 3.9-5.9 15-18 MV: 44 MV: [...] AUTOMATED BLOOD COUNTS AND DIFF.) APPENDIX B-3 Cho/HDL Ratio 2.6 Calc [facility] CLASSIFICATION CHOLESTEROL FO R ADULTS CHILDREN/ADOLESCENTS* DESIRABLE: <200 MG/DL <170 MG/DL BORDER-LINE HIGH RISK: 200-239 MG/DL 170-199 MG/DL HIGH RISK: >240 MG/DL >200 MG/DL CLASS. FOR PRIMARY LDL CHOL PREVENTION: LDL CHOL-CHILD/ADOLESCENTS* DESIRABLE: <130 MG/DL <110 MG/DL BORDERLINE-HIGH RISK: 130-159 MG/DL 110-129 MG/DL HIGH RISK: >160 MG/DL >130 MG/DL *CHILDREN AND ADOLESCENTS REPRESENTS INDIVIDUALA AGED 2-19 YEARS EXCLUSIVE. CHRONIC KIDNEY DISEASE STAGING PER NKF: MALE [...] mL/min Normal 80 and above >32 mL/min NormalNORMAL RANGES Age WBC RBC HGB HCT MCV PLT Adult M 4.1-10.9 4.20-6.30 12.0-18.0 37.0-51.0 80-97 140-440 Adult F 4.1-10.9 4.04-5.48 12.0-18.0 37.0-51.0 80-97 140-440 0- 1 Yr 5.0-20.0 3.9-5.9 15-18 MV: 44 MV: 91 MV: 277 2-9 Yr. 6.0-17.0 3.8-5.4 11-13 MV: 37 MV: 78 MV: 300 10 Yrs. 5.0-13.0 3.8-5.4 12-15 MV: 39 MV: 80 MV: 250 NOTE: * FOR ADULT BLACK MALES AND FEMALES, NORMAL WBC IS 2.9-7.7 K/ML * FOR ADULT BLACK MALES AND FEMALES, NORMAL RBC,HGB, AND HCT IS 5% LESS SOURCE FOR DATA: Confovis DYN 1800 OPERATION MANUAL( AUTOMATED BLOOD COUNTS AND DIFF.) APPENDIX B-3 ID Date Data Source [id number] 06/26/2019 01:32:00 PM EST [facility] ([facility] Name Value Range Interpretation Code Description Data Vicky rce(s) Supporting Document(s) Glu 97 mg/dL 70-110 [facility] ([facility] CLASSIFICATION CHOLESTEROL FO R ADULTS CHILDREN/ADOLESCENTS* DESIRABLE: <200 MG/DL <170 MG/DL BORDER-LINE HIGH RISK: 200-239 MG/DL 170-199 MG/DL HIGH RISK: >240 MG/DL >200 MG/DL CLASS. FOR PRIMARY LDL CHOL PREVENTION: LDL CHOL-CHILD/ADOLESCENTS* DESIRABLE: <130 MG/DL <110 MG/DL BORDERLINE-HIGH RISK: 130-159 MG/DL 110-129 MG/DL HIGH RISK: >160 MG/DL >130 MG/DL *CHILDREN AND ADOLESCENTS REPRESENTS INDIVIDUALA AGED 2-19 YEARS EXCLUSIVE. CHRONIC KIDNEY DISEASE STAGING PER NKF: MALE [...] mL/min Normal 80 and above >32 mL/min NormalNORMAL RANGES Age WBC RBC HGB HCT MCV PLT Adult M 4.1-10.9 4.20-6.30 12.0-18.0 37.0-51.0 80-97 140-440 Adult F 4.1-10.9 4.04-5.48 12.0-18.0 37.0-51.0 80-97 140-440 0- 1 Yr 5.0-20.0 3.9-5.9 15-18 MV: 44 MV: [...] AUTOMATED BLOOD COUNTS AND DIFF.) APPENDIX B-3 BUN 18 mg/dL 8- [facility] CLASSIFICATION CHOLESTEROL FO R ADULTS CHILDREN/ADOLESCENTS* DESIRABLE: <200 MG/DL <170 MG/DL BORDER-LINE HIGH RISK: 200-239 MG/DL 170-199 MG/DL HIGH RISK: >240 MG/DL >200 MG/DL CLASS. FOR PRIMARY LDL CHOL PREVENTION: LDL CHOL-CHILD/ADOLESCENTS* DESIRABLE: <130 MG/DL <110 MG/DL BORDERLINE-HIGH RISK: 130-159 MG/DL 110-129 MG/DL HIGH RISK: >160 MG/DL >130 MG/DL *CHILDREN AND ADOLESCENTS REPRESENTS INDIVIDUALA AGED 2-19 YEARS EXCLUSIVE. CHRONIC KIDNEY DISEASE STAGING PER NKF: MALE [...] mL/min Normal 80 and above >32 mL/min NormalNORMAL RANGES Age WBC RBC HGB HCT MCV PLT Adult M 4.1-10.9 4.20-6.30 12.0-18.0 37.0-51.0 80-97 140-440 Adult F 4.1-10.9 4.04-5.48 12.0-18.0 37.0-51.0 80-97 140-440 0- 1 Yr 5.0-20.0 3.9-5.9 15-18 MV: 44 MV: [...] AUTOMATED BLOOD COUNTS AND DIFF.) APPENDIX B-3 Creat 0.9 mg/dL 0.5-1.0 [facility] ([facility] CLASSIFICATION CHOLESTEROL FO R ADULTS CHILDREN/ADOLESCENTS* DESIRABLE: <200 MG/DL <170 MG/DL BORDER-LINE HIGH RISK: 200-239 MG/DL 170-199 MG/DL HIGH RISK: >240 MG/DL >200 MG/DL CLASS. FOR PRIMARY LDL CHOL PREVENTION: LDL CHOL-CHILD/ADOLESCENTS* DESIRABLE: <130 MG/DL <110 MG/DL BORDERLINE-HIGH RISK: 130-159 MG/DL 110-129 MG/DL HIGH RISK: >160 MG/DL >130 MG/DL *CHILDREN AND ADOLESCENTS REPRESENTS INDIVIDUALA AGED 2-19 YEARS EXCLUSIVE. CHRONIC KIDNEY DISEASE STAGING PER NKF: MALE [...] mL/min Normal 80 and above >32 mL/min NormalNORMAL RANGES Age WBC RBC HGB HCT MCV PLT Adult M 4.1-10.9 4.20-6.30 12.0-18.0 37.0-51.0 80-97 140-440 Adult F 4.1-10.9 4.04-5.48 12.0-18.0 37.0-51.0 80-97 140-440 0- 1 Yr 5.0-20.0 3.9-5.9 15-18 MV: 44 MV: 91 MV: 277 2-9 Yr. 6.0-17.0 3.8-5.4 11-13 MV: 37 MV: 78 MV: 300 10 Yrs. 5.0-13.0 3.8-5.4 12-15 MV: 39 MV: 80 MV: 250 NOTE: * FOR ADULT BLACK MALES AND FEMALES, NORMAL WBC IS 2.9-7.7 K/ML * FOR ADULT BLACK MALES AND FEMALES, NORMAL RBC,HGB, AND HCT IS 5% LESS SOURCE FOR DATA: Isonas 1800 OPERATION MANUAL( AUTOMATED BLOOD COUNTS AND DIFF.) APPENDIX B-3 BUN/Creatinine Ratio 19.9 CALC [facility] ([facility] CLASSIFICATION CHOLESTEROL FO R ADULTS CHILDREN/ADOLESCENTS* DESIRABLE: <200 MG/DL <170 MG/DL BORDER-LINE HIGH RISK: 200-239 MG/DL 170-199 MG/DL HIGH RISK: >240 MG/DL >200 MG/DL CLASS. FOR PRIMARY LDL CHOL PREVENTION: LDL CHOL-CHILD/ADOLESCENTS* DESIRABLE: <130 MG/DL <110 MG/DL BORDERLINE-HIGH RISK: 130-159 MG/DL 110-129 MG/DL HIGH RISK: >160 MG/DL >130 MG/DL *CHILDREN AND ADOLESCENTS REPRESENTS INDIVIDUALA AGED 2-19 YEARS EXCLUSIVE. CHRONIC KIDNEY DISEASE STAGING PER NKF: MALE [...] mL/min Normal 80 and above >32 mL/min NormalNORMAL RANGES Age WBC RBC HGB HCT MCV PLT Adult M 4.1-10.9 4.20-6.30 12.0-18.0 37.0-51.0 80-97 140-440 Adult F 4.1-10.9 4.04-5.48 12.0-18.0 37.0-51.0 80-97 140-440 0- 1 Yr 5.0-20.0 3.9-5.9 15-18 MV: 44 MV: [...] AUTOMATED BLOOD COUNTS AND DIFF.) APPENDIX B-3 Na 138 mmol/L 136-145 [facility] CLASSIFICATION CHOLESTEROL FO R ADULTS CHILDREN/ADOLESCENTS* DESIRABLE: <200 MG/DL <170 MG/DL BORDER-LINE HIGH RISK: 200-239 MG/DL 170-199 MG/DL HIGH RISK: >240 MG/DL >200 MG/DL CLASS. FOR PRIMARY LDL CHOL PREVENTION: LDL CHOL-CHILD/ADOLESCENTS* DESIRABLE: <130 MG/DL <110 MG/DL BORDERLINE-HIGH RISK: 130-159 MG/DL 110-129 MG/DL HIGH RISK: >160 MG/DL >130 MG/DL *CHILDREN AND ADOLESCENTS REPRESENTS INDIVIDUALA AGED 2-19 YEARS EXCLUSIVE. CHRONIC KIDNEY DISEASE STAGING PER NKF: MALE [...] mL/min Normal 80 and above >32 mL/min NormalNORMAL RANGES Age WBC RBC HGB HCT MCV PLT Adult M 4.1-10.9 4.20-6.30 12.0-18.0 37.0-51.0 80-97 140-440 Adult F 4.1-10.9 4.04-5.48 12.0-18.0 37.0-51.0 80-97 140-440 0- 1 Yr 5.0-20.0 3.9-5.9 15-18 MV: 44 MV: [...] AUTOMATED BLOOD COUNTS AND DIFF.) APPENDIX B-3 Co2 22.8 mmol/L 22.0-29.0 [facility] ([facility] CLASSIFICATION CHOLESTEROL FO R ADULTS CHILDREN/ADOLESCENTS* DESIRABLE: <200 MG/DL <170 MG/DL BORDER-LINE HIGH RISK: 200-239 MG/DL 170-199 MG/DL HIGH RISK: >240 MG/DL >200 MG/DL CLASS. FOR PRIMARY LDL CHOL PREVENTION: LDL CHOL-CHILD/ADOLESCENTS* DESIRABLE: <130 MG/DL <110 MG/DL BORDERLINE-HIGH RISK: 130-159 MG/DL 110-129 MG/DL HIGH RISK: >160 MG/DL >130 MG/DL *CHILDREN AND ADOLESCENTS REPRESENTS INDIVIDUALA AGED 2-19 YEARS EXCLUSIVE. CHRONIC KIDNEY DISEASE STAGING PER NKF: MALE [...] mL/min Normal 80 and above >32 mL/min NormalNORMAL RANGES Age WBC RBC HGB HCT MCV PLT Adult M 4.1-10.9 4.20-6.30 12.0-18.0 37.0-51.0 80-97 140-440 Adult F 4.1-10.9 4.04-5.48 12.0-18.0 37.0-51.0 80-97 140-440 0- 1 Yr 5.0-20.0 3.9-5.9 15-18 MV: 44 MV: 91 MV: 277 2-9 Yr. 6.0-17.0 3.8-5.4 11-13 MV: 37 MV: 78 MV: 300 10 Yrs. 5.0-13.0 3.8-5.4 12-15 MV: 39 MV: 80 MV: 250 NOTE: * FOR ADULT BLACK MALES AND FEMALES, NORMAL WBC IS 2.9-7.7 K/ML * FOR ADULT BLACK MALES AND FEMALES, NORMAL RBC,HGB, AND HCT IS 5% LESS SOURCE FOR DATA: [employer] 1800 OPERATION MANUAL( AUTOMATED BLOOD COUNTS AND DIFF.) APPENDIX B-3 K 4.6 mmol/L 3.5-5.1 [facility] ([facility] CLASSIFICATION CHOLESTEROL FO R ADULTS CHILDREN/ADOLESCENTS* DESIRABLE: <200 MG/DL <170 MG/DL BORDER-LINE HIGH RISK: 200-239 MG/DL 170-199 MG/DL HIGH RISK: >240 MG/DL >200 MG/DL CLASS. FOR PRIMARY LDL CHOL PREVENTION: LDL CHOL-CHILD/ADOLESCENTS* DESIRABLE: <130 MG/DL <110 MG/DL BORDERLINE-HIGH RISK: 130-159 MG/DL 110-129 MG/DL HIGH RISK: >160 MG/DL >130 MG/DL *CHILDREN AND ADOLESCENTS REPRESENTS INDIVIDUALA AGED 2-19 YEARS EXCLUSIVE. CHRONIC KIDNEY DISEASE STAGING PER NKF: MALE [...] mL/min Normal 80 and above >32 mL/min NormalNORMAL RANGES Age WBC RBC HGB HCT MCV PLT Adult M 4.1-10.9 4.20-6.30 12.0-18.0 37.0-51.0 80-97 140-440 Adult F 4.1-10.9 4.04-5.48 12.0-18.0 37.0-51.0 80-97 140-440 0- 1 Yr 5.0-20.0 3.9-5.9 15-18 MV: 44 MV: 91 MV: 277 2-9 Yr. 6.0-17.0 3.8-5.4 11-13 MV: 37 MV: 78 MV: 300 10 Yrs. 5.0-13.0 3.8-5.4 12-15 MV: 39 MV: 80 MV: 250 NOTE: * FOR ADULT BLACK MALES AND FEMALES, NORMAL WBC IS 2.9-7.7 K/ML * FOR ADULT BLACK MALES AND FEMALES, NORMAL RBC,HGB, AND HCT IS 5% LESS SOURCE FOR DATA: [employer] 1800 OPERATION MANUAL( AUTOMATED BLOOD COUNTS AND DIFF.) APPENDIX B-3 CL 98.9 mmol/L 98.0-107.0 [facility] ([facility] CLASSIFICATION CHOLESTEROL FO R ADULTS CHILDREN/ADOLESCENTS* DESIRABLE: <200 MG/DL <170 MG/DL BORDER-LINE HIGH RISK: 200-239 MG/DL 170-199 MG/DL HIGH RISK: >240 MG/DL >200 MG/DL CLASS. FOR PRIMARY LDL CHOL PREVENTION: LDL CHOL-CHILD/ADOLESCENTS* DESIRABLE: <130 MG/DL <110 MG/DL BORDERLINE-HIGH RISK: 130-159 MG/DL 110-129 MG/DL HIGH RISK: >160 MG/DL >130 MG/DL *CHILDREN AND ADOLESCENTS REPRESENTS INDIVIDUALA AGED 2-19 YEARS EXCLUSIVE. CHRONIC KIDNEY DISEASE STAGING PER NKF: MALE [...] mL/min Normal 80 and above >32 mL/min NormalNORMAL RANGES Age WBC RBC HGB HCT MCV PLT Adult M 4.1-10.9 4.20-6.30 12.0-18.0 37.0-51.0 80-97 140-440 Adult F 4.1-10.9 4.04-5.48 12.0-18.0 37.0-51.0 80-97 140-440 0- 1 Yr 5.0-20.0 3.9-5.9 15-18 MV: 44 MV: 91 MV: 277 2-9 Yr. 6.0-17.0 3.8-5.4 11-13 MV: 37 MV: 78 MV: 300 10 Yrs. 5.0-13.0 3.8-5.4 12-15 MV: 39 MV: 80 MV: 250 NOTE: * FOR ADULT BLACK MALES AND FEMALES, NORMAL WBC IS 2.9-7.7 K/ML * FOR ADULT BLACK MALES AND FEMALES, NORMAL RBC,HGB, AND HCT IS 5% LESS SOURCE FOR DATA: [employer] DYN 1800 OPERATION MANUAL( AUTOMATED BLOOD COUNTS AND DIFF.) APPENDIX B-3 TP 7.4 g/dL 6.6-8.7 [facility] CLASSIFICATION CHOLESTEROL FO R ADULTS CHILDREN/ADOLESCENTS* DESIRABLE: <200 MG/DL <170 MG/DL BORDER-LINE HIGH RISK: 200-239 MG/DL 170-199 MG/DL HIGH RISK: >240 MG/DL >200 MG/DL CLASS. FOR PRIMARY LDL CHOL PREVENTION: LDL CHOL-CHILD/ADOLESCENTS* DESIRABLE: <130 MG/DL <110 MG/DL BORDERLINE-HIGH RISK: 130-159 MG/DL 110-129 MG/DL HIGH RISK: >160 MG/DL >130 MG/DL *CHILDREN AND ADOLESCENTS REPRESENTS INDIVIDUALA AGED 2-19 YEARS EXCLUSIVE. CHRONIC KIDNEY DISEASE STAGING PER NKF: MALE [...] mL/min Normal 80 and above >32 mL/min NormalNORMAL RANGES Age WBC RBC HGB HCT MCV PLT Adult M 4.1-10.9 4.20-6.30 12.0-18.0 37.0-51.0 80-97 140-440 Adult F 4.1-10.9 4.04-5.48 12.0-18.0 37.0-51.0 80-97 140-440 0- 1 Yr 5.0-20.0 3.9-5.9 15-18 MV: 44 MV: 91 MV: 277 2-9 Yr. 6.0-17.0 3.8-5.4 11-13 MV: 37 MV: 78 MV: 300 10 Yrs. 5.0-13.0 3.8-5.4 12-15 MV: 39 MV: 80 MV: 250 NOTE: * FOR ADULT BLACK MALES AND FEMALES, NORMAL WBC IS 2.9-7.7 K/ML * FOR ADULT BLACK MALES AND FEMALES, NORMAL RBC,HGB, AND HCT IS 5% LESS SOURCE FOR DATA: [employer] 1800 OPERATION MANUAL( AUTOMATED BLOOD COUNTS AND DIFF.) APPENDIX B-3 CA 10.3 mg/dL 8.6-10.2 Above high normal [facility] ([facility] CLASSIFICATION CHOLESTEROL FO R ADULTS CHILDREN/ADOLESCENTS* DESIRABLE: <200 MG/DL <170 MG/DL BORDER-LINE HIGH RISK: 200-239 MG/DL 170-199 MG/DL HIGH RISK: >240 MG/DL >200 MG/DL CLASS. FOR PRIMARY LDL CHOL PREVENTION: LDL CHOL-CHILD/ADOLESCENTS* DESIRABLE: <130 MG/DL <110 MG/DL BORDERLINE-HIGH RISK: 130-159 MG/DL 110-129 MG/DL HIGH RISK: >160 MG/DL >130 MG/DL *CHILDREN AND ADOLESCENTS REPRESENTS INDIVIDUALA AGED 2-19 YEARS EXCLUSIVE. CHRONIC KIDNEY DISEASE STAGING PER NKF: MALE [...] mL/min Normal 80 and above >32 mL/min NormalNORMAL RANGES Age WBC RBC HGB HCT MCV PLT Adult M 4.1-10.9 4.20-6.30 12.0-18.0 37.0-51.0 80-97 140-440 Adult F 4.1-10.9 4.04-5.48 12.0-18.0 37.0-51.0 80-97 140-440 0- 1 Yr 5.0-20.0 3.9-5.9 15-18 MV: 44 MV: [...] AUTOMATED BLOOD COUNTS AND DIFF.) APPENDIX B-3 A/G Ratio 1.3 CALC [facility] ([facility] CLASSIFICATION CHOLESTEROL FO R ADULTS CHILDREN/ADOLESCENTS* DESIRABLE: <200 MG/DL <170 MG/DL BORDER-LINE HIGH RISK: 200-239 MG/DL 170-199 MG/DL HIGH RISK: >240 MG/DL >200 MG/DL CLASS. FOR PRIMARY LDL CHOL PREVENTION: LDL CHOL-CHILD/ADOLESCENTS* DESIRABLE: <130 MG/DL <110 MG/DL BORDERLINE-HIGH RISK: 130-159 MG/DL 110-129 MG/DL HIGH RISK: >160 MG/DL >130 MG/DL *CHILDREN AND ADOLESCENTS REPRESENTS INDIVIDUALA AGED 2-19 YEARS EXCLUSIVE. CHRONIC KIDNEY DISEASE STAGING PER NKF: MALE [...] mL/min Normal 80 and above >32 mL/min NormalNORMAL RANGES Age WBC RBC HGB HCT MCV PLT Adult M 4.1-10.9 4.20-6.30 12.0-18.0 37.0-51.0 80-97 140-440 Adult F 4.1-10.9 4.04-5.48 12.0-18.0 37.0-51.0 80-97 140-440 0- 1 Yr 5.0-20.0 3.9-5.9 15-18 MV: 44 MV: 91 MV: 277 2-9 Yr. 6.0-17.0 3.8-5.4 11-13 MV: 37 MV: 78 MV: 300 10 Yrs. 5.0-13.0 3.8-5.4 12-15 MV: 39 MV: 80 MV: 250 NOTE: * FOR ADULT BLACK MALES AND FEMALES, NORMAL WBC IS 2.9-7.7 K/ML * FOR ADULT BLACK MALES AND FEMALES, NORMAL RBC,HGB, AND HCT IS 5% LESS SOURCE FOR DATA: [employer] DYN 1800 OPERATION MANUAL( AUTOMATED BLOOD COUNTS AND DIFF.) APPENDIX B-3 Globulin 3.2 CALC [facility] ([facility] CLASSIFICATION CHOLESTEROL FO R ADULTS CHILDREN/ADOLESCENTS* DESIRABLE: <200 MG/DL <170 MG/DL BORDER-LINE HIGH RISK: 200-239 MG/DL 170-199 MG/DL HIGH RISK: >240 MG/DL >200 MG/DL CLASS. FOR PRIMARY LDL CHOL PREVENTION: LDL CHOL-CHILD/ADOLESCENTS* DESIRABLE: <130 MG/DL <110 MG/DL BORDERLINE-HIGH RISK: 130-159 MG/DL 110-129 MG/DL HIGH RISK: >160 MG/DL >130 MG/DL *CHILDREN AND ADOLESCENTS REPRESENTS INDIVIDUALA AGED 2-19 YEARS EXCLUSIVE. CHRONIC KIDNEY DISEASE STAGING PER NKF: MALE [...] mL/min Normal 80 and above >32 mL/min NormalNORMAL RANGES Age WBC RBC HGB HCT MCV PLT Adult M 4.1-10.9 4.20-6.30 12.0-18.0 37.0-51.0 80-97 140-440 Adult F 4.1-10.9 4.04-5.48 12.0-18.0 37.0-51.0 80-97 140-440 0- 1 Yr 5.0-20.0 3.9-5.9 15-18 MV: 44 MV: 91 MV: 277 2-9 Yr. 6.0-17.0 3.8-5.4 11-13 MV: 37 MV: 78 MV: 300 10 Yrs. 5.0-13.0 3.8-5.4 12-15 MV: 39 MV: 80 MV: 250 NOTE: * FOR ADULT BLACK MALES AND FEMALES, NORMAL WBC IS 2.9-7.7 K/ML * FOR ADULT BLACK MALES AND FEMALES, NORMAL RBC,HGB, AND HCT IS 5% LESS SOURCE FOR DATA: [employer] 1800 OPERATION MANUAL( AUTOMATED BLOOD COUNTS AND DIFF.) APPENDIX B-3 Alb 4.2 g/dL 3.4-4.8 [facility] CLASSIFICATION CHOLESTEROL FO R ADULTS CHILDREN/ADOLESCENTS* DESIRABLE: <200 MG/DL <170 MG/DL BORDER-LINE HIGH RISK: 200-239 MG/DL 170-199 MG/DL HIGH RISK: >240 MG/DL >200 MG/DL CLASS. FOR PRIMARY LDL CHOL PREVENTION: LDL CHOL-CHILD/ADOLESCENTS* DESIRABLE: <130 MG/DL <110 MG/DL BORDERLINE-HIGH RISK: 130-159 MG/DL 110-129 MG/DL HIGH RISK: >160 MG/DL >130 MG/DL *CHILDREN AND ADOLESCENTS REPRESENTS INDIVIDUALA AGED 2-19 YEARS EXCLUSIVE. CHRONIC KIDNEY DISEASE STAGING PER NKF: MALE [...] mL/min Normal 80 and above >32 mL/min NormalNORMAL RANGES Age WBC RBC HGB HCT MCV PLT Adult M 4.1-10.9 4.20-6.30 12.0-18.0 37.0-51.0 80-97 140-440 Adult F 4.1-10.9 4.04-5.48 12.0-18.0 37.0-51.0 80-97 140-440 0- 1 Yr 5.0-20.0 3.9-5.9 15-18 MV: 44 MV: 91 MV: 277 2-9 Yr. 6.0-17.0 3.8-5.4 11-13 MV: 37 MV: 78 MV: 300 10 Yrs. 5.0-13.0 3.8-5.4 12-15 MV: 39 MV: 80 MV: 250 NOTE: * FOR ADULT BLACK MALES AND FEMALES, NORMAL WBC IS 2.9-7.7 K/ML * FOR ADULT BLACK MALES AND FEMALES, NORMAL RBC,HGB, AND HCT IS 5% LESS SOURCE FOR DATA: [employer] 1800 OPERATION MANUAL( AUTOMATED BLOOD COUNTS AND DIFF.) APPENDIX B-3 Ast (Sgot) 15 U/L 0-40 [facility] CLASSIFICATION CHOLESTEROL FO R ADULTS CHILDREN/ADOLESCENTS* DESIRABLE: <200 MG/DL <170 MG/DL BORDER-LINE HIGH RISK: 200-239 MG/DL 170-199 MG/DL HIGH RISK: >240 MG/DL >200 MG/DL CLASS. FOR PRIMARY LDL CHOL PREVENTION: LDL CHOL-CHILD/ADOLESCENTS* DESIRABLE: <130 MG/DL <110 MG/DL BORDERLINE-HIGH RISK: 130-159 MG/DL 110-129 MG/DL HIGH RISK: >160 MG/DL >130 MG/DL *CHILDREN AND ADOLESCENTS REPRESENTS INDIVIDUALA AGED 2-19 YEARS EXCLUSIVE. CHRONIC KIDNEY DISEASE STAGING PER NKF: MALE [...] mL/min Normal 80 and above >32 mL/min NormalNORMAL RANGES Age WBC RBC HGB HCT MCV PLT Adult M 4.1-10.9 4.20-6.30 12.0-18.0 37.0-51.0 80-97 140-440 Adult F 4.1-10.9 4.04-5.48 12.0-18.0 37.0-51.0 80-97 140-440 0- 1 Yr 5.0-20.0 3.9-5.9 15-18 MV: 44 MV: 91 MV: 277 2-9 Yr. 6.0-17.0 3.8-5.4 11-13 MV: 37 MV: 78 MV: 300 10 Yrs. 5.0-13.0 3.8-5.4 12-15 MV: 39 MV: 80 MV: 250 NOTE: * FOR ADULT BLACK MALES AND FEMALES, NORMAL WBC IS 2.9-7.7 K/ML * FOR ADULT BLACK MALES AND FEMALES, NORMAL RBC,HGB, AND HCT IS 5% LESS SOURCE FOR DATA: [employer] DYN 1800 OPERATION MANUAL( AUTOMATED BLOOD COUNTS AND DIFF.) APPENDIX B-3 Alp 219.6 U/L 35-129 Above high normal [facility] ([facility] CLASSIFICATION CHOLESTEROL FO R ADULTS CHILDREN/ADOLESCENTS* DESIRABLE: <200 MG/DL <170 MG/DL BORDER-LINE HIGH RISK: 200-239 MG/DL 170-199 MG/DL HIGH RISK: >240 MG/DL >200 MG/DL CLASS. FOR PRIMARY LDL CHOL PREVENTION: LDL CHOL-CHILD/ADOLESCENTS* DESIRABLE: <130 MG/DL <110 MG/DL BORDERLINE-HIGH RISK: 130-159 MG/DL 110-129 MG/DL HIGH RISK: >160 MG/DL >130 MG/DL *CHILDREN AND ADOLESCENTS REPRESENTS INDIVIDUALA AGED 2-19 YEARS EXCLUSIVE. CHRONIC KIDNEY DISEASE STAGING PER NKF: MALE [...] mL/min Normal 80 and above >32 mL/min NormalNORMAL RANGES Age WBC RBC HGB HCT MCV PLT Adult M 4.1-10.9 4.20-6.30 12.0-18.0 37.0-51.0 80-97 140-440 Adult F 4.1-10.9 4.04-5.48 12.0-18.0 37.0-51.0 80-97 140-440 0- 1 Yr 5.0-20.0 3.9-5.9 15-18 MV: 44 MV: 91 MV: 277 2-9 Yr. 6.0-17.0 3.8-5.4 11-13 MV: 37 MV: 78 MV: 300 10 Yrs. 5.0-13.0 3.8-5.4 12-15 MV: 39 MV: 80 MV: 250 NOTE: * FOR ADULT BLACK MALES AND FEMALES, NORMAL WBC IS 2.9-7.7 K/ML * FOR ADULT BLACK MALES AND FEMALES, NORMAL RBC,HGB, AND HCT IS 5% LESS SOURCE FOR DATA: [employer] DYN 1800 OPERATION MANUAL( AUTOMATED BLOOD COUNTS AND DIFF.) APPENDIX B-3 Alt (SGPT) 12 U/L 0-41 [facility] ([facility] CLASSIFICATION CHOLESTEROL FO R ADULTS CHILDREN/ADOLESCENTS* DESIRABLE: <200 MG/DL <170 MG/DL BORDER-LINE HIGH RISK: 200-239 MG/DL 170-199 MG/DL HIGH RISK: >240 MG/DL >200 MG/DL CLASS. FOR PRIMARY LDL CHOL PREVENTION: LDL CHOL-CHILD/ADOLESCENTS* DESIRABLE: <130 MG/DL <110 MG/DL BORDERLINE-HIGH RISK: 130-159 MG/DL 110-129 MG/DL HIGH RISK: >160 MG/DL >130 MG/DL *CHILDREN AND ADOLESCENTS REPRESENTS INDIVIDUALA AGED 2-19 YEARS EXCLUSIVE. CHRONIC KIDNEY DISEASE STAGING PER NKF: MALE [...] mL/min Normal 80 and above >32 mL/min NormalNORMAL RANGES Age WBC RBC HGB HCT MCV PLT Adult M 4.1-10.9 4.20-6.30 12.0-18.0 37.0-51.0 80-97 140-440 Adult F 4.1-10.9 4.04-5.48 12.0-18.0 37.0-51.0 80-97 140-440 0- 1 Yr 5.0-20.0 3.9-5.9 15-18 MV: 44 MV: [...] AUTOMATED BLOOD COUNTS AND DIFF.) APPENDIX B-3 Tbili 0.51 mg/dL 0.0-1.2 [facility] CLASSIFICATION CHOLESTEROL FO R ADULTS CHILDREN/ADOLESCENTS* DESIRABLE: <200 MG/DL <170 MG/DL BORDER-LINE HIGH RISK: 200-239 MG/DL 170-199 MG/DL HIGH RISK: >240 MG/DL >200 MG/DL CLASS. FOR PRIMARY LDL CHOL PREVENTION: LDL CHOL-CHILD/ADOLESCENTS* DESIRABLE: <130 MG/DL <110 MG/DL BORDERLINE-HIGH RISK: 130-159 MG/DL 110-129 MG/DL HIGH RISK: >160 MG/DL >130 MG/DL *CHILDREN AND ADOLESCENTS REPRESENTS INDIVIDUALA AGED 2-19 YEARS EXCLUSIVE. CHRONIC KIDNEY DISEASE STAGING PER NKF: MALE [...] mL/min Normal 80 and above >32 mL/min NormalNORMAL RANGES Age WBC RBC HGB HCT MCV PLT Adult M 4.1-10.9 4.20-6.30 12.0-18.0 37.0-51.0 80-97 140-440 Adult F 4.1-10.9 4.04-5.48 12.0-18.0 37.0-51.0 80-97 140-440 0- 1 Yr 5.0-20.0 3.9-5.9 15-18 MV: 44 MV: 91 MV: 277 2-9 Yr. 6.0-17.0 3.8-5.4 11-13 MV: 37 MV: 78 MV: 300 10 Yrs. 5.0-13.0 3.8-5.4 12-15 MV: 39 MV: 80 MV: 250 NOTE: * FOR ADULT BLACK MALES AND FEMALES, NORMAL WBC IS 2.9-7.7 K/ML * FOR ADULT BLACK MALES AND FEMALES, NORMAL RBC,HGB, AND HCT IS 5% LESS SOURCE FOR DATA: [employer] DYN 1800 OPERATION MANUAL( AUTOMATED BLOOD COUNTS AND DIFF.) APPENDIX B-3 Osmolality-Calculated 276.6 CALC [facility] ([facility] CLASSIFICATION CHOLESTEROL FO R ADULTS CHILDREN/ADOLESCENTS* DESIRABLE: <200 MG/DL <170 MG/DL BORDER-LINE HIGH RISK: 200-239 MG/DL 170-199 MG/DL HIGH RISK: >240 MG/DL >200 MG/DL CLASS. FOR PRIMARY LDL CHOL PREVENTION: LDL CHOL-CHILD/ADOLESCENTS* DESIRABLE: <130 MG/DL <110 MG/DL BORDERLINE-HIGH RISK: 130-159 MG/DL 110-129 MG/DL HIGH RISK: >160 MG/DL >130 MG/DL *CHILDREN AND ADOLESCENTS REPRESENTS INDIVIDUALA AGED 2-19 YEARS EXCLUSIVE. CHRONIC KIDNEY DISEASE STAGING PER NKF: MALE [...] mL/min Normal 80 and above >32 mL/min NormalNORMAL RANGES Age WBC RBC HGB HCT MCV PLT Adult M 4.1-10.9 4.20-6.30 12.0-18.0 37.0-51.0 80-97 140-440 Adult F 4.1-10.9 4.04-5.48 12.0-18.0 37.0-51.0 80-97 140-440 0- 1 Yr 5.0-20.0 3.9-5.9 15-18 MV: 44 MV: [...] AUTOMATED BLOOD COUNTS AND DIFF.) APPENDIX B-3 Anion Gap 20 mmol/L [facility] CLASSIFICATION CHOLESTEROL FO R ADULTS CHILDREN/ADOLESCENTS* DESIRABLE: <200 MG/DL <170 MG/DL BORDER-LINE HIGH RISK: 200-239 MG/DL 170-199 MG/DL HIGH RISK: >240 MG/DL >200 MG/DL CLASS. FOR PRIMARY LDL CHOL PREVENTION: LDL CHOL-CHILD/ADOLESCENTS* DESIRABLE: <130 MG/DL <110 MG/DL BORDERLINE-HIGH RISK: 130-159 MG/DL 110-129 MG/DL HIGH RISK: >160 MG/DL >130 MG/DL *CHILDREN AND ADOLESCENTS REPRESENTS INDIVIDUALA AGED 2-19 YEARS EXCLUSIVE. CHRONIC KIDNEY DISEASE STAGING PER NKF: MALE [...] mL/min Normal 80 and above >32 mL/min NormalNORMAL RANGES Age WBC RBC HGB HCT MCV PLT Adult M 4.1-10.9 4.20-6.30 12.0-18.0 37.0-51.0 80-97 140-440 Adult F 4.1-10.9 4.04-5.48 12.0-18.0 37.0-51.0 80-97 140-440 0- 1 Yr 5.0-20.0 3.9-5.9 15-18 MV: 44 MV: [...] 5% LESS SOURCE FOR DATA: JOSE [employer] 1800 OPERATION MANUAL( AUTOMATED BLOOD COUNTS AND DIFF.) APPENDIX B-3 eGFR Non-Afr. Hungarian 63 # [facility] ([facility] CLASSIFICATION CHOLESTEROL FO R ADULTS CHILDREN/ADOLESCENTS* DESIRABLE: <200 MG/DL <170 MG/DL BORDER-LINE HIGH RISK: 200-239 MG/DL 170-199 MG/DL HIGH RISK: >240 MG/DL >200 MG/DL CLASS. FOR PRIMARY LDL CHOL PREVENTION: LDL CHOL-CHILD/ADOLESCENTS* DESIRABLE: <130 MG/DL <110 MG/DL BORDERLINE-HIGH RISK: 130-159 MG/DL 110-129 MG/DL HIGH RISK: >160 MG/DL >130 MG/DL *CHILDREN AND ADOLESCENTS REPRESENTS INDIVIDUALA AGED 2-19 YEARS EXCLUSIVE. CHRONIC KIDNEY DISEASE STAGING PER NKF: MALE [...] mL/min Normal 80 and above >32 mL/min NormalNORMAL RANGES Age WBC RBC HGB HCT MCV PLT Adult M 4.1-10.9 4.20-6.30 12.0-18.0 37.0-51.0 80-97 140-440 Adult F 4.1-10.9 4.04-5.48 12.0-18.0 37.0-51.0 80-97 140-440 0- 1 Yr 5.0-20.0 3.9-5.9 15-18 MV: 44 MV: 91 MV: 277 2-9 Yr. 6.0-17.0 3.8-5.4 11-13 MV: 37 MV: 78 MV: 300 10 Yrs. 5.0-13.0 3.8-5.4 12-15 MV: 39 MV: 80 MV: 250 NOTE: * FOR ADULT BLACK MALES AND FEMALES, NORMAL WBC IS 2.9-7.7 K/ML * FOR ADULT BLACK MALES AND FEMALES, NORMAL RBC,HGB, AND HCT IS 5% LESS SOURCE FOR DATA: [employer] 1800 OPERATION MANUAL( AUTOMATED BLOOD COUNTS AND DIFF.) APPENDIX B-3 eGFR 74 # [facility] ( [facility] CLASSIFICATION CHOLESTEROL FO R ADULTS CHILDREN/ADOLESCENTS* DESIRABLE: <200 MG/DL <170 MG/DL BORDER-LINE HIGH RISK: 200-239 MG/DL 170-199 MG/DL HIGH RISK: >240 MG/DL >200 MG/DL CLASS. FOR PRIMARY LDL CHOL PREVENTION: LDL CHOL-CHILD/ADOLESCENTS* DESIRABLE: <130 MG/DL <110 MG/DL BORDERLINE-HIGH RISK: 130-159 MG/DL 110-129 MG/DL HIGH RISK: >160 MG/DL >130 MG/DL *CHILDREN AND ADOLESCENTS REPRESENTS INDIVIDUALA AGED 2-19 YEARS EXCLUSIVE. CHRONIC KIDNEY DISEASE STAGING PER NKF: MALE [...] mL/min Normal 80 and above >32 mL/min NormalNORMAL RANGES Age WBC RBC HGB HCT MCV PLT Adult M 4.1-10.9 4.20-6.30 12.0-18.0 37.0-51.0 80-97 140-440 Adult F 4.1-10.9 4.04-5.48 12.0-18.0 37.0-51.0 80-97 140-440 0- 1 Yr 5.0-20.0 3.9-5.9 15-18 MV: 44 MV: 91 MV: 277 2-9 Yr. 6.0-17.0 3.8-5.4 11-13 MV: 37 MV: 78 MV: 300 10 Yrs. 5.0-13.0 3.8-5.4 12-15 MV: 39 MV: 80 MV: 250 NOTE: * FOR ADULT BLACK MALES AND FEMALES, NORMAL WBC IS 2.9-7.7 K/ML * FOR ADULT BLACK MALES AND FEMALES, NORMAL RBC,HGB, AND HCT IS 5% LESS SOURCE FOR DATA: [employer] 1800 OPERATION MANUAL( AUTOMATED BLOOD COUNTS AND DIFF.) APPENDIX B-3 ID Date Data Source [id number] 06/26/2019 01:32:00 PM EST [facility] ([facility] Name Value Range Interpretation Code Description Data Vicky rce(s) Supporting Document(s) WBC 8.1 10E3/uL 4.1-10.9 [facility] ([facility] CLASSIFICATION CHOLESTEROL FO R ADULTS CHILDREN/ADOLESCENTS* DESIRABLE: <200 MG/DL <170 MG/DL BORDER-LINE HIGH RISK: 200-239 MG/DL 170-199 MG/DL HIGH RISK: >240 MG/DL >200 MG/DL CLASS. FOR PRIMARY LDL CHOL PREVENTION: LDL CHOL-CHILD/ADOLESCENTS* DESIRABLE: <130 MG/DL <110 MG/DL BORDERLINE-HIGH RISK: 130-159 MG/DL 110-129 MG/DL HIGH RISK: >160 MG/DL >130 MG/DL *CHILDREN AND ADOLESCENTS REPRESENTS INDIVIDUALA AGED 2-19 YEARS EXCLUSIVE. CHRONIC KIDNEY DISEASE STAGING PER NKF: MALE [...] mL/min Normal 80 and above >32 mL/min NormalNORMAL RANGES Age WBC RBC HGB HCT MCV PLT Adult M 4.1-10.9 4.20-6.30 12.0-18.0 37.0-51.0 80-97 140-440 Adult F 4.1-10.9 4.04-5.48 12.0-18.0 37.0-51.0 80-97 140-440 0- 1 Yr 5.0-20.0 3.9-5.9 15-18 MV: 44 MV: 91 MV: 277 2-9 Yr. 6.0-17.0 3.8-5.4 11-13 MV: 37 MV: 78 MV: 300 10 Yrs. 5.0-13.0 3.8-5.4 12-15 MV: 39 MV: 80 MV: 250 NOTE: * FOR ADULT BLACK MALES AND FEMALES, NORMAL WBC IS 2.9-7.7 K/ML * FOR ADULT BLACK MALES AND FEMALES, NORMAL RBC,HGB, AND HCT IS 5% LESS SOURCE FOR DATA: [employer] DYN 1800 OPERATION MANUAL( AUTOMATED BLOOD COUNTS AND DIFF.) APPENDIX B-3 HGB 13.1 g/dL 12.0-18.0 [facility] ([facility] CLASSIFICATION CHOLESTEROL FO R ADULTS CHILDREN/ADOLESCENTS* DESIRABLE: <200 MG/DL <170 MG/DL BORDER-LINE HIGH RISK: 200-239 MG/DL 170-199 MG/DL HIGH RISK: >240 MG/DL >200 MG/DL CLASS. FOR PRIMARY LDL CHOL PREVENTION: LDL CHOL-CHILD/ADOLESCENTS* DESIRABLE: <130 MG/DL <110 MG/DL BORDERLINE-HIGH RISK: 130-159 MG/DL 110-129 MG/DL HIGH RISK: >160 MG/DL >130 MG/DL *CHILDREN AND ADOLESCENTS REPRESENTS INDIVIDUALA AGED 2-19 YEARS EXCLUSIVE. CHRONIC KIDNEY DISEASE STAGING PER NKF: MALE [...] mL/min Normal 80 and above >32 mL/min NormalNORMAL RANGES Age WBC RBC HGB HCT MCV PLT Adult M 4.1-10.9 4.20-6.30 12.0-18.0 37.0-51.0 80-97 140-440 Adult F 4.1-10.9 4.04-5.48 12.0-18.0 37.0-51.0 80-97 140-440 0- 1 Yr 5.0-20.0 3.9-5.9 15-18 MV: 44 MV: 91 MV: 277 2-9 Yr. 6.0-17.0 3.8-5.4 11-13 MV: 37 MV: 78 MV: 300 10 Yrs. 5.0-13.0 3.8-5.4 12-15 MV: 39 MV: 80 MV: 250 NOTE: * FOR ADULT BLACK MALES AND FEMALES, NORMAL WBC IS 2.9-7.7 K/ML * FOR ADULT BLACK MALES AND FEMALES, NORMAL RBC,HGB, AND HCT IS 5% LESS SOURCE FOR DATA: [employer] 1800 OPERATION MANUAL( AUTOMATED BLOOD COUNTS AND DIFF.) APPENDIX B-3 RBC 4.63 10E6/uL 4.20-6.30 [facility] ([facility] CLASSIFICATION CHOLESTEROL FO R ADULTS CHILDREN/ADOLESCENTS* DESIRABLE: <200 MG/DL <170 MG/DL BORDER-LINE HIGH RISK: 200-239 MG/DL 170-199 MG/DL HIGH RISK: >240 MG/DL >200 MG/DL CLASS. FOR PRIMARY LDL CHOL PREVENTION: LDL CHOL-CHILD/ADOLESCENTS* DESIRABLE: <130 MG/DL <110 MG/DL BORDERLINE-HIGH RISK: 130-159 MG/DL 110-129 MG/DL HIGH RISK: >160 MG/DL >130 MG/DL *CHILDREN AND ADOLESCENTS REPRESENTS INDIVIDUALA AGED 2-19 YEARS EXCLUSIVE. CHRONIC KIDNEY DISEASE STAGING PER NKF: MALE [...] mL/min Normal 80 and above >32 mL/min NormalNORMAL RANGES Age WBC RBC HGB HCT MCV PLT Adult M 4.1-10.9 4.20-6.30 12.0-18.0 37.0-51.0 80-97 140-440 Adult F 4.1-10.9 4.04-5.48 12.0-18.0 37.0-51.0 80-97 140-440 0- 1 Yr 5.0-20.0 3.9-5.9 15-18 MV: 44 MV: [...] AUTOMATED BLOOD COUNTS AND DIFF.) APPENDIX B-3 HCT 41.8 % 37.0-51.0 [facility] ([facility] CLASSIFICATION CHOLESTEROL FO R ADULTS CHILDREN/ADOLESCENTS* DESIRABLE: <200 MG/DL <170 MG/DL BORDER-LINE HIGH RISK: 200-239 MG/DL 170-199 MG/DL HIGH RISK: >240 MG/DL >200 MG/DL CLASS. FOR PRIMARY LDL CHOL PREVENTION: LDL CHOL-CHILD/ADOLESCENTS* DESIRABLE: <130 MG/DL <110 MG/DL BORDERLINE-HIGH RISK: 130-159 MG/DL 110-129 MG/DL HIGH RISK: >160 MG/DL >130 MG/DL *CHILDREN AND ADOLESCENTS REPRESENTS INDIVIDUALA AGED 2-19 YEARS EXCLUSIVE. CHRONIC KIDNEY DISEASE STAGING PER NKF: MALE [...] mL/min Normal 80 and above >32 mL/min NormalNORMAL RANGES Age WBC RBC HGB HCT MCV PLT Adult M 4.1-10.9 4.20-6.30 12.0-18.0 37.0-51.0 80-97 140-440 Adult F 4.1-10.9 4.04-5.48 12.0-18.0 37.0-51.0 80-97 140-440 0- 1 Yr 5.0-20.0 3.9-5.9 15-18 MV: 44 MV: [...] AUTOMATED BLOOD COUNTS AND DIFF.) APPENDIX B-3 MCH 28.3 pg 26.0-32.0 [facility] CLASSIFICATION CHOLESTEROL FO R ADULTS CHILDREN/ADOLESCENTS* DESIRABLE: <200 MG/DL <170 MG/DL BORDER-LINE HIGH RISK: 200-239 MG/DL 170-199 MG/DL HIGH RISK: >240 MG/DL >200 MG/DL CLASS. FOR PRIMARY LDL CHOL PREVENTION: LDL CHOL-CHILD/ADOLESCENTS* DESIRABLE: <130 MG/DL <110 MG/DL BORDERLINE-HIGH RISK: 130-159 MG/DL 110-129 MG/DL HIGH RISK: >160 MG/DL >130 MG/DL *CHILDREN AND ADOLESCENTS REPRESENTS INDIVIDUALA AGED 2-19 YEARS EXCLUSIVE. CHRONIC KIDNEY DISEASE STAGING PER NKF: MALE [...] mL/min Normal 80 and above >32 mL/min NormalNORMAL RANGES Age WBC RBC HGB HCT MCV PLT Adult M 4.1-10.9 4.20-6.30 12.0-18.0 37.0-51.0 80-97 140-440 Adult F 4.1-10.9 4.04-5.48 12.0-18.0 37.0-51.0 80-97 140-440 0- 1 Yr 5.0-20.0 3.9-5.9 15-18 MV: 44 MV: 91 MV: 277 2-9 Yr. 6.0-17.0 3.8-5.4 11-13 MV: 37 MV: 78 MV: 300 10 Yrs. 5.0-13.0 3.8-5.4 12-15 MV: 39 MV: 80 MV: 250 NOTE: * FOR ADULT BLACK MALES AND FEMALES, NORMAL WBC IS 2.9-7.7 K/ML * FOR ADULT BLACK MALES AND FEMALES, NORMAL RBC,HGB, AND HCT IS 5% LESS SOURCE FOR DATA: [employer] DYN 1800 OPERATION MANUAL( AUTOMATED BLOOD COUNTS AND DIFF.) APPENDIX B-3 MCHC 31.3 g/dL 31.0-36.0 [facility] ([facility] CLASSIFICATION CHOLESTEROL FO R ADULTS CHILDREN/ADOLESCENTS* DESIRABLE: <200 MG/DL <170 MG/DL BORDER-LINE HIGH RISK: 200-239 MG/DL 170-199 MG/DL HIGH RISK: >240 MG/DL >200 MG/DL CLASS. FOR PRIMARY LDL CHOL PREVENTION: LDL CHOL-CHILD/ADOLESCENTS* DESIRABLE: <130 MG/DL <110 MG/DL BORDERLINE-HIGH RISK: 130-159 MG/DL 110-129 MG/DL HIGH RISK: >160 MG/DL >130 MG/DL *CHILDREN AND ADOLESCENTS REPRESENTS INDIVIDUALA AGED 2-19 YEARS EXCLUSIVE. CHRONIC KIDNEY DISEASE STAGING PER NKF: MALE [...] mL/min Normal 80 and above >32 mL/min NormalNORMAL RANGES Age WBC RBC HGB HCT MCV PLT Adult M 4.1-10.9 4.20-6.30 12.0-18.0 37.0-51.0 80-97 140-440 Adult F 4.1-10.9 4.04-5.48 12.0-18.0 37.0-51.0 80-97 140-440 0- 1 Yr 5.0-20.0 3.9-5.9 15-18 MV: 44 MV: [...] AUTOMATED BLOOD COUNTS AND DIFF.) APPENDIX B-3 MCV 90.3 fL 80.0-97.0 [facility] ([facility] CLASSIFICATION CHOLESTEROL FO R ADULTS CHILDREN/ADOLESCENTS* DESIRABLE: <200 MG/DL <170 MG/DL BORDER-LINE HIGH RISK: 200-239 MG/DL 170-199 MG/DL HIGH RISK: >240 MG/DL >200 MG/DL CLASS. FOR PRIMARY LDL CHOL PREVENTION: LDL CHOL-CHILD/ADOLESCENTS* DESIRABLE: <130 MG/DL <110 MG/DL BORDERLINE-HIGH RISK: 130-159 MG/DL 110-129 MG/DL HIGH RISK: >160 MG/DL >130 MG/DL *CHILDREN AND ADOLESCENTS REPRESENTS INDIVIDUALA AGED 2-19 YEARS EXCLUSIVE. CHRONIC KIDNEY DISEASE STAGING PER NKF: MALE [...] mL/min Normal 80 and above >32 mL/min NormalNORMAL RANGES Age WBC RBC HGB HCT MCV PLT Adult M 4.1-10.9 4.20-6.30 12.0-18.0 37.0-51.0 80-97 140-440 Adult F 4.1-10.9 4.04-5.48 12.0-18.0 37.0-51.0 80-97 140-440 0- 1 Yr 5.0-20.0 3.9-5.9 15-18 MV: 44 MV: 91 MV: 277 2-9 Yr. 6.0-17.0 3.8-5.4 11-13 MV: 37 MV: 78 MV: 300 10 Yrs. 5.0-13.0 3.8-5.4 12-15 MV: 39 MV: 80 MV: 250 NOTE: * FOR ADULT BLACK MALES AND FEMALES, NORMAL WBC IS 2.9-7.7 K/ML * FOR ADULT BLACK MALES AND FEMALES, NORMAL RBC,HGB, AND HCT IS 5% LESS SOURCE FOR DATA: [employer] 1800 OPERATION MANUAL( AUTOMATED BLOOD COUNTS AND DIFF.) APPENDIX B-3 PLT 281 10E3/uL 140-440 [facility] ([facility] CLASSIFICATION CHOLESTEROL FO R ADULTS CHILDREN/ADOLESCENTS* DESIRABLE: <200 MG/DL <170 MG/DL BORDER-LINE HIGH RISK: 200-239 MG/DL 170-199 MG/DL HIGH RISK: >240 MG/DL >200 MG/DL CLASS. FOR PRIMARY LDL CHOL PREVENTION: LDL CHOL-CHILD/ADOLESCENTS* DESIRABLE: <130 MG/DL <110 MG/DL BORDERLINE-HIGH RISK: 130-159 MG/DL 110-129 MG/DL HIGH RISK: >160 MG/DL >130 MG/DL *CHILDREN AND ADOLESCENTS REPRESENTS INDIVIDUALA AGED 2-19 YEARS EXCLUSIVE. CHRONIC KIDNEY DISEASE STAGING PER NKF: MALE [...] mL/min Normal 80 and above >32 mL/min NormalNORMAL RANGES Age WBC RBC HGB HCT MCV PLT Adult M 4.1-10.9 4.20-6.30 12.0-18.0 37.0-51.0 80-97 140-440 Adult F 4.1-10.9 4.04-5.48 12.0-18.0 37.0-51.0 80-97 140-440 0- 1 Yr 5.0-20.0 3.9-5.9 15-18 MV: 44 MV: 91 MV: 277 2-9 Yr. 6.0-17.0 3.8-5.4 11-13 MV: 37 MV: 78 MV: 300 10 Yrs. 5.0-13.0 3.8-5.4 12-15 MV: 39 MV: 80 MV: 250 NOTE: * FOR ADULT BLACK MALES AND FEMALES, NORMAL WBC IS 2.9-7.7 K/ML * FOR ADULT BLACK MALES AND FEMALES, NORMAL RBC,HGB, AND HCT IS 5% LESS SOURCE FOR DATA: [employer] 1800 OPERATION MANUAL( AUTOMATED BLOOD COUNTS AND DIFF.) APPENDIX B-3 RDW-CV 15.4 % 11.5-14.5 Above high normal [facility] ([facility] CLASSIFICATION CHOLESTEROL FO R ADULTS CHILDREN/ADOLESCENTS* DESIRABLE: <200 MG/DL <170 MG/DL BORDER-LINE HIGH RISK: 200-239 MG/DL 170-199 MG/DL HIGH RISK: >240 MG/DL >200 MG/DL CLASS. FOR PRIMARY LDL CHOL PREVENTION: LDL CHOL-CHILD/ADOLESCENTS* DESIRABLE: <130 MG/DL <110 MG/DL BORDERLINE-HIGH RISK: 130-159 MG/DL 110-129 MG/DL HIGH RISK: >160 MG/DL >130 MG/DL *CHILDREN AND ADOLESCENTS REPRESENTS INDIVIDUALA AGED 2-19 YEARS EXCLUSIVE. CHRONIC KIDNEY DISEASE STAGING PER NKF: MALE [...] mL/min Normal 80 and above >32 mL/min NormalNORMAL RANGES Age WBC RBC HGB HCT MCV PLT Adult M 4.1-10.9 4.20-6.30 12.0-18.0 37.0-51.0 80-97 140-440 Adult F 4.1-10.9 4.04-5.48 12.0-18.0 37.0-51.0 80-97 140-440 0- 1 Yr 5.0-20.0 3.9-5.9 15-18 MV: 44 MV: [...] AUTOMATED BLOOD COUNTS AND DIFF.) APPENDIX B-3 MXD% 10.3 % 0.1-24.0 [facility] ([facility] CLASSIFICATION CHOLESTEROL FO R ADULTS CHILDREN/ADOLESCENTS* DESIRABLE: <200 MG/DL <170 MG/DL BORDER-LINE HIGH RISK: 200-239 MG/DL 170-199 MG/DL HIGH RISK: >240 MG/DL >200 MG/DL CLASS. FOR PRIMARY LDL CHOL PREVENTION: LDL CHOL-CHILD/ADOLESCENTS* DESIRABLE: <130 MG/DL <110 MG/DL BORDERLINE-HIGH RISK: 130-159 MG/DL 110-129 MG/DL HIGH RISK: >160 MG/DL >130 MG/DL *CHILDREN AND ADOLESCENTS REPRESENTS INDIVIDUALA AGED 2-19 YEARS EXCLUSIVE. CHRONIC KIDNEY DISEASE STAGING PER NKF: MALE [...] mL/min Normal 80 and above >32 mL/min NormalNORMAL RANGES Age WBC RBC HGB HCT MCV PLT Adult M 4.1-10.9 4.20-6.30 12.0-18.0 37.0-51.0 80-97 140-440 Adult F 4.1-10.9 4.04-5.48 12.0-18.0 37.0-51.0 80-97 140-440 0- 1 Yr 5.0-20.0 3.9-5.9 15-18 MV: 44 MV: 91 MV: 277 2-9 Yr. 6.0-17.0 3.8-5.4 11-13 MV: 37 MV: 78 MV: 300 10 Yrs. 5.0-13.0 3.8-5.4 12-15 MV: 39 MV: 80 MV: 250 NOTE: * FOR ADULT BLACK MALES AND FEMALES, NORMAL WBC IS 2.9-7.7 K/ML * FOR ADULT BLACK MALES AND FEMALES, NORMAL RBC,HGB, AND HCT IS 5% LESS SOURCE FOR DATA: [employer] 1800 OPERATION MANUAL( AUTOMATED BLOOD COUNTS AND DIFF.) APPENDIX B-3 Neut% 73.1 % 37.0-92.0 [facility] ([facility] CLASSIFICATION CHOLESTEROL FO R ADULTS CHILDREN/ADOLESCENTS* DESIRABLE: <200 MG/DL <170 MG/DL BORDER-LINE HIGH RISK: 200-239 MG/DL 170-199 MG/DL HIGH RISK: >240 MG/DL >200 MG/DL CLASS. FOR PRIMARY LDL CHOL PREVENTION: LDL CHOL-CHILD/ADOLESCENTS* DESIRABLE: <130 MG/DL <110 MG/DL BORDERLINE-HIGH RISK: 130-159 MG/DL 110-129 MG/DL HIGH RISK: >160 MG/DL >130 MG/DL *CHILDREN AND ADOLESCENTS REPRESENTS INDIVIDUALA AGED 2-19 YEARS EXCLUSIVE. CHRONIC KIDNEY DISEASE STAGING PER NKF: MALE [...] mL/min Normal 80 and above >32 mL/min NormalNORMAL RANGES Age WBC RBC HGB HCT MCV PLT Adult M 4.1-10.9 4.20-6.30 12.0-18.0 37.0-51.0 80-97 140-440 Adult F 4.1-10.9 4.04-5.48 12.0-18.0 37.0-51.0 80-97 140-440 0- 1 Yr 5.0-20.0 3.9-5.9 15-18 MV: 44 MV: [...] AUTOMATED BLOOD COUNTS AND DIFF.) APPENDIX B-3 Lym% 16.6 % 10.0-58.5 [facility] ([facility] CLASSIFICATION CHOLESTEROL FO R ADULTS CHILDREN/ADOLESCENTS* DESIRABLE: <200 MG/DL <170 MG/DL BORDER-LINE HIGH RISK: 200-239 MG/DL 170-199 MG/DL HIGH RISK: >240 MG/DL >200 MG/DL CLASS. FOR PRIMARY LDL CHOL PREVENTION: LDL CHOL-CHILD/ADOLESCENTS* DESIRABLE: <130 MG/DL <110 MG/DL BORDERLINE-HIGH RISK: 130-159 MG/DL 110-129 MG/DL HIGH RISK: >160 MG/DL >130 MG/DL *CHILDREN AND ADOLESCENTS REPRESENTS INDIVIDUALA AGED 2-19 YEARS EXCLUSIVE. CHRONIC KIDNEY DISEASE STAGING PER NKF: MALE [...] mL/min Normal 80 and above >32 mL/min NormalNORMAL RANGES Age WBC RBC HGB HCT MCV PLT Adult M 4.1-10.9 4.20-6.30 12.0-18.0 37.0-51.0 80-97 140-440 Adult F 4.1-10.9 4.04-5.48 12.0-18.0 37.0-51.0 80-97 140-440 0- 1 Yr 5.0-20.0 3.9-5.9 15-18 MV: 44 MV: 91 MV: 277 2-9 Yr. 6.0-17.0 3.8-5.4 11-13 MV: 37 MV: 78 MV: 300 10 Yrs. 5.0-13.0 3.8-5.4 12-15 MV: 39 MV: 80 MV: 250 NOTE: * FOR ADULT BLACK MALES AND FEMALES, NORMAL WBC IS 2.9-7.7 K/ML * FOR ADULT BLACK MALES AND FEMALES, NORMAL RBC,HGB, AND HCT IS 5% LESS SOURCE FOR DATA: [employer] DYN 1800 OPERATION MANUAL( AUTOMATED BLOOD COUNTS AND DIFF.) APPENDIX B-3 Lym# 1.3 10E3/uL 0.6-4.1 [facility] ([facility] CLASSIFICATION CHOLESTEROL FO R ADULTS CHILDREN/ADOLESCENTS* DESIRABLE: <200 MG/DL <170 MG/DL BORDER-LINE HIGH RISK: 200-239 MG/DL 170-199 MG/DL HIGH RISK: >240 MG/DL >200 MG/DL CLASS. FOR PRIMARY LDL CHOL PREVENTION: LDL CHOL-CHILD/ADOLESCENTS* DESIRABLE: <130 MG/DL <110 MG/DL BORDERLINE-HIGH RISK: 130-159 MG/DL 110-129 MG/DL HIGH RISK: >160 MG/DL >130 MG/DL *CHILDREN AND ADOLESCENTS REPRESENTS INDIVIDUALA AGED 2-19 YEARS EXCLUSIVE. CHRONIC KIDNEY DISEASE STAGING PER NKF: MALE [...] mL/min Normal 80 and above >32 mL/min NormalNORMAL RANGES Age WBC RBC HGB HCT MCV PLT Adult M 4.1-10.9 4.20-6.30 12.0-18.0 37.0-51.0 80-97 140-440 Adult F 4.1-10.9 4.04-5.48 12.0-18.0 37.0-51.0 80-97 140-440 0- 1 Yr 5.0-20.0 3.9-5.9 15-18 MV: 44 MV: 91 MV: 277 2-9 Yr. 6.0-17.0 3.8-5.4 11-13 MV: 37 MV: 78 MV: 300 10 Yrs. 5.0-13.0 3.8-5.4 12-15 MV: 39 MV: 80 MV: 250 NOTE: * FOR ADULT BLACK MALES AND FEMALES, NORMAL WBC IS 2.9-7.7 K/ML * FOR ADULT BLACK MALES AND FEMALES, NORMAL RBC,HGB, AND HCT IS 5% LESS SOURCE FOR DATA: [employer] 1800 OPERATION MANUAL( AUTOMATED BLOOD COUNTS AND DIFF.) APPENDIX B-3 MXD# 0.8 10E3/uL 0.0-1.8 [facility] ([facility] CLASSIFICATION CHOLESTEROL FO R ADULTS CHILDREN/ADOLESCENTS* DESIRABLE: <200 MG/DL <170 MG/DL BORDER-LINE HIGH RISK: 200-239 MG/DL 170-199 MG/DL HIGH RISK: >240 MG/DL >200 MG/DL CLASS. FOR PRIMARY LDL CHOL PREVENTION: LDL CHOL-CHILD/ADOLESCENTS* DESIRABLE: <130 MG/DL <110 MG/DL BORDERLINE-HIGH RISK: 130-159 MG/DL 110-129 MG/DL HIGH RISK: >160 MG/DL >130 MG/DL *CHILDREN AND ADOLESCENTS REPRESENTS INDIVIDUALA AGED 2-19 YEARS EXCLUSIVE. CHRONIC KIDNEY DISEASE STAGING PER NKF: MALE [...] mL/min Normal 80 and above >32 mL/min NormalNORMAL RANGES Age WBC RBC HGB HCT MCV PLT Adult M 4.1-10.9 4.20-6.30 12.0-18.0 37.0-51.0 80-97 140-440 Adult F 4.1-10.9 4.04-5.48 12.0-18.0 37.0-51.0 80-97 140-440 0- 1 Yr 5.0-20.0 3.9-5.9 15-18 MV: 44 MV: 91 MV: 277 2-9 Yr. 6.0-17.0 3.8-5.4 11-13 MV: 37 MV: 78 MV: 300 10 Yrs. 5.0-13.0 3.8-5.4 12-15 MV: 39 MV: 80 MV: 250 NOTE: * FOR ADULT BLACK MALES AND FEMALES, NORMAL WBC IS 2.9-7.7 K/ML * FOR ADULT BLACK MALES AND FEMALES, NORMAL RBC,HGB, AND HCT IS 5% LESS SOURCE FOR DATA: [employer] 1800 OPERATION MANUAL( AUTOMATED BLOOD COUNTS AND DIFF.) APPENDIX B-3 Neut# 6.0 % 2.0-7.8 [facility] ([facility] CLASSIFICATION CHOLESTEROL FO R ADULTS CHILDREN/ADOLESCENTS* DESIRABLE: <200 MG/DL <170 MG/DL BORDER-LINE HIGH RISK: 200-239 MG/DL 170-199 MG/DL HIGH RISK: >240 MG/DL >200 MG/DL CLASS. FOR PRIMARY LDL CHOL PREVENTION: LDL CHOL-CHILD/ADOLESCENTS* DESIRABLE: <130 MG/DL <110 MG/DL BORDERLINE-HIGH RISK: 130-159 MG/DL 110-129 MG/DL HIGH RISK: >160 MG/DL >130 MG/DL *CHILDREN AND ADOLESCENTS REPRESENTS INDIVIDUALA AGED 2-19 YEARS EXCLUSIVE. CHRONIC KIDNEY DISEASE STAGING PER NKF: MALE [...] mL/min Normal 80 and above >32 mL/min NormalNORMAL RANGES Age WBC RBC HGB HCT MCV PLT Adult M 4.1-10.9 4.20-6.30 12.0-18.0 37.0-51.0 80-97 140-440 Adult F 4.1-10.9 4.04-5.48 12.0-18.0 37.0-51.0 80-97 140-440 0- 1 Yr 5.0-20.0 3.9-5.9 15-18 MV: 44 MV: 91 MV: 277 2-9 Yr. 6.0-17.0 3.8-5.4 11-13 MV: 37 MV: 78 MV: 300 10 Yrs. 5.0-13.0 3.8-5.4 12-15 MV: 39 MV: 80 MV: 250 NOTE: * FOR ADULT BLACK MALES AND FEMALES, NORMAL WBC IS 2.9-7.7 K/ML * FOR ADULT BLACK MALES AND FEMALES, NORMAL RBC,HGB, AND HCT IS 5% LESS SOURCE FOR DATA: [employer] 1800 OPERATION MANUAL( AUTOMATED BLOOD COUNTS AND DIFF.) APPENDIX B-3 MPV 11.0 fL 9.0-13.0 [facility] CLASSIFICATION CHOLESTEROL FO R ADULTS CHILDREN/ADOLESCENTS* DESIRABLE: <200 MG/DL <170 MG/DL BORDER-LINE HIGH RISK: 200-239 MG/DL 170-199 MG/DL HIGH RISK: >240 MG/DL >200 MG/DL CLASS. FOR PRIMARY LDL CHOL PREVENTION: LDL CHOL-CHILD/ADOLESCENTS* DESIRABLE: <130 MG/DL <110 MG/DL BORDERLINE-HIGH RISK: 130-159 MG/DL 110-129 MG/DL HIGH RISK: >160 MG/DL >130 MG/DL *CHILDREN AND ADOLESCENTS REPRESENTS INDIVIDUALA AGED 2-19 YEARS EXCLUSIVE. CHRONIC KIDNEY DISEASE STAGING PER NKF: MALE [...] mL/min Normal 80 and above >32 mL/min NormalNORMAL RANGES Age WBC RBC HGB HCT MCV PLT Adult M 4.1-10.9 4.20-6.30 12.0-18.0 37.0-51.0 80-97 140-440 Adult F 4.1-10.9 4.04-5.48 12.0-18.0 37.0-51.0 80-97 140-440 0- 1 Yr 5.0-20.0 3.9-5.9 15-18 MV: 44 MV: 91 MV: 277 2-9 Yr. 6.0-17.0 3.8-5.4 11-13 MV: 37 MV: 78 MV: 300 10 Yrs. 5.0-13.0 3.8-5.4 12-15 MV: 39 MV: 80 MV: 250 NOTE: * FOR ADULT BLACK MALES AND FEMALES, NORMAL WBC IS 2.9-7.7 K/ML * FOR ADULT BLACK MALES AND FEMALES, NORMAL RBC,HGB, AND HCT IS 5% LESS SOURCE FOR DATA: [employer] 1800 OPERATION MANUAL( AUTOMATED BLOOD COUNTS AND DIFF.) APPENDIX B-3 ID Date Data Source [id number] 06/26/2019 01:31:00 PM EST [facility] ([facility] Name Value Range Interpretation Code Description Data Vicky rce(s) Supporting Document(s) Thyrotropin [Units/volume] in Serum or Plasma Laboratory test re sult 0.60-4.8 Below low normal [facility] ([facility] ) Below the Measuring Range ID Date Data Source [id number] 06/07/2019 02:03:00 PM EST [facility] ([facility]) Name Value Range Interpretation Code Description Data Vicky rce(s) Supporting Document(s) Thyroid Stimulating Hormone 0.032 uIU/ML 0.358-3.740 [facility] ([facility]) Free T4 0.98 ng/dL 0.76-1.46 [facility] ([facility]) Procedure Social History Code Duration Value Status Description Data Source(s ) Alcohol intake 06/02/2020 12:00:00 AM EST Ex-drinker (finding) comp leted Ex- drinker (finding) [facility] Tobacco use and exposure 06/02/2020 12:00:00 AM EST Never used co mpleted Never used [facility] Smoking 06/02/2020 12:00:00 AM EST Former smoker completed Former smoker [facility] Smoking 05/05/2020 12:00:00 AM EST Patient is a former smoker completed Patient is a former smoker [facility] ([facility]) Vital Signs ID Date Data Source UNK Name Value Range Interpretation Code Description Data Source(s) Oxygen saturation in Arterial blood by Pulse oximetry 96 % 96 % [facility] ([facility] Body mass index (BMI) [Ratio] 35.9 kg/m2 35.9 k g/m2 [facility] ([facility] [place] body weight 100 [lb_av] 100 [lb_av] MEDEN T ([facility] Body weight 172.00 [lb_av] 172.00 [lb_av] [facility] T ([facility] Body height 58 [in_i] 58 [in_i] [facility] ([facility] 4'10" Respiratory rate 18 /min 18 /min [facility] ( [facility] Heart rate 130 /min 130 /min [facility] ([facility] Body temperature 98.0 [degF] 98.0 [degF] [facility] ([facility] Diastolic blood pressure 96 mm[Hg] 96 mm[Hg] [facility] ([facility] Systolic blood pressure 148 mm[Hg] 148 mm[Hg] M EDENT ([facility] Oxygen saturation in Arterial blood by Pulse oximetry 92 % 92 % [facility] ([facility]) Body mass index (BMI) [Ratio] 36.1 kg/m2 36.1 k g/m2 [facility] ([facility]) Body weight 167.00 [lb_av] 167.00 [lb_av] MED[facility] T ([facility]) Body height 57 [in_i] 57 [in_i] [facility] ([facility]) 4'9" Body temperature 97.0 [degF] 97.0 [degF] [facility] ([facility]) Heart rate 82 /min 82 /min [facility] ([facility]) Diastolic blood pressure 70 mm[Hg] 70 mm[Hg] [facility] ([facility]) Systolic blood pressure 122 mm[Hg] 122 mm[Hg] M EDENT ([facility]) Body mass index (BMI) [Ratio] 34.7 kg/m2 34.7 k g/m2 [facility] ([facility] [place] body weight 100 [lb_av] 100 [lb_av] [facility] T ([facility] Body weight 166.00 [lb_av] 166.00 [lb_av] [facility] T ([facility] Body height 58 [in_i] 58 [in_i] [facility] ([facility] 4'10" Respiratory rate 18 /min 18 /min [facility] ( [facility] Heart rate 70 /min 70 /min [facility] ([facility] Body temperature 97.6 [degF] 97.6 [degF] [facility] ([facility] Diastolic blood pressure 80 mm[Hg] 80 mm[Hg] [facility] ([facility] Systolic blood pressure 122 mm[Hg] 122 mm[Hg] [facility] Body surface area Derived from formula 1.69 m2 1.69 m2 [facility] ([facility], ) Body weight 75.808 kg 75.808 kg [facility] ([facility], ) [place] body weight 100 [lb_av] 100 [lb_av] MED[facility] T ([facility], ) Body mass index (BMI) [Ratio] 34.9 kg/m2 34.9 k g/m2 [facility] Body weight 167.12 [lb_av] 167.12 [lb_av] MED[facility] T ([facility], ) Body height 58 [in_i] 58 [in_i] [facility] ([facility]) 4'10" Diastolic blood pressure 82 mm[Hg] 82 mm[Hg] [facility], [facility] Systolic blood pressure 132 mm[Hg] 132 mm[Hg] M EDENT ([facility], ) Oxygen saturation in Arterial blood by Pulse oximetry 95 % 95 % [facility] ([facility] Body mass index (BMI) [Ratio] 34.7 kg/m2 34.7 k g/m2 [facility] ([facility] [place] body weight 100 [lb_av] 100 [lb_av] [facility] T ([facility] Body weight 166.00 [lb_av] 166.00 [lb_av] [facility] T ([facility] Body height 58 [in_i] 58 [in_i] [facility] ([facility] 4'10" Respiratory rate 20 /min 20 /min [facility] ( [facility] Heart rate 96 /min 96 /min [facility] ([facility] Body temperature 98.0 [degF] 98.0 [degF] [facility] ([facility] Diastolic blood pressure 86 mm[Hg] 86 mm[Hg] [facility] ([facility] Systolic blood pressure 112 mm[Hg] 112 mm[Hg] M EDREI ([facility] Oxygen saturation in Arterial blood by Pulse oximetry 95 % 95 % [facility] ([facility] Body mass index (BMI) [Ratio] 35.3 kg/m2 35.3 k g/m2 [facility] ([facility] [place] body weight 100 [lb_av] 100 [lb_av] MED[facility] T ([facility] Body weight 169.00 [lb_av] 169.00 [lb_av] [facility] T ([facility] Body height 58 [in_i] 58 [in_i] [facility] ([facility] 4'10" Respiratory rate 18 /min 18 /min [facility] ( [facility] Heart rate 80 /min 80 /min [facility] ([facility] Body temperature 97.9 [degF] 97.9 [degF] [facility] ([facility] Diastolic blood pressure 74 mm[Hg] 74 mm[Hg] [facility] ([facility] Systolic blood pressure 118 mm[Hg] 118 mm[Hg] [facility] Body surface area Derived from formula 1.71 m2 1.71 m2 [facility] ([facility]) Body weight 78.019 kg 78.019 kg [facility] ([facility]) [place] body weight 100 [lb_av] 100 [lb_av] MED[facility] T ([facility]) Body mass index (BMI) [Ratio] 35.9 kg/m2 35.9 k g/m2 [facility] ([facility]) Body weight 172.00 [lb_av] 172.00 [lb_av] MED[facility] T ([facility]) Body height 58 [in_i] 58 [in_i] [facility] ([facility]) 4'10" Diastolic blood pressure 80 mm[Hg] 80 mm[Hg] [facility] ([facility]) Systolic blood pressure 130 mm[Hg] 130 mm[Hg] [facility] Body height 58 [in_i] 58 [in_i] [facility] ([facility] 4'10" Respiratory rate 16 /min 16 /min [facility] ( [facility] Heart rate 70 /min 70 /[facility] Body temperature 97.6 [degF] 97.6 [degF] [facility] ([facility] Diastolic blood pressure 82 mm[Hg] 82 mm[Hg] [facility] ([facility] Systolic blood pressure 128 mm[Hg] 128 mm[Hg] [facility] Oxygen saturation in Arterial blood by Pulse oximetry 92 % 92 % [facility] ([facility] Body mass index (BMI) [Ratio] 35.3 kg/m2 35.3 k g/m2 [facility] ([facility] [place] body weight 100 [lb_av] 100 [lb_av] MED[facility] T ([facility] Body weight 169.00 [lb_av] 169.00 [lb_av] [facility] T ([facility] Body weight 78.019 kg 78.019 kg [facility] [place] body weight 100 [lb_av] 100 [lb_av] [facility] T ([facility]) Body mass index (BMI) [Ratio] 35.9 kg/m2 35.9 k g/m2 [facility] ([facility]) Body weight 172.00 [lb_av] 172.00 [lb_av] [facility] T ([facility]) Body height 58 [in_i] 58 [in_i] [facility] ([facility]) 4'10" Diastolic blood pressure 80 mm[Hg] 80 mm[Hg] [facility] ([facility]) Systolic blood pressure 120 mm[Hg] 120 mm[Hg] M EDENT ([facility]) Oxygen saturation in Arterial blood by Pulse oximetry 99 % 99 % [facility] ([facility]) Body mass index (BMI) [Ratio] 36.7 kg/m2 36.7 k g/m2 [facility] ([facility]) Body weight 169.50 [lb_av] 169.50 [lb_av] MED[facility] T ([facility]) Body height 57 [in_i] 57 [in_i] [facility] 4'9" Body temperature 96.6 [degF] 96.6 [degF] [facility] Heart rate 76 /min 76 /min [facility] ([facility]) Diastolic blood pressure 74 mm[Hg] 74 mm[Hg] [facility] ([facility]) Systolic blood pressure 124 mm[Hg] 124 mm[Hg] M EDENT ([facility]) Oxygen saturation in Arterial blood by Pulse oximetry 90 % 90 % [facility] Body mass index (BMI) [Ratio] 35.7 kg/m2 35.7 k g/m2 [facility] ([facility] [place] body weight 100 [lb_av] 100 [lb_av] MED[facility] T ([facility] Body weight 171.00 [lb_av] 171.00 [lb_av] [facility] T ([facility] Body height 58 [in_i] 58 [in_i] [facility] 4'10" Respiratory rate 20 /min 20 /min [facility] ( [facility] Heart rate 62 /min 62 /min [facility] ([facility] Body temperature 98.2 [degF] 98.2 [degF] [facility] ([facility] Diastolic blood pressure 82 mm[Hg] 82 mm[Hg] [facility] ([facility] Systolic blood pressure 126 mm[Hg] 126 mm[Hg] M EDENT ([facility] [place] body weight 100 [lb_av] 100 [lb_av] [facility] T ([facility] Body weight 174.00 [lb_av] 174.00 [lb_av] [facility] T ([facility] Body height 58 [in_i] 58 [in_i] [facility] 4'10" Respiratory rate 16 /min 16 /min [facility] ( [facility] Heart rate 94 /min 94 /min [facility] ([facility] Body temperature 98.9 [degF] 98.9 [degF] [facility] ([facility] Diastolic blood pressure 88 mm[Hg] 88 mm[Hg] [facility] ([facility] Systolic blood pressure 138 mm[Hg] 138 mm[Hg] M EDENT ([facility] Oxygen saturation in Arterial blood by Pulse oximetry 93 % 93 % [facility] ([facility] Body mass index (BMI) [Ratio] 36.4 kg/m2 36.4 k g/m2 [facility] ([facility] Oxygen saturation in Arterial blood by Pulse oximetry 98 % 98 % [facility] ([facility]) Body mass index (BMI) [Ratio] 38.4 kg/m2 38.4 k g/m2 [facility] ([facility]) Body weight 177.50 [lb_av] 177.50 [lb_av] [facility] T ([facility] Body height 57 [in_i] 57 [in_i] [facility] ([facility]) 4'9" Heart rate 61 /min 61 /min [facility] ([facility]) Diastolic blood pressure 84 mm[Hg] 84 mm[Hg] [facility] ([facility] Systolic blood pressure 136 mm[Hg] 136 mm[Hg] M EDENT ([facility]) Oxygen saturation in Arterial blood by Pulse oximetry 96 % 96 % [facility] ([facility]) Body mass index (BMI) [Ratio] 37.0 kg/m2 37.0 k g/m2 [facility] ([facility] Body weight 171.00 [lb_av] 171.00 [lb_av] MED[facility] T ([facility]) Body height 57 [in_i] 57 [in_i] [facility] ([facility]) 4'9" Heart rate 80 /min 80 /min [facility] ([facility] Diastolic blood pressure 76 mm[Hg] 76 mm[Hg] [facility] ([facility] Systolic blood pressure 118 mm[Hg] 118 mm[Hg] M EDENT ([facility] Oxygen saturation in Arterial blood by Pulse oximetry 95 % 95 % [facility] ([facility] Body mass index (BMI) [Ratio] 34.9 kg/m2 34.9 k g/m2 [facility] ([facility] [place] body weight 100 [lb_av] 100 [lb_av] [facility] T ([facility] Body weight 167.00 [lb_av] 167.00 [lb_av] [facility] T ([facility] Body height 58 [in_i] 58 [in_i] [facility] ([facility] 4'10" Respiratory rate 14 /min 14 /min [facility] ( [facility] Heart rate 54 /min 54 /min [facility] ([facility] Body temperature 99.2 [degF] 99.2 [degF] [facility] ([facility] Diastolic blood pressure 78 mm[Hg] 78 mm[Hg] [facility] ([facility] Systolic blood pressure 114 mm[Hg] 114 mm[Hg] M EDENT ([facility] Oxygen saturation in Arterial blood by Pulse oximetry 98 % 98 % [facility] ([facility]) Body mass index (BMI) [Ratio] 36.9 kg/m2 36.9 k g/m2 [facility] ([facility]) Body weight 170.38 [lb_av] 170.38 [lb_av] MEDEN T ([facility]) Body height 57 [in_i] 57 [in_i] [facility] ([facility]) 4'9" Heart rate 67 /min 67 /min [facility] ([facility]) Diastolic blood pressure 80 mm[Hg] 80 mm[Hg] [facility] ([facility]) Systolic blood pressure 124 mm[Hg] 124 mm[Hg] M EDENT ([facility]) Oxygen saturation in Arterial blood by Pulse oximetry 92 % 92 % [facility] ([facility]) Body mass index (BMI) [Ratio] 34.7 kg/m2 34.7 k g/m2 [facility] ([facility]) Body weight 160.50 [lb_av] 160.50 [lb_av] MEDEN T ([facility]) Body height 57 [in_i] 57 [in_i] [facility] ([facility]) 4'9" Heart rate 70 /min 70 /min [facility] ([facility]) Diastolic blood pressure 80 mm[Hg] 80 mm[Hg] [facility] ([facility]) Systolic blood pressure 134 mm[Hg] 134 mm[Hg] M EDENT ([facility]) Oxygen saturation in Arterial blood by Pulse oximetry 95 % 95 % [facility] ([facility] Body mass index (BMI) [Ratio] 32.6 kg/m2 32.6 k g/m2 [facility] ([facility] Body weight 156.00 [lb_av] 156.00 [lb_av] MEDEN T ([facility] Body height 58 [in_i] 58 [in_i] [facility] ([facility] 4'10" Respiratory rate 16 /min 16 /min [facility] ( [facility] Heart rate 66 /min 66 /min [facility] ([facility] Body temperature 98.6 [degF] 98.6 [degF] [facility] ([facility] Diastolic blood pressure 60 mm[Hg] 60 mm[Hg] [facility] ([facility] Systolic blood pressure 116 mm[Hg] 116 mm[Hg] M EDENT ([facility] Oxygen saturation in Arterial blood by Pulse oximetry 93 % 93 % [facility] ([facility] Body mass index (BMI) [Ratio] 33.8 kg/m2 33.8 k g/m2 [facility] ([facility] Body weight 156.25 [lb_av] 156.25 [lb_av] MEDEN T ([facility]) Body height 57 [in_i] 57 [in_i] [facility] ([facility] 4'9" Heart rate 78 /min 78 /min [facility] ([facility] Diastolic blood pressure 76 mm[Hg] 76 mm[Hg] [facility] ([facility]) Systolic blood pressure 110 mm[Hg] 110 mm[Hg] M EDENT ([facility] Oxygen saturation in Arterial blood by Pulse oximetry 96 % 96 % [facility] ([facility] Body mass index (BMI) [Ratio] 31.8 kg/m2 31.8 k g/m2 [facility] ([facility] Body weight 152.00 [lb_av] 152.00 [lb_av] MEDEN T ([facility] Body height 58 [in_i] 58 [in_i] [facility] ([facility] 4'10" Respiratory rate 12 /min 12 /min [facility] ( [facility] Heart rate 66 /min 66 /min [facility] ([facility] Body temperature 98.0 [degF] 98.0 [degF] [facility] ([facility] Diastolic blood pressure 72 mm[Hg] 72 mm[Hg] [facility] ([facility] Systolic blood pressure 116 mm[Hg] 116 mm[Hg] M EDENT ([facility] ID Date Data Source [id number] 06/06/2020 04:05:20 PM [facility] Name Value Range Interpretation Code Description Data Source(s) WEIGHT RECORDED 173.8 lb 173.8 lb [facility] ID Date Data Source [id number] 06/08/2020 06:15:08 PM [facility] Name Value Range Interpretation Code Description Data Source(s) WEIGHT RECORDED 165 lb 165 lb [facility] Body height Measured 58 in 58 in [facility] ID Date Data Source [id number] 06/17/2020 03:16:29 PM [facility] Name Value Range Interpretation Code Description Data Source(s) WEIGHT RECORDED 136.2 lb 136.2 lb [facility] Body height Measured 57.99 in 57.99 in [facility] WEIGHT RECORDED 164 lb 164 lb [facility] Body height Measured 58 in 58 in [facility] TRANSFER FROM [facility] Patient Treatment Plan of Care Planned Activity Planned Date Details Description Data Source (s) POLYETHYLENE GLYCOL 3350 142 MG/ML Oral Solution 06/03/2020 12:00:[address] [facility] POLYETHYLENE GLYCOL 3350 59 MG/ML / Pota ssium Chloride 0.01 MEQ/ML / Sodium Bicarbonate 0.02 MEQ/ML / Sodium Chloride 0.025 MEQ/ML / sodium sulfate 0.04 MEQ/ML Oral Solution 06/03/2020 12:00:[address] [facility] Bisacodyl 5 MG Delayed Release Oral Tablet 06/03/2020 12:00:[address] [facility] Morphine Sulfate 15 MG Oral Tablet 06/02/2020 12:00:[address] [facility] Docusate Sodium 10 MG/ML Oral Suspension 06/02/2020 12:00:[address] [facility] Oxycodone Hydrochloride 5 MG Oral Capsule 06/02/2020 12:00:00 AM [facility] Ondansetron 8 MG Oral Tablet 05/30/2020 12:00:[address] [facility] Prochlorperazine 10 MG Oral Tablet 05/30/2020 12:00:[address] [facility] 72 HR Fentanyl 0.025 MG/HR Transdermal Patch 05/22/2020 12:00:[address] [facility] Lidocaine 5 % External Patch (LIDODERM) 05/18/2020 12:00:[address] [facility] POLYETHYLENE GLYCOL 3350 142 MG/ML Oral Solution 05/18/2020 12:00:[address] [facility] oxyCODONE HCl ER 20 MG Oral Tablet ER 12 Hour [place] (OXYCONTIN) 05/17/2020 12:00:00 AM [facility] 12 HR Guaifenesin 600 MG Extended Release Oral Tablet 05/17/2020 12:00:00 AM [facility] ospital Docusate Sodium 10 MG/ML Oral Suspension 05/17/2020 12:00:[address] [facility] alginic acid 200 MG / Calcium Carbonate 80 MG / magnesium trisilicate 20 MG / Sodium Bicarbonate 70 MG Oral Tablet 05/17/2020 12:00:[address] [facility] Acetaminophen 325 MG Oral Tablet 05/17/2020 12:00:[address] [facility] Ondansetron 4 MG Oral Tablet 05/17/2020 12:00:[address] [facility] Simethicone 80 MG Chewable Tablet 05/17/2020 12:00:[address] [facility] Methocarbamol 500 MG Oral Tablet 05/17/2020 12:00:[address] [facility] Simethicone 80 MG Chewable Tablet 05/14/2020 07:38:[address] [facility] ondansetron (ZOFRAN) injection 4 mg 05/11/2020 09:16:[address] [facility] torsemide 10 MG Oral Tablet [facility] Warfarin Sodium 2 MG Oral Tablet [facility] tramadol hydrochloride 50 MG Oral Tablet [facility]
--- NOTE | 2020-06-18 16:33 | REP ---
INDICATION: RUQ drainage; assess for fluid collection. COMPARISON: Comparison CT studies are from 05/06/2020 and May 31, 2020.. TECHNIQUE: Right upper quadrant sonography. FINDINGS: Scanning through the right upper quadrant of the abdomen demonstrates dilated gallbladder measuring 14.1 x 7.2 x 6.2 cm. This contains multiple large echogenic shadowing calculi consistent with cholelithiasis. The gallbladder wall is slightly thickened at 3.4 mm. Adjacent to the gallbladder in the liver is a large complex anechoic structure consistent with a complex fluid collection. This corresponds with the large low-density lesion in the liver on CT. It measures 13.6 x 9.5 x 12.2 cm. This is compatible with abscess or necrotic neoplasm. IMPRESSION: 1. 13.6 cm complex anechoic collection versus necrotic mass in the liver corresponding with recent CT findings. No abnormality noted in the abdominal wall. 2. Cholelithiasis with dilated slightly thick walled gallbladder. <Electronically signed by Sonny Rico > 06/18/20 2216
[2020-06-18 16:54] LABS: BASO % 0.2 % (0.0-1.0); EOS # 0.1 10^3/uL (0.0-0.5); EOS % 1.1 % (0.0-3.0); HEMATOCRIT 24.1 % (36.0-47.0); HEMOGLOBIN 7.3 g/dl (12.0-15.5); LYMPH # 0.5 10^3/uL (1.5-5.0); MEAN CORPUSCULAR HEMOGLOBIN 24.4 pg (27.0-33.0); MEAN CORPUSCULAR HGB CONC 30.3 g/dl (32.0-36.5); MEAN CORPUSCULAR VOLUME 80.6 fl (80.0-96.0); MONO # 0.8 10^3/uL (0.0-0.8); MONO % 7.7 % (0.0-5.0); NEUTROPHILS # 8.5 10^3/uL (1.5-8.5); NEUTROPHILS % 84.3 % (36.0-66.0); RED BLOOD COUNT 2.99 10^6/uL (4.00-5.40); WHITE BLOOD COUNT 10.1 10^3/uL (4.0-10.0)
[2020-06-18 17:05] LABS: PLATELET COUNT, AUTOMATED 54 10^3/uL (150-450)
[2020-06-18 17:21] LABS: ALBUMIN 2.2 GM/DL (3.2-5.2); BILIRUBIN,TOTAL 0.6 MG/DL (0.2-1.0); CALCIUM LEVEL 8.8 MG/DL (8.8-10.2); CREATININE FOR GFR 1.29 MG/DL (0.55-1.30); GLOMERULAR FILTRATION RATE 43.1 (>39); POTASSIUM SERUM 3.4 MEQ/L (3.5-5.1); TOTAL PROTEIN 5.5 GM/DL (6.4-8.2)
--- NOTE | 2020-06-18 19:38 | HPEPDOC ---
[facility] Medical History & Physical Date of Admission Jun 18, 2020 Date of Service: Jun 18, 2020 Other Provider Roshan Long MD Attending Physician: TUSHAR AYALA MD History and Physical TIME OF SERVICE: 930PM CHIEF COMPLAINT: abscess draining fluid HISTORY OF PRESENT ILLNESS: This 74 yr old F w a hx of right hepatic lobe fluid collections that were initially thought to be abscesses and managed with US guided drainage and aspiration in Jan; during the same admission she was diagnosed with RLE DVT and PEs. Sometime in between Jan and May she was diagnosed with liver carcinoma at [facility]; she has a follow up appointment with coming up soon soon. Today the patient presented w/ c/o that the abscess under her right breast was draining green fluid and that she had 7/10 in severity sharp pain in the same area. She also reported having leftg sided chest pain. Despite being diagnosed with sepsis 2/2 COVID 19 PNA on May 31, today she denied having f/c/n/v/d or cough. She thought that she had been lying in the ER bed for several days and when asked about her LLE swelling reported that she hadnt previously noticed it. REVIEW OF SYSTEMS: 12-point review of systems negative except as listed in HPI PAST MEDICAL/ SURGICAL HISTORY: Liver carcinoma Chronic pancreatic cyst Chronic cholelithiasis Ulcerative colitis Hyperthyroidism with iatrogenic hypothyroidism s/p radioactive iodine ablation 2x RLE DVT/PE (Jan 2020 on lovenox) Anxiety/depression Debility uses a cane to ambulate s/p bilateral knee replacements Ventral hernia repair Rectocele repair Stool transplant SOCIAL HISTORY: Former smoker half pack per day for 15 years. Quit in 1999. Denies alcohol or drug use. She lives alone retired in 2012 FAMILY HISTORY: Father: CAD, HTN. at 78 y/o Mother: health. at 93 y/o ALLERGIES: Please see below. HOME MEDICATIONS: Please see below. PHYSICAL EXAMINATION: Vital Signs Date Time Temp Pulse Resp B/P (MAP) Pulse Ox O2 Delivery O2 Flow Rate FiO2 06/18/20 18:29 77 20 97 Room Air 06/18/20 18:15 115/54 (74) 06/18/20 18:14 98.8 GENERAL APPEARANCE: well nourished /well developed / NAD HEENT: EOMI CARDIOVASCULAR: RRR/NMRG LUNGS: CTAB on RA ABDOMEN: obese/ soft / clean and dry dressing is present at the left upper abdomen/ tender with palpation of left upper abdomen MUSCULOSKELETAL: NCAT/ LLE red, warm and swollen when compared to RLE NEUROLOGICAL: CN 2-12 grossly intact/ speech not dysarthric PSYCHIATRIC: A&O person & place but not time LABORATORY DATA: Laboratory Tests 06/18/20 15:30 06/18/20 20:13 06/18/20 15:30: Immature Granulocyte % (Auto) 1.7, Neutrophils (%) (Auto) 84.3H, Lymphocytes (%) (Auto) 5.0L, Monocytes (%) (Auto) 7.7H, Eosinophils (%) (Auto) 1.1, Basophils (%) (Auto) 0.2, Neutrophils # (Auto) 8.5, Lymphocytes # (Auto) 0.5L, Monocytes # (Auto) 0.8, Eosinophils # (Auto) 0.1, Basophils # (Auto) 0.0, Nucleated Red Blood Cells % (auto) 2.3H, Immature Platelet Fraction 9.3, Anion Gap 8, Glomerular Filtration Rate 43.1, Lactic Acid Level 1.7, Calcium Level 8.8, Total Bilirubin 0.6, Aspartate Amino Transf (AST/SGOT) 11, Alanine Aminotransferase (ALT/SGPT) 12, Alkaline Phosphatase 151H, Total Protein 5.5L, Albumin 2.2L, Albumin/Globulin Ratio 0.7L IMAGING: US abdomen: IMPRESSION: 1. 13.6 cm complex anechoic collection versus necrotic mass in the liver corresponding with recent CT findings. No abnormality noted in the abdominal wall. 2. Cholelithiasis with dilated slightly thick walled gallbladder MICROBIOLOGY: Gram stain and wound cx pending ASSESSMENT: is a 74 yr old F w a hx of recently diagnosed liver carcinoma, recently diagnosed RLE DVT/PE, Ulcerative colitis, hypothyroidism, Anxiety/depression, and Debility who presented w c/o weakness, fluid draining from the right side of her abdomen & left sided lower chest pain. She will be admitted for management of symptomatic anemia, acute thrombocytopenia, necrotic liver abscess in the setting of cancer, and LLE swelling. PLAN: 1 Acute symptomatic anemia Plan: admit to medical floor / f/u serial Hg, stool occult & Iron studies /keep Hg > 7 2. Acute thrombocytopenia She is on lovenox 4Ts score is 4 = intermediate risk Plan: hold lovenox / start fondaparinox / f/u Heparin induced platelet antibodies /consult 3. Necrotic liver abscess in the setting of liver carcinoma The size appears to be larger than it was on the last CT She has leukocytosis but no other SIRS criteria Plan: f/u fluid cx / consult to determine if IR consult is warranted f or drainage / pt is on abx 4. LLE swelling possibly Cellulitis Plan: f/u US to r/o new DVT / start Cefazolin and Vancomycin 5. Encephalopathy vs Dementia Plan: f/u frequent neurochecks/ will ask the day time team to touch base with the patients family on her baseline mental status 6. Recent COVID 19 infection She is asymptomatic Plan: f/u repeat COVID test 7. RLE DVT/PE Plan: switch to fondaparinux / f/u w 8. Hypokalemia Plan: KCl PO & f/u Mag 9. Ulcerative colitis She is no on immunologics Plan: f/u w as scheduled 10. Iatrogenic hypothyroidism s/p radioactive iodine ablation 2x Plan: Levothyroxine 11.Anxiety/depression Plan: Fluoxetine 12. Debility Plan: PT consult for early mobilization 13.Obesity BMI 34.6 complicates care DVT Px n/a on tx dose AC Dispo: home after more than 2 midnights stay /PFS consult has been placed LATE ENTRY 1246AM #Acute LLE DVT Per d/w radiologist the US was positive for LLE DVT that is acute in nature The patients SBP has been trending downwards but she is not tachycardic and the Troponin is wnl Plan: f/u CTA of the chest to r/o PE with right heart strain #Hypotension Plan: start IVF #Hypomagnesemia Plan: replete Mag LATE ENTRY 145AM Per d/w we will dc the fondaparinux, start a heparin drip and ask the day time team to consult and also call the patient's family to obtain collateral history regarding the patient's compliance with lovenox. Since the Hg is trending down 1 will order 1 unit of PRBCs LATE ENTRY 251AM "IMPRESSION: 1. One new small pulmonary embolism in the right lower lobe. Other right lower lobe emboli seen on the prior exam are no longer present. Stable chronic nonocclusive pulmonary embolism in the left lower lobe. No central pulmonary embolism. 2. Significant interval increase in size of the largest liver mass. Other smaller masses in the liver have increased in size and number. 3. Persistent severe dilation of the gallbladder with numerous calculi and impacted stone in the gallbladder neck" #Cholelithiasis Plan: will ask the day time team to consider reconsulting Home Medications Scheduled Enoxaparin Sodium (Lovenox) 80 Mg/0.8 Ml Syringe, 80 MG SC QHS Fentanyl (Duragesic) 25 Mcg Patch.td72, 25 MCG TD Q3RD APPLIED TO LEFT SIDE OF CHEST Fluoxetine Hcl (Fluoxetine HCl) 20 Mg Cap, 20 MG PO DAILY Levothyroxine Sodium (Levothyroxine Sodium) 88 Mcg Tablet, 88 MCG PO DAILY Potassium Chloride (Potassium Chloride) 10 Meq Cap, 10 MEQ PO DAILY Torsemide (Torsemide) 10 Mg Tablet, 10 MG PO DAILY Scheduled PRN Acetaminophen (Tylenol Extra Strength) 500 Mg Tablet, 1,000 MG PO TID PRN for PAIN Albuterol Sulfate (Proair Hfa) 8.5 Gm Hfa.aer.ad, 2 PUFF INH Q4-6HP PRN for wheezing Morphine Sulfate (Morphine Sulfate ER) 15 Mg Tablet.er, 1 TAB PO Q6HP PRN for pain Ondansetron HCl (Ondansetron HCl) 8 Mg Tablet, 8 MG PO Q12H PRN for NAUSEA OR VOMITING Prochlorperazine Maleate (Prochlorperazine Maleate) 10 Mg Tablet, 10 MG PO Q6H P RN for NAUSEA OR VOMITING for use during chemo Allergies Coded Allergies: No Known Drug Allergies (Verified Allergy, Unknown, 02/27/19) A-FIB/CHADSVASC A-FIB History Current/History of A-Fib/PAF?: No Current PO Anticoag Therapy: No TUSHAR AYALA MD Jun 18, 2020 19:38
[2020-06-18] MEDS ORDERED: MAALOX 30 ML SUSP *UDC PO PRN (19:45)
[2020-06-18] MEDS ORDERED: POTASSIUM CHLORIDE 10 MEQ SR TABLET PO ONE (19:45)
[2020-06-18] MEDS ORDERED: ACETAMINOPHEN TAB 650MG DOSE (2X325MG) PO PRN (19:45)
[2020-06-18] MEDS ORDERED: MOM 30ML SUSPENSION UDC PO PRN (19:45)
--- OUTSIDE RECORDS SUMMARY | 2020-06-18 19:52 | CCD ---
Author Author [facility] Organization [facility] Address Unknown Phone Unavailable Care Team Providers Care Epidemiology Investigator Name Role Phone DRAZEK, I ALLISON PA [...] Unavailable DRAZEK, I ALLISON PA Unavailable Unavailable Adam, A Blaire DRAWER MAKER Unavailable Unavailable Adam, A Blaire DRAWER MAKER Unavailable Unavailable [place], A Blaire DRAWER MAKER Unavailable Unavailable Adam, A Blaire DRAWER MAKER Unavailable Unavailable [place], A Blaire DRAWER MAKER Unavailable Unavailable Adam, A Blaire DRAWER MAKER Unavailable Unavailable [place], A Blaire DRAWER MAKER Unavailable Unavailable [place], A Blaire DRAWER MAKER Unavailable Unavailable Adam, A Blaire DRAWER MAKER Unavailable Unavailable Adam, A Blaire DRAWER MAKER Unavailable Unavailable Adam, A Blaire DRAWER MAKER Unavailable Unavailable Adam, A Blaire DRAWER MAKER Unavailable Unavailable Adam, A Blaire DRAWER MAKER Unavailable Unavailable [place], A Blaire DRAWER MAKER Unavailable Unavailable Adam, A Blaire DRAWER MAKER Unavailable Unavailable Adam, A Blaire DRAWER MAKER Unavailable Unavailable Adam, A Blaire DRAWER MAKER Unavailable Unavailable [place], A Blaire DRAWER MAKER Unavailable Unavailable Adam, A Blaire DRAWER MAKER Unavailable Unavailable Adam, A Blaire DRAWER MAKER Unavailable Unavailable [place], A Blaire DRAWER MAKER Unavailable Unavailable Adam, A Blaire DRAWER MAKER Unavailable Unavailable [place], A Blaire DRAWER MAKER Unavailable Unavailable [place], A Blaire DRAWER MAKER Unavailable Unavailable [place], A Blaire DRAWER MAKER Unavailable Unavailable [place], A Blaire DRAWER MAKER Unavailable Unavailable [place], A Blaire DRAWER MAKER Unavailable Unavailable [place], A Blaire DRAWER MAKER Unavailable Unavailable Adam, A Blaire DRAWER MAKER Unavailable Unavailable [place], A Blaire DRAWER MAKER Unavailable Unavailable [place], A Blaire DRAWER MAKER Unavailable Unavailable [place], A Blaire DRAWER MAKER Unavailable Unavailable [place], A Blaire DRAWER MAKER Unavailable Unavailable Adam, A Blaire DRAWER MAKER Unavailable Unavailable [place], A Blaire DRAWER MAKER Unavailable Unavailable Adam, A Blaire DRAWER MAKER Unavailable Unavailable [place], A Blaire DRAWER MAKER Unavailable Unavailable ALIASES , DEFAULT / GENERIC [...] CHARLENE, TALLAT Unavailable Unavailable COOK, B YESSICA DRAWER MAKER Unavailable Unavailable COOK, B YESSICA DRAWER MAKER Unavailable Unavailable COOK, B YESSICA DRAWER MAKER Unavailable Unavailable COOK, B YESSICA DRAWER MAKER Unavailable Unavailable COOK, B YESSICA DRAWER MAKER Unavailable Unavailable COOK, B YESSICA DRAWER MAKER Unavailable Unavailable COOK, B YESSICA DRAWER MAKER Unavailable Unavailable COOK, B YESSICA DRAWER MAKER Unavailable Unavailable COOK, B YESSICA DRAWER MAKER Unavailable Unavailable COOK, B YESSICA DRAWER MAKER Unavailable Unavailable COOK, B YESSICA DRAWER MAKER Unavailable Unavailable COOK, B YESSICA DRAWER MAKER Unavailable Unavailable COOK, B YESSICA DRAWER MAKER Unavailable Unavailable COOK, B YESSICA DRAWER MAKER Unavailable Unavailable COOK, B YESSICA DRAWER MAKER Unavailable Unavailable COOK, B YESSICA DRAWER MAKER Unavailable Unavailable COOK, B YESSICA DRAWER MAKER Unavailable Unavailable COOK, B YESSICA DRAWER MAKER Unavailable Unavailable COOK, B YESSICA DRAWER MAKER Unavailable Unavailable COOK, B YESSICA DRAWER MAKER Unavailable Unavailable COOK, B YESSICA DRAWER MAKER Unavailable Unavailable COOK, B YESSICA DRAWER MAKER Unavailable Unavailable COOK, B YESSICA DRAWER MAKER Unavailable Unavailable COOK, B YESSICA DRAWER MAKER Unavailable Unavailable COOK, B YESSICA DRAWER MAKER Unavailable Unavailable COOK, B YESSICA DRAWER MAKER Unavailable Unavailable COOK, B YESSICA DRAWER MAKER Unavailable Unavailable COOK, B YESSICA DRAWER MAKER Unavailable Unavailable COOK, B YESSICA DRAWER MAKER Unavailable Unavailable COOK, B YESSICA DRAWER MAKER Unavailable Unavailable COOK, B YESSICA DRAWER MAKER Unavailable Unavailable COOK, B YESSICA DRAWER MAKER Unavailable Unavailable COOK, B YESSICA DRAWER MAKER Unavailable Unavailable COOK, B YESSICA DRAWER MAKER Unavailable Unavailable COOK, B YESSICA DRAWER MAKER Unavailable Unavailable COOK, B YSESICA DRAWER MAKER Unavailable Unavailable COOK, B YESSICA DRAWER MAKER Unavailable Unavailable COOK, B YESSICA DRAWER MAKER Unavailable Unavailable COOK, B YESSICA DRAWER MAKER Unavailable Unavailable COOK, B YESSICA DRAWER MAKER Unavailable Unavailable COOK, B YESSICA DRAWER MAKER Unavailable Unavailable COOK, B YESSICA DRAWER MAKER Unavailable Unavailable COOK, B YESSICA DRAWER MAKER Unavailable Unavailable COOK, B YESSICA DRAWER MAKER Unavailable Unavailable COOK, B YESSICA DRAWER MAKER Unavailable Unavailable COOK, B YESSICA DRAWER MAKER Unavailable Unavailable COOK, B YESSICA DRAWER MAKER Unavailable Unavailable COOK, B YESSICA DRAWER MAKER Unavailable Unavailable COOK, B YESSICA DRAWER MAKER Unavailable Unavailable COOK, B YESSICA DRAWER MAKER Unavailable Unavailable COOK, B YESSICA DRAWER MAKER Unavailable Unavailable COOK, B YESSICA DRAWER MAKER Unavailable Unavailable COOK, B YESSICA DRAWER MAKER Unavailable Unavailable COOK, B YESSICA DRAWER MAKER Unavailable Unavailable COOK, B YESSICA DRAWER MAKER Unavailable Unavailable COOK, B YESSICA DRAWER MAKER Unavailable Unavailable COOK, B YESSICA DRAWER MAKER Unavailable Unavailable COOK, B YESSICA DRAWER MAKER Unavailable Unavailable COOK, B YESSICA DRAWER MAKER Unavailable Unavailable COOK, B YESSICA DRAWER MAKER Unavailable Unavailable COOK, B YESSICA DRAWER MAKER Unavailable Unavailable COOK, B YESSICA DRAWER MAKER Unavailable Unavailable COOK, B YESSICA DRAWER MAKER Unavailable Unavailable COOK, B YESSICA DRAWER MAKER Unavailable Unavailable Aicha Warner MD . Unavailable Alana MD, Aicha . Unavailable [...] Unavailable Alana MD, Aicha . Unavailable Alana MARLOW, Aicha . Unavailable LIBORIO, K DAVID MARLOW Unavailable Unavailable [...] DAVID MARLOW Unavailable Unavailable LIBORIO, K DAVID MD Unavailable Unavailable LIBORIO, K DAVID MARLOW Unavailable Unavailable LIBORIO, Kin HERNANDEZ MD Unavailable Unavailable LIBORIO, Kin HERNANDEZ MD Unavailable Unavailable LIBORIO, Kin HERNANDEZ MD Unavailable Unavailable LIBORIO, Kin HERNANDEZ MD Unavailable Unavailable LIBORIO, Kin HERNANDEZ MD Unavailable Unavailable LIBORIO, K DAVID MARLOW [...] Unavailable Unavailable Sena Bar MD Unavailable Unavailable Mandie WINTERS Unavailable Unavailable Eliu Augustin DO Unavailable Unavailable DenEliu sepulveda DO Unavailable Unavailable Suzie BIRD MD Unavailable [...] Unavailable MARGE, H UMANG MD Unavailable Unavailable Dori, Mashaal MD Unavailable Unavailable Dori, Mashasundeep MD Unavailable [...] Unavailable Dori, Mashasundeep MD Unavailable Unavailable Dori, Mashaal MD Unavailable Unavailable Dori, Mashasundeep MD Unavailable Unavailable Dori, Mashasundeep MD Unavailable Unavailable Dori, Mashasundeep MD Unavailable Unavailable Dori, Mashasundeep MD Unavailable Unavailable Dori, Mashasundeep MD Unavailable Unavailable Dori, Mashasundeep MD Unavailable Unavailable Dori, Mashasundeep MD Unavailable Unavailable Dori, Mashasundeep MD Unavailable Unavailable Dori, Mashasundeep MD Unavailable Unavailable Dori, Mashasundeep MD Unavailable Unavailable Dori, Mashausndeep MD Unavailable Unavailable Dori, Mashasundeep MD Unavailable Unavailable Dori, Mashasundeep MD Unavailable Unavailable Dori, Mashaal MD Unavailable Unavailable Dori, Mashaal MD Unavailable Unavailable Dori, Mashaal MD Unavailable Unavailable Dori, Mashaal MD Unavailable Unavailable Dori, Mashaal MD Unavailable Unavailable Dori, Mashasundeep MD Unavailable Unavailable Dori, Mashaal MD Unavailable Unavailable Dori, Mashasundeep MD Unavailable Unavailable Dori, Mashaal MD Unavailable Unavailable Dori, Mashasundeep MD Unavailable Unavailable Dori, Mashasundeep MD Unavailable Unavailable Dori, Mashaal MD Unavailable Unavailable Dori, Mashasundeep MD Unavailable Unavailable Dori, Simone MARLOW Unavailable Unavailable [...] Fish, Chung Hawk MD Unavailable Unavailable FishChung Carine MARLOW Unavailable Unavailable Fish B Carine MARLOW Unavailable Unavailable Fish, B Carine MARLOW Unavailable Unavailable Fish B Carine MARLOW Unavailable Unavailable Fish, B [...] Unavailable Fish, B Carine MARLOW Unavailable Unavailable Sophia MCNEAL MD Unavailable Unavailable Sophia MCNEAL MD Unavailable Unavailable Sophia MCNEAL MD Unavailable Unavailable Sophia MCNEAL MD Unavailable Unavailable FREDISSophia PINEDA MD Unavailable Unavailable FREDISSophia PINEDA MD Unavailable Unavailable FREDIS, O ASAEL MARLOW Unavailable Unavailable FREDISSophia PINEDA MD Unavailable Unavailable FREDIS, O ASAEL MARLOW Unavailable Unavailable FREDISSophia PINEDA MD Unavailable Unavailable FREDISSophia PINEDA MD Unavailable Unavailable FREDIS O ASAEL MARLOW Unavailable Unavailable FREDIS O ASAEL MARLOW Unavailable Unavailable FREDIS O ASAEL MARLOW Unavailable Unavailable FREDIS O ASAEL MARLOW Unavailable Unavailable FREDIS O ASAEL MARLOW Unavailable Unavailable FREDIS O ASAEL MARLOW Unavailable Unavailable FREDIS, O ASAEL MARLOW Unavailable Unavailable FREDIS, O ASAEL MARLOW Unavailable Unavailable FREDIS O ASAEL MARLOW Unavailable Unavailable FREDIS O ASAEL MARLOW Unavailable Unavailable FREDIS O ASAEL MARLOW Unavailable Unavailable FERDIS O ASAEL MARLOW Unavailable Unavailable FREDISSophia PINEDA MD Unavailable Unavailable FREDIS O ASAEL MARLOW Unavailable Unavailable FREDIS O ASAEL MARLOW Unavailable Unavailable FREDIS O ASAEL MARLOW Unavailable Unavailable FREDIS O ASAEL MARLOW Unavailable Unavailable FREDIS O ASAEL MARLOW Unavailable Unavailable FREDIS O ASAEL MARLOW Unavailable Unavailable FREDIS O ASAEL MARLOW Unavailable Unavailable FREDIS O ASAEL MARLOW Unavailable Unavailable FREDIS O ASAEL MARLOW Unavailable Unavailable FREDIS O ASAEL MARLOW Unavailable Unavailable FREDIS, O ASAEL MARLOW Unavailable Unavailable FREDIS, O ASAEL MARLOW Unavailable Unavailable FREDIS O ASAEL MARLOW Unavailable Unavailable FREDIS, O ASAEL MARLOW Unavailable Unavailable FREDIS, O ASAEL MARLOW Unavailable Unavailable FREDIS, O ASAEL MARLOW Unavailable Unavailable Sophia MCNEAL MD Unavailable Unavailable LITO NUNEZ MD Unavailable Unavailable LITO NUNEZ MD Unavailable Unavailable LITO NUNEZ MD Unavailable Unavailable LITO NUNEZ MD Unavailable Unavailable MANZAINABALITO MD Unavailable Unavailable MANZAINABALITO MD Unavailable Unavailable MANZAINABALITO MD Unavailable Unavailable MANZAINABALITO MD Unavailable Unavailable MANZAINABALITO MD Unavailable Unavailable BRIANALITO MD Unavailable Unavailable LITO NUNEZ MD Unavailable Unavailable MANLITO ONOFRE MD Unavailable [...] Unavailable Chung Smart MD Unavailable Unavailable Chung Smatr MD Unavailable Unavailable Chung Smart MD Unavailable Unavailable Chung Smart MD Unavailable Unavailable Chung Smart MD Unavailable Unavailable Chung Smart MD Unavailable Unavailable Chung Smart MD Unavailable Unavailable Chung Smart MD Unavailable Unavailable Chung Smart MD Unavailable Unavailable Chung Smart MD Unavailable Unavailable [place], B Leif MARLOW Unavailable Unavailable Lara, B Leif MARLOW Unavailable Unavailable [place], B Leif MARLOW Unavailable Unavailable [place], B Leif MARLOW Unavailable Unavailable Lara, B Leif MARLOW Unavailable Unavailable [place], B Leif MARLOW Unavailable Unavailable [place], B Leif MARLOW Unavailable Unavailable [place], B Leif MARLOW Unavailable Unavailable [place], B Leif MARLOW Unavailable Unavailable Lara, B Leif MARLOW Unavailable Unavailable [place], B Leif MARLOW Unavailable Unavailable [place], B Leif MARLOW Unavailable Unavailable Lara, B Leif MARLOW Unavailable Unavailable [place], B Leif MARLOW Unavailable Unavailable Lara, B Leif MARLOW Unavailable Unavailable Lara, B Leif MARLOW Unavailable Unavailable [place], B Leif MARLOW Unavailable Unavailable Lara, B Leif MARLOW Unavailable Unavailable MAGDALENO ED, M DANIEL Unavailable Unavailable DINERO, EFREN DRAWER MAKER Unavailable Unavailable DINERO, EFREN DRAWER MAKER Unavailable Unavailable DINERO, EFREN DRAWER MAKER Unavailable Unavailable Re-disclosure Warning The records that [...] is protected by Article 27-F of the [place] [facility] Public [facility] law. If you continue you may have access to information: Regarding HIV / AIDS; Provided by facilities licensed or operated by the [facility] Office of Mental Health; or Provided by the [facility] Office for People With Developmental Disabilities. If such information is present, then the following [facility] mandated warning applies: This information has been [...] law may result in a fine or detention sentence or both. A general authorization for the release of medical or other information is NOT sufficient authorization for further disc losure. Allergies and Adverse Reactions Type Description Substance Reaction Status Data Source(s ) Drug Class NO KNOWN ALLERGIES NO KNOWN ALLERGIES [facility] Family History Family Member Name Family Member Gender Family Member Status Date o f Status Description Data Source(s) Unknown Female Problem [facility] ([facility]) Unknown Female Problem [facility] ([facility]) Encounters Encounter Providers Location Date Indications Data Source(s ) Outpatient 08/29/2020 12:00:00 AM [facility] Outpatient 08/29/2020 12:00:00 AM [facility] Outpatient 08/15/2020 12:00:00 AM [facility] Outpatient 08/15/2020 12:00:00 AM [facility] Outpatient 08/08/2020 12:00:00 AM [facility] Outpatient 08/08/2020 12:00:00 AM [facility] Outpatient 07/25/2020 12:00:00 AM [facility] Outpatient 07/25/2020 12:00:00 AM [facility] Outpatient 07/18/2020 12:00:00 AM [facility] Outpatient 07/18/2020 12:00:00 AM [facility] Outpatient 07/04/2020 12:00:00 AM [facility] Outpatient 07/04/2020 12:00:00 AM [facility] Outpatient Attender: Aicha Warner MDReferrer: Pj Cortes 07/01/2020 12:00:00 AM [facility] Outpatient 06/27/2020 12:00:00 AM [facility] Outpatient Attender: ADELA CHANG 06/20/2020 12:00:00 AM [facility] Outpatient Attender: DANIEL PERRYUEIRAReferrer: Pj Augustin DO 06/18/2020 12:00:00 AM [facility] Outpatient 06/14/2020 12:00:00 AM [facility] Outpatient Referrer: Pj Augustin DO 06/13/2020 12:00:00 AM [facility] Outpatient Referrer: Pj Augustin DO 06/10/2020 12:00:00 AM [facility] Outpatient Attender: BETTY LIZARRAGA ttender: DEFAULT / GENERIC / UNKNOWN PROVIDER ALIASES 06/06/2020 12:00:00 AM EST Cyndi gnant neoplasm of liver, not specified as primary or secondary [facility] Malignant neoplasm of liver, not specifi ed as primary or secondary Outpatient Attender: LITO NUNEZ MDReferrer: UMANG DOMÍNGUEZ MD [id number] 06/03/2020 12:00:00 AM [facility] - 06/03/2020 12:56:05 PM [facility] Outpatient Attender: Aicha Warner MD [id number] 2020 12:00:00 AM [facility] - 05/30/2020 12:31:08 PM EST Malignant neoplasm of liver, not specifi ed as primary or secondary [facility] Malignant neoplasm of liver, not specifi ed as primary or secondary Outpatient Attender: Blaire Medina NP [id number] 05/29/2020 12 :36:34 PM [facility] Outpatient Attender: UMANG BIRD MD [facility] 10:30:00 AM [facility] Outpatient Attender: Simone Meadows MDReferrer: Simone Meadows MD 05/15/2020 12:00:00 AM [facility] Outpatient Attender: Simone Meadows MDReferrer: Simone Meadows MD 05/12/2020 12:00:00 AM [facility] Inpatient Attender: DEFAULT / GENE CATIE / UNKNOWN PROVIDER ALIASES Attender: Simone Meadows MDAttender: Leif Smart MDAttender: Sena Bar MDAdmitter: Leif Smart MDReferrer: EFREN DINERO NPConsultant: DAVID CAPONE MDConsultant: Leif Smart MD [id number] 05/10/2020 12:00:00 AM [facility] - 05/17/2020 06:31:00 PM EST Abscess of liver [facility] Abscess of liver Patient discharged. Outpatient Attender: YESSICA HORN NP Physical Therapy 05/05/2020 0 1:45:00 PM EST [facility] ([facility]) Outpatient Attender: UMANG Damico Office [...] Gaston/Alessandra/Wesly/Olga randolph 03/12/2020 09:30:00 AM EDT [facility] ([facility] Outpatient Attender: Carine Del Toro MD Physical Therapy 03/05 02:15:00 PM EDT [facility] ([facility]) Outpatient Attender: UMANG [place] Office 11/2019 10:40:00 AM EDT [facility] ([facility] Outpatient Attender: UMANG [place] Office 01/2020 01:15:00 PM EDT [facility] ([facility] Outpatient Attender: Carine Del Toro MD Physical Therapy 12/20 03:00:00 PM EDT [facility] ([facility]) Outpatient Attender: Carine Del Toro MD Physical Therapy 11/19 09:45:00 AM EDT [facility] ([facility]) Outpatient Attender: UMANG [place] Office 01/2020 01:00:00 PM EDT [facility] ([facility] Outpatient Attender: Carine Del Toro MD Physical Therapy 10/25 12:15:00 PM EDT [facility] ([facility]) Outpatient Referrer: ALLISON ADAM 08/29/2019 03:12:00 PM EDT [facility] Office Visit Attender: Carine Del Toro MD Physical Therapy 08/22 04:00:00 PM EDT [facility] ([facility]) Outpatient Attender: Carine Del Toro MD Physical Therapy 07/17 08:15:00 AM EST [facility] ([facility]) Outpatient Referrer: ALLISON ADAM 07/16/2019 10:03:00 AM EST [facility] Outpatient Attender: UMANG BIRD MD [place] Office 08/2019 12:15:00 PM EST [facility] ([facility] Outpatient Attender: Carine eDl Toro MD Physical Therapy 06/19 10:45:00 AM EST [facility] ([facility]) Outpatient Attender: Tahira ADAM Physical Therapy 02:00:00 PM EST [facility] ([facility]) Outpatient Attender: UMANG BIRD MD [place] Office 07/2019 09:40:00 AM EST [facility] ([facility] Immunizations Vaccine Date [...] sodium sulfate 0.04 MEQ/ML Oral Solution PEG 1304-[id number]-RkGhz-NaCl-NaSulf 236 GM Oral Solution Reconstituted (GoLYTELY,NuLYTELY) PEG 6301-CUs-GtFny-NaCl-NaSulf 236 GM Or al Solution Reconstituted (GoLYTELY,NuLYTELY) 06/03/2020 12:00:00 AM EST 4000 mL Oral active Imaging abnormality Take 4,000 mLs by mouth once for 1 dose [facility] Imaging abnormality POLYETHYLENE GLYCOL 3350 142 MG/ML Oral Solution Polyethylene Glycol 3350 17 GM/SCOOP Oral Powder Polyethylene Glycol 3350 17 GM/SCOOP Oral Powder 06/03 12:00:00 AM EST 17 g Oral active Imaging abnormal ity Take 17 g by mouth nightly for 7 daysTake 1 capful at bedtime starting 1 week prior to colonoscopy. [facility] Imaging abnormality Bisacodyl 5 MG Delayed Release Oral Tabl et Bisacodyl 5 MG Oral Tablet Delayed Release (DULCOLAX) Bisacodyl 5 MG Oral Tablet Delayed Release (DULCOLAX) 06/03/2020 12:00:00 AM EST active Imagi ng abnormality Take 4 tablets one day prior to colonoscopy. [facility] Imaging abnormality 15 mg 06/02/2020 12:00:00 AM EST tablet 28 TAKE ONE TABLET BY MOUTH EVERY 6 HOURS NEEDED FOR PAIN FOR UP TO 7 DAYS, MAXIMUM DAILY DOSE = 4 TABLETS TAKE ONE TABLET BY MOUTH EVERY 6 HOURS NEEDED FOR PAIN FOR UP TO 7 DAYS, MAXIMUM DAILY DOSE = 4 TABLETS SOLD: 06/03/2020 [employer] Morphine Sulfate 15 MG Oral Tablet Morphine Sulfate 15 MG Oral Tablet (MSIR) Morphine Sulfate 15 MG Oral Tablet (MSIR) 06/02/2020 12:00:00 AM EST 15 mg Oral active Cholangiocarcinoma Take 1 tablet by mouth every 6 (six) hours as needed for Pain for up to 7 days, Max Daily Dose: 60 mg [facility] Cholangiocarcinoma Oxycodone Hydrochloride 5 MG Oral Capsul e oxyCODONE HCl 5 MG Oral Capsule (OXY-IR) oxyCODONE HCl 5 MG Oral Capsule (OXY-IR) 06/02/2020 12:00:00 AM EST 5 mg Oral aborted Take 1 cap tin by mouth every 6 (six) hours as needed for Pain for up to 7 days, Max Daily Dose: 20 mg [facility] Docusate Sodium 10 MG/ML Oral Suspension Docusate Sodium 50 MG/5ML Oral Liquid (COLACE) Docusate Sodium 50 MG/5ML Oral Liquid (COLACE) 12:00:00 AM EST 100 mg Oral active Cholangiocarcinoma Take 10 mLs by mouth Two Times Daily for 10 days [facility] Cholangiocarcinoma 90 mcg/actuation 06/02/2020 12:00:00 AM [...] hours as needed for Nausea or Vomiting [facility] Adenocarcinoma determined by biopsy of l iver Prochlorperazine 10 MG Oral Tablet Proch lorperazine Maleate 10 MG Oral Tablet (COMPAZINE) Prochlorperazine Maleate 10 MG Oral Tablet (COMPAZINE) 05/30/2020 12:00:00 AM EST 10 mg Oral active 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 Take 1 tablet by mouth every 6 (six) carolynn rs as needed (Nausea/Vomiting) [facility] Adenocarcinoma determined by biopsy of l [...] HOURS ON 12 HOURS OFF SOLD: 05/24/2020 [facility] 25 mcg/hr 05/22/2020 12:00:00 AM EST [...] DAILY DOSE 1 PATCH EVERY 3 DAYS [facility] Cholangiocarcinoma 5-325 mg 05/19/2020 12:00:00 AM EST tablet 15 TAKE ONE TABLET BY MOUTH EVERY 8 HOURS NEEDED FOR BACK PAIN, MAXIMUM DAILY DOSE = THREE TABLETS TAKE ONE TABLET BY MOUTH EVERY 8 HOURS NEEDED FOR BACK PAIN, MAXIMUM DAILY DOSE = THREE TABLETS SOLD: 05/19/2020 [facility] 72 HR Fentanyl 0.025 MG/HR Transdermal Patch Fentanyl 05/19/2020 12:00:00 AM EST active [facility] ([facility] 12 HR Oxycodone Hydrochloride 20 MG Extended Release O ral Tablet [Oxycontin] Oxycontin 05/19/2020 12:00:00 AM EST ORAL completed [facility] ([facility] Acetaminophen 325 MG / Oxycodone Hydrochloride 5 MG Or al Tablet [Percocet] Percocet 05/19/2020 12:00:00 AM EST ORAL active [facility] ([facility] POLYETHYLENE GLYCOL 3350 142 MG/ML Oral Solution Polyethylene Glycol 3350 17 GM Oral Packet (MIRALAX) Polyethylene Glycol 3350 17 GM Oral Packet (MIRALAX) 05/18/2020 12:00:00 AM EST 17 g Oral active Take 1 packet by mouth daily for 3 daysPlease substitute bottle for packets, if packets are unavailable. [facility] Lidocaine 5 % External Patch (LIDODERM) 4205-0476-34 05/18/20 20 12:00:00 AM EST 2 {patch} Transdermal active Place 2 pa tches onto the skin daily 12 hours on 12 hours off [facility] gadobutrol (GADAVIST) contrast injection 6 mL 19499 04:15:00 AM EST 0.1 mL/kg Intravenous completed 6 mL (ro unded from 6.18 mL = 0.1 mL/kg 61.8 kg), Intravenous, 1 TIME IMAGING, 05/17/20 at 0415, For 1 dose
Do not mix or administer in the same IV line with other medications.
[facility] Medication administered onsite Docusate Sodium 10 MG/ML Oral Suspension Docusate Sodium 50 MG/5ML Oral Liquid (COLACE) Docusate Sodium 50 MG/5ML Oral Liquid (COLACE) 020 12:00:00 AM EST 100 mg Oral aborted Take 10 mLs by mouth Two Times Daily for 10 days [facility] 12 HR Guaifenesin 600 MG Extended Releas e Oral Tablet guaiFENesin ER 600 MG Oral Tablet Extended Release 12 Hour (MUCINEX) guaiFENesin ER 600 MG Oral Tablet Extended Release 12 Hour (MUCINEX) 05/17/2020 12:00:00 AM EST 600 mg Oral aborted Take 1 tablet by mouth Two Times Daily [facility] Acetaminophen 325 MG Oral Tablet Acetaminophen 325 MG Oral T ablet 05/17/2020 12:00:00 AM EST 975 mg Oral aborted Take 3 tablets by mouth every 8 (eight) hours [facility] alginic acid 200 MG / Calcium Carbonate 80 MG / magnesium trisilicate 20 MG / Sodium Bicarbonate 70 MG Oral Tablet Calcium Carbonate Antacid 500 MG Oral Tablet Chewable (TUMS) Calcium Carbonate Antacid 500 MG Oral Ta blet Chewable (TUMS) 05/17/2020 12:00:00 AM EST 500 mg Oral active Chew 1 tablet by Mouth Two times daily as needed [facility] oxyCODONE HCl ER 20 MG Oral Tablet ER 12 Hour [place] (OXYCONTIN) [id number] 05/17/2020 12:00:00 AM EST 20 mg Oral abort ed Take 1 tablet by mouth every 12 (twelve) hours , Max Daily Dose: 40 mg [facility] Methocarbamol 500 MG Oral Tablet Methocarbamol 500 MG Oral Tablet (ROBAXIN) Methocarbamol 500 MG Oral Tablet (ROBAXIN) 05/17/2020 12:00:00 AM EST 500 mg Oral active Take 1 tablet by inderjit th Four times daily for 10 days [facility] Simethicone 80 MG Chewable Tablet Simeth icone 80 MG Oral Tablet Chewable (MYLICON) Simethicone 80 MG Oral Tablet Chewable (MYLICON) 05/17 12:00:00 AM EST 80 mg Oral active Chew 1 t ablet by Mouth every 6 (six) hours as needed for Flatulence for up to 10 days [facility] Ondansetron 4 MG Oral Tablet Ondansetron HCl 4 MG Oral Tablet (ZOFRAN) Ondansetron HCl 4 MG Oral Tablet (ZOFRAN) 05/17/2020 12:00:00 AM EST 4 mg Oral active Take 1 tablet by mouth every 8 (eight) hours as needed for Nausea for up to 7 days [facility] 500 mg 05/17/2020 12:00:00 AM EST [...] Starting Tue05/16/20 at 2312, For 30 days [facility] Medication administered onsite iohexol (OMNIPAQUE) 300 MG/ML contrast injection 50 mL [id number] 05/16/2020 12:15:00 PM EST 50 mL Given by IV completed 50 mL, Given by IV, 1 TIME IMAGING, Tue05/16/20 at 1215, For 1 dose [facility] Medication administered onsite iohexol (OMNIPAQUE) 300 MG/ML contrast injection 100 mL [id number] 05/16/2020 11:30:00 AM EST 100 mL Given by IV completed 100 mL, Given by IV, 1 TIME IMAGING, Tue05/16/20 at 1130, For 1 dose [facility] Medication administered onsite iohexol (OMNIPAQUE) 240 MG/ML contrast 20 mL [id number] 09:22:00 AM EST 20 mL Oral completed 20 mL, Oral, P RN, Contrast, Starting Tue05/16/20 at 0922, For 1 day
Dilute before administering
[facility] Medication administered onsite 1 ML Enoxaparin sodium 100 MG/ML Prefill ed Syringe enoxaparin sodium (LOVENOX) injection 90 mg enoxaparin sodium (LOVENOX) injection 90 mg 05/15/2020 09:00:00 PM EST 90 mg Subcutaneous active 90 mg, Subcutaneous, Daily Standard, First dose on Tue05/15/20 at 2100, For 30 days [facility] Medication administered onsite Acetaminophen 325 MG Oral Tablet acetaminophen (TYLENO L) tablet 975 mg acetaminophen (TYLENOL) tablet 975 mg 05/15/2020 03:00:00 PM EST 97 5 mg Oral active 975 mg, Oral, E very 8 hours, First dose (after last modification) on Mouna 05/15/20 at 1500, For 30 days
Maximum daily dose of acetaminophen is 3,000 mg from all sources in 24 hours.
[facility] Medication administered onsite lidocaine (XYLOCAINE) 2 % injection [id number] 05/15/2020 10:54:13 AM EST completed Code/Trauma Medicati on, Starting Mouna 05/15/20 at 1054 [facility] Medication administered onsite 2 ML Midazolam 1 MG/ML Injection midazolam (PF) (VERSE D) injection midazolam (PF) (VERSED) injection 05/15/2020 10:49:20 AM EST completed Code/Trauma Medication, Starting Mouna 05/15/20 at 1049 [facility] Medication administered onsite fentaNYL (SUBLIMAZE) (PF) injection [id number] 05/15/2020 10:49:13 AM EST completed Code/Trauma Medicati on, Starting Mouna 05/15/20 at 1049 [facility] Medication administered onsite sodium phosphate infusion 6 mmol/100 mL (premix) 05/15 06:30:00 AM EST 6 mmol Intravenous completed 6 mmol, Intravenous, at 25 mL/hr, Once, [facility] 05/15/20 at 0630, For 1 dose
Slower infusion rate (e.g. over 4 to 6 hours) are recommended in patients with renal impairment and/or less severe hypophos phatemia.
[facility] Medication administered onsite magnesium sulfate in dextrose 5 % infusion (premix) 1 g 0409 -6727-23 05/15/2020 06:30:00 AM EST 1 g Intravenous completed 1 g, Intravenous, Administer over 60 Minutes, Once, [facility] 05/15/20 at 0630, For 1 dose [facility] Medication administered onsite oxyCODONE HCl ER (OXYCONTIN) 12 hr tablet 20 mg 8406-1156-11 05/14/2020 09:00:00 PM EST 20 mg Oral active 20 mg, O ral, Every 12 hours Standard (2 times per day), First dose on Tue05/14/20 at 2100, For 7 days
Do not crush or chew
[facility] Medication administered onsite sodium phosphate infusion 6 mmol/100 mL (premix) 05/14 12:30:00 PM EST 6 mmol Intravenous completed 6 mmol, Intravenous, at 25 mL/hr, Every 4 hours, First dose (after last reorder) on Tue05/14/20 at 1230, For 2 doses
Slower infusion rate (e.g. over 4 to 6 hours) are recommended in patients with renal impairment and/or less severe hypophosphatemia.
[facility] Medication administered onsite Amoxicillin 875 MG / Clavulanate 125 MG Oral Tablet amoxicillin-clavulanate (AUGMENTIN) 875-125 MG per tablet 1 tablet amoxicillin-clavulanate (AUGMENTIN) 875-125 MG per tablet 1 tablet 05/14/2020 09:00:00 AM EST 1 {tbl} Or al active 1 tablet, Oral, Ever y 12 hours Standard (2 times per day), First dose (after last modification) on Tue05/14/20 at 0900, For 6 days [facility] Medication administered onsite 0.4 ML Enoxaparin sodium 100 MG/ML Prefi lled Syringe enoxaparin sodium (LOVENOX) injection 40 mg enoxaparin sodium (LOVENOX) injection 40 mg 05/14/2020 09:00:00 AM EST 40 mg Subcutaneous aborted 40 mg, Subcutaneous, Daily Standard, First dose (after last modification) on Tue05/14/20 at 0900, For 29 doses [facility] Medication administered onsite sodium phosphate infusion 6 mmol/100 mL (premix) 05/14 08:00:00 AM EST 6 mmol Intravenous aborted 6 mmol, Intravenous, at 25 mL/hr, Every 2 hours, First dose on Tue05/14/20 at 0800, For 3 doses
Slower infusion rate (e.g. over 4 to 6 hours) are recommended in patients with renal impairment and /or less severe hypophosphatemia.
[facility] Medication administered onsite Simethicone 80 MG Chewable Tablet simethicone (MYLICON ) chewable tablet 80 mg simethicone (MYLICON) chewable tablet 80 mg 05/14/2020 07:38:45 AM EST 80 mg Oral active 80 mg, Oral, E very 6 hours PRN, Flatulence, Starting Tue05/14/20 at 0738, For 30 days [facility] Medication administered onsite magnesium sulfate in dextrose 5 % infusion (premix) 1 g 0409 -6727-05/14/2020 06:15:00 AM EST 1 g Intravenous completed 1 g, Intravenous, Administer over 60 Minutes, Once, Tue05/14/20 at 0615, For 1 dose [facility] Medication administered onsite Amoxicillin 875 MG / Clavulanate 125 MG Oral Tablet amoxicillin-clavulanate (AUGMENTIN) 875-125 MG per tablet 1 tablet amoxicillin-clavulanate (AUGMENTIN) 875-125 MG per tablet 1 tablet 05/13/2020 09:00:00 PM EST 1 {tbl} Or al aborted 1 tablet, Oral, Ever y 12 hours Standard (2 times per day), First dose on Tue05/13/20 at 2100, For 14 days [facility] Medication administered onsite 12 HR Guaifenesin 600 MG Extended Releas e Oral Tablet guaifenesin (MUCINEX) 12 hr tablet 600 mg guaifenesin (MUCINEX) 12 hr tablet 600 mg 05/13/2020 1 2:45:00 PM EST 600 mg Oral active 600 mg, Oral, 2 Times Daily, First dose on Tue05/13/20 at 1245, For 30 days
Do not crush or chew
[facility] Medication administered onsite Monobasic potassium phosphate [...] mg and potassium 144 mg (3.7 mEq)
[facility] Medication administered onsite lidocaine (LIDODERM) 5 % patch 2 patch [id number] 0 09:15:00 AM EST 2 {patch} Transdermal active 2 patch, T ransdermal, Daily Standard, First dose on Tue05/13/20 at 0915, For 30 days
Apply to flank/back or any tender area.12 hours on - 12 hours off
[facility] Medication administered onsite Methocarbamol 500 MG Oral Tablet methocarbamol (ROBAXI N) tablet 500 mg methocarbamol (ROBAXIN) tablet 500 mg 05/13/2020 09:15:00 AM EST 50 0 mg Oral active 500 mg, Oral, F our Times Daily Standard, First dose on Tue05/13/20 at 0915, For 30 days [facility] Medication administered onsite potassium phosphate infusion 6 mmol/100 mL (premix) 05/13/2020 08:00:00 AM EST 6 mmol Intravenous aborted 6 mm ol, Intravenous, at 25 mL/hr, Every 2 hours, First dose on Tue05/13/20 at 0800, For 3 doses
Slower infusion rates (e.g. over 4 hours) are recommended in patients with renal impairment and/or le ss severe hypophosphatemia. Product contains 8.8 mEq of potassium.
[facility] Medication administered onsite lidocaine (XYLOCAINE) 2 % injection [id number] 05/12/2020 06:42:09 PM EST completed Code/Trauma Medicati on, Starting 05/12/20 at 1842 [facility] Medication administered onsite 2 ML Midazolam 1 MG/ML Injection midazolam (PF) (VERSE D) injection midazolam (PF) (VERSED) injection 05/12/2020 06:40:54 PM EST completed Code/Trauma Medication, Starting 05/12/20 at 1840 [facility] Medication administered onsite fentaNYL (SUBLIMAZE) (PF) injection [id number] 05/12/2020 06:40:45 PM EST completed Code/Trauma Medicati on, Starting 05/12/20 at 1840 [facility] Medication administered onsite 0.4 ML Enoxaparin sodium 100 MG/ML Prefi lled Syringe enoxaparin sodium (LOVENOX) injection 40 mg enoxaparin sodium (LOVENOX) injection 40 mg 05/11/2020 10:00:00 AM EST 40 mg Subcutaneous aborted 40 mg, Subcutaneous, Daily Standard, First dose on 05/11/20 at 1000, For 30 days [facility] Medication administered onsite ondansetron (ZOFRAN) injection 4 mg [id number] 05/11/2020 09:16:2 8 AM EST 4 mg Intravenous active 4 mg, In travenous, Every 8 hours PRN, Nausea, Vomiting, Starting 05/11/20 at 0916, For 30 days [facility] Medication administered onsite levothyroxine (SYNTHROID) tablet 125 mcg 05/11/2020 06:00: 00 AM EST 125 ug Oral active 125 mcg, Oral, Daily at 0600, First dose on 05/11/20 at 0600, For 30 days [facility] Medication administered onsite potassium chloride (K-DUR) dissolvable tablet 10 mEq [id number] 05/10/2020 10:00:00 PM EST 10 meq Oral completed 10 mEq, Oral, Once, 05/10/20 at 2200, For 1 dose
May be dissolved in water for patients with a G-Tube or unable to swallow. If concern for clogging G-Tube, may contact Pharmacy to switch formulation to a powder packet.
[facility] Medication administered onsite potassium chloride (K-DUR) dissolvable tablet 20 mEq 82035-1 38-90 05/10/2020 09:00:00 PM EST 20 meq Oral active 20 mEq, Oral, 2 Times Daily, First dose on 05/10/20 at 2100, For 30 days
May be dissolved in water for patients with a G-Tube or unable to swallow. If concern for clogging G-Tube, may contact Pharmacy to switch formulation to a powder packet.
[facility] Medication administered onsite Acetaminophen 325 MG [...] mg from all sources in 24 hours.
[facility] Medication administered onsite potassium phosphate 155 [...] mEq), and potassium 45 mg (1.1 mEq)
[facility] Medication administered onsite Piperacillin 3000 MG [...] piperacillin- tazobactam is compatible with Lactated Ringers.
[facility] Medication administered onsite potassium chloride SA (K-DUR) CR tablet 10 mEq [id number] 05/10/2020 09:00:00 AM EST 10 meq Oral aborted 10 mEq, Oral, 2 Times Daily, First dose on 05/10/20 at 0900, For 30 days
Do not crush or chew
[facility] Medication administered onsite Sulfasalazine 500 MG Oral Tablet sulfaSALAzine (AZULFI DINE) tablet 500 mg sulfaSALAzine (AZULFIDINE) tablet 500 mg 05/10/2020 09:00:00 AM EST 500 mg Oral active 500 mg, Oral, Four Times Daily Standard, First dose on 05/10/20 at 0900, For 30 days [facility] Medication administered onsite Fluoxetine 20 MG Oral Capsule fluoxetine (PROZAC) caps ule 20 mg fluoxetine (PROZAC) capsule 20 mg 05/10/2020 09:00:00 AM EST 20 mg Oral active 20 mg, Oral, Daily Standard, First dose on 05/10/20 at 0900, For 30 days [facility] Medication administered onsite Docusate Sodium 10 MG/ML Oral Suspension docusate (COLACE) 50 MG/5ML liquid 100 mg docusate (COLACE) 50 MG/5ML liquid 100 mg 05/10/2020 09:00:00 AM EST 100 mg Oral active 100 mg, Or al, 2 Times Daily, First dose on 05/10/20 at 0900, For 30 days [facility] Medication administered onsite torsemide 20 MG Oral Tablet torsemide (DEMADEX) tablet 10 mg torsemide (DEMADEX) tablet 10 mg 05/10/2020 09:00:00 AM EST 10 mg Oral acti ve 10 mg, Oral, Daily Standard, First dose on 05/10/20 at 0900, For 30 days [facility] Medication administered onsite 0.8 ML Enoxaparin sodium 100 MG/ML Prefi lled Syringe enoxaparin sodium (LOVENOX) injection 80 mg enoxaparin sodium (LOVENOX) injection 80 mg 05/10/2020 09:00:00 AM EST 80 mg Subcutaneous aborted 80 mg, Subcutaneous, Daily Standard, First dose on 05/10/20 at 0900, For 30 days [facility] Medication administered onsite POLYETHYLENE GLYCOL 3350 [...] due to potential increased risk for aspiration.
[facility] Medication administered onsite magnesium sulfate in dextrose 5 % infusion (premix) 1 g 0409 -6727-23 05/10/2020 07:00:00 AM EST 1 g Intravenous completed 1 g, Intravenous, Administer over 60 Minutes, Once, 05/10/20 at 0700, For 1 dose [facility] Medication administered onsite Potassium Chloride 0.1 MEQ/ML Injectable Solution potassium chloride 10 mEq in 100 mL IVPB (premix) potassium chloride 10 mEq in 100 mL IVPB (premix) 05/10/2020 07:00:00 AM EST 10 meq Intravenous completed 10 mEq, Intravenous, Administer over 60 Minutes, Every 1 hour, First dose on 05/10/20 at 0700, For 2 doses [facility] Medication administered onsite Calcium Chloride 0.0014 MEQ/ML / Potassi um Chloride 0.004 MEQ/ML / Sodium Chloride 0.103 MEQ/ML / Sodium Lactate 0.028 MEQ/ML Injectable Solution lactated ringers infusion lactated ringers infusion 05/10/2020 06:30:00 AM EST 75 mL/h Intravenous aborted at 75 mL /hr, Intravenous, Continuous, Starting 05/10/20 at 0630, For 30 days [facility] Medication administered onsite fentaNYL (SUBLIMAZE) (PF) injection 25 mcg [id number] 05/10/2020 02:45:00 AM EST 25 ug Intravenous completed 25 mcg, Intravenous, Once, 05/10/20 at 0245, For 1 dose [facility] Medication administered onsite Piperacillin 3000 MG / tazobactam 375 MG Injection piperacillin-tazobactam (ZOSYN) IVPB 3.375 g (premix) piperacillin-tazobactam (ZOSYN) IVPB 3.3 75 g (premix) 05/10/2020 02:45:00 AM EST 3.375 g Intravenous com pleted 3.375 g, Intravenous, Administer over 0.5 Hours, Once, 05/10/20 at 0245, For 1 dose
This specific formulation of piperacillin-tazobactam is compatible with Lactated Ringers.
[facility] Medication administered onsite sodium chloride 0.9 % bolus 500 mL [id number] 05/10/2020 02:45:00 AM EST 500 mL Intravenous completed 500 mL, Intravenous, Once, 05/10/20 at 0245, For 1 dose [facility] Medication administered onsite 88 mcg 05/05/2020 12:00:00 AM EST tablet 30 TAKE ONE TABLET BY MOUTH EVERY DAY TAKE ONE TABLET BY MOUTH EVERY DAY SOLD: 06/12/2020 [facility] Levothyroxine Sodium 0.088 MG Oral Tablet Levothyroxine Sodi um 05/05/2020 12:00:00 AM EST ORAL active M [facility] ([facility]) 0.3 ML Enoxaparin sodium 100 MG/ML Prefilled Syringe [Loveno x] Lovenox 05/05/2020 12:00:00 AM EST ORAL active [facility] ([facility]) 88 mcg 05/05/2020 12:00:00 [...] 03/05/2020 12:00:00 AM EDT ORAL completed [facility] ([facility]) 4 mg 02/27/2020 12:00:00 AM EDT tablet 30 TAKE ONE TABLET BY MOUTH EVERY DAY TAKE ONE TABLET BY MOUTH EVERY DAY SOLD: 02/27/2020 [facility] 4 mg 02/27/2020 12:00:00 AM EDT tablet 30 TAKE ONE TABLET BY MOUTH EVERY DAY TAKE ONE TABLET BY MOUTH EVERY DAY SOLD: 03/26/2020 [facility] Warfarin Sodium 4 MG Oral Tablet [...] Sodium 02/24/2020 12:00:00 AM EDT completed [facility] ([facility] 500 mg 02/22/2020 12:00:00 [...] 12/24/2019 12:00:00 AM EDT ORAL completed [facility] ([facility]) 125 mcg 12/24/2019 12:00:00 AM [...] 12/24/2019 12:00:00 AM EDT ORAL completed [facility] ([facility]) 500 mg 2019 12:00:00 AM EDT tablet 6 TAKE ONE TABLET BY MOUTH TWICE A DAY FOR 3 DAYS TAKE ONE TABLET BY MOUTH TWICE A DAY FOR 3 DAYS SOLD: 2019 [facility] Levothyroxine Sodium 0.05 MG Oral Tablet Levothyroxine Sodiu m 08/23/2019 12:00:00 AM EDT ORAL completed [facility] ([facility]) 75 mcg 07/18/2019 12:00:00 AM EST tablet 30 TAKE ONE TABLET BY MOUTH EVERY DAY TAKE ONE TABLET BY MOUTH EVERY DAY SOLD: 07/18/2019 [facility] Levothyroxine Sodium 0.075 MG Oral Tablet Levothyroxine Sodi um 07/17/2019 12:00:00 AM EST ORAL completed [facility] ([facility]) 10 mg 05/17/2019 12:00:00 [...] 6 (six) hours as needed for Pain [facility] torsemide 10 MG Oral Tablet Torsemide 10 MG Oral Table t (DEMADEX) Torsemide 10 MG Oral Tablet (DEMADEX) 10 mg Oral aborted Take 10 mg by mouth daily [facility] Warfarin Sodium 2 MG Oral Tablet Warfarin Sodium 2 MG Oral Tablet (COUMADIN) Warfarin Sodium 2 MG Oral Tablet (COUMADIN) 2 mg Oral aborted Take 2 mg by mouth daily [facility] Insurance Providers Payer name Policy type / Coverage type Policy ID Covered republican ID Covered republican's relationship to stock Policy Stock Plan Information MEDICARE [id number] SP [id number] U00 AETNA [facility] [place] [id number] SP [id number] [employer] BENEFIT PLAN U [id number] Self [id number] MEDICARE A [id number] Self [id number] U00 AETNA [facility] [place] O [id number] S [id number] MEDICARE C [id number] S [id number] [employer] BENEFIT PLAN U [id number] Self [id number] [employer] BENEFIT PLAN U [id number] Self [id number] MEDICARE A [id number] Self [id number] A MEDICARE [id number] SP [id number] AETNA [facility] [place] [id number] SP [id number] MEDICARE [id number] SP [id number] A MEDICARE [id number] SP [id number] [place] Primary [id number] Self [id number] Mailhandlers/Foreign SVC Medigap Part B [id number] Self [id number] Mailhandlers/Foreign SVC Medigap Part B [id number] Self [id number] AETNA [facility] [place] [id number] SP [id number] [place] Primary [id number] Self [id number] AETNA [facility] [place] [id number] SP [id number] [place] Primary [id number] Self [id number] [place] Primary [id number] Self [id number] [employer] BENEFIT PLAN [id number] SP [id number] Aetna Medigap Part B [id number] Self [id number] [place] Primary [id number] Self [id number] [place] Primary [id number] Self [id number] [place] Primary [id number] Self [id number] [place] Primary [id number] Self [id number] Aetna Medigap Part B [id number] Self [id number] [place] Primary [id number] Self [id number] [place] Primary [id number] Self [id number] AETNA [facility] [place] [id number] SP [id number] [employer] BENEFIT PLAN [id number] SP [id number] Aetna Medigap Part B [id number] Self [id number] [place] Primary [id number] Self [id number] [place] Primary [id number] Self [id number] Mailhandlers/Foreign SVC Medigap Part B [id number] Self [id number] Aetna Medigap Part B [id number] Self [id number] [place] Primary [id number] Self [id number] [place] Primary [id number] Self [id number] [place] Primary [id number] Self [id number] Aetna Medigap Part B [id number] Self [id number] [place] Primary [id number] Self [id number] [facility] MAIL HANDLERS BENEF O [id number] S [id number] MEDICARE C [id number] S [id number] A [facility] C [id number] S [id number] [place] Primary [id number] Self [id number] Aetna Medigap Part B [id number] Self [id number] Medicare [place] Medicare Primary [id number] Self [id number] [facility] [id number] S [id number] [employer] BENEFIT PLAN [id number] SP [id number] Mailhandlers/Foreign SVC Medigap Part B Family Dep endent Mailhandlers/Foreign SVC Medigap Part B Self [place] Primary Self [employer] Self MAILHANDLERS BENEFIT PLAN [id number] SP [id number] MAILHANDLERS BENEFIT PLAN [id number] SP [id number] Aetna Medigap Part B Self [place] Medicare Primary Self [employer]IL[employer]ERS BENEFIT PLAN UNAVAILABLE UNAVAILABLE MEDICARE [id number] SP [id number] [facility] MAIL HANDLERS BENEF O [id number] S [id number] [employer]IL[employer] BENEFIT PLAN [id number] 2 [id number] 02 Problems, Conditions, and Diagnoses Code Display Name Description Problem Type Effective Dates Data Source(s) C22.9 Malignant neoplasm of liver, not specifi ed as primary or secondary Malignant neoplasm of liver, not specified as primary or secondary Diagnosis 05/30/2020 11:42:14 AM [facility] 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, except l obes and ventricles Malignant neoplasm of cerebrum, except lobes and ventricles Diagnosis 12/2020 10:30:26 AM [facility] K75.0 Abscess of liver Abscess of liver Diagnosis 05/10/2020 04 :42:22 AM [facility] R94.31 Abnormal electrocardiogram [ECG] [EKG] A bnormal electrocardiogram (ECG) (EKG) Diagnosis 05/10/2020 12:57:00 AM [facility] R50.9 Fever, unspecified Fever, unspecified Diagnosis 12:57:00 AM [facility] Z20.828 Contact with and (suspected) exposure to other viral communicable diseases Contact with and (suspected) exposure to other viral communicable diseases Diagnosis 05/10/2020 12:57:00 AM [facility] Liver abscess, septic Liver abscess, septic Diagnosis 05/10/2020 12:57:00 AM [facility] Surgeries/Procedures Procedure Description Date Indications Data Source(s) PATHOLOGY REPORT (OUTSIDE/HISTORICAL) PATHOLOGY REPORT (OUTSIDE /HISTORICAL) 06/02/2020 10:43 AM EST Cholangiocarcinoma 06/02/2020 10:43:00 AM [facility] Cholangiocarcinoma [facility] Cholangiocarcinoma MRI BRAIN BRAIN STEM W/O &W/CONTRAST MATERIAL MR BRAI N WITH AND WITHOUT CONTRAST [id number] STAT 05/17/2020 4:25 AM EST 05/17/2020 04:25:43 AM [facility] BLOOD COUNT COMPLETE AUTO&AUTO DIFRNTL WBC COUNT CBC AND DIFFER ENTIAL Routine 05/17/2020 3:45 AM EST 05/17/2020 03:45:00 AM [facility] PHOSPHORUS INORGANIC PHOSPHORUS LEVEL Routine 05/17/2020 3:[address] 05/17/2020 03:45:00 AM [facility] MAGNESIUM MAGNESIUM LEVEL Routine 05/17/2020 3:45 AM EST 05/17/2020 03:45:00 AM [facility] BASIC METABOLIC PANEL CALCIUM TOTAL BASIC METABOLIC PANEL Routi ne 05/17/2020 3:45 AM EST 05/17/2020 03:45:[address] [facility] CT THORAX W/CONTRAST MATERIAL CT THORAX WITH CONTRAST [id number] STA T 05/16/2020 12:26 PM EST 05/16/2020 12:26:[address] [facility] [address] ABDOMEN & PELVIS W/O CONTRST 1/> [facility] CT A BDOMEN PELVIS WITH AND WITHOUT CONTRAST [id number] STAT 05/16/2020 12:26 PM EST 05/16/2020 12:26:29 PM [facility] BLOOD COUNT COMPLETE AUTOMATED CBC AND DIFFERENTIAL Routine 05/16/2020 4:59 AM EST 05/16/2020 04:59:00 AM [facility] PHOSPHORUS INORGANIC PHOSPHORUS LEVEL Routine 05/16/2020 4:[address] 05/16/2020 04:59:00 AM [facility] MAGNESIUM MAGNESIUM LEVEL Routine 05/16/2020 4:59 AM EST 05/16/2020 04:59:00 AM [facility] BASIC METABOLIC PANEL CALCIUM TOTAL BASIC METABOLIC PANEL Routi ne 05/16/2020 4:59 AM EST 05/16/2020 04:59:00 AM [facility] BIOPSY LIVER NEEDLE PERCUTANEOUS IR IMAGE GUIDED NEEDLE DRAIN P ROCEDURE STAT 05/15/2020 11:05 AM EST 05/15/2020 11:05:45 AM [facility] CUL BACT XCPT URINE BLOOD/STOOL AEROBIC ISOL WOUND CULTURE Ro utine 05/15/2020 11:05 AM EST 05/15/2020 11:05:00 AM [facility] THROMBOPLASTIN TIME PARTIAL PLASMA/WHOLE BLOOD PARTIA L THROMBOPLASTIN TIME (PTT) Routine 05/15/2020 4:59 AM EST 05/15/2020 04:59 :00 AM [facility] PROTHROMBIN TIME PROTIME INR Routine 05/15/2020 4:59 AM EST 05/15/2020 04:59:00 AM [facility] BLOOD COUNT COMPLETE AUTO&AUTO DIFRNTL WBC COUNT CBC AND DIFFER ENTIAL Routine 05/15/2020 4:59 AM EST 05/15/2020 04:59:00 AM [facility] PHOSPHORUS INORGANIC PHOSPHORUS LEVEL Routine 05/15/2020 4:[address] 05/15/2020 04:59:00 AM [facility] MAGNESIUM MAGNESIUM LEVEL Routine 05/15/2020 4:59 AM EST 05/15/2020 04:59:00 AM [facility] BASIC METABOLIC PANEL CALCIUM TOTAL BASIC METABOLIC PANEL Routi ne 05/15/2020 4:59 AM EST 05/15/2020 04:59:00 AM [facility] BLOOD COUNT COMPLETE AUTO&AUTO DIFRNTL WBC COUNT CBC AND DIFFER ENTIAL Routine 05/14/2020 4:10 AM EST 05/14/2020 04:10:00 AM [facility] PHOSPHORUS INORGANIC PHOSPHORUS LEVEL Routine 05/14/2020 4:[address] 05/14/2020 04:10:00 AM [facility] MAGNESIUM MAGNESIUM LEVEL Routine 05/14/2020 4:10 AM EST 05/14/2020 04:10:00 AM [facility] BASIC METABOLIC PANEL CALCIUM TOTAL BASIC METABOLIC PANEL Routi ne 05/14/2020 4:10 AM EST 05/14/2020 04:10:00 AM [facility] XR CHEST FRONTAL ONLY 35616 XR CHEST FRONTAL ONLY [id number] Routine 05/13/2020 8:52 AM EST 05/13/2020 08:52:00 AM [facility] IMMUNOASSAY TUMOR ANTIGEN QUANTITATIVE CA 19-9 CANCER ANTIGEN 1 9-9 Routine 05/13/2020 2:50 AM EST 05/13/2020 02:50:00 AM [facility] ALPHA-FETOPROTEIN SERUM AFP TUMOR MARKER Routine 05/13/2020 2:50 A M EST 05/13/2020 02:50:00 AM [facility] BLOOD COUNT COMPLETE AUTO&AUTO DIFRNTL WBC COUNT CBC AND DIFFER ENTIAL Routine 05/13/2020 2:50 AM EST 05/13/2020 02:50:00 AM [facility] PHOSPHORUS INORGANIC PHOSPHORUS LEVEL Routine 05/13/2020 2:[address] 05/13/2020 02:50:00 AM [facility] MAGNESIUM MAGNESIUM LEVEL Routine 05/13/2020 2:50 AM EST 05/13/2020 02:50:00 AM [facility] CARCINOEMBRYONIC ANTIGEN CEA CEA Routine 05/13/2020 2:50 AM EST 05/13/2020 02:50:00 AM [facility] HEPATIC FUNCTION PANEL HEPATIC FUNCTION PANEL A Routine 05/13/2020 2:50 AM EST 05/13/2020 02:50:00 AM [facility] BASIC METABOLIC PANEL CALCIUM TOTAL BASIC METABOLIC PANEL Routi ne 05/13/2020 2:50 AM EST 05/13/2020 02:50:00 AM [facility] CUL BACT XCPT URINE BLOOD/STOOL AEROBIC ISOL WOUND CULTURE Ro utine 05/12/2020 7:26 PM EST 05/12/2020 07:26:00 PM [facility] BIOPSY LIVER NEEDLE PERCUTANEOUS IR IMAGE GUIDED NEEDLE MARQUITA IN PROCEDURE Routine 05/12/2020 6:59 PM EST 05/12/2020 06:59:55 PM [facility] BLOOD COUNT COMPLETE AUTO&AUTO DIFRNTL WBC COUNT CBC AND DIFFER ENTIAL Routine 05/12/2020 3:59 AM EST 05/12/2020 03:59:00 AM [facility] PHOSPHORUS INORGANIC PHOSPHORUS LEVEL Routine 05/12/2020 3:[address] 05/12/2020 03:59:00 AM [facility] MAGNESIUM MAGNESIUM LEVEL Routine 05/12/2020 3:59 AM EST 05/12/2020 03:59:00 AM [facility] HEPATIC FUNCTION PANEL HEPATIC FUNCTION PANEL A Routine 05/12/2020 3:59 AM EST 05/12/2020 03:59:00 AM [facility] BASIC METABOLIC PANEL CALCIUM TOTAL BASIC METABOLIC PANEL Routi ne 05/12/2020 3:59 AM EST 05/12/2020 03:59:00 AM [facility] LEVEL I SURG PATHOLOGY GROSS EXAMINATION ONLY SURGICA L PATHOLOGY EXAM ( ONLY) Routine 05/12/2020 12:00 AM EST 05/12/2020 12:00 :00 AM [facility] ULTRASOUND ABDOMINAL REAL TIME W/IMAGE LIMITED US ABDOMEN L IMITED [id number] Routine 05/11/2020 10:33 PM EST 05/11/2020 10:33:14 PM [facility] BLOOD COUNT COMPLETE AUTO&AUTO DIFRNTL WBC COUNT CBC AND DIFFER ENTIAL Routine 05/11/2020 7:35 AM EST 05/11/2020 07:35:00 AM [facility] PHOSPHORUS INORGANIC PHOSPHORUS LEVEL Routine 05/11/2020 7:[address] 05/11/2020 07:35:00 AM [facility] MAGNESIUM MAGNESIUM LEVEL Routine 05/11/2020 7:35 AM EST 05/11/2020 07:35:00 AM [facility] HOMOCYSTEINE HOMOCYSTEINE, SERUM Routine 05/11/2020 7:35 AM EST 05/11/2020 07:35:00 AM [facility] HEPATIC FUNCTION PANEL HEPATIC FUNCTION PANEL A Routine 05/11/2020 7:35 AM EST 05/11/2020 07:35:00 AM [facility] BASIC METABOLIC PANEL CALCIUM TOTAL BASIC METABOLIC PANEL Routi ne 05/11/2020 7:35 AM EST 05/11/2020 07:35:00 AM [facility] HEPATITIS C ANTIBODY HEPATITIS C ANTIBODY Routine 05/10/2020 12:31 PM EST 05/10/2020 12:31:00 PM [facility] URNLS DIP STICK/TABLET REAGENT AUTO MICROSCOPY URINALYSIS W ITH MICROSCOPIC CODE 05/10/2020 4:37 AM EST 05/10/2020 04:37:00 AM [facility] EKG ED PHYSICIAN INTERPRETATION EKG ED PHYSICIAN INTERPRETATION Routine 05/10/2020 3:08 AM EST 05/10/2020 03:08:30 AM [facility] BLOOD GASES ANY COMBINATION PH PCO2 PO2 CO2 HCO3 POCT ISTAT VBG /LAC Routine 05/10/2020 3:01 AM EST 05/10/2020 03:01:00 AM [facility] TROPONIN QUANTITATIVE POCT ISTAT TROPONIN Routine 05/10/2020 2:57 AM EST 05/10/2020 02:57:00 AM [facility] BASIC METABOLIC PANEL CALCIUM IONIZED POCT ISTAT CHEM8 Routine 05/10/2020 2:54 AM EST 05/10/2020 02:54:00 AM [facility] RESPIRATORY PATHOGEN PANEL RESPIRATORY PATHOGEN PANEL Routine 05/10/2020 2:48 AM EST 05/10/2020 02:48:00 AM [facility] COVID-19 PCR COVID-19 PCR Routine 05/10/2020 2:48 AM EST 05/10/2020 02:48:00 AM [facility] THROMBOPLASTIN TIME PARTIAL PLASMA/WHOLE BLOOD PARTIA L THROMBOPLASTIN TIME (PTT) Routine 05/10/2020 2:48 AM EST 05/10/2020 02:48 :00 AM [facility] NATRIURETIC PEPTIDE PROBNP Routine 05/10/2020 2:48 AM EST 05/10/2020 02:48:00 AM [facility] ANTIBODY ID RBC ANTIBODIES EA PANEL EA SERUM TQ ANTIBODY ID ENTIFICATION Routine 05/10/2020 2:48 AM EST 05/10/2020 02:48:00 AM [facility] CULTURE BACTERIAL BLOOD AEROBIC W/ID ISOLATES BLOOD CULTURE R outine 05/10/2020 2:48 AM EST 05/10/2020 02:48:00 AM [facility] CULTURE BACTERIAL BLOOD AEROBIC W/ID ISOLATES BLOOD CULTURE R outine 05/10/2020 2:48 AM EST 05/10/2020 02:48:00 AM [facility] PROTHROMBIN TIME PROTIME INR Routine 05/10/2020 2:48 AM EST 05/10/2020 02:48:00 AM [facility] BLOOD COUNT COMPLETE AUTO&AUTO DIFRNTL WBC COUNT CBC AND DIFFER ENTIAL Routine 05/10/2020 2:48 AM EST 05/10/2020 02:48:00 AM [facility] BLOOD TYPING ABO TYPE AND SCREEN STAT 05/10/2020 2:48 AM EST 05/10/2020 02:48:00 AM [facility] TROPONIN QUANTITATIVE TROPONIN T CODE 05/10/2020 2:48 AM EST 05/10/2020 02:48:00 AM [facility] THYROID STIMULATING HORMONE TSH TSH Routine 05/10/2020 2:48 AM EST 05/10/2020 02:48:00 AM [facility] PHOSPHORUS INORGANIC PHOSPHORUS LEVEL Routine 05/10/2020 2:[address] 05/10/2020 02:48:00 AM [facility] MAGNESIUM MAGNESIUM LEVEL Routine 05/10/2020 2:48 AM EST 05/10/2020 02:48:00 AM [facility] LIPASE LIPASE LEVEL Routine 05/10/2020 2:48 AM EST 05/10/2020 02:48:00 AM [facility] LACTATE LACTIC ACID LEVEL, PLASMA CODE 05/10/2020 2:48 AM EST 05/10/2020 02:48:00 AM [facility] HEPATIC FUNCTION PANEL HEPATIC FUNCTION PANEL A CODE 0 2:48 AM EST 05/10/2020 02:48:00 AM [facility] BASIC METABOLIC PANEL CALCIUM TOTAL BASIC METABOLIC PANEL CODE 05/10/2020 2:48 AM EST 05/10/2020 02:48:00 AM EST [facility] EKG 12-LEAD - CMAXX REPORT EKG 12-LEAD - CMAXX REPORT 05/10/2020 2:41 AM EST 05/10/2020 02:41:18 AM [facility] EKG 12-LEAD - CMAXX REPORT EKG 12-LEAD - CMAXX REPORT 05/10/2020 2:41 AM EST 05/10/2020 02:41:18 AM [facility] EKG 12-LEAD EKG 12-LEAD STAT 05/10/2020 2:41 AM EST 05/10/2020 02:41:18 AM [facility] Capillary Blood Collection Finger, Heel, Ear Stick [...] Oral Administration 11/20/2019 12:00:00 AM EDT [facility] ([facility]) THERAPEUTIC PX 1/> AREAS EACH 15 MIN EXERCISES 019 12:00:00 AM EST [facility] ([facility]) Results ID Date Data Source [id number] 06/08/2020 06:15:08 PM [facility] Name Value Range Interpretation Code Description Data Vicky rce(s) Supporting Document(s) Progress Note [facility] EDQYSp5cEhWKZxLa67/JZYpcADLdl2JkQNwiTWs6JXmvFAMhY4OhVZV0vU7zVZL6UQrBMnHgQmCoZEM9 lbm [file] ICAgICAgICAgICAgICAgICAgICAgICAgICAgICAgICAgICAgICAgICAgICAgICAgICAgICAgICAgICAg ICAgICAgICAgICAgICAgICAgICAgICAgICAgICAgICAgICANCiAgICAgICAgICAgICAgICAgICAgICAg ICAgICAgICAgICAgICAgICAgICAgICAgICAgICAgIC AgICAgICAgICAgICAgICAgICAgICAgICAgICAgICAgICAgICAgICAgICAgICANCiAgICAgICAgICAgIC AgICAgICAgICAgICAgICAgICAgICAgICAgICAgICAgICAgICAgICAgICAgICAgICAgICAgICAgICAgIC AgICAgICAgICAgICAgICAgICAgICAgICAgICANCiAg ICAgICAgICAgICAgICAgICAgICAgICAgICAgICAgICAgICAgICAgICAgICAgICAgICAgICAgICAgICAg ICAgICAgICAgICAgICAgICAgICAgICAgICAgICAgICAgICAgICANCiAgICAgICAgICAgICAgICAgICAg ICAgICAgICAgICAgICAgICAgICAgICAgICAgICAgIC AgICAgICAgICAgICAgICAgICAgICAgICAgICAgICAgICAgICAgICAgICAgICAgICANCiAgICAgICAgIC AgICAgICAgICAgICAgICAgICAgICAgICAgICAgICAgICAgICAgICAgICAgICAgICAgICAgICAgICAgIC AgICAgICAgICAgICAgICAgICAgICAgICAgICAgICAN CiAgICAgICAgICAgICAgICAgICAgICAgICAgICAgICAgICAgICAgICAgICAgICAgICAgICAgICAgICAg ICAgICAgICAgICAgICAgICAgICAgICAgICAgICAgICAgICAgICAgICANCiAgICAgICAgICAgICAgICAg ICAgICAgICAgICAgICAgICAgICAgICAgICAgICAgIC AgICAgICAgICAgICAgICAgICAgICAgICAgICAgICAgICAgICAgICAgICAgICAgICAgICANCiAgICAgIC AgICAgICAgICAgICAgICAgICAgICAgICAgICAgICAgICAgICAgICAgICAgICAgICAgICAgICAgICAgIC AgICAgICAgICAgICAgICAgICAgICAgICAgICAgICAg ICANCiAgICAgICAgICAgICAgICAgICAgICAgICAgICAgICAgICAgICAgICAgICAgICAgICAgICAgICAg ICAgICAgICAgICAgICAgICAgICAgICAgICAgICAgICAgICAgICAgICAgICANCjw/iHVfI8zorDReenK8 V5gjFh1CQh7BLL6sj3TaLHSnSTrjmlVfUlvUJdZhPI JjQylILtf4HOdtEQ4GqPLzA1OwW8XxXAwcIH9STTFoYLLllJTrSSBlSNElBxM5VQAgBFiuWS1EqDVbPA puKESpXYUfSwUwKNWzRHCrXYIiRLMhMENYBR8SRvOvQ3FymU07TTYBJr4+JAgwctAdHuiLKfP7DDTpe2 UqHMp3PI9RNSJsDpleq6TiAombPCKOQZioUH1RGZJ4 DFK1VPFiKl8YZJAcH529xhBfJU4KAy8YLkPrQD0jxk6CXeamRBYvBndTIvy9SUydMB5ZjQTtHSyFux9y heRlixHCo6DgpxKtuECGrUreUCTBWKMzDAIoDU1HKOS8IXInWL8qKETfKIMsZuHhJLXCZS2JJWHsGFNo zLMzJSQpDQUGKO3OHVphTUI5CDYrjtOzdIYfUKvtVQ 9QYXJlbnQgMjggMCBSDQo+Rb6AZY8es6OjUOijEJDkQQ7jgr9QDQqOCvTiI1P3zIZvB6L6BLeiRp7NXE SqNELsDnMoVRZOTIwpHZ8ONR7mzyE2VW5HkEJlYGOsWQHloORlACd6V07pmZTvXWxjIU3THWF+Alida+Pg 7LMCIjXCWzLWBsYoHqBPOTXlImI9AbC6VNi0CqP6Vy ED99aHyxdsWmFWyzZL4UGW0bYQNiTQRXJI7CdWYcsI3owpCeFKYtDQOSCxZwL56huXMbJNCfKOJ6PZOi Ot1TAAItI7LntrPyzQtgtcFsWVAeCLEWGJ8HMTvpnsVbmQPzpDqgHT52mDwnMD4KIf8CFqFkPX9wlz8R sJZuXy7NNVNwDX0IADXzJWOdXUIvSUD5GUUlOwDzQP lfMRExSRPlCUV8WTDuSYUaDF2GXzJgVETbXhdxEIlfFRMiZJSnjd2FSCZcPTPpCDI0YAHfUSMsSSZaPH yoAEEyRHCmVWH4UCTfRXUoGH4CTtQoCFJuNVSfLExtKQCkMREhrr1YILPpKQHuCQNgNwTkRSPqCPOyAF ojFBWbNPI3Brp6VWSqBVOqNQ1AScBjLMNbGEn2Ycym EROoAUVuhj9THSViTHCkKPRkJSGsPIEyWJBvTZjjIZEmFPDrFqB7YUUpNGKkDT3FZcBkQJJwOUM6UxFf XRUwRVGely2UJCEiUZQfFfmoRKMxMXVqOLAhZHpuXXAaBYCpSVj0YWIjCEQbMC2RMeSiMQOxTCTjIARg IBNyFJOibj8DQTDvICLcBMV3OAGqCORjHRQhUQyyDO GoSCX2GlN4MHEeZNUdJS8ZJgFrXGIxIDX3JgvhJLIwXPAutm6COCKnDYCoEBFmOwHmHMUfQJVnXLdrAM UdFIQ3TVB0CCCeHLKoMX6BJaMvWEAxVtimCOYxTQHwYRYuot2OHGYePKYrRoD8SFKdLWNtLLKrRMajDT QsELS3QPFaUQPoIGUwYU7AXzPuKOWxTud2KMxpQCNa LIDzin5OTRMmUBVaSXvtVXOyWBLaMBXfJJdrWXFoEHN9IDR1FZVySKUfYI0QPpPsAIRcIlumCDrtHQRz ZDIbkg1EMTWmYCXxVVakSZXkGDByCJJsAPfnCPXnGJQjUUkkJCXeGKKsQO1NWpSoYUMrYjNaDOOiMRHb QZLarh7TVAMoVUXeSJZ2AFIkUTSxFGUkPXl8iuHhcG DaXHk4PQ4EO7CafhCmDbRIJq6Qv366RGVfHUBhQl8RR9paVi5bIGOnLVDUZy3UOPl1NCvnDTBrWyL1Kt LgBPJyIDS5YrTqFeDnVAB2SXSdWJW+QHu4O5P8KzReCRi4BVSpKYFvIjT2VxKiCyX4GXRbJXZrEL1sPL ANCj4+UDmqtKRifVqqPDTVOqJhEqDuNKpeDKFYZw4Z ID Date Data Source [id number] 06/06/2020 11:06:59 AM [facility] Name Value Range Interpretation Code Description Data Vicky rce(s) Supporting Document(s) Leukocytes [#/volume] in Blood by Automated count 22.9 10*3/uL 4-10 H [facility] Erythrocytes [#/volume] in Blood by Automated count 3.90 10*6/uL 4.1- 5.3 L [facility] Hemoglobin [Mass/volume] in Blood 9.3 g/dL 11.5-15.5 L [facility] Hematocrit [Volume Fraction] of Blood by Automated count 29.9 % 3 6-45 L [facility] Erythrocyte mean corpuscular volume [Entitic volume] by Auto mated count 76.6 fL 80-96 L [facility] Erythrocyte mean corpuscular hemoglobin [Entitic mass] by Automated count 23.9 pg 27-33 L [facility] Erythrocyte mean corpuscular hemoglobin concentration [Mass/volume] by Automated count 31.2 g/dL 32.0-[facility] distribution width [Ratio] by Automated count 18.9 % 11.5-14.5 H [facility] Platelets [#/volume] in Blood by Automated count 211 10*3/uL 150-400 [facility] Differential cell count method - Blood [facility] Neutrophils/100 leukocytes in Blood by Automated count 84 % [facility] Lymphocytes/100 leukocytes in Blood by Automated count 6 % [facility] Monocytes/100 leukocytes in Blood by Automated count 7 % [facility] Neutrophils [#/volume] in Blood by Automated count 19.24 10*3/uL 1.8- 7.0 H [facility] Lymphocytes [#/volume] in Blood by Automated count 1.37 10*3/uL 1.2-4 .0 [facility] Monocytes [#/volume] in Blood by Automated count 1.60 10*3/uL 0-0.8 H [facility] Band form neutrophils/100 leukocytes in Blood by Manual count 2 % [facility] Metamyelocytes/100 leukocytes in Blood by Manual count 1 % [facility] Band form neutrophils [#/volume] in Blood by Manual count 0.46 10*3 /uL 0-0.6 [facility] Metamyelocytes [#/volume] in Blood by Manual count 0.23 10*3/uL 0-0 H [facility] Anisocytosis [Presence] in Blood by Light microscopy [facility] ID Date Data Source [id number] 06/06/2020 11:08:06 AM [facility] Name Value Range Interpretation Code Description Data Vicky rce(s) Supporting Document(s) Albumin [Mass/volume] in Serum or Plasma by Bromocresol green (BCG) dye binding method 2.4 g/dL 3.5-5.2 [facility] Bilirubin.total [Mass/volume] in Serum or Plasma 0.5 mg/dL <1.2 [facility] Calcium [Mass/volume] in Serum or Plasma 8.8 mg/dL 8.8-10.2 [facility] Chloride [Moles/volume] in Serum or Plasma 99 mmol/L 98-107 [facility] Creatinine [Mass/volume] in Serum or Plasma 1.05 mg/dL 0.50-0.90 [facility] Glucose [Mass/volume] in Serum or Plasma 145 mg/dL 70-140 [facility] Alkaline phosphatase [Enzymatic activity/volume] in Serum or Plasma 169 U/L 35-104 H [facility] Potassium [Moles/volume] in Serum or Plasma 4.8 mmol/L 3.4-5.1 [facility] Hemolyzed Protein [Mass/volume] in Serum or Plasma 6.8 g/dL 6.4-8.3 [facility] Sodium [Moles/volume] in Serum or Plasma 128 mmol/L 136-145 L [facility] Aspartate aminotransferase [Enzymatic activity/volume] in Serum or Plasma 28 U/L <32 [facility] Hemolyzed Urea nitrogen [Mass/volume] in Serum or Plasma 12 mg/dL 8-23 [facility] Osmolality of Serum or Plasma by calculation 268 mosm/kg 275-300 L [facility] Creatinine/Urea nitrogen [Mass Ratio] in Serum or Plasma 11 [facility] Bicarbonate [Moles/volume] in Serum 17 mmol/L 22-29 L [facility] Alanine aminotransferase [Enzymatic activity/volume] in Seru m or Plasma 14 U/L <33 [facility] Hemolyzed Anion gap 3 in Serum or Plasma 12 mmol/L 8-15 [facility] Glomerular filtration rate/1.73 sq M pre dicted among non-blacks [Volume Rate/Area] in Serum or Plasma by Creatinine-based formula (MDRD) 52 mL/min/1.73m2 >60 L [facility] Glomerular filtration rate/1.73 sq M pre dicted among blacks [Volume Rate/Area] in Serum or Plasma by Creatinine-based formula (MDRD) 60 mL/min/1.73m2 >60 L [facility] ID Date Data Source [id number] 06/06/2020 11:08:06 AM [facility] Name Value Range Interpretation Code Description Data Vicky rce(s) Supporting Document(s) Magnesium [Mass/volume] in Serum or Plasma 1.8 mg/dL 1.6-2.4 [facility] ID Date Data Source [id number] 06/06/2020 01:19:[address] [facility] Value Range Interpretation Code Description Data Vicky rce(s) Supporting Document(s) Carcinoembryonic Ag [Mass/volume] in Serum or Plasma 45.6 ng/ml <3.4 H [facility] Levels of CEA should not be interpreted as absoulute evidence of the presence or absence of disease. It should not be used as a screening test for Cancer. CEA values obtained using different methodologies cannot be used interchangeably. This method is manufactured by [employer] and is an electrochemiluminesence immunoassay. ID Date Data Source [id number] 06/06/2020 04:05:13 PM [facility] Name Value Range Interpretation Code Description Data Vicky rce(s) Supporting Document(s) Cancer Ag 19-9 [Units/volume] in Serum or Plasma 13847 U/mL <35 H [facility] ConfirmedThis test uses [employer] CA 19-9 el ectrochemiluminescent immunoassay. Results obtained with different test methods or kits cannot be used interchangeably. CA 19-9 is useful in monitoring pancreatic, hepatobiliary, gastric, hepatocelllular, and colorectal cancer. CA 19-9 value regardless of level, should not be interpreted as absolute evidence of the presence or absence of malignant disease. ID Date Data Source [id number] 06/03/2020 01:40:50 PM [facility] Name Value Range Interpretation Code Description Data Vicyk rce(s) Supporting Document(s) Progress Note [facility] OCRLRp4iFpEVFsSi25/DBCxhURSfz5GtJLjeJSq9EEbjVKCkO5HfUHC4eU4jAXV7UBmJExWyKjIgECDs lbm [file] AgICAgICAgICAgICAgICAgICAgICAgICAgICAgICAgICAgICAgICAgICAgICAgICAgICAgICAgICAgIC XmQXQfCJRzEBNnKBCjSWBvELDhSIAzBS0CZKVnIUOlEYXyWPRgGLAeBWBzAZKyPOVpADVmQOOxBZEgRF AgICAgICAgICAgICAgICAgICAgICAgICAgICAgICAg HOXbTPKfAHWcBNMlGJTtPUGjNICpZOZpEDDoJVLyFDBmQV4XFGUoSMHzFNLiBHBeULKwUDUuZLNaKGZd ICAgICAgICAgICAgICAgICAgICAgICAgICAgICAgICAgICAgICAgICAgICAgICAgICAgICAgICAgICAg HGBvDJQsOBVgNKZwAANnKE2CSOVtDHUnCZLaTCHtJQ AgICAgICAgICAgICAgICAgICAgICAgICAgICAgICAgICAgICAgICAgICAgICAgICAgICAgICAgICAgIC KnIEQhELMwGAHsBHJmVABuMTYdUAFbEZZxGV6XRBRdNEEmKUIuTBVdQVAuNAErUNKcMHBnEMIyOWSvXS AgICAgICAgICAgICAgICAgICAgICAgICAgICAgICAg WPSkASDkNKExIDGeZKOuNVEcALLzAHWiXLOuJNRwCLFeHMHxAB6VBFUpBTOaSXJbJSTtSKAmLVBmPBUz ICAgICAgICAgICAgICAgICAgICAgICAgICAgICAgICAgICAgICAgICAgICAgICAgICAgICAgICAgICAg XQUxWXSpLLCzLKLhDJQaIHIhPZ6AYMIfMFEhCEMoTP AgICAgICAgICAgICAgICAgICAgICAgICAgICAgICAgICAgICAgICAgICAgICAgICAgICAgICAgICAgIC PrOQScJFQoRSOiVJYkZCQbEIYyHCYaEHKiOIVjKX5VFPUzLWCsNRWzWXXkLWSjIMSyQOVwGJBlIUOpOR AgICAgICAgICAgICAgICAgICAgICAgICAgICAgICAg HOLpWAReSRAuTIIbHZTjBMLiIDAvTWGkXFJfPNItUNLtUCIkLOUyVH9VDCPlQTGnCNDuFOGdFTUjXCSk ICAgICAgICAgICAgICAgICAgICAgICAgICAgICAgICAgICAgICAgICAgICAgICAgICAgICAgICAgICAg JWRhWYFyYRNiRBHaWXPfBLRzLKAsEG7TGXIcIEEfZS AgICAgICAgICAgICAgICAgICAgICAgICAgICAgICAgICAgICAgICAgICAgICAgICAgICAgICAgICAgIC JgQKViBBAmSKAfBAUgOCBxUIYyZFNjRHTsHMJwQZUbKJ7EGT48vWIjo6J4GPOqTT0ahjg/Ed6BNOxbsc GndPNyBD3LBkFkQT8qwc6ZJbLsGO5nkq2VGNfYViKp T1G9jJLtIOFgRIAZXxKlD27nXKekDm19ESpxIPDaNtKuZRc9Ob3FJaDzY5pqVSWdWnF8ZLVpLrW2UVTv SaQbCClpQH4Fk8TffHSaFZp+Jv5KWE5ly2XcDTarGBCeAL4twe7YIAjNXaCuB7BsrcH0RGW1BFLePt4J QZEaUCMxvWJbVOZwRABXMxYwJ6XdeN49WQEFLl4+DQ vmzfXpPaaNRgZ6JWHkf8FlCYd2RH9JLZZoGYh8oALpUONwW8Dyu1NpCx50MEAjCrhmWAl4KVylHOVdt1 OaXQuiDKDtKBUaLC6nDe4wIWBkCWDoNzJ3JTSPFC2PCYRaYSDpeQPoUGLtJGXIYA6ODDpjZJT9UTIete RgqTOhKLmqTY8ZHNGcsgOzEgEtQDZJYUq+Tk1ICV4h d1KaGClyZwXpUB2jit8TGGtIUoDcZ7I4sYVgQ5N6UPdfYq4TJNOxOGAkMlBhZPZXHAtdPG4GRG5pnxE0 HE5ZkDPhXUJvCMPqoOGfUCa5O37ncPVaRRmaQJ9YBJT+Alida+Wd1HFNWyNJPnPTQtAtTlKPFQJqDuY1Ol L9QZm8SkS2FfOQ44nHypoqMrOKphPM6HMI2nBZZjBV DXLA1LeHAtcC6wxfFwSIPtOLIALwGtO21inEGqVVXcYQSqOVQeKa6QCDKuG7ZoyqYvsUukaqRkVCZmYV PXGJ2PYIeltsZneLHawOlnAQ52vZnmGR8ESi4EQbMcBL8uxb9WfTTwUv9PTYEcBv7NVZZlOJJaLDNkHB T6EGWrShNeGUygSHXlCFErRAO6ABMyGYKlFR2ADnDy XSTaOzV6AIVxXIKxYAYsks1ODVNaSUAzZfWdQETyFMIaZWEaOAaoHMCeKMJuZZT8IZGjFKChFJ2TFaUp JGYcWRT2BvDxWRWcINWvvk2SZTTpIWVgZowgEPWxLPFbLCJoOOkuDFWqYFV0Smr3CGEePQYaIM3ETpOo WOFoSFL0TYcrCGJnCYIbkb9FCSGzRMXbKzF6YRUpQK YyNWHpXWyaVZUlGQW7JzZ2UKGwQPQoTO0PWxVwYRTnZQZ6RrAyXWEfCNAeeg4MVYQuHSBdQsd1XEExMS BoJRIpDXgtIUWoXNY8GCq8WXQrUQLtFL1BWwCbQOIxKDnlQKHcREYzRBFvnt3OIQGpQHXhSZEfXCZnGP AjMJPdKKrsEGXtLHD4EQN8ZDFoSDFaOB3QNqUbBGFg ViSzNrOuQNYmEPLgfz4MOCOpIKBcGCSvFPGxBTJfEBXnKTaeHIGpPAMxOOAiBENhUZBmCR0WVtSbLFCt HfA5UHMeBSMqLKKhrd8GXDSpSDFaORR3WTFeUSOoBWTgETghXUIoPJUsEVUqDMMiZLPhVO5JShLhDIZv LqTxYxsmXBAkAVLmzu1HNZFqYYImOfcgEqVfFEDeWR YcGNezJPHjUADaDej2DGFfZPZpFA3YNyLeGBCxAbA7OYBiUDOaAGZlel3LzURlzNcmkt1EQOtCNf8JdP hwSUS0CTvoPm4sqPKoIvGhUEQKJy3ImyHsHFOlLQOGTSnqDLZfVMOtLEJ4UsB6GuA3WuPqZcUdSGe1Ec HvY4TyPOL8DXS3KwA2DEQ7MvR7FPKaTmAqIkL3YTZ7 JCxrUEZfOXZuTpi2WvO+BQ6oXNs+Ia6Jd3GaofD2gzCiVRyqIID2Va8XUGYXJ3BWMn== ID Date Data Source [id number] 06/02/2020 12:07:08 PM [facility] Name Value Range Interpretation Code Description Data Vicky rce(s) Supporting Document(s) Progress Note [facility] IIAVSd3oSzHBZbAb88/VNAtuOPUtk9MtKAhzJAd2QHehJWIkU6YyFFR5gQ1mFQG7OVlEOtOcFnGiPPGf lbm [file] 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 manager/BvjqtymmQP6GOgRwIy7NOJe500D3yX1GtaTSFZBs/p+HB2grSaYYPEbNlaL6gUKYf6Onl3jw7fjg [file] 0S26AYUb/TiID+CD+BA+Loraine+ZA3dhdxN/TpXpY/gN/CY+lrrrKJ2Jm1Uv9qxx8/hNAl0O3EG3Dp/maría/C7 +Bw+ijpSrSG0Gw+gOvZF/D5H7EM4orbVkkO/xJelRE nLuawhFpdMf0BNGN4SEe+y7tjXdbkTjP9uzpE34YOhWJzdTjunTY7yEEcwisHqeYUBWRR7vQ0CpNfxqC 0S4gfLpDjP8224Os5FU+Z7LjpanzBErJEbWIUbis4z7FoSrzewitAAM2SwfPV8iAq7qLPGQfED7SsQkV 45jjjz5UTr4YALoKUfCbW7ENiQ0nv8YtEThWWPWAiU Yil7brCSOT8MkOWek5Elm4hHBmSbt7LTTPqDQnCz4vZjzW93vkH7gwadApcF3IOGTYbDOFOGZTWJTuF5 rrgrPWXiVOFvimsm7fcgDrlmxsygwGfuoLGPVymteFXgUChSWE5NE1pvwsy3KAEwG7Jy6XnoghamuZdm 69FiCIxV5mGbzbgIxjuiEZ6fYhGlKaV0dVjyvJxwJA lb53yGvzoB26lhWoWzwmJCwnFNUaCRpCfWqu2rRMtosEdgBQhOMBexWQwfSWlNwy3lix1Fdhake0qe3c SPSKwaabflTTjtTW+MHXCyXMSKXQylb7B8tFUTWwmxSUGgCTL3EYMMSncHEPEL8xmsSdjs399SAXEUeb [file] FFCeOZe2R9E+EA6jKUh+Pi5Rr4QnglF0cdLcQEa1PMvbVw9GFAVVA3PPDm== ID Date Data Source [id number] 05/31/2020 07:49:00 AM EST [facility] Name Value Range Interpretation Code Description Data Vicky rce(s) Supporting Document(s) SARS coronavirus 2 RNA [Presence] in Res piratory specimen by SHAWNA with probe detection POSITIVE [facility] This lab was ordered by [facility] a nd reported by [facility]. ID Date Data Source [id number] 05/29/2020 12:36:34 PM EST [facility] Name Value Range Interpretation Code Description Data Vicky rce(s) Supporting Document(s) Progress Note [facility] OCVWDa3fQsPCBjGd38/KWPvwUQUjp0YmUVznHUd8CTlyILNjQ1CgGWC5lO5bKAJ9XFzVWpYbTgYzXYU5 lbm [file] 4+SQnyzFVqlLrbRAJJReMfUHtsXAtmDYUIYx0S ID Date Data Source [id number] 05/22/2020 12:29:02 PM [facility] Name Value Range Interpretation Code Description Data V[facility]) Supporting Document(s) History and Physical [facility] CYGHOp9fNwESHiHs75/OIQchXRFfh6GiQSuqRCy3LGekZXMrQ8LkUXN9qN7hWPD9XLzNYeMyCySxGoOw lbm [file] MtOnECHRAaAaYC7KWRv= ID Date Data Source [id number] 05/17/2020 06:43:10 PM EST [facility] Name Value Range Interpretation Code Description Data Vicky rce(s) Supporting Document(s) Discharge Summary [facility] FUPSQh1bFxGOArZd38/BDRmfARUih5YnMMwsBVa0FUrbIZTyO1FrIGR0jM7vDPE0REgRFeOlViJeOgB2 lbm [file] AgICAgICAgICAgICAgICAgICAgICAgICAgICAgICAg ICAgICAgICAgICAgICAgICAgICAgICAgICAgICANCiAgICAgICAgICAgICAgICAgICAgICAgICAgICAg ICAgICAgICAgICAgICAgICAgICAgICAgICAgICAgICAgICAgICAgICAgICAgICAgICAgICAgICAgICAg ICAgICAgICAgICANCiAgICAgICAgICAgICAgICAgIC AgICAgICAgICAgICAgICAgICAgICAgICAgICAgICAgICAgICAgICAgICAgICAgICAgICAgICAgICAgIC AgICAgICAgICAgICAgICAgICAgICANCiAgICAgICAgICAgICAgICAgICAgICAgICAgICAgICAgICAgIC AgICAgICAgICAgICAgICAgICAgICAgICAgICAgICAg ICAgICAgICAgICAgICAgICAgICAgICAgICAgICAgICANCiAgICAgICAgICAgICAgICAgICAgICAgICAg ICAgICAgICAgICAgICAgICAgICAgICAgICAgICAgICAgICAgICAgICAgICAgICAgICAgICAgICAgICAg ICAgICAgICAgICAgICANCiAgICAgICAgICAgICAgIC AgICAgICAgICAgICAgICAgICAgICAgICAgICAgICAgICAgICAgICAgICAgICAgICAgICAgICAgICAgIC AgICAgICAgICAgICAgICAgICAgICAgICANCiAgICAgICAgICAgICAgICAgICAgICAgICAgICAgICAgIC AgICAgICAgICAgICAgICAgICAgICAgICAgICAgICAg ICAgICAgICAgICAgICAgICAgICAgICAgICAgICAgICAgICANCiAgICAgICAgICAgICAgICAgICAgICAg ICAgICAgICAgICAgICAgICAgICAgICAgICAgICAgICAgICAgICAgICAgICAgICAgICAgICAgICAgICAg ICAgICAgICAgICAgICAgICANCiAgICAgICAgICAgIC AgICAgICAgICAgICAgICAgICAgICAgICAgICAgICAgICAgICAgICAgICAgICAgICAgICAgICAgICAgIC AgICAgICAgICAgICAgICAgICAgICAgICAgICANCiAgICAgICAgICAgICAgICAgICAgICAgICAgICAgIC AgICAgICAgICAgICAgICAgICAgICAgICAgICAgICAg ICAgICAgICAgICAgICAgICAgICAgICAgICAgICAgICAgICAgICANCjw/xCNxR6zgiOAnqwA5K2cpZu9S Et4QYU2wo1FyMELkTVygtzMjTgfUJpLuYTMbWocMLgi6QBtsLU5QlDRqL9GdT8WjPAkcUI4QQIXlXHTd pRFfATAdLUKtXfQ9UUSgHJttUG1WhQDvNGqkLWDgLI WfZqDzJXKtOLGzTVByDLThZEMSUEAmHJCdScGvRYjkMV5Fh1HvqLA5QNe+Fr5MPA4yj2NcANskZHAbDB 7knr3JKXnWOcMxH1BfjeN3GAV8HVCkTq9INAYjXQIezIOrAWUoNWXDBhKsX2AlkB80HWEXNx0+DQplbm SoUriYOgB1IFDpt4NqKLz0DC5FUUJaZGs6bIQgXCar T0nrtxwqIMA4uE8wlemsQzsnU3LqhJHMPANpuC3JMOKyOO8OJYJ4JEMdYoQ5VpKqWyYgRJF1OWNxQI1z XNgrVC7VEQU9ARzgADKkIEZzW5sVTeCjTCCwAvNfiTwkRI5GGiTvE2NpscLjgWGvWNXeBTOSXs4+DQpl vfOyXuxFTbFkWCJts8DtNGm0PF1XGAVlJHomHM5DOK HmfO6kZIoyPI5BLdXhLwApLLPYLuMyS10ghJZyIDe0P2BqMnAvVGZoRousGYSfFRirXsFrDJSgFgAeEV ogID4+ID4+DLsfFN1ORQpqkxSwLGVlUq5YZGNlONOiFJ9sOKLhBONhW7J3hEolNXKQKlHbZ2jrsaqwNC 2cTLAqD970xLbllyNoREP4UBSoWo6KZZDaXBU3SDFi iLKkZishLCPWSAnlOQ5BaQNoHRK2tP4tYEukZDEoGWVfN7gLHrBbiPpdDN11qSduajSjcOGlHRt+Pg0K SB5bm6UrGOw7ykKrQKxnZIXbVEpwBONuVBXwMMWjMAO7JGJ8XJFMAmClSEAxMHPoQJqjMHNuEAMwhj0B IYWdYWZgRDG7PDNgQDSzMBSvPTokLVZcTVWdSWN6CW BtDHIiGR3TCbWaUHAzLNGgFBisIZEtVBDamw6CXYAyXPAsBEMrMnPqVGZiOYDoTMysSVNyEQJ6UCSbXC SwXFIwPW9CCvAzAVYjSDu5DHttTQJkOPUsdk4OFZOrCIDlDBGrYXQuZXHoRBJkCKxzZDWgBCMaBKT0DW FgHXLsQH8APbMkINRqCCY6MZznOTHoWUYqce9UKGNx IWFlRQI3WkYuVMGmCBAmLBoeZXOjKEG6KEO2KNXxXPJbGR6VYqOzSXXrMGP8WhdpDLGtTKDppd8WVEDo VNXsARX9XxTjXKVuWODuREnqBGFkVHU5QfHbGIKtDFYvLY7SYmXxKEPtFGB0IVBkFTLjMOHyuj6SQQCe RWCuGwb6SsHlOUHhINNsAEqcMBYzRYI7BWCtKGHsIY SgMY6VZpDoWNRoWLfvHLYsDFLqSCKmml7IQOVeGAOjBMXaImVgHXCwSERxPKmsNOJsTDR7VjytYYOlCN CyPP7AEqEoBZBhELe2XOtcKMQbZPFkgd4RNSBaWGEtEAT0IeAbYYGoQQWaOKjdXMCnPOPtJhMdACLzFD KtWB3JSoAoKXFiKpX4DxZdHIRrERWzqn7LIMXpGVVa WXTxRvFqWYPaYAKbHTxvZEEiBFZaDXA3TXUbAFGdXR9UYbSnFDZjPpC4MmZeTSWtVZAsaf8UBRKnNLBg KrQvEgOjAGQtEVAjHNqwSZFrDYLaMTS7XAEiSDSuYW8TDyTwLYhwZQGZWsc7WYhvL3f8DAHsSU2TW4Kd y5CyWdTuRTPYIFflSC5mufKzHHToQx8EG2aYDva9XN SrIXB6ZKPvYhYpQMGqVXC6AHY7RHyeSfW6XDTlYS0wMLg7NREjDJDkYRA8PyUfG2BlBVc1DpJrWlTqWi SzYFEgBzMqOJ9BVm4TXeL8AQA2oZJaHa3JKdZdCVgWZwNyRT8VEZt= ID Date Data Source [id number] 05/17/2020 05:11:30 PM EST [facility] Name Value Range Interpretation Code Description Data Vicky rce(s) Supporting Document(s) ED Provider Note [facility] UBAVOu5qQkOTRrNy56/YKDnrNEHsn9XqWYivORe2FEtgNGCwT7PeNSX0lC8tQJJ8ALfZFgVaVzQeBfE6 lbm [file] AgICAgICAgICAgICAgICAgICAgICAgICAgICAgICAgICAgICAgICAgICAgICAgICAgICAgICAgICAgIC AgICAgDQogICAgICAgICAgICAgICAgICAgICAgICAg ICAgICAgICAgICAgICAgICAgICAgICAgICAgICAgICAgICAgICAgICAgICAgICAgICAgICAgICAgICAg ICAgICAgICAgICAgICAgDQogICAgICAgICAgICAgICAgICAgICAgICAgICAgICAgICAgICAgICAgICAg ICAgICAgICAgICAgICAgICAgICAgICAgICAgICAgIC AgICAgICAgICAgICAgICAgICAgICAgICAgDQogICAgICAgICAgICAgICAgICAgICAgICAgICAgICAgIC AgICAgICAgICAgICAgICAgICAgICAgICAgICAgICAgICAgICAgICAgICAgICAgICAgICAgICAgICAgIC AgICAgICAgDQogICAgICAgICAgICAgICAgICAgICAg ICAgICAgICAgICAgICAgICAgICAgICAgICAgICAgICAgICAgICAgICAgICAgICAgICAgICAgICAgICAg ICAgICAgICAgICAgICAgICAgDQogICAgICAgICAgICAgICAgICAgICAgICAgICAgICAgICAgICAgICAg ICAgICAgICAgICAgICAgICAgICAgICAgICAgICAgIC AgICAgICAgICAgICAgICAgICAgICAgICAgICAgDQogICAgICAgICAgICAgICAgICAgICAgICAgICAgIC AgICAgICAgICAgICAgICAgICAgICAgICAgICAgICAgICAgICAgICAgICAgICAgICAgICAgICAgICAgIC AgICAgICAgICAgDQogICAgICAgICAgICAgICAgICAg ICAgICAgICAgICAgICAgICAgICAgICAgICAgICAgICAgICAgICAgICAgICAgICAgICAgICAgICAgICAg ICAgICAgICAgICAgICAgICAgICAgDQogICAgICAgICAgICAgICAgICAgICAgICAgICAgICAgICAgICAg ICAgICAgICAgICAgICAgICAgICAgICAgICAgICAgIC AgICAgICAgICAgICAgICAgICAgICAgICAgICAgICAgDQogICAgICAgICAgICAgICAgICAgICAgICAgIC AgICAgICAgICAgICAgICAgICAgICAgICAgICAgICAgICAgICAgICAgICAgICAgICAgICAgICAgICAgIC IuBSPeAHRoGSJvCQXgPTe4V9dgWVMgGQOzHK7cSTc8 Jz8+AOgXRlWoXFM2koBzoU3CNF4ls3XtJHhiBDYkb6WmXRd1MN6SOGBoCCimLV7RUPdsfb9DCJLqVKQi uFSFl3gvFcYaVFT9BAWdZwdyAV4YSWOlT1uudhQfSQWgFCRWPSmqLXJBUGblKVZTWZEkOSWtCfFqTdQw PNKjZBEdWRFXZSX5EZAhUkTcBNPxIWTaGuLpNDRRGH ZoINUyZnPgEKAbOEOuOwuhXEUTING3XOGvFhZeXBPfPZLiZrMzJYBMLDG4KDNwApEkKhJfMRJsTobxDL MZVO6QBaUmQ7BoiA42MBR6OOx+Kg9KIE5az7NcSKr7JyFcPI4ama3UDYmHSnPeA5EnpsS7YDL8MEEyAg 3EBOAjXVLvpHA3THMiUTXOFaQyZ0UkxT86SOYJCn3+ DPtjxtGtBunJNmN8DTMzo9WjJVb2RA5JFOFbPMm4kEQgFGPwHCUojarlAHBkCf48UWHrWbysGzYsNMEp YYXLUUNpCJTjUT3JGSW8INHlJnS1FbMfIcDxGYG0NIAmQO1iRCyyVP3ZWGB9TOtcOPKnWUCuH1qNYfAp LDuxVRHejOneBL2TUsOmV2OkpkEsxDK7MbSpKIQXQd DmC87ebEVuDSpuHAQFLFd+Nd6FFJ1aa8VvVVs7LHMhZR1rur5SEDjUOsWcW1SgkExlKZYDTQUlf5ApXJ NxCH7gqGRlIAH9LHMddKDdbJEzCeTXRKGtEBLKQKVzgQApSf8kMA2eCPMdBSAjJrAzXFMVUJ1IWQKqLU VpeEYaWFSjMFQhHeWtMCdoCOYeFtN2KG37rUylBY2O WXNoKHIoPH19SOG7WYFuVl9MOFQbWHEhyyX8UdVrSOBZJiGsT74jtWUeKPkzVTNJSFd+Gb3DVP6nr2Vo DFn6GKKuJF1bsa6HSBnKQoLvA7VlgPduTKMji4KfUNJwHTEsMhtxZsHnUZFwUiZGMS7bSL8nJKgZSAAT EbTtdUSsTv6fFJ0tPEZwEKWcKaA4MGYKAQ1GSIUkME NajLLdEGR6KOTgKqZiWVcoLECqMhE9II59nAwlPW3UXDOgGPQoXV50LWA4WLXeQd2DJYAhOUKgbmB4FA QtFABOKhVlG20ooSZsGtJvFPMLGCp+Qx1YJT8cu6VfWYi5BLCvVJ2vct1PYBhFPbReI7EuwByrKZTVWC CgdHAfTXQCt3RbfvQwkLDKkDddyOUYIJFsuhUuklWf kfwvTx0cQRAsJKYoECgrPsHeZEZcVQeuFmMFOIsCSnBrP5Owa9MyAsQuHBDyHJHsE5hLGnHzKZE0JhXt yYuaIR3PDsAoR7MvyfXjoEH6ZcAdLPIYRiBuX9DnJDMuLKylYGWHGCx+Eh7SNU7rf5HwOBt9FSGuIG1q ki2YDEwWUbSkA6D7oJOcW9Q0FDezKf7TVHAbZVWnML VcZVZTEMrfPA9UMU2jssN0PJ4FqZUcBFArDZTkqVVzILm1O25ciJYmOCwlWD1JMVQ+Alida+Hi4PHRClXB UeYQWsPqToWYZFYoPtR3GzC7OEn0FxN1StZY76yWrpnlKeITgvNX7GDD0hUSDkZQGHNS3WrRJjjZ8szw V0KwIsKCWQReAzI56plTVqOXTmVAW2TEMrWz6WSJZe S7WwhyAkoApzcmSgYXHdINAUHE8VONfisqBxhETtnGnsCQ40kSujEO2ZMi8LYjKmDJ8cqw5TtBIlUp7U FSX0Tw7FANOrIKXaRDBeUHY4YPXdIpWkGAplQYNoIHAjLKW2MTEuPCXlTE5PNrCgZFMgRjC0SkobRUPf QJMedx7IGMMmAHO4UGM2USFnBIWpABHgSLlqREOyWJ IlYNF1ONPdZQLuFI6YCrTvNNJjUSK4AkjcFALxPWZksz1BXODmEVMuXaVqKrLmCYHzDQVtKFtzIYXwKP Y1HLccHPFiJKAnCE4NBpLzMDBxXXFcQNYnDGDkZWGzke4HBYKdUCLxVIBsCXHcJQAnDCBoPOmhKSBmYS N8UfW0GEBnEBUgKQ1BAqDgRMZtYFN4GMZbXORxDAGs ki3VBSJlWGMuRxMgHcHwQKYsMUHeAGmpOTRtOHM9IPf4UAHfYCOlGC3VKxXcWRLwSCIxQTElAFIrGPKv qq3QHRPfQHKuZrHiCYHjYKXrPSCaWVbvUQUbSGI9VKB4FJYmVTSfTM8FSyYcPKMrWWa8VeYhJEWrFDXt md3SGSQdIQWwVOhcLoSoHTEkORVoBCfnNCFfASGgKK S0EOCdSGMfKU1NSuQqDKJfHqD5OzYvNAKmGUDjof1XOBYaGOZbOVO8EWUvBLBpGTMzVSdhSPMnAQA8Sj tmBLXuFRViAN8NWdZsHNGtDznkKoBcGKYqGVRanr0AGZBwHNEbOlA0UdFiLNLaESRbJJyoDPKdMQXlBK VfSOCrGAXxAZ9KIpJsFHEcZgB2JwjcAEKjGSOckg2T OQExGDJvPmLdVdDeOGAyELPbCWjmBOYbGUYpCFFnOFFcCSIdTG8VQrWaYLNhMrPsXBNbPWVwBUHwbm6V XPPjKKPxJoY5TcMuXVLpMCEaMYfxLJEfQYR3HiT5OGBcQTDhXD2PNeOrLOEwAhw0FNQaPLSaNCXidx3J NOQsNIM0TPe4MBUcFTOaPKPbAOidKPYyXHQkWPg3GC TdULIuPC6YAgKpSLUgTHGjYGlgJVSeOTGueu9LPSVeEII9FfArFkXiVSHpPDUfZYsvLZIwDAJ7VdI9SD ZsZLYhEM5UWaXkBYOdPQA8OmIiIRWaIEQamt3HIRQsIIE6SnDiSYHdSGYtRXNfHWbaCKLkMYQ4ZIW6LL EgPKHdVY5QLkDgTXFpANprUUAgKMEtVIWynu3VNEAz FCM4UFU7BwUpDAQsHUXdYVltBGIgXEL2Vmt5GBFfYGQlXU0OOvFuQYDuPFh5EpOsLBXnAUNddt5FGBCg IBO4PWzfZlBkEDMeGODmNJviWSWbDBZjHVD1HRGsQZUpHA3OUyAuRMJmJfS8FMfcFPAwGSUnab1EQULy JJL3YFacEcNsLKRhGYBiBCveTVUrSKAjZZY1ORVlTE QkVQ6JVyOrGNWcLpWrAiDwXHMgQNWfsc7THAAsIQJ4WdLwGKHmCNKbRGXoZEfxGMQoLMJsCcF5LYMoUP NbRZ1DMhPeSOQbAyD3LQHwBPXzXNTgnv4RGUMjUKC1WrfnJbIlMQNqDUFtJUyzCOPmBZD6FJM9HZBvWC TvSO6ULmVwGGNeRkH2FFLcJSBlXKZqwf5XNELsZGI3 OPj4LNYuRKSoGELdWVwlXGKhWLP0EXYlOOUqCSCxBU0LVhYbSAZhDrWlBXCrOSNdZMTfou4WLDIfRLA6 ItY4XHBwDUHzEVQbLFpfZPDnLPS1MBtkWPDnBOUxZL9TTePlHKcrKPKQBrb5WWslX4c2HDH0Ug3IO7Xi k7LgDbOaFXUVSGygXS5vhdHySYYnQf7VW4kYShq3Ox R5ZZGvWVWzVeQ1LMDlMhFxEDh8EsNaXkNfBNGfZv4jYLQtXrpmTAV4P0BmCFK1BEVeZYIjVLusAAKcYx XsCcHdGwCiYS6LBs0FNoL9QDJ9mKNmGl3WCqC2BDUNUhAfNW2SQSw= ID Date Data Source [id number] 05/17/2020 11:46:28 [facility] MR BRAIN WITH AND WITHOUT CONTRAST [id number] FINAL RESULTInterpreted by:Tammie Lloyd MDINDICATION:74-year-old female, examine [...] Date Data Source [id number] 05/17/2020 04:52:13 AM [facility] Name Value Range Interpretation Code Description Data Vicky rce(s) Supporting Document(s) Leukocytes [#/volume] in Blood by Automated count 11.7 10*3/uL 4-10 [facility] Erythrocytes [#/volume] in Blood by Automated count 4.20 10*6/uL 4.1- 5.3 [facility] Hemoglobin [Mass/volume] in Blood 10.5 g/dL 11.5-15.5 [facility] Hematocrit [Volume Fraction] of Blood by Automated count 33.3 % 3 6-45 [facility] Erythrocyte mean corpuscular volume [Entitic volume] by Auto mated count 79.4 fL 80-96 [facility] Erythrocyte mean corpuscular hemoglobin [Entitic mass] by Automated count 25.1 pg 27-33 [facility] Erythrocyte mean corpuscular hemoglobin concentration [Mass/volume] by Automated count 31.6 g/dL [facility].0[facility] width [Ratio] by Automated count 17.4 % 11.5-14.5 [facility] Platelets [#/volume] in Blood by Automated count 318 10*3/uL 150-400 [facility] Differential cell count method - Blood [facility] Neutrophils/100 leukocytes in Blood by Automated count 66 % [facility] Lymphocytes/100 leukocytes in Blood by Automated count 9 % [facility] Monocytes/100 leukocytes in Blood by Automated count 14 % [facility] Eosinophils/100 leukocytes in Blood by Automated count 10 % [facility] Basophils/100 leukocytes in Blood by Automated count 1 % [facility] Neutrophils [#/volume] in Blood by Automated count 7.81 10*3/uL 1.8-7 .0 [facility] Lymphocytes [#/volume] in Blood by Automated count 1.02 10*3/uL 1.2-4 .0 [facility] Monocytes [#/volume] in Blood by Automated count 1.60 10*3/uL 0-0.8 [facility] Eosinophils [#/volume] in Blood by Automated count 1.11 10*3/uL 0-0.5 [facility] Basophils [#/volume] in Blood by Automated count 0.11 10*3/uL 0-0.2 [facility] Nucleated erythrocytes/100 leukocytes [Ratio] in Blood by Automated count 0 /100{WBCs} 0-0 [facility] ID Date Data Source [id number] 05/17/2020 04:55:22 AM [facility] Name Value Range Interpretation Code Description Data Vicky rce(s) Supporting Document(s) Bicarbonate [Moles/volume] in Serum 25 mmol/L 22-29 [facility] Chloride [Moles/volume] in Serum or Plasma 104 mmol/L 98-107 [facility] Creatinine [Mass/volume] in Serum or Plasma 0.78 mg/dL 0.50-0.90 [facility] Glucose [Mass/volume] in Serum or Plasma 90 mg/dL 70-140 [facility] Potassium [Moles/volume] in Serum or Plasma 4.5 mmol/L 3.4-5.1 [facility] Sodium [Moles/volume] in Serum or Plasma 136 mmol/L 136-145 [facility] Urea nitrogen [Mass/volume] in Serum or Plasma 10 mg/dL 8-23 [facility] Anion gap 3 in Serum or Plasma 7 mmol/L 8-15 [facility] Osmolality of Serum or Plasma by calculation 281 mosm/kg 275-300 [facility] Creatinine/Urea nitrogen [Mass Ratio] in Serum or Plasma 13 [facility] Calcium [Mass/volume] in Serum or Plasma 9.2 mg/dL 8.8-10.2 [facility] Glomerular filtration rate/1.73 sq M pre dicted among non-blacks [Volume Rate/Area] in Serum or Plasma by Creatinine-based formula (MDRD) 81 mL/min/1.73m2 >60 [facility] Glomerular filtration rate/1.73 sq M pre dicted among blacks [Volume Rate/Area] in Serum or Plasma by Creatinine-based formula (MDRD) >60 [facility] ID Date Data Source [id number] 05/17/2020 04:55:[address] [facility] Value Range Interpretation Code Description Data Vicky rce(s) Supporting Document(s) Magnesium [Mass/volume] in Serum or Plasma 2.1 mg/dL 1.6-2.4 [facility] ID Date Data Source [id number] 05/17/2020 04:55:[address] [facility] Value Range Interpretation Code Description Data Vicky rce(s) Supporting Document(s) Phosphate [Mass/volume] in Serum or Plasma 3.0 mg/dL 2.5-4.5 [facility] ID Date Data Source [id number] 05/16/2020 03:04:[address] [facility] CT ABDOMEN PELVIS WITH AND WITHOUT CONTR AST [id number] RESULT - FINALInterpreted by:Mojgan Thrasher BeginsSigned on TueMay 16, 2020 3:04 PM by Lanette Gonzalez [facility] [place] Result: This report contains findings that may [...] 10 years is recommended. (Reference: Lidia, 2017) COMMENTS: Consistent with the [employer]'s Incidental Findings Committee white [...] rce(s) Supporting Document(s) ID Date Data Source [id number] 05/16/2020 03:04:40 PM EST [facility] CT THORAX WITH CONTRAST [id number] RESU LT - FINALInterpreted by:Mojgan Thrasher BeginsSigned on TueMay 16, 2020 3:04 PM by Lanette Gonzalez MDCritical Result: This report contains findings that may be critical to patient care. The findings were verbally communicated via telephone conference with Dr. Mcleod at 3:04 PM EST on 05/16/2020. The findings were acknowledged and understood.THIS DOCUMENT HAS BEEN ELECTRONICALLY SIGNED BY PETER ZELINKA MDAddendum EndsPROCEDURE INFORMATION: Exam: CT Chest With Contrast; [...] atelectasis noted bilaterally. COMMENTS: Consistent with the [employer]'s Incidental Findings Committee white [...] rce(s) Supporting Document(s) ID Date Data Source [id number] 05/16/2020 08:20:27 AM [facility] Name Value Range Interpretation Code Description Data Vicky rce(s) Supporting Document(s) Magnesium [Mass/volume] in Serum or Plasma 2.3 mg/dL 1.6-2.4 [facility] ID Date Data Source [id number] 05/16/2020 08:20:27 AM [facility] Name Value Range Interpretation Code Description Data Vicky rce(s) Supporting Document(s) Bicarbonate [Moles/volume] in Serum 24 mmol/L 22-29 [facility] Chloride [Moles/volume] in Serum or Plasma 106 mmol/L 98-107 [facility] Creatinine [Mass/volume] in Serum or Plasma 0.78 mg/dL 0.50-0.90 [facility] Glucose [Mass/volume] in Serum or Plasma 99 mg/dL 70-140 [facility] Potassium [Moles/volume] in Serum or Plasma 4.8 mmol/L 3.4-5.1 [facility] Sodium [Moles/volume] in Serum or Plasma 137 mmol/L 136-145 [facility] Urea nitrogen [Mass/volume] in Serum or Plasma 12 mg/dL 8-23 [facility] Anion gap 3 in Serum or Plasma 8 mmol/L 8-15 [facility] Osmolality of Serum or Plasma by calculation 284 mosm/kg 275-300 [facility] Creatinine/Urea nitrogen [Mass Ratio] in Serum or Plasma 15 [facility] Calcium [Mass/volume] in Serum or Plasma 9.6 mg/dL 8.8-10.2 [facility] Glomerular filtration rate/1.73 sq M pre dicted among non-blacks [Volume Rate/Area] in Serum or Plasma by Creatinine-based formula (MDRD) 81 mL/min/1.73m2 >60 [facility] Glomerular filtration rate/1.73 sq M pre dicted among blacks [Volume Rate/Area] in Serum or Plasma by Creatinine-based formula (MDRD) >60 [facility] ID Date Data Source [id number] 05/16/2020 08:20:27 AM [facility] Name Value Range Interpretation Code Description Data Vicky rce(s) Supporting Document(s) Phosphate [Mass/volume] in Serum or Plasma 3.2 mg/dL 2.5-4.5 [facility] ID Date Data Source [id number] 05/16/2020 10:07:04 AM [facility] Name Value Range Interpretation Code Description Data Vicky rce(s) Supporting Document(s) Leukocytes [#/volume] in Blood by Automated count 13.0 10*3/uL 4-10 [facility] Erythrocytes [#/volume] in Blood by Automated count 3.96 10*6/uL 4.1- 5.3 L [facility] Hemoglobin [Mass/volume] in Blood 10.0 g/dL 11.5-15.5 [facility] Hematocrit [Volume Fraction] of Blood by Automated count 31.6 % 3 6-45 [facility] Erythrocyte mean corpuscular volume [Entitic volume] by Auto mated count 79.8 fL 80-96 [facility] Erythrocyte mean corpuscular hemoglobin [Entitic mass] by Automated count 25.1 pg 27-33 [facility] Erythrocyte mean corpuscular hemoglobin concentration [Mass/volume] by Automated count 31.5 g/dL 32.0-36.0 [facility] distribution width [Ratio] by Automated count 17.2 % 11.5-14.5 [facility] Platelets [#/volume] in Blood by Automated count 258 10*3/uL 150-400 [facility] Differential cell count method - Blood [facility] Neutrophils/100 leukocytes in Blood by Automated count 69 % [facility] Lymphocytes/100 leukocytes in Blood by Automated count 4 % [facility] Monocytes/100 leukocytes in Blood by Automated count 14 % [facility] Eosinophils/100 leukocytes in Blood by Automated count 7 % [facility] Basophils/100 leukocytes in Blood by Automated count 1 % [facility] Neutrophils [#/volume] in Blood by Automated count 8.97 10*3/uL 1.8-7 .0 [facility] Lymphocytes [#/volume] in Blood by Automated count 0.52 10*3/uL 1.2-4 .0 L [facility] Monocytes [#/volume] in Blood by Automated count 1.82 10*3/uL 0-0.8 [facility] Eosinophils [#/volume] in Blood by Automated count 0.91 10*3/uL 0-0.5 [facility] Basophils [#/volume] in Blood by Automated count 0.13 10*3/uL 0-0.2 [facility] Band form neutrophils/100 leukocytes in Blood by Manual count 3 % [facility] Myelocytes/100 leukocytes in Blood by Manual count 1 % [facility] Metamyelocytes/100 leukocytes in Blood by Manual count 1 % [facility] Band form neutrophils [#/volume] in Blood by Manual count 0.39 10*3 /uL 0-0.6 [facility] Myelocytes [#/volume] in Blood by Manual count 0.13 10*3/uL 0-0 [facility] Metamyelocytes [#/volume] in Blood by Manual count 0.13 10*3/uL 0-0 [facility] Anisocytosis [Presence] in Blood by Light microscopy [facility] ID Date Data Source [id number] 05/15/2020 08:23:06 PM [facility] Name Value Range Interpretation Code Description Data Vicky rce(s) Supporting Document(s) [facility] CZAFOx8xHrIBTzJq67/ILQhsZSUts1VcLTjcJHi2HNavILEbF9FkHKM1tP0sCVV0SGoMIcBjAiXyFxE9 lbm [file] Fo2FldkLQNSjtn0lmllmVGEIFZGDxOxOJXzrzSoACBUxCmTTkYJ+88sAhRnuGdt3BtopxY4wa6vf+community nutrition educator [file] AgICAgICAgICAgICAgICAgICAgICAgICAgICAgICAg ICAgICAgICAgICAgICAgICAgICAgICAgICAgICANCiAgICAgICAgICAgICAgICAgICAgICAgICAgICAg ICAgICAgICAgICAgICAgICAgICAgICAgICAgICAgICAgICAgICAgICAgICAgICAgICAgICAgICAgICAg ICAgICAgICAgICANCiAgICAgICAgICAgICAgICAgIC AgICAgICAgICAgICAgICAgICAgICAgICAgICAgICAgICAgICAgICAgICAgICAgICAgICAgICAgICAgIC AgICAgICAgICAgICAgICAgICAgICANCiAgICAgICAgICAgICAgICAgICAgICAgICAgICAgICAgICAgIC AgICAgICAgICAgICAgICAgICAgICAgICAgICAgICAg ICAgICAgICAgICAgICAgICAgICAgICAgICAgICAgICANCiAgICAgICAgICAgICAgICAgICAgICAgICAg ICAgICAgICAgICAgICAgICAgICAgICAgICAgICAgICAgICAgICAgICAgICAgICAgICAgICAgICAgICAg ICAgICAgICAgICAgICANCiAgICAgICAgICAgICAgIC AgICAgICAgICAgICAgICAgICAgICAgICAgICAgICAgICAgICAgICAgICAgICAgICAgICAgICAgICAgIC AgICAgICAgICAgICAgICAgICAgICAgICANCiAgICAgICAgICAgICAgICAgICAgICAgICAgICAgICAgIC AgICAgICAgICAgICAgICAgICAgICAgICAgICAgICAg ICAgICAgICAgICAgICAgICAgICAgICAgICAgICAgICAgICANCiAgICAgICAgICAgICAgICAgICAgICAg ICAgICAgICAgICAgICAgICAgICAgICAgICAgICAgICAgICAgICAgICAgICAgICAgICAgICAgICAgICAg ICAgICAgICAgICAgICAgICANCiAgICAgICAgICAgIC AgICAgICAgICAgICAgICAgICAgICAgICAgICAgICAgICAgICAgICAgICAgICAgICAgICAgICAgICAgIC AgICAgICAgICAgICAgICAgICAgICAgICAgICANCiAgICAgICAgICAgICAgICAgICAgICAgICAgICAgIC AgICAgICAgICAgICAgICAgICAgICAgICAgICAgICAg ICAgICAgICAgICAgICAgICAgICAgICAgICAgICAgICAgICAgICANCjw/gWPlY2ffiGObvzR7X0eoYa3U Jy7BMN6bh0VfFFOpROydwbDgVdpLVlSdYTIyKxmEVlz7OGviOX5NpEZlN9MjS0RdWMvaBI6UIMEwKZEq yZOqJGGvXJNzVrX8TSHuGTzrII7KvQZgPOxoKJLgSV LyDqGrABQaUABlQEWsNWJfTAGFBFUwAIRtUuCaIDVsKSMqQZizAOOTCDU5DBVbKaLcAERnBBHbVaOyQE YDKST6GUCfQpNgFgBtZDXdDV8BCAKrL069wrEsFFXIGt1+LXtvugPlWroRYrD1RFCum0YgEZv6ZK5SRR ItVjjcy6SrYUoeQYQTIZqxPF0PQSR8CLY8WTToBm3H LOFfT352evTyBG6AGq3AViAiLB9jsp8TTUhdALMoRrpDRrp4JIbzKW1OiAWlFAlFk88xqPz5ehMknXES ePduW3P7uLSuMX8KVeCqBAIqKAZxPnFgZbWaJYCmUgofFFWELXvIOqUtY6Woy8LnCqV3RBPhPrYaJWzg IHIwAfE3NL66jPtyWX8JFTFwEZGfAK60KWA8BQHrQj 7YIf8CCiAbSW6igs1LHZknJOReImeKWup3UZghSB7ZyLPlD9PilXAdl1xTHfZuA9QIIQN2FBOgIs2AKS UdSrCaKLGoYHlyFX4uBGBwSZYTdUqriaD4NU2DTA1gtwEaHC0OGdWgLc0xOf8MZtRaA1CwS7MkGCVnIR INLNioWP3TGItvQD0jGR3Ok8KWhCXaxB8ark2UBDEy XJMpBtqvgl3TRhizM5S4vCemPTEuLJfzDOWPRTimGG3UZFZoHZC6YZJ8ObBvFPIIWkZrM40iAA0PZ5Fm b76gSvJ4EQEeXsFvDKgfDT24bAqtciVbzQZkzOflFR0KFz1+DQplbmRvYmoNCnhyZWYNCjAgNTANCjAw SAUcBSWmIRMrVcF6RvMsMn6ENUIuZXVkSONdMqPrYU MvCLNxICdkYYKvXHR1BMgzQOOaPBXmCR4JAbPvEZDgFXX5AaLyWSBaIPToje5OAVUlHQBxEBK1HtWsIP XiOZHjFJmxHKRaNAGvUJL1UUQlXBChTX2YHtAwQFKhJDG5XFjlSJMzWCAimj5KBPWqDHTaSpP6KzYoEA UjQSErBTucWDYhSZD2RbL5DTUsIAJbEG3PZzFlTOIm LJk1YwQuGDOwBUKrlj4BKZDvUQLuYBsgVYKrTZArMQXbDLwpDPZjORXfFqc0JPCsEALoCX4RNsYwGUSw TJN0KKQhWUXlQIWzaq0HNPZfJVKrQIl3RADmNPBcXBUdOJanMVMzRBR0VKniOMHuVOEaAL9AJjIyMUNa SNy0TMEdLVCmOIDfxb0CBIEvQSTtTLA1VxXcJXHjQZ DhUPqkQGXpCLEuAyShNNQrVXYoIV1NMnZwCHPdLaP6AusoVNIeBGQpsm9OPFBxMKZkORW6BzEeTQRvUN DdYDudTWWxTCW2Kcx3KNZiKDJmYJ7YLfBxGYIlUjopBjTaBMZnXKFsht1WBLRwYPBzAEK7HyVbWQHqMG TeSAxwEFIvGFMhANAkBEIdIHBaUP9FQlLbBUMrXeQi WsmsNNYqDDEwbq8GCLHmWOTaExM8SmIuQUNiOXMkLEppHKYiPEOpINUwPDZtREIlHN8YRjKzYSOmWdTh HUAyKJHoQYLlit0FOKZpTRFhYpV0PrZhUUEdTPOjOCrhEKVvFZE4TdL8CFBpWRLjXL8QXjCaVAZdGej1 CJVcYROuDGMscz8XITPbJLCnVuzqCzRvFWMoQAJoRD dmCRMgQGB2Qfw0BBQoSNXhDN0GHiGsNHAxOet3CIyjKJBdGEHrrj5OLLUmNURmYWM0UENcTJPcHLJlXU doLEUhZHGoENX3USHrNCAkPN2RLzXlIKSkZWDxLcRbGWHaBGYqpu1RSSIlQNZ4BMNrERZmLTIaDMTtEJ ghQFVjLEHcAlb0DYLaIHBcNJ0FHcDyKXAcKYP0CeKi RSUlWLLqkk3RQNWpVBY5MAp9NBReTXPuRSIjFBjbLFEzKMXtSSM3GHOhQRTuIH0AVjGbQKPeUGB6Fkhh TPXnAOWbno9ESHIaDYO9TuJ5EaLjDBPqLVQjCMdzXOKoSBQeSCE4IATrLBOjTI1TRbWnJSRfWUSqHlKu INMkWJIlal9CGQYaAPH4SPK8LDNtJEBqUVAiIIutFV IsUAH5YSD9PPHqGEChBX4HVeCxGAJjEMEwMmkdTPRgDAVjve0DZJCiJMG3VoRwSBExVOTjKHHaWRk1wg WijXSdJVt4CR2AU9CunrYqISBIRy4Wb726ACV6BKWcYo0LG5vtPs4jKGDkKSTXIc1MDDk4APnoFnqcEe J9AdVfNNOwUALrS0SvCwn0IPE2CmakUvL+IDwxOGQy LAEwTBI1ZuJ4XMT4KnZzPGXsXuWwRqWtNAYcPG2dDQBIUn8+QKxjfBVxuHgvJUGETqQ0HLU7UPcgYROW Rg0K ID Date Data Source [id number] 05/15/2020 02:13:33 PM [facility] IR IMAGE GUIDED NEEDLE DRAIN PROCEDUREFI NAL RESULTInterpreted by:Kyree Belle, MDPROCEDURE: ULTRASOUND GUIDED LIVER MASS BIOPSYHISTORY: 74-year-old female with a hypoenhancing hepatic lesion, abscess versus mass, status post drain placement in outside hospital which is removed due to no output. Status post IR biopsy on 05/12/2020, nondiagnostic due to necrosis.COMPARISON: CT scan 05/09/2020, IR procedure 05/12/2020.OPERATORS:Attending physician: Dale Samuels M.D.Fellow: Ty Ybarra M.D.Resident: NoneProcedural Nurse Practitioner: NoneSEDATION: 1 mg [...] rce(s) Supporting Document(s) ID Date Data Source [id number] 05/15/2020 11:05:42 AM [facility] IR IMAGE GUIDED NEEDLE DRAIN PROCEDUREFI NAL RESULTInterpreted by:Elliot Argueta, Kyree Ybarra, MDPROCEDURE: ULTRASOUND GUIDED LIVER MASS [...] Date Data Source [id number] 05/16/2020 09:32:12 AM [facility] Service Cmnt XXX-Imp : LEFT LIVER LESION Gram Stn XXX : 4+WBC'S Seen.No organisms seenMicroorganism XXX Cult : 2+Staphylococcus epidermidis.(NOTE)Called to and read back by EDWARD FELIX RN, ON 6B AT 0931 ON05/16/20 BY SADIA. Name Value Range Interpretation Code Description Data Vicky rce(s) Supporting Document(s) ID Date Data Source [id number] 05/15/2020 05:29:28 AM [facility] [facility] Name Value Range Interpretation Code Description Data [facility] rce(s) Supporting Document(s) Leukocytes [#/volume] in Blood by Automated count 14.7 10*3/uL 4-10 [facility] Erythrocytes [#/volume] in Blood by Automated count 3.98 10*6/uL 4.1- 5.3 [facility] Hemoglobin [Mass/volume] in Blood 10.0 g/dL 11.5-15.5 [facility] Hematocrit [Volume Fraction] of Blood by Automated count 31.4 % 3 6-45 [facility] Erythrocyte mean corpuscular volume [Entitic volume] by Auto mated count 78.9 fL 80-96 [facility] Erythrocyte mean corpuscular hemoglobin [Entitic mass] by Automated count 25.1 pg 27-33 [facility] Erythrocyte mean corpuscular hemoglobin concentration [Mass/volume] by Automated count 31.8 g/dL 32.0-[facility] distribution width [Ratio] by Automated count 17.3 % 11.5-14.5 [facility] Platelets [#/volume] in Blood by Automated count 259 10*3/uL 150-400 [facility] Differential cell count method - Blood [facility] Neutrophils/100 leukocytes in Blood by Automated count 69 % [facility] Lymphocytes/100 leukocytes in Blood by Automated count 7 % [facility] Monocytes/100 leukocytes in Blood by Automated count 16 % [facility] Eosinophils/100 leukocytes in Blood by Automated count 7 % [facility] Basophils/100 leukocytes in Blood by Automated count 1 % [facility] Neutrophils [#/volume] in Blood by Automated count 10.11 10*3/uL 1.8- 7.0 [facility] Lymphocytes [#/volume] in Blood by Automated count 1.06 10*3/uL 1.2-4 .0 [facility] Monocytes [#/volume] in Blood by Automated count 2.34 10*3/uL 0-0.8 [facility] Eosinophils [#/volume] in Blood by Automated count 1.09 10*3/uL 0-0.5 [facility] Basophils [#/volume] in Blood by Automated count 0.10 10*3/uL 0-0.2 [facility] Nucleated erythrocytes/100 leukocytes [Ratio] in Blood by Automated count 0 /100{WBCs} 0-0 [facility] ID Date Data Source [id number] 05/15/2020 05:49:[address] [facility] Value Range Interpretation Code Description Data Vicky rce(s) Supporting Document(s) Prothrombin time (PT) 15.8 s 12.5-14.9 [facility] INR in Platelet poor plasma by Coagulation assay 1.25 [facility] Routine intensity oral anticoagulation I NR is typically 2.0-3.0. Target INR must be clinically individualized. ID Date Data Source [id number] 05/15/2020 05:49:[address] [facility] Value Range Interpretation Code Description Data Vicky rce(s) Supporting Document(s) Magnesium [Mass/volume] in Serum or Plasma 1.9 mg/dL 1.6-2.4 [facility] ID Date Data Source [id number] 05/15/2020 05:49:[address] [facility] Value Range Interpretation Code Description Data Vicky rce(s) Supporting Document(s) aPTT in Platelet poor plasma by Coagulation assay 30.1 s 24.0-33. 0 [facility] ID Date Data Source [id number] 05/15/2020 05:49:20 AM [facility] Name Value Range Interpretation Code Description Data Vicky rce(s) Supporting Document(s) Bicarbonate [Moles/volume] in Serum 20 mmol/L 22-29 [facility] Chloride [Moles/volume] in Serum or Plasma 106 mmol/L 98-107 [facility] Creatinine [Mass/volume] in Serum or Plasma 0.68 mg/dL 0.50-0.90 [facility] Glucose [Mass/volume] in Serum or Plasma 98 mg/dL 70-140 [facility] Potassium [Moles/volume] in Serum or Plasma 4.3 mmol/L 3.4-5.1 [facility] Sodium [Moles/volume] in Serum or Plasma 134 mmol/L 136-145 [facility] Urea nitrogen [Mass/volume] in Serum or Plasma 9 mg/dL 8-23 [facility] Anion gap 3 in Serum or Plasma 8 mmol/L 8-15 [facility] Osmolality of Serum or Plasma by calculation 277 mosm/kg 275-300 [facility] Creatinine/Urea nitrogen [Mass Ratio] in Serum or Plasma 13 [facility] Calcium [Mass/volume] in Serum or Plasma 8.8 mg/dL 8.8-10.2 [facility] Glomerular filtration rate/1.73 sq M pre dicted among non-blacks [Volume Rate/Area] in Serum or Plasma by Creatinine-based formula (MDRD) 85 mL/min/1.73m2 >60 [facility] Glomerular filtration rate/1.73 sq M pre dicted among blacks [Volume Rate/Area] in Serum or Plasma by Creatinine-based formula (MDRD) >60 [facility] ID Date Data Source [id number] 05/15/2020 05:49:20 AM [facility] Name Value Range Interpretation Code Description Data Vicky rce(s) Supporting Document(s) Phosphate [Mass/volume] in Serum or Plasma 2.8 mg/dL 2.5-4.5 [facility] ID Date Data Source [id number] 05/20/2020 05:45:00 PM [facility] Surgical Pathology ReportName: CARTER VEGAMRN: [id number] Number: [id number] Date: 05/15/2020 00:00Received Date: 05/15/2020 11:46Physician(s): SIMONE MEADOWS MD JAWED, MOHAMMED,[facility] [place] To:JJ JAMES MDSpecimen(s) ReceivedA: Targeted liver lesion biopsyClinical HistoryRule-out malignancy.DiagnosisLIVER LESION, TARGETED BIOPSY: ADENOCARCINOMA, MODERATE TO POORLYDIFFERENTIATEDSerenella Estiven Wong;Resident PathologistElectronically Signed By Alfred Green M.D., Attending Wcqmolraoch75/29/2020 17:45:29 The attending pathologist named above attests [...] are positive for CK7, GATA3 (weak, focal), HI (weak,focal) and negative for CDX2, CK20, TTF1, GCDFP15, PAX8 and ER. P63 labelsrare cells. The differential diagnosis includes pancreatobiliary andupper GI primaries. Given the weak GATA3 positivity and lack of [id number], breast primary is less likely.This report may include one or more immunohistochemical stain results thatuse analyte specific reagents. All positive and negative controls havebeen reviewed by the attending pathologist and are satisfactory. The testswere developed and their performance characteristics determined by [facility] Pathology department. They have not been cleared or approved by the USFood and Drug Administration. The FDA has determ ined that such clearanceor approval is not necessary. Name Value Range Interpretation Code Description Data Vicky rce(s) Supporting Document(s) ID Date Data Source [id number] 05/19/2020 03:36:00 PM [facility] CYTOPATHOLOGY REPORTName: CARTER VEGAMRN: [id number] Number: [id number] Date: 05/15/2020 00:00Received Date: 05/15/2020 13:01Physician(s): SIMONE MEADOWS MD JAWED, MOHAMMED, MD Specimen(s) ReceivedA: LIVER, [...] developed and their performance characteristics determined by [facility] Pathololgy department. They have not been cleared or approved by [place] Food and Drug Administration. The FDA has determined that suchclearance or approval is not necessary. Name Value Range Interpretation Code Description Data [facility] rce(s) Supporting Document(s) ID Date Data Source [id number] 05/14/2020 02:31:44 PM [facility] Name Value Range Interpretation Code Description Data [facility](s) Supporting Document(s) [facility] GMYUWu4sQpZVKwBm62/VPXdrVWKfd4NqQWzwNOi5YBzuFVGfP9EiOUA8eX7wCLI2SFvAGuYlGzOgRnSz [facility] WsKsxXFvXkWIPuSfcWUgYuBYcwEzufpCQkOS3BqWH9ICNoX47kNAHtVDRtF5AlLPU1XZo+Je2WDIXagH MyUF3SOcfZ7M7lBlfYFj+hcqmNI2Xy4P5UhD7/+IZt/LFg4XsS5vcMtZXtwUKgtA2++3vdrT6Tt3M5pK Rqojg0Mitkr1b6PB51c7xE/7orf5O8UNoa/y7/DGPH nF2Zv/6NsHt8snSQ8l53gOiwMPIRcw3yf4n47OlgeoqgC5sVOvNk72ygeVoAf1xJGlWUJb4nHdnz9FPe yVcMXxdc88n9We/owNhuZPu+/+gBN48R52alcSyrBHP6Df8vqq4mAxHCfYTxXcxd8BjbjG72AhsVznhf 8ctxoOP0Iy1vR7F97oYwvYijHqCcDEeIZu7zrQixim /B7uYEuAnyN7YifR9UHoDikVEfejE60OBQ+CpKcJH6h7Rd9eK3nI58CnzvjwlNM95OF5dff3qaNybM18 AC8QTmpaLrF2TnjZm9Wx8G4qzAFr/z8zvcU0rppmwYZ1zikgmtMiCuhEdRwBv544L3XOdFd0v+/qneYq noa5LU40b3qlsd80nIUg3W8zgd3l/UDAt3SGnwO9G6 eWfynICVmoroQK9dgb/06YFDONxbKrWwoJthawWk7les52ApZe9A0DQ2C1CX2edLvg+mplV5GbSW+mxp iuqxrPNfFCwdW/rEzE+ZGPq3S0g3tGBMu70fPYPp6dwR4XUcaem4uiwvXSDdtvnWlQ8OJ6Dy4Gy5e1c9 xnmpeO4u1ixEigAuHeRQOCeItQgmnPLnmxoaGBjL1c ecGVosraIvoaIvtJ4JrYUfBGAnETQc4WNOMJyaeDo9thPT2ZkIWxyW+zBNzN/NfUdzF7ogT7LvimmGco hWw6Axgv9wnl5X3taZRHtJq6y0qvCq8b51PsRTVBXn2y28gvxiat0684+etT4JE1+3fsFMd1G9sjP1En 9kt9Vxr5vZv9zqXIcmp4Uy6Wwq81WwTdWD9HoK71UW S5CvALqURMGUASDHML96faeNZGWrgIRugT3IeoL9CrLdX5fq4Wrk4svmN5buIcilWTYxC0JEux3LnsEt CldN7LHLyQDTQwx+tAStx0YLmFfrmmJr9bvNeGpm8b0W1dl+h5dblfhmNrC/wT6xYXERtx+gebhhV1Ek Nhz5U8CokwOfb04X73q+r63Pz5uMTmHHnxS1mPttgm ODfByVApytk7qY5az1HnTqOTaSK+QQGd9wJlkeO9HDLugpfq3U1NZxRjkgY9dpVIq607KcCygMh7Rexu Awc59R0buA1VTDfsnfsFWxq6HOQR1kmvi1FosL16ytJgMLcsFfce6oDkfpMfMq39ZATPEle0ZImtm/SÁNCHEZ [file] ICAgICAgICAgICAgICAgICAgICAgICAgICAgICAgIC AgICAgICAgICAgICAgICAgICAgICAgICAgDQogICAgICAgICAgICAgICAgICAgICAgICAgICAgICAgIC AgICAgICAgICAgICAgICAgICAgICAgICAgICAgICAgICAgICAgICAgICAgICAgICAgICAgICAgICAgIC AgICAgICAgDQogICAgICAgICAgICAgICAgICAgICAg ICAgICAgICAgICAgICAgICAgICAgICAgICAgICAgICAgICAgICAgICAgICAgICAgICAgICAgICAgICAg ICAgICAgICAgICAgICAgICAgDQogICAgICAgICAgICAgICAgICAgICAgICAgICAgICAgICAgICAgICAg ICAgICAgICAgICAgICAgICAgICAgICAgICAgICAgIC AgICAgICAgICAgICAgICAgICAgICAgICAgICAgDQogICAgICAgICAgICAgICAgICAgICAgICAgICAgIC AgICAgICAgICAgICAgICAgICAgICAgICAgICAgICAgICAgICAgICAgICAgICAgICAgICAgICAgICAgIC AgICAgICAgICAgDQogICAgICAgICAgICAgICAgICAg ICAgICAgICAgICAgICAgICAgICAgICAgICAgICAgICAgICAgICAgICAgICAgICAgICAgICAgICAgICAg ICAgICAgICAgICAgICAgICAgICAgDQogICAgICAgICAgICAgICAgICAgICAgICAgICAgICAgICAgICAg ICAgICAgICAgICAgICAgICAgICAgICAgICAgICAgIC AgICAgICAgICAgICAgICAgICAgICAgICAgICAgICAgDQogICAgICAgICAgICAgICAgICAgICAgICAgIC AgICAgICAgICAgICAgICAgICAgICAgICAgICAgICAgICAgICAgICAgICAgICAgICAgICAgICAgICAgIC AgICAgICAgICAgICAgDQogICAgICAgICAgICAgICAg ICAgICAgICAgICAgICAgICAgICAgICAgICAgICAgICAgICAgICAgICAgICAgICAgICAgICAgICAgICAg ICAgICAgICAgICAgICAgICAgICAgICAgDQogICAgICAgICAgICAgICAgICAgICAgICAgICAgICAgICAg ICAgICAgICAgICAgICAgICAgICAgICAgICAgICAgIC PvEAZqDNBoNOFzPWGeELYbSUHdMWNqGQNlHVJlTXUsMVDoCVr6L8rlSAGdTWQxWD0rKDq0Tt5+DQoNCm EvAAJ5haYtnD7VTM4dl3AdKZnpVKPzt3OsVHj1PR3JBTEaOYwxHG9GVOsssg9OLTZdOHHuhHAUm0atZl HvRHQ6JTXyNljyER9BYLTlJ7ygibOsIRDhFSGNFTzu MPGAPNcfFYKHNSKhHRFeJwNyBvMwNYVyRXZmLLWXGKM3YECuBaKaULTxNTKnFR1FUIYvV813yrRiWY5P Lj5PUsOpPK3mge6ZUsVuCSRiUpdANxy9VStbTG7MfPCqhTLrNhQvWXUAKzShL1jwz2OvVeegOWNQAKcg XS9Yc5VupHLzVIw+Or4DBY9lb8RgCDboOnBkIG8uxe 3MLOsBEcVrU7ShiUpxHUJfueJ7mXHsDUN4YLehpITdgOICPI9szqnlTQIRLYGprNVwNm8qGz2oUOWpQG CeZrE3VVKGWP4KQLQiRKYgpLDaSMNeQOAHIV3PEAicJZA9WPTzeiRkmAQwIVfnEX3WGCEslrExRvWlUB BSDQo+We8UZI2aq1KfLKkyJFWzKG9hup6THOzNQlFz K7U1wESeB5A8SCraTk8ZRVPjFZCaSxUdJIYAHAyjYD1APA5mjcB7SX1LfPHvYOLjHFDrkCFxWGz3Q90w jFUgUPlqWQ6LPKM+Alida+Ca1VEKCcDTTyQLSuHkRaELBDXrOmX0KlL6KRz4NjN9FrAN35nGptkqGxSUcc VE4BDG5sQGUaTZRYSN3BySPgaH4lbiVfXnJfNHCQSq BsV49lxZIoOBUbFAL4UOJqFw7KNHOaI2ZeilEtuGpyyqSrHVOxQPOVEQ4RKQexmgXxhNKarEpgWU28tJ biVM7VLd1IQwMzBH0xtb9ZaIDeUf9CPABaJE7MQTIvSOWtDDRoUQF5JZXsRkWtIOvgIFKyIKJpEWM2QX AjSDFhSP0UOnCkKQOvBLNnMyPrWLIyXNBblk6BXSRr FWD5JVs3QFSwTMLcEWDyFNyfOURuCFOzVNK7IROsXJUiVV1QAgGkLMLvYPFwGYDbPCQeBDGney3BMVOp BLGhAOL6SDZlHMMuTEGtUCmwEBYuQXE5RmM3DUJcZNIrWR8FNfKmTTZfVQv2UiWsRYEjAWJtik9LYEMr DBCnFEdfXPGtHNLjKLLwDYbvBUZxMMPgIOI6EXUxIS MoJQ6QFtWoOSNqVQVsCmBqUSRePACeyw0DXVHkMQKdBGImEKCtHTJiZJDsRWvyDADaJTJ0BEC5LVUrMM ElZQ5RKhUqUGWyUNzeNgEbNUCwKBOtpb0KYJKtVDAcVFq1AJTnPLBrJHJqSOsrQIBpTJOsHJB7EZHtYP HxXR4OVjFhFQGkHwT6UPtgCQHpLZUrmc5BNGFeTFPi DYVdLXHdDQPaILBuZZcyFSXcSAU6RQjyLSRiTLZjAQ0HYnBcFHBbSgA2TEwcVJOjZCQosw9PNBGeUZKt IyW9ZMPqUDFhDKTdYZzeTSKlCZT8MWF7QATnBCJyDD1AWePlASWcWcfiTqwbHKJrRAZqjj7GTKNzPCJd WLm0EgCtDHPsKUTjKWniFVFuRTM3GKi5PZEiVUTbMZ 2DArPyIQOdPkxuUfzyHIHhVCGpno0ACVWpMFKqUERjEdKsVFDyRBFiXFmiKGWkNAGzRPG5FPNgJDMsTS 8HDyFxQKQjAfR7ZDeaAHDdYPDlqi8SXLOuCSD6DvZrHdYcSJZuGFYlBMcsIYLjNOZfYLJyEWUyBTHxCZ 1UNtCfWUGyNFX2DgmsQQOjRCUcph0DQOJgZJV5Fhn9 NDKiJVKeCLKfJYszVZMiPQDfYIQ7ZFZfSXRpEU0WSkRfGCYrZVT2IjPkINRfVRKpzs7LCMWsNIX8LIbt VqIxDZBhUAExBUbeRLKaPDN4NAb7BPXsMSLzLB2YMeWpMRRnOFPnHmKrNZIzVOMyvi9OmOVbtHgfas1H VTnWOy0XqQjmGUX3KIcaDv3iuKRqODXfXHPNAu1Faz CePFInABTFMGxgAWFeHDZjPOCmLyU7EAIzMxamCKS2YvYzNmE5RST0GBU7WEB2NpJ0FxG8G7CjNRljSw GpPMJ2CCO7E0NpCfw1GccaXfx7SyT+GH7kQWm+Uv9Bv7BbuyN9uqTiCUw4NZQ2IX0GMNIPW8MEMj== ID Date Data Source [id number] 05/14/2020 05:18:37 AM [facility] Name Value Range Interpretation Code Description Data Vicky rce(s) Supporting Document(s) Leukocytes [#/volume] in Blood by Automated count 15.8 10*3/uL 4-10 [facility] Erythrocytes [#/volume] in Blood by Automated count 4.02 10*6/uL 4.1- 5.3 L [facility] Hemoglobin [Mass/volume] in Blood 10.1 g/dL 11.5-15.5 [facility] Hematocrit [Volume Fraction] of Blood by Automated count 31.8 % 3 6-45 [facility] Erythrocyte mean corpuscular volume [Entitic volume] by Auto mated count 79.1 fL 80-96 [facility] Erythrocyte mean corpuscular hemoglobin [Entitic mass] by Automated count 25.3 pg 27-33 [facility] Erythrocyte mean corpuscular hemoglobin concentration [Mass/volume] by Automated count 31.9 g/dL 32.0-36.0 [facility] width [Ratio] by Automated count 17.0 % 11.5-14.5 [facility] Platelets [#/volume] in Blood by Automated count 241 10*3/uL 150-400 [facility] Differential cell count method - Blood [facility] Neutrophils/100 leukocytes in Blood by Automated count 74 % [facility] Lymphocytes/100 leukocytes in Blood by Automated count 5 % [facility] Monocytes/100 leukocytes in Blood by Automated count 15 % [facility] Eosinophils/100 leukocytes in Blood by Automated count 5 % [facility] Basophils/100 leukocytes in Blood by Automated count 1 % [facility] Neutrophils [#/volume] in Blood by Automated count 11.70 10*3/uL 1.8- 7.0 [facility] Lymphocytes [#/volume] in Blood by Automated count 0.82 10*3/uL 1.2-4 .0 L [facility] Monocytes [#/volume] in Blood by Automated count 2.34 10*3/uL 0-0.8 [facility] Eosinophils [#/volume] in Blood by Automated count 0.81 10*3/uL 0-0.5 [facility] Basophils [#/volume] in Blood by Automated count 0.11 10*3/uL 0-0.2 [facility] Nucleated erythrocytes/100 leukocytes [Ratio] in Blood by Automated count 0 /100{WBCs} 0-0 [facility] ID Date Data Source [id number] 05/14/2020 05:24:18 AM [facility] Name Value Range Interpretation Code Description Data Vicky rce(s) Supporting Document(s) Bicarbonate [Moles/volume] in Serum 23 mmol/L 22-29 [facility] Chloride [Moles/volume] in Serum or Plasma 104 mmol/L 98-107 [facility] Creatinine [Mass/volume] in Serum or Plasma 0.72 mg/dL 0.50-0.90 [facility] Glucose [Mass/volume] in Serum or Plasma 103 mg/dL 70-140 [facility] Potassium [Moles/volume] in Serum or Plasma 4.4 mmol/L 3.4-5.1 [facility] Sodium [Moles/volume] in Serum or Plasma 133 mmol/L 136-145 [facility] Urea nitrogen [Mass/volume] in Serum or Plasma 10 mg/dL 8-23 [facility] Anion gap 3 in Serum or Plasma 6 mmol/L 8-15 [facility] Osmolality of Serum or Plasma by calculation 275 mosm/kg 275-300 [facility] Creatinine/Urea nitrogen [Mass Ratio] in Serum or Plasma 13 [facility] Calcium [Mass/volume] in Serum or Plasma 9.4 mg/dL 8.8-10.2 [facility] Glomerular filtration rate/1.73 sq M pre dicted among non-blacks [Volume Rate/Area] in Serum or Plasma by Creatinine-based formula (MDRD) 83 mL/min/1.73m2 >60 [facility] Glomerular filtration rate/1.73 sq M pre dicted among blacks [Volume Rate/Area] in Serum or Plasma by Creatinine-based formula (MDRD) >60 [facility] ID Date Data Source [id number] 05/14/2020 05:24:18 AM [facility] Name Value Range Interpretation Code Description Data Vicky rce(s) Supporting Document(s) Magnesium [Mass/volume] in Serum or Plasma 1.9 mg/dL 1.6-2.4 [facility] ID Date Data Source [id number] 05/14/2020 05:24:18 AM [facility] Name Value Range Interpretation Code Description Data Vicky rce(s) Supporting Document(s) Phosphate [Mass/volume] in Serum or Plasma 2.3 mg/dL 2.5-4.5 [facility] ID Date Data Source [id number] 05/13/2020 03:26:28 PM [facility] XR CHEST FRONTAL ONLY [id number] RESULTI nterpreted by:Agata Castro MDINDICATION: Productive coughTECHNIQUE: XR CHEST FRONTAL ONLY [id number], 05/13/2020 8:42 AM, 85 degrees upright.COMPARISON: Side [...] rce(s) Supporting Document(s) ID Date Data Source [id number] 05/13/2020 03:57:31 AM [facility] Name Value Range Interpretation Code Description Data Vicky rce(s) Supporting Document(s) Leukocytes [#/volume] in Blood by Automated count 14.7 10*3/uL 4-10 [facility] Erythrocytes [#/volume] in Blood by Automated count 4.50 10*6/uL 4.1- 5.3 [facility] Hemoglobin [Mass/volume] in Blood 11.3 g/dL 11.5-15.5 [facility] Hematocrit [Volume Fraction] of Blood by Automated count 35.9 % 3 6-45 [facility] Erythrocyte mean corpuscular volume [Entitic volume] by Auto mated count 79.9 fL 80-96 [facility] Erythrocyte mean corpuscular hemoglobin [Entitic mass] by Automated count 25.0 pg 27-33 [facility] Erythrocyte mean corpuscular hemoglobin concentration [Mass/volume] by Automated count 31.3 g/dL 32.0-36.0 [facility] Erythrocyte distribution width [Ratio] by Automated count 17.3 % 11.5-14.5 [facility] Platelets [#/volume] in Blood by Automated count 288 10*3/uL 150-400 [facility] Differential cell count method - Blood [facility] Neutrophils/100 leukocytes in Blood by Automated count 76 % [facility] Lymphocytes/100 leukocytes in Blood by Automated count 6 % [facility] Monocytes/100 leukocytes in Blood by Automated count 12 % [facility] Eosinophils/100 leukocytes in Blood by Automated count 5 % [facility] Basophils/100 leukocytes in Blood by Automated count 1 % [facility] Neutrophils [#/volume] in Blood by Automated count 11.13 10*3/uL 1.8- 7.0 [facility] Lymphocytes [#/volume] in Blood by Automated count 0.89 10*3/uL 1.2-4 .0 L [facility] Monocytes [#/volume] in Blood by Automated count 1.80 10*3/uL 0-0.8 [facility] Eosinophils [#/volume] in Blood by Automated count 0.79 10*3/uL 0-0.5 [facility] Basophils [#/volume] in Blood by Automated count 0.14 10*3/uL 0-0.2 [facility] Nucleated erythrocytes/100 leukocytes [Ratio] in Blood by Automated count 0 /100{WBCs} 0-0 [facility] ID Date Data Source [id number] 05/13/2020 04:09:08 AM [facility] Name Value Range Interpretation Code Description Data Vicky rce(s) Supporting Document(s) Albumin [Mass/volume] in Serum or Plasma by Bromocresol green (BCG) dye binding method 3.1 g/dL 3.5-5.2 L [facility] Bilirubin.total [Mass/volume] in Serum or Plasma 0.3 mg/dL <1.2 [facility] Bilirubin.direct [Mass/volume] in Serum or Plasma <0.3 [facility] Alkaline phosphatase [Enzymatic activity/volume] in Serum or Plasma 244 U/L 35-104 [facility] Aspartate aminotransferase [Enzymatic activity/volume] in Serum or Plasma 11 U/L <32 [facility] Alanine aminotransferase [Enzymatic activity/volume] in Seru m or Plasma 13 U/L <33 [facility] Protein [Mass/volume] in Serum or Plasma 6.4 g/dL 6.4-8.3 [facility] ID Date Data Source [id number] 05/13/2020 04:09:[address] [facility] Value Range Interpretation Code Description Data Vicky rce(s) Supporting Document(s) Magnesium [Mass/volume] in Serum or Plasma 2.1 mg/dL 1.6-2.4 [facility] ID Date Data Source [id number] 05/13/2020 04:09:[address] [facility] Value Range Interpretation Code Description Data Vicky rce(s) Supporting Document(s) Bicarbonate [Moles/volume] in Serum 24 mmol/L 22-29 [facility] Chloride [Moles/volume] in Serum or Plasma 103 mmol/L 98-107 [facility] Creatinine [Mass/volume] in Serum or Plasma 0.80 mg/dL 0.50-0.90 [facility] Glucose [Mass/volume] in Serum or Plasma 98 mg/dL 70-140 [facility] Potassium [Moles/volume] in Serum or Plasma 4.3 mmol/L 3.4-5.1 [facility] Sodium [Moles/volume] in Serum or Plasma 135 mmol/L 136-145 [facility] Urea nitrogen [Mass/volume] in Serum or Plasma 10 mg/dL 8-23 [facility] Anion gap 3 in Serum or Plasma 8 mmol/L 8-15 [facility] Osmolality of Serum or Plasma by calculation 279 mosm/kg 275-300 [facility] Creatinine/Urea nitrogen [Mass Ratio] in Serum or Plasma 13 [facility] Calcium [Mass/volume] in Serum or Plasma 9.4 mg/dL 8.8-10.2 [facility] Glomerular filtration rate/1.73 sq M pre dicted among non-blacks [Volume Rate/Area] in Serum or Plasma by Creatinine-based formula (MDRD) 72 mL/min/1.73m2 >60 [facility] Glomerular filtration rate/1.73 sq M pre dicted among blacks [Volume Rate/Area] in Serum or Plasma by Creatinine-based formula (MDRD) 83 mL/min/1.73m2 >60 [facility] ID Date Data Source [id number] 05/13/2020 04:09:[address] [facility] Value Range Interpretation Code Description Data Vicky rce(s) Supporting Document(s) Phosphate [Mass/volume] in Serum or Plasma 2.0 mg/dL 2.5-4.5 L [facility] ID Date Data Source [id number] 05/13/2020 09:21:20 AM [facility] Name Value Range Interpretation Code Description Data Vicky rce(s) Supporting Document(s) Carcinoembryonic Ag [Mass/volume] in Serum or Plasma 33.7 ng/ml <3.4 [facility] Levels of CEA should not be interpreted as absoulute evidence of the presence or absence of disease. It should not be used as a screening test for Cancer. CEA values obtained using different methodologies cannot be used interchangeably. This method is manufactured by [employer] and is an electrochemiluminesence immunoassay. ID Date Data Source [id number] 05/13/2020 09:54:[address] [facility] Value Range Interpretation Code Description Data Vicky rce(s) Supporting Document(s) Cancer Ag 19-9 [Units/volume] in Serum or Plasma 9179 U/mL <35 [facility] ConfirmedThis test uses [employer] CA 19-9 el ectrochemiluminescent immunoassay. Results obtained with different test methods or kits cannot be used interchangeably. CA 19-9 is useful in monitoring pancreatic, hepatobiliary, gastric, hepatocelllular, and colorectal cancer. CA 19-9 value regardless of level, should not be interpreted as absolute evidence of the presence or absence of malignant disease. ID Date Data Source [id number] 05/13/2020 05:37:[address] [facility] Value Range Interpretation Code Description Data Vicky rce(s) Supporting Document(s) [id number] [Mass/volume] in Serum or Plasma 1 ng/mL <9 [facility] ID Date Data Source [id number] 05/12/2020 08:55:[address] [facility] Value Range Interpretation Code Description Data Vicky rce(s) Supporting Document(s) [facility] [id number] [facility] [file] jV4vhK/O5cBwZC7RvG2h0itMib25sDLHrUtwydd1/1U7GD6Hl6BjX/7o+capital campaign fundraiser/2nP77/pOLWK8mK21go1k [file] LwAbMBF8K2OzWiEgLVc7W1R+OZ0aZHx+Ww0Jh5LenfU8cjMjXLd7FsE6VE9TTLZLH2VPAj== ID Date Data Source [id number] 05/15/2020 10:48:08 AM [facility] Service Cmnt XXX-Imp : LIVERGram Stn XXX : No WBC's or organisms seen.Microorganism XXX Cult : No growth 3 days Name Value Range Interpretation Code Description Data Vicky rce(s) Supporting Document(s) ID Date Data Source [id number] 05/12/2020 12:44:26 PM [facility] Name Value Range Interpretation Code Description Data Vicky rce(s) Supporting Document(s) History and Physical [facility] ZGTTJp8uZjJTPrPr43/VDEjkYONab8NhTRkmNQq4SRlaJVNvW3ShWWE1bC6wDZE7PLgUQjQnSwYtBkWi lbm [file] YSSdPPFrSURrKIMqF9NbLaNcAM1JPw8KWiF4CMS5qVOpNt1YKag2MaVFCfOkCK7PEDd= ID Date Data Source [id number] 05/12/2020 04:43:18 AM [facility] Name Value Range Interpretation Code Description Data Vicky rce(s) Supporting Document(s) Leukocytes [#/volume] in Blood by Automated count 13.8 10*3/uL 4-10 H [facility] Erythrocytes [#/volume] in Blood by Automated count 4.19 10*6/uL 4.1- 5.3 [facility] Hemoglobin [Mass/volume] in Blood 10.4 g/dL 11.5-15.5 [facility] Hematocrit [Volume Fraction] of Blood by Automated count 33.1 % 3 6-45 L [facility] Erythrocyte mean corpuscular volume [Entitic volume] by Auto mated count 79.1 fL 80-96 [facility] Erythrocyte mean corpuscular hemoglobin [Entitic mass] by Automated count 24.9 pg 27-33 [facility] Erythrocyte mean corpuscular hemoglobin concentration [Mass/volume] by Automated count 31.4 g/dL 32.0-36.0 [facility] width [Ratio] by Automated count 16.8 % 11.5-14.5 [facility] Platelets [#/volume] in Blood by Automated count 304 10*3/uL 150-400 [facility] Differential cell count method - Blood [facility] Neutrophils/100 leukocytes in Blood by Automated count 72 % [facility] Lymphocytes/100 leukocytes in Blood by Automated count 7 % [facility] Monocytes/100 leukocytes in Blood by Automated count 13 % [facility] Eosinophils/100 leukocytes in Blood by Automated count 7 % [facility] Basophils/100 leukocytes in Blood by Automated count 1 % [facility] Neutrophils [#/volume] in Blood by Automated count 9.91 10*3/uL 1.8-7 .0 H [facility] Lymphocytes [#/volume] in Blood by Automated count 0.95 10*3/uL 1.2-4 .0 L [facility] Monocytes [#/volume] in Blood by Automated count 1.85 10*3/uL 0-0.8 H [facility] Eosinophils [#/volume] in Blood by Automated count 1.00 10*3/uL 0-0.5 [facility] Basophils [#/volume] in Blood by Automated count 0.10 10*3/uL 0-0.2 [facility] Nucleated erythrocytes/100 leukocytes [Ratio] in Blood by Automated count 0 /100{WBCs} 0-0 [facility] ID Date Data Source [id number] 05/12/2020 04:46:16 AM [facility] Name Value Range Interpretation Code Description Data Vicky rce(s) Supporting Document(s) Albumin [Mass/volume] in Serum or Plasma by Bromocresol green (BCG) dye binding method 2.7 g/dL 3.5[facility] Bil[facility].total [Mass/volume] in Serum or Plasma 0.3 mg/dL <1.2 [facility] Bilirubin.direct [Mass/volume] in Serum or Plasma <0.3 [facility] Alkaline phosphatase [Enzymatic activity/volume] in Serum or Plasma 186 U/L 35-104 [facility] Aspartate aminotransferase [Enzymatic activity/volume] in Serum or Plasma 13 U/L <32 [facility] Alanine aminotransferase [Enzymatic activity/volume] in Seru m or Plasma 13 U/L <33 [facility] Protein [Mass/volume] in Serum or Plasma 5.8 g/dL 6.4-8.3 [facility] ID Date Data Source [id number] 05/12/2020 04:46:16 AM [facility] Name Value Range Interpretation Code Description Data Vicky rce(s) Supporting Document(s) Phosphate [Mass/volume] in Serum or Plasma 2.5 mg/dL 2.5-4.5 [facility] ID Date Data Source [id number] 05/12/2020 04:46:16 AM [facility] Name Value Range Interpretation Code Description Data Vicky rce(s) Supporting Document(s) Magnesium [Mass/volume] in Serum or Plasma 1.8 mg/dL 1.6-2.4 [facility] ID Date Data Source [id number] 05/12/2020 04:46:16 AM [facility] Name Value Range Interpretation Code Description Data Vicky rce(s) Supporting Document(s) Bicarbonate [Moles/volume] in Serum 25 mmol/L 22-29 [facility] Chloride [Moles/volume] in Serum or Plasma 106 mmol/L 98-107 [facility] Creatinine [Mass/volume] in Serum or Plasma 0.76 mg/dL 0.50-0.90 [facility] Glucose [Mass/volume] in Serum or Plasma 82 mg/dL 70-140 [facility] Potassium [Moles/volume] in Serum or Plasma 4.5 mmol/L 3.4-5.1 [facility] Sodium [Moles/volume] in Serum or Plasma 137 mmol/L 136-145 [facility] Urea nitrogen [Mass/volume] in Serum or Plasma 9 mg/dL 8-23 [facility] Anion gap 3 in Serum or Plasma 6 mmol/L 8-15 L [facility] Osmolality of Serum or Plasma by calculation 282 mosm/kg 275-300 [facility] Creatinine/Urea nitrogen [Mass Ratio] in Serum or Plasma 12 [facility] Calcium [Mass/volume] in Serum or Plasma 9.0 mg/dL 8.8-10.2 [facility] Glomerular filtration rate/1.73 sq M pre dicted among non-blacks [Volume Rate/Area] in Serum or Plasma by Creatinine-based formula (MDRD) 82 mL/min/1.73m2 >60 [facility] Glomerular filtration rate/1.73 sq M pre dicted among blacks [Volume Rate/Area] in Serum or Plasma by Creatinine-based formula (MDRD) >60 [facility] ID Date Data Source [id number] 05/14/2020 05:47:00 PM [facility] Surgical Pathology ReportName: CARTER VEGAMRN: [id number] Number: [id number] Date: 05/12/2020 00:00Received Date: 05/13/2020 09:02Physician(s): SIMONE MEADOWS MD PINTER, DAVID J,MDCopy To:ARLYN-MINA,FRANSISCO Penny,MDDSIMONE DAHL,KRUPApecimen(s) ReceivedA: Liver lesionClinical HistoryLiver abscess vs. mass, aspiration, possible drain placement, possiblebiopsy. 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 NO VIABLE CELLS/TISSUEPRESENT. (See Microscopic Description). /Marisol Vance M.D.;Resident PathologistElectronically Signed By Kuldip Roberts MD;, Attending Lrfyzfleoak12/23/2020 17:47:43 The attending pathologist named above attests [...] developed and their performance characteristics determined by [facility] Pathology department. They have not been cleared or approved by the USFood and Drug Administration. The FDA has determined that such clearanceor approval is not necessary. Name Value Range Interpretation Code Description Data Vicky rce(s) Supporting Document(s) ID Date Data Source [id number] 05/11/2020 11:14:02 PM [facility] ABDOMEN LIMITED [id number] RESULTInte rpreted by:Dawson Stark MDPROCEDURE INFORMATION: Exam: US Abdomen, Limited; Right Upper [...] rce(s) Supporting Document(s) ID Date Data Source [id number] 05/11/2020 10:14:10 AM [facility] Name Value Range Interpretation Code Description Data Vicky rce(s) Supporting Document(s) History and Physical [facility] AMXMCm1cQtOHSfWb33/BKQfkKZAcr4SzPPguWVx5PRolPGAvL6AcGRB5xN2bQGG5GPoHTwFjCzViAtXd [facility] TqWipLMrPzVVKyXxlGKxTqRIptWvcelASbMB5IoIG6BIHzW73cUQAzBGOwI7NyRBB9DaH+Bj7IEHYkdC GmIQ6IGplY0I7lykb1Eb2qbL2JhLPYFvxo6A30fISKR4GDVd/HvaJAvsjW+tJnPb0Joor1d+9kP5Rkvk nslrjkh099MDeBlVObMH0RBbDN//8bfnJT5kj6/+/x s3Pz9JuR+cdt8QCipg36Yx6YOpLWyPf0nyzK/k9ff//B2xO1/w6IWEK5do93ReuiFqHp4sJuCPI9dEl1 Yo4gw8sY7mENOipiw5+JShosZyaSd08i9oiWh3LbbncJiyQrUEH+HBap9NZQQeGyPszXxJABuCWsVDnJ o15EIewRn49gEX+rwmtT6uyK14Re1GWP2nN1j76dFB frXs4wk4xFPAgyF5JTKc3OMht31eXmkf7Ln04P8o/nYnymra8wUubxVc6nKx1E4y7DCkSyHPsaXz+aEy 2ncoNbOqdrwPSgaHkV8wX0o9fkrLYH2eyLgTaF04U8ZD/L+6s44O8OXrydWl+zm+C1C9s66JDXOLvLm3 w31NutEhsV2AWykz5g63C1+sYd5BpA2oA1ZzSueSDK e3Qnak1nawlJfoRUxHS6D/h6ogY/2LsyevANochKFmkbzloQUdG3W/GoUV7trM4blazDZnFO+VMJhlEJ Angela+0h6USUI5VA7/llNKmnHZcO0sZqwUmVvmRgIUXw2eIuwrWg+kAC/Pco27Q0K3FkOsn4gyIpfMUV8o [file] Sánchez+3zpg1t9UPlXNbVFvQGavOozlmt+XN93A/42T4oI03qMDeCQ3ZrOjLkOe33xrN6W/C3vhiBKryR+B2 [file] AgICAgICAgICAgICAgICAgICAgICAgICAgICAgICAgICAgICAgICAgICAgICAgICAgICAgICAgICAgIC AgICAgICAgICAgICANCiAgICAgICAgICAgICAgICAg ICAgICAgICAgICAgICAgICAgICAgICAgICAgICAgICAgICAgICAgICAgICAgICAgICAgICAgICAgICAg ICAgICAgICAgICAgICAgICAgICAgICANCiAgICAgICAgICAgICAgICAgICAgICAgICAgICAgICAgICAg ICAgICAgICAgICAgICAgICAgICAgICAgICAgICAgIC AgICAgICAgICAgICAgICAgICAgICAgICAgICAgICAgICANCiAgICAgICAgICAgICAgICAgICAgICAgIC AgICAgICAgICAgICAgICAgICAgICAgICAgICAgICAgICAgICAgICAgICAgICAgICAgICAgICAgICAgIC AgICAgICAgICAgICAgICANCiAgICAgICAgICAgICAg ICAgICAgICAgICAgICAgICAgICAgICAgICAgICAgICAgICAgICAgICAgICAgICAgICAgICAgICAgICAg ICAgICAgICAgICAgICAgICAgICAgICAgICANCiAgICAgICAgICAgICAgICAgICAgICAgICAgICAgICAg ICAgICAgICAgICAgICAgICAgICAgICAgICAgICAgIC AgICAgICAgICAgICAgICAgICAgICAgICAgICAgICAgICAgICANCiAgICAgICAgICAgICAgICAgICAgIC AgICAgICAgICAgICAgICAgICAgICAgICAgICAgICAgICAgICAgICAgICAgICAgICAgICAgICAgICAgIC AgICAgICAgICAgICAgICAgICANCiAgICAgICAgICAg ICAgICAgICAgICAgICAgICAgICAgICAgICAgICAgICAgICAgICAgICAgICAgICAgICAgICAgICAgICAg ICAgICAgICAgICAgICAgICAgICAgICAgICAgICANCiAgICAgICAgICAgICAgICAgICAgICAgICAgICAg ICAgICAgICAgICAgICAgICAgICAgICAgICAgICAgIC AgICAgICAgICAgICAgICAgICAgICAgICAgICAgICAgICAgICAgICANCiAgICAgICAgICAgICAgICAgIC AgICAgICAgICAgICAgICAgICAgICAgICAgICAgICAgICAgICAgICAgICAgICAgICAgICAgICAgICAgIC AgICAgICAgICAgICAgICAgICAgICANCjw/jHScN2zt aATsqoJ6F1zsEb3XCx3AYX4ld2SsRRJtRYbsmpGwWnpJVwNdBMCtRfhYApa0XPbxNR0JuIIsY3VyK7Vj IKkfLE9UYDGwIJDxfTMeJLUgZZDcRxW4XJUpJEsoKR2QsWXqZEcmYQKpXWFsNoJsJGWcBNFpUSCrORKz CMVLRLMrNAOoCbIwLNFhFZMwMSrjIEVJIY1TIvXlF3 NerV47MLuCOr8+YWroygFwEumFKfP1ZVIah8PyYVp9VI5YSSDhGzsnz1XeBwgpMLZSMMerWI4LMKJ3LQ D7AYHlWs6DWODgY037jyVpNC6MSt5FAoEtED1naf1GRolhFSZxGoiHZox1XJliJQ3DcKCeXSrXKhZlYc nhP4NsfJAFBD5sIOBVKBTrlCAnMc8kBV4hPBOwOSJq ZiNbBWDLMI6ONPJsBDPwcNCxMZBgQPPCLQ6ZQQzfFVW7OKNfyuImcWUgWSbeFK9UOCTclsDuJcuvAYPR DQo+Xh1YNY2xa1RuVZomDNGjQA8rkq3IUCyCXfHqC0R4dEUdD7I7JNxlXe6RGFJhAWOoZpDuQSKQCVwh LD8XNE4vnyH1KB2HbEEmNLNhBIWhtGGdOHa8L11hvF MxZIclCQ1BFME+Alida+Qc4JGUThUVVxDHMrJzPbJSJJKxDcW7AyD2HFr8IyP1KqLE40sFawpaKfTVxkKH 7RIR3rHWEmYITYUJ9SfFMptQ4oupOkYyKtZMVRCsQoC90goEJiNNUyFBA1KCJxEa3CDIOpS1AudwRakP rweaGvYLZgACVLJF9WTXoaegJjnFJlbDpcVA87sXgj OP5OMh7BFqKpOQ1qnn3HkYMsHk3IIFX8ZH0VROGrMHOmIUQrAHX8XHYxLrDyYHxnEMRmIVHxBKL1DZSa SSFhNE4KIkTxMFVzWDP1ESFeEWXmXEZsra3AKZHhEDT3PaX5NuMyRPEmTOVrMXmaOZDxHXXnTGW0BBZf QELiUJ4FAySfKWHjAFJoYQQuDZDcXAImlp1ZKTEgXL NdILWuWfDzVEIvUGLyZJzeRXKoEJY9WWp7HJPtJVMvWR7ZHjLsCLIxWIxbVJclVHUwRUTrvi7YWSDlRR ZnSQZzKVNcIBEfJFJwUUerEQVqIJT8HMX4BHXgPHFkTM2WRxRdROXqMUW2GSbpGITiWVHyuf3ZGABrCH LpSeyeXXPcNBDdAEKxBMxzZYRhJMO8BxQhASByHWFm BL1FKuKlWOBcTCN0VNfkKQPnHKRsxi4BTPOcNVQhISy2BOObDUTzDSXmBXvgNXHzPODkAUPpBYDfWOXi JY7UNfBhOPPgVaCrLLReRSMtBZMtrg7AQREsUYEcItNeAHDpDMNgQGAsLNdlHJUlDPJgNBw2FYShCOYp ZW1LYnXwSFBvVeW3EsFuDJPoHTTodi7ZXVDvWKLjRc g4UBHaLESeBBQfGZujUXTsWZG5XKH2EEXqSRNtDI5IYkHlWEOkPxVtYyAoUUCoUOWrdt2NGRHfRBZwOT QhZKCgARKlSASqNLamNXIuTNH2JIK0SWLaFXXyFE1SGjCaJQTwFhFvHpOmKFGsDFDyvb4GPCRbVCJnWp I6GPXiTBDyZALoNYlvGUYiCTW2SVK8PRUyXWViAL8N RdVtZYPwIjc1BIRwUXNnQMBppv6LCABlENNxCxnbKOJaMJZyUEUlDLhkRONnQFDxWyR5WAOtBXBmXK8T YtPwWPQqIRU0GHnuJBYcIMKeuz3DGATqMJT3IUsvQeUiWBEwAJToUZxhMDJwJGKjDAWfMRFzQQZpNX2H KnDbLSGkXNH6JAqoEJQyPSQmls2CBTKkOGV8EbMfAz EpXIIhEXGbDKphQDZpGXAfYWDhHEMgSPLyBQ8VZbOvKXUaMXA7XoHhKWMpABNzfq0BOWJkIYP8UoggCJ ZrEQSuETUvSSj0foLlkVWmQKj2JZ6NO3GuwlWaCAEXXj7Sj392IOY1NXRnPj6CB7dsNv5nELMjSQAPLs 4VGUv6Jmt0NskmZgGuFfBwHbC4LaWfEsY3FZGkBiGf UkX0NBT+TQhtWmRhADOmDAHjTcD5MEF8LVMtQSc1WOH1TyNyMYQ6Ih1qMEZAPx6+DQpzdGFydHhyZWYN IfPvLYK8RQguDSRIZc4O ID Date Data Source [id number] 05/11/2020 10:16:42 AM [facility] Name Value Range Interpretation Code Description Data Vicky rce(s) Supporting Document(s) Homocysteine [Moles/volume] in Serum or Plasma 9.5 umol/L <15.0 [facility] ID Date Data Source [id number] 05/11/2020 08:15:32 AM EST [facility] Name Value Range Interpretation Code Description Data Vicky rce(s) Supporting Document(s) Leukocytes [#/volume] in Blood by Automated count 13.8 10*3/uL 4-10 H [facility] Erythrocytes [#/volume] in Blood by Automated count 4.52 10*6/uL 4.1- 5.3 [facility] Hemoglobin [Mass/volume] in Blood 11.3 g/dL 11.5-15.5 [facility] Hematocrit [Volume Fraction] of Blood by Automated count 36.0 % 3 6-45 [facility] Erythrocyte mean corpuscular volume [Entitic volume] by Auto mated count 79.7 fL 80-96 L [facility] Erythrocyte mean corpuscular hemoglobin [Entitic mass] by Automated count 25.1 pg 27-33 [facility] Erythrocyte mean corpuscular hemoglobin concentration [Mass/volume] by Automated count 31.4 g/dL 32.0-36.0 [facility] E[facility] distribution width [Ratio] by Automated count 17.1 % 11.5-14.5 H [facility] Platelets [#/volume] in Blood by Automated count 289 10*3/uL 150-400 [facility] Differential cell count method - Blood [facility] Neutrophils/100 leukocytes in Blood by Automated count 76 % [facility] Lymphocytes/100 leukocytes in Blood by Automated count 4 % [facility] Monocytes/100 leukocytes in Blood by Automated count 12 % [facility] Eosinophils/100 leukocytes in Blood by Automated count 7 % [facility] Basophils/100 leukocytes in Blood by Automated count 1 % [facility] Neutrophils [#/volume] in Blood by Automated count 10.52 10*3/uL 1.8- 7.0 H [facility] Lymphocytes [#/volume] in Blood by Automated count 0.59 10*3/uL 1.2-4 .0 L [facility] Monocytes [#/volume] in Blood by Automated count 1.66 10*3/uL 0-0.8 [facility] Eosinophils [#/volume] in Blood by Automated count 0.91 10*3/uL 0-0.5 H [facility] Basophils [#/volume] in Blood by Automated count 0.09 10*3/uL 0-0.2 [facility] Nucleated erythrocytes/100 leukocytes [Ratio] in Blood by Automated count 0 /100{WBCs} 0-0 [facility] ID Date Data Source [id number] 05/11/2020 08:51:27 AM [facility] Name Value Range Interpretation Code Description Data Vicky rce(s) Supporting Document(s) Albumin [Mass/volume] in Serum or Plasma by Bromocresol green (BCG) dye binding method 2.7 g/dL 3.5-5.2 [facility] Bilirubin.total [Mass/volume] in Serum or Plasma 0.3 mg/dL <1.2 [facility] Bilirubin.direct [Mass/volume] in Serum or Plasma <0.3 [facility] Hemolyzed Alkaline phosphatase [Enzymatic activity/volume] in Serum or Plasma 193 U/L 35-104 H [facility] Aspartate aminotransferase [Enzymatic activity/volume] in Serum or Plasma 19 U/L <32 [facility] Alanine aminotransferase [Enzymatic activity/volume] in Seru m or Plasma 20 U/L <33 [facility] Protein [Mass/volume] in Serum or Plasma 6.4 g/dL 6.4-8.3 [facility] ID Date Data Source [id number] 05/11/2020 08:51:27 AM [facility] Name Value Range Interpretation Code Description Data Vicky rce(s) Supporting Document(s) Bicarbonate [Moles/volume] in Serum 23 mmol/L 22-29 [facility] Chloride [Moles/volume] in Serum or Plasma 106 mmol/L 98-107 [facility] Creatinine [Mass/volume] in Serum or Plasma 0.73 mg/dL 0.50-0.90 [facility] Glucose [Mass/volume] in Serum or Plasma 100 mg/dL 70-140 [facility] Potassium [Moles/volume] in Serum or Plasma 3.9 mmol/L 3.4-5.1 [facility] Hemolyzed Sodium [Moles/volume] in Serum or Plasma 137 mmol/L 136-145 [facility] Urea nitrogen [Mass/volume] in Serum or Plasma 10 mg/dL 8-23 [facility] Anion gap 3 in Serum or Plasma 8 mmol/L 8-15 [facility] Osmolality of Serum or Plasma by calculation 283 mosm/kg 275-300 [facility] Creatinine/Urea nitrogen [Mass Ratio] in Serum or Plasma 13 [facility] Calcium [Mass/volume] in Serum or Plasma 9.8 mg/dL 8.8-10.2 [facility] Glomerular filtration rate/1.73 sq M pre dicted among non-blacks [Volume Rate/Area] in Serum or Plasma by Creatinine-based formula (MDRD) 83 mL/min/1.73m2 >60 [facility] Glomerular filtration rate/1.73 sq M pre dicted among blacks [Volume Rate/Area] in Serum or Plasma by Creatinine-based formula (MDRD) >60 [facility] ID Date Data Source [id number] 05/11/2020 08:51:27 AM [facility] Name Value Range Interpretation Code Description Data Vicky rce(s) Supporting Document(s) Magnesium [Mass/volume] in Serum or Plasma 2.0 mg/dL 1.6-2.4 [facility] ID Date Data Source [id number] 05/11/2020 08:51:27 AM [facility] Name Value Range Interpretation Code Description Data Vicky rce(s) Supporting Document(s) Phosphate [Mass/volume] in Serum or Plasma 2.4 mg/dL 2.5-4.5 L [facility] ID Date Data Source [id number] 05/10/2020 01:42:40 PM [facility] Name Value Range Interpretation Code Description Data Vicky rce(s) Supporting Document(s) Hepatitis C virus Ab [Presence] in Serum or Plasma by Immuno assay Non Reactive [facility] No serological evidence of active infect ion. If recent exposure is suspected, test for HCV RNA. ID Date Data Source [id number] 05/22/2020 01:47:00 PM [facility] Molecular Genetics ReportName: CARTER VEGAMRN: [id number] Number: [id number] Date: 05/10/2020 12:29Received Date: 05/12/2020 10:45Physician(s): SIMONE MEADOWS MD ALBRIGHT, JEFFREY B,MDCopy To:LEIF SMART,KRUPApecimen(s) ReceivedA: Peripheral Blood-ProthrombinTYPE OF STUDY: Prothrombin (F2) c.19999Z>A (aka c.*97G>A) mutationanalysisSPECIMEN TYPE: Peripheral BloodRESULTS: This patient does NOT carry the prothrombin (F2) 31911B>Amutation. See [id number] for Factor V Leiden results. 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 Prothrombin 10821X>A is a risk factor forthrombosis. The 75704J>A variant (dbSNP: [id number]), also known asc.*97G>A, is located in the 3' UTR of the F2 gene and causes increasedlevels of F2 protein synthesis (Andres et al., 2001). This DNA-basedtest is specific for the F2 38833Y>A mutation and would not be expectedto detect other prothrombin gene mutations. Other known inherited oracquired risk factors likely compound the chance of thrombosis. Prothrombin 29860N>A heterozygosity is present in 1-3%, 1%, and 0.3% ofCaucasians, Hispanics, and Americans respectively.METHOD: The cobase F2F5 assay is an in vitro diagnostic device thatuses real-time Polymerase Chain Reaction (PCR) for the detection andgenotyping of the human Factor II 40900Q>A mutation. An allele- specificfluorescence signal is generated by cleavage of bound TaqMane probes. References: Richard Sebastian, et al., (1997) The prothrombin gene L89229T variant:prevalence in a [place] anticoagulant clinic population. [place] J ofHaematology 98:353-355Pomadi, S.R., et al., (1996) A Common Genetic Variation in the3'-Untranslated Region of the Prothrombin Gene Is Associated With ElevatedPlasma Prothrombin Levels and an Increase in Venous Thrombosis Blood 88(15):1337-7366.Andres et al., (2001) Increased efficiency of mRNA 3-prime end formation:a new genetic mechanism contributing to hereditary thrombophilia. Rochelle.Bhakti. 28:389-92.Grazyna Lau et al (2018) Venous thromboembolism laboratory testing (factor VLeiden and factor II c.*97G>A), 2018 update: a technical standard of theCabrini Medical Centeran College of Medical Genetics and Genomics (ACMG). Genetics inMedicine 20:1698-5143. The cobase F2F5 assay is an FDA approved assay for in vitro diagnostic usedistributed by [facility]. The test has been validated andauthorized for clinical use by the [facility] of Health. Theperformance of this test was determined by the Molecular Diagnosticslaboratory of the Department of Pathology, [facility]. The laboratory maintains manager quality and quality assuranceprograms to ensure a high quality of testing. Test results should beinterpreted in the context of clinical findings, family history, and otherlaboratory data, and should not be used as the sole criteria for diagnosisof conditions related to this genetic variant. Rare genetic variants thatmimic or mask the mutation being tested, though rare, should beconsidered. krenata/rw Electronically Signed By Daimen Thompson, Ph.D., [facility] MolecularGeneticist 05/22/2020 13:47:24 Name Value Range Interpretation Code Description Data Vicky rce(s) Supporting Document(s) ID Date Data Source [id number] 05/22/2020 01:47:00 PM [facility] Molecular Genetics ReportName: CARTER VEGAMRN: [id number] Number: [id number] Date: 05/10/2020 12:29Received Date: 05/12/2020 10:42Physician(s): SIMONE MEADOWS MD ALBRIGHT, JEFFREY B,[facility] [place] To:LEIF SMART,[facility] ReceivedA: Peripheral Blood-Factor VTYPE OF STUDY: FACTOR [...] position 506 (R506Q)also known as R534Q (dbSNP: [id number]). This DNA- based test is specific forthe [...] by cleavage of bound TaqMane probes.REFERENCES: Sid S et al (2018) Venous thromboembolism l aboratorytesting (factor V Leiden and factor II c.*97G>A), 2018 update: a technicalstandard of the [place] [employer] (ACMG).Genetics in Medicine 20:1314-8036; OTTO Rodriguez. et al (2002) Clinicalutility of Factor V Leiden (R506Q) testing for the diagnosis andmanagement of thromboembolic disorders. Arch Pathol Lab Med 126:8655-1623; Oleg et al (2001) The factor V HR2 haplotype: prevalence andassociation of the A9061D and I2308U polymorphisms. Blood CoagulFibrinolysis 12:201-6; Daphney Escalera et al. (2000) Mutations in the R2 FVgene affect the ratio between the two FV isoforms in plasma. ThrombHaemost 83:362-5; YANET Quiñones et al. (1999) Coinheritance of the PP4ggipxsapj in the factor V gene confers an increased risk of venousthromboembolism to carriers of Factor V R506Q (Factor V Leiden). Blood 94:1351-0701; Enmanuel Lorenzo et.al. (1995) High risk of thrombosis inpatients homozygous for factor V Leiden (activated protein C resistance)Blood 85:1504 - 1508. The cobase F2F5 assay is an FDA approved assay for in vitro diagnostic usedistributed by [facility]. The test has been validated andauthorized for clinical use by the [facility]. Theperformance of this test was determined by the Molecular Diagnosticslaboratory of the Department of Pathology, [facility]. The laboratory maintains manager quality and quality assuranceprograms to ensure a high [...] fatemeh/ fernandaElectronically Signed By Damien Thompson, Ph.D., [facility], [facility] MolecularGeneticist 05/22/2020 13:47:05 Name Value Range Interpretation Code Description Data Vicky rce(s) Supporting Document(s) ID Date Data Source [id number] 05/10/2020 08:56:27 [facility] Name Value Range Interpretation Code Description Data [facility] rce(s) Supporting Document(s) [facility] MCOJQz3rEaOSNeZhe0DkPnTgEROcUD1wixm9Z6H5fYIuL9BykCQcb3ulY7WdJ8PiXUWpWFLMYW8EhHBj jb2 [file] I3/reig6ECI57KRJfdw2R3qxWj5W/Maraí++Tnb5U+J3Ucse73YTszGvrQk0udUKit51aB4y/lO0O782feL [file] RT/+María+3G8nrKePxF8+l6jtyIVUjJMhVPVnHG10NTiVUrGo48q+fbqUhE3djAuknMJydi4RAG8tDFEtn [file] v3cYepj/MB/cattle tester/56Sa6MzY7XUpi3ogacCg5AEhnOC5PmzjMp227utlBOXt6RBk7TkzqAyMxa5SUyKUN TkC8NgkxNxHKZonzjn9t3RVXEzmrmT1XZacm16znM9 zgpBWkP828Lv1inOgVhcWE17NGTGw2r+gcx1HYcEUfTEDH/mtuIB5hjy6qR8T2FLqzSawp5VFgllNRVL PpZjUS+OKgk+lvw+6M71Rsk6N+qMJ3b+xwFzj4KVGlcSQb09BpybfXsBpAIF022NF2VME+w6R8OO5JCd Njl4ICb+6fMrbLfgNl4n5S1G+BbzL01HtccwIRYltZ 1eZ/Z5IeOQHM5MxpMVKfi+hukcHUbGRNQHDGEuX2b2Rp1XGoptShQ+r6JxDXoYEeZ6qosY2UfZMq/BnB a9RQbRwDXKux2P1XvQpMVSpGHmyDbJULK2AwcBaAnlMb4BIV0WFyq4ZEcAySaU/UgmdS7youjAbzafQM p7kFB6LSXBwdkWOizJSot+UZE/TFH2N9Id95vS+50l +BvtoI4zPoSjZhltQuYk1vkCm4+Sj+UgC+t805VtH9CIrsjuPo0+TV1GWkj2BBueycxWxbJzhmKWOGXF aTYilDLViHbNdtmmnxfR1idLva67JF/LqUARVw4+rsyjkJ59DJE6JUOPKWbdl9J5ybyKk6yu3PYJ6e8C xEzDYQSQoVubVyXwBaSDFYXH5mfN2n5RJsVY2G4Lgo YLntFxD5Idl3d9hojA1FvS+4GxHxj+Lyh4+5ETFvXKd82IcN7BrEft662K0llVcNqQkYp0YcMNKyU8wC J5GKLdTr/g9PTaqrKR4AUC6oTRtn8pqe3azb5l0xZ3esZ8sOCGXVtvaJaRfa8kR0jHqOcnoxkF3srjCB IE30yK/FrIiIvM9ucx9yb6xaXowzRGAo5JXAT/UORP FPKxCPlYRBlPVMYTlfFEZTxR+d9Z+d85+Ez8MAOB3iwEFq2wwCbEw9IKcuQzW0zABaFvHMj5Kj1YKut/ 5BdQFc3x+QiU6JfR0IGLngN6fAQ0ta81H+kSIrQB+J1FF/yUnm4QgEVimRWCQMEPQVJEmFrHD7vgfazV Njd5sSZkjOqCNFAaQGvoALUZKXNct4pzNkbWMh2Pyk O8hPfMIXTHlhSHBplZCJ09leRK2EEcLTLDZfGSI47jYAZ5AnfUypQT4Ma2+VjCJ08+qtJ9KEuikUnvYD 88ApFGpBERIkKkE+uUqNcVpOvEAS7jqYAKVhlTuf0q3PjegrF4LYWS0YmGIX8OkEvpmh47mACvaYtGfn 7Q2Q86+0FnP+ioI9533GjbQu/EO8StwTqXir6A7V76 +8EjcheHMmVFrQTqRYpN9xZJC8G2MoLbZDCoN0ugUJ3HfAtVcq1whCM3X8am6wrC3oGVfxQDBkzxe4RU 3bnCF9xYMIIdGacLpc1E3ysDF4flVLlOnLJ177kOFxPghrrJOw2Derql3nZ3ZOwWD5Adypzjyknsm0RJ RQT+gfG/s/G/c/SuVTGe6zvsSUAP+YD/nY3/nY3xRO N/Z+N/Z+N/Z+N/Z+N/FsvsH0zpwiFozhvo+kTj+kTj+kTjf+zjWwbFrfEcUZ4Xz9FwfV9agVBrm2giGC 4Hk/NK1NyxDZ7DntscroJzN8p+0ZxzonM+rF1V64yi8zT9u6X+9DeDnchc6cRSvTa8RxeUTi9S0VqvaV nWEtOVa3nfvPdQNkjcL1ajAjI9GQRJQ/kpJebH877P usnuKXHkbUwvRx0GNG7+paGQrCBPiOI9j552dI2gDju7wsDy6dYmwiV3ifzI/c75SGK/g9a83cyot9C/ r3QJzN2XT5Ixf/Ts3Miq7lA9B6ykuHj0VRB56TBMWPiuhhohUhIfamFmJ4lluJ/A0F9Ryy/Og/tYxoWx SW1JraW1BHYrBXNwq1mEppv/++Z2q27PJC7Kvf/7t7 /1qw472qe8//U59k2J5P4b3mrcg+zrj7/49OPPP/+7t3/53cUbiYUIr8sVyamhG0gw2ZmHjBdl/hzU1s 8/fffJz/cbdcyDBbI7CTBu/xrNHcd/89sv/gtgw9269/7j9+/qov4i987++fjzt99+8sf6366+5rP3// zzd1//+uNPf/i05bn6t933/8iC503+fvf+68/effvx 2m2uui5E2vM+oLj003tYN/jyn24t92/krg1IV6//1a//ymH3G/g+7Isvv/mbs6ujyFXRh65q8w8ma3/8 7bu3j3/5xZevW/n8dU9/4hPAcwaq4y9///FHa9e26wtg0b/9nX5W0f2cARk68zG//CuH3a/1hG02r43+ 9+1nX77u+IOaN72am/vxZ59//MvP3/2Vk+7+ep/0yZ 9+/Lc//PmH73//9q//9fbtH/74x+/+/Ofvv/gk9962+t2Pf/j+j2//8jfN/+Vv3/3773fUC6L3x/2k/C FmW06A0vk//wxt9c5Wr5CwH/zwi3/lnRe6rgw5db/2Jcr1LQGg8jh/C3Q71w+6/v76+wy3891AkpKT1+ i5n835czcxpT+/+nWak4CFzoHtuT/XT+57LEf96//+ 375/Vkh546mht40+1j8AbK514PTtTrld/+VdVwNd90EIhWRqmkx3vOcY/BAMxYKKcUUgUBSHrcT2a/3+ x//4+7c/f/en863I++sd+NODdt6JuuXj7bmLfojHqr/gV1+//eHH//j+z//7L24+qj/W/JK3pFtA+fhp 3Pc6gxuxoD3+P1/3/oc//fjT6nc+pF7BR8H14G/e/+ I373/C76xiKi4piG+hs31Q+3xEekZd5U2a28sgs65aFXQbz0kGFFg+elsH++rnX//8/dt3/+f7f//Lkf M8uHb9/J9++8XPb1u/Rt/sb//153/4603ptE3RN3j/w3d//OARrw/vN832h5305+9/+J6Uv4IwoC7+hx 9/bt2adhe+8V//8tzHil//6U8/fPTxBw3+sL2f/+l3 G26pDgaAVXRE3Jjzv/+7//xvF321mc+N5t57y6F8a60euSh29fV//49Xt/v9R1++/9W7r//vqlch1S1+ 8te/fvfF+28+4iRwv+7+/4fcHzfyNnPO/eq7//I1S8g656+8nhVEKkc2N32x8kw50u2K+du7T9+/po17 WnzjG+0Lgw859/RrTj6JygHjG/jt408++fQ3O6xDil Nr+yhk2lx8/naIqOsjAjZgCVC7bhMuxOujccRfWswEBRviFLUmOip8FG8LlZMoIXGvL6R3RYYtcx9lGR IqBNEvjVTzHrIcEOZZZO3PbRZkAZ7LTNl5VLTcIZPdKuPhQTTgpkX4XDMwEUBlWAFnN3IfunWxcZFhZC AgUj4+II1yc3TkZlSiTVPlAsy1VJ5PsAQdCL3GkIGb pV9zvqNwP696oyLtLSQkVhrbk5FiQWqkLRFOZD1MFEY1XCS1DHNtJm9+YX6nu6OvKxMsFUMeSym2SH8I lERey1DbVL9ZR4TnEODnDJEDTKA8p1GjUQXphiqkugtlU1NsKWA2uE0oCXN4DBDwQPozMYXtSPHoOYI7 NIMlKNhsMDOyZVKyVKCxMWBqLVf5cFXzHD9ZQ1JyYJ WoKZYVGXHsobVwWr8vQSNWFzGICLnlZJgNIV6wJDG4MRN9DJdaX4A3OxpcB1QtIZ6EQ8DdQPQwEIWETP UdgjNlJB3GcbYcrQ1kIWnQEIUAVCtSBWfeJpE5p26dgySDWBTfOKMrNYqbQNLxMXOeGPEfDFXaNCIsSD SeQPYdIC1YG5ScZSJuETNUXGM3t6AzRZJkkztsliqb Tw1hduAbLpn+UorrSZZil8VzVGgoT2M8kPHbR0KsI3OrZE7OoSQiSEqzRCTrRZSrRXOrD839ypEgTS0+ WX3vh1RiFjpsAUIHOALfQBLePIAhJGS2UtQgLTKcYIPcKRQrMtF9EyLwFyOTAOKsQLB6OzWgCBOuQYQe POBnAAodQHPyVWVvKEN3DYIfKLLkCB5fJoEwDZAhRx UhEfIdIOGzBBJhwvEMFTJmFYAxBUMfTRY4FTFaUPEhJCxkJSVhRIGuSUA0BQZaVRTkCF8qIjFgEPOgEK HyTechSWCgDFGpuoQJANMfVWUmFUA1KnDnJRArWZPjGMxnKEPyHNKmJuj7OWDjGLNwPO6hDqZaWVOmMD X5WSvhDLYgWOCrixTOYKLxCITwVGFyCnMfESBmGJEi BCtiRHIcWJRyFcVgJFGtAXXeCC3qUeYyBFVsMTC5FQQoLOQdHJWasrSOLRHoGBZkMFh7PAIsXGJsKWPu TEdfNFOcAGXqMXB3XGQtIHHaSS3hZuLqMTVvVUHbYVRaDHClPVOrzwGVGPDxQPWsBOM7IXEoXVBgVDPt JJgdSAYnMTEnOeq2MRIfXMAuKS6nWoQtDKLqGCB9CP VrWPSkDPRschWJGDPuFWK3ZdnpPWSaQBGpZNEiEXwgEOXrPRJaRaN8UOBzQCFjJX5pIaQzJBAnKHE0Tx DnIMVnRJQzvrKFWAPsPSXoOWL4ZhCgHHKiIECvQXrhGVEwWNFmDOToKXW1HJT1RGQgDnXmNMeuALWTCK cNN1QoqnYkUqIID0uuKf7iGpFmWLBOH8Qto8WvHF AwIFIKCj4+YgK6RVT0lQBuOyk3YcC9KVatRYAJUv== ID Date Data Source [id number] 05/10/2020 05:09:07 AM [facility] Name Value Range Interpretation Code Description Data Vicky rce(s) Supporting Document(s) Color of Urine [facility] Clarity of Urine [facility] Specific gravity of Urine by Refractometry automated 1.003 -1.030 H [facility] pH of Urine by Automated test strip 6.0 5.0-8.0 [facility] Protein [Mass/volume] in Urine by Automated test strip Neg [facility] Glucose [Mass/volume] in Urine by Automated test strip Neg [facility] Ketones [Mass/volume] in Urine by Automated test strip Neg [facility] Bilirubin.total [Presence] in Urine by Automated test strip Negative [facility] Hemoglobin [Presence] in Urine by Automated test strip Neg [facility] Leukocyte esterase [Presence] in Urine by Automated test strip Negative [facility] Nitrite [Presence] in Urine by Automated test strip Negati ve [facility] Leukocytes [#/area] in Urine sediment by Automated count 0 /HPF 0 -5 [facility] Erythrocytes [#/area] in Urine sediment by Automated count 0 /HPF 0-3 [facility] ID Date Data Source [id number] 05/10/2020 03:07:09 AM [facility] Name Value Range Interpretation Code Description Data Vicky rce(s) Supporting Document(s) pH of Venous blood 7.33 7.36-7.41 L [facility] Carbon dioxide [Partial pressure] in Venous blood 49 mmHg 40-45 H [facility] Oxygen [Partial pressure] in Venous blood 26 mmHg [facility] Base excess standard in Venous blood by calculation 0 mmol/L [facility] Oxygen saturation Calculated from oxygen partial pressure in Venous blood 43 % 60-85 L [facility] Lactate [Moles/volume] in Venous blood 0.4 mmol/L 0.5-2.2 L [facility] Bicarbonate [Moles/volume] in Venous blood 28 mmol/L [facility] ID Date Data Source [id number] 05/10/2020 03:08:59 AM [facility] Name Value Range Interpretation Code Description Data Vicky rce(s) Supporting Document(s) Troponin I.cardiac [Mass/volume] in Blood 0.06 ng/mL 0.00-0.08 [facility] ID Date Data Source [id number] 05/10/2020 03:07:[address] [facility] Value Range Interpretation Code Description Data Vicky rce(s) Supporting Document(s) Sodium [Moles/volume] in Blood 140 mmol/L 136-145 [facility] Potassium [Moles/volume] in Blood 3.5 mmol/L 3.4-5.1 [facility] Chloride [Moles/volume] in Blood 104 mmol/L 98-107 [facility] Carbon dioxide, total [Moles/volume] in Blood 26 mmol/L 22-29 [facility] Calcium.ionized [Moles/volume] in Blood 1.23 mmol/L 1.13-1.32 [facility] Glucose [Mass/volume] in Blood 105 mg/dL 70-140 [facility] Urea nitrogen [Mass/volume] in Blood 10 mg/dL 8-23 [facility] Creatinine [Mass/volume] in Blood 0.8 mg/dL 0.50-0.90 [facility] Hematocrit [Volume Fraction] of Blood 33 % 36-45 L [facility] Hemoglobin [Mass/volume] in Blood by calculation 11.2 g/dL 11.5-15.5 L [facility] ID Date Data Source [id number] 05/15/2020 08:17:05 AM [facility] Service Cmnt XXX-Imp : Specimen source n ot given.Microorganism XXX Cult : No growth 5 days Name Value Range Interpretation Code Description Data Vicky rce(s) Supporting Document(s) ID Date Data Source [id number] 05/15/2020 08:17:05 AM [facility] Service Cmnt XXX-Imp : Specimen source n ot given.Microorganism XXX Cult : No growth 5 days Name Value Range Interpretation Code Description Data Vicky rce(s) Supporting Document(s) ID Date Data Source [id number] 05/10/2020 05:52:00 AM [facility] Name Value Range Interpretation Code Description Data Vicky rce(s) Supporting Document(s) Blood group antibodies identified in Serum or Plasma [facility] Blood bank comment [facility] ID Date Data Source [id number] 05/10/2020 02:48:00 AM EST [facility] Name Value Range Interpretation Code Description Data Vicky rce(s) Supporting Document(s) SARS-CoV-2 RNA [facility] This lab was ordered by [facility] and reported by [facility] ID Date Data Source [id number] 05/10/2020 03:21:40 AM [facility] Name Value Range Interpretation Code Description Data Vicky rce(s) Supporting Document(s) Leukocytes [#/volume] in Blood by Automated count 14.8 10*3/uL 4-10 H [facility] Erythrocytes [#/volume] in Blood by Automated count 4.13 10*6/uL 4.1- 5.3 [facility] Hemoglobin [Mass/volume] in Blood 10.3 g/dL 11.5-15.5 [facility] Hematocrit [Volume Fraction] of Blood by Automated count 32.4 % 3 6-45 [facility] Erythrocyte mean corpuscular volume [Entitic volume] by Auto mated count 78.5 fL 80-96 [facility] Erythrocyte mean corpuscular hemoglobin [Entitic mass] by Automated count 24.8 pg 27-33 [facility] Erythrocyte mean corpuscular hemoglobin concentration [Mass/volume] by Automated count 31.6 g/dL 32.0-36.0 [facility] E[facility] distribution width [Ratio] by Automated count 16.8 % 11.5-14.5 [facility] Platelets [#/volume] in Blood by Automated count 253 10*3/uL 150-400 [facility] Differential cell count method - Blood [facility] Neutrophils/100 leukocytes in Blood by Automated count 74 % [facility] Lymphocytes/100 leukocytes in Blood by Automated count 9 % [facility] Monocytes/100 leukocytes in Blood by Automated count 12 % [facility] Eosinophils/100 leukocytes in Blood by Automated count 4 % [facility] Basophils/100 leukocytes in Blood by Automated count 1 % [facility] Neutrophils [#/volume] in Blood by Automated count 10.99 10*3/uL 1.8- 7.0 H [facility] Lymphocytes [#/volume] in Blood by Automated count 1.28 10*3/uL 1.2-4 .0 [facility] Monocytes [#/volume] in Blood by Automated count 1.84 10*3/uL 0-0.8 H [facility] Eosinophils [#/volume] in Blood by Automated count 0.59 10*3/uL 0-0.5 H [facility] Basophils [#/volume] in Blood by Automated count 0.13 10*3/uL 0-0.2 [facility] Nucleated erythrocytes/100 leukocytes [Ratio] in Blood by Automated count 0 /100{WBCs} 0-0 [facility] ID Date Data Source [id number] 05/10/2020 03:50:05 AM [facility] Name Value Range Interpretation Code Description Data Vicky rce(s) Supporting Document(s) Bicarbonate [Moles/volume] in Serum 24 mmol/L 22-29 [facility] Chloride [Moles/volume] in Serum or Plasma 106 mmol/L 98-107 [facility] Creatinine [Mass/volume] in Serum or Plasma 0.71 mg/dL 0.50-0.90 [facility] Glucose [Mass/volume] in Serum or Plasma 105 mg/dL 70-140 [facility] Potassium [Moles/volume] in Serum or Plasma 3.3 mmol/L 3.4-5.1 [facility] Sodium [Moles/volume] in Serum or Plasma 137 mmol/L 136-145 [facility] Urea nitrogen [Mass/volume] in Serum or Plasma 10 mg/dL 8-23 [facility] Anion gap 3 in Serum or Plasma 7 mmol/L 8-15 L [facility] Osmolality of Serum or Plasma by calculation 283 mosm/kg 275-300 [facility] Creatinine/Urea nitrogen [Mass Ratio] in Serum or Plasma 14 [facility] Calcium [Mass/volume] in Serum or Plasma 7.9 mg/dL 8.8-10.2 L [facility] Glomerular filtration rate/1.73 sq M pre dicted among non-blacks [Volume Rate/Area] in Serum or Plasma by Creatinine-based formula (MDRD) 84 mL/min/1.73m2 >60 [facility] Glomerular filtration rate/1.73 sq M pre dicted among blacks [Volume Rate/Area] in Serum or Plasma by Creatinine-based formula (MDRD) >60 [facility] ID Date Data Source [id number] 05/10/2020 03:50:[address] [facility] Value Range Interpretation Code Description Data Vicky rce(s) Supporting Document(s) Albumin [Mass/volume] in Serum or Plasma by Bromocresol green (BCG) dye binding method 2.7 g/dL 3.5-5.2 [facility] Bilirubin.total [Mass/volume] in Serum or Plasma 0.3 mg/dL <1.2 [facility] Bilirubin.direct [Mass/volume] in Serum or Plasma <0.3 [facility] Alkaline phosphatase [Enzymatic activity/volume] in Serum or Plasma 138 U/L 35-104 H [facility] Aspartate aminotransferase [Enzymatic activity/volume] in Serum or Plasma 15 U/L <32 [facility] Alanine aminotransferase [Enzymatic activity/volume] in Seru m or Plasma 12 U/L <33 [facility] Protein [Mass/volume] in Serum or Plasma 5.5 g/dL 6.4-8.3 L [facility] ID Date Data Source [id number] 05/10/2020 03:50:[address] [facility] Value Range Interpretation Code Description Data Vicky rce(s) Supporting Document(s) Troponin T.cardiac [Mass/volume] in Serum or Plasma <0.01 [facility] ID Date Data Source [id number] 05/10/2020 03:50:[address] [facility] Value Range Interpretation Code Description Data Vicky rce(s) Supporting Document(s) Thyrotropin [Units/volume] in Serum or Plasma 0.173 u[IU]/mL 0.270-4. 200 L [facility] ID Date Data Source [id number] 05/10/2020 04:35:[address] [facility] Value Range Interpretation Code Description Data Vicky rce(s) Supporting Document(s) Natriuretic peptide.B prohormone N-Terminal [Mass/volu me] in Serum or Plasma 521 pg/mL <125 [facility] ID Date Data Source [id number] 05/10/2020 04:35:[address] [facility] Value Range Interpretation Code Description Data Vicky rce(s) Supporting Document(s) Lipase [Enzymatic activity/volume] in Serum or Plasma 14 U/L 13-6 0 [facility] ID Date Data Source [id number] 05/10/2020 04:35:[address] [facility] Value Range Interpretation Code Description Data Vicky rce(s) Supporting Document(s) Magnesium [Mass/volume] in Serum or Plasma 1.8 mg/dL 1.6-2.4 [facility] ID Date Data Source [id number] 05/10/2020 04:42:[address] [facility] Value Range Interpretation Code Description Data Vicky rce(s) Supporting Document(s) aPTT in Platelet poor plasma by Coagulation assay 33.4 s 24.0-33. 0 H [facility] ID Date Data Source [id number] 05/10/2020 04:42:[address] [facility] Value Range Interpretation Code Description Data Vicky rce(s) Supporting Document(s) Prothrombin time (PT) 15.0 s 12.5-14.9 H [facility] INR in Platelet poor plasma by Coagulation assay 1.16 [facility] Routine intensity oral anticoagulation I NR is typically 2.0-3.0. Target INR must be clinically individualized. ID Date Data Source [id number] 05/10/2020 09:27:[address] [facility] Value Range Interpretation Code Description Data Vicky rce(s) Supporting Document(s) Phosphate [Mass/volume] in Serum or Plasma 2.4 mg/dL 2.5-4.5 L [facility] ID Date Data Source [id number] 05/10/2020 05:49:[address] [facility] Value Range Interpretation Code Description Data Vicky rce(s) Supporting Document(s) ABO and Rh group [Type] in Blood [facility] Inconclusive Result, repeat testing requ ired. Blood bank comment [facility] Inconclusive Result, repeat testing requ ired. 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 [facility] Patient has symptoms related to [facility] When did you start to experience these symptoms [Date and time] [PhenX] [id number] [facility] Patient was hospitalized because of this condition [facility] patient was admitted to ICU for condition [facility] Patient resides in a congregate care setting [facility] status [facility] ID Date Data Source [id number] 05/10/2020 05:04:03 AM [facility] Service Cmnt XXX-Imp : NoneRespiratory P CR Panel : PCR ResultsMicroorganism XXX Cult : See Labs Tab for 2019 nCoV RT-PCR resultsHAdV DNA QI SHAWNA+non-probe : Not DetectedHCoV [id number] Nph QI SHAWNA+non-probe : Not DetectedHCoV [id number] Nph QI SHAWNA+non-probe : Not [id number] RNA Nph QI SHAWNA+non-probe : Not [id number] RNA Upper resp QI SHAWNA+probe : Not [...] DNA Nph Q SHAWNA+non-probe : Not DetectedB [id number] DNA Nph SHAWNA+non-probe : Not Detected Name Value Range Interpretation Code Description Data Vicky rce(s) Supporting Document(s) ID Date Data Source [id number] 05/10/2020 03:29:55 AM [facility] Name Value Range Interpretation Code Description Data Vicky rce(s) Supporting Document(s) Lactate [Moles/volume] in Serum or Plasma 0.6 mmol/l 0.5-2.2 [facility] ID Date Data Source [id number] 05/09/2020 08:53:00 PM EST [facility] Name Value Range Interpretation Code Description Data Vicky rce(s) Supporting Document(s) Appearance, Urine Laboratory test result Normal (applies to non-numeric results) [facility] ([facility] Color, Urine Laboratory test result Normal (applies to non -numeric results) [facility] ([facility] Specific [place] Urine Auto Laboratory test result 1.002-1.035 Above high normal [facility] ([facility] ) PH,Urine 6.0 units 5.0-9.0 Normal (applies to non-numeric resul ts) [facility] ([facility] Glucose, Urine (Ua) Auto Laboratory test result Normal (applies to non-numeric results) [facility] ([facility] ) Urobilinogen, Urine Auto 0.2 mg/dL 0.0-2.0 Normal (applies to non-numeric results) [facility] ([facility] ) Ketone, Urine Auto Laboratory test result Normal (applies to non-numeric results) [facility] ([facility] ) Protein, Urine Auto Laboratory test result Above high norm al [facility] ([facility] Bilirubin, Urine Auto Laboratory test result Nor mal (applies to non-numeric results) [facility] ([facility] ) Nitrite, Urine Auto Laboratory test result Angela l (applies to non-numeric results) [facility] ([facility] Leukocyte Esterase, Urine Auto Laboratory test result Abov e high normal [facility] ([facility] RBC, Urine Auto 3 /HPF 0-3 Normal (applies to non-numeric results) [facility] ([facility] WBC, Urine Auto 16 /HPF 0-3 Above high normal [facility] ([facility] Blood, Urine Blood Laboratory test result Normal (applies to non-numeric results) [facility] ([facility] ) Bacteria, Urine Auto Laboratory test result Norm al (applies to non-numeric results) [facility] Squamous Epithelial Cell Ur AU 0 /HPF 0-6 N ormal (applies to non-numeric results) [facility] Hyaline Cast, Urine Auto 0 /LPF 0-1 Normal (applies to non -numeric results) [facility] ([facility] ID Date Data Source [id number] 05/09/2020 07:59:00 PM EST [facility] Name Value Range Interpretation Code Description Data Vicky rce(s) Supporting Document(s) Influenza B Amplification Laboratory test result Normal (applies to non- numeric results) [facility] ([facility] Negative results do not preclude influen za or RSV virus infection and should not be used as the sole basis for treatment or other patient management decisions. Influenza A Amplification Laboratory test result Normal (applies to non- numeric results) [facility] ([facility] Negative results do not preclude influen za or RSV virus infection and should not be used as the sole basis for treatment or other patient management decisions. RSV Amplification Laboratory test result Normal (applies to non-numeric results) [facility] ([facility] ) Negative results do not preclude influen za or RSV virus infection and should not be used as the sole basis for treatment or other patient management decisions. Laboratory test finding (navigational concept) Laboratory test r esult Normal (applies to non-numeric results) [facility] ([facility] A false negative result may occur [...] pathogens. DISCLAIMER: Testing was performed using the [employer] SARS-CoV-2 test. This test was developed and its performance characteristics determined by [employer]. This test has not been FDA cleared [...] or revoked sooner. ID Date Data Source [id number] 05/09/2020 07:59:00 PM EST [facility] Name Value Range Interpretation Code Description Data Vicky rce(s) Supporting Document(s) SARS coronavirus 2 RNA [Presence] in Res piratory specimen by [facility] with probe detection [facility] This lab was ordered by [facility] a nd reported by [facility]. ID Date Data Source [id number] 05/09/2020 06:20:00 PM EST [facility] ([facility] Name Value Range Interpretation Code Description Data Vicky rce(s) Supporting Document(s) Lipoprotein lipase [Enzymatic activity/volume] in Serum or P lasma 133 U/L 73-393 Normal (applies to non-numeric results) [facility] ([facility] <content>note:<nlbl:[email or web address]_changed> </content>
<content></content> ID Date Data Source [id number] 05/09/2020 06:20:00 PM EST [facility] ([facility] Name Value Range Interpretation Code Description Data Vicky rce(s) Supporting Document(s) Blood Urea Nitrogen 14 mg/dL 7-18 Normal (applies to non-nume catie results) [facility] ([facility] Glucose, [...] Little GFR Left</content>
<content>ESRD GFR <15 on CABLE LAYER</content>
<content></content> Creatinine For GFR 0.89 mg/dL 0.55-1.30 Normal (applies to non -numeric results) [facility] ([facility] Sodium Level 138 meq/L 136-145 Normal (applies to non-numeric res ults) [facility] ([facility] Potassium Serum 3.6 meq/L 3.5-5.1 Normal (applies to non-numeric results) [facility] ([facility] Carbon Dioxide Level 27 meq/L 21-32 Normal (applies to non-num epifanio results) [facility] ([facility] Chloride Level 101 meq/L 98-107 Normal (applies to non-numeric r esults) [facility] ([facility] Calcium Level 9.1 mg/dL 8.8-10.2 Normal (applies to non-numeric re sults) [facility] ([facility] Anion Gap 10 meq/L 8-16 Normal (applies to non-numeric resul ts) [facility] ([facility] ID Date Data Source [id number] 05/09/2020 06:20:00 PM EST [facility] ([facility] Name Value Range Interpretation Code Description Data Vicky rce(s) Supporting Document(s) Alt/SGPT 22 U/L 12-78 Normal (applies to non-numeric resul ts) [facility] ([facility] Ast/Sgot 24 U/L 7-37 Normal (applies to non-numeric resul ts) [facility] ([facility] Bilirubin,Direct 0.2 mg/dL 0.0-0.2 Normal (applies to non-numeric results) [facility] ([facility] Bilirubin,Total 0.4 mg/dL 0.2-1.0 Normal (applies to non-numeric results) [facility] ([facility] Alkaline Phosphatase 174 U/L 45-117 Above high normal [facility] ([facility] Albumin 2.7 GM/DL 3.2-5.2 Below low normal [facility] ( [facility] Total Protein 6.7 GM/DL 6.4-8.2 Normal (applies to non-numeric re sults) [facility] ([facility] Albumin/Globulin Ratio 0.7 1.2-2.2 Below low normal [facility] ID Date Data Source [id number] 05/09/2020 06:20:00 PM EST [facility] ([facility] Name Value Range Interpretation Code Description Data Vicky rce(s) Supporting Document(s) CPK Creatine Phosphokinase 18 U/L 26-192 Below low normal [facility] ([facility] MB/CK Relative Index 5.56 Above high normal [facility] ([facility] <content>DIAGNOSIS CRITERIA</content>
<content>MMB ng/ml Relative Index (RI)</content>
<content>NON-AMI < or = 5 N/A</content>
<content>AQUINO ZONE > 5 < or = 4</content>
<content>AMI > 5 > 4</content>
<content></content> CK-MB Value Mass Laboratory test result Normal ( applies to non-numeric results) [facility] ([facility] ) Troponin I Laboratory test result Normal (applies to non-n umeric results) [facility] ([facility] <content>Troponin I Reference Interval f or Siemens Geary LOCI:</content>
<content></content>
<content>99th Percentile= 0.00-0.045 ng/ml</content>
<content></content>
<content>Risk Stratification:</content>
<content><= 0.10 ng/ml Decreased Risk for Adverse Clinical</content>
<content>Events.</content>
<content>0.10-1.50 ng/ml Increased Risk for Adverse Clinical</content>
<content>Events. Evaluation of additional</content>
<content>criterion and/or repeat testing in 2-6</content>
<content>hours is suggested to rule out myocardial</content>
<content>damage.</content>
<content>>= 1.50 ng/ml Indicative of Myocardial Injury.</content>
<content></content> ID Date Data Source [id number] 05/09/2020 06:20:00 PM EST [facility] ([facility] Name Value Range Interpretation Code Description Data Vicky rce(s) Supporting Document(s) aPTT in Platelet poor plasma by Coagulation assay 36.0 s 24.2-38.5 Normal (applies to non-numeric results) [facility] ([facility] Lactate [Mass/volume] in Serum or Plasma 1.1 mmol/L 0.4-2.0 Normal (applies to non-numeric results) [facility] ([facility]) <content>note:<nlbl:demographic_changed> </content>
<content>Y/N query for Sepsis Lactate Rule: Y</content>
<content></content> ID Date Data Source [id number] 05/09/2020 06:20:00 PM EST [facility] ([facility] Name Value Range Interpretation Code Description Data Vicky rce(s) Supporting Document(s) Prothrombin Time 13.7 s 12.5-14.3 Normal (applies to non-numeric results) [facility] ([facility] Inr 1.03 Normal (applies to non-numeric resul ts) [facility] ([facility] THERAPUTIC HUMAN INR VALUES INDICATIONS NORMAL RANGES PROPHYLAXIS/TREATMENT OF: VENOUS THROMBOSIS 2.0-3.0 PULMONARY EMBOLISM 2.0-3.0 PREVENTION OF SYSTEMIC EMBOLISM FROM: TISSUE HEART VALVES 2.0-3.0 ACUTE MYOCARDIAL INFARCTION 2.0-3.0 VALVULAR HEART DISEASE 2.0-3.0 ATRIAL FIBRILLATION 2.0-3.0 MECHANICAL VALVES(HIGH RISK) 2.5-3.5 RECURRENT MYOCARDIAL INFARCTION 2.5-3.5 ID Date Data Source [id number] 05/09/2020 06:20:00 PM EST [facility] ([facility] Name Value Range Interpretation Code Description Data Vicky rce(s) Supporting Document(s) White Blood Count 20.6 10 4.0-10.0 Above high normal [facility] ([facility] Hemoglobin 11.9 g/dL 12.0-15.5 Below low normal [facility] ( [facility] Hematocrit 38.5 % 36.0-47.0 [...] 3.2 % 0.0-3.0 Above high normal [facility] ([facility] Sherman % 10.5 % 0.0-5.0 Above high normal [facility] ([facility] Nucleated Red Blood Cell % 0.0 % 0-0 Normal (applies to n on-numeric results) [facility] ([facility] Immature Granulocyte % 1.0 % 0-3.0 Normal (applies to non-n umeric results) [facility] ([facility] Lymph # 1.1 10 1.5-5.0 Below low normal [facility] ( [facility] Neutrophils # 16.4 10 1.5-8.5 Above high normal [facility] ([facility] Sherman # 2.2 10 0.0-0.8 Above high normal [facility] ([facility] Eos # 0.7 10 0.0-0.5 Above high normal [facility] ([facility] Baso # 0.1 10 0.0-0.2 Normal (applies to non-numeric resul ts) [facility] ([facility] ID Date Data Source [id number] 05/05/2020 11:53:00 AM EST [facility] ([facility] Name Value Range Interpretation Code Description Data Vicky rce(s) Supporting Document(s) WBC 11.1 10E3/uL 4.1-10.9 Above high normal [facility] ([facility] NORMAL RANGES Age WBC [...] HCT IS 5% LESS SOURCE FOR DATA: [facility] 1800 OPERATION MANUAL( AUTOMATED BLOOD COUNTS AND [...] HCT IS 5% LESS SOURCE FOR DATA: [facility] 1800 OPERATION MANUAL( AUTOMATED BLOOD COUNTS AND [...] HCT IS 5% LESS SOURCE FOR DATA: [facility] 1800 OPERATION MANUAL( AUTOMATED BLOOD COUNTS AND [...] Normal RBC 4.93 10E6/uL 4.20-6.30 [facility] ([facility] NORMAL RANGES Age WBC RBC [...] HCT IS 5% LESS SOURCE FOR DATA: [facility] 1800 OPERATION MANUAL( AUTOMATED BLOOD COUNTS AND [...] MCH 25.4 pg 26.0-32.0 Below low normal [facility] ( [facility] NORMAL RANGES Age WBC [...] HCT IS 5% LESS SOURCE FOR DATA: [facility] 1800 OPERATION MANUAL( AUTOMATED BLOOD COUNTS AND [...] >32 mL/min Normal MCV 82.4 fL 80.0-97.0 [facility] ([facility] NORMAL RANGES Age WBC [...] >32 mL/min Normal PLT 440 10E3/uL 140-440 [employer] ([facility] NORMAL RANGES Age [...] HCT IS 5% LESS SOURCE FOR DATA: [facility] 1800 OPERATION MANUAL( AUTOMATED BLOOD COUNTS AND [...] RDW-CV 16.1 % 11.5-14.5 Above high normal [facility] ([facility] NORMAL RANGES [...] HCT IS 5% LESS SOURCE FOR DATA: [facility] 1800 OPERATION MANUAL( AUTOMATED BLOOD COUNTS AND [...] HCT IS 5% LESS SOURCE FOR DATA: [facility] 1800 OPERATION MANUAL( AUTOMATED BLOOD COUNTS AND [...] >32 mL/min Normal MXD% 10.8 % 0.1-24.0 [facility] ([facility] NORMAL [...] HCT IS 5% LESS SOURCE FOR DATA: [facility] 1800 OPERATION MANUAL( AUTOMATED BLOOD COUNTS AND [...] HCT IS 5% LESS SOURCE FOR DATA: [facility] 1800 OPERATION MANUAL( AUTOMATED BLOOD COUNTS AND [...] >32 mL/min Normal Lym% 11.6 % 10.0-58.5 [facility] ([facility] NORMAL [...] HCT IS 5% LESS SOURCE FOR DATA: [facility] 1800 OPERATION MANUAL( AUTOMATED BLOOD COUNTS AND [...] Neut# 8.6 % 2.0-7.8 Above high normal [facility] ([facility] NORMAL RANGES Age WBC [...] HCT IS 5% LESS SOURCE FOR DATA: [facility] 1800 OPERATION MANUAL( AUTOMATED BLOOD COUNTS AND [...] >32 mL/min Normal Lym# 1.3 10E3/uL 0.6-4.1 [facility] ([facility] NORMAL RANGES Age [...] HCT IS 5% LESS SOURCE FOR DATA: [facility] 1800 OPERATION MANUAL( AUTOMATED BLOOD COUNTS AND [...] >32 mL/min Normal MPV 9.9 fL 9.0-13.0 [facility] ([facility] NORMAL RANGES Age WBC [...] HCT IS 5% LESS SOURCE FOR DATA: [facility] 1800 OPERATION MANUAL( AUTOMATED BLOOD COUNTS AND [...] >32 mL/min Normal MXD# 1.2 10E3/uL 0.0-1.8 [employer] ([facility] NORMAL RANGES Age [...] HCT IS 5% LESS SOURCE FOR DATA: [employer] 1800 OPERATION MANUAL( AUTOMATED BLOOD COUNTS [...] >32 mL/min Normal ID Date Data Source [id number] 05/05/2020 11:53:00 AM EST [facility] ([facility] Name Value Range Interpretation Code Description Data Vicky rce(s) Supporting Document(s) Glu 107 mg/dL 70-110 [facility] ([facility] NORMAL RANGES Age WBC [...] HCT IS 5% LESS SOURCE FOR DATA: [facility] 1800 OPERATION MANUAL( AUTOMATED BLOOD COUNTS AND [...] above >32 mL/min Normal BUN 9 mg/dL 8- [facility] ([facility] NORMAL RANGES Age WBC [...] HCT IS 5% LESS SOURCE FOR DATA: [facility] 1800 OPERATION MANUAL( AUTOMATED BLOOD COUNTS AND [...] >32 mL/min Normal Creat 0.9 mg/dL 0.5-1.0 [facility] ([facility] [...] HCT IS 5% LESS SOURCE FOR DATA: [facility] 1800 OPERATION MANUAL( AUTOMATED BLOOD COUNTS AND [...] >32 mL/min Normal Na 137 mmol/L 136-[address] [facility] ([facility] NORMAL [...] HCT IS 5% LESS SOURCE FOR DATA: [facility] 1800 OPERATION MANUAL( AUTOMATED BLOOD COUNTS AND [...] >32 mL/min Normal BUN/Creatinine Ratio 10 Calc [facility] ([facility] NORMAL RANGES Age [...] HCT IS 5% LESS SOURCE FOR DATA: [facility] 1800 OPERATION MANUAL( AUTOMATED BLOOD COUNTS AND [...] >32 mL/min Normal K 3.9 mmol/L 3.5-5.[address] [facility] ([facility] NORMAL RANGES Age WBC RBC HGB [...] HCT IS 5% LESS SOURCE FOR DATA: [facility] 1800 OPERATION MANUAL( AUTOMATED BLOOD COUNTS AND [...] >32 mL/min Normal CL 100.5 mmol/L 98.0-107.0 [facility] ([facility] NORMAL RANGES Age WBC RBC [...] HCT IS 5% LESS SOURCE FOR DATA: [facility] 1800 OPERATION MANUAL( AUTOMATED BLOOD COUNTS AND [...] >32 mL/min Normal Co2 22.1 mmol/L 22.0-29.0 [facility] NORMAL RANGES Age WBC RBC HGB [...] >32 mL/min Normal Alb 3.8 g/dL 3.4-4.8 [facility] ([facility] NORMAL RANGES Age [...] HCT IS 5% LESS SOURCE FOR DATA: [facility] 1800 OPERATION MANUAL( AUTOMATED BLOOD COUNTS AND [...] >32 mL/min Normal CA 10.0 mg/dL 8.6-10.2 [facility] NORMAL RANGES Age WBC RBC [...] HCT IS 5% LESS SOURCE FOR DATA: [facility] 1800 OPERATION MANUAL( AUTOMATED BLOOD COUNTS AND [...] >32 mL/min Normal TP 6.6 g/dL 6.6-8.7 [facility] ([facility] NORMAL [...] HCT IS 5% LESS SOURCE FOR DATA: [facility] 1800 OPERATION MANUAL( AUTOMATED BLOOD COUNTS AND [...] >32 mL/min Normal Globulin 2.8 Calc [facility] ([facility] NORMAL RANGES Age [...] HCT IS 5% LESS SOURCE FOR DATA: [facility] 1800 OPERATION MANUAL( AUTOMATED BLOOD COUNTS AND [...] >32 mL/min Normal A/G Ratio 1.4 Calc [facility] ([facility] NORMAL [...] HCT IS 5% LESS SOURCE FOR DATA: [employer] 1800 OPERATION MANUAL( AUTOMATED BLOOD COUNTS [...] HCT IS 5% LESS SOURCE FOR DATA: [facility] 1800 OPERATION MANUAL( AUTOMATED BLOOD COUNTS AND [...] mL/min Normal Alt (SGPT) 15 U/L 0-41 [facility] ([facility] NORMAL RANGES Age [...] HCT IS 5% LESS SOURCE FOR DATA: [facility] 1800 OPERATION MANUAL( AUTOMATED BLOOD COUNTS AND [...] mL/min Normal Ast (Sgot) 17 U/L 0-40 [facility] ([facility] NORMAL RANGES Age [...] HCT IS 5% LESS SOURCE FOR DATA: [facility] 1800 OPERATION MANUAL( AUTOMATED BLOOD COUNTS AND [...] >32 mL/min Normal Tbili 0.33 mg/dL 0.0-1.2 [facility] ([facility] NORMAL RANGES Age WBC RBC HGB [...] HCT IS 5% LESS SOURCE FOR DATA: [facility] 1800 OPERATION MANUAL( AUTOMATED BLOOD COUNTS AND [...] above >32 mL/min Normal Osmolality-Calculated 273.0 Calc [employer] ([facility] NORMAL RANGES [...] >32 mL/min Normal Anion Gap 18.3 mmol/L [facility] NORMAL RANGES Age [...] HCT IS 5% LESS SOURCE FOR DATA: [facility] 1800 OPERATION MANUAL( AUTOMATED BLOOD COUNTS AND [...] and above >32 mL/min Normal eGFR Non-Afr. Portuguese 63 # [facility] ([facility] [...] HCT IS 5% LESS SOURCE FOR DATA: [facility] 1800 OPERATION MANUAL( AUTOMATED BLOOD COUNTS AND [...] HCT IS 5% LESS SOURCE FOR DATA: [facility] 1800 OPERATION MANUAL( AUTOMATED BLOOD COUNTS AND [...] >32 mL/min Normal ID Date Data Source [id number] 05/02/2020 10:32:00 AM EST [facility] ([facility]) Name Value Range Interpretation Code Description Data Vicky rce(s) Supporting Document(s) Thyroid Stimulating Hormone 0.311 uIU/ML 0.358-3.740 [facility] ([facility]) Free T4 1.79 ng/dL 0.76-1.46 [facility] ([facility]) ID Date Data Source [id number] 05/01/2020 09:44:00 AM EST [facility] ([facility] Name Value Range Interpretation Code Description Data Vicky rce(s) Supporting Document(s) Prothrombin Time 14.6 s 12.5-14.3 Above high normal [facility] ([facility] Inr 1.12 Normal (applies to non-numeric resul ts) [facility] ([facility] THERAPUTIC HUMAN INR VALUES INDICATIONS NORMAL RANGES PROPHYLAXIS/TREATMENT OF: VENOUS THROMBOSIS 2.0-3.0 PULMONARY EMBOLISM 2.0-3.0 PREVENTION OF SYSTEMIC EMBOLISM FROM: TISSUE HEART VALVES 2.0-3.0 ACUTE MYOCARDIAL INFARCTION 2.0-3.0 VALVULAR HEART DISEASE 2.0-3.0 ATRIAL FIBRILLATION 2.0-3.0 MECHANICAL VALVES(HIGH RISK) 2.5-3.5 RECURRENT MYOCARDIAL INFARCTION 2.5-3.5 ID Date Data Source [id number] 04/23/2020 05:11:00 PM EST [facility] ([facility] Name Value Range Interpretation Code Description Data Vicky rce(s) Supporting Document(s) Glucose, Fasting 128 mg/dL 70-100 Above high normal [facility] Creatinine For GFR 1.03 mg/dL 0.55-1.30 Normal (applies to non -numeric results) [facility] ([facility] Blood Urea Nitrogen 21 mg/dL 7-18 Above high normal [facility] ([facility] Glomerular Filtration Rate 55.9 Normal (applies to n on-numeric results) [facility] ([facility] <content>Units are mL/min/1.73 m2</content>
<content></content>
<content>Chronic Kidney Disease Staging per NKF:</content>
<content></content>
<content>Stage I & II GFR >=60 Normal to Mildly Decreased</content>
<content>Stage III GFR 30- 59 Moderately Decreased</content>
<content>Stage IV GFR 15-29 Severely Decreased</content>
<content>Stage V GFR <15 Very Little GFR Left</content>
<content>ESRD GFR <15 on CABLE LAYER</content>
<content></content> Potassium Serum 3.5 meq/L 3.5-5.1 Normal (applies to non-numeric results) [facility] ([facility] Chloride Level 102 meq/L 98-107 Normal (applies to non-numeric r esults) [facility] ([facility] Sodium Level 137 meq/L 136-145 Normal (applies to non-numeric res ults) [facility] ([facility] Carbon Dioxide Level 27 meq/L 21-32 Normal (applies to non-num epifanio results) [facility] ([facility] Anion Gap 8 meq/L 8-16 Normal (applies to non-numeric resul ts) [facility] ([facility] Calcium Level 9.7 mg/dL 8.8-10.2 Normal (applies to non-numeric re sults) [facility] ([facility] ID Date Data Source [id number] 04/23/2020 05:11:00 PM EST [facility] ([facility] Name Value Range Interpretation Code Description Data Vicky rce(s) Supporting Document(s) Alt/SGPT 64 U/L 12-78 Normal (applies to non-numeric resul ts) [facility] ([facility] Ast/Sgot 45 U/L 7-37 Above high normal [facility] ([facility] Alkaline Phosphatase 237 U/L 45-117 Above high normal [facility] ([facility] Bilirubin,Direct 0.1 mg/dL 0.0-0.2 Normal (applies to non-numeric results) [facility] ([facility] Bilirubin,Total 0.4 mg/dL 0.2-1.0 Normal (applies to non-numeric results) [facility] ([facility] Albumin/Globulin Ratio 0.7 1.2-2.2 Below low normal [facility] ([facility] Albumin 3.2 GM/DL 3.2-5.2 Normal (applies to non-numeric resul ts) [facility] ([facility] Total Protein 7.5 GM/DL 6.4-8.2 Normal (applies to non-numeric re sults) [facility] ([facility] ID Date Data Source [id number] 04/23/2020 05:11:00 PM EST [facility] ([facility] Name Value Range Interpretation Code Description Data Vicky rce(s) Supporting Document(s) Prothrombin Time 22.5 s 12.5-14.3 Above high normal [facility] ([facility] Inr 1.93 Normal (applies to non-numeric resul ts) [facility] ([facility] THERAPUTIC HUMAN INR VALUES INDICATIONS NORMAL RANGES PROPHYLAXIS/TREATMENT OF: VENOUS THROMBOSIS 2.0-3.0 PULMONARY EMBOLISM 2.0-3.0 PREVENTION OF SYSTEMIC EMBOLISM FROM: TISSUE HEART VALVES 2.0-3.0 ACUTE MYOCARDIAL INFARCTION 2.0-3.0 VALVULAR HEART DISEASE 2.0-3.0 ATRIAL FIBRILLATION 2.0-3.0 MECHANICAL VALVES(HIGH RISK) 2.5-3.5 RECURRENT MYOCARDIAL INFARCTION 2.5-3.5 ID Date Data Source [id number] 04/23/2020 05:11:00 PM EST [facility] ([facility] Name Value Range Interpretation Code Description [facility](s) White Blood Count 12.4 10 4.0-10.0 Above high normal [facility] ([facility] Hemoglobin 12.6 g/dL 12.0-15.5 Normal (applies to non-numeric resul ts) [facility] ([facility] Red Blood Count 5.11 10 4.00-5.40 Normal (applies to non-numeric results) [facility] ([facility] Mean Corpuscular Volume 81.8 fl 80.0-96.0 Normal ( applies to non-numeric results) [facility] ([facility] ) Mean Corpuscular Hemoglobin 24.7 pg 27.0-33.0 Below low normal [facility] ([facility] Hematocrit 41.8 % 36.0-47.0 Normal (applies to non-numeric resul ts) [facility] ([facility] Mean Corpuscular HGB Conc 30.1 g/dL 32.0-36.5 Below low normal [facility] ([facility] Red Cell Distribution Width 15.1 % 11.5-14.5 Above high normal [facility] ([facility] Platelet Count, Automated 218 10 150-450 Normal (applies to non-numeric results) [facility] ([facility] ) Lymph % 10.7 % 24.0-44.0 Below low normal [facility] ( [facility] Neutrophils % 69.8 % 36.0-66.0 Above high normal [facility] ([facility] Sherman % 11.2 % 0.0-5.0 Above high normal [facility] ([facility] Baso % 0.8 % 0.0-1.0 Normal (applies to non-numeric resul ts) [facility] ([facility] Immature Granulocyte % 0.4 % 0-3.0 Normal (applies to non-n umeric results) [facility] ([facility] Eos % 7.1 % 0.0-3.0 Above high normal [facility] ([facility] Nucleated Red Blood Cell % 0.0 % 0-0 Normal (applies to n on-numeric results) [facility] ([facility] Lymph # 1.3 10 1.5-5.0 Below low normal [facility] ( [facility] Neutrophils # 8.7 10 1.5-8.5 Above high normal [facility] ([facility] Baso # 0.1 10 0.0-0.2 Normal (applies to non-numeric resul ts) [facility] ([facility] Sherman # 1.4 10 0.0-0.8 Above high normal [facility] ([facility] Eos # 0.9 10 0.0-0.5 Above high normal [facility] ([facility] ID Date Data Source [id number] 04/15/2020 03:18:00 PM EST [facility] ([facility] Name Value Range Interpretation Code Description Data Vicky rce(s) Supporting Document(s) Prothrombin Time-Therapy 61.0 [facility] ([facility] INR in Platelet poor plasma by Coagulation assay 5.1 [facility] ([facility] [facility] Comment 1 Laboratory test result ME MORE ([facility] Dosage Laboratory test result MEDENT ([facility] Denise Patterson) Recheck Laboratory test result MEDREI ([facility] Denise Patterson) ID Date Data Source [id number] 03/17/2020 02:56:00 PM EDT MEDENT ([facility] Denise Sanabria) Name Value Range Interpretation Code Description Data Vicky rce(s) Supporting Document(s) Glu 85 mg/dL 70-110 [facility] NORMAL RANGES Age WBC RBC HGB HCT [...] HCT IS 5% LESS SOURCE FOR DATA: [facility] 1800 OPERATION MANUAL( AUTOMATED BLOOD COUNTS AND [...] >32 mL/min Normal BUN 14 mg/dL 8- [facility] NORMAL RANGES Age WBC [...] mL/min Normal Creat 0.8 mg/dL 0.5-1.0 [facility]ENT ([facility] NORMAL RANGES Age WBC [...] HCT IS 5% LESS SOURCE FOR DATA: [facility] 1800 OPERATION MANUAL( AUTOMATED BLOOD COUNTS AND [...] above >32 mL/min Normal BUN/Creatinine Ratio 18.2 CALC [employer] ([facility] NORMAL RANGES Age WBC [...] HCT IS 5% LESS SOURCE FOR DATA: [facility] 1800 OPERATION MANUAL( AUTOMATED BLOOD COUNTS AND [...] Na 135 mmol/L 136-145 Below low normal [facility] ( [facility] NORMAL [...] HCT IS 5% LESS SOURCE FOR DATA: [facility] 1800 OPERATION MANUAL( AUTOMATED BLOOD COUNTS AND [...] HCT IS 5% LESS SOURCE FOR DATA: [facility] 1800 OPERATION MANUAL( AUTOMATED BLOOD COUNTS AND [...] >32 mL/min Normal CL 99.2 mmol/L 98.0-107.[address] [facility] NORMAL RANGES Age WBC RBC [...] HCT IS 5% LESS SOURCE FOR DATA: [facility] 1800 OPERATION MANUAL( AUTOMATED BLOOD COUNTS AND [...] >32 mL/min Normal Co2 23.2 mmol/L 22.0-29.0 [facility] ([facility] NORMAL RANGES Age [...] HCT IS 5% LESS SOURCE FOR DATA: [facility] 1800 OPERATION MANUAL( AUTOMATED BLOOD COUNTS AND [...] >32 mL/min Normal CA 10.0 mg/dL 8.6-10.2 [facility] ([facility] NORMAL [...] HCT IS 5% LESS SOURCE FOR DATA: [facility] 1800 OPERATION MANUAL( AUTOMATED BLOOD COUNTS AND [...] >32 mL/min Normal TP 6.9 g/dL 6.6-8.7 [facility] ([facility] NORMAL RANGES Age WBC [...] HCT IS 5% LESS SOURCE FOR DATA: [facility] 1800 OPERATION MANUAL( AUTOMATED BLOOD COUNTS AND [...] >32 mL/min Normal Alb 3.9 g/dL 3.4-4.8 [facility] ([facility] NORMAL RANGES Age WBC [...] above >32 mL/min Normal Globulin 3.0 CALC [employer] ([facility] NORMAL RANGES Age WBC [...] HCT IS 5% LESS SOURCE FOR DATA: [facility] 1800 OPERATION MANUAL( AUTOMATED BLOOD COUNTS AND [...] >32 mL/min Normal A/G Ratio 1.3 CALC [facility] ([facility] NORMAL RANGES Age WBC [...] HCT IS 5% LESS SOURCE FOR DATA: [facility] 1800 OPERATION MANUAL( AUTOMATED BLOOD COUNTS AND [...] HCT IS 5% LESS SOURCE FOR DATA: [facility] 1800 OPERATION MANUAL( AUTOMATED BLOOD COUNTS AND [...] mL/min Normal Alt (SGPT) 10 U/L 0-41 [facility] ([facility] NORMAL RANGES Age [...] HCT IS 5% LESS SOURCE FOR DATA: [facility] 1800 OPERATION MANUAL( AUTOMATED BLOOD COUNTS AND [...] mL/min Normal Ast (Sgot) 13 U/L 0-40 [facility] ([facility] NORMAL RANGES Age WBC RBC [...] HCT IS 5% LESS SOURCE FOR DATA: [facility] 1800 OPERATION MANUAL( AUTOMATED BLOOD COUNTS AND [...] HCT IS 5% LESS SOURCE FOR DATA: [facility] 1800 OPERATION MANUAL( AUTOMATED BLOOD COUNTS AND [...] >32 mL/min Normal Tbili 0.37 mg/dL 0.0-1.[address] [facility] NORMAL RANGES Age WBC RBC [...] HCT IS 5% LESS SOURCE FOR DATA: [facility] 1800 OPERATION MANUAL( AUTOMATED BLOOD COUNTS AND [...] >32 mL/min Normal Anion Gap 16 mmol/L [facility] ([facility] NORMAL RANGES Age WBC [...] HCT IS 5% LESS SOURCE FOR DATA: [facility] 1800 OPERATION MANUAL( AUTOMATED BLOOD COUNTS AND [...] above >32 mL/min Normal eGFR 85 # MEDREI ( [facility] CKD-EPI eGFR Non-Afr. Portuguese 73 # MEDREI ([facility] CKD-EPI ID Date Data Source [id number] 03/17/2020 02:56:00 PM EDT REIGNE ([facility] Name Value Range Interpretation Code Description Data Vicky rce(s) Supporting Document(s) WBC 11.5 10E3/uL 4.1-10.9 Above high normal KAYLEE T ([facility] NORMAL RANGES Age WBC [...] HCT IS 5% LESS SOURCE FOR DATA: [facility] 1800 OPERATION MANUAL( AUTOMATED BLOOD COUNTS AND [...] >32 mL/min Normal RBC 4.76 10E6/uL 4.20-6.30 [facility] NORMAL RANGES Age WBC RBC [...] HCT IS 5% LESS SOURCE FOR DATA: [facility] 1800 OPERATION MANUAL( AUTOMATED BLOOD COUNTS AND [...] >32 mL/min Normal HGB 13.1 g/dL 12.0-18.0 [facility] ([facility] NORMAL [...] HCT IS 5% LESS SOURCE FOR DATA: [facility] 1800 OPERATION MANUAL( AUTOMATED BLOOD COUNTS AND [...] >32 mL/min Normal HCT 41.3 % 37.0-51.[address] [facility] ([facility] NORMAL [...] HCT IS 5% LESS SOURCE FOR DATA: [facility] 1800 OPERATION MANUAL( AUTOMATED BLOOD COUNTS AND [...] >32 mL/min Normal MCH 27.5 pg 26.0-32.0 MEDENT ([facility] NORMAL [...] HCT IS 5% LESS SOURCE FOR DATA: [facility] 1800 OPERATION MANUAL( AUTOMATED BLOOD COUNTS AND [...] >32 mL/min Normal MCV 86.8 fL 80.0-97.0 REGINE ([facility] NORMAL [...] HCT IS 5% LESS SOURCE FOR DATA: [facility] 1800 OPERATION MANUAL( AUTOMATED BLOOD COUNTS AND [...] >32 mL/min Normal MCHC 31.7 g/dL 31.0-36.[address] [facility] ([facility] NORMAL [...] HCT IS 5% LESS SOURCE FOR DATA: [employer] 1800 OPERATION MANUAL( AUTOMATED BLOOD COUNTS [...] >32 mL/min Normal PLT 218 10E3/uL 140-440 [facility] ([facility] NORMAL RANGES Age WBC RBC HGB [...] HCT IS 5% LESS SOURCE FOR DATA: [facility] 1800 OPERATION MANUAL( AUTOMATED BLOOD COUNTS AND [...] >32 mL/min Normal Lym% 11.0 % 10.0-58.5 [facility] ([facility] NORMAL RANGES Age WBC [...] HCT IS 5% LESS SOURCE FOR DATA: [facility] 1800 OPERATION MANUAL( AUTOMATED BLOOD COUNTS AND [...] >32 mL/min Normal RDW-CV 14.0 % 11.5-14.5 [facility] ([facility] NORMAL RANGES Age WBC [...] HCT IS 5% LESS SOURCE FOR DATA: [employer] [facility] 1800 OPERATION MANUAL( AUTOMATED BLOOD COUNTS [...] >32 mL/min Normal Neut% 76.5 % 37.0-92.0 [facility] ([facility] NORMAL RANGES Age WBC [...] HCT IS 5% LESS SOURCE FOR DATA: [facility] 1800 OPERATION MANUAL( AUTOMATED BLOOD COUNTS AND [...] >32 mL/min Normal MXD% 12.5 % 0.1-24.0 [facility] ([facility] NORMAL [...] HCT IS 5% LESS SOURCE FOR DATA: [facility] 1800 OPERATION MANUAL( AUTOMATED BLOOD COUNTS AND [...] Neut# 8.8 % 2.0-7.8 Above high normal [facility] ([facility] NORMAL RANGES [...] HCT IS 5% LESS SOURCE FOR DATA: [facility] 1800 OPERATION MANUAL( AUTOMATED BLOOD COUNTS AND [...] >32 mL/min Normal Lym# 1.3 10E3/uL 0.6-4.1 REGINE ([facility] NORMAL RANGES Age [...] HCT IS 5% LESS SOURCE FOR DATA: [facility] 1800 OPERATION MANUAL( AUTOMATED BLOOD COUNTS AND [...] mL/min Normal MXD# 1.4 10E3/uL 0.0-1.8 REGINE ([facility] NORMAL RANGES Age [...] HCT IS 5% LESS SOURCE FOR DATA: [facility] 1800 OPERATION MANUAL( AUTOMATED BLOOD COUNTS AND [...] >32 mL/min Normal MPV 10.4 fL 9.0-13.[address] [facility] ([facility] NORMAL [...] HCT IS 5% LESS SOURCE FOR DATA: [facility] 1800 OPERATION MANUAL( AUTOMATED BLOOD COUNTS AND [...] >32 mL/min Normal ID Date Data Source [id number] 03/17/2020 02:56:00 PM EDT MEDENT ([facility] Name Value Range Interpretation Code Description Data Vicky rce(s) Supporting Document(s) Prothrombin Time-Therapy 25.4 MEDEN T ([facility] Recheck Laboratory test result MEDENT ([facility] INR in Platelet poor plasma by Coagulation assay 2.1 MEDENT ([facility] Dosage Laboratory test result MEDENT ([facility] ID Date Data Source [id number] 03/10/2020 10:11:00 AM EDT MEDENT ([facility] Name Value Range Interpretation Code Description Data Vicky rce(s) Supporting Document(s) INR in Platelet poor plasma by Coagulation assay 2.7 MEDENT ([facility] Prothrombin Time-Therapy 32.0 MEDEN T ([facility] Dosage Laboratory test result MEDENT ([facility] Recheck Laboratory test result MEDENT ([facility] ID Date Data Source [id number] 03/03/2020 09:51:00 AM EDT MEDENT ([facility] Name Value Range Interpretation Code Description Data Vicky rce(s) Supporting Document(s) Prothrombin Time-Therapy 42.3 MEDEN T ([facility] INR in Platelet poor plasma by Coagulation assay 3.5 MEDENT ([facility] Recheck Laboratory test result MEDENT ([facility] Dosage Laboratory test result MEDENT ([facility] Comment 1 Laboratory test result ME DENT ([facility] ID Date Data Source [id number] 02/29/2020 10:02:00 AM EDT MEDENT ([facility] Name Value Range Interpretation Code Description Data Vicky rce(s) Supporting Document(s) INR in Platelet poor plasma by Coagulation assay 1.1 MEDENT ([facility] Prothrombin Time-Therapy 13.1 MEDEN T ([facility] Dosage Laboratory test result REGINE ([facility] Comment 1 Laboratory test result ME ARGENIS ([facility] Recheck Laboratory test result REGINE ([facility] ID Date Data Source [id number] 02/18/2020 08:28:00 AM EDT REGINE ([facility] Name Value Range Interpretation Code Description Data Vicky rce(s) Supporting Document(s) CPK Creatine Phosphokinase 45 U/L 26-192 Angela l (applies to non-numeric results) REGINE ([facility] ) CK-MB Value Mass 1.6 ng/mL Normal (applies to non-numeric results) REGINE ([facility] MB/CK Relative Index 3.56 Normal (applies to non-num epifanio results) REGINE ([facility] <content>DIAGNOSIS CRITERIA</content>
<content>MMB ng/ml Relative Index (RI)</content>
<content>NON-AMI < or = 5 N/A</content>
<content>AQUINO ZONE > 5 < or = 4</content>
<content>AMI > 5 > 4</content>
<content></content> Troponin I 0.22 ng/mL [facility] ([facility] <content>Troponin I Reference Interval f or Siemens Geary LOCI:</content>
<content></content>
<content>99th Percentile= 0.00-0.045 ng/ml</content>
<content></content>
<content>Risk Stratification:</content>
<content><= 0.10 ng/ml Decreased Risk for Adverse Clinical</content>
<content>Events.</content>
<content>0.10-1.50 ng/ml Increased Risk for Adverse Clinical</content>
<content>Events. Evaluation of additional</content>
<content>criterion and/or repeat testing in 2-6</content>
<content>hours is suggested to rule out myocardial</content>
<content>damage.</content>
<content>>= 1.50 ng/ml Indicative of Myocardial Injury.</content>
<content></content> ID Date Data Source [id number] 02/18/2020 08:28:00 AM EDT MEDENT ([facility] Name Value Range Interpretation Code Description Data Vicky rce(s) Supporting Document(s) Inr 1.03 Normal (applies to non-numeric resul ts) [facility] ([facility] THERAPUTIC HUMAN INR VALUES INDICATIONS NORMAL RANGES PROPHYLAXIS/TREATMENT OF: VENOUS THROMBOSIS 2.0-3.0 PULMONARY EMBOLISM 2.0-3.0 PREVENTION OF SYSTEMIC EMBOLISM FROM: TISSUE HEART VALVES 2.0-3.0 ACUTE MYOCARDIAL INFARCTION 2.0-3.0 VALVULAR HEART DISEASE 2.0-3.0 ATRIAL FIBRILLATION 2.0-3.0 MECHANICAL VALVES(HIGH RISK) 2.5-3.5 RECURRENT MYOCARDIAL INFARCTION 2.5-3.5 Prothrombin Time 13.8 s 12.5-14.3 Normal (applies to non-numeric results) [facility] ([facility] Partial Thromboplastin Time 24.1 s 24.2-38.5 Below low normal [facility] ([facility] ID Date Data Source [id number] 02/18/2020 05:17:00 AM EDT [facility] ([facility] Name Value Range Interpretation Code Description Data Vicky rce(s) Supporting Document(s) Laboratory test finding (navigational concept) 167 mg/dL 7 0-105 Above high normal MEDENT ([facility] ) Laboratory test finding (navigational concept) 41.0 % 3 8.0-51.0 Normal (applies to non-numeric results) MEDENT ([facility] Laboratory test finding (navigational concept) 140 meq/L 1 36-145 Normal (applies to non-numeric results) MEDENT ([facility] Laboratory test finding (navigational concept) 101 meq/L 9 8-109 Normal (applies to non-numeric results) MEDENT ([facility] Laboratory test finding (navigational concept) 2.8 meq/L 3 .5-5.1 Below lower panic limits MEDENT ([facility] ) Laboratory test finding (navigational concept) 4.7 mg/dL 4 .5-5.3 Normal (applies to non-numeric results) MEDENT ([facility] Laboratory test finding (navigational concept) 1.0 mg/dL 0 .6-1.3 Normal (applies to non-numeric results) MEDENT ([facility] Laboratory test finding (navigational concept) 28.0 MM/L 2 3.0-27.0 Above high normal MEDENT ([facility] ) Laboratory test finding (navigational concept) 17 mg/dL 8 -26 Normal (applies to non-numeric results) MEDENT ([facility]) ID Date Data Source [id number] 02/18/2020 05:13:00 AM EDT MEDENT ([facility] Name Value Range Interpretation Code Description Data Vicky rce(s) Supporting Document(s) Lipoprotein lipase [Enzymatic activity/volume] in Serum or P lasma 139 U/L 73-393 Normal (applies to non-numeric results) MEDENT ([facility] <content>note:<nlbl:demographic_changed> </content>
<content></content> ID Date Data Source [id number] 02/18/2020 05:13:00 AM EDT MEDENT ([facility] Name Value Range Interpretation Code Description Data Vicky rce(s) Supporting Document(s) Ast/Sgot 14 U/L 7-37 Normal (applies to non-numeric resul ts) MEDENT ([facility] Bilirubin,Total 0.4 mg/dL 0.2-1.0 Normal (applies to non-numeric results) MEDENT ([facility] Alt/SGPT 14 U/L 12-78 Normal (applies to non-numeric resul ts) MEDENT ([facility] Alkaline Phosphatase 150 U/L 45-117 Above high normal [facility] ([facility] Albumin 3.1 GM/DL 3.2-5.2 Below low normal [facility] ( [facility] Bilirubin,Direct 0.1 mg/dL 0.0-0.2 Normal (applies to non-numeric results) [facility] ([facility] Total Protein 7.1 GM/DL 6.4-8.2 Normal (applies to non-numeric re sults) [facility] ([facility] Albumin/Globulin Ratio 0.8 1.2-2.2 Below low normal [facility] ([facility] ID Date Data Source [id number] 02/18/2020 05:13:00 AM EDT [facility] ([facility] Name Value Range Interpretation Code Description Data Vicky rce(s) Supporting Document(s) CK-MB Value Mass Laboratory test result Normal ( applies to non-numeric results) [facility] ([facility] ) CPK Creatine Phosphokinase 41 U/L 26-192 Angela l (applies to non-numeric results) [facility] ([facility] ) MB/CK Relative Index 2.44 Normal (applies to non-num epifanio results) [facility] ([facility] <content>DIAGNOSIS CRITERIA</content>
<content>MMB ng/ml Relative Index (RI)</content>
<content>NON-AMI < or = 5 N/A</content>
<content>AQUINO ZONE > 5 < or = 4</content>
<content>AMI > 5 > 4</content>
<content></content> Troponin I 0.08 ng/mL Normal (applies to non-numeric resul ts) [facility] ([facility] <content>Troponin I Reference Interval f or Siemens Geary LOCI:</content>
<content></content>
<content>99th Percentile= 0.00-0.045 ng/ml</content>
<content></content>
<content>Risk Stratification:</content>
<content><= 0.10 ng/ml Decreased Risk for Adverse Clinical</content>
<content>Events.</content>
<content>0.10-1.50 ng/ml Increased Risk for Adverse Clinical</content>
<content>Events. Evaluation of additional</content>
<content>criterion and/or repeat testing in 2-6</content>
<content>hours is suggested to rule out myocardial</content>
<content>damage.</content>
<content>>= 1.50 ng/ml Indicative of Myocardial Injury.</content>
<content></content> ID Date Data Source [id number] 02/18/2020 05:13:00 AM EDT [facility] ([facility] Name Value Range Interpretation Code Description Data Vicky rce(s) Supporting Document(s) Lactate [Mass/volume] in Serum or Plasma 2.4 mmol/L 0.4-2.0 Above upper panic limits [facility]ENT ([facility] ) <content>note:<nlbl:demographic_changed> </content>
<content>Y/N query for Sepsis Lactate Rule: Y</content>
<content></content> ID Date Data Source [id number] 02/18/2020 05:13:00 AM EDT MEDENT ([facility] [...] ([facility] Mean Corpuscular HGB Conc 31.3 g/dL 32.0-36.5 Below low normal MEDENT ([facility] Platelet Count, Automated 204 10 150-450 Normal (applies to non-numeric results) MEDENT ([facility] ) Red Cell Distribution Width 13.0 % 11.5-14.5 Norm al (applies to non-numeric results) [facility] ([facility] Lymph % 5.4 % 24.0-44.0 Below low normal MEDENT ( [facility] Neutrophils % 82.7 % 36.0-66.0 Above high normal MEDE NT ([facility] Sherman % 8.6 % 0.0-5.0 Above high normal MEDENT ([facility] Eos % 2.1 % 0.0-3.0 Normal (applies to non-numeric resul ts) [facility] ([facility] Immature Granulocyte % 0.6 % 0-3.0 Normal (applies to non-n umeric results) MEDENT ([facility] Baso % 0.6 % 0.0-1.0 Normal (applies to non-numeric resul ts) MEDENT ([facility] Neutrophils # 12.6 10 1.5-8.5 Above high normal MEDE NT ([facility] Lymph # 0.8 10 1.5-5.0 Below low normal [facility] ( [facility] Nucleated Red Blood Cell % 0.0 % 0-0 Normal (applies to n on-numeric results) [facility] ([facility] Baso # 0.1 10 0.0-0.2 Normal (applies to non-numeric resul ts) [facility] ([facility] Sherman # 1.3 10 0.0-0.8 Above high normal [facility] ([facility] Eos # 0.3 10 0.0-0.5 Normal (applies to non-numeric resul ts) [facility] ([facility] ID Date Data Source [id number] 02/12/2020 01:26:00 PM EDT MEDENT ([facility]) Name Value Range Interpretation Code Description Data Vicky rce(s) Supporting Document(s) Thyrotropin [Units/volume] in Serum or Plasma by Detec tion limit <= 0.05 mIU/L Laboratory test result 0.358-3.740 MEDENT ([facility]) <content>note:<nlbl:demographic_changed> </content>
<content></content> Thyroxine (T4) free [Mass/volume] in Serum or Plasma 1.96 ng/dL 0.76- 1.46 MEDENT ([facility]) <content>note:<nlbl:demographic_changed> </content>
<content></content> ID Date Data Source [id number] 01/30/2020 01:46:00 PM EDT [facility] ([facility] ID Date Data Source [id number] 01/30/2020 01:46:00 PM EDT [facility] ([facility] Name Value Range Interpretation Code Description Data Vicky rce(s) Supporting Document(s) RBC 4.36 10E6/uL 4.20-6.30 [facility] ([facility] NORMAL RANGES Age [...] HCT IS 5% LESS SOURCE FOR DATA: [facility] 1800 OPERATION MANUAL( AUTOMATED BLOOD COUNTS AND [...] >32 mL/min Normal WBC 9.2 10E3/uL 4.1-10.9 REGINE ([facility] NORMAL RANGES Age WBC RBC HGB HCT [...] HCT IS 5% LESS SOURCE FOR DATA: [facility] 1800 OPERATION MANUAL( AUTOMATED BLOOD COUNTS AND [...] >32 mL/min Normal HGB 12.8 g/dL 12.0-18.0 [facility] NORMAL RANGES Age WBC [...] HCT IS 5% LESS SOURCE FOR DATA: [facility] 1800 OPERATION MANUAL( AUTOMATED BLOOD COUNTS AND [...] >32 mL/min Normal HCT 39.4 % 37.0-51.0 [facility] ([facility] NORMAL RANGES Age WBC [...] >32 mL/min Normal MCV 90.4 fL 80.0-97.0 [facility] ([facility] NORMAL RANGES Age [...] HCT IS 5% LESS SOURCE FOR DATA: [facility] 1800 OPERATION MANUAL( AUTOMATED BLOOD COUNTS AND [...] >32 mL/min Normal MCH 29.4 pg 26.0-32.0 [facility] ([facility] NORMAL [...] HCT IS 5% LESS SOURCE FOR DATA: [facility] 1800 OPERATION MANUAL( AUTOMATED BLOOD COUNTS AND [...] >32 mL/min Normal MCHC 32.5 g/dL 31.0-36.0 [facility] ([facility] NORMAL [...] HCT IS 5% LESS SOURCE FOR DATA: [facility] 1800 OPERATION MANUAL( AUTOMATED BLOOD COUNTS AND [...] >32 mL/min Normal PLT 251 10E3/uL 140-440 [facility] NORMAL RANGES Age WBC RBC HGB [...] HCT IS 5% LESS SOURCE FOR DATA: [facility] 1800 OPERATION MANUAL( AUTOMATED BLOOD COUNTS AND [...] >32 mL/min Normal RDW-CV 13.6 % 11.5-14.5 [facility] ([facility] NORMAL [...] HCT IS 5% LESS SOURCE FOR DATA: [facility] 1800 OPERATION MANUAL( AUTOMATED BLOOD COUNTS AND [...] >32 mL/min Normal Lym% 16.4 % 10.0-58.5 [facility] ([facility] NORMAL [...] HCT IS 5% LESS SOURCE FOR DATA: [facility] 1800 OPERATION MANUAL( AUTOMATED BLOOD COUNTS AND [...] >32 mL/min Normal Neut% 69.5 % 37.0-92.0 [facility] ([facility] NORMAL [...] HCT IS 5% LESS SOURCE FOR DATA: [facility] 1800 OPERATION MANUAL( AUTOMATED BLOOD COUNTS AND [...] >32 mL/min Normal MXD% 14.1 % 0.1-24.0 [facility] ([facility] NORMAL RANGES Age [...] HCT IS 5% LESS SOURCE FOR DATA: [facility] 1800 OPERATION MANUAL( AUTOMATED BLOOD COUNTS AND [...] >32 mL/min Normal Lym# 1.5 10E3/uL 0.6-4.1 [facility] ([facility] NORMAL RANGES Age WBC RBC HGB [...] HCT IS 5% LESS SOURCE FOR DATA: [facility] 1800 OPERATION MANUAL( AUTOMATED BLOOD COUNTS AND [...] >32 mL/min Normal Neut# 6.4 % 2.0-7.8 [facility] ([facility] NORMAL RANGES Age WBC [...] >32 mL/min Normal MXD# 1.3 10E3/uL 0.0-1.8 [facility] NORMAL RANGES Age [...] HCT IS 5% LESS SOURCE FOR DATA: [facility] 1800 OPERATION MANUAL( AUTOMATED BLOOD COUNTS AND [...] >32 mL/min Normal MPV 10.0 fL 9.0-13.0 [facility] ([facility] NORMAL [...] HCT IS 5% LESS SOURCE FOR DATA: [facility] 1800 OPERATION MANUAL( AUTOMATED BLOOD COUNTS AND [...] >32 mL/min Normal ID Date Data Source [id number] 01/30/2020 01:46:00 PM JORDAN WEINER ([facility] Name Value Range Interpretation Code Description Data Vicky rce(s) Supporting Document(s) Glu 101 mg/dL 70-110 [facility] ([facility] NORMAL RANGES Age WBC [...] HCT IS 5% LESS SOURCE FOR DATA: [facility] 1800 OPERATION MANUAL( AUTOMATED BLOOD COUNTS AND [...] >32 mL/min Normal BUN 11 mg/dL 8-23 [facility] ([facility] NORMAL [...] HCT IS 5% LESS SOURCE FOR DATA: [facility] 1800 OPERATION MANUAL( AUTOMATED BLOOD COUNTS AND [...] >32 mL/min Normal BUN/Creatinine Ratio 14.0 CALC [facility] ([facility] NORMAL RANGES Age WBC [...] HCT IS 5% LESS SOURCE FOR DATA: [facility] 1800 OPERATION MANUAL( AUTOMATED BLOOD COUNTS AND [...] >32 mL/min Normal Creat 0.8 mg/dL 0.5-1.0 [facility] ([facility] NORMAL RANGES Age WBC [...] HCT IS 5% LESS SOURCE FOR DATA: [facility] 1800 OPERATION MANUAL( AUTOMATED BLOOD COUNTS AND [...] >32 mL/min Normal Na 140 mmol/L 136-145 [facility] ([facility] NORMAL RANGES Age WBC RBC HGB [...] HCT IS 5% LESS SOURCE FOR DATA: [facility] 1800 OPERATION MANUAL( AUTOMATED BLOOD COUNTS AND [...] >32 mL/min Normal K 3.6 mmol/L 3.5-5.1 [facility] ([facility] NORMAL RANGES Age [...] HCT IS 5% LESS SOURCE FOR DATA: [facility] 1800 OPERATION MANUAL( AUTOMATED BLOOD COUNTS AND [...] >32 mL/min Normal CL 101.0 mmol/L 98.0-107.0 [facility] ([facility] NORMAL RANGES Age WBC RBC HGB [...] HCT IS 5% LESS SOURCE FOR DATA: [facility] 1800 OPERATION MANUAL( AUTOMATED BLOOD COUNTS AND [...] >32 mL/min Normal Co2 28.7 mmol/L 22.0-29.0 [employer] ([facility] NORMAL RANGES Age [...] HCT IS 5% LESS SOURCE FOR DATA: [facility] 1800 OPERATION MANUAL( AUTOMATED BLOOD COUNTS AND [...] >32 mL/min Normal CA 10.2 mg/dL 8.6-10.2 [facility] ([facility] NORMAL RANGES Age [...] HCT IS 5% LESS SOURCE FOR DATA: [facility] 1800 OPERATION MANUAL( AUTOMATED BLOOD COUNTS AND [...] >32 mL/min Normal Alb 3.9 g/dL 3.4-4.8 [facility] ([facility] NORMAL RANGES Age WBC [...] HCT IS 5% LESS SOURCE FOR DATA: [facility] 1800 OPERATION MANUAL( AUTOMATED BLOOD COUNTS AND [...] >32 mL/min Normal TP 6.7 g/dL 6.6-8.7 [facility] ([facility] NORMAL [...] HCT IS 5% LESS SOURCE FOR DATA: [facility] 1800 OPERATION MANUAL( AUTOMATED BLOOD COUNTS AND [...] HCT IS 5% LESS SOURCE FOR DATA: [facility] 1800 OPERATION MANUAL( AUTOMATED BLOOD COUNTS AND [...] HCT IS 5% LESS SOURCE FOR DATA: [facility] 1800 OPERATION MANUAL( AUTOMATED BLOOD COUNTS AND [...] Alp 179.6 U/L 35-129 Above high normal [facility] ([facility] NORMAL RANGES Age WBC [...] HCT IS 5% LESS SOURCE FOR DATA: [facility] 1800 OPERATION MANUAL( AUTOMATED BLOOD COUNTS AND [...] mL/min Normal Alt (SGPT) 13 U/L 0-41 [facility] ([facility] NORMAL RANGES Age WBC RBC HGB [...] HCT IS 5% LESS SOURCE FOR DATA: [facility] 1800 OPERATION MANUAL( AUTOMATED BLOOD COUNTS AND [...] mL/min Normal Ast (Sgot) 16 U/L 0-40 [facility] NORMAL RANGES Age [...] >32 mL/min Normal Tbili 0.58 mg/dL 0.0-1.2 [employer] ([facility] NORMAL RANGES Age [...] HCT IS 5% LESS SOURCE FOR DATA: [facility] [facility] 1800 OPERATION MANUAL( AUTOMATED BLOOD COUNTS [...] HCT IS 5% LESS SOURCE FOR DATA: [facility] 1800 OPERATION MANUAL( AUTOMATED BLOOD COUNTS AND [...] >32 mL/min Normal Anion Gap 13 mmol/L [facility] ([facility] NORMAL RANGES Age WBC [...] HCT IS 5% LESS SOURCE FOR DATA: [facility] 1800 OPERATION MANUAL( AUTOMATED BLOOD COUNTS AND [...] above >32 mL/min Normal eGFR 85 # [facility] ( [facility] CKD-EPI eGFR Non-Afr. Portuguese 73 # [facility] ([facility] CKD-EPI ID Date Data Source [id number] 12/18/2019 01:18:00 PM EDT [facility] ([facility]) Name Value Range Interpretation Code Description Data Vicky rce(s) Supporting Document(s) Free T4 0.74 ng/dL 0.76-1.46 [facility] ([facility]) Thyroid Stimulating Hormone 6.970 uIU/ML 0.358-3.740 [facility] ([facility]) ID Date Data Source [id number] 11/16/2019 12:11:00 PM EDT [facility] ([facility]) Name Value Range Interpretation Code Description Data Vicky rce(s) Supporting Document(s) Thyroid Stimulating Hormone 0.055 uIU/ML 0.358-3.740 [facility] ([facility]) Free T4 1.01 ng/dL 0.76-1.46 [facility] ([facility]) ID Date Data Source [id number] 2019 01:39:00 PM EDT [facility] Name Value Range Interpretation Code Description Data Vicky rce(s) Supporting Document(s) Bacteria identified in Urine by Culture Laboratory test result [facility] ([facility] SRC:URINE Urine Culture, Routine Laboratory test result [facility] ([facility] SRC:URINE ID Date Data Source [id number] 2019 01:38:00 PM EDT [facility] ([facility] Name Value Range Interpretation Code Description Data Vicky rce(s) Supporting Document(s) Color Urine Laboratory test result M [facility] ([facility] Appearance of Urine Laboratory test result [facility] ([facility] Specific [place] 1.015 1.00-1.03 [facility] ([facility] Bilirubin.total [Presence] in Urine by Test strip Laboratory test res ult [facility] ([facility] Glucose Urine Laboratory test result [facility] ([facility] PH Urine 5.5 5.0-8.0 [facility] ([facility] Ketones Laboratory test result [facility] ([facility] Blood Urine Laboratory test result M [facility] ([facility] Protein Urine Laboratory test result [facility] ([facility] Urobilinogen 0.2 EU/dl 0.2-1.0 [facility] ([facility] Nitrite Laboratory test result [facility] ([facility] Leukocytes Laboratory test result Above high normal [facility] ([facility] ID Date Data Source [id number] 2019 01:20:00 PM EDT [facility] ([facility] Name Value Range Interpretation Code Description Data Vicky rce(s) Supporting Document(s) WBC 7.3 10E3/uL 4.1-10.9 [facility] ([facility] NORMAL RANGES Age WBC RBC [...] HCT IS 5% LESS SOURCE FOR DATA: [facility] 1800 OPERATION MANUAL( AUTOMATED BLOOD COUNTS AND [...] >32 mL/min Normal RBC 4.39 10E6/uL 4.20-6.30 [facility] NORMAL RANGES Age [...] HCT IS 5% LESS SOURCE FOR DATA: [facility] 1800 OPERATION MANUAL( AUTOMATED BLOOD COUNTS AND [...] >32 mL/min Normal HGB 12.8 g/dL 12.0-18.0 [facility] ([facility] NORMAL RANGES Age WBC [...] HCT IS 5% LESS SOURCE FOR DATA: [facility] [facility] 1800 OPERATION MANUAL( AUTOMATED BLOOD COUNTS [...] >32 mL/min Normal HCT 40.0 % 37.0-51.[address] [facility] NORMAL RANGES Age WBC [...] HCT IS 5% LESS SOURCE FOR DATA: [facility] 1800 OPERATION MANUAL( AUTOMATED BLOOD COUNTS [...] >32 mL/min Normal MCV 91.1 fL 80.0-97.0 [facility] ([facility] NORMAL [...] HCT IS 5% LESS SOURCE FOR DATA: [facility] 1800 OPERATION MANUAL( AUTOMATED BLOOD COUNTS AND [...] >32 mL/min Normal MCHC 32.0 g/dL 31.0-36.0 [facility] ([facility] NORMAL [...] HCT IS 5% LESS SOURCE FOR DATA: [facility] 1800 OPERATION MANUAL( AUTOMATED BLOOD COUNTS AND [...] >32 mL/min Normal MCH 29.2 pg 26.0-32.0 [facility] ([facility] NORMAL [...] HCT IS 5% LESS SOURCE FOR DATA: [facility] 1800 OPERATION MANUAL( AUTOMATED BLOOD COUNTS AND [...] >32 mL/min Normal PLT 265 10E3/uL 140-440 [facility] ([facility] NORMAL RANGES Age [...] HCT IS 5% LESS SOURCE FOR DATA: [facility] 1800 OPERATION MANUAL( AUTOMATED BLOOD COUNTS AND [...] >32 mL/min Normal RDW-CV 14.5 % 11.5-14.5 [facility] ([facility] NORMAL [...] HCT IS 5% LESS SOURCE FOR DATA: [facility] 1800 OPERATION MANUAL( AUTOMATED BLOOD COUNTS AND [...] >32 mL/min Normal Lym% 16.0 % 10.0-58.5 [facility] ([facility] NORMAL RANGES Age WBC [...] HCT IS 5% LESS SOURCE FOR DATA: [facility] 1800 OPERATION MANUAL( AUTOMATED BLOOD COUNTS AND [...] >32 mL/min Normal MXD% 11.2 % 0.1-24.0 [facility] ([facility] NORMAL RANGES Age WBC [...] HCT IS 5% LESS SOURCE FOR DATA: [facility] 1800 OPERATION MANUAL( AUTOMATED BLOOD COUNTS AND [...] >32 mL/min Normal Neut% 72.8 % 37.0-92.0 [facility] ([facility] NORMAL RANGES Age WBC [...] HCT IS 5% LESS SOURCE FOR DATA: [facility] 1800 OPERATION MANUAL( AUTOMATED BLOOD COUNTS AND [...] >32 mL/min Normal Neut# 5.3 % 2.0-7.8 [facility] ([facility] NORMAL RANGES Age WBC [...] >32 mL/min Normal MXD# 0.8 10E3/uL 0.0-1.8 [facility] ([facility] NORMAL RANGES Age [...] HCT IS 5% LESS SOURCE FOR DATA: [facility] 1800 OPERATION MANUAL( AUTOMATED BLOOD COUNTS AND [...] >32 mL/min Normal Lym# 1.2 10E3/uL 0.6-4.1 [facility] ([facility] NORMAL RANGES Age [...] HCT IS 5% LESS SOURCE FOR DATA: [facility] 1800 OPERATION MANUAL( AUTOMATED BLOOD COUNTS AND [...] >32 mL/min Normal MPV 10.7 fL 9.0-13.0 [facility] ([facility] NORMAL RANGES Age WBC [...] HCT IS 5% LESS SOURCE FOR DATA: [facility] 1800 OPERATION MANUAL( AUTOMATED BLOOD COUNTS AND [...] >32 mL/min Normal ID Date Data Source [id number] 2019 01:20:00 PM EDT [facility] ([facility] Name Value Range Interpretation Code Description Data Vicky rce(s) Supporting Document(s) Glu 108 mg/dL 70-110 [facility] ([facility] NORMAL RANGES Age [...] HCT IS 5% LESS SOURCE FOR DATA: [facility] 1800 OPERATION MANUAL( AUTOMATED BLOOD COUNTS AND [...] HCT IS 5% LESS SOURCE FOR DATA: [facility] 1800 OPERATION MANUAL( AUTOMATED BLOOD COUNTS AND [...] >32 mL/min Normal BUN 22 mg/dL 8- [facility] ([facility] NORMAL RANGES Age WBC [...] HCT IS 5% LESS SOURCE FOR DATA: [facility] 1800 OPERATION MANUAL( AUTOMATED BLOOD COUNTS AND [...] >32 mL/min Normal Na 142 mmol/L 136-145 [facility] ([facility] NORMAL RANGES Age WBC RBC HGB [...] HCT IS 5% LESS SOURCE FOR DATA: [facility] 1800 OPERATION MANUAL( AUTOMATED BLOOD COUNTS AND [...] above >32 mL/min Normal BUN/Creatinine Ratio 26.3 [facility] ([facility] NORMAL RANGES Age [...] Co2 29.3 mmol/L 22.0-29.0 Above high normal [facility] NORMAL RANGES Age WBC [...] HCT IS 5% LESS SOURCE FOR DATA: [facility] 1800 OPERATION MANUAL( AUTOMATED BLOOD COUNTS AND [...] >32 mL/min Normal CL 103.3 mmol/L 98.0-107.0 [facility] ([facility] NORMAL RANGES Age WBC RBC [...] HCT IS 5% LESS SOURCE FOR DATA: [facility] 1800 OPERATION MANUAL( AUTOMATED BLOOD COUNTS AND [...] >32 mL/min Normal K 3.9 mmol/L 3.5-5.1 [facility] ([facility] NORMAL RANGES Age [...] HCT IS 5% LESS SOURCE FOR DATA: [facility] 1800 OPERATION MANUAL( AUTOMATED BLOOD COUNTS AND [...] >32 mL/min Normal CA 10.0 mg/dL 8.6-10.2 [facility] ([facility] NORMAL RANGES Age [...] HCT IS 5% LESS SOURCE FOR DATA: [facility] 1800 OPERATION MANUAL( AUTOMATED BLOOD COUNTS AND [...] HCT IS 5% LESS SOURCE FOR DATA: [facility] 1800 OPERATION MANUAL( AUTOMATED BLOOD COUNTS AND [...] HCT IS 5% LESS SOURCE FOR DATA: [facility] 1800 OPERATION MANUAL( AUTOMATED BLOOD COUNTS AND [...] >32 mL/min Normal Alb 4.1 g/dL 3.4-4.8 [facility] ([facility] NORMAL RANGES Age WBC [...] HCT IS 5% LESS SOURCE FOR DATA: [facility] 1800 OPERATION MANUAL( AUTOMATED BLOOD COUNTS AND [...] above >32 mL/min Normal Globulin 2.9 CALC [facility] ([facility] NORMAL RANGES Age WBC [...] HCT IS 5% LESS SOURCE FOR DATA: [facility] 1800 OPERATION MANUAL( AUTOMATED BLOOD COUNTS AND [...] mL/min Normal Alt (SGPT) 11 U/L 0-41 [facility] ([facility] NORMAL RANGES Age WBC RBC HGB [...] HCT IS 5% LESS SOURCE FOR DATA: [facility] 1800 OPERATION MANUAL( AUTOMATED BLOOD COUNTS AND [...] 177.1 U/L 35-129 Above high normal [facility] ([facility] [...] HCT IS 5% LESS SOURCE FOR DATA: [facility] 1800 OPERATION MANUAL( AUTOMATED BLOOD COUNTS AND [...] >32 mL/min Normal Tbili 0.31 mg/dL 0.0-1.2 [employer] ([facility] NORMAL RANGES Age [...] HCT IS 5% LESS SOURCE FOR DATA: [facility] 1800 OPERATION MANUAL( AUTOMATED BLOOD COUNTS AND [...] mL/min Normal Ast (Sgot) 13 U/L 0-40 [facility] NORMAL RANGES Age WBC RBC [...] HCT IS 5% LESS SOURCE FOR DATA: [facility] 1800 OPERATION MANUAL( AUTOMATED BLOOD COUNTS AND [...] HCT IS 5% LESS SOURCE FOR DATA: [facility] 1800 OPERATION MANUAL( AUTOMATED BLOOD COUNTS AND [...] HCT IS 5% LESS SOURCE FOR DATA: [facility] 1800 OPERATION MANUAL( AUTOMATED BLOOD COUNTS AND [...] >32 mL/min Normal Anion Gap 14 mmol/L [facility] ([facility] NORMAL [...] HCT IS 5% LESS SOURCE FOR DATA: [facility] 1800 OPERATION MANUAL( AUTOMATED BLOOD COUNTS AND [...] and above >32 mL/min Normal eGFR Non-Afr. Portuguese 73 # [facility] ([facility] [...] HCT IS 5% LESS SOURCE FOR DATA: [facility] 1800 OPERATION MANUAL( AUTOMATED BLOOD COUNTS AND [...] >32 mL/min Normal ID Date Data Source [id number] 10/19/2019 10:49:00 AM JORDAN WEINER ([facility]) Name Value Range Interpretation Code Description Data Vicky rce(s) Supporting Document(s) Free T4 1.31 ng/dL 0.76-1.46 [facility] ([facility]) Thyroid Stimulating Hormone 0.013 uIU/ML 0.358-3.740 [facility] ([facility]) ID Date Data Source [id number] 08/16/2019 06:10:00 AM EDT [facility] ([facility] Name Value Range Interpretation Code Description Data Vicky rce(s) Supporting Document(s) Thyroid Stimulating Hormone 0.006 uIU/ML 0.358-3.740 Below low normal [facility] ([facility] Free T4 1.48 ng/dL 0.76-1.46 Above high normal [facility] ([facility] ID Date Data Source [id number] 08/16/2019 06:10:00 AM EDT [facility] ([facility]) Name Value Range Interpretation Code Description Data Vicky rce(s) Supporting Document(s) Thyroid Stimulating Hormone 0.006 uIU/ML 0.358-3.740 [facility] ([facility]) Free T4 1.48 ng/dL 0.76-1.46 [facility] ([facility] ID Date Data Source [id number] 07/15/2019 01:29:00 PM EST [facility] ([facility]) Name Value Range Interpretation Code Description Data Vicky rce(s) Supporting Document(s) Thyroid Stimulating Hormone 0.041 uIU/ML 0.358-3.740 [facility] ([facility]) Free T4 0.98 ng/dL 0.76-1.46 [facility] ([facility] ID Date Data Source [id number] 07/15/2019 01:29:00 PM EST [facility] ([facility] Name Value Range Interpretation Code Description Data Vicky rce(s) Supporting Document(s) Thyroid Stimulating Hormone 0.041 uIU/ML 0.358-3.740 Below low normal [facility] ([facility] Free T4 0.98 ng/dL 0.76-1.46 Normal (applies to non-numeric resul ts) [facility] ([facility] ID Date Data Source [id number] 07/02/2019 05:42:00 AM EST [facility] ([facility] Name Value Range Interpretation Code Description Data Vicky rce(s) Supporting Document(s) Lipoprotein lipase [Enzymatic activity/volume] in Serum or P lasma 184 U/L 73-393 Normal (applies to non-numeric results) [facility] ([facility] ID Date Data Source [id number] 07/02/2019 05:42:00 AM EST [facility] ([facility] Name Value Range Interpretation Code Description Data Vicky rce(s) Supporting Document(s) Glucose, Fasting 163 mg/dL 70-100 Above high normal [facility] ([facility] Creatinine For GFR 0.98 mg/dL 0.55-1.30 Normal (applies to non -numeric results) [facility] ([facility] Blood Urea Nitrogen 20 mg/dL 7-18 Above high normal [facility] ([facility] Glomerular Filtration Rate 59.4 Normal (applies to n on-numeric results) [facility] ([facility] <content>Units are mL/min/1.73 m2</content>
<content></content>
<content>Chronic Kidney Disease Staging per NKF:</content>
<content></content>
<content>Stage I & II GFR >=60 Normal to Mildly Decreased</content>
<content>Stage III GFR 30-59 Moderately Decreased</content>
<content>Stage IV GFR 15-29 Severely Decreased</content>
<content>Stage V GFR <15 Very Little GFR Left</content>
<content>ESRD GFR <15 on CABLE LAYER</content>
<content></content> Sodium Level 142 meq/L 136-145 Normal (applies to non-numeric res ults) [facility] ([facility] Potassium Serum 3.5 meq/L 3.5-5.1 Normal (applies to non-numeric results) [facility] ([facility] Carbon Dioxide Level 33 meq/L 21-32 Above high normal [facility] ([facility] Anion Gap 8 meq/L 8-16 Normal (applies to non-numeric resul ts) [facility] ([facility] Chloride Level 101 meq/L 98-107 Normal (applies to non-numeric r esults) [facility] ([facility] Calcium Level 10.2 mg/dL 8.8-10.2 Normal (applies to non-numeric re sults) [facility] ([facility] ID Date Data Source [id number] 07/02/2019 05:42:00 AM EST [facility] ([facility] Name Value Range Interpretation Code Description Data Vicky rce(s) Supporting Document(s) Ast/Sgot 16 U/L 7-37 Normal (applies to non-numeric resul ts) [facility] ([facility] Alt/SGPT 20 U/L 12-78 Normal (applies to non-numeric resul ts) [facility] ([facility] Alkaline Phosphatase 209 U/L 45-117 Above high normal [facility] ([facility] Bilirubin,Total 0.5 mg/dL 0.2-1.0 Normal (applies to non-numeric results) [facility] ([facility] Bilirubin,Direct 0.1 mg/dL 0.0-0.2 Normal (applies to non-numeric results) [facility] ([facility] Total Protein 7.4 GM/DL 6.4-8.2 Normal (applies to non-numeric re sults) [facility] ([facility] Albumin/Globulin Ratio 0.80 1.00-1.93 Below low normal [facility] ([facility] Albumin 3.3 GM/DL 3.2-5.2 Normal (applies to non-numeric resul ts) [facility] ([facility] ID Date Data Source [id number] 07/02/2019 05:42:00 AM EST [facility] ([facility] [...] 31.6 g/dL 32.0-36.5 Below low normal [facility] ([facility] Mean Corpuscular Hemoglobin 28.4 pg 27.0-33.0 Norm al (applies to non-numeric results) [facility] ([facility] Platelet Count, Automated 309 10 150-450 Normal (applies to non-numeric results) [facility] ([facility] Neutrophils % 82.8 % 36.0-66.0 Above high normal [facility] ([facility] [place] % 7.5 % 0.0-5.0 Above high normal [...] Normal (applies to non-numeric resul ts) [facility] ([facility] Lymph # 0.8 10 1.5-5.0 Below low normal [facility] ( [facility] [place] # 0.8 10 0.0-0.8 Normal (applies to non-numeric resul ts) [facility] ([facility] Neutrophils # 9.0 10 1.5-8.5 Above high normal [facility] ([facility] Eos # 0.1 10 0.0-0.5 Normal (applies to non-numeric resul ts) [facility] ([facility] Baso # 0.1 10 0.0-0.2 Normal (applies to non-numeric resul ts) [facility] ([facility] ID Date Data Source [id number] 06/26/2019 01:32:00 PM EST [facility] ([facility] Name Value Range Interpretation Code Description Data Vicky rce(s) Supporting Document(s) Prostate specific Ag [Mass/volume] in Serum or Plasma 98 mg/dL 45-65 Above high normal [facility] ([facility] ) CLASSIFICATION CHOLESTEROL FO [...] HCT IS 5% LESS SOURCE FOR DATA: [employer] [facility] 1800 OPERATION MANUAL( AUTOMATED BLOOD COUNTS AND DIFF.) APPENDIX B-3 Chol 254 mg/dL 0-200 Above high normal [facility] ([facility] [...] HCT IS 5% LESS SOURCE FOR DATA: [facility] 1800 OPERATION MANUAL( AUTOMATED BLOOD COUNTS AND DIFF.) APPENDIX B-3 LDL_C 140 Calc 75-129 Above high normal [facility] CLASSIFICATION CHOLESTEROL [...] DIFF.) APPENDIX B-3 Cho/HDL Ratio 2.6 Calc [facility] ([facility] CLASSIFICATION CHOLESTEROL FO R ADULTS [...] HCT IS 5% LESS SOURCE FOR DATA: [facility] 1800 OPERATION MANUAL( AUTOMATED BLOOD COUNTS AND DIFF.) APPENDIX B-3 ID Date Data Source [id number] 06/26/2019 01:32:00 PM EST [facility] ([facility] Name Value Range Interpretation Code Description Data Vicky rce(s) Supporting Document(s) Glu 97 mg/dL 70-110 [facility] ([facility] CLASSIFICATION CHOLESTEROL FO [...] HCT IS 5% LESS SOURCE FOR DATA: [facility] [facility] 1800 OPERATION MANUAL( AUTOMATED BLOOD COUNTS AND DIFF.) APPENDIX B-3 BUN 18 mg/dL 8- [facility] CLASSIFICATION CHOLESTEROL FO R [...] HCT IS 5% LESS SOURCE FOR DATA: [facility] 1800 OPERATION MANUAL( AUTOMATED BLOOD COUNTS AND DIFF.) APPENDIX B-3 BUN/Creatinine Ratio 19.9 CALC [facility] ([facility] CLASSIFICATION CHOLESTEROL FO R [...] HCT IS 5% LESS SOURCE FOR DATA: [facility] 1800 OPERATION MANUAL( AUTOMATED BLOOD COUNTS AND DIFF.) APPENDIX B-3 Na 138 mmol/L 136-[address] [facility] CLASSIFICATION CHOLESTEROL FO R ADULTS [...] DIFF.) APPENDIX B-3 Co2 22.8 mmol/L 22.0-29.0 [employer] ([facility] CLASSIFICATION CHOLESTEROL FO R ADULTS [...] HCT IS 5% LESS SOURCE FOR DATA: [facility] 1800 OPERATION MANUAL( AUTOMATED BLOOD COUNTS AND DIFF.) APPENDIX B-3 K 4.6 mmol/L 3.5-5.1 [facility] CLASSIFICATION CHOLESTEROL FO R ADULTS [...] HCT IS 5% LESS SOURCE FOR DATA: [facility] 1800 OPERATION MANUAL( AUTOMATED BLOOD COUNTS AND DIFF.) APPENDIX B-3 TP 7.4 g/dL 6.6-8.7 [facility] ([facility] CLASSIFICATION CHOLESTEROL FO [...] HCT IS 5% LESS SOURCE FOR DATA: [facility] 1800 OPERATION MANUAL( AUTOMATED BLOOD COUNTS AND [...] DIFF.) APPENDIX B-3 Globulin 3.2 CALC [facility] ([facility] CLASSIFICATION CHOLESTEROL FO R [...] HCT IS 5% LESS SOURCE FOR DATA: [facility] 1800 OPERATION MANUAL( AUTOMATED BLOOD COUNTS AND DIFF.) APPENDIX B-3 Alb 4.2 g/dL 3.4-4.8 [facility] ([facility] CLASSIFICATION [...] HCT IS 5% LESS SOURCE FOR DATA: [facility] 1800 OPERATION MANUAL( AUTOMATED BLOOD COUNTS AND DIFF.) APPENDIX B-3 Ast (Sgot) 15 U/L 0-[address] [facility] CLASSIFICATION CHOLESTEROL FO R ADULTS [...] HCT IS 5% LESS SOURCE FOR DATA: [facility] 1800 OPERATION MANUAL( AUTOMATED BLOOD COUNTS AND [...] APPENDIX B-3 Alt (SGPT) 12 U/L 0-41 [facility] ([facility] CLASSIFICATION CHOLESTEROL FO R ADULTS [...] DIFF.) APPENDIX B-3 Tbili 0.51 mg/dL 0.0-1.[address] [facility] ([facility] CLASSIFICATION CHOLESTEROL FO R ADULTS [...] HCT IS 5% LESS SOURCE FOR DATA: [facility] [facility] 1800 OPERATION MANUAL( AUTOMATED BLOOD COUNTS [...] DIFF.) APPENDIX B-3 Anion Gap 20 mmol/L [facility] ([facility] CLASSIFICATION [...] COUNTS AND DIFF.) APPENDIX B-3 eGFR Non-Afr. Portuguese 63 # [facility] ([facility] [...] HCT IS 5% LESS SOURCE FOR DATA: [facility] 1800 OPERATION MANUAL( AUTOMATED BLOOD COUNTS AND [...] HCT IS 5% LESS SOURCE FOR DATA: [facility] [facility] 1800 OPERATION MANUAL( AUTOMATED BLOOD COUNTS AND DIFF.) APPENDIX B-3 ID Date Data Source [id number] 06/26/2019 01:32:00 PM EST [facility] ([facility] Name Value Range Interpretation Code Description Data Vicky rce(s) Supporting Document(s) WBC 8.1 10E3/uL 4.1-10.9 [facility] ([facility] CLASSIFICATION CHOLESTEROL FO R ADULTS [...] HCT IS 5% LESS SOURCE FOR DATA: [facility] 1800 OPERATION MANUAL( AUTOMATED BLOOD COUNTS AND DIFF.) APPENDIX B-3 HGB 13.1 g/dL 12.0-18.0 [facility] ([facility] CLASSIFICATION CHOLESTEROL FO [...] HCT IS 5% LESS SOURCE FOR DATA: [facility] 1800 OPERATION MANUAL( AUTOMATED BLOOD COUNTS AND [...] DIFF.) APPENDIX B-3 MCH 28.3 pg 26.0-32.0 [facility] ([facility] CLASSIFICATION CHOLESTEROL FO R [...] DIFF.) APPENDIX B-3 MCHC 31.3 g/dL 31.0-36.0 [facility] ([facility] CLASSIFICATION CHOLESTEROL FO [...] DIFF.) APPENDIX B-3 MCV 90.3 fL 80.0-97.0 [facility] ([facility] CLASSIFICATION [...] DIFF.) APPENDIX B-3 PLT 281 10E3/uL 140-[address] [facility] ([facility] CLASSIFICATION CHOLESTEROL FO R ADULTS [...] HCT IS 5% LESS SOURCE FOR DATA: [facility] 1800 OPERATION MANUAL( AUTOMATED BLOOD COUNTS AND DIFF.) APPENDIX B-3 RDW-CV 15.4 % 11.5-14.5 Above high normal [facility] ([facility] CLASSIFICATION CHOLESTEROL [...] HCT IS 5% LESS SOURCE FOR DATA: [facility] 1800 OPERATION MANUAL( AUTOMATED BLOOD COUNTS AND [...] DIFF.) APPENDIX B-3 Lym% 16.6 % 10.0-58.5 [facility] ([facility] CLASSIFICATION [...] APPENDIX B-3 Lym# 1.3 10E3/uL 0.6-4.1 [facility] ([facility] CLASSIFICATION CHOLESTEROL FO R ADULTS [...] HCT IS 5% LESS SOURCE FOR DATA: [facility] 1800 OPERATION MANUAL( AUTOMATED BLOOD COUNTS AND DIFF.) APPENDIX B-3 MXD# 0.8 10E3/uL 0.0-1.8 [facility] ([facility] CLASSIFICATION CHOLESTEROL FO R ADULTS [...] HCT IS 5% LESS SOURCE FOR DATA: [facility] 1800 OPERATION MANUAL( AUTOMATED BLOOD COUNTS [...] APPENDIX B-3 MPV 11.0 fL 9.0-13.0 [facility] ([facility] CLASSIFICATION CHOLESTEROL FO R [...] HCT IS 5% LESS SOURCE FOR DATA: [facility] 1800 OPERATION MANUAL( AUTOMATED BLOOD COUNTS AND DIFF.) APPENDIX B-3 ID Date Data Source [id number] 06/26/2019 01:31:00 PM EST [facility] ([facility] Name Value Range Interpretation Code Description Data Vicky rce(s) Supporting Document(s) Thyrotropin [Units/volume] in Serum or Plasma Laboratory test re sult 0.60-4.8 Below low normal [facility] ([facility] ) Below the Measuring Range ID Date Data Source [id number] 06/07/2019 02:03:00 PM EST [facility] ([facility]) Name Value Range Interpretation Code Description Data Vicky rce(s) Supporting Document(s) Thyroid Stimulating Hormone 0.032 uIU/ML 0.358-3.740 [facility] ([facility]) Free T4 0.98 ng/dL 0.76-1.46 [facility] ([facility]) Procedure Social History Code Duration Value Status Description Data Source(s ) Alcohol intake 06/02/2020 12:00:00 AM EST Ex-drinker (finding) comp leted Ex- drinker (finding) [facility] Tobacco use and exposure 06/02/2020 12:00:00 AM EST Never used co mpleted Never used [facility] Smoking 06/02/2020 12:00:00 AM EST Former smoker completed Former smoker [facility] Smoking 05/05/2020 12:00:00 AM EST Patient is a former smoker completed Patient is a former smoker [facility] ([facility]) Vital Signs ID Date Data Source UNK Name Value Range Interpretation Code Description Data Source(s) Oxygen saturation in Arterial blood by Pulse oximetry 96 % 96 % [facility] ([facility] Body mass index (BMI) [Ratio] 35.9 kg/m2 35.9 k g/m2 [facility] ([facility] [place] body weight 100 [lb_av] 100 [lb_av] MEDEN T ([facility] Body weight 172.00 [lb_av] 172.00 [lb_av] MED[facility] T ([facility] Body height 58 [in_i] 58 [in_i] [facility] ([facility] 4'10" Respiratory rate 18 /min 18 /min [facility] ( [facility] Heart rate 130 /min 130 /min [facility] ([facility] Body temperature 98.0 [degF] 98.0 [degF] [facility] ([facility] Diastolic blood pressure 96 mm[Hg] 96 mm[Hg] [facility] ([facility] Systolic blood pressure 148 mm[Hg] 148 mm[Hg] M EDENT ([facility] Oxygen saturation in Arterial blood by Pulse oximetry 92 % 92 % [facility] ([facility]) Body mass index (BMI) [Ratio] 36.1 kg/m2 36.1 k g/m2 [facility] ([facility]) Body weight 167.00 [lb_av] 167.00 [lb_av] [facility] T ([facility]) Body height 57 [in_i] 57 [in_i] [facility] ([facility]) 4'9" Body temperature 97.0 [degF] 97.0 [degF] [facility] ([facility]) Heart rate 82 /min 82 /min [facility] ([facility]) Diastolic blood pressure 70 mm[Hg] 70 mm[Hg] [facility] ([facility]) Systolic blood pressure 122 mm[Hg] 122 mm[Hg] M EDENT ([facility]) Body mass index (BMI) [Ratio] 34.7 kg/m2 34.7 k g/m2 [facility] ([facility] [place] body weight 100 [lb_av] 100 [lb_av] MED[facility] T ([facility] Body weight 166.00 [lb_av] 166.00 [lb_av] MED[facility] T ([facility] Body height 58 [in_i] 58 [in_i] [facility] ([facility] 4'10" Respiratory rate 18 /min 18 /min [facility] ( [facility] Heart rate 70 /min 70 /min [facility] ([facility] Body temperature 97.6 [degF] 97.6 [degF] [facility] ([facility] Diastolic blood pressure 80 mm[Hg] 80 mm[Hg] [facility] ([facility] Systolic blood pressure 122 mm[Hg] 122 mm[Hg] M EDENT ([facility] Body surface area Derived from formula 1.69 m2 1.69 m2 [facility] ) Body weight 75.808 kg 75.808 kg [facility] ([facility]) [place] body weight 100 [lb_av] 100 [lb_av] MED[facility] T ([facility]) Body mass index (BMI) [Ratio] 34.9 kg/m2 34.9 k g/m2 [facility] ([facility]) Body weight 167.12 [lb_av] 167.12 [lb_av] [facility] T ([facility]) Body height 58 [in_i] 58 [in_i] [facility] ([facility]) 4'10" Diastolic blood pressure 82 mm[Hg] 82 mm[Hg] [facility] Systolic blood pressure 132 mm[Hg] 132 mm[Hg] M EDENT ([facility], ) Oxygen saturation in Arterial blood by Pulse oximetry 95 % 95 % [facility] ([facility] Body mass index (BMI) [Ratio] 34.7 kg/m2 34.7 k g/m2 [facility] ([facility] [place] body weight 100 [lb_av] 100 [lb_av] [facility] T ([facility] Body weight 166.00 [lb_av] 166.00 [lb_av] [facility] T ([facility] Body height 58 [in_i] 58 [in_i] [facility] ([facility] 4'10" Respiratory rate 20 [...] k g/m2 [facility] ([facility] [place] body weight 100 [lb_av] 100 [lb_av] [facility] T ([facility] Body weight 169.00 [lb_av] 169.00 [lb_av] [facility] T ([facility] Body height 58 [in_i] 58 [in_i] [facility] ([facility] 4'10" Respiratory rate 18 /min 18 /min [facility] ( [facility] Heart rate 80 /min 80 /min [facility] ([facility] Body temperature 97.9 [degF] 97.9 [degF] [facility] ([facility] Diastolic blood pressure 74 mm[Hg] 74 mm[Hg] [facility] ([facility] Systolic blood pressure 118 mm[Hg] 118 mm[Hg] M EDENT ([facility] Body surface area Derived from formula 1.71 m2 1.71 m2 [facility] Body weight 78.019 kg 78.019 kg [facility] ([facility]) [place] body weight 100 [lb_av] 100 [lb_av] [facility] T ([facility]) Body mass index (BMI) [Ratio] 35.9 kg/m2 35.9 k g/m2 [facility] ([facility]) Body weight 172.00 [lb_av] 172.00 [lb_av] [facility] T ([facility]) Body height 58 [in_i] 58 [in_i] [facility] 4'10" Diastolic blood pressure 80 mm[Hg] 80 mm[Hg] [facility] ([facility]) Systolic blood pressure 130 mm[Hg] 130 mm[Hg] [facility] Body height 58 [in_i] 58 [in_i] [facility] ([facility] 4'10" Respiratory rate 16 /min 16 /min [facility] ( [facility] Heart rate 70 /min 70 /min [facility] ([facility] Body temperature 97.6 [degF] 97.6 [degF] [facility] ([facility] Diastolic blood pressure 82 mm[Hg] 82 mm[Hg] [facility] ([facility] Systolic blood pressure 128 mm[Hg] 128 mm[Hg] [facility] Oxygen saturation in Arterial blood by Pulse oximetry 92 % 92 % [facility] ([facility] Body mass index (BMI) [Ratio] 35.3 kg/m2 35.3 k g/m2 [facility] ([facility] [place] body weight 100 [lb_av] 100 [lb_av] MED[facility] T ([facility] Body weight 169.00 [lb_av] 169.00 [lb_av] [facility] T ([facility] Body weight 78.019 kg 78.019 kg [facility]) [place] body weight 100 [lb_av] 100 [lb_av] [facility] T ([facility]) Body mass index (BMI) [Ratio] 35.9 kg/m2 35.9 k g/m2 [facility] ([facility]) Body weight 172.00 [lb_av] 172.00 [lb_av] [facility] T ([facility]) Body height 58 [in_i] 58 [in_i] [facility] ([facility]) 4'10" Diastolic blood pressure 80 mm[Hg] 80 mm[Hg] [facility] ([facility]) Systolic blood pressure 120 mm[Hg] 120 mm[Hg] M EDENT ([facility]) Oxygen saturation in Arterial blood by Pulse oximetry 99 % 99 % [facility] ([facility]) Body mass index (BMI) [Ratio] 36.7 kg/m2 36.7 k g/m2 [facility]) Body weight 169.50 [lb_av] 169.50 [lb_av] [facility] T ([facility]) Body height 57 [in_i] 57 [in_i] [facility] 4'9" Body temperature 96.6 [degF] 96.6 [degF] [facility]) Heart rate 76 /min 76 /min [facility] ([facility]) Diastolic blood pressure 74 mm[Hg] 74 mm[Hg] [facility] ([facility]) Systolic blood pressure 124 mm[Hg] 124 mm[Hg] [facility] Oxygen saturation in Arterial blood by Pulse oximetry 90 % 90 % [facility] ([facility] Body mass index (BMI) [Ratio] 35.7 kg/m2 35.7 k g/m2 [facility] ([facility] [place] body weight 100 [lb_av] 100 [lb_av] MEDEN [...] mm[Hg] M EDENT ([facility] [place] body weight 100 [lb_av] 100 [lb_av] MEDEN [...] Pulse oximetry 98 % 98 % [facility] ([facility]) Body mass index (BMI) [Ratio] 38.4 kg/m2 38.4 k g/m2 [facility] ([facility]) Body weight 177.50 [lb_av] 177.50 [lb_av] [facility] T ([facility]) Body height 57 [in_i] 57 [in_i] [facility] ([facility]) 4'9" Heart rate 61 /min 61 /min [facility] ([facility]) Diastolic blood pressure 84 mm[Hg] 84 mm[Hg] [facility] ([facility]) Systolic blood pressure 136 mm[Hg] 136 mm[Hg] M [facility] ([facility]) Oxygen saturation in Arterial blood by Pulse oximetry 96 % 96 % [facility] ([facility]) Body mass index (BMI) [Ratio] 37.0 kg/m2 37.0 k g/m2 [facility] ([facility]) Body weight 171.00 [lb_av] 171.00 [lb_av] [facility] T ([facility]) Body height 57 [in_i] 57 [in_i] [facility] ([facility]) 4'9" Heart rate 80 /min 80 /min [facility] ([facility]) Diastolic blood pressure 76 mm[Hg] 76 mm[Hg] [facility] ([facility]) Systolic blood pressure 118 mm[Hg] 118 mm[Hg] M [facility] ([facility]) Oxygen saturation in Arterial blood by Pulse oximetry 95 % 95 % [facility] ([facility] Body mass index (BMI) [Ratio] 34.9 kg/m2 34.9 k g/m2 [facility] ([facility] [place] body weight 100 [lb_av] 100 [lb_av] [facility] T ([facility] Body weight 167.00 [lb_av] 167.00 [lb_av] [facility] T ([facility] Body height 58 [in_i] 58 [in_i] [facility] ([facility] 4'10" Respiratory rate 14 [...] Pulse oximetry 98 % 98 % [facility] ([facility] Body mass index (BMI) [Ratio] 36.9 kg/m2 36.9 k g/m2 [facility] ([facility] ) Body weight 170.38 [lb_av] 170.38 [lb_av] [facility] T ([facility] ) Body height 57 [in_i] 57 [in_i] [facility] ([facility] 4'9" Heart rate 67 /min 67 /min [facility] ([facility] ) Diastolic blood pressure 80 mm[Hg] 80 mm[Hg] [facility] ([facility]) Systolic blood pressure 124 mm[Hg] 124 mm[Hg] M [facility] ([facility] ) Oxygen saturation in Arterial blood by Pulse oximetry 92 % 92 % [facility] ([facility] ) Body mass index (BMI) [Ratio] 34.7 kg/m2 34.7 k g/m2 [facility] ([facility] Body weight 160.50 [lb_av] 160.50 [lb_av] [facility] T ([facility] ) Body height 57 [in_i] 57 [in_i] [facility] ([facility] 4'9" Heart rate 70 /min 70 /min [facility] ([facility] ) Diastolic blood pressure 80 mm[Hg] 80 mm[Hg] [facility] ([facility]) Systolic blood pressure 134 mm[Hg] 134 mm[Hg] M [facility] ([facility] ) Oxygen saturation in Arterial blood by Pulse oximetry 95 % 95 % [facility] ([facility] Body mass index (BMI) [Ratio] 32.6 kg/m2 32.6 k g/m2 [facility] ([facility] Body weight 156.00 [lb_av] 156.00 [lb_av] MED[facility] T ([facility] Body height 58 [in_i] 58 [in_i] [facility] ([facility] 4'10" Respiratory rate 16 /min 16 /min [facility] ( [facility] Heart rate 66 /min 66 /min [facility] ([facility] Body temperature 98.6 [degF] 98.6 [degF] [facility] ([facility] Diastolic blood pressure 60 mm[Hg] 60 mm[Hg] [facility] ([facility] Systolic blood pressure 116 mm[Hg] 116 mm[Hg] M [facility] ([facility] Oxygen saturation in Arterial blood by Pulse oximetry 93 % 93 % [facility] ([facility]) Body mass index (BMI) [Ratio] 33.8 kg/m2 33.8 k g/m2 [facility] ([facility]) Body weight 156.25 [lb_av] 156.25 [lb_av] [facility] T ([facility]) Body height 57 [in_i] 57 [in_i] [facility] ([facility]) 4'9" Heart rate 78 /min 78 /min [facility] ([facility]) Diastolic blood pressure 76 mm[Hg] 76 mm[Hg] [facility] ([facility]) Systolic blood pressure 110 mm[Hg] 110 mm[Hg] M [facility] ([facility]) Oxygen saturation in Arterial blood by Pulse oximetry 96 % 96 % [facility] ([facility] Body mass index (BMI) [Ratio] 31.8 kg/m2 31.8 k g/m2 [facility] ([facility] Body weight 152.00 [lb_av] 152.00 [lb_av] MED[facility] T ([facility] Body height 58 [in_i] 58 [in_i] [facility] ([facility] 4'10" Respiratory rate 12 /min 12 /min [facility] ( [facility] Heart rate 66 /min 66 /min [facility] ([facility] Body temperature 98.0 [degF] 98.0 [degF] [facility] ([facility] Diastolic blood pressure 72 mm[Hg] 72 mm[Hg] [facility] ([facility] Systolic blood pressure 116 mm[Hg] 116 mm[Hg] Fior BATRES ([facility] ID Date Data Source [id number] 06/06/2020 04:05:20 PM [facility] Name Value Range Interpretation Code Description Data Source(s) WEIGHT RECORDED 173.[address] [facility] ID Date Data Source [id number] 06/08/2020 06:15:08 PM [facility] Name Value Range Interpretation Code Description Data Source(s) WEIGHT RECORDED [address] [facility] Body height Measured 58 in 58 in [facility] ID Date Data Source [id number] 06/17/2020 03:16:29 PM [facility] Name Value Range Interpretation Code Description Data Source(s) WEIGHT RECORDED 136.[address] [facility] Body height Measured 57.99 in 57.99 in [facility] WEIGHT RECORDED [address] [facility] Body height Measured 58 in 58 in [facility] TRANSFER FROM [facility] Patient Treatment Plan of Care Planned Activity Planned Date Details Description Data Source (s) POLYETHYLENE GLYCOL 3350 142 MG/ML Oral Solution 06/03/2020 12:00:0 0 AM [facility] POLYETHYLENE GLYCOL 3350 59 MG/ML / Pota ssium Chloride 0.01 MEQ/ML / Sodium Bicarbonate 0.02 MEQ/ML / Sodium Chloride 0.025 MEQ/ML / sodium sulfate 0.04 MEQ/ML Oral Solution 06/03/2020 12:00:00 AM [facility] Bisacodyl 5 MG Delayed Release Oral Tablet 06/03/2020 12:00:00 AM [facility] Morphine Sulfate 15 MG Oral Tablet 06/02/2020 12:00:00 AM [facility] Docusate Sodium 10 MG/ML Oral Suspension 06/02/2020 12:00:00 AM [facility] Oxycodone Hydrochloride 5 MG Oral Capsule 06/02/2020 12:00:00 AM [facility] Ondansetron 8 MG Oral Tablet 05/30/2020 12:00:00 AM [facility] Prochlorperazine 10 MG Oral Tablet 05/30/2020 12:00:00 AM [facility] 72 HR Fentanyl 0.025 MG/HR Transdermal Patch 05/22/2020 12:00:00 AM [facility] Lidocaine 5 % External Patch (LIDODERM) 05/18/2020 12:00:00 AM [facility] POLYETHYLENE GLYCOL 3350 142 MG/ML Oral Solution 05/18/2020 12:00:0 0 AM [facility] oxyCODONE HCl ER 20 MG Oral Tablet ER 12 Hour [place] (OXYCONTIN) 05/17/2020 12:00:00 AM [facility] 12 HR Guaifenesin 600 MG Extended Release Oral Tablet 05/17/2020 12:00:00 AM [facility] ospital Docusate Sodium 10 MG/ML Oral Suspension 05/17/2020 12:00:00 AM [facility] alginic acid 200 MG / Calcium Carbonate 80 MG / magnesium trisilicate 20 MG / Sodium Bicarbonate 70 MG Oral Tablet 05/17/2020 12:00:00 AM [facility] Acetaminophen 325 MG Oral Tablet 05/17/2020 12:00:00 AM [facility] Ondansetron 4 MG Oral Tablet 05/17/2020 12:00:00 AM [facility] Simethicone 80 MG Chewable Tablet 05/17/2020 12:00:00 AM [facility] Methocarbamol 500 MG Oral Tablet 05/17/2020 12:00:00 AM [facility] Simethicone 80 MG Chewable Tablet 05/14/2020 07:38:45 AM [facility] ondansetron (ZOFRAN) injection 4 mg 05/11/2020 09:16:28 AM [facility] torsemide 10 MG Oral Tablet [facility] Warfarin Sodium 2 MG Oral Tablet [facility] tramadol hydrochloride 50 MG Oral Tablet [facility]
[2020-06-18 20:33] LABS: RSV AMPLIFICATION NEGATIVE (NEGATIVE)
[2020-06-18 20:38] LABS: HEMOGLOBIN A1c 5.5 %
[2020-06-18 21:02] LABS: FERRITIN 506 NG/ML (8-252); IRON (FE) 32 UG/DL (50-170); PERCENT SATURATION 15.6 % (13.2-45.0); TOTAL IRON BINDING CAPACITY 205 UG/DL (250-450)
[2020-06-18 21:09] LABS: FOLATE 5.1 NG/ML (>5.4); VITAMIN B12 LEVEL > 2000 PG/ML (247-911)
[2020-06-18] MEDS ORDERED: MAGNESIUM OXIDE 400 MG TAB (MAG-OX) PO ONE (21:45)
[2020-06-18 21:46] LABS: CPK CREATINE PHOSPHOKINASE 23 U/L (26-192); LDH LACTATE DEHYDROGENASE 342 U/L (84-246); TROPONIN I 0.04 NG/ML (< 0.10)
[2020-06-18] MEDS ORDERED: ceFAZolin SOD 1 GM in D5W MINI-BAG PLUS 50 ML IV SCH (22:00)
[2020-06-18 22:16] LABS: FIBRINOGEN 417 MG/DL (221-452); INR 1.12; PARTIAL THROMBOPLASTIN TIME 32.6 SECONDS (24.2-38.5); PROTHROMBIN TIME 14.6 SECONDS (12.5-14.3)
[2020-06-18 22:38] LABS: D-DIMER QUANT > 4000 ng/ml (<500)
[2020-06-18] MEDS ORDERED: MORPHINE 15 MG SA TAB PO PRN (22:45)
[2020-06-18] MEDS ORDERED: ALBUTEROL 90 MCG/ACT 8GM HFA INHALER INH PRN (22:45)
[2020-06-18] MEDS ORDERED: PROCHLORPERAZINE 5 MG TAB (S0183) PO PRN (22:45)
[2020-06-18] MEDS ORDERED: ACETAMINOPHEN 500 MG TAB PO PRN (22:45)
[2020-06-18] MEDS ORDERED: FENTANYL REMOVAL DOCUMENTATION MISC XX SCH (22:45)
--- NOTE | 2020-06-18 23:39 | REPVR ---
PROCEDURE INFORMATION: Exam: US Duplex Left Lower Extremity Veins, Limited Exam date and time: 06/18/2020 10:47 PM Age: 74 years old Clinical indication: Pain; Leg, upper; Left; Additional info: Left leg redness and swelling TECHNIQUE: Imaging protocol: Real-time Duplex ultrasound of the Left Lower Extremity with 2-D alvarez scale, color Doppler flow and spectral waveform analysis with image documentation. Limited exam focused on the left lower extremity veins. COMPARISON: US Duplex, Ext,LOWER veins,unilat 04/29/2020 2:46 PM FINDINGS: Left deep veins: There is hypoechoic thrombus occluding the left common femoral vein. Because this is hypoechoic and occlusive it is consistent acute deep venous thrombosis. The left leg demonstrated venous return in January. There is also complete thrombosis of the profundal vein/deep femoral vein. Thrombus is noted along the margin of the proximal, mid and distal superficial femoral vein. There is thrombus filling approximately 1/2 of popliteal vein. These areas are nonocclusive thrombus as there is some venous return. Left superficial veins: There is venous return of the greater saphenous vein. IMPRESSION: 1. There is hypoechoic acute deep venous thrombosis filling the entire left common femoral vein and also the profundal vein. 2. There is thrombus along the margin the proximal, mid and distal superficial femoral vein. Also there is thrombus within half of the popliteal vein. Electronically signed by: Sascha Canales On 06/18/2020 23:38:55 PM
[2020-06-18 23:58] VITALS: BP 106/49
[2020-06-19] VITALS (13 sets, daily range): BP systolic 88–114; BP diastolic 48–70
[2020-06-19] MEDS ORDERED: NS 1,000 ML IV ONE
[2020-06-19] MEDS ORDERED: ISOVUE-370 76% 100ML VIAL As Ordered ONE (00:05)
[2020-06-19 00:25] LABS: NT-PRO BNP 1636 PG/ML (<125)
--- NOTE | 2020-06-19 01:31 | REPVR ---
PROCEDURE INFORMATION: Exam: CT Angiography Chest With Contrast Exam date and time: 06/18/2020 11:59 PM Age: 74 years old Clinical indication: Other: Dvt; Additional info: Hypotension, dvt despite lovenox submassive pe? TECHNIQUE: Imaging protocol: Computed tomographic angiography of the chest with intravenous contrast. 3D rendering (Not supervised by radiologist): MIP and/or 3D reconstructed images were created by the technologist. Radiation optimization: All CT scans at this facility use at least one of these dose optimization techniques: automated exposure control; mA and/or kV adjustment per patient size (includes targeted exams where dose is matched to clinical indication); or iterative reconstruction. Contrast material: ISO; Contrast volume: 75 ml; Contrast route: INTRAVENOUS (IV); COMPARISON: CT ANGIO CHEST 05/09/2020 7:16 PM FINDINGS: Pulmonary arteries: There is a new small pulmonary embolism in the right lower lobe. Other small emboli seen in the right lower lobe seen on the prior exam are no longer present. No other central pulmonary embolism is seen. Main pulmonary artery remains mildly dilated. Small chronic pulmonary embolus in the left lower lobe main pulmonary artery is not significantly changed. Aorta: Unremarkable. No aortic aneurysm. No aortic dissection. Thyroid: Stable nodule in the left lobe of the thyroid gland. Lungs: Unremarkable. No consolidation. No masses. Pleural spaces: Unremarkable. No pneumothorax. No pleural effusion. Heart: Stable mild cardiomegaly. No pericardial effusion. Lymph nodes: Unremarkable. No enlarged lymph nodes. Liver: Large mass in the anterolateral liver has increased in size measuring approximately 11.5 cm. Other masses in the liver have increased in size and number. Right hemidiaphragm is elevated due to the enlarged liver. Gallbladder and bile ducts: Gallbladder remains severely dilated with multiple intraluminal calculi including a large impacted stone in the gallbladder neck. No pericholecystic fluid. Bones/joints: Unremarkable. No acute fracture. Soft tissues: Unremarkable. IMPRESSION: 1. One new small pulmonary embolism in the right lower lobe. Other right lower lobe emboli seen on the prior exam are no longer present. Stable chronic nonocclusive pulmonary embolism in the left lower lobe. No central pulmonary embolism. 2. Significant interval increase in size of the largest liver mass. Other smaller masses in the liver have increased in size and number. 3. Persistent severe dilation of the gallbladder with numerous calculi and impacted stone in the gallbladder neck. COMMENTS: Consistent with the [employer]'s Incidental Findings Committee white paper (J Am Vincenzo Radiol 2015): In patients aged 35 years and older with an incidental thyroid nodule equal to or greater than 1.[address], MRI or extrathyroidal US, further evaluation with dedicated thyroid US is recommended for patients with normal life expectancy and without comorbidities. For smaller nodules without suspicious features, no further evaluation or follow up is recommended. Electronically signed by: Diego Joseph On 06/19/2020 01:30:19 AM
[2020-06-19] MEDS ORDERED: HEPARIN SOD (PORCINE) 5000UNITS/ML 1ML VIAL/SYRINGE IV PRN (01:45)
[2020-06-19 02:27] LABS: HEMOGLOBIN 6.2 g/dl (12.0-15.5)
[2020-06-19] MEDS: VANCOMYCIN HCL 1,000 MG, VIAL MATE ADAPTER 1 EACH in D5W 250 ML IV SCH (02:34)
[2020-06-19] MEDS: HEPARIN DRIP 25,000 UNITS in IV 1 EA IV SCH ×2 (02:52→22:37)
[2020-06-19] MEDS ORDERED: VANCOMYCIN HCL 500 MG in D5W MINI-BAG PLUS 100 ML IV ONE (04:00)
[2020-06-19] MEDS ORDERED: FONDAPARINUX SODIUM 2.5 MG/0.5 ML SYR (J1652 PER 0.5MG) SC SCH (09:00)
[2020-06-19] MEDS: FLUoxetine 20 MG CAP PO SCH (10:49)
[2020-06-19] MEDS: ceFAZolin SOD 1 GM in D5W MINI-BAG PLUS 50 ML IV SCH ×2 (10:49→19:01)
[2020-06-19] MEDS: POTASSIUM CHLORIDE 10 MEQ SR TABLET PO SCH (10:49)
[2020-06-19] MEDS: TORSEMIDE 10 MG TABLET PO SCH (10:50)
[2020-06-19] MEDS: LEVOTHYROXINE 88MCG TABLET (0.088 MG) PO SCH (10:50)
[2020-06-19] MEDS: fentaNYL 25 MCG/HR PATCH TD SCH (10:51)
[2020-06-19 10:52] LABS: HEMATOCRIT 32.3 % (36.0-47.0); MEAN CORPUSCULAR HEMOGLOBIN 26.5 pg (27.0-33.0); MEAN CORPUSCULAR HGB CONC 31.9 g/dl (32.0-36.5); RED BLOOD COUNT 3.89 10^6/uL (4.00-5.40); WHITE BLOOD COUNT 8.6 10^3/uL (4.0-10.0)
[2020-06-19 10:56] LABS: HEMOGLOBIN 10.3 g/dl (12.0-15.5); PLATELET COUNT, AUTOMATED 52 10^3/uL (150-450)
[2020-06-19 11:27] LABS: ALBUMIN 1.9 GM/DL (3.2-5.2); CALCIUM LEVEL 8.2 MG/DL (8.8-10.2); CREATININE FOR GFR 1.02 MG/DL (0.55-1.30); GLOMERULAR FILTRATION RATE 56.6 (>39); MAGNESIUM LEVEL 1.3 MG/DL (1.8-2.4)
[2020-06-19 11:42] LABS: HEMOGLOBIN A1c 5.1 %
[2020-06-19] MEDS: MAG SULF 1GM/100ML (MAG RUN) 1 GM in IV 1 EA IV SCH ×4 (12:16→16:10)
--- NOTE | 2020-06-19 15:36 | REP ---
INDICATION: DVT despite lovenox/HIT. COMPARISON: Comparison sonography study 29 April 2020 showed extensive DVT in the right lower extremity.. TECHNIQUE: Right lower extremity duplex venous ultrasound. FINDINGS: There is echogenic material inhibiting compression along the medial wall of the common femoral and proximal femoral vein on the right consistent with chronic or subacute venous thrombosis. This is nonocclusive. The femoral vein below this and the popliteal vein are patent on two-dimensional scanning and fully compressible. Color flow and spectral Doppler interrogation unremarkable.. IMPRESSION: Study is positive for echogenic non occlusive thrombus along the wall of the proximal femoral vein and common femoral vein segment. This is less extensive than on the prior ultrasound from April 29, 2020 and is consistent with subacute or chronic thrombus.. <Electronically signed by Sonny Rico > 06/19/20 1535
--- NOTE | 2020-06-19 19:15 | CR.PDOC ---
General Date of Consultation: Jun 19, 2020 Referring Provider: TUSHAR AYALA MD Attending Physician: MILI SHAIKH DO Consultation REASON FOR CONSULTATION/CHIEF COMPLAINT: Recurrent VTE. 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 On review of her medical records, she had a PE in 03/2016 and this was noted in subsequent imaging studies up to 09/2016. She was on anticoagulation at that time. A CT abdomen and pelvis in 01/2020 showed pulmonary emboli in lower lungs. She was started on anticoagulation at that time. CT abdomen 03/28/2020 showed left portal vein thrombosis, which was deemed a new finding compared to 01/2020. A CT chest angiography study 05/09/2020 showed partial resolution of pulmonary emboli in both lower lobes. A CT chest angiography study 06/18/2020 on this admission showed one new small pulmonary embolus in the right lower lobe and a stable, chronic, nonocclusive pulmonary embolism in left lower lobe. Duplex ultrasound of right lower extremity showed a less extensive nonocclusive thrombus along the wall of proximal femoral vein and common femoral segment. As far as I could tell from [facility] records, she has been on enoxaparin since January 2020. Her records also state liver cancer with liver lesions initially noted on 02/18/2020. There was apparently a liver biopsy when she was in [facility] but I do not have these records. The patient states that she was diagnosed in April 2020 with a liver malignancy. She thinks that she received chemotherapy in [facility] when she was admitted to that facility. On this admission CT angiography study 06/18/2020 showed significant interval increase in size of the largest liver mass and increase in size and number of other smaller masses in the liver. ALLERGIES: Please see below. HOME MEDICATIONS: Please see below. PAST MEDICAL HISTORY: Liver carcinoma Chronic pancreatic cyst Chronic cholelithiasis Ulcerative colitis Hyperthyroidism with iatrogenic hypothyroidism s/p radioactive iodine ablation 2x RLE DVT/PE (Jan 2020 on lovenox) Anxiety/depression Debility uses a cane to ambulate s/p bilateral knee replacements Ventral hernia repair Rectocele repair Stool transplant FAMILY HISTORY: Father: CAD, HTN. at 78 y/o Mother: health. at 93 y/o SOCIAL HISTORY: Former smoker half pack per day for 15 years. Quit in 1999. Denies alcohol or drug use. She lives alone retired in 2013 PHYSICAL EXAMINATION: VITAL SIGNS: Please see below. GENERAL APPEARANCE: Obese, seated comfortably on chair, not in distress, answered questions appropriately. HEENT: Atraumatic. Normocephalic. Moist oral mucosa. ABDOMEN: Obese. Dressing on right upper quadrant. Ecchymosis on anterior abdominal wall. MUSCULOSKELETAL: Moved up for an lower extremities spontaneously. NEUROLOGICAL: Alert. Oriented to time, place and person. PSYCHIATRIC: At times anxious. LABORATORY DATA: Please see below. ASSESSMENT/PLAN: 74-year-old with recurrent VTE currently on heparin anticoagulation. Also has thrombocytopenia, likely related to viral infection. Unlikely to have heparin-induced thrombocytopenia as pattern of thrombocytopenia not consistent with HIT. Liver malignancy with liver biopsy 04/2020 in [facility] according to the patient. Would continue monitoring blood counts and transfusion support as needed. Would consider discontinuing anticoagulation if platelet count goes below 50 and patient has signs and symptoms of active bleeding. Would switch back to enoxaparin if H&H stabilizes and patient's symptoms of chest pains improve as presumably chest pain is related to PE. Will obtain records from [facility] regarding liver biopsy pathology. Will arrange follow-up appointment as an outpatient once patient is discharged. Thank you for referring Ms. Munira Guerra. Vital Signs/I&O Vital Signs Date Time Temp Pulse Resp B/P (MAP) Pulse Ox O2 Delivery O2 Flow Rate FiO2 06/19/20 13:09 97.8 73 18 97/52 (67) 97 Room Air I&O- Last 24 Hours up to 6 AM 06/19/20 06:00 Intake Total 1290 ml Output Total 575 ml Balance 715 ml Laboratory Data Labs 24H Laboratory Tests 2 06/18/20 19:49: Coronavirus (COVID-19)(PCR) POSITIVEA, Influenza Type A (RT-PCR) NEGATIVE, Influ linda Type B (RT-PCR) NEGATIVE, Respiratory Syncytial Virus (PCR) NEGATIVE 06/18/20 20:13: Estimated Mean Plasma Glucose 111H, Hemoglobin A1c 5.5, Magnesium Level 1.3L, Iron Level 32L, Total Iron Binding Capacity 205L, Transferrin % Saturation 15.6, Ferritin 506H, Lactate Dehydrogenase 342H, Total Creatine Kinase 23L, Troponin I 0.04, C-Reactive Protein, Quantitative 10.50H, KB-Tcl-F-Type Natriuretic Peptide 1636H, Vitamin B12 Level > 2000H, Folate 5.1L 06/18/20 21:57: Prothrombin Time 14.6H, Prothromb Time International Ratio 1.12, Activated Partial Thromboplast Time 32.6, Fibrinogen 417, D-Dimer, Quantitative > 4000H 06/19/20 02:14: Activated Partial Thromboplast Time 34.3, Reticulocyte # (auto) 71.7, Percent Reticulocyte Count 2.8H, Reticulocyte Hemoglobin Equivalent 36.3H 06/19/20 10:27: Nucleated Red Blood Cells % (auto) 1.2H, Activated Partial Thromboplast Time 55.0H, Anion Gap 7L, Glomerular Filtration Rate 56.6, Estimated Mean Plasma Glucose 100, Hemoglobin A1c 5.1, Calcium Level 8.2L, Magnesium Level 1.3L, Total Bilirubin 1.0#, Aspartate Amino Transf (AST/SGOT) 19, Alanine Aminotransferase ( ALT/SGPT) 11L, Alkaline Phosphatase 139H, Total Protein 5.0L, Albumin 1.9L, Albumin/Globulin Ratio 0.6L CBC/BMP Laboratory Tests 06/18/20 20:13 06/19/20 02:14 06/19/20 10:27 06/19/20 15:26 Microbiology Microbiology 06/18/20 Gram Stain - Final, Resulted 06/18/20 Wound Culture, Resulted Pending Allergies Coded Allergies: No Known Drug Allergies (Verified Allergy, Unknown, 02/27/19) Home Medications Scheduled Enoxaparin Sodium (Lovenox) 80 Mg/0.8 Ml Syringe, 80 MG SC QHS, (Reported) Fentanyl (Duragesic) 25 Mcg Patch.td72, 25 MCG TD Q3RD, (Reported) APPLIED TO LEFT SIDE OF CHEST Fluoxetine Hcl (Fluoxetine HCl) 20 Mg Cap, 20 MG PO DAILY, (Reported) Levothyroxine Sodium (Levothyroxine Sodium) 88 Mcg Tablet, 88 MCG PO DAILY, (Reported) Potassium Chloride (Potassium Chloride) 10 Meq Cap, 10 MEQ PO DAILY, (Reported) Torsemide (Torsemide) 10 Mg Tablet, 10 MG PO DAILY, (Reported) Scheduled PRN Acetaminophen (Tylenol Extra Strength) 500 Mg Tablet, 1,000 MG PO TID PRN for PAIN, (Reported) Albuterol Sulfate (Proair Hfa) 8.5 Gm Hfa.aer.ad, 2 PUFF INH Q4-6HP PRN for wheezing for 21 Days, #1 Morphine Sulfate (Morphine Sulfate ER) 15 Mg Tablet.er, 1 TAB PO Q6HP PRN for pain for 5 Days, #10 (Reported) Ondansetron HCl (Ondansetron HCl) 8 Mg Tablet, 8 MG PO Q12H PRN for NAUSEA OR VOMITING, #30 (Reported) Prochlorperazine Maleate (Prochlorperazine Maleate) 10 Mg Tablet, 10 MG PO Q6H PRN for NAUSEA OR VOMITING, #30 (Reported) for use during chemo GAY WORLEY MD Jun 19, 2020 18:43
--- NOTE | 2020-06-19 20:05 | IPNPDOC ---
Subjective Date Seen The patient was seen on 06/19/20. Subjective Chief Complaint/HPI Patient is a 74 year old female with liver cancer diagnosed at [facility] and VTEs in February 2020 who presents with pleuritic chest pain and reported green drainage under right breast. This morning when I saw her, she reported pleuritic chest pain. I examined the area where she reported drainage. Appeared to have healed and no current drainage. Otherwise, I spoke with vascular surgery about the left DVT. No TPA at this time. Recommended anticoagulation and elevation of the leg. Follow up outpatient in 3 months with re-imaging. I spoke with Dr. Maguire about abscess vs necrotic mass. She did not recommend drainage. Recommended chemotherapy and monitoring. I spoke with the patient son. He reported that she is compliant with the Lovenox injections. She have been receiving 80mg subq qHS at home, and he makes sure she takes them. I spoke with Dr. Garcia who will see the patient later today. Objective Physical Examination General Exam: Positive: Cooperative Eye Exam: Negative: Sclera icteric Neck Exam: Positive: Supple Chest Exam: Positive: Clear to auscultation; Negative: Rales, Rhonchi, Wheezing Heart Exam: Positive: Rate Normal, Regular Rhythm Abdomen Exam: Positive: Normal bowel sounds, Soft; Negative: Tenderness Extremity Exam: Positive: Edema (left leg ) Assessment /Plan Assessment Patient is a 74 year old female with liver cancer diagnosed at [facility] and VTEs in February 2020 who presents with pleuritic chest pain and reported green drainage under right breast. She has failed outpatient therapy with Lovenox. She is complicated by anemia and low platelet count. Hematology/Oncology consulted. Recommendations appreciated. Otherwise, spoke with Vascular surgery. No TPA at this time, recommending eleva tion of leg and outpatient follow up in 3 months for left leg DVT. Spoke with IR about liver necrotic mass. No drainage. Plan/VTE VTE Prophylaxis Ordered?: Yes Plan 1. Failed outpatient therapy for VTE -Per son, patient has been compliant with Lovenox 80mg subq qHS -Currently on heparin drip -Monitoring platelet count and anemia 2. Liver cancer -Was diagnosed with liver cancer at [facility] -Will attempt to obtain records from [facility] -Heme/Onc consulted, recommendations appreciated 3. Anemia -Hemoglobin dropped to a low of 6.2 -Hemolysis vs blood loss -Transfused 2u pRBC -Monitor CBC 4. Thrombocytopenia -Heme/onc consulted, recommendations appreciated -If platelets drop below 50, will need to contact Heme/Onc about stopping the heparin drip 5. Necrotic liver mass -Spoke with IR, no drainage here -Heme/onc consulted, recommendations appreciated 6. Left leg swelling -DVT vs cellulitis -On heparin drip -On Cefazolin and vancomycin 7. Obesity -BMI of 37.3 8. DVT ppx -On heparin drip VS, I&O, 24H, Fishbone Vital Signs/I&O Vital Signs Date Time Temp Pulse Resp B/P (MAP) Pulse Ox O2 Delivery O2 Flow Rate FiO2 06/19/20 13:09 97.8 73 18 97/52 (67) 97 Room Air l I&O- Last 24 Hours up to 6 AM 06/19/20 06:00 Intake Total 1290 ml Output Total 575 ml Balance 715 ml Laboratory Data 24H LABS Laboratory Tests 2 06/18/20 19:49: Coronavirus (COVID-19)(PCR) POSITIVEA, Influenza Type A (RT-PCR) NEGATIVE, Influenza Type B (RT-PCR) NEGATIVE, Respiratory Syncytial Virus (PCR) NEGATIVE 06/18/20 20:13: Estimated Mean Plasma Glucose 111H, Hemoglobin A1c 5.5, Magnesium Level 1.3L, Iron Level 32L, Total Iron Binding Capacity 205L, Transferrin % Saturation 15.6, Ferritin 506H, Lactate Dehydrogenase 342H, Total Creatine Kinase 23L, Troponin I 0.04, C-Reactive Protein, Quantitative 10.50H, TW-Epd-B-Type Natriuretic Peptide 1636H, Vitamin B12 Level > 2000H, Folate 5.1L 06/18/20 21:57: Prothrombin Time 14.6H, Prothromb Time International Ratio 1.12, Activated Partial Thromboplast Time 32.6, Fibrinogen 417, D-Dimer, Quantitative > 4000H 06/19/20 02:14: Activated Partial Thromboplast Time 34.3, Reticulocyte # (auto) 71.7, Percent Reticulocyte Count 2.8H, Reticulocyte Hemoglobin Equivalent 36.3H 06/19/20 10:27: Nucleated Red Blood Cells % (auto) 1.2H, Activated Partial Thromboplast Time 55.0H, Anion Gap 7L, Glomerular Filtration Rate 56.6, Estimated Mean Plasma Glucose 100, Hemoglobin A1c 5.1, Calcium Level 8.2L, Magnesium Level 1.3L, Total Bilirubin 1.0#, Aspartate Amino Transf (AST/SGOT) 19, Alanine Aminotransferase (ALT/SGPT) 11L, Alkaline Phosphatase 139H, Total Protein 5.0L, Albumin 1.9L, Albumin/Globulin Ratio 0.6L CBC/BMP Laboratory Tests 06/18/20 20:13 06/19/20 02:14 06/19/20 10:27 06/19/20 15:26 Microbiology Microbiology 06/18/20 Gram Stain - Final, Resulted 06/18/20 Wound Culture, Resulted Pending MILI SHAIKH DO Jun 19, 2020 16:32
[2020-06-20] VITALS: BP 113/56
[2020-06-20] MEDS: ceFAZolin SOD 1 GM in D5W MINI-BAG PLUS 50 ML IV SCH ×3 (02:11→17:59)
[2020-06-20] MEDS: VANCOMYCIN HCL 1,000 MG, VIAL MATE ADAPTER 1 EACH in D5W 250 ML IV SCH (03:03)
[2020-06-20 04:00] VITALS: BP 105/53
[2020-06-20 07:27] LABS: HEMATOCRIT 29.5 % (36.0-47.0); HEMOGLOBIN 9.3 g/dl (12.0-15.5); MEAN CORPUSCULAR HEMOGLOBIN 26.1 pg (27.0-33.0); MEAN CORPUSCULAR HGB CONC 31.5 g/dl (32.0-36.5); MEAN CORPUSCULAR VOLUME 82.6 fl (80.0-96.0); RED BLOOD COUNT 3.57 10^6/uL (4.00-5.40); WHITE BLOOD COUNT 7.4 10^3/uL (4.0-10.0)
[2020-06-20 07:29] LABS: PLATELET COUNT, AUTOMATED 79 10^3/uL (150-450)
[2020-06-20 07:47] LABS: ALBUMIN 1.9 GM/DL (3.2-5.2); BILIRUBIN,TOTAL 0.5 MG/DL (0.2-1.0); CALCIUM LEVEL 8.3 MG/DL (8.8-10.2); CREATININE FOR GFR 1.06 MG/DL (0.55-1.30); GLOMERULAR FILTRATION RATE 54.1 (>39); POTASSIUM SERUM 3.6 MEQ/L (3.5-5.1)
[2020-06-20 08:00] VITALS: BP 97/52
[2020-06-20] MEDS ORDERED: SLF 3 ML SYR IV PRN (08:15)
[2020-06-20] MEDS: TORSEMIDE 10 MG TABLET PO SCH (08:45)
[2020-06-20] MEDS: LEVOTHYROXINE 88MCG TABLET (0.088 MG) PO SCH (08:45)
[2020-06-20] MEDS: ONDANSETRON 4 MG TAB PO PRN (08:45)
[2020-06-20] MEDS: FLUoxetine 20 MG CAP PO SCH (08:45)
[2020-06-20] MEDS: POTASSIUM CHLORIDE 10 MEQ SR TABLET PO SCH (08:46)
[2020-06-20 12:00] VITALS: BP 97/55
[2020-06-20 12:22] LABS: HEMATOCRIT 31.2 % (36.0-47.0); HEMOGLOBIN 9.8 g/dl (12.0-15.5); MEAN CORPUSCULAR HEMOGLOBIN 26.3 pg (27.0-33.0); MEAN CORPUSCULAR HGB CONC 31.4 g/dl (32.0-36.5); MEAN CORPUSCULAR VOLUME 83.9 fl (80.0-96.0); RED BLOOD COUNT 3.72 10^6/uL (4.00-5.40)
[2020-06-20 12:24] LABS: PLATELET COUNT, AUTOMATED 81 10^3/uL (150-450)
[2020-06-20] MEDS: SLF 3 ML SYR IV SCH ×2 (14:00→21:37)
[2020-06-20 16:46] VITALS: BP 104/57
[2020-06-20 18:35] LABS: HEMATOCRIT 31.3 % (36.0-47.0); HEMOGLOBIN 9.8 g/dl (12.0-15.5); MEAN CORPUSCULAR HEMOGLOBIN 26.1 pg (27.0-33.0); MEAN CORPUSCULAR HGB CONC 31.3 g/dl (32.0-36.5); MEAN CORPUSCULAR VOLUME 83.5 fl (80.0-96.0); RED BLOOD COUNT 3.75 10^6/uL (4.00-5.40); WHITE BLOOD COUNT 7.4 10^3/uL (4.0-10.0)
[2020-06-20 18:39] LABS: PLATELET COUNT, AUTOMATED 90 10^3/uL (150-450)
--- NOTE | 2020-06-20 19:05 | IPNPDOC ---
Subjective Date Seen The patient was seen on 06/20/20. Subjective Chief Complaint/HPI Mrs. Guerra is a 74 year old female with liver cancer diagnosed at [facility] and VTEs in February 2020 who presents with pleuritic chest pain and reported green drainage under right breast. This morning, she denied any chest pain or worsening dyspnea. We obtained records from [facility]. 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 She was started on Gemcitabine and cisplatin at [facility]. Spoke with heme/onc. Hemoglobin has remained stable and thrombocytopenia has improved. 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 If her numbers remain stable, she may be able to go home tomorrow with Lovenox and po antibiotics Objective Physical Examination General Exam: Positive: Cooperative Eye Exam: Negative: Sclera icteric Neck Exam: Positive: Supple Chest Exam: Positive: Clear to auscultation; Negative: Rales, Rhonchi, Wheezing Heart Exam: Positive: Rate Normal, Regular Rhythm Abdomen Exam: Positive: Normal bowel sounds, Soft; Negative: Tenderness Extremity Exam: Positive: Edema (left leg ) Assessment /Plan Assessment Patient is a 74 year old female with liver cancer diagnosed at [facility] and VTEs in February 2020 who presents with pleuritic chest pain and reported green drainage under right breast. She has failed outpatient therapy with Lovenox. She is complicated by anemia and low platelet count. Hematology/Oncology consulted. Recommendations appreciated. Otherwise, spoke with Vascular surgery. No TPA at this time, recommending e levation of leg and outpatient follow up in 3 months for left leg DVT. Spoke with IR about liver necrotic mass. No drainage. Received documents from [facility]. 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 She was started on gemcitabine and cisplatin at [facility]. Dr. Garcia is aware of this and would like to see her in her clinic after discharge. Otherwise she has been improving. Hemoglobin remained stable and platelets are trending upwards. If remains stable, possible discharge home tomorrow with home health services and home PT. Plan/VTE VTE Prophylaxis Ordered?: Yes Plan 1. Failed outpatient therapy for VTE -Per son, patient has been compliant with Lovenox 80mg subq qHS -Currently on heparin drip -Monitoring platelet count and anemia -Spoke with heme/onc. To continue with Lovenox 80mg subq qHS on discharge 2. 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 Anemia -Hemoglobin dropped to a low of 6.2 -Hemolysis vs blood loss -Transfused 2u pRBC and responded appropriately -Monitor CBC 4. Thrombocytopenia -Heme/onc consulted, recommendations appreciated -If platelets drop below 50, will need to contact Heme/Onc about stopping the heparin drip -Platelets trending upwards 5. Necrotic liver mass -Spoke with IR, no drainage here -Heme/onc consulted, recommendations appreciated 6. Left leg swelling -DVT vs cellulitis -On heparin drip -On Bactrim 7. Obesity -BMI of 37.3 8. DVT ppx -On heparin drip Disposition: If remains stable, possible discharge tomorrow with Lovenox and Bactrim DS VS, I&O, 24H, Fishbone Vital Signs/I&O Vital Signs Date Time Temp Pulse Resp B/P (MAP) Pulse Ox O2 Delivery O2 Flow Rate FiO2 06/20/20 16:46 98.3 67 18 104/57 (73) 97 Room Air I&O- Last 24 Hours up to 6 AM 06/20/20 05:59 Intake Total 1189.5 ml Output Total 1275 ml Balance -85.5 ml Laboratory Data 24H LABS Laboratory Tests 2 06/20/20 01:09: Activated Partial Thromboplast Time 101.3H 06/20/20 07:03: Nucleated Red Blood Cells % (auto) 0.5H, Immature Platelet Fraction 7.7, Anion Gap 7L, Glomerular Filtration Rate 54.1, Calcium Level 8.3L, Total Bilirubin 0.5, Aspartate Amino Transf (AST/SGOT) 11, Alanine Aminotransferase (ALT/SGPT) 8L, Alkaline Phosphatase 183H, Total Protein 5.0L, Albumin 1.9L, Albumin/Globulin Ratio 0.6L 06/20/20 11:57: Nucleated Red Blood Cells % (auto) 0.5H 06/20/20 18:12: Nucleated Red Blood Cells % (auto) 0.4H CBC/BMP Laboratory Tests 06/19/20 20:56 06/20/20 07:03 06/20/20 11:57 06/20/20 18:12 Microbiology Microbiology 06/18/20 Gram Stain - Final, Resulted 06/18/20 Wound Culture, Resulted Pending MILI SHAIKH DO Jun 20, 2020 19:05
[2020-06-20 20:00] VITALS: BP 108/52
[2020-06-20] MEDS: HEPARIN DRIP 25,000 UNITS in IV 1 EA IV SCH (20:25)
[2020-06-20] MEDS ORDERED: CEFDINIR 300 MG CAP (OMNICEF) PO SCH (21:00)
[2020-06-20] MEDS: BACTRIM 160MG/800MG DS TAB PO SCH (21:36)
[2020-06-21] VITALS: BP 97/52
[2020-06-21 04:00] VITALS: BP 115/72
[2020-06-21] MEDS: SLF 3 ML SYR IV SCH ×3 (06:32→21:00)
[2020-06-21 06:39] LABS: HEMATOCRIT 31.9 % (36.0-47.0); HEMOGLOBIN 9.9 g/dl (12.0-15.5); MEAN CORPUSCULAR HEMOGLOBIN 26.1 pg (27.0-33.0); MEAN CORPUSCULAR VOLUME 83.9 fl (80.0-96.0); PLATELET COUNT, AUTOMATED 104 10^3/uL (150-450); WHITE BLOOD COUNT 6.6 10^3/uL (4.0-10.0)
[2020-06-21 07:04] LABS: CALCIUM LEVEL 8.7 MG/DL (8.8-10.2); CREATININE FOR GFR 1.03 MG/DL (0.55-1.30); GLOMERULAR FILTRATION RATE 55.9 (>39); POTASSIUM SERUM 3.7 MEQ/L (3.5-5.1)
[2020-06-21 08:00] VITALS: BP 116/56
[2020-06-21] MEDS: BACTRIM 160MG/800MG DS TAB PO SCH ×2 (09:25→21:00)
[2020-06-21] MEDS: FLUoxetine 20 MG CAP PO SCH (09:25)
[2020-06-21] MEDS: POTASSIUM CHLORIDE 10 MEQ SR TABLET PO SCH (09:26)
[2020-06-21] MEDS: TORSEMIDE 10 MG TABLET PO SCH (09:26)
[2020-06-21] MEDS: LEVOTHYROXINE 88MCG TABLET (0.088 MG) PO SCH (09:26)
[2020-06-21 12:00] VITALS: BP 113/57
[2020-06-21 16:00] VITALS: BP 112/73
[2020-06-21] MEDS: HEPARIN DRIP 25,000 UNITS in IV 1 EA IV SCH (17:11)
--- NOTE | 2020-06-21 19:34 | IPNPDOC ---
Subjective Date Seen The patient was seen on 06/21/20. Subjective Chief Complaint/HPI Mrs. Guerra is a 74 year old female with liver cancer diagnosed at [facility] in February 2020 who presents with pleuritic chest pain and reported green drainage under right breast. Today still feel fatigued and lightheaded. I re- examined the patch underneath the right breast. There is no signs of drainage, appears to have healed over. There was a culture that was taken in that area that grew a few coryneform bacteria, but this may just be normal michael. She is improving with Bactrim for the cellulitis of the left leg. Physical therapy worked with the patient. Anticipate possible discharge tomorrow. Objective Physical Examination General Exam: Positive: Cooperative Eye Exam: Negative: Sclera icteric Neck Exam: Positive: Supple Chest Exam: Positive: Clear to auscultation; Negative: Rales, Rhonchi, Wheezing Heart Exam: Positive: Rate Normal, Regular Rhythm Abdomen Exam: Positive: Normal bowel sounds, Soft; Negative: Tenderness Extremity Exam: Positive: Edema (left leg ) Assessment /Plan Assessment Patient is a 74 year old female with liver cancer diagnosed at [facility] in February 2020 who presents with pleuritic chest pain and reported green drainage under right breast. She has failed outpatient therapy with Lovenox. She is complicated by anemia and low platelet count. Hematology/Oncology consulted. Recommendations appreciated. Otherwise, spoke with Vascular surgery. No TPA at this time, recommending elevation of leg and outpatient follow up in 3 months for left leg DVT. Spoke with IR about liver necrotic mass. No drainage. Received documents from [facility]. 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 She was started on gemcitabine and cisplatin at [facility]. Dr. Garcia is aware of this and would like to see her in her clinic after discharge. Otherwise she has been improving. Hemoglobin remained stable and platelets are trending upwards. Patient feels uncomfortable going home and feels safer here. Physical therapy worked with patient. May need one more day of PT. Possible discharge home tomorrow with home health services and home PT. Plan/VTE VTE Prophylaxis Ordered?: Yes Plan 1. Failed outpatient therapy for VTE -Per son, patient has been compliant with Lovenox 80mg subq qHS -Currently on heparin drip -Monitoring platelet count and anemia -Spoke with heme/onc. To continue with Lovenox 80mg subq qHS on discharge 2. 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 Anemia -Hemoglobin dropped to a low of 6.2 -Hemolysis vs blood loss -Transfused 2u pRBC and responded appropriately -Monitor CBC 4. Thrombocytopenia -Heme/onc consulted, recommendations appreciated -If platelets drop below 50, will need to contact Heme/Onc about stopping the heparin drip -Platelets trending upwards 5. Necrotic liver mass -Spoke with IR, no drainage here -Heme/onc consulted, recommendations appreciated 6. Left leg swelling -DVT vs cellulitis -On heparin drip -On Bactrim 7. Obesity -BMI of 37.3 8. DVT ppx -On heparin drip Disposition: If remains stable and does well with PT, possible discharge tomorrow with Lovenox and Bactrim DS VS, I&O, 24H, Fishbone Vital Signs/I&O Vital Signs Date Time Temp Pulse Resp B/P (MAP) Pulse Ox O2 Delivery O2 Flow Rate FiO2 06/21/20 16:00 97.4 76 7 112/73 (86) 96 Room Air I&O- Last 24 Hours up to 6 AM 06/21/20 06:00 Intake Total 743 ml Output Total 550 ml Balance 193 ml Laboratory Data 24H LABS Laboratory Tests 2 06/21/20 06:17: Nucleated Red Blood Cells % (auto) 0.3H, Activated Partial Thromboplast Time 68.0H, Anion Gap 8, Glomerular Filtration Rate 55.9, Calcium Level 8.7L CBC/BMP Laboratory Tests 06/21/20 06:17 Microbiology Microbiology 06/18/20 Gram Stain - Final, Complete 06/18/20 Wound Culture - Final, Complete Corynebacterium Species MILI SHAIKH DO Jun 21, 2020 19:34
[2020-06-21 20:00] VITALS: BP 96/50
[2020-06-22] VITALS: BP 94/52
[2020-06-22 04:00] VITALS: BP 103/67
[2020-06-22] MEDS: SLF 3 ML SYR IV SCH ×3 (05:00→22:00)
[2020-06-22 06:27] LABS: HEMOGLOBIN 9.5 g/dl (12.0-15.5); MEAN CORPUSCULAR HEMOGLOBIN 26.2 pg (27.0-33.0); MEAN CORPUSCULAR HGB CONC 30.6 g/dl (32.0-36.5); MEAN CORPUSCULAR VOLUME 85.4 fl (80.0-96.0); PLATELET COUNT, AUTOMATED 145 10^3/uL (150-450); RED BLOOD COUNT 3.63 10^6/uL (4.00-5.40)
[2020-06-22 07:09] LABS: CREATININE FOR GFR 1.13 MG/DL (0.55-1.30); GLOMERULAR FILTRATION RATE 50.2 (>39); POTASSIUM SERUM 4.7 MEQ/L (3.5-5.1)
[2020-06-22 07:55] VITALS: BP 112/56
[2020-06-22] MEDS: ONDANSETRON 4 MG TAB PO PRN (08:00)
[2020-06-22] MEDS: fentaNYL 25 MCG/HR PATCH TD SCH (10:22)
[2020-06-22] MEDS: FLUoxetine 20 MG CAP PO SCH (10:22)
[2020-06-22] MEDS: BACTRIM 160MG/800MG DS TAB PO SCH ×2 (10:22→20:56)
[2020-06-22] MEDS: POTASSIUM CHLORIDE 10 MEQ SR TABLET PO SCH (10:22)
[2020-06-22] MEDS: LEVOTHYROXINE 88MCG TABLET (0.088 MG) PO SCH (10:22)
[2020-06-22] MEDS: TORSEMIDE 10 MG TABLET PO SCH (10:23)
[2020-06-22 11:49] VITALS: BP 101/51
--- NOTE | 2020-06-22 15:07 | IPNPDOC ---
Subjective Date Seen The patient was seen on 06/22/20. Subjective Chief Complaint/HPI Mrs. Guerra is a 74 year old female with liver cancer diagnosed at [facility] and [facility] in February 2020 who presents with pleuritic chest pain and reported green drainage under right breast. This morning, she was feeling weak and nauseous. Denies chest pain or dyspnea. Otherwise, he discuss transitioning from heparin drip to Lovenox tonight. Objective Physical Examination General Exam: Positive: Cooperative Eye Exam: Negative: Sclera icteric Neck Exam: Positive: Supple Chest Exam: Positive: Clear to auscultation; Negative: Rales, Rhonchi, Wheezing Heart Exam: Positive: Rate Normal, Regular Rhythm Abdomen Exam: Positive: Normal bowel sounds, Soft; Negative: Tenderness Extremity Exam: Positive: Edema (left leg ) Psych Exam: Positive: Anxiety Assessment /Plan Assessment Patient is a 74 year old female with liver cancer diagnosed at [facility] and [facility] in February 2020 who presents with pleuritic chest pain and reported green drainage under right breast. She has failed outpatient therapy with Lovenox. She is complicated by anemia and low platelet count. Hematology/Oncology consulted. Recommendations appreciated. Otherwise, spoke with Vascular surgery. No TPA at this time, recommending elevation of leg and outpatient follow up in 3 months for left leg DVT. Spoke with IR about liver necrotic mass. No drainage. Received documents from [facility]. 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 She was started on gemcitabine and cisplatin at [facility]. Dr. Garcia is aware of this and would like to see her in her clinic after discharge. Otherwise she has been improving. Hemoglobin remained stable and platelets are trending upwards. We will transition from heparin drip to Lovenox tonight in anticipation of discharge tomorrow morning. Plan/VTE VTE Prophylaxis Ordered?: Yes Plan 1. Failed outpatient therapy for VTE -Per son, patient has been compliant with Lovenox 80mg subq qHS -Currently on heparin drip, but transitioning to Lovenox tonight -Monitoring platelet count and anemia -Spoke with heme/onc. To continue with Lovenox 80mg subq qHS on discharge 2. 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 Anemia -Hemoglobin dropped to a low of 6.2 -Hemolysis vs blood loss -Transfused 2u pRBC and responded appropriately -Monitor CBC 4. Thrombocytopenia -Heme/onc consulted, recommendations appreciated -If platelets drop below 50, will need to contact Heme/Onc about stopping the heparin drip -Platelets trending upwards 5. Necrotic liver mass -Spoke with IR, no drainage here -Heme/onc consulted, recommendations appreciated 6. Left leg swelling -DVT vs cellulitis -On heparin drip -On Bactrim 7. Obesity -BMI of 37.3 8. DVT ppx -On heparin drip Disposition: Anticipate discharge tomorrow morning with Lovenox and Bactrim DS. I contacted son, and he is aware and making arrangements VS, I&O, 24H, Fishbone Vital Signs/I&O Vital Signs Date Time Temp Pulse Resp B/P (MAP) Pulse Ox O2 Delivery O2 Flow Rate FiO2 06/22/20 11:49 97.3 72 18 101/51 (68) 95 Room Air I&O- Last 24 Hours up to 6 AM 06/22/20 06:00 Intake Total 360 ml Balance 360 ml Laboratory Data 24H LABS Laboratory Tests 2 06/22/20 06:11: Nucleated Red Blood Cells % (auto) 0.0, Activated Partial Thromboplast Time 73.3H, Anion Gap 10, Glomerular Filtration Rate 50.2, Calcium Level 9.0 CBC/BMP Laboratory Tests 06/22/20 06:11 Microbiology Microbiology 06/18/20 Gram Stain - Final, Complete 06/18/20 Wound Culture - Final, Complete Corynebacterium Species MILI SHAIKH DO Jun 22, 2020 15:07
[2020-06-22] MEDS: HEPARIN DRIP 25,000 UNITS in IV 1 EA IV SCH (15:53)
[2020-06-22 20:00] VITALS: BP 100/51
[2020-06-22] MEDS ORDERED: ENOXAPARIN 80MG/0.8ML SYRINGE (J1650 PER 10MG) SC SCH (21:00)
[2020-06-23] VITALS: BP 109/56
[2020-06-23 04:00] VITALS: BP 111/57
[2020-06-23] MEDS: SLF 3 ML SYR IV SCH (05:29)
[2020-06-23 05:44] LABS: HEMATOCRIT 29.1 % (36.0-47.0); MEAN CORPUSCULAR HEMOGLOBIN 26.3 pg (27.0-33.0); MEAN CORPUSCULAR HGB CONC 30.9 g/dl (32.0-36.5); MEAN CORPUSCULAR VOLUME 85.1 fl (80.0-96.0); PLATELET COUNT, AUTOMATED 188 10^3/uL (150-450); RED BLOOD COUNT 3.42 10^6/uL (4.00-5.40)
[2020-06-23 06:13] LABS: CALCIUM LEVEL 8.9 MG/DL (8.8-10.2); CREATININE FOR GFR 1.21 MG/DL (0.55-1.30); GLOMERULAR FILTRATION RATE 46.4 (>39); POTASSIUM SERUM 4.7 MEQ/L (3.5-5.1)
[2020-06-23] MEDS: ONDANSETRON 4 MG TAB PO PRN (07:11)
[2020-06-23 08:00] VITALS: BP 97/49
[2020-06-23] MEDS: LEVOTHYROXINE 88MCG TABLET (0.088 MG) PO SCH (08:22)
[2020-06-23] MEDS: POTASSIUM CHLORIDE 10 MEQ SR TABLET PO SCH (08:22)
[2020-06-23] MEDS: FLUoxetine 20 MG CAP PO SCH (08:23)
[2020-06-23] MEDS: BACTRIM 160MG/800MG DS TAB PO SCH (08:23)
[2020-06-23] MEDS: TORSEMIDE 10 MG TABLET PO SCH (08:34)
[2020-06-23] MEDS ORDERED: SULF1TAB93 PO (09:39)
[2020-06-23] MEDS ORDERED: DOXY-350 PO (09:45)
--- NOTE | 2020-06-23 23:00 | DS.PDOC ---
Discharge Summary General Date of Admission Jun 18, 2020 at 19:34 Date of Discharge Jun 23, 2020 Discharge Summary PROCEDURES PERFORMED DURING STAY: None ADMITTING DIAGNOSES: 1. Failed outpatient therapy for VTE 2. New PE in RRL on CT imaging 3. Liver abscess vs mass 4. Normocytic hypochromic anemia 5. Acute thrombocytopenia 6. Obesity 7. Left leg cellulitis DISCHARGE DIAGNOSES: 1. Failed outpatient therapy for VTE 2. New PE in RRL on CT imaging 3. 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 Normocytic hypochromic anemia 5. Acute thrombocytopenia 6. Obesity 7. Left leg cellulitis COMPLICATIONS/CHIEF COMPLAINT: Weakness. HISTORY OF PRESENT ILLNESS: Mrs. Guerra is a 74 year old female with liver cancer and VTE in January 2020 on Lovenox who presents to the ED for a draining "abscess" under her right breast and chest pain. She reports that there is green drainage from under the right breast. There is also associated chest pain on the right side that is a sharp 7/10 pain in the same area of drainage. In addition, she also has a left sided chest pain. Of note, she was here in Jan with what was thought to be liver abscess, but was found to be liver mass. There was very little to drain. Went to [facility] and was diagnosed with liver cancer. Otherwise, she was also here in Jan 2020 for VTE. She was found to have a new right lower lobe pneumonia despite consistently taking her Lovenox. US of her legs bilaterally also found DVTs. Her left lower leg was more swollen, erythematous, and tender than the right and is suspicious for cellulitis. Patient will be admitted for "abscess" under her right breast and VTE that failed outpatient therapy. HOSPITAL COURSE: Patient's left leg has an acute DVT filling up the entire left common femoral vein and profundal vein. She was able to move her left leg and her left foot was warm. I reached out to vascular surgery about TPA. Due to the liver "abscess" no TPA at this time. Recommended elevation and anticoagulation. I looked at the area where she reported drainage. There was a bandage covering the area. There was a surgical scar, but it has been long healed over. There is no eschar or drainage. Unclear how they were able to obtain a wound culture but most likely just skin michael/contaminant. I spoke with IR about drainage of possible abscess vs necrotic mass. IR said it was not an abscess, but mass, and they do not drain necrotic mass. IR recommended chemotherapy Otherwise, I spoke with heme/onc, Dr. Garcia. Due to the thrombocytopenia of 52, we had to monitor for further decline while on heparin drip. While on the antibiotic for the left leg cellulins, the platelet count started to rise and eventually reach 188 on discharge. I did reach out to the son, and he confirmed patient's compliance with Lovenox. Dr. Garcia recommended continuing on the same Lovenox dose at home that she was originally taking. Otherwise we were able to obtain records for [facility] regarding her liver cancer. 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 She was given a dose of gemcitabine and cisplatin. She wished to continue receiving treatments with Dr. Garcia here in [place]. Today, she feels better. Her son has been prepared to continuous dryout operator her at home and supple 24/ care. She has home health nurse and home PT. She was discharged today. DISCHARGE MEDICATIONS: Please see below. ALLERGIES: Please see below. PHYSICAL EXAMINATION ON DISCHARGE: VITAL SIGNS: Please see below. GENERAL: Comfortable, in no apparent distress HEENT: Head normocephalic, atraumatic, EOMI, sclera clear NECK: Supple CARDIOVASCULAR EXAMINATION: Regular rate and rhythm RESPIRATORY EXAMINATION: Lungs clear to auscultation bilaterally ABDOMINAL EXAMINATION: Soft, non-tender, normal bowel sounds EXTREMITIES: Left worsen than right pitting edema SKIN: Warm and dry, Under right breast is a well heal over surgical scar NEUROLOGICAL EXAMINATION: CN 3-12 grossly intact PSYCHIATRIC EXAMINATION: Anxious LABORATORY DATA: Please see below. IMAGING: Radiologist interpretations US abdomen 1. 13.6 cm complex anechoic collection versus necrotic mass in the liver corresponding with recent CT findings. No abnormality noted in the abdominal wall. 2. Cholelithiasis with dilated slightly thick walled gallbladder. CTA chest 1. One new small pulmonary embolism in the right lower lobe. Other right lower lobe emboli seen on the prior exam are no longer present. Stable chronic nonocclusive pulmonary embolism in the left lower lobe. No central pulmonary embolism. 2. Significant interval increase in size of the largest liver mass. Other smaller masses in the liver have increased in size and number. 3. Persistent severe dilation of the gallbladder with numerous calculi and impacted stone in the gallbladder neck. Left Leg US 1. There is hypoechoic acute deep venous thrombosis filling the entire left common femoral vein and also the profundal vein. 2. There is thrombus along the margin the proximal, mid and distal superficial femoral vein. Also there is thrombus within half of the popliteal vein. Right Leg US Study is positive for echogenic non occlusive thrombus along the wall of the proximal femoral vein and common femoral vein segment. This is less extensive than on the prior ultrasound from April 29, 2020 and is consistent with subacute or chronic thrombus.. PROGNOSIS: Fair ACTIVITY: As tolerated. DIET: As tolerated DISCHARGE PLAN: Home with home services DISPOSITION: Home Health Service. DISCHARGE INSTRUCTIONS: 1. Follow up with your PCP within 1 week 2. Follow up with your Onc/Grey Goods Examiner within 1 week 3. Follow up with vascular surgery (Dr. Urbina) in 3 months for re- evaluation of DVT DISCHARGE CONDITION: Stable. Total time spent on discharge planning, discharge summary, and medication reconciliation: 75 minutes. Vital Signs/I&Os Vital Signs Date Time Temp Pulse Resp B/P (MAP) Pulse Ox O2 Delivery O2 Flow Rate FiO2 06/23/20 08:00 98.6 74 16 97/49 (65) 98 Room Air I&O- Last 24 Hours up to 6 AM 06/23/20 06:00 Intake Total 480 ml Output Total 100 ml Balance 380 ml Laboratory Data Labs 24H Laboratory Tests 2 06/23/20 05:28: Nucleated Red Blood Cells % (auto) 0.0, Activated Partial Thromboplast Time 38.9H, Anion Gap 6L, Glomerular Filtration Rate 46.4, Calcium Level 8.9 CBC/BMP Laboratory Tests 06/23/20 05:28 Microbiology Microbiology 06/18/20 Gram Stain - Final, Complete 06/18/20 Wound Culture - Final, Complete Corynebacterium Species Discharge Medications Scheduled Doxycycline Monohydrate (Doxycycline) 100 Mg Capsule, 100 MG PO BID Enoxaparin Sodium (Lovenox) 80 Mg/0.8 Ml Syringe, 80 MG SC QHS, (Reported) Fentanyl (Duragesic) 25 Mcg Patch.td72, 25 MCG TD Q3RD, (Reported) APPLIED TO LEFT SIDE OF CHEST Fluoxetine Hcl (Fluoxetine HCl) 20 Mg Cap, 20 MG PO DAILY, (Reported) Levothyroxine Sodium (Levothyroxine Sodium) 88 Mcg Tablet, 88 MCG PO DAILY, (Reported) Potassium Chloride (Potassium Chloride) 10 Meq Cap, 10 MEQ PO DAILY, (Reported) Torsemide (Torsemide) 10 Mg Tablet, 10 MG PO DAILY, (Reported) Scheduled PRN Acetaminophen (Tylenol Extra Strength) 500 Mg Tablet, 1,000 MG PO TID PRN for PAIN, (Reported) Albuterol Sulfate (Proair Hfa) 8.5 Gm Hfa.aer.ad, 2 PUFF INH Q4-6HP PRN for whe ezing Morphine Sulfate (Morphine Sulfate ER) 15 Mg Tablet.er, 1 TAB PO Q6HP PRN for pain, (Reported) Ondansetron HCl (Ondansetron HCl) 8 Mg Tablet, 8 MG PO Q12H PRN for NAUSEA OR VOMITING, (Reported) Prochlorperazine Maleate (Prochlorperazine Maleate) 10 Mg Tablet, 10 MG PO Q6H PRN for NAUSEA OR VOMITING, (Reported) for use during chemo Allergies Coded Allergies: No Known Drug Allergies (Verified Allergy, Unknown, 02/27/19) MILI SHAIKH DO Jun 23, 2020 23:00
== END 2020-06-23 11:29 | disposition home health service (06) | DRG 299 ==
LOC: EDBD 14:44 → M ED 14:44 → M ED INP 19:34 → M MSPAV 23:58 → M PCU 06-19 03:23
PROVIDERS: ADMIT Internal Medicine; ATTEND Internal Medicine
PROC: 30233N1 Transfusion of Nonautologous Red Blood Cells into Peripheral Vein, Percutaneous Approach (ICD-10-PCS; principal; 2020-06-19)
DX: I82.412 Acute embolism and thrombosis of left femoral vein (principal); I26.99 Other pulmonary embolism without acute cor pulmonale; K86.2 Cyst of pancreas; K51.90 Ulcerative colitis, unspecified, without complications; C22.8 Malignant neoplasm of liver, primary, unspecified as to type; L03.116 Cellulitis of left lower limb; C79.31 Secondary malignant neoplasm of brain; D50.9 Iron deficiency anemia, unspecified; N61.1 Abscess of the breast and nipple; E89.0 Postprocedural hypothyroidism; D69.6 Thrombocytopenia, unspecified; Z66 Do not resuscitate; F41.9 Anxiety disorder, unspecified; F32.9 Major depressive disorder, single episode, unspecified; Z96.653 Presence of artificial knee joint, bilateral; K80.20 Calculus of gallbladder without cholecystitis without obstruction; Z86.718 Personal history of other venous thrombosis and embolism; Z87.891 Personal history of nicotine dependence; Z86.16 Personal history of COVID-19; E87.6 Hypokalemia; E66.9 Obesity, unspecified; Z68.37 Body mass index [BMI] 37.0-37.9, adult; Z79.899 Other long term (current) drug therapy

== ENCOUNTER → 2020-07-08 | Outpatient (CLI) | payer MEDICARE, OTHER ==
[~2020-07-08] MED LIST changes: +DOXY-350 PO; +MORP-69 PO; +PEGF6SYR SQ; +SULF1TAB93 PO
--- NOTE | 2020-07-09 08:42 | RADONC.CN ---
Radiation Oncology Hx/Consult Radiation Oncology Consult Date of Service: Jul 09, 2020 Pt Identifier Munira Guerra is a 74 year old female former smoker with [id number] intrahepatic cholangiocarcinoma and a question of brain metastases on MRI from 05/17/20. She has received 2 cycles of gemzar/cisplatin chemotherapy and is seen for consideration of additional imaging versus RT. Diagnosis/Treatment History Oncologic History /Presented in Fall 2019 with suspected liver abscesses abdominal pain and distension. Due to persistent symptoms she was transferred to [facility] for liver biopsy which was performed on 05/15/20 and returned adenocarcinoma consistent with cholangiocarcinoma clinically. She had a CT abdomen with contrast on 05/16/20 which revealed extensive BL liver lesions (the largest is 11 x 10 cm) as well as numerous venous thrombi. She had no evidence of regional adenopathy on this study. She had an MRI head on 05/17/21 which showed small old infarcts as well as several punctate foci of enhancement, (4) in the right sup erior frontal lobe, (1) left posterior parietal, and (1) right cerebellar. These were read as indeterminate. The technical quality of the MRI was excellent. She had a repeat CT abdomen and pelvis on 05/31/20 which re-demonstrated the liver masses as well as showing a new metastatic looking soft tissue focus in the right anterior abdominal wall about the 5th and 6th ribs, which may represent seeding along the needle tract from her liver biopsy. She received cycle 1 of gem/cis at [facility] on 06/06/20. She was admitted to [facility] for weakness and progression of DVT/new PE on 06/18/20. She transferred oncologic care to [facility] and is continuing chemotherapy with Dr. Worley. Recent data: Item Value Date Time Carcinoembryonic Antigen 21.9 NG/ML H 07/01/20 1232 CA 19-9 Antigen 05846.0 U/ML H 07/01/20 1232 Interval History Munira is here with her son. She recently received cycle 2 of gem/cis on 07/07/20. She feels overall better since starting chemotherapy. Her abdominal pain has markedly lessened. She still has extensive swelling in her legs BL which are sore, but this too is improving. Her appetite is good, she is eating without significant nausea. She is fatigued overall. She reports she has had a dull headache for some time. Predominantly retro-orbital BL, no photophobia or nausea/vomiting. She reports no focal weakness or sensory changes. Past Medical History: PAF DVT PE Hypothyroid Past Surgical History: Subtotoal colectomy Thyroidectomy Tonsillectomy Family History: No family history of cancer Social History: 20+ pack year former smoker quit ~1999 Does not drink alcohol Allergies / Meds Allergies: Coded Allergies: No Known Drug Allergies (Verified Allergy, Unknown, 02/27/19) Home Meds Active Scripts Pegfilgrastim-Bmez (Ziextenzo) 6 Mg/0.6 Ml Syringe, 6 MG SQ as directed, #7 SYRINGE Inject on day 9 chemotherapy. Prov:GAY WORLEY MD 07/03/20 Albuterol Sulfate (Proair Hfa) 8.5 Gm Hfa.aer.ad, 2 PUFF INH Q4-6HP PRN for wheezing for 21 Days, #1 INHALER Prov:VANGIE CHISHOLM MD 06/02/20 Reported Medications Morphine Sulfate (Morphine Sulfate ER) 15 Mg Tablet.er, 1 TAB PO Q6HP PRN for pain MDD 2 Tablet(s) for 5 Days, #10 TAB 06/18/20 Torsemide (Torsemide) 10 Mg Tablet, 10 MG PO DAILY 06/18/20 Prochlorperazine Maleate (Prochlorperazine Maleate) 10 Mg Tablet, 10 MG PO Q6H PRN for NAUSEA OR VOMITING, #30 TAB 3 Refills for use during chemo 05/31/20 Enoxaparin Sodium (Lovenox) 80 Mg/0.8 Ml Syringe, 80 MG SC QHS, SYRINGE 05/31/20 Levothyroxine Sodium (LEVOTHYROXINE SODIUM) 88 Mcg Tablet, 88 MCG PO DAILY, TAB 05/31/20 Ondansetron HCl (Ondansetron HCl) 8 Mg Tablet, 8 MG PO Q12H PRN for NAUSEA OR VOMITING, #30 TAB 3 Refills 05/31/20 Fentanyl (Duragesic) 25 Mcg Patch.td72, 25 MCG TD Q3RD APPLIED TO LEFT SIDE OF CHEST 05/31/20 Acetaminophen (Tylenol Extra Strength) 500 Mg Tablet, 1000 MG PO TID PRN for PAIN, TAB 03/23/19 Potassium Chloride (Potassium Chloride) 10 Meq Cap, 10 MEQ PO DAILY, CAP 02/10/18 Fluoxetine Hcl (Fluoxetine HCl) 20 Mg Cap, 20 MG PO DAILY, CAP 12/01/14 Review of Systems Constitutional: Reports: Fatigue; Denies: Chills, Fever, Night Sweats Eyes: Denies: Pain, Vision change HEENT: Denies: Head Aches, Dysphagia, Sore Throat Skin: Denies: Rash, Lesions, Bruising Pulmonary: Denies: Dyspnea, Cough Cardiovascular: Reports: Edema; Denies: Chest Pain, Palpitations Gastrointestinal: Denies: Nausea, Vomiting, Abdominal Pain, Diarrhea Genitourinary: Denies: Dysuria, Frequency, Incontinence Hematologic: Denies: Bruising, Petecchia, Enlarged Lymph Nodes Musculoskeletal: Denies: Neck pain, Back pain Neurological: Denies: Weakness, Numbness, Incoordination Psych: Reports: Mood Normal; Denies: Memory Issues, Thoughts of Self Harm Vital Signs Ht 58" Wt 180 lbs BMI 37 T 98 P 98 RR 20 BP 112/76 O2 97% Pain 0 Fatigue 1 General Exam: Positive: Alert, Cooperative, No Acute Distress Eye Exam: Positive: PERRLA, EOMI ENT EXAM: Positive: Mucous membr. moist/pink, Pharynx Normal (No sub-frenular jaundice) Neck Exam: Negative: Thyromegaly, Lymphadenopathy Chest Exam: Positive: Normal air movement; Negative: Rales, Rhonchi, Wheezing Heart Exam: Positive: Rate Normal, Regular Rhythm Abdomen Exam: Positive: Soft, Tenderness (RUQ tenderness on exam. No masses appreciated); Negative: Mass Extremity Exam: Positive: Edema (3+ LE edema BL); Negative: Tenderness Skin Exam: Positive: Nl turgor and temperature; Negative: Rash Neuro Exam: Positive: Normal Gait, Normal Speech, Cranial Nerves 3-12 NL; Negative: Other (No tremor or liver flap. No dysmetria. Rapid alternating movements intact) Psych Exam: Positive: Mental status NL, Mood NL, Memory Intact Diagnostic and Laboratory Diagnostic Review Radiologic images, relevant labs and pathology reports were personally reviewed and discussed with Ms. Guerra. Assessment and Plan Impression Ms. Guerra is a 74 year old female former smoker with a history of [id number] intrahepatic cholangiocarcinoma and a question of brain metastases on MRI from 05/17/20. She has received 2 cycles of gemzar/cisplatin chemotherapy and is seen for consideration of additional imaging versus RT. Stage Incomplete [id number] intrahepatic cholangiocarcinoma Performance Status ECOG 1 Plan We had an extensive discussion with Ms. Guerra regarding the diagnosis at hand and available therapeutic options. Clinically she is feeling and doing better since starting chemotherapy, this is reassuring. She has no focal neurologic deficits on exam. Her BERGER is non- specific. With respect to her MRI, it is of excellent technical quality and neither the radiologist nor I on thorough review am convinced she has brain metastases. The foci in question are all punctate, and may be a result of the enhanced contrast resolution present on SPACE T1 sequences, correspondingly there were no foci detectable on MPRAGE sequence. She has an MRA on 07/10/20, this may be helpful to resolve any outstanding vascular/prior CVA questions lingering from the previous MRI, it may also detect enlargement of any of the enhancing foci in question which would be conclusive for metastases. As she is asymptomatic from a neurological standpoint, if the MRA is negative, then I will order a 2-3 month surveillance MRI with appropriate thin-slice T1+C sequence for further evaluation. The patient and her son were happy with this plan. With respect to the intrahepatic disease, she is having less abdominal pain which is a sign chemotherapy is working. She has a pending PET-CT which. At this point she seems to have a right anterior abdominal wall lesion on the 05/31/20 CT abdomen, which was not present on her initial CT abdomen from 05/16/20 and which looks like direct extension from the largest intrahepatic lesion. I suspect this is tumor seeding along her liver biopsy tract, this would make her T4 per the AJCC 8th staging (direct extension). If she has an incomplete response to chemotherapy and lingering symptoms, we could consider liver directed therapies in her case, either external beam radiation (which would be purely palliative given the size and extent of the lesions) versus TACE, which Dr. Maguire could comment on. I suggested we defer consideration of these treatments until after Dr. Worley's initial chemotherapy plan is complete and restaging is done. Her case would be one that would benefit from multidisciplinary discussion at that time. I briefly discussed that if she is proven to have brain metastases, few in number, then the preferred treatment would be fractionated SRS. We can revisit this in more detail if needed. After discussing the risks, benefits and alternatives to radiation therapy, Ms. Guerra was amenable to additional imaging at this time. All questions were answered to the patient's satisfaction. We instructed the patient that if there were any questions,concerns or changes in clinical status in the interim to contact us. I will review her MRA on 07/10/20 and call her to discuss results and facilitate next steps. Recommendations Agree with PET-CT, MRA Will follow results of MRA on 07/10/20 and call patient to discuss If no concerning changes on MRA, then will order MRI head and follow up in 2 months time Multidisciplinary consideration of liver-directed therapies post-chemotherapy completion/restaging Billing Statement Total time of [36] minutes was spent preparing for the visit [4], obtaining HPI [4], examining the patient [3], reviewing diagnostic tests [10], discussing management options [4], coordinating care [2], and writing this note [9]. MAGI RANGEL MD Jul 09, 2020 08:42
== END ==
LOC: M ONCR 14:21
PROVIDERS: ATTEND General Practice
DX: C79.31 Secondary malignant neoplasm of brain (principal)

== ENCOUNTER → 2020-07-10 | Outpatient (CLI) | payer MEDICARE, OTHER ==
--- NOTE | 2020-07-10 08:58 | REP ---
INDICATION: BRAIN METS, CEREBRAL INFARCTION. Metastatic cholangiocarcinoma. COMPARISON: Comparison MR study 17 May 2020.. TECHNIQUE: 3-D [id number] MR angiography of the brain is acquired in the usual fashion and maximal intensity projection images were generated in rotational format about the vertical and horizontal axes. In addition, source axial T1-weighted images are viewed in cine mode. FINDINGS: The distal vertebral arteries are patent and co-dominant. Basilar artery is a little tortuous but widely patent. The posterior cerebral and superior cerebellar vessels are normal and symmetric. The left posterior vertebral artery takes a persistent origin from the anterior circulation. This is normal variant. The distal internal carotid arteries are unremarkable. Anterior and middle cerebral arteries appear intact. There is no visible heller aneurysm or arteriovenous malformation. IMPRESSION: Unremarkable MR angiography the brain. <Electronically signed by Sonny Rico > 07/10/20 [id number]
== END ==
LOC: M RAD 07:10
PROVIDERS: ATTEND Internal Medicine Medical Oncology
DX: C22.1 Intrahepatic bile duct carcinoma (principal); D43.1 Neoplasm of uncertain behavior of brain, infratentorial

== ENCOUNTER → 2020-07-11 | Outpatient (CLI) | payer MEDICARE, OTHER ==
[~2020-07-11] MED LIST changes: +FLUO40CA PO; +LIDOCAINE 1% MDV 20ML VIAL As Ordered ONE; +MIDAZOLAM INJ 2MG/2ML VIAL (J2250 PER 1MG) As Ordered ONE; +SULF1TAB30 PO; +ceFAZolin 2 GM/D5W 50 ML IV BAG (J0690 PER 500MG) As Ordered ONE; +diphenhydrAMINE 50MG/ML VIAL (J1200) As Ordered ONE; +fentaNYL 100 MCG/2 ML INJECTION (J3010) As Ordered ONE
--- NOTE | 2020-07-11 08:48 | IRHP ---
[facility] IR Pre-Procedure H & P General Date of Service: Jul 11, 2020 Procedure: Same Day Surgery Interval History and Physical I have seen the patient and reviewed last H & P performed within 30 days. There is no significant interval change. History of Present Illness Chief Complaint The patient is a 74-year-old female admitted with a reason for visit of Cholangiocarcinoma. PRE-PROCEDURE DIAGNOSIS: Cholangiocarcinoma HEART: Normal rate. LUNGS: Normal breathing at rest. ASA Classification ASA Classification: III-Severe systemic dis. Mallampati Score: II NPO: Yes Problems with prior sedation: No Obstructive Sleep Apnea: No Plan moderate sedation Allergies Coded Allergies: No Known Drug Allergies (Verified Allergy, Unknown, 02/27/19) Home Medications Scheduled Enoxaparin Sodium (Lovenox), 80 MG SC QHS, (Reported) Fentanyl (Duragesic), 25 MCG TD Q3RD, (Reported) Fluoxetine Hcl (Fluoxetine HCl), 20 MG PO DAILY, (Reported) Levothyroxine Sodium (Levothyroxine Sodium), 88 MCG PO DAILY, (Reported) Pegfilgrastim-Bmez (Ziextenzo), 6 MG SQ as directed Potassium Chloride (Potassium Chloride), 10 MEQ PO DAILY, (Reported) Torsemide (Torsemide), 10 MG PO DAILY, (Reported) Scheduled PRN Acetaminophen (Tylenol Extra Strength), 1,000 MG PO TID PRN for PAIN, (Reported) Albuterol Sulfate (Proair Hfa), 2 PUFF INH Q4-6HP PRN for wheezing Morphine Sulfate (Morphine Sulfate ER), 1 TAB PO Q6HP PRN for pain, (Reported) Ondansetron HCl (Ondansetron HCl), 8 MG PO Q12H PRN for NAUSEA OR VOMITING, (Reported) Prochlorperazine Maleate (Prochlorperazine Maleate), 10 MG PO Q6H PRN for NAUSEA OR VOMITING, (Reported) VS, I&O, 24H, Fishbone Vital Signs/I&O Vital Signs Date Time Temp Pulse Resp B/P (MAP) Pulse Ox O2 Delivery O2 Flow Rate FiO2 07/11/20 07:39 97.2 97 18 98 Room Air STEFANO MCCOY MD Jul 11, 2020 08:48
--- NOTE | 2020-07-11 10:01 | POST-OPPD ---
Postoperative Procedure Note Date Of Procedure: Jul 11, 2020 Time Of Procedure: 09:58 IR Ultrasound and fluoroscopy guided port placement. IR Ultrasound of the neck. IR Moderate sedation. Clinical indication: Cholangiocarcinoma. Physician: Dr. Maguire. Procedure: The patient was advised of the benefits, risks, and alternatives of the procedure and informed consent was obtained. A time-out was performed with verification of the patient's name, MRN, site of procedure and type of procedure to be performed. The patient was positioned in the supine position on the angiographic table. The site was prepped and draped in the usual sterile fashion. Moderate sedation was performed by the physician including the presence of an independent trained RN who assisted and monitored the patient's level of co nsciousness and physiologic status. Following the administration of fentanyl and Versed , the physician spent 45 minutes of continuous face to face time with the patient. Ultrasound of the neck reveals a patent and compressible right internal jugular vein. A gaming manager radiograph reveals elevated right hemidiaphragm. The neck and anterior chest wall were anesthetized with lidocaine. The right internal jugular vein was accessed using a microintroducer needle under ultrasound guidance, via a lateral approach. An 018 wire was advanced into the superior vena cava, the needle was removed and a microsheath was placed. An Amplatz wire was then passed into the inferior vena cava. An incision at the internal jugular vein access site and anterior chest wall were made using a scalpel. An incision was made at the anterior chest wall. A small pocket was created using a combination of blunt and sharp dissection. A tunneling device was then used to pass the catheter from the pocket to the neck puncture site. An 8- [place]riot Ang[employer] Smart power port was then positioned in the pocket. The catheter was then measured and cut. The introducer sheath was exchanged for a peel-away sheath. The catheter was passed through the peel-away sheath into the internal jugular vein and the peel away sheath was removed. The port tip was positioned at the cavoatrial junction. The port was then accessed with a Issa needle. The port flushes and aspirates well. The puncture site in the neck was closed. The chest wall incision was then closed with 2-0 Vicryl and 4-0 Monocryl. Glue and Steri-Strips were applied. A sterile dressing was then applied. The patient tolerated the procedure well and was returned to the PRU in stable condition. Estimated blood loss: <5 ml. Complications: None. Conclusion: 1. Successful placement of an 8-Cypriot Angio dynamics Smart power port via the right internal jugular vein. The port is ready for immediate use. 2. Patient to follow up in IR clinic in 2 weeks. Thank you for this referral. STEFANO MAGUIRE MD Jul 11, 2020 10:01
[2020-07-11 11:00] VITALS: BP 110/56
== END ==
LOC: M IRPRO 07:29
PROVIDERS: ATTEND Radiology Diagnostic Radiology
DX: C22.1 Intrahepatic bile duct carcinoma (principal); Z79.890 Hormone replacement therapy; Z79.899 Other long term (current) drug therapy
CPT/HCPCS: 36561; 99152; 99153; C1769; C1788; C1894; J0690; J1200; J1642; J1644; J2250; J3010

== ENCOUNTER → 2020-07-14 | Outpatient (CLI) | payer MEDICARE, OTHER ==
[~2020-07-14] MED LIST changes: -FLUO40CA PO; -LIDOCAINE 1% MDV 20ML VIAL As Ordered ONE; -MIDAZOLAM INJ 2MG/2ML VIAL (J2250 PER 1MG) As Ordered ONE; -SULF1TAB30 PO; -ceFAZolin 2 GM/D5W 50 ML IV BAG (J0690 PER 500MG) As Ordered ONE; -diphenhydrAMINE 50MG/ML VIAL (J1200) As Ordered ONE; -fentaNYL 100 MCG/2 ML INJECTION (J3010) As Ordered ONE
--- NOTE | 2020-07-16 14:15 | REP ---
INDICATION: Other. Staging cholangiocarcinoma. 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 COMPARISON: Comparison CT study abdomen pelvis May 31, 2020. Comparison chest CT June 19, 2020. Comparison brain MRI study May 17, 2020.. TECHNIQUE: Fifty-seven minutes following the intravenous injection of a 14.08 mCi dose of F-18 FDG, three-dimensional PET scintigraphy is acquired from the skull base to the proximal thighs. Triplanar noncontrast CT scanning is acquired through the same anatomic range for attenuation correction, and image registration with scan parameters optimized to minimize radiation exposure to the patient. PET scintigraphy and CT datasets were fused and displayed on a workstation with multiplanar and projection display capability. FINDINGS: Head and neck soft tissues are unremarkable. No abnormal hypermetabolic uptake is seen in the chest. Only a small portion of the skull base is included in the scan field of view. The MRI study showed evidence of intracranial metastatic disease. There is a right lower anterior lateral chest wall lesion which is hypermetabolic. Maximum standard uptake value in this lesion is 10.13. There are multiple hypermetabolic liver masses. Many of these have central low-density areas consistent with necrosis. Most avid is in the superolateral aspect of the right lobe where maximum standard uptake value is 8.36. There is mildly hypermetabolic uptake in the periphery of the large left lobe cystic lesion. Maximum standard uptake value ranges to 5.7 in the periphery of this lesion. There is a small left lobe lesion with a hypermetabolic periphery, 5.37. There is a small lesion in the left lobe adjacent to the falciform ligament maximum SUV value 5.0. There is a small lesion posteriorly and inferiorly in the right lobe with maximum standard uptake value 7.12. The gallbladder is quite dilated and contains stones as before. No upper abdominal or retroperitoneal adenopathy is seen. No abnormal adrenal uptake. No other abnormal abdominal or pelvic hypermetabolic uptake is seen. No abnormal skeletal hypermetabolic uptake. IMPRESSION: Multifocal hypermetabolic uptake in multiple liver mass lesions. There is a right anterolateral costal margin chest wall mass lesion which is hypermetabolic. No other extrahepatic hypermetabolic site is appreciated. <Electronically signed by Sonny Rico > 07/16/20 1325
== END ==
LOC: M PLARAD 08:27
PROVIDERS: ATTEND Internal Medicine Medical Oncology
DX: D37.6 Neoplasm of uncertain behavior of liver, gallbladder and bile ducts (principal); C22.1 Intrahepatic bile duct carcinoma
CPT/HCPCS: 78815; A9552

== ENCOUNTER 2020-07-23 21:55 | Inpatient (IN) | payer MEDICARE, OTHER ==
[~2020-07-23] VITALS: Ht 147.3 cm; Wt 82.3 kg
[2020-07-23] MEDS ORDERED: NS 1,000 ML IV SCH (22:15)
[2020-07-23] MEDS ORDERED: ACETAMINOPHEN 325 MG TAB PO ONE (22:15)
[2020-07-23] MEDS ORDERED: ONDANSETRON 4MG/2ML VIAL IV ONE (22:15)
--- NOTE | 2020-07-23 22:26 | REPVR ---
PROCEDURE INFORMATION: Exam: XR Chest Exam date and time: 07/23/2020 10:15 PM Age: 74 years old Clinical indication: Other: Sepsis; Additional info: Sepsis/shock TECHNIQUE: Imaging protocol: XR of the chest Views: 1 view. COMPARISON: CR Chest, 1 view 05/31/2020 7:44 AM FINDINGS: Tubes, catheters and devices: Interval placement of a right Port-A-Cath through the internal jugular system with the tip in the proximal to mid superior vena cava. Lungs: The left lung is unchanged. Pleural spaces: Unremarkable. No pleural effusion. No pneumothorax. Heart/Mediastinum: The heart and mediastinum are unchanged. Diaphragm: Density overlying the right lung base is unchanged and is apparently elevated right hemidiaphragm. Bones/joints: Unremarkable. IMPRESSION: 1. Interval placement of a right Port-A-Cath through the internal jugular with the tip in the proximal to mid superior vena cava. No pneumothorax. 2. Otherwise stable chest. Electronically signed by: Arcenio Long On 07/23/2020 22:27:04 PM
[2020-07-23 22:55] LABS: HEMATOCRIT 30.9 % (36.0-47.0); HEMOGLOBIN 9.5 g/dl (12.0-15.5); MEAN CORPUSCULAR HEMOGLOBIN 26.8 pg (27.0-33.0); MEAN CORPUSCULAR HGB CONC 30.7 g/dl (32.0-36.5); MEAN CORPUSCULAR VOLUME 87.3 fl (80.0-96.0); RED BLOOD COUNT 3.54 10^6/uL (4.00-5.40)
[2020-07-23 23:04] LABS: INR 1.02; PROTHROMBIN TIME 13.6 SECONDS (12.5-14.3)
[2020-07-23 23:05] LABS: PARTIAL THROMBOPLASTIN TIME 28.2 SECONDS (24.2-38.5)
[2020-07-23 23:09] LABS: PLATELET COUNT, AUTOMATED 99 10^3/uL (150-450); WHITE BLOOD COUNT 20.7 10^3/uL (4.0-10.0)
[2020-07-23 23:18] LABS: EOSINOPHILS 2 % (0-3); LYMPHOCYTES 3 % (16-44); MONOCYTES 7 % (0-5); NEUTROPHILS 86 % (28-66); PLATELET ESTIMATE DECREASED (NORMAL)
[2020-07-23 23:19] LABS: ANISOCYTOSIS 2+; HYPOCHROMASIA 1+
[2020-07-23] MEDS ORDERED: KCL 10MEQ/100ML SWI (KRUN) 10 MEQ in IV 1 EA IV ONE (23:35)
[2020-07-23 23:36] LABS: ALT/SGPT 13 U/L (12-78); AMYLASE 58 U/L (25-115); BILIRUBIN,DIRECT 0.1 MG/DL (0.0-0.2); BILIRUBIN,TOTAL 0.2 MG/DL (0.2-1.0); BLOOD UREA NITROGEN 9 MG/DL (7-18); CALCIUM LEVEL 8.9 MG/DL (8.8-10.2); CARBON DIOXIDE LEVEL 28 MEQ/L (21-32); CHLORIDE LEVEL 103 MEQ/L (98-107); CK-MB VALUE MASS < 1.0 NG/ML (<3.6); CPK CREATINE PHOSPHOKINASE 11 U/L (26-192); CREATININE FOR GFR 0.77 MG/DL (0.55-1.30); GLOMERULAR FILTRATION RATE > 60.0 (>39); GLUCOSE, FASTING 141 MG/DL (70-100); MB/CK RELATIVE INDEX 9.09 (< OR =4); POTASSIUM SERUM 2.7 MEQ/L (3.5-5.1); SODIUM LEVEL 138 MEQ/L (136-145); TOTAL PROTEIN 6.6 GM/DL (6.4-8.2); TROPONIN I < 0.02 NG/ML (< 0.10)
[2020-07-23 23:50] LABS: APPEARANCE, URINE CLEAR (CLEAR); BACTERIA, URINE AUTO NEGATIVE (NEGATIVE); BILIRUBIN, URINE AUTO NEGATIVE (NEGATIVE); BLOOD, URINE BLOOD NEGATIVE (NEGATIVE); COLOR, URINE YELLOW (YELLOW); GLUCOSE, URINE (UA) AUTO NEGATIVE (NEGATIVE); KETONE, URINE AUTO NEGATIVE (NEGATIVE); LEUKOCYTE ESTERASE, URINE AUTO NEGATIVE (NEGATIVE); MUCUS, URINE SMALL (NEGATIVE); NITRITE, URINE AUTO NEGATIVE (NEGATIVE); PROTEIN, URINE AUTO 1+ mg/dL (NEGATIVE); RBC, URINE AUTO 8 /HPF (0-3); SPECIFIC GRAVITY URINE AUTO 1.014 (1.002-1.035); SQUAMOUS EPITHELIAL CELL UR AU 0 /HPF (0-6); UROBILINOGEN, URINE AUTO 0.2 mg/dL (0.0-2.0); WBC, URINE AUTO 2 /HPF (0-3)
[2020-07-23] MEDS ORDERED: VANCOMYCIN HCL 1,000 MG, VIAL MATE ADAPTER 1 EACH in NS 250 ML IV ONE (23:50)
[2020-07-23] MEDS ORDERED: POTASSIUM CHLORIDE 10 MEQ SR TABLET PO ONE (23:50)
[2020-07-24] MEDS ORDERED: ONDA8TAB10 PO (00:09)
[2020-07-24] MEDS ORDERED: FLUO40CA PO (00:09)
[2020-07-24] MEDS ORDERED: PROAAER10 INH (00:09)
[2020-07-24] MEDS ORDERED: SULF1TAB30 PO (00:09)
[2020-07-24] MEDS: GASTROGRAFIN SOLUTION 30ML PO SCH ×2 (01:05→01:15)
[2020-07-24 01:12] LABS: ERYTHROCYTE SEDIMENTATION RATE 65 mm/hr (0-30)
[2020-07-24] MEDS ORDERED: ISOVUE-370 76% 100ML VIAL As Ordered ONE (02:03)
--- NOTE | 2020-07-24 02:13 | HPEPDOC ---
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 Garcia at the [facility], ulcerative colitis, Grave's Disease, hyperthyroidism with iatrogenic hypothyroidism status post radioactive iodine ablation 2, right lower extremity DVT, pulmonary embolism on lovenox, perforated diverticulitis, colon resection, colostomy x 3yrs, reversal, UTI, nephrolithiasis, DM2 prior to weight loss, osteoporosis, tremors, h/o MRSA prior to colon resection, left portal vein thrombosis, left leg cellulitis, anxiety, depression, chronic debility, Uses a c ane. Status post bilateral knee replacements, left renal vein thrombus presents to the ER c/o shaking chills, fever 102.5, s/p chemo 9days ago and 1st covid vaccination last Tuesday. Patient complained of right upper quadrant abdominal pain described as shooting pain without radiation, unchanged by activity or movement, Unaffected by food, on and off ,intermittent, all day today without any drainage at the puncture site where she had a liver biopsy back in April 2020. She says that the pain is very sharp 10 out of 10 slightly alleviated with Tylenol 2 tablets that she taken today without any vomiting but with some nausea, cough, shortness of breath , loss of taste loss of smell, muscle aches, back pain ,joint pains ,no diarrhea, cough, dysuria, urgency or frequency. Patient has had some serous sanguinous drainage through the liver biopsy site since April, but for the past 3 days patient has had no drainage and has developed worsening pain, shaking chills and fever of 102 at home and in the ER. Patient admits to having the last after her chemotherapy 90s, ago and was found to have a white blood cell count of 20,000, bandemia of 2. Urinalysis was negative. Chest x-ray was also negative. She has not noted any redness, irritation or pain along her right Eiysqf-z-Tpcd which she was placed on 07/11/2020. Patient was given intravenous vancomycin and Zosyn empirically. Blood cultures were taken. Chest CT abdomen and pelvis were ordered. Hospitalist was called to admit the patient for fever of unknown origin. 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 Garcia at the [facility], ulcerative colitis, Grave's Disease, hyperthyroidism with iatrogenic hypothyroidism status post radioactive iodine ablation 2, right lower extremity DVT, pulmonary embolism on lovenox, perforated diverticulitis,UTI, nephrolithiasis, DM2 prior to weight loss, osteoporosis, tremors, h/o MRSA prior to colon resection, left portal vein thrombosis, left leg cellulitis, anxiety, depression, chronic debility, Uses a cane, left renal vein thrombus, coronavirus-19 positive 05/31/20. PAST SURGICAL HISTORY: liver biopsy in April 2020. right internal jugular vein Fjjqde-v-Myaz placement 07/11/2020, radioactive iodine ablation 2, bilateral knee replacements, ventral hernia repair, rectocele repair, stool transplant, colon resection, colostomy x 3yrs, reversal SOCIAL HISTORY: , lives with son, Roshan, DO NOT RESUSCITATE, DO NOT INTUBATE. Former smoker, half pack per day cigarette use for 15 years, quit around [id number] denies alcohol or recreational drug use FAMILY HISTORY: Father at the age of 78, CAD, hypertension Mother at the age of 93, unknown medical problems ALLERGIES: Please see below. REVIEW OF SYSTEMS: 10 point review of systems negative aside from positive findings in HPI HOME MEDICATIONS: Please see below. PHYSICAL EXAMINATION: VITAL SIGNS: See below GENERAL APPEARANCE: Right-sided Gfmdpo-n-Nydm without erythema, tenderness or swelling., Awake, alert, oriented, in no respiratory distress, able to speak in full sentences without conversational dyspnea. No pallor, icterus or jaundice HEENT: No JVD, thyromegaly. Moist mucous membranes. Pupils equally round, reactive to light and accommodation. Extraocular muscles are intact. No carotid bruits CARDIOVASCULAR: S1, S2 regular rate rhythm, no murmurs, rubs or gallops. Nondisplaced point of maximal impulse LUNGS: No adventitious breath sounds clear to auscultation bilaterally, air entry is equal. No scoliosis. Right-sided Eezbmm-q-Ridn ABDOMEN: Right upper quadrant tenderness on deep palpation without rebound or guarding, without drainage, induration, erythema or crepitus. Positive bowel sounds 4 quadrants. No hepatosplenomegaly EXTREMITIES: 1+ pitting edema bilaterally LABORATORY DATA: See below. IMAGING: CT chest, abdomen and pelvis pending Exam: XR Chest Exam date and time: 07/23/2020 10:15 PM Age: 74 years old Clinical indication: Other: Sepsis; Additional info: Sepsis/shock TECHNIQUE: Imaging protocol: XR of the chest Views: 1 view. COMPARISON: CR Chest, 1 view 05/31/2020 7:44 AM FINDINGS: Tubes, catheters and devices: Interval placement of a right Port-A-Cath through the internal jugular system with the tip in the proximal to mid superior vena cava. Lungs: The left lung is unchanged. Pleural spaces: Unremarkable. No pleural effusion. No pneumothorax. Heart/Mediastinum: The heart and mediastinum are unchanged. Diaphragm: Density overlying the right lung base is unchanged and is apparently elevated right hemidiaphragm. Bones/joints: Unremarkable. IMPRESSION: 1. Interval placement of a right Port-A-Cath through the internal jugular with the tip in the proximal to mid superior vena cava. No pneumothorax. 2. Otherwise stable chest. Electronically signed by: Arcenio Long On 07/23/2020 22:27:04 PM MICROBIOLOGY: Please see below. 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 Garcia at the [facility], ulcerative colitis, Grave's Disease, hyperthyroidism with iatrogenic hypothyroidism status post radioactive iodine ablation 2, right lower extremity DVT, pulmonary embolism on lovenox, perforated diverticulitis, colon resection, colostomy x 3yrs, reversal, UTI, nephrolithiasis, DM2 prior to weight loss, osteoporosis, tremors, h/o MRSA prior to colon resection, left portal vein thrombosis, left leg cellulitis, anxiety, depression, chronic debility, Uses a cane. Status post bilateral knee replacements, left renal vein thrombus presents to the ER c/o shaking chills, fever 102.5, s/p chemo 9days ago and 1st covid vaccination last Tuesday. Patient complained of right upper quadrant abdominal pain described as shooting pain without radiation, unchanged by activity or movement, Unaffected by food, on and off ,intermittent, all day today without any drainage at the puncture site where she had a liver biopsy back in April 2020. She says that the pain is very sharp 10 out of 10 slightly alleviated with Tylenol 2 tablets that she taken today without any vomiting but with some nausea, cough, shortness of breath , loss of taste loss of smell, muscle aches, back pain ,joint pains ,no diarrhea, cough, dysuria, urgency or frequency. Patient has had some serous sanguinous drainage through the liver biopsy site since April, but for the past 3 days patient has had no drainage and has developed worsening pain, shaking chills and fever of 102 at home and in the ER. Patient admits to having the last after her chemotherapy s, ago and was found to have a white blood cell count of 20,000, bandemia of 2. Urinalysis was negative. Chest x-ray was also negative. She has not noted any redness, irritation or pain along her right Aimchv-b-Mhqv which she was placed on 07/11/2020. Patient was given intravenous vancomycin and Zosyn empirically. Blood cultures were taken. Chest CT abdomen and pelvis were ordered. Hospitalist was called to admit the patient for fever of unknown origin. Systemic inflammatory response -Patient has a fever 102.5, bandemia with white blood cell count of 20,000, and tachycardia without an obvious source of infection. Due to her immunocompromised state with the intrahepatic cholangiocarcinoma, currently undergoing chemother apy with cisplatin and gemcitabine, cycle #3. She is at high risk of both viral and bacterial infection. She will be empirically treated with intravenous vancomycin and intravenous Zosyn until blood cultures are finalized. Patient was positive for coronary virus 19 in May 2020, but was asymptomatic and not given intravenously in globulins at that time. She also just received her first coronavirus 19 Vaccine last Tuesday. . Therefore, respiratory panel will not be rechecked. Fever of unknown origin -Despite no last induced leukocytosis, Due to her immunocompromised state with the intrahepatic cholangiocarcinoma, currently undergoing chemotherapy with cisplatin and gemcitabine, cycle #3, She is at high risk of both viral and bacterial infection. She will be empirically treated with intravenous vancomycin and intravenous Zosyn until blood cultures are finalized. -Differential diagnosis includes line sepsis from the Wiksky-b-Isgr, abscess, bacteremia. Neulasta induced leukocytosis -Obtain records from medical oncology to confirm that she has been given Neulasta after chemotherapy. Intrahepatic cholangiocarcinoma without brain metastasis -On cycle #3 of cisplatin and gemcitabine. Managed by her medical oncologist, Dr. Lauren Garcia at the [facility]. From her latest MRA of the brain. She has no brain metastasis Left renal vein thrombosis/left portal vein thrombosis/history of right lower extremity DVT/pulmonary embolism -Continue on chronic Lovenox, but monitor her platelet count and bleeding Anemia of chronic disease -No acute indication for RBC transfusion. Chronic thrombocytopenia -Negative for heparin-induced thrombocytopenia during the previous evaluation in June. Since she is on Lovenox,will need to monitor for any significant drop in platelet count . Per her medical oncologist, Lovenox, needs to be held if her platelet count drops below 50,000 and has signs and symptoms of active bleeding Hypokalemia -Most likely due to poor oral intake. Repleted with oral potassium and k-run. Serial potassium and magnesium monitoring Ulcerative colitis -Resumed on home medications. h/o perforated diverticulitis s/p colostomy and reversal h/o Grave's disease/hyperthyroidism s/p radioactive iodine ablation w iatrogenic hypothyroidism -On Synthroid anxiety/depression -No active suicidal ideation h/o MRSA -Recheck MRSA screen coronavirus-19 positive 05/31/20 -Did not receive IV immunoglobulin -Was asymptomatic CODE STATUS DO NOT RESUSCITATE, DO NOT INTUBATE. Molst form from 06/23/2020 , signed by Dr. Elisa Melendez regular DVT prophylaxis on Lovenox Vital Signs Vital Signs Date Time Temp Pulse Resp B/P (MAP) Pulse Ox O2 Delivery O2 Flow Rate FiO2 07/23/20 22:23 114 161/87 (111) 96 07/23/20 21:57 102.5 Laboratory Data Labs 24H Laboratory Tests 2 07/23/20 22:13: Immature Granulocyte % (Auto) , Neutrophils (%) (Auto) , Nucleated Red Blood Cells % (auto) 0.1H, Neutrophils 86H, Band Neutrophils 2, Lymphocytes (Manual) 3L, Monocytes (Manual) 7H, Eosinophils (Manual) 2, Hypochromasia 1+, Anisocytosis 2+, Macrocytosis 1+, Platelet Estimate DECREASED, Immature Platelet Fraction 6.0, Prothrombin Time 13.6, Prothromb Time International Ratio 1.02, Activated Partial Thromboplast Time 28.2, Anion Gap 7L, Glomerular Filtration Rate > 60.0, Lactic Acid Level 1.1, Calcium Level 8.9, Total Bilirubin 0.2, Direct Bilirubin 0.1, Aspartate Amino Transf (AST/SGOT) 5L, Alanine Aminotransferase (ALT/SGPT) 13, Alkaline Phosphatase 260H, Total Creatine Kinase 11L, Creatine Kinase MB < 1.0, Creatine Kinase MB Relative Index 9.09H, Troponin I < 0.02, C-Reactive Protein, Quantitative 11.90H, Total Protein 6.6, Albumin 3.0L, Albumin/Globulin Ratio 0.8L, Amylase Level 58 07/23/20 23:34: Urine Color YELLOW, Urine Appearance CLEAR, Urine pH 6.0, Urine Specific Waka 1.014, Urine Protein 1+H, Urine Glucose (Auto)(UA) NEGATIVE, Urine Ketones (Auto) NEGATIVE, Urine Blood NEGATIVE, Urine Nitrite NEGATIVE, Urine Bilirubin NEGATIVE, Urine Urobilinogen 0.2, Urine Leukocyte Esterase (Auto) NEGATIVE, Urine WBC (Auto) 2, Urine RBC (Auto) 8H, Urine Hyaline Casts (Auto) 0, Urine Bacteria (Auto) NEGATIVE, Urine Squamous Epithelial Cells 0, Urine Mucus (Auto) SMALL, Urine Sperm (Auto) CBC/BMP Laboratory Tests 07/23/20 22:13 Microbiology Microbiology 07/23/20 Urine Culture, Received Pending 07/23/20 Blood Culture, Received Pending 07/23/20 Blood Culture, Received Pending Home Medications Scheduled Enoxaparin Sodium (Lovenox) 80 Mg/0.8 Ml Syringe, 80 MG SC QHS Fluoxetine Hcl (Fluoxetine HCl) 40 Mg Capsule, 40 MG PO DAILY Levothyroxine Sodium (Levothyroxine Sodium) 88 Mcg Tablet, 88 MCG PO DAILY Potassium Chloride (Potassium Chloride) 10 Meq Cap, 10 MEQ PO DAILY Sulfasalazine (Sulfasalazine) 500 Mg Tablet, 1,000 MG PO BID Torsemide (Torsemide) 10 Mg Tablet, 10 MG PO DAILY Scheduled PRN Acetaminophen (Tylenol Extra Strength) 500 Mg Tablet, 1,000 MG PO TID PRN for PAIN Albuterol Sulfate (Proair Hfa) 8.5 Gm Hfa.aer.ad, 2 PUFF INH Q4H PRN for SHORTNESS OF BREATH Ondansetron HCl (Ondansetron HCl) 8 Mg Tablet, 8 MG PO Q8H PRN for NAUSEA OR VOMITING Allergies Coded Allergies: No Known Drug Allergies (Verified Allergy, Unknown, 02/27/19) A-FIB/CHADSVASC A-FIB History Current/History of A-Fib/PAF?: No Current PO Anticoag Therapy: No Age/Risk Factor Scoring CHADSVASC: CHADSVASC Response (Comments) Value Age Risk Factor Age 65-74 years old 1 Gender Risk Factor Female 1 Hx of CHF No 0 Hx of HTN No 0 Hx of Stroke/TIA/or VTE No 0 Hx of Diabetes No 0 Hx of Vascular Disease No 0 Total 2 Treatment Treatment ordered: NONE CARTER MORA MD Jul 24, 2020 01:23
[2020-07-24] MEDS ORDERED: ALBUTEROL 90 MCG/ACT 8GM HFA INHALER INH PRN (02:15)
[2020-07-24] MEDS: NS 1,000 ML IV SCH ×3 (02:21→08:36)
--- NOTE | 2020-07-24 02:39 | REPVR ---
PROCEDURE INFORMATION: Exam: CT Chest With Contrast; Diagnostic Exam date and time: 07/24/2020 12:24 AM Age: 74 years old Clinical indication: Fever; Patient HX: HX liver CA; Additional info: Po and iv contrast. Fever or unknown origin TECHNIQUE: Imaging protocol: Diagnostic computed tomography of the chest with contrast. Radiation optimization: All CT scans at this facility use at least one of these dose optimization techniques: automated exposure control; mA and/or kV adjustment per patient size (includes targeted exams where dose is matched to clinical indication); or iterative reconstruction. Contrast material: ISO; Contrast volume: 100 ml; Contrast route: INTRAVENOUS (IV); COMPARISON: PT PET/CT Skull/mid thigh 07/14/2020 10:27 AM FINDINGS: Tubes, catheters and devices: Right Port-A-Cath through the internal jugular with the tip in the distal superior vena cava. Thyroid: Heterogeneous left thyroid nodule measuring 12 mm. Lungs: Minimal right base fibro-atelectatic change adjacent to the elevated right hemidiaphragm. Pleural spaces: Unremarkable. No pneumothorax. No pleural effusion. Heart: Unremarkable. No cardiomegaly. No pericardial effusion. Pulmonary arteries: The main pulmonary artery measures 29 mm. No acute pulmonary embolism is identified. There is question of a thin band in the left lower lobe which may reflect chronic residua of previous pulmonary embolism. Aorta: The ascending thoracic aorta measures 32 mm. Lymph nodes: Unremarkable. No enlarged lymph nodes. Diaphragm: Elevation of the right hemidiaphragm. Liver: Hepatic masses with intercostal invasion and extension into subcutaneous tissues of the right anterolateral upper abdomen. Gallbladder and bile ducts: Cholelithiasis with distention of the gallbladder measuring 6.3 cm in diameter. Bones/joints: Slight anterior wedge configuration of several thoracic segments which appear to be chronic. No acute fracture. Soft tissues: Unremarkable. IMPRESSION: 1. Right Port-A-Cath extending to the distal superior vena cava. 2. Elevation of the right hemidiaphragm with minimal adjacent fibro-atelectatic change. 3. Left thyroid nodule measuring 12 mm. No follow-up is recommended. 4. Multiple hepatic masses with extrahepatic extension and invasion through intercostal space and caudal extension into subcutaneous fat of the upper anterolateral right abdominal wall. 5. Cholelithiasis with gallbladder distention. 6. Otherwise negative CT chest. No acute pulmonary embolism is identified. There may be some chronic residua of previous pulmonary embolism in the left lower lobe. No focal infiltrates. COMMENTS: Consistent with the [employer]'s Incidental Findings Committee white paper (J Am Vincenzo Radiol 2015): In patients aged 35 years and older with an incidental thyroid nodule equal to or greater than 1.[address], MRI or extrathyroidal US, further evaluation with dedicated thyroid US is recommended for patients with normal life expectancy and without comorbidities. For smaller nodules without suspicious features, no further evaluation or follow up is recommended. Electronically signed by: Arcenio Long On 07/24/2020 02:39:18 AM
--- NOTE | 2020-07-24 02:45 | REPVR ---
PROCEDURE INFORMATION: Exam: CT Abdomen And Pelvis With Contrast Exam date and time: 07/24/2020 12:24 AM Age: 74 years old Clinical indication: Fever; Additional info: Po and iv contrast. Fever or unknown origin TECHNIQUE: Imaging protocol: Computed tomography of the abdomen and pelvis with contrast. Radiation optimization: All CT scans at this facility use at least one of these dose optimization techniques: automated exposure control; mA and/or kV adjustment per patient size (includes targeted exams where dose is matched to clinical indication); or iterative reconstruction. Contrast material: ISO; Contrast volume: 100 ml; Contrast route: INTRAVENOUS (IV); Other contrast: Oral, ggraphin, minimal; COMPARISON: PT PET/CT Skull/mid thigh 07/14/2020 10:27 AM FINDINGS: Liver: There are multiple hepatic masses which are largest in the anterior right hepatic lobe. There is extrahepatic extension through in a adjacent intercostal space with anterior and caudal extension into the subcutaneous fat of the right anterolateral aspect of the upper abdomen. Gallbladder and bile ducts: There are multiple gallstones in the gallbladder which is distended measuring 6.5 cm in diameter. Pancreas: Small cyst in the pancreatic head measuring 10 mm Spleen: Normal. No splenomegaly. Adrenal glands: Normal. No mass. Kidneys and ureters: There are bilateral renal cysts measuring up to 18 mm on the left with a Hounsfield measurement of 9 consistent with simple cysts. No follow-up imaging is recommended. Probable nonobstructing bilateral renal calculi. Stomach and bowel: Broad-based epigastric ventral wall hernia containing a portion of transverse colon with no obstruction. Colonic anastomosis in the mid sigmoid consistent with partial resection. Appendix: There are no changes of appendicitis. A normal appendix is not seen. Intraperitoneal space: Unremarkable. No free air. No significant fluid collection. Vasculature: There is minimal atherosclerotic calcification of the abdominal aorta. Lymph nodes: Unremarkable. No enlarged lymph nodes. Urinary bladder: Unremarkable as visualized. Reproductive: Unremarkable as visualized. Bones/joints: Unremarkable. No acute fracture. Soft tissues: See "Liver" finding. IMPRESSION: 1. Multiple hepatic masses with extrahepatic extension and invasion through an anterolateral intercostal space into the subcutaneous fat of the upper right anterolateral abdominal wall. 2. Cholelithiasis with multiple stones and distention of the gallbladder measuring 6.5 cm in diameter. 3. 10 mm pancreatic head cyst which is new since 07/14/2020. A duodenal diverticulum is not excluded. 4. Probable nonobstructing bilateral renal calculi. COMMENTS: Consistent with the [employer]'s Incidental Findings Committee white paper (J Am Vincenzo Radiol 2018): Any incidental renal lesion less than 1 cm or classified as too small to characterize, or any incidental cystic renal lesion characterized as simple-appearing, is likely benign. No follow-up imaging is recommended for these lesions per consensus recommendations based on imaging criteria. Electronically signed by: Arcenio Long On 07/24/2020 02:45:48 AM
[2020-07-24 03:00] VITALS: BP 108/64
[2020-07-24] MEDS: ENOXAPARIN 80MG/0.8ML SYRINGE (J1650 PER 10MG) SC SCH ×2 (03:53→21:39)
[2020-07-24] MEDS: PIPERACILLIN/TAZOBACTAM SOD 3.375 GM in D5W MINI-BAG PLUS 50 ML IV SCH ×4 (03:53→21:38)
[2020-07-24] MEDS: LEVOTHYROXINE 88MCG TABLET (0.088 MG) PO SCH (05:53)
[2020-07-24 06:00] VITALS: BP 108/69
[2020-07-24 06:22] LABS: HEMATOCRIT 27.2 % (36.0-47.0); HEMOGLOBIN 8.2 g/dl (12.0-15.5); MEAN CORPUSCULAR HEMOGLOBIN 26.8 pg (27.0-33.0); MEAN CORPUSCULAR HGB CONC 30.1 g/dl (32.0-36.5); MEAN CORPUSCULAR VOLUME 88.9 fl (80.0-96.0); RED BLOOD COUNT 3.06 10^6/uL (4.00-5.40)
[2020-07-24 06:24] LABS: PLATELET COUNT, AUTOMATED 85 10^3/uL (150-450); WHITE BLOOD COUNT 23.4 10^3/uL (4.0-10.0)
[2020-07-24 06:42] LABS: EOSINOPHILS 2 % (0-3); LYMPHOCYTES 8 % (16-44); MONOCYTES 5 % (0-5); NEUTROPHILS 84 % (28-66)
[2020-07-24 06:43] LABS: BLOOD UREA NITROGEN 9 MG/DL (7-18); CALCIUM LEVEL 8.7 MG/DL (8.8-10.2); CARBON DIOXIDE LEVEL 25 MEQ/L (21-32); CHLORIDE LEVEL 106 MEQ/L (98-107); CREATININE FOR GFR 0.75 MG/DL (0.55-1.30); GLOMERULAR FILTRATION RATE > 60.0 (>39); GLUCOSE, FASTING 106 MG/DL (70-100); PLATELET ESTIMATE DECREASED (NORMAL); SODIUM LEVEL 139 MEQ/L (136-145)
[2020-07-24] MEDS: POTASSIUM CHLORIDE 10 MEQ SR TABLET PO SCH (08:19)
[2020-07-24] MEDS: DOCUSATE SODIUM 100MG CAPSULE PO SCH ×2 (08:19→21:39)
[2020-07-24] MEDS: sulfaSALAzine 500 MG TABEC PO SCH ×2 (08:19→21:39)
[2020-07-24] MEDS: FLUoxetine 20 MG CAP PO SCH (08:20)
[2020-07-24] MEDS: SODIUM CHLORIDE 0.9% INJ 10 ML SYR IV SCH (08:20)
[2020-07-24] MEDS: ACETAMINOPHEN 500 MG TAB PO PRN ×2 (12:42→21:41)
[2020-07-24] MEDS: MAG SULF 1GM/100ML (MAG RUN) 1 GM in IV 1 EA IV SCH ×2 (12:43→14:04)
--- NOTE | 2020-07-24 12:52 | IPNPDOC ---
Text Note Date of Service The patient was seen on 07/24/20. 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 Garcia at the [facility], ulcerative col itis, Grave's Disease, hyperthyroidism with iatrogenic hypothyroidism status post radioactive iodine ablation 2, right lower extremity DVT, pulmonary embolism on lovenox, perforated diverticulitis, colon resection, colostomy x 3yrs, reversal, UTI, nephrolithiasis, DM2 prior to weight loss, osteoporosis, tremors, h/o MRSA prior to colon resection, left portal vein thrombosis, left leg cellulitis, anxiety, depression, chronic debility, Uses a cane. Status post bilateral knee replacements, left renal vein thrombus presents to the ER c/o shaking chills, fever 102.5, s/p chemo 9days ago and 1st covid vaccination last Tuesday. Patient complained of right upper quadrant abdominal pain described as shooting pain without radiation, unchanged by activity or movement, Unaffected by food, on and off ,intermittent, all day today without any drainage at the puncture site where she had a liver biopsy back in April 2020. She says that the pain is very sharp 10 out of 10 slightly alleviated with Tylenol 2 tablets that she taken today without any vomiting but with some nausea, cough, shortness of breath , loss of taste loss of smell, muscle aches, back pain ,joint pains ,no diarrhea, cough, dysuria, urgency or frequency. Patient has had some serous sanguinous drainage through the liver biopsy site since April, but for the past 3 days patient has had no drainage and has developed worsening pain, shaking chills and fever of 102 at home and in the ER. Patient admits to having the last after her chemotherapy 90s, ago and was found to have a white blood cell count of 20,000, bandemia of 2. Urinalysis was negative. Chest x-ray was also negative. She has not noted any redness, irritation or pain along her right Iwikfx-l-Snko which she was placed on 07/11/2020. Patient was given intravenous vancomycin and Zosyn empirically. Blood cultures were taken. Chest CT abdomen and pelvis were ordered. Hospitalist was called to admit the patient for fever of unknown origin. Today, pt denies any new complaints. She was informed of the spread of the cholangiocarcinoma to her intercostal muscles. She states that this is news to her and would like to discuss with her son about treatment moving forward including pursuing palliative radiative therapy. Objective: General: Pleasant, NAD, cooperative on exam HEENT: NC, AT. EOMI. CV: RRR, Normal S1 and S2. No murmurs, gallops, or rubs. Resp: CTAB with full breath sounds. No wheezes, crackles, or rhonchi. No dullness to percussion. Abdomen: Bowel sounds present. Soft, Tender in RUQ, ND. Extremities: No swelling or edema. Assessment/Plan: #Systemic inflammatory response -Pt presented in febrile state, but is now afebrile -Due to her immunocompromised state with the intrahepatic cholangiocarcinoma, currently undergoing chemotherapy with cisplatin and gemcitabine, cycle #3. She is at high risk of both viral and bacterial infection. -So being empirically treated with intravenous vancomycin and intravenous Zosyn until blood cultures are finalized. -Differential diagnosis includes line sepsis from the Izbjyt-f-Xdbn, abscess, bacteremia. #Leukocytosis likely secondary to Neulasta (colony-forming stimulant) -Obtain records from medical oncology to confirm that she has been given Neulasta after chemotherapy. #Intrahepatic cholangiocarcinoma without brain metastasis -On cycle #3 of cisplatin and gemcitabine. -Managed by her medical oncologist, Dr. Lauren Garcia at the [facility]. -From her latest MRA of the brain. She has no brain metastasis #Left renal vein thrombosis/left portal vein thrombosis/history of right lower extremity DVT/pulmonary embolism -Continue on chronic Lovenox -monitor her platelet count and bleeding #Anemia of chronic disease -No acute indication for RBC transfusion. #Chronic thrombocytopenia -Negative for heparin-induced thrombocytopenia during the previous evaluation in June. -Since she is on Lovenox, will need to monitor for any significant drop in platelet count. -Per her medical oncologist, Lovenox, needs to be held if her platelet count drops below 50,000 and has signs and symptoms of active bleeding #Hypokalemia -Continue oral 10 mEq potassium repletion -k-run done on admission on 07/23/2020 -Serial potassium and magnesium monitoring #Hypomagnesemia -Given magnesium run x2 due to decreased magnesium levels #Ulcerative colitis -Resume home medications. #h/o perforated diverticulitis s/p colostomy and reversal #h/o Grave's disease/hyperthyroidism s/p radioactive iodine ablation w iatrogenic hypothyroidism -On Synthroid #Anxiety/depression -No active suicidal ideation #h/o MRSA -Rechecked MRSA screen -MRSA screen negative #Coronavirus-19 positive 05/31/20 -Did not receive IV immunoglobulin -Was asymptomatic -received first coronavirus vaccination 11 days ago (last Tuesday), therefore respiratory panel for SARS was not redone. Diet: regular DVT prophylaxis: on Lovenox. CODE STATUS DO NOT RESUSCITATE, DO NOT INTUBATE. Molst form from 06/23/2020, signed by Mercy Berry, I+O [facility] I+O Laboratory Tests 07/23/20 22:13 07/24/20 05:41 Vital Signs Date Time Temp Pulse Resp B/P (MAP) Pulse Ox O2 Delivery O2 Flow Rate FiO2 07/24/20 06:00 98.9 83 19 108/69 (82) 98 Room Air I&O- Last 24 Hours up to 6 AM 07/24/20 06:00 Intake Total 2250 ml Output Total 560 ml Balance 1690 ml GME ATTESTATION GME ATTESTATION My faculty preceptor for this patient encounter was physically present during the encounter and was fully available. All aspects of the patient interview, examination, medical decision making process, and medical care plan development were reviewed and approved by the faculty preceptor. The faculty preceptor is aware and concurs with the plan as stated in the body of this note and will attest to such by his/her cosignature. ATTENDING NOTE I, Min Hankins MD, have independently examined this patient and performed my own physical exam, as well as reviewed the documentation and edited where necessary. I have discussed in detail with the resident / student the findings and plan of treatment as documented by the resident / student and edited their note. I agree with their findings and treatment plan and have edited their documentation. Telly Flores DO Jul 24, 2020 11:56 MIN HANKINS MD Jul 25, 2020 14:50
[2020-07-24] MEDS ORDERED: POTASSIUM CHLORIDE 10 MEQ SR TABLET PO ONE (13:15)
[2020-07-24 14:00] VITALS: BP 115/67
[2020-07-24 15:11] LABS: BLOOD UREA NITROGEN 8 MG/DL (7-18); CALCIUM LEVEL 8.5 MG/DL (8.8-10.2); CARBON DIOXIDE LEVEL 23 MEQ/L (21-32); CHLORIDE LEVEL 109 MEQ/L (98-107); CREATININE FOR GFR 0.78 MG/DL (0.55-1.30); GLOMERULAR FILTRATION RATE > 60.0 (>39); GLUCOSE, FASTING 144 MG/DL (70-100); MAGNESIUM LEVEL 1.6 MG/DL (1.8-2.4); POTASSIUM SERUM 3.5 MEQ/L (3.5-5.1); SODIUM LEVEL 139 MEQ/L (136-145)
[2020-07-24] MEDS: ONDANSETRON 4MG/2ML VIAL IV PRN (21:42)
[2020-07-24] MEDS: SODIUM CHLORIDE 0.9% INJ 10 ML SYR IV PRN (21:43)
[2020-07-24 22:00] VITALS: BP 112/68
[2020-07-25] MEDS ORDERED: CALCIUM CARBONATE 500 MG CHEW U/D PO PRN (00:45)
[2020-07-25] MEDS ORDERED: IBUPROFEN 400MG TAB PO ONE ×2 (00:45→23:35)
[2020-07-25] MEDS: PIPERACILLIN/TAZOBACTAM SOD 3.375 GM in D5W MINI-BAG PLUS 50 ML IV SCH ×4 (01:32→20:54)
[2020-07-25] MEDS: SODIUM CHLORIDE 0.9% INJ 10 ML SYR IV PRN ×3 (01:33→23:30)
[2020-07-25 02:51] VITALS: BP 120/74
[2020-07-25 05:51] LABS: HEMATOCRIT 26.3 % (36.0-47.0); HEMOGLOBIN 8.1 g/dl (12.0-15.5); MEAN CORPUSCULAR HEMOGLOBIN 27.4 pg (27.0-33.0); MEAN CORPUSCULAR HGB CONC 30.8 g/dl (32.0-36.5); MEAN CORPUSCULAR VOLUME 88.9 fl (80.0-96.0); PLATELET COUNT, AUTOMATED 134 10^3/uL (150-450); RED BLOOD COUNT 2.96 10^6/uL (4.00-5.40)
[2020-07-25 06:00] VITALS: BP 122/72
[2020-07-25 06:04] LABS: ATYPICAL LYMPH 2 % (0-5); LYMPHOCYTES 6 % (16-44); MONOCYTES 6 % (0-5); MYELOCYTES 2 % (0-0); NEUTROPHILS 84 % (28-66)
[2020-07-25] MEDS: LEVOTHYROXINE 88MCG TABLET (0.088 MG) PO SCH (06:04)
[2020-07-25 06:06] LABS: ANISOCYTOSIS 1+; PLATELET ESTIMATE DECREASED (NORMAL); POIKILOCYTOSIS 1+; POLYCHROMASIA 1+
[2020-07-25 06:07] LABS: BLOOD UREA NITROGEN 10 MG/DL (7-18); CALCIUM LEVEL 8.6 MG/DL (8.8-10.2); CARBON DIOXIDE LEVEL 24 MEQ/L (21-32); CHLORIDE LEVEL 108 MEQ/L (98-107); CREATININE FOR GFR 0.86 MG/DL (0.55-1.30); GLOMERULAR FILTRATION RATE > 60.0 (>39); GLUCOSE, FASTING 87 MG/DL (70-100); MAGNESIUM LEVEL 1.8 MG/DL (1.8-2.4); POTASSIUM SERUM 3.5 MEQ/L (3.5-5.1); SODIUM LEVEL 141 MEQ/L (136-145)
--- NOTE | 2020-07-25 07:58 | ECGEPIP ---
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
[2020-07-25] MEDS: sulfaSALAzine 500 MG TABEC PO SCH ×2 (08:54→20:55)
[2020-07-25] MEDS: FLUoxetine 20 MG CAP PO SCH (08:54)
[2020-07-25] MEDS: POTASSIUM CHLORIDE 10 MEQ SR TABLET PO SCH (08:55)
[2020-07-25] MEDS: DOCUSATE SODIUM 100MG CAPSULE PO SCH ×2 (08:55→20:51)
[2020-07-25] MEDS: SODIUM CHLORIDE 0.9% INJ 10 ML SYR IV SCH (08:56)
[2020-07-25] MEDS: ACETAMINOPHEN 500 MG TAB PO PRN ×2 (09:54→20:57)
[2020-07-25] MEDS ORDERED: PEGF6SYR SQ ×2 (10:03→16:01)
[2020-07-25] MEDS: ONDANSETRON 4MG/2ML VIAL IV PRN ×2 (11:16→23:31)
--- NOTE | 2020-07-25 13:33 | IPNPDOC ---
Text Note Date of Service The patient was seen on 07/25/20. 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 Garcia at the [facility], ulcerative col itis, Grave's Disease, hyperthyroidism with iatrogenic hypothyroidism status post radioactive iodine ablation 2, right lower extremity DVT, pulmonary embolism on lovenox, perforated diverticulitis, colon resection, colostomy x 3yrs, reversal, UTI, nephrolithiasis, DM2 prior to weight loss, osteoporosis, tremors, h/o MRSA prior to colon resection, left portal vein thrombosis, left leg cellulitis, anxiety, depression, chronic debility, Uses a cane. Status post bilateral knee replacements, left renal vein thrombus presents to the ER c/o shaking chills, fever 102.5, s/p chemo 9days ago and 1st covid vaccination last Tuesday. Patient complained of right upper quadrant abdominal pain described as shooting pain without radiation, unchanged by activity or movement, Unaffected by food, on and off ,intermittent, all day today without any drainage at the puncture site where she had a liver biopsy back in April 2020. She says that the pain is very sharp 10 out of 10 slightly alleviated with Tylenol 2 tablets that she taken today without any vomiting but with some nausea, cough, shortness of breath , loss of taste loss of smell, muscle aches, back pain ,joint pains ,no diarrhea, cough, dysuria, urgency or frequency. Patient has had some serous sanguinous drainage through the liver biopsy site since April, but for the past 3 days patient has had no drainage and has developed worsening pain, shaking chills and fever of 102 at home and in the ER. Patient admits to having the last after her chemotherapy 90s, ago and was found to have a white blood cell count of 20,000, bandemia of 2. Urinalysis was negative. Chest x-ray was also negative. She has not noted any redness, irritation or pain along her right Rwacme-l-Hlzt which she was placed on 07/11/2020. Patient was given intravenous vancomycin and Zosyn empirically. Blood cultures were taken. Chest CT abdomen and pelvis were ordered. Hospitalist was called to admit the patient for fever of unknown origin. Today, pt denies any new complaints. She was informed of the spread of the cholangiocarcinoma to her intercostal muscles on 07/24/2020. She states that this is news to her and would like to discuss with her son about treatment moving forward including pursuing palliative radiative therapy. She was able to have her breakfast without difficulties, and reported no new symptoms. Nursing staff did not report any overnight events. Objective: General: Pleasant, NAD, cooperative on exam HEENT: NC, AT. EOMI. CV: RRR, Normal S1 and S2. No murmurs, gallops, or rubs. Resp: CTAB with full breath sounds. No wheezes, crackles, or rhonchi. No dullness to percussion. Abdomen: Bowel sounds present. Soft, Tender in RUQ, ND. Extremities: No swelling or edema. Assessment/Plan: #Systemic inflammatory response -Pt presented in febrile state, but is now afebrile -Due to her immunocompromised state with the intrahepatic cholangiocarcinoma, currently undergoing chemotherapy with cisplatin and gemcitabine, cycle #3. She is at high risk of both viral and bacterial infection. -So being empirically treated with intravenous Zosyn until blood cultures result. IV vancomycin was discontinued 07/24/2020. -Differential diagnosis includes line sepsis from the Dhznku-s-Wnor, abscess, bacteremia. #Leukocytosis likely secondary to Neulasta (colony-forming stimulant) -Obtain records from medical oncology to confirm that she has been given Neulasta after chemotherapy. #Intrahepatic cholangiocarcinoma without brain metastasis -On cycle #3 of cisplatin and gemcitabine. -Managed by her medical oncologist, Dr. Lauren Garcia at the [facility]. -From her latest MRA of the brain. She has no brain metastasis -Dr. Garcia will be coming in to talk to patient about palliative care moving forward. 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 #Chronic thrombocytopenia -Negative for heparin-induced thrombocytopenia during the previous evaluation in June. -Since she is on Lovenox, will need to monitor for any significant drop in platelet count. -Per her medical oncologist, Lovenox, needs to be held if her platelet count drops below 50,000 and has signs and symptoms of active bleeding #Hypokalemia -Continue oral 10 mEq potassium repletion -k-run done on admission on 07/23/2020 -Serial potassium and magnesium monitoring #Hypomagnesemia -Given magnesium run x2 due to decreased magnesium levels #Ulcerative colitis -Resume home medications. #h/o perforated diverticulitis s/p colostomy and reversal #h/o Grave's disease/hyperthyroidism s/p radioactive iodine ablation w iatrogenic hypothyroidism -On Synthroid #Anxiety/depression -No active suicidal ideation #h/o MRSA -Rechecked MRSA screen -MRSA screen negative #Coronavirus-19 positive 05/31/20 -Did not receive IV immunoglobulin -Was asymptomatic -received first coronavirus vaccination 11 days ago (last Tuesday), therefore respiratory panel for SARS was not redone. Diet: regular DVT prophylaxis: on Lovenox. CODE STATUS DO NOT RESUSCITATE, DO NOT INTUBATE. Molst form from 06/23/2020, signed by Mercy Berry, I[facility] I+O Laboratory Tests 07/24/20 13:59 07/25/20 05:30 Vital Signs Date Time Temp Pulse Resp B/P (MAP) Pulse Ox O2 Delivery O2 Flow Rate FiO2 07/25/20 06:00 98.9 76 18 122/72 (89) 97 Room Air I&O- Last 24 Hours up to 6 AM 07/25/20 06:00 Intake Total 1340 ml Output Total 500 ml Balance 840 ml GME ATTESTATION GME ATTESTATION My faculty preceptor for this patient encounter was physically present during the encounter and was fully available. All aspects of the patient interview, examination, medical decision making process, and medical care plan development were reviewed and approved by the faculty preceptor. The faculty preceptor is aware and concurs with the plan as stated in the body of this note and will attest to such by his/her cosignature. ATTENDING NOTE I, Min Hankins MD, have independently examined this patient and performed my own physical exam, as well as reviewed the documentation and edited where necessary. I have discussed in detail with the resident / student the findings and plan of treatment as documented by the resident / student and edited their note. Patient complained of right upper quadrant abdominal pain described as shooting pain without radiation, and was found to have the cholangiocarcinoma outgrown from the liver and encroaching the ribs and possibly the pain was because of that. No collection was found and the patient was empirically started with antibiotics with IV Zosyn. Blood cultures have been sent. Urine cultures have been sent as well. Detailed discussion with the patient was done regarding the poor prognosis and she wants to discuss it with Jose who will be consulted today. She has given thought about hospice versus palliative care and continues to discuss it with her son before she could make a call. She continues to have leukocytosis, fevers and elevated inflammatory markers. She has had Covid in April and has received vaccination as well. In any case, because of her continued myalgias, fever. Repeat Covid test has been ordered for today. Disposition is unknown at this time Telly Flores DO Jul 25, 2020 12:14 MIN HANKINS MD Jul 25, 2020 14:49
[2020-07-25 14:00] VITALS: BP 115/66
--- NOTE | 2020-07-25 18:31 | CR.PDOC ---
General Date of Consultation: Jul 25, 2020 Referring Provider: Telly Flores DO Attending Physician: SHAILESH PAZ MD Consultation REASON FOR CONSULTATION/CHIEF COMPLAINT: Metastatic cholangiocarcinoma HISTORY OF PRESENT ILLNESS: Ms. 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 She is currently on cisplatin/gemcitabine chemotherapy, and has so far received 2 cycles with most recent cycle 2 day 8 chemotherapy given 07/15/2020. She also received pegfilgrastim injection after last cycle of chemotherapy. She is currently admitted for fever and deemed to have SIRS. Started on IV antibiotics. Initial temperature on admission 102.5 with tem perature curve trending downward. ALLERGIES: Please see below. HOME MEDICATIONS: Please see below. Past Medical History: Hypothyroidism Depression/Anxiety. Ulcerative colitis. Perforated diverticulitis. Atrial fibrillation. DVT. Family History: No family history of cancer. Social History: Former smoker quit 1997 up to half a pack a day from 20s. ETOH . Lies with son Roshan. REVIEW OF SYSTEMS: General: Reports: Fatigue, Normal Appetite, Malaise; Denies: Night Sweats Constitutional: Reports: Fatigue, Normal appetite, Chills, Fever, Malaise, Weakness; Denies: , Night Sweats, Weight Loss, Lethargy Eyes: Denies: Pain, Vision change, Conjunctivae inflammation, Eyelid inflammation, Redness HEENT: Reports: Head aches. Denies: Ear Pain, Dysphagia, Sinus Congestion, Post Nasal Drip, Sore Throat, Epistaxis Skin: Denies: Rash, Lesions, Jaundice, Bruising Pulmonary: Reports: Other Symptoms (lower right thoracic area drainage resolved); Denies: Dyspnea, Cough, Pleuritic Chest Pain Cardiovascular: Reports edema. Denies: Chest Pain, Palpitations, Orthopnea, Paroxysmal Noc. Dyspnea, Lt Headedness Gastrointestinal: Reports nausea. Denies: Vomiting, Abdominal Pain, Diarrhea, Constipation, Melena, Hematochezia Genitourinary: Reports: Frequency; Denies: Dysuria, Incontinence, Hematuria, Retention Hematologic: Denies: Bruising, Bleeding Excessively, Petecchia, Purpura, Enlarged Lymph Nodes PHYSICAL EXAMINATION: VITAL SIGNS: Please see below. GENERAL APPEARANCE: Lying in bed, comfortable, not in distress, conversational. HEENT: Pinkish conjunctiva, anicteric, atraumatic. RESPIRATORY: Fair air entry. No rales, no rhonchi, no wheeze. CARDIOVASCULAR: S1, S2 regular. No murmur. ABDOMEN: Soft, nontender, positive bowel sounds, no guarding. EXTREMITIES: Bilateral lower extremity edema, greater on the left than on the right. No calf tenderness. No clubbing. No cyanosis. NEUROLOGICAL: Alert, oriented to time, place and person, moved upper and lower extremities spontaneously PSYCHIATRIC: No anxiety. ECOG PS = 23. LABORATORY DATA: Please see below. ASSESSMENT/PLAN: 74-year-old with Metastatic cholangiocarcinoma. On cisplatin/gemcitabine chemotherapy and has received 2 cycles of chemotherapy so far. Received pegfilgrastim injection 07/16/2020 after last cycle of chemotherapy. Pegfilgrastim likely contributing at the very least to leukocytosis. Currently admitted for SIRS. I discussed with Ms. Guerra that her admissions to hospital after completion of each cycle of chemotherapy are concerning. She is currently frail and weak and needs assistance with her day-to-day activities. I discussed continuing with chemotherapy versus full supportive care and I also discussed a referral to hospice service. She understands that she has an incurable condition. However, she does not want to be solely on supportive care at this time. She wants to continue on chemotherapy once she is discharged from the hospital. PT/OT ongoing at present. Will arrange a follow-up appointment once she is discharged from the hospital. Thank you for informing us of Ms. Guerra's admission. Vital Signs/I&O Vital Signs Date Time Temp Pulse Resp B/P (MAP) Pulse Ox O2 Delivery O2 Flow Rate FiO2 07/25/20 14:00 100.3 96 16 115/66 (82) 95 Room Air I&O- Last 24 Hours up to 6 AM 07/25/20 06:00 Intake Total 1340 ml Output Total 500 ml Balance 840 ml Laboratory Data Labs 24H Laboratory Tests 2 07/25/20 05:30: Immature Granulocyte % (Auto) , Neutrophils (%) (Auto) , Nucleated Red Blood Laura ls % (auto) 0.0, Neutrophils 84H, Lymphocytes (Manual) 6L, Monocytes (Manual) 6H, Myelocytes 2H, Atypical Lymphocytes 2, Polychromasia 1+, Poikilocytosis 1+, Anisocytosis 1+, Platelet Estimate DECREASED, Anion Gap 9, Glomerular Filtration Rate > 60.0, Calcium Level 8.6L, Magnesium Level 1.8 07/25/20 12:51: Coronavirus (COVID-19)(PCR) NEGATIVE CBC/BMP Laboratory Tests 07/25/20 05:30 Microbiology Microbiology 07/23/20 Urine Culture - Final, Complete 07/23/20 Blood Culture - Preliminary, Resulted No growth after 24 hours . All specim... 07/23/20 Blood Culture - Preliminary, Resulted No growth after 24 hours . All specim... Allergies Coded Allergies: No Known Drug Allergies (Verified Allergy, Unknown, 02/27/19) Home Medications Scheduled Enoxaparin Sodium (Lovenox) 80 Mg/0.8 Ml Syringe, 80 MG SC QHS, (Reported) Fluoxetine Hcl (Fluoxetine HCl) 40 Mg Capsule, 40 MG PO DAILY, (Reported) Levothyroxine Sodium (Levothyroxine Sodium) 88 Mcg Tablet, 88 MCG PO DAILY, (Reported) Pegfilgrastim-Bmez (Ziextenzo) 6 Mg/0.6 Ml Syringe, 6 MG SQ ASDIRECTED, #7 Inject on Day 9 Chemotherapy Potassium Chloride (Potassium Chloride) 10 Meq Cap, 10 MEQ PO DAILY, (Reported) Sulfasalazine (Sulfasalazine) 500 Mg Tablet, 1,000 MG PO BID, (Reported) Torsemide (Torsemide) 10 Mg Tablet, 10 MG PO DAILY, (Reported) Scheduled PRN Acetaminophen (Tylenol Extra Strength) 500 Mg Tablet, 1,000 MG PO TID PRN for PAIN, (Reported) Albuterol Sulfate (Proair Hfa) 8.5 Gm Hfa.aer.ad, 2 PUFF INH Q4H PRN for SHORTNESS OF BREATH, (Reported) Ondansetron HCl (Ondansetron HCl) 8 Mg Tablet, 8 MG PO Q8H PRN for NAUSEA OR VOMITING, (Reported) GAY WORLEY MD Jul 25, 2020 18:31
[2020-07-25 19:45] LABS: CA19-9 TUMOR MARKER,CARBOHYDRA 3343.8 U/ML (<35.0)
[2020-07-25] MEDS: ENOXAPARIN 80MG/0.8ML SYRINGE (J1650 PER 10MG) SC SCH (20:55)
[2020-07-25 22:00] VITALS: BP 119/70
[2020-07-26] MEDS: SODIUM CHLORIDE 0.9% INJ 10 ML SYR IV PRN ×3 (01:37→15:17)
[2020-07-26] MEDS: PIPERACILLIN/TAZOBACTAM SOD 3.375 GM in D5W MINI-BAG PLUS 50 ML IV SCH ×4 (01:37→21:11)
[2020-07-26 01:50] VITALS: BP 119/71
[2020-07-26] MEDS ORDERED: hydrOXYzine 25 MG TAB PO ONE (02:05)
[2020-07-26] MEDS: LEVOTHYROXINE 88MCG TABLET (0.088 MG) PO SCH (05:52)
[2020-07-26 05:55] LABS: HEMATOCRIT 27.5 % (36.0-47.0); HEMOGLOBIN 8.3 g/dl (12.0-15.5); MEAN CORPUSCULAR HEMOGLOBIN 26.8 pg (27.0-33.0); MEAN CORPUSCULAR HGB CONC 30.2 g/dl (32.0-36.5); MEAN CORPUSCULAR VOLUME 88.7 fl (80.0-96.0); PLATELET COUNT, AUTOMATED 217 10^3/uL (150-450)
[2020-07-26 06:00] VITALS: BP 122/65
[2020-07-26 06:05] LABS: WHITE BLOOD COUNT 22.3 10^3/uL (4.0-10.0)
[2020-07-26 06:11] LABS: BLOOD UREA NITROGEN 13 MG/DL (7-18); CARBON DIOXIDE LEVEL 23 MEQ/L (21-32); CHLORIDE LEVEL 109 MEQ/L (98-107); CREATININE FOR GFR 0.88 MG/DL (0.55-1.30); GLOMERULAR FILTRATION RATE > 60.0 (>39); GLUCOSE, FASTING 92 MG/DL (70-100); POTASSIUM SERUM 3.1 MEQ/L (3.5-5.1); SODIUM LEVEL 138 MEQ/L (136-145)
[2020-07-26 06:12] LABS: CALCIUM LEVEL 9.4 MG/DL (8.8-10.2); MAGNESIUM LEVEL 1.5 MG/DL (1.8-2.4)
[2020-07-26 07:11] LABS: BASOPHILS 1 % (0-1); EOSINOPHILS 3 % (0-3); LYMPHOCYTES 4 % (16-44); MONOCYTES 10 % (0-5); MYELOCYTES 2 % (0-0); NEUTROPHILS 79 % (28-66)
[2020-07-26 07:16] LABS: POLYCHROMASIA 1+
[2020-07-26 07:17] LABS: SCHISTOCYTES 1+
[2020-07-26 07:18] LABS: PLATELET ESTIMATE NORMAL (NORMAL)
[2020-07-26 07:33] LABS: PHOSPHORUS LEVEL 2.7 MG/DL (2.5-4.9)
[2020-07-26] MEDS ORDERED: MAG SULF 1GM/100ML (MAG RUN) 1 GM in IV 1 EA IV ONE (09:00)
[2020-07-26] MEDS: POTASSIUM CHLORIDE 10 MEQ SR TABLET PO SCH (09:42)
[2020-07-26] MEDS: sulfaSALAzine 500 MG TABEC PO SCH ×2 (09:42→21:11)
[2020-07-26] MEDS: SODIUM CHLORIDE 0.9% INJ 10 ML SYR IV SCH (09:42)
[2020-07-26] MEDS: FLUoxetine 20 MG CAP PO SCH (09:43)
[2020-07-26] MEDS: DOCUSATE SODIUM 100MG CAPSULE PO SCH ×2 (09:43→21:00)
[2020-07-26] MEDS: ACETAMINOPHEN 500 MG TAB PO PRN ×2 (09:49→21:12)
[2020-07-26] MEDS: ONDANSETRON 4MG/2ML VIAL IV PRN (09:53)
[2020-07-26] MEDS ORDERED: POTASSIUM CHLORIDE 10 MEQ SR TABLET PO ONE (12:00)
--- NOTE | 2020-07-26 12:14 | IPNPDOC ---
Text Note Date of Service The patient was seen on 07/26/20. NOTE Subjective: -Continues to have episodic fevers. Has a headache currently. Also nauseous -stable abdominal pain over RUQ -plans to continue chemo with Dr. Garcia Objective: General: Pleasant, NAD, cooperative on exam HEENT: NC, AT. EOMI. CV: RRR, Normal S1 and S2. No murmurs, gallops, or rubs. Resp: CTAB with full breath sounds. No wheezes, crackles, or rhonchi. No dullness to percussion. Abdomen: Bowel sounds present. Soft, Tender in RUQ, ND. Extremities: No swelling or edema. Labs: Reviewed WBC 22.3 Hgb 8.3 platelets 217 na 138 K 3.1 Cr 0.88 Assessment/Plan: #SIRS without evidence of occult infection. Possibly 2/2 tumor fevers + neulasta mediated granulocyte stimulation -Has persistent episodic fevers -Due to her immunocompromised state with the intrahepatic cholangiocarcinoma, currently undergoing chemotherapy with cisplatin and gemcitabine, cycle #3. She is at high risk of both viral and bacterial infection, continue empiric pip/tazo. -CT C/A/P showing metastatic disease with out evidence of infection, fluid collection or PE. 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 -Managed by her medical oncologist, Dr. Lauren Garcia at the [facility]. -From her latest MRA of the brain. She has no brain metastasis -Dr. Garcia spoke to her and she expressed desire to continue chemo and will consider palliative care moving forward. 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 #Chronic thrombocytopenia -Negative for heparin-induced thrombocytopenia during the previous evaluation in June. -Since she is on Lovenox, will need to monitor for any significant drop in platelet count. -Per her medical oncologist, Lovenox, needs to be held if her platelet count drops below 50,000 and has signs and symptoms of active bleeding #Hypokalemia -Continue oral 10 mEq potassium repletion QD #Hypomagnesemia -monitor daily and replete PRN #Ulcerative colitis -continue home medications. #h/o perforated diverticulitis s/p colostomy and reversal #h/o Grave's disease/hyperthyroidism s/p radioactive iodine ablation w iatrogenic hypothyroidism -On Synthroid #Anxiety/depression -No active suicidal ideation #h/o MRSA -Rechecked MRSA screen -MRSA screen negative #Coronavirus-19 positive 05/31/20 -Did not receive IV immunoglobulin -Was asymptomatic -received first coronavirus vaccination 14 days ago (07/13), therefore respiratory panel for SARS was not redone. Diet: regular DVT prophylaxis: on Lovenox. VS,Fishbone, I+O VS, Fishbone, I+O Laboratory Tests 07/26/20 05:20 Vital Signs Date Time Temp Pulse Resp B/P (MAP) Pulse Ox O2 Delivery O2 Flow Rate FiO2 07/26/20 06:00 98.5 70 20 122/65 (84) 98 Room Air I&O- Last 24 Hours up to 6 AM 07/26/20 06:00 Intake Total 1400 ml Output Total 550 ml Balance 850 ml ABDI BALLESTEROS MD Jul 26, 2020 12:14
[2020-07-26 14:00] VITALS: BP 108/57
[2020-07-26 14:34] LABS: MAGNESIUM LEVEL 1.8 MG/DL (1.8-2.4); POTASSIUM SERUM 3.3 MEQ/L (3.5-5.1)
[2020-07-26] MEDS: ONDANSETRON 4 MG ORAL DISINTEGRATING TAB SL SCH (17:14)
[2020-07-26] MEDS: METOCLOPRAMIDE INJ 10MG/2ML VIAL (J2765 PER 1) IV PRN (21:11)
[2020-07-26] MEDS: ENOXAPARIN 80MG/0.8ML SYRINGE (J1650 PER 10MG) SC SCH (21:11)
[2020-07-26 22:00] VITALS: BP 141/70
[2020-07-27] MEDS: ONDANSETRON 4 MG ORAL DISINTEGRATING TAB SL SCH ×4 (01:05→18:33)
[2020-07-27] MEDS: PIPERACILLIN/TAZOBACTAM SOD 3.375 GM in D5W MINI-BAG PLUS 50 ML IV SCH (01:05)
[2020-07-27] MEDS: SODIUM CHLORIDE 0.9% INJ 10 ML SYR IV PRN ×3 (01:05→13:48)
[2020-07-27] MEDS: LEVOTHYROXINE 88MCG TABLET (0.088 MG) PO SCH (05:46)
[2020-07-27] MEDS: ACETAMINOPHEN 500 MG TAB PO PRN (05:48)
[2020-07-27 05:50] VITALS: BP 159/74
[2020-07-27 08:05] LABS: HEMATOCRIT 26.4 % (36.0-47.0); HEMOGLOBIN 8.3 g/dl (12.0-15.5); MEAN CORPUSCULAR HEMOGLOBIN 27.2 pg (27.0-33.0); MEAN CORPUSCULAR HGB CONC 31.4 g/dl (32.0-36.5); MEAN CORPUSCULAR VOLUME 86.6 fl (80.0-96.0); PLATELET COUNT, AUTOMATED 375 10^3/uL (150-450); RED BLOOD COUNT 3.05 10^6/uL (4.00-5.40); WHITE BLOOD COUNT 23.4 10^3/uL (4.0-10.0)
[2020-07-27 08:51] LABS: ATYPICAL LYMPH 1 % (0-5); EOSINOPHILS 1 % (0-3); LYMPHOCYTES 5 % (16-44); METAMYELOCYTES 1 % (0-0); MONOCYTES 10 % (0-5); MYELOCYTES 1 % (0-0); NEUTROPHILS 75 % (28-66)
[2020-07-27 08:56] LABS: PLATELET ESTIMATE NORMAL (NORMAL); TOXIC GRANULATION 1+
[2020-07-27 08:57] LABS: ANISOCYTOSIS 1+; POIKILOCYTOSIS 1+
[2020-07-27] MEDS: CIPROFLOXACIN 500MG TABLET PO SCH ×2 (09:48→20:45)
[2020-07-27] MEDS: POTASSIUM CHLORIDE 10 MEQ SR TABLET PO SCH (09:48)
[2020-07-27] MEDS: sulfaSALAzine 500 MG TABEC PO SCH ×2 (09:48→20:45)
[2020-07-27] MEDS: DOCUSATE SODIUM 100MG CAPSULE PO SCH ×2 (09:48→19:30)
[2020-07-27] MEDS: FLUoxetine 20 MG CAP PO SCH (09:48)
[2020-07-27] MEDS: SODIUM CHLORIDE 0.9% INJ 10 ML SYR IV SCH (09:49)
[2020-07-27 10:30] LABS: BLOOD UREA NITROGEN 11 MG/DL (7-18); CALCIUM LEVEL 8.9 MG/DL (8.8-10.2); CARBON DIOXIDE LEVEL 23 MEQ/L (21-32); CHLORIDE LEVEL 107 MEQ/L (98-107); CREATININE FOR GFR 0.95 MG/DL (0.55-1.30); GLOMERULAR FILTRATION RATE > 60.0 (>39); GLUCOSE, FASTING 159 MG/DL (70-100); MAGNESIUM LEVEL 1.5 MG/DL (1.8-2.4); POTASSIUM SERUM 3.3 MEQ/L (3.5-5.1); SODIUM LEVEL 137 MEQ/L (136-145)
--- NOTE | 2020-07-27 10:35 | IPNPDOC ---
Text Note Date of Service The patient was seen on 07/27/20. NOTE Subjective: -Continues to have episodic fevers. -stable abdominal pain over RUQ Objective: General: Pleasant, NAD, cooperative on exam, ill appearing HEENT: NC, AT. EOMI. CV: RRR, Normal S1 and S2. No murmurs, gallops, or rubs. Resp: CTAB with full breath sounds. No wheezes, crackles, or rhonchi. No dullness to percussion. Abdomen: Bowel sounds present. Soft, Tender in RUQ, ND. Extremities: No swelling or edema. Labs: Reviewed Assessment/Plan: #SIRS without evidence of occult infection. Likely 2/2 tumor fevers + neulasta mediated granulocyte stimulation -Has persistent episodic fevers -Due to her immunocompromised state with the intrahepatic cholangiocarcinoma, currently undergoing chemotherapy with cisplatin and gemcitabine, cycle #3. She is at high risk of both viral and bacterial infection, will discontinue empiric pip/tazo and place on cipro PO. -CT C/A/P showing metastatic disease with out evidence of infection, fluid collection or PE. 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 -Managed by her medical oncologist, Dr. Lauren Garcia at the [facility]. -From her latest MRA of the brain. She has no brain metastasis -Dr. Garcia spoke to her and she expressed desire to continue chemo and will consider palliative care moving forward. 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 #Chronic thrombocytopenia -Negative for heparin-induced thrombocytopenia during the previous evaluation in June. -Since she is on Lovenox, will need to monitor for any significant drop in platelet count. -Per her medical oncologist, Lovenox, needs to be held if her platelet count drops below 50,000 and has signs and symptoms of active bleeding #Hypokalemia -Continue oral 10 mEq potassium repletion QD #Hypomagnesemia -monitor daily and replete PRN #Ulcerative colitis -continue home medications. #h/o perforated diverticulitis s/p colostomy and reversal #h/o Grave's disease/hyperthyroidism s/p radioactive iodine ablation w iatrogenic hypothyroidism -On Synthroid #Anxiety/depression -No active suicidal ideation #h/o MRSA -Rechecked MRSA screen -MRSA screen negative #Coronavirus-19 positive 05/31/20 -Did not receive IV immunoglobulin -Was asymptomatic -received first coronavirus vaccination 14 days ago (07/13), therefore respiratory panel for SARS was not redone. Diet: regular DVT prophylaxis: on Lovenox. Dispo: PT/OT for safe discharge planning. Likely home tomorrow with scheduled Tylenol and cipro course. VS,Fishbone, I+O VS, Fishbone, I+O Laboratory Tests 07/26/20 14:03 07/27/20 07:47 Vital Signs Date Time Temp Pulse Resp B/P (MAP) Pulse Ox O2 Delivery O2 Flow Rate FiO2 07/27/20 07:43 99.5 07/27/20 05:50 98 18 159/74 (102) 99 07/26/20 06:00 Room Air I&O- Last 24 Hours up to 6 AM 07/27/20 06:00 Intake Total 1150 ml Output Total 300 ml Balance 850 ml ABDI BALLESTEROS MD Jul 27, 2020 08:37
[2020-07-27] MEDS: ACETAMINOPHEN 500 MG TAB PO SCH ×2 (13:45→20:46)
[2020-07-27] MEDS: METOCLOPRAMIDE INJ 10MG/2ML VIAL (J2765 PER 1) IV PRN (13:48)
[2020-07-27 14:00] VITALS: BP 108/68
[2020-07-27] MEDS: ENOXAPARIN 80MG/0.8ML SYRINGE (J1650 PER 10MG) SC SCH (20:45)
[2020-07-27 22:00] VITALS: BP 122/81
[2020-07-28] MEDS ORDERED: KETOROLAC 30 MG/ML 1ML VIAL IV ONE (05:35)
[2020-07-28 06:00] VITALS: BP 112/57
[2020-07-28] MEDS: LEVOTHYROXINE 88MCG TABLET (0.088 MG) PO SCH (06:01)
[2020-07-28] MEDS: ONDANSETRON 4 MG ORAL DISINTEGRATING TAB SL SCH ×3 (06:02→11:48)
[2020-07-28] MEDS: SODIUM CHLORIDE 0.9% INJ 10 ML SYR IV PRN ×2 (06:02→11:47)
[2020-07-28 06:12] LABS: HEMATOCRIT 29.1 % (36.0-47.0); HEMOGLOBIN 9.1 g/dl (12.0-15.5); MEAN CORPUSCULAR HEMOGLOBIN 27.4 pg (27.0-33.0); MEAN CORPUSCULAR HGB CONC 31.3 g/dl (32.0-36.5); MEAN CORPUSCULAR VOLUME 87.7 fl (80.0-96.0); RED BLOOD COUNT 3.32 10^6/uL (4.00-5.40)
[2020-07-28 06:19] LABS: PLATELET COUNT, AUTOMATED 486 10^3/uL (150-450)
[2020-07-28 06:36] LABS: ATYPICAL LYMPH 1 % (0-5); BASOPHILS 1 % (0-1); EOSINOPHILS 1 % (0-3); LYMPHOCYTES 4 % (16-44); METAMYELOCYTES 2 % (0-0); MONOCYTES 2 % (0-5); MYELOCYTES 2 % (0-0); NEUTROPHILS 84 % (28-66)
[2020-07-28 06:37] LABS: ANISOCYTOSIS 2+; HYPOCHROMASIA 2+; PLATELET ESTIMATE NORMAL (NORMAL)
[2020-07-28] MEDS: sulfaSALAzine 500 MG TABEC PO SCH (08:30)
[2020-07-28] MEDS: CIPROFLOXACIN 500MG TABLET PO SCH (08:30)
[2020-07-28] MEDS: FLUoxetine 20 MG CAP PO SCH (08:30)
[2020-07-28] MEDS: ACETAMINOPHEN 500 MG TAB PO SCH (08:30)
[2020-07-28] MEDS: SODIUM CHLORIDE 0.9% INJ 10 ML SYR IV SCH (08:31)
[2020-07-28] MEDS ORDERED: CIPR-249 PO (08:33)
[2020-07-28] MEDS ORDERED: DOK1CAP7 PO (08:33)
[2020-07-28] MEDS: DOCUSATE SODIUM 100MG CAPSULE PO SCH (08:33)
[2020-07-28] MEDS: POTASSIUM CHLORIDE 10 MEQ SR TABLET PO SCH (08:33)
[2020-07-28] MEDS ORDERED: ACET-683 PO (08:33)
--- NOTE | 2020-07-28 08:52 | DS.PDOC ---
Discharge Summary General Date of Admission Jul 24, 2020 at 00:23 Date of Discharge 07/28/2020 Attending Physician: ABDI BALLESTEROS MD Discharge Summary PROCEDURES PERFORMED DURING STAY: None ADMITTING DIAGNOSES: Fever of unknown origin DISCHARGE DIAGNOSES: Fever likely 2/2 tumor fever SIRS without evidence of occult infection Metastatic cholangiocarcinoma COMPLICATIONS/CHIEF COMPLAINT: Fever,Unknown Origin. HISTORY OF PRESENT ILLNESS: 74-year-old woman diagnosed with metastatic cholangiocarcinoma in 04/2020 currently on cisplatin/gemcitabine chemotherapy, and has so far received 2 cycles with most recent cycle 2 day 8 chemotherapy given 07/15/2020 was which she received pegfilgrastim injection after last cycle of chemotherapy who presented with episodic fevers. HOSPITAL COURSE: In addition, she also has a history of ulcerative colitis, Grave's Disease, hyperthyroidism with iatrogenic hypothyroidism status post radioactive iodine ablation 2, right lower extremity DVT, pulmonary embolism on lovenox, perforated diverticulitis, colon resection, colostomy x 3yrs, reversal, DM2 prior to weight loss, osteoporosis, tremors, left portal vein thrombosis, anxiet y, depression, chronic debility and uses a cane and presented c/o shaking chills and fever to 102.5, s/p chemo 9 days prior to presentation and 1st covid vaccination a few days prior. She complained of right upper quadrant abdominal pain described as shooting pain without radiation, unchanged by activity or movement, unaffected by food, on and off ,intermittent, all day today without any drainage at the puncture site where she had a liver biopsy back in April 2020. On initial evaluation she had a white blood cell count of 20,000, urinalysis was negative, while chest x-ray was also negative. She had no noted any redness, irritation or pain along her right [id number] which she was placed on 07/11/2020 and she was given intravenous vancomycin and Zosyn empirically. Blood cultures were ultimately negative while chest CT abdomen and pelvis showed metastatic disease but no evidence of infectious process. She was treated with piptazo with persistence of the episodic fevers and ultimately all infectious workup was negative. It was eventually concluded that her fevers were likely tumor fevers but given high risk for infection given her immunocomproised state, she will be discharged home on a course of cipro to cover enteric bacteria for a full 14 day course. She is also being discharged on scheduled tylenol as her fevers persist. She had an extensive discussion with her oncologist and ultimately decided to continue on with her chemo which she will continue outpatient and has an appointment with Dr. Garcia on 07/30/2020. DISCHARGE MEDICATIONS: Please see below. ALLERGIES: Please see below. PHYSICAL EXAMINATION ON DISCHARGE: VITAL SIGNS: Please see below. General: Pleasant, NAD, cooperative on exam, ill appearing HEENT: NC, AT. EOMI. CV: RRR, Normal S1 and S2. No murmurs, gallops, or rubs. Resp: CTAB with full breath sounds. No wheezes, crackles, or rhonchi. No dulln ess to percussion. Abdomen: Bowel sounds present. Soft, Tender in RUQ, ND. Extremities: No swelling or edema. LABORATORY DATA: Please see below. IMAGING: CXR: Lungs: The left lung is unchanged. Pleural spaces: Unremarkable. No pleural effusion. No pneumothorax. Heart/Mediastinum: The heart and mediastinum are unchanged. Diaphragm: Density overlying the right lung base is unchanged and is apparently elevated right hemidiaphragm. Bones/joints: Unremarkable. IMPRESSION: 1. Interval placement of a right Port-A-Cath through the internal jugular with the tip in the proximal to mid superior vena cava. No pneumothorax. 2. Otherwise stable chest. Chest CT w/ contrast: Tubes, catheters and devices: Right Port-A-Cath through the internal jugular with the tip in the distal superior vena cava. Thyroid: Heterogeneous left thyroid nodule measuring 12 mm. Lungs: Minimal right base fibro-atelectatic change adjacent to the elevated right hemidiaphragm. Pleural spaces: Unremarkable. No pneumothorax. No pleural effusion. Heart: Unremarkable. No cardiomegaly. No pericardial effusion. Pulmonary arteries: The main pulmonary artery measures 29 mm. No acute pulmonary embolism is identified. There is question of a thin band in the left lower lobe which may reflect chronic residua of previous pulmonary embolism. Aorta: The ascending thoracic aorta measures 32 mm. Lymph nodes: Unremarkable. No enlarged lymph nodes. Diaphragm: Elevation of the right hemidiaphragm. Liver: Hepatic masses with intercostal invasion and extension into subcutaneous tissues of the right anterolateral upper abdomen. Gallbladder and bile ducts: Cholelithiasis with distention of the gallbladder measuring 6.3 cm in diameter. Bones/joints: Slight anterior wedge configuration of several thoracic segments which appear to be chronic. No acute fracture. Soft tissues: Unremarkable. IMPRESSION: 1. Right Port-A-Cath extending to the distal superior vena cava. 2. Elevation of the right hemidiaphragm with minimal adjacent fibro-atelectatic change. 3. Left thyroid nodule measuring 12 mm. No follow-up is recommended. 4. Multiple hepatic masses with extrahepatic extension and invasion through intercostal space and caudal extension into subcutaneous fat of the upper anterolateral right abdominal wall. 5. Cholelithiasis with gallbladder distention. 6. Otherwise negative CT chest. No acute pulmonary embolism is identified. There may be some chronic residua of previous pulmonary embolism in the left lower lobe. No focal infiltrates. CT A/P with contrast: Liver: There are multiple hepatic masses which are largest in the anterior right hepatic lobe. There is extrahepatic extension through in a adjacent intercostal space with anterior and caudal extension into the subcutaneous fat of the right anterolateral aspect of the upper abdomen. Gallbladder and bile ducts: There are multiple gallstones in the gallbladder which is distended measuring 6.5 cm in diameter. Pancreas: Small cyst in the pancreatic head measuring 10 mm Spleen: Normal. No splenomegaly. Adrenal glands: Normal. No mass. Kidneys and ureters: There are bilateral renal cysts measuring up to 18 mm on the left with a Hounsfield measurement of 9 consistent with simple cysts. No follow-up imaging is recommended. Probable nonobstructing bilateral renal calculi. Stomach and bowel: Broad-based epigastric ventral wall hernia containing a portion of transverse colon with no obstruction. Colonic anastomosis in the mid sigmoid consistent with partial resection. Appendix: There are no changes of appendicitis. A normal appendix is not seen. Intraperitoneal space: Unremarkable. No free air. No significant fluid collection. Vasculature: There is minimal atherosclerotic calcification of the abdominal aorta. Lymph nodes: Unremarkable. No enlarged lymph nodes. Urinary bladder: Unremarkable as visualized. Reproductive: Unremarkable as visualized. Bones/joints: Unremarkable. No acute fracture. Soft tissues: See "Liver" finding. IMPRESSION: 1. Multiple hepatic masses with extrahepatic extension and invasion through an anterolateral intercostal space into the subcutaneous fat of the upper right anterolateral abdominal wall. 2. Cholelithiasis with multiple stones and distention of the gallbladder measuring 6.5 cm in diameter. 3. 10 mm pancreatic head cyst which is new since 07/14/2020. A duodenal diverticulum is not excluded. 4. Probable nonobstructing bilateral renal calculi. PROGNOSIS: Fair ACTIVITY: As tolerated DIET: Regular DISCHARGE PLAN: Home with services DISPOSITION: Home DISCHARGE INSTRUCTIONS: Home with 10d of cipro, scheduled tylenol and close onc follow up ITEMS TO FOLLOWUP ON ON OUTPATIENT: Metastatic cholangiocarcinoma Persistent fever of unknown origin DISCHARGE CONDITION: Stable TIME SPENT ON DISCHARGE: 46 minutes. Vital Signs/I&Os Vital Signs Date Time Temp Pulse Resp B/P (MAP) Pulse Ox O2 Delivery O2 Flow Rate FiO2 07/28/20 07:00 100.3 07/28/20 06:00 106 18 112/57 (75) 96 07/27/20 14:00 Room Air I&O- Last 24 Hours up to 6 AM 07/28/20 06:00 Intake Total 980 ml Output Total 350 ml Balance 630 ml Laboratory Data Labs 24H Laboratory Tests 2 07/27/20 09:51: Anion Gap 7L, Glomerular Filtration Rate > 60.0, Calcium Level 8.9, Magnesium Level 1.5L 07/28/20 05:49: Magnesium Level 1.4L, Immature Granulocyte % (Auto) , Neutrophils (%) (Auto) , Nucleated Red Blood Cells % (auto) 0.0, Neutrophils 84H, Band Neutrophils 3, Lymphocytes (Manual) 4L, Monocytes (Manual) 2, Eosinophils (Manual) 1, Basophils (Manual) 1, Metamyelocytes 2H, Myelocytes 2H, Atypical Lymphocytes 1, Hypochromasia 2+, Anisocytosis 2+, Platelet Estimate NORMAL CBC/BMP Laboratory Tests 07/27/20 09:51 07/28/20 05:49 Microbiology Microbiology 07/23/20 Urine Culture - Final, Complete 07/23/20 Blood Culture - Preliminary, Resulted No Growth after 72 hours. All specime... 07/23/20 Blood Culture - Preliminary, Resulted No Growth after 72 hours. All specime... Discharge Medications Scheduled Acetaminophen (Acetaminophen) 500 Mg Tablet, 1,000 MG PO TID Ciprofloxacin HCl (Cipro) 500 Mg Tablet, 500 MG PO BID Docusate Sodium (Dok) 100 Mg Capsule, 100 MG PO BID Enoxaparin Sodium (Lovenox) 80 Mg/0.8 Ml Syringe, 80 MG SC QHS, (Reported) Fluoxetine Hcl (Fluoxetine HCl) 40 Mg Capsule, 40 MG PO DAILY, (Reported) Levothyroxine Sodium (Levothyroxine Sodium) 88 Mcg Tablet, 88 MCG PO DAILY, (Reported) Pegfilgrastim-Bmez (Ziextenzo) 6 Mg/0.6 Ml Syringe, 6 MG SQ ASDIRECTED Inject on Day 9 Chemotherapy Potassium Chloride (Potassium Chloride) 10 Meq Cap, 10 MEQ PO DAILY, (Reported) Sulfasalazine (Sulfasalazine) 500 Mg Tablet, 1,000 MG PO BID, (Reported) Torsemide (Torsemide) 10 Mg Tablet, 10 MG PO DAILY, (Reported) Scheduled PRN Acetaminophen (Tylenol Extra Strength) 500 Mg Tablet, 1,000 MG PO TID PRN for PAIN, (Reported) Albuterol Sulfate (Proair Hfa) 8.5 Gm Hfa.aer.ad, 2 PUFF INH Q4H PRN for SHORTNESS OF BREATH, (Reported) Ondansetron HCl (Ondansetron HCl) 8 Mg Tablet, 8 MG PO Q8H PRN for NAUSEA OR VOMITING, (Reported) Allergies Coded Allergies: No Known Drug Allergies (Verified Allergy, Unknown, 02/27/19) ABDI BALLESTEROS MD Jul 28, 2020 08:51
[2020-07-28] MEDS ORDERED: MAG SULF 1GM/100ML (MAG RUN) 1 GM in IV 1 EA IV ONE (10:00)
[2020-07-30] MEDS ORDERED: ONDA8TAB10 PO (11:38)
== END 2020-07-28 12:33 | disposition home health service (06) | DRG 436 ==
LOC: M ED 21:55 → M ED INP 07-24 00:23 → M MSPAV 07-24 02:39
PROVIDERS: ADMIT General Practice; ATTEND Internal Medicine
DX: C22.9 Malignant neoplasm of liver, not specified as primary or secondary (principal); R65.10 Systemic inflammatory response syndrome (SIRS) of non-infectious origin without acute organ dysfunction; K51.90 Ulcerative colitis, unspecified, without complications; I27.82 Chronic pulmonary embolism; C79.89 Secondary malignant neoplasm of other specified sites; C79.31 Secondary malignant neoplasm of brain; Z86.16 Personal history of COVID-19; E05.00 Thyrotoxicosis with diffuse goiter without thyrotoxic crisis or storm; Z79.01 Long term (current) use of anticoagulants; Z86.711 Personal history of pulmonary embolism; Z86.718 Personal history of other venous thrombosis and embolism; K80.20 Calculus of gallbladder without cholecystitis without obstruction; Z79.899 Other long term (current) drug therapy; Z66 Do not resuscitate; Z87.891 Personal history of nicotine dependence; D69.6 Thrombocytopenia, unspecified; D63.8 Anemia in other chronic diseases classified elsewhere; E87.6 Hypokalemia; E83.42 Hypomagnesemia; D72.829 Elevated white blood cell count, unspecified

== ENCOUNTER → 2020-08-28 | Outpatient (CLI) | payer MEDICARE, OTHER ==
[~2020-08-28] MED LIST changes: +ACET-683 PO; +COVI100V IM; +DOK1CAP7 PO; +FAMO20TA PO; +FLUO40CA PO; +SCOP1PAT2 TOP; +SULF1TAB30 PO
[2020-08-28 14:34] LABS: FREE T4 1.2 NG/DL (0.76-1.46); THYROID STIMULATING HORMONE 1.27 uIU/ML (0.358-3.740)
== END ==
LOC: M PLALAB 10:38
PROVIDERS: ATTEND Nurse Practitioner Family
DX: E89.0 Postprocedural hypothyroidism (principal)

== ENCOUNTER 2020-09-04 19:18 | Inpatient (IN) | payer MEDICARE, OTHER ==
[~2020-09-04] VITALS: Ht 147.3 cm; Wt 64.9 kg
[~2020-09-04 19:18] MED LIST changes: +SODIUM CHLORIDE 0.9% INJ 10 ML SYR IV SCH
[2020-09-04] MEDS ORDERED: PROC10TA4 (19:43)
--- NOTE | 2020-09-04 20:47 | REPVR ---
PROCEDURE INFORMATION: Exam: XR Chest Exam date and time: 09/04/2020 8:28 PM Age: 74 years old Clinical indication: Other: Near syncope TECHNIQUE: Imaging protocol: XR of the chest. Views: 2 views. COMPARISON: CT Chest with contrast 07/24/2020 2:06 AM FINDINGS: Lungs: Unremarkable. No consolidation. Pleural spaces: Unremarkable. No pleural effusion. No pneumothorax. Heart/Mediastinum: Unremarkable. No cardiomegaly. Vasculature: MediPort catheter tip in the superior vena cava. Diaphragm: Elevated right hemidiaphragm secondary to a large eventration. Bones/joints: The spine demonstrates moderate degenerative changes. Osteoporosis. IMPRESSION: No acute findings. Electronically signed by: Levar Villeda On 09/04/2020 20:48:21 PM
[2020-09-04 21:05] LABS: HEMOGLOBIN 9.3 g/dl (12.0-15.5); MEAN CORPUSCULAR HEMOGLOBIN 28.7 pg (27.0-33.0); MEAN CORPUSCULAR VOLUME 92.6 fl (80.0-96.0); RED BLOOD COUNT 3.24 10^6/uL (4.00-5.40)
[2020-09-04 21:17] LABS: PLATELET COUNT, AUTOMATED 87 10^3/uL (150-450); WHITE BLOOD COUNT 41.3 10^3/uL (4.0-10.0)
[2020-09-04 21:18] LABS: INR 1.02; PROTHROMBIN TIME 13.6 SECONDS (12.5-14.3)
[2020-09-04 21:19] LABS: PARTIAL THROMBOPLASTIN TIME 38.3 SECONDS (24.2-38.5)
[2020-09-04 21:20] LABS: LYMPHOCYTES 5 % (16-44); NEUTROPHILS 92 % (28-66)
[2020-09-04 21:21] LABS: HYPOCHROMASIA 1+
[2020-09-04 21:23] LABS: ANISOCYTOSIS 1+; DOHLE BODIES 1+; PLATELET ESTIMATE DECREASED (NORMAL)
[2020-09-04 21:37] LABS: BLOOD UREA NITROGEN 13 MG/DL (7-18); CALCIUM LEVEL 8.9 MG/DL (8.8-10.2); CARBON DIOXIDE LEVEL 24 MEQ/L (21-32); CHLORIDE LEVEL 102 MEQ/L (98-107); CK-MB VALUE MASS < 1.0 NG/ML (<3.6); CPK CREATINE PHOSPHOKINASE 14 U/L (26-192); FREE T4 1.36 NG/DL (0.76-1.46); GLOMERULAR FILTRATION RATE > 60.0 (>39); GLUCOSE, FASTING 104 MG/DL (70-100); MAGNESIUM LEVEL 0.9 MG/DL (1.8-2.4); MB/CK RELATIVE INDEX 7.14 (< OR =4); POTASSIUM SERUM 3.1 MEQ/L (3.5-5.1); SODIUM LEVEL 136 MEQ/L (136-145); TROPONIN I < 0.02 NG/ML (< 0.10)
[2020-09-04] MEDS ORDERED: MAG SULF 1GM/100ML (MAG RUN) 1 GM in IV 1 EA IV ONE (22:15)
[2020-09-04] MEDS ORDERED: POTASSIUM CHLORIDE 10 MEQ SR TABLET PO ONE (22:15)
--- NOTE | 2020-09-04 22:17 | REPVR ---
PROCEDURE INFORMATION: Exam: CT Head Without Contrast Exam date and time: 09/04/2020 9:57 PM Age: 74 years old Clinical indication: Pain; Headache; Additional info: Headache weakness TECHNIQUE: Imaging protocol: Computed tomography of the head without contrast. Radiation optimization: All CT scans at this facility use at least one of these dose optimization techniques: automated exposure control; mA and/or kV adjustment per patient size (includes targeted exams where dose is matched to clinical indication); or iterative reconstruction. COMPARISON: CT Head without contrast 02/18/2020 6:27 AM FINDINGS: Brain: Minimal decreased attenuation of the supratentorial white matter is likely secondary to chronic microvascular ischemia. No acute intracranial hemorrhage. Cerebral ventricles: Ventricular and subarachnoid spaces are age appropriate. Bones/joints: Unremarkable. No acute fracture. Paranasal sinuses: Small volume of nonspecific sphenoid sinus fluid. Mastoid air cells: Visualized mastoid air cells are well aerated. Vasculature: Intracranial vascular calcification. Soft tissues: Unremarkable. IMPRESSION: 1. No acute intracranial abnormality. 2. Small volume of nonspecific sphenoid sinus fluid. Finding can be seen within the setting of acute sinusitis. Electronically signed by: Isaac Goetz On 09/04/2020 22:18:08 PM
[2020-09-04] MEDS ORDERED: ONDANSETRON 4MG/2ML VIAL IV ONE (23:05)
--- NOTE | 2020-09-04 23:52 | IPNPDOC ---
Text Note Date of Service The patient was seen on 09/04/20. NOTE time of service 1158pm Ms. Guerra is a 74 yr old w a hx of intrahepatic cholangiocarcinoma, UC, Grave's Disease complicated by iatrogenic hypothyroidism, RLE DVT w PE / left r enal vein thrombus, anxiety, depression, chronic debility and recent COVID infection who had chemo on Tuesday and presented w c/o weakness, palpitations, anorexia and BERGER. She will be admitted for palpitations 2/2 low Ma/K & dehydration. Her WBC # is high bc she received a colony stimulating med on A . rest per H&P VS,Fishbone, I+O VS, Fishbone, I+O Laboratory Tests 09/04/20 20:52 Vital Signs Date Time Temp Pulse Resp B/P (MAP) Pulse Ox O2 Delivery O2 Flow Rate FiO2 09/04/20 23:43 96 16 99 Room Air 09/04/20 23:30 133/63 (86) 09/04/20 21:10 98.3 TUSHAR AYALA MD Sep 04, 2020 23:52
[2020-09-04] MEDS ORDERED: FLUO20CA22 PO (23:56)
[2020-09-04] MEDS ORDERED: LIDO1PAD TOP (23:56)
[2020-09-04] MEDS ORDERED: ACET-897 PO (23:56)
[2020-09-04] MEDS ORDERED: SULF500T2 PO (23:56)
[2020-09-04] MEDS ORDERED: POTA10TA17 PO (23:56)
[2020-09-05 01:19] LABS: BLOOD UREA NITROGEN 15 MG/DL (7-18); CALCIUM LEVEL 9.3 MG/DL (8.8-10.2); CARBON DIOXIDE LEVEL 25 MEQ/L (21-32); CHLORIDE LEVEL 100 MEQ/L (98-107); CREATININE FOR GFR 0.89 MG/DL (0.55-1.30); GLOMERULAR FILTRATION RATE > 60.0 (>39); GLUCOSE, FASTING 103 MG/DL (70-100); POTASSIUM SERUM 3.2 MEQ/L (3.5-5.1); SODIUM LEVEL 134 MEQ/L (136-145)
[2020-09-05] MEDS ORDERED: NS 1,000 ML IV ONE (01:45)
[2020-09-05] MEDS ORDERED: ACETAMINOPHEN TAB 650MG DOSE (2X325MG) PO PRN (01:45)
[2020-09-05] MEDS ORDERED: MOM 30ML SUSPENSION UDC PO PRN (01:45)
[2020-09-05] MEDS ORDERED: MAALOX 30 ML SUSP *UDC PO PRN (01:45)
[2020-09-05] MEDS ORDERED: LIDOCAINE 5% (LIDODERM) PATCH TOP PRN (01:50)
[2020-09-05 02:02] LABS: MAGNESIUM LEVEL 1.5 MG/DL (1.8-2.4)
--- NOTE | 2020-09-05 02:05 | HPEPDOC ---
[facility] Medical History & Physical Date of Admission Sep 04, 2020 Date of Service: Sep 04, 2020 Attending Physician: TUSHAR AYALA MD History and Physical CHIEF COMPLAINT: Palpitations and shakes HISTORY OF PRESENT ILLNESS: Munira is a 74yo female w/ notable PMHx of metastatic cholangiocarcinoma (current ly on cisplatin/gemcitabine chemotherapy and is status post 4/8 cycles; with Pegfilgrastim), pulmonary embolism on Lovenox, ulcerative colitis, perf diverticulitis status post colostomy and reversal, Graves' disease hyperthyroidism with iatrogenic hypothyroidism status post radioactive iodine ablation 2, perforated diverticulitis, 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 ED late on the evening of 09/04 via EMS complaining of palpitations and headache. She reports that around 4 PM in the afternoon on 09/05 that, while laying down, her heart began to race and she had accompanying "terrible, whole body shakes"with a headache, felt "behind her eyes." As her whole body shakes began to worsen, and her anxiety related to the palpitations continued, her son called EMS. Upon presentation the ED, patient became nauseous and had 5 episodes of either nonbloody emesis or dry heaves. Of note, patient has had 3 prior admissions to [facility] and the last 3 months (since 06/02/2020). She usually develops dry heaves, nausea and headaches after her cycles of chemotherapy. Her most recent cycle of chemotherapy (her fourth overall) was on 09/04. While she has had the intermittent headaches since her last cycle, she had not had significant dry heaving or nausea until today. Pertinent laboratories in the ED revealed hypokalemia (potassium 3.1) and hypomagnesemia (magnesium 0.9), leukocytosis with 3% bandemia and neutrophil predominance (this been elevated as result of the growth colony-stimulating factor she receives, last dose 09/01/20), thrombocytopenia (platelets of 87; this is a chronic issue), and chronic stable anemia (hemoglobin 9.3. An EKG showed normal sinus rhythm. Per ED reports, patient was near syncope and a CT head was ordered which showed no acute intracranial abnormalities. A 2 view chest x-ray showed no acute pathology either. She was subsequently administered oral potassium chloride supplementation, intravenous magnesium supplementation, and intravenous Zofran. She was subsequently admitted under the care of the hospitalist service for palpitations, leukocytosis, and presyncope. Upon the time of admitting evaluation, she continued to have nausea and vomiting. Due to QTC of 485 on intake EKG, when necessary Compazine was added to regimen. A repeat metabolic panel showed improved magnesium of 1.9, with only very slight improvement in her potassium to 3.2. The decreased improvement in potassium was thought to be secondary to the emesis and decreased absorption of the oral supplement. Intravenous potassium supplementation was then ordered. Intravenous fluids were also initiated in the setting of dehydration from emesis. 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 Follows with Dr. Garcia at the [facility]. Ulcerative colitis Perforated diverticulitis status post colostomy and reversal Graves' disease hyperthyroidism with iatrogenic hypothyroidism status post radioactive iodine ablation 2. Pulmonary embolism on Lovenox. Right lower extremity DVT. Osteoporosis. Type 2 diabetes prior to recent weight loss. Nephrolithiasis. History of UTIs. History of MRSA prior to the colon resection with colostomy status post reversal . Left portal vein thrombosis. Left renal vein thrombosis. Anxiety and depression Chronic debility, uses a walker now at baseline. Former smoker. Positive covid in April 2020 PAST SURGICAL HISTORY: Right port placement, spring 2020 Status post right internal jugular vein [id number] placement in June 2020 that is since been removed. Radioactive iodine ablation 2. Bilateral total knee arthroplasties. Rectocele repair. Neck signs. Ventral hernia repair. Liver biopsy in April 2021 2. Defined cholangiocarcinoma. Stool transplant. Colon resection with colostomy status post reversal SOCIAL HISTORY: . She is a and currently lives with her sonTere Islas in [place]. She formerly worked at the [facility] [employer]. She is a former smoker having quit roughly 20 years ago after smoking a half a pack cigarettes a day for 15 years Denies any significant alcohol use. Denies any current or former licit or IV drug use FAMILY HISTORY: Father: at 78 years old; coronary artery disease, hypertension Mother: at 93 years old; medical issues unknown ALLERGIES: Please see below. REVIEW OF SYSTEMS: CONSTITUTIONAL: Reports full body shakes and some recent weight loss secondary to decreased intake. She reports as being very weak overall. Denies any fever. HEENT: Denies blurry vision or double vision. Denies tinnitus CARDIOVASCULAR: Reports palpitations, but denies any chest pain or chest pressure RESPIRATORY: Denies shortness of breath, cough, or pleuritic chest pain GASTROINTESTINAL: Reports nausea and vomiting/dry heaving that began upon ED presentation, but has been a chronic issue following chemotherapy over the last 3 months. Denies any abdominal pain, constipation, diarrhea, or blood in stool. GENITOURINARY: Denies any dysuria or hematuria MUSCULOSKELETAL: Overall, she reports generalized weakness and decreased muscle strength. She uses a walker to ambulate NEUROLOGICAL: Reports chronic intermittent headache that is localized behind her eyes. Denies any numbness or tingling of extremities. PSYCHIATRIC: Reports feeling anxious and depressed. ENDOCRINE: Reports cold intolerance HEMATOLOGIC: Denies any easy bleeding or bruising. LYMPHATIC: Denies any new lumps or bumps HOME MEDICATIONS: Please see below. PHYSICAL EXAMINATION: VITAL SIGNS: Please see below. GENERAL APPEARANCE: Elderly female who appears in moderate distress due to active retching. She is ill-appearing. She is lying upright in bed. Alert and oriented 3. HEENT: Normocephalic, atraumatic. There is some general bronzing of her skin. There is some mild scleral icterus. Conjunctival pallor. PERRLA. ORAL CAVITY: Wearing upper and lower dentures. Moist mucous membranes. No frontal erythema or exudate. NECK: No lymphadenopathy appreciated. Trachea is midline. CARDIOVASCULAR: Tachycardic rate, regular rhythm. On monitor, she is sinus tachycardia. Normal S1, S2. No murmurs or rubs are appreciated. LUNGS: Somewhat diminished tidal volume. No adventitious breath sounds. Appreciate. Symmetric chest expansion. CHEST: No chest wall tenderness. There is a port present in the right upper chest. ABDOMEN: There is a prominent midline ventral incisional scar with one section of mild irritation. There is bandaging over the right lower quadrant where patient had recent tube. Normoactive bowel sounds throughout. Diffuse mild tenderness without any rigidity. No hepatosplenomegaly appreciated. EXTREMITIES: Overall, there is some mild bronzing of the skin. There is bilater al lower extremity edema that is about 1+ distally. Anterior mak quite tender. 2+ radial pulses bilaterally. NEUROLOGICAL: Alert and oriented 3. No focal deficits appreciated. No dysarthric speech. PSYCHIATRIC: Anxious, and exasperated mood at times. Affect appears appropriate. LABORATORY DATA: Please see below. IMAGING: Two-view chest x-ray, 09/04/20 FINDINGS: Lungs: Unremarkable. No consolidation. Pleural spaces: Unremarkable. No pleural effusion. No pneumothorax. Heart/Mediastinum: Unremarkable. No cardiomegaly. Vasculature: MediPort catheter tip in the superior vena cava. Diaphragm: Elevated right hemidiaphragm secondary to a large eventration. Bones/joints: The spine demonstrates moderate degenerative changes. Osteoporosis. IMPRESSION: No acute findings. CT head without contrast, 09/04/20 IMPRESSION: 1. No acute intracranial abnormality. 2. Small volume of nonspecific sphenoid sinus fluid. Finding can be seen within the setting of acute sinusitis. MICROBIOLOGY: Please see below. ASSESSMENT & PLAN: This is a 74yo female w/ notable h/o intrahepatic cholangiocarcinoma on chemotherapy with growth colony-stimulating factor, prior PE on Lovenox, ulcerative colitis, perforated diverticulitis status post colostomy and reversal, chronic thrombocytopenia, and anemia of chronic disease, who presented to the [facility] ED on 09/04/20 via EMS complaining of palpitations, headache and generalized weakness weakness. She was admitted primarily for electrolyte supplementation in the setting palpitations and near syncope from dehydration. #Palpitations secondary to hypokalemia and hypomagnesemia -Initial potassium of 3.1, initial magnesium of 0.9 -Supplementation of both potassium and magnesium with follow-up BMP is ordered. Repeat supplementation intravenously due to active emesis. -On telemetry -Once nausea and vomiting improves, and she is tolerating oral medications better, would then advise continuing her home oral potassium supplementation -During most recent admission last month, she also was hypokalemic and hypomagnesemic -Abnormalities are likely result of poor oral intake due to decreased appetite -Home torsemide was not initially continued due to hypokalemia #Leukocytosis 2/2 to pegfilgrastim -Initial WBC 41.3 with 3% bands and 92% neutrophils -Repeat CBC with differential ordered -This is been chronically elevated on her other recent hospital admissions, and is likely result of her growth colony stimulating factor -Last dose of pegfilgrastim was on 09/01 #Presyncope secondary to dehydration from poor oral intake and postchemotherapy emesis -EKG showed normal sinus rhythm -On telemetry -Fall risk precautions with assisted ambulation only; patient uses a walker at baseline #Nausea and vomiting -Patient was given a couple intravenous doses of Zosyn with little improvement. Due to QTC of 485 on intake EKG, when necessary Compazine was added as this is an anti-medic, which does not prolong QT. -Once vomiting is better controlled, may continue her home oral Zofran provided repeat EKG QTC is not significantly elongated #Intrahepatic cholangiocarcinoma without evidence of brain metastases. Just completed cycle 4 of cisplatin and gemcitabine on 08/25/20. -Follows with Dr. Garcia at the [facility] -June 2020. Brain MRA showed no metastases -Per most recent medical oncology note on 08/25, tumor markers showing a decreasing trend suggesting she is having a positive response to chemotherapy. She is to complete a CT scan shortly to assess her response to the chemotherapy further. Should she have a positive response, the goal being to complete the total 8 cycles of chemotherapy. Should the follow-up CT show progressive disease, per Dr. Garcia, patient and Dr. Garcia will collaboratively decide on systemic treatment options or supportive care only #History of PE on Lovenox/left renal vein thrombosis/left portal vein thrombosis/history of right lower extremity DVT -She takes 80 mg subcutaneous dosing at home. Based on 1 yasmin per cake dosing, patient's weight is now down at 65 kg, and this will be adjusted by pharmacy -Port to monitor her platelet count and check for bleeding. Per Dr. Garcia (patient's oncologist) Lovenox is to be stopped if platelet count gets below 50,000 or she should develop bleeding #Anemia of chronic disease -Hemoglobin of 9.3. There is no acute indication for blood transfusion at this time. #History of Graves' disease/hyperthyroidism status post radioactive iodine ablation with iatrogenic hypothyroidism -On Synthroid. Initial TSH elevated at 4.91 with T4 within normal limits #Ulcerative colitis -Continue home medications #Covid 19 +05/31/20. Patient is asymptomatic from respiratory standpoint is afebrile. She never received any IV immunoglobulin. She has completed both coronavirus vaccinations. #DVT prophylaxis: Home therapeutic Lovenox continued. Vital Signs Vital Signs Date Time Temp Pulse Resp B/P (MAP) Pulse Ox O2 Delivery O2 Flow Rate FiO2 09/04/20 23:43 96 16 99 Room Air 09/04/20 23:30 133/63 (86) 09/04/20 21:10 98.3 Laboratory Data Labs 24H Laboratory Tests 2 09/04/20 20:52: Immature Granulocyte % (Auto) , Neutrophils (%) (Auto) , Nucleated Red Blood Cells % (auto) 0.0, Neutrophils 92H, Band Neutrophils 3, Lymphocytes (Manual) 5L, Hypochromasia 1+, Anisocytosis 1+, Dohle Bodies 1+, Platelet Estimate DECREASED, Immature Platelet Fraction 5.9, Prothrombin Time 13.6, Prothromb Time International Ratio 1.02, Activated Partial Thromboplast Time 38.3, Anion Gap 10, Glomerular Filtration Rate > 60.0, Calcium Level 8.9, Magnesium Level 0.9*L, Total Creatine Kinase 14L, Creatine Kinase MB < 1.0, Creatine Kinase MB Relative Index 7.14H, Troponin I < 0.02, Thyroid Stimulating Hormone (TSH) 4.910H, Free Thyroxine 1.36 09/05/20 00:34: Anion Gap 9, Glomerular Filtration Rate > 60.0, Calcium Level 9.3, Magnesium Level 1.5L CBC/BMP Laboratory Tests 09/04/20 20:52 09/05/20 00:34 Microbiology Microbiology 09/04/20 Respiratory Virus Panel (PCR) (JARET) - Final, Complete Home Medications Scheduled Enoxaparin Sodium (Lovenox) 80 Mg/0.8 Ml Syringe, 80 MG SC BID Famotidine (Famotidine) 20 Mg Tablet, 1 TAB PO BID Fluoxetine Hcl (Fluoxetine HCl) 20 Mg Capsule, 20 MG PO DAILY Levothyroxine Sodium (Levothyroxine Sodium) 88 Mcg Tablet, 88 MCG PO DAILY Pegfilgrastim-Bmez (Ziextenzo) 6 Mg/0.6 Ml Syringe, 6 MG SQ ASDIRECTED Inject on Day 9 Chemotherapy Potassium Chloride (Potassium Chloride) 10 Meq Cap, 10 MEQ PO DAILY Potassium Chloride (Potassium Chloride) 10 Meq Tab.er.prt, 10 MEQ PO DAILY Scopolamine (Transderm-Scop) 1 Each Patch.td.3, 1.5 MG TOP Q3RD Sulfasalazine (Sulfasalazine) 500 Mg Tablet, 1,000 MG PO BID Torsemide (Torsemide) 10 Mg Tablet, 10 MG PO DAILY Scheduled PRN Acetaminophen (Tylenol Extra Strength) 500 Mg Tablet, 1,000 MG PO TID PRN for PAIN Lidocaine (Lidocaine) 5% Adh..patch, 1 PATCH TOP DAILY PRN for PAIN Ondansetron HCl (Ondansetron HCl) 8 Mg Tablet, 8 MG PO Q8H PRN for NAUSEA OR VOMITING Allergies Coded Allergies: No Known Drug Allergies (Verified Allergy, Unknown, 02/27/19) A-FIB/CHADSVASC A-FIB History Current/History of A-Fib/PAF?: No Current PO Anticoag Therapy: No GME ATTESTATION GME ATTESTATION My faculty preceptor for this patient encounter was physically present during the encounter and was fully available. All aspects of the patient interview, examination, medical decision making process, and medical care plan development were reviewed and approved by the faculty preceptor. The faculty preceptor is aware and concurs with the plan as stated in the body of this note and will attest to such by his/her cosignature. ATTENDING NOTE time of service 1158pm Ms. Guerra is a 74 yr old w a hx of intrahepatic cholangiocarcinoma, UC, Grave's Disease complicated by iatrogenic hypothyroidism, RLE DVT w PE / left renal vein thrombus, anxiety, depression, chronic debility and recent COVID infection who had chemo on Tuesday and presented w c/o weakness, palpitations, anorexia and BERGER. She will be admitted for palpitations 2/2 low Ma/K & dehydration. Her WBC # is high bc she received a colony stimulating med on . rest per H&P ANKUSH DIOP D.O. Sep 05, 2020 02:05 TUSHAR AYALA MD Sep 05, 2020 07:20
[2020-09-05] MEDS ORDERED: ONDANSETRON 4MG/2ML VIAL IV ONE (02:25)
[2020-09-05] MEDS ORDERED: MAG SULF 1GM/100ML (MAG RUN) 1 GM in IV 1 EA IV ONE ×2 (02:30→08:00)
[2020-09-05] MEDS ORDERED: KCL 20MEQ IN 100ML SWI (KRUN) 20 MEQ in IV 1 EA IV SCH ×2 (03:00)
[2020-09-05 04:00] VITALS: BP 147/60
[2020-09-05] MEDS ORDERED: PROCHLORPERAZINE 10MG/2ML VIAL (J0780 PER 1) IV PRN (04:15)
[2020-09-05 04:50] VITALS: BP 147/60
[2020-09-05] MEDS: KCL 10MEQ/100ML SWI (KRUN) SINGLE DOSE IV SCH ×8 (05:30→11:10)
[2020-09-05] MEDS ORDERED: LEVOTHYROXINE 88MCG TABLET (0.088 MG) PO SCH (06:00)
[2020-09-05] MEDS ORDERED: ONDANSETRON 4 MG TAB PO PRN (06:00)
--- NOTE | 2020-09-05 07:38 | IPNPDOC ---
Date Seen The patient was seen on 09/05/20. Progress Note SUBJECTIVE: c/o n w/o vomiting, weakness w/o mm spasms. k and mg still low tele wnl. OBJECTIVE PHYSICAL EXAMINATION: VITAL SIGNS: Please see below. GENERAL: lying on left side in position. no distress HEENT: no jvd moist mm CARDIOVASCULAR: s1s2 rrr RESPIRATORY: ctab ABDOMINAL: +bs soft nt nd EXTREMITIES: no edema LABORATORY DATA, IMAGING STUDIES, MICROBIOLOGY: Please see below. ASSESSMENT AND PLAN: 74 yr old w a hx of intrahepatic cholangiocarcinoma, UC, Grave's Disease complicated by iatrogenic hypothyroidism, RLE DVT w PE / left renal vein thrombus, anxiety, depression, chronic debility and recent COVID infection who had chemo on Tuesday and presented w c/o weakness, palpitations, anorexia and BERGER. She will be admitted for palpitations 2/2 low Ma/K & dehydration. PROBLEMS: hypomagnesemia hypokalemia neupogen-induced leukocytosis chemo-induced n/v dehydration intrahepatic cholangiocarcinoma UC Grave's Disease complicated by iatrogenic hypothyroidism RLE DVT w PE / left renal vein thrombus anxiety, depression, chronic debility and 05/11 COVID infection PLAN: antiemetics, ivfluids, no signs of acute infection. monitor esr,crp, procalcitonin and fevers. supplement k, mg, recheck later. PT/OT. dc in 24hrs. VS, I&O, 24H, Fishbone Vital Signs/I&O Vital Signs Date Time Temp Pulse Resp B/P (MAP) Pulse Ox O2 Delivery O2 Flow Rate FiO2 09/05/20 04:50 97.4 80 19 147/60 (89) 98 Room Air I&O- Last 24 Hours up to 6 AM 09/05/20 06:00 Intake Total 1150 ml Balance 1150 ml Laboratory Data 24H LABS Laboratory Tests 2 09/04/20 20:52: Immature Granulocyte % (Auto) , Neutrophils (%) (Auto) , Nucleated Red Blood Cells % (auto) 0.0, Neutrophils 92H, Band Neutrophils 3, Lymphocytes (Manual) 5L, Hypochromasia 1+, Anisocytosis 1+, Dohle Bodies 1+, Platelet Estimate DECREASED, Immature Platelet Fraction 5.9, Prothrombin Time 13.6, Prothromb Time International Ratio 1.02, Activated Partial Thromboplast Time 38.3, Anion Gap 10, Glomerular Filtration Rate > 60.0, Calcium Level 8.9, Magnesium Level 0.9*L, Total Creatine Kinase 14L, Creatine Kinase MB < 1.0, Creatine Kinase MB Relative Index 7.14H, Troponin I < 0.02, Thyroid Stimulating Hormone (TSH) 4.910H, Free Thyroxine 1.36 09/05/20 00:34: Anion Gap 9, Glomerular Filtration Rate > 60.0, Calcium Level 9.3, Magnesium Level 1.5L CBC/BMP Laboratory Tests 09/04/20 20:52 09/05/20 00:34 Microbiology Microbiology 09/04/20 Respiratory Virus Panel (PCR) (JARET) - Final, Complete CARTER MORA MD Sep 05, 2020 07:38
[2020-09-05 08:00] VITALS: BP 113/55
[2020-09-05] MEDS ORDERED: POTASSIUM CHLORIDE 10 MEQ SR TABLET PO ONE (08:00)
[2020-09-05] MEDS: ENOXAPARIN 60MG/0.6ML SYRINGE (J1650 PER 10MG) SC SCH ×2 (08:36→08:39)
[2020-09-05] MEDS ORDERED: FLUoxetine 20 MG CAP PO SCH (09:00)
[2020-09-05] MEDS ORDERED: SCOPOLAMINE 1MG TRANSDERMAL PATCH TOP SCH (09:00)
[2020-09-05] MEDS ORDERED: ENOXAPARIN 80MG/0.8ML SYRINGE (J1650 PER 10MG) SC SCH (09:00)
[2020-09-05] MEDS ORDERED: sulfaSALAzine 500 MG TABEC PO SCH (09:00)
[2020-09-05] MEDS ORDERED: FAMOTIDINE 20 MG TAB PO SCH (09:00)
[2020-09-05 12:00] VITALS: BP 109/61
[2020-09-05 13:15] LABS: HEMATOCRIT 27.2 % (36.0-47.0); HEMOGLOBIN 8.5 g/dl (12.0-15.5); MEAN CORPUSCULAR HEMOGLOBIN 28.9 pg (27.0-33.0); MEAN CORPUSCULAR HGB CONC 31.3 g/dl (32.0-36.5); MEAN CORPUSCULAR VOLUME 92.5 fl (80.0-96.0); RED BLOOD COUNT 2.94 10^6/uL (4.00-5.40)
[2020-09-05 13:17] LABS: PLATELET COUNT, AUTOMATED 77 10^3/uL (150-450); WHITE BLOOD COUNT 38.3 10^3/uL (4.0-10.0)
[2020-09-05 13:33] LABS: LYMPHOCYTES 3 % (16-44); NEUTROPHILS 97 % (28-66)
[2020-09-05 13:34] LABS: PLATELET ESTIMATE DECREASED (NORMAL)
[2020-09-05 13:37] LABS: ALBUMIN 2.8 GM/DL (3.2-5.2); ALT/SGPT 8 U/L (12-78); BILIRUBIN,TOTAL 0.2 MG/DL (0.2-1.0); BLOOD UREA NITROGEN 13 MG/DL (7-18); CALCIUM LEVEL 9.1 MG/DL (8.8-10.2); CARBON DIOXIDE LEVEL 24 MEQ/L (21-32); CHLORIDE LEVEL 107 MEQ/L (98-107); CREATININE FOR GFR 0.74 MG/DL (0.55-1.30); GLOMERULAR FILTRATION RATE > 60.0 (>39); GLUCOSE, FASTING 92 MG/DL (70-100); MAGNESIUM LEVEL 2.2 MG/DL (1.8-2.4); POTASSIUM SERUM 4.7 MEQ/L (3.5-5.1); POTASSIUM SERUM 4.8 MEQ/L (3.5-5.1); SODIUM LEVEL 136 MEQ/L (136-145); TOTAL PROTEIN 5.9 GM/DL (6.4-8.2)
[2020-09-05] MEDS ORDERED: SYNT88TA2 PO (15:25)
--- NOTE | 2020-09-05 15:47 | DS.PDOC ---
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 She was admitted for low potassium, magnesium and dehydration. She was given potassium, magnesium, a nd ivfluids with resolution of her electrolyte abnormalities. She had no other complaints and passed HSE by physical therapy. DISCHARGE PHYSICAL EXAMINATION: VITAL SIGNS: Please see below. GENERAL: lying on left side in position. no distress HEENT: no jvd moist mm CARDIOVASCULAR: s1s2 rrr RESPIRATORY: ctab ABDOMINAL: +bs soft nt nd EXTREMITIES: no edema DISCHARGE LABORATORY DATA, IMAGING STUDIES, MICROBIOLOGY: Please see below. TIME SPENT ON DISCHARGE 30 MIN Vital Signs/I&Os Vital Signs Date Time Temp Pulse Resp B/P (MAP) Pulse Ox O2 Delivery O2 Flow Rate FiO2 09/05/20 12:00 97.4 83 19 109/61 (77) 100 Room Air I&O- Last 24 Hours up to 6 AM 09/05/20 06:00 Intake Total 1150 ml Output Total 100 ml Balance 1050 ml Laboratory Data Labs 24H Laboratory Tests 2 09/04/20 20:52: Immature Granulocyte % (Auto) , Neutrophils (%) (Auto) , Nucleated Red Blood Cells % (auto) 0.0, Neutrophils 92H, Band Neutrophils 3, Lymphocytes (Manual) 5L, Hypochromasia 1+, Anisocytosis 1+, Dohle Bodies 1+, Platelet Estimate DECREASED, Immature Platelet Fraction 5.9, Prothrombin Time 13.6, Prothromb Time International Ratio 1.02, Activated Partial Thromboplast Time 38.3, Anion Gap 10, Glomerular Filtration Rate > 60.0, Calcium Level 8.9, Magnesium Level 0.9*L, Total Creatine Kinase 14L, Creatine Kinase MB < 1.0, Creatine Kinase MB Relative Index 7.14H, Troponin I < 0.02, Thyroid Stimulating Hormone (TSH) 4.910H, Free Thyroxine 1.36 09/05/20 00:34: Anion Gap 9, Glomerular Filtration Rate > 60.0, Calcium Level 9.3, Magnesium Le lukas 1.5L 09/05/20 12:54: Immature Granulocyte % (Auto) , Neutrophils (%) (Auto) , Nucleated Red Blood Cells % (auto) 0.0, Neutrophils 97H, Lymphocytes (Manual) 3L, Platelet Estimate DECREASED, Anion Gap 5L, Glomerular Filtration Rate > 60.0, Calcium Level 9.1, Magnesium Level 2.2, Red Blood Cell Morphology NORMAL, Total Bilirubin 0.2, Aspartate Amino Transf (AST/SGOT) 5L, Alanine Aminotransferase (ALT/SGPT) 8L, Alkaline Phosphatase 192H, Total Protein 5.9L, Albumin 2.8L, Albumin/Globulin Ratio 0.9L CBC/BMP Laboratory Tests 09/04/20 20:52 09/05/20 00:34 09/05/20 12:54 Microbiology Microbiology 09/04/20 Respiratory Virus Panel (PCR) (JARET) - Final, Complete Discharge Medications Scheduled Enoxaparin Sodium (Lovenox) 80 Mg/0.8 Ml Syringe, 80 MG SC BID, (Reported) Famotidine (Famotidine) 20 Mg Tablet, 1 TAB PO BID Fluoxetine Hcl (Fluoxetine HCl) 20 Mg Capsule, 20 MG PO DAILY, (Reported) Levothyroxine Sodium (Synthroid) 88 Mcg Tablet, 88 MCG PO DAILY@0600 Pegfilgrastim-Bmez (Ziextenzo) 6 Mg/0.6 Ml Syringe, 6 MG SQ ASDIRECTED Inject on Day 9 Chemotherapy Potassium Chloride (Potassium Chloride) 10 Meq Cap, 10 MEQ PO DAILY, (Reported) Potassium Chloride (Potassium Chloride) 10 Meq Tab.er.prt, 10 MEQ PO DAILY, (Reported) Scopolamine (Transderm-Scop) 1 Each Patch.td.3, 1.5 MG TOP Q3RD, (Reported) Sulfasalazine (Sulfasalazine) 500 Mg Tablet, 1,000 MG PO BID, (Reported) Torsemide (Torsemide) 10 Mg Tablet, 10 MG PO DAILY, (Reported) Scheduled PRN Acetaminophen (Tylenol Extra Strength) 500 Mg Tablet, 1,000 MG PO TID PRN for PAIN, (Reported) Lidocaine (Lidocaine) 5% Adh..patch, 1 PATCH TOP DAILY PRN for PAIN, (Reported) Ondansetron HCl (Ondansetron HCl) 8 Mg Tablet, 8 MG PO Q8H PRN for NAUSEA OR VOMITING Allergies Coded Allergies: No Known Drug Allergies (Verified Allergy, Unknown, 02/27/19) CARTER MORA MD Sep 05, 2020 15:46
--- NOTE | 2020-09-05 19:49 | ECGEPIP ---
[facility] - ED Test Date: 2020-09-04 Pat Name: CARTER VEGA Department: Room: [place] [address] Gender: Female [employer] Operator: : [id number] Requested By: ALEJO Dumont Order Number: [id number] Reading MD: Yahaira Hurley Measurements Intervals [place] Rate: 82 P: 47 CO: 118 QRS: -12 QRSD: 98 T: 10 QT: 412 QTc: 481 Interpretive Statements Normal sinus rhythm Inferior infarct , age undetermined NSTTW abnormalities decreased rate 07/23/20 Electronically Signed on 09-05-2020 19:50:17 EDT by Yahaira Hurley
[2020-09-05] MEDS ORDERED: **NOTE PATIENT COMMENT** MISC XX SCH (21:00)
== END 2020-09-05 17:22 | disposition home or self-care (01) | DRG 641 ==
LOC: M ED 19:18 → M ED INP 23:07 → ENRESERV 09-05 03:33 → M PCU 09-05 04:50
PROVIDERS: ADMIT Internal Medicine; ATTEND General Practice
DX: E83.42 Hypomagnesemia (principal); C22.9 Malignant neoplasm of liver, not specified as primary or secondary; K51.90 Ulcerative colitis, unspecified, without complications; E87.6 Hypokalemia; E86.0 Dehydration; D72.829 Elevated white blood cell count, unspecified; E03.2 Hypothyroidism due to medicaments and other exogenous substances; Z92.21 Personal history of antineoplastic chemotherapy; R11.2 Nausea with vomiting, unspecified; F41.9 Anxiety disorder, unspecified; F32.9 Major depressive disorder, single episode, unspecified; R53.81 Other malaise; Z79.899 Other long term (current) drug therapy; Z79.01 Long term (current) use of anticoagulants; Z86.711 Personal history of pulmonary embolism

== ENCOUNTER → 2020-09-09 | Outpatient (CLI) | payer MEDICARE, OTHER ==
[~2020-09-09] MED LIST changes: +FLUO20CA22 PO; +GASTROGRAFIN SOLUTION 30ML (Q9963) As Ordered ONE; +ISOVUE-370 76% 100ML VIAL As Ordered ONE; +LIDO1PAD TOP; +POTA10TA17 PO; +PROC10TA4; -SODIUM CHLORIDE 0.9% INJ 10 ML SYR IV SCH; +SYNT88TA2 PO
--- NOTE | 2020-09-09 15:15 | REP ---
INDICATION: CHOLANGIOCARCINOMA. COMPARISON: Multiple the latest 07/24/2020 also after intravenous contrast administration TECHNIQUE: 100 cc Isovue 370 FINDINGS: Mediastinum and pulmonary tristian have not changed significantly. There is no mediastinal or hilar adenopathy. Are no pleural or pericardial effusions. There is no significant change in appearance of the imaged osseous structures. Evaluation of the lung spence shows no new abnormal nodules, masses, or opacities. IMPRESSION: No significant change from the prior exam. No evidence of acute intrathoracic disease <Electronically signed by Tai Spence > 09/09/20 [id number]
--- NOTE | 2020-09-09 15:23 | REP ---
INDICATION: CHOLANGIOCARCINOMA. COMPARISON: Multiple the latest 07/24/2020 TECHNIQUE: Standard helical technique after the intravenous administration of 100 cc Isovue 370 and oral bowel preparatory contrast administration. FINDINGS: Once again, there are gross liver masses of varying degrees of density and peripheral enhancement. This has not changed significantly compared to the prior exam. Once again, there is cholelithiasis. The gallbladder is hydropic. There is no significant change in appearance of the spleen, pancreas, adrenal glands, kidneys. There is no gross change in appearance of the bowel loops or the mesenteries. There is no evidence of free fluid or free air. There is no change in appearance of the abdominal aorta or para-aortic regions. There is no significant change in appearance of the imaged osseous structures. IMPRESSION: There has been no significant change compared to the prior exam. <Electronically signed by Tai Spence > 09/09/20 [id number]
== END ==
LOC: M RAD 12:40
PROVIDERS: ATTEND Internal Medicine Medical Oncology
DX: C22.1 Intrahepatic bile duct carcinoma (principal)
CPT/HCPCS: 71260; 74177; Q9963; Q9967

== ENCOUNTER → 2020-10-01 | Outpatient (CLI) | payer MEDICARE, OTHER ==
[~2020-10-01] MED LIST changes: +BACTDSTA PO; -GASTROGRAFIN SOLUTION 30ML (Q9963) As Ordered ONE; -ISOVUE-370 76% 100ML VIAL As Ordered ONE; +LEVO500T3 PO; +SODIUM CHLORIDE 0.9% INJ 10 ML SYR IV PRN; -SULF1TAB93 PO
[2020-10-01 12:27] LABS: ALBUMIN 2.8 GM/DL (3.2-5.2); ALT/SGPT < 6 U/L (12-78); BILIRUBIN,TOTAL 0.2 MG/DL (0.2-1.0); BLOOD UREA NITROGEN 9 MG/DL (7-18); CALCIUM LEVEL 10.2 MG/DL (8.8-10.2); CARBON DIOXIDE LEVEL 27 MEQ/L (21-32); CHLORIDE LEVEL 109 MEQ/L (98-107); CREATININE FOR GFR 0.66 MG/DL (0.55-1.30); GLOMERULAR FILTRATION RATE > 60.0 (>39); GLUCOSE, FASTING 93 MG/DL (70-100); POTASSIUM SERUM 3.8 MEQ/L (3.5-5.1); SODIUM LEVEL 140 MEQ/L (136-145); TOTAL PROTEIN 6.5 GM/DL (6.4-8.2)
== END ==
LOC: M ONCR 11:32
PROVIDERS: ATTEND General Practice
DX: C22.1 Intrahepatic bile duct carcinoma (principal)
CPT/HCPCS: 36591; 80053; J1642

== ENCOUNTER → 2020-10-08 | Outpatient (CLI) | payer MEDICARE, OTHER ==
[~2020-10-08] MED LIST changes: +PROHANCE 279.3MG/ML 15ML VIAL As Ordered ONE; -SODIUM CHLORIDE 0.9% INJ 10 ML SYR IV PRN
--- NOTE | 2020-10-08 15:18 | REP ---
INDICATION: CHOLANGIOCARCINOMA. Question are brain metastases on prior study, inconclusive. Follow-up exam. On chemotherapy. COMPARISON: Comparison MRI imaging is from May 17, 2020.. TECHNIQUE: Pre and post gadolinium enhanced imaging is acquired. Axial, coronal, and sagittal imaging planes are included. T1 and T2 weighted sequences include spin echo, fast spin echo, diffusion-weighted scans, FLAIR images and postcontrast images. Postcontrast 3D sequence with 1 mm images was acquired with axial coronal and sagittal plane reformations.. The gadolinium enhancement dose is 12 mL of intravenous ProHance. FINDINGS: No bony calvarial lesion is seen. Craniocervical junction upper cervical cord are unremarkable. There is no evidence of extra-axial fluid collection. Diffusion-weighted scans show no focus of restricted diffusion to suggest acute ischemia or other abnormality. There is a tiny old lacunar infarct in the periventricular white matter of the right parietal lobe unchanged. There is no visible intracranial mass lesion. On postcontrast images, there is no abnormal intracranial and enhancement seen. There is minimal unsharp this, possibly motion generated visible in today's images. Several of the previously noted foci of contrast enhancement on the 05/17/2020 study were tiny. These are not visible on today's study. There was a 7 mm somewhat linear focus in the right inferior cerebellar hemisphere on 05/17/2020. This is not apparent today. No new focus of contrast enhancement is appreciated. Enhancement is observed in expected vascular structures. No abnormal intracranial contrast enhancement is appreciated. 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 IMPRESSION: No evidence of intracranial metastasis on today's MR study. <Electronically signed by Sonny Rico > 10/08/20 [id number]
== END ==
LOC: M RAD 12:43
PROVIDERS: ATTEND General Practice
DX: C22.1 Intrahepatic bile duct carcinoma (principal)
CPT/HCPCS: 70553; A9576; J1642

== ENCOUNTER 2020-10-13 16:37 | Emergency (ER) | payer MEDICARE, OTHER ==
[~2020-10-13 16:37] MED LIST changes: -PROHANCE 279.3MG/ML 15ML VIAL As Ordered ONE
[2020-10-13] MEDS ORDERED: SCOP1PAT2 TOP (16:50)
[2020-10-13] MEDS ORDERED: PANTOPRAZOLE 40MG TAB (PROTONIX) PO ONE (18:55)
[2020-10-13] MEDS ORDERED: PROMETHAZINE INJ 25 MG/ML VIAL (J2550) IV ONE (18:55)
[2020-10-13] MEDS ORDERED: NS 1,000 ML IV SCH (18:55)
--- NOTE | 2020-10-13 19:25 | REP ---
INDICATION: Abdominal Pain COMPARISON: None. TECHNIQUE: Upright view of the chest with supine and upright views of the abdomen and pelvis. FINDINGS: Frontal upright view of the chest demonstrates stable elevation of the right hemidiaphragm and underlying liver. [id number] again identified with tip in the SVC. Cardiac silhouette is normal. No free air below diaphragm identified to suggest pneumoperitoneum. Supine and upright views of the abdomen and pelvis demonstrate nonspecific bowel gas pattern without obstruction or perforation. No abnormal calcifications. Skeletal structures are stable. IMPRESSION: Nonspecific bowel gas pattern. Chronic elevation to the right hemidiaphragm with underlying hepatomegaly. <Electronically signed by Zev Burleson > 10/13/201920
[2020-10-13] MEDS ORDERED: PANTOPRAZOLE 40MG VIAL (C9113 PER 1) IV ONE (19:50)
[2020-10-13 19:55] LABS: HEMATOCRIT 36.9 % (36.0-47.0); HEMOGLOBIN 11.7 g/dl (12.0-15.5); MEAN CORPUSCULAR HEMOGLOBIN 29.5 pg (27.0-33.0); MEAN CORPUSCULAR HGB CONC 31.7 g/dl (32.0-36.5); MEAN CORPUSCULAR VOLUME 93.2 fl (80.0-96.0); PLATELET COUNT, AUTOMATED 210 10^3/uL (150-450); RED BLOOD COUNT 3.96 10^6/uL (4.00-5.40); WHITE BLOOD COUNT 2.9 10^3/uL (4.0-10.0)
[2020-10-13 20:24] LABS: ATYPICAL LYMPH 6 % (0-5); BASOPHILS 4 % (0-1); LYMPHOCYTES 44 % (16-44); MONOCYTES 13 % (0-5); MYELOCYTES 2 % (0-0); NEUTROPHILS 31 % (28-66); PLATELET ESTIMATE NORMAL (NORMAL)
[2020-10-13 20:26] LABS: ANISOCYTOSIS 1+
[2020-10-13 20:29] LABS: ALBUMIN 3.3 GM/DL (3.2-5.2); ALT/SGPT 7 U/L (12-78); BILIRUBIN,DIRECT 0.1 MG/DL (0.0-0.2); BILIRUBIN,TOTAL 0.5 MG/DL (0.2-1.0); BLOOD UREA NITROGEN 8 MG/DL (7-18); CALCIUM LEVEL 9.7 MG/DL (8.8-10.2); CARBON DIOXIDE LEVEL 29 MEQ/L (21-32); CHLORIDE LEVEL 106 MEQ/L (98-107); CREATININE FOR GFR 0.84 MG/DL (0.55-1.30); GLOMERULAR FILTRATION RATE > 60.0 (>39); GLUCOSE, FASTING 107 MG/DL (70-100); LIPASE 91 U/L (73-393); POTASSIUM SERUM 3.5 MEQ/L (3.5-5.1); SODIUM LEVEL 142 MEQ/L (136-145); TOTAL PROTEIN 6.9 GM/DL (6.4-8.2)
[2020-10-13] MEDS ORDERED: METOCLOPRAMIDE INJ 10MG/2ML VIAL (J2765 PER 1) IV ONE (21:45)
[2020-10-13 23:00] VITALS: BP 148/66
== END 2020-10-13 23:28 | disposition home or self-care (01) ==
LOC: M ED 16:37
DX: R11.2 Nausea with vomiting, unspecified (principal); R16.0 Hepatomegaly, not elsewhere classified; I10 Essential (primary) hypertension; Z79.899 Other long term (current) drug therapy

== ENCOUNTER → 2020-10-15 | Outpatient (CLI) | payer MEDICARE, OTHER ==
--- NOTE | 2020-10-15 15:34 | RADONC ---
Radiation Oncology Hx/FUP Radiation Oncology Hx/FUP Date of Service: October 15, 2020 Pt Identifier Munira Guerra is a 74 year old female seen for a followup visit today at the department of radiation oncology for a history of [id number] intrahepatic cholangiocarcinoma and a question of brain metastases on MRI from 05/17/20. There was no suggestion of any brain lesions on MRA from 07/08/20. We then decided to repeat MRI in 3 months. She is seen today to review her recent surveillance MRI head. Diagnosis/Treatment History Oncologic History Presented in Fall 2019 with suspected liver abscesses abdominal pain and distension. Due to persistent symptoms she was transferred to [facility] for liver biopsy which was performed on 05/15/20 and returned adenocarcinoma consistent with cholangiocarcinoma clinically. She had a CT abdomen with contrast on 05/16/20 which revealed extensive BL liver lesions (the largest is 11 x 10 cm) as well as numerous venous thrombi. She had no evidence of regional adenopathy on this study. She had an MRI head on 05/17/21 which showed small old infarcts as well as several punctate foci of enhancement, (4) in the right superior frontal lobe, (1) left posterior parietal, and (1) right cerebellar. These were read as indeterminate. The technical quality of the MRI was excellent. She had a repeat CT abdomen and pelvis on 05/31/20 which re- demonstrated the liver masses as well as showing a new metastatic looking soft tissue focus in the right anterior abdominal wall about the 5th and 6th ribs, which may represent seeding along the needle tract from her liver biopsy or a drain. She received cycle 1 of gem/cis at [facility] on 06/06/20. She was admitted to [facility] for weakness and progression of DVT/new PE on 06/18/20. She transferred oncologic care to [facility] and continued chemotherapy with Dr. Worley she is now s/p cycle 6 on 10/06/20. Recent data: 10/08/20 MRI brain FINDINGS: No bony calvarial lesion is seen. Craniocervical junction upper cervical cord are unremarkable. There is no evidence of extra-axial fluid collection. Diffusion-weighted scans show no focus of restricted diffusion to suggest acute ischemia or other abnormality. There is a tiny old lacunar infarct in the periventricular white matter of the right parietal lobe unchanged. There is no visible intracranial mass lesion. On postcontrast images, there is no abnormal intracranial and enhancement seen. There is minimal unsharp this, possibly motion generated visible in today's images. Several of the previously noted foci of contrast enhancement on the 05/17/2020 study were tiny. These are not visible on today's study. There was a 7 mm somewhat linear focus in the right inferior cerebellar hemisphere on 05/17/2020. This is not apparent today. No new focus of contrast enhancement is appreciated. Enhancement is obs erved in expected vascular structures. No abnormal intracranial contrast enhancement is appreciated. 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 IMPRESSION: No evidence of intracranial metastasis on today's MR study. Interval History Munira is here with her son. Overall she is eating well aside from some nausea, related to intermittent dizziness, they are working on eliminating medication as a cause of this systematically. She notes far less swelling in her legs in recent weeks, also notes she has almost no abdominal pain. Overall she is feeling the best she has since her diagnosis. She denies any neurological symptoms. Current Therapy [place]/cis s/p cycle 6 (plan for 8) Stage [id number] (unlcear if right anterior chest wall implant is direct extension from primary or metastasis Social History: 20+ pack year former smoker quit ~1999 Does not drink alcohol Allergies / Meds Allergies: Coded Allergies: No Known Drug Allergies (Verified Allergy, Unknown, 02/27/19) Home Meds Active Scripts Scopolamine (Transderm-Scop) 1 Each Patch.td.3, 1.5 MG TOP Q3RD, #10 PATCH 2 Refills Prov:GAY WORLEY MD 10/13/20 Pegfilgrastim-Bmez (Ziextenzo) 6 Mg/0.6 Ml Syringe, 6 MG SQ ASDIRECTED, #7 SYRINGE Inject on Day 9 Chemotherapy Prov:GAY WORLEY MD 09/22/20 Famotidine (Famotidine) 20 Mg Tablet, 1 TAB PO BID for 30 Days, #60 TAB 1 Refill Prov:GAY WORLEY MD 08/25/20 Levothyroxine Sodium (LEVOTHYROXINE SODIUM) 88 Mcg Tablet, 88 MCG PO DAILY for 30 Days, #30 TAB 3 Refills Prov:GAY WORLEY MD 08/25/20 Ondansetron HCl (Ondansetron HCl) 8 Mg Tablet, 8 MG PO Q8H PRN for NAUSEA OR VOMITING for 30 Days, #90 TAB Prov:GAY WORLEY MD 08/15/20 Reported Medications Covid-19 Vacc,Mrna(Moderna)/Pf (Moderna Covid19 Vacc(Unapprov)) 100 Mcg/0.5 Ml Vial, 100 MCG IM, VIAL 09/15/20 Sulfasalazine (Sulfasalazine) 500 Mg Tablet, 1000 MG PO BID, TAB 09/04/20 Potassium Chloride (Potassium Chloride) 10 Meq Tab.er.prt, 10 MEQ PO DAILY, TAB 09/04/20 Acetaminophen (Tylenol Extra Strength) 500 Mg Tablet, 1000 MG PO TID PRN for VIN N, TAB 09/04/20 Fluoxetine Hcl (Fluoxetine HCl) 20 Mg Capsule, 20 MG PO DAILY, CAP 09/04/20 Torsemide (Torsemide) 10 Mg Tablet, 10 MG PO DAILY 06/18/20 Enoxaparin Sodium (Lovenox) 80 Mg/0.8 Ml Syringe, 80 MG SC BID, SYRINGE 05/31/20 Potassium Chloride (Potassium Chloride) 10 Meq Cap, 10 MEQ PO DAILY, CAP 02/10/18 Discontinued Reported Medications Lidocaine (Lidocaine) 5% Adh..patch, 1 PATCH TOP DAILY PRN for PAIN 09/04/20 Review of Systems Review of Systems General: Reports: Fatigue, Normal Appetite Constitutional: Denies: Weight Loss Eyes: Denies: Pain, Vision change HEENT: Denies: Head Aches Skin: Denies: Rash Pulmonary: Denies: Dyspnea Cardiovascular: Denies: Chest Pain, Palpitations Gastrointestinal: Reports: Nausea, Vomiting; Denies: Abdominal Pain, Melena, Hematochezia Genitourinary: Denies: Dysuria, Frequency Hematologic: Denies: Bruising, Bleeding Excessively Musculoskeletal: Denies: Neck pain, Back pain Neurological: Denies: Weakness, Numbness, Confusion Psych: Reports: Mood Normal Physical Examination Vital Signs Ht 58" Wt 138 lbs T 98 P 94 RR 18 BP 146/93 O2 96% Pain 0 Fatigue 1 General Exam: Positive: Alert, Cooperative, No Acute Distress Eye Exam: Positive: PERRLA, EOMI ENT EXAM: Positive: Atraumatic, Mucous membr. moist/pink (No sub frenulum jaundice) Neck Exam: Positive: Supple Chest Exam: Positive: Clear to auscultation, Normal air movement Heart Exam: Positive: Rate Normal, Regular Rhythm Abdomen Exam: Positive: Normal bowel sounds, Soft Extremity Exam: Positive: Edema (2+ edema to knees) Skin Exam: Positive: Nl turgor and temperature; Negative: Rash Neuro Exam: Positive: Normal Speech, Cranial Nerves 3-12 NL Psych Exam: Positive: Mental status NL Diagnostic and Laboratory Diagnostic Review Radiologic images, relevant labs and pathology reports were personally reviewed and discussed with Ms. Guerra. Assessment and Plan Impression Assessment Ms. Guerra is a 74 year old female with a history of [id number] intrahepatic cholangiocarcinoma and a question of brain metastases on MRI from 05/17/20. There was no suggestion of any brain lesions on MRA from 07/08/20. We then decided to repeat MRI in 3 months. She is seen today to review her recent surveillance MRI head. She is doing well, tolerating chemotherapy, despite nausea and dizziness. Her CA-19-9 has downtrended nicely, her liver masses are stable s/p cycle 6 of chemotherapy. I discussed that she may be appropriate for some consolidative liver-directed therapies given her improved functional status, I will ask for Dr. Maguire's opinion on this. With regard to her MRI head, she has no evidence of brain metastases on recent MRI, in summation, I do not think she ever had brain metastases, rather the punctate foci of enhancement on T1 SPACE from the original April 2020 scan were likely false positive owing to contrast captured in small vessels rather than lesions. This is a known phenomenon with the SPACE sequence that contributes to high sensitivity but somewhat lower specificity for enhancement. I explained that as she is doing well and the current MRI brain is negative, and she is not having any focal neurological signs (the dizziness is non-specific, and possibly medication related) that I would not recommend additional follow up imaging of the brain at this time. She and her son were happy to hear that. They may follow up with me as needed. Performance Status ECOG 2 Plan Follow up as needed No further brain imaging indicated in light of conclusively negative study Will ask for Dr. Maguire's opinion regarding liver-directed therapy options Ms. Guerra was encouraged to call with questions or concerns in the interim period. Billing Statement Total time of [32] minutes was spent preparing for the visit [2], obtaining HPI [5], examining the patient [2], reviewing diagnostic tests [6], discussing management options [7], coordinating care [3], and writing this note [7]. MAGI RANGEL MD October 15, 2020 15:34
== END ==
LOC: M ONCR 14:26
PROVIDERS: ATTEND General Practice
DX: C22.1 Intrahepatic bile duct carcinoma (principal)

== ENCOUNTER → 2020-11-04 | Outpatient (POV) | payer MEDICARE, OTHER ==
[~2020-11-04] VITALS: Ht 147.3 cm; Wt 60.0 kg
[~2020-11-04] MED LIST changes: +MECL-86 PO; +OMEP40CA4 PO; -OMEP40CA97 PO
[2020-11-04 14:34] VITALS: BP 139/66
--- NOTE | 2020-11-06 13:32 | IRCOV ---
[facility] IR Consult Office Visit IR Consult Office Visit DATE: Nov 04, 2020 REASON FOR CONSULTATION/CHIEF COMPLAINT: Cholangiocarcinoma. Evaluate for liver directed therapies. HISTORY OF PRESENT ILLNESS: 75-year-old female with no history of liver disease, presented with a rapidly growing liver lesion, which was biopsied and diagnosed in April 2020. 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 She was then started on cisplatin/gemcitabine chemotherapy in May 2020. Follow-up imaging demonstrated significant residual disease burden and she is referred for liver directed therapies. Patient states she is dizzy most of the time. She thought this might be related to her medicines and has stopped many of her medicines. She thinks it may be related to her prior chemotherapy. She's tried scopolamine patches without much relief. She does describe nausea. She denies headache, vision changes or syn cope. She denies abdominal pain, jaundice, light stools or dark urine. She's ECOG 3, she wakes up at 7 AM but does not move around the house much. She is confined mostly to her bed or couch. She does feed herself. But she needs help with daily activities. Patient states she is eating and drinking okay. Bowel and urine okay. Weight is stable. She did notice her lower extremity edema improved markedly status post chemotherapy. She sleeps on 2 pillows at night. She denies chest pain, shortness of breath, orthopnea or paroxysmal nocturnal dyspnea. Her last chemotherapy is on Tuesday and she's tolerated chemotherapy pretty well. She was diagnosed with PE and DVT and is on Lovenox. She has no underlying history of cirrhosis, hepatitis or alcoholism. ALLERGIES: Please see below. HOME MEDICATIONS: Please see below. PAST MEDICAL HISTORY: Hypothyroidism Depression Ulcerative colitis Perforated Diverticulitis Atrial fibrillation DVT PE PAST SURGICAL HISTORY: No prior liver surgery FAMILY HISTORY: Noncontributory. SOCIAL HISTORY: Quit smoking in 1997. Denies alcohol or drugs. REVIEW OF SYSTEMS: Otherwise negative. PHYSICAL EXAMINATION: VITAL SIGNS: Please see below. GENERAL APPEARANCE: Appears well. Comfortable at rest. HEENT: No scleral icterus. RESPIRATORY: Normal breathing at rest. CARDIOVASCULAR: Normal rate. ABDOMEN: Soft nontender. EXTREMITIES: Edema bilaterally to the thigh. NEUROLOGICAL: Alert and oriented. PSYCHIATRIC: Appropriate to circumstance. LABORATORY DATA: 11/03/2020 hemoglobin 11.0 hematocrit 35.4 WBC 10.4 platelets 159 sodium 136 potassium 3.2 BUN 17 creatinine 0.88 GFR greater than 60 total bilirubin 0.3 AST 5 ALT 10 ALP 220 CEA 3.3 CA 19 1620. 09/04/2020 INR 1 Imaging: I personally reviewed the CT abdomen and pelvis with IV contrast, performed in August 2020. There is a 8.8 x 7.2 x 7.9 cm hypodense mass in the right hepatic lobe associated with adjacent biliary dilation. There is a small tract from the liver capsule to the skin. A smaller 1.4 x 1.3 cm hypodense focus of tumor is seen, in the left hepatic lobe. Patent portal vein. No cirrhotic morphology. No ascites or signs of portal hypertension. Chronically dilated gallbladder with stones. No pericholecystic inflammation. I personally reviewed the CT abdomen pelvis from July 2020. At that time the intrahepatic mass was much larger measuring 10.5 x 8.3 cm with a larger tract to the subcutaneous fat. At that time there were 2 distinct, larger lesions in the left hepatic lobe, one measuring 2 x 2 cm and one measuring 2.6 by 2.7 cm. Both of these lesions are now much smaller, measuring 0.7 x 0.7 and 1.3 x 1.3 cm. I personally reviewed the CT chest from 09/09/2020. No pulmonary masses. I personally reviewed the CT head from August 2020. No intracranial masses. Patent sulci and cisterns. I personally reviewed the MRI with and without contrast from April 2020. No intraparenchymal mass. Periventricular white matter changes indicative of age- related small vessel disease. I personally reviewed the MRI brain without and with contrast performed in September 2020. No intracranial mass. No mass effect or shift. Periventricular white matter changes indicative of age-related small vessel disease. ASSESSMENT/PLAN: 75-year-old female with aggressive cholangiocarcinoma, status post chemotherapy with good response and decrease in tumor burden in the the liver. However, a sizable disease burden does remain in the liver. No in dications of intracranial or distant metastatic disease. No underlying liver disease or portal hypertension. I agree patient may benefit from liver target therapy and especially Y 90 treatment. We do not currently have a Y 90 program up and running. Therefore, I have personally spoken to my trusted colleague Dr. Avila Vu, interventional radiologist at [facility]. He is happy to evaluate this patient. We have sent patient's records and imaging to Dr. Vu for further evaluation. Thank you for participating in the care of this patient. I spent 60 minutes reviewing patient's records, imaging and in consultation with the patient. Thank you for this referral. Cc Dr. Kwesi Stinson Cc Dr. Marlon Sharp MD CC Dr. Avila Vu Allergies Coded Allergies: No Known Drug Allergies (Verified Allergy, Unknown, 02/27/19) Home Medications Scheduled Enoxaparin Sodium (Lovenox), 80 MG SC BID, (Reported) Famotidine (Famotidine), 1 TAB PO BID Fluoxetine Hcl (Fluoxetine HCl), 20 MG PO DAILY, (Reported) Levothyroxine Sodium (Levothyroxine Sodium), 88 MCG PO DAILY Meclizine HCl (Meclizine HCl), 25 MG PO TID Pegfilgrastim-Bmez (Ziextenzo), 6 MG SQ ASDIRECTED Potassium Chloride (Potassium Chloride), 10 MEQ PO DAILY, (Reported) Potassium Chloride (Potassium Chloride), 10 MEQ PO DAILY, (Reported) Scopolamine (Transderm-Scop), 1.5 MG TOP Q3RD Sulfasalazine (Sulfasalazine), 1,000 MG PO BID, (Reported) Torsemide (Torsemide), 10 MG PO DAILY, (Reported) Scheduled PRN Acetaminophen (Tylenol Extra Strength), 1,000 MG PO TID PRN for PAIN, (Reported) Ondansetron HCl (Ondansetron HCl), 8 MG PO Q8H PRN for NAUSEA OR VOMITING Miscellaneous Medications Covid-19 Vacc,Mrna(Moderna)/Pf (Moderna Covid19 Vacc(Unapprov)), 100 MCG IM, (Reported) VS, I&O, 24H, Fishbone Vital Signs/I&O Vital Signs Date Time Temp Pulse Resp B/P (MAP) Pulse Ox O2 Delivery O2 Flow Rate FiO2 11/04/20 14:34 97.8 87 16 139/66 (90) 97 Room Air STEFANO MCCOY MD Nov 06, 2020 13:32
== END ==
LOC: M IRPOV 14:18
PROVIDERS: ATTEND Radiology Diagnostic Radiology
DX: C22.1 Intrahepatic bile duct carcinoma (principal); E03.9 Hypothyroidism, unspecified; I48.91 Unspecified atrial fibrillation; Z79.01 Long term (current) use of anticoagulants; Z79.890 Hormone replacement therapy; Z79.899 Other long term (current) drug therapy; Z92.21 Personal history of antineoplastic chemotherapy; Z86.711 Personal history of pulmonary embolism; Z86.718 Personal history of other venous thrombosis and embolism; Z87.891 Personal history of nicotine dependence

== ENCOUNTER → 2020-12-22 | Outpatient (CLI) | payer MEDICARE, OTHER ==
[2020-12-22 11:17] LABS: FREE T4 1.78 NG/DL (0.76-1.46); THYROID STIMULATING HORMONE 0.981 uIU/ML (0.358-3.740)
== END ==
LOC: M PLALAB 09:22
PROVIDERS: ATTEND Nurse Practitioner Family
DX: E89.0 Postprocedural hypothyroidism (principal)

== ENCOUNTER → 2021-03-23 | Outpatient (CLI) | payer MEDICARE, OTHER ==
[~2021-03-23] MED LIST changes: +DOK1CAP4 PO; -DOK1CAP7 PO; +ENOX80IN3 SQ; +GASTROGRAFIN SOLUTION 30ML (Q9963) As Ordered ONE; +ISOVUE-370 76% 100ML VIAL As Ordered ONE; -KLOR10TA76 PO; +POTA-136 PO; -SCOP1PAT2 TOP; +TRAN1DIS4 TOP; +WARF-23 PO
--- NOTE | 2021-03-23 18:02 | REP ---
INDICATION: COLOANGIO CA. COMPARISON: 09/09/2020, 07/24/2020 TECHNIQUE: Bolus of 100 mL Isovue 370 with scanning through the chest and both coronal and sagittal reconstructions. FINDINGS: Lungs are well inflated there is again noted to be elevation of the right mainstem bronchus. Compressive atelectatic change of the adjacent lung noted. No pleural effusion, pleural based mass or calcified pleural plaque. No parenchymal nodule or mass identified. Some minor subsegmental atelectatic change in the inferior lingular segment of the left upper lobe at the anterior left lung base. Heart size not grossly enlarged. No hiatal hernia. Prominence of the main, right and left pulmonary arteries in the mediastinum suggesting some degree of pulmonary artery hypertension on the basis of COPD. Some atherosclerotic calcifications aorta without aneurysm or dissection. Calcifications at the arch are noted. No definite hiatal hernia. No pericardial effusion or thickening there is a right-sided indwelling subclavian catheter unchanged. Stable left thyroid lobe nodule. There is no pathologic sized mediastinal, hilar, axillary or supraclavicular adenopathy. The bone windows show sternum with a new superficial cortical defect in the mid sternum and sclerosis that may reflect a posttraumatic or metastatic focus. Please correlate with clinical history there is no soft tissue abnormality in the subcutaneous fat adjacent to it or deep to it in the mediastinum. Some minor degenerative changes in the spine without acute compression deformity. Medial portions of the clavicles are unremarkable. The that portion of scapula included well as the limited portion of the humeral heads were unremarkable the ribs show no acute finding. Upper abdomen shows multiple the liver lesions but this will be discussed in detail in the CT abdomen report and please refer to that. IMPRESSION: 1. Elevated right diaphragm with some compressive atelectatic change of lung adjacent unchanged. No effusion, definite acute infiltrate, lung mass or pulmonary nodules. 2. Indwelling port catheter via the right subclavian route, tip into the vena cava unchanged. Thyroid nodule on the left stable, no follow-up needed. Please see CT abdomen this date for full discussion of the extensive findings in the upper abdomen. <Electronically signed by Dwayne Darnell > 03/23/21 [id number]
--- NOTE | 2021-03-23 18:21 | REP ---
INDICATION: COLOANGIO CA. COMPARISON: 09/09/2020, 07/24/2020. TECHNIQUE: Oral Gastrografin mixture 10 mL in 290 mL flavored water for 2 doses per our bowel contrast protocol and bolus 100 mL Isovue 370 scanning through the abdomen and pelvis with coronal and sagittal reconstructions. Delayed images through the abdomen. FINDINGS: CT abdomen: Liver shows enlarged left hepatic lobe and a necrotic low-density mass in the right hepatic lobe anterior to the gallbladder currently measures 9 x 4.8 by 5.3 cm. On the previous study it was 9.9 x 5.6 x 6.7 cm, so it is somewhat smaller. The previous extension through the intercostal space into the subcutaneous fat is no longer visible. Appears resolved without evidence surgical changes there. There are other much smaller lesions present there appears to be some decrease in size in the left hepatic lobe. There is some developing intrahepatic biliary dilatation. A distended gallbladder with large calcified stones and a transverse diameter 6.7 cm, unchanged. 10 mm low-density focus in the pancreatic head some dilatation of the common duct and pancreatic duct in the pancreatic head and body. This has increased. There is some thickening of the duodenal wall adjacent to the distended gallbladder similar to the previous study small periaortic and peripancreatic nodes are seen in the mesentery. Most of these are 5 mm or smaller there are some nodes in the gastrohepatic ligament region as well cannot confirm a definite portal or periportal node common duct appears prominent as before no evidence of splenomegaly or focal lesion there is no ascites adjacent to the liver or spleen adrenal glands are grossly unremarkable there are stable bilateral renal cysts. No hydronephrosis or solid mass. A vena cava filter is seen extending to the level of L2-3 as a new finding. Small bowel loops are fluid-filled but not abnormally dilated. No air-fluid levels. No edema in the mesentery. No generalized ascites. Moderate stool in the right colon more in the cecum and some of the transverse colon suggesting some mild to moderate the constipation. Anastomotic suture line in the sigmoid region as before. There is midline supraumbilical ventral hernia with transverse colon within but no strangulation or obstruction. This is stable bone windows show lumbar spine degenerative disc and facet arthropathy a changes stable without acute compression deformity or destructive lesion. Subcutaneous fat shows a diffuse increased density suggesting anasarca. A changing pattern of subcutaneous nodules may reflect anterior abdominal wall subcutaneous injections. CT pelvis: Sacrum, pelvis and hips with some degenerative changes but no fracture or destructive lesion. Uterus not enlarged, tilted towards the left. No pelvic mass or free fluid. Bladder with only minimal fluid and cannot be evaluated. No dilated ureter or ureteral stones suggested. Small bowel loops in the pelvis unremarkable no inflammatory changes about the cecum. No ventral pelvic or inguinal hernia. Small bowel loops in the pelvis unremarkable. IMPRESSION: 1. Prominent the right hepatic lobe anterior mass overall slightly smaller and with its extrahepatic extension into the anterolateral right chest wall through intercostal space resolved or resorbed (no surgical changes evident). Other smaller lesions in the left hepatic lobe and right lobe are present and decreased in size. 2. Distended gallbladder with cholelithiasis and multiple calcified stones. Gallbladder measures up to 6.7 cm in transverse diameter previously 6.5 cm. 3. Pancreatic head and body show dilated common and pancreatic ducts. Some intrahepatic dilated ducts noted centrally, unchanged. 4. Bilateral renal cysts without stones. 5. New vena cava filter with its proximal tip at the L2-3 level. 6. A developing anasarca. <Electronically signed by Dwayne Darnell > 03/23/21 [id number]
== END ==
LOC: M RAD 13:39
PROVIDERS: ATTEND Internal Medicine Medical Oncology
DX: C22.1 Intrahepatic bile duct carcinoma (principal)
CPT/HCPCS: 71260; 74177; Q9963; Q9967

== ENCOUNTER → 2021-03-30 | Outpatient (CLI) | payer MEDICARE, OTHER ==
[~2021-03-30] MED LIST changes: -GASTROGRAFIN SOLUTION 30ML (Q9963) As Ordered ONE; -ISOVUE-370 76% 100ML VIAL As Ordered ONE
[2021-03-30 16:05] LABS: FREE T4 1.05 NG/DL (0.76-1.46); THYROID STIMULATING HORMONE 4.35 uIU/ML (0.358-3.740)
== END ==
LOC: M PLALAB 12:35
PROVIDERS: ATTEND Nurse Practitioner Family
DX: E89.0 Postprocedural hypothyroidism (principal)

== ENCOUNTER → 2021-04-29 | Outpatient (CLI) | payer MEDICARE, OTHER ==
--- NOTE | 2021-04-29 10:08 | REP ---
INDICATION: THROMBOANGIITIS OBLITERANS BUERGER'S DISEASE COMPARISON: None. TECHNIQUE: Two views right humerus. FINDINGS: There is no evidence of acute fracture, dislocation, or intrinsic bone disease.There is no radiographic evidence of a bone lesion. There moderate degenerative changes at the glenohumeral joint. IMPRESSION: Unremarkable right humerus, there are moderate degenerative changes at the glenohumeral joint. <Electronically signed by Ramiro Aquino > 04/29/21 [id number]
== END ==
LOC: M RAD 09:32
PROVIDERS: ATTEND Internal Medicine Medical Oncology
DX: M79.601 Pain in right arm (principal)

== ENCOUNTER → 2021-06-29 | Outpatient (CLI) | payer MEDICARE, OTHER ==
[~2021-06-29] MED LIST changes: +FLUO-96 PO; -FLUO20CA20 PO; -LEVO500T3 PO; +LEVO500T4 PO; +ONDA-84 PO; -ONDA8TAB10 PO; -PROC10TA4; -PROC10TA4 PO; +PROC10TA5; +PROC10TA5 PO
== END ==
LOC: M PLARAD 09:32
PROVIDERS: ATTEND Internal Medicine Medical Oncology
DX: C22.1 Intrahepatic bile duct carcinoma (principal); K76.89 Other specified diseases of liver; K80.50 Calculus of bile duct without cholangitis or cholecystitis without obstruction; K82.1 Hydrops of gallbladder
CPT/HCPCS: 78815; A9552

== ENCOUNTER 2021-07-14 10:29 | Emergency (ER) | payer MEDICARE, OTHER ==
[~2021-07-14] VITALS: Ht 149.9 cm; Wt 62.7 kg
[2021-07-14] MEDS ORDERED: NS 500 ML IV ONE (14:40)
[2021-07-14 15:16] LABS: BASO % 0.9 % (0.0-1.0); EOS # 0.1 10^3/uL (0.0-0.5); EOS % 3.1 % (0.0-3.0); HEMATOCRIT 36.1 % (36.0-47.0); HEMOGLOBIN 11.1 g/dl (12.0-15.5); LYMPH # 1.3 10^3/uL (1.5-5.0); LYMPH % 28.9 % (24.0-44.0); MEAN CORPUSCULAR HEMOGLOBIN 29.8 pg (27.0-33.0); MEAN CORPUSCULAR HGB CONC 30.7 g/dl (32.0-36.5); MONO # 0.7 10^3/uL (0.0-0.8); MONO % 14.2 % (2.0-8.0); NEUTROPHILS # 2.4 10^3/uL (1.5-8.5); NEUTROPHILS % 52.5 % (36.0-66.0); PLATELET COUNT, AUTOMATED 183 10^3/uL (150-450); RED BLOOD COUNT 3.72 10^6/uL (4.00-5.40); WHITE BLOOD COUNT 4.6 10^3/uL (4.0-10.0)
[2021-07-14] MEDS ORDERED: BISACODYL 10 MG SUPP PR ONE (15:30)
[2021-07-14] MEDS ORDERED: ACETAMINOPHEN TAB 650MG DOSE (2X325MG) PO ONE (15:30)
[2021-07-14 15:42] LABS: BLOOD UREA NITROGEN 20 MG/DL (7-18); CALCIUM LEVEL 9.6 MG/DL (8.8-10.2); CARBON DIOXIDE LEVEL 27 MEQ/L (21-32); CHLORIDE LEVEL 109 MEQ/L (98-107); CREATININE FOR GFR 0.87 MG/DL (0.55-1.30); GLOMERULAR FILTRATION RATE > 60.0 (>39); GLUCOSE, FASTING 85 MG/DL (70-100); SODIUM LEVEL 142 MEQ/L (136-145)
[2021-07-14] MEDS ORDERED: MAGNESIUM CITRATE 300 ML BTL PO ONE (16:55)
[2021-07-14] MEDS ORDERED: FLEET OIL RETENTION ENEMA PR ONE (18:45)
[2021-07-15 00:36] VITALS: BP 129/68
== END 2021-07-15 00:37 | disposition home or self-care (01) ==
LOC: M ED 10:29
DX: K59.00 Constipation, unspecified (principal); K80.20 Calculus of gallbladder without cholecystitis without obstruction; K51.90 Ulcerative colitis, unspecified, without complications; K44.9 Diaphragmatic hernia without obstruction or gangrene; C22.9 Malignant neoplasm of liver, not specified as primary or secondary; Z79.899 Other long term (current) drug therapy

== ENCOUNTER → 2021-08-17 | Outpatient (CLI) | payer MEDICARE, OTHER | LOC: M RAD 12:14 | PROVIDERS: ATTEND Internal Medicine Medical Oncology | DX: R07.89 Other chest pain (principal) ==

== ENCOUNTER → 2021-09-17 | Outpatient (CLI) | payer MEDICARE, OTHER ==
[~2021-09-17] MED LIST changes: +GASTROGRAFIN SOLUTION 30ML (Q9963) As Ordered ONE; +ISOVUE-370 76% 100ML VIAL As Ordered ONE
== END ==
LOC: M RAD 11:35
PROVIDERS: ATTEND Internal Medicine Medical Oncology
DX: R07.89 Other chest pain (principal); R91.8 Other nonspecific abnormal finding of lung field
CPT/HCPCS: 71260; 74177; Q9963; Q9967

== ENCOUNTER → 2021-09-21 | Outpatient (CLI) | payer MEDICARE, OTHER ==
[~2021-09-21] MED LIST changes: -GASTROGRAFIN SOLUTION 30ML (Q9963) As Ordered ONE; -ISOVUE-370 76% 100ML VIAL As Ordered ONE
[2021-09-21 16:01] LABS: FREE T4 1.01 NG/DL (0.76-1.46); THYROID STIMULATING HORMONE 3.68 uIU/ML (0.358-3.740)
== END ==
LOC: M PLALAB 13:49
PROVIDERS: ATTEND Nurse Practitioner Family
DX: E89.0 Postprocedural hypothyroidism (principal)

== ENCOUNTER 2021-10-13 06:16 | Observation (INO) | payer MEDICARE, OTHER ==
[~2021-10-13] VITALS: Ht 147.3 cm; Wt 67.7 kg
[2021-10-13 07:35] LABS: BASO % 0.7 % (0.0-1.0); EOS # 0.1 10^3/uL (0.0-0.5); EOS % 2.3 % (0.0-3.0); HEMATOCRIT 34.4 % (36.0-47.0); HEMOGLOBIN 10.7 g/dl (12.0-15.5); LYMPH # 0.5 10^3/uL (1.5-5.0); LYMPH % 7.5 % (24.0-44.0); MEAN CORPUSCULAR HEMOGLOBIN 30.8 pg (27.0-33.0); MEAN CORPUSCULAR HGB CONC 31.1 g/dl (32.0-36.5); MEAN CORPUSCULAR VOLUME 99.1 fl (80.0-96.0); MONO # 0.6 10^3/uL (0.0-0.8); NEUTROPHILS # 4.8 10^3/uL (1.5-8.5); PLATELET COUNT, AUTOMATED 139 10^3/uL (150-450); RED BLOOD COUNT 3.47 10^6/uL (4.00-5.40); WHITE BLOOD COUNT 6.1 10^3/uL (4.0-10.0)
[2021-10-13 08:04] LABS: ALBUMIN 2.9 GM/DL (3.2-5.2); ALT/SGPT 32 U/L (12-78); BILIRUBIN,DIRECT 0.1 MG/DL (0.0-0.2); BILIRUBIN,TOTAL 0.3 MG/DL (0.2-1.0); BLOOD UREA NITROGEN 18 MG/DL (7-18); CALCIUM LEVEL 8.4 MG/DL (8.8-10.2); CARBON DIOXIDE LEVEL 26 MEQ/L (21-32); CHLORIDE LEVEL 112 MEQ/L (98-107); CREATININE FOR GFR 0.82 MG/DL (0.55-1.30); GLOMERULAR FILTRATION RATE > 60.0 (>39); GLUCOSE, FASTING 142 MG/DL (70-100); POTASSIUM SERUM 4.2 MEQ/L (3.5-5.1); SODIUM LEVEL 141 MEQ/L (136-145); TOTAL PROTEIN 6.2 GM/DL (6.4-8.2)
[2021-10-13 08:06] LABS: OSMOLALITY SERUM 294 MOSM/KG (280-301)
[2021-10-13 08:22] LABS: RSV AMPLIFICATION NEGATIVE (NEGATIVE)
[2021-10-13] MEDS ORDERED: MECLIZINE 25 MG TABLET PO ONE (12:20)
[2021-10-13] MEDS ORDERED: diazePAM 2 MG TAB PO ONE (15:35)
[2021-10-13] MEDS ORDERED: diazePAM 5MG TABLET PO ONE (15:45)
[2021-10-13] MEDS ORDERED: ACETAMINOPHEN TAB 650MG DOSE (2X325MG) PO PRN (19:05)
[2021-10-13] MEDS ORDERED: MAALOX 30 ML SUSP *UDC PO PRN (19:05)
[2021-10-13] MEDS ORDERED: MOM 30ML SUSPENSION UDC PO PRN (19:05)
[2021-10-13] MEDS ORDERED: LEVO75TA4 PO (19:34)
[2021-10-13] MEDS ORDERED: FLUO40CA PO (19:34)
[2021-10-13] MEDS ORDERED: HOME MED LIST COMPLETE! XX SCH (19:35)
[2021-10-13 20:00] VITALS: BP 128/67
[2021-10-13 20:34] LABS: INR 0.93; PROTHROMBIN TIME 12.9 SECONDS (12.7-14.5)
[2021-10-13 20:35] LABS: PARTIAL THROMBOPLASTIN TIME 30.8 SECONDS (25.9-37.0)
[2021-10-13] MEDS ORDERED: MECLIZINE 25 MG TABLET PO PRN (20:35)
[2021-10-13 22:00] VITALS: BP 130/68
[2021-10-13] MEDS: DOCUSATE SODIUM 100MG CAPSULE PO SCH (22:50)
[2021-10-13] MEDS: ENOXAPARIN 80MG/0.8ML SYRINGE (J1650 PER 10MG) SQ SCH (22:51)
[2021-10-14] MEDS: sulfaSALAzine 500 MG TABEC PO SCH ×3 (00:05→12:32)
[2021-10-14 05:51] LABS: HEMATOCRIT 38.4 % (36.0-47.0); HEMOGLOBIN 11.9 g/dl (12.0-15.5); MEAN CORPUSCULAR HEMOGLOBIN 30.2 pg (27.0-33.0); MEAN CORPUSCULAR VOLUME 97.5 fl (80.0-96.0); PLATELET COUNT, AUTOMATED 146 10^3/uL (150-450); RED BLOOD COUNT 3.94 10^6/uL (4.00-5.40); WHITE BLOOD COUNT 3.9 10^3/uL (4.0-10.0)
[2021-10-14 06:00] VITALS: BP 130/69
[2021-10-14] MEDS ORDERED: LEVOTHYROXINE 75MCG TABLET (0.075MG) PO SCH (06:00)
[2021-10-14 06:14] LABS: BLOOD UREA NITROGEN 15 MG/DL (7-18); CARBON DIOXIDE LEVEL 27 MEQ/L (21-32); CHLORIDE LEVEL 111 MEQ/L (98-107); GLOMERULAR FILTRATION RATE > 60.0 (>39); GLUCOSE, FASTING 91 MG/DL (70-100); POTASSIUM SERUM 4.1 MEQ/L (3.5-5.1); SODIUM LEVEL 142 MEQ/L (136-145)
[2021-10-14] MEDS ORDERED: FLUoxetine 20MG CAP PO SCH (09:00)
[2021-10-14] MEDS ORDERED: TORSEMIDE 10 MG TABLET PO SCH (09:00)
[2021-10-14] MEDS ORDERED: POTASSIUM CHLORIDE 10MEQ SR TABLET PO SCH (09:00)
[2021-10-14] MEDS: DOCUSATE SODIUM 100MG CAPSULE PO SCH (09:54)
[2021-10-14] MEDS: ENOXAPARIN 80MG/0.8ML SYRINGE (J1650 PER 10MG) SQ SCH (09:56)
== END 2021-10-14 14:00 | disposition home or self-care (01) ==
LOC: M ED 06:16 → EDBD 06:16 → M ED INP 19:05 → M MSPAV 21:12
PROVIDERS: ADMIT Family Medicine; ATTEND Family Medicine
DX: R42 Dizziness and giddiness (principal); R00.2 Palpitations; C22.0 Liver cell carcinoma; C22.1 Intrahepatic bile duct carcinoma; R91.8 Other nonspecific abnormal finding of lung field; E89.0 Postprocedural hypothyroidism; Z90.89 Acquired absence of other organs; K51.90 Ulcerative colitis, unspecified, without complications; I11.9 Hypertensive heart disease without heart failure; Z86.711 Personal history of pulmonary embolism; G93.89 Other specified disorders of brain; G31.9 Degenerative disease of nervous system, unspecified; R05.3 Chronic cough; I25.10 Atherosclerotic heart disease of native coronary artery without angina pectoris; Z90.49 Acquired absence of other specified parts of digestive tract; Z79.899 Other long term (current) drug therapy; Z79.01 Long term (current) use of anticoagulants; Z79.890 Hormone replacement therapy; Z87.891 Personal history of nicotine dependence
CPT/HCPCS: 36415; 70450; 70544; 70551; 71045; 80048; 80076; 81001; 83735; 83930; 84439; 84443; 84484; 85025; 85027; 85610; 85730; 87631; 93005; 93041; 94760; 96372; 97110; 97112; 97161; 97165; 97530; 99285; G0378; J1650

== ENCOUNTER → 2021-11-16 | Outpatient (CLI) | payer MEDICARE, OTHER ==
[~2021-11-16] MED LIST changes: +LEVO75TA4 PO
== END ==
LOC: M PLARAD 14:50
PROVIDERS: ATTEND Internal Medicine Medical Oncology
DX: C22.1 Intrahepatic bile duct carcinoma (principal)
CPT/HCPCS: 78815; A9552

== ENCOUNTER 2021-12-10 22:56 | Emergency (ER) | payer MEDICARE, OTHER ==
[~2021-12-10] VITALS: Ht 147.3 cm; Wt 65.0 kg
[~2021-12-10 22:56] MED LIST changes: +ZOLO100T
[2021-12-11 04:33] LABS: BASO % 0.3 % (0.0-1.0); HEMATOCRIT 43.8 % (36.0-47.0); HEMOGLOBIN 13.8 g/dl (12.0-15.5); LYMPH # 0.4 10^3/uL (1.5-5.0); LYMPH % 3.8 % (24.0-44.0); MEAN CORPUSCULAR HEMOGLOBIN 30.2 pg (27.0-33.0); MEAN CORPUSCULAR HGB CONC 31.5 g/dl (32.0-36.5); MEAN CORPUSCULAR VOLUME 95.8 fl (80.0-96.0); MONO # 0.2 10^3/uL (0.0-0.8); MONO % 1.8 % (2.0-8.0); NEUTROPHILS # 9.2 10^3/uL (1.5-8.5); NEUTROPHILS % 93.6 % (36.0-66.0); PLATELET COUNT, AUTOMATED 168 10^3/uL (150-450); RED BLOOD COUNT 4.57 10^6/uL (4.00-5.40); WHITE BLOOD COUNT 9.8 10^3/uL (4.0-10.0)
[2021-12-11] MEDS ORDERED: MORPHINE 2 MG/ML 1ML VIAL IV ONE (04:45)
[2021-12-11 05:09] LABS: CK-MB VALUE MASS < 1.0 NG/ML (<3.6); CPK CREATINE PHOSPHOKINASE 53 U/L (26-192); MB/CK RELATIVE INDEX 1.89 (< OR =4)
[2021-12-11 05:12] LABS: CALCIUM LEVEL 9.7 MG/DL (8.8-10.2); GLOMERULAR FILTRATION RATE 57.5 (>39); MAGNESIUM LEVEL 1.9 MG/DL (1.8-2.4)
[2021-12-11] MEDS ORDERED: ACETAMINOPHEN TAB 650MG DOSE (2X325MG) PO ONE (05:30)
[2021-12-11] MEDS ORDERED: NS 500 ML IV ONE (06:20)
[2021-12-11 08:59] LABS: ALBUMIN 2.9 GM/DL (3.2-5.2); BILIRUBIN,DIRECT 0.2 MG/DL (0.0-0.2); BILIRUBIN,TOTAL 0.7 MG/DL (0.2-1.0); TOTAL PROTEIN 6.4 GM/DL (6.4-8.2)
[2021-12-11] MEDS ORDERED: ISOVUE-370 76% 100ML VIAL As Ordered ONE (09:23)
[2021-12-11] MEDS ORDERED: KETOROLAC 30 MG/ML 1ML VIAL IV ONE (11:00)
[2021-12-11] MEDS ORDERED: PRED20TA PO (14:17)
[2021-12-11 14:43] VITALS: BP 139/82
== END 2021-12-11 15:11 | disposition home or self-care (01) ==
LOC: M ED 22:56
DX: R07.9 Chest pain, unspecified (principal); F32.A Depression, unspecified; E03.9 Hypothyroidism, unspecified

== ENCOUNTER → 2022-01-05 | Outpatient (CLI) | payer MEDICARE, OTHER ==
[~2022-01-05] MED LIST changes: +BACT800T5 PO; +LEVO1TAB39 PO; -LEVO500T4 PO; +POTA-150 PO; -POTA10TA17 PO; +PRED20TA PO
== END ==
LOC: M RAD 11:25
PROVIDERS: ATTEND Nurse Practitioner
DX: R06.02 Shortness of breath (principal)

== ENCOUNTER → 2022-01-06 | Outpatient (CLI) | payer MEDICARE, OTHER ==
[~2022-01-06] MED LIST changes: +ISOVUE-370 76% 100ML VIAL As Ordered ONE
== END ==
LOC: M RAD 16:17
PROVIDERS: ATTEND Nurse Practitioner
DX: R06.02 Shortness of breath (principal); R91.8 Other nonspecific abnormal finding of lung field
CPT/HCPCS: 71260; Q9967

== ENCOUNTER 2022-01-09 18:51 | Inpatient (IN) | payer MEDICARE, OTHER ==
[~2022-01-09] VITALS: Ht 149.9 cm; Wt 59.5 kg
[~2022-01-09 18:51] MED LIST changes: -ISOVUE-370 76% 100ML VIAL As Ordered ONE; -ZOLO100T; +ZOLO100T PO
[2022-01-09 21:43] LABS: HEMATOCRIT 30.9 % (36.0-47.0); HEMOGLOBIN 9.8 g/dl (12.0-15.5); MEAN CORPUSCULAR HEMOGLOBIN 31.5 pg (27.0-33.0); MEAN CORPUSCULAR HGB CONC 31.7 g/dl (32.0-36.5); MEAN CORPUSCULAR VOLUME 99.4 fl (80.0-96.0); PLATELET COUNT, AUTOMATED 183 10^3/uL (150-450); RED BLOOD COUNT 3.11 10^6/uL (4.00-5.40)
[2022-01-09 22:01] LABS: ANISOCYTOSIS 4+; ATYPICAL LYMPH 8 % (0-5); EOSINOPHILS 1 % (0-3); LYMPHOCYTES 6 % (16-44); METAMYELOCYTES 1 % (0-0); MYELOCYTES 1 % (0-0); NEUTROPHILS 81 % (28-66)
[2022-01-09 22:02] LABS: OVALOCYTES 1+; POIKILOCYTOSIS 1+; POLYCHROMASIA 1+; TOXIC VACUOLATION 2+
[2022-01-09 22:03] LABS: PLATELET CLUMPS SMALL AMT; PLATELET ESTIMATE NORMAL (NORMAL)
[2022-01-09] MEDS ORDERED: cefTRIAXone SOD 2 GM in D5W MINI-BAG PLUS 50 ML IV ONE (22:05)
[2022-01-09] MEDS ORDERED: ONDANSETRON 4MG 2ML VIAL IV ONE (22:05)
[2022-01-09] MEDS ORDERED: NS IV ONE (22:05)
[2022-01-09] MEDS ORDERED: MORPHINE 4 MG/ML 1ML VIAL/SYRINGE IV ONE (22:05)
[2022-01-09 23:05] LABS: ALBUMIN 1.8 GM/DL (3.2-5.2); ALT/SGPT 13 U/L (12-78); BILIRUBIN,DIRECT 0.2 MG/DL (0.0-0.2); BILIRUBIN,TOTAL 0.5 MG/DL (0.2-1.0); BLOOD UREA NITROGEN 12 MG/DL (7-18); CALCIUM LEVEL 6.9 MG/DL (8.8-10.2); CARBON DIOXIDE LEVEL 20 MEQ/L (21-32); CHLORIDE LEVEL 116 MEQ/L (98-107); CREATININE FOR GFR 0.66 MG/DL (0.55-1.30); GLOMERULAR FILTRATION RATE > 60.0 (>39); GLUCOSE, FASTING 90 MG/DL (70-100); SODIUM LEVEL 141 MEQ/L (136-145); TOTAL PROTEIN 5.1 GM/DL (6.4-8.2)
[2022-01-09] MEDS ORDERED: KCL 10MEQ/100ML SWI (KRUN) 10 MEQ in IV 1 EA IV ONE (23:35)
[2022-01-10 00:32] LABS: ABG BASE EXCESS -3.5 (-2.0-2.0); ABG O2 SATURATION 93.4 % (95.0-99.0); ABG PARTIAL PRESSURE CO2 35.1 mmHg (35.0-45.0); ABG STANDARD HCO3 21.5 MEQ/L (22.0-26.0); ABG pH (ARTERIAL) 7.394 UNITS (7.350-7.450)
[2022-01-10] MEDS ORDERED: MORPHINE 4 MG/ML 1ML VIAL/SYRINGE IV PRN (02:00)
[2022-01-10] MEDS ORDERED: VANCOMYCIN HCL 1,000 MG, VIAL MATE ADAPTER 1 EACH in NS 250 ML IV SCH (02:00)
[2022-01-10] MEDS ORDERED: ONDANSETRON 4MG 2ML VIAL IV PRN (02:00)
[2022-01-10] MEDS ORDERED: ACETAMINOPHEN TAB 650MG DOSE (2X325MG) PO PRN (02:00)
[2022-01-10] MEDS ORDERED: MORPHINE 2 MG/ML 1ML VIAL IV PRN (02:00)
[2022-01-10] MEDS ORDERED: ACET-897 PO (02:19)
[2022-01-10] MEDS ORDERED: HOME MED LIST COMPLETE! XX SCH (02:20)
[2022-01-10] MEDS ORDERED: KCL 40MEQ in NS 1000ML 1,000 ML IV SCH (02:30)
[2022-01-10 02:53] VITALS: BP 107/68
[2022-01-10] MEDS ORDERED: VANCOMYCIN HCL 750 MG, VIAL MATE ADAPTER 1 EACH in D5W 250 ML IV ONE (03:00)
[2022-01-10] MEDS ORDERED: PROCHLORPERAZINE 5MG TAB PO PRN (03:05)
[2022-01-10 03:59] LABS: HEMOGLOBIN 8.5 g/dl (12.0-15.5); MEAN CORPUSCULAR HEMOGLOBIN 32.1 pg (27.0-33.0); MEAN CORPUSCULAR HGB CONC 31.5 g/dl (32.0-36.5); MEAN CORPUSCULAR VOLUME 101.9 fl (80.0-96.0); PLATELET COUNT, AUTOMATED 194 10^3/uL (150-450); RED BLOOD COUNT 2.65 10^6/uL (4.00-5.40)
[2022-01-10] MEDS ORDERED: VANCOMYCIN HCL 500 MG in D5W MINI-BAG PLUS 100 ML IV ONE (04:00)
[2022-01-10 04:10] LABS: INR 1.25; PROTHROMBIN TIME 16.2 SECONDS (12.7-14.5); WHITE BLOOD COUNT 31.7 10^3/uL (4.0-10.0)
[2022-01-10 04:11] LABS: PARTIAL THROMBOPLASTIN TIME 40.6 SECONDS (25.9-37.0)
[2022-01-10 04:27] LABS: BLOOD UREA NITROGEN 16 MG/DL (7-18); CALCIUM LEVEL 8.3 MG/DL (8.8-10.2); CARBON DIOXIDE LEVEL 23 MEQ/L (21-32); CHLORIDE LEVEL 110 MEQ/L (98-107); CREATININE FOR GFR 0.82 MG/DL (0.55-1.30); GLOMERULAR FILTRATION RATE > 60.0 (>39); GLUCOSE, FASTING 114 MG/DL (70-100); MAGNESIUM LEVEL 1.7 MG/DL (1.8-2.4); POTASSIUM SERUM 3.4 MEQ/L (3.5-5.1); SODIUM LEVEL 137 MEQ/L (136-145)
[2022-01-10] MEDS ORDERED: MAG SULF 1GM/100ML (MAG RUN) 1 GM in IV 1 EA IV ONE (05:00)
[2022-01-10 05:45] VITALS: BP 110/68
[2022-01-10] MEDS: LEVOTHYROXINE 75MCG TABLET (0.075MG) PO SCH (06:09)
[2022-01-10] MEDS ORDERED: POTASSIUM CHLORIDE 10MEQ SR TABLET PO SCH (09:00)
[2022-01-10] MEDS ORDERED: ENOXAPARIN 80MG/0.8ML SYRINGE (J1650 PER 10MG) SQ SCH (09:00)
[2022-01-10] MEDS: sulfaSALAzine 500 MG TABEC PO SCH ×2 (09:49→19:27)
[2022-01-10] MEDS: SERTRALINE 100 MG TAB PO SCH (09:50)
[2022-01-10] MEDS: PIPERACILLIN/TAZOBACTAM SOD 3.375 GM in D5W MINI-BAG PLUS 50 ML IV SCH ×4 (09:50→23:33)
[2022-01-10] MEDS: POTASSIUM CHLORIDE 10MEQ SR TABLET PO SCH (09:50)
[2022-01-10] MEDS: ENOXAPARIN 60MG/0.6ML SYRINGE (J1650 PER 10MG) SQ SCH ×2 (09:50→19:28)
[2022-01-10] MEDS: KETOROLAC 30 MG/ML 1ML VIAL IV PRN ×2 (11:06→19:27)
[2022-01-10] MEDS ORDERED: ISOVUE-370 76% 100ML VIAL As Ordered ONE (12:18)
[2022-01-10] MEDS: GASTROGRAFIN SOLUTION 30ML PO SCH ×2 (12:48→13:13)
[2022-01-10 14:00] VITALS: BP 117/67
[2022-01-10] MEDS: VANCOMYCIN HCL 750 MG, VIAL MATE ADAPTER 1 EACH in D5W 250 ML IV SCH (19:05)
[2022-01-10 19:13] VITALS: BP 116/74
[2022-01-10] MEDS ORDERED: ALBUTEROL SULFATE 2.5 MG/0.5 ML INH NEB SOLN NEB PRN (19:25)
[2022-01-10] MEDS ORDERED: LOPERAMIDE 2 MG CAPLET PO ONE (19:25)
[2022-01-10] MEDS ORDERED: oxyCODONE 5MG TAB PO ONE (19:35)
[2022-01-10] MEDS: IPRATROPIUM 0.5MG/ALBUTEROL 2.5MG INH SOL UD 3ML (DUONEB) NEB PRN (19:40)
[2022-01-11 04:54] VITALS: BP 116/72
[2022-01-11] MEDS: LEVOTHYROXINE 75MCG TABLET (0.075MG) PO SCH (05:20)
[2022-01-11] MEDS: PIPERACILLIN/TAZOBACTAM SOD 3.375 GM in D5W MINI-BAG PLUS 50 ML IV SCH ×3 (05:20→17:54)
[2022-01-11 06:16] LABS: HEMATOCRIT 27.2 % (36.0-47.0); HEMOGLOBIN 8.3 g/dl (12.0-15.5); MEAN CORPUSCULAR HEMOGLOBIN 31.2 pg (27.0-33.0); MEAN CORPUSCULAR HGB CONC 30.5 g/dl (32.0-36.5); MEAN CORPUSCULAR VOLUME 102.3 fl (80.0-96.0); PLATELET COUNT, AUTOMATED 199 10^3/uL (150-450); RED BLOOD COUNT 2.66 10^6/uL (4.00-5.40); WHITE BLOOD COUNT 29.3 10^3/uL (4.0-10.0)
[2022-01-11] MEDS: KETOROLAC 30 MG/ML 1ML VIAL IV PRN (06:50)
[2022-01-11 07:04] LABS: BLOOD UREA NITROGEN 13 MG/DL (7-18); CALCIUM LEVEL 8.1 MG/DL (8.8-10.2); CARBON DIOXIDE LEVEL 20 MEQ/L (21-32); CHLORIDE LEVEL 110 MEQ/L (98-107); CREATININE FOR GFR 0.92 MG/DL (0.55-1.30); GLOMERULAR FILTRATION RATE > 60.0 (>39); GLUCOSE, FASTING 111 MG/DL (70-100); POTASSIUM SERUM 4.4 MEQ/L (3.5-5.1); SODIUM LEVEL 136 MEQ/L (136-145)
[2022-01-11] MEDS: sulfaSALAzine 500 MG TABEC PO SCH ×2 (10:12→20:26)
[2022-01-11] MEDS: SERTRALINE 100 MG TAB PO SCH (10:13)
[2022-01-11] MEDS: POTASSIUM CHLORIDE 10MEQ SR TABLET PO SCH (10:13)
[2022-01-11] MEDS: ENOXAPARIN 60MG/0.6ML SYRINGE (J1650 PER 10MG) SQ SCH ×2 (10:13→20:26)
[2022-01-11 10:20] VITALS: BP 84/60
[2022-01-11 10:26] VITALS: BP 95/62
[2022-01-11] MEDS ORDERED: NS 1,000 ML IV ONE (12:10)
[2022-01-11 14:00] VITALS: BP 100/59
[2022-01-11] MEDS: VANCOMYCIN HCL 750 MG, VIAL MATE ADAPTER 1 EACH in D5W 250 ML IV SCH (14:13)
[2022-01-11] MEDS: oxyCODONE 5MG TAB PO PRN ×2 (14:16→23:33)
[2022-01-11] MEDS: LACTOBACILLUS ACIDOPHILUS CAP (BACID) PO SCH (17:54)
[2022-01-11] MEDS: LOPERAMIDE 2 MG CAPLET PO SCH ×2 (17:55→20:52)
[2022-01-11 17:56] VITALS: BP 123/78
[2022-01-11] MEDS: ACETAMINOPHEN TAB 650MG DOSE (2X325MG) PO PRN (21:23)
[2022-01-11 22:00] VITALS: BP 113/57
[2022-01-12] MEDS: PIPERACILLIN/TAZOBACTAM SOD 3.375 GM in D5W MINI-BAG PLUS 50 ML IV SCH ×3 (00:32→12:35)
[2022-01-12 04:55] VITALS: BP 134/78
[2022-01-12] MEDS: LEVOTHYROXINE 75MCG TABLET (0.075MG) PO SCH (05:12)
[2022-01-12 05:42] LABS: HEMATOCRIT 25.6 % (36.0-47.0); HEMOGLOBIN 8.1 g/dl (12.0-15.5); MEAN CORPUSCULAR HEMOGLOBIN 32.4 pg (27.0-33.0); MEAN CORPUSCULAR HGB CONC 31.6 g/dl (32.0-36.5); MEAN CORPUSCULAR VOLUME 102.4 fl (80.0-96.0); PLATELET COUNT, AUTOMATED 248 10^3/uL (150-450); WHITE BLOOD COUNT 29.6 10^3/uL (4.0-10.0)
[2022-01-12 06:22] LABS: BLOOD UREA NITROGEN 9 MG/DL (7-18); CALCIUM LEVEL 8.1 MG/DL (8.8-10.2); CARBON DIOXIDE LEVEL 21 MEQ/L (21-32); CHLORIDE LEVEL 110 MEQ/L (98-107); CREATININE FOR GFR 0.87 MG/DL (0.55-1.30); GLOMERULAR FILTRATION RATE > 60.0 (>39); GLUCOSE, FASTING 93 MG/DL (70-100); MAGNESIUM LEVEL 1.9 MG/DL (1.8-2.4); POTASSIUM SERUM 3.5 MEQ/L (3.5-5.1); SODIUM LEVEL 136 MEQ/L (136-145); VANCOMYCIN LEVEL TROUGH 14.2 UG/ML (10.0-20.0)
[2022-01-12] MEDS: VANCOMYCIN HCL 750 MG, VIAL MATE ADAPTER 1 EACH in D5W 250 ML IV SCH ×2 (06:43→23:56)
[2022-01-12] MEDS: sulfaSALAzine 500 MG TABEC PO SCH ×2 (08:34→20:24)
[2022-01-12] MEDS: SERTRALINE 100 MG TAB PO SCH (08:34)
[2022-01-12] MEDS: LOPERAMIDE 2 MG CAPLET PO SCH ×3 (08:34→20:24)
[2022-01-12] MEDS: LACTOBACILLUS ACIDOPHILUS CAP (BACID) PO SCH ×2 (08:34→17:50)
[2022-01-12] MEDS: POTASSIUM CHLORIDE 10MEQ SR TABLET PO SCH (08:35)
[2022-01-12] MEDS: ENOXAPARIN 60MG/0.6ML SYRINGE (J1650 PER 10MG) SQ SCH ×2 (08:35→20:24)
[2022-01-12] MEDS: oxyCODONE 5MG TAB PO PRN ×2 (08:37→17:50)
[2022-01-12] MEDS: ACETAMINOPHEN TAB 650MG DOSE (2X325MG) PO PRN (13:39)
[2022-01-12 14:00] VITALS: BP 117/53
[2022-01-12] MEDS: PIPERACILLIN/TAZOBACTAM SOD 4.5 GM in D5W MINI-BAG PLUS 50 ML IV SCH (17:50)
[2022-01-12 22:00] VITALS: BP 114/68
[2022-01-13] MEDS: ACETAMINOPHEN TAB 650MG DOSE (2X325MG) PO PRN (00:58)
[2022-01-13] MEDS: PIPERACILLIN/TAZOBACTAM SOD 4.5 GM in D5W MINI-BAG PLUS 50 ML IV SCH ×5 (00:59→23:06)
[2022-01-13] MEDS: IPRATROPIUM 0.5MG/ALBUTEROL 2.5MG INH SOL UD 3ML (DUONEB) NEB PRN (01:11)
[2022-01-13] MEDS: oxyCODONE 5MG TAB PO PRN ×2 (04:30→13:54)
[2022-01-13] MEDS: LEVOTHYROXINE 75MCG TABLET (0.075MG) PO SCH (05:40)
[2022-01-13 05:52] VITALS: BP 113/62
[2022-01-13] MEDS ORDERED: MORPHINE 2 MG/ML 1ML VIAL IV ONE (06:00)
[2022-01-13 07:03] LABS: HEMATOCRIT 23.2 % (36.0-47.0); HEMOGLOBIN 7.2 g/dl (12.0-15.5); MEAN CORPUSCULAR VOLUME 103.1 fl (80.0-96.0); PLATELET COUNT, AUTOMATED 225 10^3/uL (150-450); RED BLOOD COUNT 2.25 10^6/uL (4.00-5.40); WHITE BLOOD COUNT 21.8 10^3/uL (4.0-10.0)
[2022-01-13 07:42] LABS: BLOOD UREA NITROGEN 10 MG/DL (7-18); CALCIUM LEVEL 8.4 MG/DL (8.8-10.2); CARBON DIOXIDE LEVEL 22 MEQ/L (21-32); CHLORIDE LEVEL 110 MEQ/L (98-107); CREATININE FOR GFR 0.69 MG/DL (0.55-1.30); GLOMERULAR FILTRATION RATE > 60.0 (>39); GLUCOSE, FASTING 114 MG/DL (70-100); MAGNESIUM LEVEL 1.9 MG/DL (1.8-2.4); POTASSIUM SERUM 3.5 MEQ/L (3.5-5.1); SODIUM LEVEL 140 MEQ/L (136-145)
[2022-01-13] MEDS: sulfaSALAzine 500 MG TABEC PO SCH ×2 (09:12→21:12)
[2022-01-13] MEDS: POTASSIUM CHLORIDE 10MEQ SR TABLET PO SCH (09:12)
[2022-01-13] MEDS: ENOXAPARIN 60MG/0.6ML SYRINGE (J1650 PER 10MG) SQ SCH ×2 (09:13→21:14)
[2022-01-13] MEDS: LACTOBACILLUS ACIDOPHILUS CAP (BACID) PO SCH ×2 (09:13→18:18)
[2022-01-13] MEDS: LOPERAMIDE 2 MG CAPLET PO SCH ×2 (09:13→21:13)
[2022-01-13] MEDS: SERTRALINE 100 MG TAB PO SCH (09:13)
[2022-01-13] MEDS ORDERED: LOPERAMIDE 2 MG CAPLET PO PRN (11:20)
[2022-01-13] MEDS: oxyCODONE 10 MG CR TAB PO SCH ×2 (12:39→21:12)
[2022-01-13 14:00] VITALS: BP 122/67
[2022-01-13 18:29] VITALS: BP 84/41
[2022-01-13] MEDS ORDERED: NS 1,000 ML IV ONE (18:40)
[2022-01-13 21:00] VITALS: BP 103/60
[2022-01-13 21:11] VITALS: BP 102/59
[2022-01-14] MEDS: oxyCODONE 5MG TAB PO PRN ×2 (02:43→16:05)
[2022-01-14] MEDS: LOPERAMIDE 2 MG CAPLET PO SCH ×3 (04:00→21:17)
[2022-01-14 06:00] VITALS: BP 112/63
[2022-01-14] MEDS: PIPERACILLIN/TAZOBACTAM SOD 4.5 GM in D5W MINI-BAG PLUS 50 ML IV SCH ×3 (06:18→17:47)
[2022-01-14] MEDS: LEVOTHYROXINE 75MCG TABLET (0.075MG) PO SCH (06:18)
[2022-01-14 06:38] LABS: HEMATOCRIT 24.3 % (36.0-47.0); HEMOGLOBIN 7.7 g/dl (12.0-15.5); MEAN CORPUSCULAR HEMOGLOBIN 32.6 pg (27.0-33.0); MEAN CORPUSCULAR HGB CONC 31.7 g/dl (32.0-36.5); PLATELET COUNT, AUTOMATED 269 10^3/uL (150-450); RED BLOOD COUNT 2.36 10^6/uL (4.00-5.40); WHITE BLOOD COUNT 19.8 10^3/uL (4.0-10.0)
[2022-01-14 07:13] LABS: BLOOD UREA NITROGEN 9 MG/DL (7-18); CALCIUM LEVEL 8.3 MG/DL (8.8-10.2); CARBON DIOXIDE LEVEL 25 MEQ/L (21-32); CHLORIDE LEVEL 112 MEQ/L (98-107); CREATININE FOR GFR 0.81 MG/DL (0.55-1.30); GLOMERULAR FILTRATION RATE > 60.0 (>39); GLUCOSE, FASTING 117 MG/DL (70-100); MAGNESIUM LEVEL 1.9 MG/DL (1.8-2.4); POTASSIUM SERUM 3.7 MEQ/L (3.5-5.1); SODIUM LEVEL 139 MEQ/L (136-145)
[2022-01-14 08:00] VITALS: BP 114/64
[2022-01-14] MEDS: sulfaSALAzine 500 MG TABEC PO SCH ×2 (08:32→21:15)
[2022-01-14] MEDS: LACTOBACILLUS ACIDOPHILUS CAP (BACID) PO SCH ×2 (08:33→17:47)
[2022-01-14] MEDS: SERTRALINE 100 MG TAB PO SCH (08:33)
[2022-01-14] MEDS: POTASSIUM CHLORIDE 10MEQ SR TABLET PO SCH (08:33)
[2022-01-14] MEDS: oxyCODONE 10 MG CR TAB PO SCH ×2 (08:33→21:16)
[2022-01-14] MEDS: ENOXAPARIN 60MG/0.6ML SYRINGE (J1650 PER 10MG) SQ SCH ×2 (08:34→21:17)
[2022-01-14 14:00] VITALS: BP 117/52
[2022-01-14 21:00] VITALS: BP 111/61
[2022-01-15] MEDS: PIPERACILLIN/TAZOBACTAM SOD 4.5 GM in D5W MINI-BAG PLUS 50 ML IV SCH ×4 (00:20→17:44)
[2022-01-15] MEDS: LOPERAMIDE 2 MG CAPLET PO SCH (04:58)
[2022-01-15] MEDS: LEVOTHYROXINE 75MCG TABLET (0.075MG) PO SCH (05:01)
[2022-01-15 05:03] VITALS: BP 137/69
[2022-01-15 07:06] LABS: HEMATOCRIT 25.2 % (36.0-47.0); HEMOGLOBIN 7.7 g/dl (12.0-15.5); MEAN CORPUSCULAR HEMOGLOBIN 32.2 pg (27.0-33.0); MEAN CORPUSCULAR HGB CONC 30.6 g/dl (32.0-36.5); MEAN CORPUSCULAR VOLUME 105.4 fl (80.0-96.0); PLATELET COUNT, AUTOMATED 218 10^3/uL (150-450); RED BLOOD COUNT 2.39 10^6/uL (4.00-5.40); WHITE BLOOD COUNT 12.9 10^3/uL (4.0-10.0)
[2022-01-15 07:34] LABS: BLOOD UREA NITROGEN 8 MG/DL (7-18); CALCIUM LEVEL 8.5 MG/DL (8.8-10.2); CARBON DIOXIDE LEVEL 25 MEQ/L (21-32); CHLORIDE LEVEL 109 MEQ/L (98-107); CREATININE FOR GFR 0.77 MG/DL (0.55-1.30); GLOMERULAR FILTRATION RATE > 60.0 (>39); GLUCOSE, FASTING 95 MG/DL (70-100); POTASSIUM SERUM 3.6 MEQ/L (3.5-5.1); SODIUM LEVEL 139 MEQ/L (136-145)
[2022-01-15] MEDS: SERTRALINE 100 MG TAB PO SCH (09:07)
[2022-01-15] MEDS: sulfaSALAzine 500 MG TABEC PO SCH ×2 (09:07→20:40)
[2022-01-15] MEDS: POTASSIUM CHLORIDE 10MEQ SR TABLET PO SCH (09:08)
[2022-01-15] MEDS: LACTOBACILLUS ACIDOPHILUS CAP (BACID) PO SCH ×2 (09:08→17:44)
[2022-01-15] MEDS: ENOXAPARIN 60MG/0.6ML SYRINGE (J1650 PER 10MG) SQ SCH ×2 (09:08→20:42)
[2022-01-15] MEDS: oxyCODONE 10 MG CR TAB PO SCH ×2 (09:08→20:41)
[2022-01-15] MEDS: LOMOTIL 2.5MG/0.025MG TABLET PO SCH ×2 (13:07→17:44)
[2022-01-15 14:00] VITALS: BP 141/83
[2022-01-15] MEDS: oxyCODONE 5MG TAB PO PRN (17:44)
[2022-01-15 22:00] VITALS: BP 112/64
[2022-01-16] MEDS: PIPERACILLIN/TAZOBACTAM SOD 4.5 GM in D5W MINI-BAG PLUS 50 ML IV SCH ×2 (00:06→05:17)
[2022-01-16] MEDS: LOMOTIL 2.5MG/0.025MG TABLET PO SCH ×4 (00:06→18:14)
[2022-01-16] MEDS: LEVOTHYROXINE 75MCG TABLET (0.075MG) PO SCH (05:17)
[2022-01-16 05:20] VITALS: BP 115/62
[2022-01-16] MEDS: oxyCODONE 5MG TAB PO PRN ×2 (05:23→14:16)
[2022-01-16 06:56] LABS: HEMATOCRIT 24.8 % (36.0-47.0); HEMOGLOBIN 7.3 g/dl (12.0-15.5); MEAN CORPUSCULAR HEMOGLOBIN 31.6 pg (27.0-33.0); MEAN CORPUSCULAR HGB CONC 29.4 g/dl (32.0-36.5); MEAN CORPUSCULAR VOLUME 107.4 fl (80.0-96.0); PLATELET COUNT, AUTOMATED 263 10^3/uL (150-450); RED BLOOD COUNT 2.31 10^6/uL (4.00-5.40); WHITE BLOOD COUNT 13.1 10^3/uL (4.0-10.0)
[2022-01-16 07:24] LABS: BLOOD UREA NITROGEN 8 MG/DL (7-18); CALCIUM LEVEL 8.5 MG/DL (8.8-10.2); CARBON DIOXIDE LEVEL 25 MEQ/L (21-32); CHLORIDE LEVEL 110 MEQ/L (98-107); GLOMERULAR FILTRATION RATE > 60.0 (>39); GLUCOSE, FASTING 135 MG/DL (70-100); POTASSIUM SERUM 3.7 MEQ/L (3.5-5.1); SODIUM LEVEL 139 MEQ/L (136-145)
[2022-01-16] MEDS: sulfaSALAzine 500 MG TABEC PO SCH ×2 (09:19→21:13)
[2022-01-16] MEDS: LACTOBACILLUS ACIDOPHILUS CAP (BACID) PO SCH ×2 (09:19→18:14)
[2022-01-16] MEDS: POTASSIUM CHLORIDE 10MEQ SR TABLET PO SCH (09:20)
[2022-01-16] MEDS: SERTRALINE 100 MG TAB PO SCH (09:20)
[2022-01-16] MEDS: ENOXAPARIN 60MG/0.6ML SYRINGE (J1650 PER 10MG) SQ SCH ×2 (09:20→21:13)
[2022-01-16] MEDS: oxyCODONE 10 MG CR TAB PO SCH ×2 (09:21→21:15)
[2022-01-16] MEDS ORDERED: LevoFLOXacin 500 MG TABLET PO ONE (11:15)
[2022-01-16 14:00] VITALS: BP 122/66
[2022-01-16] MEDS: metroNIDAZOLE (FLAGYL) 500MG TABLET PO SCH ×2 (14:11→21:13)
[2022-01-16 19:43] VITALS: BP 115/60
[2022-01-17] VITALS (9 sets, daily range): BP systolic 104–134; BP diastolic 15–85
[2022-01-17] MEDS: LOMOTIL 2.5MG/0.025MG TABLET PO SCH ×4 (00:37→18:00)
[2022-01-17] MEDS: oxyCODONE 5MG TAB PO PRN ×3 (03:04→22:42)
[2022-01-17] MEDS: LevoFLOXacin 500 MG TABLET PO SCH (05:15)
[2022-01-17] MEDS: LEVOTHYROXINE 75MCG TABLET (0.075MG) PO SCH (05:15)
[2022-01-17] MEDS: metroNIDAZOLE (FLAGYL) 500MG TABLET PO SCH ×3 (05:15→20:54)
[2022-01-17] MEDS: sulfaSALAzine 500 MG TABEC PO SCH ×2 (08:39→20:54)
[2022-01-17] MEDS: LACTOBACILLUS ACIDOPHILUS CAP (BACID) PO SCH ×2 (08:39→18:02)
[2022-01-17] MEDS: POTASSIUM CHLORIDE 10MEQ SR TABLET PO SCH (08:39)
[2022-01-17] MEDS: SERTRALINE 100 MG TAB PO SCH (08:39)
[2022-01-17] MEDS: oxyCODONE 10 MG CR TAB PO SCH ×2 (08:40→20:55)
[2022-01-17] MEDS: ENOXAPARIN 60MG/0.6ML SYRINGE (J1650 PER 10MG) SQ SCH ×2 (08:41→20:54)
[2022-01-17] MEDS: DICYCLOMINE 10 MG CAP PO PRN (20:54)
[2022-01-18] MEDS: LOMOTIL 2.5MG/0.025MG TABLET PO SCH ×3 (00:42→12:00)
[2022-01-18] MEDS ORDERED: PILL CUTTER 1 EACH XX PRN (00:55)
[2022-01-18] MEDS ORDERED: MORPHINE 30 MG TAB **MSIR PO ONE (01:00)
[2022-01-18 05:10] VITALS: BP 106/70
[2022-01-18] MEDS: LEVOTHYROXINE 75MCG TABLET (0.075MG) PO SCH (05:29)
[2022-01-18] MEDS: metroNIDAZOLE (FLAGYL) 500MG TABLET PO SCH ×2 (05:29→14:31)
[2022-01-18] MEDS: LevoFLOXacin 500 MG TABLET PO SCH (05:30)
[2022-01-18 06:18] LABS: BASO # 0.1 10^3/uL (0.0-0.2); BASO % 1.4 % (0.0-1.0); EOS # 0.1 10^3/uL (0.0-0.5); EOS % 1.4 % (0.0-3.0); HEMATOCRIT 29.4 % (36.0-47.0); HEMOGLOBIN 9.2 g/dl (12.0-15.5); LYMPH # 1.3 10^3/uL (1.5-5.0); LYMPH % 13.2 % (24.0-44.0); MEAN CORPUSCULAR HEMOGLOBIN 32.3 pg (27.0-33.0); MEAN CORPUSCULAR HGB CONC 31.3 g/dl (32.0-36.5); MEAN CORPUSCULAR VOLUME 103.2 fl (80.0-96.0); MONO # 1.5 10^3/uL (0.0-0.8); MONO % 15.2 % (2.0-8.0); NEUTROPHILS # 6.4 10^3/uL (1.5-8.5); NEUTROPHILS % 65.8 % (36.0-66.0); PLATELET COUNT, AUTOMATED 227 10^3/uL (150-450); RED BLOOD COUNT 2.85 10^6/uL (4.00-5.40); WHITE BLOOD COUNT 9.7 10^3/uL (4.0-10.0)
[2022-01-18 06:48] LABS: BLOOD UREA NITROGEN 5 MG/DL (7-18); CALCIUM LEVEL 8.7 MG/DL (8.8-10.2); CARBON DIOXIDE LEVEL 28 MEQ/L (21-32); CHLORIDE LEVEL 110 MEQ/L (98-107); GLOMERULAR FILTRATION RATE > 60.0 (>39); GLUCOSE, FASTING 94 MG/DL (70-100); POTASSIUM SERUM 4.1 MEQ/L (3.5-5.1); SODIUM LEVEL 142 MEQ/L (136-145)
[2022-01-18] MEDS: sulfaSALAzine 500 MG TABEC PO SCH (08:51)
[2022-01-18] MEDS: POTASSIUM CHLORIDE 10MEQ SR TABLET PO SCH (08:52)
[2022-01-18] MEDS: LACTOBACILLUS ACIDOPHILUS CAP (BACID) PO SCH (08:52)
[2022-01-18] MEDS: SERTRALINE 100 MG TAB PO SCH (08:52)
[2022-01-18] MEDS: oxyCODONE 10 MG CR TAB PO SCH (08:53)
[2022-01-18] MEDS: ENOXAPARIN 60MG/0.6ML SYRINGE (J1650 PER 10MG) SQ SCH (08:53)
[2022-01-18] MEDS ORDERED: DICY1CAP8 PO (10:46)
[2022-01-18] MEDS ORDERED: OXYC-517 PO (10:46)
[2022-01-18] MEDS ORDERED: LOVE0.4I2 SQ (10:46)
[2022-01-18] MEDS ORDERED: DIPH2.5T15 PO (10:46)
[2022-01-18] MEDS ORDERED: METR-265 PO (10:46)
[2022-01-18] MEDS ORDERED: RISATAB3 PO (10:46)
[2022-01-18] MEDS ORDERED: OXYC-403 PO (10:46)
[2022-01-18] MEDS ORDERED: LEVO1TAB39 PO (10:46)
[2022-01-18] MEDS ORDERED: MORP-69 PO (12:30)
[2022-01-18 14:00] VITALS: BP 102/68
[2022-01-18] MEDS: oxyCODONE 5MG TAB PO PRN (14:31)
[2022-01-18] MEDS: DICYCLOMINE 10 MG CAP PO PRN (14:31)
== END 2022-01-18 15:11 | disposition home or self-care (01) | DRG 871 ==
LOC: M ED 18:51 → M ED INP 01-10 01:58 → M MSPAV 01-10 02:53
PROVIDERS: ADMIT Family Medicine; ATTEND Internal Medicine Nephrology
DX: A41.9 Sepsis, unspecified organism (principal); J85.0 Gangrene and necrosis of lung; C22.1 Intrahepatic bile duct carcinoma; D84.9 Immunodeficiency, unspecified; K51.90 Ulcerative colitis, unspecified, without complications; C78.00 Secondary malignant neoplasm of unspecified lung; C79.31 Secondary malignant neoplasm of brain; E89.0 Postprocedural hypothyroidism; K21.9 Gastro-esophageal reflux disease without esophagitis; I25.10 Atherosclerotic heart disease of native coronary artery without angina pectoris; I48.91 Unspecified atrial fibrillation; F41.9 Anxiety disorder, unspecified; F32.A Depression, unspecified; Z92.21 Personal history of antineoplastic chemotherapy; Z79.899 Other long term (current) drug therapy; Z96.653 Presence of artificial knee joint, bilateral; Z66 Do not resuscitate; R19.7 Diarrhea, unspecified; Z87.891 Personal history of nicotine dependence

== ENCOUNTER 2022-03-10 17:04 | Inpatient (IN) | payer MEDICARE, OTHER ==
[~2022-03-10] VITALS: Ht 149.9 cm; Wt 57.7 kg
[~2022-03-10 17:04] MED LIST changes: +DICY1CAP8 PO; +DIPH2.5T15 PO; +FENT1DIS14 TOP; +LOVE0.4I2 SQ; +METR-265 PO; +OXYC-403 PO
[2022-03-10] MEDS ORDERED: SODIUM CHLORIDE 0.9% INJ 10 ML SYR IV PRN (18:25)
[2022-03-10 18:37] LABS: HEMOGLOBIN 10.7 g/dl (12.0-15.5); MEAN CORPUSCULAR HEMOGLOBIN 31.6 pg (27.0-33.0); MEAN CORPUSCULAR HGB CONC 31.5 g/dl (32.0-36.5); MEAN CORPUSCULAR VOLUME 100.3 fl (80.0-96.0); PLATELET COUNT, AUTOMATED 172 10^3/uL (150-450); RED BLOOD COUNT 3.39 10^6/uL (4.00-5.40)
[2022-03-10] MEDS ORDERED: IBUPROFEN 600MG TAB PO ONE (18:40)
[2022-03-10 19:00] LABS: WHITE BLOOD COUNT 47.7 10^3/uL (4.0-10.0)
[2022-03-10 19:25] LABS: ALBUMIN 2.6 GM/DL (3.2-5.2); ALT/SGPT 10 U/L (12-78); BILIRUBIN,DIRECT 0.2 MG/DL (0.0-0.2); BILIRUBIN,TOTAL 0.2 MG/DL (0.2-1.0); BLOOD UREA NITROGEN 8 MG/DL (7-18); CALCIUM LEVEL 8.8 MG/DL (8.8-10.2); CARBON DIOXIDE LEVEL 24 MEQ/L (21-32); CHLORIDE LEVEL 103 MEQ/L (98-107); GLOMERULAR FILTRATION RATE > 60.0 (>39); GLUCOSE, FASTING 135 MG/DL (70-100); LIPASE 92 U/L (73-393); POTASSIUM SERUM 2.2 MEQ/L (3.5-5.1); SODIUM LEVEL 138 MEQ/L (136-145); TOTAL PROTEIN 6.6 GM/DL (6.4-8.2)
[2022-03-10 19:30] LABS: LYMPHOCYTES 6 % (16-44); METAMYELOCYTES 1 % (0-0); MONOCYTES 7 % (0-5); MYELOCYTES 1 % (0-0); NEUTROPHILS 85 % (28-66); TOXIC GRANULATION 3+
[2022-03-10 19:31] LABS: PLATELET ESTIMATE NORMAL (NORMAL)
[2022-03-10] MEDS ORDERED: KCL 10MEQ/100ML SWI (KRUN) 10 MEQ in IV 1 EA IV ONE (21:20)
[2022-03-10] MEDS ORDERED: cefTRIAXone SOD 2 GM in D5W MINI-BAG PLUS 50 ML IV ONE (21:20)
[2022-03-10 21:34] LABS: MAGNESIUM LEVEL 1.7 MG/DL (1.8-2.4)
[2022-03-10] MEDS ORDERED: HOME MED LIST COMPLETE! XX SCH (22:40)
[2022-03-10] MEDS ORDERED: DICY10CA13 PO (22:40)
[2022-03-10] MEDS ORDERED: ONDA-84 PO (22:40)
[2022-03-10] MEDS ORDERED: ENOX60IN3 SC (22:40)
[2022-03-10] MEDS: MAG SULF 1GM/100ML (MAG RUN) 1 GM in IV 1 EA IV SCH ×2 (22:58→23:00)
[2022-03-11 00:45] VITALS: BP 105/54
[2022-03-11 00:56] LABS: INR 1.18; PROTHROMBIN TIME 15.2 SECONDS (12.5-14.5)
[2022-03-11 00:57] LABS: PARTIAL THROMBOPLASTIN TIME 38.7 SECONDS (24.8-34.2)
[2022-03-11] MEDS: metroNIDAZOLE 500 MG in IV 1 EA IV SCH ×3 (01:30→17:46)
[2022-03-11 01:42] LABS: BLOOD UREA NITROGEN 9 MG/DL (7-18); CALCIUM LEVEL 8.5 MG/DL (8.8-10.2); CARBON DIOXIDE LEVEL 26 MEQ/L (21-32); CHLORIDE LEVEL 106 MEQ/L (98-107); GLOMERULAR FILTRATION RATE > 60.0 (>39); GLUCOSE, FASTING 130 MG/DL (70-100); POTASSIUM SERUM 2.3 MEQ/L (3.5-5.1); SODIUM LEVEL 138 MEQ/L (136-145)
[2022-03-11] MEDS ORDERED: ENOXAPARIN 60MG/0.6ML SYRINGE (J1650 PER 10MG) SC ONE (02:00)
[2022-03-11] MEDS ORDERED: fentaNYL 25 MCG/HR PATCH TOP PRN (03:00)
[2022-03-11] MEDS: POTASSIUM CHLORIDE 10MEQ SR TABLET PO SCH ×2 (03:07→04:28)
[2022-03-11] MEDS: SODIUM CHLORIDE 0.9% INJ 10 ML SYR IV PRN ×3 (03:07→22:32)
[2022-03-11 05:38] VITALS: BP 121/62
[2022-03-11 05:59] LABS: HEMATOCRIT 32.2 % (36.0-47.0); HEMOGLOBIN 9.9 g/dl (12.0-15.5); MEAN CORPUSCULAR HEMOGLOBIN 31.9 pg (27.0-33.0); MEAN CORPUSCULAR HGB CONC 30.7 g/dl (32.0-36.5); MEAN CORPUSCULAR VOLUME 103.9 fl (80.0-96.0); PLATELET COUNT, AUTOMATED 141 10^3/uL (150-450)
[2022-03-11 06:00] VITALS: BP 121/70
[2022-03-11 06:05] LABS: WHITE BLOOD COUNT 42.3 10^3/uL (4.0-10.0)
[2022-03-11] MEDS: LEVOTHYROXINE 75MCG TABLET (0.075MG) PO SCH (06:40)
[2022-03-11 06:51] LABS: ALBUMIN 2.4 GM/DL (3.2-5.2); ALT/SGPT 7 U/L (12-78); BILIRUBIN,TOTAL 0.2 MG/DL (0.2-1.0); BLOOD UREA NITROGEN 9 MG/DL (7-18); CALCIUM LEVEL 8.5 MG/DL (8.8-10.2); CARBON DIOXIDE LEVEL 29 MEQ/L (21-32); CHLORIDE LEVEL 107 MEQ/L (98-107); CREATININE FOR GFR 0.79 MG/DL (0.55-1.30); GLOMERULAR FILTRATION RATE > 60.0 (>39); GLUCOSE, FASTING 135 MG/DL (70-100); MAGNESIUM LEVEL 2.3 MG/DL (1.8-2.4); POTASSIUM SERUM 3.1 MEQ/L (3.5-5.1); SODIUM LEVEL 141 MEQ/L (136-145); TOTAL PROTEIN 6.2 GM/DL (6.4-8.2)
[2022-03-11] MEDS ORDERED: ISOVUE-370 76% 100ML VIAL As Ordered ONE (07:38)
[2022-03-11] MEDS: SERTRALINE 100 MG TAB PO SCH (09:06)
[2022-03-11] MEDS: SODIUM CHLORIDE 0.9% INJ 10 ML SYR IV SCH (09:07)
[2022-03-11] MEDS: KCL 10MEQ/100ML SWI (KRUN) 10 MEQ in IV 1 EA IV SCH ×2 (09:08→11:52)
[2022-03-11 12:56] LABS: BLOOD UREA NITROGEN 7 MG/DL (7-18); CALCIUM LEVEL 8.5 MG/DL (8.8-10.2); CARBON DIOXIDE LEVEL 25 MEQ/L (21-32); CHLORIDE LEVEL 108 MEQ/L (98-107); GLOMERULAR FILTRATION RATE > 60.0 (>39); GLUCOSE, FASTING 141 MG/DL (70-100); POTASSIUM SERUM 3.3 MEQ/L (3.5-5.1); SODIUM LEVEL 140 MEQ/L (136-145)
[2022-03-11] MEDS ORDERED: FLUBLOK(EGG FREE)(QUAD)INFLUENZA VACC 0.5ML SYRINGE 18YRS & OLDER IM.IMMUN ONE (14:20)
[2022-03-11 14:36] VITALS: BP 118/64
[2022-03-11 15:09] LABS: SOURCE, BODY FLUID pH PLEURAL
[2022-03-11 15:27] LABS: APPEARANCE, BODY FLUID CLOUDY (CLEAR); PLEURAL FL COLOR PALE YELLOW (COLORLESS); SOURCE, BODY FLUID PLEURAL
[2022-03-11 15:59] LABS: AMYLASE, BODY FLUID 25 U/L (NOT ESTABLISHED); CHOLESTEROL, BODY FLUID 58 MG/DL (NOT ESTABLISHED); LDH, BODY FLUID 100 U/L (NOT ESTABLISHED); SOURCE, BODY FLUID ALBUMIN PLEURAL; SOURCE, BODY FLUID AMYLASE PLEURAL; SOURCE, BODY FLUID CHOL PLEURAL; SOURCE, BODY FLUID GLUCOSE PLEURAL; SOURCE, BODY FLUID LDH PLEURAL; SOURCE, BODY FLUID TOT PROTEIN PLEURAL; SOURCE, BODY FLUID TRIG PLEURAL; TOTAL PROTEIN, BODY FLUID 3.6 G/DL (NOT ESTABLISHED); TRIGLYCERIDE, BODY FLUID 23 MG/DL (NOT ESTABLISHED)
[2022-03-11] MEDS ORDERED: ACETAMINOPHEN TAB 650MG DOSE (2X325MG) PO ONE (16:25)
[2022-03-11] MEDS: LACTOBACILLUS ACIDOPHILUS CAP (BACID) PO SCH (17:46)
[2022-03-11 20:00] VITALS: BP 95/62
[2022-03-11] MEDS ORDERED: NS 500 ML IV ONE (20:45)
[2022-03-11] MEDS ORDERED: cefTRIAXone SOD 1 GM in D5W MINI-BAG PLUS 50 ML IV SCH (22:00)
[2022-03-11] MEDS: ACETAMINOPHEN TAB 650MG DOSE (2X325MG) PO PRN (22:30)
[2022-03-11 22:45] VITALS: BP 120/73
[2022-03-12] MEDS: metroNIDAZOLE 500 MG in IV 1 EA IV SCH ×2 (02:33→09:39)
[2022-03-12] MEDS: SODIUM CHLORIDE 0.9% INJ 10 ML SYR IV PRN ×2 (03:53→12:50)
[2022-03-12] MEDS: LEVOTHYROXINE 75MCG TABLET (0.075MG) PO SCH (05:43)
[2022-03-12 06:00] VITALS: BP 121/68
[2022-03-12 07:01] LABS: HEMATOCRIT 31.2 % (36.0-47.0); HEMOGLOBIN 9.5 g/dl (12.0-15.5); MEAN CORPUSCULAR HEMOGLOBIN 31.5 pg (27.0-33.0); MEAN CORPUSCULAR HGB CONC 30.4 g/dl (32.0-36.5); MEAN CORPUSCULAR VOLUME 103.3 fl (80.0-96.0); PLATELET COUNT, AUTOMATED 124 10^3/uL (150-450); RED BLOOD COUNT 3.02 10^6/uL (4.00-5.40)
[2022-03-12 07:10] LABS: INR 1.16; WHITE BLOOD COUNT 36.6 10^3/uL (4.0-10.0)
[2022-03-12 07:11] LABS: PARTIAL THROMBOPLASTIN TIME 35.3 SECONDS (24.8-34.2)
[2022-03-12 07:25] LABS: LYMPHOCYTES 1 % (16-44); MONOCYTES 3 % (0-5); NEUTROPHILS 92 % (28-66)
[2022-03-12 07:26] LABS: ANISOCYTOSIS 1+; PLATELET ESTIMATE DECREASED (NORMAL); POIKILOCYTOSIS 1+
[2022-03-12 07:53] LABS: ALBUMIN 2.3 GM/DL (3.2-5.2); ALT/SGPT 9 U/L (12-78); BILIRUBIN,TOTAL 0.3 MG/DL (0.2-1.0); BLOOD UREA NITROGEN 7 MG/DL (7-18); CALCIUM LEVEL 8.7 MG/DL (8.8-10.2); CARBON DIOXIDE LEVEL 25 MEQ/L (21-32); CHLORIDE LEVEL 111 MEQ/L (98-107); CREATININE FOR GFR 0.76 MG/DL (0.55-1.30); GLOMERULAR FILTRATION RATE > 60.0 (>39); GLUCOSE, FASTING 114 MG/DL (70-100); MAGNESIUM LEVEL 2.1 MG/DL (1.8-2.4); SODIUM LEVEL 142 MEQ/L (136-145); TOTAL PROTEIN 5.9 GM/DL (6.4-8.2)
[2022-03-12] MEDS ORDERED: KCL 10MEQ/100ML SWI (KRUN) 10 MEQ in IV 1 EA IV SCH (08:00)
[2022-03-12] MEDS ORDERED: MEROPENEM INJ 1 GM in IV 1 EA IV SCH (09:05)
[2022-03-12] MEDS: SODIUM CHLORIDE 0.9% INJ 10 ML SYR IV SCH (09:34)
[2022-03-12] MEDS: SERTRALINE 100 MG TAB PO SCH (09:36)
[2022-03-12] MEDS: LACTOBACILLUS ACIDOPHILUS CAP (BACID) PO SCH ×2 (09:36→18:05)
[2022-03-12] MEDS: oxyCODONE 5MG TAB PO PRN ×2 (10:19→18:30)
[2022-03-12] MEDS: ACETAMINOPHEN TAB 650MG DOSE (2X325MG) PO PRN (11:22)
[2022-03-12] MEDS: PIPERACILLIN/TAZOBACTAM SOD 3.375 GM in D5W MINI-BAG PLUS 50 ML IV SCH ×3 (11:22→23:25)
[2022-03-12] MEDS ORDERED: CALCIUM CARBONATE 500 MG CHEW U/D PO ONE (12:30)
[2022-03-12 13:14] LABS: CK-MB VALUE MASS < 1.0 NG/ML (<3.6); CPK CREATINE PHOSPHOKINASE 15 U/L (26-192); MB/CK RELATIVE INDEX 6.67 (< OR =4)
[2022-03-12 14:00] VITALS: BP 100/65
[2022-03-12] MEDS: DOXYCYCLINE HYCLATE 100 MG in D5W MINI-BAG PLUS 100 ML IV SCH (14:42)
[2022-03-12 21:00] VITALS: BP 130/70
[2022-03-13] MEDS: DOXYCYCLINE HYCLATE 100 MG in D5W MINI-BAG PLUS 100 ML IV SCH (02:02)
[2022-03-13 04:25] VITALS: BP 110/64
[2022-03-13] MEDS: LEVOTHYROXINE 75MCG TABLET (0.075MG) PO SCH (05:48)
[2022-03-13] MEDS: PIPERACILLIN/TAZOBACTAM SOD 3.375 GM in D5W MINI-BAG PLUS 50 ML IV SCH (05:48)
[2022-03-13 06:56] LABS: HEMATOCRIT 32.7 % (36.0-47.0); MEAN CORPUSCULAR HEMOGLOBIN 31.4 pg (27.0-33.0); MEAN CORPUSCULAR HGB CONC 30.6 g/dl (32.0-36.5); MEAN CORPUSCULAR VOLUME 102.8 fl (80.0-96.0); PLATELET COUNT, AUTOMATED 124 10^3/uL (150-450); RED BLOOD COUNT 3.18 10^6/uL (4.00-5.40)
[2022-03-13 07:05] LABS: WHITE BLOOD COUNT 36.5 10^3/uL (4.0-10.0)
[2022-03-13 07:27] LABS: ALBUMIN 2.3 GM/DL (3.2-5.2); ALT/SGPT 7 U/L (12-78); BILIRUBIN,TOTAL 0.3 MG/DL (0.2-1.0); BLOOD UREA NITROGEN 8 MG/DL (7-18); CALCIUM LEVEL 8.8 MG/DL (8.8-10.2); CARBON DIOXIDE LEVEL 25 MEQ/L (21-32); CHLORIDE LEVEL 108 MEQ/L (98-107); CREATININE FOR GFR 0.72 MG/DL (0.55-1.30); GLOMERULAR FILTRATION RATE > 60.0 (>39); GLUCOSE, FASTING 110 MG/DL (70-100); MAGNESIUM LEVEL 1.8 MG/DL (1.8-2.4); POTASSIUM SERUM 3.6 MEQ/L (3.5-5.1); SODIUM LEVEL 138 MEQ/L (136-145); TOTAL PROTEIN 6.1 GM/DL (6.4-8.2)
[2022-03-13 07:38] LABS: LYMPHOCYTES 5 % (16-44); METAMYELOCYTES 1 % (0-0); MONOCYTES 2 % (0-5); NEUTROPHILS 85 % (28-66)
[2022-03-13 07:41] LABS: ANISOCYTOSIS 1+; PLATELET ESTIMATE DECREASED (NORMAL)
[2022-03-13 07:42] LABS: POIKILOCYTOSIS 1+; POLYCHROMASIA 1+
[2022-03-13 07:43] LABS: SCHISTOCYTES 1+
[2022-03-13 07:45] LABS: PLATELET CLUMPS SMALL AMT; TEAR DROP CELLS 1+; TOXIC GRANULATION 1+
[2022-03-13] MEDS: SODIUM CHLORIDE 0.9% INJ 10 ML SYR IV SCH (08:39)
[2022-03-13] MEDS: LACTOBACILLUS ACIDOPHILUS CAP (BACID) PO SCH ×2 (09:20→18:09)
[2022-03-13] MEDS: SERTRALINE 100 MG TAB PO SCH (09:20)
[2022-03-13] MEDS: ACETAMINOPHEN TAB 650MG DOSE (2X325MG) PO PRN (09:27)
[2022-03-13] MEDS ORDERED: LevoFLOXacin 750 MG TABLET PO SCH ×2 (10:10→18:00)
[2022-03-13] MEDS ORDERED: FOSFOMYCIN TROMETHAMINE 3 GM POWDER PACKET (MONUROL) PO ONE (12:00)
[2022-03-13 14:00] VITALS: BP 106/58
[2022-03-13 20:02] VITALS: BP 118/70
[2022-03-13] MEDS: oxyCODONE 5MG TAB PO PRN (20:51)
[2022-03-13] MEDS ORDERED: LEVALBUTEROL 1.25 MG/0.5 ML CONCENTRATE NEB INH PRN (21:15)
[2022-03-13] MEDS ORDERED: IPRATROPIUM 0.02% SOLN 0.5MG 2.5ML NEB INH PRN (21:15)
[2022-03-13 21:53] LABS: VENOUS BASE EXCESS -1.4 (-2.0-2.0); VENOUS HCO3 22.2 MEQ/L (23.0-27.0); VENOUS O2 SATURATION 99.2 % (60.0-80.0); VENOUS PARTIAL PRESSURE CO2 33.5 mmHg (38.0-50.0); VENOUS PARTIAL PRESSURE O2 146.7 mmHg (30.0-50.0); VENOUS PH 7.439 UNITS (7.330-7.430); VENOUS STANDARD HCO3 23.3 MEQ/L; VENOUS TOTAL CO2 23.2 MEQ/L (24.0-28.0)
[2022-03-13] MEDS: TEMAZEPAM 7.5 MG CAP PO PRN (23:54)
[2022-03-14 05:34] VITALS: BP_SYST 117; BP_SYST 118; BP_DIAS 69; BP_DIAS 70
[2022-03-14] MEDS: LEVOTHYROXINE 75MCG TABLET (0.075MG) PO SCH (05:35)
[2022-03-14 06:35] LABS: BASO # 0.1 10^3/uL (0.0-0.2); BASO % 0.4 % (0.0-1.0); EOS # 0.3 10^3/uL (0.0-0.5); EOS % 0.8 % (0.0-3.0); HEMATOCRIT 31.7 % (36.0-47.0); HEMOGLOBIN 9.5 g/dl (12.0-15.5); LYMPH # 0.9 10^3/uL (1.5-5.0); LYMPH % 3.2 % (24.0-44.0); MEAN CORPUSCULAR HEMOGLOBIN 31.3 pg (27.0-33.0); MEAN CORPUSCULAR VOLUME 104.3 fl (80.0-96.0); MONO % 5.8 % (2.0-8.0); NEUTROPHILS # 25.1 10^3/uL (1.5-8.5); NEUTROPHILS % 85.4 % (36.0-66.0); PLATELET COUNT, AUTOMATED 150 10^3/uL (150-450); RED BLOOD COUNT 3.04 10^6/uL (4.00-5.40); WHITE BLOOD COUNT 29.4 10^3/uL (4.0-10.0)
[2022-03-14 07:17] LABS: ALBUMIN 2.1 GM/DL (3.2-5.2); ALT/SGPT 7 U/L (12-78); BILIRUBIN,TOTAL 0.2 MG/DL (0.2-1.0); BLOOD UREA NITROGEN 12 MG/DL (7-18); CALCIUM LEVEL 8.5 MG/DL (8.8-10.2); CARBON DIOXIDE LEVEL 27 MEQ/L (21-32); CHLORIDE LEVEL 108 MEQ/L (98-107); CREATININE FOR GFR 0.81 MG/DL (0.55-1.30); GLOMERULAR FILTRATION RATE > 60.0 (>39); GLUCOSE, FASTING 114 MG/DL (70-100); MAGNESIUM LEVEL 1.8 MG/DL (1.8-2.4); POTASSIUM SERUM 3.6 MEQ/L (3.5-5.1); SODIUM LEVEL 138 MEQ/L (136-145)
[2022-03-14] MEDS: SODIUM CHLORIDE 0.9% INJ 10 ML SYR IV SCH (08:14)
[2022-03-14] MEDS: guaiFENesin ER 600 MG TAB PO SCH ×2 (08:19→22:12)
[2022-03-14] MEDS: LACTOBACILLUS ACIDOPHILUS CAP (BACID) PO SCH ×2 (08:19→18:07)
[2022-03-14] MEDS: SERTRALINE 100 MG TAB PO SCH (08:19)
[2022-03-14 08:35] LABS: MONO # 1.7 10^3/uL (0.0-0.8)
[2022-03-14] MEDS ORDERED: ISOVUE-370 76% 100ML VIAL As Ordered ONE (13:55)
[2022-03-14 14:06] VITALS: BP_SYST 100; BP_SYST 102; BP_SYST 99; BP_DIAS 57; BP_DIAS 58
[2022-03-14] MEDS: LevoFLOXacin 750 MG TABLET PO SCH (18:07)
[2022-03-14 20:00] VITALS: BP 100/58
[2022-03-14] MEDS: TEMAZEPAM 7.5 MG CAP PO PRN (22:12)
[2022-03-14] MEDS: sulfaSALAzine 500 MG TABEC PO SCH (22:12)
[2022-03-14] MEDS: oxyCODONE 5MG TAB PO PRN (22:12)
[2022-03-14] MEDS: ENOXAPARIN 60MG/0.6ML SYRINGE (J1650 PER 10MG) SC SCH (22:12)
[2022-03-15 01:20] VITALS: BP 102/58
[2022-03-15] MEDS ORDERED: SODIUM CHLORIDE 0.9% 1000ML IV ONE (01:45)
[2022-03-15 02:40] VITALS: BP 102/59
[2022-03-15] MEDS: LEVOTHYROXINE 75MCG TABLET (0.075MG) PO SCH (05:58)
[2022-03-15 06:00] VITALS: BP 101/58
[2022-03-15 06:33] LABS: BASO # 0.2 10^3/uL (0.0-0.2); BASO % 0.6 % (0.0-1.0); EOS # 0.2 10^3/uL (0.0-0.5); HEMATOCRIT 29.7 % (36.0-47.0); LYMPH % 3.8 % (24.0-44.0); MEAN CORPUSCULAR HEMOGLOBIN 31.7 pg (27.0-33.0); MEAN CORPUSCULAR HGB CONC 30.3 g/dl (32.0-36.5); MEAN CORPUSCULAR VOLUME 104.6 fl (80.0-96.0); MONO % 6.4 % (2.0-8.0); NEUTROPHILS # 21.5 10^3/uL (1.5-8.5); NEUTROPHILS % 85.2 % (36.0-66.0); PLATELET COUNT, AUTOMATED 152 10^3/uL (150-450); RED BLOOD COUNT 2.84 10^6/uL (4.00-5.40); WHITE BLOOD COUNT 25.2 10^3/uL (4.0-10.0)
[2022-03-15 06:36] LABS: MONO # 1.6 10^3/uL (0.0-0.8)
[2022-03-15 07:12] LABS: ALT/SGPT 7 U/L (12-78); BILIRUBIN,TOTAL 0.3 MG/DL (0.2-1.0); BLOOD UREA NITROGEN 11 MG/DL (7-18); CALCIUM LEVEL 8.7 MG/DL (8.8-10.2); CARBON DIOXIDE LEVEL 26 MEQ/L (21-32); CHLORIDE LEVEL 109 MEQ/L (98-107); GLOMERULAR FILTRATION RATE > 60.0 (>39); GLUCOSE, FASTING 102 MG/DL (70-100); MAGNESIUM LEVEL 1.8 MG/DL (1.8-2.4); POTASSIUM SERUM 3.6 MEQ/L (3.5-5.1); SODIUM LEVEL 140 MEQ/L (136-145); TOTAL PROTEIN 5.6 GM/DL (6.4-8.2)
[2022-03-15] MEDS: sulfaSALAzine 500 MG TABEC PO SCH ×2 (07:38→21:01)
[2022-03-15] MEDS: LACTOBACILLUS ACIDOPHILUS CAP (BACID) PO SCH ×2 (07:38→17:28)
[2022-03-15] MEDS: guaiFENesin ER 600 MG TAB PO SCH ×2 (07:38→21:01)
[2022-03-15] MEDS: ENOXAPARIN 60MG/0.6ML SYRINGE (J1650 PER 10MG) SC SCH ×2 (07:38→21:01)
[2022-03-15] MEDS: SERTRALINE 100 MG TAB PO SCH (07:38)
[2022-03-15] MEDS: ACETAMINOPHEN TAB 650MG DOSE (2X325MG) PO PRN ×2 (07:39→21:01)
[2022-03-15] MEDS ORDERED: BISACODYL 10 MG SUPP PR ONE (08:20)
[2022-03-15 14:00] VITALS: BP 104/54
[2022-03-15 14:08] LABS: MYCOPLASMA PNEUMONIAE IgG 149 U/mL (0-99); MYCOPLASMA PNEUMONIAE IgM <770 U/mL (0-769)
[2022-03-15] MEDS: oxyCODONE 5MG TAB PO PRN (14:53)
[2022-03-15] MEDS: LevoFLOXacin 750 MG TABLET PO SCH (17:28)
[2022-03-15] MEDS: TEMAZEPAM 7.5 MG CAP PO PRN (22:06)
[2022-03-16 06:00] VITALS: BP 109/62
[2022-03-16] MEDS: LEVOTHYROXINE 75MCG TABLET (0.075MG) PO SCH (06:05)
[2022-03-16 06:19] LABS: BASO # 0.1 10^3/uL (0.0-0.2); BASO % 0.4 % (0.0-1.0); EOS # 0.2 10^3/uL (0.0-0.5); EOS % 0.8 % (0.0-3.0); HEMATOCRIT 30.6 % (36.0-47.0); HEMOGLOBIN 9.1 g/dl (12.0-15.5); LYMPH # 0.8 10^3/uL (1.5-5.0); LYMPH % 3.6 % (24.0-44.0); MEAN CORPUSCULAR HEMOGLOBIN 31.2 pg (27.0-33.0); MEAN CORPUSCULAR HGB CONC 29.7 g/dl (32.0-36.5); MEAN CORPUSCULAR VOLUME 104.8 fl (80.0-96.0); MONO % 7.7 % (2.0-8.0); NEUTROPHILS # 19.5 10^3/uL (1.5-8.5); NEUTROPHILS % 84.4 % (36.0-66.0); PLATELET COUNT, AUTOMATED 166 10^3/uL (150-450); RED BLOOD COUNT 2.92 10^6/uL (4.00-5.40); WHITE BLOOD COUNT 23.1 10^3/uL (4.0-10.0)
[2022-03-16 06:45] LABS: ALT/SGPT < 6 U/L (12-78); BILIRUBIN,TOTAL 0.3 MG/DL (0.2-1.0); BLOOD UREA NITROGEN 9 MG/DL (7-18); CALCIUM LEVEL 8.8 MG/DL (8.8-10.2); CARBON DIOXIDE LEVEL 27 MEQ/L (21-32); CHLORIDE LEVEL 109 MEQ/L (98-107); GLOMERULAR FILTRATION RATE > 60.0 (>39); GLUCOSE, FASTING 106 MG/DL (70-100); MAGNESIUM LEVEL 1.8 MG/DL (1.8-2.4); POTASSIUM SERUM 3.3 MEQ/L (3.5-5.1); SODIUM LEVEL 142 MEQ/L (136-145); TOTAL PROTEIN 5.8 GM/DL (6.4-8.2)
[2022-03-16] MEDS ORDERED: POTASSIUM CHLORIDE 10MEQ SR TABLET PO ONE (07:15)
[2022-03-16] MEDS: ENOXAPARIN 60MG/0.6ML SYRINGE (J1650 PER 10MG) SC SCH (07:43)
[2022-03-16] MEDS: sulfaSALAzine 500 MG TABEC PO SCH (07:43)
[2022-03-16] MEDS: LACTOBACILLUS ACIDOPHILUS CAP (BACID) PO SCH (07:43)
[2022-03-16] MEDS: SERTRALINE 100 MG TAB PO SCH (07:43)
[2022-03-16] MEDS: guaiFENesin ER 600 MG TAB PO SCH (07:43)
[2022-03-16] MEDS: ACETAMINOPHEN TAB 650MG DOSE (2X325MG) PO PRN (07:44)
[2022-03-16 08:40] LABS: MONO # 1.8 10^3/uL (0.0-0.8)
[2022-03-16] MEDS ORDERED: ONDANSETRON 4MG 2ML VIAL IV ONE (09:25)
[2022-03-16] MEDS ORDERED: ISOVUE-370 76% 100ML VIAL As Ordered ONE (10:52)
[2022-03-16] MEDS ORDERED: LEVO1TAB40 PO (14:55)
[2022-03-16] MEDS ORDERED: RISATAB3 PO (14:55)
[2022-03-16 17:07] LABS: BODY FLUID CULTURE Not indicated. (.); LEGIONELLA ANTIGEN URINE Negative (Negative); ORGANISM ID Not indicated. (.); SPECIMEN SOURCE Urine (.); URINE STREP PNEUMONIAE ANTIGEN Negative (Negative)
== END 2022-03-16 15:02 | disposition home or self-care (01) | DRG 864 ==
LOC: M ED 17:04 → M ED INP 21:52 → ENRESERV 22:43 → M MSPAV 03-11 00:45
PROVIDERS: ADMIT Internal Medicine; ATTEND Internal Medicine
PROC: 0W993ZZ Drainage of Right Pleural Cavity, Percutaneous Approach (ICD-10-PCS; principal; 2022-03-11 13:30)
DX: R50.2 Drug induced fever (principal); N39.0 Urinary tract infection, site not specified; C22.1 Intrahepatic bile duct carcinoma; K51.90 Ulcerative colitis, unspecified, without complications; C78.00 Secondary malignant neoplasm of unspecified lung; C79.31 Secondary malignant neoplasm of brain; J90 Pleural effusion, not elsewhere classified; D84.9 Immunodeficiency, unspecified; A04.72 Enterocolitis due to Clostridium difficile, not specified as recurrent; K21.9 Gastro-esophageal reflux disease without esophagitis; I25.10 Atherosclerotic heart disease of native coronary artery without angina pectoris; G89.29 Other chronic pain; Z86.711 Personal history of pulmonary embolism; E89.0 Postprocedural hypothyroidism; Z92.21 Personal history of antineoplastic chemotherapy; B96.29 Other Escherichia coli [E. coli] as the cause of diseases classified elsewhere; E87.6 Hypokalemia; D64.81 Anemia due to antineoplastic chemotherapy; F32.A Depression, unspecified; F41.9 Anxiety disorder, unspecified; Z66 Do not resuscitate; Z79.899 Other long term (current) drug therapy; Z86.718 Personal history of other venous thrombosis and embolism; Z96.653 Presence of artificial knee joint, bilateral

== ENCOUNTER → 2022-03-29 | Outpatient (CLI) | payer MEDICARE, OTHER ==
[~2022-03-29] MED LIST changes: +DICY10CA13 PO; -DOXY-350 PO; +DOXY-444 PO; +ENOX60IN3 SC; +LEVO1TAB40 PO
[2022-03-29 16:38] LABS: FREE T4 1.55 NG/DL (0.76-1.46); THYROID STIMULATING HORMONE 0.702 uIU/ML (0.358-3.740)
== END ==
LOC: M PLALAB 13:49
PROVIDERS: ATTEND Nurse Practitioner Family
DX: E89.0 Postprocedural hypothyroidism (principal)